=== PATIENT | female | born 1955 | race Caucasian/White ===

== ENCOUNTER → 2017-06-13 08:04 | Outpatient (CLI) | payer MEDICARE, MEDICAID, SELFPAY ==
--- NOTE | 2017-06-13 08:07 | US_ITS ---
STUDY: ABDOMINAL ULTRASOUND REASON FOR EXAM: Female, 61 years old. Elevated liver function tests. Thrombocytopenia. History of breast cancer. TECHNIQUE: Transabdominal ultrasound was performed with real-time and static david scale imaging. TECHNICAL QUALITY: Limited. Examination limited due to obesity. COMPARISON: None. FINDINGS: Liver: The liver measures 17.2 cm. There is increased echogenicity consistent with fatty infiltration. The bile ducts are within normal limits. There is hepatic color flow. The direction of portal flow is hepatopetal. There is no demonstrated mass lesion. Portal vein measurement: Gallbladder: The patient is status post cholecystectomy. Common Bile Duct (C.B.D.): The common bile duct measures 6.0 mm. Pancreas: Normal size of the head, body and tail of the pancreas. There is normal echogenicity of the pancreas. There is no demonstrated pancreatic mass or cyst. Spleen: There is splenomegaly. The spleen measures 13.9 cm x 7.8 cm x 6.7 cm. Right Kidney: Normal size of the right kidney. The right kidney measures 13.4 cm x 5.8 cm x 5.2 cm. Normal renal cortex. The right cortex measures 1.4 cm. There is no demonstrated renal mass or cyst. There is no right hydronephrosis. Left Kidney: Normal size of the left kidney. The left kidney measures 12.0 cm x 5.6 cm x 5.9 cm. Normal renal cortex. The left cortex measures 2.0 cm. There is no demonstrated renal mass or cyst. There is no left hydronephrosis. Aorta: Unremarkable. I.V.C.: The IVC is patent. There is no ascites. US/Abdomen Complete IMPRESSION: Fatty infiltration of the liver. Splenomegaly. Electronically Signed: Tima Aguilar MD at 10:06 EST Tel [phone], Service support ,
== END ==
PROVIDERS: Family Provider Family Medicine; PCP Family Medicine; Visit Provider Nurse Practitioner Family
DX: C50.912 Malignant neoplasm of unspecified site of left female breast (principal); D69.6 Thrombocytopenia, unspecified; R79.89 Other specified abnormal findings of blood chemistry
CPT/HCPCS: 76700

== ENCOUNTER → 2017-06-25 12:18 | Outpatient (CLI) | payer MEDICARE, MEDICAID, SELFPAY ==
--- NOTE | 2017-06-25 12:21 | HPBI_ITS ---
MAMMOGRAPHY - BILATERAL SCREENING REASON FOR EXAM: Female, 61 years old. Routine annual screening examination. PERTINENT HISTORY: Personal history of breast cancer. History of prior left lumpectomy with radiation treatment. Mother with breast cancer. TECHNIQUE: Digital bilateral breast gavi (3D mammographic acquisition) in the CC and MLO projections. 2-D mediolateral oblique (MLO) and craniocaudad (CC) views of both breasts were obtained. CAD: Full Field Digital Mammography with Computer Added Detection was performed. COMPARISON: Comparison is made with prior study dated June 08, 2016 and June 04, 2015. FINDINGS: Breast Composition: There are scattered areas of fibroglandular density. There are no dominant masses or suspicious calcifications. Once again, the patient is status post left lumpectomy with resultant postoperative changes in the deep upper lateral aspect of the left breast. No other significant abnormalities are identified. There has been no significant change since the prior study. HPBI/SCREENING MAMM (CAD), BILAT IMPRESSION: Stable bilateral screening mammogram. Yearly follow-up mammogram recommended. (A) ASSESSMENT CATEGORY: BIRADS Category 2: Benign. A letter regarding these results will be sent to the patient by the facility within 30 days. Approximately 10% of breast cancers are not detected by mammography. A normal mammogram should not delay biopsy of a clinically suspicious abnormality. [id number] Electronically Signed: Tima Aguilar MD at 10:05 EDT Tel [phone], Service support ,
== END ==
PROVIDERS: Family Provider Family Medicine; PCP Family Medicine; Visit Provider Family Medicine
DX: Z12.31 Encounter for screening mammogram for malignant neoplasm of breast (principal)
CPT/HCPCS: 77063; 77067

== ENCOUNTER → 2017-10-04 10:57 | Outpatient (CLI) | payer MEDICARE, MEDICAID, SELFPAY ==
--- NOTE | 2017-10-04 12:01 | RAD_ITS ---
STUDY: X-RAY CHEST REASON FOR EXAM: Female, 61 years old. COUGH X 1 MO. W/ MOIST PHLEGM TECHNIQUE: PA and lateral views of the chest. COMPARISON: March 22, 2017 FINDINGS: There is mild bibasilar atelectasis.. There is no demonstrated pleural abnormality. Normal size heart. Normal mediastinum and tara. Normal visualized pulmonary arteries. Normal visualized aortic arch and descending thoracic aorta. There are diffuse degenerative changes of the visualized thoracic spine. There is a stable thoracic compression fracture. Normal visualized ribs, clavicles, and shoulders. There is no demonstrated abnormality of the visualized soft tissue structures of the upper abdomen. RAD/Chest PA and Lateral IMPRESSION: There is mild bibasilar atelectasis.. Electronically Signed: Ebony Nelson MD at 13:24 EDT , Service support ,
[2017-10-04 12:54] LABS: ALB/GLOB Ratio 0.8 RATIO (0.9-2.4); AST(SGOT) 93 U/L (15-37); Alanine Aminotransfer ALT/SGPT 97 U/L (13-56); Albumin, Serum 3.5 g/dL (3.2-5.0); Alkaline Phosphatase 77 U/L (45-117); Anion Gap 12 (5-15); BUN 46 mg/dL (7-18); BUN/Creat Ratio 36.2 RATIO (10-20); Chloride 101 mmol/L (98-107); Creatinine, Serum 1.27 mg/dL (0.55-1.02); EST Glomerular Filtration Rate 45 mL/min (>60); Est Glom Filt Rate - Afr Amer 55 mL/min (>60); Globulin 4.2 g/dL (2.2-4.2); Glucose 152 mg/dL (74-106); Potassium 3.4 mmol/L (3.5-5.1); Protein, Total 7.7 g/dL (6.4-8.2); Sodium Level 141 mmol/L (136-145)
[2017-10-04 12:58] LABS: Microalbumin,Random Urine 86.6 mg/L (NO RANGE EST.); Microalbumin:Creatinine Ratio 63.2 mg/g CRE (<30 mg/g CRE)
== END ==
PROVIDERS: Family Provider Family Medicine; PCP Family Medicine; Visit Provider Family Medicine
DX: E11.9 Type 2 diabetes mellitus without complications (principal); J44.9 Chronic obstructive pulmonary disease, unspecified
CPT/HCPCS: 36415; 71046; 80053; 82043; 82570

== ENCOUNTER → 2018-06-22 14:43 | Outpatient (CLI) | payer MEDICARE, SELFPAY ==
[2018-06-22 14:45] LABS: Bacteria 0 SEEN /hpf (None Seen); Mucous, Urine 0 SEEN /hpf (<or=2+); Red Blood Cells-Urine 0 SEEN /hpf (0-5)
[2018-06-22 17:59] LABS: Color, Urine Yellow (Yellow); Glucose, Dipstick Normal (Normal); Ketone-Dipstick Negative (Negative); Leukocyte Esterase-Dipstick 500 /ul (Negative); Nitrite-Dipstick Negative (Negative); Occult Blood-Urine Negative /ul (Negative); Protein-Dipstick Negative (Negative); Specific Gravity, Urine 1.015 (1.002-1.030); Urine Bilirubin Dipstick Negative (Negative); Urine Clarity Clear (Clear); Urine Urobilinogen Normal (Normal)
[2018-06-22 18:05] LABS: Squamous Epithelial Cells - UA 0-5 SEEN /hpf (5-10); White Blood Cells 5-10 SEEN /hpf (0-5)
[2018-06-22 18:06] LABS: Hyaline Cast 0-5 SEEN /lpf (0-5)
== END ==
PROVIDERS: Family Provider Family Medicine; PCP Family Medicine; Visit Provider Family Medicine
DX: R30.0 Dysuria (principal)
CPT/HCPCS: 81001; 87086; 87088

== ENCOUNTER → 2018-06-27 14:43 | Outpatient (CLI) | payer MEDICARE, MEDICAID, SELFPAY ==
[2017-12-08 12:57] VITALS: BMI 46.3
--- NOTE | 2018-06-27 14:46 | BI_ITS ---
MAMMOGRAPHY - BILATERAL SCREENING REASON FOR EXAM: Female, 62 years old. Routine annual screening examination. PERTINENT HISTORY: Personal history of breast cancer. Prior left lumpectomy with radiation treatment. Mother with breast cancer. TECHNIQUE: Digital bilateral breast gavi (3D mammographic acquisition) in the CC and MLO projections. 2-D mediolateral oblique (MLO) and craniocaudad (CC) views of both breasts were obtained. CAD: Full Field Digital Mammography with Computer Added Detection was performed. COMPARISON: Comparison is made with prior study dated June 25, 2017 and June 08, 2016. FINDINGS: Breast Composition: There are scattered areas of fibroglandular density. There are no dominant masses or suspicious calcifications. Once again, the patient status post left lumpectomy with resultant postoperative changes in the deep upper lateral aspect of the left breast. There is been no change. No other significant abnormalities are identified. There has been no significant change since the prior study. BI/SCREENING MAMM (CAD), BILAT IMPRESSION: Stable bilateral screening mammogram. Yearly follow-up mammogram recommended. (A) ASSESSMENT CATEGORY: BIRADS Category 2: Benign. A letter regarding these results will be sent to the patient by the facility within 30 days. Approximately 10% of breast cancers are not detected by mammography. A normal mammogram should not delay biopsy of a clinically suspicious abnormality. [id number] Electronically Signed: Tima Aguilar, at 8:57 EDT , Service support ,
--- NOTE | 2018-06-27 14:48 | BD_ITS ---
STUDY: DUAL ENERGY X-RAY ABSORPTIOMETRY / DXA REASON FOR EXAM: Female, 62 years old. The patient is postmenopausal. History of breast cancer. Loss of height. TECHNIQUE: Bone Mineral Density (BMD) measurements of lumbar spine and bilateral hips were obtained. COMPARISON: Comparison is made with prior study dated June 09, 2016. FINDINGS: Lumbar Spine (L1-L4): g/cm2 (1.234) / T-score (0.4) / Z-score (1.8) Findings are suggestive of normal bone density with a low fracture risk. Left Femur Total: g/cm2 (1.010) / T-score (0.0) / Z-score (1.1) Left Femoral Neck: g/cm2 (1.055) / T-score (0.1) / Z-score (1.5) Right Femur Total: g/cm2 (1.005) / T-score (0.0) / Z-score (1.0) Right Femoral Neck: g/cm2 (1.085) / T-score (0.3) / Z-score (1.7) The T-Scores on the most recent prior examination were: Lumbar Spine (L1-L4): There has been worsening of bone density since the previous examination. Left Femur Total: which represents an improvement of 3.4%. Right Femur Total: which represents an improvement of 0.4%. BD/Dexa Bone Density Study IMPRESSION: The patient is considered normal as outlined below according to World Daniel Organization (WHO) criteria with a low fracture risk. There has been improvement of bone density since the previous examination. Reference Information: The T-score is the number of standard deviations above or below the standard which is normal for young adults at their peak bone mineral density. The World Health Organization (WHO) interprets the T-scores as follows: Above -1 Normal bone density Between -1 and -2.5 Osteopenia Equal to / or below -2.5 Osteoporosis As a practical clinical guideline, osteopenia may be graded as follows: Mild -1 through -1.5 Moderate -1.6 through -2.0 Severe -2.1 through -2.4 The Z-score is the number of standard deviations above or below age-matched controls. A Z-score of less than -1.5 would be considered abnormal. References: 1. NIH Osteoporosis and Related Bone Diseases http://www.osteo.org 2. International Society for Clinical Densitometry http://www.iscd.org 3. National Osteoporosis Foundation http://www.nof.org Electronically Signed: Tima Aguilar, at 16:08 EDT , Service support ,
== END ==
PROVIDERS: Family Provider Family Medicine; PCP Family Medicine; Referring Provider Nurse Practitioner Family; Visit Provider Nurse Practitioner Family
DX: Z12.31 Encounter for screening mammogram for malignant neoplasm of breast (principal); Z13.820 Encounter for screening for osteoporosis; Z78.0 Asymptomatic menopausal state; Z79.811 Long term (current) use of aromatase inhibitors
CPT/HCPCS: 77063; 77067; 77080

== ENCOUNTER → 2018-09-21 13:38 | Outpatient (CLI) | payer MEDICARE, SELFPAY ==
[2018-07-31 13:05] VITALS: BMI 45.3
--- NOTE | 2018-09-21 13:42 | ECHOCS_ITS ---
Reason For Study: PHTN Procedure This was a 2D Doppler, Color Flow transthoracic echocardiogram. Unable to perform strain analysis d/t poor acoustic windows. Contrast injection was performed. Poor parasternal images. Technically difficult study d/t body habitus. Exam performed in department. Left Ventricle Normal size and thickness. The estimated ejection fraction is 60 %. Stage 1 diastolic dysfunction. No regional wall motion abnormalities noted. Right Ventricle Normal size and thickness. Normal systolic function. Atria The left atrium is mildly enlarged. Normal right atrium. Normal atrial septum. Mitral Valve The mitral valve is structurally normal. No prolapse or stenosis seen. Tricuspid Valve Normal tricuspid valve. Unable to estimate RV systolic pressure due to inadequate jet, pulmonary artery pressure probably normal. Aortic Valve Normal aortic valve. Trisinus/trileaflet aortic valve. Pulmonic Valve The pulmonic valve is not well visualized. Great Vessels Normal aortic root. Normal arch. Normal inferior vena cava. No collapse of the inferior vena cava. Pericardium/Pleural No pericardial effusion. Medication 22 gauge I.V. with prn adaptor inserted into right arm. Diluted definity 4ml given slow IV push to enhance endocardial definition. MMode/2D Measurements & Calculations LVIDd: 4.3 cm IVSd: 0.71 cm Ao root diam: 3.2 cm LVIDs: 3.1 cm LVPWd: 0.92 cm RVDd: 2.7 cm FS: 28.6 % LAV(MOD-bp): 66.6 ml EDV(MOD-sp4): 91.4 ml EDV(MOD-sp2): 66.7 ml LAV(MOD-bp) Indexed: 26.4 ml/m2 ESV(MOD-sp4): 32.9 ml EF(MOD-sp2): 55.8 % LAV(MOD-sp2): 69.7 ml EF(MOD-sp4): 64.0 % LAV(MOD-sp4): 67.0 ml SV(MOD-sp4): 58.5 ml SV(MOD-sp2): 37.2 ml LA A4 area: 22.6 cm2 LA dimension(2D): 3.6 cm RA A4 area: 14.7 cm2 Time Measurements MV dec time: 0.25 sec Doppler Measurements & Calculations MV E max horacio: 74.3 cm/sec Lat Peak E' Horacio: 5.8 cm/sec Med Peak E' Horacio: 4.1 cm/sec MV A max horacio: 99.7 cm/sec E/E' lat: 12.9 E/E' med: 17.9 MV E/A: 0.75 Ao V2 max: 133.2 cm/sec LV V1 max: 110.4 cm/sec Ao max P.1 mmHg LV V1 max P.9 mmHg Interpretation Summary The estimated ejection fraction is 60 %. Stage 1 diastolic dysfunction. Unable to estimate RV systolic pressure due to inadequate jet, pulmonary artery pressure probably normal. Compared to echo report dated 01/02/2016, LV function has remained the same. Consider RHC if clinically indicated for pulmonary HTN. The study was technically difficult. Contrast injection was performed. Ordering Physician: Quincy Hemphill Referring Physician: SHALA TRAN Performed By: Sofia Hester, NICOLA, RVT
== END ==
PROVIDERS: Family Provider Family Medicine; PCP Family Medicine; Referring Provider Internal Medicine Cardiovascular Disease; Visit Provider Internal Medicine Cardiovascular Disease
DX: I27.20 Pulmonary hypertension, unspecified (principal)
CPT/HCPCS: 93306; Q9957; A4216; C8929

== ENCOUNTER → 2018-10-31 12:22 | Outpatient (CLI) | payer MEDICARE, SELFPAY ==
[2018-10-12 11:31] VITALS: BMI 45.3
--- NOTE | 2018-10-31 12:23 | US_ITS ---
STUDY: ULTRASOUND TRANSVAGINAL CLINICAL: Female, 62 years old. Postmenopausal bleeding TECHNIQUE: Transabdominal and Transvaginal COMPARISON: None. FINDINGS: Normal uterine size measuring 4.7 x 3.5 x 1.8 cm. There are no myometrial masses. Normal endometrial thickness measuring 4 mm. There are no endometrial masses, and there is no fluid in the endometrial cavity. The endometrium is hyperechoic. Normal right ovary, measuring 2.2 x 2.1 x 1.3 cm. Normal left ovary, measuring 2.1 x 1.7 x 1.5 cm. There is no free fluid in the pelvis. Polycystic ovary disease: No. US/Pelvic (Non ) IMPRESSION: Cervical nabothian cyst. The uterus and ovaries appear within normal limits. Electronically Signed: Abhijit Dykes MD at 17:32 EDT , Service support ,
--- NOTE | 2018-10-31 12:23 | US_ITS ---
STUDY: ULTRASOUND TRANSVAGINAL CLINICAL: Female, 62 years old. Postmenopausal bleeding TECHNIQUE: Transabdominal and Transvaginal COMPARISON: None. FINDINGS: Normal uterine size measuring 4.7 x 3.5 x 1.8 cm. There are no myometrial masses. Normal endometrial thickness measuring 4 mm. There are no endometrial masses, and there is no fluid in the endometrial cavity. The endometrium is hyperechoic. Normal right ovary, measuring 2.2 x 2.1 x 1.3 cm. Normal left ovary, measuring 2.1 x 1.7 x 1.5 cm. There is no free fluid in the pelvis. Polycystic ovary disease: No. US/Transvaginal Non- IMPRESSION: Cervical nabothian cyst. The uterus and ovaries appear within normal limits. Electronically Signed: Abhijit Dykes MD at 17:32 EDT , Service support ,
== END ==
PROVIDERS: Family Provider Family Medicine; PCP Family Medicine; Referring Provider Urology; Visit Provider Urology
DX: N95.0 Postmenopausal bleeding (principal)
CPT/HCPCS: 76830; 76856

== ENCOUNTER → 2019-01-09 12:41 | Outpatient (CLI) | payer MEDICARE, SELFPAY ==
[2018-10-12 11:31] VITALS: BMI 45.3
[2018-12-12 13:23] VITALS: BMI 45.3
--- NOTE | 2019-01-09 12:43 | CT_ITS ---
STUDY: CT ABDOMEN AND PELVIS WITH CONTRAST REASON FOR EXAM: Female, 63 years old. Breast cancer restaging RADIATION DOSAGE (If Supplied By Facility): CTDIvol = ( 18.56 ) mGy, DLP = ( 2565.13 ) mGycm TECHNIQUE: Transaxial images were obtained from the dome of the diaphragm to the symphysis pubis with oral contrast. Oral and amp; IV Readi-CAT and amp; 100mL Isovue-300 100 was administered. Sagittal and coronal images were reconstructed. Individualized dose optimization techniques were used for this CT. COMPARISON: None. FINDINGS: There is a right lung base pulmonary nodule measuring 5.6 mm. , When compared to the more recent study there is several calcific nodular densities within the right lower lobe which will be described on the dedicated CT scan of the chest. The visualized portions of the heart are within normal limits. Normal liver. Normal gallbladder and extrahepatic biliary system. Normal spleen. Normal pancreas. Normal bilateral adrenal glands. Normal right kidney. Normal left kidney. Normal visualized stomach. Normal small intestine. There is mild to moderate stool in the colon. There is diverticulosis without visualized diverticulitis. The appendix is visualized and appears normal. The aorta is partially calcified. Normal inferior vena cava. Normal retroperitoneum. Normal urinary bladder. There is atrophy of the uterus. Normal abdominal wall. There is chronic appearing loss of height at L1 with osteophyte formation. There is anterior wedging of at least 50%. At each level there is degenerative disc disease with neural foramina narrowing. At L3-L4 L4-L5 there is facet arthropathy severe neural foramina narrowing severe central stenosis. See image #63 and 72 at L5-S1 there is a broad disc bulge facet arthropathy. There is degenerative change of the SI joints. There is moderate to severe narrowing of the right greater than left hip joints. No visualized lytic or sclerotic lesions. Axial views. CT/Abdomen/Pelvis WITH Contrast IMPRESSION: At the time of this study the comparison CT chest August 31, 2013 is unavailable. This should be obtained and used to compare for the CT scan of the chest. There are multiple small nodules within the right lower lobe that accompany the one that is seen on the CT scan of the abdomen and pelvis. Prior study CT scan chest August 31, 2013 describes nodules. Comparison is warranted. [id number] constipation. Diverticulosis no evidence of diverticulitis. Advanced degenerative change of the thoracolumbar spine as detailed above. Chronic loss of height at the level of L1. No visualized metastatic disease to the liver or adrenal glands. No visualized significant mesenteric or retroperitoneal lymphadenopathy. Electronically Signed: Joy Valdivia MD at 17:39 EDT Tel , Service support ,
--- NOTE | 2019-01-09 12:43 | CT_ITS ---
STUDY: CT CHEST WITH CONTRAST REASON FOR EXAM: Female, 63 years old. Restaging breast cancer RADIATION DOSAGE (If Supplied By Facility): CTDIvol = ( 18.56 ) mGy, DLP = ( 2565.13 ) mGycm TECHNIQUE: Transaxial imaging was performed following intravenous administration of IV Isovue 300 100. Multiplanar coronal and sagittal images were reformatted. Individualized dose optimization techniques were used for this CT. COMPARISON: August 31, 2013 CT scan chest FINDINGS: There is a focus of scarring in the left apex image #33 which could be associated with history of radiation therapy. Within the posterior aspect of the left breast tissue there is a focus of soft tissue density measuring 2.1 x 1.3 cm which is deep to a skin fold. The scarring in the left upper lobe is in a similar location or level which may indicate radiation change. However there is a focal nodular density within the left upper lobe that measures 7.1 x 7.8 mm image #43 axial views. There are small nodular densities within the left lower lobe ranging in size from 4.4 mm to 5.3 mm. Within the right lower lobe there is a small nodule that measures 7.3 mm. There is no demonstrated pleural abnormality. There is trace coronary calcification. There is a trace pericardial effusion. Normal mediastinum. Normal hilar regions. Normal enhanced pulmonary arteries. Normal aorta arch and descending thoracic aorta. There are multi-level degenerative changes of the thoracic spine. There is no demonstrated abnormality of the visualized upper abdomen. CT/Chest WITH Contrast IMPRESSION: There is scarring in the left apex which may be associated with radiation change noting that there is a focus of probable scarlike density within the left breast tissue which may represent a focus of prior radiation change. This left breast focus is smaller than the prior study August 31, 2013 when it measured 6.5 x 2.7 cm. Recommend correlation with mammographic findings to evaluate for stability of the 2.1 x 1.3 cm density in the left breast. There are visualized focal filling defects within the left upper lobe bronchi see image #54. There is a focal nodular appearing filling defect image #54 with a opacified appearance of the associated bronchus of the left upper lobe. Again this could be related to scarring endobronchial mass or infiltrative process is not excluded. These were not seen on the prior study. Recommend consideration for bronchoscopy. . There are multiple nodular densities within the left lower lobe. Only one appears stable when compared to the prior study that is seen in the left lower lobe. Otherwise there are numerous nodular densities that were not seen on the prior study or larger which raises concern for the possibility of metastatic disease in this setting. Recommend consideration for PET scan. Electronically Signed: Joy Valdivia MD at 1:25 EDT Tel , Service support ,
[2019-01-09 12:55] LABS: CREATININE FINGERSTICK 1.3 mg/dL (0.55-1.02)
== END ==
PROVIDERS: Family Provider Family Medicine; PCP Family Medicine; Referring Provider Internal Medicine Medical Oncology; Visit Provider Internal Medicine Medical Oncology
DX: Z01.812 Encounter for preprocedural laboratory examination (principal); C50.812 Malignant neoplasm of overlapping sites of left female breast; K59.00 Constipation, unspecified; Z92.3 Personal history of irradiation
CPT/HCPCS: 71260; 74177; Q9967; A4216

== ENCOUNTER 2019-02-06 09:18 | Day surgery (SDC) | payer MEDICARE, SELFPAY ==
[2019-01-22 15:03] VITALS: BMI 45.1
--- NOTE | 2019-02-06 | IMM_PTH ---
PATIENT: VIOLETA RODRIGUEZ LOC: [facility] U#:[id number] AGE/SX: 63/F ROOM: RE02/06/[address]: Dr. Jaylene Akhtar MD : 1955 BED: DIS: 02/06/2019 SPEC #: [id number] RECD: 02/07/19 13:09 STATUS: MIRA REQ #: [id number] [place]: 02/06/19 00:[address]: Jaylene Akhtar DEPT: IMMUNOHISTOCHEMISTRY RECD BY: Lexie Faustin ENTERED: 02/07/19 13:09 SP TYPE: IMMUNO OTHR DR: Dr. Agnes Hernandez, DO Tissues: Endometrium, NOS Procedures: p16 (initial) KI-67 (add) PHYSICIAN & INSTITUTION [place] [id number] SPECIMEN INFORMATION: Tissue Source: Endometrial curettings Clinical Info: Postmenopausal bleeding Specimen Number: [id number] CPT code: 52251, 20247 METHODOLOGY: Deparaffinized sections of prefer/formalin-fixed tissue or PAP/DQ stained slides are incubated with monoclonal/polyclonal antibodies/oligonucleotide probes. Localization is made via biotin free immunoperoxidase method. Appropriate controls are performed and reacted as expected. Results on target cell population are indicated in the following table: RESULTS: ANTIBODY / CLONE RESULT P16 (E6H4) noncontributory Ki-67 (30-9) noncontributory These tests were developed and their performance characteristics determined by [facility]. They may not have been cleared or approved by the U.S. Food and Drug Administration. The FDA has determined that such clearance or approval is not necessary. The above immunohistochemical/dualISH markers are ordered and reviewed by the Pathologist. INTERPRETATION: Endometrial curettings: Fragment of benign endometrial tissue consistent with atrophic endometrium. Fragments of benign ecto- and endocervical epithelium. See comment. GABO:dax 02/08/19 Comment: The fragment of squamous epithelium with transitional cell metaplasia is not present in the IHC slides.
--- NOTE | 2019-02-06 05:30 | PCM.HPOB.BLA ---
- Problem List (1) Postmenopausal bleeding Status: Acute Comment: plan d and c hysteroscopy, may be combo case with cj if she recommends surgery? (2) History of left breast cancer Status: Chronic History and Physical Date of Admission: 02/06/19 Intake Vital Signs 01/22/19 Height 5 ft 9 in 01/22/19 Weight: 314 lb 01/22/19 Body Mass Index (BMI) 46.3 01/22/19 Blood Pressure 110/64 Intake Visit Reasons: Discuss D&C Chief Complaint: discuss D&C Senior Payroll Administrator Required: No Is patient in pain?: No Allergies codeine Allergy (Severe, Verified 01/22/19 14:43) MEMORY LOSS egg Allergy (Severe, Verified 01/22/19 14:43) FLU SYMTOPMS, WEEKNESS morphine Allergy (Severe, Verified 01/22/19 14:43) CARDIAC ARREST venom-honey bee [bee venom (honey bee)] Allergy (Severe, Verified 01/22/19 14:43) STOP BREATHING vortioxetine [From Brintellix] Allergy (Severe, Verified 01/22/19 14:43) LEGS FELT ON FIRE acetaminophen [From Vicodin] Allergy (Unknown, Verified 01/22/19 14:43) Unknown aspirin Allergy (Unknown, Verified 01/22/19 14:43) Unknown hydrocodone [From Vicodin] Allergy (Unknown, Verified 01/22/19 14:43) PATEINT DOES NOT REMEMBER hydrocodone bitartrate [From Vicodin] Allergy (Unknown, Verified 01/22/19 14:43) PATIENT DOES NOT REMEMBER Penicillins Allergy (Unknown, Verified 01/22/19 14:43) Hives propoxyphene napsylate [From Darvocet-N 100] Allergy (Unknown, Verified 01/22/19 14:43) PATEINT DOES NOT REMEMBER FLU SHOT Allergy (Severe, Uncoded 01/22/19 14:43) BECARE DEHYDRATED Medications Albuterol Sulfate [Proventil Hfa] 6.7 gm IH Q4H PRN 07/12/13 [History Confirmed 01/22/19] Atorvastatin Calcium [Lipitor] 40 mg PO QHS 07/12/13 [History Confirmed 01/22/19] Calcium Carbonate [Tums] 500 mg PO DAILY@0800 07/12/13 [History Confirmed 01/22/19] Multivit-Min/FA/Lycopene/Lut [Centrum Silver Tablet] 1 ea PO DAILY 07/12/13 [History Confirmed 01/22/19] Ranitidine [Zantac] 150 mg PO DAILY 07/12/13 [History Confirmed 01/22/19] Valsartan/Hydrochlorothiazide [Diovan Hct 80-12.5 MG Tablet] 1 tab PO DAILY 07/12/13 [History Confirmed 01/22/19] Aripiprazole [Abilify] 2 mg PO DAILY 01/27/16 [History Confirmed 01/22/19] Doxepin HCl [Sinequan] 75 mg PO QHS 01/27/16 [History Confirmed 01/22/19] Meclizine HCl [Antivert] 25 mg PO TID PRN PRN 01/27/16 [History Confirmed 01/22/19] [place]-3 Fatty Acids/Fish Oil [Fish Oil 1,000 mg Capsule] 2 ea PO BID 01/27/16 [History Confirmed 01/22/19] Diclofenac [Voltaren] 75 mg PO BIDCM 06/08/17 [History Confirmed 01/22/19] glipiZIDE [Glucotrol] 5 mg PO DAILY@0730 06/08/17 [History Confirmed 01/22/19] Gabapentin [Neurontin] 1,200 mg PO TIDCM 06/15/17 [History Confirmed 01/22/19] Oxybutynin Chloride [Ditropan Xl] 5 mg PO DAILY 06/15/17 [History Confirmed 01/22/19] desvenlafaxine ER 50 mg tablet,extended release 24 hour 100 mg PO DAILY tab 07/21/17 [History Confirmed 01/22/19] metformin ER 750 mg tablet,extended release 24 hr 1,000 mg PO BID 07/21/17 [History Confirmed 01/22/19] Mirabegron [Myrbetriq] 25 mg PO 12/08/17 [History Confirmed 01/22/19] furosemide 20 mg tablet 40 mg PO DAILY tab 07/31/18 [History Confirmed 01/22/19] Colchicine [Mitigare] 0.6 mg PO 10/12/18 [History Confirmed 01/22/19] Indomethacin 50 mg PO TID 10/12/18 [History Confirmed 01/22/19] mirabegron ER 50 mg tablet,extended release 24 hr 50 mg PO DAILY 12/12/18 [History Confirmed 01/22/19] Is last menstrual period known: No Post menopausal: Yes Patient : No : No PFSH Medical History Hypertension (Chronic) Hyperlipidemia (Chronic) Bipolar disorder (Chronic) Bowel obstruction (Chronic) COPD (chronic obstructive pulmonary disease) (Chronic) Depression (Chronic) Diabetes mellitus (Chronic) GERD (gastroesophageal reflux disease) (Chronic) Hernia (Chronic) Sleep apnea (Chronic) Breast cancer (Resolved) Surgical History History of cholecystectomy (Chronic) History of dental surgery (Chronic) History of hernia repair (Chronic) History of left heart catheterization (Chronic 01/28/16) History of lumpectomy of left breast (Chronic) LEFT EYE SURGERY (Chronic) Family History Mother Breast cancer, Onset Age: 65 Thyroid disorder Glaucoma Diabetes Hypertension Father , Age 49 (Mi age 48) CAD (coronary artery disease) Myocardial infarction, Onset Age: 48 Diabetes Uncle , of Myocardial infarctions CAD (coronary artery disease) Myocardial infarction Grandmother CVA (cerebral vascular accident) Social History (Updated 01/22/19 @ 15:03 by Jaylene Akhtar MD) number of children: 0 current occupational status: disabled Smoking Status: Former smoker alcohol intake: current alcohol intake frequency: holidays/special occasions only seatbelt use: always do you feel safe at home: Yes HPI Discuss D&C: Details: VIOLETA RODRIGUEZ is a 63 year old who presents for fu of postmenopausal bleeding. she had one episode of brwon discharge. she has seen dr corona in the past. she has an appointment with her next month with her. she is wnting to have evaluation Female Reproductive History Questions: Sexually active: No Pregancy History 0 Elective abortions Hx Para Spontaneous abortions Hx # Term Pregnancies Ectopic pregnancies Hx # Pregnancies Multiple births # of living children ROS Const Constitutional: Denies fatigue, fever(s), headache(s), increased appetite, poor appetite, weight gain or weight loss ENT ENT: Denies dry mouth GI GI: Reports as per HPI; denies abdominal pain, constipation, nausea or vomiting : Denies nipple discharge Skin Skin/Breast: Denies hair loss, change in hair, dry skin, breast lump, breast pain, breast skin changes or nipple discharge Exam Const General: cooperative, healthy appearing, comfortable, no acute distress, well developed HENMT Head: normal to inspection, normocephalic Ears: hearing grossly normal bilaterally, external ears normal Nose: external nose normal, nares normal Face and sinus: normal facial exam Neck Neck: normal visual inspection, no lymphadenopathy, trachea midline Thyroid: thyroid normal Resp Effort & Inspection: normal respiratory effort Musc Other: gross motor intact no deficits, full bilateral strength Skin General: no rashes or lesions noted Neuro Motor: muscle tone normal throughout Assessment & Plan Problems 1. Postmenopausal bleeding N95.0 plan d and c hysteroscopy, may be combo case with cj if she recommends surgery? Plan After discussing the patient's diagnosis and treatment plan options, patient wishes to proceed with surgical management. I have discussed with the patient the risks, benefits, and alternatives of the procedure which include but are not limited to risks of anesthesia, bleeding, infection, possible damage to bowel, bladder, or surrounding vasculature which could lead to additional surgery to evaluate any complications. Patient agrees to procedure and wishes to proceed. ACOG/uptodate references given for additional information regarding procedure. Coding Level of Care Code Off vis,est,level 4 Diagnoses Postmenopausal bleeding N95.0
--- NOTE | 2019-02-06 09:35 | EKG12_ITS ---
Test Reason : PRE-OP Blood Pressure : / mmHG Vent. Rate : 087 BPM Atrial Rate : 087 BPM P-R Int : 184 ms QRS Dur : 116 ms QT Int : 386 ms P-R-T Axes : 045 -43 011 degrees QTc Int : 464 ms Normal sinus rhythm Left axis deviation Incomplete left bundle branch block Abnormal ECG When compared with ECG of 12-JUL-2013 12:57, Incomplete left bundle branch block is now Present Borderline criteria for Lateral infarct are no longer Present Confirmed by DAIN CORDOBA, FRANCISCO ([id number]), supervising editor trailer ZULAY ORTEZ ([id number]) on 02/09/2019 11:40:10 AM Referred By: Jaylene Akhtar Confirmed By:FRANCISCO GAUTAM MD
[2019-02-06 09:47] VITALS: BP 148/84; PULSE 87; RESP 16; TEMP 36.5; O2SAT 93; BMI 45.7
[2019-02-06] MEDS: Lactated Ringers 1,000 ML 100 ML IV (09:56)
[2019-02-06 10:07] LABS: Hematocrit 38.2 % (37-47); Hemoglobin 12.6 g/dL (12.0-15.0); Mean Corpuscular Hgb 29.4 pg (27.0-32.0); Mean Corpuscular Volume 89.3 fL (81-99); Mean Platelet Vol. 9.9 fl (6.2-12.0); Platelet Count 174 K/mm3 (150-450); RBC Distribution Width CV 13.2 % (11.6-14.6); RBC Distribution Width SD 43.1 fl (35.1-43.9); Red Blood Count 4.28 M/mm3 (4.2-5.4); White Blood Count 5.6 K/mm3 (4.4-11.0)
[2019-02-06 10:28] LABS: Anion Gap 10 (5-15); BUN 40 mg/dL (7-18); BUN/Creat Ratio 35.1 RATIO (10-20); Calcium,Total 9.4 mg/dL (8.5-10.1); Chloride 102 mmol/L (98-107); Creatinine, Serum 1.14 mg/dL (0.55-1.02); EST Glomerular Filtration Rate 51 mL/min (>60); Est Glom Filt Rate - Afr Amer 62 mL/min (>60); Estimated Creatinine Clearance 52.79 ml/min; Glucose 135 mg/dL (74-106); Potassium 3.6 mmol/L (3.5-5.1); Sodium Level 140 mmol/L (136-145)
[2019-02-06 10:36] LABS: Bedside Glucose 136 mg/dL (70-110)
--- NOTE | 2019-02-06 10:45 | EMB_PTH ---
PATIENT: VIOLETA RODRIGUEZ LOC: [facility] [place] U#:[id number] AGE/SX: 63/F ROOM: RE02/06/[address]: Dr. Jaylene Akhtar MD : [id number] BED: DIS: 02/06/2019 SPEC #: [id number] RECD: 02/06/19 14:27 STATUS: MIRA GAMALIEL #: [id number] LAWRENCE: 02/06/19 10:[address]: Jaylene Akhtar DEPT: SURGICAL PATHOLOGY RECD BY: Rosa Garcia ENTERED: 02/06/19 14:40 SP TYPE: ENDOM BX/C LEEROY DR: Dr. Agnes Hernandez DO Tissues: Endometrium, NOS Procedures: Surgery Specimen Level IV HEADER OPERATION: Hysteroscopy, dilation and curettage PRE-OP DIAGNOSIS: Postmenopausal bleeding TISSUE SUBMITTED: Endometrial curettings MICROSCOPIC DIAGNOSIS Endometrial curettings: Strips of benign endometrial epithelium and superficial fragments of benign endometrial tissue, consistent with atrophic endometrium. Fragments of benign ecto- and endocervical epithelium with focal transitional cell metaplasia. Negative for dysplasia. See comment. GABO:dax 02/07/19 COMMENT Immunohistochemistry ([id number]) for surrogate HPV marker (p16) is non-contributory, the fragment of squamous epithelium with transitional cell metaplasia is not present in the IHC slides. Correlation with clinical findings and appropriate follow up are necessary. MICROSCOPIC DESCRIPTION Slides are reviewed. GROSS DESCRIPTION Received in fixative is one container labeled with the patient's name and designated endometrial curettings. The specimen consists of multiple fragments of hemorrhagic mucoid tissue that in aggregate measure 2.5 x 2.5 x <0.1 cm. The specimen is totally submitted in one cassette. / GABO:dax 02/06/19 TC:5 CPT: 75796
--- NOTE | 2019-02-06 11:55 | PCM.OPRPT ---
Problem List (1) Postmenopausal bleeding Status: Acute Comment: plan d and c hysteroscopy, may be combo case with cj if she recommends surgery? (2) History of left breast cancer Status: Chronic Report of Operation Date of Procedure: 02/06/19 Pre-Operative Diagnosis: postmenopausal bleeding Post-Operative Diagnosis: same Surgery/Procedure Performed:: d and c hysteroscopy Description of Surgical Findings:: Thin atrophic lining Type of Anesthesia:: Local MAC Special Medications: none Specimen's removed: EMC Drains: none Fluids Replaced: crystalloid Description of Procedure: Patient was prepped and draped in a normal sterile fashion under MAC anesthesia. A weighted speculum was placed in the vagina and the anterior lip of the cervix was grasped with a single-tooth tenaculum. A paracervical block was placed with 1% lidocaine. Cervix was progressively dilated to allow passage of a 5 mm hysteroscope. The lining was fully visualized and noted to have a thin lining . Uterine sounded to 7 cm. Curettage was performed and [ ] , sent to pathology. All instruments were removed from the vagina and excellent hemostasis was noted. Patient was awoken and taken to recovery in stable condition. Grafts/Implants Used: none - Complications none - Admit VTE Documentation VTE Present on Admission: No VTE Mechan Device Prophylaxis: SCD's Multi Select Codes - Urinary/Genital Urinary/Genital CPT Codes: 93046 Hysteroscopy, diagnostic
--- NOTE | 2019-02-06 11:56 | DCINST_ITS ---
Discharge Diet: No Restrictions Discharge Activity: Return to Normal Activity, May Shower, May Take a Tub Bath Allergies/Adverse Reactions: Allergies codeine Allergy (Severe, Verified 02/06/19 09:46) MEMORY LOSS egg Allergy (Severe, Verified 02/06/19 09:46) FLU SYMTOPMS, WEEKNESS morphine Allergy (Severe, Verified 02/06/19 09:46) CARDIAC ARREST venom-honey bee [bee venom (honey bee)] Allergy (Severe, Verified 02/06/19 09:46) STOP BREATHING vortioxetine [From Brintellix] Allergy (Severe, Verified 02/06/19 09:46) LEGS FELT ON FIRE acetaminophen [From Vicodin] Allergy (Unknown, Verified 02/06/19 09:46) Unknown PATIENT DOES NOT KNOW aspirin Allergy (Unknown, Verified 02/06/19 09:46) Unknown PATIENT WAS ADVISED BY STUDIO DATA ANALYST NOT TO TAKE hydrocodone [From Vicodin] Allergy (Unknown, Verified 02/06/19 09:46) PATEINT DOES NOT REMEMBER PATIENT DOES NOT KNOW hydrocodone bitartrate [From Vicodin] Allergy (Unknown, Verified 02/06/19 09:46) PATIENT DOES NOT REMEMBER PATIENT DOES NOT KNOW Penicillins Allergy (Unknown, Verified 02/06/19 09:46) Hives PATIENT DOES NOT REMEMBER propoxyphene napsylate [From Darvocet-N 100] Allergy (Unknown, Verified 02/06/19 09:46) PATEINT DOES NOT REMEMBER FLU SHOT Allergy (Severe, Uncoded 02/06/19 09:46) BECARE DEHYDRATED Medications to take at Discharge Albuterol Sulfate [Proventil Hfa] 6.7 gm IH Q4H PRN 07/12/13 Atorvastatin Calcium [Lipitor] 40 mg PO QHS 07/12/13 Multivit-Min/FA/Lycopene/Lut [Centrum Silver Tablet] 1 ea PO DAILY 07/12/13 Ranitidine [Zantac] 150 mg PO DAILY 07/12/13 Valsartan/Hydrochlorothiazide [Diovan Hct 80-12.5 MG Tablet] 1 tab PO DAILY 07/12/13 Aripiprazole [Abilify] 5 mg PO DAILY 01/27/16 Doxepin HCl [Sinequan] 75 mg PO QHS 01/27/16 [place]-3 Fatty Acids/Fish Oil [Fish Oil 1,000 mg Capsule] 2 ea PO BID 01/27/16 Diclofenac [Voltaren] 75 mg PO BIDCM 06/08/17 glipiZIDE [Glucotrol] 5 mg PO DAILY@0730 06/08/17 Gabapentin [Neurontin] 6 mg PO BID 06/15/17 desvenlafaxine ER 50 mg tablet,extended release 24 hour 100 mg PO DAILY tab 07/21/17 metformin ER 750 mg tablet,extended release 24 hr 1,000 mg PO BID 07/21/17 furosemide 20 mg tablet 40 mg PO DAILY tab 07/31/18 mirabegron ER 50 mg tablet,extended release 24 hr 100 mg PO DAILY 12/12/18 Gabapentin [Neurontin] 800 mg PO QHS 01/30/19 Indomethacin [Indocin] 50 mg PO PRN PRN 01/30/19 Primary Care Physician: Agnes Hernandez DO [Primary Care Provider] - Test Results: Test results from this visit will be discussed in further detail at your follow- up appointment, if applicable. Please Follow Up With: Jaylene Akhtar MD - [phone]
[2019-02-06 13:07] VITALS: BP 148/84; BP 185/89; PULSE 81; RESP 16; TEMP 36.5; O2SAT 94
[2019-02-06 13:11] VITALS: BP 138/73; BP 148/84; PULSE 81; RESP 16; O2SAT 93
[2019-02-06 13:15] VITALS: BP 100/70; BP 148/84; PULSE 81; RESP 16; O2SAT 95
[2019-02-06 13:21] VITALS: BP 107/76; BP 148/84; PULSE 83; RESP 16; TEMP 36.4; O2SAT 98
[2019-02-06 13:55] VITALS: BP 148/84
== END 2019-02-06 14:07 | disposition home or self-care (01) ==
LOC: SDC 09:19 → AC 09:23
PROVIDERS: Family Provider Family Medicine; PCP Family Medicine; Referring Provider Obstetrics & Gynecology; Visit Provider Obstetrics & Gynecology
PROC: 0UDB8ZZ Extraction of Endometrium, Via Natural or Artificial Opening Endoscopic (ICD-10-PCS; CPT 58558; principal; 2019-02-06 10:45)
DX: N85.8 Other specified noninflammatory disorders of uterus (principal); N95.0 Postmenopausal bleeding; J44.9 Chronic obstructive pulmonary disease, unspecified; E11.9 Type 2 diabetes mellitus without complications; I10 Essential (primary) hypertension; E78.00 Pure hypercholesterolemia, unspecified; K58.9 Irritable bowel syndrome, unspecified; G47.30 Sleep apnea, unspecified; K21.9 Gastro-esophageal reflux disease without esophagitis; F31.9 Bipolar disorder, unspecified; F41.9 Anxiety disorder, unspecified; Z78.0 Asymptomatic menopausal state; Z79.84 Long term (current) use of oral hypoglycemic drugs; Z79.899 Other long term (current) drug therapy; Z85.51 Personal history of malignant neoplasm of bladder; Z92.3 Personal history of irradiation; Z87.891 Personal history of nicotine dependence
CPT/HCPCS: 58558; 80048; 82962; 85027; 86850; 86900; 86901; 88305; 88341; 88342; 93005; J7120

== ENCOUNTER → 2019-03-01 14:41 | Outpatient (CLI) | payer MEDICARE, SELFPAY ==
[2019-02-26 13:18] VITALS: BMI 45.0
== END ==
PROVIDERS: Family Provider Family Medicine; PCP Family Medicine; Visit Provider Family Medicine
DX: L89.90 Pressure ulcer of unspecified site, unspecified stage (principal)
CPT/HCPCS: 87070; 87075; 87077; 87186; 87205

== ENCOUNTER → 2019-06-29 14:36 | Outpatient (CLI) | payer MEDICARE, MEDICAID, SELFPAY ==
[2019-01-11 14:43] VITALS: BMI 45.1
[2019-02-26 13:18] VITALS: BMI 45.0
--- NOTE | 2019-06-29 14:37 | BI_ITS ---
MAMMOGRAPHY - BILATERAL SCREENING REASON FOR EXAM: Female, 63 years old. Routine annual screening examination. PERTINENT HISTORY: Personal history of breast cancer. History of prior left lumpectomy with radiation therapy. Mother with breast cancer. TECHNIQUE: Digital bilateral breast verna (3D mammographic acquisition) in the CC and MLO projections. 2-D mediolateral oblique (MLO) and craniocaudad (CC) views of both breasts were obtained. CAD: Full Field Digital Mammography with Computer Added Detection was performed. COMPARISON: Comparison is made with prior examination June 27, 2018 and June 25, 2017. FINDINGS: Breast Composition: There are scattered areas of fibroglandular density. There are no dominant masses or suspicious calcifications. No other significant abnormalities are identified. There has been no significant change since the prior study. BI/SCREEN MAMM (CAD) W/VERNA BILAT IMPRESSION: Stable bilateral screening mammogram. Yearly follow-up mammogram recommended. (A) ASSESSMENT CATEGORY: BIRADS Category 1: Negative. A letter regarding these results will be sent to the patient by the facility within 30 days. Approximately 10% of breast cancers are not detected by mammography. A normal mammogram should not delay biopsy of a clinically suspicious abnormality. [id number] Electronically Signed: Tima Aguilar, at 15:38 EDT , Service support ,
== END ==
PROVIDERS: Family Provider Family Medicine; PCP Family Medicine; Referring Provider Internal Medicine Hematology & Oncology; Visit Provider Internal Medicine Hematology & Oncology
DX: Z12.31 Encounter for screening mammogram for malignant neoplasm of breast (principal); C50.919 Malignant neoplasm of unspecified site of unspecified female breast; Z80.3 Family history of malignant neoplasm of breast
CPT/HCPCS: 77063; 77067; 80053; 82784; 83615; 83883; 84165; 85025; 86334

== ENCOUNTER 2019-08-08 15:04 | Outpatient (RCR) | payer MEDICARE, MEDICAID, SELFPAY ==
[2019-07-05 13:11] VITALS: BMI 45.4
--- NOTE | 2019-08-08 15:55 | HP.PTEVAL_ITS ---
Patient's Visit Information VIOLETA RODRIGUEZ is a 63 year old F referred to Physical Therapy by Dr. Agnes Hernandez DO with a diagnosis of CHRONIC COPD,DORSALGIA,CHRONIC PAIN,UNSPECIFIED FALL. Date of Evaluation: 08/08/19 Physical Therapist: Walker Jarquin, PT, Cert MDT, OCS - Visit Plan Frequency: 1VISIT Plan: PT EVAL ONLY. RECOMMEND LIFT CHAIR TO MAINTAIN FUNCTION INDEPENDANCE DUE TO LOWER EXTREMITY WEAKNESS,FALL RISK ,BALANCE DEFICITS ALONG WITH CARIOPULMANARY DEFICITS - Subjective Subjective: This 63 y/o female presents to physical therapy with lift chair evaluation. Patient has difficulty elevated from regular chair. Patient takes extra effort to get up from chair taking extra time. Patient has difficulty with walking ~ 400 ft then needing to sit. Patient legs feel leg giving way. Patient also when standing up as difficulty starighytening back due to pain.Patient can stand ~ 10 mins then needs to sit. Patient at this point doesnt use walker. Patient denies parathesia/tingle. Patient has intermittant edema left leg. Patient does stairs one steps at time with rails. Patient condition impairs ADL's and function .DME : SHOWER CHAIR,HAND RAIILS SHOWER. SOCAIL: single. VOCATION: disablity - Pain Bilateral Back Pain Intensity (Out of 10): 6 Pain Intensity Range: 10 - Objective POSTURE: mild foward posture. GAIT: reciprocal slow janine janine antalgic gait. NEURO: intact. MMT: quads/hams 4-/5,hip flexion /abduction 3+/5,ankle 4- /5. FLEXABLITY: hams mod tight,piriformis mod tight. AROM: knee flexion 5 -110 degrees,hip flexion 95 degrees,IR 5 degrees. AROM: BUE WFL. BUE MMT: 4-/5 - Special Tests L/S Slump test left side: Negative L/S Slump test right side: Negative L/S Left Straight Leg Raise: Negative L/S Right Straight Leg Raise: Negative - Balance Scores Functional Gait Assessment Score: 13 % Disability: 56.6700 CATSIB Score (Max score 120 seconds): 55 - Goals Goal 1:: Patient will benifit from lift chair to maximize function Independance. Goal Time Frame: 1visit - Rehabilitation Potential Physical Therapy Diagnosis: This has multiple comorbities along with weakness legs ,balance and back pain ,risk for falls patient to benifit from lift chair to maximize patient functional Independance. Rehabilitation Potential: Fair - Anticipated Interventions Patient/Client Instruction: Educate patient on: Condition, Plan of Care For the Purpose of:: Other Other: LIFT CHAIR Thank you for the opportunity to evaluate your patient. For Medicare and Medicare HMO plans, please review the plan of care and approve it. It will need to be FAXED BACK to us at [phone] for Medicare purposes. For Medicare only, by signing this I certify the plan of care. Please let me know if there are questions or concerns regarding this plan of care. Physician Signature: Date:
== END 2019-08-08 19:00 | disposition home or self-care (01) ==
LOC: PT 15:04
PROVIDERS: PCP Family Medicine; Referring Provider Family Medicine; Visit Provider Family Medicine
DX: M54.9 Dorsalgia, unspecified (principal); J44.9 Chronic obstructive pulmonary disease, unspecified; G89.29 Other chronic pain; W19.XXXA Unspecified fall, initial encounter
CPT/HCPCS: 97162

== ENCOUNTER → 2019-09-20 13:14 | Outpatient (CLI) | payer MEDICARE, MEDICAID, SELFPAY ==
[2019-07-05 13:11] VITALS: BMI 45.4
== END ==
PROVIDERS: PCP Family Medicine; Referring Provider Family Medicine; Visit Provider Family Medicine
DX: Z20.828 Contact with and (suspected) exposure to other viral communicable diseases (principal)
CPT/HCPCS: 87635; G2023; U0003

== ENCOUNTER → 2020-02-28 15:43 | Outpatient (CLI) | payer MEDICARE, MEDICAID, SELFPAY ==
[2019-07-05 13:11] VITALS: BMI 45.4
--- NOTE | 2020-02-28 15:44 | CT_ITS ---
STUDY: CT CHEST WITH CONTRAST REASON FOR EXAM: Female, 64 years old. FOLLOW UP LUNG NODULE -- LEFT BREAST CA,COPD,DIAB,HTN RADIATION DOSAGE (If Supplied By Facility): CTDIvol = ( 16.72 ) mGy, DLP = ( 701.43 ) mGycm TECHNIQUE: Transaxial imaging was performed following intravenous administration of IV 100mL Isovue-300. Multiplanar coronal and sagittal images were reformatted. Individualized dose optimization techniques were used for this CT. COMPARISON: 01/09/2019 FINDINGS: Redemonstration of a nodule in the deep left breast measures 1.6 x 2.0 cm, similar since the prior study when measured in similar fashion on both studies. Bandlike reticular densities in the medial left upper lobe stable since the prior study. There is a lobular soft tissue density in the right upper lobe bronchus (image 48 series 4) measuring approximately 9 x 10 mm on image 47 of series 4. Soft tissue opacity extends into the left upper lobe segmental bronchi (image 44 series 4), new since the prior study. 4 mm noncalcified nodule in the lateral left upper lobe on image 28 of series 4 is stable. 7 x 9 mm nodule in the left upper lobe on image 36 of series 4 is mildly larger when directly compared to the prior study (previously measured 7 x 8 mm). Small bronchovascular/centrilobular dominant micronodules of the left lower lobe are also stable including a 4 mm nodule in the posterior left lower lobe on image 64. Well-defined 6 mm nodule in the posterior right lower lobe on image 90 is stable. Similar 4 mm nodule in the anterior superior segment right lower lobe on image 59. There is a nodule the medial right upper lobe on image 35 measuring 3 x 4 mm. Mildly irregular 3 mm nodule in the lateral right upper lobe on image 39 of series 4 is stable. No enlarging or dominant /parenchymal nodule/mass. There is no demonstrated pleural abnormality. Normal heart and pericardium. There are calcifications of the coronary arteries. Normal mediastinum. Normal hilar regions. Normal enhanced pulmonary arteries. Normal aorta arch and descending thoracic aorta. There are multi-level degenerative changes of the thoracic spine. There is a small hiatal hernia. CT/Chest WITH Contrast IMPRESSION: 1. INCREASED size and extent LEFT upper lobe endobronchial lobular nodule with further extension into the left upper lobe segmental branches. Differential considerations include benign (hamartoma, leiomyoma, adenoma) and malignant (carcinoma, carcinoid) neoplastic causes as well as nonneoplastic causes (inflammatory and fibroepithelial polyp). Bronchoscopic evaluation/correlation recommended. 2. Slight increased size of left upper lobe nodule (7 x 9 mm, previously measured 7 x 8 mm). Recommend follow-up chest CT in 3-6 months versus additional evaluation with PET scan. 3. Additional small nodules are stable. 4. Overall similar deep left breast nodule. Additional follow-up should be directed based on prior mammographic exams. Electronically Signed: Marlon Chao MD ([place]) at 9:51 EST , Service support ,
[2020-02-28 16:05] LABS: EGFR FINGERSTICK > 60.0000 mL/min (>60)
== END ==
PROVIDERS: PCP Family Medicine; Referring Provider Internal Medicine Medical Oncology; Visit Provider Internal Medicine Medical Oncology
DX: C50.912 Malignant neoplasm of unspecified site of left female breast (principal); D47.2 Monoclonal gammopathy; R91.8 Other nonspecific abnormal finding of lung field
CPT/HCPCS: 71260; Q9967; A4216

== ENCOUNTER → 2020-04-30 12:20 | Outpatient (CLI) | payer MEDICARE, MEDICAID, SELFPAY ==
[2020-04-30 11:49] VITALS: BMI 49.8
[2020-04-30 16:06] LABS: AST(SGOT) 128 U/L (15-37); Alanine Aminotransfer ALT/SGPT 78 U/L (13-56); Alkaline Phosphatase 102 U/L (45-117); Cholesterol 122 mg/dL (200); Globulin 4.7 g/dL (2.2-4.2); High Density Lipoprotein 42 mg/dL; Protein, Total 7.7 g/dL (6.4-8.2); Triglycerides 215 mg/dL; Very Low Density Lipoprotein 43 mg/dL (5-40)
== END ==
PROVIDERS: PCP Family Medicine; Referring Provider Physician Assistant Medical; Visit Provider Physician Assistant Medical
DX: E78.5 Hyperlipidemia, unspecified (principal); R79.89 Other specified abnormal findings of blood chemistry
CPT/HCPCS: 36415; 80061; 80076

== ENCOUNTER → 2020-06-11 11:35 | Outpatient (CLI) | payer MEDICARE, MEDICAID, SELFPAY ==
[2020-06-11 10:50] VITALS: BMI 47.5
[2020-06-11 11:58] LABS: Hematocrit 37.2 % (37-47); Hemoglobin 11.9 g/dL (12.0-15.0); Mean Corpuscular Hgb 28.4 pg (27.0-32.0); Mean Corpuscular Volume 88.8 fL (81-99); Mean Platelet Vol. 9.8 fl (6.2-12.0); Platelet Count 183 K/mm3 (150-450); RBC Distribution Width CV 13.8 % (11.6-14.6); RBC Distribution Width SD 44.5 fl (35.1-43.9); Red Blood Count 4.19 M/mm3 (4.2-5.4); White Blood Count 5.5 K/mm3 (4.4-11.0)
[2020-06-11 12:07] LABS: International Normalized Ratio 1.1; Prothrombin Time (Protime)PT. 13.9 SECONDS (11.7-14.9)
[2020-06-11 19:53] LABS: Xtra Tube EP Lab EXTRA TUBE
== END ==
PROVIDERS: PCP Family Medicine; Referring Provider Internal Medicine Critical Care Medicine; Visit Provider Internal Medicine Critical Care Medicine
DX: N95.0 Postmenopausal bleeding (principal); G47.33 Obstructive sleep apnea (adult) (pediatric)
CPT/HCPCS: 36415; 85027; 85610

== ENCOUNTER 2020-06-13 08:56 | Day surgery (SDC) | payer MEDICARE, MEDICAID, SELFPAY ==
[2020-06-11 10:50] VITALS: BMI 47.5
--- NOTE | 2020-06-11 12:48 | HP.PCM_ITS ---
History of Present Illness Date of Admission: 06/13/20 Chief Complaint: Endobronchial lesion The patient is a 64-year-old female who initially presented to the outpatient pulmonary clinic on June 11 for the evaluation of an endobronchial lesion. The patient has a known history of left breast cancer along with MGUS and known pulmonary nodules, for which the patient has been followed by Dr. Dean of oncology. Her last CT chest completed in February 2020 revealed the presence of a left upper lobe endobronchial lesion, which had increased in size since prior chest imaging. The patient also had evidence of an additional left upper lobe pulmonary nodule. A follow-up PET scan was then completed in April 2020 which was negative. The patient does have a previous smoking history of approximately 0.25 packs/week x 10 years. In addition to her personal smoking history, the patient did grow up in a smoking household. The patient did report having had a sleep study done at an outside institution 2 to 3 years ago, which did confirm the presence of obstructive sleep apnea. She is currently prescribed nocturnal BiPAP therapy. Past Medical History Past Medical History (Chronic Problems): Chronic Problems (Last Reviewed 06/11/20 @ 10:49 by Lisa Chao) History of left breast cancer (Chronic) Lung nodule, multiple (Chronic) MGUS (monoclonal gammopathy of unknown significance) (Chronic) Elevated LFTs (Chronic) Hypertension (Chronic) Hyperlipidemia (Chronic) Medical History: Medical History (Last Reviewed 06/11/20 @ 10:49 by Lisa Chao) Hypertension (Chronic) I10 Hyperlipidemia (Chronic) E78.5 Bipolar disorder F31.9 Bowel obstruction K56.609 COPD (chronic obstructive pulmonary disease) J44.9 Depression F32.9 Diabetes mellitus E11.9 GERD (gastroesophageal reflux disease) K21.9 Hernia K46.9 Sleep apnea G47.30 Breast cancer C50.919 Allergies codeine Allergy (Severe, Verified 05/01/20 15:05) MEMORY LOSS egg Allergy (Severe, Verified 05/01/20 15:05) FLU SYMTOPMS, WEEKNESS morphine Allergy (Severe, Verified 05/01/20 15:05) CARDIAC ARREST venom-honey bee [bee venom (honey bee)] Allergy (Severe, Verified 05/01/20 15:05) STOP BREATHING vortioxetine [From Brintellix] Allergy (Severe, Verified 05/01/20 15:05) LEGS FELT ON FIRE acetaminophen [From Vicodin] Allergy (Unknown, Verified 05/01/20 15:05) Unknown PATIENT DOES NOT KNOW aspirin Allergy (Unknown, Verified 05/01/20 15:05) Unknown PATIENT WAS ADVISED BY INFORMATION CLERK CASHIER NOT TO TAKE hydrocodone [From Vicodin] Allergy (Unknown, Verified 05/01/20 15:05) PATEINT DOES NOT REMEMBER PATIENT DOES NOT KNOW hydrocodone bitartrate [From Vicodin] Allergy (Unknown, Verified 05/01/20 15:05) PATIENT DOES NOT REMEMBER PATIENT DOES NOT KNOW Penicillins Allergy (Unknown, Verified 05/01/20 15:05) Hives PATIENT DOES NOT REMEMBER propoxyphene napsylate [From Darvocet-N 100] Allergy (Unknown, Verified 05/01/20 15:05) PATEINT DOES NOT REMEMBER FLU SHOT Allergy (Severe, Uncoded 05/01/20 15:05) BECARE DEHYDRATED Home Medications: Ambulatory Orders Medication Instructions Recorded Albuterol Sulfate [Proventil Hfa] 6.7 gm IH Q4H PRN 07/12/13 Atorvastatin Calcium [Lipitor] 40 mg PO QHS 07/12/13 Multivit-Min/FA/Lycopene/Lut 1 ea PO DAILY 07/12/13 [Centrum Silver Tablet] Ranitidine [Zantac] 150 mg PO DAILY 07/12/13 Valsartan/Hydrochlorothiazide 1 tab PO DAILY 07/12/13 [Diovan Hct 80-12.5 MG Tablet] Doxepin HCl [Sinequan] 100 mg PO QHS 01/27/16 [place]-3 Fatty Acids/Fish Oil [Fish 2 ea PO DAILY 01/27/16 Oil 1,000 mg Capsule] Diclofenac [Voltaren] 75 mg PO BIDCM 06/08/17 Gabapentin [Neurontin] 600 mg PO BID 06/15/17 desvenlafaxine 50 mg 100 mg PO DAILY tab 07/21/17 tablet,extended release 24 hour metformin 750 mg tablet,extended 1,000 mg PO BID 07/21/17 release 24 hr furosemide 20 mg tablet 40 mg PO DAILY tab 07/31/18 mirabegron 50 mg tablet,extended 100 mg PO DAILY 12/12/18 release 24 hr Gabapentin [Neurontin] 800 mg PO QHS 01/30/19 glipizide 5 mg tablet 10 mg PO DAILY@0730 tab 04/30/20 oxybutynin chloride 10 mg 10 mg PO DAILY 04/30/20 tablet,extended release 24 hr sitagliptin 50 mg tablet 50 mg PO DAILY 04/30/20 Surgical History: Surgical History (Last Reviewed 06/11/20 @ 10:49 by Lisa Chao) History of cholecystectomy Z98.890, Z90.49 History of dental surgery Z92.89 History of hernia repair Z98.890, Z87.19 History of left heart catheterization Onset Date: 01/28/16 Z98.890 normal coronary arteries History of lumpectomy of left breast Z98.890 LEFT EYE SURGERY Smoking Status: Former smoker Review of Systems Constitutional: Denies: Chills, Fever Eyes: Denies: Blurred vision, Double vision HEENT: Denies: Head Aches, Sinus Congestion, Sinus Drainage Cardiovascular: Denies: Chest Pain, Palpitations Respiratory: Reports: Cough, Shortness of Breath Gastrointestinal: Denies: Abdominal Pain, Nausea, Vomiting Genitourinary: Denies: Dysuria Musculoskeletal: Reports: Back Pain. Denies: Joint Pain, Joint Tenderness Skin: Denies: Rash, Wounds Neurological: Denies: Numbness, Tingling, Focal weakness Psychiatric: Denies: Anxiety, Depression, Homicidal Ideations, Suicidal Ideations Hematologic/ Lymphatic: Denies: Easy Bruising, Easy Bleeding VTE Information - Inpt Only VTE Present on Admission: No VTE Mechan Device Prophylaxis: None VTE Pharm Prophylaxis ordered?: No Reason prophylaxis not ordered:: Treatment Not Indicated - Physical Exam Vitals/I&O's: Body Mass Index (BMI) 47.5 Finger Stick Blood Glucose 158 General: Alert, Cooperative, No apparent distress HEENT: Atraumatic, Normocephalic Oral: No Gingival or Mucosal Lesions/ Ulcerations Neck: Supple, No Nodes, Trachea Midline Lungs: Normal air movement, No rhonchi, No wheeze, No rales Cardiovascular: Regular rate, Regular Rhythm Abdomen: Bowel Sounds Present, Soft, Non Tender, Obese Extremities: No clubbing, No cyanosis, No edema Skin: No breakdown Musculoskeletal: No Tenderness to Palpation of Joints or Extremities Lymphatic: No Cervical, Supraclavicular, or Inguinal Adenopathy Neurological: Neuro grossly intact Psych/Mental Status: Normal Affect, Appropriate Assessment/Plan All Active Problems (Last Reviewed 06/11/20 @ 10:49 by Lisa Chao) Postmenopausal bleeding (Acute) Jaw pain (Acute) Hyperglobulinemia (Acute) Breast cancer (Acute) Thrombocytopenia (Resolved) Breast cancer, left (Resolved) Assessment & Plan 1. Endobronchial mass R91.8 Plan The patient's recent chest CT did reveal an endobronchial lesion in her left upper lobe. This appears to have increased in size since prior chest imaging. Follow-up PET scan was negative. The exact etiology for this lesion is unclear. Therefore, I did recommend to the patient that we proceed with direct visualization of the lesion via bronchoscopy, with plans for endobronchial biopsies, if clinically indicated. The patient is in agreement to proceed. Risks and benefits were reviewed. Questions were answered accordingly.
[2020-06-13] VITALS (18 sets, daily range): BP systolic 71–148; BP diastolic 32–119; PULSE 100–115; RESP 18; TEMP 36.2–36.7; O2SAT 91–97; BMI 48.9
--- NOTE | 2020-06-13 | FLU_PTH ---
PATIENT: VIOLETA RODRIGUEZ LOC: EN U#:[id number] AGE/SX: 64/F ROOM: RE06/13/[address]: Dr. Mj Mc DO : 1955 BED: DIS: 06/13/2020 SPEC #: [id number] RECD: 06/13/20 13:27 STATUS: MIRA REMike #: [id number] LAWRENCE: 06/13/20 00:[address]: Mj Mc DEPT: CYTOLOGY RECD BY: Francis Delgado ENTERED: 06/13/20 13:28 SP TYPE: Fluid OTHR DR: Dr. Agnes Hernandez DO Tissues: A - Bronchus of left upper lobe B - Bronchus of left upper lobe C - Bronchus of left upper lobe Procedures: Special Stain Group II Surgery Specimen Level IV Cytospin Fluid HEADER OPERATION: Bronchoscopy with endobronchial biopsy PRE-OP DIAGNOSIS: Endobronchial mass TISSUE SUBMITTED: A - Left upper lobe fluid, B - Left upper lobe cytobrush, C - Left upper lobe slides?x6 DIAGNOSIS CYTOLOGY A. Left upper lobe fluid (cytospin and cell block): Negative for malignant cells. B. Left upper lobe cytobrush (cell block): Negative for malignant cells. C. Left upper lobe brushings (smears): Negative for malignant cells. See comment. SJ:adx 06/16/2020 COMMENT Clinical correlation and appropriate follow up are necessary. Please also make reference to corresponding surgical specimen ([id number]). CAILIN, endobronchial biopsy with diagnosis of benign neuroendocrine neoplasm, favor carcinoid tumor. Case has been reviewed in consultation with Dr. Jay who concurs with the above diagnosis. IDC:AM CYTOLOGY STUDY Slides are reviewed. CYTOLOGY GROSS A - Received is 25 ml of dark red cloudy fluid labeled with the patient's name and and designated per the requisition as CAILIN. Submitted for cytology preparation including cell block. B - Received is a metallic endoscopic cytobrush with adherent minute fragments of jenkins-red tissue brush in 2 ml of clear red fluid and labeled with the patient's name and and designated per the requisition as brush. The material is dislodged from the brush and submitted for cytology preparation including cell block. C - Received are six smears labeled with the patient's name and designated per the requisition as CAILIN. Submitted for staining. / GABO:dax 06/13/20 TC:5 CPT: 10255 x2, 97194, 80759
--- NOTE | 2020-06-13 | IMM_PTH ---
PATIENT: VIOLETA RODRIGUEZ LOC: EN U#:[id number] AGE/SX: 64/F ROOM: RE06/13/[address]: Dr. Mj Mc DO : 1955 BED: DIS: 06/13/2020 SPEC #: [id number] RECD: 06/17/20 10:34 STATUS: MIRA REQ #: [id number] LAWRENCE: 06/13/20 00:[address]: Mj Mc DEPT: IMMUNOHISTOCHEMISTRY RECD BY: Lexie Faustin ENTERED: 06/17/20 10:35 SP TYPE: IMMUNO OTHR DR: Dr. Agnes Hernandez DO Tissues: Left upper lobe of lung, NOS Procedures: Synapto (add) SMA (add) CD31 (add) CD56 (add) CHROMO (add) CK7 (add) CK8 (add) KI-67 (add) Vimentin (add) FACTOR VIII (add) Pankeratin (initial) S-100 (add) PHYSICIAN & [address] [address] SPECIMEN INFORMATION: Tissue Source: CAILIN, endobronchial biopsy Clinical Info: Endobronchial lesion Specimen Number: [id number] CPT code: 17348, 42751 x11 METHODOLOGY: Deparaffinized sections of prefer/formalin-fixed tissue or PAP/DQ stained slides are incubated with monoclonal/polyclonal antibodies/oligonucleotide probes. Localization is made via biotin free immunoperoxidase method. Appropriate controls are performed and reacted as expected. Results on target cell population are indicated in the following table: RESULTS: ANTIBODY / CLONE RESULT AE1-3 (AE1/AE3/PCK26) negative CK7 (OV-TL12/30) positive CK8 (07faolH90) positive Vimentin (V9) negative CD31 (JOE/70A) negative Factor VIII (R Ag) negative Actin (1A4) negative S-100 (4C4.9) positive, focal CD56 (123C3.D5) positive Chromo (LK2H10) positive Synapto (polyclonal) positive Ki-67 (30-9) <1% These tests were developed and their performance characteristics determined by [facility]. They may not have been cleared or approved by the U.S. Food and Drug Administration. The FDA has determined that such clearance or approval is not necessary. The above immunohistochemical/dualISH markers are ordered and reviewed by the Pathologist. INTERPRETATION: CAILIN, endobronchial biopsy: Benign neuroendocrine neoplasm, favor carcinoid tumor. SJ:dax 06/17/2020
--- NOTE | 2020-06-13 | LUNG_PTH ---
PATIENT: VIOLETA RODRIGUEZ LOC: EN U#:[id number] AGE/SX: 64/F ROOM: RE06/13/[address]: Dr. Mj Mc DO : 1955 BED: DIS: 06/13/2020 SPEC #: [id number] RECD: 06/13/20 13:21 STATUS: MIRA REQ #: [id number] LAWRENCE: 06/13/20 00:[address]: Mj Mc DEPT: SURGICAL PATHOLOGY RECD BY: Francis Delgado ENTERED: 06/13/20 13:27 SP TYPE: LUNG BX OTHR DR: Dr. Agnes Hernandez DO Tissues: Bronchus of left upper lobe Procedures: Special Stain Group II Surgery Specimen Level IV Amyloid Stain (control) HEADER OPERATION: Bronchoscopy with endobronchial biopsy PRE-OP DIAGNOSIS: Endobronchial lesion TISSUE SUBMITTED: CAILIN MICROSCOPIC DIAGNOSIS CAILIN, endobronchial biopsy: Benign neuroendocrine neoplasm, favor carcinoid tumor. See comment. SJ:dax 06/16/2020 COMMENT Immunohistochemistry ([id number]) supports the above diagnosis. Focal subepithelial hyalinization is noted. Congo red stain for amyloid is negative. Correlation with clinical findings and appropriate follow up are necessary. This case is discussed with Dr. Mc on 06/18/20. Case has been reviewed in consultation with Dr. Jay who concurs with the above diagnosis. IDC:AM MICROSCOPIC DESCRIPTION Slides are reviewed. GROSS DESCRIPTION Received in fixative is one container labeled with the patient's name and designated biopsy left upper lobe. The specimen consists of multiple irregular fragments of light jenkins soft tissue that in aggregate measure 0.5 x 0.5 x 0.1 cm. The specimen is totally submitted in one cassette. / GABO:dax 06/13/20 TC:1 CPT: 51962, 22108
[2020-06-13] MEDS: Lactated Ringers 1,000 ML 100 ML IV (10:05)
[2020-06-13 11:05] LABS: Bedside Glucose 317 mg/dL (70-110)
[2020-06-13 12:58] LABS: Cytology, Washings SEE PATHOLOGY REPORT
--- NOTE | 2020-06-13 13:03 | OP.BRONCH_ITS ---
Patient Name: Gloria Mora Procedure Date: 06/13/2020 11:56 AM Date of : 1955 Age: 64 Procedure: Bronchoscopy Indications: Left upper lobe endobronchial mass Providers: Mj Mc MD Referring MD: Agnes Hernandez Medicines: Monitored Anesthesia Care Complications: No immediate complications Procedure: Pre-Anesthesia Assessment: - A History and Physical has been performed. Patient meds and allergies have been reviewed. The risks and benefits of the procedure and the sedation options and risks were discussed with the patient. All questions were answered and informed consent was obtained. Patient identification and proposed procedure were verified prior to the procedure by the physician and the nurse in the procedure room. Mental Status Examination: alert and oriented. Airway Examination: normal oropharyngeal airway. Respiratory Examination: poor air movement. CV Examination: normal. ASA Grade Assessment: III - A patient with severe systemic disease. After reviewing the risks and benefits, the patient was deemed in satisfactory condition to undergo the procedure. The anesthesia plan was to use monitored anesthesia care (MAC). Immediately prior to administration of medications, the patient was re-assessed for adequacy to receive sedatives. The heart rate, respiratory rate, oxygen saturations, blood pressure, adequacy of pulmonary ventilation, and response to care were monitored throughout the procedure. The physical status of the patient was re-assessed after the procedure. After I obtained informed consent, the scope was passed under direct vision. Throughout the procedure, the patient's blood pressure, pulse, and oxygen saturations were monitored continuously. The bronchoscope was introduced through the mouth and advanced to the tracheobronchial tree. The procedure was accomplished without difficulty. The patient tolerated the procedure well. Findings: The nasopharynx/oropharynx appears normal. The larynx appears normal. The vocal cords appear normal. The subglottic space is normal. Excessive dynamic airway collapse was noted diffusely in the trachea. The tracheobronchial tree of the right lung was examined to at least the first subsegmental level. Bronchial mucosa and anatomy in the right lung are normal; there are no endobronchial lesions. Left Lung Abnormalities: A partially obstructing left upper lobe endobronchial mass was noted. The mass was extremely friable and bled easily with manipulation. No attempt was made to traverse the lesion. Endobronchial biopsies of the lesion were performed in the left upper lobe using forceps and sent for routine cytology. Two samples were obtained. Brushings of a mass were obtained in the left upper lobe with a cytology brush and sent for routine cytology. Washings were obtained in the left upper lobe and sent for routine cytology. The return was bloody. Impression: - Left upper lobe endobronchial mass - The airway examination of the right lung was normal. - Endobronchial biopsies were performed. - Brushings were obtained. - Washings were obtained. - Excessive Dynamic Airway Collpase was noted in the trachea. Recommendation: - Await biopsy results. - Follow up with bronchoscopist as previously scheduled. - If tissue samples are inadequate, recommend repeat bronchoscopy under general anesthesia with intubation. Procedure Code(s): --- Professional --- 78392, Bronchoscopy, rigid or flexible, including fluoroscopic guidance, when performed; with bronchial or endobronchial biopsy(s), single or multiple sites 77394, Bronchoscopy, rigid or flexible, including fluoroscopic guidance, when performed; with brushing or protected brushings Diagnosis Code(s): --- Professional --- R91.8, Other nonspecific abnormal finding of lung field J98.9, Respiratory disorder, unspecified CPT copyright 2017 [employer]. All rights reserved. The codes documented in this report are preliminary and upon emulsification operator review may be revised to meet current compliance requirements. DO Mj Hutchison MD 06/13/2020 1:03:09 PM This report has been signed electronically. Number of Addenda: 0 Note Initiated On: 06/13/2020 11:56 AM
[2020-06-13 13:17] LABS: Appearance/Body Fluid CLOUDY; Color/Body Fluid RED; Source- Body Fluid BRONCHIAL LAVAGE
[2020-06-13 13:22] LABS: White Blood Count/Body Fluid 300 /mm3
[2020-06-13 14:38] LABS: Lymphocytes 21 %; Monocytes 4 %; Neutrophil (Segs) 26 %; Other Cell Type/BF 49 %
[2020-06-13 14:39] LABS: Body Fluid QC Type(s) BF2Q
[2020-06-13 15:11] LABS: Bedside Glucose 335 mg/dL (70-110)
[2020-06-13 15:11] LABS: Bedside Glucose 331 mg/dL (70-110)
[2020-06-16 14:43] LABS: Pathologist Comment/Body Fluid Reviewed
== END 2020-06-13 14:28 | disposition home or self-care (01) ==
LOC: EN 08:57 → AC 08:58
PROVIDERS: PCP Family Medicine; Referring Provider Family Medicine; Visit Provider Internal Medicine Critical Care Medicine
PROC: 0BJ08ZZ Inspection of Tracheobronchial Tree, Via Natural or Artificial Opening Endoscopic (ICD-10-PCS; CPT 31622; principal; 2020-06-13 11:45)
DX: D3A.8 Other benign neuroendocrine tumors (principal); R91.8 Other nonspecific abnormal finding of lung field; J44.9 Chronic obstructive pulmonary disease, unspecified; Z20.822 Contact with and (suspected) exposure to COVID-19; D47.2 Monoclonal gammopathy; E11.9 Type 2 diabetes mellitus without complications; I10 Essential (primary) hypertension; E78.5 Hyperlipidemia, unspecified; G47.33 Obstructive sleep apnea (adult) (pediatric); K21.9 Gastro-esophageal reflux disease without esophagitis; N95.0 Postmenopausal bleeding; F31.9 Bipolar disorder, unspecified; Z79.1 Long term (current) use of non-steroidal anti-inflammatories (NSAID); Z79.84 Long term (current) use of oral hypoglycemic drugs; Z85.3 Personal history of malignant neoplasm of breast; Z87.891 Personal history of nicotine dependence
CPT/HCPCS: 31623; 31625; 82962; 87426; 88108; 88305; 88313; 88341; 88342; 89050; J7120; J2405; J3490

== ENCOUNTER 2020-06-19 16:34 | Inpatient (IN) | payer MEDICARE, MEDICAID, SELFPAY ==
[2020-06-13 09:37] VITALS: BMI 48.9
[2020-06-19] VITALS (7 sets, daily range): BP systolic 122–147; BP diastolic 68–85; PULSE 110–115; RESP 18–20; TEMP 36.5–37; O2SAT 94–98; BMI 47.7; BMI 47.8
--- NOTE | 2020-06-19 16:42 | CT_ITS ---
STUDY: CT CHEST WITHOUT CONTRAST REASON FOR EXAM: Female, 64 years old. Pneumonia. RADIATION DOSAGE (If Supplied By Facility): CTDIvol = ( 20.15 ) mGy, DLP = ( 800.57 ) mGycm TECHNIQUE: Transaxial imaging was performed without the administration of intravenous contrast material. Multiplanar coronal and sagittal images were reformatted. Individualized dose optimization techniques were used for this CT. COMPARISON: PET/CTs T scan, 04/29/2020. FINDINGS: There is volume loss in the left hemithorax with more consolidation in left upper lobe which was not present on a PET/CT scan of 04/29/2020. There is occlusion of the upper lobe bronchus soft tissue material Right lung is mildly hyperexpanded. There is a 5 mm soft tissue nodule in the medial aspect of the right upper lobe best seen on image 47 of series 4. This appears unchanged when compared to previous CT of the chest dated 08/31/2013. No other pulmonary mass or infiltrate is noted. There is no demonstrated pleural abnormality. Normal heart and pericardium. There is slight mediastinal shift to left. Minimal coronary artery calcification Normal mediastinum. Normal hilar regions. Normal unenhanced pulmonary arteries. Normal aorta arch and descending thoracic aorta. Normal osseous structures. Small hiatal hernia. The liver appears prominent. Findings appear unchanged from the previous exam. CT/Chest without Contrast IMPRESSION: 1. Occlusion of the left upper lobe bronchus with near complete collapse of the upper lobe. 2. Small nodular density in the right upper lobe. Fleischner Society Guidelines suggest no follow-up is necessary for patients with low or high risk of malignancy. Electronically Signed: Ozzie Sauceda DO at 18:17 EST Tel [phone], Service support ,
--- NOTE | 2020-06-19 16:45 | HP.PCM_ITS ---
Problem List (1) Severe sepsis Status: Acute (2) Pneumonia Status: Acute (3) DARRYL (acute kidney injury) Status: Acute (4) Skin abrasion Status: Acute (5) Lactic acidosis Status: Acute (6) Postmenopausal bleeding Status: Chronic Comment: plan d and c hysteroscopy, may be combo case with cj if she recommends surgery? (7) History of left breast cancer Status: Chronic (8) Lung nodule, multiple Status: Chronic (9) Jaw pain Status: Chronic (10) Hyperglobulinemia Status: Chronic (11) MGUS (monoclonal gammopathy of unknown significance) Status: Chronic (12) Breast cancer Status: Chronic Qualifiers: (13) Elevated LFTs Status: Chronic (14) Thrombocytopenia Status: Resolved (15) Hypertension Status: Chronic (16) Hyperlipidemia Status: Chronic History of Present Illness Date of Admission: 06/19/20 Chief Complaint: fall The patient is a 64 year old F who was in her normal state of health and then Tuesday morning, around 4 AM, was getting out of bed and then slid down onto the floor. Patient denies hitting her head nor loss of consciousness but was unable to get up. After about 24 hours patient was finally able to get her life alert and contacted EMS. EMS arrived and patient was covered in feces and urine. Patient was brought to [facility] for evaluation. Patient had a chest x-ray there was concerning for infiltrates she did have a white count of 11,000 and lactic acid of 3.8. Patient did receive IV fluids as well as cefepime. CPK was also elevated given her prolonged period of being down at 4113. Patient denies any fever chills states that her cough is different than normal. Denies any new shortness of breath. Given patient's medical situation, [place] hospitalist contacted for admission and accepted. Patient did sustain abrasions to her arms and legs when she was crawling around on her floor. Patient lives by herself. [] Past Medical History Past Medical History (Chronic Problems): Chronic Problems (Last Reviewed 06/11/20 @ 10:49 by Lisa Chao) Postmenopausal bleeding (Chronic) plan d and c hysteroscopy, may be combo case with cj if she recommends surgery? History of left breast cancer (Chronic) Lung nodule, multiple (Chronic) Jaw pain (Chronic) Hyperglobulinemia (Chronic) MGUS (monoclonal gammopathy of unknown significance) (Chronic) Breast cancer (Chronic) Elevated LFTs (Chronic) Hypertension (Chronic) Hyperlipidemia (Chronic) Medical History: Medical History (Last Updated 06/19/20 @ 16:[address] Jake Andrade, DO) Hypertension (Chronic) I10 Hyperlipidemia (Chronic) E78.5 Carcinoid tumor D3A.00 Bipolar disorder F31.9 Bowel obstruction K56.609 COPD (chronic obstructive pulmonary disease) J44.9 Depression F32.9 Diabetes mellitus E11.9 GERD (gastroesophageal reflux disease) K21.9 Hernia K46.9 Sleep apnea G47.30 Breast cancer C50.919 Allergies codeine Allergy (Severe, Verified 06/12/20 10:29) MEMORY LOSS egg Allergy (Severe, Verified 06/12/20 10:29) FLU SYMTOPMS, WEEKNESS morphine Allergy (Severe, Verified 06/12/20 10:29) CARDIAC ARREST venom-honey bee [bee venom (honey bee)] Allergy (Severe, Verified 06/12/20 10:29) STOP BREATHING vortioxetine [From Brintellix] Allergy (Severe, Verified 06/12/20 10:29) LEGS FELT ON FIRE acetaminophen [From Vicodin] Allergy (Unknown, Verified 06/12/20 10:29) Unknown PATIENT DOES NOT KNOW aspirin Allergy (Unknown, Verified 06/12/20 10:29) Unknown PATIENT WAS ADVISED BY SODA MAKER NOT TO TAKE hydrocodone [From Vicodin] Allergy (Unknown, Verified 06/12/20 10:29) [place] DOES NOT REMEMBER PATIENT DOES NOT KNOW hydrocodone bitartrate [From Vicodin] Allergy (Unknown, Verified 06/12/20 10:29) PATIENT DOES NOT REMEMBER PATIENT DOES NOT KNOW Penicillins Allergy (Unknown, Verified 06/12/20 10:29) Hives PATIENT DOES NOT REMEMBER propoxyphene napsylate [From Darvocet-N 100] Allergy (Unknown, Verified 06/12/20 10:29) [place] DOES NOT REMEMBER FLU SHOT Allergy (Severe, Uncoded 06/12/20 10:29) BECARE DEHYDRATED Home Medications: Ambulatory Orders Medication Instructions Recorded Albuterol Sulfate [Proventil Hfa] 6.7 gm IH Q4H PRN PRN 07/12/13 Atorvastatin Calcium [Lipitor] 40 mg PO QHS 07/12/13 Multivit-Min/FA/Lycopene/Lut 1 ea PO DAILY 07/12/13 [Centrum Silver Tablet] Valsartan/Hydrochlorothiazide 1 tab PO DAILY 07/12/13 [Diovan Hct 80-12.5 MG Tablet] Doxepin HCl [Sinequan] 100 mg PO QHS 01/27/16 [place]-3 Fatty Acids/Fish Oil [Fish 2 ea PO DAILY 01/27/16 Oil 1,000 mg Capsule] Diclofenac [Voltaren] 75 mg PO BID 06/08/17 metformin 750 mg tablet,extended 1,000 mg PO BID 07/21/17 release 24 hr mirabegron 50 mg tablet,extended 100 mg PO DAILY 12/12/18 release 24 hr Gabapentin [Neurontin] 800 mg PO QHS 01/30/19 glipizide 5 mg tablet 10 mg PO DAILY@0730 tab 04/30/20 oxybutynin chloride 10 mg 10 mg PO DAILY 04/30/20 tablet,extended release 24 hr sitagliptin 50 mg tablet 50 mg PO DAILY 04/30/20 Amitriptyline HCl 75 mg PO QHS 06/12/20 Calcium Carbonate/Vitamin D3 1 ea PO DAILY 06/12/20 [Calcium 500+D Tablet Chew] Omeprazole 40 mg PO DAILY 06/12/20 Surgical History: Surgical History (Last Reviewed 06/19/20 @ 16:[address] Jake Andrade DO) History of cholecystectomy Z98.890, Z90.49 History of dental surgery Z92.89 History of hernia repair Z98.890, Z87.19 History of left heart catheterization Onset Date: 01/28/16 Z98.890 normal coronary arteries History of lumpectomy of left breast Z98.890 LEFT EYE SURGERY Smoking Status: Former smoker Tobacco Use: Non-smoker Alcohol: None Drugs: None - *Family History Maternal Family History: Family History (Last Reviewed 06/19/20 @ 16:[address] Jake Andrade DO) Mother Breast cancer, Onset Age: 65 Thyroid disorder Glaucoma Diabetes Hypertension Father CAD (coronary artery disease) Myocardial infarction, Onset Age: 48 Diabetes Uncle CAD (coronary artery disease) Myocardial infarction Grandmother CVA (cerebral vascular accident) Review of Systems Constitutional: Reports: Chills. Denies: Anorexia, Fever Eyes: Denies: Blurred vision, Double vision HEENT: Denies: Head Aches, Sinus Congestion, Sinus Drainage Cardiovascular: Denies: Chest Pain, Palpitations Respiratory: Reports: Cough. Denies: Shortness of Breath Gastrointestinal: Denies: Abdominal Pain, Nausea, Vomiting Genitourinary: Denies: Dysuria Musculoskeletal: Denies: Joint Pain, Joint Tenderness Skin: Reports: Wounds Neurological: Reports: Balance problems - Typically uses a walker but not when she gets out of bed Psychiatric: Reports: Anxiety, Depression Hematologic/ Lymphatic: Denies: Easy Bruising, Easy Bleeding, Hx of blood clot Comment: All review of systems were negative except as mentioned above in the history of present illness and the other review of systems. VTE Information - Inpt Only VTE Present on Admission: No VTE Mechan Device Prophylaxis: None VTE Pharm Prophylaxis ordered?: Yes - Physical Exam Vitals/I&O's: Vital Signs Temp Pulse Resp BP Pulse Ox 37.0 C 115 H 20 H 147/78 H 97 06/19/20 16:10 06/19/20 16:10 06/19/20 16:10 06/19/20 16:10 06/19/20 16:10 Oxygen Flow Rate (L/min) 4 Oxygen Delivery Method Nasal Cannula Weight: 146.737 kg Body Mass Index (BMI) 47.7 Finger Stick Blood Glucose 158 General: Alert, Cooperative, No apparent distress HEENT: Atraumatic, Normocephalic, - - No icterus. Edentulous. Oral: Moist Mucosa, No Gingival or Mucosal Lesions/ Ulcerations Neck: No Nodes, Thyroid Normal Size and Texture Lungs: Clear to auscultation, Diminished, - - No wheezes. Cardiovascular: Regular rate, Regular Rhythm, Normal S1, Normal S2, No murmurs Abdomen: Bowel Sounds Present, Soft, Non Tender, Non-Distended, No Hepato- splenomegaly Extremities: No Calf Tenderness, Edema Skin: - - Abrasions on knees without surrounding erythema. Abrasions on forearms without surrounding erythema. Musculoskeletal: No Tenderness to Palpation of Joints or Extremities, No Muscle Wasting Neurological: Cranial nerves II-XII grossly intact, Muscle tone normal, - - Moves all extremities spontaneously Psych/Mental Status: Normal Affect, Appropriate Labs: CBC: White count 11.6, hemoglobin 12.4, platelets 219. Differential: Neutrophils 85.3, lymphocytes 9.9. INR 1.4 Urinalysis specific gravity was elevated at 1.025, glucose greater than thousand, 15 ketones, small blood, 100 protein, positive nitrites, negative leuk esterase and 0-5 white blood cells BMP: Sodium 135, glucose 358, potassium 4.4, creatinine 1.49, magnesium 1.6, AST 89, ALT 62 CPK 4113 Lactic acid 3.8 and then went down to 2.2 TSH 0.99 Chest x-ray personally reviewed and shows haziness in the right lower lobe but unclear if infiltrate or if being obscured due to redundant tissue. Elbow x-ray on the left showed no fracture. Right showed no fracture Knee x-rays on the right and left were unremarkable Head CT showed no acute intracranial pathology. Moderate sized air-fluid level in the left sphenoid sinus. COVID-19 testing at outside hospital was reportedly negative. Discussed with nursing table games dual rate supervisor who was informed of the results. Current Medications Sodium Chloride () 250 mls @ 15 mls/hr IV .[id number] PRN PRN Reason: Saline Flush Sodium Chloride () 250 mls @ 15 mls/hr IV .[id number] PRN PRN Reason: Additional IVPB Infusion Sodium Chloride (0.9% Saline Lock 10 Ml Syringe) 10 - 40 ml IV UD PRN PRN Reason: SALINE FLUSH Assessment/Plan All Active Problems (Last Reviewed 06/11/20 @ 10:49 by Lisa Chao) Severe sepsis (Acute) Pneumonia (Acute) DARRYL (acute kidney injury) (Acute) Skin abrasion (Acute) Lactic acidosis (Acute) Thrombocytopenia (Resolved) Breast cancer, left (Resolved) 1. Severe sepsis Initial evaluation via EMS, patient was tachycardic with a pulse of 113 and respirate of 20. Addition patient's lactic acid was elevated 3.8 then went down to 2.2 with IV fluids. Part of his lactic acidosis may be skewed given her use of Metformin. Currently patient is hemodynamically stable No evidence of urinary tract infection COVID-19 test was negative at the outside hospital Concern is for pneumonia Plan: * IV antibiotics with cefepime and vancomycin * Follow-up cultures 2. Pneumonia Presumed pneumococcal Plan * Pulmonary toilet * Follow-up urinary antigens for Streptococcus and Legionella. Check sputum culture. * Check CT without contrast (no contrast given DARRYL) to see if there is any possibility this could be postobstructive. From bronchoscopy reports it seemed that the area of concern was more than upper lobe rather than the lower lobe. * Cefepime and vancomycin 3. Rhabdomyolysis Secondary to being down on the ground for greater than 24 hours Plan * Continue with IV fluids * Monitor CPK 4. Acute kidney injury Likely prerenal Plan * Continue with IV fluids * Follow-up labs * Hold valsartan/HCTZ for now 5. Lactic acidosis May be due to severe sepsis but also compromised patient's Metformin use When showing improvements at the outside hospital Plan * Hold Metformin for now * IV fluids 6. Skin abrasions Secondary to being down and dragging herself across her floor for 24 hours No evidence of cellulitis nor compartment syndrome at this time Plan * Wound care to evaluate and treat 7. Debility Patient had a fair to poor performance status prior to this incident Plan * PT OT evaluate and treat * Anticipate long term facility upon discharge and this was addressed directly with the patient. 8. Diabetes mellitus type 2 * Continue glipizide and Januvia for now * Metformin held given lactic acidosis * Sliding scale insulin 9. Morbid obesity Complicates care and overall recovery. Consider bariatric evaluation as outpatient. 10. Hypertension Fair control at present Monitor for now Valsartan/HCTZ currently held given acute kidney injury 11. VTE prophylaxis: Moderate risk. Enoxaparin. 12. Advanced care planning: Discussed with the patient. Patient wishes to be DNR Comfort Care arrest no intubation. 13. COPD: Not in exacerbation at this time. Bronchodilators. No need for steroids at present. 14. Carcinoid tumor Diagnosed on bronchoscopy performed on June 13 Patient will need to follow-up with pulmonology as well as oncology as outpatient. Inpatient E&M: 64847 Init Hosp L3
[2020-06-19 16:50] LABS: Bedside Glucose 312 mg/dL (70-110)
--- NOTE | 2020-06-19 17:49 | PHA.PHARE_ITS ---
Consult Pharmacy has been consulted to manage selected antiobiotic: Vancomycin Type of Consult: New start Suspected Infection: Sepsis, Pneumonia Prior Doses of Antibiotics Received/Current Regimen: Had been on at [facility] per history. Last dose was 2gm iv on 06.19.20 @1034AM. Weight used for dosin kg Estimated Creatinine Clearance: ~59ml/min Goal Trough: 15-20 mcg/mL Pharmacy Plan for Drug Dosing: Per [place] history, Cr was 1.49. Cr Cl calculated to be ~59ml/min for adjusted body weight of 98.1kg. Will begin 1250mg iv q12h starting this PM 12hrs after last dose per protocol. Trough level ordered for .09.05 before 4th dose. Pharmacy Service will continue to monitor and adjust dosing as required. Follow-Up Labs: Trough Vancomycin - 3..21 @2130 before 2200 dose
[2020-06-19] MEDS: 0.9% Saline Lock 10 ML Syringe IV ×4 (18:08→23:54)
[2020-06-19] MEDS: 0.9% Normal Saline 1,000 ML 150 ML IV (18:08)
[2020-06-19] MEDS: Insulin Lispro 100 UNIT/ML INSULN.PEN SC ×2 (18:09→22:33)
[2020-06-19] MEDS: Diclofenac 75 MG Tablet PO (18:10)
[2020-06-19 18:53] LABS: CPK Total, Creatine Kinase 3695 U/L (26-192)
[2020-06-19 20:23] LABS: Lactic Acid 2.3 mmol/L (0.4-1.9)
[2020-06-19] MEDS: DOXEPIN HCL 50 MG CAPSULE 100 MG PO (22:08)
[2020-06-19] MEDS: Atorvastatin Calcium 40 MG Tablet PO (22:09)
[2020-06-19] MEDS: Gabapentin 800 MG Tablet PO (22:09)
[2020-06-19] MEDS: Amitriptyline 25 MG Tablet 75 MG PO (22:09)
[2020-06-19 23:11] LABS: Bedside Glucose 295 mg/dL (70-110)
[2020-06-19 23:22] LABS: Reflex Lactate? Y
[2020-06-20] VITALS (15 sets, daily range): BP systolic 136–143; BP diastolic 62–90; PULSE 95–115; RESP 18; TEMP 36.5–37.1; O2SAT 93–99
[2020-06-20 00:36] LABS: CPK Total, Creatine Kinase 2770 U/L (26-192)
[2020-06-20] MEDS: 0.9% Normal Saline 1,000 ML 150 ML IV ×4 (01:38→23:26)
[2020-06-20 05:06] LABS: Absolute Lymphocyte Count 0.92 X10^3/uL (0.83-4.51); Absolute Neutrophil Count 6.2 X10^3/uL (2.0-7.7); Basophil# 0.02 X10^3/uL; Basophil% 0.2 % (0-1); Eosinophil# 0.25 X10^3/uL; Eosinophils% 3.1 % (0-5); Hematocrit 34.7 % (37-47); Hemoglobin 10.7 g/dL (12.0-15.0); Lymphocyte # 0.92 X10^3/ul (4.0); Lymphocyte % 11.4 % (19-41); Mean Corp Hgb Conc 30.8 g/dL (32-36); Mean Corpuscular Hgb 28.2 pg (27.0-32.0); Mean Corpuscular Volume 91.6 fL (81-99); Mean Platelet Vol. 9.3 fl (6.2-12.0); Monocyte# 0.57 X10^3/uL; Monocyte% 7.1 % (0-10); NRBC Flagged by Analyzer 0 % (0-5); Neutrophil # 6.23 X10^3/uL (2.7-7.7); Neutrophil % 77.6 % (47-70); Platelet Count 148 K/mm3 (150-450); RBC Distribution Width CV 14.3 % (11.6-14.6); RBC Distribution Width SD 48.3 fl (35.1-43.9); Red Blood Count 3.79 M/mm3 (4.2-5.4)
[2020-06-20 05:36] LABS: ALB/GLOB Ratio 0.4 RATIO (0.9-2.4); AST(SGOT) 78 U/L (15-37); Alanine Aminotransfer ALT/SGPT 50 U/L (13-56); Albumin, Serum 2.2 g/dL (3.2-5.0); Alkaline Phosphatase 117 U/L (45-117); Anion Gap 5 (5-15); BUN 20 mg/dL (7-18); BUN/Creat Ratio 19.4 RATIO (10-20); CPK Total, Creatine Kinase 2499 U/L (26-192); Chloride 105 mmol/L (98-107); Creatinine, Serum 1.03 mg/dL (0.55-1.02); EST Glomerular Filtration Rate 57 mL/min (>60); Est Glom Filt Rate - Afr Amer 69 mL/min (>60); Estimated Creatinine Clearance 57.67 ml/min; Glucose 289 mg/dL (74-106); Potassium 3.9 mmol/L (3.5-5.1); Protein, Total 7.2 g/dL (6.4-8.2); Sodium Level 136 mmol/L (136-145)
[2020-06-20] MEDS: Insulin Lispro 100 UNIT/ML INSULN.PEN SC ×4 (06:32→23:06)
[2020-06-20 06:51] LABS: Bedside Glucose 280 mg/dL (70-110)
[2020-06-20 08:18] LABS: Hemoglobin A1c 9.3 % (3.8-5.6)
[2020-06-20] MEDS: Calcium Carb/Vitamin D 1 TABLET Tablet PO (08:34)
[2020-06-20] MEDS: Multivitamins,Ther W-Minerals Tablet 1 TABLET PO (08:34)
[2020-06-20] MEDS: glipiZIDE 10 MG Tablet PO (08:35)
[2020-06-20] MEDS: Diclofenac 75 MG Tablet PO ×2 (08:35→16:44)
--- NOTE | 2020-06-20 09:52 | PN_ITS ---
Patient Problems: Active and Suspected Problems (Last Updated 06/19/20 @ 16:[address] Jake Andrade, DO) Severe sepsis (Acute) Pneumonia (Acute) DARRYL (acute kidney injury) (Acute) Skin abrasion (Acute) Lactic acidosis (Acute) Subjective: Feeling better today, breathing a little bit easier today as well. Vitals/I&O's: Vital Signs Temp Pulse Resp BP Pulse Ox 97.7 F L 103 H 18 137/76 H 93 06/20/20 03:25 06/20/20 03:39 06/20/20 03:25 06/20/20 03:25 06/20/20 07:11 Oxygen Flow Rate (L/min) 2 Oxygen Delivery Method Nasal Cannula Weight: 323 lb 8 oz Body Mass Index (BMI) 47.7 Finger Stick Blood Glucose 158 Intake and Output for Last 24 Hours 06/18/20 06/19/20 06/20/20 23:59 23:59 23:59 Intake Total 1255.25 / 1255.25 1210.0 / 1210.0 Output Total 800 / 800 175 / 175 Balance 455.25 / 455.25 1035.0 / 1035.0 General: Alert, Oriented x3, Cooperative, No apparent distress HEENT: Atraumatic, PERRLA, EOMI, Normocephalic Oral: Moist Mucosa Neck: Supple, No JVD Lungs: Clear to auscultation, No rhonchi, No wheeze, No rales, Diminished Cardiovascular: Regular rate, Regular Rhythm, Normal S1, Normal S2, No murmurs Abdomen: Soft, Non Tender, Non-Distended, No Hepato-splenomegaly Extremities: No edema, Capillary Refill Less than 3 Seconds Skin: - - Abrasions consistent with her history of sliding down to the floor and being on the floor for about 24 hours Musculoskeletal: No Tenderness to Palpation of Joints or Extremities Neurological: Neuro grossly intact, Sensory exam intact to light touch and pain Psych/Mental Status: Normal Affect, Appropriate Microbiology Past 72 Hours 06/19/20 21:40 Urine Catheter - Catheter Legionella Antigen - Final 06/19/20 21:40 Urine Catheter - Catheter Streptococcus pneumoniae Antigen (M - Final Laboratory Results 06/19/20 16:37: POC Glucose 312 H 06/19/20 17:40: Total Creatine Kinase 3695 H 06/19/20 17:40: Troponin I < 0.015 06/19/20 19:17: Lactic Acid 2.3 H* 06/19/20 21:20: Troponin I < 0.015 06/19/20 22:05: POC Glucose 295 H 06/19/20 23:55: Total Creatine Kinase 2770 H 06/19/20 23:55: Troponin I < 0.015 06/20/20 04:58: Sodium 136, Potassium 3.9, Chloride 105, Carbon Dioxide 26.0, Anion Gap 5, BUN 20 H, Creatinine 1.03 H, Estim Creat Clear Calc 57.67, Est GFR (MDRD) Af Amer 69, Est GFR (MDRD) Non-Af 57 L, BUN/Creatinine Ratio 19.4, Gluco se 289 H, Calcium 9.0, Total Bilirubin 0.50, AST 78 H, ALT 50, Alkaline Phosphatase 117, Total Creatine Kinase 2499 H, Total Protein 7.2, Albumin 2.2 L, Globulin 5.0 H, Albumin/Globulin Ratio 0.4 L 06/20/20 04:58: WBC 8.0, RBC 3.79 L, Hgb 10.7 L, Hct 34.7 L, MCV 91.6, MCH 28.2, MCHC 30.8 L, RDW Std Deviation 48.3 H, RDW Coeff of Jose Miguel 14.3, Plt Count 148 L, MPV 9.3, Immature Gran % (Auto) 0.600, Neut % (Auto) 77.6 H, Lymph % (Auto) 11.4 L, Sanders % (Auto) 7.1, Eos % (Auto) 3.1, Baso % (Auto) 0.2, Absolute Neuts (auto) 6.2, Absolute Lymphs (auto) 0.92, Nucleated RBC % 0 06/20/20 04:58: Hemoglobin A1c 9.3 H 06/20/20 06:30: POC Glucose 280 H Current Medications Acetaminophen (Acetaminophen 325 Mg Tablet) 650 mg PO Q6H PRN PRN PRN Reason: Pain Score 1-10/Temp > 100.7 F Albuterol Sulfate (Albuterol 2.5 Mg/3 Ml Vial.Neb.) 2.5 mg INHALATION Q2H PRN PRN PRN Reason: SOB/Wheezing Amitriptyline HCl (Amitriptyline 25 Mg Tablet) 75 mg PO QHS SADE Last Admin: 06/19/20 22:09 Dose: 75 mg Documented by: Atorvastatin Calcium (Atorvastatin Calcium 40 Mg Tablet) [facility] Last Admin: 06/19/20 22:09 Dose: 40 mg Documented by: Calcium/Vitamin D (Calcium Carb/Vitamin D 1 Tablet Tablet) [facility] Last Admin: 06/20/20 08:34 Dose: 1 tablet Documented by: Diclofenac Sodium (Diclofenac 75 Mg Tablet) [facility] Last Admin: 06/20/20 08:35 Dose: 75 mg Documented by: Doxepin HCl (Doxepin Hcl 50 Mg Capsule) [facility] Last Admin: 06/19/20 22:08 Dose: 100 mg Documented by: Enoxaparin Sodium (Enoxaparin 40 Mg/0.4 Ml Syringe) 40 mg SC DAILY [facility] Gabapentin (Gabapentin 800 Mg Tablet) [facility] Last Admin: 06/19/20 22:09 Dose: 800 mg Documented by: Glipizide (Glipizide 10 Mg Tablet) 10 mg PO DAILY@0730 [facility] Last Admin: 06/20/20 08:35 Dose: 10 mg Documented by: Guaifenesin (Guaifenesin 10 Ml Udc (200mg/10ml)) 20 ml PO Q4H PRN PRN PRN Reason: COUGH Sodium Chloride () 250 mls @ 15 mls/hr IV .[id number] PRN PRN Reason: Saline Flush Last Infusion: 06/19/20 22:28 Dose: 15 mls/hr Documented by: Sodium Chloride () 250 mls @ 15 mls/hr IV .[id number] PRN PRN Reason: Additional IVPB Infusion Sodium Chloride () 1,000 mls @ 150 mls/hr IV .Q6H40M [facility] Last Admin: 06/20/20 06:55 Dose: 150 mls/hr Documented by: Vancomycin IV Pharmacy to Dose (1 ea/ Sodium Chloride) 500 mls @ 250 mls/hr IV PRN PRN; Protocol PRN Reason: Rx to Dose Cefepime HCl 2 gm/ Sodium (Chloride) 100 mls @ 200 mls/hr IV Q12 [facility] Last Infusion: 06/19/20 22:28 Dose: Infused Documented by: Vancomycin HCl 1,250 mg/ (Sodium Chloride) 275 mls @ 167 mls/hr IV Q12H [facility] Last Infusion: 06/19/20 23:31 Dose: Infused Documented by: Insulin Human Lispro (Insulin Lispro 100 Unit/Ml Insuln.Pen) 0 unit SC ACHS [facility]; Protocol Last Admin: 06/20/20 06:32 Dose: 4 u Documented by: Linagliptin (Linagliptin 5 Mg Tablet) 5 mg PO DAILY [facility] Mirabegron (Mirabegron 50 Mg Tab.Er.24h) 100 mg PO DAILY [facility] Multivitamins/Minerals (Multivitamins,Ther W-Minerals Tablet) 1 tablet PO DAILY@0800 [facility] Last Admin: 06/20/20 08:34 Dose: 1 tablet Documented by: Nitroglycerin (Nitroglycerin (Inpatient Use) 0.4 Mg Tab.Subl) 0.4 mg SUBLINGUAL Q5M PRN PRN Reason: CARDIAC/CHEST PAIN Jxqus-3-Xwrs Ethyl Esters (.) 2 gm PO DAILY [facility] Pantoprazole Sodium (Pantoprazole Sodium 40 Mg Tablet) 40 mg PO DAILY [facility] Sodium Chloride (0.9% Saline Lock 10 Ml Syringe) 10 - 40 ml IV UD PRN PRN Reason: SALINE FLUSH Last Admin: 06/19/20 23:54 Dose: 30 ml Documented by: Tolterodine Tartrate (Tolterodine Tartrate 2 Mg Cap.Sa) 2 mg PO DAILY [facility] STROKE Vital Signs/Narrative: Vital Signs Pulse Ox 06/20/20 07:11 93 Medical Necessity - Tobacco Use Smoking Status: Former smoker Tobacco Use: Non-smoker Assessment/Plan All Active Problems (Last Updated 06/19/20 @ 16:[address] Jake Andrade, DO) Thrombocytopenia (Resolved) Severe sepsis (Acute) Pneumonia (Acute) DARRYL (acute kidney injury) (Acute) Skin abrasion (Acute) Lactic acidosis (Acute) Breast cancer, left (Resolved) 1. Severe sepsis secondary to postobstructive pneumonia on the left/acute rhabdomyolysis/carcinoid tumor -She had a bronchoscopy at the end of May with a biopsy demonstrating carcinoid tumor it appears that in the area of where the carcinoid tumor was after the biopsy it is now obstructed -Continue with pulmonary toilet -Continue with cefepime and Vanco -Continue with aggressive IV fluid hydration and monitor renal function no DARRYL -CPK is improving -PT/OT for evaluation for her debility, will likely need fdc facility on discharge 2. HTN/HLD/morbid obesity -Blood pressure is stable -Continue with metoprolol and Lipitor -Hold valsartan and hydrochlorothiazide secondary to rhabdomyolysis 3. DM 2 -We will hold all of her home medications and place her on a sliding scale insulin -Accu-Cheks AC at bedtime, appropriate diet 4. Bipolar disorder -Stable -Continue with amitriptyline, doxepin, Desvenlafaxine, Abilify DVT: Lovenox Inpatient E&M: 89713 Subs Hosp L2
--- NOTE | 2020-06-20 10:10 | CASEMGMT ---
Assessment- SW met with patient. Introduced self and [facility]. She agreed to complete assessment with SW. Living situation- Patient lives alone in a 1 story apartment/condo with 2 entry steps. PCP: Dr Hernandez Specialists: Cardiology-She could not remember name and Pulmonology- Dr Mc Pharmacy: [place] or [facility] in [place] DME: lift chair, walker, raised toilet seat, grab bars, and Bipap through [employer]. ADL's/IADL's: Patient gets help with bathing, brim stitcher, and medications. Her aide helps with these things. he toilets herself and manages her own finances. [place] organizes her medications. She drives. She normally uses her walker to get around. Past SNF/rehab: None Past HH: None LW: Yes. Patient is aware they are not on file at [facility] POA: Yes. Patient is aware they are not on file at [facility]. Her sister is her HCPOA. Her name is Kaia Grande. Patient did not want her listed as a contact right now. Plan: Patient has [employer] services. Her pillowcase turner is Jacinta fernandes. Patient has an aide 5 days a week from [place]. SW mentioned to patient that it sounds like she is going to need to go somewhere for rehab. Patient shook her head no. She said she is going home. She has aides that come in to help her. SW told her PT/OT will be in to see her so we can see how she does and what they recommend. SW will contact [facility] to let them know patient is in the hospital and see what services she has. Plan: SHAR TARIQ
[2020-06-20] MEDS: Enoxaparin 40 MG/0.4 ML Syringe SC (10:26)
[2020-06-20] MEDS: Mirabegron 50 MG TAB.ER.24H 100 MG PO (10:26)
[2020-06-20] MEDS: Tolterodine Tartrate 2 MG CAP.SA PO (10:27)
[2020-06-20] MEDS: Pantoprazole Sodium 40 MG Tablet PO (10:27)
--- NOTE | 2020-06-20 10:29 | NURSING ---
wound photo: left knee
--- NOTE | 2020-06-20 10:30 | NURSING ---
wound photo: right knee
--- NOTE | 2020-06-20 10:31 | NURSING ---
wound photo: right elbow
--- NOTE | 2020-06-20 10:32 | NURSING ---
wound photo: left elbow
[2020-06-20 12:00] LABS: Bedside Glucose 288 mg/dL (70-110)
--- NOTE | 2020-06-20 14:18 | CASEMGMT ---
LOREN received a call from Arin with [facility]. LOREN told her we do not have a discharge plan for patient yet. She said they provide aide services for patient. She asked that we update her on patient's discharge plans on Tuesday. Arin with [facility]: phone: [phone] and fax: [phone] LOREN called [facility] and spoke with Kumar Gibbons on the coverage line. Patient has a medical alert button, meals delivered by [facility], aide services through [facility] 2 hours each day, and a medical alert button. Patient's major case detective is Jacinta Chen. Her number is [phone]. Sirisha PARSONS MSW
--- NOTE | 2020-06-20 14:44 | CASEMGMT ---
RN CM briefcase sewer in to discuss DC planning with patient. Pt is active with [facility] for aides service. Pt is agreeable to [facility] through [facility]. Pt denied need for list of [facility] agencies. Pt denied further questions/concerns. [facility] awaiting referral due to pt current with aides. Faxed information at this time. Green sheet placed on chart for DC instructions/summary to be faxed.
--- NOTE | 2020-06-20 15:27 | CASEMGMT ---
Call to [facility] to notify of referral and they state they will call and let this RN CM know for sure if they can take pt. This RN RUTHY then received call from Arin, works manager for [employer], and she states she manages all the dual [facility] pt's and states that referral should have come to her but she can call [facility] office and let them know. Arin states they can take pt at this time. Arin states to leave green sheet with [facility] contact/fax numbers at this time. Marcellus RICH CM
[2020-06-20 16:41] LABS: Bedside Glucose 231 mg/dL (70-110)
[2020-06-20 21:50] LABS: Vancomycin, Trough Level 10.9 ug/mL (5.0-15.0)
[2020-06-20] MEDS: DOXEPIN HCL 50 MG CAPSULE 100 MG PO (22:57)
[2020-06-20] MEDS: Gabapentin 800 MG Tablet PO (22:57)
[2020-06-20] MEDS: Atorvastatin Calcium 40 MG Tablet PO (22:57)
[2020-06-20] MEDS: Metoprolol Tartrate 25 MG Tablet 12.5 MG PO (22:58)
[2020-06-20] MEDS: Amitriptyline 25 MG Tablet 75 MG PO (22:58)
[2020-06-20 23:16] LABS: Bedside Glucose 285 mg/dL (70-110)
[2020-06-21] VITALS (15 sets, daily range): BP systolic 143–161; BP diastolic 83–91; PULSE 69–99; RESP 16–18; TEMP 36.3–37.1; O2SAT 94–98
--- NOTE | 2020-06-21 00:10 | PCM.RX.CS ---
Consult Pharmacy has been consulted to manage selected antiobiotic: Vancomycin Type of Consult: Follow-up Suspected Infection: Sepsis, Pneumonia Prior Doses of Antibiotics Received/Current Regimen: Medications Vancomycin HCl 2,000 mg/ (Sodium Chloride) 540 mls @ 250 mls/hr IV Q12H SADE Vancomycin HCl 1,250 mg/ (Sodium Chloride) 275 mls @ 167 mls/hr IV Q12H SADE Stop: 06/21/20 01:30 Last Admin: 06/20/20 23:27 Dose: 167 mls/hr Labs: Sodium 136 mmol/L (136-145) 06/20/20 04:58 Potassium 3.9 mmol/L (3.5-5.1) 06/20/20 04:58 Chloride 105 mmol/L (98-107) 06/20/20 04:58 Carbon Dioxide 26.0 mmol/L (21.0-32.0) 06/20/20 04:58 Anion Gap 5 (5-15) 06/20/20 04:58 BUN 20 mg/dL (7-18) H 06/20/20 04:58 Creatinine 1.03 mg/dL (0.55-1.02) H 06/20/20 04:58 Est GFR (MDRD) Af Amer 69 mL/min (>60) 06/20/20 04:58 Est GFR (MDRD) Non-Af 57 mL/min (>60) L 06/20/20 04:58 BUN/Creatinine Ratio 19.4 RATIO (10-20) 06/20/20 04:58 Glucose 289 mg/dL (74-106) H 06/20/20 04:58 Vancomycin Trough 10.9 ug/mL (5.0-15.0) 06/20/20 21:15 Microbiology: Microbiology 06/19/20 21:40 Urine Catheter - Catheter Legionella Antigen - Final 06/19/20 21:40 Urine Catheter - Catheter Streptococcus pneumoniae Antigen (M - Final Weight used for dosin.7 kg Estimated Creatinine Clearance: 86 Goal Trough: 15-20 mcg/mL Pharmacy Plan for Drug Dosing: Vancomycin trough level of 10.9 was below target range of 15-20. Using the newly calculated CrCl of 86 (using ABW) suggests increase to 2000mg q12h. Will draw another trough level prior to 4th dose of this new regimen. Pharmacy Service will continue to monitor and adjust dosing as required. Follow-Up Labs: Trough Vancomycin Labs to be done on [date and time ordered]: 06/22/20 @2300
[2020-06-21] MEDS: 0.9% Normal Saline 1,000 ML 150 ML IV ×3 (04:55→20:03)
[2020-06-21] MEDS: 0.9% Saline Lock 10 ML Syringe IV (06:36)
[2020-06-21] MEDS: Insulin Lispro 100 UNIT/ML INSULN.PEN SC ×4 (06:45→21:50)
[2020-06-21 06:51] LABS: Bedside Glucose 240 mg/dL (70-110)
[2020-06-21 08:02] LABS: Absolute Lymphocyte Count 0.99 X10^3/uL (0.83-4.51); Absolute Neutrophil Count 3.9 X10^3/uL (2.0-7.7); Basophil# 0.02 X10^3/uL; Basophil% 0.3 % (0-1); Eosinophil# 0.24 X10^3/uL; Eosinophils% 4.2 % (0-5); Hematocrit 33.8 % (37-47); Hemoglobin 10.7 g/dL (12.0-15.0); Lymphocyte # 0.99 X10^3/ul (4.0); Lymphocyte % 17.3 % (19-41); Mean Corp Hgb Conc 31.7 g/dL (32-36); Mean Corpuscular Hgb 28.6 pg (27.0-32.0); Mean Corpuscular Volume 90.4 fL (81-99); Mean Platelet Vol. 9.5 fl (6.2-12.0); Monocyte# 0.52 X10^3/uL; Monocyte% 9.1 % (0-10); NRBC Flagged by Analyzer 0 % (0-5); Neutrophil # 3.89 X10^3/uL (2.7-7.7); Neutrophil % 67.9 % (47-70); Platelet Count 160 K/mm3 (150-450); RBC Distribution Width CV 14.2 % (11.6-14.6); RBC Distribution Width SD 47.4 fl (35.1-43.9); Red Blood Count 3.74 M/mm3 (4.2-5.4); White Blood Count 5.7 K/mm3 (4.4-11.0)
[2020-06-21 08:20] LABS: Anion Gap 5 (5-15); BUN 19 mg/dL (7-18); BUN/Creat Ratio 20.3 RATIO (10-20); Calcium,Total 9.1 mg/dL (8.5-10.1); Chloride 109 mmol/L (98-107); Creatinine, Serum 0.94 mg/dL (0.55-1.02); EST Glomerular Filtration Rate 64 mL/min (>60); Est Glom Filt Rate - Afr Amer 77 mL/min (>60); Estimated Creatinine Clearance 63.19 ml/min; Glucose 233 mg/dL (74-106); Potassium 4.2 mmol/L (3.5-5.1); Sodium Level 139 mmol/L (136-145)
[2020-06-21] MEDS: Enoxaparin 40 MG/0.4 ML Syringe SC (09:05)
[2020-06-21] MEDS: Multivitamins,Ther W-Minerals Tablet 1 TABLET PO (09:08)
[2020-06-21] MEDS: Diclofenac 75 MG Tablet PO ×2 (09:09→17:19)
[2020-06-21] MEDS: Calcium Carb/Vitamin D 1 TABLET Tablet PO (09:09)
[2020-06-21] MEDS: Anastrozole 1 MG TABLET PO (09:10)
[2020-06-21] MEDS: ARIPiprazole 5 MG Tablet PO (09:11)
[2020-06-21] MEDS: Tolterodine Tartrate 2 MG CAP.SA PO (09:11)
[2020-06-21] MEDS: Venlafaxine XR 75 MG Capsule PO (09:12)
[2020-06-21] MEDS: Metoprolol Tartrate 25 MG Tablet 12.5 MG PO ×2 (09:12→22:01)
[2020-06-21] MEDS: Mirabegron 50 MG TAB.ER.24H 100 MG PO (09:18)
[2020-06-21] MEDS: Pantoprazole Sodium 40 MG Tablet PO (09:19)
--- NOTE | 2020-06-21 09:22 | PCM.PN.HOSP ---
Patient Problems: Active and Suspected Problems (Last Updated 06/19/20 @ 16:[address] Jake Andrade, DO) Severe sepsis (Acute) Pneumonia (Acute) DARRYL (acute kidney injury) (Acute) Skin abrasion (Acute) Lactic acidosis (Acute) Subjective: Feeling better than when she came in. Still has difficulty with ambulation, she is standby contact-guard assist of 1 or 2 with ambulation was only able to do about 20 feet with a wheeled walker worse before she was able to do 500. Physical therapy is recommending additional therapy. Vitals/I&O's: Vital Signs Temp Pulse Resp BP Pulse Ox 97.4 F L 99 16 160/83 H 94 06/21/20 04:53 06/21/20 09:12 06/21/20 04:53 06/21/20 09:12 06/21/20 07:40 Oxygen Flow Rate (L/min) 2 Oxygen Delivery Method Nasal Cannula Weight: 323 lb 8 oz Body Mass Index (BMI) 47.7 Finger Stick Blood Glucose 158 Intake and Output for Last 24 Hours 06/19/20 06/20/20 06/21/20 23:59 23:59 23:59 Intake Total 1255.25 / 1255.25 5195.5 / 5395.5 1545.0 / 1545.0 Output Total 800 / 800 1125 / 1125 200 / 200 Balance 455.25 / 455.25 4070.5 / 4270.5 1345.0 / 1345.0 General: Alert, Oriented x3, Cooperative, No apparent distress HEENT: Atraumatic, PERRLA, EOMI, Normocephalic Oral: Moist Mucosa Neck: Supple, No JVD Lungs: Clear to auscultation, No rhonchi, No wheeze, No rales, Diminished Cardiovascular: Regular rate, Regular Rhythm, Normal S1, Normal S2, No murmurs Abdomen: Soft, Non Tender, Non-Distended, No Hepato-splenomegaly Extremities: No edema, Capillary Refill Less than 3 Seconds Skin: - - Abrasions consistent with her history of sliding down to the floor and being on the floor for about 24 hours Musculoskeletal: No Tenderness to Palpation of Joints or Extremities Neurological: Neuro grossly intact, Sensory exam intact to light touch and pain Psych/Mental Status: Normal Affect, Appropriate Microbiology Past 72 Hours 06/19/20 21:40 Urine Catheter - Catheter Legionella Antigen - Final 06/19/20 21:40 Urine Catheter - Catheter Streptococcus pneumoniae Antigen (M - Final Laboratory Results 06/20/20 11:54: POC Glucose 288 H 06/20/20 16:34: POC Glucose 231 H 06/20/20 21:15: Vancomycin Trough 10.9 06/20/20 23:04: POC Glucose 285 H 06/21/20 06:42: POC Glucose 240 H 06/21/20 06:50: WBC 5.7, RBC 3.74 L, Hgb 10.7 L, Hct 33.8 L, MCV 90.4, MCH 28.6, MCHC 31.7 L, RDW Std Deviation 47.4 H, RDW Coeff of Jose Miguel 14.2, Plt Count 160, MPV 9.5, Immature Gran % (Auto) 1.200 H, Neut % (Auto) 67.9, Lymph % (Auto) 17.3 L, [place] % (Auto) 9.1, Eos % (Auto) 4.2, Baso % (Auto) 0.3, Absolute Neuts (auto) 3.9, Absolute Lymphs (auto) 0.99, Nucleated RBC % 0 06/21/20 06:50: Sodium 139, Potassium 4.2, Chloride 109 H, Carbon Dioxide 25.0, Anion Gap 5, BUN 19 H, Creatinine 0.94, Estim Creat Clear Calc 63.19, Est GFR (MDRD) Af Amer 77, Est GFR (MDRD) Non-Af 64, BUN/Creatinine Ratio 20.3 H, Glucose 233 H, Calcium 9.1 Current Medications Acetaminophen (Acetaminophen 325 Mg Tablet) 650 mg PO Q6H PRN PRN PRN Reason: Pain Score 1-10/Temp > 100.7 F Albuterol Sulfate (Albuterol 2.5 Mg/3 Ml Vial.Neb.) 2.5 mg INHALATION Q2H PRN PRN PRN Reason: SOB/Wheezing Amitriptyline HCl (Amitriptyline 25 Mg Tablet) 75 mg PO QHS [facility] Last Admin: 06/20/20 22:58 Dose: 75 mg Documented by: Anastrozole (Anastrozole 1 Mg Tablet) 1 mg PO DAILY [facility] Last Admin: 06/21/20 09:10 Dose: 1 mg Documented by: Aripiprazole (Aripiprazole 5 Mg Tablet) 5 mg PO DAILY [facility] Last Admin: 06/21/20 09:11 Dose: 5 mg Documented by: Atorvastatin Calcium (Atorvastatin Calcium 40 Mg Tablet) 40 mg PO QHS [facility] Last Admin: 06/20/20 22:57 Dose: 40 mg Documented by: Calcium/Vitamin D (Calcium Carb/Vitamin D 1 Tablet Tablet) [facility] Last Admin: 06/21/20 09:09 Dose: 1 tablet Documented by: Diclofenac Sodium (Diclofenac 75 Mg Tablet) [facility] Last Admin: 06/21/20 09:09 Dose: 75 mg Documented by: Doxepin HCl (Doxepin Hcl 50 Mg Capsule) [facility] Last Admin: 06/20/20 22:57 Dose: 100 mg Documented by: Enoxaparin Sodium (Enoxaparin 40 Mg/0.4 Ml Syringe) 40 mg SC DAILY [facility] Last Admin: 06/21/20 09:05 Dose: 40 mg Documented by: Gabapentin (Gabapentin 800 Mg Tablet) 800 mg PO QHS [facility] Last Admin: 06/20/20 22:57 Dose: 800 mg Documented by: Guaifenesin (Guaifenesin 10 Ml Udc (200mg/10ml)) 20 ml PO Q4H PRN PRN PRN Reason: COUGH Sodium Chloride () 250 mls @ 15 mls/hr IV .[id number] PRN PRN Reason: Saline Flush Last Infusion: 06/20/20 10:00 Dose: 0 mls/hr Documented by: Sodium Chloride () 250 mls @ 15 mls/hr IV .[id number] PRN PRN Reason: Additional IVPB Infusion Sodium Chloride () 1,000 mls @ 150 mls/hr IV .[id number] [facility] Last Infusion: 06/21/20 06:34 Dose: 150 mls/hr Documented by: Vancomycin IV Pharmacy to Dose (1 ea/ Sodium Chloride) 500 mls @ 250 mls/hr IV PRN PRN; Protocol PRN Reason: Rx to Dose Cefepime HCl 2 gm/ Sodium (Chloride) 100 mls @ 200 mls/hr IV Q12 [facility] Last Admin: 06/21/20 09:04 Dose: 200 mls/hr Documented by: Vancomycin HCl 2,000 mg/ (Sodium Chloride) 540 mls @ 250 mls/hr IV Q12H [facility] Insulin Human Lispro (Insulin Lispro 100 Unit/Ml Insuln.Pen) 0 unit SC ACHS [facility]; Protocol Last Admin: 06/21/20 06:45 Dose: 3 u Documented by: Metoprolol Tartrate (Metoprolol Tartrate 25 Mg Tablet) 12.5 mg PO BID [facility] Last Admin: 06/21/20 09:12 Dose: 12.5 mg Documented by: Mirabegron (Mirabegron 50 Mg Tab.Er.24h) 100 mg PO DAILY [facility] Last Admin: 06/21/20 09:18 Dose: 100 mg Documented by: Multivitamins/Minerals (Multivitamins,Ther W-Minerals Tablet) 1 tablet PO DAILY@0800 [facility] Last Admin: 06/21/20 09:08 Dose: 1 tablet Documented by: Nitroglycerin (Nitroglycerin (Inpatient Use) 0.4 Mg Tab.Subl) 0.4 mg SUBLINGUAL Q5M PRN PRN Reason: CARDIAC/CHEST PAIN Dthal-6-Tqlp Ethyl Esters (.) 2 gm PO DAILY [facility] Last Admin: 06/21/20 09:16 Dose: 2 gm Documented by: Pantoprazole Sodium (Pantoprazole Sodium 40 Mg Tablet) 40 mg PO DAILY [facility] Last Admin: 06/21/20 09:19 Dose: 40 mg Documented by: Sodium Chloride (0.9% Saline Lock 10 Ml Syringe) 10 - 40 ml IV UD PRN PRN Reason: SALINE FLUSH Last Admin: 06/21/20 06:36 Dose: 10 ml Documented by: Tolterodine Tartrate (Tolterodine Tartrate 2 Mg Cap.Sa) 2 mg PO DAILY [facility] Last Admin: 06/21/20 09:11 Dose: 2 mg Documented by: Venlafaxine HCl (Venlafaxine Xr 75 Mg Capsule) 75 mg PO DAILY [facility] Last Admin: 06/21/20 09:12 Dose: 75 mg Documented by: STROKE Vital Signs/Narrative: Vital Signs Pulse BP Pulse Ox 06/21/20 09:12 99 160/83 H 06/21/20 07:40 94 Medical Necessity - Tobacco Use Smoking Status: Former smoker Tobacco Use: Non-smoker Assessment/Plan All Active Problems (Last Updated 06/19/20 @ 16:[address] Jake Andrade, DO) Thrombocytopenia (Resolved) Severe sepsis (Acute) Pneumonia (Acute) DARRYL (acute kidney injury) (Acute) Skin abrasion (Acute) Lactic acidosis (Acute) Breast cancer, left (Resolved) 1. Severe sepsis secondary to postobstructive pneumonia on the left/acute rhabdomyolysis/carcinoid tumor -She had a bronchoscopy at the end of May with a biopsy demonstrating carcinoid tumor it appears that in the area of where the carcinoid tumor was after the biopsy it is now obstructed. She will need to follow-up with a thoracic surgeon as an outpatient -Continue with pulmonary toilet -Continue with cefepime and Vanco -Continue with IV fluid hydration and monitor renal function no DARRYL -CPK is improving -PT/OT for evaluation for her debility, will likely need retirement facility on discharge 2. HTN/HLD/morbid obesity -Blood pressure is stable -Continue with metoprolol and Lipitor -We will restart her valsartan hydrochlorothiazide in the morning 3. DM 2 -We will hold all of her home medications and place her on a sliding scale insulin -Accu-Cheks AC at bedtime, appropriate diet 4. Bipolar disorder -Stable -Continue with amitriptyline, doxepin, Desvenlafaxine, Abilify DVT: Lovenox Inpatient E&M: 41493 Subs Hosp L2
--- NOTE | 2020-06-21 11:13 | EKG12_ITS ---
Test Reason : RHYTHM Blood Pressure : / mmHG Vent. Rate : 093 BPM Atrial Rate : 093 BPM P-R Int : 174 ms QRS Dur : 130 ms QT Int : 356 ms P-R-T Axes : 033 -42 030 degrees QTc Int : 442 ms Normal sinus rhythm Left axis deviation Left bundle branch block Abnormal ECG When compared with ECG of 06-FEB-2019 09:58, Left bundle branch block has replaced Incomplete left bundle branch block Confirmed by DAIN CORDOBA, FRANCISCO ([id number]), continuity editor ROBIN CASTELLANOS ([id number]) on 06/24/2020 12:50:52 PM Referred By: JANA Confirmed By:FRANCISCO GAUTAM MD
[2020-06-21 11:36] LABS: Bedside Glucose 331 mg/dL (70-110)
--- NOTE | 2020-06-21 17:15 | NURSING ---
This RN taking over care.
[2020-06-21 17:25] LABS: Bedside Glucose 275 mg/dL (70-110)
[2020-06-21] MEDS: Gabapentin 800 MG Tablet PO (22:01)
[2020-06-21] MEDS: DOXEPIN HCL 50 MG CAPSULE 100 MG PO (22:02)
[2020-06-21] MEDS: Atorvastatin Calcium 40 MG Tablet PO (22:02)
[2020-06-21] MEDS: Amitriptyline 25 MG Tablet 75 MG PO (22:03)
[2020-06-22] VITALS (13 sets, daily range): BP systolic 145–164; BP diastolic 80–88; PULSE 80–98; RESP 18; TEMP 36.3–37.1; O2SAT 92–98
[2020-06-22 00:36] LABS: Bedside Glucose 264 mg/dL (70-110)
[2020-06-22] MEDS: Insulin Lispro 100 UNIT/ML INSULN.PEN SC ×4 (06:09→21:35)
[2020-06-22] MEDS: 0.9% Normal Saline 1,000 ML 150 ML IV (06:10)
[2020-06-22 06:15] LABS: Anion Gap 5 (5-15); BUN 17 mg/dL (7-18); BUN/Creat Ratio 19.5 RATIO (10-20); Calcium,Total 8.9 mg/dL (8.5-10.1); Chloride 108 mmol/L (98-107); Creatinine, Serum 0.87 mg/dL (0.55-1.02); EST Glomerular Filtration Rate 69 mL/min (>60); Est Glom Filt Rate - Afr Amer 84 mL/min (>60); Estimated Creatinine Clearance 68.27 ml/min; Glucose 224 mg/dL (74-106); Potassium 4.4 mmol/L (3.5-5.1); Sodium Level 139 mmol/L (136-145)
[2020-06-22 06:26] LABS: Bedside Glucose 181 mg/dL (70-110)
--- NOTE | 2020-06-22 09:04 | PCM.PN.HOSP ---
Patient Problems: Active and Suspected Problems (Last Updated 06/19/20 @ 16:[address] Jake Andrade, DO) Severe sepsis (Acute) Pneumonia (Acute) DARRYL (acute kidney injury) (Acute) Skin abrasion (Acute) Lactic acidosis (Acute) Subjective: Doing well, no issues overnight. States that she is feeling better. Vitals/I&O's: Vital Signs Temp Pulse Resp BP Pulse Ox 98.0 F 98 18 147/80 H 97 06/22/20 04:20 06/22/20 07:02 06/22/20 04:20 06/22/20 04:20 06/22/20 07:00 Oxygen Flow Rate (L/min) 2 Oxygen Delivery Method Nasal Cannula Weight: 323 lb 8 oz Body Mass Index (BMI) 47.7 Finger Stick Blood Glucose 158 Intake and Output for Last 24 Hours 06/20/20 06/21/20 06/22/20 23:59 23:59 23:59 Intake Total 5195.5 / 5395.5 4597.5 / 4597.5 1815 / 1815 Output Total 1125 / 1125 200 / 200 350 / 350 Balance 4070.5 / 4270.5 4397.5 / 4397.5 1465 / 1465 General: Alert, Oriented x3, Cooperative, No apparent distress HEENT: Atraumatic, PERRLA, EOMI, Normocephalic Oral: Moist Mucosa Neck: Supple, No JVD Lungs: Clear to auscultation, No rhonchi, No wheeze, No rales, Diminished Cardiovascular: Regular rate, Regular Rhythm, Normal S1, Normal S2, No murmurs Abdomen: Soft, Non Tender, Non-Distended, No Hepato-splenomegaly Extremities: No edema, Capillary Refill Less than 3 Seconds Skin: - - Abrasions consistent with her history of sliding down to the floor and being on the floor for about 24 hours Musculoskeletal: No Tenderness to Palpation of Joints or Extremities Neurological: Neuro grossly intact, Sensory exam intact to light touch and pain Psych/Mental Status: Normal Affect, Appropriate Microbiology Past 72 Hours 06/19/20 17:40 Blood Culture (Wb) - Right Hand Blood Culture - Preliminary No growth in 48 hours. 06/19/20 20:20 Blood Culture (Wb) - Other Blood Culture - Preliminary No growth in 48 hours. 06/19/20 21:40 Urine Catheter - Catheter Legionella Antigen - Final 06/19/20 21:40 Urine Catheter - Catheter Streptococcus pneumoniae Antigen (M - Final Laboratory Results 06/21/20 11:22: POC Glucose 331 H 06/21/20 17:17: POC Glucose 275 H 06/21/20 21:47: POC Glucose 264 H 06/22/20 04:50: Sodium 139, Potassium 4.4, Chloride 108 H, Carbon Dioxide 26.0, Anion Gap 5, BUN 17, Creatinine 0.87, Estim Creat Clear Calc 68.27, Est GFR (MDRD) Af Amer 84, Est GFR (MDRD) Non-Af 69, BUN/Creatinine Ratio 19.5, Glucose 224 H, Calcium 8.9 06/22/20 06:04: POC Glucose 181 H Current Medications Acetaminophen (Acetaminophen 325 Mg Tablet) 650 mg PO Q6H PRN PRN PRN Reason: Pain Score 1-10/Temp > 100.7 F Albuterol Sulfate (Albuterol 2.5 Mg/3 Ml Vial.Neb.) 2.5 mg INHALATION Q2H PRN PRN PRN Reason: SOB/Wheezing Amitriptyline HCl ([facility] Mg [facility]t) [facility] Last Admin: 06/21/20 22:03 Dose: 75 mg Documented by: Anastrozole (Anastrozole 1 Mg Tablet) 1 mg PO DAILY [facility] Last Admin: 06/21/20 09:10 Dose: 1 mg Documented by: Aripiprazole (Aripiprazole 5 Mg Tablet) 5 mg PO DAILY [facility] Last Admin: 06/21/20 09:11 Dose: 5 mg Documented by: Atorvastatin Calcium (Atorvastatin Calcium 40 Mg Tablet) [facility] Last Admin: 06/21/20 22:02 Dose: 40 mg Documented by: Calcium/Vitamin D (Calcium Carb/Vitamin D 1 Tablet Tablet) [facility] Last Admin: 06/21/20 09:09 Dose: 1 tablet Documented by: Diclofenac Sodium (Diclofenac 75 Mg Tablet) [facility] Last Admin: 06/21/20 17:19 Dose: 75 mg Documented by: Doxepin HCl (Doxepin Hcl 50 Mg Capsule) [facility] Last Admin: 06/21/20 22:02 Dose: 100 mg Documented by: Enoxaparin Sodium (Enoxaparin 40 Mg/0.4 Ml Syringe) 40 mg SC DAILY [facility] Last Admin: 06/21/20 09:05 Dose: 40 mg Documented by: Gabapentin (Gabapentin 800 Mg Tablet) 800 mg PO QHS [facility] Last Admin: 06/21/20 22:01 Dose: 800 mg Documented by: Guaifenesin (Guaifenesin 10 Ml Udc (200mg/10ml)) 20 ml PO Q4H PRN PRN PRN Reason: COUGH Sodium Chloride () 250 mls @ 15 mls/hr IV .[id number] PRN PRN Reason: Saline Flush Last Infusion: 06/21/20 20:53 Dose: Infused Documented by: Sodium Chloride () 250 mls @ 15 mls/hr IV .[id number] PRN PRN Reason: Additional IVPB Infusion Sodium Chloride () 1,000 mls @ 100 mls/hr IV .Q10H [facility] Last Infusion: 06/22/20 08:00 Dose: 100 mls/hr Documented by: Vancomycin IV Pharmacy to Dose (1 ea/ Sodium Chloride) 500 mls @ 250 mls/hr IV PRN PRN; Protocol PRN Reason: Rx to Dose Cefepime HCl 2 gm/ Sodium (Chloride) 100 mls @ 200 mls/hr IV Q12 [facility] Last Infusion: 06/21/20 22:29 Dose: Infused Documented by: Vancomycin HCl 2,000 mg/ (Sodium Chloride) 540 mls @ 250 mls/hr IV Q12H [facility] Last Infusion: 06/22/20 01:38 Dose: Infused Documented by: Insulin Human Lispro (Insulin Lispro 100 Unit/Ml Insuln.Pen) 0 unit SC [facility]; Protocol Last Admin: 06/22/20 06:09 Dose: 1 u Documented by: Metoprolol Tartrate (Metoprolol Tartrate 25 Mg Tablet) 12.5 mg PO BID [facility] Last Admin: 06/21/20 22:01 Dose: 12.5 mg Documented by: Mirabegron (Mirabegron 50 Mg Tab.Er.24h) 100 mg PO DAILY [facility] Last Admin: 06/21/20 09:18 Dose: 100 mg Documented by: Multivitamins/Minerals (Multivitamins,Ther W-Minerals Tablet) 1 tablet PO DAILY@0800 [facility] Last Admin: 06/21/20 09:08 Dose: 1 tablet Documented by: Nitroglycerin (Nitroglycerin (Inpatient Use) 0.4 Mg Tab.Subl) 0.4 mg SUBLINGUAL Q5M PRN PRN Reason: CARDIAC/CHEST PAIN Fxfqd-9-[id number] Ethyl Esters (.) 2 gm PO DAILY [facility] Last Admin: 06/21/20 09:16 Dose: 2 gm Documented by: Pantoprazole Sodium (Pantoprazole Sodium 40 Mg Tablet) 40 mg PO DAILY [facility] Last Admin: 06/21/20 09:19 Dose: 40 mg Documented by: Sodium Chloride (0.9% Saline Lock 10 Ml Syringe) 10 - 40 ml IV UD PRN PRN Reason: SALINE FLUSH Last Admin: 06/21/20 06:36 Dose: 10 ml Documented by: Tolterodine Tartrate (Tolterodine Tartrate 2 Mg Cap.Sa) 2 mg PO DAILY [facility] Last Admin: 06/21/20 09:11 Dose: 2 mg Documented by: Venlafaxine HCl (Venlafaxine Xr 75 Mg Capsule) 75 mg PO DAILY [facility] Last Admin: 06/21/20 09:12 Dose: 75 mg Documented by: STROKE Vital Signs/Narrative: Vital Signs Pulse Pulse Ox 06/22/20 07:02 98 06/22/20 07:00 97 Medical Necessity - Tobacco Use Smoking Status: Former smoker Tobacco Use: Non-smoker Assessment/Plan All Active Problems (Last Updated 06/19/20 @ 16:[address] Jake Andrade, ) Thrombocytopenia (Resolved) Severe sepsis (Acute) Pneumonia (Acute) DARRYL (acute kidney injury) (Acute) Skin abrasion (Acute) Lactic acidosis (Acute) Breast cancer, left (Resolved) 1. Severe sepsis secondary to postobstructive pneumonia on the left/acute rhabdomyolysis/carcinoid tumor -She had a bronchoscopy at the end of May with a biopsy demonstrating carcinoid tumor it appears that in the area of where the carcinoid tumor was after the biopsy it is now obstructed. She will need to follow-up with a thoracic surgeon as an outpatient -Continue with pulmonary toilet -Continue with cefepime and Vanco -Continue with IV fluid hydration and monitor renal function no DARRYL, can likely DC fluids in the morning in favor of just p.o. hydration -CPK is improving -PT/OT for evaluation for her debility, will likely need fdc facility on discharge 2. HTN/HLD/morbid obesity -Blood pressure is stable -Continue with metoprolol and Lipitor -We will restart her valsartan hydrochlorothiazide in the morning 3. DM 2 -We will hold all of her home medications and place her on a sliding scale insulin -Accu-Cheks AC at bedtime, appropriate diet 4. Bipolar disorder -Stable -Continue with amitriptyline, doxepin, Desvenlafaxine, Abilify DVT: Lovenox Inpatient E&M: 25140 Subs Hosp L2
[2020-06-22] MEDS: Tolterodine Tartrate 2 MG CAP.SA PO (09:15)
[2020-06-22] MEDS: Pantoprazole Sodium 40 MG Tablet PO (09:15)
[2020-06-22] MEDS: Venlafaxine XR 75 MG Capsule PO (09:15)
[2020-06-22] MEDS: Enoxaparin 40 MG/0.4 ML Syringe SC (09:15)
[2020-06-22] MEDS: Anastrozole 1 MG TABLET PO (09:15)
[2020-06-22] MEDS: Multivitamins,Ther W-Minerals Tablet 1 TABLET PO (09:16)
[2020-06-22] MEDS: Diclofenac 75 MG Tablet PO ×2 (09:16→16:45)
[2020-06-22] MEDS: Calcium Carb/Vitamin D 1 TABLET Tablet PO (09:16)
[2020-06-22] MEDS: ARIPiprazole 5 MG Tablet PO (09:16)
[2020-06-22] MEDS: Metoprolol Tartrate 25 MG Tablet 12.5 MG PO ×2 (09:17→21:38)
[2020-06-22] MEDS: Mirabegron 50 MG TAB.ER.24H 100 MG PO (09:17)
[2020-06-22 11:25] LABS: Bedside Glucose 317 mg/dL (70-110)
[2020-06-22 16:56] LABS: Bedside Glucose 274 mg/dL (70-110)
[2020-06-22] MEDS: 0.9% Normal Saline 1,000 ML 100 ML IV (17:53)
[2020-06-22] MEDS: Atorvastatin Calcium 40 MG Tablet PO (21:38)
[2020-06-22] MEDS: Gabapentin 800 MG Tablet PO (21:38)
[2020-06-22] MEDS: DOXEPIN HCL 50 MG CAPSULE 100 MG PO (21:38)
[2020-06-22 22:00] LABS: Bedside Glucose 281 mg/dL (70-110)
[2020-06-22] MEDS: Amitriptyline 25 MG Tablet 75 MG PO (22:54)
[2020-06-22 23:22] LABS: Vancomycin, Trough Level 19.8 ug/mL (5.0-15.0)
[2020-06-23] VITALS (8 sets, daily range): BP systolic 158–179; BP diastolic 69–93; PULSE 75–93; RESP 18; TEMP 36.3–36.8; O2SAT 93–96
[2020-06-23 05:06] LABS: Absolute Lymphocyte Count 1.44 X10^3/uL (0.83-4.51); Absolute Neutrophil Count 5.4 X10^3/uL (2.0-7.7); Basophil# 0.02 X10^3/uL; Basophil% 0.3 % (0-1); Eosinophil# 0.23 X10^3/uL; Hematocrit 34.3 % (37-47); Hemoglobin 10.6 g/dL (12.0-15.0); Lymphocyte # 1.44 X10^3/ul (4.0); Lymphocyte % 18.6 % (19-41); Mean Corp Hgb Conc 30.9 g/dL (32-36); Mean Corpuscular Hgb 27.5 pg (27.0-32.0); Mean Corpuscular Volume 88.9 fL (81-99); Monocyte# 0.58 X10^3/uL; Monocyte% 7.5 % (0-10); NRBC Flagged by Analyzer 0 % (0-5); Neutrophil # 5.39 X10^3/uL (2.7-7.7); Neutrophil % 69.7 % (47-70); Platelet Count 178 K/mm3 (150-450); RBC Distribution Width CV 13.9 % (11.6-14.6); RBC Distribution Width SD 45.2 fl (35.1-43.9); Red Blood Count 3.86 M/mm3 (4.2-5.4); White Blood Count 7.7 K/mm3 (4.4-11.0)
[2020-06-23 05:20] LABS: Anion Gap 7 (5-15); BUN 16 mg/dL (7-18); BUN/Creat Ratio 18.6 RATIO (10-20); Calcium,Total 9.5 mg/dL (8.5-10.1); Chloride 106 mmol/L (98-107); Creatinine, Serum 0.86 mg/dL (0.55-1.02); EST Glomerular Filtration Rate 71 mL/min (>60); Est Glom Filt Rate - Afr Amer 85 mL/min (>60); Estimated Creatinine Clearance 69.07 ml/min; Glucose 239 mg/dL (74-106); Potassium 4.3 mmol/L (3.5-5.1); Sodium Level 138 mmol/L (136-145)
[2020-06-23] MEDS: 0.9% Normal Saline 1,000 ML 100 ML IV (06:35)
[2020-06-23 06:36] LABS: Bedside Glucose 223 mg/dL (70-110)
[2020-06-23] MEDS: Insulin Lispro 100 UNIT/ML INSULN.PEN SC ×2 (06:37→11:08)
[2020-06-23] MEDS: Diclofenac 75 MG Tablet PO (08:16)
[2020-06-23] MEDS: Calcium Carb/Vitamin D 1 TABLET Tablet PO (08:16)
[2020-06-23] MEDS: Multivitamins,Ther W-Minerals Tablet 1 TABLET PO (08:16)
[2020-06-23] MEDS: Enoxaparin 40 MG/0.4 ML Syringe SC (09:19)
[2020-06-23] MEDS: Mirabegron 50 MG TAB.ER.24H 100 MG PO (09:20)
[2020-06-23] MEDS: Anastrozole 1 MG TABLET PO (09:20)
[2020-06-23] MEDS: Tolterodine Tartrate 2 MG CAP.SA PO (09:20)
[2020-06-23] MEDS: Pantoprazole Sodium 40 MG Tablet PO (09:20)
[2020-06-23] MEDS: ARIPiprazole 5 MG Tablet PO (09:20)
[2020-06-23] MEDS: Venlafaxine XR 75 MG Capsule PO (09:20)
[2020-06-23] MEDS: Metoprolol Tartrate 25 MG Tablet 12.5 MG PO (09:20)
--- NOTE | 2020-06-23 09:36 | CASEMGMT ---
LOREN met with patient. LOREN asked patient about her plans for discharge. She said she wants to go home with home health. LOERN notified RN CM. LOREN called Jacinta Chen with [facility] and let her know patient is going home with home health SN,PT, and OT. LOREN faxed d/c instruction to Jacinta. Plan: d/c home with home health through [facility]. Patient will also resume her Passport services with [facility]. Sirisha PARSONS MSW
[2020-06-23] MEDS: levoFLOXacin 750 MG Tablet PO (09:53)
--- NOTE | 2020-06-23 09:56 | PCM.DC ---
- Discharge Diagnoses Current Active Problems: Current Active and Chronic Problems (Last Updated 06/19/20 @ 16:[address] Jake Andrade, DO) Elevated LFTs (Chronic) Jaw pain (Chronic) Hyperglobulinemia (Chronic) MGUS (monoclonal gammopathy of unknown significance) (Chronic) Breast cancer (Chronic) History of left breast cancer (Chronic) Lung nodule, multiple (Chronic) Postmenopausal bleeding (Chronic) plan d and c hysteroscopy, may be combo case with cj if she recommends surgery? Severe sepsis (Acute) Pneumonia (Acute) DARRYL (acute kidney injury) (Acute) Skin abrasion (Acute) Lactic acidosis (Acute) Hypertension (Chronic) Hyperlipidemia (Chronic) You will use the following diet at home:: Calorie/Carbohydrate Controlled (specify 1200, 1400, etc) - 1800 rosamaria Your food should be the consistency of: Regular Your liquids should be the consistency of: Regular/Thin Discharge Activity: Return to Normal Activity Weight Bearing Status: Full weight bearing Allergies/Adverse Reactions: Allergies codeine Allergy (Severe, Verified 06/12/20 10:29) MEMORY LOSS egg Allergy (Severe, Verified 06/12/20 10:29) FLU SYMTOPMS, WEEKNESS morphine Allergy (Severe, Verified 06/12/20 10:29) CARDIAC ARREST venom-honey bee [bee venom (honey bee)] Allergy (Severe, Verified 06/12/20 10:29) STOP BREATHING vortioxetine [From Brintellix] Allergy (Severe, Verified 06/12/20 10:29) LEGS FELT ON FIRE acetaminophen [From Vicodin] Allergy (Unknown, Verified 06/12/20 10:29) Unknown PATIENT DOES NOT KNOW aspirin Allergy (Unknown, Verified 06/12/20 10:29) Unknown PATIENT WAS ADVISED BY DUMPING MACHINE OPERATOR NOT TO TAKE hydrocodone [From Vicodin] Allergy (Unknown, Verified 06/12/20 10:29) PATEINT DOES NOT REMEMBER PATIENT DOES NOT KNOW hydrocodone bitartrate [From Vicodin] Allergy (Unknown, Verified 06/12/20 10:29) PATIENT DOES NOT REMEMBER PATIENT DOES NOT KNOW Penicillins Allergy (Unknown, Verified 06/12/20 10:29) Hives PATIENT DOES NOT REMEMBER propoxyphene napsylate [From Darvocet-N 100] Allergy (Unknown, Verified 06/12/20 10:29) PATEINT DOES NOT REMEMBER FLU SHOT Allergy (Severe, Uncoded 06/12/20 10:29) BECARE DEHYDRATED Medications to take at Discharge Albuterol Sulfate [Proventil Hfa] 6.7 gm IH Q4H PRN PRN 07/12/13 Atorvastatin Calcium [Lipitor] 40 mg PO QHS 07/12/13 Multivit-Min/FA/Lycopene/Lut [Centrum Silver Tablet] 1 ea PO DAILY 07/12/13 Valsartan/Hydrochlorothiazide [Diovan Hct 80-12.5 MG Tablet] 1 tab PO DAILY 07/12/13 Doxepin HCl [Sinequan] 75 mg PO QHS 01/27/16 [place]-3 Fatty Acids/Fish Oil [Fish Oil 1,000 mg Capsule] 2 ea PO DAILY 01/27/16 Diclofenac [Voltaren] 75 mg PO BID 06/08/17 metformin 750 mg tablet,extended release 24 hr 1,000 mg PO BID 07/21/17 mirabegron 50 mg tablet,extended release 24 hr 75 mg PO DAILY 12/12/18 Gabapentin [Neurontin] 600 mg PO TID 01/30/19 glipizide 5 mg tablet 5 mg PO DAILY@0730 tab 04/30/20 oxybutynin chloride 10 mg tablet,extended release 24 hr 10 mg PO DAILY 04/30/20 Amitriptyline HCl 75 mg PO QHS 06/12/20 Calcium Carbonate/Vitamin D3 [Calcium 500+D Tablet Chew] 1 ea PO DAILY 06/12/20 Omeprazole 40 mg PO DAILY 06/12/20 Anastrozole 1 mg PO DAILY 06/19/20 Aripiprazole 1 tab PO DAILY 06/19/20 Desvenlafaxine [Desvenlafaxine ER] 1 tab PO DAILY 06/19/20 Gabapentin 300 mg PO TID 06/19/20 Metoprolol Tartrate 12.5 mg PO BID 06/19/20 Oxycodone HCl/Acetaminophen [Percocet 5-325] 1 tab PO Q6H PRN PRN 06/19/20 Sitagliptin Phosphate [Januvia] 50 mg PO DAILY 06/19/20 levoFLOXacin tablet [Levaquin tablet] 750 mg PO DAILY #7 tab 06/23/20 The following prescriptions were given: levoFLOXacin tablet [Levaquin tablet] 750 mg PO DAILY #7 tab Transmission Status: Pending to [id number] Primary Care Physician: Agnes Hernandez DO [Primary Care Provider] - Please follow up with your Primary Care Physician in: this week Test Results: Test results from this visit will be discussed in further detail at your follow-up appointment, if applicable. Please Follow Up With: oncology-call for appointment
--- NOTE | 2020-06-23 11:04 | PHA.DC.MC ---
Pharmacy Service has performed discharge medication reconciliation and counseling for this patient. The patient was counseled on the following discharge medications and changes in medications for homegoing were reviewed. 1. KELLY The Reason for Use, instructions for use, and potential side effects were reviewed for all new medications. The patient's questions regarding all of their medications were answered. The patient demonstrated some understanding but would benefit from further education and reinforcement. Home Medications Albuterol Sulfate [Proventil Hfa] 6.7 gm IH Q4H PRN PRN 07/12/13 Atorvastatin Calcium [Lipitor] 40 mg PO QHS 07/12/13 Multivit-Min/FA/Lycopene/Lut [Centrum Silver Tablet] 1 ea PO DAILY 07/12/13 Valsartan/Hydrochlorothiazide [Diovan Hct 80-12.5 MG Tablet] 1 tab PO DAILY 07/12/13 Doxepin HCl [Sinequan] 75 mg PO QHS 01/27/16 [place]-3 Fatty Acids/Fish Oil [Fish Oil 1,000 mg Capsule] 2 ea PO DAILY 01/27/16 Diclofenac [Voltaren] 75 mg PO BID 06/08/17 metformin 750 mg tablet,extended release 24 hr 1,000 mg PO BID 07/21/17 mirabegron 50 mg tablet,extended release 24 hr 75 mg PO DAILY 12/12/18 Gabapentin [Neurontin] 600 mg PO TID 01/30/19 glipizide 5 mg tablet 5 mg PO DAILY@0730 tab 04/30/20 oxybutynin chloride 10 mg tablet,extended release 24 hr 10 mg PO DAILY 04/30/20 Amitriptyline HCl 75 mg PO QHS 06/12/20 Calcium Carbonate/Vitamin D3 [Calcium 500+D Tablet Chew] 1 ea PO DAILY 06/12/20 Omeprazole 40 mg PO DAILY 06/12/20 Anastrozole 1 mg PO DAILY 06/19/20 Aripiprazole 1 tab PO DAILY 06/19/20 Desvenlafaxine [Desvenlafaxine ER] 1 tab PO DAILY 06/19/20 Gabapentin 300 mg PO TID 06/19/20 Metoprolol Tartrate 12.5 mg PO BID 06/19/20 Oxycodone HCl/Acetaminophen [Percocet 5-325] 1 tab PO Q6H PRN PRN 06/19/20 Sitagliptin Phosphate [Januvia] 50 mg PO DAILY 06/19/20 levoFLOXacin tablet [Levaquin tablet] 750 mg PO DAILY #7 tab 06/23/20 The patient's discharge medication list was reviewed for discrepancies and discrepancies were resolved.
[2020-06-23 11:16] LABS: Bedside Glucose 329 mg/dL (70-110)
--- NOTE | 2020-06-23 11:28 | CASEMGMT ---
D/C instructions faxed to [facility] at this time. Arin at [facility] updated on d/c instructions faxed and pt discharge today, voices understanding. Marcellus RICH CM
--- NOTE | 2020-06-24 13:05 | CASEMGMT ---
Call from Jayne from [facility] requesting most recent progress note to be faxed. Faxed at this time.
--- NOTE | 2020-06-25 18:20 | PCM.DC.SUM ---
Discharge Date and Diagnosis - Problem List Patient Problems: Active and Suspected Problems (Last Updated 06/19/20 @ 16:[address] Jake Andrade DO) Severe sepsis (Acute) Pneumonia (Acute) DARRYL (acute kidney injury) (Acute) Skin abrasion (Acute) Lactic acidosis (Acute) Date of Admission: 06/19/20 Date of Discharge: 06/23/20 - Primary Discharge Diagnosis Acute Problems: Active Problems (Last Updated 06/19/20 @ 16:[address] Jake Andrade DO) Severe sepsis secondary to postobstructive pneumonia from carcinoid tumor Pneumonia-postobstructive in nature, organism unknown Acute rhabdomyolysis Essential hypertension Hyperlipidemia Type 2 diabetes Bipolar disorder Morbid obesity Left lung carcinoid tumor-previously diagnosed Generalized debility-secondary to multiple medical problems Acute kidney injury was not present - Secondary Discharge Diagnosis Chronic Problems: Chronic Problems (Last Updated 06/19/20 @ 16:[address] Jake Andrade DO) Elevated LFTs (Chronic) Jaw pain (Chronic) Hyperglobulinemia (Chronic) MGUS (monoclonal gammopathy of unknown significance) (Chronic) Breast cancer (Chronic) History of left breast cancer (Chronic) Lung nodule, multiple (Chronic) Postmenopausal bleeding (Chronic) plan d and c hysteroscopy, may be combo case with cj if she recommends surgery? Hypertension (Chronic) Hyperlipidemia (Chronic) Hospital Course and Treatment Consultations 06/19/20 16:34 Consult: Onc/Wound/managed services consultant Routine Comment: Operations: None Procedures: None Summary of Care Provided: The patient is a 64 year old F who was directly admitted to PCU after being transferred from [facility] emergency room where she had gone after she was found down at her home, it was estimated that she had been on the floor for 1 day and not able to get up. Work-up in the emergency room included chest x-rays which were concerning for infiltrates in the left upper lobe, white blood cell count was elevated, lactic acid was elevated at 3.8 and the patient's CPK was elevated at 4113. Patient was given IV antibiotics and IV fluids at the emergency room and transferred directly to PCU at [facility] for further care. While on the floor at PCU, she was continued on IV antibiotics and seen by PT and OT. Patient was also given IV fluids. Patient's condition improved during her hospitalization. On 06/23/2020, patient was seen and examined: On examination she appeared her stated age, she does not appear to be in any distress. Vital signs as documented. Skin warm and dry and without overt rashes. Neck without JVD, thyroid appears normal, trachea is midline, neck is supple. Lungs clear, normal air movement was noted. Heart exam notable for regular rhythm, normal sounds and absence of murmurs, rubs or gallops. Abdomen unremarkable and without evidence of organomegaly, masses, or abdominal aortic enlargement, bowel sounds are present in all 4 quadrants, no abdominal tenderness was noted. Extremities nonedematous, no cyanosis was noted, no clubbing was noted. Neuro: Cranial nerves II through XII are grossly intact, no focal motor deficits were noted, sensation to light touch and pinprick is intact, motor exam 5/5 throughout. Psych: Patient is alert and oriented x3, she does not appear anxious or depressed, she does not appear agitated. Patient appears to be stable for discharge home on 06/23/2020, she was instructed to follow-up with her PCP concerning her left lung carcinoid, before she left the hospital, she was given an appointment at her oncologist office for follow-up concerning this carcinoid tumor. Patient Problems: Active and Suspected Problems (Last Updated 06/19/20 @ 16:[address] Jake Andrade, ) Severe sepsis (Acute) Pneumonia (Acute) DARRYL (acute kidney injury) (Acute) Skin abrasion (Acute) Lactic acidosis (Acute) - Physical Exam Vitals/I&O's: Vital Signs Temp Pulse Resp BP Pulse Ox 98.0 F 75 18 179/69 H 95 06/23/20 11:20 06/23/20 11:20 06/23/20 11:20 06/23/20 11:20 06/23/20 11:20 Oxygen Flow Rate (L/min) 2 Oxygen Delivery Method Room Air Weight: 146.737 kg Body Mass Index (BMI) 47.7 Finger Stick Blood Glucose 158 Intake and Output for Last 24 Hours 06/23/20 06/24/20 06/25/20 23:59 23:59 23:59 Intake Total 2643.33 / 2643.33 Output Total 1200 / 1200 Balance 1443.33 / 1443.33 Microbiology Past 72 Hours 06/19/20 17:40 Blood Culture (Wb) - Right Hand Blood Culture - Final No growth in 5 days. 06/19/20 20:20 Blood Culture (Wb) - Other Blood Culture - Final No growth in 5 days. Discharge Activity: Return to Normal Activity Weight Bearing Status: Full weight bearing Home Medications: Medications to take at Discharge Albuterol Sulfate [Proventil Hfa] 6.7 gm IH Q4H PRN PRN 07/12/13 Atorvastatin Calcium [Lipitor] 40 mg PO QHS 07/12/13 Multivit-Min/FA/Lycopene/Lut [Centrum Silver Tablet] 1 ea PO DAILY 07/12/13 Valsartan/Hydrochlorothiazide [Diovan Hct 80-12.5 MG Tablet] 1 tab PO DAILY 07/12/13 Doxepin HCl [Sinequan] 75 mg PO QHS 01/27/16 [place]-3 Fatty Acids/Fish Oil [Fish Oil 1,000 mg Capsule] 2 ea PO DAILY 01/27/16 Diclofenac [Voltaren] 75 mg PO BID 06/08/17 metformin 750 mg tablet,extended release 24 hr 1,000 mg PO BID 07/21/17 mirabegron 50 mg tablet,extended release 24 hr 75 mg PO DAILY 12/12/18 Gabapentin [Neurontin] 600 mg PO TID 01/30/19 glipizide 5 mg tablet 5 mg PO DAILY@0730 tab 04/30/20 oxybutynin chloride 10 mg tablet,extended release 24 hr 10 mg PO DAILY 04/30/20 Amitriptyline HCl 75 mg PO QHS 06/12/20 Calcium Carbonate/Vitamin D3 [Calcium 500+D Tablet Chew] 1 ea PO DAILY 06/12/20 Omeprazole 40 mg PO DAILY 06/12/20 Anastrozole 1 mg PO DAILY 06/19/20 Aripiprazole 1 tab PO DAILY 06/19/20 Desvenlafaxine [Desvenlafaxine ER] 1 tab PO DAILY 06/19/20 Gabapentin 300 mg PO TID 06/19/20 Metoprolol Tartrate 12.5 mg PO BID 06/19/20 Oxycodone HCl/Acetaminophen [Percocet 5-325] 1 tab PO Q6H PRN PRN 06/19/20 Sitagliptin Phosphate [Januvia] 50 mg PO DAILY 06/19/20 levoFLOXacin tablet [Levaquin tablet] 750 mg PO DAILY #7 tab 06/23/20 Following Prescriptions Were Given to Patient: levoFLOXacin tablet [Levaquin tablet] 750 mg PO DAILY #7 tab Transmission Status: Received by SRIKANTH [address] Primary Care Physician: Agnes Hernandez DO [Primary Care Provider] - Please follow up with your Primary Care Physician in: this week Please Follow Up With: Kentrell Dean MD Disposition: Home Minutes spent on discharge:: 31 Patient Condition:: Stable Medical Necessity - Tobacco Use Smoking Status: Former smoker Tobacco Use: Non-smoker Meaningful Use Info Meaningful Use Diagnoses (Choose all that apply): None applicable Inpatient E&M: [id number] [facility]
== END 2020-06-23 13:50 | disposition home health service (06) | DRG 871 ==
PROVIDERS: Family Medicine; PCP Family Medicine; Visit Provider Internal Medicine
DX: A41.9 Sepsis, unspecified organism (principal); J18.9 Pneumonia, unspecified organism; J44.0 Chronic obstructive pulmonary disease with (acute) lower respiratory infection; E87.2 Acidosis; Z68.42 Body mass index [BMI] 45.0-49.9, adult; T79.6XXA Traumatic ischemia of muscle, initial encounter; R65.20 Severe sepsis without septic shock; D3A.090 Benign carcinoid tumor of the bronchus and lung; E11.9 Type 2 diabetes mellitus without complications; D47.2 Monoclonal gammopathy; I10 Essential (primary) hypertension; E78.5 Hyperlipidemia, unspecified; E66.01 Morbid (severe) obesity due to excess calories; S80.212A Abrasion, left knee, initial encounter; S80.211A Abrasion, right knee, initial encounter; S50.812A Abrasion of left forearm, initial encounter; S50.811A Abrasion of right forearm, initial encounter; W06.XXXA Fall from bed, initial encounter; Y93.9 Activity, unspecified; Y92.9 Unspecified place or not applicable; Y99.9 Unspecified external cause status; F31.9 Bipolar disorder, unspecified; G47.30 Sleep apnea, unspecified; K21.9 Gastro-esophageal reflux disease without esophagitis; Z79.84 Long term (current) use of oral hypoglycemic drugs; Z85.3 Personal history of malignant neoplasm of breast; Z87.891 Personal history of nicotine dependence
CPT/HCPCS: 36415; 71250; 80048; 80053; 80202; 82550; 82962; 83036; 83605; 84484; 85025; 87040; 87449; 93005; 94667; 94668; 97110; 97162; 97166; 97530; 97535; 97802; 99251; J7030; J7040; J7050; A4216; G0463

== ENCOUNTER 2020-07-01 18:34 | Inpatient (IN) | payer MEDICARE, MEDICAID, SELFPAY ==
[2020-06-30 13:21] VITALS: BMI 47.5
[2020-07-01 18:14] VITALS: BMI 48.1
[2020-07-01 18:15] VITALS: BP 142/87; PULSE 111; RESP 18; TEMP 36.9; O2SAT 94
[2020-07-01 18:30] VITALS: PULSE 112
[2020-07-01 18:36] VITALS: BMI 48.2
--- NOTE | 2020-07-01 18:38 | PCM.HP.STD ---
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 Patient has been followed up with [facility] since discharge. She was discharged on 06/27/20 and first seen by [facility] on 06/29/20. She was found to be at her baseline. Today, she was found to be confused, with expressive aphasia. She was sent to the [facility] ED. Her vitals was reported stable. Her labs showed : WBC 6.6, Hb 11.0, Plt 215, INR 1.3, UA is unremarkable. BMP showed BUN 31, Cr 1.44, CPK was 82. Lactic acid was 3.9. High sensitivity troponin 6.7. EKG in [facility] ED showed NSR,PVCs, incomplete LBBB. CXR showed left upper lobe collapse with slight interval change in aeration. CT brain was unremarkable. At the time of being seen in [facility], patient still had some expressive aphasia. She denied any weakness in her extremities. Denied any tinging or numbness. Past Medical History Past Medical History (Chronic Problems): Chronic Problems (Last Reviewed 06/30/20 @ 13:03 by Nadine Murdock) Elevated LFTs (Chronic) Jaw pain (Chronic) Hyperglobulinemia (Chronic) MGUS (monoclonal gammopathy of unknown significance) (Chronic) Breast cancer (Chronic) History of left breast cancer (Chronic) Lung nodule, multiple (Chronic) Postmenopausal bleeding (Chronic) plan d and c hysteroscopy, may be combo case with cj if she recommends surgery? Hypertension (Chronic) Hyperlipidemia (Chronic) Medical History: Medical History (Last Reviewed 06/30/20 @ 13:03 by Nadine Murdock) Hypertension (Chronic) I10 Hyperlipidemia (Chronic) E78.5 Carcinoid tumor D3A.00 Bipolar disorder F31.9 Bowel obstruction K56.609 COPD (chronic obstructive pulmonary disease) J44.9 Depression F32.9 Diabetes mellitus E11.9 GERD (gastroesophageal reflux disease) K21.9 Hernia K46.9 Sleep apnea G47.30 Breast cancer C50.919 Allergies codeine Allergy (Severe, Verified 06/30/20 13:03) MEMORY LOSS egg Allergy (Severe, Verified 06/30/20 13:03) FLU SYMTOPMS, WEEKNESS morphine Allergy (Severe, Verified 06/30/20 13:03) CARDIAC ARREST venom-honey bee [bee venom (honey bee)] Allergy (Severe, Verified 06/30/20 13:03) STOP BREATHING vortioxetine [From Brintellix] Allergy (Severe, Verified 06/30/20 13:03) LEGS FELT ON FIRE acetaminophen [From Vicodin] Allergy (Unknown, Verified 06/30/20 13:03) Unknown PATIENT DOES NOT KNOW aspirin Allergy (Unknown, Verified 06/30/20 13:03) Unknown PATIENT WAS ADVISED BY CARDIAC CATH LAB RADIOLOGY TECHNOLOGIST NOT TO TAKE hydrocodone [From Vicodin] Allergy (Unknown, Verified 06/30/20 13:03) PATEINT DOES NOT REMEMBER PATIENT DOES NOT KNOW hydrocodone bitartrate [From Vicodin] Allergy (Unknown, Verified 06/30/20 13:03) PATIENT DOES NOT REMEMBER PATIENT DOES NOT KNOW Penicillins Allergy (Unknown, Verified 06/30/20 13:03) Hives PATIENT DOES NOT REMEMBER propoxyphene napsylate [From Darvocet-N 100] Allergy (Unknown, Verified 06/30/20 13:03) PATEINT DOES NOT REMEMBER FLU SHOT Allergy (Severe, Uncoded 06/30/20 13:03) BECARE DEHYDRATED Home Medications: Ambulatory Orders Medication Instructions Recorded Albuterol Sulfate [Proventil Hfa] 6.7 gm IH Q4H PRN PRN 07/12/13 Atorvastatin Calcium [Lipitor] 40 mg PO QHS 07/12/13 Multivit-Min/FA/Lycopene/Lut 1 ea PO DAILY 07/12/13 [Centrum Silver Tablet] Valsartan/Hydrochlorothiazide 1 tab PO DAILY 07/12/13 [Diovan Hct 80-12.5 MG Tablet] Doxepin HCl [Sinequan] 100 mg PO QHS 01/27/16 [place]-3 Fatty Acids/Fish Oil [Fish 2 ea PO BID 01/27/16 Oil 1,000 mg Capsule] Diclofenac [Voltaren] 75 mg PO BID 06/08/17 mirabegron 50 mg tablet,extended 100 mg PO DAILY 12/12/18 release 24 hr Gabapentin [Neurontin] 800 mg PO TID 01/30/19 oxybutynin chloride 10 mg 10 mg PO DAILY 04/30/20 tablet,extended release 24 hr Calcium Carbonate/Vitamin D3 1 ea PO DAILY 06/12/20 [Calcium 500+D Tablet Chew] Omeprazole 40 mg PO DAILY 06/12/20 Desvenlafaxine [Desvenlafaxine ER] 100 mg PO DAILY 06/19/20 Sitagliptin Phosphate [Januvia] 50 mg PO DAILY 06/19/20 levoFLOXacin tablet [Levaquin 750 mg PO DAILY #7 tab 06/23/20 tablet] Prochlorperazine Maleate 5 mg PO Q6H PRN PRN #20 tab 06/30/20 [Compazine] Glipizide [Glipizide ER] 10 mg PO BID 07/01/20 Metformin HCl 1,000 mg PO BIDCM 07/01/20 Surgical History: Surgical History (Last Reviewed 06/30/20 @ 13:03 by Nadine Murdock) History of cholecystectomy Z98.890, Z90.49 History of dental surgery Z92.89 History of hernia repair Z98.890, Z87.19 History of left heart catheterization Onset Date: 01/28/16 Z98.890 normal coronary arteries History of lumpectomy of left breast Z98.890 LEFT EYE SURGERY Surgical History: cholecystectomy, herniorrhaphy, - - s/p left eye surgery, lumpectomy left breats, left eye surgery, s/p cardiac catj FLOWER CUTTER History: No pertinent FLOWER CUTTER history Lives: With Family Smoking Status: Former smoker Tobacco Use: Non-smoker Alcohol: None Drugs: None - *Family History Maternal Family History: Family History (Last Reviewed 06/30/20 @ 13:03 by Nadine Murdock) Mother Breast cancer, Onset Age: 65 Thyroid disorder Glaucoma Diabetes Hypertension Father CAD (coronary artery disease) Myocardial infarction, Onset Age: 48 Diabetes Uncle CAD (coronary artery disease) Myocardial infarction Grandmother CVA (cerebral vascular accident) History Items: Cancer - Breast CA, Diabetes, Hypertension, - - Thyroid disease Paternal Family History: Family History (Last Reviewed 06/30/20 @ 13:03 by Nadine Murdock) Mother Breast cancer, Onset Age: 65 Thyroid disorder Glaucoma Diabetes Hypertension Father CAD (coronary artery disease) Myocardial infarction, Onset Age: 48 Diabetes Uncle CAD (coronary artery disease) Myocardial infarction Grandmother CVA (cerebral vascular accident) History Items: Diabetes, Heart Disease, Hypertension Review of Systems Constitutional: Denies: Anorexia, Chills, Fever, Malaise, Weakness, Weight Change Eyes: Denies: Blurred vision, Cataracts, Drainage, Eyelid Inflammation HEENT: Denies: Difficulty Hearing, Difficulty Swallowing, Head Aches, Hearing Changes, Sinus Congestion, Sinus Drainage Cardiovascular: Denies: Chest Pain, Heaviness, Light Headedness, Palpitations Respiratory: Denies: Cough, Shortness of breath at rest, Sputum production Gastrointestinal: Denies: Abdominal Pain, Hematemesis, Hematochezia, Nausea, Vomiting Genitourinary: Denies: Dysuria Musculoskeletal: Denies: Joint Pain, Joint stiffness, Joint swelling, Joint Tenderness Skin: Denies: Rash, Wounds Neurological: Reports: Change in Speech. Denies: Balance problems, Difficulty swallowing, Focal weakness, Headaches, Numbness, Tingling Psychiatric: Denies: Anxiety, Depression, Homicidal Ideations, Suicidal Ideations Hematologic/ Lymphatic: Denies: Easy Bruising, Easy Bleeding VTE Information - Inpt Only VTE Present on Admission: No VTE Pharm Prophylaxis ordered?: Yes Patient Problems: Active and Suspected Problems (Last Reviewed 06/30/20 @ 13:03 by Nadine Murdock) DARRYL (acute kidney injury) (Acute) Lactic acidosis (Acute) - Physical Exam Vitals/I&O's: Vital Signs Temp Pulse Resp BP Pulse Ox 98.4 F 111 H 18 142/87 H 94 07/01/20 18:15 07/01/20 18:15 07/01/20 18:15 07/01/20 18:15 07/01/20 18:15 Oxygen Delivery Method Room Air Weight: 147.916 kg Body Mass Index (BMI) 48.1 Finger Stick Blood Glucose 158 General: Alert, Oriented x3, Cooperative, No apparent distress, - - obese HEENT: Atraumatic, PERRLA, EOMI, Normocephalic Neck: Supple Lungs: Clear to auscultation, Normal air movement Cardiovascular: Regular rate, Regular Rhythm, Normal S1, Normal S2, No murmurs Abdomen: Bowel Sounds Present, Soft, Non Tender, Non-Distended, No Hepato-splenomegaly Extremities: No edema Skin: No rashes Musculoskeletal: No Tenderness to Palpation of Joints or Extremities Lymphatic: No Cervical, Supraclavicular, or Inguinal Adenopathy Neurological: Cranial nerves II-XII grossly intact, Neuro grossly intact - except for expressive aphasia Psych/Mental Status: Normal Affect, Appropriate Current Medications Sodium Chloride () 250 mls @ 15 mls/hr IV .[id number] PRN PRN Reason: Saline Flush Sodium Chloride () 250 mls @ 15 mls/hr IV .[id number] PRN PRN Reason: Additional IVPB Infusion Sodium Chloride (0.9% Saline Lock 10 Ml Syringe) 10 - 40 ml IV UD PRN PRN Reason: SALINE FLUSH Assessment/Plan All Active Problems (Last Reviewed 06/30/20 @ 13:03 by Nadine Murdock) Hiccups (Acute) Endocrine neoplasm (Acute) Thrombocytopenia (Resolved) Severe sepsis (Acute) Pneumonia (Acute) DARRYL (acute kidney injury) (Acute) Skin abrasion (Acute) Lactic acidosis (Acute) Breast cancer, left (Resolved) 1. Acute onset of expressive aphasia concerning for possible acute CVA vs localized brain lesion Initial CT brain of head was unremarkable. H/o carcinoid endobrochial tumor Will admit for stroke work-up: MRI brain, MRA head and neck 2d-ECHO, lipid profile, HgbA1c 2. Lactic acidosis, likely secondary to metformin use; no signs of sepsis or hypoxia Lactic acid in outside hospital was 3.9 Will hydrate with IVF, repeat lactic acid per protocol 3. DARRYL, likely pre-renal, baseline Cr 0.83, admitted with Cr 1.44 On Valsartan/HCTZ, metformin; will hold these meds Will continue on IVF, repeat blood work in am 4. Type 2 DM, BS are stable, Will hold Glipizide, metformin, Sitagliptin Monitor blood glucose ACHS, ISS to cover 5. Hypertension, controlled, will continue to monitor off Valsartan/HCTZ 6. Carcinoid endobronchial tumor with accompanying left upper lobe lung collapse Patient has been referred to cardiothoracic surgery 7. Hypomagnesemia, replaced, recheck in am 8. Morbid obesity, BMI 48.2, lifestyle modification recommended 9. Depression, continue on Desvenlafaxine 10. DVT PPx- Lovenox SC 11. Debility - PT/OT to evaluate, care mgt consult for discharge planning Inpatient E&M: [id number] Init Hosp L3
[2020-07-01] MEDS: 0.9% Normal Saline 1,000 ML 150 ML IV (19:02)
[2020-07-01] MEDS: 0.9% Saline Lock 10 ML Syringe IV (19:03)
[2020-07-01 19:07] VITALS: BP 127/69; PULSE 114; RESP 14; TEMP 36.9; O2SAT 94
[2020-07-01 19:54] LABS: Magnesium 1.6 mg/dL (1.6-2.6)
[2020-07-01 20:05] VITALS: O2SAT 93
[2020-07-01 20:16] LABS: Allen Test Positive; Base Excess 2 mmol/L (-2 to +2); Bicarbonate 26.1 mmol/L (22-26); Blood Gas Specimen Type ART; O2 Delivery Device Room Air; PO2 65 mmHG (75-100); SITE L Radial; SO2 93 % (95-99); Total Carbon Dioxide 27 mmol/L; pH 7.42 (7.35-7.45)
[2020-07-01] MEDS: Atorvastatin Calcium 40 MG Tablet PO (21:19)
[2020-07-01] MEDS: Menthol/Lanolin/Calamine/Znox 113 GM Tube 1 APPLIC TOPICAL (21:19)
[2020-07-01 22:20] LABS: Bedside Glucose 132 mg/dL (70-110)
[2020-07-01 22:23] LABS: Lactic Acid 1.6 mmol/L (0.4-1.9)
[2020-07-01] MEDS: MELATONIN 3 MG TABLET PO (22:56)
[2020-07-01 23:00] VITALS: BP 133/73; PULSE 102; RESP 16; TEMP 37; O2SAT 93
[2020-07-02] VITALS (13 sets, daily range): BP systolic 121–173; BP diastolic 80–91; PULSE 93–105; RESP 14–18; TEMP 36.9–37.2; O2SAT 93–95
[2020-07-02 06:33] LABS: Absolute Lymphocyte Count 1.78 X10^3/uL (0.83-4.51); Absolute Neutrophil Count 5.1 X10^3/uL (2.0-7.7); Basophil# 0.04 X10^3/uL; Basophil% 0.5 % (0-1); Eosinophil# 0.15 X10^3/uL; Hematocrit 35.3 % (37-47); Hemoglobin 11.2 g/dL (12.0-15.0); Lymphocyte # 1.78 X10^3/ul (4.0); Lymphocyte % 23.5 % (19-41); Mean Corp Hgb Conc 31.7 g/dL (32-36); Mean Corpuscular Hgb 28.5 pg (27.0-32.0); Mean Corpuscular Volume 89.8 fL (81-99); Mean Platelet Vol. 9.3 fl (6.2-12.0); Monocyte% 6.6 % (0-10); NRBC Flagged by Analyzer 0 % (0-5); Neutrophil # 5.07 X10^3/uL (2.7-7.7); Platelet Count 207 K/mm3 (150-450); RBC Distribution Width CV 14.6 % (11.6-14.6); RBC Distribution Width SD 48.2 fl (35.1-43.9); Red Blood Count 3.93 M/mm3 (4.2-5.4); White Blood Count 7.6 K/mm3 (4.4-11.0)
[2020-07-02] MEDS: Menthol/Lanolin/Calamine/Znox 113 GM Tube 1 APPLIC TOPICAL ×3 (06:33→21:19)
[2020-07-02 06:55] LABS: Bedside Glucose 146 mg/dL (70-110)
[2020-07-02 07:04] LABS: ALB/GLOB Ratio 0.6 RATIO (0.9-2.4); AST(SGOT) 115 U/L (15-37); Alanine Aminotransfer ALT/SGPT 73 U/L (13-56); Albumin, Serum 2.7 g/dL (3.2-5.0); Alkaline Phosphatase 101 U/L (45-117); Anion Gap 7 (5-15); BUN 20 mg/dL (7-18); BUN/Creat Ratio 21.2 RATIO (10-20); Calcium,Total 9.1 mg/dL (8.5-10.1); Chloride 104 mmol/L (98-107); Cholesterol 103 mg/dL (200); Creatinine, Serum 0.94 mg/dL (0.55-1.02); EST Glomerular Filtration Rate 63 mL/min (>60); Est Glom Filt Rate - Afr Amer 77 mL/min (>60); Estimated Creatinine Clearance 63.19 ml/min; Globulin 4.7 g/dL (2.2-4.2); Glucose 160 mg/dL (74-106); High Density Lipoprotein 37 mg/dL; Protein, Total 7.4 g/dL (6.4-8.2); Sodium Level 137 mmol/L (136-145); Triglycerides 217 mg/dL; Very Low Density Lipoprotein 43 mg/dL (5-40)
[2020-07-02 07:05] LABS: CPK Total, Creatine Kinase 81 U/L (26-192)
--- NOTE | 2020-07-02 09:00 | MRI_ITS ---
STUDY: MRA OF THE HEAD WITHOUT CONTRAST REASON FOR EXAM: Female, 64 years old. neuro deficit TECHNIQUE: 3-D [id number]-sb-fpgith (TOF) imaging was performed with MIPs. The study was performed unenhanced. COMPARISON: None. FINDINGS: Normal bilateral petrous carotid arteries. Normal right cavernous carotid artery with a normal supraclinoid bifurcation. Normal left cavernous carotid artery with a normal supraclinoid bifurcation. Normal right A1 segments of the anterior cerebral artery. Normal left A1 segments of the anterior cerebral artery. Normal intact anterior communicating artery (ACOM). Normal bilateral A2 segments of the anterior cerebral arteries. Normal right M1 and M2 segments of the middle cerebral arteries, with a normal M1 bifurcation. Normal left M1 and M2 segments of the middle cerebral arteries, with a normal M1 bifurcation. There is a persistent origin of the right posterior cerebral artery with absence of the P1 segment of the right posterior cerebral artery. Normal left posterior communicating artery (PCOM). Normal bilateral vertebral arteries. Normal basilar artery with a normal basilar bifurcation. The visualized bilateral superior cerebellar (SCA) arteries are normal. Normal bilateral P1, P2 and visualized P3 segments of the posterior cerebral arteries. There is no demonstrated aneurysm of the [place]. There is no major vessel occlusion or hemodynamically significant stenosis. There is no demonstrated abnormality of the visualized brain. MRI/MRA Head ONLY without Contrast IMPRESSION: Normal MRA of the head Electronically Signed: Rey Kenny MD at 11:11 EDT Tel , Service support ,
--- NOTE | 2020-07-02 09:00 | MRI_ITS ---
STUDY: MRA NECK WITH AND WITHOUT CONTRAST REASON FOR EXAM: Female, 64 years old. neuro deficit TECHNIQUE: 3-D xqdt-[id number]-[id number] (TOF) imaging was performed in an 1.5 T MRI scanner. dotarem 29ml iv was administered for the contrast enhanced images. COMPARISON: None. FINDINGS: RIGHT CAROTID ARTERIES: Normal right common carotid artery (CCA). Normal right common carotid bulb. Normal origin of the right internal carotid (ICA) artery without a hemodynamically significant stenosis. Normal visualized cervical portion of the right internal carotid artery. Normal origin of the right external carotid artery (ECA). LEFT CAROTID ARTERIES: Normal left common carotid artery (CCA). Normal left common carotid bulb. Normal origin of the left internal carotid (ICA) artery without a hemodynamically significant stenosis. Normal visualized cervical portion of the left internal carotid artery. Normal origin of the left external carotid artery (ECA). VERTEBRAL ARTERIES: Normal antegrade flow within the bilateral vertebral artery without a hemodynamically significant stenosis. MRI/MRA Neck WITH and W/O Contrast IMPRESSION: Normal bilateral cervical carotid and vertebral arteries. Electronically Signed: Rey Kenny MD at 11:08 EDT Tel , Service support ,
--- NOTE | 2020-07-02 09:00 | MRI_ITS ---
STUDY: MRI BRAIN WITHOUT CONTRAST REASON FOR EXAM: Female, 64 years old. neuro deficit TECHNIQUE: Standardized multiplanar fat and water weighted pulse sequences were obtained. COMPARISON: CT 09/25/2015 FINDINGS: Normal size of the ventricles and extra-axial spaces for the patient''s age. Normal white matter tracts of the supratentorial brain. There is no evidence for recent intracranial ischemia or other cause of cytotoxic edema on diffusion weighted imaging (DWI). Normal T2* images of the brain without demonstrated susceptibility artifact. There is no demonstrated hemosiderin stain. Normal bilateral basal ganglia. Normal thalami. There is no extra-axial fluid accumulation. Normal flow voids within the major intracranial circulation suggesting patency by spin echo criteria. Normal sella turcica, pituitary gland, infundibular stalk, optic chiasm and hypothalamus. Normal tectal plate and pineal gland. Normal midbrain, antolin and medulla. Normal cerebellum. Normal basal cisterns. Normal bilateral temporal bones. Normal bilateral internal auditory canals. No demonstrated orbital abnormality, within the constraints of a routine brain study. Normal visualized paranasal sinuses. Normal calvarium and skull base. Normal visualized soft tissue structures. Normal visualized upper cervical spine. MRI/Brain without Contrast IMPRESSION: Normal unenhanced MRI of the brain. Electronically Signed: Rey Kenny MD at 11:07 EDT Tel , Service support ,
[2020-07-02] MEDS: Pantoprazole Sodium 40 MG Tablet PO (10:35)
[2020-07-02] MEDS: Mirabegron 50 MG TAB.ER.24H 100 MG PO (10:35)
[2020-07-02] MEDS: Enoxaparin 40 MG/0.4 ML Syringe SC (10:35)
[2020-07-02] MEDS: Venlafaxine XR 75 MG Capsule PO (10:35)
[2020-07-02] MEDS: Tolterodine Tartrate 2 MG CAP.SA PO (10:35)
--- NOTE | 2020-07-02 10:43 | CASEMGMT ---
Readmission chart review: Pt was initially admitted as a direct admit from [facility] 06/19-06/23/20 for Rhabdo, pna, sepsis after fall out of bed. Pt lives alone and was discharged home with [facility] for SN, PT/OT and Passport services were resumed. Pt has aides 2hrs every day M-F, Meal service, and med alert button thru [facility], Jacinta Chen is her CM. 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 Dean for same. Pt did f/u with Dr. Dean and [facility] pul[facility]ology since last admission. Pt then returned to [facility] as direct admit from [facility] on 07/01/20 for Altered mental status, expressive aphasia. Pt is currently being evaluated for possible CVA vs localized brain lesion. CM to follow PT/OT and for any further discharge planning/needs. SStpatty RICH CM
[2020-07-02 11:15] LABS: Bedside Glucose 238 mg/dL (70-110)
[2020-07-02] MEDS: Insulin Lispro 100 UNIT/ML INSULN.PEN SC ×3 (11:18→22:57)
--- NOTE | 2020-07-02 12:29 | PCM.PN.HOSP ---
<Lesvia Shearer - Last Filed: 07/02/20 12:29> Patient Problems: Active and Suspected Problems (Last Reviewed 06/30/20 @ 13:03 by Nadine Murdock) DARRYL (acute kidney injury) (Acute) Subjective: Patient seen and examined, sitting in bed, no signs of distress. Patient alert and oriented x3, cooperative at this time. Patient expressive aphasia has resolved at this time. Brain MRI and head and neck MRA negative for acute findings. Patient reports she does not feel confused any longer but is concerned that symptoms may be due to medications. Patient is unable to explain indications for medications that she takes stating I just take what they tell me to. Vitals/I&O's: Vital Signs Temp Pulse Resp BP Pulse Ox 98.4 F 93 18 125/89 H 94 07/02/20 11:16 07/02/20 11:16 07/02/20 11:16 07/02/20 11:16 07/02/20 11:16 Oxygen Delivery Method Room Air Weight: 316 lb 2.286 oz Body Mass Index (BMI) 48.1 Finger Stick Blood Glucose 158 Intake and Output for Last 24 Hours 06/30/20 07/01/20 07/02/20 23:59 23:59 23:59 Intake Total 641.5 / 641.5 1062.5 / 1062.5 Output Total 1400 / 1400 1650 / 1650 Balance -758.5 / -758.5 -587.5 / -587.5 General: Alert, Oriented x3, Cooperative HEENT: Atraumatic, PERRLA, EOMI, Normocephalic Neck: Supple, No JVD, Negative Carotid Bruits Lungs: Clear to auscultation, Normal air movement Cardiovascular: Regular rate, Regular Rhythm, Normal S1, Normal S2, No murmurs Abdomen: Bowel Sounds Present, Soft, Non Tender Extremities: No edema, Capillary Refill Less than 3 Seconds Skin: No rashes, No breakdown Musculoskeletal: No Tenderness to Palpation of Joints or Extremities Neurological: Cranial nerves II-XII grossly intact Psych/Mental Status: Normal Affect, Appropriate, Anxious - Patient states she has a lot of personal issues going on right now with her family but does not want to discuss them at this time Laboratory Results 07/01/20 19:05: Magnesium 1.6, Troponin I < 0.015 07/01/20 19:30: Ammonia 27.0 07/01/20 20:10: Specimen Type ART, Sample Site L Radial, pH 7.42, Bicarbonate Actual 26.1 H, Total CO2 27, Base Excess 2, O2 Saturation 93 L, ABG pCO2 40.0, ABG pO2 65 L, Vahid Test Positive, O2 Delivery Device Room Air 07/01/20 21:15: POC Glucose 132 H 07/01/20 21:46: Troponin I < 0.015 07/01/20 21:46: Lactic Acid 1.6 07/02/20 00:35: Troponin I < 0.015 07/02/20 06:16: WBC 7.6, RBC 3.93 L, Hgb 11.2 L, Hct 35.3 L, MCV 89.8, MCH 28.5, MCHC 31.7 L, RDW Std Deviation 48.2 H, RDW Coeff of Jose Miguel 14.6, Plt Count 207, MPV 9.3, Immature Gran % (Auto) 0.400, Neut % (Auto) 67.0, Lymph % (Auto) 23.5, [place] % (Auto) 6.6, Eos % (Auto) 2.0, Baso % (Auto) 0.5, Absolute Neuts (auto) 5.1, Absolute Lymphs (auto) 1.78, Nucleated RBC % 0 07/02/20 06:16: Sodium 137, Potassium 4.0, Chloride 104, Carbon Dioxide 26.0, Anion Gap 7, BUN 20 H, Creatinine 0.94, Estim Creat Clear Calc 63.19, Est GFR (MDRD) Af Amer 77, Est GFR (MDRD) Non-Af 63, BUN/Creatinine Ratio 21.2 H, Glucose 160 H, Calcium 9.1, Total Bilirubin 0.50, AST 115 H, ALT 73 H, Alkaline Phosphatase 101, Total Protein 7.4, Albumin 2.7 L, Globulin 4.7 H, Albumin/Globulin Ratio 0.6 L, Triglycerides 217 H, Cholesterol 103, LDL Cholesterol 23, VLDL Cholesterol 43 H, HDL Cholesterol 37 L 07/02/20 06:16: Total Creatine Kinase 81 07/02/20 06:27: POC Glucose 146 H 07/02/20 11:11: POC Glucose 238 H Current Medications Atorvastatin Calcium (Atorvastatin Calcium 40 Mg Tablet) 40 mg PO QHS SADE Last Admin: 07/01/20 21:19 Dose: 40 mg Documented by: Calamine/Phenol (Menthol/Lanolin/Calamine/Znox 113 Gm Tube) 1 applic TOPICAL TID [facility]; Protocol Last Admin: 07/02/20 06:33 Dose: 1 applic Documented by: Dextrose (Dextrose 50%-Water 25 Gm/50 Ml Disp.Syrin) 0 gm IV X1 PRN; Protocol PRN Reason: Hypoglycemia Enoxaparin Sodium (Enoxaparin 40 Mg/0.4 Ml Syringe) 40 mg SC DAILY [facility] Last Admin: 07/02/20 10:35 Dose: 40 mg Documented by: Gabapentin (Gabapentin 600 Mg Tablet) 600 mg PO TIDCM SADE Glucagon (Glucagon 1 Mg/Ml Syringe) 1 mg IM .X1 PRN PRN Reason: Hypoglycemia Sodium Chloride () 250 mls @ 15 mls/hr IV .[id number] PRN PRN Reason: Saline Flush Sodium Chloride () 250 mls @ 15 mls/hr IV .[id number] PRN PRN Reason: Additional IVPB Infusion Insulin Human Lispro (Insulin Lispro 100 Unit/Ml Insuln.Pen) 0 unit SC ACHS [facility]; Protocol Last Admin: 07/02/20 11:18 Dose: 2 units Documented by: Melatonin (Melatonin 3 Mg Tablet) 3 mg PO QHS PRN PRN PRN Reason: INSOMNIA Last Admin: 07/01/20 22:56 Dose: 3 mg Documented by: Mirabegron (Mirabegron 50 Mg Tab.Er.24h) 100 mg PO DAILY [facility] Last Admin: 07/02/20 10:35 Dose: 100 mg Documented by: Ondansetron HCl (Ondansetron 4 Mg/2 Ml Vial) 4 mg IV Q8H PRN PRN PRN Reason: NAUSEA/VOMITING Pantoprazole Sodium (Pantoprazole Sodium 40 Mg Tablet) 40 mg PO DAILY [facility] Last Admin: 07/02/20 10:35 Dose: 40 mg Documented by: Sodium Chloride (0.9% Saline Lock 10 Ml Syringe) 10 - 40 ml IV UD PRN PRN Reason: SALINE FLUSH Last Admin: 07/01/20 19:03 Dose: 10 ml Documented by: Tolterodine Tartrate (Tolterodine Tartrate 2 Mg Cap.Sa) 2 mg PO DAILY [facility] Last Admin: 07/02/20 10:35 Dose: 2 mg Documented by: Venlafaxine HCl (Venlafaxine Xr 75 Mg Capsule) 75 mg PO DAILY SADE Last Admin: 07/02/20 10:35 Dose: 75 mg Documented by: STROKE Vital Signs/Narrative: Vital Signs Temp Pulse Resp BP Pulse Ox 07/02/20 11:16 98.4 F 93 18 125/89 H 94 07/02/20 09:05 95 07/02/20 09:00 98.4 F 100 18 121/80 H 95 Medical Necessity - Tobacco Use Smoking Status: Former smoker Tobacco Use: Non-smoker Assessment/Plan All Active Problems (Last Reviewed 06/30/20 @ 13:03 by Nadine Murdock) DARRYL (acute kidney injury) (Acute) 1. Acute onset of expressive aphasia-symptoms have resolved at this time. Stroke work-up negative. Triglycerides mildly elevated at 217 otherwise lipid panel unremarkable. Evaluating patient for polypharmacy as a source of her confusion, altered mental status and aphasic symptoms. Continue to hold Valsartan/HCTZ, glipizide, metformin, sitagliptin. Decrease Neurontin to 600mg TID. Discontinue prochlorperazine. 2. Lactic acidosis-resolved following IV hydration. 3. DARRYL-resolved following IV hydration. Blood pressure stable, continue to hold valsartan hydrochlorothiazide. 4. Diabetes mellitus type 2-blood sugar stable, continue [facility] blood sugar checks with sliding scale insulin coverage. 5. Hypertension-controlled, continue to hold valsartan hydrochlorothiazide. 6. Carcinoid endobronchial tumor with accompanying left upper lobe lung collapse-patient has been referred to cardiothoracic surgery for outpatient evaluation. 7. Hypomagnesemia-magnesium 1.6 last night, given 2 g magnesium sulfate x1 IV. Will recheck level today. 8. Morbid obesity, BMI 46.7-lifestyle modification recommended 9. Depression-continue desvenlafaxine. VT prophylaxis-subcu Lovenox This patient was seen by ADAM Tang under the supervision of Dr. Pineda. <Sam Pineda E - Last Filed: 07/02/20 13:09> Vitals/I&O's: Vital Signs Temp Pulse Resp BP Pulse Ox 98.4 F 93 18 125/89 H 94 07/02/20 11:16 07/02/20 11:16 07/02/20 11:16 07/02/20 11:16 07/02/20 11:16 Oxygen Delivery Method Room Air Weight: 316 lb 2.286 oz Body Mass Index (BMI) 48.1 Finger Stick Blood Glucose 158 Intake and Output for Last 24 Hours 06/30/20 07/01/20 07/02/20 23:59 23:59 23:59 Intake Total 641.5 / 641.5 1062.5 / 1062.5 Output Total 1400 / 1400 1650 / 1650 Balance -758.5 / -758.5 -587.5 / -587.5 Laboratory Results 07/01/20 19:05: Magnesium 1.6, Troponin I < 0.015 07/01/20 19:30: Ammonia 27.0 07/01/20 20:10: Specimen Type ART, Sample Site L Radial, pH 7.42, Bicarbonate Actual 26.1 H, Total CO2 27, Base Excess 2, O2 Saturation 93 L, ABG pCO2 40.0, ABG pO2 65 L, Vahid Test Positive, O2 Delivery Device Room Air 07/01/20 21:15: POC Glucose 132 H 07/01/20 21:46: Troponin I < 0.015 07/01/20 21:46: Lactic Acid 1.6 07/02/20 00:35: Troponin I < 0.015 07/02/20 06:16: WBC 7.6, RBC 3.93 L, Hgb 11.2 L, Hct 35.3 L, MCV 89.8, MCH 28.5, MCHC 31.7 L, RDW Std Deviation 48.2 H, RDW Coeff of Jose Miguel 14.6, Plt Count 207, MPV 9.3, Immature Gran % (Auto) 0.400, Neut % (Auto) 67.0, Lymph % (Auto) 23.5, [place] % (Auto) 6.6, Eos % (Auto) 2.0, Baso % (Auto) 0.5, Absolute Neuts (auto) 5.1, Absolute Lymphs (auto) 1.78, Nucleated RBC % 0 07/02/20 06:16: Sodium 137, Potassium 4.0, Chloride 104, Carbon Dioxide 26.0, Anion Gap 7, BUN 20 H, Creatinine 0.94, Estim Creat Clear Calc 63.19, Est GFR (MDRD) Af Amer 77, Est GFR (MDRD) Non-Af 63, BUN/Creatinine Ratio 21.2 H, Glucose 160 H, Calcium 9.1, Total Bilirubin 0.50, AST 115 H, ALT 73 H, Alkaline Phosphatase 101, Total Protein 7.4, Albumin 2.7 L, Globulin 4.7 H, Albumin/Globulin Ratio 0.6 L, Triglycerides 217 H, Cholesterol 103, LDL Cholesterol 23, VLDL Cholesterol 43 H, HDL Cholesterol 37 L 07/02/20 06:16: Total Creatine Kinase 81 07/02/20 06:16: Hemoglobin A1c Pending 07/02/20 06:16: Magnesium Pending 07/02/20 06:27: POC Glucose 146 H 07/02/20 11:11: POC Glucose 238 H Current Medications Atorvastatin Calcium (Atorvastatin Calcium 40 Mg Tablet) 40 mg PO QHS [facility] Last Admin: 07/01/20 21:19 Dose: 40 mg Documented by: Calamine/Phenol (Menthol/Lanolin/Calamine/Znox 113 Gm Tube) 1 applic TOPICAL TID [facility]; Protocol Last Admin: 07/02/20 06:33 Dose: 1 applic Documented by: Dextrose (Dextrose 50%-Water 25 Gm/50 Ml Disp.Syrin) 0 gm IV X1 PRN; Protocol PRN Reason: Hypoglycemia Enoxaparin Sodium (Enoxaparin 40 Mg/0.4 Ml Syringe) 40 mg SC DAILY [facility] Last Admin: 07/02/20 10:35 Dose: 40 mg Documented by: Gabapentin (Gabapentin 600 Mg Tablet) 600 mg PO TIDCM [facility] Glucagon (Glucagon 1 Mg/Ml Syringe) 1 mg IM .X1 PRN PRN Reason: Hypoglycemia Sodium Chloride () 250 mls @ 15 mls/hr IV .[id number] PRN PRN Reason: Saline Flush Sodium Chloride () 250 mls @ 15 mls/hr IV .[id number] PRN PRN Reason: Additional IVPB Infusion Insulin Human Lispro (Insulin Lispro 100 Unit/Ml Insuln.Pen) 0 unit SC ACHS [facility]; Protocol Last Admin: 07/02/20 11:18 Dose: 2 units Documented by: Melatonin (Melatonin 3 Mg Tablet) 3 mg PO QHS PRN PRN PRN Reason: INSOMNIA Last Admin: 07/01/20 22:56 Dose: 3 mg Documented by: Mirabegron (Mirabegron 50 Mg Tab.Er.24h) 100 mg PO DAILY [facility] Last Admin: 07/02/20 10:35 Dose: 100 mg Documented by: Ondansetron HCl (Ondansetron 4 Mg/2 Ml Vial) 4 mg IV Q8H PRN PRN PRN Reason: NAUSEA/VOMITING Pantoprazole Sodium (Pantoprazole Sodium 40 Mg Tablet) 40 mg PO DAILY [facility] Last Admin: 07/02/20 10:35 Dose: 40 mg Documented by: Sodium Chloride (0.9% Saline Lock 10 Ml Syringe) 10 - 40 ml IV UD PRN PRN Reason: SALINE FLUSH Last Admin: 07/01/20 19:03 Dose: 10 ml Documented by: Tolterodine Tartrate (Tolterodine Tartrate 2 Mg Cap.Sa) 2 mg PO DAILY [facility] Last Admin: 07/02/20 10:35 Dose: 2 mg Documented by: Venlafaxine HCl (Venlafaxine Xr 75 Mg Capsule) 75 mg PO DAILY [facility] Last Admin: 07/02/20 10:35 Dose: 75 mg Documented by: STROKE Vital Signs/Narrative: Vital Signs Temp Pulse Resp BP Pulse Ox 07/02/20 11:16 98.4 F 93 18 125/89 H 94 07/02/20 09:05 95 07/02/20 09:00 98.4 F 100 18 121/80 H 95 Assessment/Plan Hospitalist note: I am seeing this patient in conjunction with Lesvia Quiles. I independently seen and examined the patient. Progress note above, laboratory data and imaging studies reviewed and I concur with above treatment plan. Today, patient is alert and treated x3. She was talking fluently and coherently, no aphasia. She mentioned that she has been following at home, getting more drowsy and she thinks that is because of some of her medications. MRI brain showed no acute infarct or hemorrhage. MRA of the head and neck was unremarkable. Her vital signs were stable. - Physical Exam General: Alert, Oriented x3, Cooperative, No apparent distress. HEENT: Atraumatic, PERRLA, EOMI. Neck: Supple, No JVD, Negative Carotid Bruits, Trachea Midline, Thyroid Normal. Lungs: Diminished breath sounds bilateral, otherwise clear, No rhonchi, No wheeze, No rales. Cardiovascular: Regular rate, Regular Rhythm, Normal S1, Normal S2, PMI Normal. Abdomen: Bowel Sounds Present, Soft, Non Tender, Non-Distended, No Hepato-splenomegaly. Extremities: No clubbing, No cyanosis, No edema Skin: No rashes, No breakdown Neurological: Cranial nerves are intact, neuro grossly intact Vital Signs are stable. Assessment and plan: #1 altered mental status/reported expressive aphasia: Not sure if the patient has speaking difficulty or that is how she speaks. Today, she is speaking fluently and coherently. She is alert and noted x3. MRI brain was unremarkable. MRA of the head and neck showed no acute findings. She has no focal deficit on physical exam. Routine blood work was unremarkable from today. This could be due to medication side effects. Patient has been on Neurontin, desvenlafaxine and Compazine. Plan to decrease Metformin to 600 mg 3 times daily, discontinue Compazine, PT OT, patient may need to go to detention facility. #2 acute kidney injury: Due to dehydration, patient was on IV fluids. Today, kidney function is back to normal. #3 lactic acidosis: Without evidence of infection. Could be because of Metformin. Lactic acid is back to normal with IV fluids. #4 other chronic medical problems: Stable, continue current medications as above. This note was generated with [employer] dictation software. It may contain incorrect words, spelling, and punctuation that were not noted in checking the note before signing. Inpatient E&M: 31520 Subs Hosp L2
[2020-07-02 13:07] LABS: Magnesium 1.8 mg/dL (1.6-2.6)
[2020-07-02 13:42] LABS: Hemoglobin A1c 9.2 % (3.8-5.6)
--- NOTE | 2020-07-02 15:11 | CASEMGMT ---
Addendum entered by Sirisha Barrera 07/02/20 16:27: SW also took a list of local SNF's and highlighted the ones that are in network with her insurance. The list also had Medicare star ratings and Medicare spending/beneficiary information. Sirisha TARIQ Original Note: SW went to patient's room and spoke with her. She remembered SW from her last admission. SW spoke with her about going somewhere for rehab. She said she would go, but she has to handle some legal issues. She told SW her issues with her mom and girlfriend. She said she has to talk with legal counsel. SW asked if SW gave her the phone number for [facility] would this help and she said it would. SW printed out the information for [facility] and gave it to patient. Sirisha TARIQ
[2020-07-02 15:36] LABS: Bacteria 0 SEEN /hpf (None Seen); Mucous, Urine 0 SEEN /hpf (<or=2+)
[2020-07-02 15:38] LABS: Color, Urine Yellow (Yellow); Glucose, Dipstick 50 mg/dl (Normal); Ketone-Dipstick Negative (Negative); Leukocyte Esterase-Dipstick 500 /ul (Negative); Nitrite-Dipstick Negative (Negative); Occult Blood-Urine 150 /ul (Negative); Protein-Dipstick 30 mg/dl (Negative); Urine Bilirubin Dipstick Negative (Negative); Urine Clarity Sl. Cloudy (Clear); Urine Urobilinogen Normal (Normal)
[2020-07-02 15:49] LABS: Red Blood Cells-Urine 25-50 SEEN /hpf (0-5)
[2020-07-02 15:50] LABS: Squamous Epithelial Cells - UA 5-10 SEEN /hpf (5-10)
[2020-07-02 15:57] LABS: White Blood Cells 10-25 SEEN /hpf (0-5)
[2020-07-02] MEDS: Gabapentin 600 MG Tablet PO (16:13)
[2020-07-02 16:21] LABS: Bedside Glucose 184 mg/dL (70-110)
[2020-07-02] MEDS: Atorvastatin Calcium 40 MG Tablet PO (21:19)
[2020-07-02] MEDS: BACITRACIN 15 GM Tube 1 APPLIC TOPICAL (22:57)
[2020-07-02] MEDS: MELATONIN 3 MG TABLET PO (23:42)
[2020-07-03] VITALS (7 sets, daily range): BP systolic 126–131; BP diastolic 69–93; PULSE 88–103; RESP 16–20; TEMP 36.7–36.8; O2SAT 93–95
[2020-07-03 00:41] LABS: Bedside Glucose 165 mg/dL (70-110)
[2020-07-03] MEDS: Menthol/Lanolin/Calamine/Znox 113 GM Tube 1 APPLIC TOPICAL (06:29)
[2020-07-03] MEDS: Insulin Lispro 100 UNIT/ML INSULN.PEN SC ×2 (06:30→11:14)
[2020-07-03 06:35] LABS: Bedside Glucose 187 mg/dL (70-110)
--- NOTE | 2020-07-03 08:48 | CASEMGMT ---
LOREN spoke with patient this am about her plan. She said she is going home at discharge to take care of some things and then she will go to the intermediate. SW again tried to explain to her it is going to be a lot harder to get into a SNF from home compared to going from the hospital. She said she understands, but LOREN is not sure she does completely understand. LOREN gave her a list of in network SNFs yesterday and LOREN reminded her she has that list. LOREN told her we will communicate with her home health that she wants to go to a SNF from home. Plan: d/c home with resumption of Passport services and home health to help get her into SNF from home. Sirisha PARSONS AUTOMOBILE RELOCATION ENGINEER
[2020-07-03] MEDS: Mirabegron 50 MG TAB.ER.24H 100 MG PO (08:50)
[2020-07-03] MEDS: Venlafaxine XR 75 MG Capsule PO (08:50)
[2020-07-03] MEDS: Gabapentin 600 MG Tablet PO ×2 (08:50→11:15)
[2020-07-03] MEDS: Pantoprazole Sodium 40 MG Tablet PO (08:50)
[2020-07-03] MEDS: BACITRACIN 15 GM Tube 1 APPLIC TOPICAL (08:51)
[2020-07-03] MEDS: Enoxaparin 40 MG/0.4 ML Syringe SC (08:51)
[2020-07-03] MEDS: Tolterodine Tartrate 2 MG CAP.SA PO (08:51)
--- NOTE | 2020-07-03 10:15 | CASEMGMT ---
Addendum entered by Sirisha Barrera 07/03/20 11:35: Discharge instructions, med list, and order to resume HH were faxed to [facility]. D/c instructions and med list were faxed to [facility]. Sirisha PARSONS UNDERWEAR CUTTER Original Note: SW called [facility] and spoke with Nadine. SW let her know patient is being discharged home today. SW let her know patient is saying she will go to a SNF, but she has to go home first. SW will fax d/c instructions and resumption order to [facility]. Plan: d/c home with resumption of Passport services and home health with [facility]. Sirisha PARSONS UNDERWEAR CUTTER
--- NOTE | 2020-07-03 11:13 | PCM.DC ---
- Discharge Diagnoses Current Active Problems: Current Active and Chronic Problems (Last Reviewed 06/30/20 @ 13:03 by Nadine Murdock) DARRYL (acute kidney injury) (Acute) Hypertension (Chronic) Hyperlipidemia (Chronic) You will use the following diet at home:: No restrictions, Regular Your food should be the consistency of: Regular Your liquids should be the consistency of: Regular/Thin Discharge Activity: Return to Normal Activity Allergies/Adverse Reactions: Allergies codeine Allergy (Severe, Verified 06/30/20 13:03) MEMORY LOSS egg Allergy (Severe, Verified 06/30/20 13:03) FLU SYMTOPMS, WEEKNESS morphine Allergy (Severe, Verified 06/30/20 13:03) CARDIAC ARREST venom-honey bee [bee venom (honey bee)] Allergy (Severe, Verified 06/30/20 13:03) STOP BREATHING vortioxetine [From Brintellix] Allergy (Severe, Verified 06/30/20 13:03) LEGS FELT ON FIRE acetaminophen [From Vicodin] Allergy (Unknown, Verified 06/30/20 13:03) Unknown PATIENT DOES NOT KNOW aspirin Allergy (Unknown, Verified 06/30/20 13:03) Unknown PATIENT WAS ADVISED BY EYELET PUNCH OPERATOR NOT TO TAKE hydrocodone [From Vicodin] Allergy (Unknown, Verified 06/30/20 13:03) PATEINT DOES NOT REMEMBER PATIENT DOES NOT KNOW hydrocodone bitartrate [From Vicodin] Allergy (Unknown, Verified 06/30/20 13:03) PATIENT DOES NOT REMEMBER PATIENT DOES NOT KNOW Penicillins Allergy (Unknown, Verified 06/30/20 13:03) Hives PATIENT DOES NOT REMEMBER propoxyphene napsylate [From Darvocet-N 100] Allergy (Unknown, Verified 06/30/20 13:03) PATEINT DOES NOT REMEMBER FLU SHOT Allergy (Severe, Uncoded 06/30/20 13:03) BECARE DEHYDRATED Medications to take at Discharge Albuterol Sulfate [Proventil Hfa] 6.7 gm IH Q4H PRN PRN 07/12/13 Atorvastatin Calcium [Lipitor] 40 mg PO QHS 07/12/13 Multivit-Min/FA/Lycopene/Lut [Centrum Silver Tablet] 1 ea PO DAILY 07/12/13 Valsartan/Hydrochlorothiazide [Diovan Hct 80-12.5 MG Tablet] 1 tab PO DAILY 07/12/13 Doxepin HCl [Sinequan] 100 mg PO QHS 01/27/16 Inland-3 Fatty Acids/Fish Oil [Fish Oil 1,000 mg Capsule] 2 ea PO BID 01/27/16 Diclofenac [Voltaren] 75 mg PO BID 06/08/17 mirabegron 50 mg tablet,extended release 24 hr 100 mg PO DAILY 12/12/18 oxybutynin chloride 10 mg tablet,extended release 24 hr 10 mg PO DAILY 04/30/20 Calcium Carbonate/Vitamin D3 [Calcium 500+D Tablet Chew] 1 ea PO DAILY 06/12/20 Omeprazole 40 mg PO DAILY 06/12/20 Desvenlafaxine [Desvenlafaxine ER] 100 mg PO DAILY 06/19/20 Sitagliptin Phosphate [Januvia] 50 mg PO DAILY 06/19/20 levoFLOXacin tablet [Levaquin tablet] 750 mg PO DAILY #7 tab 06/23/20 Glipizide [Glipizide ER] 10 mg PO BID 07/01/20 Metformin HCl 1,000 mg PO BIDCM 07/01/20 Gabapentin [Neurontin] 600 mg PO TIDCM #30 tablet 07/03/20 The following prescriptions were given: Gabapentin [Neurontin] 600 mg PO TIDCM #30 tablet Transmission Status: Pending to [address] Primary Care Physician: Agnes Hernandez DO [Primary Care Provider] - Please follow up with your Primary Care Physician in: Within the next week Test Results: Test results from this visit will be discussed in further detail at your follow-up appointment, if applicable. Proposed Discharge Date: 07/03/20
[2020-07-03 11:31] LABS: Bedside Glucose 278 mg/dL (70-110)
--- NOTE | 2020-07-03 11:54 | PCM.DC.SUM ---
<Alex Simmons - Last Filed: 07/03/20 11:54> Discharge Date and Diagnosis - Problem List Patient Problems: Active and Suspected Problems (Last Reviewed 06/30/20 @ 13:03 by Nadine Murdock) DARRYL (acute kidney injury) (Acute) Date of Admission: 07/01/20 Date of Discharge: 07/03/20 - Primary Discharge Diagnosis Acute Problems: Active Problems (Last Reviewed 06/30/20 @ 13:03 by Nadine Murdock) DARRYL (acute kidney injury) (Acute) - Secondary Discharge Diagnosis Chronic Problems: Chronic Problems (Last Reviewed 06/30/20 @ 13:03 by Nadine Murdock) Endocrine neoplasm (Chronic) Elevated LFTs (Chronic) Jaw pain (Chronic) Hyperglobulinemia (Chronic) MGUS (monoclonal gammopathy of unknown significance) (Chronic) Breast cancer (Chronic) History of left breast cancer (Chronic) Lung nodule, multiple (Chronic) Postmenopausal bleeding (Chronic) plan d and c hysteroscopy, may be combo case with cj if she recommends surgery? Hypertension (Chronic) Hyperlipidemia (Chronic) Hospital Course and Treatment Imaging Results: Clinical Impression(s) from Imaging Studies Brain MRI 07/02/20 09:00 IMPRESSION: Normal unenhanced MRI of the brain. Electronically Signed: Rey Kenny MD at 11:07 EDT Tel , Service support , Head MRA 07/02/20 09:00 IMPRESSION: Normal MRA of the head Electronically Signed: Rye Kenny MD at 11:11 EDT Tel , Service support , Neck MRA 07/02/20 09:00 IMPRESSION: Normal bilateral cervical carotid and vertebral arteries. Electronically Signed: Rey Kenny MD at 11:08 EDT Tel , Service support , Operations: None Summary of Care Provided: Patient is a 64-year-old female who presented to the ED on 07/01/2020 with a chief complaint of confusion and inability to speak. Patient was admitted for stroke rule out, lactic acidosis,and DARRYL. Brain MRI and head/neck MRA unremarkable for stroke. Vital signs stable throughout admission. Patient symptoms likely due to polypharmacy. Patient is a candidate for alf facility per PT/OT eval, however, patient wishes to stay at home due to legal issues. Patient will be managed at home with home health. 1) Altered mental status/Expressive aphasia Assessment - Brain MRI unremarkable - Head and neck MRA unremarkable - Vital signs stable - Symptoms have resolved as patient is alert and oriented to 3 and able to hold conversation Plan - Discontinue Compazine - Change prescription of Neurontin to 600 3 times daily 2) Acute Kidney Injury Assessment - Creatinine 0.94 on 07/02/2020 - Likely due to dehydration - Resolved 3) Lactic Acidosis Assessment - No evidence of infection - Resolved Plan -Resume Metformin at discharge 4) Diabetes mellitus type 2 Assessment - Blood sugar stable - Hemoglobin A1c 9.2 Plan - Continue with outpatient management at discharge - Follow-up with outpatient provider about elevated hemoglobin A1c 5) Hypertension Assessment - Blood pressures stable throughout admission Plan -With outpatient management at discharge 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 Patient seen by Alex Simmons PA-C, under the supervision of Dr. Pineda. Patient Problems: Active and Suspected Problems (Last Reviewed 06/30/20 @ 13:03 by Nadine Murdock) DARRYL (acute kidney injury) (Acute) Subjective: 64-year-old female comfortably eating breakfast. Patient able to hold conversation and discuss her wishes. Objective: Clinical Impression(s) from Imaging Studies Brain MRI 07/02/20 09:00 IMPRESSION: Normal unenhanced MRI of the brain. Electronically Signed: Rey Kenny MD at 11:07 EDT Tel , Service support , Head MRA 07/02/20 09:00 IMPRESSION: Normal MRA of the head Electronically Signed: Rey Kenny MD at 11:11 EDT Tel , Service support , Neck MRA 07/02/20 09:00 IMPRESSION: Normal bilateral cervical carotid and vertebral arteries. Electronically Signed: Rey Kenny MD at 11:08 EDT Tel , Service support , - Physical Exam Vitals/I&O's: Vital Signs Temp Pulse Resp BP Pulse Ox 98.0 F 103 H 18 126/93 H 94 07/03/20 08:54 07/03/20 08:54 07/03/20 08:54 07/03/20 08:54 07/03/20 08:54 Oxygen Flow Rate (L/min) 2 Oxygen Delivery Method Room Air Weight: 308 lb 13.882 oz Body Mass Index (BMI) 48.1 Finger Stick Blood Glucose 158 Intake and Output for Last 24 Hours 07/01/20 07/02/20 07/03/20 23:59 23:59 23:59 Intake Total 641.5 / 641.5 1422.5 / 1472.5 50 / 50 Output Total 1400 / 1400 1950 / 2150 200 / 200 Balance -758.5 / -758.5 -527.5 / -677.5 -150 / -150 General: Alert, Oriented x3, Cooperative HEENT: Atraumatic, PERRLA, EOMI, Normocephalic Neck: Supple, No JVD, Negative Carotid Bruits Lungs: Clear to auscultation, Normal air movement Cardiovascular: Regular rate, No murmurs Abdomen: Bowel Sounds Present, Soft, Non Tender Extremities: No edema, Capillary Refill Less than 3 Seconds Skin: No rashes, No breakdown Musculoskeletal: No Tenderness to Palpation of Joints or Extremities Neurological: Cranial nerves II-XII grossly intact Psych/Mental Status: Normal Affect, Appropriate Microbiology Past 72 Hours 07/02/20 15:00 Urine, Clean Catch Urine Culture - Final Mixed Gram Positive Organisms Laboratory Results 07/02/20 06:16: Hemoglobin A1c 9.2 H 07/02/20 06:16: Magnesium 1.8 07/02/20 15:00: Urine Color Yellow, Urine Clarity Sl. Cloudy, Urine pH 7.0, Ur Specific Scalf 1.010, Urine Protein 30 H, Urine Glucose (UA) 50 H, Urine Ketones Negative, Urine Occult Blood 150 H, Urine Nitrite Negative, Urine Bilirubin Negative, Urine Urobilinogen Normal, Ur Leukocyte Esterase 500 H, Urine RBC 25-50 SEEN, Urine WBC 10-25 SEEN, Ur Squamous Epith Cells 5-10 SEEN, Urine Bacteria 0 SEEN, Urine Mucus 0 SEEN 07/02/20 16:11: POC Glucose 184 H 07/02/20 22:55: POC Glucose 165 H 07/03/20 06:27: POC Glucose 187 H 07/03/20 11:10: POC Glucose 278 H Current Medications Atorvastatin Calcium (Atorvastatin Calcium 40 Mg Tablet) 40 mg PO QHS [facility] Last Admin: 07/02/20 21:19 Dose: 40 mg Documented by: Bacitracin (Bacitracin 15 Gm Tube) 1 applic TOPICAL BID [facility]; Protocol Last Admin: 07/03/20 08:51 Dose: 1 applic Documented by: Calamine/Phenol (Menthol/Lanolin/Calamine/Znox 113 Gm Tube) 1 applic TOPICAL TID [facility]; Protocol Last Admin: 07/03/20 06:29 Dose: 1 applic Documented by: Dextrose (Dextrose 50%-Water 25 Gm/50 Ml Disp.Syrin) 0 gm IV X1 PRN; Protocol PRN Reason: Hypoglycemia Enoxaparin Sodium (Enoxaparin 40 Mg/0.4 Ml Syringe) 40 mg SC DAILY [facility] Last Admin: 07/03/20 08:51 Dose: 40 mg Documented by: Gabapentin (Gabapentin 600 Mg Tablet) 600 mg PO TIDCM [facility] Last Admin: 07/03/20 11:15 Dose: 600 mg Documented by: Glucagon (Glucagon 1 Mg/Ml Syringe) 1 mg IM .X1 PRN PRN Reason: Hypoglycemia Sodium Chloride () 250 mls @ 15 mls/hr IV .[id number] PRN PRN Reason: Saline Flush Sodium Chloride () 250 mls @ 15 mls/hr IV .[id number] PRN PRN Reason: Additional IVPB Infusion Insulin Human Lispro (Insulin Lispro 100 Unit/Ml Insuln.Pen) 0 unit SC ACHS [facility]; Protocol Last Admin: 07/03/20 11:14 Dose: 2 units Documented by: Melatonin (Melatonin 3 Mg Tablet) 3 mg PO QHS PRN PRN PRN Reason: INSOMNIA Last Admin: 07/02/20 23:42 Dose: 3 mg Documented by: Mirabegron (Mirabegron 50 Mg Tab.Er.24h) 100 mg PO DAILY [facility] Last Admin: 07/03/20 08:50 Dose: 100 mg Documented by: Ondansetron HCl (Ondansetron 4 Mg/2 Ml Vial) 4 mg IV Q8H PRN PRN PRN Reason: NAUSEA/VOMITING Pantoprazole Sodium (Pantoprazole Sodium 40 Mg Tablet) 40 mg PO DAILY [facility] Last Admin: 07/03/20 08:50 Dose: 40 mg Documented by: Sodium Chloride (0.9% Saline Lock 10 Ml Syringe) 10 - 40 ml IV UD PRN PRN Reason: SALINE FLUSH Last Admin: 07/01/20 19:03 Dose: 10 ml Documented by: Tolterodine Tartrate (Tolterodine Tartrate 2 Mg Cap.Sa) 2 mg PO DAILY [facility] Last Admin: 07/03/20 08:51 Dose: 2 mg Documented by: Venlafaxine HCl (Venlafaxine Xr 75 Mg Capsule) 75 mg PO DAILY [facility] Last Admin: 07/03/20 08:50 Dose: 75 mg Documented by: Discharge Diet: No Restrictions Discharge Activity: Return to Normal Activity Home Medications: Medications to take at Discharge Albuterol Sulfate [Proventil Hfa] 6.7 gm IH Q4H PRN PRN 07/12/13 Atorvastatin Calcium [Lipitor] 40 mg PO QHS 07/12/13 Multivit-Min/FA/Lycopene/Lut [Centrum Silver Tablet] 1 ea PO DAILY 07/12/13 Valsartan/Hydrochlorothiazide [Diovan Hct 80-12.5 MG Tablet] 1 tab PO DAILY 07/12/13 Doxepin HCl [Sinequan] 100 mg PO QHS 01/27/16 [place]-3 Fatty Acids/Fish Oil [Fish Oil 1,000 mg Capsule] 2 ea PO BID 01/27/16 Diclofenac [Voltaren] 75 mg PO BID 06/08/17 mirabegron 50 mg tablet,extended release 24 hr 100 mg PO DAILY 12/12/18 oxybutynin chloride 10 mg tablet,extended release 24 hr 10 mg PO DAILY 04/30/20 Calcium Carbonate/Vitamin D3 [Calcium 500+D Tablet Chew] 1 ea PO DAILY 06/12/20 Omeprazole 40 mg PO DAILY 06/12/20 Desvenlafaxine [Desvenlafaxine ER] 100 mg PO DAILY 06/19/20 Sitagliptin Phosphate [Januvia] 50 mg PO DAILY 06/19/20 levoFLOXacin tablet [Levaquin tablet] 750 mg PO DAILY #7 tab 06/23/20 Glipizide [Glipizide ER] 10 mg PO BID 07/01/20 Metformin HCl 1,000 mg PO BIDCM 07/01/20 Gabapentin [Neurontin] 600 mg PO TIDCM #30 tablet 07/03/20 Following Prescriptions Were Given to Patient: Gabapentin [Neurontin] 600 mg PO TIDCM #30 tablet Transmission Status: Received by [facility] [address] Primary Care Physician: Agnes Hernandez DO [Primary Care Provider] - Please follow up with your Primary Care Physician in: Within the next week Medical Necessity - Tobacco Use Smoking Status: Former smoker Tobacco Use: Non-smoker Meaningful Use Info Meaningful Use Diagnoses (Choose all that apply): None applicable <[email or web address] E - Last Filed: 07/03/20 14:55> Discharge Date and Diagnosis - Primary Discharge Diagnosis Acute Problems: Active Problems (Last Reviewed 06/30/20 @ 13:03 by Nadine Murdock) #1 after mental status, reported aphasia, resolved, acute stroke ruled out, attributed to medication side effects. #2 acute kidney injury. #3 lactic acidosis, no evidence of infection. Likely due to Metformin. - Secondary Discharge Diagnosis Chronic Problems: Chronic Problems (Last Reviewed 06/30/20 @ 13:03 by Nadine Murdock) Endocrine neoplasm (Chronic) Elevated LFTs (Chronic) Jaw pain (Chronic) Hyperglobulinemia (Chronic) MGUS (monoclonal gammopathy of unknown significance) (Chronic) Breast cancer (Chronic) History of left breast cancer (Chronic) Lung nodule, multiple (Chronic) Postmenopausal bleeding (Chronic) plan d and c hysteroscopy, may be combo case with cj if she recommends surgery? Hypertension (Chronic) Hyperlipidemia (Chronic) Hospital Course and Treatment Procedures: None Summary of Care Provided: Hospitalist note: Discharge summary above reviewed and I concur with above discharge treatment plan and additions as below. Patient was admitted because of confusion and change in mental status as well as reported aphasia. There was a concern that patient may have stroke. She was found to have acute kidney injury which was treated with IV fluids and a kidney function get back to normal. She had MRI brain that showed no evidence of acute stroke or infarct. MRA of head and neck done and showed no evidence of hemodynamically significant vascular disease or stenosis. Acute stroke ruled out. Patient has been on Neurontin, doxepin, desvenlafaxine and was started recently on Compazine for hiccups. During this hospital stay, she had no hiccups. Her altered mental status attributed to medication side effects. Compazine was discontinued. Neurontin was decreased down to 600 mg p.o. 3 times daily. Patient was evaluated by PT OT and recommended placement to alf facility but patient refused to go to halfway. Patient discharged home with home health in a stable medical condition, gabapentin decreased down to 600 mg p.o. 3 times daily, Compazine discontinued, continued on her other previous home medications without any changes, recommended follow-up with PCP in 1 week. - Physical Exam General: Alert, Oriented x3, Cooperative, No apparent distress. HEENT: Atraumatic, PERRLA, EOMI. Neck: Supple, No JVD, Negative Carotid Bruits, Trachea Midline, Thyroid Normal. Lungs: Diminished breath sounds bilateral, otherwise clear, No rhonchi, No wheeze, No rales. Cardiovascular: Regular rate, Regular Rhythm, Normal S1, Normal S2, PMI Normal. Abdomen: Bowel Sounds Present, Soft, Non Tender, Non-Distended, No Hepato-splenomegaly. Extremities: No clubbing, No cyanosis, No edema Skin: No rashes, No breakdown Neurological: Cranial nerves are intact, neuro grossly intact Vital Signs are stable. This note was generated with [email or web address] dictation software. It may contain incorrect words, spelling, and punctuation that were not noted in checking the note before signing. - Physical Exam Vitals/I&O's: Vital Signs Temp Pulse Resp BP Pulse Ox 98.0 F 98 18 126/93 H 94 07/03/20 08:54 07/03/20 11:00 07/03/20 08:54 07/03/20 08:54 07/03/20 08:54 Oxygen Flow Rate (L/min) 2 Oxygen Delivery Method Room Air Weight: 308 lb 13.882 oz Body Mass Index (BMI) 48.1 Finger Stick Blood Glucose 158 Intake and Output for Last 24 Hours 07/01/20 07/02/20 07/03/20 23:59 23:59 23:59 Intake Total 641.5 / 641.5 1422.5 / 1472.5 650 / 650 Output Total 1400 / 1400 1950 / 2150 200 / 200 Balance -758.5 / -758.5 -527.5 / -677.5 450 / 450 Microbiology Past 72 Hours 07/02/20 15:00 Urine, Clean Catch Urine Culture - Final Mixed Gram Positive Organisms Laboratory Results 07/02/20 15:00: Urine Color Yellow, Urine Clarity Sl. Cloudy, Urine pH 7.0, Ur Specific Scalf 1.010, Urine Protein 30 H, Urine Glucose (UA) 50 H, Urine Ketones Negative, Urine Occult Blood 150 H, Urine Nitrite Negative, Urine Bilirubin Negative, Urine Urobilinogen Normal, Ur Leukocyte Esterase 500 H, Urine RBC 25-50 SEEN, Urine WBC 10-25 SEEN, Ur Squamous Epith Cells 5-10 SEEN, Urine Bacteria 0 SEEN, Urine Mucus 0 SEEN 07/02/20 16:11: POC Glucose 184 H 07/02/20 22:55: POC Glucose 165 H 07/03/20 06:27: POC Glucose 187 H 07/03/20 11:10: POC Glucose 278 H Disposition: Home with Home Health Minutes spent on discharge:: 28 Patient Condition:: Stable Meaningful Use Info Meaningful Use Diagnoses (Choose all that apply): None applicable Inpatient E&M: 90848 Disch Hosp
--- NOTE | 2020-07-03 12:41 | PHA.DC.MC ---
Pharmacy Service has performed discharge medication reconciliation and counseling for this patient. The patient was counseled on the following discharge medications and changes in medications for homegoing were reviewed. 1. GABAPENTIN --> DOSE CHANGE The Reason for Use, instructions for use, and potential side effects were reviewed for all new medications. The patient's questions regarding all of their medications were answered. The patient was not able to adequately demonstrate understanding. Home Medications Albuterol Sulfate [Proventil Hfa] 6.7 gm IH Q4H PRN PRN 07/12/13 Atorvastatin Calcium [Lipitor] 40 mg PO QHS 07/12/13 Multivit-Min/FA/Lycopene/Lut [Centrum Silver Tablet] 1 ea PO DAILY 07/12/13 Valsartan/Hydrochlorothiazide [Diovan Hct 80-12.5 MG Tablet] 1 tab PO DAILY 07/12/13 Doxepin HCl [Sinequan] 100 mg PO QHS 01/27/16 [place]-3 Fatty Acids/Fish Oil [Fish Oil 1,000 mg Capsule] 2 ea PO BID 01/27/16 Diclofenac [Voltaren] 75 mg PO BID 06/08/17 mirabegron 50 mg tablet,extended release 24 hr 100 mg PO DAILY 12/12/18 oxybutynin chloride 10 mg tablet,extended release 24 hr 10 mg PO DAILY 04/30/20 Calcium Carbonate/Vitamin D3 [Calcium 500+D Tablet Chew] 1 ea PO DAILY 06/12/20 Omeprazole 40 mg PO DAILY 06/12/20 Desvenlafaxine [Desvenlafaxine ER] 100 mg PO DAILY 06/19/20 Sitagliptin Phosphate [Januvia] 50 mg PO DAILY 06/19/20 levoFLOXacin tablet [Levaquin tablet] 750 mg PO DAILY #7 tab 06/23/20 Glipizide [Glipizide ER] 10 mg PO BID 07/01/20 Metformin HCl 1,000 mg PO BIDCM 07/01/20 Gabapentin [Neurontin] 600 mg PO TIDCM #30 tablet 07/03/20 The patient's discharge medication list was reviewed for discrepancies and discrepancies were resolved.
--- NOTE | 2020-07-03 13:19 | NURSING ---
spoke with staff at [facility] regarding pt request for new pill pods be made to remove medication changes. [facility] staff stated due to current policy and law changes they are unable to make new pill pods but pt could make an appointment and advise what medication she needed to remove from pods. will update pt.
== END 2020-07-03 14:32 | disposition home health service (06) | DRG 92 ==
PROVIDERS: Nurse Practitioner Family; Admitting Provider Internal Medicine; PCP Family Medicine; Referring Provider Internal Medicine; Visit Provider Hospitalist
DX: R47.01 Aphasia (principal); Z68.42 Body mass index [BMI] 45.0-49.9, adult; N17.9 Acute kidney failure, unspecified; E87.2 Acidosis; R41.82 Altered mental status, unspecified; E86.0 Dehydration; T50.915A Adverse effect of multiple unspecified drugs, medicaments and biological substances, initial encounter; D3A.090 Benign carcinoid tumor of the bronchus and lung; E83.42 Hypomagnesemia; J44.9 Chronic obstructive pulmonary disease, unspecified; E11.9 Type 2 diabetes mellitus without complications; I10 Essential (primary) hypertension; E78.5 Hyperlipidemia, unspecified; K21.9 Gastro-esophageal reflux disease without esophagitis; G47.30 Sleep apnea, unspecified; F31.9 Bipolar disorder, unspecified; E66.01 Morbid (severe) obesity due to excess calories; Y92.9 Unspecified place or not applicable; Z79.84 Long term (current) use of oral hypoglycemic drugs; Z79.899 Other long term (current) drug therapy; Z92.21 Personal history of antineoplastic chemotherapy; Z85.3 Personal history of malignant neoplasm of breast; Z87.891 Personal history of nicotine dependence
CPT/HCPCS: 36415; 36600; 70544; 70549; 70551; 80053; 80061; 81001; 82140; 82550; 82803; 82962; 83036; 83605; 83735; 84484; 85025; 87086; 87088; 92526; 92610; 94762; 97162; 97166; A9575; J7030; A4216

== ENCOUNTER → 2020-07-25 12:23 | Outpatient (CLI) | payer MEDICARE, MEDICAID, SELFPAY ==
[2020-06-11 10:50] VITALS: BMI 47.5
[2020-07-01 18:14] VITALS: BMI 48.1
[2020-07-25 12:30] VITALS: PULSE 102; PULSE 103; PULSE 109; PULSE 113; PULSE 114; PULSE 92; O2SAT 92; O2SAT 93; O2SAT 94
--- NOTE | 2020-07-25 13:07 | CPS ---
Pt pushed wheelchair for stability while walking. Pt took a rest from minute 3 thru minute 4. Pt began walking again at start of 5th minute.
--- NOTE | 2020-07-27 07:58 | WT_ITS ---
PSN 6 Minute Walk Test - 6 Minute Walk Test 6 Minute Walk Test: 6 Minute Walk Test PSN:6-Minute Walk Test Start: 07/25/20 12:56 Freq: Status: Active Protocol: [id number] Document 07/25/20 12:30 [facility] (Rec: 07/25/20 13:02 [facility] [id number]) 6 Minute Walk Test Date Performed 07/25/20 Time Performed 12:30 Height 5 ft 9 in Weight: 320 lb Weight in Pounds 320.[address]: Dr Mc Assistive device used: Walker Pre-test Oxygen Delivery Method Room Air Pulse Ox (%) 93 Pulse Rate (60-100 beats/min) 102 H Dyspnea Ashley Scale (0-10) 0 Exertion Ashley Scale (6-20) 6 1st minute Oxygen Delivery Method Room Air Pulse Ox (%) 93 Pulse Rate (60-100 beats/min) 92 2nd minute Oxygen Delivery Method Room Air Pulse Ox (%) 92 Pulse Rate (60-100 beats/min) 103 H 3rd minute Oxygen Delivery Method Room Air Pulse Ox (%) 92 Pulse Rate (60-100 beats/min) 102 H Dyspnea Ashley Scale (0-10) 2 Exertion Ashley Scale (6-20) 14 Number of Rests Taken 1 Reported Symptoms Increased Work of Breathing 4th minute Oxygen Delivery Method Room Air Pulse Ox (%) 93 Pulse Rate (60-100 beats/min) 114 H Dyspnea Ashley Scale (0-10) 2 Number of Rests Taken 1 Reported Symptoms Increased Work of Breathing 5th minute Oxygen Delivery Method Room Air Pulse Ox (%) 94 Pulse Rate (60-100 beats/min) 109 H 6th minute Oxygen Delivery Method Room Air Pulse Ox (%) 93 Pulse Rate (60-100 beats/min) 113 H Dyspnea Ashley Scale (0-10) 2 Exertion Ashley Scale (6-20) 14 Post-test Oxygen Delivery Method Room Air Pulse Ox (%) 94 Pulse Rate (60-100 beats/min) 102 H Full Laps Walked 7 Partial Lap, Number of Tiles Walked 0 Total Distance Walked (ft) 413 - Interpretation Interpretation: The patient ambulated 413 feet over the course of 6 minutes beginning on room air with the use of a walker. Pretesting oxygen saturation was noted to be 93% on room air. The patient did take a rest break from minute 3 through minute 4 of testing. With ambulation, the loretta oxygen saturation was 92%. Although there was evidence of impaired walk distance, there was no significant exertional oxygen desaturation. - Recommendations Recommendations: There is no indication for the use of supplemental oxygen at this time.
== END ==
PROVIDERS: PCP Family Medicine; Visit Provider Internal Medicine Critical Care Medicine
DX: F17.211 Nicotine dependence, cigarettes, in remission (principal)
CPT/HCPCS: 94618

== ENCOUNTER → 2020-09-23 16:12 | Outpatient (CLI) | payer MEDICARE, SELFPAY ==
[2020-08-11 08:55] VITALS: BMI 47.1
--- NOTE | 2020-09-23 16:13 | BI_ITS ---
MAMMOGRAPHY - BILATERAL SCREENING REASON FOR EXAM: Female, 64 years old. Routine annual screening examination. PERTINENT HISTORY: Personal history of breast cancer. Prior left lumpectomy. Mother with breast cancer. TECHNIQUE: Digital bilateral breast verna (3D mammographic acquisition) in the CC and MLO projections. 2-D mediolateral oblique (MLO) and craniocaudad (CC) views of both breasts were obtained. CAD: Full Field Digital Mammography with Computer Added Detection was performed. COMPARISON: Comparison is made with prior study dated 06/29/2019 and 06/27/2018. FINDINGS: Breast Composition: There are scattered areas of fibroglandular density. There are no dominant masses or suspicious calcifications. Once again, the patient is status post left lumpectomy with resultant postoperative architectural distortion in the deep upper lateral aspect of the left breast. There is evidence of overlying skin thickening. There is been no change. No other significant abnormalities are identified. There has been no significant change since the prior study. BI/SCRN MAMM (CAD)W/VERNA BILAT IMPRESSION: Stable bilateral screening mammogram. Yearly follow-up mammogram recommended. (A) ASSESSMENT CATEGORY: BIRADS Category 2: Benign. A letter regarding these results will be sent to the patient by the facility within 30 days. Approximately 10% of breast cancers are not detected by mammography. A normal mammogram should not delay biopsy of a clinically suspicious abnormality. [id number] Electronically Signed: Tima Aguilar MD at 8:51 EDT , Service support ,
== END ==
PROVIDERS: PCP Family Medicine; Referring Provider Family Medicine; Visit Provider Family Medicine
DX: Z12.31 Encounter for screening mammogram for malignant neoplasm of breast (principal)
CPT/HCPCS: 77063; 77067

== ENCOUNTER → 2020-10-03 10:49 | Outpatient (CLI) | payer MEDICARE, SELFPAY ==
[2020-06-11 10:50] VITALS: BMI 47.5
[2020-08-11 08:55] VITALS: BMI 47.1
--- NOTE | 2020-10-04 10:43 | PFT ---
INTRODUCTION: The patient is a 64-year-old female that presents for pulmonary function studies secondary to a diagnosis of tobacco dependency. Respiratory therapy reported good patient effort. Bronchodilators were used during testing. INTERPRETATION: Forced expiration spirometry demonstrates no evidence of a large airways obstructive ventilatory defect. There was no significant response to aerosolized bronchodilators. Spirograms are of poor quality and terminate prior to 6 seconds, likely underestimating FVC. Body plethysmography was performed and reveals lung volumes to be within normal limits. Diffusing capacity by single breath CO is reduced at 76% of predicted. IMPRESSION: Isolated mild reduction in diffusing capacity, which could be related to an underlying pulmonary vascular disorder such as pulmonary hypertension.
== END ==
PROVIDERS: PCP Family Medicine; Referring Provider Internal Medicine Critical Care Medicine; Visit Provider Internal Medicine Critical Care Medicine
DX: R06.02 Shortness of breath (principal)
CPT/HCPCS: 94060; 94726; 94729

== ENCOUNTER → 2020-11-28 08:21 | Outpatient (CLI) | payer MEDICARE, SELFPAY ==
[2020-11-04 09:19] VITALS: BMI 46.1
--- NOTE | 2020-11-28 08:21 | CT_ITS ---
STUDY: CT CHEST WITH CONTRAST REASON FOR EXAM: Female, 64 years old. CARCINOID TUMOR OF BRONCHUS. RADIATION DOSAGE (If Supplied By Facility): CTDIvol = ( 15.06 ) mGy, DLP = ( 724.96 ) mGycm TECHNIQUE: Transaxial imaging was performed following intravenous administration of IV 100mL Isovue-300. Multiplanar coronal and sagittal images were reformatted. Individualized dose optimization techniques were used for this CT. COMPARISON: Comparison is made with prior examination 06/19/2020. FINDINGS: Stable 2 cm x 1.6 cm nodule in the deep inferior medial aspect of the left breast. Stable enlargement of the right lobe of the thyroid with a substernal extension. It is of heterogeneous echotexture suggestive of goitrous enlargement. There is a 11.8 mm nodular density in the distal portion of the left main bronchus heading towards the left upper lobe bronchus. The previously seen in the volume loss in the left upper lobe and postobstructive pneumonitis has almost completely cleared. Mild degree of increased markings persist. This most likely represents mild degree of bronchiectasis. There is no demonstrated pleural abnormality. Stable 4 mm nodule in the medial aspect of the right upper lobe as seen on axial image #35. There are mild calcifications of the coronary arteries. Normal mediastinum. Normal hilar regions. Normal enhanced pulmonary arteries. Normal aorta arch and descending thoracic aorta. There are multi-level degenerative changes of the thoracic spine. Small hiatal hernia. CT/Chest WITH Contrast IMPRESSION: The previously seen mild loss and infiltration in the left upper lobe has cleared with the mild residual scarring and bronchiectasis. 11.8 mm nodular density is seen in the distal portion left mainstem bronchus heading towards the left upper lobe bronchus. Electronically Signed: Tima Aguilar MD at 11:03 EDT , Service support ,
== END ==
PROVIDERS: PCP Family Medicine; Referring Provider Internal Medicine Medical Oncology; Visit Provider Internal Medicine Medical Oncology
DX: D3A.00 Benign carcinoid tumor of unspecified site (principal)
CPT/HCPCS: 71260; Q9967; A4216

== ENCOUNTER → 2020-12-18 | Outpatient (CLI) | payer MEDICARE, MEDICAID, SELFPAY | END | disposition home or self-care (01) | PROVIDERS: PCP Family Medicine; Referring Provider Family Medicine; Visit Provider Family Medicine | DX: R09.81 Nasal congestion (principal); R05 Cough | CPT/HCPCS: 87635; U0005; U0003 ==

== ENCOUNTER → 2021-02-13 11:15 | Outpatient (CLI) | payer MEDICARE, MEDICAID, SELFPAY ==
--- NOTE | 2021-02-13 11:25 | RAD_ITS ---
STUDY: X-RAY CHEST REASON FOR EXAM: Female, 65 years old. PNEUMONIA TECHNIQUE: PA and lateral views of the chest. COMPARISON: , Chest CT 11/28/2020 FINDINGS: The lungs are clear and expanded. There is no demonstrated pleural abnormality. Normal size heart. Normal mediastinum and tara. Normal visualized pulmonary arteries. Normal visualized aortic arch and descending thoracic aorta. There are diffuse degenerative changes of the visualized thoracic spine. Compression fracture of L1 is stable since prior CT. There is no demonstrated abnormality of the visualized soft tissue structures of the upper abdomen. RAD/Chest PA and Lateral IMPRESSION: No airspace consolidation or pleural effusion. Electronically Signed: Marlon Chao MD ([place]) at 16:21 EDT , Service support ,
== END ==
PROVIDERS: PCP Family Medicine; Referring Provider Family Medicine; Visit Provider Family Medicine
DX: J18.9 Pneumonia, unspecified organism (principal)
CPT/HCPCS: 71046

== ENCOUNTER 2021-04-21 05:45 | Outpatient (CLI) | payer MEDICARE, MEDICAID, SELFPAY | END 2021-04-21 23:59 | disposition home or self-care (01) | LOC: LABSPEC 04-22 08:29 | PROVIDERS: PCP Family Medicine; Visit Provider Family Medicine | DX: U07.1 COVID-19 (principal) | CPT/HCPCS: 87635; U0003; U0005 ==

== ENCOUNTER 2021-10-08 08:11 | Day surgery (SDC) | payer MEDICARE, MEDICAID, SELFPAY ==
[2021-10-08] VITALS (8 sets, daily range): BP systolic 82–99; BP diastolic 44–75; PULSE 67–79; RESP 16–20; TEMP 36.1–36.7; O2SAT 95–100; BMI 47.7
[2021-10-08] MEDS: Lactated Ringers 1,000 ML 15 ML IV (09:04)
[2021-10-08 09:16] LABS: Bedside Glucose 169 mg/dL (74-106)
[2021-10-08] MEDS: Ipratropium/Albuterol Sulfate 3 ML AMPUL.NEB INHALATION (09:28)
--- NOTE | 2021-10-08 10:56 | DCINST_ITS ---
Discharge Instructions Diet Discharge Diet: No restrictions Activity Discharge Activity: May Not Shower May resume sexual activity in: 3 weeks Additional Activity Instructions:: Avoid bending, pushing, pulling Dressing / Incision Call your doctor if your incision/area has: Continuous Slow Oozing, Sudden Increased Bleeding, Increased Pain/ Swelling, Increased Redness, Foul Smelling Discharge and Swelling at the incision site Call your doctor if you observe: Fever of 101 or Higher, Inability to urinate and Inability to have a bowel movement Suture Line Care: Avoid Pulling/Pushing and Avoid Pinching/Bending Cleanse incision/area with: Do not get Incision Wet Follow Up Care Please Follow Up With: Ronit Aguilera MD When: 1 week, call the office for appointment and bring voiding diary Test Results: Test results from this visit will be discussed in further detail at your follow- up appointment, if applicable. Discharge Plan Admission Attending Provider: Ronit Aguilera Primary Care Provider: Agnes Hernandez Discharge Orders/Prescriptions Prescriptions: New cephalexin [cephalexin] 500 mg capsule 500 mg PO Q12 3 Days Qty: 6 0RF Continued oxybutynin chloride 10 mg tablet extended release 24hr 10 mg PO DAILY atenolol 50 mg tablet 50 mg PO DAILY furosemide 20 mg tablet 20 mg PO BID acetaminophen 650 mg/20.3 mL solution 325 mg PO Q4H PRN (Reason: Pain) (DME) insulin needles (disposable) 30 X 3/4 needle See Rx Instructions .ROUTE .MEDSUPPLY Qty: 1 Rx Instructions: As directed Humulin 70/30 U-100 Insulin 100 unit/mL (70-30) suspension 35 unit subcut BID atorvastatin 40 MG tablet 40 mg PO QHS Label Comments: high cholesterol albuterol sulfate 6.7 GM HFA aerosol inhaler 6.7 gm IH Q4H PRN PRN (Reason: Sob &/Or Wheezing) Label Comments: breathing doxepin 25 MG capsule 100 mg PO QHS omega-3 fatty acids-fish oil 1 EACH capsule 2 each PO BID diclofenac sodium 75 MG tablet 75 mg PO BID omeprazole 40 MG capsule,delayed release(DR/EC) 40 mg PO DAILY calcium carbonate-vitamin D3 1 EACH tablet,chewable 1 each PO DAILY Januvia 50 MG tablet 50 mg PO DAILY metformin 1,000 MG tablet 1,500 mg PO BIDCM glipizide 10 MG tablet extended release 24hr 10 mg PO BID valsartan-hydrochlorothiazide 80-12.5 mg tablet 1 tab PO DAILY magnesium 250 mg Tablet 250 mg PO DAILY desvenlafaxine succinate [Pristiq] 100 mg tablet extended release 24 hr 100 mg PO DAILY Therems-M 9 mg iron-400 mcg tablet 1 tab PO DAILY Referrals / Follow Up: Agnes Hernandez DO [Primary Care Provider] - Disposition Disposition (needs filled in before D/C Order can be placed): Home, Self Care
--- NOTE | 2021-10-08 10:58 | PCM.OPRPT ---
Report of Operation Date of Procedure: 10/08/21 Pre-Operative Diagnosis: Urgency of urination, frequency of urination, nocturnal enuresis Post-Operative Diagnosis: Same Surgery/Procedure Performed:: Axonics stage I Surgeon: Ronit Aguilera Type of Anesthesia: MAC Description of Procedure: The patient is a 65-year-old female with urgency, frequency and nocturnal enuresis refractory to conservative therapies. She now presents for evaluation with Axonics stage I. Informed consent was obtained. The patient was taken to the operating room and placed in prone position on the operating table. She was appropriately padded and secured to the table. Anesthesia monitored the head, neck, airway, IV access and vital signs throughout the case. Once anesthesia was appropriately ministered the patient was prepped and draped in usual sterile fashion. At this time using fluoroscopic visualization, her S3 foramen was identified and intubated with a needle. She had great yokasta response and toe flexion with stimulation of the needle. At this time she began to vomit and the case was aborted. The needle was removed and a Band-Aid was placed. She was rolled over after she finished vomiting onto the recovery room bed and was taken to the recovery room awake, breathing and talking. Complications None Admit VTE Documentation VTE Present on Admission: No VTE Mechan Device Prophylaxis: None VTE Pharm Prophylaxis ordered?: No Reason prophylaxis not ordered:: Treatment Not Indicated
[2021-10-08] MEDS: Lidocaine 1% /Epi 1:100 (20ml) 20 ML Vial (11:24)
== END 2021-10-08 12:32 | disposition home or self-care (01) ==
LOC: SDC 08:13 → AC 08:14
PROVIDERS: PCP Family Medicine; Referring Provider Urology; Visit Provider Urology
PROC: (CPT 64561; principal; 2021-10-08 10:05)
DX: R39.15 Urgency of urination (principal); R35.0 Frequency of micturition; F31.9 Bipolar disorder, unspecified; Z53.09 Procedure and treatment not carried out because of other contraindication; R11.10 Vomiting, unspecified; J44.9 Chronic obstructive pulmonary disease, unspecified; N39.44 Nocturnal enuresis; E66.01 Morbid (severe) obesity due to excess calories; E11.9 Type 2 diabetes mellitus without complications; I10 Essential (primary) hypertension; E78.5 Hyperlipidemia, unspecified; N39.0 Urinary tract infection, site not specified; K58.0 Irritable bowel syndrome with diarrhea; Z78.0 Asymptomatic menopausal state; Z79.84 Long term (current) use of oral hypoglycemic drugs; Z99.81 Dependence on supplemental oxygen; Z79.899 Other long term (current) drug therapy
CPT/HCPCS: 64561; 00630; 76000; 82962; 94640; J7040; J7120; J2405

== ENCOUNTER → 2021-11-16 | Outpatient (CLI) | payer MEDICARE, SELFPAY ==
--- NOTE | 2021-11-16 15:34 | BI_ITS ---
MAMMOGRAPHY - BILATERAL SCREENING 3-D TOMOSYNTHESIS REASON FOR EXAM: Female, 65 years old. Annual screening mammogram. PERTINENT HISTORY: Prior left lumpectomy and mother with breast cancer. TECHNIQUE: 2-D mammograms and 3-D Tomosynthesis of the breast (s) were performed. CAD was performed. COMPARISON: 09/23/2020, 06/29/2019. FINDINGS: The breast composition is almost entirely fat. Stable benign calcifications and postsurgical changes of the left breast. No dense spiculated masses or suspicious microcalcifications are identified. No architectural distortion is identified. There is no skin thickening or retraction. BI/SCRN MAMM (CAD)W/VERNA BILAT IMPRESSION: Stable mammogram with no mammographic signs of malignancy. Routine yearly mammograms recommended. ASSESSMENT CATEGORY: BIRADS Category 2: Benign. A letter regarding these results will be sent to the patient by the facility within 30 days. FOLLOW UP RECOMMENDATION: Yearly follow up mammogram recommended. (A) Approximately 10% of breast cancers are not detected by mammography. A normal mammogram should not delay biopsy of a clinically suspicious abnormality. Electronically Signed: William Clancy MD at 9:50 EDT ,
== END | disposition home or self-care (01) ==
LOC: OPBI 15:33
PROVIDERS: PCP Family Medicine; Visit Provider Family Medicine
DX: Z12.31 Encounter for screening mammogram for malignant neoplasm of breast (principal); Z80.3 Family history of malignant neoplasm of breast
CPT/HCPCS: 77063; 77067

== ENCOUNTER 2021-12-10 07:40 | Day surgery (SDC) | payer MEDICARE, SELFPAY ==
[2021-12-10 08:04] VITALS: BP 123/75; PULSE 82; RESP 16; TEMP 36.1; O2SAT 95; BMI 47.5
[2021-12-10] MEDS: Lactated Ringers 1,000 ML 15 ML IV (08:10)
[2021-12-10] MEDS: Vancomycin IV 1,000 MG/200 ML BAG 200 MG IV (08:13)
[2021-12-10 08:31] LABS: Bedside Glucose 180 mg/dL (74-106)
[2021-12-10] MEDS: Lidocaine 1% /Epi 1:100 (20ml) 20 ML Vial (10:00)
[2021-12-10 10:15] VITALS: BP 123/75; BP 99/51; PULSE 80; RESP 18; TEMP 36.6; O2SAT 96
[2021-12-10 10:20] VITALS: BP 105/58; BP 123/75; PULSE 76; RESP 18; O2SAT 99
[2021-12-10 10:25] VITALS: BP 115/66; BP 123/75; PULSE 75; RESP 18; O2SAT 98
[2021-12-10 10:29] VITALS: BP 123/75; BP 126/65; PULSE 76; RESP 18; TEMP 36.7; O2SAT 98
--- NOTE | 2021-12-10 10:30 | DCINST_ITS ---
Discharge Instructions Diet Discharge Diet: No restrictions Activity Discharge Activity: Return to Normal Activity Follow Up Care Please Follow Up With: Ronit Aguilera MD When: call for appt in the office Test Results: Test results from this visit will be discussed in further detail at your follow- up appointment, if applicable. Discharge Plan Admission Attending Provider: Ronit Aguilera Primary Care Provider: Agnes Hernandez Discharge Orders/Prescriptions Prescriptions: Continued oxybutynin chloride 10 mg tablet extended release 24hr 10 mg PO DAILY atenolol 50 mg tablet 50 mg PO DAILY furosemide 20 mg tablet 20 mg PO BID acetaminophen 650 mg/20.3 mL solution 325 mg PO Q4H PRN (Reason: Pain) (DME) insulin needles (disposable) 30 X 3/4 needle See Rx Instructions .ROUTE .MEDSUPPLY Qty: 1 Rx Instructions: As directed Humulin 70/30 U-100 Insulin 100 unit/mL (70-30) suspension 38 unit subcut BID lamotrigine 25 mg tablet 100 mg PO ONCE atorvastatin 40 MG tablet 40 mg PO QHS Label Comments: high cholesterol albuterol sulfate 6.7 GM HFA aerosol inhaler 6.7 gm IH Q4H PRN PRN (Reason: Sob &/Or Wheezing) Label Comments: breathing doxepin 25 MG capsule 100 mg PO QHS omega-3 fatty acids-fish oil 1 EACH capsule 2 each PO BID diclofenac sodium 75 MG tablet 75 mg PO BID omeprazole 40 MG capsule,delayed release(DR/EC) 40 mg PO DAILY calcium carbonate-vitamin D3 1 EACH tablet,chewable 1 each PO DAILY Januvia 50 MG tablet 50 mg PO DAILY metformin 1,000 MG tablet 1,500 mg PO BIDCM valsartan-hydrochlorothiazide 80-12.5 mg tablet 1 tab PO DAILY desvenlafaxine succinate [Pristiq] 100 mg tablet extended release 24 hr 100 mg PO DAILY Therems-M 9 mg iron-400 mcg tablet 1 tab PO DAILY Referrals / Follow Up: Agnes Hernandez DO [Primary Care Provider] - Disposition Disposition (needs filled in before D/C Order can be placed): Home, Self Care
[2021-12-10 11:09] VITALS: BP 108/46; BP 123/75; PULSE 78; RESP 16; TEMP 36.6; O2SAT 95
== END 2021-12-10 11:19 | disposition home or self-care (01) ==
LOC: SDC 07:41 → AC 07:43
PROVIDERS: PCP Family Medicine; Referring Provider Urology; Visit Provider Urology
PROC: (CPT 64561; principal; 2021-12-10 09:45)
DX: N39.46 Mixed incontinence (principal); J44.9 Chronic obstructive pulmonary disease, unspecified; E66.01 Morbid (severe) obesity due to excess calories; E11.9 Type 2 diabetes mellitus without complications; Z53.8 Procedure and treatment not carried out for other reasons; N39.44 Nocturnal enuresis; R11.10 Vomiting, unspecified; N39.0 Urinary tract infection, site not specified; R35.0 Frequency of micturition; I10 Essential (primary) hypertension; Z79.84 Long term (current) use of oral hypoglycemic drugs; Z79.899 Other long term (current) drug therapy; Z87.891 Personal history of nicotine dependence
CPT/HCPCS: 64561; 00300; 82962; J7120; J2405

== ENCOUNTER → 2022-02-11 | Outpatient (CLI) | payer MEDICARE, SELFPAY ==
[2022-02-11 18:20] LABS: Anion Gap 12 (5-15); BUN 26 mg/dL (7-18); BUN/Creat Ratio 18.7 RATIO (10-20); Chloride 98 mmol/L (98-107); Creatinine, Serum 1.39 mg/dL (0.55-1.02); EST Glomerular Filtration Rate 40 mL/min (>60); Est Glom Filt Rate - Afr Amer 49 mL/min (>60); Glucose 238 mg/dL (74-106); Potassium 4.5 mmol/L (3.5-5.1); Sodium Level 135 mmol/L (136-145)
[2022-02-11 18:38] LABS: Vitamin D,25 Hydroxy 34.7 ng/mL
== END | disposition home or self-care (01) ==
LOC: BFHLAB 14:20
PROVIDERS: PCP Family Medicine; Visit Provider Family Medicine
DX: I10 Essential (primary) hypertension (principal); E55.9 Vitamin D deficiency, unspecified
CPT/HCPCS: 36415; 80048; 82306

== ENCOUNTER → 2022-03-22 | Outpatient (CLI) | payer MEDICARE, SELFPAY ==
--- NOTE | 2022-03-22 15:30 | RAD_ITS ---
STUDY: X-RAY - PELVIS AND LEFT HIP REASON FOR EXAM: Female, 66 years old. L HIP PAIN TECHNIQUE: 3 views of the pelvis and hip. COMPARISON: CT pelvis January 09, 2019 FINDINGS: There is a non-specific bowel gas pattern. Normal visualized soft tissue structures. There is Visualized degenerative change of the lower lumbar spine. There is narrowing with cortical sclerosis and osteophyte formation of the sacroiliac joint consistent with degenerative osteoarthritic changes. Normal bilateral superior and inferior pubic rami. Normal pubic symphysis. Normal bilateral ischial tuberosities. Normal visualized femoral head. Normal acetabulum. Normal hip joint. There is visualized severe narrowing of the right hip joint with acetabular spurring and subchondral cyst formation and subtle remodeling. There is moderate narrowing of the left hip joint subchondral cyst formation. RAD/HIP, UNI W/ Pelvis 2-3 Views IMPRESSION: Moderate to severe Degenerative change of the right greater than left hip joints. Electronically Signed: Joy Valdivia MD at 18:54 EST Reading Location ID and State: [facility] / [place] Tel , Service support ,
== END | disposition home or self-care (01) ==
LOC: RAD 15:23
PROVIDERS: PCP Family Medicine; Referring Provider Family Medicine; Visit Provider Family Medicine
DX: M25.552 Pain in left hip (principal)
CPT/HCPCS: 73502

== ENCOUNTER → 2022-05-06 | Outpatient (CLI) | payer MEDICARE, SELFPAY ==
[2022-05-06 17:48] LABS: Absolute Lymphocyte Count 2.81 X10^3/uL (0.83-4.51); Absolute Neutrophil Count 3.6 X10^3/uL (2.0-7.7); Basophil# 0.02 X10^3/uL; Basophil% 0.3 % (0-1); Eosinophil# 0.18 X10^3/uL; Eosinophils% 2.5 % (0-5); Hematocrit 38.4 % (37-47); Hemoglobin 12.1 g/dL (12.0-15.0); Lymphocyte # 2.81 X10^3/ul (0.83-4.51); Lymphocyte % 38.8 % (19-41); Mean Corp Hgb Conc 31.5 g/dL (32-36); Mean Corpuscular Hgb 27.6 pg (27.0-32.0); Mean Corpuscular Volume 87.7 fL (81-99); Mean Platelet Vol. 10.9 fl (6.2-12.0); Monocyte# 0.59 X10^3/uL; Monocyte% 8.1 % (0-10); NRBC Flagged by Analyzer 0 % (0-5); Neutrophil # 3.63 X10^3/uL (2.7-7.7); Platelet Count 223 K/mm3 (150-450); RBC Distribution Width CV 13.8 % (11.6-14.6); RBC Distribution Width SD 44.1 fl (35.1-43.9); Red Blood Count 4.38 M/mm3 (4.2-5.4); White Blood Count 7.3 K/mm3 (4.4-11.0)
[2022-05-06 18:10] LABS: ALB/GLOB Ratio 0.7 RATIO (0.9-2.4); AST(SGOT) 51 U/L (15-37); Alanine Aminotransfer ALT/SGPT 54 U/L (13-56); Albumin, Serum 3.3 g/dL (3.2-5.0); Alkaline Phosphatase 82 U/L (45-117); Anion Gap 10 (5-15); BUN 26 mg/dL (7-18); BUN/Creat Ratio 21.8 RATIO (10-20); Chloride 97 mmol/L (98-107); Cholesterol 141 mg/dL (200); Creatinine, Serum 1.19 mg/dL (0.55-1.02); EST Glomerular Filtration Rate 48 mL/min (>60); Est Glom Filt Rate - Afr Amer 58 mL/min (>60); Globulin 4.8 g/dL (2.2-4.2); Glucose 209 mg/dL (74-106); High Density Lipoprotein 49 mg/dL; Potassium 4.1 mmol/L (3.5-5.1); Protein, Total 8.1 g/dL (6.4-8.2); Sodium Level 136 mmol/L (136-145); Triglycerides 287 mg/dL; Very Low Density Lipoprotein 57 mg/dL (5-40)
== END | disposition home or self-care (01) ==
LOC: BFHLAB 15:52
PROVIDERS: PCP Family Medicine; Visit Provider Family Medicine
DX: R53.83 Other fatigue (principal); E78.5 Hyperlipidemia, unspecified; Z51.81 Encounter for therapeutic drug level monitoring
CPT/HCPCS: 36415; 80053; 80061; 85025

== ENCOUNTER 2022-06-01 14:34 | Outpatient (RCR) | payer MEDICARE, MEDICAID, SELFPAY ==
--- NOTE | 2022-06-01 16:47 | HP.PTEVAL_ITS ---
Patient's Visit Information VIOLETA RODRIGUEZ is a 66 year old F referred to Physical Therapy by Dr. Agnes Hernandez DO with a diagnosis of UNSTAEDINESS ON FEET ,POLYNEUROPATHY ,MORBID OBESITY , CHRONIC COPD. Date of Evaluation: 06/01/22 Physical Therapist: Walker Jarquin, PT, Cert MDT, OCS - Visit Plan Frequency: 1 visit Plan: This patient has multiple comorbities to influence patient condition . Patient will benefit from scooter due to pain with back limits ability to walk , weakness in legs causing patient to fall most recent ~ 2 months ago, SOB with COPD with gait and standing impairs ability to perform ADLS and cooking and housework tasks . Mobility limitations gait be resolved using walker due to distance patient can ambulate < 200 ft with multiple rest periods and SOB. Mobility limitations cant be resolved by manual w/c due to weakness UE ,pain and SOB. Patent has adequate ROM and strength to operate tiller. POV device will significantly improve ability with MRADL'S. The patient has mental and physical abilities to operate safely scooter. Thus patient will benefit from scooter to maximize functional independence. - Subjective This 66 y/o female presents to physical therapy for scooter evaluation. Patient multiple comorbities to influence condition. Patient has limitations with < 200 ft due to pain and weakness BLE. Patient uses FWW short distances. Patient lives alone. Pain located lumbar and hips. Patient lives in apartment will need ramp. Patient has tub with shower chair and grab rails. Patient needs chair when cooking ,cab only stand less than 10 mins. Patient needs tub seat in shower due to unable to stand. Denies paresthesia/tingling. Patient had fall ~ 2 months needed to call EMS to assist up. Patient has SOB with activity and has difficulty with walking distances. VOCATION: disability. SOCAIL: single - Pain Bilateral Back Pain Intensity (Out of 10): 9 Pain Intensity Range: 10 Left Lower Extremity Pain Intensity (Out of 10): 8 Pain Intensity Range: 10 - Objective POSTURE: rounded shoulders head forward. PALPTION: unremarkable. NEURO: c/o paresthesia/tingling left leg ,reflexes L3-,L4-5,L5-S1 1/3. GAIT: ambulates with fww reciprocal pattern mild forward posture antalgic gait 30 ft. BALANCE : FAIR+ with fww. SYMMTRIES: align. AROM: supine flexion 5-110 degrees ,hip flexion 95 degrees. FLEXABLITY: hamstrings mod tight , piriformis mod tight. MMT: quads 4-/5 , hamstrings 4-/5 ,ankle 4/5 ,hip abduction 3/5 ,hip flexion 3+/5 UE grossly 4-/5 shoulders 3+/5 - Goals Goal 1:: Patient will benefit from motorized scooter to maximize functional Independance Goal Time Frame: 4-6 Weeks - Rehabilitation Potential Physical Therapy Diagnosis: This patient has multiple comorbities to influence patient condition . Patient will benefit from scooter due to pain with back limits ability to walk , weakness in legs causing patient to fall most recent ~ 2 months ago, SOB with COPD with gait and standing impairs ability to perform ADLS and cooking and housework tasks . Mobility limitations gait be resolved using walker due to distance patient can ambulate < 200 ft with multiple rest periods and SOB. Mobility limitations cant be resolved by manual w/c due to weakness UE ,pain and SOB. Patent has adequate ROM and strength to operate tiller. POV device will significantly improve ability with MRADL'S. The patient has mental and physical abilities to operate safely scooter. Thus patien will benefit from scooter to maximize functional independence. Rehabilitation Potential: Fair - Anticipated Interventions Patient/Client Instruction: Educate patient on: Condition For the Purpose of:: Other Other: motorized scooter Thank you for the opportunity to evaluate your patient. For Medicare and Medicare HMO plans, please review the plan of care and approve it. It will need to be FAXED BACK to us at [phone] for Medicare purposes. For Medicare only, by signing this I certify the plan of care. Please let me know if there are questions or concerns regarding this plan of care. Physician Signatu re: Date:
--- NOTE | 2022-11-14 18:36 | HP.PT.NRP ---
Patient Information Patient Information: VIOLETA RODRIGUEZ was seen in my office for initial evaluation on 06/01/22. The following Plan of Care was established for this patient: POC Established Initial Frequency: 1 visit Anticipated Interventions Patient/Client Instruction: Educate patient on: Condition For the Purpose of:: Other Other: motorized scooter Last Seen Last Seen: This patient was last seen in our office . Pertinent comments regarding their Physical therapy will appear below: Patient was seen for PT EVALUATION FOR A SCOOTER At this point I will be discontinuing this patient from physical therapy. I would be happy to see this patient again in the future if found appropriate by the physician. Thank you! Walker Jarquin, PT, Cert MDT, OCS
== END 2022-06-01 19:00 | disposition home or self-care (01) ==
LOC: PT 14:34
PROVIDERS: PCP Family Medicine; Referring Provider Family Medicine; Visit Provider Family Medicine
DX: M51.16 Intervertebral disc disorders with radiculopathy, lumbar region (principal); G62.9 Polyneuropathy, unspecified; E66.01 Morbid (severe) obesity due to excess calories; J44.9 Chronic obstructive pulmonary disease, unspecified; R26.81 Unsteadiness on feet
CPT/HCPCS: 97162

== ENCOUNTER → 2022-06-01 | Outpatient (CLI) | payer MEDICARE, MEDICAID, SELFPAY ==
--- NOTE | 2022-06-01 15:49 | CT_ITS ---
STUDY: CT CHEST WITH CONTRAST REASON FOR EXAM: Female, 66 years old. MONITOR CARCINOID TUMOR RADIATION DOSAGE (If Supplied By Facility): CTDIvol = ( 18.38 ) mGy, DLP = ( 723.24 ) mGycm TECHNIQUE: Transaxial imaging was performed following intravenous administration of IV 100mL Isovue-370. Multiplanar coronal and sagittal images were reformatted. Individualized dose optimization techniques were used for this CT. COMPARISON: Comparison is made with prior study dated 11/28/2020. FINDINGS: CHEST 1.2 cm nodule in the deep inferior medial aspect of the left breast with evidence of a surgical clips. This has decreased in size as compared to prior study. Stable heterogeneous appearance of both lobes of the thyroid gland. Stable enlargement of the right lobe of the thyroid gland with evidence of a substernal extension. Stable 4 mm nodular density in the medial aspect of the right upper lobe as seen on axial image #38. The previously seen conglomeration of tiny nodular density in the medial aspect of the left upper lobe is not seen at this time. 4 mm noncalcified nodule in the anterior aspect of the right lower lobe abutting the major fissure as seen on axial image #53. Stable 6.5 mm well-defined nodule in the superior segment of the left lower lobe as seen on axial image #64. There is no demonstrated pleural abnormality. There are calcifications of the coronary arteries. Normal mediastinum. Normal hilar regions. Normal unenhanced pulmonary arteries. Normal aorta arch and descending thoracic aorta. There are multi-level degenerative changes of the thoracic spine. Small hiatal hernia. CT/Chest WITH Contrast IMPRESSION: Resolution of the previously seen reticulonodular pattern in the mid aspect of the left upper lobe. Otherwise stable examination. Electronically Signed: Tima Aguilar MD at 14:07 [facility] ,
== END | disposition home or self-care (01) ==
LOC: CT 15:47
PROVIDERS: PCP Family Medicine; Referring Provider Internal Medicine Medical Oncology; Visit Provider Internal Medicine Medical Oncology
DX: D3A.00 Benign carcinoid tumor of unspecified site (principal)
CPT/HCPCS: 71260; Q9967; A4216

== ENCOUNTER → 2022-08-10 | Outpatient (CLI) | payer MEDICARE, MEDICAID, SELFPAY ==
[2022-08-10 14:46] LABS: Absolute Lymphocyte Count 2.68 X10^3/uL (0.83-4.51); Absolute Neutrophil Count 6.5 X10^3/uL (2.0-7.7); Basophil# 0.03 X10^3/uL; Basophil% 0.3 % (0-1); Eosinophil# 0.18 X10^3/uL; Eosinophils% 1.8 % (0-5); Hematocrit 37.8 % (37-47); Hemoglobin 11.8 g/dL (12.0-15.0); Lymphocyte # 2.68 X10^3/ul (0.83-4.51); Lymphocyte % 26.7 % (19-41); Mean Corp Hgb Conc 31.2 g/dL (32-36); Mean Corpuscular Hgb 27.3 pg (27.0-32.0); Mean Corpuscular Volume 87.5 fL (81-99); Mean Platelet Vol. 9.6 fl (6.2-12.0); Monocyte# 0.66 X10^3/uL; Monocyte% 6.6 % (0-10); NRBC Flagged by Analyzer 0 % (0-5); Neutrophil # 6.45 X10^3/uL (2.7-7.7); Neutrophil % 64.4 % (47-70); Platelet Count 228 K/mm3 (150-450); RBC Distribution Width CV 14.2 % (11.6-14.6); Red Blood Count 4.32 M/mm3 (4.2-5.4)
[2022-08-10 16:25] LABS: ALB/GLOB Ratio 0.8 RATIO (0.9-2.4); AST(SGOT) 60 U/L (15-37); Alanine Aminotransfer ALT/SGPT 40 U/L (13-56); Albumin, Serum 3.4 g/dL (3.2-5.0); Alkaline Phosphatase 101 U/L (45-117); Anion Gap 8 (5-15); BUN 39 mg/dL (7-18); BUN/Creat Ratio 23.8 RATIO (10-20); Calcium,Total 10.2 mg/dL (8.5-10.1); Chloride 103 mmol/L (98-107); Creatinine, Serum 1.64 mg/dL (0.55-1.02); EST Glomerular Filtration Rate 33 mL/min (>60); Est Glom Filt Rate - Afr Amer 40 mL/min (>60); Globulin 4.3 g/dL (2.2-4.2); Glucose 229 mg/dL (74-106); Potassium 4.2 mmol/L (3.5-5.1); Protein, Total 7.7 g/dL (6.4-8.2); Sodium Level 134 mmol/L (136-145)
== END | disposition home or self-care (01) ==
LOC: PAVLAB 14:09
PROVIDERS: PCP Family Medicine; Referring Provider Family Medicine; Visit Provider Family Medicine
DX: N18.32 Chronic kidney disease, stage 3b (principal); E83.42 Hypomagnesemia; Z51.81 Encounter for therapeutic drug level monitoring
CPT/HCPCS: 36415; 80053; 83735; 85025

== ENCOUNTER → 2022-09-16 | Outpatient (CLI) | payer MEDICARE, MEDICAID, SELFPAY ==
[2022-09-16 18:25] LABS: Absolute Lymphocyte Count 2.53 X10^3/uL (0.83-4.51); Absolute Neutrophil Count 5.6 X10^3/uL (2.0-7.7); Basophil# 0.03 X10^3/uL; Basophil% 0.3 % (0-1); Eosinophil# 0.11 X10^3/uL; Eosinophils% 1.2 % (0-5); Hematocrit 38.6 % (37-47); Hemoglobin 12.2 g/dL (12.0-15.0); Lymphocyte # 2.53 X10^3/ul (0.83-4.51); Lymphocyte % 28.3 % (19-41); Mean Corp Hgb Conc 31.6 g/dL (32-36); Mean Corpuscular Hgb 27.1 pg (27.0-32.0); Mean Corpuscular Volume 85.8 fL (81-99); Mean Platelet Vol. 10.1 fl (6.2-12.0); Monocyte# 0.67 X10^3/uL; Monocyte% 7.5 % (0-10); NRBC Flagged by Analyzer 0 % (0-5); Neutrophil # 5.58 X10^3/uL (2.7-7.7); Neutrophil % 62.5 % (47-70); Platelet Count 160 K/mm3 (150-450); White Blood Count 8.9 K/mm3 (4.4-11.0)
[2022-09-16 19:00] LABS: ALB/GLOB Ratio 0.7 RATIO (0.9-2.4); AST(SGOT) 47 U/L (15-37); Alanine Aminotransfer ALT/SGPT 42 U/L (13-56); Albumin, Serum 3.2 g/dL (3.2-5.0); Alkaline Phosphatase 98 U/L (45-117); Anion Gap 11 (5-15); BUN 39 mg/dL (7-18); BUN/Creat Ratio 26.2 RATIO (10-20); CRP < 2.90 mg/L (0.0-3.0); Calcium,Total 9.9 mg/dL (8.5-10.1); Chloride 100 mmol/L (98-107); Creatinine, Serum 1.49 mg/dL (0.55-1.02); EST Glomerular Filtration Rate 37 mL/min (>60); Est Glom Filt Rate - Afr Amer 45 mL/min (>60); Free T3 1.4 pg/mL (2.18-3.98); Globulin 4.5 g/dL (2.2-4.2); Glucose 411 mg/dL (74-106); Magnesium 2.2 mg/dL (1.6-2.6); Potassium 4.5 mmol/L (3.5-5.1); Protein, Total 7.7 g/dL (6.4-8.2); Sodium Level 136 mmol/L (136-145); T4 Free Direct 1.13 ng/dL (0.76-1.46); Thyroid Stim Hormone (TSH) 1.47 uIU/mL (0.358-3.74); Troponin-I HS 9 pg/mL (3.0-54.0); Uric Acid 7.8 mg/dL (2.6-6.0)
[2022-09-16 19:17] LABS: Erythrocyte Sedimentation Rate 40 mm/hr (0-30)
== END | disposition home or self-care (01) ==
LOC: BFHLAB 14:22
PROVIDERS: PCP Family Medicine; Visit Provider Family Medicine
DX: E83.42 Hypomagnesemia (principal); I50.43 Acute on chronic combined systolic (congestive) and diastolic (congestive) heart failure; M25.50 Pain in unspecified joint; L03.90 Cellulitis, unspecified; R07.9 Chest pain, unspecified; E03.9 Hypothyroidism, unspecified; Z51.81 Encounter for therapeutic drug level monitoring
CPT/HCPCS: 36415; 80053; 83735; 83880; 84439; 84443; 84481; 84484; 84550; 85025; 85652; 86140

== ENCOUNTER → 2022-09-24 | Outpatient (CLI) | payer MEDICARE, MEDICAID, SELFPAY | END | disposition home or self-care (01) | PROVIDERS: PCP Family Medicine; Referring Provider Internal Medicine Critical Care Medicine; Visit Provider Internal Medicine Critical Care Medicine | DX: J44.9 Chronic obstructive pulmonary disease, unspecified (principal) ==

== ENCOUNTER → 2022-10-08 | Outpatient (CLI) | payer MEDICARE, MEDICAID, SELFPAY ==
--- NOTE | 2022-10-09 05:50 | PFTCOMP ---
COMPLETE PULMONARY FUNCTION TEST INTERPRETATION Brief HPI: Patient is a 66-year-old female, currently under the care of Dr. Mc, who presents to [facility] for complete pulmonary function tests secondary to diagnosis of COPD. Respiratory therapist reports good effort and reproducible results. Interpretation: Forced expiration spirometry shows no large airways obstructive ventilatory defect with an FEV1 of 92% predicted. There is no significant bronchodilator response by strict ATS criteria. Spirograms are of poor quality and and show exhalation for only 4-1/2 seconds, likely underestimating FVC. The respiratory flow volume loop shows a normal pattern. Lung volumes by body plethysmography show a normal total lung capacity at 5.95 L, 102% predicted. All other lung volumes are within normal limits. Diffusion capacity by carbon monoxide is decreased at 60% predicted. The airway resistance is normal. Compared to previous pulmonary function tests from 10/03/2020, there is been a significant decrease in FVC, FEV1 and DLCO by 16%, 24% and 20% respectively. Impression: Isolated reduction in diffusing capacity, but significant worsening compared to previous testing
== END | disposition home or self-care (01) ==
LOC: PSN 12:11
PROVIDERS: PCP Family Medicine; Referring Provider Internal Medicine Critical Care Medicine; Visit Provider Internal Medicine Critical Care Medicine
DX: J44.9 Chronic obstructive pulmonary disease, unspecified (principal)
CPT/HCPCS: 94060; 94726; 94729

== ENCOUNTER → 2022-10-13 | Outpatient (CLI) | payer MEDICARE, MEDICAID, SELFPAY ==
--- NOTE | 2022-10-13 13:09 | CPS ---
pt arrived in wheelchair. did not bring her walker and was on room air. Pt states she does have home o2 but doesnt wear it .
--- NOTE | 2022-10-14 10:08 | PCM.PSN.6M ---
PSN 6 Minute Walk Test Interpretation Interpretation: The patient ambulated 413 feet over the course of 6 minutes beginning on room air without assistive devices. Pretesting oxygen saturation was noted to be 95% on room air. With ambulation, the loretta oxygen saturation was 95%. There was no significant exertional oxygen desaturation. Recommendations Recommendations: There is no indication for the use of supplemental oxygen at this time.
== END | disposition home or self-care (01) ==
LOC: PSN 12:20
PROVIDERS: PCP Family Medicine; Referring Provider Internal Medicine Critical Care Medicine; Visit Provider Internal Medicine Critical Care Medicine
DX: J44.9 Chronic obstructive pulmonary disease, unspecified (principal)

== ENCOUNTER 2022-10-21 15:08 | Outpatient (CLI) | payer MEDICARE, MEDICAID, SELFPAY ==
[2022-10-21 17:39] LABS: Absolute Lymphocyte Count 2.32 X10^3/uL (0.83-4.51); Absolute Neutrophil Count 2.8 X10^3/uL (2.0-7.7); Basophil# 0.03 X10^3/uL; Basophil% 0.5 % (0-1); Eosinophil# 0.18 X10^3/uL; Hematocrit 36.6 % (37-47); Hemoglobin 11.7 g/dL (12.0-15.0); Lymphocyte # 2.32 X10^3/ul (0.83-4.51); Mean Corpuscular Hgb 26.5 pg (27.0-32.0); Mean Platelet Vol. 11.4 fl (6.2-12.0); Monocyte# 0.71 X10^3/uL; Monocyte% 11.6 % (0-10); NRBC Flagged by Analyzer 0 % (0-5); Neutrophil # 2.84 X10^3/uL (2.7-7.7); Neutrophil % 46.6 % (47-70); Platelet Count 156 K/mm3 (150-450); RBC Distribution Width SD 42.5 fl (35.1-43.9); Red Blood Count 4.41 M/mm3 (4.2-5.4); White Blood Count 6.1 K/mm3 (4.4-11.0)
[2022-10-21 18:04] LABS: Erythrocyte Sedimentation Rate 48 mm/hr (0-30)
[2022-10-21 18:09] LABS: BNP,B-Type NATRIURETIC PEPTIDE 13.3 pg/mL (0-100)
[2022-10-21 19:05] LABS: ALB/GLOB Ratio 0.6 RATIO (0.9-2.4); AST(SGOT) 34 U/L (15-37); Alanine Aminotransfer ALT/SGPT 36 U/L (13-56); Albumin, Serum 2.8 g/dL (3.2-5.0); Alkaline Phosphatase 102 U/L (45-117); Anion Gap 11 (5-15); BUN 68 mg/dL (7-18); BUN/Creat Ratio 42.5 RATIO (10-20); CRP < 2.90 mg/L (0.0-3.0); Calcium,Total 9.6 mg/dL (8.5-10.1); Chloride 96 mmol/L (98-107); EST Glomerular Filtration Rate 34 mL/min (>60); Est Glom Filt Rate - Afr Amer 41 mL/min (>60); Globulin 4.7 g/dL (2.2-4.2); Glucose 499 mg/dL (74-106); LDH 149 U/L (84-246); Potassium 4.2 mmol/L (3.5-5.1); Protein, Total 7.5 g/dL (6.4-8.2); Sodium Level 129 mmol/L (136-145); Thyroid Stim Hormone (TSH) 1.29 uIU/mL (0.358-3.74); Uric Acid 9.8 mg/dL (2.6-6.0)
== END 2022-10-21 23:59 | disposition home or self-care (01) ==
LOC: BFHLAB 15:10
PROVIDERS: PCP Family Medicine; Referring Provider Family Medicine; Visit Provider Family Medicine
DX: E11.22 Type 2 diabetes mellitus with diabetic chronic kidney disease (principal); N17.9 Acute kidney failure, unspecified; I50.33 Acute on chronic diastolic (congestive) heart failure; E11.21 Type 2 diabetes mellitus with diabetic nephropathy; N18.32 Chronic kidney disease, stage 3b; Z51.81 Encounter for therapeutic drug level monitoring
CPT/HCPCS: 36415; 80053; 83615; 83880; 84443; 84550; 85025; 85652; 86140

== ENCOUNTER 2022-12-03 13:29 | Outpatient (CLI) | payer MEDICARE, MEDICAID, SELFPAY ==
--- NOTE | 2022-12-03 13:50 | CT_ITS ---
STUDY: CT CHEST WITH CONTRAST REASON FOR EXAM: Female, 66 years old. MONITOR LUNG CARCINOID TUMOR RADIATION DOSAGE (If Supplied By Facility): CTDIvol = ( 18.38 ) mGy, DLP = ( 718.21 ) mGycm TECHNIQUE: Transaxial imaging was performed following intravenous administration of IV 100mL Isovue-300. Multiplanar coronal and sagittal images were reformatted. Individualized dose optimization techniques were used for this CT. COMPARISON: Comparison is made with prior study dated June 01, 2022. FINDINGS: CHEST Surgical clips are seen in the medial aspect of the left breast adjacent to a 1.2 cm nodule. Stable heterogeneous enlargement of the thyroid gland more prominent in the right lobe of the thyroid. Stable 4 mm noncalcified nodule in the medial aspect of the right upper lobe as seen on axial image #30. Mild loss in the left hemithorax. Stable 6.5 mm well-defined nodule in the superior symptoms of the right lower lobe as seen on axial image #64. There are calcifications of the coronary arteries. Normal mediastinum. Normal hilar regions. Normal unenhanced pulmonary arteries. Normal aorta arch and descending thoracic aorta. There are multi-level degenerative changes of the thoracic spine. There is no demonstrated abnormality of the visualized upper abdomen. CT/Chest WITH Contrast IMPRESSION: Stable examination. Electronically Signed: Tima Aguilar MD at 14:57 EDT ,
[2022-12-03 14:31] LABS: CREATININE FINGERSTICK < 0.9 mg/dL (0.55-1.02); EGFR FINGERSTICK > 60.0000 mL/min (>60)
[2022-12-03 15:00] LABS: Absolute Lymphocyte Count 2.34 X10^3/uL (0.83-4.51); Absolute Neutrophil Count 4.1 X10^3/uL (2.0-7.7); Basophil# 0.02 X10^3/uL; Basophil% 0.3 % (0-1); Eosinophil# 0.21 X10^3/uL; Eosinophils% 2.9 % (0-5); Hematocrit 33.1 % (37-47); Hemoglobin 10.5 g/dL (12.0-15.0); Lymphocyte # 2.34 X10^3/ul (0.83-4.51); Lymphocyte % 32.1 % (19-41); Mean Corp Hgb Conc 31.7 g/dL (32-36); Mean Corpuscular Hgb 26.6 pg (27.0-32.0); Mean Platelet Vol. 9.9 fl (6.2-12.0); Monocyte# 0.63 X10^3/uL; Monocyte% 8.6 % (0-10); NRBC Flagged by Analyzer 0 % (0-5); Neutrophil # 4.07 X10^3/uL (2.7-7.7); Neutrophil % 55.8 % (47-70); Platelet Count 197 K/mm3 (150-450); RBC Distribution Width SD 45.1 fl (35.1-43.9); Red Blood Count 3.94 M/mm3 (4.2-5.4); White Blood Count 7.3 K/mm3 (4.4-11.0)
[2022-12-03 15:26] LABS: ALB/GLOB Ratio 0.7 RATIO (0.9-2.4); AST(SGOT) 34 U/L (15-37); Alanine Aminotransfer ALT/SGPT 40 U/L (13-56); Albumin, Serum 2.9 g/dL (3.2-5.0); Alkaline Phosphatase 90 U/L (45-117); Anion Gap 6 (5-15); BUN 39 mg/dL (7-18); BUN/Creat Ratio 33.9 RATIO (10-20); Calcium,Total 9.6 mg/dL (8.5-10.1); Chloride 105 mmol/L (98-107); Creatinine, Serum 1.15 mg/dL (0.55-1.02); EST Glomerular Filtration Rate 50 mL/min (>60); Est Glom Filt Rate - Afr Amer 61 mL/min (>60); Globulin 4.3 g/dL (2.2-4.2); Glucose 153 mg/dL (74-106); LDH 157 U/L (84-246); Potassium 4.8 mmol/L (3.5-5.1); Protein, Total 7.2 g/dL (6.4-8.2); Sodium Level 137 mmol/L (136-145)
[2022-12-07 16:09] LABS: Albumin 2.9 g/dL (2.9-4.4); Alpha-1-Globulins 0.3 g/dL (0.0-0.4); Alpha-2-Globulins 1.1 g/dL (0.4-1.0); Free Kappa Light Chains 48.1 mg/L (3.3-19.4); Free Lambda Light Chains 51.1 mg/L (5.7-26.3); Gamma Globulin 1.2 g/dL (0.4-1.8); Immunoglobulin A 527 mg/dL (87-352); Immunoglobulin G 1033 mg/dL (586-1602); Immunoglobulin M 45 mg/dL (26-217); PROEL- TOTAL PROTEIN 6.7 g/dL (6.0-8.5)
== END 2022-12-03 23:59 | disposition home or self-care (01) ==
LOC: CT 13:31
PROVIDERS: PCP Family Medicine; Referring Provider Internal Medicine Medical Oncology; Visit Provider Internal Medicine Medical Oncology
DX: D3A.090 Benign carcinoid tumor of the bronchus and lung (principal); D47.2 Monoclonal gammopathy; Z85.3 Personal history of malignant neoplasm of breast
CPT/HCPCS: 36415; 71260; 80053; 82784; 83615; 83883; 84165; 85025; 86334; Q9967

== ENCOUNTER → 2023-03-03 | Outpatient (CLI) | payer MEDICARE, MEDICAID, SELFPAY ==
--- NOTE | 2021-04-29 12:37 | NURSING ---
patient contacted as she did not show up for her 1215 appointment. patient stated she would not be coming but would like to be rescheduled. informed patient that appointments right now are booking out for a few days and rescheduling before her day 10 of symptoms was unlikely. provided patient opportunity to come to her appointment late, but she declined.
--- NOTE | 2023-03-07 18:43 | STRESSREP ---
Stress Test Report Pharmacologic myocardial perfusion stress test. 67-year-old lady with a history of chest pain and a left bundle branch block Resting EKG demonstrates sinus rhythm with a rate of 82 bpm. Resting blood pressure is 142/92 mmHg. 0.4 mg of regadenoson was infused per usual protocol followed by rapid intravenous saline flush injection. Continuous EKG monitoring was performed. The maximum heart rate was 96 bpm which was 62% of max impacted heart rate the maximum workload was 1 metabolic equivalent. At rest there were no ST or T wave changes noted to suggest ischemia and at peak infusion nonspecific ST changes were noted which did not meet the criteria for ischemia. No clinical angina is noted. The final blood pressure was 130/88 mmHg. Myocardial perfusion protocol. 14.4 mCi of technetium 99m sestamibi was injected at rest. 0.4 mg of regadenoson was infused per usual protocol. At peak infusion 44.7 mCi of technetium 99m sestamibi was injected stress images were obtained stress and rest images were reconstructed and compared in the short axis vertical long and horizontal long axis. Gated images were also obtained. Perfusion SPECT analysis: Review of the stress images demonstrate normal uptake of tracer noted in all areas of the myocardium. The resting images similar demonstrated normal uptake of tracer noted in all areas of the myocardium. No areas of reversibility are noted to suggest ischemia and no previous infarct is noted. Gated SPECT analysis: The gated ejection fraction is 58%. Conclusion: Normal pharmacologic myocardial perfusion stress test. Preserved ejection fraction.
== END | disposition home or self-care (01) ==
PROVIDERS: PCP Family Medicine; Referring Provider Nurse Practitioner Gerontology; Visit Provider Nurse Practitioner Gerontology
DX: Z01.810 Encounter for preprocedural cardiovascular examination (principal); I47.9 Paroxysmal tachycardia, unspecified; U07.1 COVID-19; I44.7 Left bundle-branch block, unspecified; R07.9 Chest pain, unspecified; R00.2 Palpitations
CPT/HCPCS: 78452; 93017; 93225; 93226; A9500; Q0245; J2785

== ENCOUNTER → 2023-03-07 | Outpatient (CLI) | payer MEDICARE, MEDICAID, SELFPAY ==
--- NOTE | 2023-03-07 16:15 | RAD_ITS ---
INDICATION: cough EXAMINATION/TECHNIQUE: X-RAY - XR Chest 2 Views COMPARISON: Prior study dated: 02/13/2021 FINDINGS: LINES/DEVICES: None. LUNGS: The lungs are well expanded. Moderate left-sided pleural effusion with airspace opacity. No edema. No pneumothorax. MEDIASTINUM AND CARDIOVASCULAR STRUCTURES: Cardiac silhouette is unchanged. Central airways and mediastinal contour are unremarkable. BONES AND SOFT TISSUES: No acute abnormality. RAD/Chest PA and Lateral IMPRESSION: Moderate left pleural effusion with airspace opacity which could be atelectasis or pneumonia. Electronically Signed: Braeden Perez MD at 16:35 EST ,
== END | disposition home or self-care (01) ==
LOC: MTRAD 16:15
PROVIDERS: PCP Family Medicine; Referring Provider Physician Assistant; Visit Provider Physician Assistant
DX: R05.9 Cough, unspecified (principal)
CPT/HCPCS: 71046

== ENCOUNTER → 2023-03-16 | Outpatient (CLI) | payer MEDICARE, MEDICAID, SELFPAY ==
--- NOTE | 2023-03-16 14:08 | CT_ITS ---
INDICATION: CARCINOID TUMOR-LUNG EXAMINATION: CT ABDOMEN AND PELVIS WITH CONTRAST - CT Abdomen And Pelvis W/ Contrast Injection TECHNIQUE: Helically acquired images were obtained of the abdomen and pelvis following IV contrast. A radiation dose optimization technique was used for this scan. IV Contrast dosage and agent: 100 cc Isovue-300 Oral contrast: None. COMPARISON: Chest CT 12/03/2022, 11/28/2020 FINDINGS: LOWER CHEST: Stable 7 mm nodule right lower lobe. Stable small left pleural effusion. No cardiomegaly or pericardial effusion. LIVER: Enlarged to 21 cm. No concerning focal mass. GALLBLADDER AND BILIARY TREE: Gallbladder absent. No intra- or extrahepatic biliary ductal dilation. PANCREAS: No focal cystic or solid mass. SPLEEN: Splenomegaly. ADRENAL GLANDS: No nodules. KIDNEYS AND URETERS: Normal renal size and position. No hydronephrosis. PERITONEUM: No ascites or free air. BOWEL: Normal appendix. No stomach or bowel distension. No focal inflammatory change. LYMPH NODES: No enlarged mesenteric or retroperitoneal lymph nodes. VESSELS: Aorta is non-dilated. URINARY BLADDER: Unremarkable. REPRODUCTIVE ORGANS: No pelvic masses. ABDOMINAL WALL: No discrete abdominal or pelvic wall hernia. BONES: No acute or aggressive abnormality. CT/Abdomen/Pelvis W IV Cont ONLY IMPRESSION: Stable 7 mm nodule right lower lobe. No evidence of new pulmonary metastasis within the [id number]. No evidence of metastatic disease within the abdomen or pelvis. Hepatosplenomegaly.. Electronically Signed: Karl Mccormick MD at 23:53 EST ,
[2023-03-16 14:33] LABS: CREATININE FINGERSTICK 1.2 mg/dL (0.55-1.02)
--- NOTE | 2023-03-16 16:42 | RAD_ITS ---
STUDY: X-RAY CHEST REASON FOR EXAM: Female, 67 years old. cough w/ recent h/o pneumonia TECHNIQUE: Single frontal view of the chest. COMPARISON: March 07, 2023 FINDINGS: Linear opacity left lung unchanged. Moderate left effusion unchanged. Normal size heart. Normal mediastinum and tara. Normal visualized pulmonary arteries. Normal visualized aortic arch and descending thoracic aorta. Normal visualized thoracic spine. Normal visualized ribs, clavicles, and shoulders. There is no demonstrated abnormality of the visualized soft tissue structures of the upper abdomen. RAD/Chest PA and Lateral IMPRESSION: Moderate left effusion and probable pleural reaction unchanged Electronically Signed: Fernando Gallo MD at 17:32 EST ,
== END | disposition home or self-care (01) ==
PROVIDERS: PCP Family Medicine; Referring Provider Internal Medicine Medical Oncology; Visit Provider Internal Medicine Medical Oncology
DX: C7A.090 Malignant carcinoid tumor of the bronchus and lung (principal); J18.9 Pneumonia, unspecified organism
CPT/HCPCS: 71046; 74177; Q9967

== ENCOUNTER 2023-10-03 08:57 | Day surgery (SDC) | payer MEDICARE, MEDICAID, SELFPAY ==
--- NOTE | 2023-09-27 14:52 | NURSING ---
DR ASTUDILLO OFFICE CALLED REGARDING PATIENT TAKING OZEMPIC FRIDAYS. OFFICE TO CALL PATIENT AND INSTRUCT PATIENT ON WHAT TO DO REGARDING STOPPING OZEMPIC. ANAESTHESIA ALSO AWARE.
[2023-10-03] VITALS (9 sets, daily range): BP systolic 123–158; BP diastolic 56–86; PULSE 72–77; RESP 16; TEMP 36.1–36.9; O2SAT 96–99; BMI 54.5
[2023-10-03] MEDS: Lactated Ringers 1,000 ML 15 ML IV (10:17)
[2023-10-03 10:43] LABS: Bedside Glucose 141 mg/dL (74-106)
--- NOTE | 2023-10-03 10:54 | PCM.PRE.AN2 ---
ASA Classification* ASA Classification ASA Classification: 3 Assessment & Plan Anesthesia* Anesthesia Assessment Anesthesia Assessment: Discussed sedation and/or anesthesia options, risks, benefits, and alternatives with patient/parents/legal guardian/POA. Questions invited. The patient/parents/legal guardian/POA seems to understand and agrees to proceed with anesthesia plan. Reviewed the physical assessment, medical history, allergy history and patient home medications list prior to surgery/procedure/anesthetic and documented any changes. Performed airway and anesthesia risk assessments. Anesthesia Type Anesthesia Type: MAC (Patient is reportedly allergic to eggs. However she is able to eat eggs and cake. 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 When Was Last Pacemaker Check QUESTION #4 FULL TEXT: You/Your Family Experience fever (hyperthermia) with Anesthesia Last Oral Intake Last Oral intake: Last Oral Intake NPO since 00:00 10/03/23 10:08 Meds taken in AM with sips of No 10/03/23 10:08 water? Meds patient instructed to take am of surgery PONV PONV - nitric acid concentrator operator: PONV - nitric acid concentrator operator Female Yes 09/27/23 14:32 HX of Motion Sickness No 09/27/23 14:32 HX of N/V After Surgery No 09/27/23 14:32 Non-Smoker Yes 09/27/23 14:32 Duration of Surgery greater No 09/27/23 14:32 than 60 minutes Number of Risk Factors 2 09/27/23 14:32 PONV Score Moderate Risk 09/27/23 14:32 Height & Weight Height & Weight: Anesthesia: Height & Weight Height 5 ft 4 in 10/03/23 10:08 Weight: 144.152 kg 10/03/23 10:08 Body Mass Index (BMI) 54.5 10/03/23 10:08 Respiratory Assessment Respiratory Assessment - nitric acid concentrator operator: Respiratory Tract Infection Hx - nitric acid concentrator operator Hx Respiratory Tract Infection No 09/27/23 14:32 STOP Sleep Apnea STOP Sleep Apnea - nitric acid concentrator operator: STOP Sleep Apnea - nitric acid concentrator operator Hx Hypertension Yes 09/27/23 14:32 Hx Sleep Apnea Yes 09/27/23 14:32 CPAP No 09/27/23 14:32 BIPAP Yes 09/27/23 14:32 Do you snore loudly (louder than talking or can be heard Do you often feel tired/ fatigued/ sleepy during daytime? Has anyone observed you stop breathing during sleep? STOP Results Positive 09/27/23 14:32 QUESTION #5 FULL TEXT : Do you snore loudly (louder than talking or can be heard through closed doors)? 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 Specify any problems Hx of Preganancy in last 3 No 09/27/23 14:32 Months Nurse Filling Out Transfusion [email or web address] 09/27/23 14:32 & Questions: Date: 09/27/23 09/27/23 14:32 Time: 14:37 09/27/23 14:32 Patient unable to answer at this time (ie. confused, unrespo /Reproduction History /Reproductive History - nitric acid concentrator operator: /Reproductive Hx- nitric acid concentrator operator Hx Now Gestational Age (in weeks): EDC: Hx Hx Para Hx Section SAB No 03/03/22 08:24 Active Medications Active Medications: Current Medications Generic Name Dose Route Start Last Admin Trade Name Kayla PRN Reason Stop Dose Admin Lactated Ringer's 1,000 mls @ 15 mls/hr 10/03/23 09:30 10/03/23 10:17 IV 15 mls/hr .Q48H SADE Administration Anesthesia Focused Assessment* Temperature: 98.5 F Pulse Rate: 72 Blood Pressure: 158/56 Respiratory Rate: 16 Pulse Ox: 98 Airway Assessment Mouth opens: >3 cm Mallampati Score: II Focused Labs Anesthesia Preop lab: CBC WBC 7.3 K/mm3 (4.4-11.0) 12/03/22 13:35 RBC 3.94 M/mm3 (4.2-5.4) L 12/03/22 13:35 Hgb 10.5 g/dL (12.0-15.0) L 12/03/22 13:35 Hct 33.1 % (37-47) L 12/03/22 13:35 Plt Count 197 K/mm3 (150-450) 12/03/22 13:35 CHEMISTRY Potassium 4.8 mmol/L (3.5-5.1) 12/03/22 13:35 Sodium 137 mmol/L (136-145) 12/03/22 13:35 Magnesium 2.2 mg/dL (1.6-2.6) 09/16/22 14:23 Phosphorus 2.3 mg/dL (2.5-4.9) L 12/08/16 13:11 BUN 39 mg/dL (7-18) H 12/03/22 13:35 Creatinine 1.15 mg/dL (0.55-1.02) H 12/03/22 13:35 Glucose 153 mg/dL (74-106) H 12/03/22 13:35 TSH 1.29 uIU/mL (0.358-3.74) 10/21/22 15:56 COAG PT 13.9 SECONDS (11.7-14.9) 06/11/20 11:46 Review of Systems (Anesthesia) ROS Narrative System reviewed and no additional complaints, except as documented. [facility] Medical History Pneumonia Cough Anxiety disorder, unspecified Post-menopausal Wears hearing aid Wears glasses Wears dentures Cancer Depression Anxiety Bipolar disorder History of renal disease Insulin dependent diabetes mellitus Diabetes Arthritis High cholesterol Excessive bleeding Back pain Injury of back History of ulceration History of IBS Gastric reflux Former smoker BiPAP (biphasic positive airway pressure) dependence On home oxygen therapy Shortness of breath on exertion Chronic cough History of edema History of echocardiogram History of stress test Cardiology follow-up encounter Left bundle branch block (LBBB) Essential hypertension Carcinoid tumor Breast cancer Bipolar disorder Bowel obstruction Sleep apnea Hyperlipidemia Hernia GERD (gastroesophageal reflux disease) Diabetes mellitus Depression COPD (chronic obstructive pulmonary disease) Home Medications ?Medication ?Instructions ?Recorded ?Last Taken ?Type albuterol sulfate 90 mcg/actuation 6.7 gm IH Q4H PRN PRN Sob &/Or 07/12/13 10/02/23 History aerosol inhaler Wheezing atorvastatin 40 mg tablet 40 mg PO QHS 07/12/13 10/02/23 History doxepin 25 mg capsule 100 mg PO QHS 01/27/16 10/02/23 History omega-3 fatty acids-fish oil 340 2 each PO BID 01/27/16 10/02/23 History mg-1,000 mg capsule oxybutynin chloride 10 mg 10 mg PO DAILY 04/30/20 10/03/23 History tablet,extended release 24 hr calcium carbonate 500 mg-vitamin 1 each PO DAILY 06/12/20 10/02/23 History D3 10 mcg (400 unit) chewable tablet omeprazole 40 mg capsule,delayed 40 mg PO DAILY 06/12/20 10/03/23 History release atenolol 50 mg tablet 50 mg PO DAILY 05/05/21 10/03/23 History multivitamin-iron 9 mg-folic acid 1 tab PO DAILY 10/01/21 10/02/23 History 400 mcg-calcium and minerals tablet (Therems-M) furosemide 20 mg tablet (Lasix) 20 mg PO BID 08/25/22 10/02/23 History allopurinol 100 mg tablet 200 mg PO DAILY 12/01/22 10/02/23 History valsartan 80 0.5 tab PO DAILY 12/01/22 10/02/23 History mg-hydrochlorothiazide 12.5 mg tablet desvenlafaxine succinate 50 mg 50 mg PO DAILY 01/26/23 10/03/23 History tablet,extended release 24 hr magnesium 250 mg tablet 500 mg PO BID 01/26/23 10/02/23 History pregabalin 50 mg capsule 50 mg PO DAILY 02/09/23 10/03/23 History colestipol 1 gram tablet 2 g PO BID 03/01/23 10/02/23 History diclofenac sodium 75 mg 75 mg PO BID 03/01/23 10/02/23 History tablet,delayed release semaglutide 0.25 mg or 0.5 mg (2 2 mg subcut QWEEK 03/01/23 09/23/23 History mg/3 mL) subcutaneous pen injector (Ozempic) insulin degludec 100 unit/mL (3 86 unit subcut DAILY 06/21/23 10/02/23 History mL) subcutaneous pen (Tresiba FlexTouch U-100 insulin) Nebulizer machine #1 ea 07/06/23 Unknown Rx ipratropium 0.5 mg-albuterol 3 mg 3 ml inhalation Q4H PRN PRN SOB 07/06/23 10/02/23 Rx (2.5 mg base)/3 mL nebulization &/OR WHEEZING #180 mL soln insulin lispro 100 unit/mL 35 unit subcut TID 09/16/23 10/02/23 History subcutaneous pen (Humalog KwikPen (U-100) Insulin) Allergy/AdvReac Type Severity Reaction Status Date / Time codeine Allergy Severe MEMORY LOSS Verified 10/03/23 10:05 egg Allergy Severe FLU Verified 10/03/23 10:05 SYMTOPMS, WEEKNESS morphine Allergy Severe CARDIAC Verified 10/03/23 10:05 ARREST venom-honey bee (bee venom Allergy Severe STOP Verified 10/03/23 10:05 (honey bee)) BREATHING vortioxetine (From Allergy Severe LEGS FELT Verified 10/03/23 10:05 Brintellix) ON FIRE calcium carbonate (From Allergy Intermediate PT UNSURE Verified 10/03/23 10:05 Salagen (aspirin)) OF REACTION magnesium (From Salagen Allergy Intermediate PT UNSURE Verified 10/03/23 10:05 (aspirin)) OF REACTION aspirin Allergy Unknown Unknown Verified 10/03/23 10:05 hydrocodone (From Vicodin) Allergy Unknown PATEINT Verified 10/03/23 10:05 DOES NOT REMEMBER hydrocodone bitartrate (From Allergy Unknown PATIENT Verified 10/03/23 10:05 Vicodin) DOES NOT REMEMBER Penicillins Allergy Unknown Hives Verified 10/03/23 10:05 propoxyphene napsylate (From Allergy Unknown PATEINT Verified 10/03/23 10:05 Darvocet-N 100) DOES NOT REMEMBER Influenza Virus Vaccines AdvReac Severe DEHYDRATION Verified 10/03/23 10:05 Family History Mother Breast cancer, Onset Age: 65 Thyroid disorder Glaucoma Diabetes Hypertension Father , Age 49 (Mi age 48) CAD (coronary artery disease) Myocardial infarction, Onset Age: 48 Diabetes Uncle , of Myocardial infarctions CAD (coronary artery disease) Myocardial infarction Grandmother CVA (cerebral vascular accident) Surgical History Hx of surgical procedure Hx of umbilical hernia repair History of pneumonectomy (02/18/21) History of left heart catheterization (01/28/16) LEFT EYE SURGERY History of dental surgery History of lumpectomy of left breast History of hernia repair History of cholecystectomy Social History number of children: 0 current occupational status: disabled Smoking Status: Former smoker alcohol intake: current alcohol intake frequency: holidays/special occasions only what type of physical activity do you participate in: none seatbelt use: always do you feel safe at home: Yes Prior Cardiac Testing/Procedures Prior Cardiac Testing/Procedures: Stress Test (Stress test from February 25, 2023. ejection fraction 58%. No ischemia or infarction noted)
--- NOTE | 2023-10-03 11:08 | RAD_ITS ---
STUDY: LATERAL VIEW OF THE SACRUM REASON FOR EXAM: Female, 67 years old. Caudal epidural injection FLUOROSCOPY TIME (if supplied): ( 3.9 ) minutes/seconds, radiation dose:: 1.51 mgy. One image was submitted. TECHNIQUE: Lateral view of the sacrum and coccyx was obtained for documentation only and not for diagnostic purposes. RAD/Fluor Guidance for Spine Inj IMPRESSION: Intraprocedural lateral view of the sacrum and coccyx was obtained for documentation. Electronically Signed: Ron Thorpe MD at 10:14 EDT ,
[2023-10-03] MEDS: MethylPREDNISolone Acetate 80 MG/ML Vial (11:15)
[2023-10-03] MEDS: 0.9% Normal Saline (Pres. free 10 ML Vial (11:15)
[2023-10-03] MEDS: Lidocaine 1% (5 ml sdv) 5 ML Vial (11:15)
--- NOTE | 2023-10-03 11:24 | PCM.POST.ANE ---
Anesthesia: Postop Eval I Current Vital Signs Temperature: 97 F Pulse Rate: 77 Blood Pressure: 123/70 Respiratory Rate: 16 Pulse Ox: 96 Oxygen Delivery Method: Room Air Assessment Airway patent: Yes Spontaneous unlabored respirations: Yes Mental status: Awake and Calm nausea: No Vomiting: No Anesthesia Complication: No Fluid Hydration Crystalloid volume administer (ml): 200 Total IV fluid infused: 200 Progress Note Anesthesia document: Postop Eval 1 completed: Yes
--- NOTE | 2023-10-03 11:33 | OP.PCM_ITS ---
Report of Operation Date of Procedure: 10/03/23 Pre-Operative Diagnosis: Lumbosacral radiculopathy, lumbosacral degenerative di sc disease, lumbosacral spinal stenosis Post-Operative Diagnosis: Lumbosacral radiculopathy, lumbosacral degenerative disc disease, lumbosacral spinal stenosis Surgery/Procedure Performed:: Diagnostic/therapeutic caudal epidural steroid injection under fluoroscopic guidance Type of Anesthesia: MAC Estimated Blood Loss (mL): Minimal Description of Procedure: DESCRIPTION OF PROCEDURE: History and physical of today was reviewed. Risks and benefits of the procedure were explained. The patient understood and agreed to proceed. Informed consent was obtained. IV inserted per routine protocol. The patient was taken to the operating room and placed in the prone position with a pillow positioned underneath the abdomen. The lower back and tailbone area was prepped and draped in a sterile fashion using iodine x3. Under fluoroscopy guidance on a lateral view, the caudal space was identified. The skin and subcutaneous tissue was anesthetized with approximately 3 mL of 1% lidocaine using a 25-gauge regular needle. Under direct visualization with fluoroscopy, using a 22-gauge 3-1/2-inch spinal needle, the needle was advanced via the skin through the sacral hiatus. The tip of the needle was passed through the sacrococcygeal ligament and advanced to approximately S4 area. After negative aspiration of blood or CSF, a total of 3 mL of contrast was injected to confirm correct placement of the needle as well as cephalad spread. The spread was followed to approximately L5 area. After confirmation on AP as well as lateral view and repeated negative aspiration, a total of 15 mL of preservative-free 0.125% Marcaine with 80 mg of Depo-Medrol was injected easily. The needle was then removed intact. The patient experienced no sign or symptoms of intrathecal or intravascular injection. The patient experienced no paresthesia. The procedure was completed without any apparent difficulty or any complications. The patient appeared to tolerate it well. ASSESSMENT AND PLAN: This is a 67-year-old female with lumbosacral radiculopathy, lumbosacral degenerative disc disease, lumbosacral spinal stenosis status post diagnostic/therapeutic caudal epidural steroid injection, patient will continue her current medications, patient will follow in approximately 2 weeks for reevaluation. Complications None
--- NOTE | 2023-10-03 12:40 | POSTOPAN2_ITS ---
Anesthesia Postop Eval I Sum Postop Eval Completion status Anesthesia document: Postop Eval 1 completed: Yes Anesthesia Postop Eval I Summary Anesthesia Postop Eval I Summary: Anesthesia Postop Eval I: Assessment Summary Airway patent Yes 10/03/23 11:25 CLINICAL NURSE SPECIALIST.[email or web address] Spontaneous unlabored Yes 10/03/23 11:25 CLINICAL NURSE SPECIALIST.[email or web address] respirations Mental status Awake,Calm 10/03/23 11:25 CLINICAL NURSE SPECIALIST.[email or web address] nausea No 10/03/23 11:25 CLINICAL NURSE SPECIALIST.[email or web address] Vomiting No 10/03/23 11:25 CLINICAL NURSE SPECIALIST.JBLOU Anesthesia Postop Eval I: Fluid Summary Crystalloid volume administer 200 10/03/23 11:25 CLINICAL NURSE SPECIALIST.JBLOU (ml) Colloids volume administered ( ml) Blood Product volume administered (ml) Total IV fluid infused 200 10/03/23 11:25 CLINICAL NURSE SPECIALIST.JBLOU Anesthesia Postop Eval I: Summary Notes Anesthesia Complication No 10/03/23 11:25 CLINICAL NURSE SPECIALIST.CHARLIELOSaul Anesthesia Complication Comment: Post-operative progress note Anesthesia: Postop Eval II Evaluation Mental status: Awake Pain Level: 0 nausea: No Vomiting: No Complications Anesthesia Complication: No
--- NOTE | 2023-10-03 12:40 | PCM.POSTANE2 ---
Anesthesia Postop Eval I Sum Postop Eval Completion status Anesthesia document: Postop Eval 1 completed: Yes Anesthesia Postop Eval I Summary Anesthesia Postop Eval I Summary: Anesthesia Postop Eval I: Assessment Summary Airway patent Yes 10/03/23 11:25 CARAMEL COLORING OPERATOR.[email or web address] Spontaneous unlabored Yes 10/03/23 11:25 CARAMEL COLORING OPERATOR.[email or web address] respirations Mental status Awake,Calm 10/03/23 11:25 CARAMEL COLORING OPERATOR.JBLOU nausea No 10/03/23 11:25 CARAMEL COLORING OPERATOR.JBLOU Vomiting No 10/03/23 11:25 CARAMEL COLORING OPERATOR.JBLOU Anesthesia Postop Eval I: Fluid Summary Crystalloid volume administer 200 10/03/23 11:25 CARAMEL COLORING OPERATOR.JBLOU (ml) Colloids volume administered ( ml) Blood Product volume administered (ml) Total IV fluid infused 200 10/03/23 11:25 CARAMEL COLORING OPERATOR.JBLOU Anesthesia Postop Eval I: Summary Notes Anesthesia Complication No 10/03/23 11:25 CARAMEL COLORING OPERATOR.CHARLIELOSaul Anesthesia Complication Comment: Post-operative progress note Anesthesia: Postop Eval II Evaluation Mental status: Awake Pain Level: 0 nausea: No Vomiting: No Complications Anesthesia Complication: No
== END 2023-10-03 12:02 | disposition home or self-care (01) ==
LOC: SDC 09:00 → AC 09:56
PROVIDERS: PCP Family Medicine; Referring Provider Anesthesiology Pain Medicine; Visit Provider Anesthesiology Pain Medicine
PROC: 3E0S3BZ Introduction of Anesthetic Agent into Epidural Space, Percutaneous Approach (ICD-10-PCS; CPT 62282; principal; 2023-10-03 10:05)
DX: M51.17 Intervertebral disc disorders with radiculopathy, lumbosacral region (principal); M48.07 Spinal stenosis, lumbosacral region; Z79.51 Long term (current) use of inhaled steroids; Z79.899 Other long term (current) drug therapy
CPT/HCPCS: 62323; 01992; 64483; 77003; 82962; J7120; J3490

== ENCOUNTER → 2023-11-22 | Outpatient (CLI) | payer MEDICARE, MEDICAID, SELFPAY ==
--- NOTE | 2023-11-22 11:16 | CT_ITS ---
STUDY: CT ABDOMEN AND PELVIS WITH CONTRAST REASON FOR EXAM: Female, 67 years old. Right lower quadrant pain RADIATION DOSAGE (If Supplied By Facility): CTDIvol = ( 17.07 ) mGy, DLP = ( 1406.48 ) mGycm TECHNIQUE: Transaxial images were obtained from the dome of the diaphragm to the symphysis pubis with oral contrast. Oral and amp; IV Gastrografin and amp; 100mL Isovue-300 was administered. Sagittal and coronal images were reconstructed. Individualized dose optimization techniques were used for this CT. COMPARISON: Comparison is made with prior study dated March 16, 2023. FINDINGS: Stable 7 mm noncalcified nodule in the right lower lobe. Stable pleural parenchymal changes at the left lung base. Coronary calcification. Minimal pericardial thickening along the posterior aspect of the pericardium overlying the left ventricle. There is decreased attenuation of the liver consistent with steatosis. Hepatomegaly. The patient is status post cholecystectomy. Normal spleen. Normal pancreas. Normal bilateral adrenal glands. Normal right kidney. Normal left kidney. Normal visualized stomach. Normal small intestine. There are multiple colonic diverticula consistent with diverticulosis. The appendix is visualized and appears normal. There is scattered atherosclerotic calcification of the abdominal aorta, without a demonstrated aneurysm. Normal inferior vena cava. Normal retroperitoneum. Distended urinary bladder. Normal abdominal wall. There are diffuse degenerative changes of the visualized lumbar spine. 50% loss of height of the superior endplate of the L1 vertebra. This is unchanged. CT/Abdomen/Pelvis WITH Contrast IMPRESSION: Hepatomegaly and fatty infiltration of the liver. Status post cholecystectomy. Stable 7 mm noncalcified nodule in the right lower lobe. Electronically Signed: Tima Aguilar MD at 11:06 EDT ,
== END | disposition home or self-care (01) ==
LOC: CT 11:09
PROVIDERS: PCP Family Medicine; Referring Provider Family Medicine; Visit Provider Family Medicine
DX: R10.31 Right lower quadrant pain (principal)
CPT/HCPCS: 74177; 82274; Q9967

== ENCOUNTER 2023-12-10 10:08 | Emergency (ER) | payer MEDICARE, MEDICAID, SELFPAY ==
[2023-12-10 10:09] VITALS: BP 142/88; PULSE 83; RESP 18; TEMP 35.6; O2SAT 94; BMI 45.7
--- NOTE | 2023-12-10 10:21 | EX.ED.DYSGE1 ---
HPI History of Present Illness Chief Complaint: Flank Pain Informant: patient Onset/Context/Timing Onset: Month(s) (1) Context: Gradual Onset Timing: Continuous Quality: Stabbing, cramping Location: Right flank and right lower abdomen Worsened by: Laying on right side and standing completely upright Relieved by: Nothing Narrative Narrative: Patient presents with right flank and right lower abdominal pain that has been constant for the past month. Patient describes it as stabbing and cramping. Patient states that it is worse when she lays on her right side and when she stands completely upright. Patient states nothing makes it better. Patient denies any nausea or vomiting. Patient denies any dysuria or hematuria. Patient denies any fevers or chills. Patient states she has been taking acetaminophen with no relief. PFSH [facility] Medical History Pneumonia Cough Anxiety disorder, unspecified Post-menopausal Wears hearing aid Wears glasses Wears dentures Cancer Depression Anxiety Bipolar disorder History of renal disease Insulin dependent diabetes mellitus Diabetes Arthritis High cholesterol Excessive bleeding Back pain Injury of back History of ulceration History of IBS Gastric reflux Former smoker BiPAP (biphasic positive airway pressure) dependence On home oxygen therapy Shortness of breath on exertion Chronic cough History of edema History of echocardiogram History of stress test Cardiology follow-up encounter Left bundle branch block (LBBB) Essential hypertension Carcinoid tumor Breast cancer Bipolar disorder Bowel obstruction Sleep apnea Hyperlipidemia Hernia GERD (gastroesophageal reflux disease) Diabetes mellitus Depression COPD (chronic obstructive pulmonary disease) Home Medications ?Medication ?Instructions ?Recorded ?Last Taken ?Type albuterol sulfate 90 mcg/actuation 6.7 gm IH Q4H PRN PRN Sob &/Or 07/12/13 10/02/23 History aerosol inhaler Wheezing doxepin 25 mg capsule 100 mg PO QHS 01/27/16 10/02/23 History omega-3 fatty acids-fish oil 340 2 each PO BID 01/27/16 10/02/23 History mg-1,000 mg capsule oxybutynin chloride 10 mg 10 mg PO DAILY 04/30/20 10/03/23 History tablet,extended release 24 hr calcium carbonate 500 mg-vitamin 1 each PO DAILY 06/12/20 10/02/23 History D3 10 mcg (400 unit) chewable tablet omeprazole 40 mg capsule,delayed 40 mg PO DAILY 06/12/20 10/03/23 History release atenolol 50 mg tablet 50 mg PO DAILY 05/05/21 10/03/23 History multivitamin-iron 9 mg-folic acid 1 tab PO DAILY 10/01/21 10/02/23 History 400 mcg-calcium and minerals tablet (Therems-M) furosemide 20 mg tablet (Lasix) 20 mg PO BID 08/25/22 10/02/23 History allopurinol 100 mg tablet 200 mg PO DAILY 12/01/22 10/02/23 History valsartan 80 0.5 tab PO DAILY 12/01/22 10/02/23 History mg-hydrochlorothiazide 12.5 mg tablet desvenlafaxine succinate 50 mg 50 mg PO DAILY 01/26/23 10/03/23 History tablet,extended release 24 hr pregabalin 50 mg capsule 50 mg PO DAILY 02/09/23 10/03/23 History colestipol 1 gram tablet 2 g PO BID 03/01/23 10/02/23 History semaglutide 0.25 mg or 0.5 mg (2 2 mg subcut QWEEK 03/01/23 09/23/23 History mg/3 mL) subcutaneous pen injector (Ozempic) insulin degludec 100 unit/mL (3 86 unit subcut DAILY 06/21/23 10/02/23 History mL) subcutaneous pen (Tresiba FlexTouch U-100 insulin) Nebulizer machine #1 ea 07/06/23 Unknown Rx ipratropium 0.5 mg-albuterol 3 mg 3 ml inhalation Q4H PRN PRN SOB 07/06/23 10/02/23 Rx (2.5 mg base)/3 mL nebulization &/OR WHEEZING #180 mL soln insulin lispro 100 unit/mL 35 unit subcut TID 09/16/23 10/02/23 History subcutaneous pen (Humalog KwikPen (U-100) Insulin) atorvastatin 40 mg tablet 80 mg PO QHS 11/22/23 Unknown History ciprofloxacin HCl 500 mg tablet 500 mg PO BID #6 TABLETS 12/10/23 Unknown Rx Allergy/AdvReac Type Severity Reaction Status Date / Time codeine Allergy Severe MEMORY LOSS Verified 12/10/23 10:09 egg Allergy Severe FLU Verified 12/10/23 10:09 SYMTOPMS, WEEKNESS morphine Allergy Severe CARDIAC Verified 12/10/23 10:09 ARREST venom-honey bee (bee venom Allergy Severe STOP Verified 12/10/23 10:09 (honey bee)) BREATHING vortioxetine (From Allergy Severe LEGS FELT Verified 12/10/23 10:09 Brintellix) ON FIRE calcium carbonate (From Allergy Intermediate PT UNSURE Verified 12/10/23 10:09 [place] (aspirin)) OF REACTION magnesium (From [place] Allergy Intermediate PT UNSURE Verified 12/10/23 10:09 (aspirin)) OF REACTION aspirin Allergy Unknown Unknown Verified 12/10/23 10:09 hydrocodone (From Vicodin) Allergy Unknown PATEINT Verified 12/10/23 10:09 DOES NOT REMEMBER hydrocodone bitartrate (From Allergy Unknown PATIENT Verified 12/10/23 10:09 Vicodin) DOES NOT REMEMBER Penicillins Allergy Unknown Hives Verified 12/10/23 10:09 propoxyphene napsylate (From Allergy Unknown PATEINT Verified 12/10/23 10:09 Darvocet-N 100) DOES NOT REMEMBER Influenza Virus Vaccines AdvReac Severe DEHYDRATION Verified 12/10/23 10:09 Family History Mother Breast cancer, Onset Age: 65 Thyroid disorder Glaucoma Diabetes Hypertension Father , Age 49 (Mi age 48) CAD (coronary artery disease) Myocardial infarction, Onset Age: 48 Diabetes Uncle , of Myocardial infarctions CAD (coronary artery disease) Myocardial infarction Grandmother CVA (cerebral vascular accident) Surgical History Hx of surgical procedure Hx of umbilical hernia repair History of pneumonectomy (02/18/21) History of left heart catheterization (01/28/16) LEFT EYE SURGERY History of dental surgery History of lumpectomy of left breast History of hernia repair History of cholecystectomy Social History number of children: 0 current occupational status: disabled Smoking Status: Former smoker alcohol intake: current alcohol intake frequency: holidays/special occasions only what type of physical activity do you participate in: none seatbelt use: always do you feel safe at home: Yes ROS ROS ED Constitutional Constitutional ED: Denies chills or fever(s) Eyes Eyes: Denies blurry vision or change in vision ENT ENT ED: Denies rhinorrhea or sore throat Cardiovascular Cardiovascular: Denies chest pain or palpitations Respiratory/Chest Respiratory/Chest: Denies cough or dyspnea Gastrointestinal Gastrointestinal: Denies nausea or vomiting Genitourinary Genitourinary ED: Denies dysuria or hematuria Musculoskeletal Musculoskeletal: Reports back pain; Denies neck pain Integumentary Denies abscess or rash Neurologic Neurologic: Denies headache(s) or weakness Allergic/Immunologic Allergic/Immunologic ED: Denies mouth swelling or urticaria EXAM Physical Exam Const Vital Signs: 12/10/23 10:09 12/10/23 11:47 12/10/23 13:04 Temperature 96.0 F L 98.2 F 96 F L Temperature Source Temporal Oral Pulse Rate 83 83 79 Respiratory Rate 18 18 18 Blood Pressure 142/88 H 158/76 H 149/70 H Blood Pressure Mean 106 103 96 Pulse Ox 94 94 99 Oxygen Delivery Method Room Air Room Air Positive well nourished, well developed and obese General Appearance ED: well developed and NAD Nutritional Appearance: obese HEENT Reports moist mucous membranes Neck supple and no JVD Resp normal respiratory effort and clear to auscultation bilaterally Cardio regular rate and regular rhythm GI non-distended Palpation: soft and tender RLQ; Negative for guarding or rebound tenderness present Extremity General Extremety ED: Negative for edema or tenderness General Extremity: Negative for edema Neuro oriented x3, CN's II-XII intact bilaterally and no sensory deficits noted Sensorium / Orientation: alert Motor Exam: strength 5/5 throughout Psych mental status grossly normal MDM MDM MDM Narrative Medical decision making narrative: Differential diagnosis includes ureteral calculus, pyelonephritis, urinary tract infection, colitis, appendicitis, gastroenteritis, peptic ulcer disease, duodenal ulcer, and musculoskeletal pain. CBC will be obtained to assess for leukocytosis and anemia. Comprehensive metabolic profile will be obtained to assess for hepatic function, renal function, and electrolyte abnormality. Urinalysis will be obtained to assess for urinary tract infection and hematuria. CT scan of the abdomen pelvis will be obtained to assess for appendicitis, ureteral calculus, and pyelonephritis. Lab Data Attestation: I reviewed the patient's lab results. Lab results narrative: CBC was reviewed. Platelets were slightly low at 132. The remainder was within normal limits. Comprehensive metabolic profile was reviewed. BUN was slightly elevated at 21 and creatinine was slightly elevated 1.03. These are improved from previous results. Glucose was slightly elevated at 141. The remainder is within normal limits. Urinalysis was reviewed. Leukocyte esterase was 100 with 10-25 white blood cells and 1+ bacteria. Labs: Laboratory Results - last 24 hr 12/10/23 12/10/23 10:40 11:00 WBC 5.9 RBC 4.02 L Hgb 12.5 Hct 37.1 MCV 92.3 MCH 31.1 MCHC 33.7 RDW Std Deviation 48.0 H RDW Coeff of Jose Miguel 14.4 Plt Count 132 L MPV 10.0 Immature Gran % (Auto) 0.200 Neut % (Auto) 50.0 Lymph % (Auto) 36.8 [place] % (Auto) 7.1 Eos % (Auto) 5.6 H Baso % (Auto) 0.3 Absolute Neuts (auto) 2.9 Absolute Lymphs (auto) 2.17 Nucleated RBC % 0 Sodium 138 Potassium 4.1 Chloride 105 Carbon Dioxide 27.0 Anion Gap 6 BUN 21 H Creatinine 1.03 H Estim Creat Clear Calc 80.22 Est GFR (MDRD) Af Amer 69 Est GFR (MDRD) Non-Af 57 L BUN/Creatinine Ratio 20.4 H Glucose 141 H Calcium 10.1 Total Bilirubin 0.60 AST 44 H ALT 38 Alkaline Phosphatase 79 Total Protein 7.3 Albumin 3.0 L Globulin 4.3 H Albumin/Globulin Ratio 0.7 L Urine Color Yellow Urine Clarity Clear Urine pH 6.5 Ur Specific [place] 1.010 Urine Protein 15 H Urine Glucose (UA) Normal Urine Ketones Negative Urine Occult Blood Negative Urine Nitrite Negative Urine Bilirubin Negative Urine Urobilinogen Normal Ur Leukocyte Esterase 100 H Urine RBC 0 SEEN Urine WBC 10-25 SEEN Ur Squamous Epith Cells 0-5 SEEN Urine Bacteria 1+ Urine Mucus 0 SEEN Radiography Diagnostic Testing: Clinical Impression(s) from Imaging Studies Abdomen/Pelvis CT 12/10/23 10:26 IMPRESSION: 1. No focal acute inflammatory process. 2. Stable 7 mm right lower lobe nodule for which further follow-up exam in 6 months is recommended. Electronically Signed: Ron Thorpe MD at 12:14 EDT , CT scan of the abdomen pelvis was obtained. There is no acute inflammatory process noted. There is no evidence of appendicitis. There is no bowel obstruction or perforation. This was interpreted by the radiologist and was also independently reviewed by myself. Treatment and Re-Evaluation :: Patient was given IV fluids. Patient was given a dose of Cipro here. Patient was given a dose of Toradol. Patient was advised of her findings. Patient was given a prescription for Cipro. Patient was instructed to follow-up with her primary care physician in 5 to 7 days. Patient was instructed return if worse in any way. Patient understood and was agreeable with the plan. All questions were answered. Discharge Plan Triage Chief Complaint: Flank Pain ED Provider: Jake Montalvo Dx/Rx/DC Orders Clinical Impression: Cystitis, Right flank pain, COPD (chronic obstructive pulmonary disease), Morbid (severe) obesity due to excess calories Instructions: ED Cystitis Female Adult Prescriptions: New ciprofloxacin HCl 500 mg tablet 500 mg PO BID Qty: 6 0RF No Action oxybutynin chloride 10 mg tablet extended release 24hr 10 mg PO DAILY atenolol 50 mg tablet 50 mg PO DAILY furosemide [Lasix] 20 mg tablet 20 mg PO BID colestipol 1 gram tablet 2 g PO BID pregabalin 50 mg capsule 50 mg PO DAILY allopurinol 100 mg tablet 200 mg PO DAILY desvenlafaxine succinate 50 mg tablet extended release 24 hr 50 mg PO DAILY insulin lispro [Humalog KwikPen Insulin] 100 unit/mL insulin pen 35 unit subcut TID insulin degludec [Tresiba FlexTouch U-100] 100 unit/mL (3 mL) insulin pen 86 unit subcut DAILY albuterol sulfate 6.7 GM HFA aerosol inhaler 6.7 gm IH Q4H PRN PRN (Reason: Sob &/Or Wheezing) Patient Comments: breathing atorvastatin 40 mg tablet 80 mg PO QHS Patient Comments: high cholesterol doxepin 25 MG capsule 100 mg PO QHS omega-3 fatty acids-fish oil 1 EACH capsule 2 each PO BID omeprazole 40 MG capsule,delayed release(DR/EC) 40 mg PO DAILY calcium carbonate-vitamin D3 1 EACH tablet,chewable 1 each PO DAILY Therems-M 9 mg iron-400 mcg tablet 1 tab PO DAILY valsartan-hydrochlorothiazide 80-12.5 mg tablet 0.5 tab PO DAILY Ozempic 0.25 mg or 0.5 mg (2 mg/3 mL) pen injector 2 mg subcut QWEEK Rx Instructions: for 4 weeks ipratropium-albuterol 0.5 mg-3 mg(2.5 mg base)/3 mL solution for nebulization 3 ml inhalation Q4H PRN PRN (Reason: SOB &/OR WHEEZING) Qty: 180 6RF (DME) Nebulizer machine See Rx Instructions .ROUTE .MEDSUPPLY Qty: 1 0RF Rx Instructions: As directed Primary Care Provider: Agnes Hernandez Referrals: Agnes Hernandez DO [Primary Care Provider] - 5-7 Days Print Language: Romanian Disposition Disposition: Home, Self Care Discharge Date/Time: 12/10/23 13:04
--- NOTE | 2023-12-10 10:26 | CT_ITS ---
STUDY: CT ABDOMEN AND PELVIS WITH CONTRAST REASON FOR EXAM: Female, 67 years old. Abdominal pain RADIATION DOSAGE (If Supplied By Facility): CTDIvol = ( 34.99 ) mGy, DLP = ( 1948.11 ) mGycm TECHNIQUE: IV 100mL Isovue-370 was administered. Transaxial images were obtained from the dome of the diaphragm to the symphysis pubis. Multiplanar coronal and sagittal images were reformatted. The protocol utilizes one or more of the following dose reduction techniques: automated exposure control, adjustment of mA and/or kV according to patient size,and/or use of iterative reconstruction technique. COMPARISON: Prior study dated: 11/22/2023 FINDINGS: Stable 7 mm right lower lobe nodule for which further follow-up exam is recommended. Normal heart size. Mild pericardial thickening is again seen. Coronary calcifications. No evidence of pericardial effusion. Mild hepatic steatosis. Absent gallbladder consistent with previous cholecystectomy. Normal spleen. There is diffuse atrophy of the pancreas. Normal bilateral adrenal glands. There is a small hiatal hernia. Normal small intestine. Fecal retention. Diverticulosis without evidence of acute diverticulitis. The appendix is visualized and appears normal. Atherosclerotic calcifications of the abdominal aorta without evidence of aneurysm. No retroperitoneal adenopathy. Normal right kidney. Normal left kidney. Normal urinary bladder. Normal abdominal wall. Unchanged osseous structures. CT/Abdomen/Pelvis W IV Cont ONLY IMPRESSION: 1. No focal acute inflammatory process. 2. Stable 7 mm right lower lobe nodule for which further follow-up exam in 6 months is recommended. Electronically Signed: Ron Thorpe MD at 12:14 EDT ,
[2023-12-10] MEDS: 0.9% Normal Saline (1000mL) 1,000 ML 1000 ML IV (10:40)
[2023-12-10 10:48] LABS: Absolute Lymphocyte Count 2.17 X10^3/uL (0.83-4.51); Absolute Neutrophil Count 2.9 X10^3/uL (2.0-7.7); Basophil# 0.02 X10^3/uL; Basophil% 0.3 % (0-1); Eosinophil# 0.33 X10^3/uL; Eosinophils% 5.6 % (0-5); Hematocrit 37.1 % (37-47); Hemoglobin 12.5 g/dL (12.0-15.0); Lymphocyte # 2.17 X10^3/ul (0.83-4.51); Lymphocyte % 36.8 % (19-41); Mean Corp Hgb Conc 33.7 g/dL (32-36); Mean Corpuscular Hgb 31.1 pg (27.0-32.0); Mean Corpuscular Volume 92.3 fL (81-99); Monocyte# 0.42 X10^3/uL; Monocyte% 7.1 % (0-10); NRBC Flagged by Analyzer 0 % (0-5); Neutrophil # 2.94 X10^3/uL (2.7-7.7); Platelet Count 132 K/mm3 (150-450); RBC Distribution Width CV 14.4 % (11.6-14.6); Red Blood Count 4.02 M/mm3 (4.2-5.4); White Blood Count 5.9 K/mm3 (4.4-11.0)
[2023-12-10 11:07] LABS: Mucous, Urine 0 SEEN /hpf (<or=2+); Red Blood Cells-Urine 0 SEEN /hpf (0-5)
[2023-12-10 11:10] LABS: Color, Urine Yellow (Yellow); Glucose, Dipstick Normal (Normal); Ketone-Dipstick Negative (Negative); Leukocyte Esterase-Dipstick 100 /ul (Negative); Nitrite-Dipstick Negative (Negative); Occult Blood-Urine Negative /ul (Negative); Protein-Dipstick 15 mg/dl (Negative); Urine Bilirubin Dipstick Negative (Negative); Urine Clarity Clear (Clear); Urine Urobilinogen Normal (Normal); Urine pH 6.5 (5.0 - 8.0)
[2023-12-10 11:11] LABS: ALB/GLOB Ratio 0.7 RATIO (0.9-2.4); AST(SGOT) 44 U/L (15-37); Alanine Aminotransfer ALT/SGPT 38 U/L (13-56); Alkaline Phosphatase 79 U/L (45-117); Anion Gap 6 (5-15); BUN 21 mg/dL (7-18); BUN/Creat Ratio 20.4 RATIO (10-20); Calcium,Total 10.1 mg/dL (8.5-10.1); Chloride 105 mmol/L (98-107); Creatinine, Serum 1.03 mg/dL (0.55-1.02); EST Glomerular Filtration Rate 57 mL/min (>60); Est Glom Filt Rate - Afr Amer 69 mL/min (>60); Estimated Creatinine Clearance 80.22 ml/min; Globulin 4.3 g/dL (2.2-4.2); Glucose 141 mg/dL (74-106); Potassium 4.1 mmol/L (3.5-5.1); Protein, Total 7.3 g/dL (6.4-8.2); Sodium Level 138 mmol/L (136-145)
[2023-12-10 11:22] LABS: White Blood Cells 10-25 SEEN /hpf (0-5)
[2023-12-10 11:23] LABS: Bacteria 1+ /hpf (None Seen); Squamous Epithelial Cells - UA 0-5 SEEN /hpf (5-10)
[2023-12-10 11:47] VITALS: BP 158/76; PULSE 83; RESP 18; TEMP 36.8; O2SAT 94
[2023-12-10] MEDS: Ciprofloxacin 500 MG Tablet PO (12:29)
[2023-12-10] MEDS: Ketorolac 15 MG/ML Vial IV (12:30)
[2023-12-10 13:04] VITALS: BP 149/70; PULSE 79; RESP 18; TEMP 35.5; O2SAT 99
== END 2023-12-10 13:04 | disposition home or self-care (01) ==
PROVIDERS: Emergency Provider Emergency Medicine; PCP Family Medicine; Visit Provider Emergency Medicine
DX: N30.90 Cystitis, unspecified without hematuria (principal); F31.9 Bipolar disorder, unspecified; J44.9 Chronic obstructive pulmonary disease, unspecified; E66.01 Morbid (severe) obesity due to excess calories; E11.9 Type 2 diabetes mellitus without complications; Z79.4 Long term (current) use of insulin; E78.00 Pure hypercholesterolemia, unspecified; I10 Essential (primary) hypertension; K21.9 Gastro-esophageal reflux disease without esophagitis; Z79.85 Long-term (current) use of injectable non-insulin antidiabetic drugs; Z79.899 Other long term (current) drug therapy; Z87.891 Personal history of nicotine dependence
CPT/HCPCS: 74177; 80053; 81001; 85025; 87086; 87088; 96361; 96374; 99283; J7030; Q9967; A4216

== ENCOUNTER → 2024-08-24 | Outpatient (CLI) | payer MEDICARE, MEDICAID, SELFPAY | END | disposition home or self-care (01) | PROVIDERS: PCP Student in an Organized Health Care Education/Training Program; Referring Provider Nurse Practitioner Acute Care; Visit Provider Nurse Practitioner Acute Care | DX: J43.2 Centrilobular emphysema (principal) | CPT/HCPCS: 94060; 94726; 94729 ==

== ENCOUNTER → 2024-09-20 | Outpatient (CLI) | payer MEDICARE, MEDICAID, SELFPAY ==
[2024-09-20 14:16] VITALS: PULSE 102; PULSE 106; PULSE 107; PULSE 109; PULSE 110; PULSE 111; PULSE 112; O2SAT 95; O2SAT 96; O2SAT 97; O2SAT 98
--- NOTE | 2024-09-20 14:19 | CPS ---
PATIENT ARRIVED FOR WALK TEST IN WHEELCHAIR. SHE SAID SHE HAS CHRONIC BACK PAIN AND LEG WEAKNESS. SHE PUSHED W/C DURING TESTING FOR STABILITY. SHE STOPPED TO REST FOR 3 MINUTES DURING TESTING DUE TO INCREASED WOB AND BACK PAIN. SHE SAID SHE IS MOSTLY FLAT AT HOME AND WALKS LITTLE POSSIBLE D/T BACK PAIN. TESTING DONE ON ROOM AIR. SHE AMBULATED 236FT.
--- NOTE | 2024-09-21 13:02 | PCM.PSN.6M ---
PSN 6 Minute Walk Test 6 Minute Walk Test 6 Minute Walk Test: 6 Minute Walk Test PSN:6-Minute Walk Test Start: 09/20/24 14:16 Freq: Status: Active Protocol: [id number].6MINW Document 09/20/24 14:16 [facility] (Rec: 09/20/24 14:21 [facility] [id number]) 6 Minute Walk Test Date Performed 09/20/24 Time Performed 13:45 Height 5 ft 9 in Weight: 274 lb Weight in Pounds 274.[address]: Amelie Ruby [employer] Assistive device Walker used: Pre-test Oxygen Delivery Room Air Method Pulse Ox (%) 95 Pulse Rate (60-100 102 H beats/min) Dyspnea Ashley Scale ( 0 0-10) Exertion Ashley Scale 7 (6-20) 1st minute Oxygen Delivery Room Air Method Pulse Ox (%) 96 Pulse Rate (60-100 111 H beats/min) Dyspnea Ashley Scale ( 2 0-10) Exertion Ashley Scale 9 (6-20) Number of Rests 0 Taken Reported Symptoms Increased Work of Breathing 2nd minute Oxygen Delivery Room Air Method Pulse Ox (%) 97 Pulse Rate (60-100 112 H beats/min) Dyspnea Ashley Scale ( 4 0-10) Exertion Ashley Scale 11 (6-20) Number of Rests 1 Taken Reported Symptoms Increased Work of Breathing 3rd minute Oxygen Delivery Room Air Method Pulse Ox (%) 98 Pulse Rate (60-100 110 H beats/min) Dyspnea Ashley Scale ( 3 0-10) Exertion Ashley Scale 9 (6-20) Number of Rests 1 Taken Reported Symptoms Increased Work of Breathing 4th minute Oxygen Delivery Room Air Method Pulse Ox (%) 97 Pulse Rate (60-100 107 H beats/min) Dyspnea Ashley Scale ( 2 0-10) Exertion Ashley Scale 9 (6-20) Number of Rests 1 Taken Reported Symptoms Increased Work of Breathing 5th minute Oxygen Delivery Room Air Method Pulse Ox (%) 96 Pulse Rate (60-100 112 H beats/min) Dyspnea Ashley Scale ( 3 0-10) Number of Rests 0 Taken Reported Symptoms Increased Work of Breathing 6th minute Oxygen Delivery Room Air Method Pulse Ox (%) 96 Pulse Rate (60-100 109 H beats/min) Dyspnea Ashley Scale ( 4 0-10) Exertion Ashley Scale 12 (6-20) Number of Rests 0 Taken Reported Symptoms Increased Work of Breathing Post-test Oxygen Delivery Room Air Method Pulse Ox (%) 96 Pulse Rate (60-100 106 H beats/min) Dyspnea Ashley Scale ( 0 0-10) Exertion Ashley Scale 8 (6-20) Full Laps Walked 4 Partial Lap, Number 0 of Tiles Walked Total Distance 236 Walked (ft) 09/20/24 14:19 Cardiopulmonary Services by Tania Bella PATIENT ARRIVED FOR WALK TEST IN WHEELCHAIR. SHE SAID SHE HAS CHRONIC BACK PAIN AND LEG WEAKNESS. SHE PUSHED W/C DURING TESTING FOR STABILITY. SHE STOPPED TO REST FOR 3 MINUTES DURING TESTING DUE TO INCREASED WOB AND BACK PAIN. SHE SAID SHE IS MOSTLY FLAT AT HOME AND WALKS LITTLE POSSIBLE D/T BACK PAIN. TESTING DONE ON ROOM AIR. SHE AMBULATED 236FT. Initialized on 09/20/24 14:19 - END OF NOTE Interpretation Interpretation: The patient ambulated 236 feet over the course of 6 minutes beginning on room air with the use of a walker. Pretesting oxygen saturation was noted to be 95% on room air. With ambulation, the loretta oxygen saturation was 96%. Although there was evidence of impaired walk distance, there was no significant exertional oxygen desaturation. Recommendations Recommendations: There is no indication for the use of supplemental oxygen at this time.
== END | disposition home or self-care (01) ==
LOC: PSN 13:48
PROVIDERS: PCP Student in an Organized Health Care Education/Training Program; Referring Provider Nurse Practitioner Acute Care; Visit Provider Nurse Practitioner Acute Care
DX: J43.2 Centrilobular emphysema (principal)
CPT/HCPCS: 94618

== ENCOUNTER → 2024-09-27 | Outpatient (CLI) | payer MEDICARE, MEDICAID, SELFPAY ==
--- NOTE | 2024-09-27 14:08 | CT_ITS ---
EXAM: CT Chest, Lung Cancer Screening Without Intravenous Contrast CLINICAL INDICATION: SMOKING TECHNIQUE: Axial computed tomography images of the chest without intravenous contrast using low dose (LDCT) lung cancer screening protocol. This CT exam was performed using one or more of the following dose reduction techniques: automated exposure control, adjustment of the mA and/or kV according to patient size, and/or use of iterative reconstruction technique. COMPARISON: CT Lung Cancer Screening dated 12/03/2022 FINDINGS: LUNGS AND PLEURAL SPACES: Stable 4 mm nodule of the medial right upper lobe. Stable 6 mm nodule of the right lower lobe. Stable 2 mm nodule of the left upper lobe. Stable 3 mm nodule of the posterior left lower lobe. Stable 4 mm nodule of the medial left lower lobe. No consolidation. No significant effusion. No pneumothorax. No new suspicious pulmonary nodules. HEART: Unremarkable. No cardiomegaly. No significant pericardial effusion. No significant coronary artery calcifications. BONES/JOINTS: Unremarkable. No acute fracture. SOFT TISSUES: Unremarkable. VASCULATURE: Unremarkable. No thoracic aortic aneurysm. LYMPH NODES: Unremarkable. No enlarged lymph nodes. CT/Low Dose CT Lung Screening IMPRESSION: 1. No new suspicious pulmonary nodules. 2. LUNG-RADS 2: Benign. Continue low-dose CT screening of the chest in 12 mon ths is recommended. Reading Location: [facility]
--- OUTSIDE RECORDS SUMMARY | 2024-09-27 21:08 | XMS RPT_ITS | CCD ---
Author Organization [facility] Care Team Providers Care Visual Merchandising Manager Name Role Phone KENTRELL DEAN MD Primary Care Physician [phone] [place] Agnes CRANE Unavailable Unavailable CHELSEA TOSCANO, DR AGNES Cantrell Primary Care Physician DR AGNES HERNANDEZ DO Primary Care Physician Dr. Agnes Hernandez Primary Care Provider [phone] Dr. Agnes Hernandez Referring Provider Dr. Kentrell Dean Attending Provider [facility], [facility] Attending Unavailable CHELSEA TOSCANO, DR AGNES Cantrell Primary Care Unavailable JENNI MARCUS MD Attending Unavaila ble MALJESSE TOSCANO, DR AGNES Cantrell Primary Care Unavailable JENNI MARCUS MD Attending Unavaila shawna HERNANDEZ DO, DR AGNES Cantrell Primary Care Unavailable JENNI MARCUS MD Attending Unavaila ble MALYS , DR AGNES Cantrell Primary Care Unavailable KENTRELL DEAN MD Attending Unavailable MALYS , DR AGNES Cantrell Primary Care [facility] DO Attending Unavailable MALYS , DR AGNES Cantrell Primary Care Unavailable Alissa Roman Unavailable Unavailable MALYS DO, DR AGNES Cantrell Primary Care Unavailable [facility], [facility] Attending Unavailable CHELSEA TOSCANO, DR AGNES Cantrell Primary Care Unavailable RHONDA WILLINGHAM MD, DR CESAR VILLAVICENCIO Attending Unavaila ble MALYS , DR AGNES Cantrell Primary Care Unavailable RHONDA WILLINGHAM MD, DR CESAR VILLAVICENCIO Attending Unavaila ble MALYS , DR AGNES Cantrell Primary Care Unavailable JENNI MARCUS MD Attending Unavaila ble MALYS DO, DR AGNES Cantrell Primary Care Unavailable RHONDA WILLINGHAM MD, DR CESAR VILLAVICENCIO Attending Unavaila ble MALYS DO, DR AGNES Cantrell Primary Care Unavailable RHONDA WILLINGHAM MD, DR CESAR VILLAVICENCIO Attending Unavaila ble MALYS DO, DR AGNES Cantrell Primary Care Unavailable RHONDA WILLINGHAM MD, DR CESAR VILLAVICENCIO Attending Unavaila ble MALYS DO, DR AGNES Cantrell Primary Care Unavailable RHONDA WILLINGHAM MD, DR CESAR VILLAVICENCIO Attending Unavaila ble MALYS DO, DR AGNES Cantrell Primary Care Unavailable RHONDA WILLINGHAM MD, DR CESAR VILLAVICENCIO Attending Unavaila ble MALYS DO, DR AGNES Cantrell Primary Care Unavailable NOHEMI CORDOBA, JENNI Attending Unavaila shawna BARRERA MD, AMALIA Lino Attending Unavailable MALYS DO, DR AGNES Cantrell Primary Care Unavailable MALYS DO, DR AGNES Cantrell Primary Care Unavailable NOHEMI CORDOBA, JENNI Attending Unavaila shawna ELLER MD, DR SADIQ Islas Attending Unav ailable MALYS DO, DR AGNES Cantrell Primary Care Unavailable FROMMELT DO, LAURA Attending Unavailable MALYS DO, DR AGNES Cantrell Primary Care Unavailable DOE CORDOBA, DR JASON Santiago Consulting Unavai lable MALYS DO, DR AGNES Cantrell Primary Care Unavailable OWOC DO, DR JULIO Morris Attending Unavailabl e MALYS DO, DR AGNES Cantrell Primary Care Unavailable LOGAN CORDOBA, DR DURBIN Attending Unavailab le MALYS DO, DR AGNES Cantrell Primary Care Unavailable DAPHNIE CORDOBA, DR SADIQ Islas Attending Unav ailable DITCHEY DO, AGNES M Primary Care Physician [phone] AMALIA BARRERA MD Attending Unavailable MALYS DO, DR AGNES Cantrell Primary Care Unavailable DITCHEY DO, AGNES Barros Primary Care Unavailable AMALIA BARRERA MD Attending Unavailable DITCHEY DO, AGNES Barros Primary Care Unavailable AMALIA BARRERA MD Attending Unavailable DITCHEY DO, AGNES Barros Primary Care Unavailable AMALIA BARRERA MD Attending Unavailable JASON AZAR Admitting Unavailable DITCHEY DO, AGNES Barros Primary Care Unavailable HEMANTH CORDOBA, MARCIN Mcintosh Attending Unavailable EMELYN CORDOBA, KERON Consulting Delvin NGUYỄN MD, MARÍA Consulting Unavailable RHONDA WILLINGHAM MD, DR CESAR VILLAVICENCIO Consulting Unavaila DEVON Gautam MD Consulting Unavailable MALYS DO, DR AGNES Cantrell Attending Unavailable MALYS DO, DR AGNES Cantrell Primary Care Unavailable Malys, Agnes Primary Care Unavailable BobBasim Referring Unavailable BobBasim Attending Unavailable Ditchey, Agnes M Primary Care Unavailable Ruby AIR BRAKE MAN, Amelie Attending Unavailable Ruby AIR BRAKE MAN, Amelie Referring Unavailable Malys, Agnes Primary Care Unavailable Prah, Kentrell Attending Unavailable Prah, Kentrell Referring Unavailable Malys, Agnes Primary Care Unavailable Malys, Agnes Referring Unavailable Ruby AIR BRAKE MAN, Amelie Attending Unavailable Malys, Agnes Referring Unavailable Prah, Kentrell Attending Unavailable Malys, Agnes Primary Care Unavailable Malys, Agnes Primary Care Unavailable Malys, Agnes Referring Unavailable Clover Kc Attending Unavailable Malys, Agnes Primary Care Unavailable Malys, Agnes Referring Unavailable Ruby AIR BRAKE MAN, Amelie Attending Unavailable Malys, Agnes Primary Care Unavailable Malys, Agnes Referring Unavailable Loretta AIR BRAKE MAN, Alex Castillo Attending Unavailable Malys, Agnes Primary Care Unavailable Malys, Agnes Referring Unavailable Heidi Tan Attending Unavailable Mj Mc Attending Unavailable Ditchey, Agnes M Primary Care Unavailable Ruby AIR BRAKE MAN, Amelie Consulting Unavailable Ruby AIR BRAKE MAN, Amelie Referring Unavailable Ditchey, Agnes M Primary Care Unavailable Ruby AIR BRAKE MAN, Amelie Attending Unavailable Ruby AIR BRAKE MAN, Amelie Referring Unavailable Ditchey, Agnes M Primary Care Unavailable Ruby AIR BRAKE MAN, Amelie Attending Unavailable Ruby AIR BRAKE MAN, Amelie Referring Unavailable Malys, Agnes Primary Care Unavailable BobBasim Attending Unavailable Ditchey, Agnes M Primary Care Unavailable Ruby AIR BRAKE MAN, Amelie Attending Unavailable Ruby AIR BRAKE MAN, Amelie Referring Unavailable Ean Alfonso Referring Unavailable Ean Alfonso Attending Unavailable Malys, Agnes Primary Care Unavailable Malys, Agnes Primary Care Unavailable Jake Montalvo Attending Unavailable Allergies Allergy Classification Reported Allergen(s) Allergy Type Date of Onset Reaction(s) Facility (9 sources) Acetaminophen; Translations: [acetaminophen] Drug Allergy Unknown (qualifier value) [facility] (20 sources) Aspirin; Translations: [aspirin] Drug Allergy 2 Unknown [facility] (20 sources) Bee/Wasp/Ant venom Propensity to adverse reactions to substance Difficulty breathing (finding) [facility] (20 sources) Calcium Carbonate; Translations: [calcium carbonate] Drug Allergy 2 Unknown (qualifier value) [facility] (20 sources) Codeine; Translations: [codeine] Drug Allergy 2 Amnesia (finding) [facility] (20 sources) Egg Propensity to adverse reactions to food Nausea and vomiting (disorder) [facility] (20 sources) gabapentin; Translations: [gabapentin] Drug Allergy Abnormal muscle function (finding) [facility] (20 sources) HYDROcodone; Translations: [hydrocodone] Drug Allergy 2 [place] DOES NOT REMEMBER [facility] (20 sources) influenza A virus A/[facility] 11/2014 (H1N1) antigen / influenza A virus A/[facility] (H3N2) antigen / influenza B virus B/[facility] antigen / influenza B virus B/ antigen; Translations: [influenza virus vaccine] Drug Allergy [facility] (20 sources) MAGNESIUM GLUCONATE; Translations: [magnesium gluconate] Drug Allergy Unknown (qualifier value) [facility] Comment on above: patient denies react ion to magnesium (20 sources) Morphine; Translations: [morphine] Drug Allergy 2 Anaphylaxis (disorder) [facility] Comment on above: was on a MS drip aft er surgery in 1999 and coded (20 sources) Penicillin; Translations: [penicillins] Drug Allergy [facility] (20 sources) Propoxyphene; Translations: [propoxyphene] Drug Allergy [facility] (20 sources) vortioxetine; Translations: [vortioxetine] Drug Allergy [facility] (20 sources) flu vaccines; Translations: [flu vaccines] Drug allergy Unknown (qualifier value) [facility] (5 sources) egg extract Drug Allergy 2 FLU SYMTOPMS, WEEKNESS [facility] Work Phone: (6 sources) HYDROcodone; Translations: [hydrocodone bitartrate] Drug Allergy 2 PATIENT DOES NOT REMEMBER [facility] (5 sources) Magnesium Drug Allergy 2 PT UNSURE OF REACTION [facility] Work Phone: (6 sources) Penicillins; Translations: [Penicillins] Allergy to substance 2 Hives [facility] (6 sources) Propoxyphene; Translations: [propoxyphene napsylate] Drug Allergy 2 [place] DOES NOT REMEMBER [facility] (5 sources) vortioxetine Drug Allergy 2 LEGS FELT ON FIRE [facility] Work Phone: (5 sources) venom-honey bee Allergy to substance 2 STOP BREATHING [facility] Work Phone: (3 sources) FLU SHOT Allergy to substance 2 BECARE DEHYDRATED [facility] Work Phone: (2 sources) Influenza Vaccines Propensity to adverse reactions 2 DEHYDRATION [facility] Work Phone: (1 source) Aspirin Drug Allergy 5 [facility] (1 source) Calcium Carbonate Drug Allergy 5 [facility] (1 source) Calcium Carbonate Drug Allergy 5 [facility] (1 source) Codeine Drug Allergy 5 [facility] (1 source) egg extract Drug Allergy 5 [facility] (1 source) gabapentin Drug Allergy 5 [facility] (1 source) HYDROcodone Drug Allergy 5 [facility] (1 source) Magnesium Drug Allergy 5 [facility] (1 source) Morphine Drug Allergy 5 [facility] (1 source) vortioxetine Drug Allergy 5 [facility] (1 source) Influenza Virus Vaccines Drug allergy (disorder) 5 [facility] (1 source) venom-honey bee Drug allergy (disorder) 5 [facility] Medications Current Medications Medication Drug Class(es) Dates Sig (Normalized) Sig (Original) 3 ML semaglutide 1.34 MG/ML Pen Injector [Ozempic] (1 source) Start: 06-23-2023 inject 1 dose by subcutaneous injection every week Ozempic 4 mg/3 mL (1 mg dose) subcutaneous solution Dose : 1 mg =, Subcutaneous, qWeek, # 3 mL, 3 Refill(s), Pharmacy: [facility] [id number], 175, cm, 06/23/23 14:14:00 EST, Height, kg, 06/23/23 14:14:00 EST, Dosing Weight Start Date: 06/23/23 Status: Ordered 3 ML semaglutide 2.68 MG/ML Pen Injector [Ozempic] (16 sources) Start: 06-19-2024 inject 1 dose by subcutaneous injection every week Ozempic 8 mg/3 mL (2 mg dose) subcutaneous solution Dose : 2 mg =, Subcutaneous, qWeek, in the abdomen, thigh, or upper arm, # 3 mL, 3 Refill(s), Pharmacy: [facility], 175.3, cm, 06/15/24 9:31:00 EST, Height, kg, 06/15/24 9:31:00 EST, Dosing Weight Start Date: 06/19/24 Status: Ordered Quantity: 3.0 Unit: mL Repeat number: 4 Start: 11-07-2023 inject 1 dose by sub cutaneous injection every week Ozempic 8 mg/3 mL (2 mg dose) subcutaneous solution Dose : 2 mg =, Subcutaneous, qWeek, in the abdomen, thigh, or upper arm, # 3 mL, 3 Refill(s), Pharmacy: [facility] [id number], 175, cm, 09/08/23 15:18:00 EDT, Height, kg, 09/08/23 15:18:00 EDT, Dosing Weight Start Date: 11/07/23 Status: Ordered Quantity: 3.0 Unit: mL Repeat number: 4 Start: 11-07-2023 inject 1 dose by sub cutaneous injection every week Ozempic 8 mg/3 mL (2 mg dose) subcutaneous solution Dose : 2 mg =, Subcutaneous, qWeek, in the abdomen, thigh, or upper arm, # 3 mL, 3 Refill(s), Pharmacy: [id number], 175, cm, 09/08/23 15:18:00 EDT, Height, kg, 09/08/23 15:18:00 EDT, Dosing Weight Start Date: 11/07/23 Status: Ordered acetaminophen 32 mg/ml oral solution (14 sources) Start: 03-10-2021 take 325 mg by mouth every four hours Acetaminophen Active 325 MG PO Q4H March 10, 2021 12:00am Start: 02-24-2021 Tylenol 325 mg oral capsule Dose : 650 mg =, Oral, q4h, PRN Pain, scale 1-3, 0 Refill(s) Start Date: 02/24/21 Status: Ordered acetaminophen 325 mg / oxyCODONE hydrochloride 5 mg oral tablet (1 source) Opioid Agonist Start: 02-24-2021 End: 03-03-2021 take 1 tablet by mouth every six hours as needed for pain acetaminophen-oxyCODONE 325 mg-5 mg oral tablet Dose = 1 tab(s), Oral, q6h, PRN for pain, X 7 day(s), # 28 tab(s), 0 Refill(s), Pharmacy: [id number] [facility], Carcinoid tumor of lung s/p LVAT, SARAY lobectomy, lymph node biopsy, cyro analgesia of intercostal nerves 02/18/21, 175.3, cm, 02/18/21 6:1... Start Date: 02/24/21 Stop Date: 03/03/21 Status: Ordered Albuterol (5 sources) beta2-Adrene rgic Agonist Start: 07-12-2013 take 6.7 g by inhalation every four hours as needed Albuterol Sulfate Active 6.7 GM IH EVERY 4 HOURS NEEDED July 11, 2013 11:00pm Start: 07-12-2013 take 6.7 g by inhala tion every four hours as needed Albuterol Sulfate Active 6.7 GM IH EVERY 4 HOURS NEEDED July 12, 2013 12:00am DuoNeb (20 sources) Anticholinergic, beta2-Adrenergic Agonist Start: 07-05-2022 DuoNeb Dose = 3 mL, Inhalation, q2hRT, PRN Shortness of breath (SOB), 0 Refill(s) Start Date: 07/05/22 Status: Ordered Repeat number: 1 Start: 07-05-2022 DuoNeb Dose = 3 mL, Inhalation, q2hRT, PRN Shortness of breath (SOB), 0 Refill(s) Start Date: 07/05/22 Status: Ordered albuterol MDI (90 mcg/inh) CFC free inhalation aerosol (20 sources) Start: 06-26-2024 End: 08-25-2024 take 2 doses by inhalation every four hours albuterol MDI (90 mcg/inh) CFC free inhalation aerosol Dose : 180 mcg = 2 inh, Inhalation, q4h, # 18 gram(s), 1 Refill(s), Pharmacy: [facility]/pharmacy #[id number], COPD, 175.3, cm, 06/15/24 9:31:00 EST, Height, kg, 06/26/24 15:05:00 EDT, Dosing Weight Start Date: 06/26/24 Stop Date: 08/25/24 Status: Ordered Quantity: 18.0 Unit: g Repeat number: 2 Indications: Chronic obstructive pulmonary disease, unspecified; Start: 09-14-2018 take 2 puff(s) by in halation every four hours as needed for wheezing albuterol MDI (90 mcg/inh) CFC free inhalation aerosol 2 puff(s), Inhalation, q4h, PRN as needed for wheezing, # 18 gram(s), 0 Refill(s) Start Date: 09/14/18 Status: Ordered Quantity: 18.0 Unit: g Repeat number: 1 Start: 09-14-2018 take 2 puff(s) by in halation every four hours as needed for wheezing albuterol MDI (90 mcg/inh) CFC free inhalation aerosol 2 puff(s), Inhalation, q4h, PRN as needed for wheezing, # 18 gram(s), 0 Refill(s) Start Date: 09/14/18 Status: Ordered allopurinol 100 mg oral tablet (18 sources) Xanthine Oxidase Inhibitor Start: 06-07-2024 allopurinol 100 mg oral tablet Dose : 200 mg = 2 tab(s), Oral, qDay, # 180 tab(s), 1 Refill(s), Pharmacy: [facility] [id number], 174.5, cm, 05/17/24 13:33:00 EST, Height, kg, 05/17/24 13:33:00 EST, Dosing Weight Start Date: 06/07/24 Status: Ordered Quantity: 180.0 Unit: tab(s) Repeat number: 2 Start: 02-03-2023 allopurinol 10 0 mg oral tablet Dose : 100 mg = 1 tab(s), Oral, BID, # 180 tab(s), 0 Refill(s) Start Date: 02/03/23 Status: Ordered Quantity: 180.0 Unit: tab(s) Repeat number: 1 atenolol 50 mg oral tablet (20 sources) beta-Adrenergic Erik Start: 06-07-2024 atenol ol 50 mg oral tablet Dose : 50 mg = 1 tab(s), Oral, qAM, # 90 tab(s), 1 Refill(s), Pharmacy: [facility] [id number], 174.5, cm, 05/17/24 13:33:00 EST, Height, kg, 05/17/24 13:33:00 EST, Dosing Weight Start Date: 06/07/24 Status: Ordered Quantity: 90.0 Unit: tab(s) Repeat number: 2 Start: 02-10-2024 End: 02-10-2024 take 1 tablet by mouth in the morning atenolol Start: 02/10/24 9:00:00 AM EDT, Dose = 50 mg, = 1 tab(s), Oral, Hold if SBP (mmHg) Start Date: 02/10/24 Stop Date: 02/10/24 Status: Completed Start: 02-08-2024 End: 02-08-2024 take 1 tablet by mouth in the morning atenolol Start: 02/08/24 9:00:00 AM EDT, Dose = 50 mg, = 1 tab(s), Oral, Hold if SBP (mmHg) Start Date: 02/08/24 Stop Date: 02/08/24 Status: Completed Start: 02-07-2024 End: 02-07-2024 take 1 tablet by mouth in the morning atenolol Start: 02/07/24 9:00:00 AM EDT, Dose = 50 mg, = 1 tab(s), Oral, Hold if SBP (mmHg) Start Date: 02/07/24 Stop Date: 02/07/24 Status: Completed Start: 11-04-2022 End: 11-04-2022 atenolol Start: 11/04/22 9:00 :00 AM EDT, Dose = 50 mg, = 1 tab(s), Oral, 11/01/22 21:57:00 EDT Start Date: 11/04/22 Stop Date: 11/04/22 Status: Completed Start: 07-09-2022 End: 07-09-2022 atenolol Start: 07/09/22 9:0 0:00 EDT, Dose = 50 mg, = 1 tab(s), Oral, Hold if SBP (mmHg) Start Date: 07/09/22 Stop Date: 07/09/22 Status: Completed Start: 02-02-2021 atenolol 50 mg oral tablet Dose : 50 mg = 1 tab(s), Oral, qAM, 0 Refill(s) Start Date: 02/02/21 Status: Ordered Repeat number: 1 Start: 11-04-2020 End: 05-05-2021 take 25 mg by mouth once daily Atenolol Discontinued 2 5 MG PO DAILY November 03, 2020 11:00pm May 05, 2021 3:16pm atorvastatin 80 mg oral tablet (20 sources) HMG-CoA Reductase Inhibitor Start: 09-08-2023 atorvastatin 80 mg oral tablet Dose : 80 mg = 1 tab(s), Oral, Daily, can be done in pill pack from next month, # 90 tab(s), 3 Refill(s), Pharmacy: [place] [id number], 175, cm, 09/08/23 15:18:00 EDT, Height, kg, 09/08/23 15:18:00 EDT, Dosing Weight Start Date: 09/08/23 Status: Ordered Quantity: 90.0 Unit: tab(s) Repeat number: 4 Start: 07-12-2013 atorvastatin 4 0 mg oral tablet Dose : 40 mg = 1 tab(s), Oral, qHS, 0 Refill(s) Start Date: 03/20/17 Status: Ordered azithromycin 250 mg oral tablet (1 source) Macrolide Antimicrobial Start: 04-29-2021 End: 05-03-2021 azithromycin 250 mg oral tablet Dose : 250 mg = 1 tab(s), Oral, Daily, Take with a probiotic, X 4 day(s), # 4 tab(s), 0 Refill(s), 05/03/21 18:30:00 EST, 140.1 Start Date: 04/29/21 Stop Date: 05/03/21 Status: Ordered Azithromycin 5 Day Dose Pack 250 mg oral tablet (1 source) Start: 07-21-2021 End: 07-26-2021 take 1 tablet by mouth once daily Azithromycin 5 Day Dose Pack 250 mg oral tablet 1 dose, Oral, Daily, X 5 day(s), # 6 tab(s), 0 Refill(s), 07/26/21 20:16:00 EDT, Acute exacerbation of COPD Bronchitis, 140.1 Start Date: 07/21/21 Stop Date: 07/26/21 Status: Ordered benzonatate 200 mg oral capsule (16 sources) Non-narcotic Antitussive Start: 12-17-2020 benzonatate 200 mg oral capsule Dose : 200 mg = 1 cap(s), Oral, TID, PRN as needed for cough, # 30 cap(s), 0 Refill(s) Start Date: 12/17/20 Status: Ordered Start: 10-30-2020 End: 11-04-2020 take 200 mg by mouth twice daily Benzonatate Discontinued 200 MG PO TWICE A DAY October 29, 2020 11:00pm November 04, 2020 8:19am bimatoprost 0.1 mg/ml ophthalmic solution (20 sources) Prostaglandin Analog Start: 02-03-2023 Lumigan 0 .01% ophthalmic solution Dose = 1 drop(s), Eyes, both, qHS, 0 Refill(s) Start Date: 02/03/23 Status: Ordered Repeat number: 1 Start: 02-24-2020 Lumigan 0.01% ophthalmic solution Dose = 1 drop(s), Eyes, both, qHS, 0 Refill(s) Start Date: 02/24/20 Status: Ordered Start: 02-24-2020 Lumigan 0.01% ophthalmic solution Dose = 1 drop(s), Eyes, both, qHS, 0 Refill(s) Start Date: 02/24/20 Status: Ordered calcium carbonate 1250 mg / cholecalciferol 0.01 mg chewable tablet (5 sources) Vitamin D Start: 06-12-2020 Calcium Carbonate-Vitamin D3 Active 1 EACH PO DAILY June 12, 2020 12:00am calcium carbonate 600 MG / ergocalciferol 200 UNT Oral Capsule (20 sources) Provitamin D2 Compound Start: 02-02-2021 take 1 capsule by mouth once at lunch calcium-vitamin D 600 mg-5 mcg (200 intl units) oral capsule Dose = 1 cap(s), Oral, with lunch, 0 Refill(s) Start Date: 02/02/21 Status: Ordered Repeat number: 1 Start: 02-02-2021 take 1 capsule by mo uth once at lunch calcium-vitamin D 600 mg-5 mcg (200 intl units) oral capsule Dose = 1 cap(s), Oral, with lunch, 0 Refill(s) Start Date: 02/02/21 Status: Ordered cephalexin 500 mg oral capsule (2 sources) Cephalosporin Antibacterial Start: 10-08-2021 take 500 mg by mouth every twelve hours Cephalexin Active 500 MG PO EVERY 12 HOURS 6 October 08, 2021 12:00am Chlorpheniramine (1 source) Histamine-1 Receptor Antagonist Start: 09-20-2022 End: 09-21-2022 take 1 dose by mouth every four hours Diabetic Tussin DM 20 mg-200 mg/10 mL oral liquid Dose = 10 mL, Oral, q4h, # 120 mL, 0 Refill(s), [id number], 175.3, cm, 09/20/22 0:36:00 EDT, Height Start Date: 09/20/22 Stop Date: 09/21/22 Status: Ordered ciprofloxacin 500 mg oral tablet (2 sources) Quinolone Antimicrobial Start: 12-13-2023 take 1 tablet by mouth twice daily ciprofloxacin 500 mg oral tablet TAKE 1 TABLET BY MOUTH TWICE A DAY Start Date: 12/13/23 Status: Ordered colchicine 0.6 mg oral capsule (20 sources) Start: 09-20-2022 colchicine 0.6 mg oral capsule Dose : 0.6 mg = 1 cap(s), Oral, qDay, PRN Gout pain, # 30 cap(s), 0 Refill(s) Start Date: 09/20/22 Status: Ordered Quantity: 30.0 Unit: cap(s) Repeat number: 1 colestipol hydrochloride 1000 mg oral tablet (20 sources) Bile Acid Sequestrant Start: 07-09-2022 Colestid 1 g oral tablet Dose : 2 gram(s) = 2 tab(s), Oral, BID, 0 Refill(s) Start Date: 07/09/22 Status: Ordered Repeat number: 1 24 hr desvenlafaxine succinate 50 mg extended release oral tablet (20 sources) Serotonin and Norepinephrine Reuptake Inhibitor Start: 11-01-2022 desvenlafaxine (as succinate) 50 mg oral tablet, extended release Dose : 50 mg = 1 tab(s), Oral, qDay, 0 Refill(s) Start Date: 11/01/22 Status: Ordered Repeat number: 1 Start: 10-01-2021 take 1 tablet by brendan once daily, then take 1 tablet by mouth every twenty-four hours Desvenlafaxine Succinate (Pristiq) 100 mg tablet extended release 24 hr Active 100 MG PO DAILY September 30, 2021 11:00pm Start: 09-14-2018 desvenlafaxine 100 mg oral tablet, extended release Dose : 100 mg = 1 tab(s), Oral, qAM, 0 Refill(s) Start Date: 09/14/18 Status: Ordered Start: 06-15-2017 End: 07-21-2017 take 50 mg by mouth once daily Desvenlafaxine Disconti nued 50 MG PO DAILY June 15, 2017 12:00am July 21, 2017 12:07pm dexamethasone 6 mg oral tablet (1 source) Corticosteroid Start: 04-29-2021 End: 05-03-2021 dexamethasone 6 mg oral tablet Dose : 6 mg = 1 tab(s), Oral, qDay, with food, X 4 day(s), # 4 tab(s), 0 Refill(s), 05/03/21 18:30:00 EST Start Date: 04/29/21 Stop Date: 05/03/21 Status: Ordered diclofenac sodium 0.01 mg/mg topical gel (20 sources) Nonsteroidal Anti-inflammatory Drug Start: 04-16-2024 diclofenac 1% top ical gel Apply 1 trudy, Topical, QID, # 100 gram(s), 0 Refill(s), Gel, 134 Start Date: 04/16/24 Status: Ordered Quantity: 100.0 Unit: g Repeat number: 1 Start: 02-03-2023 diclofenac sod ium 75 mg oral delayed release tablet Dose : 75 mg = 1 tab(s), Oral, BID, # 180 tab(s), 0 Refill(s) Start Date: 02/03/23 Status: Ordered Quantity: 180.0 Unit: tab(s) Repeat number: 1 Start: 06-08-2017 diclofenac sod ium 75 mg oral delayed release tablet Dose : 75 mg = 1 tab(s), Oral, BID, 0 Refill(s) Start Date: 12/17/20 Status: Ordered diclofenac sodium 75 mg oral delayed release tablet (6 sources) Start: 12-17-2020 diclofenac sod ium 75 mg oral delayed release tablet Dose : 75 mg = 1 tab(s), Oral, BID, 0 Refill(s) Start Date: 12/17/20 Status: Ordered DilTIAZem (Eqv-Cardizem CD) 120 mg/24 hours oral capsule, extended release (2 sources) Start: 02-17-2023 DilTIAZem (Eqv -Cardizem CD) 120 mg/24 hours oral capsule, extended release Dose : 120 mg = 1 cap(s), 0 Refill(s) Start Date: 02/17/23 Status: Ordered DME MISCellaneous (8 sources) Start: 04-26-2024 DME MISCellane ous See Instructions, [employer] Jose Raul 3 plus Sensors. 1 sensor every 15 days. 2 sensors per 30 days. 3 refills. E11.65, # 2 EA, 3 Refill(s), Pharmacy: [facility] - [id number], 175.3, cm, 04/26/24 14:13:00 EST, Height, 126.7, kg, 04/26/24 14:13:00 EST, Dosing Weight Start Date: 04/26/24 Status: Ordered Quantity: 2.0 Unit: EA Repeat number: 4 Start: 04-26-2024 DME MISCellane ous See Instructions, [employer] Jose Raul 3 [place]. 1 every 12 months. 0 refills. E11.65, # 1 EA, 0 Refill(s), Pharmacy: [place] [id number], 175.3, cm, 04/26/24 14:13:00 EST, Height, 126.7, kg, 04/26/24 14:13:00 EST, Dosing Weight Start Date: 04/26/24 Status: Ordered Quantity: 1.0 Unit: EA Repeat number: 1 Start: 04-01-2024 DME MISCellane ous See Instructions, freestyle jose raul 2 sensors 1 sensor every 14 days #2 sensors for 28 days and 3 refills E11.65., # 2 EA, 3 Refill(s), Pharmacy: [facility] [id number], 175.3, cm, 02/01/24 20:01:00 EDT, Height, 134.1, kg, 02/01/24 20:01:00 EDT, Dosing Weight Start Date: 04/01/24 Status: Ordered Quantity: 2.0 Unit: EA Repeat number: 4 Start: 04-01-2024 DME MISCellane ous See Instructions, freestyle jose raul 2 sensors 1 sensor every 14 days #2 sensors for 28 days and 3 refills E11.65., # 2 EA, 3 Refill(s), Pharmacy: [facility] [id number], 175.3, cm, 02/01/24 20:01:00 EDT, Height, 134.1, kg, 02/01/24 20:01:00 EDT, Dosing Weight Start Date: 04/01/24 Status: Ordered doxepin hydrochloride 100 mg oral capsule (20 sources) Tricyclic Antidepressant Start: 12-17-2020 doxep in 100 mg oral capsule Dose : 100 mg = 1 cap(s), Oral, qHS, # 30 cap(s), 0 Refill(s) Start Date: 12/17/20 Status: Ordered Quantity: 30.0 Unit: cap(s) Repeat number: 1 Start: 01-27-2016 take 100 mg by mouth at bedtim e Doxepin Active 100 MG PO AT BEDTIME January 26, 2016 11:00pm Fish Oils (20 sources) Start: 06-07-2024 Fish Oil 1000 mg oral capsule Dose : 2,000 mg = 2 cap(s), Oral, BID, # 360 cap(s), 1 Refill(s), Pharmacy: [facility] [id number], 174.5, cm, 05/17/24 13:33:00 EST, Height, kg, 05/17/24 13:33:00 EST, Dosing Weight Start Date: 06/07/24 Status: Ordered Quantity: 360.0 Unit: cap(s) Repeat number: 2 Start: 02-02-2021 Fish Oil 1000 mg oral capsule Dose : 2,000 mg = 2 cap(s), Oral, BID, # 60 cap(s), 0 Refill(s) Start Date: 02/02/21 Status: Ordered Quantity: 60.0 Unit: cap(s) Repeat number: 1 Start: 02-02-2021 Fish Oil 1000 mg oral capsule Dose : 2,000 mg = 2 cap(s), Oral, BID, # 60 cap(s), 0 Refill(s) Start Date: 02/02/21 Status: Ordered FREESTYLE JOSE RAUL 2 SENSOR (18 sources) Start: 02-03-2023 FREESTYLE LIBR E 2 SENSOR FREESTYLE JOSE RAUL 2 SENSOR, use as directed Start Date: 02/03/23 Status: Ordered Repeat number: 1 Start: 02-03-2023 FREESTYLE LIBR E 2 SENSOR FREESTYLE JOSE RAUL 2 SENSOR, use as directed Start Date: 02/03/23 Status: Ordered furosemide 20 mg oral tablet (20 sources) Loop Diuretic Start: 06-07-2024 furosemide 20 mg oral tablet Dose : 20 mg = 1 tab(s), Oral, BID, # 180 tab(s), 1 Refill(s), Pharmacy: [facility] [id number], 174.5, cm, 05/17/24 13:33:00 EST, Height, kg, 05/17/24 13:33:00 EST, Dosing Weight Start Date: 06/07/24 Status: Ordered Quantity: 180.0 Unit: tab(s) Repeat number: 2 Start: 07-05-2022 furosemide 20 mg oral tablet Dose : 20 mg = 1 tab(s), Oral, BID, Resume on 09/23/22, 0 Refill(s) Start Date: 07/05/22 Status: Ordered Repeat number: 1 Start: 11-04-2020 furosemide 20 mg oral tablet Dose : 20 mg = 1 tab(s), Oral, BID, 0 Refill(s) Start Date: 12/17/20 Status: Ordered Start: 07-12-2013 End: 07-31-2018 take 40 mg by mouth twice daily Furosemide Discontinued 40 MG PO TWICE A DAY July 11, 2013 11:00pm July 31, 2018 12:13pm glipiZIDE 10 mg oral tablet (8 sources) Sulfonylurea Start: 02-02-2021 glipiZIDE 10 m g oral tablet, extended release Dose : 10 mg = 1 tab(s), Oral, BID, 0 Refill(s) Start Date: 02/02/21 Status: Ordered Start: 07-01-2020 take 10 mg by mouth twice daily Glipizide Active 10 MG PO TWICE A DAY July 01, 2020 12:00am Start: 06-08-2017 End: 04-30-2020 take 5 mg by mouth once daily Glipizide Discontinued 5 MG PO DAILY@0730 June 08, 2017 12:00am April 30, 2020 11:49am HumuLIN 70/30 KwikPen 70 units-30 units/mL subcutaneous suspension (5 sources) Start: 02-24-2021 HumuLIN 70/30 KwikPen 70 units-30 units/mL subcutaneous suspension 35 unit(s), Subcutaneous, BIDAC, Do not take if you do not eat, # 30 mL, 1 Refill(s), Pharmacy: [address], Diabetes mellitus type 2, 175.3, cm, 02/18/21 6:13:00 EDT, Height, kg, 02/18/21 6:13:00 EDT, Dosing Weight Start Date: 02/24/21 Status: Ordered hydroCHLOROthiazide 12.5 mg / valsartan 80 mg oral tablet (20 sources) Thiazide Diuretic, Angiotensin 2 Receptor Erik Start: 06-07-2024 take 1 tablet by mouth once daily hydrochlorothiazid e-valsartan 12.5 mg-80 mg oral tablet Dose = 0.5 tab(s), Oral, qDay, # 45 tab(s), 1 Refill(s), Pharmacy: [place] [facility] [id number], 174.5, cm, 05/17/24 13:33:00 EST, Height, kg, 05/17/24 13:33:00 EST, Dosing Weight Start Date: 06/07/24 Status: Ordered Quantity: 45.0 Unit: tab(s) Repeat number: 2 Start: 02-03-2023 take 1 tablet by brendan th once daily hydrochlorothiazide-valsartan 12.5 mg-80 mg oral tablet Dose = 0.5 tab(s), Oral, qDay, 0 Refill(s) Start Date: 02/03/23 Status: Ordered Repeat number: 1 Start: 10-01-2021 take 1 tablet by brendan th once daily Valsartan-Hydrochlorothiazide Active 1 TABLET PO DAILY September 30, 2021 11:00pm Start: 12-17-2020 take 1 tablet by brendan th once daily in the morning hydrochlorothiazide-valsartan 12.5 mg-16 0 mg oral tablet Dose = 1 tab(s), Oral, qAM, 0 Refill(s) Start Date: 12/17/20 Status: Ordered Start: 07-12-2013 End: 11-04-2020 take 1 tablet by mouth once daily Valsartan-Hydrochlorothiazide Discontinu ed 1 TABLET PO DAILY July 11, 2013 11:00pm November 04, 2020 8:17am 3 ml insulin degludec 200 unt/ml pen injector (17 sources) Insulin Analog Start: 04-26-2024 inject 1 dose by subcutaneous injection once daily Tresiba FlexTouch 200 units/mL 3 mL subcutaneous solution Dose : 60 unit(s) =, Subcutaneous, qDay, # 9 mL, 3 Refill(s), [facility] [id number], 175.3, cm, 04/26/24 14:13:00 EST, Height, kg, 04/26/24 14:13:00 EST, Dosing Weight Start Date: 04/26/24 Status: Ordered Quantity: 9.0 Unit: mL Repeat number: 4 Start: 02-10-2024 inject 1 dose by sub cutaneous injection once daily Tresiba FlexTouch 200 units/mL 3 mL subcutaneous solution Dose : 76 unit(s) =, Subcutaneous, qDay, 0 Refill(s) Start Date: 02/10/24 Status: Ordered Repeat number: 1 Start: 09-08-2023 Tresiba FlexTo uch 200 units/mL 3 mL subcutaneous solution See Instructions, 85 unit(s) Subcutaneous qDay, # 18 mL, 3 Refill(s), Pharmacy: [facility] [id number], 175, cm, 09/08/23 15:18:00 EDT, Height, kg, 09/08/23 15:18:00 EDT, Dosing Weight Start Date: 09/08/23 Status: Ordered Start: 06-23-2023 inject 1 dose by sub cutaneous injection once daily Tresiba FlexTouch 200 units/mL 3 mL subcutaneous solution Dose : 100 unit(s) =, Subcutaneous, qDay, # 9 mL, 3 Refill(s), Pharmacy: [facility] [id number], 175, cm, 06/23/23 14:14:00 EST, Height, kg, 06/23/23 14:14:00 EST, Dosing Weight Start Date: 06/23/23 Status: Ordered 3 ml insulin glargine 100 unt/ml pen injector (7 sources) Insulin Analog Start: 04-28-2023 inject 1 dose by subcutaneous injection once daily at bedtime Lantus Solostar Pen 100 units/mL 3 mL Pen Dose : 70 unit(s) =, Subcutaneous, qHS, 40 units in am and 70 unuits at nighttime, # 30 mL, 3 Refill(s), other reason (Rx) Start Date: 04/28/23 Status: Ordered Start: 07-09-2022 inject 1 dose by sub cutaneous injection twice daily Lantus 100 units/mL10 ml vial solution Dose : 70 unit(s) =, Subcutaneous, BID, 0 Refill(s) Start Date: 07/09/22 Status: Ordered Start: 07-09-2022 inject 1 dose by sub cutaneous injection once daily at bedtime Lantus 100 units/mL10 ml vial solution Dose : 52 unit(s) =, Subcutaneous, qHS, 0 Refill(s) Start Date: 07/09/22 Status: Ordered insulin isophane / insulin, regular, human (17 sources) Insulin Start: 09-20-2022 inject 66 [IU] by subcutaneous injection twice daily 30 minutes before breakfast HumuLIN 70/30 See Instructions, 66 units bid 30mins before breakfast and dinner Subcutaneous, 0 Refill(s) Start Date: 09/20/22 Status: Ordered Start: 11-03-2021 Insulin Nph An d Regular Human (Humulin 70/30 U-100 Insulin) 100 unit/mL (70-30) suspension Active 38 UNIT SC TWICE A DAY November 03, 2021 2:08pm Start: 03-10-2021 End: 11-03-2021 Insulin Nph And Regular Stephany n (Humulin 70/30 U-100 Insulin) 100 unit/mL (70-30) suspension Discontinued 35 UNIT SC TWICE A DAY March 10, 2021 12:00am November 03, 2021 2:10pm Start: 02-24-2021 HumuLIN 70/30 KwikPen 70 units-30 units/mL subcutaneous suspension 35 unit(s), Subcutaneous, BIDAC, Do not take if you do not eat, # 30 mL, 1 Refill(s), Pharmacy: [id number], Diabetes mellitus type 2, 175.3, cm, 02/18/21 6:13:00 EDT, Height, kg, 02/18/21 6:13:00 EDT, Dosing Weight Start Date: 02/24/21 Status: Ordered 3 ml insulin lispro 100 unt/ml pen injector (20 sources) Insulin Analog Start: 07-19-2024 HumaLOG KwikPe n 100 units/mL injectable PEN Dose : 25 unit(s) =, Subcutaneous, TIDAC, # 15 mL, 3 Refill(s), Pharmacy: [place] [id number], 175.3, cm, 06/15/24 9:31:00 EST, Height, kg, 06/26/24 15:05:00 EDT, Dosing Weight Start Date: 07/19/24 Status: Ordered Quantity: 15.0 Unit: mL Repeat number: 4 Start: 11-07-2023 HumaLOG KwikPe n 100 units/mL injectable PEN Dose : 35 unit(s) =, Subcutaneous, TIDAC, # 15 mL, 3 Refill(s), Pharmacy: [facility] [id number], 175, cm, 09/08/23 15:18:00 EDT, Height, kg, 09/08/23 15:18:00 EDT, Dosing Weight Start Date: 11/07/23 Status: Ordered Quantity: 15.0 Unit: mL Repeat number: 4 Start: 06-23-2023 HumaLOG KwikPe n 100 units/mL injectable PEN Dose : 35 unit(s) =, Subcutaneous, TIDAC, # 15 mL, 3 Refill(s), Pharmacy: [facility] [id number], 175, cm, 06/23/23 14:14:00 EST, Height, kg, 06/23/23 14:14:00 EST, Dosing Weight Start Date: 06/23/23 Status: Ordered Start: 04-28-2023 HumaLOG KwikPe n 100 units/mL injectable PEN Dose : 25 unit(s) =, Subcutaneous, TIDAC, # 15 mL, 3 Refill(s), other reason (Rx) Start Date: 04/28/23 Status: Ordered Start: 09-20-2022 inject 24 [IU] by linton bcutaneous injection at bedtime HumaLOG 100 units/mL injectable solution VIAL See Instructions, 24 unit(s) Subcutaneous achs when blood sugar greater than 350, 0 Refill(s) Start Date: 09/20/22 Status: Ordered Start: 07-05-2022 HumaLOG 100 un its/mL subcutaneous solution Dose : 24 unit(s) =, Subcutaneous, TIDAC, 0 Refill(s) Start Date: 07/05/22 Status: Ordered Insulin [place] (Disposable) (5 sources) Start: 03-10-2021 Insulin Needle s (Disposable) Active 0 .ROUTE .MEDSUPPLY March 10, 2021 12:00am As directed Start: 03-10-2021 Insulin Needle s (Disposable) Active 0 .ROUTE .MEDSUPPLY March 10, 2021 1:00am As directed lamoTRIgine 150 mg oral tablet (5 sources) Mood Stabilizer, Anti-epileptic Agent Start: 07-04-2022 LaMICtal 150 mg oral tablet Dose : 150 mg = 1 tab(s), Oral, qDay Start Date: 07/04/22 Status: Ordered Start: 11-03-2021 take 100 mg by mouth once Lamo trigine Active 100 MG PO ONCE November 02, 2021 11:00pm Start: 11-03-2021 take 25 mg by mouth once Lamot rigine Active 25 MG PO ONCE Shona 19th, 2022 12:00am levoFLOXacin 750 mg oral tablet (6 sources) Quinolone Antimicrobial Start: 09-20-2022 End: 09-27-2022 levoFLOXacin 750 mg oral tablet Dose : 750 mg = 1 tab(s), Oral, q24h, X 7 day(s), # 7 tab(s), 0 Refill(s), 09/27/22 16:01:00 EDT, Pharmacy: [facility] #[id number], 175.3, cm, 09/20/22 0:36:00 EDT, Height, 160.5 Start Date: 09/20/22 Stop Date: 09/27/22 Status: Ordered Start: 06-23-2020 End: 10-30-2020 take 750 mg by mouth once daily Levofloxacin Discontinued 750 MG PO DAILY June 23, 2020 12:00am October 30, 2020 9:51am start on 06/24/20, finish on 07/01/20 Lidocaine (2 sources) Antiarrhythmic, Amide Local Anesthetic Start: 07-05-2022 apply 2 doses transdermal route every twenty-four hours lidocaine 4% patch Dose = 2 film, Transdermal, q24h, 0 Refill(s) Start Date: 07/05/22 Status: Ordered Start: 06-30-2022 End: 07-10-2022 lidocaine 5% topical patch A pply 1 patch(es), Topical, Daily, X 10 day(s), # 10 patch(es), 0 Refill(s), 140.1 Start Date: 06/30/22 Stop Date: 07/10/22 Status: Ordered loratadine 10 mg oral tablet (5 sources) Start: 09-20-2022 take 1 dose by mouth once daily loratadine Dose : 10 mg =, Oral, qDay, 0 Refill(s) Start Date: 09/20/22 Status: Ordered Start: 11-03-2021 take 1 tablet by brendan once daily Loratadine (Allergy Relief (Loratadine)) 10 mg tablet Active 10 MG PO DAILY November 03, 2021 12:00am Magnesium (2 sources) Start: 10-01-2021 take 250 mg by mouth once daily Magnesium Active 250 MG PO DAILY October 01, 2021 12:00am magnesium oxide 400 mg oral tablet (20 sources) Start: 11-04-2022 magnesium oxid e 400 mg oral tablet Dose : 400 mg = 1 tab(s), Oral, qDay, 0 Refill(s) Start Date: 11/04/22 Status: Ordered Repeat number: 1 Start: 07-05-2022 magnesium oxid e 400 mg oral tablet Dose : 400 mg = 1 tab(s), Oral, BID, 0 Refill(s) Start Date: 07/05/22 Status: Ordered metFORMIN hydrochloride 1000 mg oral tablet (20 sources) Biguanide Start: 07-04-2022 metFORMIN 1000 mg oral tablet (IR) Dose : 1,000 mg = 1 tab(s), Oral, BID Start Date: 07/04/22 Status: Ordered Start: 02-24-2021 metFORMIN 500 mg oral tablet EXTENDED RELEASE Dose : 500 mg = 1 tab(s), Oral, BID, # 60 tab(s), 1 Refill(s), Pharmacy: [facility] [address], Diabetes mellitus type 2 CKD (chronic kidney disease), stage III, 175.3, cm, 02/18/21 6:13:00 EDT, Height, kg, 02/18/21 6:13:00 EDT, Dosing Weight Start Date: 02/24/21 Status: Ordered Start: 07-01-2020 take 1500 mg by mout h twice daily at mealtime Metformin Active 1500 MG PO TWICE DAILY WITH MEALS June 30, 2020 11:00pm Start: 02-19-2017 metFORMIN 1000 mg oral tablet Dose : 1,000 mg = 1 tab(s), Oral, BID, 0 Refill(s) Start Date: 02/19/17 Status: Ordered Start: 07-12-2013 End: 07-21-2017 take 1000 mg by mouth twice daily Metformin Discontinued 1000 MG PO TWICE A DAY July 11, 2013 11:00pm July 21, 2017 12:07pm Gezdxuwb-Zmwa-Iq-Calcium-Min s (Therems-M) 9 mg iron-400 mcg tablet (5 sources) Start: 10-01-2021 Ajzpcabl-Pumf-Zn-Calcium-Min s (Therems-M) 9 mg iron-400 mcg tablet Active 1 TABLET PO DAILY September 30, 2021 11:00pm Start: 10-01-2021 Multivit-Iron- Sv-Ptwhvwd-Dcjs (Therems-M) 9 mg iron-400 mcg tablet Active 1 TABLET PO DAILY October 01, 2021 12:00am nystatin [id number] unt/ml oral suspension (1 source) Polyene Antifungal Start: 09-20-2022 End: 10-04-2022 take 1 dose by mouth four times daily nystatin 100,000 units/mL oral suspension Dose : 500,000 unit(s) = 5 mL, Swish & Swallow, QID, X 14 day(s), # 280 mL, 0 Refill(s), 10/04/22 16:01:00 EDT, Pharmacy: [facility] #[id number], 175.3, cm, 09/20/22 0:36:00 EDT, Height Start Date: 09/20/22 Stop Date: 10/04/22 Status: Ordered Dunbar-3 Fatty Acids-Fish Oil (5 sources) Start: 01-27-2016 Dunbar-3 Fatty Acids-Fish Oil Active 2 EACH PO TWICE A DAY January 26, 2016 11:00pm Start: 01-27-2016 Dunbar-3 Fatty Acids-Fish Oil Active 2 EACH PO TWICE A DAY January 27, 2016 12:00am omeprazole 40 mg delayed release oral capsule (20 sources) Proton Pump Inhibitor Start: 06-07-2024 omeprazo le 40 mg oral delayed release capsule Dose : 40 mg = 1 cap(s), Oral, qAM, # 90 cap(s), 1 Refill(s), Pharmacy: [facility] [id number], 174.5, cm, 05/17/24 13:33:00 EST, Height, kg, 05/17/24 13:33:00 EST, Dosing Weight Start Date: 06/07/24 Status: Ordered Quantity: 90.0 Unit: cap(s) Repeat number: 2 Start: 02-24-2020 omeprazole 40 mg oral delayed release capsule Dose : 40 mg = 1 cap(s), Oral, qAM, 0 Refill(s) Start Date: 02/24/20 Status: Ordered Repeat number: 1 24 hr oxybutynin chloride 10 mg extended release oral tablet (20 sources) Cholinergic Muscarinic Antagonist Start: 09-20-2022 take 1 tablet by mouth every hour, then take 1 tablet by mouth once daily oxybutynin 10 mg/24 hr oral tablet, extended release Dose : 10 mg = 1 tab(s), Oral, qDay, # 30 tab(s), 0 Refill(s) Start Date: 09/20/22 Status: Ordered Quantity: 30.0 Unit: tab(s) Repeat number: 1 Start: 04-30-2020 take 10 mg by mouth once daily Oxybutynin Chloride Active 10 MG PO DAILY April 30, 2020 12:00am Start: 02-24-2020 take 1 tablet by brendan th every hour, then take 1 tablet by mouth once daily in the morning oxybutynin 10 mg/24 hr oral tablet, extended release Dose : 10 mg = 1 tab(s), Oral, qAM, 0 Refill(s) Start Date: 02/24/20 Status: Ordered oxyCODONE hydrochloride 5 mg oral tablet (18 sources) Opioid Agonist Start: 02-03-2023 oxyCODONE 5 mg oral tablet ( IMMEDIATE release ) Dose : 5 mg = 1 tab(s), Oral, q6h, PRN for pain, # 12 tab(s), 0 Refill(s), 140 Start Date: 02/03/23 Status: Ordered Quantity: 12.0 Unit: tab(s) Repeat number: 1 Pen needles (10 sources) Start: 02-24-2021 Pen needles Se e Instructions, #100 Re: BID dosing, # 1 EA, 0 Refill(s), Pharmacy: [facility], Diabetes mellitus type 2, 175.3, cm, 02/18/21 6:13:00 EDT, Height, 141.5, kg, 02/18/21 6:13:00 EDT, Dosing Weight Start Date: 02/24/21 Status: Ordered predniSONE 20 mg oral tablet (5 sources) Start: 06-23-2023 End: 06-27-2023 predniSONE 20 mg oral tablet Dose : 60 mg = 3 tab(s), Oral, qDay, X 4 day(s), # 12 tab(s), 0 Refill(s), 06/27/23 6:38:00 PM EDT Start Date: 06/23/23 Stop Date: 06/27/23 Status: Ordered Start: 07-21-2021 End: 07-26-2021 predniSONE 50 mg oral tablet Dose : 50 mg = 1 tab(s), Oral, qDayM, # 5 tab(s), 0 Refill(s), Acute exacerbation of COPD Bronchitis Start Date: 07/21/21 Stop Date: 07/26/21 Status: Ordered pregabalin 50 mg oral capsul e (20 sources) Start: 06-07-2024 pregabalin 50 mg oral capsule See Instructions, 1 cap qAM, 1 cap @ noon, 2 caps qHS, # 120 cap(s), 2 Refill(s), Pharmacy: [place] [id number], Diabetic neuropathy, 174.5, cm, 05/17/24 13:33:00 EST, Height, 128, kg, 05/17/24 13:33:00 EST, Dosing Weight Start Date: 06/07/24 Status: Ordered Quantity: 120.0 Unit: cap(s) Repeat number: 3 Indications: Type 2 diabetes mellitus with diabetic neuropathy, unspecified; Start: 09-20-2022 pregabalin Dos e : 50 mg =, Oral, TID, 0 Refill(s), 143.6 Start Date: 09/20/22 Status: Ordered Repeat number: 1 Start: 09-20-2022 pregabalin Dos e : 50 mg =, Oral, TID, 0 Refill(s), 143.6 Start Date: 09/20/22 Status: Ordered Start: 07-05-2022 Lyrica 50 mg o ral capsule Dose : 50 mg = 1 cap(s), Oral, TID, # 90 cap(s), 0 Refill(s), Neuropathy, 143.6 Start Date: 07/05/22 Status: Ordered SITagliptin 50 mg oral tablet (20 sources) Dipeptidyl Peptidase 4 Inhibitor Start: 09-20-2022 Januvia 50 mg oral tablet Dose : 50 mg = 1 tab(s), Oral, qDay, # 30 tab(s), 0 Refill(s) Start Date: 09/20/22 Status: Ordered Start: 02-24-2020 Januvia 50 mg oral tablet Dose : 50 mg = 1 tab(s), Oral, qAM, # 30 tab(s), 0 Refill(s) Start Date: 02/24/20 Status: Ordered sulfamethoxazole 800 mg / trimethoprim 160 mg oral tablet (1 source) Dihydrofolate Reductase Inhibitor Antibacterial, Sulfonamide Antimicrobial Start: 02-02-2021 End: 02-09-2021 take 1 tablet by mouth twice daily sulfamethoxazole-trimethoprim 800 mg-160 mg oral tablet Dose = 1 tab(s), Oral, BID, # 14 tab(s), 0 Refill(s), 140.9 Start Date: 02/02/21 Stop Date: 02/09/21 Status: Ordered Therems M oral tablet (20 sources) Start: 02-02-2021 take 1 tablet by mouth at lunch Therems M oral tablet Dose = 1 tab(s), Oral, with lunch, 0 Refill(s) Start Date: 02/02/21 Status: Ordered Repeat number: 1 Start: 02-02-2021 take 1 tablet by mouth at [facility] Therems M oral tablet Dose = 1 tab(s), Oral, with lunch, 0 Refill(s) Start Date: 02/02/21 Status: Ordered valsartan 80 mg oral tablet (2 sources) Angiotensin 2 Receptor Erik Start: 07-05-2022 valsartan 80 mg oral tablet Dose : 80 mg = 1 tab(s), Oral, Daily, # 30 tab(s), 0 Refill(s), other reason (Rx) Start Date: 07/05/22 Status: Ordered vancomycin 2 g intravenous injection (3 sources) Start: 02-10-2024 vancomycin 2 g intravenous injection IV Piggyback, qDay, 0 Refill(s), 134.1 Start Date: 02/10/24 Status: Ordered vancomycin 2000 MG Injection (10 sources) Start: 02-10-2024 vancomycin 2 g intravenous injection IV Piggyback, qDay, 0 Refill(s), 134.1 Start Date: 02/10/24 Status: Ordered Repeat number: 1 Start: 02-10-2024 vancomycin 2 g intravenous injection IV Piggyback, qDay, 0 Refill(s), 134.1 Start Date: 02/10/24 Status: Ordered vibegron 75 MG Oral Tablet [Gemtesa] (18 sources) Start: 02-03-2023 Gemtesa 75 mg oral tablet Dose : 75 mg = 1 tab(s), Oral, qDay, # 30 tab(s), 0 Refill(s) Start Date: 02/03/23 Status: Ordered Quantity: 30.0 Unit: tab(s) Repeat number: 1 Start: 02-03-2023 Gemtesa 75 mg oral tablet Dose : 75 mg = 1 tab(s), Oral, qDay, # 30 tab(s), 0 Refill(s) Start Date: 02/03/23 Status: Ordered Vitamin D3 1250 mcg (50,000 intl units) oral capsule (16 sources) Start: 05-23-2024 Vitamin D3 125 0 mcg (50,000 intl units) oral capsule Dose : 1,250 mcg = 1 cap(s), Oral, qWeek, # 12 cap(s), 1 Refill(s), Pharmacy: [place] [id number], 174.5, cm, 05/17/24 13:33:00 EST, Height, kg, 05/17/24 13:33:00 EST, Dosing Weight Start Date: 05/23/24 Status: Ordered Quantity: 12.0 Unit: cap(s) Repeat number: 2 Start: 12-13-2023 Vitamin D3 125 0 mcg (50,000 intl units) oral capsule Dose : 1,250 mcg = 1 cap(s), Oral, qWeek, # 12 cap(s), 1 Refill(s), Pharmacy: [place] [id number], 175, cm, 12/13/23 14:55:00 EDT, Height, kg, 12/13/23 14:55:00 EDT, Dosing Weight Start Date: 12/13/23 Status: Ordered Quantity: 12.0 Unit: cap(s) Repeat number: 2 Start: 12-13-2023 Vitamin D3 125 0 mcg (50,000 intl units) oral capsule Dose : 1,250 mcg = 1 cap(s), Oral, qWeek, # 12 cap(s), 1 Refill(s), Pharmacy: [place] [id number], 175, cm, 12/13/23 14:55:00 EDT, Height, kg, 12/13/23 14:55:00 EDT, Dosing Weight Start Date: 12/13/23 Status: Ordered Completed/Discontinued Medications Medication Drug Class(es) Dates Sig (Normalized) Sig (Original) 0.25 MG, 0.5 MG Dose 3 ML semaglutide 0.68 MG/ML Pen Injector [Ozempic] (1 source) Start: 04-19-2023 inject 0.5 mg by subcutaneous injection every week Ozempic 2 mg/3 mL (0.25 mg or 0.5 mg dose) subcutaneous solution Dose : 0.5 mg =, Subcutaneous, qWeek, rotate injection sites, # 1 EA, 2 Refill(s), Pharmacy: [facility] [id number], 175, cm, 02/17/23 14:16:00 EDT, Height, kg, 02/17/23 14:16:00 EDT, Dosing Weight Start Date: 04/19/23 Status: Ordered anastrozole 1 mg oral tablet (10 sources) Aromatase Inhibitor Start: 01-27-2016 End: 12-18-2018 take 1 mg by mouth once daily Anastrozole Discontinued 1 MG PO DAILY 90 90 September 19, 2018 12:56pm December 17, 2018 11:08pm ARIPiprazole 2 mg oral tablet (5 sources) Atypical Antipsychotic Start: 01-27-2016 End: 04-30-2020 take 5 mg by mouth once daily Aripiprazole Discontinued 5 MG PO DAILY January 26, 2016 11:00pm April 30, 2020 11:47am baclofen 10 mg oral tablet (5 sources) gamma-Aminobutyric Acid-ergic Agonist Start: 06-19-2020 End: 06-23-2020 take 1 tablet by mouth three times daily Baclofen Discontinued 1 TABLET PO THREE TIMES A DAY June 19, 2020 12:00am June 23, 2020 9:42am cefepime (13 sources) Cephalosporin Antibacterial Start: 02-10-2024 Maxipime Dose : 2 gram(s) = 20 mL, IV Push, q12h, 0 Refill(s), 134.1 Start Date: 02/10/24 Status: Ordered Repeat number: 1 Start: 02-10-2024 Maxipime Dose : 2 gram(s) = 20 mL, IV Push, q12h, 0 Refill(s), 134.1 Start Date: 02/10/24 Status: Ordered gabapentin 600 mg oral tablet (15 sources) Anti-epileptic Agent Start: 08-11-2020 End: 10-30-2020 take 300 mg by mouth twice daily Gabapentin Discontinued 300 MG PO TWICE A DAY August 11, 2020 7:57am October 30, 2020 9:50am Start: 07-03-2020 End: 08-11-2020 take 600 mg by mouth three times daily at mealtime Gabapentin Discontinued 600 MG PO 3 TIMES DAILY WITH MEALS July 02, 2020 11:00pm August 11, 2020 7:57am Start: 01-30-2019 End: 07-03-2020 take 800 mg by mouth three times daily Gabapentin Discontinued 800 MG PO THREE TIMES A DAY January 29, 2019 11:00pm July 03, 2020 10:06am indomethacin 25 mg oral capsule (5 sources) Nonsteroidal Anti-inflammatory Drug Start: 01-30-2019 End: 04-30-2020 Indomethacin Discontinued 50 MG PO NEEDED January 29, 2019 11:00pm April 30, 2020 11:48am LORazepam 1 mg oral tablet (5 sources) Benzodiazepine Start: 06-19-2020 End: 06-23-2020 take 1 mg by mouth twice daily Lorazepam Discontinued 1 MG PO TWICE A DAY June 19, 2020 12:00am June 23, 2020 9:53am metoprolol tartrate 25 mg oral tablet (5 sources) beta-Adrenergic Erik Start: 07-12-2013 End: 07-21-2017 take 12.5 mg by mouth twice daily Metoprolol Tartrate Discontinued 12.5 MG PO TWICE A DAY July 11, 2013 11:00pm July 21, 2017 12:07pm naproxen 500 mg oral tablet (5 sources) Nonsteroidal Anti-inflammatory Drug Start: 06-19-2020 End: 06-23-2020 take 500 mg by mouth twice daily Naproxen Discontinued 500 MG PO TWICE A DAY June 19, 2020 12:00am June 23, 2020 9:43am prochlorperazine 5 mg oral tablet (5 sources) Phenothiazine Start: 06-30-2020 End: 07-03-2020 take 5 mg by mouth every six hours as needed Prochlorperazine Maleate Discontinued 5 MG PO EVERY 6 HOURS NEEDED June 30, 2020 12:45pm July 03, 2020 10:06am raNITIdine 150 mg oral tablet (5 sources) Histamine-2 Receptor Antagonist Start: 06-19-2020 End: 06-23-2020 take 1 tablet by mouth once daily Ranitidine (Zantac) 150 MG tablet Discontinued 150 MG PO DAILY June 19, 2020 12:00am June 23, 2020 9:44am Problems Active Problems Problem Classification Problem Date Documented Da te Episodic/Chronic Acute and unspecified renal failure (6 sources) Injury of kidney; Translations: [Acute kidney failure, unspecified] Onset: 3 Episodic Cancer of breast (10 sources) Malignant tumor of breast ; Translations: [Malignant neoplasm of unspecified site of left female breast] Chronic Cancer; other and unspecified primary (1 source) History of malignant carcinoid tumor of bronchus; Translations: [Personal history of malignant carcinoid tumor of bronchus and lung] Episodic Chronic kidney disease (19 sources) Chronic kidney disease stage 3; Translations: [Chronic kidney disease, stage 3 unspecified] Onset: 1 Chronic Chronic kidney disease (1 source) Chronic kidney disease; Translations: [Chronic kidney disease, stage 3a] Onset: 5 Chronic obstructive pulmonary disease and bronchiectasis (20 sources) Chronic obstructive lung disease; Translations: [Chronic obstructive pulmonary disease, unspecified] Onset: 1 08-27-2013 Chronic Chronic obstructive pulmonary disease and bronchiectasis (1 source) Bronchitis; Translations: [Bronchitis, not specified as acute or chronic] Onset: 2 Episodic Conduction disorders (5 sources) Left bundle branch block; Translations: [Left bundle-branch block, unspecified] Chronic Developmental disorders (20 sources) Stuttering 11-09-2018 Chronic Diabetes mellitus with complications (2 sources) Chronic kidney disease due to type 2 diabetes mellitus; Translations: [Type 2 diabetes mellitus with diabetic chronic kidney disease] Chronic Diabetes mellitus without complication (20 sources) Type 2 diabetes mellitus; Translations: [Type 2 diabetes mellitus without complication] Onset: 1 02-19-2017 Chronic Disorders of lipid metabolism (20 sources) Hypercholesterolemia; Translations: [Pure hypercholesterolemia] Onset: 1 09-14-2018 Chronic Disorders of teeth and jaw (5 sources) Jaw pain; Translations: [Jaw pain] Episodic E Codes: Fall (1 source) Unspecified fall, initial encounter; Translations: [Unspecified fall, initial encounter] Onset: 3 Episodic Esophageal disorders (20 sources) Gastroesophageal reflux disease; Translations: [Gastroesophageal reflux disease without esophagitis] Onset: 1 09-14-2018 Chronic Essential hypertension (20 sources) Hypertensive disorder; Translations: [Essential hypertension] Onset: 1 08-27-2013 Chronic Fever of unknown origin (1 source) Fever; Translations: [Fever, unspecified] Onset: 3 Episodic Fluid and electrolyte disorders (20 sources) Acidosis; Translations: [Acidosis, unspecified] Onset: 3 Episodic Genitourinary symptoms and ill-defined conditions (20 sources) Incontinence; Translations: [Unspecified urinary incontinence] Onset: 1 09-14-2018 Chronic Hypertension with complications and secondary hypertension (2 sources) Chronic kidney disease due to hypertension; Translations: [Hypertensive chronic kidney disease with stage 1 through stage 4 chronic kidney disease, or unspecified chronic kidney disease] Onset: 5 Chronic Immunizations and screening for infectious disease (16 sources) Autoantibody screening for celiac disease positive 07-07-2023 Episodic Infective arthritis and osteomyelitis (except that caused by tuberculosis or sexually transmitted disease) (8 sources) Osteomyelitis of vertebra; Translations: [Osteomyelitis of vertebra, lumbar region] Onset: 4 Chronic Malaise and fatigue (2 sources) Asthenia; Translations: [Weakness] Onset: 3 Episodic Menopausal disorders (5 sources) Postmenopausal bleeding; Translations: [Postmenopausal bleeding] Chronic Mood disorders (20 sources) Depression; Translations: [Depressive disorder] Onset: 1 08-27-2013 Chronic Mood disorders (1 source) Mood disorders; Translations: [Depression, unspecified] Onset: 5 Mycoses (1 source) Candidiasis of mouth; Translations: [Candidal stomatitis] Onset: 3 Episodic Neoplasms of unspecified nature or uncertain behavior (9 sources) Monoclonal gammopathy of uncertain significance; Translations: [Monoclonal gammopathy] Onset: 4 Chronic Neoplasms of unspecified nature or uncertain behavior (20 sources) Carcinoid tumor of lung; Translations: [Neoplasm of endocrine gland] 03-09-2021 Episodic Nutritional deficiencies (1 source) Vitamin D deficiency, unspecified; Translations: [Vitamin D deficiency, unspecified] Onset: 5 Chronic Osteoarthritis (20 sources) Osteoarthritis; Translations: [Unspecified osteoarthritis, unspecified site] Onset: 3 Chronic Other and ill-defined heart disease (1 source) Other ill-defined heart diseases; Translations: [Other ill-defined heart diseases] Onset: 5 Chronic Other and unspecified benign neoplasm (2 sources) Benign neuroendocrine tumor; Translations: [Benign carcinoid tumor of the bronchus and lung] Onset: 1 Episodic Other and unspecified benign neoplasm (5 sources) Carcinoid tumor; Translations: [Benign carcinoid tumor of unspecified site] Episodic Other and unspecified benign neoplasm (3 sources) Benign carcinoid tumor of unspecified site; Translations: [Benign carcinoid tumor of unknown primary site] Episodic Other connective tissue disease (1 source) Hand pain; Translations: [Pain in unspecified hand] Onset: 3 Episodic Other gastrointestinal disorders (20 sources) Irritable bowel syndrome; Translations: [Irritable bowel syndrome without diarrhea] Onset: 1 08-27-2013 Chronic Other hematologic conditions (5 sources) Hyperglobulinemia; Translations: [Abnormality of globulin] Episodic Other lower respiratory disease (5 sources) Dyspnea; Translations: [Shortness of breath] Episodic Other lower respiratory disease (5 sources) Multiple nodules of lung; Translations: [Other nonspecific abnormal finding of lung field] Episodic Other lower respiratory disease (2 sources) Dyspnea, unspecified; Translations: [Dyspnea, unspecified] Onset: 5 Episodic Other nervous system disorders (1 source) Polyneuropathy; Translations: [Polyneuropathy, unspecified] Onset: 3 Chronic Other nutritional; endocrine; and metabolic disorders (1 source) Hypomagnesemia; Translations: [Hypomagnesemia] Onset: 3 Chronic Other nutritional; endocrine; and metabolic disorders (19 sources) Morbid obesity; Translations: [Morbid (severe) obesity due to excess calories] 02-06-2023 Chronic Other nutritional; endocrine; and metabolic disorders (1 source) Body mass index 40+ - severely obese; Translations: [Body mass index (BMI) 40.0-44.9, adult] Chronic Other nutritional; endocrine; and metabolic disorders (1 source) Morbid (severe) obesity due to excess calories; Translations: [Morbid (severe) obesity due to excess calories] Onset: 5 Chronic Pneumonia (except that caused by tuberculosis or sexually transmitted disease) (2 sources) Pneumonia; Translations: [Pneumonia, unspecified organism] Onset: 2 Episodic Residual codes; unclassified (20 sources) Obstructive sleep apnea syndrome; Translations: [Obstructive sleep apnea (adult) (pediatric)] Onset: 3 Chronic Residual codes; unclassified (1 source) Obstructive sleep apnea (adult) (pediatric); Translations: [Obstructive sleep apnea (adult) (pediatric)] Onset: 5 Chronic Residual codes; unclassified (1 source) Absence of lung; Translations: [Acquired absence of lung [part of]] Episodic Spondylosis; intervertebral disc disorders; other back problems (4 sources) Discitis; Translations: [Discitis, unspecified, site unspecified] Onset: 4 Chronic Sprains and strains (1 source) Strain of muscle and/or tendon of lower leg; Translations: [Strain of other muscle(s) and tendon(s) of posterior muscle group at lower leg level, unspecified leg, initial encounter] Onset: 2 Episodic Substance-related disorders (2 sources) Nicotine dependence, cigarettes, uncomplicated; Translations: [Nicotine dependence, cigarettes, uncomplicated] Onset: 5 Chronic Past or Other Problems Problem Classification Problem Date Documented Da te Episodic/Chronic Abdominal pain (5 sources) Abdominal pain; Translations: [Unspecified abdominal pain] Onset: 01-03-2024 Episodic Cancer of breast (10 sources) History of malignant neoplasm of breast; Translations: [Personal history of malignant neoplasm of breast] Onset: 11-22-2023 Episodic Gastrointestinal hemorrhage (1 source) Melena; Translations: [Melena] Onset: 11-22-2023 Episodic Other aftercare (3 sources) Encounter for adjustment and management of vascular access device; Translations: [Encounter for adjustment and management of vascular access device] Onset: 11-22-2023 Episodic Other and unspecified benign neoplasm (1 source) Benign carcinoid tumor of the bronchus and lung; Translations: [Benign carcinoid tumor of the bronchus and lung] Onset: 11-22-2023 Episodic Other screening for suspected conditions (not mental disorders or infectious disease) (6 sources) Other specified abnormal findings of blood chemistry; Translations: [Elevated liver function tests] Onset: 11-22-2023 Episodic Spondylosis; intervertebral disc disorders; other back problems (4 sources) Sciatica; Translations: [Sciatica, unspecified side] Onset: 10-06-2023 Episodic Unclassified (5 sources) Age more than 65 years; Translations: [Over 65 years old] Viral infection (10 sources) COVID-19; Translations: [Pneumonia due to COVID-19 virus] Onset: 04-21-2021 Episodic Viral infection (1 source) Disease caused by 2019-nCoV; Translations: [COVID-19] Onset: 04-23-2021 Results Test Name Value Interpretation Reference Range Facility 6 Minute Walk Teston 025 6 Minute Walk Test [facility] Pulmonary Services/Neurology [address] [place] [address] MR#: [id number] Acct: [id number] Name: GLORIA RODRIGUEZ Rep #: [id number] : 1955 68 From: Mj Mc DO Referring Dr: Amelie Ruby AIR BRAKE MAN AIR BRAKE MAN-C Status: REG CLI Location: PSN Date: Sex: F C PSN 6 Minute Walk Test 6 Minute Walk Test 6 Minute Walk Test: 6 Minute Walk Test PSN:6-Minute Walk Test Start: 09/20/24 14:16 Freq: Status: Active Protocol: [id number] Document 09/20/24 14:16 [facility] (Rec: 09/20/24 14:21 [facility] [id number]) 6 Minute Walk Test Date Performed 09/20/24 Time Performed 13:45 Height 5 ft 9 in Weight: 274 lb Weight in Pounds 274.[address]: Amelie Ruby AIR BRAKE MAN Assistive device Walker used: Pre-test Oxygen Delivery Room Air Method Pulse Ox (%) 95 Pulse Rate (60-100 102 H beats/min) Dyspnea Ashley Scale ( 0 0-10) Exertion Ashley Scale 7 (6-20) 1st minute Oxygen Delivery Room Air Method Pulse Ox (%) 96 Pulse Rate (60-100 111 H beats/min) Dyspnea Ashley Scale ( 2 0-10) Exertion Ashley Scale 9 (6-20) Number of Rests 0 Taken Reported Symptoms Increased Work of Breathing 2nd minute Oxygen Delivery Room Air Method Pulse Ox (%) 97 Pulse Rate (60-100 112 H beats/min) Dyspnea Ashley Scale ( 4 0-10) Exertion Ashley Scale 11 (6-20) Number of Rests 1 Taken Reported Symptoms Increased Work of Breathing 3rd minute Oxygen Delivery Room Air Method Pulse Ox (%) 98 Pulse Rate (60-100 110 H beats/min) Dyspnea Ashley Scale ( 3 0-10) Exertion Ashley Scale 9 (6-20) Number of Rests 1 Taken Reported Symptoms Increased Work of Breathing 4th minute Oxygen Delivery Room Air Method Pulse Ox (%) 97 Pulse Rate (60-100 107 H beats/min) Dyspnea Ashley Scale ( 2 0-10) Exertion Ashley Scale 9 (6-20) Number of Rests 1 Taken Reported Symptoms Increased Work of Breathing 5th minute Oxygen Delivery Room Air Method Pulse Ox (%) 96 Pulse Rate (60-100 112 H beats/min) Dyspnea Ashley Scale ( 3 0-10) Number of Rests 0 Taken Reported Symptoms Increased Work of Breathing 6th minute Oxygen Delivery Room Air Method Pulse Ox (%) 96 Pulse Rate (60-100 109 H beats/min) Dyspnea Ashley Scale ( 4 0-10) Exertion Ashley Scale 12 (6-20) Number of Rests 0 Taken Reported Symptoms Increased Work of Breathing Post-test Oxygen Delivery Room Air Method Pulse Ox (%) 96 Pulse Rate (60-100 106 H beats/min) Dyspnea Ashley Scale ( 0 0-10) Exertion Ashley Scale 8 (6-20) Full Laps Walked 4 Partial Lap, Number 0 of Tiles Walked Total Distance 236 Walked (ft) 09/20/24 14:19 Cardiopulmonary Services by Tania Bella PATIENT ARRIVED FOR WALK TEST IN WHEELCHAIR. SHE SAID SHE HAS CHRONIC BACK PAIN AND LEG WEAKNESS. SHE PUSHED W/C DURING TESTING FOR STABILITY. SHE STOPPED TO REST FOR 3 MINUTES DURING TESTING DUE TO INCREASED WOB AND BACK PAIN. SHE SAID SHE IS MOSTLY FLAT AT HOME AND WALKS LITTLE POSSIBLE D/T BACK PAIN. TESTING DONE ON ROOM AIR. SHE AMBULATED 236FT. Initialized on 09/20/24 14:19 - END OF NOTE Interpretation Interpretation: The patient ambulated 236 feet over the course of 6 minutes beginning on room air with the use of a walker. Pretesting oxygen saturation was noted to be 95% on room air. With ambulation, the loretta oxygen saturation was 96%. Although there was evidence of impaired walk distance, there was no significant exertional oxygen desaturation. Recommendations Recommendations: There is no indication for the use of supplemental oxygen at this time. 09/21/24 1303 Date Mj Mc DO CC: Date Dictated: 09/21/24 1302 Date Transcribed: 09/21/241301 Cube Machine Tender: Dr. Mj Mc DO Signed Normal [facility] Pulmonary Visit Reporton Pulmonary Visit Report [facility] [place] [address] [place] [address] OFFICE VISIT Date of Service: 08/22/24 MR#: [id number] Acct: [id number] Name: GLORIA RODRIGUEZ Óscar Rep #: [id number] : 1955 Provider: ADAM Ruby Age/Sex: 68/F Location: [facility] Status: Signed Assessment and Plan Assessment and Plan (1) MARGARETTE (obstructive sleep apnea): Status: Chronic Plan: Deteriorated. She has not recently been compliant with PAP therapy. I did instruct her that part of optimizing her for surgical clearance would be to make sure that she is utilizing and benefiting from her PAP device. She states I keep forgetting that I have that. I instructed her very specifically to use it with any time spent sleeping between now and her follow-up visit so that I may review a compliance report. She conveys understanding. No indication for a titration study at this time. Follow up in 6 weeks to evaluate her response to therapy. (2) COPD (chronic obstructive pulmonary disease): Status: Chronic Qualifiers: COPD type: emphysema Emphysema type: centrilobular Qualified Code(s): J43.2 - Centrilobular emphysema Plan: Repeating a PFT and a walking oximetry. Return to the office once test results are available for review. Recommendations will be made to optimize the patient so that she is appropriate for surgery. (3) Smoking greater than 20 pack years: Status: Chronic Comment: quit 2023 Plan: She has appropriate for LDCT. She continues to smoke rarely. She admits to smoking cigarettes on December 27 because that is when my niece . She also admits to occasional smoking marijuana. Ordered an LDCT and will discuss test results at her follow-up visit. (4) Morbid (severe) obesity due to excess calories: Status: Chronic Plan: Complicates exam, plan, care and prognosis. Encourage weight loss. (5) Depression: Status: Chronic Qualifiers: Depression Type: unspecified Qualified Code(s): F32.A - Depression, unspecified Plan: Complicates exam, plan, care and prognosis. May be impacting the patient's ability to be compliant with recommended therapies. (6) Diastolic dysfunction: Status: Chronic Plan: Stage I diastolic dysfunction noted on echocardiogram from 2019. Given that the patient has not been compliant with PAP therapy, she is at risk for disease progression. Repeating an echocardiogram so that I may may be able to appropriately assess her risk for surgery and make recommendations. Orders: Orders PFT Complete - DLCO, Spirometry b/a bronchodilators, lung volumes 08/24/24 J43.2 - Centrilobular emphysema Simple Pulmonary Exercise Test 09/20/24 J43.2 - Centrilobular emphysema Low Dose CT Lung Screening Today F17.200 - Nicotine dependence, unspecified, uncomplicated, F17.210 - Nicotine dependence, cigarettes, uncomplicated Echo, Limited Study Today R06.00 - Dyspnea, unspecified Plan Details Additional Comments: This note was generated with [employer] dictation software. It may contain incorrect words, spelling, and punctuation that were not noted in checking the note before signing. Follow Up: 6 Weeks HPI Surgery clearance Chief Complaint: Surgical clearance HPI Comments Details: This patient presents to the office today for follow-up of her obstructive sleep apnea. She is in a wheelchair. She has not recently been seen in the ED or urgent care for any respiratory illness. She has not required any antibiotics or prednisone for any breathing problems. She quit smoking years ago. She does have shortness of breath on exertion. She has an occasional dry cough. She has occasional wheezing but denies any chest tightness, chest pain or palpitations. She denies any fever, chills or body aches. The patient admits that she has not been compliant with PAP therapy. No compliance report available. She has not needed to utilize albuterol HFA or in the nebulizer. She has not needed DuoNebs. She continues compliance with Lasix 20 mg twice daily. She is not currently on supplemental oxygen. S Intake Vital Signs 03/20/24 14:17 08/22/24 08:32 Height 5 ft 9 in 5 ft 9 in Weight: 294 lb 274 lb BMI 43.4 40.4 BP 108/61 83/56 L Blood Pressure Location Lt radial Lt radial Position Sitting Sitting Respiration 18 18 Pulse 97 88 Pulse Source NIBP Monitor Temp 97.4 F L Temperature Source Temporal Artery Pulse Oximetry (%) 97 Oxygen Delivery Method room air Intake Visit Reasons: Surgery clearance Chief Complaint: F/U Advertising Operations Manager Required: No Accompanied by: Self Allergies codeine Allergy (Severe, Verified 08/22/24 11:04) MEMORY LOSS egg Allergy (Severe, Verified 08/22/24 11:04) FLU SYMTOPMS, WEEKNESS morphine Allergy (Severe, Verified 08/22/24 11:04) CARDIAC ARREST venom-honey bee (bee venom (ho (more content not included)... Normal [facility] .Auto Diffon 06-22-2024 Basophil, Absolute 0.0 10 3/mcL Normal 0.0-0.2 [facility] Comment on above: Performed By: #### C NATI, EB, ANNT, ANEU, GFR, CMP, ESR #### [id number] [place], [place] [address] Basophils/100 WBC (Bld) 0.4 % Normal 0.0-2.5 [facility] Comment on above: Performed By: #### C NATI, ANN PARSONT, ANEU, GFR, CMP, ESR #### [id number] [place], [place] [address] Eosinophil, Absolute 0.1 10 3/mcL Normal 0.0-0.7 [facility] Comment on above: Performed By: #### C NATI, CHAR PARSON, ANEU, GFR, CMP, ESR #### [id number] [place], [place] [address] Eosinophils/100 WBC (Bld) 1.6 % Normal 0.0-7.0 [facility] Comment on above: Performed By: #### C BC, ADIFF, VANCT, ANEU, GFR, CMP, ESR #### [address] [address] Lymphocyte, Absolute 1.3 10 3/mcL Normal 0.9-4.3 [facility] Comment on above: Performed By: #### C BC, ADIFF, VANCT, ANEU, GFR, CMP, ESR #### [address] [address] Lymphocytes/100 WBC (Bld) 20.3 % Normal 20.0-40.0 [facility] Comment on above: Performed By: #### C BC, ADIFF, VANCT, ANEU, GFR, CMP, ESR #### [address] [address] Monocyte, Absolute 0.7 10 3/mcL Normal 0.1-1.4 [facility] Comment on above: Performed By: #### C BC, ADIFF, VANCT, ANEU, GFR, CMP, ESR #### [address] [address] Monocytes/100 WBC (Bld) 10.9 % Normal 2.0-13.0 [facility] Comment on above: Performed By: #### C BC, ADIFF, VANCT, ANEU, GFR, CMP, ESR #### [address] [address] Neutrophils/100 WBC (Bld) 66.8 % Normal 50.0-75.0 [facility] Comment on above: Performed By: #### C BC, ADIFF, VANCT, ANEU, GFR, CMP, ESR #### [address] [address] .GFRon 06-22-2024 Estimated Glomerular Filtration Rate 36 ml/min/1.73sqm Normal [facility] Comment on above: Result Comment: Stages of Chronic Kidney Disease (CKD) Stage Description eGFR(ml/min/1.73 sq.m.) CKD 1 Normal kidney function or >=90 normal kindney function with possible kidney damage (ex. Proteinuria) CKD 2 Kidney damage with mild loss 60-89 of kidney function CKD 3a Mild to moderate loss of kidney 45-59 function CKD 3b Moderate to severe loss of 30-44 of kindey function CKD 4 Severe loss of kidney function 15-29 CKD 5 Kidney failure <15 Note: ( live 05/22/2024) the eGFR calculation was updated to the 2020 CKD-EPI creatinine equation without a race factor to calculate the eGFR results. Performed By: #### C BC, ADIFF, VANCT, ANEU, GFR, CMP, ESR #### [id number] [place], [place] [address] Estimated Glomerular Filtration Rate 38 ml/min/1.73sqm Normal [facility] Comment on above: Result Comment: Stages of Chronic Kidney Disease (CKD) Stage Description eGFR(ml/min/1.73 sq.m.) CKD 1 Normal kidney function or >=90 normal kindney function with possible kidney damage (ex. Proteinuria) CKD 2 Kidney damage with mild loss 60-89 of kidney function CKD 3a Mild to moderate loss of kidney 45-59 function CKD 3b Moderate to severe loss of 30-44 of kindey function CKD 4 Severe loss of kidney function 15-29 CKD 5 Kidney failure <15 Note: ( live 05/22/2024) the eGFR calculation was updated to the 2020 CKD-EPI creatinine equation without a race factor to calculate the eGFR results. Performed By: #### C BC, ADIFF, VANCT, ANEU, GFR, CMP, ESR #### [id number] [place], [place] [address] .NEUABSon 06-22-2024 Neutrophil, Absolute 4.1 10 3/mcL Normal 2.3-8.1 [facility] Comment on above: Performed By: #### C BC, ADIFF, VANCT, ANEU, GFR, CMP, ESR #### [id number] [place], [place] [address] A1Con 06-22-2024 Glucose [Mass/Vol] 105 mg/dL Normal [facility] Comment on above: Result Comment: Ly mated Average Glucose calculated by equation ((28.7xA1C)-46.7) Estimated average glucose (eAG) is a calculated value from Hemoglobin A1C and is truck sales representative of the average blood glucose level in the last 2-3 month period. Normal range: less than 114 mg/dL Performed By: #### C BC, ADIFF, VANCT, ANEU, GFR, CMP, ESR #### [address] [address] HbA1c (Bld) [Mass fraction] 5.3 % Normal 4.3-6.4 [facility] Comment on above: Performed By: #### C BC, ADIFF, VANCT, ANEU, GFR, CMP, ESR #### [address] [address] CBCon 06-22-2024 Erythrocyte distribution width (RBC) [Ratio] 15.7 % High 11.5-15.5 [facility] Comment on above: Performed By: #### C BC, ADIFF, VANCT, ANEU, GFR, CMP, ESR #### [address] [address] Hematocrit (Bld) [Volume fraction] 35.3 % Normal 34.0-46.0 [facility] Comment on above: Performed By: #### C BC, ADIFF, VANCT, ANEU, GFR, CMP, ESR #### [address] [place] [address] Hgb 12.3 G/dL Normal 12.0-16.0 [facility] Comment on above: Performed By: #### C BC, ADIFF, VANCT, ANEU, GFR, CMP, ESR #### [address] [place] [address] MCH (RBC) [Entitic mass] 31.9 pg Normal 27.0-33.0 [facility] Comment on above: Performed By: #### C BC, ADIFF, VANCT, ANEU, GFR, CMP, ESR #### [address] [place] [address] MCHC 34.8 G/dL Normal 32.0-36.0 [facility] Comment on above: Performed By: #### C BC, ADIFF, VANCT, ANEU, GFR, CMP, ESR #### [address] [place] [address] MCV (RBC) [Entitic vol] 91.5 fL Normal 80.0-99.0 [facility] Comment on above: Performed By: #### C BC, ADIFF, VANCT, ANEU, GFR, CMP, ESR #### [address] [address] Platelet 135 10 3/mcL Low 150-450 [facility] Comment on above: Performed By: #### C BC, ADIFF, VANCT, ANEU, GFR, CMP, ESR #### [address] [address] Platelet mean volume (Bld) [Entitic vol] 8.8 fL Normal 6.6-10.5 [facility] Comment on above: Performed By: #### C BC, ADIFF, VANCT, ANEU, GFR, CMP, ESR #### [address] [address] RBC 3.86 10 6/mcL Low 4.10-5.30 [facility] Comment on above: Performed By: #### C BC, ADIFF, VANCT, ANEU, GFR, CMP, ESR #### [address] [address] WBC 6.2 10 3/mcL Normal 4.5-10.8 [facility] [facility] Comment on above: Performed By: #### C BC, ADIFF, VANCT, ANEU, GFR, CMP, ESR #### [address] [address] CMPon 06-22-2024 Albumin Level 2.9 G/dL Low 3.4-4.8 [facility] Comment on above: Performed By: #### C BC, ADIFF, VANCT, ANEU, GFR, CMP, ESR #### [address] [address] Albumin/Globulin [Mass ratio] 0.7 {ratio} Low 1.1-2.5 [facility] Comment on above: Performed By: #### C BC, ADIFF, VANCT, ANEU, GFR, CMP, ESR #### [address] [address] ALP [Catalytic activity/Vol] 95 U/L Normal 40-135 [facility] Comment on above: Performed By: #### C BC, ADIFF, VANCT, ANEU, GFR, CMP, ESR #### [address] [address] ALT [Catalytic activity/Vol] 37 U/L Normal 14-59 [facility] Comment on above: Performed By: #### C BC, ADIFF, VANCT, ANEU, GFR, CMP, ESR #### [address] [address] AST [Catalytic activity/Vol] 49 U/L High 10-40 [facility] Comment on above: Performed By: #### C BC, ADIFF, VANCT, ANEU, GFR, CMP, ESR #### [address] [address] Bili Total 0.5 mg/dL Normal 0.2-1.0 [facility] Comment on above: Result Comment: Use of this assay is not recommended for patients undergoing treatment with eltrombopag due to the potential for falsely elevated results. Performed By: #### C BC, ADIFF, VANCT, ANEU, GFR, CMP, ESR #### [address] [address] BUN/Creatinine Ratio 22 ratio Normal 7-27 [facility] Comment on above: Performed By: #### C BC, ADIFF, VANCT, ANEU, GFR, CMP, ESR #### [address] [address] Calcium [Mass/Vol] 10.6 mg/dL High 8.4-10.2 [facility] Comment on above: Performed By: #### C BC, ADIFF, VANCT, ANEU, GFR, CMP, ESR #### [address] [address] Chloride [Moles/Vol] 97 mmol/L Low 98-107 [facility] Comment on above: Performed By: #### C BC, ADIFF, VANCT, ANEU, GFR, CMP, ESR #### [address] [address] CO2 [Moles/Vol] 28 mmol/L Normal 23-31 [facility] Comment on above: Performed By: #### C BC, ADIFF, VANCT, ANEU, GFR, CMP, ESR #### [address] [address] Creatinine [Mass/Vol] 1.57 mg/dL High 0.55-1.02 [facility] Comment on above: Result Comment: Test ing performed on [employer] Dimension EXL analyzer using a modified kinetic Gagandeep technique. Performed By: #### C BC, ADIFF, VANCT, ANEU, GFR, CMP, ESR #### [address] [address] Electrolyte Balance 9.0 mEq/L Normal 4.0-15.0 [facility] Comment on above: Performed By: #### C BC, ADIFF, VANCT, ANEU, GFR, CMP, ESR #### [address] [address] Globulin 4.0 G/dL High 1.5-3.8 [facility] Comment on above: Performed By: #### C BC, ADIFF, VANCT, ANEU, GFR, CMP, ESR #### [address] [address] Glucose [Mass/Vol] 212 mg/dL High 80-115 [facility] Comment on above: Performed By: #### C BC, ADIFF, VANCT, ANEU, GFR, CMP, ESR #### [address] [address] Potassium [Moles/Vol] 5.0 mmol/L Normal 3.5-5.1 [facility] Comment on above: Performed By: #### C BC, ADIFF, VANCT, ANEU, GFR, CMP, ESR #### [address] [address] Sodium [Moles/Vol] 134 mmol/L Low 136-145 [facility] Comment on above: Performed By: #### C BC, ADIFF, VANCT, ANEU, GFR, CMP, ESR #### [address] [address] Total Protein 6.9 G/dL Normal 6.4-8.2 [facility] Comment on above: Performed By: #### C BC, ADIFF, VANCT, ANEU, GFR, CMP, ESR #### [address] [address] Urea nitrogen [Mass/Vol] 34 mg/dL High 7-18 [facility] Comment on above: Performed By: #### C BC, ADIFF, VANCT, ANEU, GFR, CMP, ESR #### [address] [address] DLDLon 06-22-2024 Direct LDL Cholesterol 56 mg/dL Normal 0-99 [facility] Comment on above: Result Comment: Dire ct LDL Cholesterol Reference Interval: Optimal: <100 mg/dL Near Optimal/above optimal: 100-129 mg/dL Borderline high: 130-159 mg/dL High: 160-189 mg/dL Very high: >=190 mg/dL Performed By: #### C BC, ADIFF, VANCT, ANEU, GFR, CMP, ESR #### [address] [address] LIPIDon 06-22-2024 Cholesterol [Mass/Vol] 173 mg/dL Normal 0-200 [facility] Comment on above: Result Comment: Chol esterol Reference Interval: Less than 200 Desirable 200-239 Borderline high risk 240 and above High risk Performed By: #### C BC, ADIFF, VANCT, ANEU, GFR, CMP, ESR #### [address] [address] Cholesterol in HDL [Mass/Vol] 43 mg/dL Normal 40-60 [facility] Comment on above: Performed By: #### C BC, ADIFF, VANCT, ANEU, GFR, CMP, ESR #### [id number] [place], [place] [address] LDL Cholesterol Not Valid Normal 0-130 [facility] Comment on above: Result Comment: Trig lyceride >400 invalidates the calculated LDL. Performed By: #### C BC, ADIFF, VANCT, ANEU, GFR, CMP, ESR #### [address] [address] Triglyceride [Mass/Vol] 577 mg/dL High 0-150 [facility] Comment on above: Result Comment: Trig lyceride Reference Interval: Less than 150 Normal 150-199 Borderline high risk 200-499 High risk 500 or higher Very high risk Performed By: #### C BC, ADIFF, VANCT, ANEU, GFR, CMP, ESR #### [address] [address] RFPon 06-22-2024 Albumin Level 3.0 G/dL Low 3.4-4.8 [facility] Comment on above: Performed By: #### C BC, ADIFF, VANCT, ANEU, GFR, CMP, ESR #### [address] [address] BUN/Creatinine Ratio 21 ratio Normal 7-27 [facility] Comment on above: Performed By: #### C BC, ADIFF, VANCT, ANEU, GFR, CMP, ESR #### [address] [address] Calcium [Mass/Vol] 10.6 mg/dL High 8.4-10.2 [facility] Comment on above: Performed By: #### C BC, ADIFF, VANCT, ANEU, GFR, CMP, ESR #### [address] [address] Chloride [Moles/Vol] 99 mmol/L Normal 98-107 [facility] Comment on above: Performed By: #### C BC, ADIFF, VANCT, ANEU, GFR, CMP, ESR #### [address] [address] CO2 [Moles/Vol] 28 mmol/L Normal 23-31 [facility] Comment on above: Performed By: #### C BC, ADIFF, VANCT, ANEU, GFR, CMP, ESR #### [address] [place] [address] Creatinine [Mass/Vol] 1.50 mg/dL High 0.55-1.02 [facility] Comment on above: Result Comment: Test ing performed on Siemens Dimension EXL analyzer using a modified kinetic Gagandeep technique. Performed By: #### C BC, ADIFF, VANCT, ANEU, GFR, CMP, ESR #### [address] [address] Electrolyte Balance 8.0 mEq/L Normal 4.0-15.0 [facility] Comment on above: Performed By: #### C BC, ADIFF, VANCT, ANEU, GFR, CMP, ESR #### [address] [address] Glucose [Mass/Vol] 212 mg/dL High 80-115 [facility] Comment on above: Performed By: #### C BC, ADIFF, VANCT, ANEU, GFR, CMP, ESR #### [address] [address] Phosphate [Mass/Vol] 2.4 mg/dL Normal 2.3-4.1 [facility] Comment on above: Performed By: #### C BC, ADIFF, VANCT, ANEU, GFR, CMP, ESR #### [address] [address] Potassium [Moles/Vol] 4.9 mmol/L Normal 3.5-5.1 [facility] Comment on above: Performed By: #### C BC, ADIFF, VANCT, ANEU, GFR, CMP, ESR #### [address] [address] Sodium [Moles/Vol] 135 mmol/L Low 136-145 [facility] Comment on above: Performed By: #### C BC, ADIFF, VANCT, ANEU, GFR, CMP, ESR #### [address] [address] Urea nitrogen [Mass/Vol] 32 mg/dL High 7-18 [facility] Comment on above: Performed By: #### C BC, ADIFF, VANCT, ANEU, GFR, CMP, ESR #### [address] [address] TSHon 06-22-2024 TSH Qn 1.20 m[IU]/L Normal 0.36-3.74 [facility] Comment on above: Performed By: #### C BC, ADIFF, VANCT, ANEU, GFR, CMP, ESR #### [address] [address] VIDHon 06-22-2024 Vit. D 25-Hydroxy 42.1 ng/mL Normal [facility] Comment on above: Result Comment: Inte rpretive Values Based on Total 25(OH) Vitamin D: Deficient <20 ng/mL Insufficient 20 - <30 ng/mL Sufficient 30-100 ng/mL Performed By: #### C BC, ADIFF, VANCT, ANEU, GFR, CMP, ESR #### [address] [address] VIDHon 04-19-2024 Vit. D 25-Hydroxy 52.5 ng/mL Normal [facility] Comment on above: Result Comment: Inte rpretive Values Based on Total 25(OH) Vitamin D: Deficient <20 ng/mL Insufficient 20 - <30 ng/mL Sufficient 30-100 ng/mL Performed By: #### C BC, ADIFF, VANCT, ANEU, GFR, CMP, ESR #### [address] [address] .GFRon 04-17-2024 GFR Non- 24 ml/min/1.73sqm Normal [facility] Comment on above: Result Comment: GFR Population mean for , Non- Americans Ages 20-29 = 116 mL/min/1.73 sq.m. Ages 30-39 = 107 mL/min/1.73 sq.m. Ages 40-49 = 99 mL/min/1.73 sq.m. Ages 50-59 = 93 mL/min/1.73 sq.m. Ages 60-69 = 85 mL/min/1.73 sq.m. Ages 70+ = 75 mL/min/1.73 sq.m. Chronic Kidney Disease: Less than 60 mL/min/1.73 square meters End Stage Renal Disease: Less than 15 mL/min/1.73 square meters Performed By: #### C BC, ADKAHLIL, ANNT, ANEU, GFR, CMP, ESR #### [address] [address] GFR 29 ml/min/1.73sqm [facility] Comment on above: Result Comment: GFR Population mean for , Non- Americans Ages 20-29 = 116 mL/min/1.73 sq.m. Ages 30-39 = 107 mL/min/1.73 sq.m. Ages 40-49 = 99 mL/min/1.73 sq.m. Ages 50-59 = 93 mL/min/1.73 sq.m. Ages 60-69 = 85 mL/min/1.73 sq.m. Ages 70+ = 75 mL/min/1.73 sq.m. Chronic Kidney Disease: Less than 60 mL/min/1.73 square meters End Stage Renal Disease: Less than 15 mL/min/1.73 square meters Performed By: #### C BC, EB, ANNT, ANEU, GFR, CMP, ESR #### [address] [address] GFR Non- 24 ml/min/1.73sqm [facility] Comment on above: Result Comment: GFR Population mean for , Non- Americans Ages 20-29 = 116 mL/min/1.73 sq.m. Ages 30-39 = 107 mL/min/1.73 sq.m. Ages 40-49 = 99 mL/min/1.73 sq.m. Ages 50-59 = 93 mL/min/1.73 sq.m. Ages 60-69 = 85 mL/min/1.73 sq.m. Ages 70+ = 75 mL/min/1.73 sq.m. Chronic Kidney Disease: Less than 60 mL/min/1.73 square meters End Stage Renal Disease: Less than 15 mL/min/1.73 square meters Performed By: #### U A #### [address] [address] GFR 29 ml/min/1.73sqm Normal [facility] Comment on above: Result Comment: GFR Population mean for , Non- Americans Ages 20-29 = 116 mL/min/1.73 sq.m. Ages 30-39 = 107 mL/min/1.73 sq.m. Ages 40-49 = 99 mL/min/1.73 sq.m. Ages 50-59 = 93 mL/min/1.73 sq.m. Ages 60-69 = 85 mL/min/1.73 sq.m. Ages 70+ = 75 mL/min/1.73 sq.m. Chronic Kidney Disease: Less than 60 mL/min/1.73 square meters End Stage Renal Disease: Less than 15 mL/min/1.73 square meters Performed By: #### U A #### [address] [address] A1Con 04-17-2024 Glucose [Mass/Vol] 126 mg/dL Normal [facility] Comment on above: Result Comment: Ly mated Average Glucose calculated by equation ((28.7xA1C)-46.7) Estimated average glucose (eAG) is a calculated value from Hemoglobin A1C and is truck sales representative of the average blood glucose level in the last 2-3 month period. Normal range: less than 114 mg/dL Performed By: #### C BC, ADKAHLIL, VANCT, ANEU, GFR, CMP, ESR #### [id number] [place], [place] [address] HbA1c (Bld) [Mass fraction] 6.0 % Normal 4.3-6.4 [facility] Comment on above: Performed By: #### C BC, ADIFF, VANCT, ANEU, GFR, CMP, ESR #### [id number] [place], [place] [address] CMPon 04-17-2024 Albumin Level 3.1 G/dL Low 3.4-4.8 [facility] Comment on above: Performed By: #### C BC, ADKAHLIL, VANCT, ANEU, GFR, CMP, ESR #### [id number] [place], [place] [address] Albumin/Globulin [Mass ratio] 0.8 {ratio} Low 1.1-2.5 [facility] Comment on above: Performed By: #### C BC, ADIFF, VANCT, ANEU, GFR, CMP, ESR #### [address] [address] ALP [Catalytic activity/Vol] 94 U/L Normal 40-135 [facility] Comment on above: Performed By: #### C BC, ADIFF, VANCT, ANEU, GFR, CMP, ESR #### [address] [address] ALT [Catalytic activity/Vol] 27 U/L Normal 14-59 [facility] Comment on above: Performed By: #### C BC, ADIFF, VANCT, ANEU, GFR, CMP, ESR #### [place] [address] AST [Catalytic activity/Vol] 29 U/L Normal 10-40 [facility] Comment on above: Performed By: #### C BC, ADIFF, VANCT, ANEU, GFR, CMP, ESR #### [address] [address] Bili Total 0.7 mg/dL Normal 0.2-1.0 [facility] Comment on above: Result Comment: Use of this assay is not recommended for patients undergoing treatment with eltrombopag due to the potential for falsely elevated results. Performed By: #### C BC, ADIFF, VANCT, ANEU, GFR, CMP, ESR #### [address] [address] BUN/Creatinine Ratio 21 ratio Normal 7-27 [facility] Comment on above: Performed By: #### C BC, ADIFF, VANCT, ANEU, GFR, CMP, ESR #### [address] [address] Calcium [Mass/Vol] 9.9 mg/dL Normal 8.4-10.2 [facility] Comment on above: Performed By: #### C BC, ADIFF, VANCT, ANEU, GFR, CMP, ESR #### [address] [place] [address] Chloride [Moles/Vol] 101 mmol/L Normal 98-107 [facility] Comment on above: Performed By: #### C BC, ADIFF, VANCT, ANEU, GFR, CMP, ESR #### [address] [address] CO2 [Moles/Vol] 29 mmol/L Normal 23-31 [facility] Comment on above: Performed By: #### C BC, ADIFF, VANCT, ANEU, GFR, CMP, ESR #### [address] [address] Creatinine [Mass/Vol] 2.06 mg/dL High 0.55-1.02 [facility] Comment on above: Result Comment: Test ing performed on [employer] Dimension EXL analyzer using a modified kinetic Gagandeep technique. Performed By: #### C BC, ADIFF, VANCT, ANEU, GFR, CMP, ESR #### [place] [address] Electrolyte Balance 10.0 mEq/L Normal 4.0-15.0 [facility] Comment on above: Performed By: #### C BC, ADIFF, VANCT, ANEU, GFR, CMP, ESR #### [place] [address] Globulin 3.7 G/dL Normal [facility] Comment on above: Performed By: #### C BC, ADIFF, VANCT, ANEU, GFR, CMP, ESR #### [address] [address] Glucose [Mass/Vol] 128 mg/dL High 80-115 [facility] Comment on above: Performed By: #### C BC, ADIFF, VANCT, ANEU, GFR, CMP, ESR #### [address] [address] Potassium [Moles/Vol] 4.1 mmol/L Normal 3.5-5.1 [facility] Comment on above: Performed By: #### C BC, ADIFF, VANCT, ANEU, GFR, CMP, ESR #### [address] [address] Sodium [Moles/Vol] 140 mmol/L Normal 136-145 [facility] Comment on above: Performed By: #### C BC, ADIFF, VANCT, ANEU, GFR, CMP, ESR #### [address] [address] Total Protein 6.8 G/dL Normal 6.4-8.2 [facility] Comment on above: Performed By: #### C BC, ADIFF, VANCT, ANEU, GFR, CMP, ESR #### [address] [address] Urea nitrogen [Mass/Vol] 44 mg/dL High 7-18 [facility] Comment on above: Performed By: #### C BC, ADIFF, VANCT, ANEU, GFR, CMP, ESR #### [address] [address] FT3on 04-17-2024 Free T3 [Mass/Vol] 2.39 pg/mL Normal 2.30-4.00 [facility] Comment on above: Performed By: #### C BC, ADIFF, VANCT, ANEU, GFR, CMP, ESR #### [address] [address] FT4on 04-17-2024 Free T4 [Mass/Vol] 1.11 ng/dL Normal 0.76-1.46 [facility] Comment on above: Performed By: #### C BC, ADIFF, VANCT, ANEU, GFR, CMP, ESR #### [address] [address] LABORATORYOrdered By: SYSTEM SYSTEM on 04-17-2024 Albumin BCP dye [Mass/Vol] 3.1 G/dL Low 3.4 - 4.8 G/dL AO ADM SS Calcium [Mass/Vol] 9.7 mg/dL Normal 8.4 - 10. 2 mg/dL AO ADM SS Chloride [Moles/Vol] 101 mmol/L Normal 98 - 10 7 mmol/L AO ADM SS CO2 [Moles/Vol] 29 mmol/L Normal 23 - 31 mmol/L AO ADM SS Creatinine [Mass/Vol] 2.09 mg/dL High 0.55 - 1.02 mg/dL AO ADM SS Comment on above: Interpretive Data: T esting performed on Siem[employer] Dimension EXL analyzer using a modified kinetic Gagandeep technique. Electrolyte Balance 11.0 mEq/L Normal 4.0 - 15 .0 mEq/L AO ADM SS GFR/1.73 sq M.predicted among blacks MDRD (S/P/Bld) [Vol rate/Area] 29 ml/min/1.73sqm Invalid Interpretation Code AO Chemistry S Comment on above: Interpretive Data: GFR Population mean for , Non- Americans Ages 20-29 = 116 mL/min/1.73 sq.m. Ages 30-39 = 107 mL/min/1.73 sq.m. Ages 40-49 = 99 mL/min/1.73 sq.m. Ages 50-59 = 93 mL/min/1.73 sq.m. Ages 60-69 = 85 mL/min/1.73 sq.m. Ages 70+ = 75 mL/min/1.73 sq.m. Chronic Kidney Disease: Less than 60 mL/min/1.73 square meters End Stage Renal Disease: Less than 15 mL/min/1.73 square meters GFR/1.73 sq M.predicted among non-blacks MDRD (S/P/Bld) [Vol rate/Area] 24 ml/min/1.73sqm Invalid Interpretation Code AO Chemistry S Comment on above: Interpretive Data: GFR Population mean for , Non- Americans Ages 20-29 = 116 mL/min/1.73 sq.m. Ages 30-39 = 107 mL/min/1.73 sq.m. Ages 40-49 = 99 mL/min/1.73 sq.m. Ages 50-59 = 93 mL/min/1.73 sq.m. Ages 60-69 = 85 mL/min/1.73 sq.m. Ages 70+ = 75 mL/min/1.73 sq.m. Chronic Kidney Disease: Less than 60 mL/min/1.73 square meters End Stage Renal Disease: Less than 15 mL/min/1.73 square meters Glucose [Mass/Vol] 125 mg/dL High 80 - 115 mg/dL AO ADM SS Parathyrin.intact [Mass/Vol] 99.2 pg/mL High 18.5 - 88.0 pg/mL AH ADM SS Phosphate [Mass/Vol] 3.8 mg/dL Normal 2.3 - 4 .1 mg/dL AO ADM SS Potassium [Moles/Vol] 4.2 mmol/L Normal 3.5 - 5.1 mmol/L AO ADM SS Sodium [Moles/Vol] 141 mmol/L Normal 136 - 145 mmol/L AO ADM SS Urea nitrogen [Mass/Vol] 43 mg/dL High 7 - 18 mg/dL AO ADM SS Urea nitrogen/Creatinine [Mass ratio] 21 ratio Normal 7 - 27 ratio AO ADM SS Albumin BCP dye [Mass/Vol] 3.1 G/dL Low 3.4 - 4.8 G/dL AO ADM SS Albumin/Globulin [Mass ratio] 0.8 {ratio} Low 1.1 - 2.5 ratio AO ADM SS ALP [Catalytic activity/Vol] 94 U/L Normal 40 - 135 U/L AO ADM SS ALT With P-5'-P [Catalytic activity/Vol] 27 U/L Normal 14 - 59 U/L AO ADM SS AST With P-5'-P [Catalytic activity/Vol] 29 U/L Normal 10 - 40 U/L AO ADM SS Bilirubin [Mass/Vol] 0.7 mg/dL Normal 0.2 - 1 .0 mg/dL AO ADM SS Comment on above: Interpretive Data: U se of this assay is not recommended for patients undergoing treatment with eltrombopag due to the potential for falsely elevated results. Calcium [Mass/Vol] 9.9 mg/dL Normal 8.4 - 10. 2 mg/dL AO ADM SS Chloride [Moles/Vol] 101 mmol/L Normal 98 - 10 7 mmol/L AO ADM SS CO2 [Moles/Vol] 29 mmol/L Normal 23 - 31 mmol/L AO ADM SS Creatinine [Mass/Vol] 2.06 mg/dL High 0.55 - 1.02 mg/dL AO ADM SS Comment on above: Interpretive Data: T esting performed on Siem[employer] Dimension EXL analyzer using a modified kinetic Gagandeep technique. Electrolyte Balance 10.0 mEq/L Normal 4.0 - 15 .0 mEq/L AO ADM SS Free T3 [Mass/Vol] 2.39 pg/mL Normal 2.30 - 4. 00 pg/mL AO ADM SS Free T4 [Mass/Vol] 1.11 ng/dL Normal 0.76 - 1. 46 ng/dL AO ADM SS GFR/1.73 sq M.predicted among blacks MDRD (S/P/Bld) [Vol rate/Area] 29 ml/min/1.73sqm Invalid Interpretation Code AO Chemistry S Comment on above: Interpretive Data: GFR Population mean for , Non- Americans Ages 20-29 = 116 mL/min/1.73 sq.m. Ages 30-39 = 107 mL/min/1.73 sq.m. Ages 40-49 = 99 mL/min/1.73 sq.m. Ages 50-59 = 93 mL/min/1.73 sq.m. Ages 60-69 = 85 mL/min/1.73 sq.m. Ages 70+ = 75 mL/min/1.73 sq.m. Chronic Kidney Disease: Less than 60 mL/min/1.73 square meters End Stage Renal Disease: Less than 15 mL/min/1.73 square meters GFR/1.73 sq M.predicted among non-blacks MDRD (S/P/Bld) [Vol rate/Area] 24 ml/min/1.73sqm Invalid Interpretation Code AO Chemistry S Comment on above: Interpretive Data: GFR Population mean for , Non- Americans Ages 20-29 = 116 mL/min/1.73 sq.m. Ages 30-39 = 107 mL/min/1.73 sq.m. Ages 40-49 = 99 mL/min/1.73 sq.m. Ages 50-59 = 93 mL/min/1.73 sq.m. Ages 60-69 = 85 mL/min/1.73 sq.m. Ages 70+ = 75 mL/min/1.73 sq.m. Chronic Kidney Disease: Less than 60 mL/min/1.73 square meters End Stage Renal Disease: Less than 15 mL/min/1.73 square meters Globulin 3.7 G/dL Invalid Interpretation Code AO ADM SS Glucose [Mass/Vol] 126 mg/dL Invalid Interpretation Code AO Chemistry S Comment on above: Interpretive Data: E stimated average glucose (eAG) is a calculated value from Hemoglobin A1C and is truck sales representative of the average blood glucose level in the last 2-3 month period. Normal range: less than 114 mg/dL Glucose [Mass/Vol] 128 mg/dL High 80 - 115 mg/dL AO ADM SS HbA1c (Bld) [Mass fraction] 6.0 % Normal 4.3 - 6.4 % AO ADM SS Potassium [Moles/Vol] 4.1 mmol/L Normal 3.5 - 5.1 mmol/L AO ADM SS Protein [Mass/Vol] 6.8 G/dL Normal 6.4 - 8.2 G/dL AO ADM SS Sodium [Moles/Vol] 140 mmol/L Normal 136 - 145 mmol/L AO ADM SS TSH Qn 0.97 m[IU]/L Normal 0.36 - 3.74 mcIU/mL AO ADM SS Urea nitrogen [Mass/Vol] 44 mg/dL High 7 - 18 mg/dL AO ADM SS Urea nitrogen/Creatinine [Mass ratio] 21 ratio Normal 7 - 27 ratio AO ADM SS LABORATORYOrdered By: Dagoberto Etienne on 04-17-2024 Cholesterol [Mass/Vol] 106 mg/dL Normal 0 - 200 mg/dL AO ADM SS Comment on above: Interpretive Data: C holesterol Reference Interval: Less than 200 Desirable 200-239 Borderline high risk 240 and above High risk Cholesterol in HDL [Mass/Vol] 38 mg/dL Low 40 - 60 mg/dL AO ADM SS Cholesterol in LDL [Mass/Vol] 17 mg/dL Normal 0 - 130 mg/dL AO ADM SS Triglyceride [Mass/Vol] 253 mg/dL High 0 - 150 mg/dL AO ADM SS Comment on above: Interpretive Data: T riglyceride Reference Interval: Less than 150 Normal 150-199 Borderline high risk 200-499 High risk 500 or higher Very high risk LIPIDon 04-17-2024 Cholesterol [Mass/Vol] 106 mg/dL Normal 0-200 [facility] Comment on above: Result Comment: Chol esterol Reference Interval: Less than 200 Desirable 200-239 Borderline high risk 240 and above High risk Performed By: #### C EB DAMIAN VANCT, ANEU, GFR, CMP, ESR #### [facility] [address] [place], [place] [address] Cholesterol in HDL [Mass/Vol] 38 mg/dL Low 40-60 [facility] Comment on above: Performed By: #### C EB DAMIAN VANCT, ANEU, GFR, CMP, ESR #### [address] [address] Cholesterol in LDL [Mass/Vol] 17 mg/dL Normal 0-130 [facility] Comment on above: Performed By: #### C BC, ADKAHLIL, VANCT, ANEU, GFR, CMP, ESR #### [address] [address] Triglyceride [Mass/Vol] 253 mg/dL High 0-150 [facility] Comment on above: Result Comment: Trig lyceride Reference Interval: Less than 150 Normal 150-199 Borderline high risk 200-499 High risk 500 or higher Very high risk Performed By: #### C BC, EB, VANCT, ANEU, GFR, CMP, ESR #### [address] [address] PTHon 04-17-2024 PTH, Intact 99.2 pg/mL High 18.5-88.0 [facility] Comment on above: Performed By: #### U A #### [address] [address] RFPon 04-17-2024 Albumin Level 3.1 G/dL Low 3.4-4.8 [facility] Comment on above: Performed By: #### U A #### [address] [address] BUN/Creatinine Ratio 21 ratio Normal 7-27 [facility] Comment on above: Performed By: #### U A #### [address] [address] Calcium [Mass/Vol] 9.7 mg/dL Normal 8.4-10.2 [facility] Comment on above: Performed By: #### U A #### [address] [address] Chloride [Moles/Vol] 101 mmol/L Normal 98-107 [facility] Comment on above: Performed By: #### U A #### [address] [address] CO2 [Moles/Vol] 29 mmol/L Normal 23-31 [facility] Comment on above: Performed By: #### U A #### [address] [address] Creatinine [Mass/Vol] 2.09 mg/dL High 0.55-1.02 [facility] Comment on above: Result Comment: Test ing performed on Siemens Dimension EXL analyzer using a modified kinetic Gagandeep technique. Performed By: #### U A #### [address] [address] Electrolyte Balance 11.0 mEq/L Normal 4.0-15.0 [facility] Comment on above: Performed By: #### U A #### [address] [address] Glucose [Mass/Vol] 125 mg/dL High 80-115 [facility] Comment on above: Performed By: #### U A #### [address] [address] Phosphate [Mass/Vol] 3.8 mg/dL Normal 2.3-4.1 [facility] Comment on above: Performed By: #### U A #### [address] [address] Potassium [Moles/Vol] 4.2 mmol/L Normal 3.5-5.1 [facility] Comment on above: Performed By: #### U A #### [address] [address] Sodium [Moles/Vol] 141 mmol/L Normal 136-145 [facility] Comment on above: Performed By: #### U A #### [address] [address] Urea nitrogen [Mass/Vol] 43 mg/dL High 7-18 [facility] Comment on above: Performed By: #### U A #### [address] [address] TSHon 04-17-2024 TSH Qn 0.97 m[IU]/L Normal 0.36-3.74 [facility] Comment on above: Performed By: #### C BC, ADIFF, VANCT, ANEU, GFR, CMP, ESR #### [facility] [address], [place] [address] MRI SPINE LUMBAR W/ + W/O CO NTRASTon 04-02-2024 MRI SPINE LUMBAR W/ + W/O CONTRAST ORIGINAL EXAMINATION: MRI OF THE LUMBAR SPINE WITHOUT AND WITH CONTRAST 04/02/2024 12:08 pm TECHNIQUE: Multiplanar multisequence MRI of the lumbar spine was performed without and with the administration of intravenous contrast. COMPARISON: MRI lumbar spine 02/03/2024 HISTORY: ORDERING SYSTEM PROVIDED HISTORY: Reason for Exam: osteomyelitis/discitis FINDINGS: BONES/ALIGNMENT: There is chronic moderate L1 compression fracture again noted. There is enhancement and abnormal signal of the L2 and L3 vertebral bodies compatible with osteomyelitis. The overall enhancement is mildly decreased. There is inflammatory change in enhancement again seen of the adjacent bilateral medial psoas musculature, decreased from prior study. There is anterior epidural cellulitis again noted at the L2 and L3 levels, mildly decreased. There is enhancement of the L4 right pedicle and right facet articular processes, with synovial enhancement of the facet joint, decreased from prior study. There is moderate loss of disc height, mildly increased from prior study. There is moderate compression of the thecal sac again noted. SPINAL CORD: The conus terminates normally. SOFT TISSUES: No abnormal enhancement is seen of the lumbar spine. No paraspinal mass identified. L1-L2: There is mild-moderate ligamentum flavum and facet hypertrophy. There is disc bulge with endplate osteophytes and bilateral foraminal extension, left greater than right. There is mild central canal stenosis. There is mild-moderate left neuroforaminal stenosis. L2-L3: There is moderate ligamentum flavum and facet hypertrophy. There is disc bulge with endplate osteophytes and bilateral foraminal extension, left greater than right with impingement of the exiting left L2 nerve root. There is moderate-severe right neuroforaminal stenosis with impingement of the exiting right L2 nerve root. There is mild-moderate central canal stenosis. L3-L4: There is moderate-severe ligamentum flavum and facet hypertrophy. There is disc bulge with endplate osteophytes and bilateral foraminal extension. There is moderate-severe central canal stenosis and lateral recess stenosis with impingement of bilateral traversing L4 nerve roots there is left foraminal 5 mm disc protrusion and impingement of the exiting left L3 nerve root. There is moderate left neuroforaminal stenosis. There is mild-moderate right neuroforaminal stenosis. . L4-L5: There is moderate-marked ligamentum flavum and facet hypertrophy. There is disc bulge with endplate osteophytes and bilateral foraminal extension. There is moderate central canal and lateral recess stenosis with impingement of bilateral traversing L5 nerve roots. There is mild-moderate left neuroforaminal stenosis. There is moderate right neuroforaminal stenosis. L5-S1: There is moderate-marked ligamentum flavum and facet hypertrophy. There is disc bulge with endplate osteophytes and bilateral foraminal extension. There is mild central canal stenosis. There is mild moderate lateral recess stenosis. There is mild-moderate bilateral neuroforaminal stenosis. Small synovial cyst noted at anterior aspect of left facet joint with mild impingement of exiting left L5 nerve root. IMPRESSION: 1. There is enhancement and abnormal signal of the L2 and L3 vertebral bodies compatible with osteomyelitis. The overall enhancement is mildly decreased. There is inflammatory change in enhancement again seen of the adjacent bilateral medial psoas musculature, decreased from prior study. There is anterior epidural cellulitis again noted at the L2 and L3 levels, mildly decreased. 2. There is enhancement of the L4 right pedicle and right facet articular processes, with synovial enhancement of the facet joint, decreased from prior study. 3. Multilevel degenerative changes again noted. At L2-L3, there is disc bulge with endplate osteophytes and bilateral foraminal extension, left greater than right with impingement of the exiting left L2 nerve root. There is moderate-severe right neuroforaminal stenosis with impingement of the exiting right L2 nerve root. There is mild-moderate central canal stenosis. 4. At L3-L4, there is moderate-severe central canal stenosis and lateral recess stenosis with impingement of bilateral traversing L4 nerve roots. There is left foraminal 5 mm disc protrusion and impingement of the exiting left L3 nerve root. 5. At L4-L5, there is moderate central canal and lateral recess stenosis with impingement of bilateral traversing L5 nerve roots. Interpreted by: José Luis Mancia Preliminary Report By: José Luis Mancia Electronically signed By José Luis Mancia Dictated Date: 04/02/2024 7:05:55 PM Prelim Date: 04/02/2024 7:32:29 PM Sign Date: 04/02/2024 7:32:29 PM Ordering Provider: AMALIA Moss [facility] Cardiology Visit Reporton Cardiology Visit Report [facility] [address] [place] [address] OFFICE VISIT Date of Service: 03/20/24 MR#: [id number] Acct: [id number] Name: GLORIA RODRIGUEZ Rep #: [id number] : 1955 Provider: ADAM power Age/Sex: 68/F Location: [facility] Status: Signed HPI HPI History of Present Illness Details: This is a 68-year-old lady who presents to the office today for a cardiovascular follow-up visit. She has a history of hypertension, hyperlipidemia, bipolar disorder, and palpitations. She had previously been seen for hypertension and chest discomfort she underwent a cardiac catheterization in 2016 demonstrating normal coronary arteries and an echocardiogram in 2019 demonstrated preserved ejection fraction. She has been previously evaluated with normal coronary arteries by catheterization in 2016. Her she had a stress test in February 2023 that was a normal pharmacological stress test. She denies chest, arm, jaw, or neck discomfort. She denies palpitations. She states bilateral lower extremity edema. She denies claudication. She states shortness of breath with activity. She denies shortness of breath at rest, orthopnea, or PND. She denies chronic cough. She denies significant, sudden weight gain. She denies lightheadedness, dizziness, near-syncope, or syncope. She denies blood in urine, blood in stool, or epistaxis. He denies fever with chills. She denies myalgia. She states fatigue. Her exercise level has remained stable. 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 Required: No Is patient in pain?: No Allergies codeine Allergy (Severe, Verified 03/20/24 14:27) MEMORY LOSS egg Allergy (Severe, Verified 03/20/24 14:27) FLU SYMTOPMS, WEEKNESS morphine Allergy (Severe, Verified 03/20/24 14:27) CARDIAC ARREST venom-honey bee (bee venom (honey bee)) Allergy (Severe, Verified 03/20/24 14:27) STOP BREATHING vortioxetine (From Brintellix) Allergy (Severe, Verified 03/20/24 14:27) LEGS FELT ON FIRE calcium carbonate (From Salagen (aspirin)) Allergy (Intermediate, Verified 03/20/24 14:27) PT UNSURE OF REACTION magnesium (From Salagen (aspirin)) Allergy (Intermediate, Verified 03/20/24 14:27) PT UNSURE OF REACTION aspirin Allergy (Unknown, Verified 03/20/24 14:27) Unknown calcium carbonate Allergy (Unknown, Verified 03/20/24 14:27) unknown gabapentin Allergy (Unknown, Verified 03/20/24 14:27) unknown hydrocodone (From Vicodin) Allergy (Unknown, Verified 03/20/24 14:27) [place] DOES NOT REMEMBER hydrocodone bitartrate (From Vicodin) Allergy (Unknown, Verified 03/20/24 14:27) PATIENT DOES NOT REMEMBER Penicillins Allergy (Unknown, Verified 03/20/24 14:27) Hives propoxyphene napsylate (From Darvocet-N 100) Allergy (Unknown, Verified 03/20/24 14:27) [place] DOES NOT REMEMBER Influenza Virus Vaccines Adverse Reaction (Severe, Verified 03/20/24 14:27) DEHYDRATION Medications ???Medication ???Instructions ???Recorded ???Confirmed ???Type albuterol sulfate 90 mcg/actuation 6.7 gm IH Q4H PRN PRN Sob /Or 07/12/13 03/20/24 History aerosol inhaler Wheezing oxybutynin chloride 10 mg 10 mg PO DAILY 04/30/20 03/20/24 History tablet,extended release 24 hr calcium 500 mg (as carbonate)-vit 1 each PO DAILY 06/12/20 03/20/24 History D3 10 mcg (400 unit) chewable tablet omeprazole 40 mg capsule,delayed 40 mg PO DAILY 06/12/20 03/20/24 History release atenolol 50 mg tablet 50 mg PO DAILY 05/05/21 03/20/24 History multivitamin-iron 9 mg-folic acid 1 tab PO DAILY 10/01/21 03/20/24 History 400 mcg-calcium and minerals tablet (Therems-M) furosemide 20 mg tablet (Lasix) 20 mg PO BID 08/25/22 03/20/24 History allopurinol 100 mg tablet 200 mg PO DAILY 12/01/22 03/20/24 History valsartan 80 0.5 tab PO DAILY 12/01/22 03/20/24 History mg-hydrochlorothiazide 12.5 mg tablet desvenlafaxine succinate 50 mg 50 mg PO DAILY 01/26/23 03/20/24 History tablet,extended release 24 hr pregabalin 50 mg capsule 50 mg PO DAILY 02/09/23 03/20/24 History colestipol 1 gram tablet 2 g PO BID 03/01/23 03/20/24 History semaglutide 0.25 mg or 0.5 mg (2 2 mg subcut QWEEK 03/01/23 03/20/24 History mg/3 mL) subcutaneous pen injector (Ozempic) Nebulizer machine #1 ea 07/06/23 02/15/24 Rx insulin lispro 100 unit/mL 35 unit subcut TID 09/16/23 03/20/24 History subcutaneous pen (Humalog KwikPen (U-100) (more content not included)... Normal [facility] .Auto Diffon 03-19-2024 Basophil, Absolute 0.0 10 3/mcL Normal 0.0-0.2 [facility] Comment on above: Performed By: #### V ANCT, ANEU, GFR, ADIFF, CMP, ESR, CBC #### [facility] [address] [place], [place] [address] Basophils/100 WBC (Bld) 0.2 % Normal 0.0-2.5 [facility] Comment on above: Performed By: #### V ANCT, ANEU, GFR, ADIFF, CMP, ESR, CBC #### [address] [address] Eosinophil, Absolute 0.2 10 3/mcL Normal 0.0-0.7 [facility] Comment on above: Performed By: #### V ANCT, ANEU, GFR, ADIFF, CMP, ESR, CBC #### [address] [address] Eosinophils/100 WBC (Bld) 2.3 % Normal 0.0-7.0 [facility] Comment on above: Performed By: #### V ANCT, ANEU, GFR, ADIFF, CMP, ESR, CBC #### [address] [address] Lymphocyte, Absolute 3.7 10 3/mcL Normal 0.9-4.3 [facility] Comment on above: Performed By: #### V ANCT, ANEU, GFR, ADIFF, CMP, ESR, CBC #### [address] [address] Lymphocytes/100 WBC (Bld) 36.3 % Normal 20.0-40.0 [facility] Comment on above: Performed By: #### V ANCT, ANEU, GFR, ADIFF, CMP, ESR, CBC #### [address] [address] Monocyte, Absolute 0.6 10 3/mcL Normal 0.1-1.4 [facility] Comment on above: Performed By: #### V ANCT, ANEU, GFR, ADIFF, CMP, ESR, CBC #### [address] [address] Monocytes/100 WBC (Bld) 6.2 % Normal 2.0-13.0 [facility] Comment on above: Performed By: #### V ANCT, ANEU, GFR, ADIFF, CMP, ESR, CBC #### [address] [address] Neutrophils/100 WBC (Bld) 55.0 % Normal 50.0-75.0 [facility] Comment on above: Performed By: #### V ANCT, ANEU, GFR, ADIFF, CMP, ESR, CBC #### [address] [address] .GFRon 03-19-2024 GFR 30 ml/min/1.73sqm Normal [facility] Comment on above: Result Comment: GFR Population mean for , Non- Americans Ages 20-29 = 116 mL/min/1.73 sq.m. Ages 30-39 = 107 mL/min/1.73 sq.m. Ages 40-49 = 99 mL/min/1.73 sq.m. Ages 50-59 = 93 mL/min/1.73 sq.m. Ages 60-69 = 85 mL/min/1.73 sq.m. Ages 70+ = 75 mL/min/1.73 sq.m. Chronic Kidney Disease: Less than 60 mL/min/1.73 square meters End Stage Renal Disease: Less than 15 mL/min/1.73 square meters Performed By: #### C BC, ADIFF, VANCT, ANEU, GFR, CMP, ESR #### [address] [address] GFR Non- 24 ml/min/1.73sqm Normal [facility] Comment on above: Result Comment: GFR Population mean for , Non- Americans Ages 20-29 = 116 mL/min/1.73 sq.m. Ages 30-39 = 107 mL/min/1.73 sq.m. Ages 40-49 = 99 mL/min/1.73 sq.m. Ages 50-59 = 93 mL/min/1.73 sq.m. Ages 60-69 = 85 mL/min/1.73 sq.m. Ages 70+ = 75 mL/min/1.73 sq.m. Chronic Kidney Disease: Less than 60 mL/min/1.73 square meters End Stage Renal Disease: Less than 15 mL/min/1.73 square meters Performed By: #### C BC, ADIFF, VANCT, ANEU, GFR, CMP, ESR #### [address] [address] .NEUABSon 03-19-2024 Neutrophil, Absolute 5.6 10 3/mcL Normal 2.3-8.1 [facility] Comment on above: Performed By: #### C BC, ADIFF, VANCT, ANEU, GFR, CMP, ESR #### [address] [address] CBCon 03-19-2024 Erythrocyte distribution width (RBC) [Ratio] 14.7 % Normal 11.5-15.5 [facility] Comment on above: Performed By: #### V ANCT, ANEU, GFR, ADIFF, CMP, ESR, CBC #### [place] [address] Hematocrit (Bld) [Volume fraction] 38.0 % Normal 34.0-46.0 [facility] Comment on above: Performed By: #### V ANCT, ANEU, GFR, ADIFF, CMP, ESR, CBC #### [place] [address] Hgb 12.8 G/dL Normal 12.0-16.0 [facility] Comment on above: Performed By: #### V ANCT, ANEU, GFR, ADIFF, CMP, ESR, CBC #### [place] [address] MCH (RBC) [Entitic mass] 31.0 pg Normal 27.0-33.0 [facility] Comment on above: Performed By: #### V ANCT, ANEU, GFR, ADIFF, CMP, ESR, CBC #### [place] [address] MCHC 33.7 G/dL Normal 32.0-36.0 [facility] Comment on above: Performed By: #### V ANCT, ANEU, GFR, ADIFF, CMP, ESR, CBC #### [place] [address] MCV (RBC) [Entitic vol] 92.0 fL Normal 80.0-99.0 [facility] Comment on above: Performed By: #### V ANCT, ANEU, GFR, ADIFF, CMP, ESR, CBC #### [address] [place] [address] Platelet 128 10 3/mcL Low 150-450 [facility] Comment on above: Performed By: #### V ANCT, ANEU, GFR, ADIFF, CMP, ESR, CBC #### [address] [address] Platelet mean volume (Bld) [Entitic vol] 9.3 fL Normal 6.6-10.5 [facility] Comment on above: Performed By: #### V ANCT, ANEU, GFR, ADIFF, CMP, ESR, CBC #### [address] [address] RBC 4.13 10 6/mcL Normal 4.10-5.30 [facility] Comment on above: Performed By: #### V ANCT, ANEU, GFR, ADIFF, CMP, ESR, CBC #### [address] [address] WBC 10.2 10 3/mcL Normal 4.5-10.8 [facility] Comment on above: Performed By: #### V ANCT, ANEU, GFR, ADIFF, CMP, ESR, CBC #### [address] [address] CMPon 03-19-2024 Albumin Level 2.9 G/dL Low 3.4-4.8 [facility] Comment on above: Performed By: #### C BC, ADIFF, VANCT, ANEU, GFR, CMP, ESR #### [address] [address] Albumin/Globulin [Mass ratio] 0.8 {ratio} Low 1.1-2.5 [facility] Comment on above: Performed By: #### C BC, ADIFF, VANCT, ANEU, GFR, CMP, ESR #### [address] [address] ALP [Catalytic activity/Vol] 93 U/L Normal 40-135 [facility] Comment on above: Performed By: #### C BC, ADIFF, VANCT, ANEU, GFR, CMP, ESR #### [address] [address] ALT [Catalytic activity/Vol] 26 U/L Normal 14-59 [facility] Comment on above: Performed By: #### C BC, ADIFF, VANCT, ANEU, GFR, CMP, ESR #### [address] [address] AST [Catalytic activity/Vol] 25 U/L Normal 10-40 [facility] Comment on above: Performed By: #### C BC, ADIFF, VANCT, ANEU, GFR, CMP, ESR #### [address] [address] Bili Total 0.3 mg/dL Normal 0.2-1.0 [facility] Comment on above: Result Comment: Use of this assay is not recommended for patients undergoing treatment with eltrombopag due to the potential for falsely elevated results. Performed By: #### C BC, ADIFF, VANCT, ANEU, GFR, CMP, ESR #### [address] [address] BUN/Creatinine Ratio 17 ratio Normal 7-27 [facility] Comment on above: Performed By: #### C BC, ADIFF, VANCT, ANEU, GFR, CMP, ESR #### [address] [address] Calcium [Mass/Vol] 9.9 mg/dL Normal 8.4-10.2 [facility] Comment on above: Performed By: #### C BC, ADIFF, VANCT, ANEU, GFR, CMP, ESR #### [address] [address] Chloride [Moles/Vol] 103 mmol/L Normal 98-107 [facility] Comment on above: Performed By: #### C BC, ADIFF, VANCT, ANEU, GFR, CMP, ESR #### [address] [address] CO2 [Moles/Vol] 24 mmol/L Normal 23-31 [facility] Comment on above: Performed By: #### C BC, ADIFF, VANCT, ANEU, GFR, CMP, ESR #### [address] [address] Creatinine [Mass/Vol] 2.03 mg/dL High 0.55-1.02 [facility] Comment on above: Result Comment: Test ing performed on Siemens Dimension EXL analyzer using a modified kinetic Gagandeep technique. Performed By: #### C BC, ADIFF, VANCT, ANEU, GFR, CMP, ESR #### [address] [address] Electrolyte Balance 13.0 mEq/L Normal 4.0-15.0 [facility] Comment on above: Performed By: #### C BC, ADIFF, VANCT, ANEU, GFR, CMP, ESR #### [address] [address] Globulin 3.8 G/dL Normal [facility] Comment on above: Performed By: #### C BC, ADIFF, VANCT, ANEU, GFR, CMP, ESR #### [address] [address] Glucose [Mass/Vol] 141 mg/dL High 80-115 [facility] Comment on above: Performed By: #### C BC, ADIFF, VANCT, ANEU, GFR, CMP, ESR #### [address] [address] Potassium [Moles/Vol] 4.1 mmol/L Normal 3.5-5.1 [facility] Comment on above: Performed By: #### C BC, ADIFF, VANCT, ANEU, GFR, CMP, ESR #### [address] [address] Sodium [Moles/Vol] 140 mmol/L Normal 136-145 [facility] Comment on above: Performed By: #### C BC, ADIFF, VANCT, ANEU, GFR, CMP, ESR #### [address] [address] Total Protein 6.7 G/dL Normal 6.4-8.2 [facility] Comment on above: Performed By: #### C BC, ADIFF, VANCT, ANEU, GFR, CMP, ESR #### [facility] [address] [place], [place] [address] Urea nitrogen [Mass/Vol] 35 mg/dL High 7-18 [facility] Comment on above: Performed By: #### C BC, ADIFF, VANCT, ANEU, GFR, CMP, ESR #### [facility] [address] [place], [place] [address] ESRon 03-19-2024 Erythrocyte Sed Rate 51 mm/hr High 0-30 [facility] Comment on above: Performed By: #### C BC, ADIFF, VANCT, ANEU, GFR, CMP, ESR #### [place] [id number] [place], [place] [address] LABORATORYOrdered By: SYSTEM SYSTEM on 03-19-2024 Albumin BCP dye [Mass/Vol] 2.9 G/dL Low 3.4 - 4.8 G/dL AO ADM SS Albumin/Globulin [Mass ratio] 0.8 {ratio} Low 1.1 - 2.5 ratio AO ADM SS ALP [Catalytic activity/Vol] 93 U/L Normal 40 - 135 U/L AO ADM SS ALT With P-5'-P [Catalytic activity/Vol] 26 U/L Normal 14 - 59 U/L AO ADM SS AST With P-5'-P [Catalytic activity/Vol] 25 U/L Normal 10 - 40 U/L AO ADM SS Basophils (Bld) [#/Vol] 0.0 103/mcL Normal 0.0 - 0.2 10^3/mcL AO Workflow SS Basophils/100 WBC (Bld) 0.2 % Normal 0.0 - 2.5 % AO Workflow SS Bilirubin [Mass/Vol] 0.3 mg/dL Normal 0.2 - 1 .0 mg/dL AO ADM SS Comment on above: Interpretive Data: U se of this assay is not recommended for patients undergoing treatment with eltrombopag due to the potential for falsely elevated results. Calcium [Mass/Vol] 9.9 mg/dL Normal 8.4 - 10. 2 mg/dL AO ADM SS Chloride [Moles/Vol] 103 mmol/L Normal 98 - 10 7 mmol/L AO ADM SS CO2 [Moles/Vol] 24 mmol/L Normal 23 - 31 mmol/L AO ADM SS Creatinine [Mass/Vol] 2.03 mg/dL High 0.55 - 1.02 mg/dL AO ADM SS Comment on above: Interpretive Data: T esting performed on Siemens Dimension EXL analyzer using a modified kinetic Gagandeep technique. Electrolyte Balance 13.0 mEq/L Normal 4.0 - 15 .0 mEq/L AO ADM SS Eosinophil, Absolute 0.2 103/mcL Normal 0.0 - 0 .7 10^3/mcL AO Workflow SS Eosinophils/100 WBC (Bld) 2.3 % Normal 0.0 - 7.0 % AO Workflow SS Erythrocyte distribution width (RBC) [Ratio] 14.7 % Normal 11.5 - 15.5 % AO Workflow SS GFR/1.73 sq M.predicted among blacks MDRD (S/P/Bld) [Vol rate/Area] 30 ml/min/1.73sqm Invalid Interpretation Code AO Chemistry S Comment on above: Interpretive Data: GFR Population mean for , Non- Americans Ages 20-29 = 116 mL/min/1.73 sq.m. Ages 30-39 = 107 mL/min/1.73 sq.m. Ages 40-49 = 99 mL/min/1.73 sq.m. Ages 50-59 = 93 mL/min/1.73 sq.m. Ages 60-69 = 85 mL/min/1.73 sq.m. Ages 70+ = 75 mL/min/1.73 sq.m. Chronic Kidney Disease: Less than 60 mL/min/1.73 square meters End Stage Renal Disease: Less than 15 mL/min/1.73 square meters GFR/1.73 sq M.predicted among non-blacks MDRD (S/P/Bld) [Vol rate/Area] 24 ml/min/1.73sqm Invalid Interpretation Code AO Chemistry S Comment on above: Interpretive Data: GFR Population mean for , Non- Americans Ages 20-29 = 116 mL/min/1.73 sq.m. Ages 30-39 = 107 mL/min/1.73 sq.m. Ages 40-49 = 99 mL/min/1.73 sq.m. Ages 50-59 = 93 mL/min/1.73 sq.m. Ages 60-69 = 85 mL/min/1.73 sq.m. Ages 70+ = 75 mL/min/1.73 sq.m. Chronic Kidney Disease: Less than 60 mL/min/1.73 square meters End Stage Renal Disease: Less than 15 mL/min/1.73 square meters Globulin 3.8 G/dL Invalid Interpretation Code AO ADM SS Glucose [Mass/Vol] 141 mg/dL High 80 - 115 mg/dL AO ADM SS Hematocrit (Bld) [Volume fraction] 38.0 % Normal 34.0 - 46.0 % AO Workflow SS Hemoglobin (Bld) [Mass/Vol] 12.8 G/dL Normal 12.0 - 16.0 G/dL AO Workflow SS Lymphocytes (Bld) [#/Vol] 3.7 103/mcL Normal 0.9 - 4.3 10^3/mcL AO Workflow SS Lymphocytes/100 WBC (Bld) 36.3 % Normal 20.0 - 40.0 % AO Workflow SS MCH (RBC) [Entitic mass] 31.0 pg Normal 27.0 - 33.0 pg AO Workflow SS MCHC 33.7 G/dL Normal 32.0 - 36.0 G/dL AO Workflow SS MCV (RBC) [Entitic vol] 92.0 fL Normal 80.0 - 99.0 fL AO Workflow SS Monocytes (Bld) [#/Vol] 0.6 103/mcL Normal 0.1 - 1.4 10^3/mcL AO Workflow SS Monocytes/100 WBC (Bld) 6.2 % Normal 2.0 - 13.0 % AO Workflow SS Neutrophils (Bld) [#/Vol] 5.6 103/mcL Normal 2.3 - 8.1 10^3/mcL AO Workflow SS Neutrophils/100 WBC (Bld) 55.0 % Normal 50.0 - 75.0 % AO Workflow SS Platelet mean volume (Bld) [Entitic vol] 9.3 fL Normal 6.6 - 10.5 fL AO Workflow SS Platelets (Bld) [#/Vol] 128 103/mcL Low 150 - 450 10^3/mcL AO Workflow SS Potassium [Moles/Vol] 4.1 mmol/L Normal 3.5 - 5.1 mmol/L AO ADM SS Protein [Mass/Vol] 6.7 G/dL Normal 6.4 - 8.2 G/dL AO ADM SS RBC (Bld) [#/Vol] 4.13 106/mcL Normal 4.10 - 5.3 0 10^6/mcL AO Workflow SS Sodium [Moles/Vol] 140 mmol/L Normal 136 - 145 mmol/L AO ADM SS Urea nitrogen [Mass/Vol] 35 mg/dL High 7 - 18 mg/dL AO ADM SS Urea nitrogen/Creatinine [Mass ratio] 17 ratio Normal 7 - 27 ratio AO ADM SS Vancomycin trough [Mass/Vol] 10.7 ug/mL Normal 5.0 - 20.0 mcg/mL AO ADM SS WBC (Bld) [#/Vol] 10.2 103/mcL Normal 4.5 - 10.8 10^3/mcL AO Workflow SS LABORATORYOrdered By: Nevin Vance on 03-19-2024 ESR Photometric method (Bld) [Velocity] 51 mm/hr High 0 - 30 mm/hr AO Man Heme SS LDose Vancomycin:(trough) Unknown (03/19/24 12:54 PM) Normal AO Chemistry S [facility] 03-19-2024 Vancomycin Tr 10.7 mcg/mL Normal 5.0-20.0 [facility] Comment on above: Performed By: #### C BC, ADIFF, VANCT, ANEU, GFR, CMP, ESR #### [address] [address] LDose Vancomycin:(trough) Unknown Normal [facility] Comment on above: Performed By: #### C BC, ADIFF, VANCT, ANEU, GFR, CMP, ESR #### [address] [address] .Auto Diffon 03-12-2024 Basophil, Absolute 0.0 10 3/mcL Normal 0.0-0.2 [facility] Comment on above: Performed By: #### C BC, ADIFF, VANCT, ANEU, GFR, CMP, ESR #### [address] [address] Basophils/100 WBC (Bld) 0.3 % Normal 0.0-2.5 [facility] Comment on above: Performed By: #### C BC, ADIFF, VANCT, ANEU, GFR, CMP, ESR #### [address] [place] [address] Eosinophil, Absolute 0.3 10 3/mcL Normal 0.0-0.7 [facility] Comment on above: Performed By: #### C BC, ADIFF, VANCT, ANEU, GFR, CMP, ESR #### [address] [address] Eosinophils/100 WBC (Bld) 2.4 % Normal 0.0-7.0 [facility] Comment on above: Performed By: #### C BC, ADIFF, VANCT, ANEU, GFR, CMP, ESR #### [address] [address] Lymphocyte, Absolute 2.2 10 3/mcL Normal 0.9-4.3 [facility] Comment on above: Performed By: #### C BC, ADIFF, VANCT, ANEU, GFR, CMP, ESR #### [address] [address] Lymphocytes/100 WBC (Bld) 18.2 % Low 20.0-40.0 [facility] Comment on above: Performed By: #### C BC, ADIFF, VANCT, ANEU, GFR, CMP, ESR #### [address] [address] Monocyte, Absolute 0.8 10 3/mcL Normal 0.1-1.4 [facility] Comment on above: Performed By: #### C BC, ADIFF, VANCT, ANEU, GFR, CMP, ESR #### [address] [address] Monocytes/100 WBC (Bld) 7.0 % Normal 2.0-13.0 [facility] Comment on above: Performed By: #### C BC, ADIFF, VANCT, ANEU, GFR, CMP, ESR #### [address] [address] Neutrophils/100 WBC (Bld) 72.1 % Normal 50.0-75.0 [facility] Comment on above: Performed By: #### C BC, ADIFF, VANCT, ANEU, GFR, CMP, ESR #### [address] [address] .GFRon 03-12-2024 GFR Non- 27 ml/min/1.73sqm Normal [facility] Comment on above: Result Comment: GFR Population mean for , Non- Americans Ages 20-29 = 116 mL/min/1.73 sq.m. Ages 30-39 = 107 mL/min/1.73 sq.m. Ages 40-49 = 99 mL/min/1.73 sq.m. Ages 50-59 = 93 mL/min/1.73 sq.m. Ages 60-69 = 85 mL/min/1.73 sq.m. Ages 70+ = 75 mL/min/1.73 sq.m. Chronic Kidney Disease: Less than 60 mL/min/1.73 square meters End Stage Renal Disease: Less than 15 mL/min/1.73 square meters Performed By: #### C EB DAMIAN VANCT, ANEU, GFR, CMP, ESR #### [address] [address] GFR 33 ml/min/1.73sqm [facility] Comment on above: Result Comment: GFR Population mean for , Non- Americans Ages 20-29 = 116 mL/min/1.73 sq.m. Ages 30-39 = 107 mL/min/1.73 sq.m. Ages 40-49 = 99 mL/min/1.73 sq.m. Ages 50-59 = 93 mL/min/1.73 sq.m. Ages 60-69 = 85 mL/min/1.73 sq.m. Ages 70+ = 75 mL/min/1.73 sq.m. Chronic Kidney Disease: Less than 60 mL/min/1.73 square meters End Stage Renal Disease: Less than 15 mL/min/1.73 square meters Performed By: #### C EB DAMIAN VANCT, ANEU, GFR, CMP, ESR #### [id number] [place], [place] [address] .NEUABSon 03-12-2024 Neutrophil, Absolute 8.7 10 3/mcL High 2.3-8.1 [facility] Comment on above: Performed By: #### C BC, ADIFF, VANCT, ANEU, GFR, CMP, ESR #### [address] [address] CBCon 03-12-2024 Erythrocyte distribution width (RBC) [Ratio] 14.6 % Normal 11.5-15.5 [facility] Comment on above: Performed By: #### C BC, ADIFF, VANCT, ANEU, GFR, CMP, ESR #### [place] [address] Hematocrit (Bld) [Volume fraction] 36.8 % Normal 34.0-46.0 [facility] Comment on above: Performed By: #### C BC, ADIFF, VANCT, ANEU, GFR, CMP, ESR #### [address] [address] Hgb 12.4 G/dL Normal 12.0-16.0 [facility] Comment on above: Performed By: #### C BC, ADIFF, VANCT, ANEU, GFR, CMP, ESR #### [address] [address] MCH (RBC) [Entitic mass] 30.7 pg Normal 27.0-33.0 [facility] Comment on above: Performed By: #### C BC, ADIFF, VANCT, ANEU, GFR, CMP, ESR #### [place] [address] MCHC 33.6 G/dL Normal 32.0-36.0 [facility] Comment on above: Performed By: #### C BC, ADIFF, VANCT, ANEU, GFR, CMP, ESR #### [address] [address] MCV (RBC) [Entitic vol] 91.3 fL Normal 80.0-99.0 [facility] Comment on above: Performed By: #### C BC, ADIFF, VANCT, ANEU, GFR, CMP, ESR #### [place] [id number] Platelet 139 10 3/mcL Low 150-450 [facility] Comment on above: Performed By: #### C BC, ADIFF, VANCT, ANEU, GFR, CMP, ESR #### [address] [address] Platelet mean volume (Bld) [Entitic vol] 9.2 fL Normal 6.6-10.5 [facility] Comment on above: Performed By: #### C BC, ADIFF, VANCT, ANEU, GFR, CMP, ESR #### [address] [address] RBC 4.03 10 6/mcL Low 4.10-5.30 [facility] Comment on above: Performed By: #### C BC, ADIFF, VANCT, ANEU, GFR, CMP, ESR #### [address] [address] WBC 12.0 10 3/mcL High 4.5-10.8 [facility] Comment on above: Performed By: #### C BC, ADIFF, VANCT, ANEU, GFR, CMP, ESR #### [address] [address] CMPon 03-12-2024 Albumin Level 2.9 G/dL Low 3.4-4.8 [facility] Comment on above: Performed By: #### C BC, ADIFF, VANCT, ANEU, GFR, CMP, ESR #### [place] [id number] Albumin/Globulin [Mass ratio] 0.8 {ratio} Low 1.1-2.5 [facility] Comment on above: Performed By: #### C BC, ADIFF, VANCT, ANEU, GFR, CMP, ESR #### [place] [id number] ALP [Catalytic activity/Vol] 102 U/L Normal 40-135 [facility] Comment on above: Performed By: #### C BC, ADIFF, VANCT, ANEU, GFR, CMP, ESR #### [place] [address] [place], [place] [address] ALT [Catalytic activity/Vol] 29 U/L Normal 14-59 [facility] Comment on above: Performed By: #### C BC, ADIFF, VANCT, ANEU, GFR, CMP, ESR #### [address] [address] AST [Catalytic activity/Vol] 19 U/L Normal 10-40 [facility] Comment on above: Performed By: #### C BC, ADIFF, VANCT, ANEU, GFR, CMP, ESR #### [address] [address] Bili Total 0.4 mg/dL Normal 0.2-1.0 [facility] Comment on above: Result Comment: Use of this assay is not recommended for patients undergoing treatment with eltrombopag due to the potential for falsely elevated results. Performed By: #### C BC, ADIFF, VANCT, ANEU, GFR, CMP, ESR #### [place] [id number] BUN/Creatinine Ratio 20 ratio Normal 7-27 [facility] Comment on above: Performed By: #### C BC, ADIFF, VANCT, ANEU, GFR, CMP, ESR #### [address] [address] Calcium [Mass/Vol] 10.0 mg/dL Normal 8.4-10.2 [facility] Comment on above: Performed By: #### C BC, ADIFF, VANCT, ANEU, GFR, CMP, ESR #### [address] [address] Chloride [Moles/Vol] 102 mmol/L Normal 98-107 [facility] Comment on above: Performed By: #### C BC, ADIFF, VANCT, ANEU, GFR, CMP, ESR #### [address] [address] CO2 [Moles/Vol] 25 mmol/L Normal 23-31 [facility] Comment on above: Performed By: #### C BC, ADIFF, VANCT, ANEU, GFR, CMP, ESR #### [address] [address] Creatinine [Mass/Vol] 1.84 mg/dL High 0.55-1.02 [facility] Comment on above: Result Comment: Test ing performed on Siemens Dimension EXL analyzer using a modified kinetic Gagandeep technique. Performed By: #### C BC, ADIFF, VANCT, ANEU, GFR, CMP, ESR #### [address] [address] Electrolyte Balance 13.0 mEq/L Normal 4.0-15.0 [facility] Comment on above: Performed By: #### C BC, ADIFF, VANCT, ANEU, GFR, CMP, ESR #### [address] [address] Globulin 3.8 G/dL Normal [facility] Comment on above: Performed By: #### C BC, ADIFF, VANCT, ANEU, GFR, CMP, ESR #### [address] [address] Glucose [Mass/Vol] 118 mg/dL High 80-115 [facility] Comment on above: Performed By: #### C BC, ADIFF, VANCT, ANEU, GFR, CMP, ESR #### [address] [address] Potassium [Moles/Vol] 4.0 mmol/L Normal 3.5-5.1 [facility] Comment on above: Performed By: #### C BC, ADIFF, VANCT, ANEU, GFR, CMP, ESR #### [address] [address] Sodium [Moles/Vol] 140 mmol/L Normal 136-145 [facility] Comment on above: Performed By: #### C BC, ADIFF, VANCT, ANEU, GFR, CMP, ESR #### [address] [address] Total Protein 6.7 G/dL Normal 6.4-8.2 [facility] Comment on above: Performed By: #### C BC, ADIFF, VANCT, ANEU, GFR, CMP, ESR #### [facility] [address] [place], [place] [address] Urea nitrogen [Mass/Vol] 36 mg/dL High 7-18 [facility] Comment on above: Performed By: #### C BC, ADIFF, VANCT, ANEU, GFR, CMP, ESR #### [facility] [address] [place], [place] [address] ESRon 03-12-2024 Erythrocyte Sed Rate 41 mm/hr High 0-30 [facility] Comment on above: Performed By: #### C BC, ADIFF, VANCT, ANEU, GFR, CMP, ESR #### [id number] [place], [place] [address] LABORATORYOrdered By: SYSTEM SYSTEM on 03-12-2024 Albumin BCP dye [Mass/Vol] 2.9 G/dL Low 3.4 - 4.8 G/dL AO ADM SS Albumin/Globulin [Mass ratio] 0.8 {ratio} Low 1.1 - 2.5 ratio AO ADM SS ALP [Catalytic activity/Vol] 102 U/L Normal 40 - 135 U/L AO ADM SS ALT With P-5'-P [Catalytic activity/Vol] 29 U/L Normal 14 - 59 U/L AO ADM SS AST With P-5'-P [Catalytic activity/Vol] 19 U/L Normal 10 - 40 U/L AO ADM SS Basophils (Bld) [#/Vol] 0.0 103/mcL Normal 0.0 - 0.2 10^3/mcL AO Workflow SS Basophils/100 WBC (Bld) 0.3 % Normal 0.0 - 2.5 % AO Workflow SS Bilirubin [Mass/Vol] 0.4 mg/dL Normal 0.2 - 1 .0 mg/dL AO ADM SS Comment on above: Interpretive Data: U se of this assay is not recommended for patients undergoing treatment with eltrombopag due to the potential for falsely elevated results. Calcium [Mass/Vol] 10.0 mg/dL Normal 8.4 - 10. 2 mg/dL AO ADM SS Chloride [Moles/Vol] 102 mmol/L Normal 98 - 10 7 mmol/L AO ADM SS CO2 [Moles/Vol] 25 mmol/L Normal 23 - 31 mmol/L AO ADM SS Creatinine [Mass/Vol] 1.84 mg/dL High 0.55 - 1.02 mg/dL AO ADM SS Comment on above: Interpretive Data: T esting performed on Siemens Dimension EXL analyzer using a modified kinetic Gagandeep technique. Electrolyte Balance 13.0 mEq/L Normal 4.0 - 15 .0 mEq/L AO ADM SS Eosinophil, Absolute 0.3 103/mcL Normal 0.0 - 0 .7 10^3/mcL AO Workflow SS Eosinophils/100 WBC (Bld) 2.4 % Normal 0.0 - 7.0 % AO Workflow SS Erythrocyte distribution width (RBC) [Ratio] 14.6 % Normal 11.5 - 15.5 % AO Workflow SS GFR/1.73 sq M.predicted among blacks MDRD (S/P/Bld) [Vol rate/Area] 33 ml/min/1.73sqm Invalid Interpretation Code AO Chemistry S Comment on above: Interpretive Data: GFR Population mean for , Non- Americans Ages 20-29 = 116 mL/min/1.73 sq.m. Ages 30-39 = 107 mL/min/1.73 sq.m. Ages 40-49 = 99 mL/min/1.73 sq.m. Ages 50-59 = 93 mL/min/1.73 sq.m. Ages 60-69 = 85 mL/min/1.73 sq.m. Ages 70+ = 75 mL/min/1.73 sq.m. Chronic Kidney Disease: Less than 60 mL/min/1.73 square meters End Stage Renal Disease: Less than 15 mL/min/1.73 square meters GFR/1.73 sq M.predicted among non-blacks MDRD (S/P/Bld) [Vol rate/Area] 27 ml/min/1.73sqm Invalid Interpretation Code AO Chemistry S Comment on above: Interpretive Data: GFR Population mean for , Non- Americans Ages 20-29 = 116 mL/min/1.73 sq.m. Ages 30-39 = 107 mL/min/1.73 sq.m. Ages 40-49 = 99 mL/min/1.73 sq.m. Ages 50-59 = 93 mL/min/1.73 sq.m. Ages 60-69 = 85 mL/min/1.73 sq.m. Ages 70+ = 75 mL/min/1.73 sq.m. Chronic Kidney Disease: Less than 60 mL/min/1.73 square meters End Stage Renal Disease: Less than 15 mL/min/1.73 square meters Globulin 3.8 G/dL Invalid Interpretation Code AO ADM SS Glucose [Mass/Vol] 118 mg/dL High 80 - 115 mg/dL AO ADM SS Hematocrit (Bld) [Volume fraction] 36.8 % Normal 34.0 - 46.0 % AO Workflow SS Hemoglobin (Bld) [Mass/Vol] 12.4 G/dL Normal 12.0 - 16.0 G/dL AO Workflow SS Lymphocytes (Bld) [#/Vol] 2.2 103/mcL Normal 0.9 - 4.3 10^3/mcL AO Workflow SS Lymphocytes/100 WBC (Bld) 18.2 % Low 20.0 - 40.0 % AO Workflow SS MCH (RBC) [Entitic mass] 30.7 pg Normal 27.0 - 33.0 pg AO Workflow SS MCHC 33.6 G/dL Normal 32.0 - 36.0 G/dL AO Workflow SS MCV (RBC) [Entitic vol] 91.3 fL Normal 80.0 - 99.0 fL AO Workflow SS Monocytes (Bld) [#/Vol] 0.8 103/mcL Normal 0.1 - 1.4 10^3/mcL AO Workflow SS Monocytes/100 WBC (Bld) 7.0 % Normal 2.0 - 13.0 % AO Workflow SS Neutrophils (Bld) [#/Vol] 8.7 103/mcL High 2.3 - 8.1 10^3/mcL AO Workflow SS Neutrophils/100 WBC (Bld) 72.1 % Normal 50.0 - 75.0 % AO Workflow SS Platelet mean volume (Bld) [Entitic vol] 9.2 fL Normal 6.6 - 10.5 fL AO Workflow SS Platelets (Bld) [#/Vol] 139 103/mcL Low 150 - 450 10^3/mcL AO Workflow SS Potassium [Moles/Vol] 4.0 mmol/L Normal 3.5 - 5.1 mmol/L AO ADM SS Protein [Mass/Vol] 6.7 G/dL Normal 6.4 - 8.2 G/dL AO ADM SS RBC (Bld) [#/Vol] 4.03 106/mcL Low 4.10 - 5.3 0 10^6/mcL AO Workflow SS Sodium [Moles/Vol] 140 mmol/L Normal 136 - 145 mmol/L AO ADM SS Urea nitrogen [Mass/Vol] 36 mg/dL High 7 - 18 mg/dL AO ADM SS Urea nitrogen/Creatinine [Mass ratio] 20 ratio Normal 7 - 27 ratio AO ADM SS Vancomycin trough [Mass/Vol] 18.3 ug/mL Normal 5.0 - 20.0 mcg/mL AO ADM SS WBC (Bld) [#/Vol] 12.0 103/mcL High 4.5 - 10.8 10^3/mcL AO Workflow SS LABORATORYOrdered By: Dagoberto Etienne on 03-12-2024 ESR Photometric method (Bld) [Velocity] 41 mm/hr High 0 - 30 mm/hr AO Man Heme SS LDose Vancomycin:(trough) Unknown (03/12/24 12:02 PM) Normal AO Chemistry S [facility] 03-12-2024 Vancomycin Tr 18.3 mcg/mL Normal 5.0-20.0 [facility] Comment on above: Performed By: #### C BC, EB, VANCT, ANEU, GFR, CMP, ESR #### [id number] [place], [place] [address] LDose Vancomycin:(trough) Unknown Normal [facility] Comment on above: Performed By: #### C BC, ADIFF, VANCT, ANEU, GFR, CMP, ESR #### [id number] [place], [place] [address] .GFRon 03-08-2024 GFR 39 ml/min/1.73sqm Normal [facility] Comment on above: Result Comment: GFR Population mean for , Non- Americans Ages 20-29 = 116 mL/min/1.73 sq.m. Ages 30-39 = 107 mL/min/1.73 sq.m. Ages 40-49 = 99 mL/min/1.73 sq.m. Ages 50-59 = 93 mL/min/1.73 sq.m. Ages 60-69 = 85 mL/min/1.73 sq.m. Ages 70+ = 75 mL/min/1.73 sq.m. Chronic Kidney Disease: Less than 60 mL/min/1.73 square meters End Stage Renal Disease: Less than 15 mL/min/1.73 square meters Performed By: #### C BC, ADIFF, VANCT, ANEU, GFR, CMP, ESR #### [address] [address] GFR Non- 32 ml/min/1.73sqm Normal [facility] Comment on above: Result Comment: GFR Population mean for , Non- Americans Ages 20-29 = 116 mL/min/1.73 sq.m. Ages 30-39 = 107 mL/min/1.73 sq.m. Ages 40-49 = 99 mL/min/1.73 sq.m. Ages 50-59 = 93 mL/min/1.73 sq.m. Ages 60-69 = 85 mL/min/1.73 sq.m. Ages 70+ = 75 mL/min/1.73 sq.m. Chronic Kidney Disease: Less than 60 mL/min/1.73 square meters End Stage Renal Disease: Less than 15 mL/min/1.73 square meters Performed By: #### C BC, ADIFF, VANCT, ANEU, GFR, CMP, ESR #### [address] [address] BMPon 03-08-2024 BUN/Creatinine Ratio 22 ratio Normal 7-27 [facility] Comment on above: Performed By: #### C BC, ADIFF, VANCT, ANEU, GFR, CMP, ESR #### [address] [address] Calcium [Mass/Vol] 9.9 mg/dL Normal 8.4-10.2 [facility] Comment on above: Performed By: #### C BC, ADIFF, VANCT, ANEU, GFR, CMP, ESR #### [address] [address] Chloride [Moles/Vol] 105 mmol/L Normal 98-107 [facility] Comment on above: Performed By: #### C BC, ADIFF, VANCT, ANEU, GFR, CMP, ESR #### [address] [address] CO2 [Moles/Vol] 23 mmol/L Normal 23-31 [facility] Comment on above: Performed By: #### C BC, ADIFF, VANCT, ANEU, GFR, CMP, ESR #### [address] [address] Creatinine [Mass/Vol] 1.59 mg/dL High 0.55-1.02 [facility] Comment on above: Result Comment: Test ing performed on Siemens Dimension EXL analyzer using a modified kinetic Gagandeep technique. Performed By: #### C BC, ADIFF, VANCT, ANEU, GFR, CMP, ESR #### [address] [address] Electrolyte Balance 13.0 mEq/L Normal 4.0-15.0 [facility] Comment on above: Performed By: #### C BC, ADIFF, VANCT, ANEU, GFR, CMP, ESR #### [address] [address] Glucose [Mass/Vol] 109 mg/dL Normal 80-115 [facility] Comment on above: Performed By: #### C BC, ADIFF, VANCT, ANEU, GFR, CMP, ESR #### [address] [address] Potassium [Moles/Vol] 4.0 mmol/L Normal 3.5-5.1 [facility] Comment on above: Performed By: #### C BC, ADIFF, VANCT, ANEU, GFR, CMP, ESR #### [address] [address] Sodium [Moles/Vol] 141 mmol/L Normal 136-145 [facility] Comment on above: Performed By: #### C BC, ADIFF, VANCT, ANEU, GFR, CMP, ESR #### [address] [address] Urea nitrogen [Mass/Vol] 35 mg/dL High 7-18 [facility] Comment on above: Performed By: #### C BC, ADIFF, VANCT, ANEU, GFR, CMP, ESR #### [facility] [address] [place], [place] [address] LABORATORYOrdered By: SYSTEM SYSTEM on 03-08-2024 Calcium [Mass/Vol] 9.9 mg/dL Normal 8.4 - 10. 2 mg/dL AO ADM SS Chloride [Moles/Vol] 105 mmol/L Normal 98 - 10 7 mmol/L AO ADM SS CO2 [Moles/Vol] 23 mmol/L Normal 23 - 31 mmol/L AO ADM SS Creatinine [Mass/Vol] 1.59 mg/dL High 0.55 - 1.02 mg/dL AO ADM SS Comment on above: Interpretive Data: T esting performed on Siemens Dimension EXL analyzer using a modified kinetic Gagandeep technique. Electrolyte Balance 13.0 mEq/L Normal 4.0 - 15 .0 mEq/L AO ADM SS GFR/1.73 sq M.predicted among blacks MDRD (S/P/Bld) [Vol rate/Area] 39 ml/min/1.73sqm Invalid Interpretation Code AO Chemistry S Comment on above: Interpretive Data: GFR Population mean for , Non- Americans Ages 20-29 = 116 mL/min/1.73 sq.m. Ages 30-39 = 107 mL/min/1.73 sq.m. Ages 40-49 = 99 mL/min/1.73 sq.m. Ages 50-59 = 93 mL/min/1.73 sq.m. Ages 60-69 = 85 mL/min/1.73 sq.m. Ages 70+ = 75 mL/min/1.73 sq.m. Chronic Kidney Disease: Less than 60 mL/min/1.73 square meters End Stage Renal Disease: Less than 15 mL/min/1.73 square meters GFR/1.73 sq M.predicted among non-blacks MDRD (S/P/Bld) [Vol rate/Area] 32 ml/min/1.73sqm Invalid Interpretation Code AO Chemistry S Comment on above: Interpretive Data: GFR Population mean for , Non- Americans Ages 20-29 = 116 mL/min/1.73 sq.m. Ages 30-39 = 107 mL/min/1.73 sq.m. Ages 40-49 = 99 mL/min/1.73 sq.m. Ages 50-59 = 93 mL/min/1.73 sq.m. Ages 60-69 = 85 mL/min/1.73 sq.m. Ages 70+ = 75 mL/min/1.73 sq.m. Chronic Kidney Disease: Less than 60 mL/min/1.73 square meters End Stage Renal Disease: Less than 15 mL/min/1.73 square meters Glucose [Mass/Vol] 109 mg/dL Normal 80 - 115 mg/dL AO ADM SS Potassium [Moles/Vol] 4.0 mmol/L Normal 3.5 - 5.1 mmol/L AO ADM SS Sodium [Moles/Vol] 141 mmol/L Normal 136 - 145 mmol/L AO ADM SS Urea nitrogen [Mass/Vol] 35 mg/dL High 7 - 18 mg/dL AO ADM SS Urea nitrogen/Creatinine [Mass ratio] 22 ratio Normal 7 - 27 ratio AO ADM SS Vancomycin trough [Mass/Vol] 20.8 ug/mL High 5.0 - 20.0 mcg/mL AO ADM SS LABORATORYOrdered By: Betito Ovalles on 03-08-2024 LDose Vancomycin:(trough) Unknown (03/08/24 10:10 AM) Normal AO Chemistry S [facility] 03-08-2024 LDose Vancomycin:(trough) Unknown Normal [facility] Comment on above: Performed By: #### C NATI, CHAR PARSON, ANEU, GFR, CMP, ESR #### [id number] [place], [place] [address] Vancomycin Tr 20.8 mcg/mL High 5.0-20.0 [facility] Comment on above: Performed By: #### C EB DAMIAN VANCT, ANEU, GFR, CMP, ESR #### [id number] [place], [place] [address] .Auto Diffon 03-05-2024 Basophil, Absolute 0.0 10 3/mcL Normal 0.0-0.2 [facility] Comment on above: Performed By: #### C EB DAMIAN, ANNT, ANEU, GFR, CMP, ESR #### [place] [id number] [place], [place] [address] Basophils/100 WBC (Bld) 0.3 % Normal 0.0-2.5 [facility] Comment on above: Performed By: #### C BC, ADIFF, VANCT, ANEU, GFR, CMP, ESR #### [address] [address] Eosinophil, Absolute 0.3 10 3/mcL Normal 0.0-0.7 [facility] Comment on above: Performed By: #### C BC, ADIFF, VANCT, ANEU, GFR, CMP, ESR #### [address] [address] Eosinophils/100 WBC (Bld) 3.3 % Normal 0.0-7.0 [facility] Comment on above: Performed By: #### C BC, ADIFF, VANCT, ANEU, GFR, CMP, ESR #### [address] [address] Lymphocyte, Absolute 2.8 10 3/mcL Normal 0.9-4.3 [facility] Comment on above: Performed By: #### C BC, ADIFF, VANCT, ANEU, GFR, CMP, ESR #### [address] [address] Lymphocytes/100 WBC (Bld) 31.5 % Normal 20.0-40.0 [facility] Comment on above: Performed By: #### C BC, ADIFF, VANCT, ANEU, GFR, CMP, ESR #### [address] [address] Monocyte, Absolute 0.7 10 3/mcL Normal 0.1-1.4 [facility] Comment on above: Performed By: #### C BC, ADIFF, VANCT, ANEU, GFR, CMP, ESR #### [address] [address] Monocytes/100 WBC (Bld) 7.8 % Normal 2.0-13.0 [facility] Comment on above: Performed By: #### C BC, ADIFF, VANCT, ANEU, GFR, CMP, ESR #### [address] [address] Neutrophils/100 WBC (Bld) 57.1 % Normal 50.0-75.0 [facility] Comment on above: Performed By: #### C BC, ADIFF, VANCT, ANEU, GFR, CMP, ESR #### [address] [address] .GFRon 03-05-2024 GFR 39 ml/min/1.73sqm Normal [facility] Comment on above: Result Comment: GFR Population mean for , Non- Americans Ages 20-29 = 116 mL/min/1.73 sq.m. Ages 30-39 = 107 mL/min/1.73 sq.m. Ages 40-49 = 99 mL/min/1.73 sq.m. Ages 50-59 = 93 mL/min/1.73 sq.m. Ages 60-69 = 85 mL/min/1.73 sq.m. Ages 70+ = 75 mL/min/1.73 sq.m. Chronic Kidney Disease: Less than 60 mL/min/1.73 square meters End Stage Renal Disease: Less than 15 mL/min/1.73 square meters Performed By: #### C BC, ADIFF, VANCT, ANEU, GFR, CMP, ESR #### [address] [address] GFR Non- 32 ml/min/1.73sqm Normal [facility] Comment on above: Result Comment: GFR Population mean for , Non- Americans Ages 20-29 = 116 mL/min/1.73 sq.m. Ages 30-39 = 107 mL/min/1.73 sq.m. Ages 40-49 = 99 mL/min/1.73 sq.m. Ages 50-59 = 93 mL/min/1.73 sq.m. Ages 60-69 = 85 mL/min/1.73 sq.m. Ages 70+ = 75 mL/min/1.73 sq.m. Chronic Kidney Disease: Less than 60 mL/min/1.73 square meters End Stage Renal Disease: Less than 15 mL/min/1.73 square meters Performed By: #### C BC, ADIFF, VANCT, ANEU, GFR, CMP, ESR #### [address] [address] .NEUABSon 03-05-2024 Neutrophil, Absolute 5.1 10 3/mcL Normal 2.3-8.1 [facility] Comment on above: Performed By: #### C BC, ADIFF, VANCT, ANEU, GFR, CMP, ESR #### [address] [address] CBCon 03-05-2024 Erythrocyte distribution width (RBC) [Ratio] 14.3 % Normal 11.5-15.5 [facility] Comment on above: Performed By: #### C BC, ADIFF, VANCT, ANEU, GFR, CMP, ESR #### [place] [address] Hematocrit (Bld) [Volume fraction] 35.5 % Normal 34.0-46.0 [facility] Comment on above: Performed By: #### C BC, ADIFF, VANCT, ANEU, GFR, CMP, ESR #### [place] [id number] Hgb 12.2 G/dL Normal 12.0-16.0 [facility] Comment on above: Performed By: #### C BC, ADIFF, VANCT, ANEU, GFR, CMP, ESR #### [address] [address] MCH (RBC) [Entitic mass] 31.3 pg Normal 27.0-33.0 [facility] Comment on above: Performed By: #### C BC, ADIFF, VANCT, ANEU, GFR, CMP, ESR #### [address] [address] MCHC 34.4 G/dL Normal 32.0-36.0 [facility] Comment on above: Performed By: #### C BC, ADIFF, VANCT, ANEU, GFR, CMP, ESR #### [place] [id number] MCV (RBC) [Entitic vol] 91.1 fL Normal 80.0-99.0 [facility] Comment on above: Performed By: #### C BC, ADIFF, VANCT, ANEU, GFR, CMP, ESR #### [address] [address] Platelet 137 10 3/mcL Low 150-450 [facility] Comment on above: Performed By: #### C BC, ADIFF, VANCT, ANEU, GFR, CMP, ESR #### [address] [address] Platelet mean volume (Bld) [Entitic vol] 9.3 fL Normal 6.6-10.5 [facility] Comment on above: Performed By: #### C BC, ADIFF, VANCT, ANEU, GFR, CMP, ESR #### [address] [address] RBC 3.89 10 6/mcL Low 4.10-5.30 [facility] Comment on above: Performed By: #### C BC, ADIFF, VANCT, ANEU, GFR, CMP, ESR #### [address] [address] WBC 8.8 10 3/mcL Normal 4.5-10.8 [facility] Comment on above: Performed By: #### C BC, ADIFF, VANCT, ANEU, GFR, CMP, ESR #### [address] [address] CMPon 03-05-2024 Albumin Level 2.9 G/dL Low 3.4-4.8 [facility] Comment on above: Performed By: #### C BC, ADIFF, VANCT, ANEU, GFR, CMP, ESR #### [address] [address] Albumin/Globulin [Mass ratio] 0.8 {ratio} Low 1.1-2.5 [facility] Comment on above: Performed By: #### C BC, ADIFF, VANCT, ANEU, GFR, CMP, ESR #### [address] [address] ALP [Catalytic activity/Vol] 91 U/L Normal 40-135 [facility] Comment on above: Performed By: #### C BC, ADIFF, VANCT, ANEU, GFR, CMP, ESR #### [id number] [place], [place] [address] ALT [Catalytic activity/Vol] 35 U/L Normal 14-59 [facility] Comment on above: Performed By: #### C BC, ADIFF, VANCT, ANEU, GFR, CMP, ESR #### [id number] [place], [place] [address] AST [Catalytic activity/Vol] 29 U/L Normal 10-40 [facility] Comment on above: Performed By: #### C BC, ADIFF, VANCT, ANEU, GFR, CMP, ESR #### [address] [address] Bili Total 0.6 mg/dL Normal 0.2-1.0 [facility] Comment on above: Result Comment: Use of this assay is not recommended for patients undergoing treatment with eltrombopag due to the potential for falsely elevated results. Performed By: #### C BC, ADIFF, VANCT, ANEU, GFR, CMP, ESR #### [address] [address] BUN/Creatinine Ratio 25 ratio Normal 7-27 [facility] Comment on above: Performed By: #### C BC, ADIFF, VANCT, ANEU, GFR, CMP, ESR #### [address] [address] Calcium [Mass/Vol] 10.1 mg/dL Normal 8.4-10.2 [facility] Comment on above: Performed By: #### C BC, ADIFF, VANCT, ANEU, GFR, CMP, ESR #### [address] [address] Chloride [Moles/Vol] 101 mmol/L Normal 98-107 [facility] Comment on above: Performed By: #### C BC, ADIFF, VANCT, ANEU, GFR, CMP, ESR #### [address] [address] CO2 [Moles/Vol] 27 mmol/L Normal 23-31 [facility] Comment on above: Performed By: #### C BC, ADIFF, VANCT, ANEU, GFR, CMP, ESR #### [address] [address] Creatinine [Mass/Vol] 1.60 mg/dL High 0.55-1.02 [facility] Comment on above: Result Comment: Test ing performed on Siemens Dimension EXL analyzer using a modified kinetic Gagandeep technique. Performed By: #### C BC, ADIFF, VANCT, ANEU, GFR, CMP, ESR #### [address] [address] Electrolyte Balance 9.0 mEq/L Normal 4.0-15.0 [facility] Comment on above: Performed By: #### C BC, ADIFF, VANCT, ANEU, GFR, CMP, ESR #### [address] [address] Globulin 3.6 G/dL Normal [facility] Comment on above: Performed By: #### C BC, ADIFF, VANCT, ANEU, GFR, CMP, ESR #### [address] [address] Glucose [Mass/Vol] 131 mg/dL High 80-115 [facility] Comment on above: Performed By: #### C BC, ADIFF, VANCT, ANEU, GFR, CMP, ESR #### [address] [address] Potassium [Moles/Vol] 4.1 mmol/L Normal 3.5-5.1 [facility] Comment on above: Performed By: #### C BC, ADIFF, VANCT, ANEU, GFR, CMP, ESR #### [address] [address] Sodium [Moles/Vol] 137 mmol/L Normal 136-145 [facility] Comment on above: Performed By: #### C BC, ADIFF, VANCT, ANEU, GFR, CMP, ESR #### [address] [address] Total Protein 6.5 G/dL Normal 6.4-8.2 [facility] Comment on above: Performed By: #### C BC, ADIFF, VANCT, ANEU, GFR, CMP, ESR #### [id number] [place], [place] [address] Urea nitrogen [Mass/Vol] 40 mg/dL High 7-18 [facility] Comment on above: Performed By: #### C BC, ADIFF, VANCT, ANEU, GFR, CMP, ESR #### [id number] [place], [place] [address] ESRon 03-05-2024 Erythrocyte Sed Rate 50 mm/hr High 0-30 [facility] Comment on above: Performed By: #### C BC, ADIFF, VANCT, ANEU, GFR, CMP, ESR #### [id number] [place], [place] [address] LABORATORYOrdered By: SYSTEM SYSTEM on 03-05-2024 Albumin BCP dye [Mass/Vol] 2.9 G/dL Low 3.4 - 4.8 G/dL AO ADM SS Albumin/Globulin [Mass ratio] 0.8 {ratio} Low 1.1 - 2.5 ratio AO ADM SS ALP [Catalytic activity/Vol] 91 U/L Normal 40 - 135 U/L AO ADM SS ALT With P-5'-P [Catalytic activity/Vol] 35 U/L Normal 14 - 59 U/L AO ADM SS AST With P-5'-P [Catalytic activity/Vol] 29 U/L Normal 10 - 40 U/L AO ADM SS Basophils (Bld) [#/Vol] 0.0 103/mcL Normal 0.0 - 0.2 10^3/mcL AO Workflow SS Basophils/100 WBC (Bld) 0.3 % Normal 0.0 - 2.5 % AO Workflow SS Bilirubin [Mass/Vol] 0.6 mg/dL Normal 0.2 - 1 .0 mg/dL AO ADM SS Comment on above: Interpretive Data: U se of this assay is not recommended for patients undergoing treatment with eltrombopag due to the potential for falsely elevated results. Calcium [Mass/Vol] 10.1 mg/dL Normal 8.4 - 10. 2 mg/dL AO ADM SS Chloride [Moles/Vol] 101 mmol/L Normal 98 - 10 7 mmol/L AO ADM SS CO2 [Moles/Vol] 27 mmol/L Normal 23 - 31 mmol/L AO ADM SS Creatinine [Mass/Vol] 1.60 mg/dL High 0.55 - 1.02 mg/dL AO ADM SS Comment on above: Interpretive Data: T esting performed on Siemens Dimension EXL analyzer using a modified kinetic Gagandeep technique. Electrolyte Balance 9.0 mEq/L Normal 4.0 - 15 .0 mEq/L AO ADM SS Eosinophil, Absolute 0.3 103/mcL Normal 0.0 - 0 .7 10^3/mcL AO Workflow SS Eosinophils/100 WBC (Bld) 3.3 % Normal 0.0 - 7.0 % AO Workflow SS Erythrocyte distribution width (RBC) [Ratio] 14.3 % Normal 11.5 - 15.5 % AO Workflow SS GFR/1.73 sq M.predicted among blacks MDRD (S/P/Bld) [Vol rate/Area] 39 ml/min/1.73sqm Invalid Interpretation Code AO Chemistry S Comment on above: Interpretive Data: GFR Population mean for , Non- Americans Ages 20-29 = 116 mL/min/1.73 sq.m. Ages 30-39 = 107 mL/min/1.73 sq.m. Ages 40-49 = 99 mL/min/1.73 sq.m. Ages 50-59 = 93 mL/min/1.73 sq.m. Ages 60-69 = 85 mL/min/1.73 sq.m. Ages 70+ = 75 mL/min/1.73 sq.m. Chronic Kidney Disease: Less than 60 mL/min/1.73 square meters End Stage Renal Disease: Less than 15 mL/min/1.73 square meters GFR/1.73 sq M.predicted among non-blacks MDRD (S/P/Bld) [Vol rate/Area] 32 ml/min/1.73sqm Invalid Interpretation Code AO Chemistry S Comment on above: Interpretive Data: GFR Population mean for , Non- Americans Ages 20-29 = 116 mL/min/1.73 sq.m. Ages 30-39 = 107 mL/min/1.73 sq.m. Ages 40-49 = 99 mL/min/1.73 sq.m. Ages 50-59 = 93 mL/min/1.73 sq.m. Ages 60-69 = 85 mL/min/1.73 sq.m. Ages 70+ = 75 mL/min/1.73 sq.m. Chronic Kidney Disease: Less than 60 mL/min/1.73 square meters End Stage Renal Disease: Less than 15 mL/min/1.73 square meters Globulin 3.6 G/dL Invalid Interpretation Code AO ADM SS Glucose [Mass/Vol] 131 mg/dL High 80 - 115 mg/dL AO ADM SS Hematocrit (Bld) [Volume fraction] 35.5 % Normal 34.0 - 46.0 % AO Workflow SS Hemoglobin (Bld) [Mass/Vol] 12.2 G/dL Normal 12.0 - 16.0 G/dL AO Workflow SS Lymphocytes (Bld) [#/Vol] 2.8 103/mcL Normal 0.9 - 4.3 10^3/mcL AO Workflow SS Lymphocytes/100 WBC (Bld) 31.5 % Normal 20.0 - 40.0 % AO Workflow SS MCH (RBC) [Entitic mass] 31.3 pg Normal 27.0 - 33.0 pg AO Workflow SS MCHC 34.4 G/dL Normal 32.0 - 36.0 G/dL AO Workflow SS MCV (RBC) [Entitic vol] 91.1 fL Normal 80.0 - 99.0 fL AO Workflow SS Monocytes (Bld) [#/Vol] 0.7 103/mcL Normal 0.1 - 1.4 10^3/mcL AO Workflow SS Monocytes/100 WBC (Bld) 7.8 % Normal 2.0 - 13.0 % AO Workflow SS Neutrophils (Bld) [#/Vol] 5.1 103/mcL Normal 2.3 - 8.1 10^3/mcL AO Workflow SS Neutrophils/100 WBC (Bld) 57.1 % Normal 50.0 - 75.0 % AO Workflow SS Platelet mean volume (Bld) [Entitic vol] 9.3 fL Normal 6.6 - 10.5 fL AO Workflow SS Platelets (Bld) [#/Vol] 137 103/mcL Low 150 - 450 10^3/mcL AO Workflow SS Potassium [Moles/Vol] 4.1 mmol/L Normal 3.5 - 5.1 mmol/L AO ADM SS Protein [Mass/Vol] 6.5 G/dL Normal 6.4 - 8.2 G/dL AO ADM SS RBC (Bld) [#/Vol] 3.89 106/mcL Low 4.10 - 5.3 0 10^6/mcL AO Workflow SS Sodium [Moles/Vol] 137 mmol/L Normal 136 - 145 mmol/L AO ADM SS Urea nitrogen [Mass/Vol] 40 mg/dL High 7 - 18 mg/dL AO ADM SS Urea nitrogen/Creatinine [Mass ratio] 25 ratio Normal 7 - 27 ratio AO ADM SS Vancomycin trough [Mass/Vol] 23.4 ug/mL High 5.0 - 20.0 mcg/mL AO ADM SS WBC (Bld) [#/Vol] 8.8 103/mcL Normal 4.5 - 10.8 10^3/mcL AO Workflow SS LABORATORYOrdered By: Nevin Vance on 03-05-2024 ESR Photometric method (Bld) [Velocity] 50 mm/hr High 0 - 30 mm/hr AO Man Heme SS LDose Vancomycin:(trough) Unknown (03/05/24 10:20 AM) Normal AO Chemistry S [facility] 03-05-2024 Vancomycin Tr 23.4 mcg/mL High 5.0-20.0 [facility] Comment on above: Performed By: #### C BC, ADIFF, VANCT, ANEU, GFR, CMP, ESR #### [address] [address] LDose Vancomycin:(trough) Unknown Normal [facility] Comment on above: Performed By: #### C BC, ADIFF, VANCT, ANEU, GFR, CMP, ESR #### [address] [address] .Auto Diffon 02-28-2024 Basophil, Absolute 0.0 10 3/mcL Normal 0.0-0.2 [facility] Comment on above: Performed By: #### C BC, ADIFF, VANCT, ANEU, GFR, CMP, ESR #### [address] [address] Basophils/100 WBC (Bld) 0.3 % Normal 0.0-2.5 [facility] Comment on above: Performed By: #### C BC, ADIFF, VANCT, ANEU, GFR, CMP, ESR #### [address] [address] Eosinophil, Absolute 0.3 10 3/mcL Normal 0.0-0.7 [facility] Comment on above: Performed By: #### C BC, ADIFF, VANCT, ANEU, GFR, CMP, ESR #### [address] [address] Eosinophils/100 WBC (Bld) 4.3 % Normal 0.0-7.0 [facility] Comment on above: Performed By: #### C BC, ADIFF, VANCT, ANEU, GFR, CMP, ESR #### [address] [address] Lymphocyte, Absolute 2.7 10 3/mcL Normal 0.9-4.3 [facility] Comment on above: Performed By: #### C BC, ADIFF, VANCT, ANEU, GFR, CMP, ESR #### [address] [address] Lymphocytes/100 WBC (Bld) 34.8 % Normal 20.0-40.0 [facility] Comment on above: Performed By: #### C BC, ADIFF, VANCT, ANEU, GFR, CMP, ESR #### [address] [address] Monocyte, Absolute 0.7 10 3/mcL Normal 0.1-1.4 [facility] Comment on above: Performed By: #### C BC, ADIFF, VANCT, ANEU, GFR, CMP, ESR #### [address] [address] Monocytes/100 WBC (Bld) 9.6 % Normal 2.0-13.0 [facility] Comment on above: Performed By: #### C BC, ADIFF, VANCT, ANEU, GFR, CMP, ESR #### [address] [address] Neutrophils/100 WBC (Bld) 51.0 % Normal 50.0-75.0 [facility] Comment on above: Performed By: #### C BC, EB, ANNT, ANEU, GFR, CMP, ESR #### [address] [address] .GFRon 02-28-2024 GFR 73 ml/min/1.73sqm [facility] Comment on above: Result Comment: GFR Population mean for , Non- Americans Ages 20-29 = 116 mL/min/1.73 sq.m. Ages 30-39 = 107 mL/min/1.73 sq.m. Ages 40-49 = 99 mL/min/1.73 sq.m. Ages 50-59 = 93 mL/min/1.73 sq.m. Ages 60-69 = 85 mL/min/1.73 sq.m. Ages 70+ = 75 mL/min/1.73 sq.m. Chronic Kidney Disease: Less than 60 mL/min/1.73 square meters End Stage Renal Disease: Less than 15 mL/min/1.73 square meters Performed By: #### C NATI, EB, ANNT, ANEU, GFR, CMP, ESR #### [address] [address] GFR Non- 60 ml/min/1.73sqm [facility] Comment on above: Result Comment: GFR Population mean for , Non- Americans Ages 20-29 = 116 mL/min/1.73 sq.m. Ages 30-39 = 107 mL/min/1.73 sq.m. Ages 40-49 = 99 mL/min/1.73 sq.m. Ages 50-59 = 93 mL/min/1.73 sq.m. Ages 60-69 = 85 mL/min/1.73 sq.m. Ages 70+ = 75 mL/min/1.73 sq.m. Chronic Kidney Disease: Less than 60 mL/min/1.73 square meters End Stage Renal Disease: Less than 15 mL/min/1.73 square meters Performed By: #### C BC, EB, ANNT, ANEU, GFR, CMP, ESR #### [id number] [place], [place] [address] .NEUABSon 02-28-2024 Neutrophil, Absolute 3.9 10 3/mcL Normal 2.3-8.1 [facility] Comment on above: Performed By: #### C BC, ADIFF, VANCT, ANEU, GFR, CMP, ESR #### [address] [address] CBCon 02-28-2024 Erythrocyte distribution width (RBC) [Ratio] 14.7 % Normal 11.5-15.5 [facility] Comment on above: Performed By: #### C BC, ADIFF, VANCT, ANEU, GFR, CMP, ESR #### [id number] Hematocrit (Bld) [Volume fraction] 37.2 % Normal 34.0-46.0 [facility] Comment on above: Performed By: #### C BC, ADIFF, VANCT, ANEU, GFR, CMP, ESR #### [id number] Hgb 12.7 G/dL Normal 12.0-16.0 [facility] Comment on above: Performed By: #### C BC, ADIFF, VANCT, ANEU, GFR, CMP, ESR #### [id number] MCH (RBC) [Entitic mass] 31.4 pg Normal 27.0-33.0 [facility] Comment on above: Performed By: #### C BC, ADIFF, VANCT, ANEU, GFR, CMP, ESR #### [address] MCHC 34.1 G/dL Normal 32.0-36.0 [facility] Comment on above: Performed By: #### C BC, ADIFF, VANCT, ANEU, GFR, CMP, ESR #### [id number] MCV (RBC) [Entitic vol] 92.3 fL Normal 80.0-99.0 [facility] Comment on above: Performed By: #### C BC, ADIFF, VANCT, ANEU, GFR, CMP, ESR #### [address] [address] Platelet 122 10 3/mcL Low 150-450 [facility] Comment on above: Performed By: #### C BC, ADIFF, VANCT, ANEU, GFR, CMP, ESR #### [address] [address] Platelet mean volume (Bld) [Entitic vol] 8.6 fL Normal 6.6-10.5 [facility] Comment on above: Performed By: #### C BC, ADIFF, VANCT, ANEU, GFR, CMP, ESR #### [address] [address] RBC 4.03 10 6/mcL Low 4.10-5.30 [facility] Comment on above: Performed By: #### C BC, ADIFF, VANCT, ANEU, GFR, CMP, ESR #### [id number] WBC 7.7 10 3/mcL Normal 4.5-10.8 [facility] Comment on above: Performed By: #### C BC, ADIFF, VANCT, ANEU, GFR, CMP, ESR #### [address] [address] CMPon 02-28-2024 Albumin Level 3.1 G/dL Low 3.4-4.8 [facility] Comment on above: Performed By: #### C BC, ADIFF, VANCT, ANEU, GFR, CMP, ESR #### [address] [address] Albumin/Globulin [Mass ratio] 0.9 {ratio} Low 1.1-2.5 [facility] Comment on above: Performed By: #### C BC, ADIFF, VANCT, ANEU, GFR, CMP, ESR #### [address] [address] ALP [Catalytic activity/Vol] 83 U/L Normal 40-135 [facility] Comment on above: Performed By: #### C BC, ADIFF, VANCT, ANEU, GFR, CMP, ESR #### [address] [address] ALT [Catalytic activity/Vol] 32 U/L Normal 14-59 [facility] Comment on above: Performed By: #### C BC, ADIFF, VANCT, ANEU, GFR, CMP, ESR #### [address] [address] AST [Catalytic activity/Vol] 33 U/L Normal 10-40 [facility] Comment on above: Performed By: #### C BC, ADIFF, VANCT, ANEU, GFR, CMP, ESR #### [address] [address] Bili Total 0.6 mg/dL Normal 0.2-1.0 [facility] Comment on above: Result Comment: Use of this assay is not recommended for patients undergoing treatment with eltrombopag due to the potential for falsely elevated results. Performed By: #### C BC, ADIFF, VANCT, ANEU, GFR, CMP, ESR #### [address] [address] BUN/Creatinine Ratio 24 ratio Normal 7-27 [facility] Comment on above: Performed By: #### C BC, ADIFF, VANCT, ANEU, GFR, CMP, ESR #### [address] [address] Calcium [Mass/Vol] 10.2 mg/dL Normal 8.4-10.2 [facility] Comment on above: Performed By: #### C BC, ADIFF, VANCT, ANEU, GFR, CMP, ESR #### [address] [address] Chloride [Moles/Vol] 103 mmol/L Normal 98-107 [facility] Comment on above: Performed By: #### C BC, ADIFF, VANCT, ANEU, GFR, CMP, ESR #### [address] [address] CO2 [Moles/Vol] 30 mmol/L Normal 23-31 [facility] Comment on above: Performed By: #### C BC, ADIFF, VANCT, ANEU, GFR, CMP, ESR #### [address] [address] Creatinine [Mass/Vol] 0.93 mg/dL Normal 0.55-1.02 [facility] Comment on above: Result Comment: Test ing performed on Siemens Dimension EXL analyzer using a modified kinetic Gagandeep technique. Performed By: #### C BC, ADIFF, VANCT, ANEU, GFR, CMP, ESR #### [address] [address] Electrolyte Balance 5.0 mEq/L Normal 4.0-15.0 [facility] Comment on above: Performed By: #### C BC, ADIFF, VANCT, ANEU, GFR, CMP, ESR #### [address] [address] Globulin 3.5 G/dL Normal [facility] Comment on above: Performed By: #### C BC, ADIFF, VANCT, ANEU, GFR, CMP, ESR #### [address] [address] Glucose [Mass/Vol] 121 mg/dL High 80-115 [facility] Comment on above: Performed By: #### C BC, ADIFF, VANCT, ANEU, GFR, CMP, ESR #### [address] [address] Potassium [Moles/Vol] 4.1 mmol/L Normal 3.5-5.1 [facility] Comment on above: Performed By: #### C BC, ADIFF, VANCT, ANEU, GFR, CMP, ESR #### [address] [address] Sodium [Moles/Vol] 138 mmol/L Normal 136-145 [facility] Comment on above: Performed By: #### C BC, ADIFF, VANCT, ANEU, GFR, CMP, ESR #### [address] [address] Total Protein 6.6 G/dL Normal 6.4-8.2 [facility] Comment on above: Performed By: #### C BC, ADIFF, VANCT, ANEU, GFR, CMP, ESR #### [id number] [place], [place] [address] Urea nitrogen [Mass/Vol] 22 mg/dL High 7-18 [facility] Comment on above: Performed By: #### C BC, ADIFF, VANCT, ANEU, GFR, CMP, ESR #### [id number] [place], [place] [address] ESRon 02-28-2024 Erythrocyte Sed Rate 41 mm/hr High 0-30 [facility] Comment on above: Performed By: #### C BC, ADIFF, VANCT, ANEU, GFR, CMP, ESR #### [id number] [place], [place] [address] LABORATORYOrdered By: SYSTEM SYSTEM on 02-28-2024 Albumin BCP dye [Mass/Vol] 3.1 G/dL Low 3.4 - 4.8 G/dL AO ADM SS Albumin/Globulin [Mass ratio] 0.9 {ratio} Low 1.1 - 2.5 ratio AO ADM SS ALP [Catalytic activity/Vol] 83 U/L Normal 40 - 135 U/L AO ADM SS ALT With P-5'-P [Catalytic activity/Vol] 32 U/L Normal 14 - 59 U/L AO ADM SS AST With P-5'-P [Catalytic activity/Vol] 33 U/L Normal 10 - 40 U/L AO ADM SS Basophils (Bld) [#/Vol] 0.0 103/mcL Normal 0.0 - 0.2 10^3/mcL AO Workflow SS Basophils/100 WBC (Bld) 0.3 % Normal 0.0 - 2.5 % AO Workflow SS Bilirubin [Mass/Vol] 0.6 mg/dL Normal 0.2 - 1 .0 mg/dL AO ADM SS Comment on above: Interpretive Data: U se of this assay is not recommended for patients undergoing treatment with eltrombopag due to the potential for falsely elevated results. Calcium [Mass/Vol] 10.2 mg/dL Normal 8.4 - 10. 2 mg/dL AO ADM SS Chloride [Moles/Vol] 103 mmol/L Normal 98 - 10 7 mmol/L AO ADM SS CO2 [Moles/Vol] 30 mmol/L Normal 23 - 31 mmol/L AO ADM SS Creatinine [Mass/Vol] 0.93 mg/dL Normal 0.55 - 1.02 mg/dL AO ADM SS Comment on above: Interpretive Data: T esting performed on Siemens Dimension EXL analyzer using a modified kinetic Gagandeep technique. Electrolyte Balance 5.0 mEq/L Normal 4.0 - 15 .0 mEq/L AO ADM SS Eosinophil, Absolute 0.3 103/mcL Normal 0.0 - 0 .7 10^3/mcL AO Workflow SS Eosinophils/100 WBC (Bld) 4.3 % Normal 0.0 - 7.0 % AO Workflow SS Erythrocyte distribution width (RBC) [Ratio] 14.7 % Normal 11.5 - 15.5 % AO Workflow SS GFR/1.73 sq M.predicted among blacks MDRD (S/P/Bld) [Vol rate/Area] 73 ml/min/1.73sqm Invalid Interpretation Code AO Chemistry S Comment on above: Interpretive Data: GFR Population mean for , Non- Americans Ages 20-29 = 116 mL/min/1.73 sq.m. Ages 30-39 = 107 mL/min/1.73 sq.m. Ages 40-49 = 99 mL/min/1.73 sq.m. Ages 50-59 = 93 mL/min/1.73 sq.m. Ages 60-69 = 85 mL/min/1.73 sq.m. Ages 70+ = 75 mL/min/1.73 sq.m. Chronic Kidney Disease: Less than 60 mL/min/1.73 square meters End Stage Renal Disease: Less than 15 mL/min/1.73 square meters GFR/1.73 sq M.predicted among non-blacks MDRD (S/P/Bld) [Vol rate/Area] 60 ml/min/1.73sqm Invalid Interpretation Code AO Chemistry S Comment on above: Interpretive Data: GFR Population mean for , Non- Americans Ages 20-29 = 116 mL/min/1.73 sq.m. Ages 30-39 = 107 mL/min/1.73 sq.m. Ages 40-49 = 99 mL/min/1.73 sq.m. Ages 50-59 = 93 mL/min/1.73 sq.m. Ages 60-69 = 85 mL/min/1.73 sq.m. Ages 70+ = 75 mL/min/1.73 sq.m. Chronic Kidney Disease: Less than 60 mL/min/1.73 square meters End Stage Renal Disease: Less than 15 mL/min/1.73 square meters Globulin 3.5 G/dL Invalid Interpretation Code AO ADM SS Glucose [Mass/Vol] 121 mg/dL High 80 - 115 mg/dL AO ADM SS Hematocrit (Bld) [Volume fraction] 37.2 % Normal 34.0 - 46.0 % AO Workflow SS Hemoglobin (Bld) [Mass/Vol] 12.7 G/dL Normal 12.0 - 16.0 G/dL AO Workflow SS Lymphocytes (Bld) [#/Vol] 2.7 103/mcL Normal 0.9 - 4.3 10^3/mcL AO Workflow SS Lymphocytes/100 WBC (Bld) 34.8 % Normal 20.0 - 40.0 % AO Workflow SS MCH (RBC) [Entitic mass] 31.4 pg Normal 27.0 - 33.0 pg AO Workflow SS MCHC 34.1 G/dL Normal 32.0 - 36.0 G/dL AO Workflow SS MCV (RBC) [Entitic vol] 92.3 fL Normal 80.0 - 99.0 fL AO Workflow SS Monocytes (Bld) [#/Vol] 0.7 103/mcL Normal 0.1 - 1.4 10^3/mcL AO Workflow SS Monocytes/100 WBC (Bld) 9.6 % Normal 2.0 - 13.0 % AO Workflow SS Neutrophils (Bld) [#/Vol] 3.9 103/mcL Normal 2.3 - 8.1 10^3/mcL AO Workflow SS Neutrophils/100 WBC (Bld) 51.0 % Normal 50.0 - 75.0 % AO Workflow SS Platelet mean volume (Bld) [Entitic vol] 8.6 fL Normal 6.6 - 10.5 fL AO Workflow SS Platelets (Bld) [#/Vol] 122 103/mcL Low 150 - 450 10^3/mcL AO Workflow SS Potassium [Moles/Vol] 4.1 mmol/L Normal 3.5 - 5.1 mmol/L AO ADM SS Protein [Mass/Vol] 6.6 G/dL Normal 6.4 - 8.2 G/dL AO ADM SS RBC (Bld) [#/Vol] 4.03 106/mcL Low 4.10 - 5.3 0 10^6/mcL AO Workflow SS Sodium [Moles/Vol] 138 mmol/L Normal 136 - 145 mmol/L AO ADM SS Urea nitrogen [Mass/Vol] 22 mg/dL High 7 - 18 mg/dL AO ADM SS Urea nitrogen/Creatinine [Mass ratio] 24 ratio Normal 7 - 27 ratio AO ADM SS Vancomycin trough [Mass/Vol] 12.7 ug/mL Normal 5.0 - 20.0 mcg/mL AO ADM SS WBC (Bld) [#/Vol] 7.7 103/mcL Normal 4.5 - 10.8 10^3/mcL AO Workflow SS LABORATORYOrdered By: Nevin Vance on 02-28-2024 ESR Photometric method (Bld) [Velocity] 41 mm/hr High 0 - 30 mm/hr AO Man Heme SS LDose Vancomycin:(trough) Unknown (02/28/24 8:58 AM) Normal AO Chemistry S [facility] 02-28-2024 Vancomycin Tr 12.7 mcg/mL Normal 5.0-20.0 [facility] Comment on above: Performed By: #### C BC, ADIFF, VANCT, ANEU, GFR, CMP, ESR #### [address] [address] LDose Vancomycin:(trough) Unknown Normal [facility] Comment on above: Performed By: #### C BC, ADIFF, VANCT, ANEU, GFR, CMP, ESR #### [address] [address] .Auto Diffon 02-20-2024 Basophil, Absolute 0.0 10 3/mcL Normal 0.0-0.2 [facility] Comment on above: Performed By: #### U A #### [address] [address] Basophils/100 WBC (Bld) 0.3 % Normal 0.0-2.5 [facility] Comment on above: Performed By: #### U A #### [address] [address] Eosinophil, Absolute 0.2 10 3/mcL Normal 0.0-0.7 [facility] Comment on above: Performed By: #### U A #### [address] [address] Eosinophils/100 WBC (Bld) 3.4 % Normal 0.0-7.0 [facility] Comment on above: Performed By: #### U A #### [address] [address] Lymphocyte, Absolute 2.5 10 3/mcL Normal 0.9-4.3 [facility] Comment on above: Performed By: #### U A #### [address] [address] Lymphocytes/100 WBC (Bld) 36.7 % Normal 20.0-40.0 [facility] Comment on above: Performed By: #### U A #### [address] [address] Monocyte, Absolute 0.4 10 3/mcL Normal 0.1-1.4 [facility] Comment on above: Performed By: #### U A #### [address] [address] Monocytes/100 WBC (Bld) 6.0 % Normal 2.0-13.0 [facility] Comment on above: Performed By: #### U A #### [address] [address] Neutrophils/100 WBC (Bld) 53.6 % Normal 50.0-75.0 [facility] Comment on above: Performed By: #### U A #### [address] [address] .GFRon 02-20-2024 GFR 77 ml/min/1.73sqm Normal [facility] Comment on above: Result Comment: GFR Population mean for , Non- Americans Ages 20-29 = 116 mL/min/1.73 sq.m. Ages 30-39 = 107 mL/min/1.73 sq.m. Ages 40-49 = 99 mL/min/1.73 sq.m. Ages 50-59 = 93 mL/min/1.73 sq.m. Ages 60-69 = 85 mL/min/1.73 sq.m. Ages 70+ = 75 mL/min/1.73 sq.m. Chronic Kidney Disease: Less than 60 mL/min/1.73 square meters End Stage Renal Disease: Less than 15 mL/min/1.73 square meters Performed By: #### U A #### [address] [address] GFR Non- 64 ml/min/1.73sqm Normal [facility] Comment on above: Result Comment: GFR Population mean for , Non- Americans Ages 20-29 = 116 mL/min/1.73 sq.m. Ages 30-39 = 107 mL/min/1.73 sq.m. Ages 40-49 = 99 mL/min/1.73 sq.m. Ages 50-59 = 93 mL/min/1.73 sq.m. Ages 60-69 = 85 mL/min/1.73 sq.m. Ages 70+ = 75 mL/min/1.73 sq.m. Chronic Kidney Disease: Less than 60 mL/min/1.73 square meters End Stage Renal Disease: Less than 15 mL/min/1.73 square meters Performed By: #### U A #### [address] [address] .NEUABSon 02-20-2024 Neutrophil, Absolute 3.6 10 3/mcL Normal 2.3-8.1 [facility] Comment on above: Performed By: #### U A #### [address] [address] CBCon 02-20-2024 Erythrocyte distribution width (RBC) [Ratio] 14.5 % Normal 11.5-15.5 [facility] Comment on above: Performed By: #### C BC, EB, ANNT, ANEU, GFR, CMP, ESR #### [address] [address] Hematocrit (Bld) [Volume fraction] 36.4 % Normal 34.0-46.0 [facility] Comment on above: Performed By: #### C BC, ADIFF, VANCT, ANEU, GFR, CMP, ESR #### [place] [address] Hgb 12.6 G/dL Normal 12.0-16.0 [facility] Comment on above: Performed By: #### C BC, ADIFF, VANCT, ANEU, GFR, CMP, ESR #### [place] [address] MCH (RBC) [Entitic mass] 31.5 pg Normal 27.0-33.0 [facility] Comment on above: Performed By: #### C BC, ADIFF, VANCT, ANEU, GFR, CMP, ESR #### [place] [address] MCHC 34.5 G/dL Normal 32.0-36.0 [facility] Comment on above: Performed By: #### C BC, ADIFF, VANCT, ANEU, GFR, CMP, ESR #### [place] [address] MCV (RBC) [Entitic vol] 91.3 fL Normal 80.0-99.0 [facility] Comment on above: Performed By: #### C BC, ADIFF, VANCT, ANEU, GFR, CMP, ESR #### [place] [address] Platelet 135 10 3/mcL Low 150-450 [facility] Comment on above: Performed By: #### C BC, ADIFF, VANCT, ANEU, GFR, CMP, ESR #### [address] [address] Platelet mean volume (Bld) [Entitic vol] 8.8 fL Normal 6.6-10.5 [facility] Comment on above: Performed By: #### C BC, ADIFF, VANCT, ANEU, GFR, CMP, ESR #### [place] [address] RBC 3.98 10 6/mcL Low 4.10-5.30 [facility] Comment on above: Performed By: #### C BC, ADIFF, VANCT, ANEU, GFR, CMP, ESR #### [address] [address] WBC 6.7 10 3/mcL Normal 4.5-10.8 [facility] Comment on above: Performed By: #### C BC, ADIFF, VANCT, ANEU, GFR, CMP, ESR #### [address] [address] CMPon 02-20-2024 Albumin Level 3.0 G/dL Low 3.4-4.8 [facility] Comment on above: Performed By: #### U A #### [place] [id number] Albumin/Globulin [Mass ratio] 0.8 {ratio} Low 1.1-2.5 [facility] Comment on above: Performed By: #### U A #### [place] [id number] ALP [Catalytic activity/Vol] 84 U/L Normal 40-135 [facility] Comment on above: Performed By: #### U A #### [place] [address] ALT [Catalytic activity/Vol] 30 U/L Normal 14-59 [facility] Comment on above: Performed By: #### U A #### [place] [id number] AST [Catalytic activity/Vol] 29 U/L Normal 10-40 [facility] Comment on above: Performed By: #### U A #### [place] [id number] Bili Total 0.8 mg/dL Normal 0.2-1.0 [facility] Comment on above: Result Comment: Use of this assay is not recommended for patients undergoing treatment with eltrombopag due to the potential for falsely elevated results. Performed By: #### U A #### [place] [id number] BUN/Creatinine Ratio 15 ratio Normal 7-27 [facility] Comment on above: Performed By: #### U A #### [address] [address] Calcium [Mass/Vol] 10.0 mg/dL Normal 8.4-10.2 [facility] Comment on above: Performed By: #### U A #### [address] [address] Chloride [Moles/Vol] 103 mmol/L Normal 98-107 [facility] Comment on above: Performed By: #### U A #### [place] [address] CO2 [Moles/Vol] 28 mmol/L Normal 23-31 [facility] Comment on above: Performed By: #### U A #### [address] [address] Creatinine [Mass/Vol] 0.88 mg/dL Normal 0.55-1.02 [facility] Comment on above: Result Comment: Test ing performed on Siemens Dimension EXL analyzer using a modified kinetic Gagandeep technique. Performed By: #### U A #### [address] [address] Electrolyte Balance 8.0 mEq/L Normal 4.0-15.0 [facility] Comment on above: Performed By: #### U A #### [address] [address] Globulin 3.6 G/dL Normal [facility] Comment on above: Performed By: #### U A #### [address] [address] Glucose [Mass/Vol] 107 mg/dL Normal 80-115 [facility] Comment on above: Performed By: #### U A #### [address] [address] Potassium [Moles/Vol] 3.7 mmol/L Normal 3.5-5.1 [facility] Comment on above: Performed By: #### U A #### [place] [address] [place], [place] [address] Sodium [Moles/Vol] 139 mmol/L Normal 136-145 [facility] Comment on above: Performed By: #### U A #### [place] [id number] [place], [place] [address] Total Protein 6.6 G/dL Normal 6.4-8.2 [facility] Comment on above: Performed By: #### U A #### [address] [address] Urea nitrogen [Mass/Vol] 13 mg/dL Normal 7-18 [facility] Comment on above: Performed By: #### U A #### [address] [address] ESRon 02-20-2024 Erythrocyte Sed Rate 36 mm/hr High 0-30 [facility] Comment on above: Performed By: #### U A #### [address] [address] LABORATORYOrdered By: SYSTEM SYSTEM on 02-20-2024 Albumin BCP dye [Mass/Vol] 3.0 G/dL Low 3.4 - 4.8 G/dL AO ADM SS Albumin/Globulin [Mass ratio] 0.8 {ratio} Low 1.1 - 2.5 ratio AO ADM SS ALP [Catalytic activity/Vol] 84 U/L Normal 40 - 135 U/L AO ADM SS ALT With P-5'-P [Catalytic activity/Vol] 30 U/L Normal 14 - 59 U/L AO ADM SS AST With P-5'-P [Catalytic activity/Vol] 29 U/L Normal 10 - 40 U/L AO ADM SS Basophils (Bld) [#/Vol] 0.0 103/mcL Normal 0.0 - 0.2 10^3/mcL AO Workflow SS Basophils/100 WBC (Bld) 0.3 % Normal 0.0 - 2.5 % AO Workflow SS Bilirubin [Mass/Vol] 0.8 mg/dL Normal 0.2 - 1 .0 mg/dL AO ADM SS Comment on above: Interpretive Data: U se of this assay is not recommended for patients undergoing treatment with eltrombopag due to the potential for falsely elevated results. Calcium [Mass/Vol] 10.0 mg/dL Normal 8.4 - 10. 2 mg/dL AO ADM SS Chloride [Moles/Vol] 103 mmol/L Normal 98 - 10 7 mmol/L AO ADM SS CO2 [Moles/Vol] 28 mmol/L Normal 23 - 31 mmol/L AO ADM SS Creatinine [Mass/Vol] 0.88 mg/dL Normal 0.55 - 1.02 mg/dL AO ADM SS Comment on above: Interpretive Data: T esting performed on Siemens Dimension EXL analyzer using a modified kinetic Gagandeep technique. Electrolyte Balance 8.0 mEq/L Normal 4.0 - 15 .0 mEq/L AO ADM SS Eosinophil, Absolute 0.2 103/mcL Normal 0.0 - 0 .7 10^3/mcL AO Workflow SS Eosinophils/100 WBC (Bld) 3.4 % Normal 0.0 - 7.0 % AO Workflow SS Erythrocyte distribution width (RBC) [Ratio] 14.5 % Normal 11.5 - 15.5 % AO Workflow SS GFR/1.73 sq M.predicted among blacks MDRD (S/P/Bld) [Vol rate/Area] 77 ml/min/1.73sqm Invalid Interpretation Code AO Chemistry S Comment on above: Interpretive Data: GFR Population mean for , Non- Americans Ages 20-29 = 116 mL/min/1.73 sq.m. Ages 30-39 = 107 mL/min/1.73 sq.m. Ages 40-49 = 99 mL/min/1.73 sq.m. Ages 50-59 = 93 mL/min/1.73 sq.m. Ages 60-69 = 85 mL/min/1.73 sq.m. Ages 70+ = 75 mL/min/1.73 sq.m. Chronic Kidney Disease: Less than 60 mL/min/1.73 square meters End Stage Renal Disease: Less than 15 mL/min/1.73 square meters GFR/1.73 sq M.predicted among non-blacks MDRD (S/P/Bld) [Vol rate/Area] 64 ml/min/1.73sqm Invalid Interpretation Code AO Chemistry S Comment on above: Interpretive Data: GFR Population mean for , Non- Americans Ages 20-29 = 116 mL/min/1.73 sq.m. Ages 30-39 = 107 mL/min/1.73 sq.m. Ages 40-49 = 99 mL/min/1.73 sq.m. Ages 50-59 = 93 mL/min/1.73 sq.m. Ages 60-69 = 85 mL/min/1.73 sq.m. Ages 70+ = 75 mL/min/1.73 sq.m. Chronic Kidney Disease: Less than 60 mL/min/1.73 square meters End Stage Renal Disease: Less than 15 mL/min/1.73 square meters Globulin 3.6 G/dL Invalid Interpretation Code AO ADM SS Glucose [Mass/Vol] 107 mg/dL Normal 80 - 115 mg/dL AO ADM SS Hematocrit (Bld) [Volume fraction] 36.4 % Normal 34.0 - 46.0 % AO Workflow SS Hemoglobin (Bld) [Mass/Vol] 12.6 G/dL Normal 12.0 - 16.0 G/dL AO Workflow SS Lymphocytes (Bld) [#/Vol] 2.5 103/mcL Normal 0.9 - 4.3 10^3/mcL AO Workflow SS Lymphocytes/100 WBC (Bld) 36.7 % Normal 20.0 - 40.0 % AO Workflow SS MCH (RBC) [Entitic mass] 31.5 pg Normal 27.0 - 33.0 pg AO Workflow SS MCHC 34.5 G/dL Normal 32.0 - 36.0 G/dL AO Workflow SS MCV (RBC) [Entitic vol] 91.3 fL Normal 80.0 - 99.0 fL AO Workflow SS Monocytes (Bld) [#/Vol] 0.4 103/mcL Normal 0.1 - 1.4 10^3/mcL AO Workflow SS Monocytes/100 WBC (Bld) 6.0 % Normal 2.0 - 13.0 % AO Workflow SS Neutrophils (Bld) [#/Vol] 3.6 103/mcL Normal 2.3 - 8.1 10^3/mcL AO Workflow SS Neutrophils/100 WBC (Bld) 53.6 % Normal 50.0 - 75.0 % AO Workflow SS Platelet mean volume (Bld) [Entitic vol] 8.8 fL Normal 6.6 - 10.5 fL AO Workflow SS Platelets (Bld) [#/Vol] 135 103/mcL Low 150 - 450 10^3/mcL AO Workflow SS Potassium [Moles/Vol] 3.7 mmol/L Normal 3.5 - 5.1 mmol/L AO ADM SS Protein [Mass/Vol] 6.6 G/dL Normal 6.4 - 8.2 G/dL AO ADM SS RBC (Bld) [#/Vol] 3.98 106/mcL Low 4.10 - 5.3 0 10^6/mcL AO Workflow SS Sodium [Moles/Vol] 139 mmol/L Normal 136 - 145 mmol/L AO ADM SS Urea nitrogen [Mass/Vol] 13 mg/dL Normal 7 - 18 mg/dL AO ADM SS Urea nitrogen/Creatinine [Mass ratio] 15 ratio Normal 7 - 27 ratio AO ADM SS Vancomycin trough [Mass/Vol] 10.7 ug/mL Normal 5.0 - 20.0 mcg/mL AO ADM SS WBC (Bld) [#/Vol] 6.7 103/mcL Normal 4.5 - 10.8 10^3/mcL AO Workflow SS LABORATORYOrdered By: Dagoberto Etienne on 02-20-2024 ESR Photometric method (Bld) [Velocity] 36 mm/hr High 0 - 30 mm/hr AO Man Heme SS LDose Vancomycin:(trough) Unknown (02/20/24 10:53 AM) Normal AO Chemistry S [facility] 02-20-2024 Vancomycin Tr 10.7 mcg/mL Normal 5.0-20.0 [facility] Comment on above: Performed By: #### U A #### [address] [address] LDose Vancomycin:(trough) Unknown Normal [facility] Comment on above: Performed By: #### U A #### [place] [id number] [place], [place] [address] Pulmonary Visit Reporton Pulmonary Visit Report [facility] of [address] [place], [place] [id number] OFFICE VISIT Date of Service: 02/15/24 MR#: [id number] Acct: [id number] Name: GLORIA RODRIGUEZ Óscar Rep #: [id number] : 1955 Provider: ADAM Ruby Age/Sex: 68/F Location: [facility].PMW Status: Signed Assessment and Plan Assessment and Plan (1) MARGARETTE (obstructive sleep apnea): Status: Chronic Plan: No compliance report available for review today. The patient reports that she received a new machine yesterday. She does plan on reestablishing therapy. No indication for a titration study at this time. Follow up in 3 months to evaluate her response to therapy. (2) COPD (chronic obstructive pulmonary disease): Status: Chronic Qualifiers: COPD type: emphysema Emphysema type: centrilobular Qualified Code(s): J43.2 - Centrilobular emphysema Plan: Asymptomatic, not requiring maintenance inhalers at this time. She is not even needing rescue inhaler often. (3) Smoking greater than 20 pack years: Status: Chronic Comment: quit 2022 Plan: Serial imaging per oncology. (4) Morbid (severe) obesity due to excess calories: Status: Chronic Plan: Encourage weight loss. HPI 6 M FU Chief Complaint: Routine follow-up HPI Comments Details: This patient presents to the office today for follow-up of her obstructive sleep apnea. She is in a wheelchair. She has not recently been seen in the ED or urgent care for any respiratory illness. She has not required any antibiotics or prednisone for any breathing problems. She was seen in the ED for abdominal pain, she was diagnosed with UTI and bladder infection. She continued to have pain and through further testing it was discovered she has infection in the spine. 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 She does have shortness of breath on exertion. She has an occasional dry cough. She has occasional wheezing but denies any chest tightness, chest pain or palpitations. She denies any fever, chills or body aches. The patient admits that she has not been compliant with PAP therapy. She states that she was under the impression that the machine was on recall. She states that very recently a truck sales representative from the [employer] checked her machine out and made her aware that the machine was not under recall. She has since started using the machine every night. She states she even uses it with naps. No compliance report available because she has not used it for the last 2 months, it was not working. She got a new machine yesterday. She has not needed to utilize albuterol HFA or in the nebulizer. She has not needed DuoNebs. She continues compliance with Lasix 20 mg daily. She does try to watch her salt intake. She is not currently on supplemental oxygen. Intake Vital Signs 06/21/23 07:47 10/03/23 10:08 12/10/23 10:09 02/15/24 09:23 Height 5 ft 9 in 5 ft 4 in 5 ft 9 in 5 ft 9 in Weight: 309 lb BMI 45.6 BP 114/65 Blood Pressure Location Lt radial Position Sitting Respiration 16 Pulse 75 Pulse Source Monitor Temp 97.1 F L Temperature Source Temporal Artery Pulse Oximetry (%) 96 Oxygen Delivery Method room air Intake Visit Reasons: 6 M FU Chief Complaint: F/U DME Vendor: [employer] Accompanied by: Self Allergies codeine Allergy (Severe, Verified 02/15/24 15:33) MEMORY LOSS egg Allergy (Severe, Verified 02/15/24 15:33) FLU SYMTOPMS, WEEKNESS morphine Allergy (Severe, Verified 02/15/24 15:33) CARDIAC ARREST venom-honey bee (bee venom (honey bee)) Allergy (Severe, Verified 02/15/24 15:33) STOP BREATHING vortioxetine (From Brintellix) Allergy (Severe, Verified 02/15/24 15:33) LEGS FELT ON FIRE calcium carbonate (From Salagen (aspirin)) Allergy (Intermediate, Verified 02/15/24 15:33) PT UNSURE OF REACTION magnesium (From Salagen (aspirin)) Allergy (Intermediate, Verified 02/15/24 15:33) PT UNSURE OF REACTION aspirin Allergy (Unknown, Verified 02/15/24 15:33) Unknown hydrocodone (From Vicodin) Allergy (Unknown, Verified 02/15/24 15:33) [place] DOES NOT REMEMBER hydrocodone bitartrate (From Vicodin) Allergy (Unknown, Verified 02/15/24 15:33) PATIENT DOES NOT REMEMBER Penicillins Allergy (Unknown, Verified 02/15/24 15:33) Hives propoxyphene napsylate (From Darvocet-N 100) Allergy (Unknown, Verified 02/15/24 15:33) [place] DOES NOT REMEMBER Influenza Virus Vaccines Adverse Reaction (Severe, Verified 02/15/24 15:33) DEHYDRATION Medications ???Medication ???Instructions ???Recorded ???Confirmed ???Type albuterol sulfate 90 mcg/actuation 6.7 gm IH Q4H PRN PRN Sob /Or 07/12/13 02/15/24 History aerosol inhaler Wheezing doxepin 25 mg capsule 100 mg PO QHS 01/27/16 02/15/24 History omega-3 fatty acids-fish oil 340 2 each PO BID 01/27/16 02/15/24 History (more content not included)... Normal [facility] .Auto Diffon 02-13-2024 Basophil, Absolute 0.0 10 3/mcL Normal 0.0-0.2 [facility] Comment on above: Performed By: #### C BC, ADIFF, VANCT, ANEU, GFR, CMP, ESR #### [address] [address] Basophils/100 WBC (Bld) 0.3 % Normal 0.0-2.5 [facility] Comment on above: Performed By: #### C BC, ADIFF, VANCT, ANEU, GFR, CMP, ESR #### [address] [address] Eosinophil, Absolute 0.2 10 3/mcL Normal 0.0-0.7 [facility] Comment on above: Performed By: #### C BC, ADIFF, VANCT, ANEU, GFR, CMP, ESR #### [address] [address] Eosinophils/100 WBC (Bld) 2.0 % Normal 0.0-7.0 [facility] Comment on above: Performed By: #### C BC, ADIFF, VANCT, ANEU, GFR, CMP, ESR #### [address] [address] Lymphocyte, Absolute 2.7 10 3/mcL Normal 0.9-4.3 [facility] Comment on above: Performed By: #### C BC, ADIFF, VANCT, ANEU, GFR, CMP, ESR #### [address] [address] Lymphocytes/100 WBC (Bld) 35.5 % Normal 20.0-40.0 [facility] Comment on above: Performed By: #### C BC, ADIFF, VANCT, ANEU, GFR, CMP, ESR #### [place] [address] [place], [place] [address] Monocyte, Absolute 0.6 10 3/mcL Normal 0.1-1.4 [facility] Comment on above: Performed By: #### C BC, ADIFF, VANCT, ANEU, GFR, CMP, ESR #### [place] [address] [place], [place] [address] Monocytes/100 WBC (Bld) 7.9 % Normal 2.0-13.0 [facility] Comment on above: Performed By: #### C BC, ADIFF, VANCT, ANEU, GFR, CMP, ESR #### [address] [address] Neutrophils/100 WBC (Bld) 54.3 % Normal 50.0-75.0 [facility] Comment on above: Performed By: #### C BC, ADIFF, VANCT, ANEU, GFR, CMP, ESR #### [address] [address] .GFRon 02-13-2024 GFR 75 ml/min/1.73sqm Normal [facility] Comment on above: Result Comment: GFR Population mean for , Non- Americans Ages 20-29 = 116 mL/min/1.73 sq.m. Ages 30-39 = 107 mL/min/1.73 sq.m. Ages 40-49 = 99 mL/min/1.73 sq.m. Ages 50-59 = 93 mL/min/1.73 sq.m. Ages 60-69 = 85 mL/min/1.73 sq.m. Ages 70+ = 75 mL/min/1.73 sq.m. Chronic Kidney Disease: Less than 60 mL/min/1.73 square meters End Stage Renal Disease: Less than 15 mL/min/1.73 square meters Performed By: #### C BC, ADIFF, VANCT, ANEU, GFR, CMP, ESR #### [place] [address] [place], [place] [address] GFR Non- 61 ml/min/1.73sqm Normal [facility] Comment on above: Result Comment: GFR Population mean for , Non- Americans Ages 20-29 = 116 mL/min/1.73 sq.m. Ages 30-39 = 107 mL/min/1.73 sq.m. Ages 40-49 = 99 mL/min/1.73 sq.m. Ages 50-59 = 93 mL/min/1.73 sq.m. Ages 60-69 = 85 mL/min/1.73 sq.m. Ages 70+ = 75 mL/min/1.73 sq.m. Chronic Kidney Disease: Less than 60 mL/min/1.73 square meters End Stage Renal Disease: Less than 15 mL/min/1.73 square meters Performed By: #### C BC, ADIFF, VANCT, ANEU, GFR, CMP, ESR #### [place] [id number] .NEUABSon 02-13-2024 Neutrophil, Absolute 4.1 10 3/mcL Normal 2.3-8.1 [facility] Comment on above: Performed By: #### C BC, ADIFF, VANCT, ANEU, GFR, CMP, ESR #### [place] [id number] CBCon 02-13-2024 Erythrocyte distribution width (RBC) [Ratio] 14.4 % Normal 11.5-15.5 [facility] Comment on above: Performed By: #### C BC, ADIFF, VANCT, ANEU, GFR, CMP, ESR #### [place] [id number] Hematocrit (Bld) [Volume fraction] 38.6 % Normal 34.0-46.0 [facility] Comment on above: Performed By: #### C BC, ADIFF, VANCT, ANEU, GFR, CMP, ESR #### [place] [id number] Hgb 13.1 G/dL Normal 12.0-16.0 [facility] Comment on above: Performed By: #### C BC, ADIFF, VANCT, ANEU, GFR, CMP, ESR #### [place] [id number] MCH (RBC) [Entitic mass] 31.5 pg Normal 27.0-33.0 [facility] Comment on above: Performed By: #### C BC, ADIFF, VANCT, ANEU, GFR, CMP, ESR #### [address] [address] MCHC 33.8 G/dL Normal 32.0-36.0 [facility] Comment on above: Performed By: #### C BC, ADIFF, VANCT, ANEU, GFR, CMP, ESR #### [place] [address] MCV (RBC) [Entitic vol] 93.0 fL Normal 80.0-99.0 [facility] Comment on above: Performed By: #### C BC, ADIFF, VANCT, ANEU, GFR, CMP, ESR #### [place] [id number] Platelet 114 10 3/mcL Low 150-450 [facility] Comment on above: Performed By: #### C BC, ADIFF, VANCT, ANEU, GFR, CMP, ESR #### [place] [address] Platelet mean volume (Bld) [Entitic vol] 8.7 fL Normal 6.6-10.5 [facility] Comment on above: Performed By: #### C BC, ADIFF, VANCT, ANEU, GFR, CMP, ESR #### [place] [id number] RBC 4.15 10 6/mcL Normal 4.10-5.30 [facility] Comment on above: Performed By: #### C BC, ADIFF, VANCT, ANEU, GFR, CMP, ESR #### [place] [id number] WBC 7.5 10 3/mcL Normal 4.5-10.8 [facility] Comment on above: Performed By: #### C BC, ADIFF, VANCT, ANEU, GFR, CMP, ESR #### [address] [place] [address] CMPon 02-13-2024 Albumin Level 3.0 G/dL Low 3.4-4.8 [facility] Comment on above: Performed By: #### C BC, ADIFF, VANCT, ANEU, GFR, CMP, ESR #### [place] [address] Albumin/Globulin [Mass ratio] 0.9 {ratio} Low 1.1-2.5 [facility] Comment on above: Performed By: #### C BC, ADIFF, VANCT, ANEU, GFR, CMP, ESR #### [place] [address] ALP [Catalytic activity/Vol] 80 U/L Normal 40-135 [facility] Comment on above: Performed By: #### C BC, ADIFF, VANCT, ANEU, GFR, CMP, ESR #### [place] [address] ALT [Catalytic activity/Vol] 34 U/L Normal 14-59 [facility] Comment on above: Performed By: #### C BC, ADIFF, VANCT, ANEU, GFR, CMP, ESR #### [place] [address] AST [Catalytic activity/Vol] 30 U/L Normal 10-40 [facility] Comment on above: Performed By: #### C BC, ADIFF, VANCT, ANEU, GFR, CMP, ESR #### [place] [id number] Bili Total 0.6 mg/dL Normal 0.2-1.0 [facility] Comment on above: Result Comment: Use of this assay is not recommended for patients undergoing treatment with eltrombopag due to the potential for falsely elevated results. Performed By: #### C BC, ADIFF, VANCT, ANEU, GFR, CMP, ESR #### [place] [address] BUN/Creatinine Ratio 18 ratio Normal 7-27 [facility] Comment on above: Performed By: #### C BC, ADIFF, VANCT, ANEU, GFR, CMP, ESR #### [place] [address] Calcium [Mass/Vol] 9.8 mg/dL Normal 8.4-10.2 [facility] Comment on above: Performed By: #### C BC, ADIFF, VANCT, ANEU, GFR, CMP, ESR #### [place] [address] Chloride [Moles/Vol] 102 mmol/L Normal 98-107 [facility] Comment on above: Performed By: #### C BC, ADIFF, VANCT, ANEU, GFR, CMP, ESR #### [place] [address] CO2 [Moles/Vol] 28 mmol/L Normal 23-31 [facility] Comment on above: Performed By: #### C BC, ADIFF, VANCT, ANEU, GFR, CMP, ESR #### [place] [address] Creatinine [Mass/Vol] 0.91 mg/dL Normal 0.55-1.02 [facility] Comment on above: Result Comment: Test ing performed on Siemens Dimension EXL analyzer using a modified kinetic Gagandeep technique. Performed By: #### C BC, ADIFF, VANCT, ANEU, GFR, CMP, ESR #### [place] [address] Electrolyte Balance 9.0 mEq/L Normal 4.0-15.0 [facility] Comment on above: Performed By: #### C BC, ADIFF, VANCT, ANEU, GFR, CMP, ESR #### [place] [address] Globulin 3.3 G/dL Normal [facility] Comment on above: Performed By: #### C BC, ADIFF, VANCT, ANEU, GFR, CMP, ESR #### [place] [address] Glucose [Mass/Vol] 125 mg/dL High 80-115 [facility] Comment on above: Performed By: #### C BC, ADIFF, VANCT, ANEU, GFR, CMP, ESR #### [place] [address] Potassium [Moles/Vol] 4.1 mmol/L Normal 3.5-5.1 [facility] Comment on above: Performed By: #### C BC, ADIFF, VANCT, ANEU, GFR, CMP, ESR #### [place] [address] Sodium [Moles/Vol] 139 mmol/L Normal 136-145 [facility] Comment on above: Performed By: #### C BC, ADIFF, VANCT, ANEU, GFR, CMP, ESR #### [place] [address] Total Protein 6.3 G/dL Low 6.4-8.2 [facility] Comment on above: Performed By: #### C BC, ADIFF, VANCT, ANEU, GFR, CMP, ESR #### [place] [address] Urea nitrogen [Mass/Vol] 16 mg/dL Normal 7-18 [facility] Comment on above: Performed By: #### C BC, ADIFF, VANCT, ANEU, GFR, CMP, ESR #### [place] [address] CRPon 02-13-2024 C-Reactive Protein 0.2 mg/dL Normal 0.0-0.3 [facility] Comment on above: Performed By: #### C BC, ADIFF, VANCT, ANEU, GFR, CMP, ESR #### [place] [address] ESRon 02-13-2024 Erythrocyte Sed Rate 33 mm/hr High 0-30 [facility] Comment on above: Performed By: #### C BC, ADIFF, VANCT, ANEU, GFR, CMP, ESR #### [place] [address] LABORATORYOrdered By: SYSTEM SYSTEM on 02-13-2024 Albumin BCP dye [Mass/Vol] 3.0 G/dL Low 3.4 - 4.8 G/dL AO ADM SS Albumin/Globulin [Mass ratio] 0.9 {ratio} Low 1.1 - 2.5 ratio AO ADM SS ALP [Catalytic activity/Vol] 80 U/L Normal 40 - 135 U/L AO ADM SS ALT With P-5'-P [Catalytic activity/Vol] 34 U/L Normal 14 - 59 U/L AO ADM SS AST With P-5'-P [Catalytic activity/Vol] 30 U/L Normal 10 - 40 U/L AO ADM SS Basophils (Bld) [#/Vol] 0.0 103/mcL Normal 0.0 - 0.2 10^3/mcL AO Workflow SS Basophils/100 WBC (Bld) 0.3 % Normal 0.0 - 2.5 % AO Workflow SS Bilirubin [Mass/Vol] 0.6 mg/dL Normal 0.2 - 1 .0 mg/dL AO ADM SS Comment on above: Interpretive Data: U se of this assay is not recommended for patients undergoing treatment with eltrombopag due to the potential for falsely elevated results. Calcium [Mass/Vol] 9.8 mg/dL Normal 8.4 - 10. 2 mg/dL AO ADM SS Chloride [Moles/Vol] 102 mmol/L Normal 98 - 10 7 mmol/L AO ADM SS CO2 [Moles/Vol] 28 mmol/L Normal 23 - 31 mmol/L AO ADM SS Creatinine [Mass/Vol] 0.91 mg/dL Normal 0.55 - 1.02 mg/dL AO ADM SS Comment on above: Interpretive Data: T esting performed on Siemens Dimension EXL analyzer using a modified kinetic Gagandeep technique. CRP [Mass/Vol] 0.2 mg/dL Normal 0.0 - 0.3 mg/dL AO ADM SS Electrolyte Balance 9.0 mEq/L Normal 4.0 - 15 .0 mEq/L AO ADM SS Eosinophil, Absolute 0.2 103/mcL Normal 0.0 - 0 .7 10^3/mcL AO Workflow SS Eosinophils/100 WBC (Bld) 2.0 % Normal 0.0 - 7.0 % AO Workflow SS Erythrocyte distribution width (RBC) [Ratio] 14.4 % Normal 11.5 - 15.5 % AO Workflow SS GFR/1.73 sq M.predicted among blacks MDRD (S/P/Bld) [Vol rate/Area] 75 ml/min/1.73sqm Invalid Interpretation Code AO Chemistry S Comment on above: Interpretive Data: GFR Population mean for , Non- Americans Ages 20-29 = 116 mL/min/1.73 sq.m. Ages 30-39 = 107 mL/min/1.73 sq.m. Ages 40-49 = 99 mL/min/1.73 sq.m. Ages 50-59 = 93 mL/min/1.73 sq.m. Ages 60-69 = 85 mL/min/1.73 sq.m. Ages 70+ = 75 mL/min/1.73 sq.m. Chronic Kidney Disease: Less than 60 mL/min/1.73 square meters End Stage Renal Disease: Less than 15 mL/min/1.73 square meters GFR/1.73 sq M.predicted among non-blacks MDRD (S/P/Bld) [Vol rate/Area] 61 ml/min/1.73sqm Invalid Interpretation Code AO Chemistry S Comment on above: Interpretive Data: GFR Population mean for , Non- Americans Ages 20-29 = 116 mL/min/1.73 sq.m. Ages 30-39 = 107 mL/min/1.73 sq.m. Ages 40-49 = 99 mL/min/1.73 sq.m. Ages 50-59 = 93 mL/min/1.73 sq.m. Ages 60-69 = 85 mL/min/1.73 sq.m. Ages 70+ = 75 mL/min/1.73 sq.m. Chronic Kidney Disease: Less than 60 mL/min/1.73 square meters End Stage Renal Disease: Less than 15 mL/min/1.73 square meters Globulin 3.3 G/dL Invalid Interpretation Code AO ADM SS Glucose [Mass/Vol] 125 mg/dL High 80 - 115 mg/dL AO ADM SS Hematocrit (Bld) [Volume fraction] 38.6 % Normal 34.0 - 46.0 % AO Workflow SS Hemoglobin (Bld) [Mass/Vol] 13.1 G/dL Normal 12.0 - 16.0 G/dL AO Workflow SS Lymphocytes (Bld) [#/Vol] 2.7 103/mcL Normal 0.9 - 4.3 10^3/mcL AO Workflow SS Lymphocytes/100 WBC (Bld) 35.5 % Normal 20.0 - 40.0 % AO Workflow SS [facility] (RBC) [Entitic mass] 31.5 pg Normal 27.0 - 33.0 pg AO Workflow SS MCHC 33.8 G/dL Normal 32.0 - 36.0 G/dL AO Workflow SS MCV (RBC) [Entitic vol] 93.0 fL Normal 80.0 - 99.0 fL AO Workflow SS Monocytes (Bld) [#/Vol] 0.6 103/mcL Normal 0.1 - 1.4 10^3/mcL AO Workflow SS Monocytes/100 WBC (Bld) 7.9 % Normal 2.0 - 13.0 % AO Workflow SS Neutrophils (Bld) [#/Vol] 4.1 103/mcL Normal 2.3 - 8.1 10^3/mcL AO Workflow SS Neutrophils/100 WBC (Bld) 54.3 % Normal 50.0 - 75.0 % AO Workflow SS Platelet mean volume (Bld) [Entitic vol] 8.7 fL Normal 6.6 - 10.5 fL AO Workflow SS Platelets (Bld) [#/Vol] 114 103/mcL Low 150 - 450 10^3/mcL AO Workflow SS Potassium [Moles/Vol] 4.1 mmol/L Normal 3.5 - 5.1 mmol/L AO ADM SS Protein [Mass/Vol] 6.3 G/dL Low 6.4 - 8.2 G/dL AO ADM SS RBC (Bld) [#/Vol] 4.15 106/mcL Normal 4.10 - 5.3 0 10^6/mcL AO Workflow SS Sodium [Moles/Vol] 139 mmol/L Normal 136 - 145 mmol/L AO ADM SS Urea nitrogen [Mass/Vol] 16 mg/dL Normal 7 - 18 mg/dL AO ADM SS Urea nitrogen/Creatinine [Mass ratio] 18 ratio Normal 7 - 27 ratio AO ADM SS Vancomycin [Mass/Vol] 13 mcg/mL Invalid Interpretation Code AO ADM SS Comment on above: Interpretive Data: N o normal reference range reported for random vancomycin testing. WBC (Bld) [#/Vol] 7.5 103/mcL Normal 4.5 - 10.8 10^3/mcL AO Workflow SS LABORATORYOrdered By: Dagoberto Etienne on 02-13-2024 ESR Photometric method (Bld) [Velocity] 33 mm/hr High 0 - 30 mm/hr AO Man Heme SS LDose Vancomycin: (random) Unknown (02/13/24 9:12 AM) Normal AO Chemistry S VANCRon 02-13-2024 Vancomycin Lvl (random) 13 mcg/mL Normal [facility] Comment on above: Result Comment: No n ormal reference range reported for random vancomycin testing. Performed By: #### C BC, ADIFF, VANCT, ANEU, GFR, CMP, ESR #### [id number] [place], [place] [address] LDose Vancomycin: (random) Unknown Normal [facility] Comment on above: Performed By: #### C BC, ADIFF, VANCT, ANEU, GFR, CMP, ESR #### [id number] [place], [place] [address] .Auto Diffon 02-10-2024 Basophil, Absolute 0.0 10 3/mcL Normal 0.0-0.3 [facility] Comment on above: Performed By: #### A DIFF, ANEU, CMP, GFR, CBC, MG ####[address] [address] Basophils/100 WBC (Bld) 0.3 % Normal 0.0-2.5 [facility] Comment on above: Performed By: #### A DIFF, ANEU, CMP, GFR, CBC, MG ####[address] [address] Eosinophil, Absolute 0.1 10 3/mcL Normal 0.0-0.7 [facility] Comment on above: Performed By: #### A DIFF, ANEU, CMP, GFR, CBC, MG ####[address] [address] Eosinophils/100 WBC (Bld) 2.2 % Normal 0.0-6.0 [facility] Comment on above: Performed By: #### A DIFF, ANEU, CMP, GFR, CBC, MG ####[address] [address] Lymphocyte, Absolute 2.5 10 3/mcL Normal 0.9-4.3 [facility] Comment on above: Performed By: #### A DIFF, ANEU, CMP, GFR, CBC, MG ####[address] [address] Lymphocytes/100 WBC (Bld) 39.6 % Normal 20.0-40.0 [facility] Comment on above: Performed By: #### A DIFF, ANEU, CMP, GFR, CBC, MG ####[address] [address] Monocyte, Absolute 0.6 10 3/mcL Normal 0.1-1.4 [facility] Comment on above: Performed By: #### A DIFF, ANEU, CMP, GFR, CBC, MG ####[address] [address] Monocytes/100 WBC (Bld) 9.0 % Normal 2.0-13.0 [facility] Comment on above: Performed By: #### A DIFF, ANEU, CMP, GFR, CBC, MG ####[address] [address] Neutrophils/100 WBC (Bld) 48.9 % Low 50.0-75.0 [facility] Comment on above: Performed By: #### A DIFF, ANEU, CMP, GFR, CBC, MG ####[address] [address] .GFRon 02-10-2024 GFR Non- >60 Normal [facility] Comment on above: Result Comment: GFR Population mean for , Non- Americans Ages 20-29 = 116 mL/min/1.73 sq.m. Ages 30-39 = 107 mL/min/1.73 sq.m. Ages 40-49 = 99 mL/min/1.73 sq.m. Ages 50-59 = 93 mL/min/1.73 sq.m. Ages 60-69 = 85 mL/min/1.73 sq.m. Ages 70+ = 75 mL/min/1.73 sq.m. Chronic Kidney Disease: Less than 60 mL/min/1.73 square meters End Stage Renal Disease: Less than 15 mL/min/1.73 square meters Performed By: #### A DIFF, ANEU, CMP, GFR, CBC, MG ####[address] [address] GFR >60 Normal [facility] Comment on above: Result Comment: GFR Population mean for , Non- Americans Ages 20-29 = 116 mL/min/1.73 sq.m. Ages 30-39 = 107 mL/min/1.73 sq.m. Ages 40-49 = 99 mL/min/1.73 sq.m. Ages 50-59 = 93 mL/min/1.73 sq.m. Ages 60-69 = 85 mL/min/1.73 sq.m. Ages 70+ = 75 mL/min/1.73 sq.m. Chronic Kidney Disease: Less than 60 mL/min/1.73 square meters End Stage Renal Disease: Less than 15 mL/min/1.73 square meters Performed By: #### A DIFF, ANEU, CMP, GFR, CBC, MG ####[address] [address] .NEUABSon 02-10-2024 Neutrophil, Absolute 3.0 10 3/mcL Normal 2.3-8.1 [facility] Comment on above: Performed By: #### A DIFF, ANEU, CMP, GFR, CBC, MG ####[address] [address] CBCon 02-10-2024 Erythrocyte distribution width (RBC) [Ratio] 14.1 % Normal 11.5-15.5 [facility] Comment on above: Performed By: #### A DIFF, ANEU, CMP, GFR, CBC, MG ####[address] [address] Hematocrit (Bld) [Volume fraction] 38.7 % Normal 34.0-46.0 [facility] Comment on above: Performed By: #### A DIFF, ANEU, CMP, GFR, CBC, MG ####[address] [address] Hgb 12.9 G/dL Normal 12.0-16.0 [facility] Comment on above: Performed By: #### A DIFF, ANEU, CMP, GFR, CBC, MG ####[address] [address] MCH (RBC) [Entitic mass] 30.9 pg Normal 27.0-33.0 [facility] Comment on above: Performed By: #### A DIFF, ANEU, CMP, GFR, CBC, MG ####[address] [place] [address] MCHC 33.5 G/dL Normal 32.0-36.0 [facility] Comment on above: Performed By: #### A DIFF, ANEU, CMP, GFR, CBC, MG ####[address] [address] MCV (RBC) [Entitic vol] 92.2 fL Normal 80.0-99.0 [facility] Comment on above: Performed By: #### A DIFF, ANEU, CMP, GFR, CBC, MG ####[address] [place] [address] Platelet 101 10 3/mcL Low 150-450 [facility] Comment on above: Performed By: #### A DIFF, ANEU, CMP, GFR, CBC, MG ####[address] [place] [address] Platelet mean volume (Bld) [Entitic vol] 8.6 fL Normal 6.6-10.5 [facility] Comment on above: Performed By: #### A DIFF, ANEU, CMP, GFR, CBC, MG ####[address] [address] RBC 4.19 10 6/mcL Normal 4.10-5.30 [facility] Comment on above: Performed By: #### A DIFF, ANEU, CMP, GFR, CBC, MG ####[address] [address] WBC 6.2 10 3/mcL Normal 4.5-10.8 [facility] Comment on above: Performed By: #### A DIFF, ANEU, CMP, GFR, CBC, MG ####[address] [place] [address] CMPon 02-10-2024 Albumin Level 2.8 G/dL Low 3.2-4.8 [facility] Comment on above: Performed By: #### A DIFF, ANEU, CMP, GFR, CBC, MG ####[address] [address] Albumin/Globulin [Mass ratio] 0.8 {ratio} Low 0.9-1.6 [facility] Comment on above: Performed By: #### A DIFF, ANEU, CMP, GFR, CBC, MG ####[address] [address] ALP [Catalytic activity/Vol] 72 U/L Normal 38-126 [facility] Comment on above: Performed By: #### A DIFF, ANEU, CMP, GFR, CBC, MG ####[address] [address] ALT [Catalytic activity/Vol] 30 U/L Normal 10-49 [facility] Comment on above: Performed By: #### A DIFF, ANEU, CMP, GFR, CBC, MG ####[address] [address] AST [Catalytic activity/Vol] 37 U/L High 8-34 [facility] Comment on above: Performed By: #### A DIFF, ANEU, CMP, GFR, CBC, MG ####[address] [address] Bili Total 0.60 mg/dL Normal 0.20-1.20 [facility] Comment on above: Result Comment: Use of this assay is not recommended for patients undergoing treatment with eltrombopag due to the potential for falsely elevated results. Performed By: #### A DIFF, ANEU, CMP, GFR, CBC, MG ####[address] [address] BUN/Creatinine Ratio 24.1 ratio High 10.0-22.0 [facility] Comment on above: Performed By: #### A DIFF, ANEU, CMP, GFR, CBC, MG ####[address] [address] Calcium [Mass/Vol] 10.3 mg/dL Normal 8.7-10.4 [facility] Comment on above: Performed By: #### A DIFF, ANEU, CMP, GFR, CBC, MG ####[address] [address] Chloride [Moles/Vol] 106 mmol/L Normal 98-110 [facility] Comment on above: Performed By: #### A DIFF, ANEU, CMP, GFR, CBC, MG ####[address] [address] CO2 [Moles/Vol] 28 mmol/L Normal 22-32 [facility] Comment on above: Performed By: #### A DIFF, ANEU, CMP, GFR, CBC, MG ####[address] [address] Creatinine [Mass/Vol] 0.79 mg/dL Normal 0.50-1.20 [facility] Comment on above: Result Comment: Test ing performed on [employer] analyzer using enzymatic creatinine methodology. Performed By: #### A DIFF, ANEU, CMP, GFR, CBC, MG ####[address] [address] Electrolyte Balance 7.0 mEq/L Normal 4.0-15.0 [facility] Comment on above: Performed By: #### A DIFF, ANEU, CMP, GFR, CBC, MG ####[address] [address] Globulin 3.5 G/dL Normal 1.5-3.8 [facility] Comment on above: Performed By: #### A DIFF, ANEU, CMP, GFR, CBC, MG ####[address] [address] Glucose [Mass/Vol] 128 mg/dL High 82-115 [facility] Comment on above: Performed By: #### A DIFF, ANEU, CMP, GFR, CBC, MG ####[address] [address] Potassium [Moles/Vol] 4.0 mmol/L Normal 3.5-5.0 [facility] Comment on above: Performed By: #### A DIFF, ANEU, CMP, GFR, CBC, MG ####[address] [address] Sodium [Moles/Vol] 141 mmol/L Normal 136-145 [facility] Comment on above: Performed By: #### A DIFF, ANEU, CMP, GFR, CBC, MG ####[facility] [place] [address] Total Protein 6.3 G/dL Normal 5.7-8.2 [facility] Comment on above: Performed By: #### A DIFF, ANEU, CMP, GFR, CBC, MG ####[facility] [place] [address] Urea nitrogen [Mass/Vol] 19.0 mg/dL Normal 8.0-22.0 [facility] Comment on above: Performed By: #### A DIFF, ANEU, CMP, GFR, CBC, MG ####[facility] [place] [address] LABORATORYOrdered By: Emi delgadillo on 02-10-2024 Glucose [Mass/Vol] 151 mg/dL High 82 - 115 mg/dL [facility] LABORATORYOrdered By: Lenora Sal on 02-10-2024 Glucose [Mass/Vol] 121 mg/dL High 82 - 115 mg/dL [facility] LABORATORYOrdered By: Rhonda Flores on 02-10-2024 Glucose [Mass/Vol] 152 mg/dL High 82 - 115 mg/dL [facility] LABORATORYOrdered By: SYSTEM SYSTEM on 02-10-2024 Albumin BCP dye [Mass/Vol] 2.8 G/dL Low 3.2 - 4.8 G/dL ADM SS Albumin/Globulin [Mass ratio] 0.8 {ratio} Low 0.9 - 1.6 ratio ADM SS ALP [Catalytic activity/Vol] 72 U/L Normal 38 - 126 U/L ADM SS ALT No additional P-5'-P [Catalytic activity/Vol] 30 U/L Normal 10 - 49 U/L ADM SS AST [Catalytic activity/Vol] 37 U/L High 8 - 34 U/L ADM SS Basophils (Bld) [#/Vol] 0.0 103/mcL Normal 0.0 - 0.3 10^3/mcL Workflow SS Basophils/100 WBC (Bld) 0.3 % Normal 0.0 - 2.5 % Workflow SS Bilirubin [Mass/Vol] 0.60 mg/dL Normal 0.20 - 1.20 mg/dL ADM SS Comment on above: Interpretive Data: U se of this assay is not recommended for patients undergoing treatment with eltrombopag due to the potential for falsely elevated results. Calcium [Mass/Vol] 10.3 mg/dL Normal 8.7 - 10. 4 mg/dL ADM SS Chloride [Moles/Vol] 106 mmol/L Normal 98 - 11 0 mEq/L ADM SS CO2 [Moles/Vol] 28 mmol/L Normal 22 - 32 mEq/L ADM SS Creatinine [Mass/Vol] 0.79 mg/dL Normal 0.50 - 1.20 mg/dL ADM SS Comment on above: Interpretive Data: T esting performed on [employer] analyzer using enzymatic creatinine methodology. Electrolyte Balance 7.0 mEq/L Normal 4.0 - 15 .0 mEq/L ADM SS Eosinophils (Bld) [#/Vol] 0.1 103/mcL Normal 0.0 - 0.7 10^3/mcL Workflow SS Eosinophils/100 WBC (Bld) 2.2 % Normal 0.0 - 6.0 % Workflow SS Erythrocyte distribution width (RBC) [Ratio] 14.1 % Normal 11.5 - 15.5 % Workflow SS GFR/1.73 sq M.predicted among blacks MDRD (S/P/Bld) [Vol rate/Area] ml/min/1.73sqm Invalid Interpretation Code Chemistry S Comment on above: Interpretive Data: GFR Population mean for , Non- Americans Ages 20-29 = 116 mL/min/1.73 sq.m. Ages 30-39 = 107 mL/min/1.73 sq.m. Ages 40-49 = 99 mL/min/1.73 sq.m. Ages 50-59 = 93 mL/min/1.73 sq.m. Ages 60-69 = 85 mL/min/1.73 sq.m. Ages 70+ = 75 mL/min/1.73 sq.m. Chronic Kidney Disease: Less than 60 mL/min/1.73 square meters End Stage Renal Disease: Less than 15 mL/min/1.73 square meters GFR/1.73 sq M.predicted among non-blacks MDRD (S/P/Bld) [Vol rate/Area] ml/min/1.73sqm Invalid Interpretation Code Chemistry S Comment on above: Interpretive Data: GFR Population mean for , Non- Americans Ages 20-29 = 116 mL/min/1.73 sq.m. Ages 30-39 = 107 mL/min/1.73 sq.m. Ages 40-49 = 99 mL/min/1.73 sq.m. Ages 50-59 = 93 mL/min/1.73 sq.m. Ages 60-69 = 85 mL/min/1.73 sq.m. Ages 70+ = 75 mL/min/1.73 sq.m. Chronic Kidney Disease: Less than 60 mL/min/1.73 square meters End Stage Renal Disease: Less than 15 mL/min/1.73 square meters Globulin 3.5 G/dL Normal 1.5 - 3.8 G/dL ADM SS Glucose [Mass/Vol] 128 mg/dL High 82 - 115 mg/dL ADM SS Hematocrit (Bld) [Volume fraction] 38.7 % Normal 34.0 - 46.0 % Workflow SS Hemoglobin (Bld) [Mass/Vol] 12.9 G/dL Normal 12.0 - 16.0 G/dL AH Workflow SS Lymphocytes (Bld) [#/Vol] 2.5 103/mcL Normal 0.9 - 4.3 10^3/mcL AH Workflow SS Lymphocytes/100 WBC (Bld) 39.6 % Normal 20.0 - 40.0 % AH Workflow SS Magnesium [Mass/Vol] 1.7 mg/dL Normal 1.6 - 2 .4 mg/dL ADM SS MCH (RBC) [Entitic mass] 30.9 pg Normal 27.0 - 33.0 pg AH Workflow SS MCHC 33.5 G/dL Normal 32.0 - 36.0 G/dL Workflow SS MCV (RBC) [Entitic vol] 92.2 fL Normal 80.0 - 99.0 fL Workflow SS Monocytes (Bld) [#/Vol] 0.6 103/mcL Normal 0.1 - 1.4 10^3/mcL AH Workflow SS Monocytes/100 WBC (Bld) 9.0 % Normal 2.0 - 13.0 % AH Workflow SS Neutrophils (Bld) [#/Vol] 3.0 103/mcL Normal 2.3 - 8.1 10^3/mcL Workflow SS Neutrophils/100 WBC (Bld) 48.9 % Low 50.0 - 75.0 % Workflow SS Platelet mean volume (Bld) [Entitic vol] 8.6 fL Normal 6.6 - 10.5 fL Workflow SS Platelets (Bld) [#/Vol] 101 103/mcL Low 150 - 450 10^3/mcL AH Workflow SS Potassium [Moles/Vol] 4.0 mmol/L Normal 3.5 - 5.0 mEq/L ADM SS Protein [Mass/Vol] 6.3 G/dL Normal 5.7 - 8.2 G/dL ADM SS RBC (Bld) [#/Vol] 4.19 106/mcL Normal 4.10 - 5.3 0 10^6/mcL Workflow SS Sodium [Moles/Vol] 141 mmol/L Normal 136 - 145 mEq/L ADM SS Urea nitrogen [Mass/Vol] 19.0 mg/dL Normal 8.0 - 22.0 mg/dL ADM SS Urea nitrogen/Creatinine [Mass ratio] 24.1 ratio High 10.0 - 22.0 ratio ADM SS WBC (Bld) [#/Vol] 6.2 103/mcL Normal 4.5 - 10.8 10^3/mcL Workflow SS MGon 02-10-2024 Magnesium [Mass/Vol] 1.7 mg/dL Normal 1.6-2.4 [facility] Comment on above: Performed By: #### A DIFF, ANEU, CMP, GFR, CBC, MG ####[address] [address] .Auto Diffon 02-09-2024 Basophil, Absolute 0.0 10 3/mcL Normal 0.0-0.3 [facility] Comment on above: Performed By: #### A DIFF, BMP, ANEU, CBC, GFR ####[address] [address] Basophils/100 WBC (Bld) 0.3 % Normal 0.0-2.5 [facility] Comment on above: Performed By: #### A DIFF, BMP, ANEU, CBC, GFR ####[address] [address] Eosinophil, Absolute 0.1 10 3/mcL Normal 0.0-0.7 [facility] Comment on above: Performed By: #### A DIFF, BMP, ANEU, CBC, GFR ####[address] [address] Eosinophils/100 WBC (Bld) 2.0 % Normal 0.0-6.0 [facility] Comment on above: Performed By: #### A DIFF, BMP, ANEU, CBC, GFR ####[address] [address] Lymphocyte, Absolute 2.2 10 3/mcL Normal 0.9-4.3 [facility] Comment on above: Performed By: #### A DIFF, BMP, ANEU, CBC, GFR ####[address] [address] Lymphocytes/100 WBC (Bld) 36.2 % Normal 20.0-40.0 [facility] Comment on above: Performed By: #### A DIFF, BMP, ANEU, CBC, GFR ####[address] [address] Monocyte, Absolute 0.5 10 3/mcL Normal 0.1-1.4 [facility] Comment on above: Performed By: #### A DIFF, BMP, ANEU, CBC, GFR ####[address] [address] Monocytes/100 WBC (Bld) 8.7 % Normal 2.0-13.0 [facility] Comment on above: Performed By: #### A DIFF, BMP, ANEU, CBC, GFR ####[address] [address] Neutrophils/100 WBC (Bld) 52.8 % Normal 50.0-75.0 [facility] Comment on above: Performed By: #### A DIFF, BMP, ANEU, CBC, GFR ####[address] [address] .GFRon 02-09-2024 GFR >60 Normal [facility] Comment on above: Result Comment: GFR Population mean for , Non- Americans Ages 20-29 = 116 mL/min/1.73 sq.m. Ages 30-39 = 107 mL/min/1.73 sq.m. Ages 40-49 = 99 mL/min/1.73 sq.m. Ages 50-59 = 93 mL/min/1.73 sq.m. Ages 60-69 = 85 mL/min/1.73 sq.m. Ages 70+ = 75 mL/min/1.73 sq.m. Chronic Kidney Disease: Less than 60 mL/min/1.73 square meters End Stage Renal Disease: Less than 15 mL/min/1.73 square meters Performed By: #### A DIFF, BMP, ANEU, CBC, GFR ####[place] [place] [address] GFR Non- >60 Normal [facility] Comment on above: Result Comment: GFR Population mean for , Non- Americans Ages 20-29 = 116 mL/min/1.73 sq.m. Ages 30-39 = 107 mL/min/1.73 sq.m. Ages 40-49 = 99 mL/min/1.73 sq.m. Ages 50-59 = 93 mL/min/1.73 sq.m. Ages 60-69 = 85 mL/min/1.73 sq.m. Ages 70+ = 75 mL/min/1.73 sq.m. Chronic Kidney Disease: Less than 60 mL/min/1.73 square meters End Stage Renal Disease: Less than 15 mL/min/1.73 square meters Performed By: #### A DIFF, BMP, ANEU, CBC, GFR ####[address] [address] .NEUABSon 02-09-2024 Neutrophil, Absolute 3.2 10 3/mcL Normal 2.3-8.1 [facility] Comment on above: Performed By: #### A DIFF, BMP, ANEU, CBC, GFR ####[address] [address] BMPon 02-09-2024 BUN/Creatinine Ratio 24.3 ratio High 10.0-22.0 [facility] Comment on above: Performed By: #### A DIFF, BMP, ANEU, CBC, GFR ####[address] [address] Calcium [Mass/Vol] 10.3 mg/dL Normal 8.7-10.4 [facility] Comment on above: Performed By: #### A DIFF, BMP, ANEU, CBC, GFR ####[address] [address] Chloride [Moles/Vol] 105 mmol/L Normal 98-110 [facility] Comment on above: Performed By: #### A DIFF, BMP, ANEU, CBC, GFR ####[address] [address] CO2 [Moles/Vol] 28 mmol/L Normal 22-32 [facility] Comment on above: Performed By: #### A DIFF, BMP, ANEU, CBC, GFR ####[address] [address] Creatinine [Mass/Vol] 0.74 mg/dL Normal 0.50-1.20 [facility] Comment on above: Result Comment: Test ing performed on [employer] analyzer using enzymatic creatinine methodology. Performed By: #### A DIFF, BMP, ANEU, CBC, GFR ####[address] [address] Electrolyte Balance 6.0 mEq/L Normal 4.0-15.0 [facility] Comment on above: Performed By: #### A DIFF, BMP, ANEU, CBC, GFR ####[address] [address] Glucose [Mass/Vol] 126 mg/dL High 82-115 [facility] Comment on above: Performed By: #### A DIFF, BMP, ANEU, CBC, GFR ####[address] [address] Potassium [Moles/Vol] 4.3 mmol/L Normal 3.5-5.0 [facility] Comment on above: Performed By: #### A DIFF, BMP, ANEU, CBC, GFR ####[address] [address] Sodium [Moles/Vol] 139 mmol/L Normal 136-145 [facility] Comment on above: Performed By: #### A DIFF, BMP, ANEU, CBC, GFR ####[place] [address] Urea nitrogen [Mass/Vol] 18.0 mg/dL Normal 8.0-22.0 [facility] Comment on above: Performed By: #### A DIFF, BMP, ANEU, CBC, GFR ####[place] [address] CBCon 02-09-2024 Erythrocyte distribution width (RBC) [Ratio] 14.6 % Normal 11.5-15.5 [facility] Comment on above: Performed By: #### A DIFF, BMP, ANEU, CBC, GFR ####[place] [address] Hematocrit (Bld) [Volume fraction] 40.1 % Normal 34.0-46.0 [facility] Comment on above: Performed By: #### A DIFF, BMP, ANEU, CBC, GFR ####[place] [address] Hgb 13.4 G/dL Normal 12.0-16.0 [facility] Comment on above: Performed By: #### A DIFF, BMP, ANEU, CBC, GFR ####[place] [address] MCH (RBC) [Entitic mass] 31.1 pg Normal 27.0-33.0 [facility] Comment on above: Performed By: #### A DIFF, BMP, ANEU, CBC, GFR ####[place] [address] MCHC 33.5 G/dL Normal 32.0-36.0 [facility] Comment on above: Performed By: #### A DIFF, BMP, ANEU, CBC, GFR ####[place] [address] MCV (RBC) [Entitic vol] 92.9 fL Normal 80.0-99.0 [facility] Comment on above: Performed By: #### A DIFF, BMP, ANEU, CBC, GFR ####[place] [address] Platelet 106 10 3/mcL Low 150-450 [facility] Comment on above: Performed By: #### A DIFF, BMP, ANEU, CBC, GFR ####[place] [id number] [place] [address] Platelet mean volume (Bld) [Entitic vol] 8.4 fL Normal 6.6-10.5 [facility] Comment on above: Performed By: #### A DIFF, BMP, ANEU, CBC, GFR ####[place] [address] [place] [address] RBC 4.31 10 6/mcL Normal 4.10-5.30 [facility] Comment on above: Performed By: #### A DIFF, BMP, ANEU, CBC, GFR ####[place] [id number] [place] [address] WBC 6.1 10 3/mcL Normal 4.5-10.8 [facility] Comment on above: Performed By: #### A DIFF, BMP, ANEU, CBC, GFR ####[place] [id number] LABORATORYOrdered By: Shawna Ovalles on 02-09-2024 Blood Glucose Testing Reason Routine (02/09/24 11:39 AM) [facility] Blood Glucose Testing Reason Routine (02/09/24 7:39 AM) [facility] LABORATORYOrdered By: SYSTEM SYSTEM on 02-09-2024 Basophils (Bld) [#/Vol] 0.0 103/mcL Normal 0.0 - 0.3 10^3/mcL Workflow SS Basophils/100 WBC (Bld) 0.3 % Normal 0.0 - 2.5 % Workflow SS Calcium [Mass/Vol] 10.3 mg/dL Normal 8.7 - 10. 4 mg/dL ADM SS Chloride [Moles/Vol] 105 mmol/L Normal 98 - 11 0 mEq/L AH ADM SS CO2 [Moles/Vol] 28 mmol/L Normal 22 - 32 mEq/L ADM SS Creatinine [Mass/Vol] 0.74 mg/dL Normal 0.50 - 1.20 mg/dL ADM SS Comment on above: Interpretive Data: T esting performed on [employer] analyzer using enzymatic creatinine methodology. Electrolyte Balance 6.0 mEq/L Normal 4.0 - 15 .0 mEq/L ADM SS Eosinophils (Bld) [#/Vol] 0.1 103/mcL Normal 0.0 - 0.7 10^3/mcL Workflow SS Eosinophils/100 WBC (Bld) 2.0 % Normal 0.0 - 6.0 % Workflow SS Erythrocyte distribution width (RBC) [Ratio] 14.6 % Normal 11.5 - 15.5 % Workflow SS GFR/1.73 sq M.predicted among blacks MDRD (S/P/Bld) [Vol rate/Area] ml/min/1.73sqm Invalid Interpretation Code TUBE Chemistry S Comment on above: Interpretive Data: GFR Population mean for , Non- Americans Ages 20-29 = 116 mL/min/1.73 sq.m. Ages 30-39 = 107 mL/min/1.73 sq.m. Ages 40-49 = 99 mL/min/1.73 sq.m. Ages 50-59 = 93 mL/min/1.73 sq.m. Ages 60-69 = 85 mL/min/1.73 sq.m. Ages 70+ = 75 mL/min/1.73 sq.m. Chronic Kidney Disease: Less than 60 mL/min/1.73 square meters End Stage Renal Disease: Less than 15 mL/min/1.73 square meters GFR/1.73 sq M.predicted among non-blacks MDRD (S/P/Bld) [Vol rate/Area] ml/min/1.73sqm Invalid Interpretation Code TUBE Chemistry S Comment on above: Interpretive Data: GFR Population mean for , Non- Americans Ages 20-29 = 116 mL/min/1.73 sq.m. Ages 30-39 = 107 mL/min/1.73 sq.m. Ages 40-49 = 99 mL/min/1.73 sq.m. Ages 50-59 = 93 mL/min/1.73 sq.m. Ages 60-69 = 85 mL/min/1.73 sq.m. Ages 70+ = 75 mL/min/1.73 sq.m. Chronic Kidney Disease: Less than 60 mL/min/1.73 square meters End Stage Renal Disease: Less than 15 mL/min/1.73 square meters Glucose [Mass/Vol] 126 mg/dL High 82 - 115 mg/dL ADM SS Hematocrit (Bld) [Volume fraction] 40.1 % Normal 34.0 - 46.0 % Workflow SS Hemoglobin (Bld) [Mass/Vol] 13.4 G/dL Normal 12.0 - 16.0 G/dL AH Workflow SS Lymphocytes (Bld) [#/Vol] 2.2 103/mcL Normal 0.9 - 4.3 10^3/mcL AH Workflow SS Lymphocytes/100 WBC (Bld) 36.2 % Normal 20.0 - 40.0 % AH Workflow SS MCH (RBC) [Entitic mass] 31.1 pg Normal 27.0 - 33.0 pg AH Workflow SS MCHC 33.5 G/dL Normal 32.0 - 36.0 G/dL Workflow SS MCV (RBC) [Entitic vol] 92.9 fL Normal 80.0 - 99.0 fL Workflow SS Monocytes (Bld) [#/Vol] 0.5 103/mcL Normal 0.1 - 1.4 10^3/mcL AH Workflow SS Monocytes/100 WBC (Bld) 8.7 % Normal 2.0 - 13.0 % Workflow SS Neutrophils (Bld) [#/Vol] 3.2 103/mcL Normal 2.3 - 8.1 10^3/mcL Workflow SS Neutrophils/100 WBC (Bld) 52.8 % Normal 50.0 - 75.0 % Workflow SS Platelet mean volume (Bld) [Entitic vol] 8.4 fL Normal 6.6 - 10.5 fL Workflow SS Platelets (Bld) [#/Vol] 106 103/mcL Low 150 - 450 10^3/mcL AH Workflow SS Potassium [Moles/Vol] 4.3 mmol/L Normal 3.5 - 5.0 mEq/L ADM SS RBC (Bld) [#/Vol] 4.31 106/mcL Normal 4.10 - 5.3 0 10^6/mcL AH Workflow SS Sodium [Moles/Vol] 139 mmol/L Normal 136 - 145 mEq/L ADM SS Urea nitrogen [Mass/Vol] 18.0 mg/dL Normal 8.0 - 22.0 mg/dL ADM SS Urea nitrogen/Creatinine [Mass ratio] 24.3 ratio High 10.0 - 22.0 ratio ADM SS WBC (Bld) [#/Vol] 6.1 103/mcL Normal 4.5 - 10.8 10^3/mcL Workflow SS .Auto Diffon 02-08-2024 Basophil, Absolute 0.0 10 3/mcL Normal 0.0-0.3 [facility] Comment on above: Performed By: #### A DIFF, MG, CMP, CBC, GFR, ANEU ####[address] [address] Basophils/100 WBC (Bld) 0.4 % Normal 0.0-2.5 [facility] Comment on above: Performed By: #### A DIFF, MG, CMP, CBC, GFR, ANEU ####[address] [address] Eosinophil, Absolute 0.1 10 3/mcL Normal 0.0-0.7 [facility] Comment on above: Performed By: #### A DIFF, MG, CMP, CBC, GFR, ANEU ####[address] [address] Eosinophils/100 WBC (Bld) 1.7 % Normal 0.0-6.0 [facility] Comment on above: Performed By: #### A DIFF, MG, CMP, CBC, GFR, ANEU ####[address] [address] Lymphocyte, Absolute 2.8 10 3/mcL Normal 0.9-4.3 [facility] Comment on above: Performed By: #### A DIFF, MG, CMP, CBC, GFR, ANEU ####[address] [address] Lymphocytes/100 WBC (Bld) 40.1 % High 20.0-40.0 [facility] Comment on above: Performed By: #### A DIFF, MG, CMP, CBC, GFR, ANEU ####[address] [address] Monocyte, Absolute 0.6 10 3/mcL Normal 0.1-1.4 [facility] Comment on above: Performed By: #### A DIFF, MG, CMP, CBC, GFR, ANEU ####[address] [address] Monocytes/100 WBC (Bld) 8.4 % Normal 2.0-13.0 [facility] Comment on above: Performed By: #### A DIFF, MG, CMP, CBC, GFR, ANEU ####[place] [id number] [place] [address] Neutrophils/100 WBC (Bld) 49.4 % Low 50.0-75.0 [facility] Comment on above: Performed By: #### A DIFF, MG, CMP, CBC, GFR, ANEU ####[address] [address] .GFRon 02-08-2024 GFR Non- >60 Normal [facility] Comment on above: Result Comment: GFR Population mean for , Non- Americans Ages 20-29 = 116 mL/min/1.73 sq.m. Ages 30-39 = 107 mL/min/1.73 sq.m. Ages 40-49 = 99 mL/min/1.73 sq.m. Ages 50-59 = 93 mL/min/1.73 sq.m. Ages 60-69 = 85 mL/min/1.73 sq.m. Ages 70+ = 75 mL/min/1.73 sq.m. Chronic Kidney Disease: Less than 60 mL/min/1.73 square meters End Stage Renal Disease: Less than 15 mL/min/1.73 square meters Performed By: #### A DIFF, MG, CMP, CBC, GFR, ANEU ####[address] [address] GFR >60 Normal [facility] Comment on above: Result Comment: GFR Population mean for , Non- Americans Ages 20-29 = 116 mL/min/1.73 sq.m. Ages 30-39 = 107 mL/min/1.73 sq.m. Ages 40-49 = 99 mL/min/1.73 sq.m. Ages 50-59 = 93 mL/min/1.73 sq.m. Ages 60-69 = 85 mL/min/1.73 sq.m. Ages 70+ = 75 mL/min/1.73 sq.m. Chronic Kidney Disease: Less than 60 mL/min/1.73 square meters End Stage Renal Disease: Less than 15 mL/min/1.73 square meters Performed By: #### A DIFF, MG, CMP, CBC, GFR, ANEU ####[place] [address] .NEUABSon 02-08-2024 Neutrophil, Absolute 3.4 10 3/mcL Normal 2.3-8.1 [facility] Comment on above: Performed By: #### A DIFF, MG, CMP, CBC, GFR, ANEU ####[place] [address] CBCon 02-08-2024 Erythrocyte distribution width (RBC) [Ratio] 14.4 % Normal 11.5-15.5 [facility] Comment on above: Performed By: #### A DIFF, MG, CMP, CBC, GFR, ANEU ####[place] [address] Hematocrit (Bld) [Volume fraction] 41.1 % Normal 34.0-46.0 [facility] Comment on above: Performed By: #### A DIFF, MG, CMP, CBC, GFR, ANEU ####[place] [address] Hgb 14.0 G/dL Normal 12.0-16.0 [facility] Comment on above: Performed By: #### A DIFF, MG, CMP, CBC, GFR, ANEU ####[place] [address] MCH (RBC) [Entitic mass] 31.6 pg Normal 27.0-33.0 [facility] Comment on above: Performed By: #### A DIFF, MG, CMP, CBC, GFR, ANEU ####[place] [address] MCHC 34.0 G/dL Normal 32.0-36.0 [facility] Comment on above: Performed By: #### A DIFF, MG, CMP, CBC, GFR, ANEU ####[place] [address] MCV (RBC) [Entitic vol] 92.8 fL Normal 80.0-99.0 [facility] Comment on above: Performed By: #### A DIFF, MG, CMP, CBC, GFR, ANEU ####[place] [address] Platelet 111 10 3/mcL Low 150-450 [facility] Comment on above: Performed By: #### A DIFF, MG, CMP, CBC, GFR, ANEU ####[place] [address] Platelet mean volume (Bld) [Entitic vol] 8.6 fL Normal 6.6-10.5 [facility] Comment on above: Performed By: #### A DIFF, MG, CMP, CBC, GFR, ANEU ####[place] [address] RBC 4.43 10 6/mcL Normal 4.10-5.30 [facility] Comment on above: Performed By: #### A DIFF, MG, CMP, CBC, GFR, ANEU ####[place] [address] WBC 6.9 10 3/mcL Normal 4.5-10.8 [facility] Comment on above: Performed By: #### A DIFF, MG, CMP, CBC, GFR, ANEU ####[place] [address] CMPon 02-08-2024 Albumin Level 3.0 G/dL Low 3.2-4.8 [facility] Comment on above: Performed By: #### A DIFF, MG, CMP, CBC, GFR, ANEU ####[place] [address] Albumin/Globulin [Mass ratio] 0.8 {ratio} Low 0.9-1.6 [facility] Comment on above: Performed By: #### A DIFF, MG, CMP, CBC, GFR, ANEU ####[place] [address] ALP [Catalytic activity/Vol] 74 U/L Normal 38-126 [facility] Comment on above: Performed By: #### A DIFF, MG, CMP, CBC, GFR, ANEU ####[place] [address] ALT [Catalytic activity/Vol] 33 U/L Normal 10-49 [facility] Comment on above: Performed By: #### A DIFF, MG, CMP, CBC, GFR, ANEU ####[address] [address] AST [Catalytic activity/Vol] 43 U/L High 8-34 [facility] Comment on above: Performed By: #### A DIFF, MG, CMP, CBC, GFR, ANEU ####[address] [address] Bili Total 0.60 mg/dL Normal 0.20-1.20 [facility] Comment on above: Result Comment: Use of this assay is not recommended for patients undergoing treatment with eltrombopag due to the potential for falsely elevated results. Performed By: #### A DIFF, MG, CMP, CBC, GFR, ANEU ####[place] [address] BUN/Creatinine Ratio 23.9 ratio High 10.0-22.0 [facility] Comment on above: Performed By: #### A DIFF, MG, CMP, CBC, GFR, ANEU ####[place] [address] Calcium [Mass/Vol] 10.5 mg/dL High 8.7-10.4 [facility] Comment on above: Performed By: #### A DIFF, MG, CMP, CBC, GFR, ANEU ####[address] [address] Chloride [Moles/Vol] 104 mmol/L Normal 98-110 [facility] Comment on above: Performed By: #### A DIFF, MG, CMP, CBC, GFR, ANEU ####[place] [address] CO2 [Moles/Vol] 29 mmol/L Normal 22-32 [facility] Comment on above: Performed By: #### A DIFF, MG, CMP, CBC, GFR, ANEU ####[place] [id number] Creatinine [Mass/Vol] 0.71 mg/dL Normal 0.50-1.20 [facility] Comment on above: Result Comment: Test ing performed on [employer] analyzer using enzymatic creatinine methodology. Performed By: #### A DIFF, MG, CMP, CBC, GFR, ANEU ####[address] [address] Electrolyte Balance 6.0 mEq/L Normal 4.0-15.0 [facility] Comment on above: Performed By: #### A DIFF, MG, CMP, CBC, GFR, ANEU ####[address] [address] Globulin 3.6 G/dL Normal 1.5-3.8 [facility] Comment on above: Performed By: #### A DIFF, MG, CMP, CBC, GFR, ANEU ####[address] [address] Glucose [Mass/Vol] 119 mg/dL High 82-115 [facility] Comment on above: Performed By: #### A DIFF, MG, CMP, CBC, GFR, ANEU ####[address] [address] Potassium [Moles/Vol] 4.0 mmol/L Normal 3.5-5.0 [facility] Comment on above: Performed By: #### A DIFF, MG, CMP, CBC, GFR, ANEU ####[address] [address] Sodium [Moles/Vol] 139 mmol/L Normal 136-145 [facility] Comment on above: Performed By: #### A DIFF, MG, CMP, CBC, GFR, ANEU ####[address] [address] Total Protein 6.6 G/dL Normal 5.7-8.2 [facility] Comment on above: Performed By: #### A DIFF, MG, CMP, CBC, GFR, ANEU ####[address] [address] Urea nitrogen [Mass/Vol] 17.0 mg/dL Normal 8.0-22.0 [facility] Comment on above: Performed By: #### A DIFF, MG, CMP, CBC, GFR, ANEU ####[address] [address] Final Surgical Pathology Rep [facility] 02-08-2024 Final Surgical Pathology Report . Pathology Reports Accession: Collected Date/Time: Received Date/Time: Pathologist: [id number] 02/06/2024 13:30 EDT 02/07/2024 07:47 EDT ROYER FOSTER MD Final Surgical Pathology Report DIAGNOSIS: INTERVERTEBRAL DISC -L3: - CARTILAGE TISSUE WITH NONSPECIFIC DEGENERATIVE CHANGES - NO SIGNIFICANT INFLAMMATION IDENTIFIED CLINICAL INFORMATION: DISCITIS VS OSTEO Procedure: L2-L3 DISC SPECIMEN: A L2-L3 GROSS DESCRIPTION: All parts labelled with patient name and [id number] Received in formalin labeled bone are multiple jenkins-white bone fragments ranging in size from less than 0.1 to 0.6 cm. Specimen submitted in biopsy bag for processing. TS-1 Modesta Zhang, Grossing Customer Records Division Supervisor/ Dr. Quincy Ramires, Pathologist Performed by Modesta Zhang MICROSCOPIC DESCRIPTION: The microscopic examination is performed, except in the case of Gross Only. Electronically Signed by Pathology Report verified by [facility] ROYER FOSTER Sign out Date: 02/08/2024 15:31 Performing Lab: [facility], [address] [place] [address] Pathology Dept Disclaimer If ancillary studies were utilized, the following Laboratory Developed Test (LDT) disclaimer will apply: Under CLIA requirements, [facility] is qualified to perform high complexity testing. For all ancillary stains, positive and negative controls stain appropriately. Performance characteristics of immunohistochemical and chromogenic in-situ hybridization tests have been determined by [facility]. These tests are used for clinical purposes, They should not be regarded as investigational or for research. Normal [facility] LABORATORYOrdered By: Laury Ching on 02-08-2024 LDose Vancomycin:(trough) See eMAR (02/08/24 10:31 PM) Normal Chemistry S LABORATORYOrdered By: SYSTEM SYSTEM on 02-08-2024 Vancomycin trough [Mass/Vol] 11.7 ug/mL Normal 5.0 - 20.0 mcg/mL AH ADM SS Albumin BCP dye [Mass/Vol] 3.0 G/dL Low 3.2 - 4.8 G/dL AH ADM SS Albumin/Globulin [Mass ratio] 0.8 {ratio} Low 0.9 - 1.6 ratio AH ADM SS ALP [Catalytic activity/Vol] 74 U/L Normal 38 - 126 U/L ADM SS ALT No additional P-5'-P [Catalytic activity/Vol] 33 U/L Normal 10 - 49 U/L ADM SS AST [Catalytic activity/Vol] 43 U/L High 8 - 34 U/L ADM SS Basophils (Bld) [#/Vol] 0.0 103/mcL Normal 0.0 - 0.3 10^3/mcL Workflow SS Basophils/100 WBC (Bld) 0.4 % Normal 0.0 - 2.5 % Workflow SS Bilirubin [Mass/Vol] 0.60 mg/dL Normal 0.20 - 1.20 mg/dL ADM SS Comment on above: Interpretive Data: U se of this assay is not recommended for patients undergoing treatment with eltrombopag due to the potential for falsely elevated results. Calcium [Mass/Vol] 10.5 mg/dL High 8.7 - 10. 4 mg/dL ADM SS Chloride [Moles/Vol] 104 mmol/L Normal 98 - 11 0 mEq/L ADM SS CO2 [Moles/Vol] 29 mmol/L Normal 22 - 32 mEq/L ADM SS Creatinine [Mass/Vol] 0.71 mg/dL Normal 0.50 - 1.20 mg/dL ADM SS Comment on above: Interpretive Data: T esting performed on [employer] analyzer using enzymatic creatinine methodology. Electrolyte Balance 6.0 mEq/L Normal 4.0 - 15 .0 mEq/L ADM SS Eosinophils (Bld) [#/Vol] 0.1 103/mcL Normal 0.0 - 0.7 10^3/mcL Workflow SS Eosinophils/100 WBC (Bld) 1.7 % Normal 0.0 - 6.0 % Workflow SS Erythrocyte distribution width (RBC) [Ratio] 14.4 % Normal 11.5 - 15.5 % Workflow SS GFR/1.73 sq M.predicted among blacks MDRD (S/P/Bld) [Vol rate/Area] ml/min/1.73sqm Invalid Interpretation Code Chemistry S Comment on above: Interpretive Data: GFR Population mean for , Non- Americans Ages 20-29 = 116 mL/min/1.73 sq.m. Ages 30-39 = 107 mL/min/1.73 sq.m. Ages 40-49 = 99 mL/min/1.73 sq.m. Ages 50-59 = 93 mL/min/1.73 sq.m. Ages 60-69 = 85 mL/min/1.73 sq.m. Ages 70+ = 75 mL/min/1.73 sq.m. Chronic Kidney Disease: Less than 60 mL/min/1.73 square meters End Stage Renal Disease: Less than 15 mL/min/1.73 square meters GFR/1.73 sq M.predicted among non-blacks MDRD (S/P/Bld) [Vol rate/Area] ml/min/1.73sqm Invalid Interpretation Code Chemistry S Comment on above: Interpretive Data: GFR Population mean for , Non- Americans Ages 20-29 = 116 mL/min/1.73 sq.m. Ages 30-39 = 107 mL/min/1.73 sq.m. Ages 40-49 = 99 mL/min/1.73 sq.m. Ages 50-59 = 93 mL/min/1.73 sq.m. Ages 60-69 = 85 mL/min/1.73 sq.m. Ages 70+ = 75 mL/min/1.73 sq.m. Chronic Kidney Disease: Less than 60 mL/min/1.73 square meters End Stage Renal Disease: Less than 15 mL/min/1.73 square meters Globulin 3.6 G/dL Normal 1.5 - 3.8 G/dL ADM SS Glucose [Mass/Vol] 119 mg/dL High 82 - 115 mg/dL ADM SS Hematocrit (Bld) [Volume fraction] 41.1 % Normal 34.0 - 46.0 % AH Workflow SS Hemoglobin (Bld) [Mass/Vol] 14.0 G/dL Normal 12.0 - 16.0 G/dL AH Workflow SS Lymphocytes (Bld) [#/Vol] 2.8 103/mcL Normal 0.9 - 4.3 10^3/mcL AH Workflow SS Lymphocytes/100 WBC (Bld) 40.1 % High 20.0 - 40.0 % AH Workflow SS Magnesium [Mass/Vol] 1.4 mg/dL Low 1.6 - 2 .4 mg/dL ADM SS MCH (RBC) [Entitic mass] 31.6 pg Normal 27.0 - 33.0 pg AH Workflow SS MCHC 34.0 G/dL Normal 32.0 - 36.0 G/dL AH Workflow SS MCV (RBC) [Entitic vol] 92.8 fL Normal 80.0 - 99.0 fL AH Workflow SS Monocytes (Bld) [#/Vol] 0.6 103/mcL Normal 0.1 - 1.4 10^3/mcL AH Workflow SS Monocytes/100 WBC (Bld) 8.4 % Normal 2.0 - 13.0 % AH Workflow SS Neutrophils (Bld) [#/Vol] 3.4 103/mcL Normal 2.3 - 8.1 10^3/mcL AH Workflow SS Neutrophils/100 WBC (Bld) 49.4 % Low 50.0 - 75.0 % AH Workflow SS Platelet mean volume (Bld) [Entitic vol] 8.6 fL Normal 6.6 - 10.5 fL AH Workflow SS Platelets (Bld) [#/Vol] 111 103/mcL Low 150 - 450 10^3/mcL AH Workflow SS Potassium [Moles/Vol] 4.0 mmol/L Normal 3.5 - 5.0 mEq/L AH ADM SS Protein [Mass/Vol] 6.6 G/dL Normal 5.7 - 8.2 G/dL AH ADM SS RBC (Bld) [#/Vol] 4.43 106/mcL Normal 4.10 - 5.3 0 10^6/mcL AH Workflow SS Sodium [Moles/Vol] 139 mmol/L Normal 136 - 145 mEq/L ADM SS Urea nitrogen [Mass/Vol] 17.0 mg/dL Normal 8.0 - 22.0 mg/dL AH ADM SS Urea nitrogen/Creatinine [Mass ratio] 23.9 ratio High 10.0 - 22.0 ratio ADM SS WBC (Bld) [#/Vol] 6.9 103/mcL Normal 4.5 - 10.8 10^3/mcL Workflow SS LABORATORYOrdered By: Shawna Ovalles on 02-08-2024 Blood Glucose Testing Reason Routine (02/08/24 11:41 AM) [facility] MGon 02-08-2024 Magnesium [Mass/Vol] 1.4 mg/dL Low 1.6-2.4 [facility] Comment on above: Performed By: #### A DIFF, MG, CMP, CBC, GFR, ANEU ####[address] 02-08-2024 LDose Vancomycin:(trough) See eMAR Normal [facility] Comment on above: Performed By: #### V ANCT ####[place] [address] Vancomycin Tr 11.7 mcg/mL Normal 5.0-20.0 [facility] Comment on above: Performed By: #### V ANCT ####[place] [address] .Auto Diffon 02-07-2024 Basophil, Absolute 0.0 10 3/mcL Normal 0.0-0.3 [facility] Comment on above: Performed By: #### C BC, GFR, ANEU, ADIFF, BMP ####[place] [address] Basophils/100 WBC (Bld) 0.3 % Normal 0.0-2.5 [facility] Comment on above: Performed By: #### C BC, GFR, ANEU, ADIFF, BMP ####[place] [address] Eosinophil, Absolute 0.1 10 3/mcL Normal 0.0-0.7 [facility] Comment on above: Performed By: #### C BC, GFR, ANEU, ADIFF, BMP ####[place] [address] Eosinophils/100 WBC (Bld) 2.1 % Normal 0.0-6.0 [facility] Comment on above: Performed By: #### C BC, GFR, ANEU, ADIFF, BMP ####[place] [address] Lymphocyte, Absolute 2.1 10 3/mcL Normal 0.9-4.3 [facility] Comment on above: Performed By: #### C BC, GFR, ANEU, ADIFF, BMP ####[place] [address] Lymphocytes/100 WBC (Bld) 38.5 % Normal 20.0-40.0 [facility] Comment on above: Performed By: #### C BC, GFR, ANEU, ADIFF, BMP ####[address] [address] Monocyte, Absolute 0.5 10 3/mcL Normal 0.1-1.4 [facility] Comment on above: Performed By: #### C BC, GFR, ANEU, ADIFF, BMP ####[address] [address] Monocytes/100 WBC (Bld) 8.8 % Normal 2.0-13.0 [facility] Comment on above: Performed By: #### C BC, GFR, ANEU, ADIFF, BMP ####[address] [address] Neutrophils/100 WBC (Bld) 50.3 % Normal 50.0-75.0 [facility] Comment on above: Performed By: #### C BC, GFR, ANEU, ADIFF, BMP ####[address] [address] .GFRon 02-07-2024 GFR Non- >60 [facility] Comment on above: Result Comment: GFR Population mean for , Non- Americans Ages 20-29 = 116 mL/min/1.73 sq.m. Ages 30-39 = 107 mL/min/1.73 sq.m. Ages 40-49 = 99 mL/min/1.73 sq.m. Ages 50-59 = 93 mL/min/1.73 sq.m. Ages 60-69 = 85 mL/min/1.73 sq.m. Ages 70+ = 75 mL/min/1.73 sq.m. Chronic Kidney Disease: Less than 60 mL/min/1.73 square meters End Stage Renal Disease: Less than 15 mL/min/1.73 square meters Performed By: #### C BC, GFR, ANEU, ADIFF, BMP ####[address] [address] GFR >60 Normal [facility] Comment on above: Result Comment: GFR Population mean for , Non- Americans Ages 20-29 = 116 mL/min/1.73 sq.m. Ages 30-39 = 107 mL/min/1.73 sq.m. Ages 40-49 = 99 mL/min/1.73 sq.m. Ages 50-59 = 93 mL/min/1.73 sq.m. Ages 60-69 = 85 mL/min/1.73 sq.m. Ages 70+ = 75 mL/min/1.73 sq.m. Chronic Kidney Disease: Less than 60 mL/min/1.73 square meters End Stage Renal Disease: Less than 15 mL/min/1.73 square meters Performed By: #### C BC, GFR, ANEU, ADIFF, BMP ####[address] [address] .NEUABSon 02-07-2024 Neutrophil, Absolute 2.8 10 3/mcL Normal 2.3-8.1 [facility] Comment on above: Performed By: #### C BC, GFR, ANEU, ADIFF, BMP ####[address] [address] BMPon 02-07-2024 BUN/Creatinine Ratio 15.8 ratio Normal 10.0-22.0 [facility] Comment on above: Performed By: #### C BC, GFR, ANEU, ADIFF, BMP ####[address] [address] Calcium [Mass/Vol] 10.4 mg/dL Normal 8.7-10.4 [facility] Comment on above: Performed By: #### C BC, GFR, ANEU, ADIFF, BMP ####[address] [address] Chloride [Moles/Vol] 105 mmol/L Normal 98-110 [facility] Comment on above: Performed By: #### C BC, GFR, ANEU, ADIFF, BMP ####[address] [address] CO2 [Moles/Vol] 30 mmol/L Normal 22-32 [facility] Comment on above: Performed By: #### C BC, GFR, ANEU, ADIFF, BMP ####[address] [address] Creatinine [Mass/Vol] 0.76 mg/dL Normal 0.50-1.20 [facility] Comment on above: Result Comment: Test ing performed on [employer] analyzer using enzymatic creatinine methodology. Performed By: #### C BC, GFR, ANEU, ADIFF, BMP ####[place] [address] Electrolyte Balance 5.0 mEq/L Normal 4.0-15.0 [facility] Comment on above: Performed By: #### C BC, GFR, ANEU, ADIFF, BMP ####[place] [address] Glucose [Mass/Vol] 128 mg/dL High 82-115 [facility] Comment on above: Performed By: #### C BC, GFR, ANEU, ADIFF, BMP ####[place] [address] Potassium [Moles/Vol] 4.3 mmol/L Normal 3.5-5.0 [facility] Comment on above: Performed By: #### C BC, GFR, ANEU, ADIFF, BMP ####[place] [address] Sodium [Moles/Vol] 140 mmol/L Normal 136-145 [facility] Comment on above: Performed By: #### C BC, GFR, ANEU, ADIFF, BMP ####[place] [address] Urea nitrogen [Mass/Vol] 12.0 mg/dL Normal 8.0-22.0 [facility] Comment on above: Performed By: #### C BC, GFR, ANEU, ADIFF, BMP ####[place] [address] CBCon 02-07-2024 Erythrocyte distribution width (RBC) [Ratio] 14.3 % Normal 11.5-15.5 [facility] Comment on above: Performed By: #### C BC, GFR, ANEU, ADIFF, BMP ####[place] [address] Hematocrit (Bld) [Volume fraction] 39.0 % Normal 34.0-46.0 [facility] Comment on above: Performed By: #### C BC, GFR, ANEU, ADIFF, BMP ####[place] [address] Hgb 13.3 G/dL Normal 12.0-16.0 [facility] Comment on above: Performed By: #### C BC, GFR, ANEU, ADIFF, BMP ####[place] [address] MCH (RBC) [Entitic mass] 31.3 pg Normal 27.0-33.0 [facility] Comment on above: Performed By: #### C BC, GFR, ANEU, ADIFF, BMP ####[place] [address] MCHC 34.2 G/dL Normal 32.0-36.0 [facility] Comment on above: Performed By: #### C BC, GFR, ANEU, ADIFF, BMP ####[place] [address] MCV (RBC) [Entitic vol] 91.7 fL Normal 80.0-99.0 [facility] Comment on above: Performed By: #### C BC, GFR, ANEU, ADIFF, BMP ####[place] [address] Platelet 119 10 3/mcL Low 150-450 [facility] Comment on above: Performed By: #### C BC, GFR, ANEU, ADIFF, BMP ####[place] [address] Platelet mean volume (Bld) [Entitic vol] 8.4 fL Normal 6.6-10.5 [facility] Comment on above: Performed By: #### C BC, GFR, ANEU, ADIFF, BMP ####[place] [address] RBC 4.26 10 6/mcL Normal 4.10-5.30 [facility] Comment on above: Performed By: #### C BC, GFR, ANEU, ADIFF, BMP ####[place] [address] WBC 5.5 10 3/mcL Normal 4.5-10.8 [facility] Comment on above: Performed By: #### C BC, GFR, ANEU, ADIFF, BMP ####[address] [address] .Auto Diffon 02-06-2024 Basophil, Absolute 0.0 10 3/mcL Normal 0.0-0.3 [facility] Comment on above: Performed By: #### B MP, GFR, CBC, ADIFF, ANEU ####[address] [address] Basophils/100 WBC (Bld) 0.3 % Normal 0.0-2.5 [facility] Comment on above: Performed By: #### B MP, GFR, CBC, ADIFF, ANEU ####[address] [address] Eosinophil, Absolute 0.1 10 3/mcL Normal 0.0-0.7 [facility] Comment on above: Performed By: #### B MP, GFR, CBC, ADIFF, ANEU ####[address] [address] Eosinophils/100 WBC (Bld) 2.3 % Normal 0.0-6.0 [facility] Comment on above: Performed By: #### B MP, GFR, CBC, ADIFF, ANEU ####[address] [address] Lymphocyte, Absolute 2.7 10 3/mcL Normal 0.9-4.3 [facility] Comment on above: Performed By: #### B MP, GFR, CBC, ADIFF, ANEU ####[address] [address] Lymphocytes/100 WBC (Bld) 41.4 % High 20.0-40.0 [facility] Comment on above: Performed By: #### B MP, GFR, CBC, ADIFF, ANEU ####[address] [address] Monocyte, Absolute 0.5 10 3/mcL Normal 0.1-1.4 [facility] Comment on above: Performed By: #### B MP, GFR, CBC, ADIFF, ANEU ####[address] [address] Monocytes/100 WBC (Bld) 7.8 % Normal 2.0-13.0 [facility] Comment on above: Performed By: #### B MP, GFR, CBC, ADIFF, ANEU ####[place] [id number] [place] [id number] Neutrophils/100 WBC (Bld) 48.2 % Low 50.0-75.0 [facility] [facility] Comment on above: Performed By: #### B MP, GFR, CBC, ADIFF, ANEU ####[address] [address] .GFRon 02-06-2024 GFR Non- >60 Normal [facility] Comment on above: Result Comment: GFR Population mean for , Non- Americans Ages 20-29 = 116 mL/min/1.73 sq.m. Ages 30-39 = 107 mL/min/1.73 sq.m. Ages 40-49 = 99 mL/min/1.73 sq.m. Ages 50-59 = 93 mL/min/1.73 sq.m. Ages 60-69 = 85 mL/min/1.73 sq.m. Ages 70+ = 75 mL/min/1.73 sq.m. Chronic Kidney Disease: Less than 60 mL/min/1.73 square meters End Stage Renal Disease: Less than 15 mL/min/1.73 square meters Performed By: #### B MP, GFR, CBC, ADIFF, ANEU ####[address] [address] GFR >60 Normal [facility] Comment on above: Result Comment: GFR Population mean for , Non- Americans Ages 20-29 = 116 mL/min/1.73 sq.m. Ages 30-39 = 107 mL/min/1.73 sq.m. Ages 40-49 = 99 mL/min/1.73 sq.m. Ages 50-59 = 93 mL/min/1.73 sq.m. Ages 60-69 = 85 mL/min/1.73 sq.m. Ages 70+ = 75 mL/min/1.73 sq.m. Chronic Kidney Disease: Less than 60 mL/min/1.73 square meters End Stage Renal Disease: Less than 15 mL/min/1.73 square meters Performed By: #### B MP, GFR, CBC, ADIFF, ANEU ####[address] [address] .NEUABSon 02-06-2024 Neutrophil, Absolute 3.1 10 3/mcL Normal 2.3-8.1 [facility] Comment on above: Performed By: #### B MP, GFR, CBC, ADIFF, ANEU ####[place] [id number] BMPon 02-06-2024 BUN/Creatinine Ratio 15.8 ratio Normal 10.0-22.0 [facility] Comment on above: Performed By: #### B MP, GFR, CBC, ADIFF, ANEU ####[place] [address] Calcium [Mass/Vol] 10.6 mg/dL High 8.7-10.4 [facility] Comment on above: Performed By: #### B MP, GFR, CBC, ADIFF, ANEU ####[place] [address] Chloride [Moles/Vol] 105 mmol/L Normal 98-110 [facility] Comment on above: Performed By: #### B MP, GFR, CBC, ADIFF, ANEU ####[place] [address] CO2 [Moles/Vol] 30 mmol/L Normal 22-32 [facility] Comment on above: Performed By: #### B MP, GFR, CBC, ADIFF, ANEU ####[place] [address] Creatinine [Mass/Vol] 0.76 mg/dL Normal 0.50-1.20 [facility] Comment on above: Result Comment: Test ing performed on [employer] analyzer using enzymatic creatinine methodology. Performed By: #### B MP, GFR, CBC, ADIFF, ANEU ####[place] [address] Electrolyte Balance 5.0 mEq/L Normal 4.0-15.0 [facility] Comment on above: Performed By: #### B MP, GFR, CBC, ADIFF, ANEU ####[address] [address] Glucose [Mass/Vol] 121 mg/dL High 82-115 [facility] Comment on above: Performed By: #### B MP, GFR, CBC, ADIFF, ANEU ####[address] [address] Potassium [Moles/Vol] 4.6 mmol/L Normal 3.5-5.0 [facility] Comment on above: Performed By: #### B MP, GFR, CBC, ADIFF, ANEU ####[place] [id number] Sodium [Moles/Vol] 140 mmol/L Normal 136-145 [facility] Comment on above: Performed By: #### B MP, GFR, CBC, ADIFF, ANEU ####[place] [address] Urea nitrogen [Mass/Vol] 12.0 mg/dL Normal 8.0-22.0 [facility] Comment on above: Performed By: #### B MP, GFR, CBC, ADIFF, ANEU ####[place] [address] CBCon 02-06-2024 Erythrocyte distribution width (RBC) [Ratio] 14.4 % Normal 11.5-15.5 [facility] Comment on above: Performed By: #### B MP, GFR, CBC, ADIFF, ANEU ####[place] [address] Hematocrit (Bld) [Volume fraction] 40.1 % Normal 34.0-46.0 [facility] Comment on above: Performed By: #### B MP, GFR, CBC, ADIFF, ANEU ####[address] [address] Hgb 13.8 G/dL Normal 12.0-16.0 [facility] Comment on above: Performed By: #### B MP, GFR, CBC, ADIFF, ANEU ####[address] [address] MCH (RBC) [Entitic mass] 31.6 pg Normal 27.0-33.0 [facility] Comment on above: Performed By: #### B MP, GFR, CBC, ADIFF, ANEU ####[place] [address] MCHC 34.5 G/dL Normal 32.0-36.0 [facility] Comment on above: Performed By: #### B MP, GFR, CBC, ADIFF, ANEU ####[place] [address] MCV (RBC) [Entitic vol] 91.4 fL Normal 80.0-99.0 [facility] Comment on above: Performed By: #### B MP, GFR, CBC, ADIFF, ANEU ####[place] [address] Platelet 130 10 3/mcL Low 150-450 [facility] Comment on above: Performed By: #### B MP, GFR, CBC, ADIFF, ANEU ####[place] [address] Platelet mean volume (Bld) [Entitic vol] 8.2 fL Normal 6.6-10.5 [facility] Comment on above: Performed By: #### B MP, GFR, CBC, ADIFF, ANEU ####[place] [address] RBC 4.38 10 6/mcL Normal 4.10-5.30 [facility] Comment on above: Performed By: #### B MP, GFR, CBC, ADIFF, ANEU ####[place] [address] WBC 6.4 10 3/mcL Normal 4.5-10.8 [facility] Comment on above: Performed By: #### B MP, GFR, CBC, ADIFF, ANEU ####[place] [address] No Panel Informationon 02-05 AFS Acid Fast Smear from Concentrated Specimen: Negative [facility] Culture Fungus No fungus isolated t o date. Final report to follow. [facility] Culture Wound Deep Panel No growth to date [facility] FUNSM No fungal elements observed by calcofluor white stain. [facility] GS No organisms seen. [facility] .Auto Diffon 02-05-2024 Basophil, Absolute 0.1 10 3/mcL Normal 0.0-0.3 [facility] Comment on above: Performed By: #### B MP, CBC, GFR, ANEU, ADIFF ####[address] [address] Basophils/100 WBC (Bld) 1.1 % Normal 0.0-2.5 [facility] Comment on above: Performed By: #### B MP, CBC, GFR, ANEU, ADIFF ####[address] [address] Eosinophil, Absolute 0.1 10 3/mcL Normal 0.0-0.7 [facility] Comment on above: Performed By: #### B MP, CBC, GFR, ANEU, ADIFF ####[address] [address] Eosinophils/100 WBC (Bld) 2.2 % Normal 0.0-6.0 [facility] Comment on above: Performed By: #### B MP, CBC, GFR, ANEU, ADIFF ####[address] [address] Lymphocyte, Absolute 2.4 10 3/mcL Normal 0.9-4.3 [facility] Comment on above: Performed By: #### B MP, CBC, GFR, ANEU, ADIFF ####[address] [address] Lymphocytes/100 WBC (Bld) 39.8 % Normal 20.0-40.0 [facility] Comment on above: Performed By: #### B MP, CBC, GFR, ANEU, ADIFF ####[address] [address] Monocyte, Absolute 0.5 10 3/mcL Normal 0.1-1.4 [facility] Comment on above: Performed By: #### B MP, CBC, GFR, ANEU, ADIFF ####[place] [id number] [address] [place] [address] Monocytes/100 WBC (Bld) 8.9 % Normal 2.0-13.0 [facility] Comment on above: Performed By: #### B MP, CBC, GFR, ANEU, ADIFF ####[place] [id number] [address] [place] [address] Neutrophils/100 WBC (Bld) 48.0 % Low 50.0-75.0 [facility] Comment on above: Performed By: #### B MP, CBC, GFR, ANEU, ADIFF ####[address] [address] .GFRon 02-05-2024 GFR Non- >60 [facility] Comment on above: Result Comment: GFR Population mean for , Non- Americans Ages 20-29 = 116 mL/min/1.73 sq.m. Ages 30-39 = 107 mL/min/1.73 sq.m. Ages 40-49 = 99 mL/min/1.73 sq.m. Ages 50-59 = 93 mL/min/1.73 sq.m. Ages 60-69 = 85 mL/min/1.73 sq.m. Ages 70+ = 75 mL/min/1.73 sq.m. Chronic Kidney Disease: Less than 60 mL/min/1.73 square meters End Stage Renal Disease: Less than 15 mL/min/1.73 square meters Performed By: #### B MP, CBC, GFR, ANEU, ADIFF ####[address] [address] GFR >60 Normal [facility] Comment on above: Result Comment: GFR Population mean for , Non- Americans Ages 20-29 = 116 mL/min/1.73 sq.m. Ages 30-39 = 107 mL/min/1.73 sq.m. Ages 40-49 = 99 mL/min/1.73 sq.m. Ages 50-59 = 93 mL/min/1.73 sq.m. Ages 60-69 = 85 mL/min/1.73 sq.m. Ages 70+ = 75 mL/min/1.73 sq.m. Chronic Kidney Disease: Less than 60 mL/min/1.73 square meters End Stage Renal Disease: Less than 15 mL/min/1.73 square meters Performed By: #### B MP, CBC, GFR, ANEU, ADIFF ####[place] [id number] .NEUABSon 02-05-2024 Neutrophil, Absolute 3.0 10 3/mcL Normal 2.3-8.1 [facility] Comment on above: Performed By: #### B MP, CBC, GFR, ANEU, ADIFF ####[place] [address] BMPon 02-05-2024 BUN/Creatinine Ratio 19.7 ratio Normal 10.0-22.0 [facility] Comment on above: Performed By: #### B MP, CBC, GFR, ANEU, ADIFF ####[place] [address] Calcium [Mass/Vol] 10.1 mg/dL Normal 8.7-10.4 [facility] Comment on above: Performed By: #### B MP, CBC, GFR, ANEU, ADIFF ####[place] [address] Chloride [Moles/Vol] 107 mmol/L Normal 98-110 [facility] Comment on above: Performed By: #### B MP, CBC, GFR, ANEU, ADIFF ####[place] [address] CO2 [Moles/Vol] 25 mmol/L Normal 22-32 [facility] Comment on above: Performed By: #### B MP, CBC, GFR, ANEU, ADIFF ####[place] [address] Creatinine [Mass/Vol] 0.71 mg/dL Normal 0.50-1.20 [facility] Comment on above: Result Comment: Test ing performed on [employer] analyzer using enzymatic creatinine methodology. Performed By: #### B MP, CBC, GFR, ANEU, ADIFF ####[place] [address] Electrolyte Balance 8.0 mEq/L Normal 4.0-15.0 [facility] Comment on above: Performed By: #### B MP, CBC, GFR, ANEU, ADIFF ####[place] [address] Glucose [Mass/Vol] 136 mg/dL High 82-115 [facility] Comment on above: Performed By: #### B MP, CBC, GFR, ANEU, ADIFF ####[place] [phone] Potassium [Moles/Vol] 4.4 mmol/L Normal 3.5-5.0 [facility] Comment on above: Result Comment: Spec imen slightly hemolyzed. Performed By: #### B MP, CBC, GFR, ANEU, ADIFF ####[place] [address] Sodium [Moles/Vol] 140 mmol/L Normal 136-145 [facility] Comment on above: Performed By: #### B MP, CBC, GFR, ANEU, ADIFF ####[place] [address] Urea nitrogen [Mass/Vol] 14.0 mg/dL Normal 8.0-22.0 [facility] Comment on above: Performed By: #### B MP, CBC, GFR, ANEU, ADIFF ####[place] [address] CBCon 02-05-2024 Erythrocyte distribution width (RBC) [Ratio] 14.4 % Normal 11.5-15.5 [facility] Comment on above: Order Comment: clott ed please recollect - called no answer 02/05/2024 07:06:20 EDT Performed By: #### B MP, CBC, GFR, ANEU, ADIFF ####[place] [address] Hematocrit (Bld) [Volume fraction] 39.0 % Normal 34.0-46.0 [facility] Comment on above: Order Comment: clott ed please recollect - called no answer 02/05/2024 07:06:20 EDT Performed By: #### B MP, CBC, GFR, ANEU, ADIFF ####[place] [address] Hgb 13.3 G/dL Normal 12.0-16.0 [facility] Comment on above: Order Comment: clott ed please recollect - called no answer 02/05/2024 07:06:20 EDT Performed By: #### B MP, CBC, GFR, ANEU, ADIFF ####[address] [address] MCH (RBC) [Entitic mass] 31.2 pg Normal 27.0-33.0 [facility] Comment on above: Order Comment: clott ed please recollect - called no answer 02/05/2024 07:06:20 EDT Performed By: #### B MP, CBC, GFR, ANEU, ADIFF ####[place] [address] MCHC 34.1 G/dL Normal 32.0-36.0 [facility] Comment on above: Order Comment: clott ed please recollect - called no answer 02/05/2024 07:06:20 EDT Performed By: #### B MP, CBC, GFR, ANEU, ADIFF ####[place] [address] MCV (RBC) [Entitic vol] 91.4 fL Normal 80.0-99.0 [facility] Comment on above: Order Comment: clott ed please recollect - called no answer 02/05/2024 07:06:20 EDT Performed By: #### B MP, CBC, GFR, ANEU, ADIFF ####[place] [address] Platelet 123 10 3/mcL Low 150-450 [facility] Comment on above: Order Comment: clott ed please recollect - called no answer 02/05/2024 07:06:20 EDT Performed By: #### B MP, CBC, GFR, ANEU, ADIFF ####[place] [address] Platelet mean volume (Bld) [Entitic vol] 9.0 fL Normal 6.6-10.5 [facility] Comment on above: Order Comment: clott ed please recollect - called no answer 02/05/2024 07:06:20 EDT Performed By: #### B MP, CBC, GFR, ANEU, ADIFF ####[facility] [place] [address] RBC 4.26 10 6/mcL Normal 4.10-5.30 [facility] Comment on above: Order Comment: clott ed please recollect - called no answer 02/05/2024 07:06:20 EDT Performed By: #### B MP, CBC, GFR, ANEU, ADIFF ####[facility] [place] [address] WBC 6.1 10 3/mcL Normal 4.5-10.8 [facility] Comment on above: Order Comment: clott ed please recollect - called no answer 02/05/2024 07:06:20 EDT Performed By: #### B MP, CBC, GFR, ANEU, ADIFF ####[address] [address] .Auto Diffon 02-04-2024 Basophil, Absolute 0.0 10 3/mcL Normal 0.0-0.3 [facility] Comment on above: Performed By: #### A DIFF, GFR, CBC, ANEU, BMP #### [address] [address] Basophils/100 WBC (Bld) 0.3 % Normal 0.0-2.5 [facility] Comment on above: Performed By: #### A DIFF, GFR, CBC, ANEU, BMP #### [address] [address] Eosinophil, Absolute 0.1 10 3/mcL Normal 0.0-0.7 [facility] Comment on above: Performed By: #### A DIFF, GFR, CBC, ANEU, BMP #### [address] [address] Eosinophils/100 WBC (Bld) 1.7 % Normal 0.0-6.0 [facility] Comment on above: Performed By: #### A DIFF, GFR, CBC, ANEU, BMP #### [address] [address] Lymphocyte, Absolute 1.8 10 3/mcL Normal 0.9-4.3 [facility] Comment on above: Performed By: #### A DIFF, GFR, CBC, ANEU, BMP #### [address] [address] Lymphocytes/100 WBC (Bld) 27.3 % Normal 20.0-40.0 [facility] Comment on above: Performed By: #### A DIFF, GFR, CBC, ANEU, BMP #### [address] [address] Monocyte, Absolute 0.4 10 3/mcL Normal 0.1-1.4 [facility] Comment on above: Performed By: #### A DIFF, GFR, CBC, ANEU, BMP #### [address] [address] Monocytes/100 WBC (Bld) 6.6 % Normal 2.0-13.0 [facility] Comment on above: Performed By: #### A DIFF, GFR, CBC, ANEU, BMP #### [address] [address] Neutrophils/100 WBC (Bld) 64.1 % Normal 50.0-75.0 [facility] Comment on above: Performed By: #### A DIFF, GFR, CBC, ANEU, BMP #### [address] [address] .GFRon 02-04-2024 GFR >60 Normal [facility] Comment on above: Result Comment: GFR Population mean for , Non- Americans Ages 20-29 = 116 mL/min/1.73 sq.m. Ages 30-39 = 107 mL/min/1.73 sq.m. Ages 40-49 = 99 mL/min/1.73 sq.m. Ages 50-59 = 93 mL/min/1.73 sq.m. Ages 60-69 = 85 mL/min/1.73 sq.m. Ages 70+ = 75 mL/min/1.73 sq.m. Chronic Kidney Disease: Less than 60 mL/min/1.73 square meters End Stage Renal Disease: Less than 15 mL/min/1.73 square meters Performed By: #### A DIFF, GFR, CBC, ANEU, BMP ####[address] [address] GFR Non- >60 Normal [facility] Comment on above: Result Comment: GFR Population mean for , Non- Americans Ages 20-29 = 116 mL/min/1.73 sq.m. Ages 30-39 = 107 mL/min/1.73 sq.m. Ages 40-49 = 99 mL/min/1.73 sq.m. Ages 50-59 = 93 mL/min/1.73 sq.m. Ages 60-69 = 85 mL/min/1.73 sq.m. Ages 70+ = 75 mL/min/1.73 sq.m. Chronic Kidney Disease: Less than 60 mL/min/1.73 square meters End Stage Renal Disease: Less than 15 mL/min/1.73 square meters Performed By: #### A DIFF, GFR, CBC, ANEU, BMP ####[address] [address] .NEUABSon 02-04-2024 Neutrophil, Absolute 4.1 10 3/mcL Normal 2.3-8.1 [facility] Comment on above: Performed By: #### A DIFF, GFR, CBC, ANEU, BMP ####[address] [address] BMPon 02-04-2024 BUN/Creatinine Ratio 21.7 ratio Normal 10.0-22.0 [facility] Comment on above: Performed By: #### A DIFF, GFR, CBC, ANEU, BMP ####[address] [address] Calcium [Mass/Vol] 10.1 mg/dL Normal 8.7-10.4 [facility] Comment on above: Performed By: #### A DIFF, GFR, CBC, ANEU, BMP ####[address] [address] Chloride [Moles/Vol] 108 mmol/L Normal 98-110 [facility] Comment on above: Performed By: #### A DIFF, GFR, CBC, ANEU, BMP ####[address] [address] CO2 [Moles/Vol] 22 mmol/L Normal 22-32 [facility] Comment on above: Performed By: #### A DIFF, GFR, CBC, ANEU, BMP ####[place] [address] Creatinine [Mass/Vol] 0.69 mg/dL Normal 0.50-1.20 [facility] Comment on above: Result Comment: Test ing performed on [employer] analyzer using enzymatic creatinine methodology. Performed By: #### A DIFF, GFR, CBC, ANEU, BMP ####[place] [address] Electrolyte Balance 9.0 mEq/L Normal 4.0-15.0 [facility] Comment on above: Performed By: #### A DIFF, GFR, CBC, ANEU, BMP ####[place] [address] Glucose [Mass/Vol] 143 mg/dL High 82-115 [facility] Comment on above: Performed By: #### A DIFF, GFR, CBC, ANEU, BMP ####[place] [address] Potassium [Moles/Vol] 4.1 mmol/L Normal 3.5-5.0 [facility] Comment on above: Performed By: #### A DIFF, GFR, CBC, ANEU, BMP ####[place] [address] Sodium [Moles/Vol] 139 mmol/L Normal 136-145 [facility] Comment on above: Performed By: #### A DIFF, GFR, CBC, ANEU, BMP ####[place] [address] Urea nitrogen [Mass/Vol] 15.0 mg/dL Normal 8.0-22.0 [facility] Comment on above: Performed By: #### A DIFF, GFR, CBC, ANEU, BMP ####[place] [address] CBCon 02-04-2024 Erythrocyte distribution width (RBC) [Ratio] 14.5 % Normal 11.5-15.5 [facility] Comment on above: Performed By: #### A DIFF, GFR, CBC, ANEU, BMP #### [address] [address] Hematocrit (Bld) [Volume fraction] 39.3 % Normal 34.0-46.0 [facility] Comment on above: Performed By: #### A DIFF, GFR, CBC, ANEU, BMP #### [address] [address] Hgb 13.3 G/dL Normal 12.0-16.0 [facility] Comment on above: Performed By: #### A DIFF, GFR, CBC, ANEU, BMP #### [place] [id number] MCH (RBC) [Entitic mass] 31.3 pg Normal 27.0-33.0 [facility] Comment on above: Performed By: #### A DIFF, GFR, CBC, ANEU, BMP #### [place] [address] MCHC 33.8 G/dL Normal 32.0-36.0 [facility] Comment on above: Performed By: #### A DIFF, GFR, CBC, ANEU, BMP #### [place] [id number] MCV (RBC) [Entitic vol] 92.9 fL Normal 80.0-99.0 [facility] Comment on above: Performed By: #### A DIFF, GFR, CBC, ANEU, BMP #### [place] [id number] Platelet 123 10 3/mcL Low 150-450 [facility] Comment on above: Performed By: #### A DIFF, GFR, CBC, ANEU, BMP #### [place] [address] Platelet mean volume (Bld) [Entitic vol] 8.6 fL Normal 6.6-10.5 [facility] Comment on above: Performed By: #### A DIFF, GFR, CBC, ANEU, BMP #### [place] [id number] RBC 4.23 10 6/mcL Normal 4.10-5.30 [facility] Comment on above: Performed By: #### A DIFF, GFR, CBC, ANEU, BMP #### [place] [id number] [place] [address] WBC 6.5 10 3/mcL Normal 4.5-10.8 [facility] Comment on above: Performed By: #### A DIFF, GFR, CBC, ANEU, BMP #### [place] [id number] [place] [address] .Auto Diffon 02-03-2024 Basophil, Absolute 0.0 10 3/mcL Normal 0.0-0.3 [facility] Comment on above: Performed By: #### G FR, ANEU, ADIFF, BMP, CBC ####[address] [address] Basophils/100 WBC (Bld) 0.2 % Normal 0.0-2.5 [facility] Comment on above: Performed By: #### G FR, ANEU, ADIFF, BMP, CBC ####[address] [address] Eosinophil, Absolute 0.1 10 3/mcL Normal 0.0-0.7 [facility] Comment on above: Performed By: #### G FR, ANEU, ADIFF, BMP, CBC ####[address] [address] Eosinophils/100 WBC (Bld) 2.3 % Normal 0.0-6.0 [facility] Comment on above: Performed By: #### G FR, ANEU, ADIFF, BMP, CBC ####[address] [address] Lymphocyte, Absolute 2.6 10 3/mcL Normal 0.9-4.3 [facility] Comment on above: Performed By: #### G FR, ANEU, ADIFF, BMP, CBC ####[address] [address] Lymphocytes/100 WBC (Bld) 40.9 % High 20.0-40.0 [facility] Comment on above: Performed By: #### G FR, ANEU, ADIFF, BMP, CBC ####[address] [address] Monocyte, Absolute 0.5 10 3/mcL Normal 0.1-1.4 [facility] Comment on above: Performed By: #### G FR, ANEU, ADIFF, BMP, CBC ####[place] [id number] [place] [address] Monocytes/100 WBC (Bld) 8.2 % Normal 2.0-13.0 [facility] Comment on above: Performed By: #### G FR, ANEU, ADIFF, BMP, CBC ####[place] [id number] [place] [address] Neutrophils/100 WBC (Bld) 48.4 % Low 50.0-75.0 [facility] Comment on above: Performed By: #### G FR, ANEU, ADIFF, BMP, CBC ####[place] [id number] [place] [address] .GFRon 02-03-2024 GFR >60 Normal [facility] Comment on above: Result Comment: GFR Population mean for , Non- Americans Ages 20-29 = 116 mL/min/1.73 sq.m. Ages 30-39 = 107 mL/min/1.73 sq.m. Ages 40-49 = 99 mL/min/1.73 sq.m. Ages 50-59 = 93 mL/min/1.73 sq.m. Ages 60-69 = 85 mL/min/1.73 sq.m. Ages 70+ = 75 mL/min/1.73 sq.m. Chronic Kidney Disease: Less than 60 mL/min/1.73 square meters End Stage Renal Disease: Less than 15 mL/min/1.73 square meters Performed By: #### G FR, ANEU, ADIFF, BMP, CBC ####[address] [address] GFR Non- >60 Normal [facility] Comment on above: Result Comment: GFR Population mean for , Non- Americans Ages 20-29 = 116 mL/min/1.73 sq.m. Ages 30-39 = 107 mL/min/1.73 sq.m. Ages 40-49 = 99 mL/min/1.73 sq.m. Ages 50-59 = 93 mL/min/1.73 sq.m. Ages 60-69 = 85 mL/min/1.73 sq.m. Ages 70+ = 75 mL/min/1.73 sq.m. Chronic Kidney Disease: Less than 60 mL/min/1.73 square meters End Stage Renal Disease: Less than 15 mL/min/1.73 square meters Performed By: #### G FR, ANEU, ADIFF, BMP, CBC ####[address] [address] .NEUABSon 02-03-2024 Neutrophil, Absolute 3.1 10 3/mcL Normal 2.3-8.1 [facility] Comment on above: Performed By: #### G FR, ANEU, ADIFF, BMP, CBC ####[place] [address] BMPon 02-03-2024 BUN/Creatinine Ratio 25.9 ratio High 10.0-22.0 [facility] Comment on above: Performed By: #### G FR, ANEU, ADIFF, BMP, CBC ####[place] [address] Calcium [Mass/Vol] 9.8 mg/dL Normal 8.7-10.4 [facility] Comment on above: Performed By: #### G FR, ANEU, ADIFF, BMP, CBC ####[place] [address] Chloride [Moles/Vol] 109 mmol/L Normal 98-110 [facility] Comment on above: Performed By: #### G FR, ANEU, ADIFF, BMP, CBC ####[place] [address] CO2 [Moles/Vol] 27 mmol/L Normal 22-32 [facility] Comment on above: Performed By: #### G FR, ANEU, ADIFF, BMP, CBC ####[place] [address] Creatinine [Mass/Vol] 0.85 mg/dL Normal 0.50-1.20 [facility] Comment on above: Result Comment: Test ing performed on [employer] analyzer using enzymatic creatinine methodology. Performed By: #### G FR, ANEU, ADIFF, BMP, CBC ####[place] [address] Electrolyte Balance 5.0 mEq/L Normal 4.0-15.0 [facility] Comment on above: Performed By: #### G FR, ANEU, ADIFF, BMP, CBC ####[place] [address] Glucose [Mass/Vol] 127 mg/dL High 82-115 [facility] Comment on above: Performed By: #### G FR, ANEU, ADIFF, BMP, CBC ####[place] [address] Potassium [Moles/Vol] 3.7 mmol/L Normal 3.5-5.0 [facility] Comment on above: Performed By: #### G FR, ANEU, ADIFF, BMP, CBC ####[place] [address] Sodium [Moles/Vol] 141 mmol/L Normal 136-145 [facility] Comment on above: Performed By: #### G FR, ANEU, ADIFF, BMP, CBC ####[place] [address] Urea nitrogen [Mass/Vol] 22.0 mg/dL Normal 8.0-22.0 [facility] Comment on above: Performed By: #### G FR, ANEU, ADIFF, BMP, CBC ####[place] [address] CBCon 02-03-2024 Erythrocyte distribution width (RBC) [Ratio] 14.3 % Normal 11.5-15.5 [facility] Comment on above: Performed By: #### G FR, ANEU, ADIFF, BMP, CBC ####[place] [address] Hematocrit (Bld) [Volume fraction] 38.9 % Normal 34.0-46.0 [facility] Comment on above: Performed By: #### G FR, ANEU, ADIFF, BMP, CBC ####[place] [address] Hgb 13.1 G/dL Normal 12.0-16.0 [facility] Comment on above: Performed By: #### G FR, ANEU, ADIFF, BMP, CBC ####[place] [address] MCH (RBC) [Entitic mass] 31.2 pg Normal 27.0-33.0 [facility] Comment on above: Performed By: #### G FR, ANEU, ADIFF, BMP, CBC ####[place] [address] MCHC 33.7 G/dL Normal 32.0-36.0 [facility] Comment on above: Performed By: #### G FR, ANEU, ADIFF, BMP, CBC ####[place] [address] MCV (RBC) [Entitic vol] 92.5 fL Normal 80.0-99.0 [facility] Comment on above: Performed By: #### G FR, ANEU, ADIFF, BMP, CBC ####[place] [address] Platelet 124 10 3/mcL Low 150-450 [facility] Comment on above: Performed By: #### G FR, ANEU, ADIFF, BMP, CBC ####[place] [address] Platelet mean volume (Bld) [Entitic vol] 8.7 fL Normal 6.6-10.5 [facility] Comment on above: Performed By: #### G FR, ANEU, ADIFF, BMP, CBC ####[place] [address] RBC 4.20 10 6/mcL Normal 4.10-5.30 [facility] Comment on above: Performed By: #### G FR, ANEU, ADIFF, BMP, CBC ####[place] [address] WBC 6.5 10 3/mcL Normal 4.5-10.8 [facility] Comment on above: Performed By: #### G FR, ANEU, ADIFF, BMP, CBC ####[place] [address] LABORATORYOrdered By: Laury Ching on 02-03-2024 LDose Vancomycin:(trough) See eMAR (02/03/24 10:20 PM) Normal AH Chemistry S LABORATORYOrdered By: SYSTEM SYSTEM on 02-03-2024 Vancomycin trough [Mass/Vol] 12.1 ug/mL Normal 5.0 - 20.0 mcg/mL AH ADM SS MRI SPINE LUMBAR W/ + W/O CO NTRASTon 02-03-2024 MRI SPINE LUMBAR W/ + W/O CONTRAST ORIGINAL EXAMINATION: MRI OF THE LUMBAR SPINE WITHOUT AND WITH CONTRAST 02/03/2024 4:33 pm TECHNIQUE: Multiplanar multisequence MRI of the lumbar spine was performed without and with the administration of intravenous contrast. COMPARISON: MRI lumbar spine with contrast 12/18/2019. CT abdomen pelvis with contrast 02/01/2024. HISTORY: ORDERING SYSTEM PROVIDED HISTORY: Reason for Exam: osteo/discitis FINDINGS: BONES/ALIGNMENT: Destructive changes are appreciated about the L2-3 endplates, greater on the right than left with associated increased fluid signal and extensive postcontrast enhancement within the marrow, disc spaces, and prevertebral soft tissues. There is redemonstration of anterior wedging and height loss of the L1 vertebral body. No significant listhesis. Marrow signal is otherwise within normal limits. SPINAL CORD: The conus terminates normally at the level of L2. SOFT TISSUES: Soft tissue edema and postcontrast enhancement within the prevertebral soft tissues at L2-3. There is extension of soft tissue edema posteriorly along the inferior aspect of the right L2 pedicle with enhancement about the right L2-3 facet with increased fluid signal within the facet. L1-L2: Mild ligamentum flavum and facet hypertrophy. There is no significant disc protrusion, spinal canal stenosis or neural foraminal narrowing. L2-L3: Mild asymmetric diffuse bulge with mild narrowing of the spinal canal. Mild ligamentum flavum and facet hypertrophy. Moderate to severe right neural foraminal stenosis. L3-L4: A minimal diffuse disc bulge is appreciated with significant facet and mild ligamentum flavum hypertrophy resulting in severe narrowing of the spinal canal. Moderate right mild left neural foraminal stenoses. L4-L5: Minimal diffuse disc bulge with significant facet hypertrophy and mild ligamentum flavum hypertrophy resulting and moderate narrowing of the spinal canal and severe bilateral lateral recess stenosis. Moderate bilateral neural foraminal stenoses. L5-S1: Minimal diffuse disc bulge with facet and ligamentum flavum hypertrophy without significant narrowing of the spinal canal. Moderate left and mild right neural foraminal stenosis. IMPRESSION: 1. Findings consistent with discitis/osteomyelitis at L2-3. 2. Extensive prevertebral soft tissue edema and postcontrast enhancement at L2-3. 3. Extensive postcontrast enhancement and fluid signal within the right L2-3 facet joint compatible with facet synovitis, likely infectious. 4. Multilevel degenerative changes of the lumbar spine with severe spinal canal stenosis at L3-4 and moderate spinal canal stenosis at L4-5. 5. Multilevel neural foraminal stenoses as described above. Interpreted by: Dora Romero Preliminary Report By: Dora Romero Electronically signed By Dora Romero Dictated Date: 02/03/2024 4:49:32 PM Prelim Date: 02/03/2024 5:05:50 PM Sign Date: 02/03/2024 5:05:50 PM Ordering Provider: FABI REYES [facility] 02-03-2024 LDose Vancomycin:(trough) See eMAR [facility] Comment on above: Performed By: #### V ANCT ####[place] [address] Vancomycin Tr 12.1 mcg/mL Normal 5.0-20.0 [facility] Comment on above: Performed By: #### V ANCT ####[place] [address] .Auto Diffon 02-02-2024 Basophil, Absolute 0.0 10 3/mcL Normal 0.0-0.3 [facility] Comment on above: Performed By: #### A DIFF, ANEU, CBC, BMP, GFR ####[place] [address] Basophils/100 WBC (Bld) 0.3 % Normal 0.0-2.5 [facility] Comment on above: Performed By: #### A DIFF, ANEU, CBC, BMP, GFR ####[place] [address] Eosinophil, Absolute 0.2 10 3/mcL Normal 0.0-0.7 [facility] Comment on above: Performed By: #### A DIFF, ANEU, CBC, BMP, GFR ####[address] [address] Eosinophils/100 WBC (Bld) 1.9 % Normal 0.0-6.0 [facility] Comment on above: Performed By: #### A DIFF, ANEU, CBC, BMP, GFR ####[address] [address] Lymphocyte, Absolute 3.3 10 3/mcL Normal 0.9-4.3 [facility] Comment on above: Performed By: #### A DIFF, ANEU, CBC, BMP, GFR ####[address] [address] Lymphocytes/100 WBC (Bld) 34.6 % Normal 20.0-40.0 [facility] Comment on above: Performed By: #### A DIFF, ANEU, CBC, BMP, GFR ####[address] [address] Monocyte, Absolute 0.7 10 3/mcL Normal 0.1-1.4 [facility] Comment on above: Performed By: #### A DIFF, ANEU, CBC, BMP, GFR ####[address] [address] Monocytes/100 WBC (Bld) 6.9 % Normal 2.0-13.0 [facility] Comment on above: Performed By: #### A DIFF, ANEU, CBC, BMP, GFR ####[address] [address] Neutrophils/100 WBC (Bld) 56.3 % Normal 50.0-75.0 [facility] Comment on above: Performed By: #### A DIFF, ANEU, CBC, BMP, GFR ####[address] [address] .GFRon 02-02-2024 GFR Non- 58 ml/min/1.73sqm Normal [facility] Comment on above: Result Comment: GFR Population mean for , Non- Americans Ages 20-29 = 116 mL/min/1.73 sq.m. Ages 30-39 = 107 mL/min/1.73 sq.m. Ages 40-49 = 99 mL/min/1.73 sq.m. Ages 50-59 = 93 mL/min/1.73 sq.m. Ages 60-69 = 85 mL/min/1.73 sq.m. Ages 70+ = 75 mL/min/1.73 sq.m. Chronic Kidney Disease: Less than 60 mL/min/1.73 square meters End Stage Renal Disease: Less than 15 mL/min/1.73 square meters Performed By: #### A DIFF, ANEU, CBC, BMP, GFR ####[address] [address] GFR >60 Normal [facility] Comment on above: Result Comment: GFR Population mean for , Non- Americans Ages 20-29 = 116 mL/min/1.73 sq.m. Ages 30-39 = 107 mL/min/1.73 sq.m. Ages 40-49 = 99 mL/min/1.73 sq.m. Ages 50-59 = 93 mL/min/1.73 sq.m. Ages 60-69 = 85 mL/min/1.73 sq.m. Ages 70+ = 75 mL/min/1.73 sq.m. Chronic Kidney Disease: Less than 60 mL/min/1.73 square meters End Stage Renal Disease: Less than 15 mL/min/1.73 square meters Performed By: #### A DIFF, ANEU, CBC, BMP, GFR ####[address] [address] .NEUABSon 02-02-2024 Neutrophil, Absolute 5.4 10 3/mcL Normal 2.3-8.1 [facility] Comment on above: Performed By: #### A DIFF, ANEU, CBC, BMP, GFR ####[address] [address] BMPon 02-02-2024 BUN/Creatinine Ratio 26.0 ratio High 10.0-22.0 [facility] Comment on above: Performed By: #### A DIFF, ANEU, CBC, BMP, GFR ####[address] [address] Calcium [Mass/Vol] 10.2 mg/dL Normal 8.7-10.4 [facility] Comment on above: Performed By: #### A DIFF, ANEU, CBC, BMP, GFR ####[address] [address] Chloride [Moles/Vol] 108 mmol/L Normal 98-110 [facility] Comment on above: Performed By: #### A DIFF, ANEU, CBC, BMP, GFR ####[address] [address] CO2 [Moles/Vol] 24 mmol/L Normal 22-32 [facility] Comment on above: Performed By: #### A DIFF, ANEU, CBC, BMP, GFR ####[address] [address] Creatinine [Mass/Vol] 0.96 mg/dL Normal 0.50-1.20 [facility] Comment on above: Result Comment: Test ing performed on [employer] analyzer using enzymatic creatinine methodology. Performed By: #### A DIFF, ANEU, CBC, BMP, GFR ####[address] [address] Electrolyte Balance 9.0 mEq/L Normal 4.0-15.0 [facility] Comment on above: Performed By: #### A DIFF, ANEU, CBC, BMP, GFR ####[address] [address] Glucose [Mass/Vol] 108 mg/dL Normal 82-115 [facility] Comment on above: Performed By: #### A DIFF, ANEU, CBC, BMP, GFR ####[address] [address] Potassium [Moles/Vol] 3.6 mmol/L Normal 3.5-5.0 [facility] Comment on above: Performed By: #### A DIFF, ANEU, CBC, BMP, GFR ####[address] [address] Sodium [Moles/Vol] 141 mmol/L Normal 136-145 [facility] Comment on above: Performed By: #### A DIFF, ANEU, CBC, BMP, GFR ####[address] [address] Urea nitrogen [Mass/Vol] 25.0 mg/dL High 8.0-22.0 [facility] Comment on above: Performed By: #### A DIFF, ANEU, CBC, BMP, GFR ####[place] [address] CBCon 02-02-2024 Erythrocyte distribution width (RBC) [Ratio] 14.7 % Normal 11.5-15.5 [facility] Comment on above: Performed By: #### A DIFF, ANEU, CBC, BMP, GFR ####[place] [address] Hematocrit (Bld) [Volume fraction] 41.4 % Normal 34.0-46.0 [facility] Comment on above: Performed By: #### A DIFF, ANEU, CBC, BMP, GFR ####[place] [address] Hgb 13.9 G/dL Normal 12.0-16.0 [facility] Comment on above: Performed By: #### A DIFF, ANEU, CBC, BMP, GFR ####[place] [address] MCH (RBC) [Entitic mass] 31.0 pg Normal 27.0-33.0 [facility] Comment on above: Performed By: #### A DIFF, ANEU, CBC, BMP, GFR ####[place] [address] MCHC 33.5 G/dL Normal 32.0-36.0 [facility] Comment on above: Performed By: #### A DIFF, ANEU, CBC, BMP, GFR ####[place] [address] MCV (RBC) [Entitic vol] 92.4 fL Normal 80.0-99.0 [facility] Comment on above: Performed By: #### A DIFF, ANEU, CBC, BMP, GFR ####[place] [address] Platelet 136 10 3/mcL Low 150-450 [facility] Comment on above: Performed By: #### A DIFF, ANEU, CBC, BMP, GFR ####[place] [address] Platelet mean volume (Bld) [Entitic vol] 8.6 fL Normal 6.6-10.5 [facility] Comment on above: Performed By: #### A DIFF, ANEU, CBC, BMP, GFR ####[place] [address] RBC 4.48 10 6/mcL Normal 4.10-5.30 [facility] Comment on above: Performed By: #### A DIFF, ANEU, CBC, BMP, GFR ####[place] [address] WBC 9.6 10 3/mcL Normal 4.5-10.8 [facility] Comment on above: Performed By: #### A DIFF, ANEU, CBC, BMP, GFR ####[place] [address] CRPon 02-02-2024 CRP [Mass/Vol] mg/L Normal 0.0-1.0 [facility] Comment on above: Result Comment: No te - New Reference Range in effect 19 Performed By: #### E SR, CRP ####[place] [address] ESRon 02-02-2024 Erythrocyte Sed Rate 33 mm/hr High 0-30 [facility] Comment on above: Performed By: #### E SR, CRP ####[place] [address] LABORATORYOrdered By: SYSTEM SYSTEM on 02-02-2024 CRP [Mass/Vol] mg/dL Normal 0.0 - 1.0 mg/dL AH ADM SS Comment on above: Interpretive Data: * *Note - New Reference Range in effect 19 LABORATORYOrdered By: Partschannel Ase Master Mechanic on 02-02-2024 ESR 15 minute reading (Bld) [Velocity] 33 mm/hr High 0 - 30 mm/hr AH Auto Heme SS No Panel Informationon 02-01 Microscopic examination of blood, culture Blood Culture: No Growth at 5 days. [facility] .Auto Diffon 02-01-2024 Basophil, Absolute 0.0 10 3/mcL Normal 0.0-0.3 [facility] Comment on above: Performed By: #### A CYNDI, ADIFF, MG, CBC, GFR, BMP ####[address] [address] Basophils/100 WBC (Bld) 0.2 % Normal 0.0-2.5 [facility] Comment on above: Performed By: #### A CYNDI, ADIFF, MG, CBC, GFR, BMP ####[address] [address] Eosinophil, Absolute 0.2 10 3/mcL Normal 0.0-0.7 [facility] Comment on above: Performed By: #### A CYNDI, ADIFF, MG, CBC, GFR, BMP ####[address] [address] Eosinophils/100 WBC (Bld) 2.2 % Normal 0.0-6.0 [facility] Comment on above: Performed By: #### A CYNDI, ADIFF, MG, CBC, GFR, BMP ####[address] [address] Lymphocyte, Absolute 2.8 10 3/mcL Normal 0.9-4.3 [facility] Comment on above: Performed By: #### A CYNDI, ADIFF, MG, CBC, GFR, BMP ####[address] [address] Lymphocytes/100 WBC (Bld) 29.0 % Normal 20.0-40.0 [facility] Comment on above: Performed By: #### A CYNDI, ADIFF, MG, CBC, GFR, BMP ####[address] [address] Monocyte, Absolute 0.8 10 3/mcL Normal 0.1-1.4 [facility] Comment on above: Performed By: #### A CYNDI, ADIFF, MG, CBC, GFR, BMP ####[address] [address] Monocytes/100 WBC (Bld) 8.2 % Normal 2.0-13.0 [facility] Comment on above: Performed By: #### A CYNDI, ADIFF, MG, CBC, GFR, BMP ####[address] [address] Neutrophils/100 WBC (Bld) 60.4 % Normal 50.0-75.0 [facility] Comment on above: Performed By: #### A CYNDI, ADIFF, MG, CBC, GFR, BMP ####[address] [address] Basophil, Absolute 0.1 10 3/mcL Normal 0.0-0.2 [facility] Comment on above: Performed By: #### C BC, ADIFF, VANCT, ANEU, GFR, CMP, ESR #### [address] [address] Basophils/100 WBC (Bld) 1.1 % Normal 0.0-2.5 [facility] Comment on above: Performed By: #### C BC, ADIFF, VANCT, ANEU, GFR, CMP, ESR #### [address] [address] Eosinophil, Absolute 0.2 10 3/mcL Normal 0.0-0.7 [facility] Comment on above: Performed By: #### C BC, ADIFF, VANCT, ANEU, GFR, CMP, ESR #### [address] [address] Eosinophils/100 WBC (Bld) 2.6 % Normal 0.0-7.0 [facility] Comment on above: Performed By: #### C BC, ADIFF, VANCT, ANEU, GFR, CMP, ESR #### [address] [address] Lymphocyte, Absolute 2.7 10 3/mcL Normal 0.9-4.3 [facility] Comment on above: Performed By: #### C BC, ADIFF, VANCT, ANEU, GFR, CMP, ESR #### [address] [address] Lymphocytes/100 WBC (Bld) 34.0 % Normal 20.0-40.0 [facility] Comment on above: Performed By: #### C BC, ADIFF, VANCT, ANEU, GFR, CMP, ESR #### [address] [address] Monocyte, Absolute 0.6 10 3/mcL Normal 0.1-1.4 [facility] Comment on above: Performed By: #### C BC, ADIFF, VANCT, ANEU, GFR, CMP, ESR #### [address] [address] Monocytes/100 WBC (Bld) 7.9 % Normal 2.0-13.0 [facility] Comment on above: Performed By: #### C BC, ADIFF, VANCT, ANEU, GFR, CMP, ESR #### [address] [address] Neutrophils/100 WBC (Bld) 54.4 % Normal 50.0-75.0 [facility] Comment on above: Performed By: #### C BC, ADIFF, VANCT, ANEU, GFR, CMP, ESR #### [address] [address] .GFRon 02-01-2024 GFR 59 ml/min/1.73sqm [facility] Comment on above: Result Comment: GFR Population mean for , Non- Americans Ages 20-29 = 116 mL/min/1.73 sq.m. Ages 30-39 = 107 mL/min/1.73 sq.m. Ages 40-49 = 99 mL/min/1.73 sq.m. Ages 50-59 = 93 mL/min/1.73 sq.m. Ages 60-69 = 85 mL/min/1.73 sq.m. Ages 70+ = 75 mL/min/1.73 sq.m. Chronic Kidney Disease: Less than 60 mL/min/1.73 square meters End Stage Renal Disease: Less than 15 mL/min/1.73 square meters Performed By: #### A CYNDI, ELENIIFF, MG, CBC, GFR, BMP ####[address] [address] GFR Non- 48 ml/min/1.73sqm [facility] Comment on above: Result Comment: GFR Population mean for , Non- Americans Ages 20-29 = 116 mL/min/1.73 sq.m. Ages 30-39 = 107 mL/min/1.73 sq.m. Ages 40-49 = 99 mL/min/1.73 sq.m. Ages 50-59 = 93 mL/min/1.73 sq.m. Ages 60-69 = 85 mL/min/1.73 sq.m. Ages 70+ = 75 mL/min/1.73 sq.m. Chronic Kidney Disease: Less than 60 mL/min/1.73 square meters End Stage Renal Disease: Less than 15 mL/min/1.73 square meters Performed By: #### A CYNDI, ADIFF, MG, CBC, GFR, BMP ####[place] [id number] [place] [address] GFR 69 ml/min/1.73sqm [facility] Comment on above: Result Comment: GFR Population mean for , Non- Americans Ages 20-29 = 116 mL/min/1.73 sq.m. Ages 30-39 = 107 mL/min/1.73 sq.m. Ages 40-49 = 99 mL/min/1.73 sq.m. Ages 50-59 = 93 mL/min/1.73 sq.m. Ages 60-69 = 85 mL/min/1.73 sq.m. Ages 70+ = 75 mL/min/1.73 sq.m. Chronic Kidney Disease: Less than 60 mL/min/1.73 square meters End Stage Renal Disease: Less than 15 mL/min/1.73 square meters Performed By: #### C BC, ADIFF, VANCT, ANEU, GFR, CMP, ESR #### [facility] [address] [place], [place] [address] GFR Non- 57 ml/min/1.73sqm [facility] Comment on above: Result Comment: GFR Population mean for , Non- Americans Ages 20-29 = 116 mL/min/1.73 sq.m. Ages 30-39 = 107 mL/min/1.73 sq.m. Ages 40-49 = 99 mL/min/1.73 sq.m. Ages 50-59 = 93 mL/min/1.73 sq.m. Ages 60-69 = 85 mL/min/1.73 sq.m. Ages 70+ = 75 mL/min/1.73 sq.m. Chronic Kidney Disease: Less than 60 mL/min/1.73 square meters End Stage Renal Disease: Less than 15 mL/min/1.73 square meters Performed By: #### C BC, ADIFF, VANCT, ANEU, GFR, CMP, ESR #### [address] [address] .MDWon 02-01-2024 Monocyte Distribution Width 22.13 High 0.00-20.00 [facility] Comment on above: Result Comment: For adults in ED, MDW>20.0 may be associated with a higher risk of sepsis during the first 12hrs of hospital admission Performed By: #### C BC, ADIFF, VANCT, ANEU, GFR, CMP, ESR #### [address] [address] .NEUABSon 02-01-2024 Neutrophil, Absolute 5.7 10 3/mcL Normal 2.3-8.1 [facility] Comment on above: Performed By: #### A CYNDI, ADIFF, MG, CBC, GFR, BMP ####[address] [address] Neutrophil, Absolute 4.4 10 3/mcL Normal 2.3-8.1 [facility] Comment on above: Performed By: #### C BC, ADIFF, VANCT, ANEU, GFR, CMP, ESR #### [address] [address] BMPon 02-01-2024 BUN/Creatinine Ratio 22.3 ratio High 10.0-22.0 [facility] Comment on above: Performed By: #### A CYNDI, ADIFF, MG, CBC, GFR, BMP ####[address] [address] Calcium [Mass/Vol] 10.1 mg/dL Normal 8.7-10.4 [facility] Comment on above: Performed By: #### A CYNDI, ADIFF, MG, CBC, GFR, BMP ####[address] [address] Chloride [Moles/Vol] 105 mmol/L Normal 98-110 [facility] Comment on above: Performed By: #### A CYNDI, ADIFF, MG, CBC, GFR, BMP ####[address] [address] CO2 [Moles/Vol] 25 mmol/L Normal 22-32 [facility] Comment on above: Performed By: #### A CYNDI, ADIFF, MG, CBC, GFR, BMP ####[address] [address] Creatinine [Mass/Vol] 1.12 mg/dL Normal 0.50-1.20 [facility] Comment on above: Result Comment: Test ing performed on [employer] analyzer using enzymatic creatinine methodology. Performed By: #### A CYNDI, ADIFF, MG, CBC, GFR, BMP ####[address] [address] Electrolyte Balance 10.0 mEq/L Normal 4.0-15.0 [facility] Comment on above: Performed By: #### A CYNDI, ADIFF, MG, CBC, GFR, BMP ####[address] [address] Glucose [Mass/Vol] 113 mg/dL Normal 82-115 [facility] Comment on above: Performed By: #### A CYNDI, ADIFF, MG, CBC, GFR, BMP ####[address] [address] Potassium [Moles/Vol] 3.6 mmol/L Normal 3.5-5.0 [facility] Comment on above: Performed By: #### A CYNDI, ADIFF, MG, CBC, GFR, BMP ####[address] [address] Sodium [Moles/Vol] 140 mmol/L Normal 136-145 [facility] Comment on above: Performed By: #### A CYNDI, ADIFF, MG, CBC, GFR, BMP ####[address] [address] Urea nitrogen [Mass/Vol] 25.0 mg/dL High 8.0-22.0 [facility] Comment on above: Performed By: #### A CYNDI, ADIFF, MG, CBC, GFR, BMP ####[place] [address] CBCon 02-01-2024 Erythrocyte distribution width (RBC) [Ratio] 14.6 % Normal 11.5-15.5 [facility] Comment on above: Performed By: #### A CYNDI, ADIFF, MG, CBC, GFR, BMP ####[place] [address] Hematocrit (Bld) [Volume fraction] 42.0 % Normal 34.0-46.0 [facility] Comment on above: Performed By: #### A CYNDI, ADIFF, MG, CBC, GFR, BMP ####[place] [address] Hgb 14.2 G/dL Normal 12.0-16.0 [facility] Comment on above: Performed By: #### A CYNDI, ADIFF, MG, CBC, GFR, BMP ####[place] [address] MCH (RBC) [Entitic mass] 31.2 pg Normal 27.0-33.0 [facility] Comment on above: Performed By: #### A CYNDI, ADIFF, MG, CBC, GFR, BMP ####[place] [address] MCHC 33.8 G/dL Normal 32.0-36.0 [facility] Comment on above: Performed By: #### A CYNDI, ADIFF, MG, CBC, GFR, BMP ####[place] [address] MCV (RBC) [Entitic vol] 92.3 fL Normal 80.0-99.0 [facility] Comment on above: Performed By: #### A CYNDI, ADIFF, MG, CBC, GFR, BMP ####[place] [address] Platelet 149 10 3/mcL Low 150-450 [facility] Comment on above: Performed By: #### A CYNDI, ADIFF, MG, CBC, GFR, BMP ####[address] [address] Platelet mean volume (Bld) [Entitic vol] 8.3 fL Normal 6.6-10.5 [facility] Comment on above: Performed By: #### A CYNDI, ADIFF, MG, CBC, GFR, BMP ####[address] [address] RBC 4.56 10 6/mcL Normal 4.10-5.30 [facility] Comment on above: Performed By: #### A CYNDI, ADIFF, MG, CBC, GFR, BMP ####[address] [address] WBC 9.5 10 3/mcL Normal 4.5-10.8 [facility] Comment on above: Performed By: #### A CYNDI, ADIFF, MG, CBC, GFR, BMP ####[address] [address] Erythrocyte distribution width (RBC) [Ratio] 14.3 % Normal 11.5-15.5 [facility] Comment on above: Performed By: #### C BC, ADIFF, VANCT, ANEU, GFR, CMP, ESR #### [address] [address] Hematocrit (Bld) [Volume fraction] 40.6 % Normal 34.0-46.0 [facility] Comment on above: Performed By: #### C BC, ADIFF, VANCT, ANEU, GFR, CMP, ESR #### [address] [address] Hgb 13.7 G/dL Normal 12.0-16.0 [facility] Comment on above: Performed By: #### C BC, ADIFF, VANCT, ANEU, GFR, CMP, ESR #### [address] [address] MCH (RBC) [Entitic mass] 31.5 pg Normal 27.0-33.0 [facility] Comment on above: Performed By: #### C BC, ADIFF, VANCT, ANEU, GFR, CMP, ESR #### [address] [address] MCHC 33.8 G/dL Normal 32.0-36.0 [facility] Comment on above: Performed By: #### C BC, ADIFF, VANCT, ANEU, GFR, CMP, ESR #### [address] [address] MCV (RBC) [Entitic vol] 93.1 fL Normal 80.0-99.0 [facility] Comment on above: Performed By: #### C BC, ADIFF, VANCT, ANEU, GFR, CMP, ESR #### [address] [address] Platelet 149 10 3/mcL Low 150-450 [facility] Comment on above: Performed By: #### C BC, ADIFF, VANCT, ANEU, GFR, CMP, ESR #### [address] [address] Platelet mean volume (Bld) [Entitic vol] 8.1 fL Normal 6.6-10.5 [facility] Comment on above: Performed By: #### C BC, ADIFF, VANCT, ANEU, GFR, CMP, ESR #### [address] [address] RBC 4.36 10 6/mcL Normal 4.10-5.30 [facility] Comment on above: Performed By: #### C BC, ADIFF, VANCT, ANEU, GFR, CMP, ESR #### [address] [address] WBC 8.1 10 3/mcL Normal 4.5-10.8 [facility] Comment on above: Performed By: #### C BC, ADIFF, VANCT, ANEU, GFR, CMP, ESR #### [address] [address] CMPon 02-01-2024 Albumin Level 3.2 G/dL Low 3.4-4.8 [facility] Comment on above: Performed By: #### C BC, ADIFF, VANCT, ANEU, GFR, CMP, ESR #### [address] [address] Albumin/Globulin [Mass ratio] 0.9 {ratio} Low 1.1-2.5 [facility] Comment on above: Performed By: #### C BC, ADIFF, VANCT, ANEU, GFR, CMP, ESR #### [address] [address] ALP [Catalytic activity/Vol] 82 U/L Normal 40-135 [facility] Comment on above: Performed By: #### C BC, ADIFF, VANCT, ANEU, GFR, CMP, ESR #### [address] [address] ALT [Catalytic activity/Vol] 45 U/L Normal 14-59 [facility] Comment on above: Performed By: #### C BC, ADIFF, VANCT, ANEU, GFR, CMP, ESR #### [address] [address] AST [Catalytic activity/Vol] 59 U/L High 10-40 [facility] Comment on above: Performed By: #### C BC, ADIFF, VANCT, ANEU, GFR, CMP, ESR #### [address] [address] Bili Total 0.8 mg/dL Normal 0.2-1.0 [facility] Comment on above: Result Comment: Use of this assay is not recommended for patients undergoing treatment with eltrombopag due to the potential for falsely elevated results. Performed By: #### C BC, ADIFF, VANCT, ANEU, GFR, CMP, ESR #### [address] [address] BUN/Creatinine Ratio 23 ratio Normal 7-27 [facility] Comment on above: Performed By: #### C BC, ADIFF, VANCT, ANEU, GFR, CMP, ESR #### [address] [address] Calcium [Mass/Vol] 9.8 mg/dL Normal 8.4-10.2 [facility] Comment on above: Performed By: #### C BC, ADIFF, VANCT, ANEU, GFR, CMP, ESR #### [address] [address] Chloride [Moles/Vol] 101 mmol/L Normal 98-107 [facility] Comment on above: Performed By: #### C BC, ADIFF, VANCT, ANEU, GFR, CMP, ESR #### [address] [address] CO2 [Moles/Vol] 27 mmol/L Normal 23-31 [facility] Comment on above: Performed By: #### C BC, ADIFF, VANCT, ANEU, GFR, CMP, ESR #### [place] [address] Creatinine [Mass/Vol] 0.97 mg/dL Normal 0.55-1.02 [facility] Comment on above: Result Comment: Test ing performed on Siemens Dimension EXL analyzer using a modified kinetic Gagandeep technique. Performed By: #### C BC, ADIFF, VANCT, ANEU, GFR, CMP, ESR #### [address] [address] Electrolyte Balance 8.0 mEq/L Normal 4.0-15.0 [facility] Comment on above: Performed By: #### C BC, ADIFF, VANCT, ANEU, GFR, CMP, ESR #### [address] [address] Globulin 3.6 G/dL Normal [facility] Comment on above: Performed By: #### C BC, ADIFF, VANCT, ANEU, GFR, CMP, ESR #### [address] [address] Glucose [Mass/Vol] 133 mg/dL High 80-115 [facility] Comment on above: Performed By: #### C BC, ADIFF, VANCT, ANEU, GFR, CMP, ESR #### [address] [address] Potassium [Moles/Vol] 4.0 mmol/L Normal 3.5-5.1 [facility] Comment on above: Performed By: #### C BC, ADIFF, VANCT, ANEU, GFR, CMP, ESR #### [id number] [place], [place] [address] Sodium [Moles/Vol] 136 mmol/L Normal 136-145 [facility] Comment on above: Performed By: #### C BC, ADIFF, VANCT, ANEU, GFR, CMP, ESR #### [id number] [place], [place] [address] Total Protein 6.8 G/dL Normal 6.4-8.2 [facility] Comment on above: Performed By: #### C BC, ADIFF, VANCT, ANEU, GFR, CMP, ESR #### [id number] [place], [place] [address] Urea nitrogen [Mass/Vol] 22 mg/dL High 7-18 [facility] Comment on above: Performed By: #### C BC, ADIFF, VANCT, ANEU, GFR, CMP, ESR #### [id number] [place], [place] [address] CT ABD/PELVIS W/ IV CONTRAST ONLYon 02-01-2024 CT ABD/PELVIS W/ IV CONTRAST ONLY ORIGINAL EXAMINATION: CT OF THE ABDOMEN AND PELVIS WITH CONTRAST 02/01/2024 1:51 pm TECHNIQUE: CT of the abdomen and pelvis was performed with the administration of intravenous contrast. Multiplanar reformatted images are provided for review. Automated exposure control, iterative reconstruction, and/or weight based adjustment of the mA/kV was utilized to reduce the radiation dose to as low as reasonably achievable. COMPARISON: CT PET May 18, 2023 HISTORY: ORDERING SYSTEM PROVIDED HISTORY: Reason for Exam: Pt c/o RLQ abdominal pain x 4 months. Pt denies n/v/d. abdominal pain FINDINGS: Findings at the L2-3 disc show marked progression since radiographs December 06, 2023. There is endplate vertebral destruction with some paravertebral soft tissue swelling. No definite evidence for epidural fluid collection. Minor degenerative changes elsewhere in the spine are similar to the prior exam. Moderate hip osteoarthritis is noted. The lung bases are unremarkable. Small sliding hiatal hernia noted. Liver, spleen, adrenal glands and pancreas are unremarkable. A right renal cyst is present. No other kidney finding. No adenopathy, free air or free fluid seen. Solid pelvic organs and urinary bladder are grossly normal. Moderate diverticulosis is present at the sigmoid colon with scattered diverticula elsewhere. No evidence for diverticulitis. No other GI tract abnormality seen. The appendix is normal. No additional contributory finding. IMPRESSION: 1. Prominent discitis/osteomyelitis at L2-3. A drainable fluid collection is not grossly evident on this exam. 2. No other acute abnormality identified. Moderate sigmoid diverticulosis without diverticulitis. Interpreted by: Daniel Perry MD Preliminary Report By: Daniel Perry MD Electronically signed By Daniel Perry MD Dictated Date: 02/01/2024 1:53:12 PM Prelim Date: 02/01/2024 1:58:29 PM Sign Date: 02/01/2024 1:58:29 PM Ordering Provider: LAURA Moss [facility] LABORATORYOrdered By: SYSTEM SYSTEM on 02-01-2024 Magnesium [Mass/Vol] 1.4 mg/dL Low 1.6 - 2 .4 mg/dL AH ADM SS Albumin BCP dye [Mass/Vol] 3.2 G/dL Low 3.4 - 4.8 G/dL AO ADM SS Albumin/Globulin [Mass ratio] 0.9 {ratio} Low 1.1 - 2.5 ratio AO ADM SS ALP [Catalytic activity/Vol] 82 U/L Normal 40 - 135 U/L AO ADM SS ALT With P-5'-P [Catalytic activity/Vol] 45 U/L Normal 14 - 59 U/L AO ADM SS AST With P-5'-P [Catalytic activity/Vol] 59 U/L High 10 - 40 U/L AO ADM SS Basophils (Bld) [#/Vol] 0.1 103/mcL Normal 0.0 - 0.2 10^3/mcL AO Workflow SS Basophils/100 WBC (Bld) 1.1 % Normal 0.0 - 2.5 % AO Workflow SS Bilirubin [Mass/Vol] 0.8 mg/dL Normal 0.2 - 1 .0 mg/dL AO ADM SS Comment on above: Interpretive Data: U se of this assay is not recommended for patients undergoing treatment with eltrombopag due to the potential for falsely elevated results. Calcium [Mass/Vol] 9.8 mg/dL Normal 8.4 - 10. 2 mg/dL AO ADM SS Chloride [Moles/Vol] 101 mmol/L Normal 98 - 10 7 mmol/L AO ADM SS CO2 [Moles/Vol] 27 mmol/L Normal 23 - 31 mmol/L AO ADM SS Creatinine [Mass/Vol] 0.97 mg/dL Normal 0.55 - 1.02 mg/dL AO ADM SS Comment on above: Interpretive Data: T esting performed on Siemens Dimension EXL analyzer using a modified kinetic Gagandeep technique. Electrolyte Balance 8.0 mEq/L Normal 4.0 - 15 .0 mEq/L AO ADM SS Eosinophil, Absolute 0.2 103/mcL Normal 0.0 - 0 .7 10^3/mcL AO Workflow SS Eosinophils/100 WBC (Bld) 2.6 % Normal 0.0 - 7.0 % AO Workflow SS Erythrocyte distribution width (RBC) [Ratio] 14.3 % Normal 11.5 - 15.5 % AO Workflow SS GFR/1.73 sq M.predicted among blacks MDRD (S/P/Bld) [Vol rate/Area] 69 ml/min/1.73sqm Invalid Interpretation Code AO Chemistry S Comment on above: Interpretive Data: GFR Population mean for , Non- Americans Ages 20-29 = 116 mL/min/1.73 sq.m. Ages 30-39 = 107 mL/min/1.73 sq.m. Ages 40-49 = 99 mL/min/1.73 sq.m. Ages 50-59 = 93 mL/min/1.73 sq.m. Ages 60-69 = 85 mL/min/1.73 sq.m. Ages 70+ = 75 mL/min/1.73 sq.m. Chronic Kidney Disease: Less than 60 mL/min/1.73 square meters End Stage Renal Disease: Less than 15 mL/min/1.73 square meters GFR/1.73 sq M.predicted among non-blacks MDRD (S/P/Bld) [Vol rate/Area] 57 ml/min/1.73sqm Invalid Interpretation Code AO Chemistry S Comment on above: Interpretive Data: GFR Population mean for , Non- Americans Ages 20-29 = 116 mL/min/1.73 sq.m. Ages 30-39 = 107 mL/min/1.73 sq.m. Ages 40-49 = 99 mL/min/1.73 sq.m. Ages 50-59 = 93 mL/min/1.73 sq.m. Ages 60-69 = 85 mL/min/1.73 sq.m. Ages 70+ = 75 mL/min/1.73 sq.m. Chronic Kidney Disease: Less than 60 mL/min/1.73 square meters End Stage Renal Disease: Less than 15 mL/min/1.73 square meters Globulin 3.6 G/dL Invalid Interpretation Code AO ADM SS Glucose [Mass/Vol] 133 mg/dL High 80 - 115 mg/dL AO ADM SS Hematocrit (Bld) [Volume fraction] 40.6 % Normal 34.0 - 46.0 % AO Workflow SS Hemoglobin (Bld) [Mass/Vol] 13.7 G/dL Normal 12.0 - 16.0 G/dL AO Workflow SS Lipase [Catalytic activity/Vol] 26 U/L Normal 16 - 77 U/L AO ADM SS Lymphocytes (Bld) [#/Vol] 2.7 103/mcL Normal 0.9 - 4.3 10^3/mcL AO Workflow SS Lymphocytes/100 WBC (Bld) 34.0 % Normal 20.0 - 40.0 % AO Workflow SS MCH (RBC) [Entitic mass] 31.5 pg Normal 27.0 - 33.0 pg AO Workflow SS MCHC 33.8 G/dL Normal 32.0 - 36.0 G/dL AO Workflow SS MCV (RBC) [Entitic vol] 93.1 fL Normal 80.0 - 99.0 fL AO Workflow SS Monocyte distribution width Auto (Bld) [Entitic vol] 22.13 1 High 0.00 - 20.00 AO Workflow SS Comment on above: Result Comment: For adults in ED, MDW>20.0 may be associated with a higher risk of sepsis during the first 12hrs of hospital admission Monocytes (Bld) [#/Vol] 0.6 103/mcL Normal 0.1 - 1.4 10^3/mcL AO Workflow SS Monocytes/100 WBC (Bld) 7.9 % Normal 2.0 - 13.0 % AO Workflow SS Neutrophils (Bld) [#/Vol] 4.4 103/mcL Normal 2.3 - 8.1 10^3/mcL AO Workflow SS Neutrophils/100 WBC (Bld) 54.4 % Normal 50.0 - 75.0 % AO Workflow SS Platelet mean volume (Bld) [Entitic vol] 8.1 fL Normal 6.6 - 10.5 fL AO Workflow SS Platelets (Bld) [#/Vol] 149 103/mcL Low 150 - 450 10^3/mcL AO Workflow SS Potassium [Moles/Vol] 4.0 mmol/L Normal 3.5 - 5.1 mmol/L AO ADM SS Protein [Mass/Vol] 6.8 G/dL Normal 6.4 - 8.2 G/dL AO ADM SS RBC (Bld) [#/Vol] 4.36 106/mcL Normal 4.10 - 5.3 0 10^6/mcL AO Workflow SS Sodium [Moles/Vol] 136 mmol/L Normal 136 - 145 mmol/L AO ADM SS Urea nitrogen [Mass/Vol] 22 mg/dL High 7 - 18 mg/dL AO ADM SS Urea nitrogen/Creatinine [Mass ratio] 23 ratio Normal 7 - 27 ratio AO ADM SS WBC (Bld) [#/Vol] 8.1 103/mcL Normal 4.5 - 10.8 10^3/mcL AO Workflow SS LABORATORYOrdered By: Dora gaona on 02-01-2024 Blood Glucose Testing Reason Routine (02/01/24 3:23 PM) [facility] Glucose [Mass/Vol] 138 mg/dL High 82 - 115 mg/dL [facility] LABORATORYOrdered By: Jose Garrett on 02-01-2024 Appearance (U) Clear (02/01/24 2:42 PM) Normal Clear AO Auto Urine SS Bilirubin Ql (U) Negative (02/01/24 2:42 PM) Normal Negative AO Auto Urine SS Color (U) Yellow (02/01/24 2:42 PM) Normal AO Auto Urine SS Glucose Test strip (U) [Mass/Vol] Negative Normal Negative AO Auto Urine SS Hemoglobin Auto test strip (U) [Mass/Vol] Negative (02/01/24 2:42 PM) Normal Negative AO Auto Urine SS Ketones Ql (U) Negative Normal Negative AO Auto Ur ine SS UA Leuk Est Negative (02/01/24 2:42 PM) Normal Negative AO Auto Urine SS UA Nitrite Negative (02/01/24 2:42 PM) Normal Negative AO Auto Urine SS UA pH 5.5 (02/01/24 2:42 PM) Normal 5.0 - 8.0 AO Auto Urine SS UA Protein Negative Normal Negative AO Auto Urine SS UA Spec Grav 1.015 (02/01/24 2:42 PM) Normal 1.015-1.025 AO Auto Urine SS UA Specimen Type Clean Catch (02/01/24 2:42 PM) Normal AO Auto Urine SS UA Urobilinogen 0.2 E.U./dL Normal 0.2-1.0 AO Auto Urine SS LABORATORYOrdered By: Carmela Greene on 02-01-2024 Blood Glucose Testing Reason Routine (02/01/24 2:33 PM) [facility] Glucose [Mass/Vol] 133 mg/dL High 82 - 115 mg/dL [facility] LIPon 02-01-2024 Lipase Level 26 U/L Normal 16-77 [facility] Comment on above: Performed By: #### C BC, ADIFF, VANCT, ANEU, GFR, CMP, ESR #### [address] [address] MGon 02-01-2024 Magnesium [Mass/Vol] 1.4 mg/dL Low 1.6-2.4 [facility] Comment on above: Performed By: #### A CYNDI, ADIFF, MG, CBC, GFR, BMP ####[address] [address] UAon 02-01-2024 Color (U) Yellow Normal [facility] Comment on above: Performed By: #### U A #### [address] [address] Glucose (U) [Mass/Vol] Negative Normal Negative [facility] Comment on above: Performed By: #### U A #### [address] [address] Ketones Ql (U) Negative Normal Negative [facility] Comment on above: Performed By: #### U A #### [address] [address] UA Appear Clear Normal Clear [facility] Comment on above: Performed By: #### U A #### [address] [address] UA Blood Negative Normal Negative [facility] Comment on above: Performed By: #### U A #### [place] [address] UA Leuk Est Negative Normal Negative [facility] Comment on above: Performed By: #### U A #### [place] [address] UA Nitrite Negative Normal Negative [facility] Comment on above: Performed By: #### U A #### [place] [address] UA pH 5.5 Normal 5.0 - 8.0 [facility] Comment on above: Performed By: #### U A #### [place] [address] UA Protein Negative Normal Negative [facility] Comment on above: Performed By: #### U A #### [place] [address] UA Spec Grav 1.015 Normal 1.015-1.025 [facility] Comment on above: Performed By: #### U A #### [place] [address] UA Specimen Type Clean Catch Normal [facility] Comment on above: Performed By: #### U A #### [place] [address] UA Urobilinogen 0.2 E.U./dL Normal 0.2-1.0 [facility] Comment on above: Performed By: #### U A #### [place] [address] Urobilinogen (U) [Mass/Vol] Negative Normal Negative [facility] Comment on above: Performed By: #### U A #### [facility] [address] [place], [place] [address] Gastroenterology Visit Repor ton 01-05-2024 Gastroenterology Visit Report [facility] [address] [place] [address] OFFICE VISIT Date of Service: 01/05/24 MR#: [id number] Acct: [id number] Name: GLORIA RODRIGUEZ Rep #: [id number] : 1955 Provider: PENNIE Chambers Age/Sex: 68/F Location: [facility] Status: Signed Intake Vital Signs 11/22/23 14:13 12/10/23 10:09 Height 5 ft 4 in 5 ft 9 in Intake Visit Reasons: Melena Chief Complaint: establishment Allergies codeine Allergy (Severe, Verified 12/10/23 10:09) MEMORY LOSS egg Allergy (Severe, Verified 12/10/23 10:09) FLU SYMTOPMS, WEEKNESS morphine Allergy (Severe, Verified 12/10/23 10:09) CARDIAC ARREST venom-honey bee (bee venom (honey bee)) Allergy (Severe, Verified 12/10/23 10:09) STOP BREATHING vortioxetine (From Brintellix) Allergy (Severe, Verified 12/10/23 10:09) LEGS FELT ON FIRE calcium carbonate (From Salagen (aspirin)) Allergy (Intermediate, Verified 12/10/23 10:09) PT UNSURE OF REACTION magnesium (From Salagen (aspirin)) Allergy (Intermediate, Verified 12/10/23 10:09) PT UNSURE OF REACTION aspirin Allergy (Unknown, Verified 12/10/23 10:09) Unknown hydrocodone (From Vicodin) Allergy (Unknown, Verified 12/10/23 10:09) [place] DOES NOT REMEMBER hydrocodone bitartrate (From Vicodin) Allergy (Unknown, Verified 12/10/23 10:09) PATIENT DOES NOT REMEMBER Penicillins Allergy (Unknown, Verified 12/10/23 10:09) Hives propoxyphene napsylate (From Darvocet-N 100) Allergy (Unknown, Verified 12/10/23 10:09) [place] DOES NOT REMEMBER Influenza Virus Vaccines Adverse Reaction (Severe, Verified 12/10/23 10:09) DEHYDRATION Have you fallen in the past year?: Yes (pt reports she fell two weeks ago ) Nurse's Note: OV 01.05.24 Pt here for abdominal pain. Pt denies diarrhea, constipation, or blood in stools. Has a formed BM every 2-3 days. Pt last colonoscopy about 20 years ago. [facility] Pneumonia Cough Anxiety disorder, unspecified Post-menopausal Wears hearing aid Wears glasses Wears dentures Cancer Depression Anxiety Bipolar disorder History of renal disease Insulin dependent diabetes mellitus Diabetes Arthritis High cholesterol Excessive bleeding Back pain Injury of back History of ulceration History of IBS Gastric reflux Former smoker BiPAP (biphasic positive airway pressure) dependence On home oxygen therapy Shortness of breath on exertion Chronic cough History of edema History of echocardiogram History of stress test Cardiology follow-up encounter Left bundle branch block (LBBB) Essential hypertension Carcinoid tumor Breast cancer Bipolar disorder Bowel obstruction Sleep apnea Hyperlipidemia Hernia GERD (gastroesophageal reflux disease) Diabetes mellitus Depression COPD (chronic obstructive pulmonary disease) Surgical History Hx of surgical procedure Hx of umbilical hernia repair History of pneumonectomy (02/18/21) History of left heart catheterization (01/28/16) LEFT EYE SURGERY History of dental surgery History of lumpectomy of left breast History of hernia repair History of cholecystectomy Family History Mother Breast cancer, Onset Age: 65 Thyroid disorder Glaucoma Diabetes Hypertension Father , Age 49 (Mi age 48) CAD (coronary artery disease) Myocardial infarction, Onset Age: 48 Diabetes Uncle , of Myocardial infarctions CAD (coronary artery disease) Myocardial infarction Grandmother CVA (cerebral vascular accident) Social History number of children: 0 current occupational status: disabled Smoking Status: Former smoker alcohol intake: current alcohol intake frequency: holidays/special occasions only what type of physical activity do you participate in: none seatbelt use: always do you feel safe at home: Yes HPI HPI Chief Complaint: establishment Details: GLORIA RODRIGUEZ, is a 68 F who presents to the office today for establishment with [facility]. Patient has a PMHx of MARGARETTE, breast cancer, depression, DM, and LBBB. She was refered from Dr. Dean as she mentioned to him she has black stools. She does not feel this is a big deal as she has this happen periodically when she is stressed. She is not currently having black stools. She has a soft brown bowel movement daily. She does omeprazole 40 mg a day and has no heartburn. She has a lot going on right now with chronic back pain, UTI and pelvic pain. She does not wish to have an EGD done now. She denies abdominal pain, heartburn, n/v, constipation or melena. Her last CBC was at the end of November 2023 and showed no signs of anemia. ROS Const Co (more content not included)... Normal [facility] Urine Cultureon 12-11-2023 URC #1,2 Below infection level. Bacteria Ur Cult #1 PROBABLE PROTEUS SPECIES Gram negative anam Scio Count <1000 GNR lactose clinical physician assistant Scio Count <1000 Normal [facility] Comment on above: Performed By: #### M 100.2200 ####[facility] [id number] [facility] [place], [place], [address] Abdomen/Pelvis W IV Cont ONL Yon 12-10-2023 Abdomen/Pelvis W IV Cont ONLY [facility] Imaging Services [address] [place], [place] [address] Abdomen/Pelvis W IV Cont ONLY MR#: [id number] Acct: [id number] Name: GLORIA RODRIGUEZ Rep #: [id number] : 1955 F 67 From: Ron Mcintosh PCP: Dr. Agnes Hernandez DO Status: REG ER Study: Abdomen/Pelvis W IV Cont ONLY Date of Exam: Exam# [id number] Ordering Dr: Jake Montalvo DO [id number] STUDY: CT ABDOMEN AND PELVIS WITH CONTRAST REASON FOR EXAM: Female, 67 years old. Abdominal pain RADIATION DOSAGE (If Supplied By Facility): CTDIvol = ( 34.99 ) mGy, DLP = ( 1948.11 ) mGycm TECHNIQUE: IV 100mL Isovue-370 was administered. Transaxial images were obtained from the dome of the diaphragm to the symphysis pubis. Multiplanar coronal and sagittal images were reformatted. The protocol utilizes one or more of the following dose reduction techniques: automated exposure control, adjustment of mA and/or kV according to patient size,and/or use of iterative reconstruction technique. COMPARISON: Prior study dated: 11/22/2023 FINDINGS: Stable 7 mm right lower lobe nodule for which further follow-up exam is recommended. Normal heart size. Mild pericardial thickening is again seen. Coronary calcifications. No evidence of pericardial effusion. Mild hepatic steatosis. Absent gallbladder consistent with previous cholecystectomy. Normal spleen. There is diffuse atrophy of the pancreas. Normal bilateral adrenal glands. There is a small hiatal hernia. Normal small intestine. Fecal retention. Diverticulosis without evidence of acute diverticulitis. The appendix is visualized and appears normal. Atherosclerotic calcifications of the abdominal aorta without evidence of aneurysm. No retroperitoneal adenopathy. Normal right kidney. Normal left kidney. Normal urinary bladder. Normal abdominal wall. Unchanged osseous structures. CT/Abdomen/Pelvis W IV Cont ONLY IMPRESSION: 1. No focal acute inflammatory process. 2. Stable 7 mm right lower lobe nodule for which further follow-up exam in 6 months is recommended. Electronically Signed: Ron Thorpe MD at 12:14 EDT , CC: Dr. Jake Montalvo, DO; Dr. Agnes Hernandez DO Cube Machine Tender: Signed Normal [facility] CBC W/Diff, Automatedon 11-17 Absolute Lymph 2.17 X10 3/uL Normal 0.83-4.51 [facility] Comment on above: Performed By: #### L 100.0100, L500.4050 ####[facility] [address] [place], [address] Absolute Neut 2.9 X10 3/uL Normal 2.0-7.7 [facility] Comment on above: Performed By: #### L 100.0100, L500.4050 ####[facility] [address] [place], [address] Basophils/100 WBC (Bld) 0.3 % Normal 0-1 [facility] Comment on above: Performed By: #### L 100.0100, L500.4050 ####[facility] [address] [place], [address] Eosinophils/100 WBC (Bld) 5.6 % High 0-5 [facility] Comment on above: Performed By: #### L 100.0100, L500.4050 ####[facility] [address] [place], [address] Erythrocyte distribution width (RBC) [Ratio] 14.4 % Normal 11.6-14.6 [facility] Comment on above: Performed By: #### L 100.0100, L500.4050 ####[facility] [address] [place], [address] Hematocrit (Bld) [Volume fraction] 37.1 % Normal 37-47 [facility] Comment on above: Performed By: #### L 100.0100, L500.4050 ####[facility] [address] [place], [address] Hemoglobin (Bld) [Mass/Vol] 12.5 g/dL Normal 12.0-15.0 [facility] Comment on above: Performed By: #### L 100.0100, L500.4050 ####[facility] [address] [place], [address] IG% 0.200 Normal 0.0-0.9 [facility] Comment on above: Result Comment: IG% - Immature Granulocytes (promyelocytes, myelocytes and metamyelocytes) > 1% indicates that a LEFT SHIFT is Present. Performed By: #### L 100.0100, L500.4050 ####[facility] [address] [place], [address] Lymphocytes/100 WBC (Bld) 36.8 % Normal 19-41 [facility] Comment on above: Performed By: #### L 100.0100, L500.4050 ####[facility] [address] [place], [address] MCH (RBC) [Entitic mass] 31.1 pg Normal 27.0-32.0 [facility] Comment on above: Performed By: #### L 100.0100, L500.4050 ####[facility] [address] [place], [address] MCHC (RBC) [Mass/Vol] 33.7 g/dL Normal 32-36 [facility] Comment on above: Performed By: #### L 100.0100, L500.4050 ####[facility] [address] [place], [address] MCV (RBC) [Entitic vol] 92.3 fL Normal 81-99 [facility] Comment on above: Performed By: #### L 100.0100, L500.4050 ####[facility] [address] [place], [address] Monocytes/100 WBC (Bld) 7.1 % Normal 0-10 [facility] Comment on above: Performed By: #### L 100.0100, L500.4050 ####[facility] [address] [place], [address] Neutrophils/100 WBC (Bld) 50.0 % Normal 47-70 [facility] Comment on above: Performed By: #### L 100.0100, L500.4050 ####[facility] [address] [place], [address] Nucleated RBC (Bld) [#/Vol] 0 10*3/uL Normal 0-5 [facility] Comment on above: Performed By: #### L 100.0100, L500.4050 ####[facility] [address] [place], [address] Platelet mean volume (Bld) [Entitic vol] 10.0 fL Normal 6.2-12.0 [facility] Comment on above: Performed By: #### L 100.0100, L500.4050 ####[facility] [address] [place], [address] Platelets (Bld) [#/Vol] 132 10*3/uL Low 150-450 [facility] Comment on above: Performed By: #### L 100.0100, L500.4050 ####[facility] [address] [place], [address] RBC (Bld) [#/Vol] 4.02 10*6/uL Low 4.2-5.4 [facility] Comment on above: Performed By: #### L 100.0100, L500.4050 ####[facility] [address] [place], [address] RDW SD 48.0 fl High 35.1-43.9 [facility] Comment on above: Performed By: #### L 100.0100, L500.4050 ####[facility] [address] [place], [address] WBC (Bld) [#/Vol] 5.9 10*3/uL Normal 4.4-11.0 [facility] Comment on above: Performed By: #### L 100.0100, L500.4050 ####[facility] [address] [place], [address] Comprehensive Metabolic Prof ilon 12-10-2023 Albumin [Mass/Vol] 3.0 g/dL Low 3.2-5.0 [facility] Comment on above: Performed By: #### L 100.0100, L500.4050 ####[facility] [address] [place], [address] Albumin/Globulin [Mass ratio] 0.7 {ratio} Low 0.9-2.4 [facility] Comment on above: Performed By: #### L 100.0100, L500.4050 ####[facility] [address] [place], [address] ALK P 79 U/L Normal 45-117 [facility] Comment on above: Performed By: #### L 100.0100, L500.4050 ####[facility] [address] [place], [address] ALT [Catalytic activity/Vol] 38 U/L Normal 13-56 [facility] Comment on above: Performed By: #### L 100.0100, L500.4050 ####[facility] [address] [place], [address] AST [Catalytic activity/Vol] 44 U/L High 15-37 [facility] Comment on above: Performed By: #### L 100.0100, L500.4050 ####[facility] [address] [place], [address] Bilirubin [Mass/Vol] 0.60 mg/dL Normal 0.20-1.[address] [facility] Comment on above: Result Comment: For patients on eltrombopag therapy, use of Dimension [place] TBIL is not recommended. Performed By: #### L 100.0100, L500.4050 ####[facility] [address] [place], [address] BUN/CRE 20.4 RATIO High 10-20 [facility] Comment on above: Performed By: #### L 100.0100, L500.4050 ####[facility] [address] [place], [address] CA,Total 10.1 mg/dL Normal 8.5-10.1 [facility] Comment on above: Performed By: #### L 100.0100, L500.4050 ####[facility] [address] [place], [address] Chloride [Moles/Vol] 105 mmol/L Normal 98-[address] [facility] Comment on above: Performed By: #### L 100.0100, L500.4050 ####[facility] [address] [place], [address] CO2 [Moles/Vol] 27.0 mmol/L Normal 21.0-32.0 [facility] Comment on above: Performed By: #### L 100.0100, L500.4050 ####[facility] [address] [place], [address] Creatinine [Mass/Vol] 1.03 mg/dL High 0.55-1.02 [facility] Comment on above: Result Comment: The validity of the calculated GFR GFRAA in patients over 70 years has not been determined. Clinical correlation is essential. Performed By: #### L 100.0100, L500.4050 ####[facility] [address] [place], [address] ECRCL 80.22 ml/min Normal [facility] Comment on above: Performed By: #### L 100.0100, L500.4050 ####[facility] [address] [place], [address] EST GFR - AA 69 mL/min Normal >60 [facility] Comment on above: Result Comment: Afri can Angolan GFR Calc Performed By: #### L 100.0100, L500.4050 ####[facility] [address] [place], [address] GAP 6 Normal 5-15 [facility] Comment on above: Performed By: #### L 100.0100, L500.4050 ####[facility] [address] [place], [address] GFR/1.73 sq M.predicted among non-blacks MDRD (S/P/Bld) [Vol rate/Area] 57 mL/min/{1.73_m2} Low >60 [facility] Comment on above: Result Comment: Non- GFR Calc Performed By: #### L 100.0100, L500.4050 ####[facility] [address] [place], [address] Globulin (S) [Mass/Vol] 4.3 g/dL High 2.2-4.2 [facility] Comment on above: Performed By: #### L 100.0100, L500.4050 ####[facility] [address] [place], [address] Glucose [Mass/Vol] 141 mg/dL High 74-106 [facility] Comment on above: Result Comment: Fast ing Glucose result greater than or equal to 126 mg/dL suggests DIABETES MELLITUS per A.D.A. criteria. Performed By: #### L 100.0100, L500.4050 ####[facility] [address] [place], [address] Potassium [Moles/Vol] 4.1 mmol/L Normal 3.5-5.1 [facility] Comment on above: Performed By: #### L 100.0100, L500.4050 ####[facility] [address] [place], [address] Sodium [Moles/Vol] 138 mmol/L Normal 136-145 [facility] Comment on above: Performed By: #### L 100.0100, L500.4050 ####[facility] [address] [place], [address] T PROT 7.3 g/dL Normal 6.4-8.2 [facility] Comment on above: Performed By: #### L 100.0100, L500.4050 ####[facility] [address] [place], [address] Urea nitrogen [Mass/Vol] 21 mg/dL High 7-18 [facility] Comment on above: Performed By: #### L 100.0100, L500.4050 ####[facility] [address] [place], [address] Emergency Department Summary on 12-10-2023 Emergency Department Summary [facility] Medical Records Department [address] [place] [address] Emergency Department Summary 12/10/23 MR#: [id number] Acct: [id number] Name: GLORIA RODRIGUEZ Rep #: [id number] : 1955 67 From: Jake Montalvo DO PCP: Dr. Agnes Hernandez DO Status:DEP ER Location: ED HPI History of Present Illness Chief Complaint: Flank Pain Informant: patient Onset/Context/Timing Onset: Month(s) (1) Context: Gradual Onset Timing: Continuous Quality: Stabbing, cramping Location: Right flank and right lower abdomen Worsened by: Laying on right side and standing completely upright Relieved by: Nothing Narrative Narrative: Patient presents with right flank and right lower abdominal pain that has been constant for the past month. Patient describes it as stabbing and cramping. Patient states that it is worse when she lays on her right side and when she stands completely upright. Patient states nothing makes it better. Patient denies any nausea or vomiting. Patient denies any dysuria or hematuria. Patient denies any fevers or chills. Patient states she has been taking acetaminophen with no relief. [facility] Medical History Pneumonia Cough Anxiety disorder, unspecified Post-menopausal Wears hearing aid Wears glasses Wears dentures Cancer Depression Anxiety Bipolar disorder History of renal disease Insulin dependent diabetes mellitus Diabetes Arthritis High cholesterol Excessive bleeding Back pain Injury of back History of ulceration History of IBS Gastric reflux Former smoker BiPAP (biphasic positive airway pressure) dependence On home oxygen therapy Shortness of breath on exertion Chronic cough History of edema History of echocardiogram History of stress test Cardiology follow-up encounter Left bundle branch block (LBBB) Essential hypertension Carcinoid tumor Breast cancer Bipolar disorder Bowel obstruction Sleep apnea Hyperlipidemia Hernia GERD (gastroesophageal reflux disease) Diabetes mellitus Depression COPD (chronic obstructive pulmonary disease) Home Medications ???Medication ???Instructions ???Recorded ???Last Taken ???Type albuterol sulfate 90 mcg/actuation 6.7 gm IH Q4H PRN PRN Sob /Or 07/12/13 10/02/23 History aerosol inhaler Wheezing doxepin 25 mg capsule 100 mg PO QHS 01/27/16 10/02/23 History omega-3 fatty acids-fish oil 340 2 each PO BID 01/27/16 10/02/23 History mg-1,000 mg capsule oxybutynin chloride 10 mg 10 mg PO DAILY 04/30/20 10/03/23 History tablet,extended release 24 hr calcium carbonate 500 mg-vitamin 1 each PO DAILY 06/12/20 10/02/23 History D3 10 mcg (400 unit) chewable tablet omeprazole 40 mg capsule,delayed 40 mg PO DAILY 06/12/20 10/03/23 History release atenolol 50 mg tablet 50 mg PO DAILY 05/05/21 10/03/23 History multivitamin-iron 9 mg-folic acid 1 tab PO DAILY 10/01/21 10/02/23 History 400 mcg-calcium and minerals tablet (Therems-M) furosemide 20 mg tablet (Lasix) 20 mg PO BID 08/25/22 10/02/23 History allopurinol 100 mg tablet 200 mg PO DAILY 12/01/22 10/02/23 History valsartan 80 0.5 tab PO DAILY 12/01/22 10/02/23 History mg-hydrochlorothiazide 12.5 mg tablet desvenlafaxine succinate 50 mg 50 mg PO DAILY 01/26/23 10/03/23 History tablet,extended release 24 hr pregabalin 50 mg capsule 50 mg PO DAILY 02/09/23 10/03/23 History colestipol 1 gram tablet 2 g PO BID 03/01/23 10/02/23 History semaglutide 0.25 mg or 0.5 mg (2 2 mg subcut QWEEK 03/01/23 09/23/23 History mg/3 mL) subcutaneous pen injector (Ozempic) insulin degludec 100 unit/mL (3 86 unit subcut DAILY 06/21/23 10/02/23 History mL) subcutaneous pen (Tresiba FlexTouch U-100 insulin) Nebulizer machine #1 ea 07/06/23 Unknown Rx ipratropium 0.5 mg-albuterol 3 mg 3 ml inhalation Q4H PRN PRN SOB 07/06/23 10/02/23 Rx (2.5 mg base)/3 mL nebulization /OR WHEEZING #180 mL soln insulin lispro 100 unit/mL 35 unit subcut TID 09/16/23 10/02/23 History subcutaneous pen (Humalog KwikPen (U-100) Insulin) atorvastatin 40 mg tablet 80 mg PO QHS 11/22/23 Unknown History ciprofloxacin HCl 500 mg tablet 500 mg PO BID #6 TABLETS 12/10/23 Unknown Rx Allergy/AdvReac Type Severity Reaction Status Date / Time codeine Allergy Severe MEMORY LOSS Verified 12/10/23 10:09 egg Allergy Severe FLU Verified 12/10/23 10:09 SYMTOPMS, WEEKNESS morphine Allergy Severe CARDIAC Verified 12/10/23 10:09 ARREST venom-honey bee (bee venom Allergy Severe STOP Verified 12/10/23 10:09 (honey bee)) BREATHING vortioxetine (From Allergy Severe LEGS FELT Verified 12/10/23 10:09 Brintellix) ON FIRE calcium carbonate (From Allergy Intermediate PT UNSURE Verified 12/10/23 10:09 Salagen (aspirin)) OF REACTION (more content not included)... Normal [facility] Urinalysis, Completeon 12-09 BACTERIA 1+ /hpf Normal None Seen [facility] Comment on above: Order Comment: CLEAN CATCH Performed By: #### L 400.0001 #### [facility] [address] [place], [place], [id number] EPI,SQUAMOUS 0-5 SEEN Normal 5-10 [facility] Comment on above: Order Comment: CLEAN CATCH Performed By: #### L 400.0001 #### [facility] [address] [place], [address] WBC 10-25 SEEN Normal 0-5 [facility] Comment on above: Order Comment: CLEAN CATCH Performed By: #### L 400.0001 #### [facility] [address] [place], [address] BILIRUBIN URINE Negative Normal Negative [facility] Comment on above: Order Comment: CLEAN CATCH Performed By: #### L 400.0001 #### [facility] [address] [place], [address] Clarity (U) Clear Normal Clear [facility] Comment on above: Order Comment: CLEAN CATCH Performed By: #### L 400.0001 #### [facility] [address] [place], [address] Color (U) Yellow Normal Yellow [facility] Comment on above: Order Comment: CLEAN CATCH Performed By: #### L 400.0001 #### [facility] [address] [place], [address] GLUCOSE, UR Normal Normal Normal [facility] Comment on above: Order Comment: CLEAN CATCH Performed By: #### L 400.0001 #### [facility] [address] [place], [address] KETONE UR Negative Normal Negative [facility] Comment on above: Order Comment: CLEAN CATCH Performed By: #### L 400.0001 #### [facility] [address] [place], [address] LEUK ESTERASE 100 /ul Abnormal Negative [facility] Comment on above: Order Comment: CLEAN CATCH Performed By: #### L 400.0001 #### [facility] [address] [place], [address] Nitrite Ql (U) Negative Normal Negative [facility] Comment on above: Order Comment: CLEAN CATCH Performed By: #### L 400.0001 #### [facility] [address] [place], [address] OCCULT BLOOD-UR Negative Normal Negative [facility] Comment on above: Order Comment: CLEAN CATCH Performed By: #### L 400.0001 #### [facility] [address] [place], [address] pH UR 6.5 Normal 5.0 - 8.0 [facility] Comment on above: Order Comment: CLEAN CATCH Performed By: #### L 400.0001 #### [facility] [address] [place], [address] PROT DIPSTX 15 mg/dl Abnormal Negative [facility] Comment on above: Order Comment: CLEAN CATCH Performed By: #### L 400.0001 #### [facility] [address] [place], [address] SP.GR. DIPSTX 1.010 Normal 1.002-1.030 [facility] Comment on above: Order Comment: CLEAN CATCH Performed By: #### L 400.0001 #### [facility] [address] [place], [address] UROBILI Normal Normal Normal [facility] Comment on above: Order Comment: CLEAN CATCH Performed By: #### L 400.0001 #### [facility] [address] [place], [address] Mucus Ql (Urine sed) 0 SEEN Normal [facility] Comment on above: Order Comment: CLEAN CATCH Performed By: #### L 400.0001 #### [facility] [address] [place], [address] RBC 0 SEEN Normal 0-5 [facility] Comment on above: Order Comment: CLEAN CATCH Performed By: #### L 400.0001 #### [facility] [address] [place], [address] .Auto Diffon 12-06-2023 Basophil, Absolute 0.1 10 3/mcL Normal 0.0-0.2 [facility] ([place] Comment on above: Performed By: #### V IDH, CBC, LIPID, ANEU, FT4, CMP, TSH, GFR, ADIFF, A1C, FT3 ####[place] [address] [place], [place] [address] Basophils/100 WBC (Bld) 0.7 % Normal 0.0-2.5 [facility] ([place] Comment on above: Performed By: #### V IDH, CBC, LIPID, ANEU, FT4, CMP, TSH, GFR, ADIFF, A1C, FT3 ####[address] [place], [place] [address] Eosinophil, Absolute 0.5 10 3/mcL High 0.0-0.4 [facility] ([place] Comment on above: Performed By: #### V IDH, CBC, LIPID, ANEU, FT4, CMP, TSH, GFR, ADIFF, A1C, FT3 ####[address] [place], [place] [address] Eosinophils/100 WBC (Bld) 6.6 % Normal 0.0-7.0 [facility] ([place] Comment on above: Performed By: #### V IDH, CBC, LIPID, ANEU, FT4, CMP, TSH, GFR, ADIFF, A1C, FT3 ####[address] [place], [place] [address] Lymphocyte, Absolute 2.6 10 3/mcL Normal 0.8-3.9 [facility] ([place] Comment on above: Performed By: #### V IDH, CBC, LIPID, ANEU, FT4, CMP, TSH, GFR, ADIFF, A1C, FT3 ####[address] [place], [place] [address] Lymphocytes/100 WBC (Bld) 34.8 % Normal 10.0-50.0 [facility] ([place] Comment on above: Performed By: #### V IDH, CBC, LIPID, ANEU, FT4, CMP, TSH, GFR, ADIFF, A1C, FT3 ####[address] [place], [place] [address] Monocyte, Absolute 0.6 10 3/mcL Normal 0.2-1.0 [facility] ([place] Comment on above: Performed By: #### V IDH, CBC, LIPID, ANEU, FT4, CMP, TSH, GFR, ADIFF, A1C, FT3 ####[address] [place], [place] [address] Monocytes/100 WBC (Bld) 7.6 % Normal 1.7-13.0 [facility] ([place] Comment on above: Performed By: #### V IDH, CBC, LIPID, ANEU, FT4, CMP, TSH, GFR, ADIFF, A1C, FT3 ####[address] [place], [place] [address] Neutrophils/100 WBC (Bld) 50.3 % Normal 37.0-80.0 [facility] ([place] Comment on above: Performed By: #### V IDH, CBC, LIPID, ANEU, FT4, CMP, TSH, GFR, ADIFF, A1C, FT3 ####[address] [place], [place] [address] .GFRon 12-06-2023 GFR Non- 45 ml/min/1.73sqm Normal [facility] ([place] Comment on above: Result Comment: GFR Population mean for , Non- Americans Ages 20-29 = 116 mL/min/1.73 sq.m. Ages 30-39 = 107 mL/min/1.73 sq.m. Ages 40-49 = 99 mL/min/1.73 sq.m. Ages 50-59 = 93 mL/min/1.73 sq.m. Ages 60-69 = 85 mL/min/1.73 sq.m. Ages 70+ = 75 mL/min/1.73 sq.m. Chronic Kidney Disease: Less than 60 mL/min/1.73 square meters End Stage Renal Disease: Less than 15 mL/min/1.73 square meters Performed By: #### V IDH, CBC, LIPID, ANEU, FT4, CMP, TSH, GFR, ADIFF, A1C, FT3 ####[address] [place], [place] [address] GFR 54 ml/min/1.73sqm Normal [facility] ([place] Comment on above: Result Comment: GFR Population mean for , Non- Americans Ages 20-29 = 116 mL/min/1.73 sq.m. Ages 30-39 = 107 mL/min/1.73 sq.m. Ages 40-49 = 99 mL/min/1.73 sq.m. Ages 50-59 = 93 mL/min/1.73 sq.m. Ages 60-69 = 85 mL/min/1.73 sq.m. Ages 70+ = 75 mL/min/1.73 sq.m. Chronic Kidney Disease: Less than 60 mL/min/1.73 square meters End Stage Renal Disease: Less than 15 mL/min/1.73 square meters Performed By: #### V IDH, CBC, LIPID, ANEU, FT4, CMP, TSH, GFR, ADIFF, A1C, FT3 ####[place] [address] [place], [place] [address] .NEUABSon 12-06-2023 Neutrophil, Absolute 3.8 10 3/mcL Normal 2.9-6.2 [facility] ([place] Comment on above: Performed By: #### V IDH, CBC, LIPID, ANEU, FT4, CMP, TSH, GFR, ADIFF, A1C, FT3 ####[place] [address] [place], [place] [address] A1Con 12-06-2023 Glucose [Mass/Vol] 143 mg/dL Normal [facility] ([place]) Comment on above: Result Comment: Ly mated Average Glucose calculated by equation ((28.7xA1C)-46.7) Estimated average glucose (eAG) is a calculated value from Hemoglobin A1C and is truck sales representative of the average blood glucose level in the last 2-3 month period. Normal range: less than 114 mg/dL Performed By: #### V IDH, CBC, LIPID, ANEU, FT4, CMP, TSH, GFR, ADIFF, A1C, FT3 ####[place] [address] [place], [place] [address] HbA1c (Bld) [Mass fraction] 6.6 % High 4.3-6.4 [facility] ([place] Comment on above: Performed By: #### V IDH, CBC, LIPID, ANEU, FT4, CMP, TSH, GFR, ADIFF, A1C, FT3 ####[address] [place], [place] [address] CBCon 12-06-2023 Erythrocyte distribution width (RBC) [Ratio] 15.0 % High 11.5-14.5 [facility] ([place] Comment on above: Performed By: #### V IDH, CBC, LIPID, ANEU, FT4, CMP, TSH, GFR, ADIFF, A1C, FT3 ####[address] [place], [place] [address] Hematocrit (Bld) [Volume fraction] 37.9 % Normal 37.0-47.0 [facility] ([place] Comment on above: Performed By: #### V IDH, CBC, LIPID, ANEU, FT4, CMP, TSH, GFR, ADIFF, A1C, FT3 ####[address] [place], [place] [address] Hgb 13.0 G/dL Normal 12.0-16.0 [facility] ([place] Comment on above: Performed By: #### V IDH, CBC, LIPID, ANEU, FT4, CMP, TSH, GFR, ADIFF, A1C, FT3 ####[address] [place], [place] [address] MCH (RBC) [Entitic mass] 32.1 pg High 27.0-31.2 [facility] ([place] Comment on above: Performed By: #### V IDH, CBC, LIPID, ANEU, FT4, CMP, TSH, GFR, ADIFF, A1C, FT3 ####[address] [place], [place] [address] MCHC 34.2 G/dL Normal 33.0-37.0 [facility] ([place] Comment on above: Performed By: #### V IDH, CBC, LIPID, ANEU, FT4, CMP, TSH, GFR, ADIFF, A1C, FT3 ####[address] [place], [place] [address] MCV (RBC) [Entitic vol] 93.7 fL Normal 80.0-94.0 [facility] ([place] Comment on above: Performed By: #### V IDH, CBC, LIPID, ANEU, FT4, CMP, TSH, GFR, ADIFF, A1C, FT3 ####[address] [place], [place] [address] Platelet 169 10 3/mcL Normal 130-400 [facility] ([place] Comment on above: Performed By: #### V IDH, CBC, LIPID, ANEU, FT4, CMP, TSH, GFR, ADIFF, A1C, FT3 ####[address] [place], [place] [address] Platelet mean volume (Bld) [Entitic vol] 8.6 fL Normal 7.4-10.4 [facility] ([place] Comment on above: Performed By: #### V IDH, CBC, LIPID, ANEU, FT4, CMP, TSH, GFR, ADIFF, A1C, FT3 ####[address] [place], [place] [address] RBC 4.05 10 6/mcL Low 4.20-5.40 [facility] ([place] Comment on above: Performed By: #### V IDH, CBC, LIPID, ANEU, FT4, CMP, TSH, GFR, ADIFF, A1C, FT3 ####[address] [place], [place] [address] WBC 7.5 10 3/mcL Normal 4.6-10.8 [facility] ([place] Comment on above: Performed By: #### V IDH, CBC, LIPID, ANEU, FT4, CMP, TSH, GFR, ADIFF, A1C, FT3 ####[address] [place], [place] [address] CMPon 12-06-2023 Albumin Level 3.2 G/dL Low 3.4-4.8 [facility] ([place] Comment on above: Performed By: #### V IDH, CBC, LIPID, ANEU, FT4, CMP, TSH, GFR, ADIFF, A1C, FT3 ####[address] [place], [place] [address] Albumin/Globulin [Mass ratio] 0.8 {ratio} Low 1.1-2.5 [facility] ([place] Comment on above: Performed By: #### V IDH, CBC, LIPID, ANEU, FT4, CMP, TSH, GFR, ADIFF, A1C, FT3 ####[address] [place], [place] [address] ALP [Catalytic activity/Vol] 85 U/L Normal 40-135 [facility] ([place] Comment on above: Performed By: #### V IDH, CBC, LIPID, ANEU, FT4, CMP, TSH, GFR, ADIFF, A1C, FT3 ####[address] [place], [place] [address] ALT [Catalytic activity/Vol] 50 U/L Normal 14-59 [facility] ([place] Comment on above: Performed By: #### V IDH, CBC, LIPID, ANEU, FT4, CMP, TSH, GFR, ADIFF, A1C, FT3 ####[place] [address] [place], [place] [address] AST [Catalytic activity/Vol] 53 U/L High 10-40 [facility] ([place] Comment on above: Performed By: #### V IDH, CBC, LIPID, ANEU, FT4, CMP, TSH, GFR, ADIFF, A1C, FT3 ####[address] [place], [place] [address] Bili Total 0.7 mg/dL Normal 0.2-1.0 [facility] ([place] Comment on above: Result Comment: Use of this assay is not recommended for patients undergoing treatment with eltrombopag due to the potential for falsely elevated results. Performed By: #### V IDH, CBC, LIPID, ANEU, FT4, CMP, TSH, GFR, ADIFF, A1C, FT3 ####[place] [address] [place], [place] [address] BUN/Creatinine Ratio 18 ratio Normal 7-27 [facility] ([place] Comment on above: Performed By: #### V IDH, CBC, LIPID, ANEU, FT4, CMP, TSH, GFR, ADIFF, A1C, FT3 ####[address] [place], [place] [address] Calcium [Mass/Vol] 9.9 mg/dL Normal 8.4-10.2 [facility] ([place] Comment on above: Performed By: #### V IDH, CBC, LIPID, ANEU, FT4, CMP, TSH, GFR, ADIFF, A1C, FT3 ####[address] [address] [place], [place] [address] Chloride [Moles/Vol] 101 mmol/L Normal 98-107 [facility] ([place] Comment on above: Performed By: #### V IDH, CBC, LIPID, ANEU, FT4, CMP, TSH, GFR, ADIFF, A1C, FT3 ####[address] [place], [place] [address] CO2 [Moles/Vol] 30 mmol/L Normal 23-31 [facility] ([place]) Comment on above: Performed By: #### V IDH, CBC, LIPID, ANEU, FT4, CMP, TSH, GFR, ADIFF, A1C, FT3 ####[address] [place], [place] [address] Creatinine [Mass/Vol] 1.20 mg/dL High 0.55-1.02 [facility] ([place]) Comment on above: Performed By: #### V IDH, CBC, LIPID, ANEU, FT4, CMP, TSH, GFR, ADIFF, A1C, FT3 ####[address] [place], [place] [address] Electrolyte Balance 7.0 mEq/L Normal 4.0-15.0 [facility] ([place]) Comment on above: Performed By: #### V IDH, CBC, LIPID, ANEU, FT4, CMP, TSH, GFR, ADIFF, A1C, FT3 ####[address] [place], [place] [address] Globulin 3.9 G/dL Normal [facility] ([place]) Comment on above: Performed By: #### V IDH, CBC, LIPID, ANEU, FT4, CMP, TSH, GFR, ADIFF, A1C, FT3 ####[address] [place], [place] [address] Glucose [Mass/Vol] 162 mg/dL High 80-115 [facility] ([place]) Comment on above: Performed By: #### V IDH, CBC, LIPID, ANEU, FT4, CMP, TSH, GFR, ADIFF, A1C, FT3 ####[address] [place], [place] [address] Potassium [Moles/Vol] 4.3 mmol/L Normal 3.5-5.1 [facility] ([place]) Comment on above: Performed By: #### V IDH, CBC, LIPID, ANEU, FT4, CMP, TSH, GFR, ADIFF, A1C, FT3 ####[address] [place], [place] [address] Sodium [Moles/Vol] 138 mmol/L Normal 136-145 [facility] ([place]) Comment on above: Performed By: #### V IDH, CBC, LIPID, ANEU, FT4, CMP, TSH, GFR, ADIFF, A1C, FT3 ####[address] [place], [place] [address] Total Protein 7.1 G/dL Normal 6.4-8.2 [facility] ([place]) Comment on above: Performed By: #### V IDH, CBC, LIPID, ANEU, FT4, CMP, TSH, GFR, ADIFF, A1C, FT3 ####[address] [place], [place] [address] Urea nitrogen [Mass/Vol] 22 mg/dL High 7-18 [facility] ([place]) Comment on above: Performed By: #### V IDH, CBC, LIPID, ANEU, FT4, CMP, TSH, GFR, ADIFF, A1C, FT3 ####[address] [place], [place] [address] FT3on 12-06-2023 Free T3 [Mass/Vol] 2.52 pg/mL Normal 2.30-4.00 [facility] ([place]) Comment on above: Performed By: #### V IDH, CBC, LIPID, ANEU, FT4, CMP, TSH, GFR, ADIFF, A1C, FT3 ####[address] [place], [place] [address] FT4on 12-06-2023 Free T4 [Mass/Vol] 1.07 ng/dL Normal 0.76-1.46 [facility] ([place]) Comment on above: Performed By: #### V IDH, CBC, LIPID, ANEU, FT4, CMP, TSH, GFR, ADIFF, A1C, FT3 ####[address] [place], [place] [address] LIPIDon 12-06-2023 Cholesterol [Mass/Vol] 99 mg/dL Normal 0-200 [facility] ([place]) Comment on above: Result Comment: Chol esterol Reference Interval: Less than 200 Desirable 200-239 Borderline high risk 240 and above High risk Performed By: #### V IDH, CBC, LIPID, ANEU, FT4, CMP, TSH, GFR, ADIFF, A1C, FT3 ####[place] [address] [place], [place] [address] Cholesterol in HDL [Mass/Vol] 37 mg/dL Low 40-60 [facility] ([place]) Comment on above: Performed By: #### V IDH, CBC, LIPID, ANEU, FT4, CMP, TSH, GFR, ADIFF, A1C, FT3 ####[address] [place], [place] [address] Cholesterol in LDL [Mass/Vol] 6 mg/dL Normal 0-130 [facility] ([place]) Comment on above: Performed By: #### V IDH, CBC, LIPID, ANEU, FT4, CMP, TSH, GFR, ADIFF, A1C, FT3 ####[address] [place], [place] [address] Triglyceride [Mass/Vol] 282 mg/dL High 0-150 [facility] ([place]) Comment on above: Result Comment: Trig lyceride Reference Interval: Less than 150 Normal 150-199 Borderline high risk 200-499 High risk 500 or higher Very high risk Performed By: #### V IDH, CBC, LIPID, ANEU, FT4, CMP, TSH, GFR, ADIFF, A1C, FT3 ####[address] [place], [place] [address] TSHon 12-06-2023 TSH Qn 0.87 m[IU]/L Normal 0.36-3.74 [facility] ([place]) Comment on above: Performed By: #### V IDH, CBC, LIPID, ANEU, FT4, CMP, TSH, GFR, ADIFF, A1C, FT3 ####[address] [place], [place] [address] VIDHon 12-06-2023 Vit. D 25-Hydroxy 27.4 ng/mL Normal [facility] ([place]) Comment on above: Result Comment: Inte rpretive Values Based on Total 25([place]) Vitamin D: Deficient <20 ng/mL Insufficient 20 - <30 ng/mL Sufficient 30-100 ng/mL Performed By: #### V IDH, CBC, LIPID, ANEU, FT4, CMP, TSH, GFR, ADIFF, A1C, FT3 ####[address] [place], [place] [address] XR SPINE LUMBOSACRAL 2 OR 3 VIEWSon 12-06-2023 XR SPINE LUMBOSACRAL 2 OR 3 VIEWS ORIGINAL EXAMINATION: 3 XRAY VIEWS OF THE LUMBAR SPINE12/06/2023 8:43 am COMPARISON: MRI lumbar spine 12/18/2019, x-ray lumbar spine 11/29/2019 HISTORY: ORDERING SYSTEM PROVIDED HISTORY: Reason for Exam: Other intervertebral disc degeneration IMPRESSION: Diffusely decreased bone density. Levo curve of the lumbar spine centered at L1. 5 non rib-bearing lumbar vertebral bodies. Moderate degenerative changes of the sacroiliac joints. Straightening of the lumbar spine. Multilevel moderate lumbar spondylosis and facet arthrosis worse in the lower lumbar spine. Trace retrolisthesis of L1 on L2. Redemonstrated chronic compression deformity of L1, not significantly changed from MR dated 12/18/2019 with approximately 50% loss of vertebral body height. No significant bony retropulsion. Cortical irregularity and depression of the anterior superior endplate of L3 with increased sclerosis, indeterminate, degenerative versus age-indeterminate compression fracture. Interpreted by: Erin Magaña Preliminary Report By: Andreas Gilmore Electronically signed By Erin Magaña Dictated Date: 12/06/2023 8:52:10 AM Prelim Date: 12/06/2023 10:18:09 AM Sign Date: 12/06/2023 10:18:09 AM Ordering Provider: CAIN Moss [facility]) Abdomen/Pelvis WITH Contrast on 11-22-2023 Abdomen/Pelvis WITH Contrast [facility] [place] Imaging Services [address] [place] [address] Abdomen/Pelvis WITH Contrast MR#: [id number] Acct: [id number] Name: GLORIA RODRIGUEZ Rep #: [id number] : 1955 F 67 From: Tima du MD PCP: Dr. Agnes Hernandez DO Status: REG CLI Study: Abdomen/Pelvis WITH Contrast Date of Exam: 10/09 Exam# [id number] Ordering Dr: Ean Alfonso DO [id number] STUDY: CT ABDOMEN AND PELVIS WITH CONTRAST REASON FOR EXAM: Female, 67 years old. Right lower quadrant pain RADIATION DOSAGE (If Supplied By Facility): CTDIvol = ( 17.07 ) mGy, DLP = ( 1406.48 ) mGycm TECHNIQUE: Transaxial images were obtained from the dome of the diaphragm to the symphysis pubis with oral contrast. Oral and amp; IV Gastrografin and amp; 100mL Isovue-300 was administered. Sagittal and coronal images were reconstructed. Individualized dose optimization techniques were used for this CT. COMPARISON: Comparison is made with prior study dated March 16, 2023. FINDINGS: Stable 7 mm noncalcified nodule in the right lower lobe. Stable pleural parenchymal changes at the left lung base. Coronary calcification. Minimal pericardial thickening along the posterior aspect of the pericardium overlying the left ventricle. There is decreased attenuation of the liver consistent with steatosis. Hepatomegaly. The patient is status post cholecystectomy. Normal spleen. Normal pancreas. Normal bilateral adrenal glands. Normal right kidney. Normal left kidney. Normal visualized stomach. Normal small intestine. There are multiple colonic diverticula consistent with diverticulosis. The appendix is visualized and appears normal. There is scattered atherosclerotic calcification of the abdominal aorta, without a demonstrated aneurysm. Normal inferior vena cava. Normal retroperitoneum. Distended urinary bladder. Normal abdominal wall. There are diffuse degenerative changes of the visualized lumbar spine. 50% loss of height of the superior endplate of the L1 vertebra. This is unchanged. CT/Abdomen/Pelvis WITH Contrast IMPRESSION: Hepatomegaly and fatty infiltration of the liver. Status post cholecystectomy. Stable 7 mm noncalcified nodule in the right lower lobe. Electronically Signed: Tima Aguilar MD at 11:06 EDT , CC: Dr. Agnes Hernandez, DO; Dr. Ean Alfonso DO Cube Machine Tender: Signed Normal [facility] Oncology Visit Reporton Oncology Visit Report [facility] [address] 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 History of Present Illness 67 year-old woman was found to have an abnormal mammogram in April 2013. Ultrasound of the left breast on 05/31/2013 showed an irregular nodule. Biopsy showed adenocarcinoma. She underwent a left lumpectomy and sentinel lymph node biopsy on 07/19/2013. Biopsy showed invasive ductal carcinoma. Tumor size was 1.5 cm. Lymph nodes, 02/26, were negative. ER/NV positive, HER2 negative by FISH, stage I pathology staging (pT1c, N0, M0). Oncotype DX was 11. She received radiation therapy to the left breast, completed on 10/25/2013. She started anastrozole on 11/14/2013. Bone density on 06/09/2016 showed decreasing density. She received 1st injection of Prolia on 09/23/2016. May 2017 noted to have elevated LFTs and thrombocytopenia. Abdominal ultrasound obtained 06/13/17 revealed no masses/ lesions but showed splenomegaly and fatty infiltration of liver. 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 She finished Adjuvant Arimidex on 11/15/2018. She has non-specific lung nodules. CT chest done on 02/28/2020 showed increasing L endobronchial lesion and L upper lobe nodule. PET/CT done 04/29/2020 was negative. FOB and biopsy done on 06/13/2020 showed endobronchial mass. Biopsy showed Carcinoid tumor. She was referred to Thoracic surgery but did not go for the appointment. CT scan of chest on 11/28/2020 showed 11.8mm L main stem bronchus. Had VATS with L upper lobectomy and mediastinal lymph node dissection on 02/18/2021. Pathology showed Left upper lobe bronchus Typical carcinoid, lymph node 6 negative, pT1a pN0. CT chest on 12/03/2022 showed 2 small nodules. She is on observation. Her senior support engineer found out that she had a high chromogranin A level 868 on 02/03/2023 and also has loose stools. CT a/p done on 03/16/2023 showed 7mm RLL nodule, no evidence of metastatic. Chromogranin A was 1158 on . Had Dotatate PET/CT done on 05/18/2023 was negative. She is on observation and comes for follow up. She has had black stools for the last week. [facility] Medical History Pneumonia Cough Anxiety disorder, unspecified Post-menopausal Wears hearing aid Wears glasses Wears dentures Cancer Depression Anxiety Bipolar disorder History of renal disease Insulin dependent diabetes mellitus Diabetes Arthritis High cholesterol Excessive bleeding Back pain Injury of back History of ulceration History of IBS Gastric reflux Former smoker BiPAP (biphasic positive airway pressure) dependence On home oxygen therapy Shortness of breath on exertion Chronic cough History of edema History of echocardiogram History of stress test Cardiology follow-up encounter Left bundle branch block (LBBB) Essential hypertension Carcinoid tumor Breast cancer Bipolar disorder Bowel obstruction Sleep apnea Hyperlipidemia Hernia GERD (gastroesophageal reflux disease) Diabetes mellitus Depression COPD (chronic obstructive pulmonary disease) Surgical History Hx of surgical procedure Hx of umbilical hernia repair History of pneumonectomy (02/18/21) History of left heart catheterization (01/28/16) LEFT EYE SURGERY History of dental surgery History of lumpectomy of left breast History of hernia repair History of cholecystectomy Family History Mother Breast cancer, Onset Age: 65 Thyroid disorder Glaucoma Diabetes Hypertension Father , Age 49 (Mi age 48) CAD (coronary artery disease) Myocardial infarction, Onset Age: 48 Diabetes Uncle , of Myocardial infarctions CAD (coronary artery disease) Myocardial infarction Grandmother CVA (cerebral vascular accident) Social History number of children: 0 current occupational status: disabled Smoking Status: Former smoker alcohol intake: current alcohol intake frequency: holidays/special occasions only what type of physical activity do you participate in: none seatbelt use: always do you feel safe at home: Yes Intake Vital Signs 05/24/23 14:22 10/03/23 10:08 11/22/23 14:05 11/22/23 14:13 Height 5 ft 9 in 5 ft 4 in 5 ft 4 in 5 ft 4 in Weight: 143.987 kg BMI 54.4 BP 125/77 H Blood Pressure Location Rt brachial Position Sitting Respiration 18 Pulse 89 Pulse Source Maria Luisa (more content not included)... Normal [facility] Stool Occult Blood iFOBon STOB Negative Normal [facility] Comment on above: Performed By: #### M 100.7900 #### [facility] [address] [place], [address] LYNN + Protein Elect, Serumon 11-19-2023 Albumin [Mass/Vol] 3.3 g/dL Normal 2.9-4.4 [facility] Comment on above: Order Comment: Test( s) 276888-Btcrjqlyy, Serum was developed and its performance characteristics determined by [facility]. It has not been cleared or approved by the Food and Drug Administration. N Performed By: #### L 3100.3425, L3100.4810, L3800.1800 #### [facility] [address] [place], [address] Albumin/Globulin [Mass ratio] 1.1 {ratio} Normal 0.7-1.7 [facility] Comment on above: Order Comment: Test( s) 934357-Ynvspcmmg, Serum was developed and its performance characteristics determined by [facility]. It has not been cleared or approved by the Food and Drug Administration. N Performed By: #### L 3100.3425, L3100.4810, L3800.1800 #### [facility] [address] [place], [address] HANUA-7-AKQU 0.2 g/dL Normal 0.0-0.4 [facility] Comment on above: Order Comment: Test( s) 010045-Dgateqwrg, Serum was developed and its performance characteristics determined by [facility]. It has not been cleared or approved by the Food and Drug Administration. N Performed By: #### L 3100.3425, L3100.4810, L3800.1800 #### [facility] [address] [place], [address] KPKWA-7-NTML 0.9 g/dL Normal 0.4-1.0 [facility] Comment on above: Order Comment: Test( s) 538520-Lykngzyas, Serum was developed and its performance characteristics determined by [facility]. It has not been cleared or approved by the Food and Drug Administration. N Performed By: #### L 3100.3425, L3100.4810, L3800.1800 #### [facility] [address] [place], [address] BETA GLOBULIN 1.2 g/dL Normal 0.7-1.3 [facility] Comment on above: Order Comment: Test( s) 555090-Pngieqctz, Serum was developed and its performance characteristics determined by [facility]. It has not been cleared or approved by the Food and Drug Administration. N Performed By: #### L 3100.3425, L3100.4810, L3800.1800 #### [facility] [address] [place], [place], [id number] GAMMA GLOBULIN 0.9 g/dL Normal 0.4-1.8 [facility] Comment on above: Order Comment: Test( s) 219619-Pmotehogq, Serum was developed and its performance characteristics determined by [facility]. It has not been cleared or approved by the Food and Drug Administration. N Performed By: #### L 3100.3425, L3100.4810, L3800.1800 #### [facility] [address] [place], [place], [address] Globulin (S) [Mass/Vol] 3.2 g/dL Normal 2.2-3.9 [facility] Comment on above: Order Comment: Test( s) 152909-Ecyqccgaz, Serum was developed and its performance characteristics determined by [facility]. It has not been cleared or approved by the Food and Drug Administration. N Performed By: #### L 3100.3425, L3100.4810, L3800.1800 #### [facility] [address] [place], [place], [address] LYNN RESULT,S Comment Abnormal . [facility] Comment on above: Order Comment: Test( s) 337798-Jwowwrryf, Serum was developed and its performance characteristics determined by [facility]. It has not been cleared or approved by the Food and Drug Administration. 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 PLEASE NOTE: Samples from patients receiving DARZALEX(R) (daratumumab) or SARCLISA(R)(isatuximab-[facility]) treatment can appear as an IgG kappa and mask a complete response (CR). If this patient is receiving these therapies, this LYNN assay interference can be removed by ordering test number [id number]-Mcsorsqldiuqvz, Daratumumab-Specific, Serum or 626195-Luhynxrfhbmyux, Isatuximab-Specific, Serum and submitting a new sample for testing or by calling the lab to add this test to the current sample. Performed By: #### L 3100.3425, L3100.4810, L3800.1800 #### [facility] [address] [place], [place], [address] [phone] IMMUNOGLOB A QN 519 mg/dL High 87-352 [facility] Comment on above: Order Comment: Test( s) 807634-Fmqpwfhbg, Serum was developed and its performance characteristics determined by [facility]. It has not been cleared or approved by the Food and Drug Administration. N Performed By: #### L 3100.3425, L3100.4810, L3800.1800 #### [facility] [address] [place], [address] IMMUNOGLOB G QN 946 mg/dL Normal 586-1602 [facility] Comment on above: Order Comment: Test( s) 767491-Lkpjgkalb, Serum was developed and its performance characteristics determined by [facility]. It has not been cleared or approved by the Food and Drug Administration. N Performed By: #### L 3100.3425, L3100.4810, L3800.1800 #### [facility] [address] [place], [address] IMMUNOGLOB M QN 30 mg/dL Normal 26-217 [facility] Comment on above: Order Comment: Test( s) 908448-Kvakpnxzg, Serum was developed and its performance characteristics determined by [facility]. It has not been cleared or approved by the Food and Drug Administration. N Performed By: #### L 3100.3425, L3100.4810, L3800.1800 #### [facility] [address] [place], [address] M-Baltazar 0.3 g/dL Abnormal Not Observed [facility] Comment on above: Order Comment: Test( s) 788444-Qawmsjxyj, Serum was developed and its performance characteristics determined by [facility]. It has not been cleared or approved by the Food and Drug Administration. N Performed By: #### L 3100.3425, L3100.4810, L3800.1800 #### [facility] [address] [place], [address] NOTE: Comment Normal . [facility] Comment on above: Order Comment: Test( s) 683087-Bproyadmp, Serum was developed and its performance characteristics determined by [facility]. It has not been cleared or approved by the Food and Drug Administration. N Result Comment: Prot ein electrophoresis scan will follow via computer, mail, or clerk delivery. Performed By: #### L 3100.3425, L3100.4810, L3800.1800 #### [facility] [address] [place], [address] Protein [Mass/Vol] 6.5 g/dL Normal 6.0-8.5 [facility] Comment on above: Order Comment: Test( s) 427176-Jwjdoxwdl, Serum was developed and its performance characteristics determined by [facility]. It has not been cleared or approved by the Food and Drug Administration. N Performed By: #### L 3100.3425, L3100.4810, L3800.1800 #### [facility] [address] [place], [address] L3100.4810on 4 Chromogranin A 1553.0 ng/mL Abnormal 0.0-101.8 [facility] Comment on above: Order Comment: Test( s) 898585-Nloznezdw, Serum was developed and its performance characteristics determined by [facility]. It has not been cleared or approved by the Food and Drug Administration. N Result Comment: Rattling Machine Tender mogranin A performed by Rizzoma/NETpeas KRYPTOR methodology Values obtained with different assay methods or kits cannot be used interchangeably. Performed By: #### L 3100.3425, L3100.4810, L3800.1800 #### [facility] [address] [place], [address] Serotonin, Serumon 4 SEROTONIN,SERUM 13 ng/mL Normal 8-217 [facility] Comment on above: Order Comment: Test( s) 885046-Yjftmwpbk, Serum was developed and its performance characteristics determined by [facility]. It has not been cleared or approved by the Food and Drug Administration. N Result Comment: Perf ormed at: - [address] [id number] Process Control Board Operator: Leodan Savage PhD, Phone: [phone] Performed at: [facility] [address] [id number] Process Control Board Operator: Francy Blanco MD, Phone: [phone] Performed By: #### L 3100.3425, L3100.4810, L3800.1800 #### [facility] [address] [place], [address] Immunoglobulins G/A/Mon 08-0 IMMUNOGLOB A QN 508 mg/dL High 87-352 [facility] Comment on above: Order Comment: N Performed By: #### L 3130.0010, L504.2610, L500.4050, L3200.1200, L100.0100 ####[facility] [address] [place], [address] IMMUNOGLOB G QN 957 mg/dL Normal 586-1602 [facility] Comment on above: Order Comment: N Performed By: #### L 3130.0010, L504.2610, L500.4050, L3200.1200, L100.0100 ####[facility] [address] [place], [address] IMMUNOGLOB M QN 32 mg/dL Normal 26-217 [facility] Comment on above: Order Comment: N Performed By: #### L 3130.0010, L504.2610, L500.4050, L3200.1200, L100.0100 ####[facility] [address] [place], [address] Roby Lambda Light Chainson 11-17-2023 FR KAPPA LT CHN 45.2 mg/L Abnormal 3.3-19.4 [facility] Comment on above: Order Comment: N Performed By: #### L 3130.0010, L504.2610, L500.4050, L3200.1200, L100.0100 ####[facility] [address] [place], [address] FR LAMBDA LT CH 51.5 mg/L Abnormal 5.7-26.3 [facility] Comment on above: Order Comment: N Performed By: #### L 3130.0010, L504.2610, L500.4050, L3200.1200, L100.0100 ####[facility] [address] [place], [address] KAPPA/LAMBDA % 0.88 Normal 0.26-1.65 [facility] Comment on above: Order Comment: N Result Comment: Perf ormed at: [facility] [address] [id number] Process Control Board Operator: Leodan Savage PhD, Phone: [phone] Performed By: #### L 3130.0010, L504.2610, L500.4050, L3200.1200, L100.0100 ####[facility] [address] [place], [address] CBC W/Diff, Automatedon 07-3 0-2024 Absolute Lymph 1.80 X10 3/uL Normal 0.83-4.51 [facility] Comment on above: Performed By: #### L 3130.0010, L504.2610, L500.4050, L3200.1200, L100.0100 ####[facility] [address] [place], [address] Absolute Neut 4.5 X10 3/uL Normal 2.0-7.7 [facility] Comment on above: Performed By: #### L 3130.0010, L504.2610, L500.4050, L3200.1200, L100.0100 ####[facility] [address] [place], [address] Basophils/100 WBC (Bld) 0.3 % Normal 0-1 [facility] Comment on above: Performed By: #### L 3130.0010, L504.2610, L500.4050, L3200.1200, L100.0100 ####[facility] [address] [place], [address] Eosinophils/100 WBC (Bld) 1.6 % Normal 0-5 [facility] Comment on above: Performed By: #### L 3130.0010, L504.2610, L500.4050, L3200.1200, L100.0100 ####[facility] [address] [place], [address] Erythrocyte distribution width (RBC) [Ratio] 13.7 % Normal 11.6-14.6 [facility] Comment on above: Performed By: #### L 3130.0010, L504.2610, L500.4050, L3200.1200, L100.0100 ####[facility] [address] [place], [address] Hematocrit (Bld) [Volume fraction] 36.1 % Low 37-47 [facility] Comment on above: Performed By: #### L 3130.0010, L504.2610, L500.4050, L3200.1200, L100.0100 ####[facility] [address] [place], [address] Hemoglobin (Bld) [Mass/Vol] 12.5 g/dL Normal 12.0-15.0 [facility] Comment on above: Performed By: #### L 3130.0010, L504.2610, L500.4050, L3200.1200, L100.0100 ####[facility] [address] [place], [address] IG% 0.300 Normal 0.0-0.9 [facility] Comment on above: Result Comment: IG% - Immature Granulocytes (promyelocytes, myelocytes and metamyelocytes) > 1% indicates that a LEFT SHIFT is Present. Performed By: #### L 3130.0010, L504.2610, L500.4050, L3200.1200, L100.0100 ####[facility] [address] [place], [address] Lymphocytes/100 WBC (Bld) 26.0 % Normal 19-41 [facility] Comment on above: Performed By: #### L 3130.0010, L504.2610, L500.4050, L3200.1200, L100.0100 ####[facility] [address] [place], [address] MCH (RBC) [Entitic mass] 31.3 pg Normal 27.0-32.0 [facility] Comment on above: Performed By: #### L 3130.0010, L504.2610, L500.4050, L3200.1200, L100.0100 ####[facility] [address] [place], [address] MCHC (RBC) [Mass/Vol] 34.6 g/dL Normal 32-36 [facility] Comment on above: Performed By: #### L 3130.0010, L504.2610, L500.4050, L3200.1200, L100.0100 ####[facility] [address] [place], [address] MCV (RBC) [Entitic vol] 90.3 fL Normal 81-99 [facility] Comment on above: Performed By: #### L 3130.0010, L504.2610, L500.4050, L3200.1200, L100.0100 ####[facility] [address] [place], [address] Monocytes/100 WBC (Bld) 6.5 % Normal 0-10 [facility] Comment on above: Performed By: #### L 3130.0010, L504.2610, L500.4050, L3200.1200, L100.0100 ####[facility] [address] [place], [address] Neutrophils/100 WBC (Bld) 65.3 % Normal 47-70 [facility] Comment on above: Performed By: #### L 3130.0010, L504.2610, L500.4050, L3200.1200, L100.0100 ####[facility] [address] [place], [address] Nucleated RBC (Bld) [#/Vol] 0 10*3/uL Normal 0-5 [facility] Comment on above: Performed By: #### L 3130.0010, L504.2610, L500.4050, L3200.1200, L100.0100 ####[facility] [address] [place], [address] Platelet mean volume (Bld) [Entitic vol] 10.3 fL Normal 6.2-12.0 [facility] Comment on above: Performed By: #### L 3130.0010, L504.2610, L500.4050, L3200.1200, L100.0100 ####[facility] [address] [place], [address] Platelets (Bld) [#/Vol] 120 10*3/uL Low 150-450 [facility] Comment on above: Performed By: #### L 3130.0010, L504.2610, L500.4050, L3200.1200, L100.0100 ####[facility] [address] [place], [address] RBC (Bld) [#/Vol] 4.00 10*6/uL Low 4.2-5.4 [facility] Comment on above: Performed By: #### L 3130.0010, L504.2610, L500.4050, L3200.1200, L100.0100 ####[facility] [address] [place], [address] RDW SD 44.9 fl High 35.1-43.9 [facility] Comment on above: Performed By: #### L 3130.0010, L504.2610, L500.4050, L3200.1200, L100.0100 ####[facility] [address] [place], [address] WBC (Bld) [#/Vol] 6.9 10*3/uL Normal 4.4-11.0 [facility] Comment on above: Performed By: #### L 3130.0010, L504.2610, L500.4050, L3200.1200, L100.0100 ####[facility] [address] [place], [address] Comprehensive Metabolic Prof [facility] 11-15-2023 Albumin [Mass/Vol] 3.0 g/dL Low 3.2-5.0 [facility] Comment on above: Order Comment: 1 Performed By: #### L 3130.0010, L504.2610, L500.4050, L3200.1200, L100.0100 ####[facility] [address] [place], [address] Albumin/Globulin [Mass ratio] 0.8 {ratio} Low 0.9-2.4 [facility] Comment on above: Order Comment: 1 Performed By: #### L 3130.0010, L504.2610, L500.4050, L3200.1200, L100.0100 ####[facility] [address] [place], [address] ALK P 82 U/L Normal 45-117 [facility] Comment on above: Order Comment: 1 Performed By: #### L 3130.0010, L504.2610, L500.4050, L3200.1200, L100.0100 ####[facility] [address] [place], [address] ALT [Catalytic activity/Vol] 68 U/L High 13-56 [facility] Comment on above: Order Comment: 1 Performed By: #### L 3130.0010, L504.2610, L500.4050, L3200.1200, L100.0100 ####[facility] [address] [place], [address] AST [Catalytic activity/Vol] 59 U/L High 15-37 [facility] Comment on above: Order Comment: 1 Performed By: #### L 3130.0010, L504.2610, L500.4050, L3200.1200, L100.0100 ####[facility] [address] [place], [address] Bilirubin [Mass/Vol] 0.70 mg/dL Normal 0.20-1.[address] [facility] Comment on above: Order Comment: 1 Result Comment: For patients on eltrombopag therapy, use of Dimension [place] TBIL is not recommended. Performed By: #### L 3130.0010, L504.2610, L500.4050, L3200.1200, L100.0100 ####[facility] [address] [place], [address] BUN/CRE 31.0 RATIO High 10-20 [facility] Comment on above: Order Comment: 1 Performed By: #### L 3130.0010, L504.2610, L500.4050, L3200.1200, L100.0100 ####[facility] [address] [place], [address] CA,Total 10.1 mg/dL Normal 8.5-10.1 [facility] Comment on above: Order Comment: 1 Performed By: #### L 3130.0010, L504.2610, L500.4050, L3200.1200, L100.0100 ####[facility] [address] [place], [address] Chloride [Moles/Vol] 103 mmol/L Normal 98-[address] [facility] Comment on above: Order Comment: 1 Performed By: #### L 3130.0010, L504.2610, L500.4050, L3200.1200, L100.0100 ####[facility] [address] [place], [address] CO2 [Moles/Vol] 26.0 mmol/L Normal 21.0-32.0 [facility] Comment on above: Order Comment: 1 Performed By: #### L 3130.0010, L504.2610, L500.4050, L3200.1200, L100.0100 ####[facility] [address] [place], [address] Creatinine [Mass/Vol] 1.16 mg/dL High 0.55-1.02 [facility] Comment on above: Order Comment: 1 Result Comment: The validity of the calculated GFR GFRAA in patients over 70 years has not been determined. Clinical correlation is essential. Performed By: #### L 3130.0010, L504.2610, L500.4050, L3200.1200, L100.0100 ####[facility] [address] [place], [address] ECRCL 72.28 ml/min Normal [facility] Comment on above: Order Comment: 1 Performed By: #### L 3130.0010, L504.2610, L500.4050, L3200.1200, L100.0100 ####[facility] [address] [place], [address] EST GFR - AA 60 mL/min Normal >60 [facility] Comment on above: Order Comment: 1 Result Comment: Afri can Angolan GFR Calc Performed By: #### L 3130.0010, L504.2610, L500.4050, L3200.1200, L100.0100 ####[facility] [address] [place], [address] GAP 9 Normal 5-15 [facility] Comment on above: Order Comment: 1 Performed By: #### L 3130.0010, L504.2610, L500.4050, L3200.1200, L100.0100 ####[facility] [address] [place], [address] GFR/1.73 sq M.predicted among non-blacks MDRD (S/P/Bld) [Vol rate/Area] 49 mL/min/{1.73_m2} Low >60 [facility] Comment on above: Order Comment: 1 Result Comment: Non- GFR Calc Performed By: #### L 3130.0010, L504.2610, L500.4050, L3200.1200, L100.0100 ####[facility] [address] [place], [address] Globulin (S) [Mass/Vol] 4.0 g/dL Normal 2.2-4.2 [facility] Comment on above: Order Comment: 1 Performed By: #### L 3130.0010, L504.2610, L500.4050, L3200.1200, L100.0100 ####[facility] [address] [place], [address] Glucose [Mass/Vol] 165 mg/dL High 74-106 [facility] Comment on above: Order Comment: 1 Result Comment: Fast ing Glucose result greater than or equal to 126 mg/dL suggests DIABETES MELLITUS per A.D.A. criteria. Performed By: #### L 3130.0010, L504.2610, L500.4050, L3200.1200, L100.0100 ####[facility] [address] [place], [address] Potassium [Moles/Vol] 4.0 mmol/L Normal 3.5-5.1 [facility] Comment on above: Order Comment: 1 Performed By: #### L 3130.0010, L504.2610, L500.4050, L3200.1200, L100.0100 ####[facility] [address] [place], [address] Sodium [Moles/Vol] 138 mmol/L Normal 136-145 [facility] Comment on above: Order Comment: 1 Performed By: #### L 3130.0010, L504.2610, L500.4050, L3200.1200, L100.0100 ####[facility] [address] [place], [address] T PROT 7.0 g/dL Normal 6.4-8.2 [facility] Comment on above: Order Comment: 1 Performed By: #### L 3130.0010, L504.2610, L500.4050, L3200.1200, L100.0100 ####[facility] [address] [place], [address] Urea nitrogen [Mass/Vol] 36 mg/dL High 7-18 [facility] Comment on above: Order Comment: 1 Performed By: #### L 3130.0010, L504.2610, L500.4050, L3200.1200, L100.0100 ####[facility] [address] [place], [address] LDHon 11-15-2023 LDH 152 U/L Normal 84-246 [facility] Comment on above: Order Comment: 1 Performed By: #### L 3130.0010, L504.2610, L500.4050, L3200.1200, L100.0100 ####[facility] [address] [place], [address] Bedside Glucoseon 10-03-2023 FINGERSTICK GLU 141 mg/dL High 74-106 [facility] Comment on above: Result Comment: ESSENCE PHELPS OF PATIENT CARE PER NURSING PROTOCOL Performed By: #### L 501.080 ####[facility] [address] [place], [address] Fluor Guidance for Spine Inj on 10-03-2023 Fluor Guidance for Spine Inj [facility] Imaging Services [address] [place] [address] Fluor Guidance for Spine Inj MR#: [id number] Acct: [id number] Name: GLORIA RODRIGUEZ Rep #: [id number] : 1955 F 67 From: Ron Mcintosh PCP: Dr. Agnes Hernandez DO Status: [facility] Study: Fluor Guidance for Spine Inj Date of Exam: Exam# [id number] Ordering Dr: Basim Rojas [place] [id number] STUDY: LATERAL VIEW OF THE SACRUM REASON FOR EXAM: Female, 67 years old. Caudal epidural injection FLUOROSCOPY TIME (if supplied): ( 3.9 ) minutes/seconds, radiation dose:: 1.51 mgy. One image was submitted. TECHNIQUE: Lateral view of the sacrum and coccyx was obtained for documentation only and not for diagnostic purposes. RAD/Fluor Guidance for Spine Inj IMPRESSION: Intraprocedural lateral view of the sacrum and coccyx was obtained for documentation. Electronically Signed: Ron Thorpe MD at 10:14 EDT , CC: Dr. Basim Rojas MD; Dr. Agnes Hernandez DO Cube Machine Tender: Signed [facility] MR/POSTOP.[facility] 10-03-2023 MR/POSTOP.[facility] Medical Records Department [address] [place] [address] Anesthesia Postop Eval I 10/03/23 1124 MR#: [id number] Acct: [id number] Name: GLORIA RODRIGUEZ Rep #: [id number] : 1955 67 From: Tyrone Rodriguez PHOTOGRAPHIC PRINTER PCP: Dr. Agnes Hernandez, DO Status:REG SDC Y Race: C Location: [place] [address] Anesthesia: Postop Eval I Current Vital Signs Temperature: 97 F Pulse Rate: 77 Blood Pressure: 123/70 Respiratory Rate: 16 Pulse Ox: 96 Oxygen Delivery Method: Room Air Assessment Airway patent: Yes Spontaneous unlabored respirations: Yes Mental status: Awake and Calm nausea: No Vomiting: No Anesthesia Complication: No Fluid Hydration Crystalloid volume administer (ml): 200 Total IV fluid infused: 200 Progress Note Anesthesia document: Postop Eval 1 completed: Yes 10/03/23 1125 Date Tyrone Rodriguez PHOTOGRAPHIC PRINTER Cosigner Signature: Date CC: Signed Normal [facility] MR/[id number] 10-03-2023 [facility] Medical Records Department [address] [place] [address] Anesthesia Postop Eval II 10/03/23 1240 MR#: [id number] Acct: [id number] Name: GLORIA RODRIGUEZ Rep #: [id number] : 1955 67 From: Dameon Kline MD PCP: Dr. Agnes Hernandez, DO Status:REG SDC Y Race: C Location: [place] [address] Anesthesia Postop Eval I Sum Postop Eval Completion status Anesthesia document: Postop Eval 1 completed: Yes Anesthesia Postop Eval I Summary Anesthesia Postop Eval I Summary: Anesthesia Postop Eval I: Assessment Summary Airway patent Yes 10/03/23 11:25 PHOTOGRAPHIC PRINTER.[email or web address] Spontaneous unlabored Yes 10/03/23 11:25 PHOTOGRAPHIC PRINTER.JBLOU respirations Mental status Awake,Calm 10/03/23 11:25 PHOTOGRAPHIC PRINTER.JBLOU nausea No 10/03/23 11:25 PHOTOGRAPHIC PRINTER.JBLOU Vomiting No 10/03/23 11:25 PHOTOGRAPHIC PRINTER.JBLOU Anesthesia Postop Eval I: Fluid Summary Crystalloid volume administer 200 10/03/23 11:25 PHOTOGRAPHIC PRINTER.JBLOU (ml) Colloids volume administered ( ml) Blood Product volume administered (ml) Total IV fluid infused 200 10/03/23 11:25 PHOTOGRAPHIC PRINTER.JBLOU Anesthesia Postop Eval I: Summary Notes Anesthesia Complication No 10/03/23 11:25 PHOTOGRAPHIC PRINTER.JBLOU Anesthesia Complication Comment: Post-operative progress note Anesthesia: Postop Eval II Evaluation Mental status: Awake Pain Level: 0 nausea: No Vomiting: No Complications Anesthesia Complication: No 10/03/23 1241 Date Dameon Eliud Clark Signature: Date CC: Signed Normal [facility] Operative Reporton 4 Operative Report [facility] Medical Records Department [address] [place] [address] Operative Report 10/03/23 1133 MR#: [id number] Acct: [id number] Name: GLORIA RODRIGUEZ Rep #: [id number] : 1955 67 From: Basim Rojas MD PCP: Dr. Agnes Hernandez, DO Status:[facility] Location: [place] [address] Report of Operation Date of Procedure: 10/03/23 Pre-Operative Diagnosis: Lumbosacral radiculopathy, lumbosacral degenerative disc disease, lumbosacral spinal stenosis Post-Operative Diagnosis: Lumbosacral radiculopathy, lumbosacral degenerative disc disease, lumbosacral spinal stenosis Surgery/Procedure Performed:: Diagnostic/therapeutic caudal epidural steroid injection under fluoroscopic guidance Type of Anesthesia: MAC Estimated Blood Loss (mL): Minimal Description of Procedure: DESCRIPTION OF PROCEDURE: History and physical of today was reviewed. Risks and benefits of the procedure were explained. The patient understood and agreed to proceed. Informed consent was obtained. IV inserted per routine protocol. The patient was taken to the operating room and placed in the prone position with a pillow positioned underneath the abdomen. The lower back and tailbone area was prepped and draped in a sterile fashion using iodine x3. Under fluoroscopy guidance on a lateral view, the caudal space was identified. The skin and subcutaneous tissue was anesthetized with approximately 3 mL of 1% lidocaine using a 25-gauge regular needle. Under direct visualization with fluoroscopy, using a 22-gauge 3-1/2-inch spinal needle, the needle was advanced via the skin through the sacral hiatus. The tip of the needle was passed through the sacrococcygeal ligament and advanced to approximately S4 area. After negative aspiration of blood or CSF, a total of 3 mL of contrast was injected to confirm correct placement of the needle as well as cephalad spread. The spread was followed to approximately L5 area. After confirmation on AP as well as lateral view and repeated negative aspiration, a total of 15 mL of preservative-free 0.125% Marcaine with 80 mg of Depo-Medrol was injected easily. The needle was then removed intact. The patient experienced no sign or symptoms of intrathecal or intravascular injection. The patient experienced no paresthesia. The procedure was completed without any apparent difficulty or any complications. The patient appeared to tolerate it well. ASSESSMENT AND PLAN: This is a 67-year-old female with lumbosacral radiculopathy, lumbosacral degenerative disc disease, lumbosacral spinal stenosis status post diagnostic/therapeutic caudal epidural steroid injection, patient will continue her current medications, patient will follow in approximately 2 weeks for reevaluation. Complications None 10/03/23 1134 Cosigner Signature (if applicable): CC: Dr. Basim Rojas MD; Dr. Agnes Hernandez DO Signed Normal [facility] .Auto Diffon 07-07-2023 Basophil, Absolute 0.0 10 3/mcL Normal 0.0-0.2 [facility] Comment on above: Performed By: #### T BELTRAN KILGORE, ANEU, BMP, GFR, PBNP, ADIFF, CBC #### [place] [id number] [place], [place] [address] Basophils/100 WBC (Bld) 0.3 % Normal 0.0-2.5 [facility] ([place]) Comment on above: Performed By: #### T BELTRAN KILGORE, ANEU, BMP, GFR, PBNP, ADIFF, CBC #### [address] [address] Eosinophil, Absolute 0.2 10 3/mcL Normal 0.0-0.4 [facility] ([place]) Comment on above: Performed By: #### BELTRAN LEUNG, ANEU, BMP, GFR, PBNP, ADIFF, CBC #### [address] [address] Eosinophils/100 WBC (Bld) 1.8 % Normal 0.0-7.0 [facility] ([place] Comment on above: Performed By: #### T BELTRAN KILGORE, JAY, BMP, GFR, PBNP, ADIFF, CBC #### [address] [address] Lymphocyte, Absolute 2.9 10 3/mcL Normal 0.8-3.9 [facility] ([place]) Comment on above: Performed By: #### BELTRAN LEUNG, JAY, BMP, GFR, PBNP, ADIFF, CBC #### [address] [address] Lymphocytes/100 WBC (Bld) 32.5 % Normal 10.0-50.0 [facility] ([place]) Comment on above: Performed By: #### BELTRAN LEUNG, JAY, BMP, GFR, PBNP, ADIFF, CBC #### [address] [address] Monocyte, Absolute 0.7 10 3/mcL Normal 0.2-1.0 [facility] ([place]) Comment on above: Performed By: #### BELTRAN LEUNG, ANEU, BMP, GFR, PBNP, ADIFF, CBC #### [address] [address] Monocytes/100 WBC (Bld) 7.4 % Normal 1.7-13.0 [facility] ([place] Comment on above: Performed By: #### T BELTRAN KILGORE, ANEU, BMP, GFR, PBNP, ADIFF, CBC #### [address] [address] Neutrophils/100 WBC (Bld) 58.0 % Normal 37.0-80.0 [facility] ([place] Comment on above: Performed By: #### T BELTRAN KILGORE, ANEU, BMP, GFR, PBNP, ADIFF, CBC #### [address] [address] .GFRon 07-07-2023 GFR 46 ml/min/1.73sqm Normal [facility] ([place]) Comment on above: Result Comment: GFR Population mean for , Non- Americans Ages 20-29 = 116 mL/min/1.73 sq.m. Ages 30-39 = 107 mL/min/1.73 sq.m. Ages 40-49 = 99 mL/min/1.73 sq.m. Ages 50-59 = 93 mL/min/1.73 sq.m. Ages 60-69 = 85 mL/min/1.73 sq.m. Ages 70+ = 75 mL/min/1.73 sq.m. Chronic Kidney Disease: Less than 60 mL/min/1.73 square meters End Stage Renal Disease: Less than 15 mL/min/1.73 square meters Performed By: #### T BELTRAN KILGORE, ANEU, BMP, GFR, PBNP, ADIFF, CBC #### [address] [address] GFR Non- 38 ml/min/1.73sqm Normal [facility] ([place]) Comment on above: Result Comment: GFR Population mean for , Non- Americans Ages 20-29 = 116 mL/min/1.73 sq.m. Ages 30-39 = 107 mL/min/1.73 sq.m. Ages 40-49 = 99 mL/min/1.73 sq.m. Ages 50-59 = 93 mL/min/1.73 sq.m. Ages 60-69 = 85 mL/min/1.73 sq.m. Ages 70+ = 75 mL/min/1.73 sq.m. Chronic Kidney Disease: Less than 60 mL/min/1.73 square meters End Stage Renal Disease: Less than 15 mL/min/1.73 square meters Performed By: #### T BELTRAN KILGORE, ANEU, BMP, GFR, PBNP, ADIFF, CBC #### [place] [address] .NEUABSon 07-07-2023 Neutrophil, Absolute 5.2 10 3/mcL Normal 2.9-6.2 [facility] ([place]) Comment on above: Performed By: #### T BELTRAN KILGORE, ANEU, BMP, GFR, PBNP, ADIFF, CBC #### [place] [address] CBCon 07-07-2023 Erythrocyte distribution width (RBC) [Ratio] 16.7 % High 11.5-14.5 [facility] ([place] Comment on above: Performed By: #### T BELTRAN KILGORE, JAY, BMP, GFR, PBNP, ADIFF, CBC #### [place] [address] Hematocrit (Bld) [Volume fraction] 37.5 % Normal 37.0-47.0 [facility] ([place] Comment on above: Performed By: #### T BELTRAN KILGORE, JAY, BMP, GFR, PBNP, ADIFF, CBC #### [place] [address] Hgb 12.7 G/dL Normal 12.0-16.0 [facility] ([place] Comment on above: Performed By: #### T BELTRAN KILGORE, JAY, BMP, GFR, PBNP, ADIFF, CBC #### [place] [address] MCH (RBC) [Entitic mass] 28.8 pg Normal 27.0-31.2 [facility] ([place] Comment on above: Performed By: #### T BELTRAN KILGORE, JAY, BMP, GFR, PBNP, ADIFF, CBC #### [place] [address] MCHC 34.0 G/dL Normal 33.0-37.0 [facility] ([place] Comment on above: Performed By: #### T BELTRAN KILGORE, ANEU, BMP, GFR, PBNP, ADIFF, CBC #### [address] [address] MCV (RBC) [Entitic vol] 84.7 fL Normal 80.0-94.0 [facility] ([place] Comment on above: Performed By: #### T BELTRAN KILGORE, JAY, BMP, GFR, PBNP, ADIFF, CBC #### [address] [address] Platelet 147 10 3/mcL Normal 130-400 [facility] ([place]) Comment on above: Performed By: #### T BELTRAN KILGORE, ANEU, BMP, GFR, PBNP, ADIFF, CBC #### [facility] [address] [address] Platelet mean volume (Bld) [Entitic vol] 8.6 fL Normal 7.4-10.4 [facility] ([place] Comment on above: Performed By: #### T BELTRAN KILGORE, JAY, BMP, GFR, PBNP, ADIFF, CBC #### [address] [address] RBC 4.42 10 6/mcL Normal 4.20-5.40 [facility] ([place]) Comment on above: Performed By: #### T BELTRAN KILGORE, JAY, BMP, GFR, PBNP, ADIFF, CBC #### [facility] [address] [address] WBC 9.0 10 3/mcL Normal 4.6-10.8 [facility] ([place]) Comment on above: Performed By: #### T BELTRAN KILGORE, JAY, BMP, GFR, PBNP, ADIFF, CBC #### [facility] [address] [address] CMPon 07-07-2023 Albumin Level 3.2 G/dL Low 3.4-4.8 [facility] ([place]) Comment on above: Performed By: #### T BELTRAN KILGORE, ANEU, BMP, GFR, PBNP, ADIFF, CBC #### [address] [address] Albumin/Globulin [Mass ratio] 0.8 {ratio} Low 1.1-2.5 [facility] ([place] Comment on above: Performed By: #### T BELTRAN KILGORE, JAY, BMP, GFR, PBNP, ADIFF, CBC #### [address] [address] ALP [Catalytic activity/Vol] 100 U/L Normal 40-135 [facility] ([place] Comment on above: Performed By: #### T BELTRAN KILGORE, ANEU, BMP, GFR, PBNP, ADIFF, CBC #### [address] [address] ALT [Catalytic activity/Vol] 52 U/L Normal 14-59 [facility] ([place] Comment on above: Performed By: #### T BELTRAN KILGORE, JAY, BMP, GFR, PBNP, ADIFF, CBC #### [address] [address] AST [Catalytic activity/Vol] 44 U/L High 10-40 [facility] ([place] Comment on above: Performed By: #### T BELTRAN KILGORE, JAY, BMP, GFR, PBNP, ADIFF, CBC #### [address] [address] Bili Total 0.5 mg/dL Normal 0.2-1.0 [facility] ([place] Comment on above: Result Comment: Use of this assay is not recommended for patients undergoing treatment with eltrombopag due to the potential for falsely elevated results. Performed By: #### T BELTRAN KILGORE, ANEU, BMP, GFR, PBNP, ADIFF, CBC #### [address] [address] BUN/Creatinine Ratio 22 ratio Normal 7-27 [facility] ([place]) Comment on above: Performed By: #### T BELTRAN KILGORE, JAY, BMP, GFR, PBNP, ADIFF, CBC #### [address] [address] Calcium [Mass/Vol] 9.5 mg/dL Normal 8.4-10.2 [facility] ([place]) Comment on above: Performed By: #### T BELTRAN KILGORE, ANEU, BMP, GFR, PBNP, ADIFF, CBC #### [address] [address] Chloride [Moles/Vol] 102 mmol/L Normal 98-107 [facility] ([place]) Comment on above: Performed By: #### T BELTRAN KILGORE, ANEU, BMP, GFR, PBNP, ADIFF, CBC #### [address] [address] CO2 [Moles/Vol] 27 mmol/L Normal 23-31 [facility] ([place]) Comment on above: Performed By: #### T BELTRAN KILGORE, JAY, BMP, GFR, PBNP, ADIFF, CBC #### [address] [address] Creatinine [Mass/Vol] 1.39 mg/dL High 0.55-1.02 [facility] ([place]) Comment on above: Performed By: #### T BELTRAN KILGORE, ANEU, BMP, GFR, PBNP, ADIFF, CBC #### [address] [address] Electrolyte Balance 5.0 mEq/L Normal 4.0-15.0 [facility] ([place]) Comment on above: Performed By: #### T BELTRAN KILGORE, JAY, BMP, GFR, PBNP, ADIFF, CBC #### [address] [address] Globulin 3.9 G/dL Normal [facility] ([place]) Comment on above: Performed By: #### T BELTRAN KILGORE, JAY, BMP, GFR, PBNP, ADIFF, CBC #### [address] [address] Glucose [Mass/Vol] 176 mg/dL High 80-115 [facility] ([place]) Comment on above: Performed By: #### T BELTRAN KILGORE, JAY, BMP, GFR, PBNP, ADIFF, CBC #### [address] [address] Potassium [Moles/Vol] 4.3 mmol/L Normal 3.5-5.1 [facility] ([place]) Comment on above: Performed By: #### T BELTRAN KILGORE, JAY, BMP, GFR, PBNP, ADIFF, CBC #### [address] [address] Sodium [Moles/Vol] 134 mmol/L Low 136-145 [facility] ([place]) Comment on above: Performed By: #### T BELTRAN KILGORE, JAY, BMP, GFR, PBNP, ADIFF, CBC #### [address] [address] Total Protein 7.1 G/dL Normal 6.4-8.2 [facility] ([place]) Comment on above: Performed By: #### BELTRAN LEUNG, JAY, BMP, GFR, PBNP, ADIFF, CBC #### [address] [address] Urea nitrogen [Mass/Vol] 30 mg/dL High 7-18 [facility] ([place]) Comment on above: Performed By: #### BELTRAN LEUNG, JAY, BMP, GFR, PBNP, ADIFF, CBC #### [address] [address] FT3on 07-07-2023 Free T3 [Mass/Vol] 1.73 pg/mL Low 2.30-4.00 [facility] ([place]) Comment on above: Performed By: #### BELTRAN LEUNG, JAY, BMP, GFR, PBNP, ADIFF, CBC #### [address] [address] FT4on 07-07-2023 Free T4 [Mass/Vol] 0.98 ng/dL Normal 0.76-1.46 [facility] ([place]) Comment on above: Performed By: #### T BELTRAN KILGORE, ANEU, BMP, GFR, PBNP, ADIFF, CBC #### [address] [address] LIPIDon 07-07-2023 Cholesterol [Mass/Vol] 175 mg/dL Normal 0-200 [facility] ([place]) Comment on above: Result Comment: Chol esterol Reference Interval: Less than 200 Desirable 200-239 Borderline high risk 240 and above High risk Performed By: #### T BELTRAN KILGORE, ANEU, BMP, GFR, PBNP, ADIFF, CBC #### [address] [address] Cholesterol in HDL [Mass/Vol] 39 mg/dL Low 40-60 [facility] ([place] Comment on above: Performed By: #### T BLETRAN KILGORE, JAY, BMP, GFR, PBNP, ADIFF, CBC #### [address] [address] LDL Cholesterol Not Valid Normal 0-130 [facility] ([place]) Comment on above: Result Comment: Trig lyceride >400 invalidates the calculated LDL. Performed By: #### T BELTRAN KILGORE, JAY, BMP, GFR, PBNP, ADIFF, CBC #### [address] [address] Triglyceride [Mass/Vol] 441 mg/dL High 0-150 [facility] ([place] Comment on above: Result Comment: Trig lyceride Reference Interval: Less than 150 Normal 150-199 Borderline high risk 200-499 High risk 500 or higher Very high risk Performed By: #### T BELTRAN KILGORE, JAY, BMP, GFR, PBNP, ADIFF, CBC #### [address] [address] TSHon 07-07-2023 TSH Qn 1.03 m[IU]/L Normal 0.36-3.74 [facility] ([place]) Comment on above: Performed By: #### T BELTRAN KILGORE, JAY, BMP, GFR, PBNP, ADIFF, CBC #### [address] [address] VIDHon 07-07-2023 Vit. D 25-Hydroxy 21.9 ng/mL Normal [facility] ([place]) Comment on above: Result Comment: Inte rpretive Values Based on Total 25(OH) Vitamin D: Deficient <20 ng/mL Insufficient 20 - <30 ng/mL Sufficient 30-100 ng/mL Performed By: #### BELTRAN LEUNG, JYA, BMP, GFR, PBNP, ADIFF, CBC #### [address] [address] .Auto Diffon 06-23-2023 Basophil, Absolute 0.0 10 3/mcL Normal 0.0-0.2 [facility] ([place]) Comment on above: Performed By: #### BELTRAN LEUNG, JAY, BMP, GFR, PBNP, ADIFF, CBC #### [address] [address] Basophils/100 WBC (Bld) 0.4 % Normal 0.0-2.5 [facility] ([place]) Comment on above: Performed By: #### BELTRAN LEUNG, JAY, BMP, GFR, PBNP, ADIFF, CBC #### [address] [address] Eosinophil, Absolute 0.2 10 3/mcL Normal 0.0-0.4 [facility] ([place]) Comment on above: Performed By: #### BELTRAN LEUNG, JAY, BMP, GFR, PBNP, ADIFF, CBC #### [address] [address] Eosinophils/100 WBC (Bld) 3.4 % Normal 0.0-7.0 [facility] ([place] Comment on above: Performed By: #### BELTRAN LEUNG, JAY, BMP, GFR, PBNP, ADIFF, CBC #### [address] [address] Lymphocyte, Absolute 2.2 10 3/mcL Normal 0.8-3.9 [facility] ([place]) Comment on above: Performed By: #### T BELTRAN KILGORE, ANEU, BMP, GFR, PBNP, ADIFF, CBC #### [address] [address] Lymphocytes/100 WBC (Bld) 35.6 % Normal 10.0-50.0 [facility] ([place]) Comment on above: Performed By: #### T BELTRAN KILGORE, ANEU, BMP, GFR, PBNP, ADIFF, CBC #### [address] [address] Monocyte, Absolute 0.4 10 3/mcL Normal 0.2-1.0 [facility] ([place] Comment on above: Performed By: #### T BELTRAN KILGORE, ANEU, BMP, GFR, PBNP, ADIFF, CBC #### [address] [address] Monocytes/100 WBC (Bld) 7.1 % Normal 1.7-13.0 [facility] ([place]) Comment on above: Performed By: #### T BELTRAN KILGORE, ANEU, BMP, GFR, PBNP, ADIFF, CBC #### [address] [address] Neutrophils/100 WBC (Bld) 53.5 % Normal 37.0-80.0 [facility] ([place]) Comment on above: Performed By: #### T BELTRAN KILGORE, ANEU, BMP, GFR, PBNP, ADIFF, CBC #### [address] [address] .GFRon 06-23-2023 GFR 50 ml/min/1.73sqm Normal [facility] ([place]) Comment on above: Result Comment: GFR Population mean for , Non- Americans Ages 20-29 = 116 mL/min/1.73 sq.m. Ages 30-39 = 107 mL/min/1.73 sq.m. Ages 40-49 = 99 mL/min/1.73 sq.m. Ages 50-59 = 93 mL/min/1.73 sq.m. Ages 60-69 = 85 mL/min/1.73 sq.m. Ages 70+ = 75 mL/min/1.73 sq.m. Chronic Kidney Disease: Less than 60 mL/min/1.73 square meters End Stage Renal Disease: Less than 15 mL/min/1.73 square meters Performed By: #### T BELTRAN KILGORE, ANEU, BMP, GFR, PBNP, ADIFF, CBC #### [address] [address] GFR Non- 41 ml/min/1.73sqm Normal [facility] ([place]) Comment on above: Result Comment: GFR Population mean for , Non- Americans Ages 20-29 = 116 mL/min/1.73 sq.m. Ages 30-39 = 107 mL/min/1.73 sq.m. Ages 40-49 = 99 mL/min/1.73 sq.m. Ages 50-59 = 93 mL/min/1.73 sq.m. Ages 60-69 = 85 mL/min/1.73 sq.m. Ages 70+ = 75 mL/min/1.73 sq.m. Chronic Kidney Disease: Less than 60 mL/min/1.73 square meters End Stage Renal Disease: Less than 15 mL/min/1.73 square meters Performed By: #### T BELTRAN KILGORE, ANEU, BMP, GFR, PBNP, ADIFF, CBC #### [address] [address] .MDWon 06-23-2023 Monocyte Distribution Width 19.20 Normal 0.00-20.00 [facility] ([place]) Comment on above: Result Comment: For ED adult patients suspected of sepsis, MDW<=20.0 does not rule out sepsis or risk of sepsis Performed By: #### T BELTRAN KILGORE, ANEU, BMP, GFR, PBNP, ADIFF, CBC #### [address] [address] .NEUABSon 06-23-2023 Neutrophil, Absolute 3.3 10 3/mcL Normal 2.9-6.2 [facility] ([place]) Comment on above: Performed By: #### T BELTRAN KILGORE, ANEU, BMP, GFR, PBNP, ADIFF, CBC #### [address] [address] BMPon 06-23-2023 BUN/Creatinine Ratio 22 ratio Normal 7-27 [facility] ([place] Comment on above: Performed By: #### T BELTRNA KILGORE, ANEU, BMP, GFR, PBNP, ADIFF, CBC #### [address] [address] Calcium [Mass/Vol] 9.4 mg/dL Normal 8.4-10.2 [facility] ([place]) Comment on above: Performed By: #### T BELTRAN KILGORE, ANEU, BMP, GFR, PBNP, ADIFF, CBC #### [address] [address] Chloride [Moles/Vol] 101 mmol/L Normal 98-107 [facility] ([place] Comment on above: Performed By: #### T BELTRAN KILGORE, JAY, BMP, GFR, PBNP, ADIFF, CBC #### [address] [address] CO2 [Moles/Vol] 25 mmol/L Normal 23-31 [facility] ([place]) Comment on above: Performed By: #### T BELTRAN KILGORE, JAY, BMP, GFR, PBNP, ADIFF, CBC #### [address] [address] Creatinine [Mass/Vol] 1.30 mg/dL High 0.55-1.02 [facility] ([place]) Comment on above: Performed By: #### T BELTRAN KILGORE, ANEU, BMP, GFR, PBNP, ADIFF, CBC #### [address] [address] Electrolyte Balance 11.0 mEq/L Normal 4.0-15.0 [facility] ([place] Comment on above: Performed By: #### T BELTRAN KILGORE, ANEU, BMP, GFR, PBNP, ADIFF, CBC #### [address] [address] Glucose [Mass/Vol] 276 mg/dL High 80-115 [facility] ([place]) Comment on above: Performed By: #### T BELTRAN KILGORE, JAY, BMP, GFR, PBNP, ADIFF, CBC #### [address] [address] Potassium [Moles/Vol] 4.8 mmol/L Normal 3.5-5.1 [facility] ([place]) Comment on above: Performed By: #### T BELTRAN KILGORE, JAY, BMP, GFR, PBNP, ADIFF, CBC #### [address] [address] Sodium [Moles/Vol] 137 mmol/L Normal 136-145 [facility] ([place]) Comment on above: Performed By: #### T BELTRAN KILGORE, JAY, BMP, GFR, PBNP, ADIFF, CBC #### [address] [address] Urea nitrogen [Mass/Vol] 29 mg/dL High 7-18 [facility] ([place] Comment on above: Performed By: #### BELTRAN LEUNG, JAY, BMP, GFR, PBNP, ADIFF, CBC #### [address] [address] CBCon 06-23-2023 Erythrocyte distribution width (RBC) [Ratio] 17.4 % High 11.5-14.5 [facility] ([place] Comment on above: Performed By: #### BELTRAN LEUNG, JAY, BMP, GFR, PBNP, ADIFF, CBC #### [address] [address] Hematocrit (Bld) [Volume fraction] 34.6 % Low 37.0-47.0 [facility] ([place]) Comment on above: Performed By: #### T BELTRAN KILGORE, JAY, BMP, GFR, PBNP, ADIFF, CBC #### [address] [address] Hgb 11.9 G/dL Low 12.0-16.0 [facility] ([place] Comment on above: Performed By: #### BELTRAN LEUNG, ANEU, BMP, GFR, PBNP, ADIFF, CBC #### [address] [address] MCH (RBC) [Entitic mass] 29.0 pg Normal 27.0-31.2 [facility] ([place] Comment on above: Performed By: #### T BELTRAN KILGORE, ANEU, BMP, GFR, PBNP, ADIFF, CBC #### [address] [address] MCHC 34.4 G/dL Normal 33.0-37.0 [facility] ([place] Comment on above: Performed By: #### T BELTRAN KILGORE, ANEU, BMP, GFR, PBNP, ADIFF, CBC #### [address] [address] MCV (RBC) [Entitic vol] 84.3 fL Normal 80.0-94.0 [facility] ([place] Comment on above: Performed By: #### T BELTRAN KILGORE, ANEU, BMP, GFR, PBNP, ADIFF, CBC #### [address] [address] Platelet 162 10 3/mcL Normal 130-400 [facility] ([place]) Comment on above: Performed By: #### T BELTRAN KILGORE, JAY, BMP, GFR, PBNP, ADIFF, CBC #### [address] [address] Platelet mean volume (Bld) [Entitic vol] 7.6 fL Normal 7.4-10.4 [facility] ([place]) Comment on above: Performed By: #### BELTRAN LEUNG, ANEU, BMP, GFR, PBNP, ADIFF, CBC #### [address] [address] RBC 4.11 10 6/mcL Low 4.20-5.40 [facility] ([place]) Comment on above: Performed By: #### BELTRAN LEUNG, ANEU, BMP, GFR, PBNP, ADIFF, CBC #### [address] [place], [place] [address] WBC 6.1 10 3/mcL Normal 4.6-10.8 [facility] ([place]) Comment on above: Performed By: #### T JAME, BELTRAN, ANEU, BMP, GFR, PBNP, ADIFF, CBC #### [id number] [place], [place] [address] LABORATORYOrdered By: Maria Elena Phan on 06-23-2023 Glucose [Mass/Vol] 268 mg/dL High 82 - 115 mg/dL [facility] LABORATORYOrdered By: SYSTEM SYSTEM on 06-23-2023 Basophil, Absolute 0.0 103/mcL Normal 0.0 - 0.2 10^3/mcL AO Workflow SS Basophils/100 WBC (Bld) 0.4 % Normal 0.0 - 2.5 % AO Workflow SS Calcium [Mass/Vol] 9.4 mg/dL Normal 8.4 - 10. 2 mg/dL AO ADM SS Chloride [Moles/Vol] 101 mmol/L Normal 98 - 10 7 mmol/L AO ADM SS CO2 [Moles/Vol] 25 mmol/L Normal 23 - 31 mmol/L AO ADM SS Creatinine [Mass/Vol] 1.30 mg/dL High 0.55 - 1.02 mg/dL AO ADM SS Electrolyte Balance 11.0 mEq/L Normal 4.0 - 15 .0 mEq/L AO ADM SS Eosinophil, Absolute 0.2 103/mcL Normal 0.0 - 0 .4 10^3/mcL AO Workflow SS Eosinophils/100 WBC (Bld) 3.4 % Normal 0.0 - 7.0 % AO Workflow SS Erythrocyte distribution width (RBC) [Ratio] 17.4 % High 11.5 - 14.5 % AO Workflow SS GFR/1.73 sq M.predicted among blacks MDRD (S/P/Bld) [Vol rate/Area] 50 ml/min/1.73sqm Invalid Interpretation Code AO Chemistry S Comment on above: Interpretive Data: GFR Population mean for , Non- Americans Ages 20-29 = 116 mL/min/1.73 sq.m. Ages 30-39 = 107 mL/min/1.73 sq.m. Ages 40-49 = 99 mL/min/1.73 sq.m. Ages 50-59 = 93 mL/min/1.73 sq.m. Ages 60-69 = 85 mL/min/1.73 sq.m. Ages 70+ = 75 mL/min/1.73 sq.m. Chronic Kidney Disease: Less than 60 mL/min/1.73 square meters End Stage Renal Disease: Less than 15 mL/min/1.73 square meters GFR/1.73 sq M.predicted among non-blacks MDRD (S/P/Bld) [Vol rate/Area] 41 ml/min/1.73sqm Invalid Interpretation Code AO Chemistry S Comment on above: Interpretive Data: GFR Population mean for , Non- Americans Ages 20-29 = 116 mL/min/1.73 sq.m. Ages 30-39 = 107 mL/min/1.73 sq.m. Ages 40-49 = 99 mL/min/1.73 sq.m. Ages 50-59 = 93 mL/min/1.73 sq.m. Ages 60-69 = 85 mL/min/1.73 sq.m. Ages 70+ = 75 mL/min/1.73 sq.m. Chronic Kidney Disease: Less than 60 mL/min/1.73 square meters End Stage Renal Disease: Less than 15 mL/min/1.73 square meters Glucose [Mass/Vol] 276 mg/dL High 80 - 115 mg/dL AO ADM SS Hematocrit (Bld) [Volume fraction] 34.6 % Low 37.0 - 47.0 % AO Workflow SS Hemoglobin (Bld) [Mass/Vol] 11.9 G/dL Low 12.0 - 16.0 G/dL AO Workflow SS Lymphocyte, Absolute 2.2 103/mcL Normal 0.8 - 3 .9 10^3/mcL AO Workflow SS Lymphocytes/100 WBC (Bld) 35.6 % Normal 10.0 - 50.0 % AO Workflow SS MCH (RBC) [Entitic mass] 29.0 pg Normal 27.0 - 31.2 pg AO Workflow SS MCHC 34.4 G/dL Normal 33.0 - 37.0 G/dL AO Workflow SS MCV (RBC) [Entitic vol] 84.3 fL Normal 80.0 - 94.0 fL AO Workflow SS Monocyte distribution width Auto (Bld) [Entitic vol] 19.20 1 Normal 0.00 - 20.00 AO Workflow SS Comment on above: Result Comment: For ED adult patients suspected of sepsis, MDW<=20.0 does not rule out sepsis or risk of sepsis Monocyte, Absolute 0.4 103/mcL Normal 0.2 - 1.0 10^3/mcL AO Workflow SS Monocytes/100 WBC (Bld) 7.1 % Normal 1.7 - 13.0 % AO Workflow SS Natriuretic peptide.B prohormone N-Terminal [Mass/Vol] 183 pg/mL High 0 - 125 pg/mL AO ADM SS Comment on above: Interpretive Data: N T-proBNP results of less than 300 pg/mL effectively rules out acute congestive heart failure with 99% negative predictive value. Neutrophil, Absolute 3.3 103/mcL Normal 2.9 - 6 .2 10^3/mcL AO Workflow SS Neutrophils/100 WBC (Bld) 53.5 % Normal 37.0 - 80.0 % AO Workflow SS Platelet mean volume (Bld) [Entitic vol] 7.6 fL Normal 7.4 - 10.4 fL AO Workflow SS Platelets (Bld) [#/Vol] 162 103/mcL Normal 130 - 400 10^3/mcL AO Workflow SS Potassium [Moles/Vol] 4.8 mmol/L Normal 3.5 - 5.1 mmol/L AO ADM SS RBC (Bld) [#/Vol] 4.11 106/mcL Low 4.20 - 5.4 0 10^6/mcL AO Workflow SS Sodium [Moles/Vol] 137 mmol/L Normal 136 - 145 mmol/L AO ADM SS Troponin I.cardiac DL <= 0.01 ng/mL [Mass/Vol] 7.0 ng/L Normal 0.0 - 51.4 ng/L AO ADM SS Urea nitrogen [Mass/Vol] 29 mg/dL High 7 - 18 mg/dL AO ADM SS Urea nitrogen/Creatinine [Mass ratio] 22 ratio Normal 7 - 27 ratio AO ADM SS WBC (Bld) [#/Vol] 6.1 103/mcL Normal 4.6 - 10.8 10^3/mcL AO Workflow SS PBNPon 06-23-2023 Natriuretic peptide B (Bld) [Mass/Vol] 183 pg/mL High 0-125 [facility] ([place]) Comment on above: Result Comment: NT-p roBNP results of less than 300 pg/mL effectively rules out acute congestive heart failure with 99% negative predictive value. Performed By: #### T BELTRAN KILGORE, ANEU, BMP, GFR, PBNP, ADIFF, CBC ####[address] [place], [place] [address] TROPHSon 06-23-2023 Troponin I High Sensitivity 7.0 ng/L Normal 0.0-51.4 [facility] ([place]) Comment on above: Performed By: #### T BELTRAN KILGORE, ANEU, BMP, GFR, PBNP, ADIFF, CBC #### [address] [place], [place] [address] XR CHEST 1 VIEWon 06-23-2023 XR CHEST 1 VIEW ORIGINAL EXAMINATION: ONE XRAY VIEW OF THE CHEST 06/23/2023 5:02 pm COMPARISON: Chest x-ray 11/01/2022, PET CT 05/18/2023 HISTORY: ORDERING SYSTEM PROVIDED HISTORY: Reason for Exam: dyspnea FINDINGS: The cardiomediastinal silhouette is stable. Chronic unchanged blunted left costophrenic angle and left basilar opacity most likely corresponds to areas of scarring described on the comparison PET-CT. The right lung is clear. No vascular congestion or pneumothorax. No acute osseous abnormality. IMPRESSION: Chronic unchanged blunting of the left costophrenic angle and left basilar opacity. No edema or new consolidation. Preliminary Report was Dictated by a Resident Interpreted by: Dora Romero Preliminary Report By: Corine Haque Electronically signed By Dora Romero Dictated Date: 06/23/2023 5:09:25 PM Prelim Date: 06/23/2023 5:14:23 PM Sign Date: 06/23/2023 7:23:32 PM Ordering Provider: LAURA Moss [facility] ([place]) PET/CT CU64 DETECTNET SB-MTo n 05-18-2023 PET/CT CU64 DETECTNET SB-MT ORIGINAL EXAMINATION: PET/CT CU64 DETECTNET SB-MT1 10:55 am TECHNIQUE: Intravenous injection of 4.4 mCi IV Copper-64 Dotatate was performed, followed by acquisition of positron emission tomographic images from the skull base to mid thigh, with concurrent low-dose CT for attenuation correction and anatomic localization utilizing a combined PET/CT scanner. PET images were fused with low-dose CT at the workstation. 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 No somatostatin-expressin g cervical lymph nodes. Similar appearing enlarged right lobe of the thyroid extends into the upper mediastinum. CHEST: No somatostatin-expressin g parenchymal pulmonary nodule. Several right-sided pulmonary nodules up to 5 mm (image 168, 169, 187, 207; series 3). There is also an 8 mm right lower lobe pulmonary nodule (image 198, series 3). Surgical changes of the left lung, with a least partial left upper lobectomy. Several left lower lobe pulmonary nodules up to 5 mm (image 187, 198, and 199; series 3). These nodules demonstrate no to minimal uptake. Scattered areas of scarring most on the left associated with some volume loss and surgical changes. Trace left pleural effusion. No somatostatin-expressin g mediastinal, hilar, or axillary lymphadenopathy. ABDOMEN/PELVIS: No somatostatin-expressin g solid organ lesion. No somatostatin-expressin g abdominal or pelvic lymphadenopathy Physiologic excretion of radiotracer is present within the kidneys, ureters, urinary bladder, as well as the liver, spleen, and bowel. Small hiatal hernia. Atrophic or surgically absent/partially surgically absent uterus. MUSCULOSKELETAL: No somatostatin-expressin g or suspicious osseous lesion to suggest osseous metastatic disease. IMPRESSION: No evidence of somatostatin expressing active disease. Bilateral pulmonary nodules as above. Suggest correlation with any prior outside hospital imaging for stability. I have personally reviewed the images of this examination and agree with the resident's findings and interpretation. Interpreted by: Andreas Lee DO Preliminary Report By: Daniel Charles Electronically signed By Andreas Lee DO Dictated Date: 05/18/2023 1:40:19 PM Prelim Date: 05/18/2023 3:32:17 PM Sign Date: 05/18/2023 3:32:17 PM Ordering Provider: KENTRELL DEAN [facility] ([place]) CHROMAon 02-08-2023 Chromogranin A 868 ng/mL High <98 [facility] ([place]) Comment on above: Result Comment: This test is performed using the [employer] [id number]. Results obtained with different methods or kits cannot be used interchangeably. This test was developed and its performance characteristics determined by [facility]'s [facility] [place] ([facility]). It has not been cleared or approved by the FDA. [facility] is regultaed under CLIA as qualified to perform high-complexity testing. This test is used for clinical purposes. It should not be regarded as investigational or for research. Performed By: [facility] [address] [place] [address] Process Control Board Operator: Bandar Haq III, M.D. CLIA#: [id number] Performed By: #### T BELTRAN KILGORE, ANEU, BMP, GFR, PBNP, ADIFF, CBC #### [address] [place], [place] [address] [facility] 02-04-2023 TTG Ab (IgA) <4.0 Normal <=3.9 [facility] ([place]) Comment on above: Result Comment: Effe ctive 11/08/2022: Evaluation of Transglutaminase Ab (IgA) results: Negative: Less than 4.0 Weak positive: 4.0 to 10.0 Positive: Greater than 10.0 Transglutaminase Ab is present in approximately 95% to 100% of patients with celiac disease and 80% of patients with dermatitis herpetiformis. The antibody is rarely found in other conditions. Transglutaminase Ab levels will decrease or increase depending on the removal or reintroduction of gluten into the diet. Patients who are IgA deficient develop celiac disease more frequently than individuals who have an intact IgA system. Therefore, gliadin and transglutaminase IgA antibodies may be absent in patients with celiac disease. IgG antibodies to gliadin are especially helpful in IgA deficient patients. These test results were obtained with the [employer] QUANTA Lite R-tTG IgA DUGLAS. R-tTG IgA values obtained with different manufacturers' assay methods may not be used interchangeably. Performed By: #### T BELTRAN KILGORE, ANEU, BMP, GFR, PBNP, ADIFF, CBC #### [address] [place], [place] [address] GLIADon 02-04-2023 Gliadin Ab IgA 37 High <=19 [facility] ([place]) Comment on above: Result Comment: Glia din IgG and IgA Ab Interpretation (effective 03/13/07): Result Units Negative <20 Weak Positive 20-30 Moderate to Strong Positive >30 Both IgG and IgA antibodies to gliadin are present in most patients with celiac disease (CD). However, antibody to gliadin may be present in Crohn's disease, dermatitis herpetiformis or in subjects with no clinical evidence of intestinal disease. In healthy individuals with a family history of CD, the antibodies may precede the clinical onset of disease in approximately 25% of the subjects. Gliadin antibody levels will decrease or increase depending on the removal or reintroduction of gluten into the diet. Patients who are IgA deficient develop celiac disease more frequently than individuals who have an intact IgA system. Therefore, gliadin and transglutaminase IgA antibodies may be absent in patients with celiac disease. IgG antibodies to gliadin are especially helpful in IgA deficient patients. A negative result indicates no gliadin antibody or levels below the negative cut-off of the assay. Results of this assay should be used in conjunction with clinical findings and other serological tests. These test results were obtained with the [employer] Gliadin IgG II and Gliadin IgA II. Gliadin values obtained with different manufacturers' assay methods may not be used interchangeably. Performed By: #### T JAME, BELTRAN, ANEU, BMP, GFR, PBNP, ADIFF, CBC #### [id number] [place], [place] [address] Gliadin Ab IgG <20 Normal <=19 [facility] ([place] Comment on above: Result Comment: Glia din IgG and IgA Ab Interpretation (effective 03/13/07): Result Units Negative <20 Weak Positive 20-30 Moderate to Strong Positive >30 Both IgG and IgA antibodies to gliadin are present in most patients with celiac disease (CD). However, antibody to gliadin may be present in Crohn's disease, dermatitis herpetiformis or in subjects with no clinical evidence of intestinal disease. In healthy individuals with a family history of CD, the antibodies may precede the clinical onset of disease in approximately 25% of the subjects. Gliadin antibody levels will decrease or increase depending on the removal or reintroduction of gluten into the diet. Patients who are IgA deficient develop celiac disease more frequently than individuals who have an intact IgA system. Therefore, gliadin and transglutaminase IgA antibodies may be absent in patients with celiac disease. IgG antibodies to gliadin are especially helpful in IgA deficient patients. A negative result indicates no gliadin antibody or levels below the negative cut-off of the assay. Results of this assay should be used in conjunction with clinical findings and other serological tests. These test results were obtained with the Break30 QUANTA Lite Gliadin IgG II and Gliadin IgA II. Gliadin values obtained with different manufacturers' assay methods may not be used interchangeably. Performed By: #### T JAME, BELTRAN, ANEU, BMP, GFR, PBNP, ADIFF, CBC #### Alla [address] [address] .GFRon 02-03-2023 GFR 52 ml/min/1.73sqm Normal [facility] ([place]) Comment on above: Result Comment: GFR Population mean for , Non- Americans Ages 20-29 = 116 mL/min/1.73 sq.m. Ages 30-39 = 107 mL/min/1.73 sq.m. Ages 40-49 = 99 mL/min/1.73 sq.m. Ages 50-59 = 93 mL/min/1.73 sq.m. Ages 60-69 = 85 mL/min/1.73 sq.m. Ages 70+ = 75 mL/min/1.73 sq.m. Chronic Kidney Disease: Less than 60 mL/min/1.73 square meters End Stage Renal Disease: Less than 15 mL/min/1.73 square meters Performed By: #### G FR, CMP, FERR, TSH, FE, LIPID, IBC, CHROMA, VIDH ####Alla [address] [address]#### CPEP, IGA, FOL, B12, ENDO, GLIAD ####[address] [address] GFR Non- 43 ml/min/1.73sqm Normal [facility] ([place]) Comment on above: Result Comment: GFR Population mean for , Non- Americans Ages 20-29 = 116 mL/min/1.73 sq.m. Ages 30-39 = 107 mL/min/1.73 sq.m. Ages 40-49 = 99 mL/min/1.73 sq.m. Ages 50-59 = 93 mL/min/1.73 sq.m. Ages 60-69 = 85 mL/min/1.73 sq.m. Ages 70+ = 75 mL/min/1.73 sq.m. Chronic Kidney Disease: Less than 60 mL/min/1.73 square meters End Stage Renal Disease: Less than 15 mL/min/1.73 square meters Performed By: #### G FR, CMP, FERR, TSH, FE, LIPID, IBC, CHROMA, VIDH ####[place] [address]#### CPEP, IGA, FOL, B12, ENDO, GLIAD ####[address] [address] B12on 02-03-2023 Cobalamin (Vitamin B12) [Mass/Vol] 461 pg/mL Normal 211-911 [facility] ([place]) Comment on above: Performed By: #### T JAME, BELTRAN, ANEU, BMP, GFR, PBNP, ADIFF, CBC #### Alla Claros [address] [place] [id number] CMPon 02-03-2023 Albumin Level 3.2 G/dL Low 3.4-4.8 [facility] ([place]) Comment on above: Performed By: #### G FR, CMP, FERR, TSH, FE, LIPID, IBC, CHROMA, VIDH ####Alla [place] [address]#### CPEP, IGA, FOL, B12, ENDO, GLIAD ####[address] [address] Albumin/Globulin [Mass ratio] 0.7 {ratio} Low 1.1-2.5 [facility] ([place] Comment on above: Performed By: #### G FR, CMP, FERR, TSH, FE, LIPID, IBC, CHROMA, VIDH ####[place] [address]#### CPEP, IGA, FOL, B12, ENDO, GLIAD ####[place] [address] ALP [Catalytic activity/Vol] 105 U/L Normal 40-135 [facility] ([place]) Comment on above: Performed By: #### G FR, CMP, FERR, TSH, FE, LIPID, IBC, CHROMA, VIDH ####[place] [address]#### CPEP, IGA, FOL, B12, ENDO, GLIAD ####[place] [address] ALT [Catalytic activity/Vol] 46 U/L Normal 14-59 [facility] ([place]) Comment on above: Performed By: #### G FR, CMP, FERR, TSH, FE, LIPID, IBC, CHROMA, VIDH ####[place] [address]#### CPEP, IGA, FOL, B12, ENDO, GLIAD ####[place] [address] AST [Catalytic activity/Vol] 47 U/L High 10-40 [facility] ([place] Comment on above: Performed By: #### G FR, CMP, FERR, TSH, FE, LIPID, IBC, CHROMA, VIDH ####[place] [address]#### CPEP, IGA, FOL, B12, ENDO, GLIAD ####[place] [address] Bili Total 0.4 mg/dL Normal 0.2-1.0 [facility] ([place]) Comment on above: Result Comment: Use of this assay is not recommended for patients undergoing treatment with eltrombopag due to the potential for falsely elevated results. Performed By: #### G FR, CMP, FERR, TSH, FE, LIPID, IBC, CHROMA, VIDH ####[place] [address]#### CPEP, IGA, FOL, B12, ENDO, GLIAD ####[address] [address] BUN/Creatinine Ratio 22 ratio Normal 7-27 [facility] ([place] Comment on above: Performed By: #### G FR, CMP, FERR, TSH, FE, LIPID, IBC, CHROMA, VIDH ####[place] [address]#### CPEP, IGA, FOL, B12, ENDO, GLIAD ####[place] [address] Calcium [Mass/Vol] 9.6 mg/dL Normal 8.4-10.2 [facility] ([place]) Comment on above: Performed By: #### G FR, CMP, FERR, TSH, FE, LIPID, IBC, CHROMA, VIDH ####[place] [address]#### CPEP, IGA, FOL, B12, ENDO, GLIAD ####[place] [address] Chloride [Moles/Vol] 100 mmol/L Normal 98-107 [facility] ([place] Comment on above: Performed By: #### G FR, CMP, FERR, TSH, FE, LIPID, IBC, CHROMA, VIDH ####[place] [address]#### CPEP, IGA, FOL, B12, ENDO, GLIAD ####[place] [address] CO2 [Moles/Vol] 28 mmol/L Normal 23-31 [facility] ([place] Comment on above: Performed By: #### G FR, CMP, FERR, TSH, FE, LIPID, IBC, CHROMA, VIDH ####[place] [address]#### CPEP, IGA, FOL, B12, ENDO, GLIAD ####[place] [address] Creatinine [Mass/Vol] 1.25 mg/dL High 0.55-1.02 [facility] ([place] Comment on above: Performed By: #### G FR, CMP, FERR, TSH, FE, LIPID, IBC, CHROMA, VIDH ####[place] [address]#### CPEP, IGA, FOL, B12, ENDO, GLIAD ####[place] [address] Electrolyte Balance 8.0 mEq/L Normal 4.0-15.0 [facility] ([place] Comment on above: Performed By: #### G FR, CMP, FERR, TSH, FE, LIPID, IBC, CHROMA, VIDH ####[place] [address]#### CPEP, IGA, FOL, B12, ENDO, GLIAD ####[place] [address] Globulin 4.5 G/dL Normal [facility] ([place] Comment on above: Performed By: #### G FR, CMP, FERR, TSH, FE, LIPID, IBC, CHROMA, VIDH ####[place] [address]#### CPEP, IGA, FOL, B12, ENDO, GLIAD ####[place] [address] Glucose [Mass/Vol] 213 mg/dL High 80-115 [facility] ([place]) Comment on above: Performed By: #### G FR, CMP, FERR, TSH, FE, LIPID, IBC, CHROMA, VIDH ####[place] [address]#### CPEP, IGA, FOL, B12, ENDO, GLIAD ####[place] [address] Potassium [Moles/Vol] 4.9 mmol/L Normal 3.5-5.1 [facility] ([place] Comment on above: Performed By: #### G FR, CMP, FERR, TSH, FE, LIPID, IBC, CHROMA, VIDH ####[place] [address]#### CPEP, IGA, FOL, B12, ENDO, GLIAD ####[address] [address] Sodium [Moles/Vol] 136 mmol/L Normal 136-145 [facility] ([place]) Comment on above: Performed By: #### G FR, CMP, FERR, TSH, FE, LIPID, IBC, CHROMA, VIDH ####[place] [address]#### CPEP, IGA, FOL, B12, ENDO, GLIAD ####[address] [address] Total Protein 7.7 G/dL Normal 6.4-8.2 [facility] ([place]) Comment on above: Performed By: #### G FR, CMP, FERR, TSH, FE, LIPID, IBC, CHROMA, VIDH ####[place] [address]#### CPEP, IGA, FOL, B12, ENDO, GLIAD ####[address] [address] Urea nitrogen [Mass/Vol] 28 mg/dL High 7-18 [facility] ([place] Comment on above: Performed By: #### G FR, CMP, FERR, TSH, FE, LIPID, IBC, CHROMA, VIDH ####[place] [address]#### CPEP, IGA, FOL, B12, ENDO, GLIAD ####[address] [address] CPEPon 02-03-2023 C-Peptide 11.09 ng/mL High 0.81-3.85 [facility] ([place]) Comment on above: Performed By: #### T BELTRAN KILGORE, ANEU, BMP, GFR, PBNP, ADIFF, CBC #### [address] [address] FEon 02-03-2023 Iron [Mass/Vol] 52 ug/dL Normal 50-170 [facility] ([place] Comment on above: Performed By: #### G FR, CMP, FERR, TSH, FE, LIPID, IBC, CHROMA, VIDH ####[address] [address]#### CPEP, IGA, FOL, B12, ENDO, GLIAD ####[address] [address] Asad 02-03-2023 Ferritin [Mass/Vol] 23.0 ng/mL Normal 8.0-252.0 [facility] ([place] Comment on above: Performed By: #### G FR, CMP, FERR, TSH, FE, LIPID, IBC, CHROMA, VIDH ####[place] [id number]#### CPEP, IGA, FOL, B12, ENDO, GLIAD ####[place] [address] FOLon 02-03-2023 Folate 29.23 ng/mL High 5.38-24.00 [facility] ([place] Comment on above: Performed By: #### BELTRAN LEUNG, ANEU, BMP, GFR, PBNP, ADIFF, CBC #### [place] [address] [place], [place] [address] IBCon 02-03-2023 TIBC 414 mcg/dL Normal 250-450 [facility] ([place] Comment on above: Performed By: #### G FR, CMP, FERR, TSH, FE, LIPID, IBC, CHROMA, VIDH ####[place] [id number]#### CPEP, IGA, FOL, B12, ENDO, GLIAD ####[place] [address] IGAon 02-03-2023 IgA [Mass/Vol] 584 mg/dL High 40-350 [facility] ([place]) Comment on above: Result Comment: No te - New Reference Range in effect 19 Performed By: #### T ROPHS, MDW, ANEU, BMP, GFR, PBNP, ADIFF, CBC #### [place] [id number] [place], [place] [address] LIPIDon 02-03-2023 Cholesterol [Mass/Vol] 159 mg/dL Normal 0-200 [facility] ([place] Comment on above: Result Comment: Chol esterol Reference Interval: Less than 200 Desirable 200-239 Borderline high risk 240 and above High risk Performed By: #### G FR, CMP, FERR, TSH, FE, LIPID, IBC, CHROMA, VIDH ####[place] [address]#### CPEP, IGA, FOL, B12, ENDO, GLIAD ####[address] [address] Cholesterol in HDL [Mass/Vol] 39 mg/dL Low 40-60 [facility] ([place] Comment on above: Performed By: #### G FR, CMP, FERR, TSH, FE, LIPID, IBC, CHROMA, VIDH ####[place] [address]#### CPEP, IGA, FOL, B12, ENDO, GLIAD ####[address] [address] Cholesterol in LDL [Mass/Vol] 43 mg/dL Normal 0-130 [facility] ([place] Comment on above: Performed By: #### G FR, CMP, FERR, TSH, FE, LIPID, IBC, CHROMA, VIDH ####[place] [address]#### CPEP, IGA, FOL, B12, ENDO, GLIAD ####[address] [address] Triglyceride [Mass/Vol] 385 mg/dL High 0-150 [facility] ([place] Comment on above: Result Comment: Trig lyceride Reference Interval: Less than 150 Normal 150-199 Borderline high risk 200-499 High risk 500 or higher Very high risk Performed By: #### G FR, CMP, FERR, TSH, FE, LIPID, IBC, CHROMA, VIDH ####[place] [id number]#### CPEP, IGA, FOL, B12, ENDO, GLIAD ####[place] [address] TSHon 02-03-2023 TSH Qn 1.05 m[IU]/L Normal 0.36-3.74 [facility] ([place]) Comment on above: Performed By: #### G FR, CMP, FERR, TSH, FE, LIPID, IBC, CHROMA, VIDH ####[place] [id number] [place] [address]#### CPEP, IGA, FOL, B12, ENDO, GLIAD ####[place] [address] VIDHon 02-03-2023 Vit. D 25-Hydroxy 21.8 ng/mL Normal [facility] ([place] Comment on above: Result Comment: Inte rpretive Values Based on Total 25(OH) Vitamin D: Deficient <20 ng/mL Insufficient 20 - <30 ng/mL Sufficient 30-100 ng/mL Performed By: #### G FR, CMP, FERR, TSH, FE, LIPID, IBC, CHROMA, VIDH ####[place] [address]#### CPEP, IGA, FOL, B12, ENDO, GLIAD ####[place] [address] LABORATORYOrdered By: Deion Cleveland on 11-04-2022 Blood Glucose Testing Reason Routine (11/04/22 5:10 PM) [facility] Glucose [Mass/Vol] 170 mg/dL Invalid Interpretation Code 82 - 115 mg/dL [facility] Blood Glucose Testing Reason Routine (11/04/22 12:24 PM) [facility] Glucose [Mass/Vol] 258 mg/dL Invalid Interpretation Code 82 - 115 mg/dL [facility] LABORATORYOrdered By: Charmaine clancy on 11-04-2022 Blood Glucose Testing Reason Routine (11/04/22 4:39 PM) [facility] Glucose [Mass/Vol] 246 mg/dL Invalid Interpretation Code 82 - 115 mg/dL [facility] LABORATORYOrdered By: SYSTEM SYSTEM on 11-03-2022 Basophil, Absolute 0.0 103/mcL Invalid Interpretation Code 0.0 - 0.2 10^3/mcL AO Workflow SS Basophils/100 WBC (Bld) 0.4 % Invalid Interpretation Code 0.0 - 2.5 % AO Workflow SS Calcium [Mass/Vol] 9.5 mg/dL Invalid Interpretation Code 8.4 - 10.2 mg/dL AO ADM SS Chloride [Moles/Vol] 101 mmol/L Invalid Interpretation Code 98 - 107 mmol/L AO ADM SS CO2 [Moles/Vol] 23 mmol/L Invalid Interpretation Code 23 - 31 mmol/L AO ADM SS Creatinine [Mass/Vol] 1.16 mg/dL Invalid Interpretation Code 0.55 - 1.02 mg/dL AO ADM SS Electrolyte Balance 11.0 mEq/L Invalid Interpretation Code 4.0 - 15.0 mEq/L AO ADM SS Eosinophil, Absolute 0.2 103/mcL Invalid Interpretation Code 0.0 - 0.4 10^3/mcL AO Workflow SS Eosinophils/100 WBC (Bld) 3.7 % Invalid Interpretation Code 0.0 - 7.0 % AO Workflow SS Erythrocyte distribution width (RBC) [Ratio] 15.9 % Invalid Interpretation Code 11.5 - 14.5 % AO Workflow SS GFR/1.73 sq M.predicted among blacks MDRD (S/P/Bld) [Vol rate/Area] 57 ml/min/1.73sqm Invalid Interpretation Code AO Chemistry S Comment on above: Interpretive Data: GFR Population mean for , Non- Americans Ages 20-29 = 116 mL/min/1.73 sq.m. Ages 30-39 = 107 mL/min/1.73 sq.m. Ages 40-49 = 99 mL/min/1.73 sq.m. Ages 50-59 = 93 mL/min/1.73 sq.m. Ages 60-69 = 85 mL/min/1.73 sq.m. Ages 70+ = 75 mL/min/1.73 sq.m. Chronic Kidney Disease: Less than 60 mL/min/1.73 square meters End Stage Renal Disease: Less than 15 mL/min/1.73 square meters GFR/1.73 sq M.predicted among non-blacks MDRD (S/P/Bld) [Vol rate/Area] 47 ml/min/1.73sqm Invalid Interpretation Code AO Chemistry S Comment on above: Interpretive Data: GFR Population mean for , Non- Americans Ages 20-29 = 116 mL/min/1.73 sq.m. Ages 30-39 = 107 mL/min/1.73 sq.m. Ages 40-49 = 99 mL/min/1.73 sq.m. Ages 50-59 = 93 mL/min/1.73 sq.m. Ages 60-69 = 85 mL/min/1.73 sq.m. Ages 70+ = 75 mL/min/1.73 sq.m. Chronic Kidney Disease: Less than 60 mL/min/1.73 square meters End Stage Renal Disease: Less than 15 mL/min/1.73 square meters Glucose [Mass/Vol] 237 mg/dL Invalid Interpretation Code 80 - 115 mg/dL AO ADM SS Hematocrit (Bld) [Volume fraction] 32.9 % Invalid Interpretation Code 37.0 - 47.0 % AO Workflow SS Hemoglobin (Bld) [Mass/Vol] 11.1 G/dL Invalid Interpretation Code 12.0 - 16.0 G/dL AO Workflow SS Lymphocyte, Absolute 1.5 103/mcL Invalid Interpretation Code 0.8 - 3.9 10^3/mcL AO Workflow SS Lymphocytes/100 WBC (Bld) 27.7 % Invalid Interpretation Code 10.0 - 50.0 % AO Workflow SS Magnesium [Mass/Vol] 1.7 mg/dL Invalid Interpretation Code 1.8 - 2.4 mg/dL AO ADM SS MCH (RBC) [Entitic mass] 26.7 pg Invalid Interpretation Code 27.0 - 31.2 pg AO Workflow SS MCHC 33.7 G/dL Invalid Interpretation Code 33.0 - 37.0 G/dL AO Workflow SS MCV (RBC) [Entitic vol] 79.3 fL Invalid Interpretation Code 80.0 - 94.0 fL AO Workflow SS Monocyte, Absolute 0.6 103/mcL Invalid Interpretation Code 0.2 - 1.0 10^3/mcL AO Workflow SS Monocytes/100 WBC (Bld) 10.4 % Invalid Interpretation Code 1.7 - 13.0 % AO Workflow SS Neutrophil, Absolute 3.2 103/mcL Invalid Interpretation Code 2.9 - 6.2 10^3/mcL AO Workflow SS Neutrophils/100 WBC (Bld) 57.8 % Invalid Interpretation Code 37.0 - 80.0 % AO Workflow SS Platelet mean volume (Bld) [Entitic vol] 8.8 fL Invalid Interpretation Code 7.4 - 10.4 fL AO Workflow SS Platelets (Bld) [#/Vol] 134 103/mcL Invalid Interpretation Code 130 - 400 10^3/mcL AO Workflow SS Potassium [Moles/Vol] 4.5 mmol/L Invalid Interpretation Code 3.5 - 5.1 mmol/L AO ADM SS RBC (Bld) [#/Vol] 4.15 106/mcL Invalid Interpretation Code 4.20 - 5.40 10^6/mcL AO Workflow SS Sodium [Moles/Vol] 135 mmol/L Invalid Interpretation Code 136 - 145 mmol/L AO ADM SS Urea nitrogen [Mass/Vol] 41 mg/dL Invalid Interpretation Code 7 - 18 mg/dL AO ADM SS Urea nitrogen/Creatinine [Mass ratio] 35 ratio Invalid Interpretation Code 7 - 27 ratio AO ADM SS WBC (Bld) [#/Vol] 5.6 103/mcL Invalid Interpretation Code 4.6 - 10.8 10^3/mcL AO Workflow SS LABORATORYOrdered By: Tari Escobedo on 11-03-2022 HbA1c (Bld) [Mass fraction] % 1 Invalid Interpretation Code 4.3 - 6.4 % AO Chemistry S LABORATORYOrdered By: SYSTEM SYSTEM on 11-02-2022 Basophil, Absolute 0.0 103/mcL Invalid Interpretation Code 0.0 - 0.2 10^3/mcL AO Workflow SS Basophils/100 WBC (Bld) 0.5 % Invalid Interpretation Code 0.0 - 2.5 % AO Workflow SS Calcium [Mass/Vol] 10.0 mg/dL Invalid Interpretation Code 8.4 - 10.2 mg/dL AO ADM SS Chloride [Moles/Vol] 95 mmol/L Invalid Interpretation Code 98 - 107 mmol/L AO ADM SS CO2 [Moles/Vol] 24 mmol/L Invalid Interpretation Code 23 - 31 mmol/L AO ADM SS Creatinine [Mass/Vol] 1.64 mg/dL Invalid Interpretation Code 0.55 - 1.02 mg/dL AO ADM SS Electrolyte Balance 11.0 mEq/L Invalid Interpretation Code 4.0 - 15.0 mEq/L AO ADM SS Eosinophil, Absolute 0.2 103/mcL Invalid Interpretation Code 0.0 - 0.4 10^3/mcL AO Workflow SS Eosinophils/100 WBC (Bld) 3.0 % Invalid Interpretation Code 0.0 - 7.0 % AO Workflow SS Erythrocyte distribution width (RBC) [Ratio] 15.3 % Invalid Interpretation Code 11.5 - 14.5 % AO Workflow SS GFR/1.73 sq M.predicted among blacks MDRD (S/P/Bld) [Vol rate/Area] 38 ml/min/1.73sqm Invalid Interpretation Code AO Chemistry S Comment on above: Interpretive Data: GFR Population mean for , Non- Americans Ages 20-29 = 116 mL/min/1.73 sq.m. Ages 30-39 = 107 mL/min/1.73 sq.m. Ages 40-49 = 99 mL/min/1.73 sq.m. Ages 50-59 = 93 mL/min/1.73 sq.m. Ages 60-69 = 85 mL/min/1.73 sq.m. Ages 70+ = 75 mL/min/1.73 sq.m. Chronic Kidney Disease: Less than 60 mL/min/1.73 square meters End Stage Renal Disease: Less than 15 mL/min/1.73 square meters GFR/1.73 sq M.predicted among non-blacks MDRD (S/P/Bld) [Vol rate/Area] 31 ml/min/1.73sqm Invalid Interpretation Code AO Chemistry S Comment on above: Interpretive Data: GFR Population mean for , Non- Americans Ages 20-29 = 116 mL/min/1.73 sq.m. Ages 30-39 = 107 mL/min/1.73 sq.m. Ages 40-49 = 99 mL/min/1.73 sq.m. Ages 50-59 = 93 mL/min/1.73 sq.m. Ages 60-69 = 85 mL/min/1.73 sq.m. Ages 70+ = 75 mL/min/1.73 sq.m. Chronic Kidney Disease: Less than 60 mL/min/1.73 square meters End Stage Renal Disease: Less than 15 mL/min/1.73 square meters Glucose [Mass/Vol] 277 mg/dL Invalid Interpretation Code 80 - 115 mg/dL AO ADM SS Hematocrit (Bld) [Volume fraction] 34.5 % Invalid Interpretation Code 37.0 - 47.0 % AO Workflow SS Hemoglobin (Bld) [Mass/Vol] 11.6 G/dL Invalid Interpretation Code 12.0 - 16.0 G/dL AO Workflow SS Lymphocyte, Absolute 2.9 103/mcL Invalid Interpretation Code 0.8 - 3.9 10^3/mcL AO Workflow SS Lymphocytes/100 WBC (Bld) 38.1 % Invalid Interpretation Code 10.0 - 50.0 % AO Workflow SS Magnesium [Mass/Vol] 1.8 mg/dL Invalid Interpretation Code 1.8 - 2.4 mg/dL AO ADM SS MCH (RBC) [Entitic mass] 26.5 pg Invalid Interpretation Code 27.0 - 31.2 pg AO Workflow SS MCHC 33.6 G/dL Invalid Interpretation Code 33.0 - 37.0 G/dL AO Workflow SS MCV (RBC) [Entitic vol] 78.7 fL Invalid Interpretation Code 80.0 - 94.0 fL AO Workflow SS Monocyte, Absolute 0.8 103/mcL Invalid Interpretation Code 0.2 - 1.0 10^3/mcL AO Workflow SS Monocytes/100 WBC (Bld) 11.1 % Invalid Interpretation Code 1.7 - 13.0 % AO Workflow SS Neutrophil, Absolute 3.6 103/mcL Invalid Interpretation Code 2.9 - 6.2 10^3/mcL AO Workflow SS Neutrophils/100 WBC (Bld) 47.3 % Invalid Interpretation Code 37.0 - 80.0 % AO Workflow SS Platelet mean volume (Bld) [Entitic vol] 8.6 fL Invalid Interpretation Code 7.4 - 10.4 fL AO Workflow SS Platelets (Bld) [#/Vol] 173 103/mcL Invalid Interpretation Code 130 - 400 10^3/mcL AO Workflow SS Potassium [Moles/Vol] 4.3 mmol/L Invalid Interpretation Code 3.5 - 5.1 mmol/L AO ADM SS RBC (Bld) [#/Vol] 4.38 106/mcL Invalid Interpretation Code 4.20 - 5.40 10^6/mcL AO Workflow SS Sodium [Moles/Vol] 130 mmol/L Invalid Interpretation Code 136 - 145 mmol/L AO ADM SS Urea nitrogen [Mass/Vol] 55 mg/dL Invalid Interpretation Code 7 - 18 mg/dL AO ADM SS Urea nitrogen/Creatinine [Mass ratio] 34 ratio Invalid Interpretation Code 7 - 27 ratio AO ADM SS WBC (Bld) [#/Vol] 7.5 103/mcL Invalid Interpretation Code 4.6 - 10.8 10^3/mcL AO Workflow SS LABORATORYOrdered By: Anastacio Kowalski on 11-02-2022 Blood Glucose Interventions Notify physician (11/02/22 2:09 AM) [facility] Blood Glucose Interventions Notify physician (11/02/22 1:15 AM) [facility] Blood Glucose Interventions Notify physician (11/02/22 12:31 AM) [facility] Blood Glucose, Capillary Out of Range Critical High (11/02/22 12:31 AM) [facility] LABORATORYOrdered By: Anastacio Kowalski on 11-01-2022 Blood Glucose, Capillary Out of Range Critical High (11/01/22 11:30 PM) [facility] Blood Glucose, Capillary Out of Range Critical High (11/01/22 10:18 PM) [facility] LABORATORYOrdered By: SYSTEM SYSTEM on 11-01-2022 Calcium [Mass/Vol] 10.2 mg/dL Invalid Interpretation Code 8.4 - 10.2 mg/dL AO ADM SS Chloride [Moles/Vol] 93 mmol/L Invalid Interpretation Code 98 - 107 mmol/L AO ADM SS CO2 [Moles/Vol] 26 mmol/L Invalid Interpretation Code 23 - 31 mmol/L AO ADM SS Creatinine [Mass/Vol] 1.63 mg/dL Invalid Interpretation Code 0.55 - 1.02 mg/dL AO ADM SS Electrolyte Balance 9.0 mEq/L Invalid Interpretation Code 4.0 - 15.0 mEq/L AO ADM SS GFR/1.73 sq M.predicted among blacks MDRD (S/P/Bld) [Vol rate/Area] 38 ml/min/1.73sqm Invalid Interpretation Code AO Chemistry S Comment on above: Interpretive Data: GFR Population mean for , Non- Americans Ages 20-29 = 116 mL/min/1.73 sq.m. Ages 30-39 = 107 mL/min/1.73 sq.m. Ages 40-49 = 99 mL/min/1.73 sq.m. Ages 50-59 = 93 mL/min/1.73 sq.m. Ages 60-69 = 85 mL/min/1.73 sq.m. Ages 70+ = 75 mL/min/1.73 sq.m. Chronic Kidney Disease: Less than 60 mL/min/1.73 square meters End Stage Renal Disease: Less than 15 mL/min/1.73 square meters GFR/1.73 sq M.predicted among non-blacks MDRD (S/P/Bld) [Vol rate/Area] 32 ml/min/1.73sqm Invalid Interpretation Code AO Chemistry S Comment on above: Interpretive Data: GFR Population mean for , Non- Americans Ages 20-29 = 116 mL/min/1.73 sq.m. Ages 30-39 = 107 mL/min/1.73 sq.m. Ages 40-49 = 99 mL/min/1.73 sq.m. Ages 50-59 = 93 mL/min/1.73 sq.m. Ages 60-69 = 85 mL/min/1.73 sq.m. Ages 70+ = 75 mL/min/1.73 sq.m. Chronic Kidney Disease: Less than 60 mL/min/1.73 square meters End Stage Renal Disease: Less than 15 mL/min/1.73 square meters Glucose [Mass/Vol] 512 mg/dL Invalid Interpretation Code 80 - 115 mg/dL AO ADM SS Magnesium [Mass/Vol] 1.9 mg/dL Invalid Interpretation Code 1.8 - 2.4 mg/dL AO ADM SS Potassium [Moles/Vol] 4.7 mmol/L Invalid Interpretation Code 3.5 - 5.1 mmol/L AO ADM SS Sodium [Moles/Vol] 128 mmol/L Invalid Interpretation Code 136 - 145 mmol/L AO ADM SS Urea nitrogen [Mass/Vol] 55 mg/dL Invalid Interpretation Code 7 - 18 mg/dL AO ADM SS Urea nitrogen/Creatinine [Mass ratio] 34 ratio Invalid Interpretation Code 7 - 27 ratio AO ADM SS Sodium (U) [Moles/Vol] 28 mmol/L Invalid Interpretation Code 20 - 110 mmol/L AO ADM SS Basophil, Absolute 0.1 103/mcL Invalid Interpretation Code 0.0 - 0.2 10^3/mcL AO Workflow SS Basophils/100 WBC (Bld) 1.0 % Invalid Interpretation Code 0.0 - 2.5 % AO Workflow SS Eosinophil, Absolute 0.2 103/mcL Invalid Interpretation Code 0.0 - 0.4 10^3/mcL AO Workflow SS Eosinophils/100 WBC (Bld) 2.3 % Invalid Interpretation Code 0.0 - 7.0 % AO Workflow SS Erythrocyte distribution width (RBC) [Ratio] 15.6 % Invalid Interpretation Code 11.5 - 14.5 % AO Workflow SS Hematocrit (Bld) [Volume fraction] 36.7 % Invalid Interpretation Code 37.0 - 47.0 % AO Workflow SS Hemoglobin (Bld) [Mass/Vol] 11.9 G/dL Invalid Interpretation Code 12.0 - 16.0 G/dL AO Workflow SS Lymphocyte, Absolute 2.2 103/mcL Invalid Interpretation Code 0.8 - 3.9 10^3/mcL AO Workflow SS Lymphocytes/100 WBC (Bld) 28.3 % Invalid Interpretation Code 10.0 - 50.0 % AO Workflow SS MCH (RBC) [Entitic mass] 26.3 pg Invalid Interpretation Code 27.0 - 31.2 pg AO Workflow SS MCHC 32.5 G/dL Invalid Interpretation Code 33.0 - 37.0 G/dL AO Workflow SS MCV (RBC) [Entitic vol] 81.1 fL Invalid Interpretation Code 80.0 - 94.0 fL AO Workflow SS Monocyte distribution width Auto (Bld) [Entitic vol] 20.45 1 Invalid Interpretation Code 0.00 - 20.00 AO Workflow SS Comment on above: Result Comment: For adults in ED, MDW>20.0 may be associated with a higher risk of sepsis during the first 12hrs of hospital admission Monocyte, Absolute 0.8 103/mcL Invalid Interpretation Code 0.2 - 1.0 10^3/mcL AO Workflow SS Monocytes/100 WBC (Bld) 10.6 % Invalid Interpretation Code 1.7 - 13.0 % AO Workflow SS Natriuretic peptide.B prohormone N-Terminal [Mass/Vol] 204 pg/mL Invalid Interpretation Code 0 - 125 pg/mL AO ADM SS Comment on above: Interpretive Data: N T-proBNP results of less than 300 pg/mL effectively rules out acute congestive heart failure with 99% negative predictive value. Neutrophil, Absolute 4.5 103/mcL Invalid Interpretation Code 2.9 - 6.2 10^3/mcL AO Workflow SS Neutrophils/100 WBC (Bld) 57.8 % Invalid Interpretation Code 37.0 - 80.0 % AO Workflow SS Platelet mean volume (Bld) [Entitic vol] 8.7 fL Invalid Interpretation Code 7.4 - 10.4 fL AO Workflow SS Platelets (Bld) [#/Vol] 199 103/mcL Invalid Interpretation Code 130 - 400 10^3/mcL AO Workflow SS RBC (Bld) [#/Vol] 4.53 106/mcL Invalid Interpretation Code 4.20 - 5.40 10^6/mcL AO Workflow SS Troponin I.cardiac DL <= 0.01 ng/mL [Mass/Vol] 8.1 ng/L Invalid Interpretation Code 0.0 - 51.4 ng/L AO ADM SS WBC (Bld) [#/Vol] 7.8 103/mcL Invalid Interpretation Code 4.6 - 10.8 10^3/mcL AO Workflow SS LABORATORYOrdered By: Caesar Maher on 11-01-2022 M. pneumoniae IgM IA Ql (S) Negative 4 (11/01/22 10:17 PM) Invalid Interpretation Code Man Viro/Sero SS Comment on above: Interpretive Data: I NTERPRETATION OF MYCOPLASMA IgM: Negative: IgM to M. pneumoniae Absent, or at levels below the assay limit of detection. Positive: IgM to M. pneumoniae Present. Invalid: Test results are invalid due to invalid internal control. Assay was performed in duplicate. Repeat testing is suggested if clinically indicated. LABORATORYOrdered By: Andrés Sanderson on 11-01-2022 Osmolality (U) [Osmolality] 399 mosm/kg Invalid Interpretation Code 390 - 1090 mOsm/kg Manual Chem SS LABORATORYOrdered By: Tobias Teresa on 11-01-2022 Osmolality [Osmolality] 318 mosm/kg Invalid Interpretation Code 275 - 300 mOsm/kg Manual Chem SS LABORATORYOrdered By: Shahid Simental on 11-01-2022 Fibrin D-dimer DDU (PPP) [Mass/Vol] 247 ng/mL D-DU Invalid Interpretation Code 0 - 230 ng/mL D-DU AO [facility] SS Comment on above: Interpretive Data: T he result of the D-Dimer test should be evaluated in the context of all the clinical and laboratory data available. In those instances where the laboratory result does not agree with the clinical evaluation, additional tests should be performed accordingly. If the D-Dimer result is used to exclude DVT or PE, the recommended cutoff value is less than 230 ng/mL. The D-Dimer result should not be used alone to rule in DVT/PE, but should be used in conjunction with a clinical pretest probability (PTP)assessment model to exclude venous thromboembolism (VTE) in outpatients suspected of deep venous thrombosis (DVT) and pulmonary embolism (PE). Ketones [Mass/Vol] Negative Invalid Interpretation Code Negativemg/d L AO Rapid Testing SS LABORATORYOrdered By: Nevin Vance on 11-01-2022 pH (BldV) 7.35 [pH] Invalid Interpretation Code 7.31 - 7.41 AO Blood Gas SS No Panel Informationon 11-01 Legionella Urine Ag Presumptive negative for L. pneumophila serogroup 1 antigen in urine, suggesting no recent or current infection. Legionnaire's disease cannot be ruled out since other serogroups and species may also cause disease. [facility] LABORATORYOrdered By: SYSTEM SYSTEM on 10-27-2022 Calcium [Mass/Vol] 9.3 mg/dL Invalid Interpretation Code 8.4 - 10.2 mg/dL AO ADM SS Chloride [Moles/Vol] 91 mmol/L Invalid Interpretation Code 98 - 107 mmol/L AO ADM SS CO2 [Moles/Vol] 25 mmol/L Invalid Interpretation Code 23 - 31 mmol/L AO ADM SS Creatinine [Mass/Vol] 2.08 mg/dL Invalid Interpretation Code 0.55 - 1.02 mg/dL AO ADM SS Electrolyte Balance 11.0 mEq/L Invalid Interpretation Code 4.0 - 15.0 mEq/L AO ADM SS GFR/1.73 sq M.predicted among blacks MDRD (S/P/Bld) [Vol rate/Area] 29 ml/min/1.73sqm Invalid Interpretation Code AO Chemistry S GFR/1.73 sq M.predicted among non-blacks MDRD (S/P/Bld) [Vol rate/Area] 24 ml/min/1.73sqm Invalid Interpretation Code AO Chemistry S Glucose [Mass/Vol] 539 mg/dL Invalid Interpretation Code 80 - 115 mg/dL AO ADM SS Potassium [Moles/Vol] 5.1 mmol/L Invalid Interpretation Code 3.5 - 5.1 mmol/L AO ADM SS Sodium [Moles/Vol] 127 mmol/L Invalid Interpretation Code 136 - 145 mmol/L AO ADM SS Urea nitrogen [Mass/Vol] 61 mg/dL Invalid Interpretation Code 7 - 18 mg/dL AO ADM SS Urea nitrogen/Creatinine [Mass ratio] 29 ratio Invalid Interpretation Code 7 - 27 ratio AO ADM SS LABORATORYOrdered By: Angel Cruz on 09-20-2022 Glucose [Mass/Vol] 228 mg/dL Invalid Interpretation Code 82 - 115 mg/dL [facility] Glucose [Mass/Vol] 219 mg/dL Invalid Interpretation Code 82 - 115 mg/dL [facility] LABORATORYOrdered By: Aubrey Mukherjee on 09-20-2022 Blood Glucose Testing Reason Routine (09/20/22 7:48 AM) [facility] Glucose [Mass/Vol] 242 mg/dL Invalid Interpretation Code 82 - 115 mg/dL [facility] LABORATORYOrdered By: SYSTEM SYSTEM on 09-20-2022 Basophils (Bld) [#/Vol] 0.0 103/mcL Invalid Interpretation Code 0.0 - 0.3 10^3/mcL AH Workflow SS Basophils/100 WBC (Bld) 0.2 % Invalid Interpretation Code 0.0 - 2.5 % Workflow SS Calcium [Mass/Vol] 9.1 mg/dL Invalid Interpretation Code 8.7 - 10.4 mg/dL AH ADM SS Chloride [Moles/Vol] 107 mmol/L Invalid Interpretation Code 98 - 110 mEq/L AH ADM SS CO2 [Moles/Vol] 26 mmol/L Invalid Interpretation Code 22 - 32 mEq/L AH ADM SS Creatinine [Mass/Vol] 0.99 mg/dL Invalid Interpretation Code 0.50 - 1.20 mg/dL ADM SS Electrolyte Balance 7.0 mEq/L Invalid Interpretation Code 4.0 - 15.0 mEq/L ADM SS Eosinophils (Bld) [#/Vol] 0.1 103/mcL Invalid Interpretation Code 0.0 - 0.7 10^3/mcL AH Workflow SS Eosinophils/100 WBC (Bld) 1.4 % Invalid Interpretation Code 0.0 - 6.0 % Workflow SS Erythrocyte distribution width (RBC) [Ratio] 15.8 % Invalid Interpretation Code 11.5 - 15.5 % Workflow SS GFR/1.73 sq M.predicted among blacks MDRD (S/P/Bld) [Vol rate/Area] ml/min/1.73sqm Invalid Interpretation Code Chemistry S GFR/1.73 sq M.predicted among non-blacks MDRD (S/P/Bld) [Vol rate/Area] 56 ml/min/1.73sqm Invalid Interpretation Code Chemistry S Glucose [Mass/Vol] 259 mg/dL Invalid Interpretation Code 82 - 115 mg/dL ADM SS HbA1c (Bld) [Mass fraction] 9.8 % Invalid Interpretation Code 4.0 - 6.0 % Auto Chem SS Hematocrit (Bld) [Volume fraction] 33.5 % Invalid Interpretation Code 34.0 - 46.0 % Workflow SS Hemoglobin (Bld) [Mass/Vol] 11.0 G/dL Invalid Interpretation Code 12.0 - 16.0 G/dL AH Workflow SS Lymphocytes (Bld) [#/Vol] 1.7 103/mcL Invalid Interpretation Code 0.9 - 4.3 10^3/mcL Workflow SS Lymphocytes/100 WBC (Bld) 22.3 % Invalid Interpretation Code 20.0 - 40.0 % Workflow SS MCH (RBC) [Entitic mass] 27.6 pg Invalid Interpretation Code 27.0 - 33.0 pg Workflow SS MCHC 32.8 G/dL Invalid Interpretation Code 32.0 - 36.0 G/dL AH Workflow SS MCV (RBC) [Entitic vol] 84.2 fL Invalid Interpretation Code 80.0 - 99.0 fL Workflow SS Monocytes (Bld) [#/Vol] 0.6 103/mcL Invalid Interpretation Code 0.1 - 1.4 10^3/mcL AH Workflow SS Monocytes/100 WBC (Bld) 7.5 % Invalid Interpretation Code 2.0 - 13.0 % AH Workflow SS Neutrophils (Bld) [#/Vol] 5.1 103/mcL Invalid Interpretation Code 2.3 - 8.1 10^3/mcL AH Workflow SS Neutrophils/100 WBC (Bld) 68.6 % Invalid Interpretation Code 50.0 - 75.0 % AH Workflow SS Platelet mean volume (Bld) [Entitic vol] 8.1 fL Invalid Interpretation Code 6.6 - 10.5 fL AH Workflow SS Platelets (Bld) [#/Vol] 120 103/mcL Invalid Interpretation Code 150 - 450 10^3/mcL AH Workflow SS Potassium [Moles/Vol] 3.9 mmol/L Invalid Interpretation Code 3.5 - 5.0 mEq/L ADM SS RBC (Bld) [#/Vol] 3.98 106/mcL Invalid Interpretation Code 4.10 - 5.30 10^6/mcL AH Workflow SS Sodium [Moles/Vol] 140 mmol/L Invalid Interpretation Code 136 - 145 mEq/L ADM SS Urea nitrogen [Mass/Vol] 45.0 mg/dL Invalid Interpretation Code 8.0 - 22.0 mg/dL AH ADM SS Urea nitrogen/Creatinine [Mass ratio] 45.5 ratio Invalid Interpretation Code 10.0 - 22.0 ratio AH ADM SS WBC (Bld) [#/Vol] 7.5 103/mcL Invalid Interpretation Code 4.5 - 10.8 10^3/mcL Workflow SS LABORATORYOrdered By: Kashif Funes on 09-19-2022 Blood Glucose Testing Reason Routine (09/19/22 11:46 PM) [facility] LABORATORYOrdered By: Quinton Antony on 09-19-2022 Blood Glucose Testing Reason Routine (09/19/22 10:06 PM) [facility] Glucose [Mass/Vol] 306 mg/dL Invalid Interpretation Code 82 - 115 mg/dL [facility] LABORATORYOrdered By: SYSTEM SYSTEM on 09-19-2022 Lactate [Moles/Vol] 2.1 mmol/L Invalid Interpretation Code 0.4 - 2.0 mmol/L AO ADM SS Lactate [Moles/Vol] 15.4 mmol/L Invalid Interpretation Code 0.4 - 2.0 mmol/L AO ADM SS Calcium [Mass/Vol] 9.2 mg/dL Invalid Interpretation Code 8.4 - 10.2 mg/dL AO ADM SS Chloride [Moles/Vol] 99 mmol/L Invalid Interpretation Code 98 - 107 mmol/L AO ADM SS CO2 [Moles/Vol] 25 mmol/L Invalid Interpretation Code 23 - 31 mmol/L AO ADM SS Creatinine [Mass/Vol] 1.85 mg/dL Invalid Interpretation Code 0.55 - 1.02 mg/dL AO ADM SS Electrolyte Balance 10.0 mEq/L Invalid Interpretation Code 4.0 - 15.0 mEq/L AO ADM SS GFR/1.73 sq M.predicted among blacks MDRD (S/P/Bld) [Vol rate/Area] 33 ml/min/1.73sqm Invalid Interpretation Code AO Chemistry S GFR/1.73 sq M.predicted among non-blacks MDRD (S/P/Bld) [Vol rate/Area] 27 ml/min/1.73sqm Invalid Interpretation Code AO Chemistry S Glucose [Mass/Vol] 348 mg/dL Invalid Interpretation Code 80 - 115 mg/dL AO ADM SS Potassium [Moles/Vol] 4.1 mmol/L Invalid Interpretation Code 3.5 - 5.1 mmol/L AO ADM SS Sodium [Moles/Vol] 134 mmol/L Invalid Interpretation Code 136 - 145 mmol/L AO ADM SS Urea nitrogen [Mass/Vol] 57 mg/dL Invalid Interpretation Code 7 - 18 mg/dL AO ADM SS Urea nitrogen/Creatinine [Mass ratio] 31 ratio Invalid Interpretation Code 7 - 27 ratio AO ADM SS Calcium [Mass/Vol] 9.2 mg/dL Invalid Interpretation Code 8.4 - 10.2 mg/dL AO ADM SS Chloride [Moles/Vol] 98 mmol/L Invalid Interpretation Code 98 - 107 mmol/L AO ADM SS CO2 [Moles/Vol] 24 mmol/L Invalid Interpretation Code 23 - 31 mmol/L AO ADM SS Creatinine [Mass/Vol] 1.89 mg/dL Invalid Interpretation Code 0.55 - 1.02 mg/dL AO ADM SS Electrolyte Balance 1.0 mEq/L Invalid Interpretation Code 4.0 - 15.0 mEq/L AO ADM SS GFR/1.73 sq M.predicted among blacks MDRD (S/P/Bld) [Vol rate/Area] 32 ml/min/1.73sqm Invalid Interpretation Code AO Chemistry S GFR/1.73 sq M.predicted among non-blacks MDRD (S/P/Bld) [Vol rate/Area] 27 ml/min/1.73sqm Invalid Interpretation Code AO Chemistry S Glucose [Mass/Vol] 388 mg/dL Invalid Interpretation Code 80 - 115 mg/dL AO ADM SS Lactate [Moles/Vol] 2.7 mmol/L Invalid Interpretation Code 0.4 - 2.0 mmol/L AO ADM SS Potassium [Moles/Vol] 3.9 mmol/L Invalid Interpretation Code 3.5 - 5.1 mmol/L AO ADM SS Sodium [Moles/Vol] 123 mmol/L Invalid Interpretation Code 136 - 145 mmol/L AO ADM SS Urea nitrogen [Mass/Vol] 57 mg/dL Invalid Interpretation Code 7 - 18 mg/dL AO ADM SS Urea nitrogen/Creatinine [Mass ratio] 30 ratio Invalid Interpretation Code 7 - 27 ratio AO ADM SS Calcium [Mass/Vol] 9.3 mg/dL Invalid Interpretation Code 8.4 - 10.2 mg/dL AO ADM SS Chloride [Moles/Vol] 97 mmol/L Invalid Interpretation Code 98 - 107 mmol/L AO ADM SS CO2 [Moles/Vol] 23 mmol/L Invalid Interpretation Code 23 - 31 mmol/L AO ADM SS Creatinine [Mass/Vol] 1.52 mg/dL Invalid Interpretation Code 0.55 - 1.02 mg/dL AO ADM SS Electrolyte Balance 12.0 mEq/L Invalid Interpretation Code 4.0 - 15.0 mEq/L AO ADM SS GFR/1.73 sq M.predicted among blacks MDRD (S/P/Bld) [Vol rate/Area] 41 ml/min/1.73sqm Invalid Interpretation Code AO Chemistry S GFR/1.73 sq M.predicted among non-blacks MDRD (S/P/Bld) [Vol rate/Area] 34 ml/min/1.73sqm Invalid Interpretation Code AO Chemistry S Glucose [Mass/Vol] 482 mg/dL Invalid Interpretation Code 80 - 115 mg/dL AO ADM SS Potassium [Moles/Vol] 4.8 mmol/L Invalid Interpretation Code 3.5 - 5.1 mmol/L AO ADM SS Sodium [Moles/Vol] 132 mmol/L Invalid Interpretation Code 136 - 145 mmol/L AO ADM SS Troponin I.cardiac DL <= 0.01 ng/mL [Mass/Vol] 8.5 ng/L Invalid Interpretation Code 0.0 - 51.4 ng/L AO ADM SS Urea nitrogen [Mass/Vol] 56 mg/dL Invalid Interpretation Code 7 - 18 mg/dL AO ADM SS Urea nitrogen/Creatinine [Mass ratio] 37 ratio Invalid Interpretation Code 7 - 27 ratio AO ADM SS LABORATORYOrdered By: Karla Harrington on 09-19-2022 Blood Glucose Testing Reason Routine (09/19/22 3:29 PM) [facility] Glucose [Mass/Vol] 346 mg/dL Invalid Interpretation Code 82 - 115 mg/dL [facility] LABORATORYOrdered By: Tari Escobedo on 09-19-2022 Appearance (U) Clear (09/19/22 12:12 PM) Invalid Interpretation Code Clear AO Auto Urine SS Basophil, Absolute 0.0 103/mcL Invalid Interpretation Code 0.0 - 0.2 10^3/mcL AO Workflow SS Basophils/100 WBC (Bld) 0.3 % Invalid Interpretation Code 0.0 - 2.5 % AO Workflow SS Bilirubin Ql (U) Negative (09/19/22 12:12 PM) Invalid Interpretation Code Negative AO Auto Urine SS Color (U) Yellow (09/19/22 12:12 PM) Invalid Interpretation Code AO Auto Urine SS Eosinophil, Absolute 0.1 103/mcL Invalid Interpretation Code 0.0 - 0.4 10^3/mcL AO Workflow SS Eosinophils/100 WBC (Bld) 0.6 % Invalid Interpretation Code 0.0 - 7.0 % AO Workflow SS Erythrocyte distribution width (RBC) [Ratio] 15.5 % Invalid Interpretation Code 11.5 - 14.5 % AO Workflow SS Glucose Test strip (U) [Mass/Vol] 250 mg/dL Invalid Interpretation Code Negativemg/d L AO Auto Urine SS Hematocrit (Bld) [Volume fraction] 33.6 % Invalid Interpretation Code 37.0 - 47.0 % AO Workflow SS Hemoglobin (Bld) [Mass/Vol] 11.2 G/dL Invalid Interpretation Code 12.0 - 16.0 G/dL AO Workflow SS Hemoglobin Auto test strip (U) [Mass/Vol] Negative (09/19/22 12:12 PM) Invalid Interpretation Code Negative AO Auto Urine SS Ketones Ql (U) Negative Invalid Interpretation Code Negativemg/d L AO Auto Urine SS Lymphocyte, Absolute 1.5 103/mcL Invalid Interpretation Code 0.8 - 3.9 10^3/mcL AO Workflow SS Lymphocytes/100 WBC (Bld) 14.4 % Invalid Interpretation Code 10.0 - 50.0 % AO Workflow SS MCH (RBC) [Entitic mass] 27.8 pg Invalid Interpretation Code 27.0 - 31.2 pg AO Workflow SS MCHC 33.5 G/dL Invalid Interpretation Code 33.0 - 37.0 G/dL AO Workflow SS MCV (RBC) [Entitic vol] 83.2 fL Invalid Interpretation Code 80.0 - 94.0 fL AO Workflow SS Monocyte distribution width Auto (Bld) [Entitic vol] 22.30 Invalid Interpretation Code 0.00 - 20.00 AO Workflow SS Comment on above: Result Comment: For adults in ED, MDW>20.0 may be associated with a higher risk of sepsis during the first 12hrs of hospital admission Monocyte, Absolute 0.6 103/mcL Invalid Interpretation Code 0.2 - 1.0 10^3/mcL AO Workflow SS Monocytes/100 WBC (Bld) 6.1 % Invalid Interpretation Code 1.7 - 13.0 % AO Workflow SS Neutrophil, Absolute 8.0 103/mcL Invalid Interpretation Code 2.9 - 6.2 10^3/mcL AO Workflow SS Neutrophils/100 WBC (Bld) 78.6 % Invalid Interpretation Code 37.0 - 80.0 % AO Workflow SS Platelet mean volume (Bld) [Entitic vol] 8.5 fL Invalid Interpretation Code 7.4 - 10.4 fL AO Workflow SS Platelets (Bld) [#/Vol] 138 103/mcL Invalid Interpretation Code 130 - 400 10^3/mcL AO Workflow SS RBC (Bld) [#/Vol] 4.04 106/mcL Invalid Interpretation Code 4.20 - 5.40 10^6/mcL AO Workflow SS UA Leuk Est Negative (09/19/22 12:12 PM) Invalid Interpretation Code Negative AO Auto Urine SS UA Nitrite Negative (09/19/22 12:12 PM) Invalid Interpretation Code Negative AO Auto Urine SS UA pH 5.0 (09/19/22 12:12 PM) Invalid Interpretation Code 5.0 - 8.0 AO Auto Urine SS UA Protein Negative Invalid Interpretation Code Negativemg/d L AO Auto Urine SS UA Spec Grav 1.020 (09/19/22 12:12 PM) Invalid Interpretation Code 1.015-1.025 AO Auto Urine SS UA Specimen Type Catheter (09/19/22 12:12 PM) Invalid Interpretation Code AO Auto Urine SS UA Urobilinogen 0.2 E.U./dL Invalid Interpretation Code 0.2-1.0E.U./ dL AO Auto Urine SS WBC (Bld) [#/Vol] 10.2 103/mcL Invalid Interpretation Code 4.6 - 10.8 10^3/mcL AO Workflow SS LABORATORYOrdered By: Siobhan Galaviz on 07-09-2022 Blood Glucose Testing Reason Routine (07/09/22 12:15 PM) [facility] Glucose [Mass/Vol] 160 mg/dL Invalid Interpretation Code 82 - 115 mg/dL [facility] LABORATORYOrdered By: Hi Velazquez on 07-09-2022 Blood Glucose Testing Reason Routine (07/09/22 8:14 AM) [facility] Glucose [Mass/Vol] 147 mg/dL Invalid Interpretation Code 82 - 115 mg/dL [facility] LABORATORYOrdered By: SYSTEM SYSTEM on 07-09-2022 Calcium [Mass/Vol] 9.5 mg/dL Invalid Interpretation Code 8.4 - 10.2 mg/dL AO ADM SS Chloride [Moles/Vol] 102 mmol/L Invalid Interpretation Code 98 - 107 mmol/L AO ADM SS CO2 [Moles/Vol] 25 mmol/L Invalid Interpretation Code 23 - 31 mmol/L AO ADM SS Creatinine [Mass/Vol] 1.12 mg/dL Invalid Interpretation Code 0.55 - 1.02 mg/dL AO ADM SS Electrolyte Balance 12.0 mEq/L Invalid Interpretation Code 4.0 - 15.0 mEq/L AO ADM SS GFR 59 ml/min/1.73sqm Invalid Interpretation Code AO Chemistry S GFR Non- 49 ml/min/1.73sqm Invalid Interpretation Code AO Chemistry S Glucose [Mass/Vol] 143 mg/dL Invalid Interpretation Code 80 - 115 mg/dL AO ADM SS Magnesium [Mass/Vol] 1.6 mg/dL Invalid Interpretation Code 1.8 - 2.4 mg/dL AO ADM SS Potassium [Moles/Vol] 4.3 mmol/L Invalid Interpretation Code 3.5 - 5.1 mmol/L AO ADM SS Sodium [Moles/Vol] 139 mmol/L Invalid Interpretation Code 136 - 145 mmol/L AO ADM SS Urea nitrogen [Mass/Vol] 22 mg/dL Invalid Interpretation Code 7 - 18 mg/dL AO ADM SS Urea nitrogen/Creatinine [Mass ratio] 20 ratio Invalid Interpretation Code 7 - 27 ratio AO ADM SS LABORATORYOrdered By: Anastacio Kowalski on 07-08-2022 Blood Glucose Testing Reason Routine (07/08/22 9:34 PM) [facility] Glucose [Mass/Vol] 127 mg/dL Invalid Interpretation Code 82 - 115 mg/dL [facility] LABORATORYOrdered By: Rissa Craven on 07-06-2022 Basophil, Absolute 0.0 103/mcL Invalid Interpretation Code 0.0 - 0.2 10^3/mcL AO Workflow SS Basophils/100 WBC (Bld) 0.4 % Invalid Interpretation Code 0.0 - 2.5 % AO Workflow SS Eosinophil, Absolute 0.2 103/mcL Invalid Interpretation Code 0.0 - 0.4 10^3/mcL AO Workflow SS Eosinophils/100 WBC (Bld) 2.6 % Invalid Interpretation Code 0.0 - 7.0 % AO Workflow SS Erythrocyte distribution width (RBC) [Ratio] 14.8 % Invalid Interpretation Code 11.5 - 14.5 % AO Workflow SS Hematocrit (Bld) [Volume fraction] 32.2 % Invalid Interpretation Code 37.0 - 47.0 % AO Workflow SS Hemoglobin (Bld) [Mass/Vol] 10.7 G/dL Invalid Interpretation Code 12.0 - 16.0 G/dL AO Workflow SS Lymphocyte, Absolute 1.9 103/mcL Invalid Interpretation Code 0.8 - 3.9 10^3/mcL AO Workflow SS Lymphocytes/100 WBC (Bld) 31.9 % Invalid Interpretation Code 10.0 - 50.0 % AO Workflow SS MCH (RBC) [Entitic mass] 28.0 pg Invalid Interpretation Code 27.0 - 31.2 pg AO Workflow SS MCHC 33.3 G/dL Invalid Interpretation Code 33.0 - 37.0 G/dL AO Workflow SS MCV (RBC) [Entitic vol] 84.1 fL Invalid Interpretation Code 80.0 - 94.0 fL AO Workflow SS Monocyte, Absolute 0.4 103/mcL Invalid Interpretation Code 0.2 - 1.0 10^3/mcL AO Workflow SS Monocytes/100 WBC (Bld) 6.8 % Invalid Interpretation Code 1.7 - 13.0 % AO Workflow SS Neutrophil, Absolute 3.5 103/mcL Invalid Interpretation Code 2.9 - 6.2 10^3/mcL AO Workflow SS Neutrophils/100 WBC (Bld) 58.3 % Invalid Interpretation Code 37.0 - 80.0 % AO Workflow SS Platelet mean volume (Bld) [Entitic vol] 7.3 fL Invalid Interpretation Code 7.4 - 10.4 fL AO Workflow SS Platelets (Bld) [#/Vol] 189 103/mcL Invalid Interpretation Code 130 - 400 10^3/mcL AO Workflow SS RBC (Bld) [#/Vol] 3.83 106/mcL Invalid Interpretation Code 4.20 - 5.40 10^6/mcL AO Workflow SS WBC (Bld) [#/Vol] 6.0 103/mcL Invalid Interpretation Code 4.6 - 10.8 10^3/mcL AO Workflow SS LABORATORYOrdered By: SYSTEM SYSTEM on 07-06-2022 Calcium [Mass/Vol] 9.6 mg/dL Invalid Interpretation Code 8.4 - 10.2 mg/dL AO ADM SS Chloride [Moles/Vol] 101 mmol/L Invalid Interpretation Code 98 - 107 mmol/L AO ADM SS CO2 [Moles/Vol] 27 mmol/L Invalid Interpretation Code 23 - 31 mmol/L AO ADM SS Creatinine [Mass/Vol] 1.02 mg/dL Invalid Interpretation Code 0.55 - 1.02 mg/dL AO ADM SS Electrolyte Balance 8.0 mEq/L Invalid Interpretation Code 4.0 - 15.0 mEq/L AO ADM SS GFR 66 ml/min/1.73sqm Invalid Interpretation Code AO Chemistry S GFR Non- 54 ml/min/1.73sqm Invalid Interpretation Code AO Chemistry S Glucose [Mass/Vol] 220 mg/dL Invalid Interpretation Code 80 - 115 mg/dL AO ADM SS Magnesium [Mass/Vol] 1.7 mg/dL Invalid Interpretation Code 1.8 - 2.4 mg/dL AO ADM SS Potassium [Moles/Vol] 4.1 mmol/L Invalid Interpretation Code 3.5 - 5.1 mmol/L AO ADM SS Sodium [Moles/Vol] 136 mmol/L Invalid Interpretation Code 136 - 145 mmol/L AO ADM SS Urea nitrogen [Mass/Vol] 23 mg/dL Invalid Interpretation Code 7 - 18 mg/dL AO ADM SS Urea nitrogen/Creatinine [Mass ratio] 23 ratio Invalid Interpretation Code 7 - 27 ratio AO ADM SS LABORATORYOrdered By: SYSTEM SYSTEM on 07-05-2022 Calcium [Mass/Vol] 9.4 mg/dL Invalid Interpretation Code 8.4 - 10.2 mg/dL AO ADM SS Chloride [Moles/Vol] 102 mmol/L Invalid Interpretation Code 98 - 107 mmol/L AO ADM SS CO2 [Moles/Vol] 27 mmol/L Invalid Interpretation Code 23 - 31 mmol/L AO ADM SS Creatinine [Mass/Vol] 1.11 mg/dL Invalid Interpretation Code 0.55 - 1.02 mg/dL AO ADM SS Electrolyte Balance 10.0 mEq/L Invalid Interpretation Code 4.0 - 15.0 mEq/L AO ADM SS Free T4 [Mass/Vol] 1.38 ng/dL Invalid Interpretation Code 0.76 - 1.46 ng/dL AO ADM SS GFR 60 ml/min/1.73sqm Invalid Interpretation Code AO Chemistry S GFR Non- 49 ml/min/1.73sqm Invalid Interpretation Code AO Chemistry S Glucose [Mass/Vol] 223 mg/dL Invalid Interpretation Code 80 - 115 mg/dL AO ADM SS Magnesium [Mass/Vol] 1.7 mg/dL Invalid Interpretation Code 1.8 - 2.4 mg/dL AO ADM SS Potassium [Moles/Vol] 4.0 mmol/L Invalid Interpretation Code 3.5 - 5.1 mmol/L AO ADM SS Sodium [Moles/Vol] 139 mmol/L Invalid Interpretation Code 136 - 145 mmol/L AO ADM SS TSH Qn 0.78 m[IU]/L Invalid Interpretation Code 0.36 - 3.74 mcIU/mL AO ADM SS Urea nitrogen [Mass/Vol] 27 mg/dL Invalid Interpretation Code 7 - 18 mg/dL AO ADM SS Urea nitrogen/Creatinine [Mass ratio] 24 ratio Invalid Interpretation Code 7 - 27 ratio AO ADM SS LABORATORYOrdered By: SYSTEM SYSTEM on 07-04-2022 HbA1c (Bld) [Mass fraction] 8.9 % Invalid Interpretation Code 4.3 - 6.4 % AO ADM SS LABORATORYOrdered By: Stefany Odonnell on 07-03-2022 Basophil, Absolute 0.0 103/mcL Invalid Interpretation Code 0.0 - 0.2 10^3/mcL AO Workflow SS Basophils/100 WBC (Bld) 0.4 % Invalid Interpretation Code 0.0 - 2.5 % AO Workflow SS Eosinophil, Absolute 0.2 103/mcL Invalid Interpretation Code 0.0 - 0.4 10^3/mcL AO Workflow SS Eosinophils/100 WBC (Bld) 3.4 % Invalid Interpretation Code 0.0 - 7.0 % AO Workflow SS Erythrocyte distribution width (RBC) [Ratio] 14.9 % Invalid Interpretation Code 11.5 - 14.5 % AO Workflow SS Hematocrit (Bld) [Volume fraction] 33.2 % Invalid Interpretation Code 37.0 - 47.0 % AO Workflow SS Hemoglobin (Bld) [Mass/Vol] 11.1 G/dL Invalid Interpretation Code 12.0 - 16.0 G/dL AO Workflow SS Lymphocyte, Absolute 1.7 103/mcL Invalid Interpretation Code 0.8 - 3.9 10^3/mcL AO Workflow SS Lymphocytes/100 WBC (Bld) 26.4 % Invalid Interpretation Code 10.0 - 50.0 % AO Workflow SS MCH (RBC) [Entitic mass] 28.5 pg Invalid Interpretation Code 27.0 - 31.2 pg AO Workflow SS MCHC 33.4 G/dL Invalid Interpretation Code 33.0 - 37.0 G/dL AO Workflow SS MCV (RBC) [Entitic vol] 85.3 fL Invalid Interpretation Code 80.0 - 94.0 fL AO Workflow SS Monocyte, Absolute 0.5 103/mcL Invalid Interpretation Code 0.2 - 1.0 10^3/mcL AO Workflow SS Monocytes/100 WBC (Bld) 7.5 % Invalid Interpretation Code 1.7 - 13.0 % AO Workflow SS Neutrophil, Absolute 4.1 103/mcL Invalid Interpretation Code 2.9 - 6.2 10^3/mcL AO Workflow SS Neutrophils/100 WBC (Bld) 62.3 % Invalid Interpretation Code 37.0 - 80.0 % AO Workflow SS Platelet mean volume (Bld) [Entitic vol] 8.0 fL Invalid Interpretation Code 7.4 - 10.4 fL AO Workflow SS Platelets (Bld) [#/Vol] 151 103/mcL Invalid Interpretation Code 130 - 400 10^3/mcL AO Workflow SS RBC (Bld) [#/Vol] 3.89 106/mcL Invalid Interpretation Code 4.20 - 5.40 10^6/mcL AO Workflow SS WBC (Bld) [#/Vol] 6.6 103/mcL Invalid Interpretation Code 4.6 - 10.8 10^3/mcL AO Workflow SS No Panel Informationon 07-03 GSAER Gram Positive Cocci in clusters [facility] Microscopic examination of blood, culture Staphylococcus coagulase negative Isolated from aerobe bottle only. 1 of 2 sets positive Organism is a potential contaminant. Clinical Significance undetermined. Please contact Microbiology if further work-up is required. [facility] Microscopic examination of blood, culture Blood Culture: No Growth at 5 days. [facility] LABORATORYOrdered By: Vianney Cavazos on 07-02-2022 Adenovirus DNA VARSHA+non-probe Ql (Nph) Not Detected *NA* (07/02/22 8:20 AM) Invalid Interpretation Code Not Detected AH Auto Viro/Sero SS B. parapertussis [id number] DNA VARSHA+non-probe Ql (Nph) Not Detected *NA* (07/02/22 8:20 AM) Invalid Interpretation Code Not Detected AH Auto Viro/Sero SS B. pertussis toxin promoter region VARSHA+non-probe Ql (Nph) Not Detected *NA* (07/02/22 8:20 AM) Invalid Interpretation Code Not Detected AH Auto Viro/Sero SS C. pneumoniae DNA VARSHA+non-probe Ql (Nph) Not Detected *NA* (07/02/22 8:20 AM) Invalid Interpretation Code Not Detected AH Auto Viro/Sero SS FLUAV RNA VARSHA+non-probe Ql (Nph) Not Detected *NA* (07/02/22 8:20 AM) Invalid Interpretation Code Not Detected AH Auto Viro/Sero SS FLUBV RNA VARSHA+non-probe Ql (Nph) Not Detected *NA* (07/02/22 8:20 AM) Invalid Interpretation Code Not Detected AH Auto Viro/Sero SS hMPV RNA AVRSHA+non-probe Ql (Nph) Not Detected *NA* (07/02/22 8:20 AM) Invalid Interpretation Code Not Detected AH Auto Viro/Sero SS M. pneumoniae DNA VARSHA+non-probe Ql (Nph) Not Detected *NA* (07/02/22 8:20 AM) Invalid Interpretation Code Not Detected AH Auto Viro/Sero SS Parainfluenza virus 1 RNA VARSHA+non-probe Ql (Nph) Not Detected *NA* (07/02/22 8:20 AM) Invalid Interpretation Code Not Detected AH Auto Viro/Sero SS Parainfluenza virus 2 RNA VARSHA+non-probe Ql (Nph) Not Detected *NA* (07/02/22 8:20 AM) Invalid Interpretation Code Not Detected AH Auto Viro/Sero SS Parainfluenza virus 3 RNA VARSHA+non-probe Ql (Nph) Not Detected *NA* (07/02/22 8:20 AM) Invalid Interpretation Code Not Detected AH Auto Viro/Sero SS Parainfluenza virus 4 RNA VARSHA+non-probe Ql (Nph) Not Detected *NA* (07/02/22 8:20 AM) Invalid Interpretation Code Not Detected AH Auto Viro/Sero SS Rhinovirus+Enterovir us RNA VARSHA+non-probe Ql (Nph) Not Detected *NA* (07/02/22 8:20 AM) Invalid Interpretation Code Not Detected AH Auto Viro/Sero SS RSV RNA VARSHA+non-probe Ql (Nph) Not Detected *NA* (07/02/22 8:20 AM) Invalid Interpretation Code Not Detected AH Auto Viro/Sero SS SARS-CoV-2 (COVID-19) RNA VARSHA+probe Ql (Resp) Not Detected *NA* (07/02/22 8:20 AM) Invalid Interpretation Code Not Detected AH Auto Viro/Sero SS LABORATORYOrdered By: SYSTEM SYSTEM on 07-02-2022 Albumin BCP dye [Mass/Vol] 2.5 G/dL Invalid Interpretation Code 3.4 - 4.8 G/dL AO ADM SS Albumin/Globulin [Mass ratio] 0.6 {ratio} Invalid Interpretation Code 1.1 - 2.5 ratio AO ADM SS ALP [Catalytic activity/Vol] 99 U/L Invalid Interpretation Code 40 - 135 U/L AO ADM SS ALT With P-5'-P [Catalytic activity/Vol] 45 U/L Invalid Interpretation Code 14 - 59 U/L AO ADM SS AST With P-5'-P [Catalytic activity/Vol] 44 U/L Invalid Interpretation Code 10 - 40 U/L AO ADM SS Bilirubin [Mass/Vol] 0.7 mg/dL Invalid Interpretation Code 0.2 - 1.0 mg/dL AO ADM SS Globulin 4.1 G/dL Invalid Interpretation Code AO ADM SS Protein [Mass/Vol] 6.6 G/dL Invalid Interpretation Code 6.4 - 8.2 G/dL AO ADM SS LABORATORYOrdered By: Tari Escobedo on 07-02-2022 Basophil, Absolute 0.0 103/mcL Invalid Interpretation Code 0.0 - 0.2 10^3/mcL AO Workflow SS Basophils/100 WBC (Bld) 0.1 % Invalid Interpretation Code 0.0 - 2.5 % AO Workflow SS Eosinophil, Absolute 0.1 103/mcL Invalid Interpretation Code 0.0 - 0.4 10^3/mcL AO Workflow SS Eosinophils/100 WBC (Bld) 1.9 % Invalid Interpretation Code 0.0 - 7.0 % AO Workflow SS Erythrocyte distribution width (RBC) [Ratio] 14.8 % Invalid Interpretation Code 11.5 - 14.5 % AO Workflow SS Hematocrit (Bld) [Volume fraction] 31.6 % Invalid Interpretation Code 37.0 - 47.0 % AO Workflow SS Hemoglobin (Bld) [Mass/Vol] 10.6 G/dL Invalid Interpretation Code 12.0 - 16.0 G/dL AO Workflow SS Lymphocyte, Absolute 1.3 103/mcL Invalid Interpretation Code 0.8 - 3.9 10^3/mcL AO Workflow SS Lymphocytes/100 WBC (Bld) 21.2 % Invalid Interpretation Code 10.0 - 50.0 % AO Workflow SS MCH (RBC) [Entitic mass] 28.2 pg Invalid Interpretation Code 27.0 - 31.2 pg AO Workflow SS MCHC 33.4 G/dL Invalid Interpretation Code 33.0 - 37.0 G/dL AO Workflow SS MCV (RBC) [Entitic vol] 84.5 fL Invalid Interpretation Code 80.0 - 94.0 fL AO Workflow SS Monocyte, Absolute 0.6 103/mcL Invalid Interpretation Code 0.2 - 1.0 10^3/mcL AO Workflow SS Monocytes/100 WBC (Bld) 9.3 % Invalid Interpretation Code 1.7 - 13.0 % AO Workflow SS Neutrophil, Absolute 4.1 103/mcL Invalid Interpretation Code 2.9 - 6.2 10^3/mcL AO Workflow SS Neutrophils/100 WBC (Bld) 67.5 % Invalid Interpretation Code 37.0 - 80.0 % AO Workflow SS Platelet mean volume (Bld) [Entitic vol] 8.1 fL Invalid Interpretation Code 7.4 - 10.4 fL AO Workflow SS Platelets (Bld) [#/Vol] 128 103/mcL Invalid Interpretation Code 130 - 400 10^3/mcL AO Workflow SS RBC (Bld) [#/Vol] 3.74 106/mcL Invalid Interpretation Code 4.20 - 5.40 10^6/mcL AO Workflow SS WBC (Bld) [#/Vol] 6.1 103/mcL Invalid Interpretation Code 4.6 - 10.8 10^3/mcL AO Workflow SS LABORATORYOrdered By: SYSTEM SYSTEM on 07-01-2022 Lactate [Moles/Vol] 1.7 mmol/L Invalid Interpretation Code 0.4 - 2.0 mmol/L AO ADM SS Lactate [Moles/Vol] 2.3 mmol/L Invalid Interpretation Code 0.4 - 2.0 mmol/L AO ADM SS Lactate [Moles/Vol] 3.6 mmol/L Invalid Interpretation Code 0.4 - 2.0 mmol/L AO ADM SS Albumin BCP dye [Mass/Vol] 2.9 G/dL Invalid Interpretation Code 3.4 - 4.8 G/dL AO ADM SS Albumin/Globulin [Mass ratio] 0.6 {ratio} Invalid Interpretation Code 1.1 - 2.5 ratio AO ADM SS ALP [Catalytic activity/Vol] 106 U/L Invalid Interpretation Code 40 - 135 U/L AO ADM SS ALT With P-5'-P [Catalytic activity/Vol] 20 U/L Invalid Interpretation Code 14 - 59 U/L AO ADM SS AST With P-5'-P [Catalytic activity/Vol] 44 U/L Invalid Interpretation Code 10 - 40 U/L AO ADM SS Bilirubin [Mass/Vol] 0.9 mg/dL Invalid Interpretation Code 0.2 - 1.0 mg/dL AO ADM SS Globulin 4.5 G/dL Invalid Interpretation Code AO ADM SS Protein [Mass/Vol] 7.4 G/dL Invalid Interpretation Code 6.4 - 8.2 G/dL AO ADM SS Troponin I.cardiac DL <= 0.01 ng/mL [Mass/Vol] 11.6 ng/L Invalid Interpretation Code 0.0 - 51.4 ng/L AO ADM SS LABORATORYOrdered By: Shahid Simental on 07-01-2022 Appearance (U) Clear (07/01/22 1:32 PM) Invalid Interpretation Code Clear AO Auto Urine SS Bilirubin Ql (U) Small *ABN* (07/01/22 1:32 PM) Invalid Interpretation Code Negative AO Auto Urine SS Color (U) Yellow (07/01/22 1:32 PM) Invalid Interpretation Code AO Auto Urine SS Glucose Test strip (U) [Mass/Vol] 250 mg/dL Invalid Interpretation Code Negativemg/d L AO Auto Urine SS Hemoglobin Auto test strip (U) [Mass/Vol] Negative (07/01/22 1:32 PM) Invalid Interpretation Code Negative AO Auto Urine SS Ketones Ql (U) 15 mg/dL Invalid Interpretation Code Negativemg/d L AO Auto Urine SS UA Leuk Est Negative (07/01/22 1:32 PM) Invalid Interpretation Code Negative AO Auto Urine SS UA Nitrite Negative (07/01/22 1:32 PM) Invalid Interpretation Code Negative AO Auto Urine SS UA pH 7.5 (07/01/22 1:32 PM) Invalid Interpretation Code 5.0 - 8.0 AO Auto Urine SS UA Protein 100 mg/dL Invalid Interpretation Code Negativemg/d L AO Auto Urine SS UA RBC 0-5 /HPF Invalid Interpretation Code None Seen/HPF AO Auto Urine SS UA Spec Grav 1.020 (07/01/22 1:32 PM) Invalid Interpretation Code 1.015-1.025 AO Auto Urine SS UA Specimen Type Clean Catch (07/01/22 1:32 PM) Invalid Interpretation Code AO Auto Urine SS UA Squam Epithelial None Seen /HPF Invalid Interpretation Code None Seen/HPF AO Auto Urine SS UA Urobilinogen 1.0 E.U./dL Invalid Interpretation Code 0.2-1.0E.U./ dL AO Auto Urine SS WBC LM.HPF (Urine sed) [#/Area] 0-5 /HPF Invalid Interpretation Code None Seen/HPF AO Auto Urine SS LABORATORYOrdered By: Aletha lange on 07-01-2022 ACINETOBACTER CALCOACETICUS-ROSALIE CARLIE COMPLEX DNA:PRTHR:PT:BLD.POS GROWTH:ORD:NON-PROBE .AMP.TAR Not Detected *NA* (07/01/22 12:00 PM) Invalid Interpretation Code Not Detected AH Auto Microbiology GL SS BACTERIAL METHICILLIN RESISTANCE MECA+MECC GENES+SCCMEC+ORFX JUNCTION:PRTHR:PT:IS OLATE/SPECIMEN:ORD:M OLGEN Not Applicable *NA* (07/01/22 12:00 PM) Invalid Interpretation Code Not Detected AH Auto Microbiology GL SS BACTEROIDES FRAGILIS DNA:PRTHR:PT:BLD.POS GROWTH:ORD:NON-PROBE .AMP.TAR Not Detected *NA* (07/01/22 12:00 PM) Invalid Interpretation Code Not Detected AH Auto Microbiology GL SS BCID Comment See Comment (07/01/22 12:00 PM) Invalid Interpretation Code AH Auto Microbiology GL SS C. albicans DNA VARSHA+non-probe Ql (Pos bld culture) Not Detected *NA* (07/01/22 12:00 PM) Invalid Interpretation Code Not Detected AH Auto Microbiology GL SS C. glabrata DNA VARSHA+non-probe Ql (Pos bld culture) Not Detected *NA* (07/01/22 12:00 PM) Invalid Interpretation Code Not Detected AH Auto Microbiology GL SS C. krusei DNA VARSHA+non-probe Ql (Pos bld culture) Not Detected *NA* (07/01/22 12:00 PM) Invalid Interpretation Code Not Detected AH Auto Microbiology GL SS C. parapsilosis DNA VARSHA+non-probe Ql (Pos bld culture) Not Detected *NA* (07/01/22 12:00 PM) Invalid Interpretation Code Not Detected AH Auto Microbiology GL SS C. tropicalis DNA VARSHA+non-probe Ql (Pos bld culture) Not Detected *NA* (07/01/22 12:00 PM) Invalid Interpretation Code Not Detected AH Auto Microbiology GL SS HANNA AURIS DNA:PRTHR:PT:BLD.POS GROWTH:ORD:NON-PROBE .AMP.TAR Not Detected *NA* (07/01/22 12:00 PM) Invalid Interpretation Code Not Detected AH Auto Microbiology GL SS Carbapenem resistance lorelei OXA-48-like gene Molgen Ql (Islt/Spec) Not Applicable *NA* (07/01/22 12:00 PM) Invalid Interpretation Code Not Detected AH Auto Microbiology GL SS Carbapenem resistance blaIMP gene Molgen Ql (Islt/Spec) Not Applicable *NA* (07/01/22 12:00 PM) Invalid Interpretation Code Not Detected AH Auto Microbiology GL SS Carbapenem resistance blaKPC gene Molgen Ql (Islt/Spec) Not Applicable *NA* (07/01/22 12:00 PM) Invalid Interpretation Code Not Detected AH Auto Microbiology GL SS Carbapenem resistance blaNDM gene Molgen Ql (Islt/Spec) Not Applicable *NA* (07/01/22 12:00 PM) Invalid Interpretation Code Not Detected AH Auto Microbiology GL SS Carbapenem resistance blaVIM gene Molgen Ql (Islt/Spec) Not Applicable *NA* (07/01/22 12:00 PM) Invalid Interpretation Code Not Detected AH Auto Microbiology GL SS Cephalosporin resistance lorelei(CTX-M) gene Molgen Ql (Islt/Spec) Not Applicable *NA* (07/01/22 12:00 PM) Invalid Interpretation Code Not Detected AH Auto Microbiology GL SS Colistin resistance mcr-1 gene Molgen Ql (Islt/Spec) Not Applicable *NA* (07/01/22 12:00 PM) Invalid Interpretation Code Not Detected AH Auto Microbiology GL SS CRYPTOCOCCUS GATTII+NEOFORMANS DNA:PRTHR:PT:BLD.POS GROWTH:ORD:NON-PROBE .AMP.TAR Not Detected *NA* (07/01/22 12:00 PM) Invalid Interpretation Code Not Detected AH Auto Microbiology GL SS E. cloacae complex DNA VARSHA+non-probe Ql (Pos bld culture) Not Detected *NA* (07/01/22 12:00 PM) Invalid Interpretation Code Not Detected AH Auto Microbiology GL SS E. coli DNA VARSHA+non-probe Ql (Pos bld culture) Not Detected *NA* (07/01/22 12:00 PM) Invalid Interpretation Code Not Detected AH Auto Microbiology GL SS ENTEROBACTERALES DNA:PRTHR:PT:BLD.POS GROWTH:ORD:NON-PROBE .AMP.TAR Not Detected *NA* (07/01/22 12:00 PM) Invalid Interpretation Code Not Detected AH Auto Microbiology GL SS ENTEROCOCCUS FAECALIS DNA:PRTHR:PT:BLD.POS GROWTH:ORD:NON-PROBE .AMP.TAR Not Detected *NA* (07/01/22 12:00 PM) Invalid Interpretation Code Not Detected AH Auto Microbiology GL SS ENTEROCOCCUS FAECIUM DNA:PRTHR:PT:BLD.POS GROWTH:ORD:NON-PROBE .AMP.TAR Not Detected *NA* (07/01/22 12:00 PM) Invalid Interpretation Code Not Detected AH Auto Microbiology GL SS H. influenzae DNA VARSHA+non-probe Ql (Pos bld culture) Not Detected *NA* (07/01/22 12:00 PM) Invalid Interpretation Code Not Detected AH Auto Microbiology GL SS K. oxytoca DNA VARSHA+non-probe Ql (Pos bld culture) Not Detected *NA* (07/01/22 12:00 PM) Invalid Interpretation Code Not Detected AH Auto Microbiology GL SS KLEBSIELLA AEROGENES DNA:PRTHR:PT:BLD.POS GROWTH:ORD:NON-PROBE .AMP.TAR Not Detected *NA* (07/01/22 12:00 PM) Invalid Interpretation Code Not Detected AH Auto Microbiology GL SS KLEBSIELLA PNEUMONIAE+KLEBSIELL A VARIICOLA+KLEBSIELLA QUASIPNEUMONIAE DNA:PRTHR:PT:BLD.POS GROWTH:ORD:NON-PROBE .AMP.TAR Not Detected *NA* (07/01/22 12:00 PM) Invalid Interpretation Code Not Detected AH Auto Microbiology GL SS L. monocytogenes DNA VARSHA+non-probe Ql (Pos bld culture) Not Detected *NA* (07/01/22 12:00 PM) Invalid Interpretation Code Not Detected AH Auto Microbiology GL SS Methicillin resistance mecA+mecC genes Molgen Ql (Islt/Spec) Detected *ABN* (07/01/22 12:00 PM) Invalid Interpretation Code Not Detected AH Auto Microbiology GL SS N. meningitidis DNA VARSHA+non-probe Ql (Pos bld culture) Not Detected *NA* (07/01/22 12:00 PM) Invalid Interpretation Code Not Detected AH Auto Microbiology GL SS P. aeruginosa DNA VARSHA+non-probe Ql (Pos bld culture) Not Detected *NA* (07/01/22 12:00 PM) Invalid Interpretation Code Not Detected AH Auto Microbiology GL SS Proteus sp DNA VARSHA+non-probe Ql (Pos bld culture) Not Detected *NA* (07/01/22 12:00 PM) Invalid Interpretation Code Not Detected AH Auto Microbiology GL SS S. agalactiae DNA VARSHA+non-probe Ql (Pos bld culture) Not Detected *NA* (07/01/22 12:00 PM) Invalid Interpretation Code Not Detected AH Auto Microbiology GL SS S. aureus DNA VARSHA+non-probe Ql (Pos bld culture) Not Detected *NA* (07/01/22 12:00 PM) Invalid Interpretation Code Not Detected AH Auto Microbiology GL SS S. marcescens DNA VARSHA+non-probe Ql (Pos bld culture) Not Detected *NA* (07/01/22 12:00 PM) Invalid Interpretation Code Not Detected AH Auto Microbiology GL SS S. pneumoniae DNA VARSHA+non-probe Ql (Pos bld culture) Not Detected *NA* (07/01/22 12:00 PM) Invalid Interpretation Code Not Detected AH Auto Microbiology GL SS S. pyogenes DNA VARSHA+non-probe Ql (Pos bld culture) Not Detected *NA* (07/01/22 12:00 PM) Invalid Interpretation Code Not Detected AH Auto Microbiology GL SS SALMONELLA SP DNA:PRTHR:PT:BLD.POS GROWTH:ORD:NON-PROBE .AMP.TAR Not Detected *NA* (07/01/22 12:00 PM) Invalid Interpretation Code Not Detected AH Auto Microbiology GL SS STAPHYLOCOCCUS EPIDERMIDIS DNA:PRTHR:PT:BLD.POS GROWTH:ORD:NON-PROBE .AMP.TAR Detected *ABN* (07/01/22 12:00 PM) Invalid Interpretation Code Not Detected AH Auto Microbiology GL SS STAPHYLOCOCCUS LUGDUNENSIS DNA:PRTHR:PT:BLD.POS GROWTH:ORD:NON-PROBE .AMP.TAR Not Detected *NA* (07/01/22 12:00 PM) Invalid Interpretation Code Not Detected AH Auto Microbiology GL SS Staphylococcus sp DNA VARSHA+non-probe Ql (Pos bld culture) Detected *ABN* (07/01/22 12:00 PM) Invalid Interpretation Code Not Detected AH Auto Microbiology GL SS STENOTROPHOMONAS MALTOPHILIA DNA:PRTHR:PT:BLD.POS GROWTH:ORD:NON-PROBE .AMP.TAR Not Detected *NA* (07/01/22 12:00 PM) Invalid Interpretation Code Not Detected AH Auto Microbiology GL SS Streptococcus sp DNA VARSHA+non-probe Ql (Pos bld culture) Not Detected *NA* (07/01/22 12:00 PM) Invalid Interpretation Code Not Detected AH Auto Microbiology GL SS Vancomycin resistance Brian + vanB genes Molgen Ql (Islt/Spec) Not Applicable *NA* (07/01/22 12:00 PM) Invalid Interpretation Code Not Detected AH Auto Microbiology GL SS LABORATORYOrdered By: Myke Brand on 07-01-2022 Monocyte distribution width Auto (Bld) [Entitic vol] 25.37 Invalid Interpretation Code 0.00 - 20.00 AO Workflow SS Comment on above: Result Comment: For adults in ED, MDW>20.0 may be associated with a higher risk of sepsis during the first 12hrs of hospital admission No Panel Informationon 07-01 GSAER Gram Positive Cocci in clusters [facility] Microscopic examination of blood, culture Staphylococcus coagulase negative Isolated from aerobe bottle only. Staphylococcus coagulase negative #2 Isolated from aerobe bottle only. 1 of 2 sets positive Organism is a potential contaminant. Clinical Significance undetermined. Please contact Microbiology if further work-up is required. [facility] Microscopic examination of blood, culture Blood Culture: No Growth at 5 days. [facility] Basophil percentageon 2021 Chloride [Moles/Vol] 98 mmol/L 98-[address] [facility] Work Phone: Glucose [Mass/Vol] 238 mg/dL 74-106 [facility] Work Phone: Comment on above: Glucose result great er than or equal to 200 mg/dLsuggests DIABETES MELLITUS per A.D.A. criteria. Potassium [Moles/Vol] 4.5 mmol/L 3.5-5.1 [facility] Work Phone: Sodium [Moles/Vol] 135 mmol/L 136-145 [facility] Work Phone: Laboratory - Chemistry and C hemistry - challengeon 02-11-2022 CO2 [Moles/Vol] 25.0 mmol/L 21.0-32.0 [facility] Work Phone: Urea nitrogen/Creatinine [Mass ratio] 18.7 mg/mg 02-04 [facility] Work Phone: No Panel Informationon 02-11 Estimated GFR (MDRD) Amer 49 mL/min >60 [facility] Work Phone: Comment on above: GFR Calc Estimated GFR (MDRD) Non-Af Amer 40 mL/min >60 [facility] Work Phone: Comment on above: Non- GFR Calc Vitamin D 25-Hydroxy 34.7 ng/mL [facility] Work Phone: Comment on above: Vitamin D 25(OH) Sta tus Range Deficiency <20 ng/mL (50nmol/L) Insufficiency 20 - 30 ng/mL (50 - 75 nmol/L) Sufficiency 30 - 100 ng/mL (75 - 250 nmol/L) Toxicity >100 ng/mL (>250 nmol/L) Serum or plasma calcium jesus urement (mass/volume)on 02-11-2022 Calcium [Mass/Vol] 10.0 mg/dL 8.5-10.1 [facility] Work Phone: Serum or plasma creatinine m easurement (mass/volume)on 02-11-2022 Creatinine [Mass/Vol] 1.39 mg/dL 0.55-1.02 [facility] Work Phone: Comment on above: The validity of the calculated GFR & GFRAA in patients over 70 years has not been determined. Clinical correlation is essential. Serum or plasma urea nitroge n measurement (mass/volume)on 02-11-2022 Urea nitrogen [Mass/Vol] 26 mg/dL 7-18 [facility] Work Phone: Thin prep Papanicolaou smear with manual screeningon 02-11-2022 Thin prep Papanicolaou smear with manual screening 12 5-15 [facility] Work Phone: Glucose Glucometer (BldC) [M ass/Vol]on 12-10-2021 Glucose [Mass/Vol] 180 mg/dL 74-106 [facility] Work Phone: Comment on above: MANAGEMENT OF PATIEN T CARE PER NURSING PROTOCOL LABORATORYOrdered By: Sherrie Dave on 10-21-2021 Basophil, Absolute 0.0 103/mcL Invalid Interpretation Code 0.0 - 0.2 10^3/mcL AO Workflow SS Basophils/100 WBC (Bld) 0.3 % Invalid Interpretation Code 0.0 - 2.5 % AO Workflow SS Eosinophil, Absolute 0.2 103/mcL Invalid Interpretation Code 0.0 - 0.4 10^3/mcL AO Workflow SS Eosinophils/100 WBC (Bld) 2.8 % Invalid Interpretation Code 0.0 - 7.0 % AO Workflow SS Erythrocyte distribution width (RBC) [Ratio] 15.4 % Invalid Interpretation Code 11.5 - 14.5 % AO Workflow SS Hematocrit (Bld) [Volume fraction] 36.2 % Invalid Interpretation Code 37.0 - 47.0 % AO Workflow SS Hemoglobin (Bld) [Mass/Vol] 12.1 G/dL Invalid Interpretation Code 12.0 - 16.0 G/dL AO Workflow SS Lymphocyte, Absolute 2.2 103/mcL Invalid Interpretation Code 0.8 - 3.9 10^3/mcL AO Workflow SS Lymphocytes/100 WBC (Bld) 24.1 % Invalid Interpretation Code 10.0 - 50.0 % AO Workflow SS MCH (RBC) [Entitic mass] 28.6 pg Invalid Interpretation Code 27.0 - 31.2 pg AO Workflow SS MCHC 33.4 G/dL Invalid Interpretation Code 33.0 - 37.0 G/dL AO Workflow SS MCV (RBC) [Entitic vol] 85.7 fL Invalid Interpretation Code 80.0 - 94.0 fL AO Workflow SS Monocyte, Absolute 0.5 103/mcL Invalid Interpretation Code 0.2 - 1.0 10^3/mcL AO Workflow SS Monocytes/100 WBC (Bld) 5.9 % Invalid Interpretation Code 1.7 - 13.0 % AO Workflow SS Neutrophil, Absolute 6.0 103/mcL Invalid Interpretation Code 2.9 - 6.2 10^3/mcL AO Workflow SS Neutrophils/100 WBC (Bld) 66.9 % Invalid Interpretation Code 37.0 - 80.0 % AO Workflow SS Platelet mean volume (Bld) [Entitic vol] 7.8 fL Invalid Interpretation Code 7.4 - 10.4 fL AO Workflow SS Platelets (Bld) [#/Vol] 175 103/mcL Invalid Interpretation Code 130 - 400 10^3/mcL AO Workflow SS RBC (Bld) [#/Vol] 4.22 106/mcL Invalid Interpretation Code 4.20 - 5.40 10^6/mcL AO Workflow SS WBC 9.0 103/mcL Invalid Interpretation Code 4.6 - 10.8 10^3/mcL AO Workflow SS LABORATORYOrdered By: SYSTEM SYSTEM on 10-21-2021 Monocyte distribution width Auto (Bld) [Entitic vol] Not Performed 1 *NA* (10/21/21 3:52 PM) Invalid Interpretation Code 0.00 - 20.00 AO Hematology S Comment on above: Result Comment: MDW testing performed only on adult ER patients between the ages of 18-89 years. Glucose Glucometer (BldC) [M ass/Vol]on 10-08-2021 Glucose [Mass/Vol] 169 mg/dL 74-106 [facility] Work Phone: Comment on above: MANAGEMENT OF PATIEN T CARE PER NURSING PROTOCOL LABORATORYOrdered By: Stefany Odonnell on 07-21-2021 Basophil, Absolute 0.10 103/mcL Invalid Interpretation Code 0.00 - 0.19 10^3/mcL AO Auto Heme SS Basophils/100 WBC (Bld) 0.7 % Invalid Interpretation Code 0.0 - 2.5 % AO Auto Heme SS Calcium [Mass/Vol] 9.7 mg/dL Invalid Interpretation Code 8.4 - 10.2 mg/dL AO ADM SS Chloride [Moles/Vol] 98 mmol/L Invalid Interpretation Code 98 - 107 mmol/L AO ADM SS CO2 [Moles/Vol] 30 mmol/L Invalid Interpretation Code 23 - 31 mmol/L AO ADM SS Creatinine [Mass/Vol] 1.11 mg/dL Invalid Interpretation Code 0.55 - 1.02 mg/dL AO ADM SS Electrolyte Balance 9.0 mEq/L Invalid Interpretation Code 4.0 - 15.0 mEq/L AO ADM SS Eosinophil, Absolute 0.20 103/mcL Invalid Interpretation Code 0.00 - 0.40 10^3/mcL AO Auto Heme SS Eosinophils/100 WBC (Bld) 2.0 % Invalid Interpretation Code 0.0 - 7.0 % AO Auto Heme SS Erythrocyte distribution width (RBC) [Ratio] 14.3 % Invalid Interpretation Code 11.5 - 14.5 % AO Auto Heme SS Fibrin D-dimer DDU (PPP) [Mass/Vol] ng/mL D-DU Invalid Interpretation Code 0 - 230 ng/mL D-DU AO Coag SS Glucose [Mass/Vol] 144 mg/dL Invalid Interpretation Code 80 - 115 mg/dL AO ADM SS Hematocrit (Bld) [Volume fraction] 35.7 % Invalid Interpretation Code 37.0 - 47.0 % AO Auto Heme SS Hemoglobin (Bld) [Mass/Vol] 12.2 G/dL Invalid Interpretation Code 12.0 - 16.0 G/dL AO Auto Heme SS Lymphocyte, Absolute 2.30 103/mcL Invalid Interpretation Code 0.77 - 3.85 10^3/mcL AO Auto Heme SS Lymphocytes/100 WBC (Bld) 28.5 % Invalid Interpretation Code 10.0 - 50.0 % AO Auto Heme SS MCH (RBC) [Entitic mass] 28.7 pg Invalid Interpretation Code 27.0 - 31.2 pg AO Auto Heme SS MCHC (RBC) [Mass/Vol] 34.2 G/dL Invalid Interpretation Code 33.0 - 37.0 G/dL AO Auto Heme SS MCV (RBC) [Entitic vol] 84.0 fL Invalid Interpretation Code 80.0 - 94.0 fL AO Auto Heme SS Monocyte, Absolute 0.70 103/mcL Invalid Interpretation Code 0.15 - 1.00 10^3/mcL AO Auto Heme SS Monocytes/100 WBC (Bld) 8.8 % Invalid Interpretation Code 1.7 - 13.0 % AO Auto Heme SS Natriuretic peptide.B prohormone N-Terminal [Mass/Vol] 109 pg/mL Invalid Interpretation Code 0 - 125 pg/mL AO ADM SS Neutrophil, Absolute 4.80 103/mcL Invalid Interpretation Code 2.85 - 6.16 10^3/mcL AO Auto Heme SS Neutrophils/100 WBC (Bld) 60.0 % Invalid Interpretation Code 37.0 - 80.0 % AO Auto Heme SS Platelet mean volume (Bld) [Entitic vol] 7.5 fL Invalid Interpretation Code 7.4 - 10.4 fL AO Auto Heme SS Platelets (Bld) [#/Vol] 182 103/mcL Invalid Interpretation Code 130 - 400 10^3/mcL AO Auto Heme SS Potassium [Moles/Vol] 4.3 mmol/L Invalid Interpretation Code 3.5 - 5.1 mmol/L AO ADM SS RBC (Bld) [#/Vol] 4.25 106/mcL Invalid Interpretation Code 4.20 - 5.40 10^6/mcL AO Auto Heme SS Sodium [Moles/Vol] 137 mmol/L Invalid Interpretation Code 136 - 145 mmol/L AO ADM SS Troponin I.cardiac DL <= 0.01 ng/mL [Mass/Vol] 9.0 ng/L Invalid Interpretation Code 0.0 - 51.4 ng/L AO ADM SS Urea nitrogen [Mass/Vol] 31 mg/dL Invalid Interpretation Code 7 - 18 mg/dL AO ADM SS Urea nitrogen/Creatinine [Mass ratio] 28 ratio Invalid Interpretation Code 7 - 27 ratio AO ADM SS WBC (Bld) [#/Vol] 8.00 103/mcL Invalid Interpretation Code 4.60 - 10.80 10^3/mcL AO Auto Heme SS LABORATORYOrdered By: SYSTEM SYSTEM on 07-21-2021 GFR 60 ml/min/1.73sqm Invalid Interpretation Code AO Chemistry S GFR Non- 49 ml/min/1.73sqm Invalid Interpretation Code AO Chemistry S LABORATORYOrdered By: Jose Garrett on 04-29-2021 Basophil, Absolute 0.10 103/mcL Invalid Interpretation Code 0.00 - 0.19 10^3/mcL AO Auto Heme SS Basophils/100 WBC (Bld) 1.2 % Invalid Interpretation Code 0.0 - 2.5 % AO Auto Heme SS Eosinophil, Absolute 0.10 103/mcL Invalid Interpretation Code 0.00 - 0.40 10^3/mcL AO Auto Heme SS Eosinophils/100 WBC (Bld) 0.8 % Invalid Interpretation Code 0.0 - 7.0 % AO Auto Heme SS Erythrocyte distribution width (RBC) [Ratio] 14.4 % Invalid Interpretation Code 11.5 - 14.5 % AO Auto Heme SS Hematocrit (Bld) [Volume fraction] 39.1 % Invalid Interpretation Code 37.0 - 47.0 % AO Auto Heme SS Hemoglobin (Bld) [Mass/Vol] 13.3 G/dL Invalid Interpretation Code 12.0 - 16.0 G/dL AO Auto Heme SS Lymphocyte, Absolute 1.20 103/mcL Invalid Interpretation Code 0.77 - 3.85 10^3/mcL AO Auto Heme SS Lymphocytes/100 WBC (Bld) 17.4 % Invalid Interpretation Code 10.0 - 50.0 % AO Auto Heme SS MCH (RBC) [Entitic mass] 29.1 pg Invalid Interpretation Code 27.0 - 31.2 pg AO Auto Heme SS MCHC (RBC) [Mass/Vol] 34.0 G/dL Invalid Interpretation Code 33.0 - 37.0 G/dL AO Auto Heme SS MCV (RBC) [Entitic vol] 85.4 fL Invalid Interpretation Code 80.0 - 94.0 fL AO Auto Heme SS Monocyte, Absolute 0.30 103/mcL Invalid Interpretation Code 0.15 - 1.00 10^3/mcL AO Auto Heme SS Monocytes/100 WBC (Bld) 4.8 % Invalid Interpretation Code 1.7 - 13.0 % AO Auto Heme SS Neutrophil, Absolute 5.40 103/mcL Invalid Interpretation Code 2.85 - 6.16 10^3/mcL AO Auto Heme SS Neutrophils/100 WBC (Bld) 75.8 % Invalid Interpretation Code 37.0 - 80.0 % AO Auto Heme SS Platelet mean volume (Bld) [Entitic vol] 7.8 fL Invalid Interpretation Code 7.4 - 10.4 fL AO Auto Heme SS Platelets (Bld) [#/Vol] 185 103/mcL Invalid Interpretation Code 130 - 400 10^3/mcL AO Auto Heme SS RBC (Bld) [#/Vol] 4.57 106/mcL Invalid Interpretation Code 4.20 - 5.40 10^6/mcL AO Auto Heme SS WBC (Bld) [#/Vol] 7.20 103/mcL Invalid Interpretation Code 4.60 - 10.80 10^3/mcL AO Auto Heme SS LABORATORYOrdered By: Sherrie Dave on 04-29-2021 Calcium [Mass/Vol] 9.4 mg/dL Invalid Interpretation Code 8.4 - 10.2 mg/dL AO ADM SS Chloride [Moles/Vol] 102 mmol/L Invalid Interpretation Code 98 - 107 mmol/L AO ADM SS CO2 [Moles/Vol] 25 mmol/L Invalid Interpretation Code 23 - 31 mmol/L AO ADM SS Creatinine [Mass/Vol] 0.94 mg/dL Invalid Interpretation Code 0.55 - 1.02 mg/dL AO ADM SS Electrolyte Balance 13.0 mEq/L Invalid Interpretation Code AO ADM SS Glucose [Mass/Vol] 268 mg/dL Invalid Interpretation Code 80 - 115 mg/dL AO ADM SS Potassium [Moles/Vol] 4.2 mmol/L Invalid Interpretation Code 3.5 - 5.1 mmol/L AO ADM SS Sodium [Moles/Vol] 140 mmol/L Invalid Interpretation Code 136 - 145 mmol/L AO ADM SS Troponin I.cardiac DL <= 0.01 ng/mL [Mass/Vol] 16.4 ng/L Invalid Interpretation Code 0.0 - 51.4 ng/L AO ADM SS Urea nitrogen [Mass/Vol] 20 mg/dL Invalid Interpretation Code 7 - 18 mg/dL AO ADM SS Urea nitrogen/Creatinine [Mass ratio] 21 ratio Invalid Interpretation Code 7 - 27 ratio AO ADM SS LABORATORYOrdered By: [employer] on 04-29-2021 GFR 72 ml/min/1.73sqm Invalid Interpretation Code AO Chemistry S GFR Non- 60 ml/min/1.73sqm Invalid Interpretation Code AO Chemistry S LABORATORYOrdered By: Darlene Mckeon on 02-24-2021 Blood Glucose Testing Reason Routine (02/24/21 11:18 AM) [facility] Glucose [Mass/Vol] 189 mg/dL Invalid Interpretation Code 82 - 115 mg/dL [facility] Blood Glucose Testing Reason Routine (02/24/21 7:23 AM) [facility] Glucose [Mass/Vol] 180 mg/dL Invalid Interpretation Code 82 - 115 mg/dL [facility] LABORATORYOrdered By: Andreas Mata on 02-23-2021 Blood Glucose Testing Reason Routine (02/23/21 9:08 PM) [facility] Glucose [Mass/Vol] 119 mg/dL Invalid Interpretation Code 82 - 115 mg/dL [facility] LABORATORYOrdered By: [employer] on 02-22-2021 Albumin [Mass/Vol] 2.5 G/dL Invalid Interpretation Code 3.2 - 4.8 G/dL AH ADM SS Albumin/Globulin [Mass ratio] 0.6 {ratio} Invalid Interpretation Code 0.9 - 1.6 ratio AH ADM SS ALP [Catalytic activity/Vol] 70 U/L Invalid Interpretation Code 38 - 126 U/L AH ADM SS ALT [Catalytic activity/Vol] 48 U/L Invalid Interpretation Code 10 - 49 U/L AH ADM SS AST [Catalytic activity/Vol] 35 U/L Invalid Interpretation Code 8 - 34 U/L AH ADM SS Base excess Calc (BldMV) [Moles/Vol] 3.0 mEq/L Invalid Interpretation Code 4.0 - 15.0 mEq/L AH ADM SS Basophils (Bld) [#/Vol] 0.10 103/mcL Invalid Interpretation Code 0.00 - 0.27 10^3/mcL AH Remisol SS Basophils/100 WBC (Bld) 0.8 % Invalid Interpretation Code 0.0 - 2.5 % AH Remisol SS Bilirubin [Mass/Vol] 0.3 mg/dL Invalid Interpretation Code 0.2 - 1.2 mg/dL AH ADM SS Calcium [Mass/Vol] 9.5 mg/dL Invalid Interpretation Code 8.4 - 10.1 mg/dL AH ADM SS Chloride [Moles/Vol] 106 mmol/L Invalid Interpretation Code 98 - 110 mEq/L AH ADM SS CO2 [Moles/Vol] 29 mmol/L Invalid Interpretation Code 22 - 32 mEq/L AH ADM SS Creatinine [Mass/Vol] 1.01 mg/dL Invalid Interpretation Code 0.50 - 1.20 mg/dL AH ADM SS Eosinophils (Bld) [#/Vol] 0.70 103/mcL Invalid Interpretation Code 0.00 - 0.65 10^3/mcL AH Remisol SS Eosinophils/100 WBC (Bld) 8.1 % Invalid Interpretation Code 0.0 - 6.0 % AH Remisol SS Erythrocyte distribution width (RBC) [Ratio] 14.6 % Invalid Interpretation Code 11.5 - 15.5 % AH Remisol SS GFR/1.73 sq M.predicted among blacks MDRD (S/P/Bld) [Vol rate/Area] ml/min/1.73sqm Invalid Interpretation Code AH ADM SS GFR/1.73 sq M.predicted among non-blacks MDRD (S/P/Bld) [Vol rate/Area] 55 ml/min/1.73sqm Invalid Interpretation Code AH ADM SS Globulin (S) [Mass/Vol] 4.3 G/dL Invalid Interpretation Code 1.5 - 3.8 G/dL AH ADM SS Glucose [Mass/Vol] 134 mg/dL Invalid Interpretation Code 82 - 115 mg/dL AH ADM SS Hematocrit (Bld) [Volume fraction] 32.3 % Invalid Interpretation Code 34.0 - 46.0 % AH Remisol SS Hemoglobin (Bld) [Mass/Vol] 10.9 G/dL Invalid Interpretation Code 12.0 - 16.0 G/dL AH Remisol SS Lymphocytes (Bld) [#/Vol] 2.40 103/mcL Invalid Interpretation Code 0.90 - 4.32 10^3/mcL AH Remisol SS Lymphocytes/100 WBC (Bld) 28.5 % Invalid Interpretation Code 20.0 - 40.0 % AH Remisol SS MCH (RBC) [Entitic mass] 29.4 pg Invalid Interpretation Code 27.0 - 33.0 pg AH Remisol SS MCHC (RBC) [Mass/Vol] 33.7 G/dL Invalid Interpretation Code 32.0 - 36.0 G/dL AH Remisol SS MCV (RBC) [Entitic vol] 87.2 fL Invalid Interpretation Code 80.0 - 99.0 fL AH Remisol SS Monocytes (Bld) [#/Vol] 0.70 103/mcL Invalid Interpretation Code 0.09 - 1.40 10^3/mcL AH Remisol SS Monocytes/100 WBC (Bld) 7.7 % Invalid Interpretation Code 2.0 - 13.0 % AH Remisol SS Neutrophils (Bld) [#/Vol] 4.70 103/mcL Invalid Interpretation Code 2.25 - 8.10 10^3/mcL AH Remisol SS Neutrophils/100 WBC (Bld) 54.9 % Invalid Interpretation Code 50.0 - 75.0 % AH Remisol SS Platelet mean volume (Bld) [Entitic vol] 7.9 fL Invalid Interpretation Code 6.6 - 10.5 fL AH Remisol SS Platelets (Bld) [#/Vol] 146 103/mcL Invalid Interpretation Code 150 - 450 10^3/mcL AH Remisol SS Potassium [Moles/Vol] 5.4 mmol/L Invalid Interpretation Code 3.5 - 5.0 mEq/L AH ADM SS Protein [Mass/Vol] 6.8 G/dL Invalid Interpretation Code 6.0 - 8.5 G/dL AH ADM SS RBC (Bld) [#/Vol] 3.70 106/mcL Invalid Interpretation Code 4.10 - 5.30 10^6/mcL AH Remisol SS Sodium [Moles/Vol] 138 mmol/L Invalid Interpretation Code 136 - 145 mEq/L AH ADM SS Urea nitrogen [Mass/Vol] 34.0 mg/dL Invalid Interpretation Code 8.0 - 22.0 mg/dL AH ADM SS Urea nitrogen/Creatinine [Mass ratio] 33.7 ratio Invalid Interpretation Code 10.0 - 22.0 ratio AH ADM SS WBC (Bld) [#/Vol] 8.50 103/mcL Invalid Interpretation Code 4.50 - 10.80 10^3/mcL Remisol SS LABORATORYOrdered By: Bairon Dubose on 02-20-2021 Cholesterol [Mass/Vol] 126 mg/dL Invalid Interpretation Code 50 - 199 mg/dL ADM SS Cholesterol in HDL [Mass/Vol] 36 mg/dL Invalid Interpretation Code 40 - 59 mg/dL ADM SS Cholesterol in LDL [Mass/Vol] 45 mg/dL Invalid Interpretation Code 0 - 129 mg/dL ADM SS Triglyceride [Mass/Vol] 226 mg/dL Invalid Interpretation Code 3 - 149 mg/dL ADM SS LABORATORYOrdered By: SYSTEM SYSTEM on 02-20-2021 HbA1c (Bld) [Mass fraction] 8.4 % Invalid Interpretation Code 4.0 - 6.0 % Auto Chem SS TSH Qn 0.927 mIU/mL Invalid Interpretation Code 0.550 - 4.780 mIU/mL AH ADM SS LABORATORYOrdered By: [employer] on 02-19-2021 Base excess Calc (BldMV) [Moles/Vol] 6.0 mEq/L Invalid Interpretation Code 4.0 - 15.0 mEq/L AH ADM SS Basophils (Bld) [#/Vol] 0.00 103/mcL Invalid Interpretation Code 0.00 - 0.27 10^3/mcL Remisol SS Basophils/100 WBC (Bld) 0.4 % Invalid Interpretation Code 0.0 - 2.5 % AH Remisol SS Calcium [Mass/Vol] 8.9 mg/dL Invalid Interpretation Code 8.4 - 10.1 mg/dL AH ADM SS Chloride [Moles/Vol] 107 mmol/L Invalid Interpretation Code 98 - 110 mEq/L ADM SS CO2 [Moles/Vol] 24 mmol/L Invalid Interpretation Code 22 - 32 mEq/L ADM SS Creatinine [Mass/Vol] 1.16 mg/dL Invalid Interpretation Code 0.50 - 1.20 mg/dL AH ADM SS Eosinophils (Bld) [#/Vol] 0.00 103/mcL Invalid Interpretation Code 0.00 - 0.65 10^3/mcL AH Remisol SS Eosinophils/100 WBC (Bld) 0.2 % Invalid Interpretation Code 0.0 - 6.0 % AH Remisol SS Erythrocyte distribution width (RBC) [Ratio] 14.9 % Invalid Interpretation Code 11.5 - 15.5 % AH Remisol SS GFR/1.73 sq M.predicted among blacks MDRD (S/P/Bld) [Vol rate/Area] 57 ml/min/1.73sqm Invalid Interpretation Code AH ADM SS GFR/1.73 sq M.predicted among non-blacks MDRD (S/P/Bld) [Vol rate/Area] 47 ml/min/1.73sqm Invalid Interpretation Code AH ADM SS Glucose [Mass/Vol] 194 mg/dL Invalid Interpretation Code 82 - 115 mg/dL AH ADM SS Hematocrit (Bld) [Volume fraction] 34.5 % Invalid Interpretation Code 34.0 - 46.0 % AH Remisol SS Hemoglobin (Bld) [Mass/Vol] 11.4 G/dL Invalid Interpretation Code 12.0 - 16.0 G/dL AH Remisol SS Lymphocytes (Bld) [#/Vol] 1.90 103/mcL Invalid Interpretation Code 0.90 - 4.32 10^3/mcL AH Remisol SS Lymphocytes/100 WBC (Bld) 15.5 % Invalid Interpretation Code 20.0 - 40.0 % AH Remisol SS MCH (RBC) [Entitic mass] 29.0 pg Invalid Interpretation Code 27.0 - 33.0 pg AH Remisol SS MCHC (RBC) [Mass/Vol] 33.0 G/dL Invalid Interpretation Code 32.0 - 36.0 G/dL AH Remisol SS MCV (RBC) [Entitic vol] 87.8 fL Invalid Interpretation Code 80.0 - 99.0 fL AH Remisol SS Monocytes (Bld) [#/Vol] 1.00 103/mcL Invalid Interpretation Code 0.09 - 1.40 10^3/mcL AH Remisol SS Monocytes/100 WBC (Bld) 8.2 % Invalid Interpretation Code 2.0 - 13.0 % AH Remisol SS Neutrophils (Bld) [#/Vol] 9.20 103/mcL Invalid Interpretation Code 2.25 - 8.10 10^3/mcL AH Remisol SS Neutrophils/100 WBC (Bld) 75.7 % Invalid Interpretation Code 50.0 - 75.0 % AH Remisol SS Platelet mean volume (Bld) [Entitic vol] 8.0 fL Invalid Interpretation Code 6.6 - 10.5 fL AH Remisol SS Platelets (Bld) [#/Vol] 168 103/mcL Invalid Interpretation Code 150 - 450 10^3/mcL AH Remisol SS Potassium [Moles/Vol] 5.0 mmol/L Invalid Interpretation Code 3.5 - 5.0 mEq/L AH ADM SS RBC (Bld) [#/Vol] 3.93 106/mcL Invalid Interpretation Code 4.10 - 5.30 10^6/mcL AH Remisol SS Sodium [Moles/Vol] 137 mmol/L Invalid Interpretation Code 136 - 145 mEq/L AH ADM SS Urea nitrogen [Mass/Vol] 45.0 mg/dL Invalid Interpretation Code 8.0 - 22.0 mg/dL AH ADM SS Urea nitrogen/Creatinine [Mass ratio] 38.8 ratio Invalid Interpretation Code 10.0 - 22.0 ratio AH ADM SS WBC (Bld) [#/Vol] 12.10 103/mcL Invalid Interpretation Code 4.50 - 10.80 10^3/mcL AH Remisol SS LABORATORYOrdered By: Rosetta Maddox on 02-18-2021 Glucose [Mass/Vol] 277 mg/dL Invalid Interpretation Code 82 - 115 mg/dL AH ADM SS Hematocrit (Bld) [Volume fraction] 36.0 % Invalid Interpretation Code 34.0 - 46.0 % Hematology S Hemoglobin (Bld) [Mass/Vol] 12.2 G/dL Invalid Interpretation Code 12.0 - 16.0 G/dL Hematology S LABORATORYOrdered By: Deepthi Johnson on 02-18-2021 ABO and Rh group Nom (Bld) Blood group A Rh(D) positive Invalid Interpretation Code BB Auto SS Blood group antibody screen Ql NEG (02/18/21 6:31 AM) Invalid Interpretation Code AH BB Auto SS LABORATORYOrdered By: Ya Reynaga on 02-18-2021 aPTT Coag (PPP) [Time] 28.9 s Invalid Interpretation Code 25.0 - 35.0 seconds AH Auto Coag SS Fibrinogen Coag (PPP) [Mass/Vol] 460 mg/dL Invalid Interpretation Code 250 - 550 mg/dL AH Auto Coag SS Heparin dose (APTT) Unknown (02/18/21 6:31 AM) Invalid Interpretation Code AH Auto Coag SS INR Coag (PPP) [Relative time] 1.0 {INR} Invalid Interpretation Code AH Auto Coag SS PT Coag (PPP) [Time] 12.0 s Invalid Interpretation Code 9.0 - 14.8 seconds AH Auto Coag SS LABORATORYOrdered By: [employer] on 02-18-2021 Platelets (Bld) [#/Vol] 172 103/mcL Invalid Interpretation Code 150 - 450 10^3/mcL AH Remisol SS Potassium [Moles/Vol] 4.6 mmol/L Invalid Interpretation Code 3.5 - 5.0 mEq/L AH ADM SS LABORATORYOrdered By: Andreas Haider on 02-02-2021 ABO and Rh group Nom (Bld) Blood group A Rh(D) positive Invalid Interpretation Code AH BB Auto SS Blood group antibody screen Ql NEG (02/02/21 1:00 PM) Invalid Interpretation Code AH BB Auto SS LABORATORYOrdered By: [employer] on 02-02-2021 Albumin BCP dye [Mass/Vol] 3.3 G/dL Invalid Interpretation Code 3.2 - 4.8 G/dL AH ADM SS Albumin/Globulin [Mass ratio] 0.8 {ratio} Invalid Interpretation Code 0.9 - 1.6 ratio AH ADM SS ALP [Catalytic activity/Vol] 94 U/L Invalid Interpretation Code 38 - 126 U/L AH ADM SS ALT No additional P-5'-P [Catalytic activity/Vol] 80 U/L Invalid Interpretation Code 10 - 49 U/L AH ADM SS AST [Catalytic activity/Vol] 113 U/L Invalid Interpretation Code 8 - 34 U/L AH ADM SS Basophils (Bld) [#/Vol] 0.00 103/mcL Invalid Interpretation Code 0.00 - 0.27 10^3/mcL AH Remisol SS Basophils/100 WBC (Bld) 0.3 % Invalid Interpretation Code 0.0 - 2.5 % AH Remisol SS Bilirubin [Mass/Vol] 0.40 mg/dL Invalid Interpretation Code 0.20 - 1.20 mg/dL AH ADM SS Calcium [Mass/Vol] 10.5 mg/dL Invalid Interpretation Code 8.7 - 10.4 mg/dL AH ADM SS Chloride [Moles/Vol] 102 mmol/L Invalid Interpretation Code 98 - 110 mEq/L AH ADM SS CO2 [Moles/Vol] 30 mmol/L Invalid Interpretation Code 22 - 32 mEq/L AH ADM SS Creatinine [Mass/Vol] 1.39 mg/dL Invalid Interpretation Code 0.50 - 1.20 mg/dL AH ADM SS Electrolyte Balance 4.0 mEq/L Invalid Interpretation Code 4.0 - 15.0 mEq/L AH ADM SS Eosinophils (Bld) [#/Vol] 0.40 103/mcL Invalid Interpretation Code 0.00 - 0.65 10^3/mcL AH Remisol SS Eosinophils/100 WBC (Bld) 4.8 % Invalid Interpretation Code 0.0 - 6.0 % AH Remisol SS Erythrocyte distribution width (RBC) [Ratio] 14.5 % Invalid Interpretation Code 11.5 - 15.5 % AH Remisol SS GFR/1.73 sq M.predicted among blacks MDRD (S/P/Bld) [Vol rate/Area] 46 ml/min/1.73sqm Invalid Interpretation Code Chemistry S GFR/1.73 sq M.predicted among non-blacks MDRD (S/P/Bld) [Vol rate/Area] 38 ml/min/1.73sqm Invalid Interpretation Code Chemistry S Globulin 4.2 G/dL Invalid Interpretation Code 1.5 - 3.8 G/dL ADM SS Glucose [Mass/Vol] 154 mg/dL Invalid Interpretation Code 82 - 115 mg/dL AH ADM SS Hematocrit (Bld) [Volume fraction] 39.3 % Invalid Interpretation Code 34.0 - 46.0 % AH Remisol SS Hemoglobin (Bld) [Mass/Vol] 13.5 G/dL Invalid Interpretation Code 12.0 - 16.0 G/dL AH Remisol SS Lymphocytes (Bld) [#/Vol] 2.10 103/mcL Invalid Interpretation Code 0.90 - 4.32 10^3/mcL AH Remisol SS Lymphocytes/100 WBC (Bld) 28.5 % Invalid Interpretation Code 20.0 - 40.0 % AH Remisol SS MCH (RBC) [Entitic mass] 29.7 pg Invalid Interpretation Code 27.0 - 33.0 pg AH Remisol SS MCHC (RBC) [Mass/Vol] 34.5 G/dL Invalid Interpretation Code 32.0 - 36.0 G/dL AH Remisol SS MCV (RBC) [Entitic vol] 86.3 fL Invalid Interpretation Code 80.0 - 99.0 fL AH Remisol SS Monocytes (Bld) [#/Vol] 0.60 103/mcL Invalid Interpretation Code 0.09 - 1.40 10^3/mcL AH Remisol SS Monocytes/100 WBC (Bld) 7.9 % Invalid Interpretation Code 2.0 - 13.0 % AH Remisol SS Neutrophils (Bld) [#/Vol] 4.30 103/mcL Invalid Interpretation Code 2.25 - 8.10 10^3/mcL AH Remisol SS Neutrophils/100 WBC (Bld) 58.5 % Invalid Interpretation Code 50.0 - 75.0 % AH Remisol SS Platelet mean volume (Bld) [Entitic vol] 8.5 fL Invalid Interpretation Code 6.6 - 10.5 fL AH Remisol SS Platelets (Bld) [#/Vol] 219 103/mcL Invalid Interpretation Code 150 - 450 10^3/mcL AH Remisol SS Potassium [Moles/Vol] 4.5 mmol/L Invalid Interpretation Code 3.5 - 5.0 mEq/L AH ADM SS Protein [Mass/Vol] 7.5 G/dL Invalid Interpretation Code 5.7 - 8.2 G/dL AH ADM SS RBC (Bld) [#/Vol] 4.55 106/mcL Invalid Interpretation Code 4.10 - 5.30 10^6/mcL AH Remisol SS Sodium [Moles/Vol] 136 mmol/L Invalid Interpretation Code 136 - 145 mEq/L AH ADM SS Urea nitrogen [Mass/Vol] 42.0 mg/dL Invalid Interpretation Code 8.0 - 22.0 mg/dL AH ADM SS Urea nitrogen/Creatinine [Mass ratio] 30.2 ratio Invalid Interpretation Code 10.0 - 22.0 ratio AH ADM SS WBC (Bld) [#/Vol] 7.30 103/mcL Invalid Interpretation Code 4.50 - 10.80 10^3/mcL AH Remisol SS LABORATORYOrdered By: Gloria Yan on 02-02-2021 Appearance (U) Clear (02/02/21 12:58 PM) Invalid Interpretation Code Clear AH Auto Urine SS Bilirubin Ql (U) Negative (02/02/21 12:58 PM) Invalid Interpretation Code Neg-Trace AH Auto Urine SS Color (U) Yellow (02/02/21 12:58 PM) Invalid Interpretation Code AH Auto Urine SS Glucose Test strip (U) [Mass/Vol] Negative Invalid Interpretation Code Negativemg/d L AH Auto Urine SS Hemoglobin Auto test strip (U) [Mass/Vol] Negative (02/02/21 12:58 PM) Invalid Interpretation Code Neg-Trace AH Auto Urine SS Ketones Ql (U) Negative Invalid Interpretation Code Neg-Tracemg/ dL AH Auto Urine SS UA Leuk Est Trace *NA* (02/02/21 12:58 PM) Invalid Interpretation Code Negative AH Auto Urine SS UA Nitrite Negative (02/02/21 12:58 PM) Invalid Interpretation Code Negative AH Auto Urine SS UA pH 5.5 (02/02/21 12:58 PM) Invalid Interpretation Code 5.0 - 8.0 AH Auto Urine SS UA Protein Negative Invalid Interpretation Code Negativemg/d L AH Auto Urine SS UA Spec Grav 1.015 (02/02/21 12:58 PM) Invalid Interpretation Code 1.006-1.029 AH Auto Urine SS UA Specimen Type Clean Catch (02/02/21 12:58 PM) Invalid Interpretation Code AH Auto Urine SS UA Urobilinogen 0.2 E.U./dL Invalid Interpretation Code 0.2-1.0E.U./ dL AH Auto Urine SS LABORATORYOrdered By: [employer] on 02-02-2021 aPTT Coag (PPP) [Time] 30.5 s Invalid Interpretation Code 25.0 - 35.0 seconds AH Auto Coag SS Fibrinogen Coag (PPP) [Mass/Vol] 459 mg/dL Invalid Interpretation Code 250 - 550 mg/dL AH Auto Coag SS Heparin dose (APTT) None Invalid Interpretation Code AH Auto Coag SS INR Coag (PPP) [Relative time] 1.0 {INR} Invalid Interpretation Code AH Auto Coag SS PT Coag (PPP) [Time] 12.4 s Invalid Interpretation Code 9.0 - 14.8 seconds AH Auto Coag SS Vital Signs Date Time Vital Sign Value Performing Clinician Facility 04-16-2024 09:27-0500 Body height 175.[address] JULIO NICHOLAS DO [facility] 04-16-2024 09:27-0500 Body temperature 97.16 [degF] DR JULIO NICHOLAS DO [facility] 04-16-2024 09:27-0500 Body weight [address] JULIO NICHOLAS DO [facility] 04-16-2024 09:27-0500 Diastolic Blood Pressure Non-Invasive 60 mm[Hg] DR JULIO NICHOLAS DO [facility] 04-16-2024 09:27-0500 Heart rate 67 /min DR JULIO NICHOLAS DO [facility] 04-16-2024 09:27-0500 Respiratory rate 20 /min DR JULIO NICHOLAS DO [facility] 04-16-2024 09:27-0500 Systolic Blood Pressure Non-Invasive 122 mm[Hg] DR JULIO NICHOLAS DO [facility] 02-10-2024 15:44-0400 Blood Pressure Cuff Size DR JASON AZAR MD [facility] 02-10-2024 15:44-[address] JASON AZAR MD [facility] 02-10-2024 15:44-[address] JASON Baldwin MD [facility] 02-10-2024 15:44-0400 Body temperature 97.7 [degF] DR JASON AZAR MD [facility] 02-10-2024 15:44-0400 Diastolic Blood Pressure Non-Invasive 65 mm[Hg] DR JASON AZAR MD [facility] 02-10-2024 15:44-0400 Heart rate 84 /min DR JASON AZAR MD [address] [place] [address] 02-10-2024 15:44-0400 Respiratory rate 18 /min DR JASON AZAR MD [address] [place] [address] 02-10-2024 15:44-0400 Systolic Blood Pressure Non-Invasive 118 mm[Hg] DR JASON AZAR MD [address] [place] [address] 02-10-2024 10:02-0400 Heart rate 80 /min DR JASON AZAR MD [address] [place] [address] 02-10-2024 09:56-0400 Diastolic Blood Pressure Non-Invasive 59 mm[Hg] DR JASON AZAR MD [address] [place] [address] 02-10-2024 09:56-0400 Heart rate 86 /min DR JASON AZAR MD [address] [place] [address] 02-10-2024 09:56-0400 Systolic Blood Pressure Non-Invasive 131 mm[Hg] DR JASON AZAR MD [address] [place] [address] 02-10-2024 09:55-0400 Body temperature 97.52 [degF] DR JASON AZAR MD [address] [place] [address] 02-10-2024 09:55-0400 Diastolic Blood Pressure Non-Invasive 59 mm[Hg] DR JASON AZAR MD [address] [place] [address] 02-10-2024 09:55-0400 Heart rate 86 /min DR JASON AZAR MD [address] [place] [address] 02-10-2024 09:55-0400 Respiratory rate 18 /min DR JASON AZAR MD [address] [place] [address] 02-10-2024 09:55-0400 Systolic Blood Pressure Non-Invasive 131 mm[Hg] DR JASON AZAR MD [facility] 02-10-2024 07:13-0400 Body temperature 97.7 [degF] DR JASON AZAR MD [address] [place] [address] 02-10-2024 07:13-0400 Respiratory rate 18 /min DR JASON AZAR MD [address] [place] [address] 02-09-2024 21:58-0400 Blood Pressure Cuff Size DR JASON AZAR MD [address] [place] [address] 02-09-2024 21:58-[address] JASON AZAR MD [address] 02-09-2024 21:58-[address] JASON Baldwin MD [address] 02-09-2024 14:56-0400 Blood Pressure Cuff Size DR JASON AZAR MD [address] [place] [address] 02-09-2024 14:56-[address] JASON AZAR MD [address] [place] [address] 02-09-2024 14:56-[address] JASON Baldwin MD [address] [place] [address] 02-08-2024 10:01-0400 Heart rate 76 /min DR JASON AZAR MD [address] [place] [address] 02-07-2024 13:15-0400 Reason For Taking VItal Signs DR JASON AZAR MD [address] [place] [address] 02-07-2024 08:24-0400 Heart rate 76 /min DR JASON AZAR MD [address] [place] [address] 02-07-2024 07:13-0400 Reason For Taking VItal Signs DR JASON AZAR MD [address] [place] [address] 02-06-2024 21:45-0400 Reason For Taking VItal Signs DR JASON AZAR MD [facility] 02-06-2024 13:31-0400 Heart rate 81 /min DR JASON AZAR MD [facility] 02-06-2024 13:25-0400 Heart rate 83 /min DR JASON AZAR MD [facility] 02-06-2024 13:20-0400 Heart rate 86 /min DR JASON AZAR MD [address] [place] [address] 02-02-2024 11:51-0400 Body weight 43.64 kg/m2 DR JASON AZAR MD [address] [place] [address] 02-01-2024 20:01-0400 Body height 175.[address] JASON AZAR MD [address] [place] [address] 02-01-2024 20:01-0400 Body weight 134.[address] JASON AZAR MD [facility] 02-01-2024 20:01-0400 Body weight 43.64 kg/m2 DR JASON AZAR MD [facility] 02-01-2024 18:50-0400 Body temperature 98.24 [degF] LAURA NICKT DO [facility] 02-01-2024 18:50-0400 Diastolic Blood Pressure Non-Invasive 72 mm[Hg] LAURA FROMMELT DO [facility] 02-01-2024 18:50-0400 Heart rate 74 /min [facility] 02-01-2024 18:50-0400 Respiratory rate 18 /min LAURA FROMNIYAHT DO [facility] 02-01-2024 18:50-0400 Systolic Blood Pressure Non-Invasive 105 mm[Hg] LAURA FROMMELT DO [facility] 02-01-2024 15:22-0400 Diastolic Blood Pressure Non-Invasive 62 mm[Hg] LAURA FROMMELT DO [facility] 02-01-2024 15:22-0400 Heart rate 74 /min LAURA FROMMELT DO [facility] 02-01-2024 15:22-0400 Respiratory rate 16 /min LAURA FROMMELT DO [facility] 02-01-2024 15:22-0400 Systolic Blood Pressure Non-Invasive 104 mm[Hg] LAURA FROMMELT DO [facility] 02-01-2024 11:27-0400 Body height 175 cm LAURA FROMMELT DO [facility] 02-01-2024 11:27-0400 Body temperature 97.16 [degF] LAURA FROMMELT DO [facility] 02-01-2024 11:27-0400 Body weight 134 kg LAURA FROMMELT DO [facility] 02-01-2024 11:27-0400 Diastolic Blood Pressure Non-Invasive 57 mm[Hg] LAURA FROMMELT DO [facility] 02-01-2024 11:27-0400 Heart rate 76 /min LAURA FROMMELT DO [facility] 02-01-2024 11:27-0400 Respiratory rate 16 /min LAURA FROMMELT DO [facility] 02-01-2024 11:27-0400 Systolic Blood Pressure Non-Invasive 108 mm[Hg] LAURA FROMMELT DO [facility] 01-30-2024 10:46-[address] GIFTY FORD MD [facility] 01-30-2024 10:46-[address] GIFTY FORD MD [facility] 01-30-2024 10:46-0400 Body temperature 97.88 [degF] DR GIFTY FORD MD [facility] 01-30-2024 10:46-0400 Diastolic Blood Pressure Non-Invasive 81 mm[Hg] DR GIFTY FORD MD [facility] 01-30-2024 10:46-0400 Heart rate 66 /min DR GIFTY FORD MD [facility] 01-30-2024 10:46-0400 Respiratory rate 18 /min DR GIFTY FORD MD [facility] 01-30-2024 10:46-0400 Systolic Blood Pressure Non-Invasive 129 mm[Hg] DR GIFTY FORD MD [facility] 06-23-2023 19:02-0500 Diastolic Blood Pressure Non-Invasive 55 mm[Hg] LAURA ARRIAZA DO [facility] 06-23-2023 19:02-0500 Heart rate 79 /min LAURA FROMMELT DO [facility] 06-23-2023 19:02-0500 Respiratory rate 16 /min LAURA FROMNIYAHT DO [facility] 06-23-2023 19:02-0500 Systolic Blood Pressure Non-Invasive 110 mm[Hg] LAURA NICKT [facility] 06-23-2023 17:27-0500 Diastolic Blood Pressure Non-Invasive 62 mm[Hg] LAURA FROMMELT DO [facility] 06-23-2023 17:27-0500 Heart rate 79 /min LAURA FROMMELT DO [facility] 06-23-2023 17:27-0500 Mean blood pressure 75 mm[Hg] LAURA FROMMELT DO [facility] 06-23-2023 17:27-0500 Systolic Blood Pressure Non-Invasive 112 mm[Hg] LAURA FROMMELT DO [facility] 06-23-2023 16:23-0500 Heart rate 74 /min LAURA FROMMELT DO [facility] 06-23-2023 16:23-0500 Respiratory rate 18 /min LAURA FROMMELT DO [facility] 06-23-2023 16:14-0500 Respiratory rate 20 /min LAURA FROMMELT DO [facility] 06-23-2023 15:31-0500 Body temperature 97.88 [degF] LAURA FROMMELT DO [facility] 06-23-2023 15:31-0500 Body weight 146.3 kg LAURA FROMMELT DO [facility] 06-23-2023 15:31-0500 Diastolic Blood Pressure Non-Invasive 70 mm[Hg] LAURA FROMMELT DO [facility] 06-23-2023 15:31-0500 Systolic Blood Pressure Non-Invasive 126 mm[Hg] LAURA FROMMELT DO [facility] 11-04-2022 11:35-0400 Body temperature 97.88 [degF] AGNES PERLAER SENIOR MATERIALS ANALYST-SONOGRAPHY TECHNOLOGIST [facility] 11-04-2022 11:35-0400 Diastolic Blood Pressure Non-Invasive 66 1 AGNES PERLAER SENIOR MATERIALS ANALYST-SONOGRAPHY TECHNOLOGIST [facility] 11-04-2022 11:35-0400 Heart rate 64 /min AGNES PERLAER SENIOR MATERIALS ANALYST-SONOGRAPHY TECHNOLOGIST [facility] 11-04-2022 11:35-0400 Reason For Taking VItal Signs AGNES PERLAER SENIOR MATERIALS ANALYST-SONOGRAPHY TECHNOLOGIST [facility] 11-04-2022 11:35-0400 Respiratory rate 18 /min AGNES PERLAER SENIOR MATERIALS ANALYST-SONOGRAPHY TECHNOLOGIST [facility] 11-04-2022 11:35-0400 Systolic Blood Pressure Non-Invasive 117 1 AGNES PERLAER SENIOR MATERIALS ANALYST-SONOGRAPHY TECHNOLOGIST [facility] 11-04-2022 08:41-0400 Heart rate 72 /min AGNES PERLAER SENIOR MATERIALS ANALYST-SONOGRAPHY TECHNOLOGIST [facility] 11-04-2022 08:04-0400 Body weight 140 kg AGNES PERLAER SENIOR MATERIALS ANALYST-SONOGRAPHY TECHNOLOGIST [facility] 11-04-2022 06:04-0400 Body temperature 97.52 [degF] AGNES PERLAER SENIOR MATERIALS ANALYST-SONOGRAPHY TECHNOLOGIST [facility] 11-04-2022 06:04-0400 Diastolic Blood Pressure Non-Invasive 65 1 AGNES PERLAER SENIOR MATERIALS ANALYST-SONOGRAPHY TECHNOLOGIST [facility] 11-04-2022 06:04-0400 Heart rate 78 /min AGNES PERLAER SENIOR MATERIALS ANALYST-SONOGRAPHY TECHNOLOGIST [facility] 11-04-2022 06:04-0400 Reason For Taking VItal Signs AGNES PERLAER SENIOR MATERIALS ANALYST-SONOGRAPHY TECHNOLOGIST [facility] 11-04-2022 06:04-0400 Respiratory rate 18 /min AGNES PERLAER SENIOR MATERIALS ANALYST-SONOGRAPHY TECHNOLOGIST [facility] 11-04-2022 06:04-0400 Systolic Blood Pressure Non-Invasive 148 1 AGNES PERLAER SENIOR MATERIALS ANALYST-SONOGRAPHY TECHNOLOGIST [facility] 11-04-2022 05:00-0400 Body height 175.3 cm AGNES DUNCAN SENIOR MATERIALS ANALYST-SONOGRAPHY TECHNOLOGIST [facility] 11-04-2022 05:00-0400 Body weight 138.4 kg AGNES DUNCAN SENIOR MATERIALS ANALYST-SONOGRAPHY TECHNOLOGIST [facility] 11-04-2022 05:00-0400 Body weight 45.04 kg/m2 AGNES PERLAER SENIOR MATERIALS ANALYST-SONOGRAPHY TECHNOLOGIST [facility] 11-04-2022 04:33-0400 Body temperature 98.06 [degF] AGNES PERLAER SENIOR MATERIALS ANALYST-SONOGRAPHY TECHNOLOGIST [facility] 11-04-2022 04:33-0400 Diastolic Blood Pressure Non-Invasive 84 1 AGNES PERLAER SENIOR MATERIALS ANALYST-SONOGRAPHY TECHNOLOGIST [facility] 11-04-2022 04:33-0400 Heart rate 70 /min AGNES PERLAER SENIOR MATERIALS ANALYST-SONOGRAPHY TECHNOLOGIST [facility] 11-04-2022 04:33-0400 Respiratory rate 18 /min AGNES PERLAER SENIOR MATERIALS ANALYST-SONOGRAPHY TECHNOLOGIST [facility] 11-04-2022 04:33-0400 Systolic Blood Pressure Non-Invasive 150 1 AGNES PERLAER SENIOR MATERIALS ANALYST-SONOGRAPHY TECHNOLOGIST [facility] 11-04-2022 03:36-0400 Body weight 141.1 kg AGNES KAPPER SENIOR MATERIALS ANALYST-SONOGRAPHY TECHNOLOGIST [facility] 11-03-2022 23:08-0400 Heart rate 73 /min AGNES KAPPER SENIOR MATERIALS ANALYST-SONOGRAPHY TECHNOLOGIST [facility] 11-03-2022 23:08-0400 Reason For Taking VItal Signs AGNES KAPPER SENIOR MATERIALS ANALYST-SONOGRAPHY TECHNOLOGIST [facility] 11-03-2022 19:32-0400 Heart rate 75 /min AGNES KAPPER SENIOR MATERIALS ANALYST-SONOGRAPHY TECHNOLOGIST [facility] 11-03-2022 16:21-0400 Heart rate 82 /min AGNES KAPPER SENIOR MATERIALS ANALYST-SONOGRAPHY TECHNOLOGIST [facility] 11-03-2022 11:25-0400 Heart rate 68 /min AGNES KAPPER SENIOR MATERIALS ANALYST-SONOGRAPHY TECHNOLOGIST [facility] 11-03-2022 07:05-0400 Heart rate 75 /min AGNES KAPPER SENIOR MATERIALS ANALYST-SONOGRAPHY TECHNOLOGIST [facility] 11-01-2022 20:35-0400 Blood Pressure Location AGNES KAPPER SENIOR MATERIALS ANALYST-SONOGRAPHY TECHNOLOGIST [facility] 11-01-2022 20:35-0400 Blood Pressure Method AGNES KAPPER SENIOR MATERIALS ANALYST-SONOGRAPHY TECHNOLOGIST [facility] 11-01-2022 18:40-0400 Blood Pressure Location AGNES KAPPER SENIOR MATERIALS ANALYST-SONOGRAPHY TECHNOLOGIST [facility] 11-01-2022 18:40-0400 Blood Pressure Method AGNES KAPPER SENIOR MATERIALS ANALYST-SONOGRAPHY TECHNOLOGIST [facility] 09-20-2022 14:28-0400 Blood Pressure Location EVAN BURT MD [facility] 09-20-2022 14:28-0400 Blood Pressure Method EVAN UBRT MD [address] [place] [address] 09-20-2022 14:28-0400 Body temperature 97.88 [degF] EVAN BURT MD [address] [place] [address] 09-20-2022 14:28-0400 Diastolic Blood Pressure Non-Invasive 58 1 EVAN BURT MD [address] [place] [address] 09-20-2022 14:28-0400 Heart rate 90 /min EVAN BURT MD [address] [place] [address] 09-20-2022 14:28-0400 Respiratory rate 17 /min EVAN BURT MD [address] [place] [address] 09-20-2022 14:28-0400 Systolic Blood Pressure Non-Invasive 128 1 EVAN BURT MD [address] [place] [address] 09-20-2022 10:58-0400 Blood Pressure Location EVAN BURT MD [address] [place] [address] 09-20-2022 10:58-0400 Blood Pressure Method EVAN BURT MD [address] [place] [address] 09-20-2022 10:58-0400 Body temperature 97.7 [degF] EVAN BURT MD [address] [place] [address] 09-20-2022 10:58-0400 Diastolic Blood Pressure Non-Invasive 75 1 EVAN BURT MD [address] [place] [address] 09-20-2022 10:58-0400 Heart rate 95 /min EVAN BURT MD [address] [place] [address] 09-20-2022 10:58-0400 Respiratory rate 18 /min EVAN BURT MD [address] [place] [address] 09-20-2022 10:58-0400 Systolic Blood Pressure Non-Invasive 130 1 EVAN BURT MD [address] [place] [address] 09-20-2022 08:00-0400 Diastolic Blood Pressure Non-Invasive 88 1 EVAN BURT MD [facility] 09-20-2022 08:00-0400 Heart rate 104 /min EVAN BURT MD [facility] 09-20-2022 08:00-0400 Respiratory rate 16 /min EVAN BURT MD [facility] 09-20-2022 08:00-0400 Systolic Blood Pressure Non-Invasive 105 1 VEAN BURT MD [facility] 09-20-2022 00:36-0400 Body height 175.3 cm EVAN BURT MD [address] [place] [address] 09-20-2022 00:36-0400 Body weight 160.5 kg EVAN BUTR MD [address] 09-20-2022 00:36-0400 Body weight 52.23 kg/m2 EVAN BURT MD [facility] 09-19-2022 22:21-0400 Body temperature 98.24 [degF] DR XANDER GRIFFIN MD [facility] 09-19-2022 22:21-0400 diastolic 60 mm[Hg] DR XANDER GRIFFIN MD [facility] 09-19-2022 22:21-0400 Heart rate 91 /min DR XANDER GRIFFIN MD [facility] 09-19-2022 22:21-0400 Respiratory rate 16 /min DR XANDER GRIFFIN MD [facility] 09-19-2022 22:21-0400 systolic 129 mm[Hg] DR XANDER GRIFFIN MD [facility] 09-19-2022 22:06-0400 Diastolic Blood Pressure Non-Invasive [address] XANDER GRIFFIN MD [facility] 09-19-2022 22:06-0400 Heart rate 93 /min DR XANDER GRIFFIN MD [facility] 09-19-2022 22:06-0400 Respiratory rate 18 /min DR XANDER GRIFFIN MD [facility] 09-19-2022 22:06-0400 Systolic Blood Pressure Non-Invasive [address] XANDER GRIFFIN MD [facility] 09-19-2022 21:20-0400 Diastolic Blood Pressure Non-Invasive [address] XANDER GRIFFIN MD [facility] 09-19-2022 21:20-0400 Heart rate 91 /min DR XANDER GRIFFIN MD [facility] 09-19-2022 21:20-0400 Respiratory rate 16 /min DR XANDER GRIFFIN MD [facility] 09-19-2022 21:20-0400 Systolic Blood Pressure Non-Invasive [address] XANDER GRIFFIN MD [facility] 09-19-2022 20:30-0400 Body temperature 98.24 [degF] DR XANDER GRIFFIN MD [facility] 09-19-2022 19:50-0400 Reason For Taking VItal Signs DR XANDER GRIFFIN MD [facility] 09-19-2022 18:08-0400 Mean blood pressure 70 mm[Hg] DR XANDER GRIFFIN MD [facility] 09-19-2022 16:56-0400 Heart rate 82 /min DR XANDER GRIFFIN MD [facility] 09-19-2022 16:56-0400 Mean blood pressure 68 mm[Hg] DR XANDER GRIFFIN MD [facility] 09-19-2022 16:56-0400 Reason For Taking VItal Signs DR XANDER GRIFFIN MD [facility] 09-19-2022 15:45-0400 Mean blood pressure 56 mm[Hg] DR XANDER GRIFFIN MD [facility] 09-19-2022 15:27-0400 Heart rate 78 /min DR XANDER GRIFFIN MD [facility] 09-19-2022 15:27-0400 Reason For Taking VItal Signs DR XANDER GRIFFIN MD [facility] 09-19-2022 12:03-[address] XANDER GRIFFIN MD [facility] 09-19-2022 12:03-0400 Body temperature 98.78 [degF] DR XANDER GRIFFIN MD [facility] 09-19-2022 12:03-0400 Heart rate 91 /min DR XANDER GRIFFIN MD [facility] 07-09-2022 11:15-0400 Body temperature 97.52 [degF] MAKI TOUSSAINT SENIOR MATERIALS ANALYST-SONOGRAPHY TECHNOLOGIST [facility] 07-09-2022 11:15-0400 Diastolic Blood Pressure Non-Invasive 82 1 MAKIJEFFREY TOUSSAINT SENIOR MATERIALS ANALYST-SONOGRAPHY TECHNOLOGIST [facility] 07-09-2022 11:15-0400 Heart rate 58 /min MAKI TOUSSAINT SENIOR MATERIALS ANALYST-SONOGRAPHY TECHNOLOGIST [facility] 07-09-2022 11:15-0400 Respiratory rate 20 /min MAKI TOUSSAINT SENIOR MATERIALS ANALYST-SONOGRAPHY TECHNOLOGIST [facility] 07-09-2022 11:15-0400 Systolic Blood Pressure Non-Invasive 164 1 MAKI TOUSSAINT SENIOR MATERIALS ANALYST-SONOGRAPHY TECHNOLOGIST [facility] 07-09-2022 09:33-0400 Heart rate 88 /min MAKI TOUSSAINT SENIOR MATERIALS ANALYST-SONOGRAPHY TECHNOLOGIST [facility] 07-09-2022 06:09-0400 Body temperature 97.7 [degF] MAKI GARCIAN SENIOR MATERIALS ANALYST-SONOGRAPHY TECHNOLOGIST [facility] 07-09-2022 06:09-0400 Diastolic Blood Pressure Non-Invasive 70 1 MAKI GARCIAN SENIOR MATERIALS ANALYST-SONOGRAPHY TECHNOLOGIST [facility] 07-09-2022 06:09-0400 Heart rate 74 /min MAKI GARCIAN SENIOR MATERIALS ANALYST-SONOGRAPHY TECHNOLOGIST [facility] 07-09-2022 06:09-0400 Respiratory rate 20 /min MAKI TOUSSAINT SENIOR MATERIALS ANALYST-SONOGRAPHY TECHNOLOGIST [facility] 07-09-2022 06:09-0400 Systolic Blood Pressure Non-Invasive 173 1 MAKI GARCIAN SENIOR MATERIALS ANALYST-SONOGRAPHY TECHNOLOGIST [facility] 07-09-2022 03:36-0400 Body temperature 98.06 [degF] MAKI TOUSSAINT SENIOR MATERIALS ANALYST-SONOGRAPHY TECHNOLOGIST [facility] 07-09-2022 03:36-0400 Diastolic Blood Pressure Non-Invasive 70 1 MAKI GARCIAN SENIOR MATERIALS ANALYST-SONOGRAPHY TECHNOLOGIST [facility] 07-09-2022 03:36-0400 Heart rate 61 /min MAKI GARCIAN SENIOR MATERIALS ANALYST-SONOGRAPHY TECHNOLOGIST [facility] 07-09-2022 03:36-0400 Respiratory rate 20 /min MAKI GARCIAJackeline SENIOR MATERIALS ANALYST-SONOGRAPHY TECHNOLOGIST [facility] 07-09-2022 03:36-0400 Systolic Blood Pressure Non-Invasive 138 1 MAKIJEFFREY MCCLAINNEN SENIOR MATERIALS ANALYST-SONOGRAPHY TECHNOLOGIST [facility] 07-08-2022 23:23-0400 Heart rate 70 /min AMKIJEFFREY GARCIAN SENIOR MATERIALS ANALYST-SONOGRAPHY TECHNOLOGIST [facility] 07-08-2022 19:40-0400 Heart rate 70 /min MAKIJEFFREY MCCLAINNEN SENIOR MATERIALS ANALYST-SONOGRAPHY TECHNOLOGIST [facility] 07-08-2022 15:39-0400 Heart rate 112 /min MAKI JOHNYNEN SENIOR MATERIALS ANALYST-SONOGRAPHY TECHNOLOGIST [facility] 07-08-2022 12:20-0400 Heart rate 108 /min MAKI JOHNYNEN SENIOR MATERIALS ANALYST-SONOGRAPHY TECHNOLOGIST [facility] 07-07-2022 15:20-0400 Heart rate 58 /min MAKIJEFFREY MCCLAINNEN SENIOR MATERIALS ANALYST-SONOGRAPHY TECHNOLOGIST [facility] 07-06-2022 00:43-0400 Blood Pressure Cuff Size MAKIJEFFREY MCCLAINNEN SENIOR MATERIALS ANALYST-SONOGRAPHY TECHNOLOGIST [facility] 07-06-2022 00:43-0400 Blood Pressure Location MAKIJEFFREY MCCLAINNEN SENIOR MATERIALS ANALYST-SONOGRAPHY TECHNOLOGIST [facility] 07-06-2022 00:43-0400 Blood Pressure Method MAKIJEFFREY MCCLAINNEN SENIOR MATERIALS ANALYST-SONOGRAPHY TECHNOLOGIST [facility] 07-05-2022 11:45-0400 Blood Pressure Cuff Size MAKI JOHNYNEN SENIOR MATERIALS ANALYST-SONOGRAPHY TECHNOLOGIST [facility] 07-05-2022 11:45-0400 Blood Pressure Location MAKI JOHNYNEN SENIOR MATERIALS ANALYST-SONOGRAPHY TECHNOLOGIST [facility] 07-05-2022 11:45-0400 Blood Pressure Method MAKI TOUSSAINT SENIOR MATERIALS ANALYST-SONOGRAPHY TECHNOLOGIST [facility] 07-05-2022 11:45-0400 Body temperature 97.88 [degF] MAKI TOUSSAINT SENIOR MATERIALS ANALYST-SONOGRAPHY TECHNOLOGIST [facility] 07-03-2022 14:24-0400 Reason For Taking VItal Signs MAKI TOUSSAINT SENIOR MATERIALS ANALYST-SONOGRAPHY TECHNOLOGIST [facility] 07-03-2022 11:06-0400 Reason For Taking VItal Signs MAKI TOUSSAINT SENIOR MATERIALS ANALYST-SONOGRAPHY TECHNOLOGIST [facility] 07-03-2022 06:54-0400 Blood Pressure Location MAKI TOUSSAINT SENIOR MATERIALS ANALYST-SONOGRAPHY TECHNOLOGIST [facility] 07-03-2022 06:54-0400 Blood Pressure Method MAKI TOUSSAINT SENIOR MATERIALS ANALYST-SONOGRAPHY TECHNOLOGIST [facility] 07-03-2022 06:54-0400 Reason For Taking VItal Signs MAKI TOUSSAINT SENIOR MATERIALS ANALYST-SONOGRAPHY TECHNOLOGIST [facility] 07-02-2022 05:17-0400 Body weight 143.6 kg MAKI TOUSSAINT SENIOR MATERIALS ANALYST-SONOGRAPHY TECHNOLOGIST [facility] 07-01-2022 20:58-0400 Body height 175.3 cm MAKI TOUSSAINT SENIOR MATERIALS ANALYST-SONOGRAPHY TECHNOLOGIST [facility] 07-01-2022 20:58-0400 Body weight 147.2 kg MAKI TOUSSAINT SENIOR MATERIALS ANALYST-SONOGRAPHY TECHNOLOGIST [facility] 07-01-2022 20:58-0400 Body weight 47.9 kg/m2 MAKI TOUSSAINT SENIOR MATERIALS ANALYST-SONOGRAPHY TECHNOLOGIST [facility] 07-01-2022 09:43-0400 Body height 175.3 cm MAKI TOUSSAINT SENIOR MATERIALS ANALYST-SONOGRAPHY TECHNOLOGIST [facility] 07-01-2022 09:43-0400 Body weight 145 kg MAKI TOUSSAINT SENIOR MATERIALS ANALYST-SONOGRAPHY TECHNOLOGIST [facility] 06-30-2022 02:29-0400 Diastolic Blood Pressure Non-Invasive [address] XANDER GRIFFIN MD [facility] 06-30-2022 02:29-0400 Heart rate 87 /min DR XANDER GRIFFIN MD [facility] 06-30-2022 02:29-0400 Respiratory rate 16 /min DR XANDER GRIFFIN MD [facility] 06-30-2022 02:29-0400 Systolic Blood Pressure Non-Invasive [address] XANDER GRIFFIN MD [facility] 06-30-2022 01:37-[address] XANDER GRIFFIN MD [facility] 06-30-2022 01:37-0400 Body temperature 100.4 [degF] DR XANDER GRIFFIN MD [facility] 06-30-2022 01:37-0400 Diastolic Blood Pressure Non-Invasive [address] XANDER GRIFFIN MD [facility] 06-30-2022 01:37-0400 Heart rate 94 /min DR XANDER GRIFFIN MD [facility] 06-30-2022 01:37-0400 Respiratory rate 16 /min DR XANDER GRIFFIN MD [facility] 06-30-2022 01:37-0400 Systolic Blood Pressure Non-Invasive [address] XANDER GRIFFIN MD [facility] 12-10-2021 11:09-0400 Body temperature 97.8 [degF] Dr. Agnes Hernandez Work Phone: [facility] Work Phone: 12-10-2021 11:09-0400 Diastolic blood pressure 46 mm[Hg] Dr. Agnes Hernandez Work Phone: [facility] Work Phone: 12-10-2021 11:09-0400 Heart rate 78 /min Dr. Agnes Hernandez Work Phone: [facility] Work Phone: 12-10-2021 11:09-0400 Inhaled oxygen flow rate 3 L/min Dr. Agnes Hernandez Work Phone: [facility] Work Phone: 12-10-2021 11:09-0400 Respiratory rate 16 /min Dr. Agnes Hernandez Work Phone: [facility] Work Phone: 12-10-2021 11:09-0400 SaO2% (BldA) [Mass fraction] 95 % Dr. Agnes Hernandez Work Phone: [facility] Work Phone: 12-10-2021 11:09-0400 Systolic blood pressure 108 mm[Hg] Dr. Agnes Hernandez Work Phone: [facility] Work Phone: 12-10-2021 08:04-0400 Body height 175.[address] Agnes Hernandez Work Phone: [facility] Work Phone: 12-10-2021 08:04-0400 Body mass index (BMI) [Ratio] 47.5 kg/m2 Dr. Agnes Hernandez Work Phone: [facility] Work Phone: 12-10-2021 08:04-0400 Body weight [address] Agnes Hernandez Work Phone: [facility] Work Phone: 11-03-2021 15:10-0400 Body height 175.[address] Agnes Hernandez Work Phone: [facility] Work Phone: 11-03-2021 15:10-0400 Body mass index (BMI) [Ratio] 48.4 kg/m2 Dr. Agnes Hernandez Work Phone: [facility] Work Phone: 11-03-2021 15:10-0400 Body temperature 97.7 [degF] Dr. Agnes Hernandez Work Phone: [facility] Work Phone: 11-03-2021 15:10-0400 Body weight 148.[address] Agnes Hernandez Work Phone: [facility] Work Phone: 11-03-2021 15:10-0400 Diastolic blood pressure 79 mm[Hg] Dr. Agnes Hernandez Work Phone: [facility] Work Phone: 11-03-2021 15:10-0400 Heart rate 70 /min Dr. Agnes Hernandez Work Phone: [facility] Work Phone: 11-03-2021 15:10-0400 Respiratory rate 18 /min Dr. Agnes Hernandez Work Phone: [facility] Work Phone: 11-03-2021 15:10-0400 SaO2% (BldA) [Mass fraction] 95 % Dr. Agnes Hernandez Work Phone: [facility] Work Phone: 11-03-2021 15:10-0400 Systolic blood pressure 137 mm[Hg] Dr. Agnes Hernandez Work Phone: [facility] Work Phone: 10-08-2021 11:50-0400 Body temperature 97.7 [degF] [facility] Work Phone: 10-08-2021 11:50-0400 Diastolic blood pressure 55 mm[Hg] [facility] Work Phone: 10-08-2021 11:50-0400 Heart rate 71 /min [facility] Work Phone: 10-08-2021 11:50-0400 Inhaled oxygen flow rate 2 L/min Dr. Agnes Hernandez Work Phone: [facility] Work Phone: 10-08-2021 11:50-0400 Respiratory rate 18 /min [facility] Work Phone: 10-08-2021 11:50-0400 SaO2% (BldA) [Mass fraction] 96 % [facility] Work Phone: 10-08-2021 11:50-0400 Systolic blood pressure 82 mm[Hg] [facility] Work Phone: 10-08-2021 08:49-0400 Body height 175.26 cm [facility] Work Phone: 10-08-2021 08:49-0400 Body mass index (BMI) [Ratio] 47.7 kg/m2 [facility] Work Phone: 10-08-2021 08:49-0400 Body weight 146.7 kg [facility] Work Phone: 07-21-2021 20:41-0400 Diastolic blood pressure 83 mm[Hg] DR ABDIFATAH ARANDA MD [facility] 07-21-2021 20:41-0400 Heart rate 82 /min DR ABDIFATAH ARANDA MD [facility] 07-21-2021 20:41-0400 Respiratory rate 18 /min DR ABDIFATAH ARANDA MD [facility] 07-21-2021 20:41-0400 Systolic blood pressure 152 mm[Hg] DR ABDIFATAH ARANDA MD [facility] 07-21-2021 19:15-0400 Heart rate 78 /min DR ABDIFATAH ARANDA MD [facility] 07-21-2021 19:15-0400 Respiratory rate 20 /min DR ABDIFATAH ARANDA MD [facility] 07-21-2021 19:03-0400 Heart rate 76 /min DR ABDIFATAH ARANDA MD [facility] 07-21-2021 19:03-0400 Respiratory rate 20 /min DR ABDIFATAH ARANDA MD [facility] 07-21-2021 15:36-0400 Body temperature 98.42 [degF] DR ABDIFATAH ARANDA MD [facility] 07-21-2021 15:36-0400 Diastolic blood pressure 75 mm[Hg] DR ABDIFATAH ARANDA MD [facility] 07-21-2021 15:36-0400 Mean blood pressure 102 mm[Hg] DR ABDIFATAH ARANDA MD [facility] 07-21-2021 15:36-0400 Systolic blood pressure 156 mm[Hg] DR ABDIFATAH ARANDA MD [facility] 07-11-2021 14:52-0400 Body temperature 98.06 [degF] SHABBIR MART MD [facility] 07-11-2021 14:52-0400 Diastolic blood pressure 81 mm[Hg] SHABBIR MART MD [facility] 07-11-2021 14:52-0400 Heart rate 83 /min SHABBIR MART MD [facility] 07-11-2021 14:52-0400 Respiratory rate 20 /min SHABBIR MART MD [facility] 07-11-2021 14:52-0400 Systolic blood pressure 163 mm[Hg] SHABBIR MART MD [facility] 04-30-2021 06:52-0500 Diastolic blood pressure 90 mm[Hg] EDIE HOUSTON MD [facility] 04-30-2021 06:52-0500 Heart rate 79 /min EDIE HOUSTON MD [facility] 04-30-2021 06:52-0500 Respiratory rate 22 /min EDIE HOUSTON MD [facility] 04-30-2021 06:52-0500 Systolic blood pressure 182 mm[Hg] EDIE HOUSTON MD [facility] 04-30-2021 05:45-0500 Diastolic blood pressure 94 mm[Hg] EDIE HOUSTON MD [facility] 04-30-2021 05:45-0500 Heart rate 86 /min EDIE HOUSTON MD [facility] 04-30-2021 05:45-0500 Respiratory rate 24 /min EDIE HOUSTON MD [facility] 04-30-2021 05:45-0500 Systolic blood pressure 164 mm[Hg] EDIE HOUSTON MD [facility] 04-30-2021 04:15-0500 Diastolic blood pressure 97 mm[Hg] EDIE HOUSTON MD [facility] 04-30-2021 04:15-0500 Heart rate 83 /min EDIE HOUSTON MD [facility] 04-30-2021 04:15-0500 Respiratory rate 20 /min EDIE HOUSTON MD [facility] 04-30-2021 04:15-0500 Systolic blood pressure 174 mm[Hg] EDIE HOUSTON MD [facility] 04-29-2021 22:23-0500 Reason For Taking VItal Signs EDIE HOUSTON MD [facility] 04-29-2021 19:30-0500 Reason For Taking VItal Signs EDIE HOUSTON MD [facility] 04-29-2021 17:17-0500 Heart rate 93 /min EDIE HOUSTON MD [facility] 04-29-2021 17:17-0500 Reason For Taking VItal Signs EDIE HOUSTON MD [facility] 04-29-2021 15:58-0500 Heart rate 94 /min EDIE HOUSTON MD [facility] 04-29-2021 15:08-0500 Body temperature 98.06 [degF] EDIE HOUSTON MD [facility] 04-29-2021 15:08-0500 Heart rate 87 /min EDIE HOUSTON MD [facility] 04-23-2021 13:04-0500 Body temperature 98.6 [degF] DR JULIO NICHOLAS DO [facility] 04-23-2021 13:04-0500 Diastolic blood pressure 84 mm[Hg] DR JULIO NICHOLAS DO [facility] 04-23-2021 13:04-0500 Heart rate 66 /min DR JULIO NICHOLAS DO [facility] 04-23-2021 13:04-0500 Mean blood pressure 113 mm[Hg] DR JULIO NICHOLAS DO [facility] 04-23-2021 13:04-0500 Respiratory rate 18 /min DR JULIO NICHOLAS DO [facility] 04-23-2021 13:04-0500 Systolic blood pressure 171 mm[Hg] DR JULIO NICHOLAS DO [facility] 02-24-2021 11:18-0500 Body temperature 97.88 [degF] DR DAYLIN COOK MD [facility] 02-24-2021 11:18-0500 Diastolic Blood Pressure NBP [address] DAYLIN COOK MD [facility] 02-24-2021 11:18-0500 Heart rate 78 /min DR DAYLIN COOK MD [facility] 02-24-2021 11:18-0500 Mean blood pressure 107 mm[Hg] DR DAYLIN COOK MD [facility] 02-24-2021 11:18-0500 Reason For Taking VItal Signs DR DAYLIN COOK MD [facility] 02-24-2021 11:18-0500 Respiratory rate 18 /min DR DAYLIN COOK MD [facility] 02-24-2021 11:18-0500 Systolic Blood Pressure NBP [address] DAYLIN COOK MD [facility] 02-24-2021 08:32-0500 Heart rate 91 /min DR DAYLIN COOK MD [facility] 02-24-2021 08:03-0500 Heart rate 95 /min DR DAYLIN COOK MD [facility] 02-24-2021 08:03-0500 Reason For Taking VItal Signs DR DAYLIN COOK MD [facility] 02-24-2021 07:23-0500 Body temperature 98.24 [degF] DR DAYLIN COOK MD [facility] 02-24-2021 07:23-0500 Diastolic Blood Pressure NBP [address] DAYLIN COOK MD [facility] 02-24-2021 07:23-0500 Heart rate 88 /min DR ADYLIN COOK MD [facility] 02-24-2021 07:23-0500 Mean blood pressure 95 mm[Hg] DR DAYLIN COOK MD [facility] 02-24-2021 07:23-0500 Reason For Taking VItal Signs DR DAYLIN COOK MD [facility] 02-24-2021 07:23-0500 Respiratory rate 18 /min DR DAYLIN COOK MD [facility] 02-24-2021 07:23-0500 Systolic Blood Pressure NBP [address] DAYLIN COOK MD [facility] 02-24-2021 04:11-0500 Body temperature 98.06 [degF] DR DAYLIN COOK MD [facility] 02-24-2021 04:11-0500 Diastolic Blood Pressure NBP [address] DAYLIN COOK MD [facility] 02-24-2021 04:11-0500 Mean blood pressure 86 mm[Hg] DR DAYLIN COOK MD [facility] 02-24-2021 04:11-0500 Respiratory rate 18 /min DR DAYLIN COOK MD [facility] 02-24-2021 04:11-0500 Systolic Blood Pressure NBP [address] DAYLIN COOK MD [facility] 02-23-2021 20:15-0500 Heart rate 96 /min DR DAYLIN COOK MD [facility] 02-23-2021 08:57-0500 Heart rate 93 /min DR DAYLIN COOK MD [facility] 02-23-2021 07:50-0500 Heart rate 98 /min DR DAYLIN COOK MD [facility] 02-23-2021 04:15-0500 Heart rate 90 /min DR DAYLIN COOK MD [facility] 02-22-2021 07:15-0500 Heart rate 77 /min DR DAYLIN COOK MD [facility] 02-22-2021 04:41-0500 Body temperature 96.98 [degF] DR DAYLIN COOK MD [facility] 02-21-2021 05:03-0400 Body temperature 97.7 [degF] DR DAYLIN COOK MD [facility] 02-18-2021 17:45-0400 Diastolic blood pressure 59 mm[Hg] DR DAYLIN COOK MD [facility] 02-18-2021 17:45-0400 Mean blood pressure 71 mm[Hg] DR DAYLIN COOK MD [facility] 02-18-2021 17:45-0400 Systolic blood pressure 92 mm[Hg] DR DAYLIN COOK MD [facility] 02-18-2021 17:30-0400 Diastolic blood pressure 62 mm[Hg] DR DAYLIN COOK MD [facility] 02-18-2021 17:30-0400 Mean blood pressure 73 mm[Hg] DR DAYLIN COOK MD [facility] 02-18-2021 17:30-0400 Systolic blood pressure 92 mm[Hg] DR DAYLIN COOK MD [facility] 02-18-2021 17:00-0400 Diastolic blood pressure 56 mm[Hg] DR DAYLIN COOK MD [facility] 02-18-2021 17:00-0400 Mean blood pressure 72 mm[Hg] DR DAYLIN COOK MD [facility] 02-18-2021 17:00-0400 Systolic blood pressure 109 mm[Hg] DR DAYLIN COOK MD [facility] 02-18-2021 11:50-0400 Body temperature 98.24 [degF] DR DAYLIN COOK MD [facility] 02-18-2021 11:45-0400 Body temperature 98.19 [degF] DR DAYLIN COOK MD [facility] 02-18-2021 11:40-0400 Body temperature 98.13 [degF] DR DAYLIN COOK MD [facility] 02-18-2021 06:10-0400 Body height 175.[address] DAYLIN COOK MD [facility] 02-18-2021 06:10-0400 Body weight 141.[address] DAYLIN COOK MD [facility] 02-18-2021 06:10-0400 Body weight 46.05 kg/m2 DR DAYLIN COOK MD [facility] 02-18-2021 06:10-0400 diastolic 79 mm[Hg] DR DAYLIN COOK MD [facility] 02-18-2021 06:10-0400 systolic 120 mm[Hg] DR DAYLIN COOK MD [facility] 02-02-2021 13:23-0400 Body height [address] DAYLIN COOK MD [facility] 02-02-2021 13:23-0400 Body temperature 98.06 [degF] DR DAYLIN COOK MD [facility] 02-02-2021 13:23-0400 Body weight 139.[address] DAYLIN COOK MD [facility] 02-02-2021 13:23-0400 Body weight 48.81 kg/m2 DR DAYLIN COOK MD [facility] 02-02-2021 13:23-0400 diastolic 69 mm[Hg] DR DAYLIN COOK MD [facility] 02-02-2021 13:23-0400 Heart rate 65 /min DR DAYLIN COOK MD [facility] 02-02-2021 13:23-0400 systolic 109 mm[Hg] DR DAYLIN COOK MD [facility] Encounters Encounter Date Encounter Type Care Provider Facility Start: 09-27-2024 ambulatory Agnes Pepperkurt Facility :[facility] Start: 09-21-2024 ambulatory Mj Mc Facility:[facility] Start: 09-20-2024 ambulatory Agnes Awad Facility :[facility] Start: 08-24-2024 End: 08-24-2024 ambulatory Agnes M Anmol Facility:[facility] Start: 08-22-2024 End: 08-22-2024 ambulatory Agnes Hernandez Facility:[facility] Start: 08-10-2024 ambulatory AGNES AWAD DO Facil ity:A Start: 08-08-2024 ambulatory AGNES AWAD DO Facil ity:[facility] Start: 08-01-2024 End: 08-01-2024 ambulatory AGNES AWAD DO Facility:[facility] Start: 08-01-2024 End: 08-01-2024 Patient encounter procedure AMALIA BARRERA MD [facility] Start: 06-22-2024 End: 06-22-[address] AGNES HERNANDEZ DO Facility:[facility] Start: 05-15-2024 ambulatory Agnes Hernandez Facility:[facility] Start: 04-17-2024 End: 04-17-[address] AGNES HERNANDEZ DO Facility:[facility] Start: 04-17-2024 End: 04-17-2024 Patient encounter procedure JENNI MARCUS MD [facility] Start: 04-16-2024 End: 04-16-2024 Emergency department patient visit DR JULIO NICHOLAS DO [facility] Start: 04-04-2024 End: 04-04-2024 ambulatory AMALIA BARRERA MD Facility:[facility] Start: 04-04-2024 End: 04-04-2024 Patient encounter procedure AMALIA BARRERA MD [facility] Start: 04-02-2024 End: 04-02-2024 ambulatory AMALIA BARRERA MD Facility:[facility] Start: 04-02-2024 End: 04-02-2024 Patient encounter procedure AMALIA BARRERA MD [facility] Start: 03-20-2024 End: 03-20-2024 ambulatory Agnes Hernandez Facility:[facility] Start: 03-19-2024 End: 03-23-[address] AGNES HERNANDEZ DO Facility:[facility] Start: 03-19-2024 End: 03-23-[address] CESAR WOO MD [facility] Start: 03-12-2024 End: 03-16-[address] AGNES HERNANDEZ DO Facility:[facility] Start: 03-12-2024 End: 03-16-[address] CESAR WOO MD [facility] Start: 03-08-2024 End: 03-12-[address] AGNES HERNANDEZ DO Facility:[facility] Start: 03-08-2024 End: 03-12-[address] CESAR WOO MD [facility] Start: 03-05-2024 End: 03-09-[address] AGNES HERNANDEZ DO Facility:[facility] Start: 03-05-2024 End: 03-09-[address] CESAR WOO MD [facility] Start: 02-28-2024 End: 03-03-[address] AGNES HERNANDEZ DO Facility:[facility] Start: 02-28-2024 End: 03-03-[address] CESAR WOO MD [facility] Start: 02-20-2024 End: 02-24-[address] AGNES HERNANDEZ DO Facility:[facility] Start: 02-20-2024 End: 02-24-[address] CESAR WOO MD [facility] Start: 02-15-2024 End: 02-15-2024 ambulatory Agnes Malys Facility:[facility] Start: 02-13-2024 End: 02-17-[address] AGNES HERNANDEZ DO Facility:[facility] Start: 02-13-2024 End: 02-17-[address] CESAR WOO MD [facility] Start: 02-11-2024 End: 03-28-[address] AGNES HERNANDEZ DO Facility:[facility] Start: 02-06-2024 ambulatory Agnes Malys Facility:[facility] Start: 02-01-2024 End: 02-10-2024 Evaluation and management of inpatient DR JASON AZAR MD [facility] Start: 02-01-2024 End: 02-01-2024 Emergency department patient visit LAURA ARRIAZA [facility] Start: 01-30-2024 End: 01-30-2024 Emergency department patient visit DR GIFTY FORD MD [facility] Start: 01-05-2024 End: 01-05-2024 ambulatory Agnes Malys Facility:[facility] Start: 12-10-2023 End: 12-10-2023 Emergency department patient visit Agnes Malys Facility:[facility] Start: 12-06-2023 End: 12-06-2023 ambulatory JENNI MARCUS MD Facility:[facility] Start: 11-22-2023 ambulatory Agnes Malys Facility:[facility] Start: 11-22-2023 End: 11-22-2023 ambulatory Agnes Malys Facility:[facility] Start: 11-22-2023 End: 11-22-2023 ambulatory Ean Alfonso Facility:[facility] Start: 10-03-2023 End: 10-03-2023 ambulatory Agnes Dagojesse Facility:[facility] Start: 07-07-2023 End: 07-07-2023 ambulatory JENNI MARCUS MD Facility:[facility] Start: 06-23-2023 End: 06-23-2023 Emergency department patient visit LAURA ARRIAZA DO [facility] Start: 05-18-2023 End: 05-18-2023 ambulatory KENTRELL DEAN MD Facility:[facility] Start: 05-18-2023 End: 05-18-2023 Patient encounter procedure KENTRELL DEAN MD [facility] Start: 02-03-2023 End: 02-03-2023 ambulatory JENNI MARCUS MD Facility:[facility] Start: 11-01-2022 End: 11-04-2022 Evaluation and management of inpatient AGNES Papo DUNCAN SENIOR MATERIALS ANALYST-SONOGRAPHY TECHNOLOGIST [facility] Start: 10-27-2022 End: 10-27-2022 Patient encounter procedure STEPHANIE ORTIZ SENIOR MATERIALS ANALYST-SONOGRAPHY TECHNOLOGIST [facility] Start: 10-07-2022 End: 10-07-[address] AGNES HERNANDEZ DO [facility] Start: 09-19-2022 End: 09-20-2022 Observation EVAN BURT MD [facility] Start: 09-19-2022 End: 09-19-2022 Emergency department patient visit DR XANDER GRIFFIN MD [facility] Start: 07-01-2022 End: 07-09-2022 Evaluation and management of inpatient MAKI TOUSSAINT SENIOR MATERIALS ANALYST-SONOGRAPHY TECHNOLOGIST [facility] Start: 06-30-2022 End: 06-30-2022 Emergency department patient visit DR XANDER GRIFFIN MD [facility] Start: 06-08-2022 End: 06-08-[address] AGNES HERNANDEZ DO [facility] Start: 03-22-2022 End: 03-22-2022 ambulatory [facility] Work Phone: Start: 03-22-2022 End: 03-22-2022 Patient encounter procedure [facility] Start: 02-11-2022 End: 02-11-[address] Agnes Hernandez Work Phone: [facility] Work Phone: Start: 02-11-2022 End: 02-11-[address] Agnes Hernandez Work Phone: [facility] Start: 12-10-2021 End: 12-10-2021 Admission to same day surgery center Dr. Agnes Hernandez Work Phone: [facility] Start: 12-10-2021 End: 12-10-[address] Agnes Hernandez Work Phone: [facility] Work Phone: Start: 11-16-2021 End: 11-16-[address] Agnes Hernandez Work Phone: [facility]Outpatient [facility] Start: 11-03-2021 End: 11-03-[address] Agnes Hernandez Work Phone: [facility] Start: 10-21-2021 End: 10-21-[address] AGNES HERNANDEZ DO [facility] Start: 10-08-2021 End: 10-08-2021 [facility] Start: 07-21-2021 End: 07-21-2021 Emergency department patient visit DR ABDIFATAH ARANDA MD [facility] Start: 07-11-2021 End: 07-11-2021 Emergency department patient visit SHABBIR MART MD [facility] Start: 04-29-2021 End: 04-30-2021 Emergency department patient visit EDIE HOUSTON MD [facility] Start: 04-23-2021 End: 04-23-2021 Emergency department patient visit DR JULIO NICHOLAS DO [facility] Start: 03-09-2021 End: 03-09-2021 Patient encounter procedure EVENS MCGARRY SENIOR MATERIALS ANALYST-SONOGRAPHY TECHNOLOGIST [facility] Start: 02-18-2021 End: 02-24-2021 Evaluation and management of inpatient DR DAYLIN COOK MD [facility] Start: 02-02-2021 End: 02-02-[address] DAYLIN COOK MD [facility] Start: 02-02-2021 End: 02-02-[address] DAYLIN COOK MD [facility] Procedures Date Procedure Procedure Detail Performing Clinician Start: 03-22-2022 Plain x-ray of pelvi s and lower extremity Start: 12-10-2021 Axonica Stage 1 (Not Applicable) Dr. Agnes Hernandez Work Phone: Start: 11-16-2021 Screening mammography Arnaldo Hernandez Work Phone: Start: 10-08-2021 Fluoroscopic guidance Start: 10-08-2021 Interstim Therapy 1 (Not Applicable) Start: 04-18-[address] KENRICK COOK MD Start: 04-18-[address] DAYLIN COOK MD Start: 04-18-1968 Ophthalmic surgery (qualifier value) DR DAYLIN COOK MD Comment on above: LEFT EYE Colonoscopy DR DAYLIN MULLEN MD Cystopexy DR DAYLIN MULLEN MD Cystoscopy DR DAYLIN MULLEN MD Plan of Treatment Date Care Activity Detail Author Start: 12-10-2021 Anes integ musc & nrv head neck&posterior trunk ANESTH HEAD/NECK/PTRUNK [facility] Work Phone: Start: 12-10-2021 Prq impltj neurostim eltrd sacral nrve w/imaging IMPLANT NEUROELECTRODES [facility] Work Phone: Start: 12-10-2021 Patient discharge [facility] Work Phone: Start: 10-08-2021 Anesthesia lumbar region nos ANESTH SPINE CORD SURGERY [facility] Work Phone: Start: 10-08-2021 Prq impltj neurostim eltrd sacral nrve w/imaging IMPLANT NEUROELECTRODES [facility] Work Phone: Start: 10-08-2021 Patient discharge [facility] Work Phone: Patient referral [facility] Work Phone: Immunizations Immunization Date Immunization Notes Care Provider Fa brittaney 01-12-2023 RSV vaccine preF3, recombinant AMALIA BARRERA MD [facility] 01-12-2023 SARS-CoV-2 (COVID-19 ) [id number] AMALIA BARRERA MD [facility] 02-02-2022 tetanus toxoid, redu maida diphtheria toxoid, and acellular pertussis vaccine, adsorbed MAKI TOUSSANIT SENIOR MATERIALS ANALYST-SONOGRAPHY TECHNOLOGIST [facility] 02-02-2022 zoster vaccine recombinant MAKI TOUSSAINT SENIOR MATERIALS ANALYST-SONOGRAPHY TECHNOLOGIST [facility] 07-27-2021 pneumococcal conjuga te vaccine, 13 valent MAKI TOUSSAINT SENIOR MATERIALS ANALYST-SONOGRAPHY TECHNOLOGIST [facility] 11-15-2020 SARS-CoV-2 (COVID-19 ) mRNA-[address] DAYLIN COOK MD [facility] 10-17-2020 SARS-CoV-2 (COVID-19 ) mRNA-[address] DAYLIN COOK MD [facility] 06-19-2020 tetanus toxoid, redu maida diphtheria toxoid, and acellular pertussis vaccine, adsorbed; Translations: [Boostrix (Tdap)] DR DAYLIN COOK MD [facility] 01-23-1997 hepatitis B vaccine, adult dosage DR DAYLIN COOK MD [facility] 06-27-1996 hepatitis B vaccine, adult dosage DR DAYLIN COOK MD [facility] 05-09-1996 hepatitis B vaccine, adult dosage DR DAYLIN COOK MD [facility] Payers Date Payer Category Payer Unknown [id number] 2024 Unknown [id number] 2023 Medicaid [id number] 2022 Medicaid [id number] 2b [id number] 2016 Self-pay [id number] 2016 Unknown [id number] [facility] [id number] 2010 Medicare [id number] 405 [id number] 1955 Unknown [id number] 2.16.8 40.1.546990.3.579.2. 1955 Unknown [id number] 2.16.8 40.1.769932.3.579.2. 1955 Unknown [id number] 2.16.8 40.1.586504.3.579.2. 1955 Unknown [id number] 2.16.8 40.1.770124.3.579.2. 1955 Unknown [id number] 2.16.8 40.1.992073.3.579.2. 1955 Unknown [id number] 2.16.8 40.1.471578.3.579.2. 1955 Unknown [id number] 2.16.8 40.1.360035.3.579.2. 1955 Unknown [id number] 2.16.8 40.1.861470.3.579.2. 1955 Unknown [id number] 2.16.8 40.1.466574.3.579.2. 1955 Unknown [id number] 2.16.8 40.1.926763.3.579.2. 1955 Unknown [id number] 2.16.8 40.1.869629.3.579.2. 1955 Unknown [id number] 2.16.8 40.1.739598.3.579.2. 1955 Unknown [id number] 2.16.8 40.1.661017.3.579.2. 1955 Unknown [id number] 2.16.8 40.1.262559.3.579.2. 1955 Unknown [id number] 2.16.8 40.1.165763.3.579.2. 1955 Unknown [id number] 2.16.8 40.1.251994.3.579.2. 1955 Unknown [id number] 2.16.8 40.1.706247.3.579.2. 1955 Unknown [id number] 2.16.8 40.1.534844.3.579.2. 1955 Unknown [id number] 2.16.8 40.1.468031.3.579.2. 1955 Unknown [id number] 2.16.8 40.1.798691.3.579.2. 1955 Unknown [id number] 2.16.8 40.1.333569.3.579.2.627 1955 Unknown [id number] 2.16.8 40.1.085325.3.579.2.627 1955 Unknown [id number] 2.16.8 40.1.040508.3.579.2.627 1955 Unknown [id number] 2.16.8 40.1.518286.3.579.2.62 1955 Unknown [id number] 2.16.8 40.1.622258.3.579.2.62 1955 Unknown [id number] 2.16.8 40.1.464527.3.579.2.62 1955 Unknown [id number] 2.16.8 40.1.440949.3.579.2.627 1955 Unknown [id number] 2.16.8 40.1.735730.3.579.2.627 Unknown [id number] 2.16.8 40.1.146614.3.579.2.462 Unknown [id number] 2.16.8 40.1.276472.3.579.2.462 Unknown [id number] 2.16.8 40.1.024671.3.579.2.462 Unknown [id number] 2.16.8 40.1.538533.3.579.2.462 Unknown [id number] 2.16.8 40.1.418927.3.579.2.462 Unknown [id number] 2.16.8 40.1.442307.3.579.2.462 Unknown [id number] 2.16.8 40.1.170599.3.579.2.462 Unknown [id number] 2.16.8 40.1.855194.3.579.2.462 Unknown [id number] 2.16.8 40.1.042917.3.579.2.462 Unknown [id number] 2.16.8 40.1.531483.3.579.2.462 Unknown [id number] 2.16.8 40.1.373393.3.579.2.462 Unknown [id number] 2.16.8 40.1.533438.3.579.2.462 Unknown [id number] 2.16.8 40.1.907616.3.579.2.462 Unknown [id number] 2.16.8 40.1.712185.3.579.2.462 Unknown [id number] 2.16.8 40.1.238820.3.579.2.462 Unknown [id number] 2.16.8 40.1.722690.3.579.2.462 Social History Date Type Detail Facility Start: 09-14-2018 Ex-smoker (finding) [facility] Sex Assigned At [facility] Start: 10-01-2021 End: 03-03-2022 Tobacco smoking status WIIS Unknown if ever smoked [facility] Work Phone: Start: 07-01-2020 None [facility] Work Phone: Start: 07-01-2020 With Family [facility] Work Phone: Start: 07-01-2020 Non-smoker [facility] Work Phone: Start: 1955 Sex Assigned At Female W [facility] Work Phone: Start: 06-08-2013 Sex Female (finding) [facility] Start: 05-17-2024 Tobacco smoking status Light t obacco smoker (finding) [facility] Procedure Code Equipment Code Equipment Origin al Text Equipment Identifier Dates BD UF MINI PEN NEEDLE [id number], use five times a day with INSULIN and if needed Start: 02-03-2023 FREESTYLE LITE T EST STRIP, use 1 TEST STRIP to TEST BLOOD SUGAR four times a day Start: 02-03-2023 BD UF MINI PEN NEEDLE [id number], use five times a day with INSULIN and if needed Start: 02-03-2023 FREESTYLE LITE T EST STRIP, use 1 TEST STRIP to TEST BLOOD SUGAR four times a day Start: 02-03-2023 BD UF MINI PEN NEEDLE [id number], use five times a day with INSULIN and if needed Start: 02-03-2023 FREESTYLE LITE T EST STRIP, use 1 TEST STRIP to TEST BLOOD SUGAR four times a day Start: 02-03-2023 BD UF MINI PEN NEEDLE [id number], use five times a day with INSULIN and if needed Start: 02-03-2023 FREESTYLE LITE T EST STRIP, use 1 TEST STRIP to TEST BLOOD SUGAR four times a day Start: 02-03-2023 BD UF MINI PEN NEEDLE [id number], use five times a day with INSULIN and if needed Start: 02-03-2023 FREESTYLE LITE T EST STRIP, use 1 TEST STRIP to TEST BLOOD SUGAR four times a day Start: 02-03-2023 BD UF MINI PEN NEEDLE [id number], use five times a day with INSULIN and if needed Start: 02-03-2023 FREESTYLE LITE T EST STRIP, use 1 TEST STRIP to TEST BLOOD SUGAR four times a day Start: 02-03-2023 BD UF MINI PEN NEEDLE [id number], use five times a day with INSULIN and if needed Start: 02-03-2023 FREESTYLE LITE T EST STRIP, use 1 TEST STRIP to TEST BLOOD SUGAR four times a day Start: 02-03-2023 BD UF MINI PEN NEEDLE [id number], use five times a day with INSULIN and if needed Start: 02-03-2023 FREESTYLE LITE T EST STRIP, use 1 TEST STRIP to TEST BLOOD SUGAR four times a day Start: 02-03-2023 BD UF MINI PEN NEEDLE [id number], use five times a day with INSULIN and if needed Start: 02-03-2023 FREESTYLE LITE T EST STRIP, use 1 TEST STRIP to TEST BLOOD SUGAR four times a day Start: 02-03-2023 BD UF MINI PEN NEEDLE [id number], use five times a day with INSULIN and if needed Start: 02-03-2023 FREESTYLE LITE T EST STRIP, use 1 TEST STRIP to TEST BLOOD SUGAR four times a day Start: 02-03-2023 BD UF MINI PEN NEEDLE [id number], use five times a day with INSULIN and if needed Start: 02-03-2023 FREESTYLE LITE T EST STRIP, use 1 TEST STRIP to TEST BLOOD SUGAR four times a day Start: 02-03-2023 BD UF MINI PEN NEEDLE [id number], use five times a day with INSULIN and if needed Start: 02-03-2023 FREESTYLE LITE T EST STRIP, use 1 TEST STRIP to TEST BLOOD SUGAR four times a day Start: 02-03-2023 BD UF MINI PEN NEEDLE [id number], use five times a day with INSULIN and if needed Start: 02-03-2023 FREESTYLE LITE T EST STRIP, use 1 TEST STRIP to TEST BLOOD SUGAR four times a day Start: 02-03-2023 BD UF MINI PEN NEEDLE [id number], use five times a day with INSULIN and if needed Start: 02-03-2023 FREESTYLE LITE T EST STRIP, use 1 TEST STRIP to TEST BLOOD SUGAR four times a day Start: 02-03-2023 BD UF MINI PEN NEEDLE [id number], use five times a day with INSULIN and if needed Start: 02-03-2023 FREESTYLE LITE T EST STRIP, use 1 TEST STRIP to TEST BLOOD SUGAR four times a day Start: 02-03-2023 BD UF MINI PEN NEEDLE [id number], use five times a day with INSULIN and if needed Start: 02-03-2023 FREESTYLE LITE T EST STRIP, use 1 TEST STRIP to TEST BLOOD SUGAR four times a day Start: 02-03-2023 BD UF MINI PEN NEEDLE [id number], use five times a day with INSULIN and if needed Start: 02-03-2023 FREESTYLE LITE T EST STRIP, use 1 TEST STRIP to TEST BLOOD SUGAR four times a day Start: 02-03-2023 BD UF MINI PEN NEEDLE [id number], use five times a day with INSULIN and if needed Start: 02-03-2023 FREESTYLE LITE T EST STRIP, use 1 TEST STRIP to TEST BLOOD SUGAR four times a day Start: 02-03-2023 Goals Date Patient Goal Desired Activity /State Functional Status Date Assessment Result Facility 04-16-2024 Functional Status Up ad sarah [facility] 02-10-[facility]24 Functional Status Room check performed [facility] 02-10-2024 Functional Status [facility] 02-10-2024 Functional Status [facility] 02-10-2024 Functional Status [facility] 02-10-2024 Functional Status CHG bath [facility] 02-10-2024 Functional Status 7am-7pm [facility] 02-10-2024 Functional Status [facility] 02-10-2024 Functional Status Sequential Com pression Device bilateral knee high applied/on [facility] 02-10-2024 Functional Status [facility] 02-09-[facility] Functional Status Activity [facility] 02-09-2024 Functional Status [facility] 02-09-2024 Functional Status [facility] 02-09-2024 Functional Status [facility] 02-09-2024 Functional Status [facility] 02-09-2024 Functional Status [facility] 02-09-2024 Functional Status [facility] 02-08-2024 Functional Status [facility] 02-08-2024 Functional Status [facility] 02-08-2024 Functional Status Reason SCD Rem braulio/Off Patient refused [facility] 02-08-2024 Functional Status Done [facility] 02-08-2024 Functional Status Hospital bed [facility] 02-07-2024 Functional Status [facility] 02-07-2024 Functional Status Supervision [facility] 02-07-2024 Functional Status [facility] 02-07-2024 Functional Status Done [facility] 02-07-2024 Functional Status aide assist 2- 3 hrs MWF for housekeeping and showers [facility] 02-06-2024 Functional Status NPO Status Maintained [facility] 02-06-2024 Functional Status [facility] 02-05-2024 Functional Status [facility] 02-05-2024 Functional Status [facility] 02-04-2024 Functional Status [facility] 02-03-2024 Functional Status [facility] 02-02-2024 Functional Status heel(s)s elevated [facility] 02-01-2024 Functional Status Sensory Defici ts Hearing deficit, left ear, Hearing deficit, right ear [facility] 02-01-2024 Functional Status Standard Safet y ID band on, Allergy Band on, Call device within reach, Bed in low position, Wheels locked, Upper/Half-Length side-rails up, Phone within reach, personal items within reach [facility] 01-30-2024 Functional Status ID band on, Allergy Band on, Call device within reach, Bed in low position, Wheels locked, Upper/Half-Length side-rails up, Safety level maintained [facility] 06-23-2023 Functional Status Assistive Device None [facility] 06-23-2023 Functional Status Independent [facility] 11-04-2022 Functional Status Safety Checks q2hrs Performed Other: 7am-6pm [facility] 11-04-2022 Functional Status Supervised 1 Main [facility]22 Functional Status Identified as high risk, Fall ID band on, Room located near nursing station, Door open, Non-Slip footwear [facility] 11-04-2022 Functional Status [facility] 11-04-2022 [facility] Status [facility] 11-03-2022 Functional Status Mod I [facility] 11-02-2022 Functional Status Dinner Percent 100 [facility] 11-02-2022 Functional Status Single level home [facility] 11-02-2022 Functional Status Mod I [facility] 11-02-2022 Functional Status Demonstrates C orrect Call Light Use Yes [facility] 11-01-2022 Functional Status Independent [facility] 09-20-2022 Functional Status Repositions self [facility] 09-20-2022 Functional Status [facility] 09-20-2022 Functional Status Supervised [facility] 09-20-2022 Functional Status [facility] 09-20-2022 Functional Status Sensory Deficits None A [facility] 09-19-2022 Functional Status Room check performed [facility] 09-19-2022 Functional Status [place] [facility] 07[facility] Functional Status Room check performed [facility] 07-09-2022 Functional Status [place] [facility] 07-09-2022 Functional Status SCD Removed/Of f bilateral knee high [facility] 07-09-2022 Functional Status [place] telles [facility] 07-08-2022 Functional Status [place] [facility] 07-08-2022 Functional Status [place] [facility] 07-08-2022 Functional Status Reason SCD Rem braulio/Off Patient refused [facility] 07-08-2022 Functional Status [facility] Functional Status [place] [facility] 07-07-2022 Functional Status Moderate assistance 1 A [facility] 07-06-2022 Functional Status [place] [facility] [place] 07-05-2022 Functional Status Supervised 7 [place] [facility] [place] 07-05-2022 Functional Status 75 [facility] [place] 07-05-2022 Functional Status Independent [facility] [place] 07-05-2022 Functional Status [facility] [place] 07-04-2022 Functional Status [facility] [place] 07-04-2022 Functional Status [facility] [place] 07-04-2022 Functional Status 100 [place] [facility] [place] 07-03-2022 Functional Status [facility] [place] 07-03-2022 Functional Status [facility] [place] 07-02-2022 Functional Status [facility] [place] 07-02-2022 Functional Status [facility] [place] 07-02-2022 Functional Status Apartment [facility] [place] 07-02-2022 Functional Status [facility] [place] [place] 07-01-2022 Functional Status Sensory Deficits None A [facility] 07-01-2022 Functional Status Poor [facility] 06-30-2022 Functional Status Independent [facility] [place] [place] 06-30-2022 Functional Status Awake [facility] 07-21-2021 Functional Status [facility] Mental Status Date Assessment Result Facility 04-16-2024 Mental Status Oriented x 4 [facility] 02-10-2024 Mental Status Oriented x 4 [facility] 02-10-2024 [facility] Status [facility] 02-09-2024 [facility] 02-09-[facility] 02-01-2024 Mental Status Orientation Oriented x 4 [facility] 01-30-2024 Mental Status Oriented x 4 [facility] 06-23-2023 Mental Status Orientation Oriented x 4 [facility] 06-23-2023 Mental Status [facility] 11-04-2022 Mental Status Orientation Asse ssment Oriented x 4 [facility] 11-04-2022 Mental Status Oriented x 4 [facility] 11-03-2022 [facility]22 Mental Status Orientation Oriented x 4 [facility] 09-20-2022 Mental Status [facility] 09-20-2022 Mental Status [facility] 09-19-2022 Mental Status Orientation Asse ssment Oriented x 4 [facility] 09-19-2022 Mental Status Oriented x 4, Follows simple commands [facility] 09-19-2022 Mental Status [facility] 07-09-2022 Mental Status Orientation Oriented x 4 [facility] 07-09-2022 Mental Status [facility] 07-08-2022 Mental Status [facility] 07-08-2022 Mental Status [facility] 07-08-2022 Mental Status [facility] 06-30-2022 Mental Status Orientation Oriented x 4 [facility] 06-30-2022 Mental Status [facility] 12-10-2021 Cognitive function Voice/Name [facility] Work Phone: 10-08-2021 Cognitive function Voice/Name [facility] Work Phone: 07-21-2021 Mental Status [facility] 07-21-2021 Mental Status [facility] Clinical Notes 02-24-2021 to 04-16-2024 Note Date & Type Note Facility 04-16-2024 Hospital Discharge instructions Patient Education 04/16/2024 09:48:46 Understanding Lumbar Radiculopathy Understanding Lumbar Radiculopathy Lumbar radiculopathy is irritation or inflammation of a nerve root in the low back. It causes symptoms that spread out from the back down one or both legs. To understand this condition, it helps to understand the parts of the spine: Vertebrae. These are bones that stack to form the spine. The lumbar spine contains the 5 bottom vertebrae. Disks. These are soft pads of tissue between the vertebrae. They act as shock absorbers for the spine. Spinal canal. This is a tunnel formed within the stacked vertebrae. In the lumbar spine, nerves run through this canal. Nerves. These branch off and leave the spinal canal, traveling out to parts of the body. As they leave the spinal canal, nerves pass through openings between the vertebrae. The nerve root is the part of the nerve that is closest to the spinal canal. Sciatic nerve. This is a large nerve formed from several nerve roots in the low back. This nerve extends down the back of the leg to the foot. With lumbar radiculopathy, nerve roots in the low back become irritated. This leads to pain and symptoms. The sciatic nerve is commonly involved, so the condition is often called sciatica. What causes lumbar radiculopathy? Aging, injury, poor posture, extra body weight, and other issues can lead to problems in the low back. These problems may then irritate nerve roots. They include: Damage to a disk in the lumbar spine. The damaged disk may then press on nearby nerve roots. Degeneration from wear and tear, and aging. This can lead to narrowing (stenosis) of the openings between the vertebrae. The narrowed openings press on nerve roots as they leave the spinal canal. Unstable spine. This is when a vertebra slips forward. It can then press on a nerve root. Other, less common things can put pressure on nerves in the low back. These include diabetes, infection, or a tumor. Symptoms of lumbar radiculopathy These include: Pain in the low back Pain, numbness, tingling, or weakness that travels into the buttocks, hip, groin, or leg Muscle spasms Treatment for lumbar radiculopathy In most cases, your healthcare provider will first try treatments that help relieve symptoms. These may include: Prescription and [id number] pain medicines. These help relieve pain, swelling, and irritation. Limits on positions and activities that increase pain. But lying in bed or avoiding all movement is only recommended for a short period of time. Physical therapy, including exercises and stretches. This helps decrease pain and increase movement and function. Steroid shots into the lower back. This may help relieve symptoms for a time. Weight-loss program. If you are overweight, losing extra pounds may help relieve symptoms. In some cases, you may need surgery to fix the underlying problem. This depends on the cause, the symptoms, and how long the pain has lasted. Possible complications Over time, an irritated and inflamed nerve may become damaged. This may lead to long-lasting (permanent) numbness or weakness in your legs and feet. If symptoms change suddenly or get worse, be sure to let your healthcare provider know. When to call your healthcare provider Call your healthcare provider right away if you have any of these: New pain or pain that gets worse New or increasing weakness, tingling, or numbness in your leg or foot Problems controlling your bladder or bowel [id number] [employer]. [address] [place] [address]11. All rights reserved. This information is not intended as a substitute for professional medical care. Always follow your healthcare professional's instructions. 04/16/2024 09:48:45 Sciatica Sciatica Sciatica is a condition that causes pain in the lower back that spreads down into the buttock, hip, and leg. Sometimes the leg pain can happen without any back pain. Sciatica happens when a spinal nerve is irritated or has pressure put on it as comes out of the spinal canal in the lower back. This most often happens when a bulge or rupture of a nearby spinal disk presses on the nerve. Sciatica can also be caused by a narrowing of the spinal canal (spinal stenosis) or spasm of the muscle in the buttocks that the sciatic nerve passes through (pyriform muscle). Sciatica is also called lumbar radiculopathy. Sciatica may begin after a sudden twisting or bending force, such as in a car accident. Or it can happen after a simple awkward movement. In either case, muscle spasm often also happens. Muscle spasm makes the pain worse. A healthcare provider makes a diagnosis of sciatica from your symptoms and a physical exam. Unless you had an injury from a car accident or fall, you usually won t have X-rays taken at this time. This is because the nerves and disks in your back can t be seen on an X-ray. If the provider sees signs of a compressed nerve, you will need to schedule an MRI scan as an outpatient. Signs of a compressed nerve include loss of strength in a leg. Most sciatica gets better with medicine, exercise, and physical therapy. If your symptoms continue after at least 3 months of medical treatment, you may need surgery or injections to your lower back. Home care Follow these tips when caring for yourself at home: You may need to stay in bed the first few days. But as soon as possible, begin sitting up or walking. This will help you avoid problems that come from staying in bed for long periods. When in bed, try to find a position that is comfortable. A firm mattress is best. Try lying flat on your back with pillows under your knees. You can also try lying on your side with your knees bent up toward your chest and a pillow between your knees. Avoid sitting for long periods. This puts more stress on your lower back than standing or walking. Use heat from a hot shower, hot bath, or heating pad to help ease pain. Massage can also help. You can also try using an ice pack. You can make your own ice pack by putting ice cubes in a plastic bag. Wrap the bag in a thin towel. Try both heat and cold to see which works best. Use the method that feels best for 20 minutes several times a day. You may use acetaminophen or ibuprofen to ease pain, unless another pain medicine was prescribed. Note: If you have chronic liver or kidney disease, talk with your healthcare provider before taking these medicines. Also talk with your provider if you ve had a stomach ulcer or gastrointestinal bleeding. Use safe lifting methods. Don t lift anything heavier than 15 pounds until all of the pain is gone. Follow-up care Follow up with your healthcare provider, or as advised. You may need physical therapy or additional tests. If X-rays were taken, a radiologist will look at them. You will be told of any new findings that may affect your care. When to seek medical advice Call your healthcare provider right away if any of these occur: Pain gets worse even after taking prescribed medicine Weakness or numbness in 1 or both legs or hips Numbness in your groin or genital area You can t control your bowel or bladder Fever Redness or swelling over your back or spine [id number] [employer]. [address] [place] [address], [place] [address]. All rights reserved. This information is not intended as a substitute for professional medical care. Always follow your healthcare professional's instructions. Follow Up Care 04/16/2024 09:14:55 With:Pain management as scheduled Address: When: Unknown [facility] 04-16-2024 Note Discharge Instructions Thank you for allowing [facility] to assist you with your healthcare needs. The following is important discharge information regarding your hospital visit. Diagnosis from Today's Visit Groin pain Sciatica What to Do Next Instructions from Your Care Team No qualifying data available. Post Acute Orders No qualifying data available. You Need to Schedule the Following Appointments Follow Up with Pain management as scheduled Allergies Bee Stings(Severe) Difficulty breathing morphine(Severe) Anaphylaxis Eggs (Mild) Nausea and vomiting Brintellix HYDROcodone aspirin calcium carbonate Unknown codeine Amnesia, Altered mental status flu vaccines Unknown gabapentin Abnormal muscle function influenza virus vaccine, inactivated penicillin propoxyphene Medications Please ask your primary doctor or pharmacist before taking any other medication not listed, including over the counter drugs, herbal medications, vitamins and or supplements as they may interact with your home medications. What How Much When Instructions Last Dose New diclofenac topical (diclofenac 1% topical gel) 1 application Topical Four (4) times a day Printed Prescription Unchanged albuterol (albuterol MDI (90 mcg/ inh) CFC free inhalation aerosol) 2 puff(s) by inhalation Every 4 hours as needed for as needed for wheezing Unchanged albuterol-ipratropium (DuoNeb) 3 Milliliter by inhalation Every 2 Hours as needed for Shortness of breath (SOB) Unchanged allopurinol (allopurinol 100 mg oral tablet) 1 tab(s) by mouth Two (2) times a day Unchanged atenolol (atenolol 50 mg oral tablet) 1 tab(s) by mouth Once a day (in the morning) Unchanged atorvastatin (atorvastatin 80 mg oral tablet) 1 tab(s) by mouth Every day can be done in pill pack from next month Unchanged bimatoprost ophthalmic (Lumigan 0.01% ophthalmic solution) 1 Drops Both eyes Daily at bedtime Unchanged calcium-vitamin D (calcium-vitamin D 600 mg-5 mcg (200 intl units) oral capsule) 1 cap by mouth With lunch Unchanged cefepime (Maxipime) 2 gram(s) IV Push Every 12 hours Unchanged cholecalciferol (Vitamin D3 1250 mcg (50,000 intl units) oral capsule) 1 cap by mouth Every week Unchanged colchicine (colchicine 0.6 mg oral capsule) 1 cap by mouth Once a day as needed for Gout pain Unchanged colestipol (Colestid 1 g oral tablet) 2 tab(s) by mouth Two (2) times a day Unchanged desvenlafaxine (desvenlafaxine (as succinate) 50 mg oral tablet, extended release) 1 tab(s) by mouth Once a day Unchanged diclofenac (diclofenac sodium 75 mg oral delayed release tablet) 1 tab(s) by mouth Two (2) times a day Unchanged DME (DME MISCellaneous) See instructions freestyle jose raul 2 sensors 1 sensor every 14 days #2 sensors for 28 days and 3 refills E11.65. Unchanged doxepin (doxepin 100 mg oral capsule) 1 cap by mouth Daily at bedtime Unchanged furosemide (furosemide 20 mg oral tablet) 1 tab(s) by mouth Two (2) times a day Resume on Unchanged hydrochlorothiazide-valsartan (hydrochlorothiazide-valsartan 12.5 mg-80 mg oral tablet) 0.5 tab(s) by mouth Once a day Unchanged insulin degludec (Tresiba FlexTouch 200 units/ mL 3 mL subcutaneous solution) 76 unit(s) Subcutaneous Once a day Unchanged insulin lispro (HumaLOG) (HumaLOG KwikPen 100 units/ mL injectable PEN) 35 unit(s) Subcutaneous Three (3) times a day before meals Unchanged magnesium oxide (magnesium oxide 400 mg oral tablet) 1 tab(s) by mouth Once a day Unchanged Misc Medication (BD UF MINI PEN NEEDLE [id number]) use five times a day with INSULIN and if needed Unchanged Misc Medication (FREESTYLE JOSE RAUL 2 SENSOR) use as directed Unchanged Misc Medication (FREESTYLE LITE TEST STRIP) use 1 TEST STRIP to TEST BLOOD SUGAR four times a day Unchanged multivitamin with minerals (Therems M oral tablet) 1 tab(s) by mouth With lunch Unchanged omega-3 polyunsaturated fatty acids (Fish Oil 1000 mg oral capsule) 2 cap by mouth Two (2) times a day Unchanged omeprazole (omeprazole 40 mg oral delayed release capsule) 1 cap by mouth Once a day (in the morning) Unchanged oxybutynin (oxybutynin 10 mg/ 24 hr oral tablet, extended release) 1 tab(s) by mouth Once a day Unchanged oxyCODONE (oxyCODONE 5 mg oral tablet ( IMMEDIATE release )) 1 tab(s) by mouth Every 6 hours as needed for for pain Unchanged pregabalin 50 Milligram by mouth Three (3) times a day Unchanged semaglutide (Ozempic 8 mg/ 3 mL (2 mg dose) subcutaneous solution) 2 Milligram Subcutaneous Every week in the abdomen, thigh, or upper arm Unchanged vancomycin (vancomycin 2 g intravenous injection) IV Piggyback Once a day Unchanged vibegron (Gemtesa 75 mg oral tablet) 1 tab(s) by mouth Once a day Please take this list to your next doctor s visit. Bring all medications you take, including over the counter medications, herbals and other supplements with you to your doctor s visit. Patients and families are reminded to discard old lists and to update any records with all medication providers or retail pharmacies. Medication Leaflets diclofenac topical (dye KLOE fen ak TOP ik al) Aspercreme Arthritis Pain, DicloPrep-100, Motrin Arthritis Pain, Pennsaid, Rexaphenac, Salonpas Arthritis Pain Relief, Voltaren Arthritis Pain What is the most important information I should know about diclofenac topical? Diclofenac topical can increase your risk of fatal heart attack or stroke. Do not use this medicine just before or after heart bypass surgery (coronary artery bypass graft, or CABG). Diclofenac topical may also cause stomach or intestinal bleeding, which can be fatal. What is diclofenac topical? Diclofenac topical (for the skin) is used in adults to treat joint pain caused by osteoarthritis. This medicine is for use on the hands, wrists, elbows, knees, ankles, or feet. Diclofenac topical is not for use on any other body area (such as back, hip, or shoulder). Diclofenac topical solution is for use only on the knees. Diclofenac topical 3% gel is used to treat warty overgrowths of skin (actinic keratosis) on sun-exposed areas of the body. Diclofenac topical may also be used for purposes not listed in this medication guide. What should I discuss with my healthcare provider before using diclofenac topical? Diclofenac topical can increase your risk of fatal heart attack or stroke. Do not use this medicine just before or after heart bypass surgery (coronary artery bypass graft, or CABG). Diclofenac topical may also cause stomach or intestinal bleeding, which can be fatal. This can occur without warning, especially in older adults. You should not use diclofenac topical if you are allergic to it, or if you have: asthma, or a severe allergic reaction (sneezing, runny or stuffy nose, wheezing) after taking aspirin or another NSAID. Do not use diclofenac topical gel 3% if you have a skin condition such as eczema, a skin infection, moe or wounds. Tell your doctor if you have ever had: heart disease, high blood pressure, high cholesterol, smoking, diabetes; a heart attack, stroke, or blood clot; stomach problems such as heartburn, ulcers or bleeding; any other bleeding problems; a habit of drinking more than 3 alcoholic beverages per day; asthma; fluid retention; or liver or kidney disease. Do not use diclofenac topical during unless your doctor tells you to. Using an NSAID in the last 20 weeks can harm the unborn baby or cause complications. Ask a doctor if it is safe to breastfeed while using this medicine. It may be harder for you to get while you are using this medicine. How should I use diclofenac topical? Follow all directions on your prescription label and read all medication guides or instruction sheets. Use the lowest effective dose for your condition. Diclofenac topical is usually applied up to 2 to 4 times a day. Do not use this medicine more often or longer than directed. Your doctor will determine how long you should use diclofenac topical. Your dose needs may change if you switch to a different brand, strength, or form of this medicine. Avoid medication errors by using exactly as directed on the label, or as prescribed by your doctor. Wash your hands before and after applying this medicine, unless you are using it to treat a hand condition. Clean and dry the affected area before application. Use only a small amount of medicine, apply a thin layer over the affected area and rub in gently. If you use diclofenac topical for arthritis pain, make sure to use the included dosing card when applying the medicine. Do not use large amounts of diclofenac topical without medical advice. Do not take by mouth. Topical medicine is for use only on the skin. Read and carefully follow any Instructions for Use provided with your medicine. Ask your doctor or pharmacist if you do not understand these instructions. Do not bandage treated skin, expose it to heat, or exercise right after applying. Your skin may absorb the medicine, which could cause harmful effects. You should wait until diclofenac topical has dried out where it was applied before using cosmetics, sunscreen, lotions, insect repellant, or other medicated skin products. Do not apply diclofenac topical in the eyes and nose, to more than 2 body areas at the same time, to sports injuries, an open skin wound, on areas of infection, rash, burn, or peeling skin. Call your doctor if your symptoms do not improve, or if they get worse. You may not fully benefit from this medicine for up to 30 days if you use it for actinic keratosis, and up to 7 days if you use it for arthritis pain. Your blood may need to be tested often. Store at room temperature away from moisture and heat. Do not freeze. What happens if I miss a dose? Apply the medicine as soon as you can, but skip the missed dose if it is almost time for your next dose. Do not apply two doses at one time. What happens if I overdose? Seek emergency medical attention or call the Poison Help line at if anyone has accidentally swallowed the medicine. What should I avoid while using diclofenac topical? Ask a doctor or pharmacist before using other medicines for pain, fever, swelling, or cold/flu symptoms. They may contain ingredients similar to diclofenac topical (such as aspirin, ibuprofen, ketoprofen, or naproxen). Avoid smoking and drinking alcohol. It may increase your risk of stomach bleeding. Avoid bathing or showering for at least 30 minutes after applying diclofenac topical solution. Avoid letting treated skin areas come into contact with other people. Diclofenac topical could make you sunburn more easily. Avoid sunlight or tanning beds. Wear protective clothing and use sunscreen (SPF 30 or higher) when you are outdoors. Avoid getting this medicine in your eyes. If contact does occur, rinse with water. Call your doctor if you have eye irritation that lasts longer than 1 hour. What are the possible side effects of diclofenac topical? Get emergency medical help if you have signs of an allergic reaction (hives, sneezing, runny or stuffy nose, wheezing or trouble breathing, swelling in your face or throat) or a severe skin reaction (fever, sore throat, burning eyes, skin pain, red or purple skin rash with blistering and peeling). Stop using diclofenac and seek medical treatment if you have a serious drug reaction that can affect many parts of your body. Symptoms may include skin rash, fever, swollen glands, muscle aches, severe weakness, unusual bruising, or yellowing of your skin or eyes. Get emergency medical help if you have signs of a heart attack or stroke: chest pain spreading to your jaw or shoulder, sudden numbness or weakness on one side of the body, slurred speech, leg swelling, feeling short of breath. Also call your doctor at once if you have: any skin rash, no matter how mild; kidney or heart problems--swelling, urinating less, rapid weight gain, feeling tired or short of breath; high blood potassium--tingly feeling, chest pain, irregular heartbeats, loss of movement; high blood pressure--severe headache, blurred vision, pounding in your neck or ears; liver problems--loss of appetite, nausea, vomiting, stomach pain (upper right side), itching, dark urine, lili-colored stools, jaundice (yellowing of the skin or eyes); low red blood cells (anemia)--pale skin, unusual tiredness, feeling light-headed or short of breath, cold hands and feet; or signs of stomach bleeding--bloody or tarry stools, coughing up blood or vomit that looks like coffee grounds. Common side effects may include: skin redness, numbness or tingly feeling, itching, dryness, scaling, or peeling where the medicine was applied. This is not a complete list of side effects and others may occur. Call your doctor for medical advice about side effects. You may report side effects to FDA at 2-224-XYP-1334. What other drugs will affect diclofenac topical? Ask your doctor before using diclofenac topical if you take an antidepressant. Taking certain antidepressants with an NSAID may cause you to bruise or bleed easily. Diclofenac topical can harm your kidneys or liver, especially if you also use certain medicines for infections, control, high cholesterol, seizures, cancer, osteoporosis, organ transplant rejection, high blood pressure, or pain or arthritis (including Advil, Motrin, and Aleve). Tell your doctor about all your other medicines, especially: a blood thinner (warfarin, Coumadin, Jantoven); or steroid medicine (prednisone and others). This list is not complete and many other drugs may affect diclofenac. This includes prescription and koxx-ocw-qtxlmsg medicines, vitamins, and herbal products. Not all possible drug interactions are listed here. Where can I get more information? Your doctor or pharmacist can provide more information about diclofenac topical. Remember, keep this and all other medicines out of the reach of children, never share your medicines with others, and use this medication only for the indication prescribed. Every effort has been made to ensure that the information provided by [employer]. ('[employer]') is accurate, up-to-date, and complete, but no guarantee is made to that effect. Drug information contained herein may be time sensitive. [employer] information has been compiled for use by healthcare practitioners and consumers in the [place] and therefore [employer] does not warrant that uses outside of the [place] are appropriate, unless specifically indicated otherwise. [employer]'s drug information does not endorse drugs, diagnose patients or recommend therapy. [employer] drug information is an informational resource designed to assist licensed healthcare practitioners in caring for their patients and/or to serve consumers viewing this service as a supplement to, and not a substitute for, the expertise, skill, knowledge and judgment of healthcare practitioners. The absence of a warning for a given drug or drug combination in no way should be construed to indicate that the drug or drug combination is safe, effective or appropriate for any given patient. [employer] does not assume any responsibility for any aspect of healthcare administered with the aid of information [employer] provides. The information contained herein is not intended to cover all possible uses, directions, precautions, warnings, drug interactions, allergic reactions, or adverse effects. If you have questions about the drugs you are taking, check with your doctor, nurse or pharmacist. Copyright 1913-4390 [employer]. Version: 15.. Revision Date: 06/13/2023. Education Materials Understanding Lumbar Radiculopathy Lumbar radiculopathy is irritation or inflammation of a nerve root in the low back. It causes symptoms that spread out from the back down one or both legs. To understand this condition, it helps to understand the parts of the spine: Vertebrae. These are bones that stack to form the spine. The lumbar spine contains the 5 bottom vertebrae. Disks. These are soft pads of tissue between the vertebrae. They act as shock absorbers for the spine. Spinal canal. This is a tunnel formed within the stacked vertebrae. In the lumbar spine, nerves run through this canal. Nerves. These branch off and leave the spinal canal, traveling out to parts of the body. As they leave the spinal canal, nerves pass through openings between the vertebrae. The nerve root is the part of the nerve that is closest to the spinal canal. Sciatic nerve. This is a large nerve formed from several nerve roots in the low back. This nerve extends down the back of the leg to the foot. With lumbar radiculopathy, nerve roots in the low back become irritated. This leads to pain and symptoms. The sciatic nerve is commonly involved, so the condition is often called sciatica. What causes lumbar radiculopathy? Aging, injury, poor posture, extra body weight, and other issues can lead to problems in the low back. These problems may then irritate nerve roots. They include: Damage to a disk in the lumbar spine. The damaged disk may then press on nearby nerve roots. Degeneration from wear and tear, and aging. This can lead to narrowing (stenosis) of the openings between the vertebrae. The narrowed openings press on nerve roots as they leave the spinal canal. Unstable spine. This is when a vertebra slips forward. It can then press on a nerve root. Other, less common things can put pressure on nerves in the low back. These include diabetes, infection, or a tumor. Symptoms of lumbar radiculopathy These include: Pain in the low back Pain, numbness, tingling, or weakness that travels into the buttocks, hip, groin, or leg Muscle spasms Treatment for lumbar radiculopathy In most cases, your healthcare provider will first try treatments that help relieve symptoms. These may include: Prescription and qsvf-lec-hkqenoy pain medicines. These help relieve pain, swelling, and irritation. Limits on positions and activities that increase pain. But lying in bed or avoiding all movement is only recommended for a short period of time. Physical therapy, including exercises and stretches. This helps decrease pain and increase movement and function. Steroid shots into the lower back. This may help relieve symptoms for a time. Weight-loss program. If you are overweight, losing extra pounds may help relieve symptoms. In some cases, you may need surgery to fix the underlying problem. This depends on the cause, the symptoms, and how long the pain has lasted. Possible complications Over time, an irritated and inflamed nerve may become damaged. This may lead to long-lasting (permanent) numbness or weakness in your legs and feet. If symptoms change suddenly or get worse, be sure to let your healthcare provider know. When to call your healthcare provider Call your healthcare provider right away if you have any of these: New pain or pain that gets worse New or increasing weakness, tingling, or numbness in your leg or foot Problems controlling your bladder or bowel [id number] [employer]. [address] [place] [address], [place] [address]. All rights reserved. This information is not intended as a substitute for professional medical care. Always follow your healthcare professional's instructions. Sciatica Sciatica is a condition that causes pain in the lower back that spreads down into the buttock, hip, and leg. Sometimes the leg pain can happen without any back pain. Sciatica happens when a spinal nerve is irritated or has pressure put on it as comes out of the spinal canal in the lower back. This most often happens when a bulge or rupture of a nearby spinal disk presses on the nerve. Sciatica can also be caused by a narrowing of the spinal canal (spinal stenosis) or spasm of the muscle in the buttocks that the sciatic nerve passes through (pyriform muscle). Sciatica is also called lumbar radiculopathy. Sciatica may begin after a sudden twisting or bending force, such as in a car accident. Or it can happen after a simple awkward movement. In either case, muscle spasm often also happens. Muscle spasm makes the pain worse. A healthcare provider makes a diagnosis of sciatica from your symptoms and a physical exam. Unless you had an injury from a car accident or fall, you usually won t have X-rays taken at this time. This is because the nerves and disks in your back can t be seen on an X-ray. If the provider sees signs of a compressed nerve, you will need to schedule an MRI scan as an outpatient. Signs of a compressed nerve include loss of strength in a leg. Most sciatica gets better with medicine, exercise, and physical therapy. If your symptoms continue after at least 3 months of medical treatment, you may need surgery or injections to your lower back. Home care Follow these tips when caring for yourself at home: You may need to stay in bed the first few days. But as soon as possible, begin sitting up or walking. This will help you avoid problems that come from staying in bed for long periods. When in bed, try to find a position that is comfortable. A firm mattress is best. Try lying flat on your back with pillows under your knees. You can also try lying on your side with your knees bent up toward your chest and a pillow between your knees. Avoid sitting for long periods. This puts more stress on your lower back than standing or walking. Use heat from a hot shower, hot bath, or heating pad to help ease pain. Massage can also help. You can also try using an ice pack. You can make your own ice pack by putting ice cubes in a plastic bag. Wrap the bag in a thin towel. Try both heat and cold to see which works best. Use the method that feels best for 20 minutes several times a day. You may use acetaminophen or ibuprofen to ease pain, unless another pain medicine was prescribed. Note: If you have chronic liver or kidney disease, talk with your healthcare provider before taking these medicines. Also talk with your provider if you ve had a stomach ulcer or gastrointestinal bleeding. Use safe lifting methods. Don t lift anything heavier than 15 pounds until all of the pain is gone. Follow-up care Follow up with your healthcare provider, or as advised. You may need physical therapy or additional tests. If X-rays were taken, a radiologist will look at them. You will be told of any new findings that may affect your care. When to seek medical advice Call your healthcare provider right away if any of these occur: Pain gets worse even after taking prescribed medicine Weakness or numbness in 1 or both legs or hips Numbness in your groin or genital area You can t control your bowel or bladder Fever Redness or swelling over your back or spine [phone] [employer]. [address] [place] [address]. All rights reserved. This information is not intended as a substitute for professional medical care. Always follow your healthcare professional's instructions. Additional Information VACCINATE! IT SAVES LIVES! Members of the community who have not yet received the COVID-19 vaccine and would like to receive it can visit one of [facility] vaccine clinics. There are many vaccine clinic locations within the [facility]. For locations and available times, please visit [email or web address] It is important to note that some COVID mobile vaccine clinics are held outdoors and may be canceled in rainy or stormy conditions. To learn more about pediatric vaccinations (ages 5-11), we invite you to visit the [facility] webpage. https://www.[email or web address].org/pag es/6015-Wdeio-Twnhjnnfmpo-Frequent wx-Jyuvk-Oplciwxuh.html To learn more about the COVID-19 vaccine, we invite you to visit the CDC website for a list of frequently asked questions. https://www.cdc.gov/coronavirus/-ncov/vaccines/faq.html [facility] Patient Portal Access Instructions: Stay connected with your healthcare team and access your personal medical information anytime with the [facility] Patient Portal. If you would like a full copy of your medical records please contact the [facility] Medical Records Department Tuesday through Tuesday between 8a.m. and 4:30p.m. Please follow the directions below to access the portal: 1.Access the email account you provided upon registration to the [facility].2.Look for an invitation email from [facility].3.Open the email and access the invitation link: Accept Invitation to [facility]4.Fill in the required rodriges to create your account. Sign into [email or web address] with your username and password that you created in the above steps to stay up to date. You can then view a summary of results, a summary of your visits, and the ability to download your summaries to your computer or send the information securely to a physician. Remember that your healthcare information is confidential, so carefully consider who you will allow to register on the [facility] Patient Portal for access to your information. You can also access the [facility] Patient Portal on the [employer] trudy. Simply click on Health Records under Health Data and then click on the [employer] logo. HOW TO SAFELY DISPOSE OF PRESCRIPTION MEDICATIONS Please use one of the following methods to safely dispose of your unused medications. 1.Use a drug disposal kit: the drug disposal pouch allows you to safely discard your old and unused drugs. Ask your nurse to give you one when you are discharged.2.Visit a local take-back location: Many local pharmacies and police departments have programs that collect old and unwanted prescription drugs. Call your local pharmacy or go to http://bit.ly/6L9Gv8b to find one close to you.3.Make use of household items: Use cat litter or old coffee grounds to dispose medications if other options are not available. Mix your drugs with these household products, seal them in an airtight container and throw it into the garbage. Call [facility]: [phone] to be sure your drugs can be disposed of in this way. Some medicines may require a different approach.4.Never flush your medications down the toilet. IF YOU HAVE BEEN PRESCRIBED AN OPIOIDS FOR PAIN If you have been prescribed an opioid (such as hydrocodone, oxycodone or morphine), it is critical to understand the possible side effects and risks of opioid pain medications. Even when taken as directed, opioids can have several side effects including: Tolerance, meaning you might need to take more of a medication for the same pain relief. Nausea, vomiting and/or constipation. Sleepiness, dizziness, dry mouth, confusion, depression or itching. Physical dependence, meaning you have withdrawal symptoms when a medication is stopped ? this can develop within a few days. KNOW YOUR RESPONSIBILITIES It is important to know exactly how much and how often to take the opioid pain medications you are prescribed. Never take opioids in higher amounts or more often than prescribed. Do not combine opioids with alcohol or other drugs that cause drowsiness, such as benzodiazepines, also known as benzos, including diazepam and alprazolam, muscle relaxants or sleep aids. Never sell or share prescription opioids. This is illegal. Store opioids in a secure place and out of reach of others (including children, family, friends and visitors). The last page(s) of this document has been signed and retained as a CHART COPY Signatures Patient Education Materials Understanding Lumbar Radiculopathy Sciatica Medication Leaflets diclofenac topical My discharge plan and instructions have been reviewed and explained to me and IJENNIFER PAMELA A understand my current condition and have read and understand these discharge instructions. I have received a written copy of the plan/instructions. If I have questions, I am aware that I should contact my doctor. Patient/Vault Person Signature: Date/Time: Relationship to Patient: ___ Witness Name/Signature: Date/Time: [facility] 04-05-2024 Note . MICRO - Microbiology PROCEDURE: Acid Fast Bacilli Culture w Stain if Ind [*1] SOURCE: Biopsy BODY SITE: COLLECTED DATE/TIME: 02/06/2024 13:30 EDT RECEIVED DATE/TIME: 02/06/2024 15:23 EDT START DATE/TIME: 02/06/2024 15:24 EDT FREE TEXT SOURCE: bone FINAL REPORTS Final Report [] Verified Date/Time/Personnel: 04/05/2024 09:35 EST No growth of Acid Fast Bacilli PRELIMINARY REPORTS Preliminary Report [] Verified Date/Time/Personnel: 03/22/2024 09:09 EST No growth of Acid Fast Bacilli to date. Final report to follow at 8 weeks. STAINS AFS [] Verified Date/Time/Personnel: 02/07/2024 11:41 EDT Acid Fast Smear from Concentrated Specimen: Negative Performing Locations *1: This test was performed at: [facility], [address] [place] [address], [id number] , [facility] 04-02-2024 Note ORIGINAL EXAMINATION: MRI OF THE LUMBAR SPINE WITHOUT AND WITH CONTRAST 04/02/2024 12:08 pm TECHNIQUE: Multiplanar multisequence MRI of the lumbar spine was performed without and with the administration of intravenous contrast. COMPARISON: MRI lumbar spine 02/03/2024 HISTORY: ORDERING SYSTEM PROVIDED HISTORY: Reason for Exam: osteomyelitis/discitis FINDINGS: BONES/ALIGNMENT: There is chronic moderate L1 compression fracture again noted. There is enhancement and abnormal signal of the L2 and L3 vertebral bodies compatible with osteomyelitis. The overall enhancement is mildly decreased. There is inflammatory change in enhancement again seen of the adjacent bilateral medial psoas musculature, decreased from prior study. There is anterior epidural cellulitis again noted at the L2 and L3 levels, mildly decreased. There is enhancement of the L4 right pedicle and right facet articular processes, with synovial enhancement of the facet joint, decreased from prior study. There is moderate loss of disc height, mildly increased from prior study. There is moderate compression of the thecal sac again noted. SPINAL CORD: The conus terminates normally. SOFT TISSUES: No abnormal enhancement is seen of the lumbar spine. No paraspinal mass identified. L1-L2: There is mild-moderate ligamentum flavum and facet hypertrophy. There is disc bulge with endplate osteophytes and bilateral foraminal extension, left greater than right. There is mild central canal stenosis. There is mild-moderate left neuroforaminal stenosis. L2-L3: There is moderate ligamentum flavum and facet hypertrophy. There is disc bulge with endplate osteophytes and bilateral foraminal extension, left greater than right with impingement of the exiting left L2 nerve root. There is moderate-severe right neuroforaminal stenosis with impingement of the exiting right L2 nerve root. There is mild-moderate central canal stenosis. L3-L4: There is moderate-severe ligamentum flavum and facet hypertrophy. There is disc bulge with endplate osteophytes and bilateral foraminal extension. There is moderate-severe central canal stenosis and lateral recess stenosis with impingement of bilateral traversing L4 nerve roots there is left foraminal 5 mm disc protrusion and impingement of the exiting left L3 nerve root. There is moderate left neuroforaminal stenosis. There is mild-moderate right neuroforaminal stenosis. . L4-L5: There is moderate-marked ligamentum flavum and facet hypertrophy. There is disc bulge with endplate osteophytes and bilateral foraminal extension. There is moderate central canal and lateral recess stenosis with impingement of bilateral traversing L5 nerve roots. There is mild-moderate left neuroforaminal stenosis. There is moderate right neuroforaminal stenosis. L5-S1: There is moderate-marked ligamentum flavum and facet hypertrophy. There is disc bulge with endplate osteophytes and bilateral foraminal extension. There is mild central canal stenosis. There is mild moderate lateral recess stenosis. There is mild-moderate bilateral neuroforaminal stenosis. Small synovial cyst noted at anterior aspect of left facet joint with mild impingement of exiting left L5 nerve root. IMPRESSION: 1. There is enhancement and abnormal signal of the L2 and L3 vertebral bodies compatible with osteomyelitis. The overall enhancement is mildly decreased. There is inflammatory change in enhancement again seen of the adjacent bilateral medial psoas musculature, decreased from prior study. There is anterior epidural cellulitis again noted at the L2 and L3 levels, mildly decreased. 2. There is enhancement of the L4 right pedicle and right facet articular processes, with synovial enhancement of the facet joint, decreased from prior study. 3. Multilevel degenerative changes again noted. At L2-L3, there is disc bulge with endplate osteophytes and bilateral foraminal extension, left greater than right with impingement of the exiting left L2 nerve root. There is moderate-severe right neuroforaminal stenosis with impingement of the exiting right L2 nerve root. There is mild-moderate central canal stenosis. 4. At L3-L4, there is moderate-severe central canal stenosis and lateral recess stenosis with impingement of bilateral traversing L4 nerve roots. There is left foraminal 5 mm disc protrusion and impingement of the exiting left L3 nerve root. 5. At L4-L5, there is moderate central canal and lateral recess stenosis with impingement of bilateral traversing L5 nerve roots. Interpreted by: José Luis Mancia Preliminary Report By: José Luis Mancia Electronically signed By José Luis Mancia Dictated Date: 04/02/2024 7:05:55 PM Prelim Date: 04/02/2024 7:32:29 PM Sign Date: 04/02/2024 7:32:29 PM Ordering Provider: [facility] 03-06-2024 Note . MICRO - Microbiology PROCEDURE: Fungal Culture with Stain if Ind [*1] SOURCE: Biopsy BODY SITE: COLLECTED DATE/TIME: 02/06/2024 13:30 EDT RECEIVED DATE/TIME: 02/06/2024 15:23 EDT START DATE/TIME: 02/06/2024 15:24 EDT FREE TEXT SOURCE: FINAL REPORTS Final Report [] Verified Date/Time/Personnel: 03/06/2024 08:12 EST No fungus isolated in 4 weeks. PRELIMINARY REPORTS Preliminary Report [] Verified Date/Time/Personnel: 02/09/2024 13:41 EDT No fungus isolated to date. Final report to follow. STAINS FUNSM [] Verified Date/Time/Personnel: 02/07/2024 11:42 EDT No fungal elements observed by calcofluor white stain. Performing Locations *1: This test was performed at: [facility], [address] [place] [address], [facility] , [place] [id number] Note . MICRO - Microbiology PROCEDURE: Culture Wound Deep Aerobe/Anaerobe w Gram Stain [*1] SOURCE: Lesion BODY SITE: Vertebra COLLECTED DATE/TIME: 02/06/2024 13:30 EDT RECEIVED DATE/TIME: 02/06/2024 15:23 EDT START DATE/TIME: 02/06/2024 15:24 EDT FREE TEXT SOURCE: FINAL REPORTS Final Report [] Verified Date/Time/Personnel: 02/13/2024 07:33 EDT No aerobes or anaerobes isolated at 7 days. PRELIMINARY REPORTS Preliminary Report [] Verified Date/Time/Personnel: 02/07/2024 09:07 EDT No growth to date STAINS GS [] Verified Date/Time/Personnel: 02/06/2024 16:32 EDT No organisms seen. Performing Locations *1: This test was performed at: [facility], [address] [place] [address], [facility]- , [facility] 02-10-2024 Discharge summary Date of Service 02/10/2024 Discharge Diagnosis Osteomyelitis of vertebra, lumbar region (M46.26 - ICD-10-CM) Body mass index [BMI] 40.0-44.9, adult (Z68.41 - ICD-10-CM) Discitis, unspecified, site unspecified (M46.40 - ICD-10-CM) Chronic obstructive pulmonary disease, unspecified (J44.9 - ICD-10-CM) Type 2 diabetes mellitus with diabetic chronic kidney disease (E11.22 - ICD-10-CM) Hypertensive chronic kidney disease with stage 1 through stage 4 chronic kidney disease, or unspecified chronic kidney disease (I12.9 - ICD-10-CM) Morbid (severe) obesity due to excess calories (E66.01 - ICD-10-CM) Type 2 diabetes mellitus with other specified complication (E11.69 - ICD-10-CM) Depression, unspecified (F32.A - ICD-10-CM) Hyperlipidemia, unspecified (E78.5 - ICD-10-CM) Discitis, unspecified, lumbar region (M46.46 - ICD-10-CM) Personal history of malignant carcinoid tumor of bronchus and lung (Z85.110 - ICD-10-CM) Acquired absence of lung [part of] (Z90.2 - ICD-10-CM) Irritable bowel syndrome, unspecified (K58.9 - ICD-10-CM) Obstructive sleep apnea (adult) (pediatric) (G47.33 - ICD-10-CM) Chronic kidney disease, stage 3 unspecified (N18.30 - ICD-10-CM) Additional Orders: Other status: CBC,02/10/24 5:00:00 EDT, Next AM Draw (one day only), Blood, Once, Preferred Lab: [facility], Stop date 02/10/24 5:00:00 EDT(Complete) Other status: CMP,02/10/24 5:00:00 EDT, Next AM Draw (one day only), Blood, Once, Preferred Lab: [facility], Stop date 02/10/24 5:00:00 EDT(Complete) Ordered: Discharge,02/10/24 11:35:00 EDT, Discharged to: Home Ordered: Discharge Activity,NO activity restrictions, Be careful lifting, 02/10/24 11:35:00 EDT Ordered: Discharge Diet,Type of Diet: Regular, Calories Permitted: 1800 kcal, 02/10/24 11:35:00 EDT Other status: Magnesium Level,02/10/24 5:01:00 EDT, Next AM Draw (one day only), Blood, Once, Preferred Lab: [facility], Stop date 02/10/24 5:01:00 EDT(Complete) Ordered: Maxipime,Dose : 2 gram(s) = 20 mL, IV Push, q12h, 0 Refill(s), 134.1 Ordered: Tresiba FlexTouch 200 units/mL 3 mL subcutaneous solution,Dose : 76 unit(s) =, Subcutaneous, qDay, 0 Refill(s) Ordered: vancomycin 2 g intravenous injection,IV Piggyback, qDay, 0 Refill(s), 134.1 Hospital Course 68-year-old female with history of hypertension, hyperlipidemia, diabetes type 2 that is insulin requiring, 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 Patient had been having increasing lumbar pain with no definitive diagnosis. Eventually she presented to the emergency room and a CT scan showed evidence of discitis and osteomyelitis L2-L3. Patient was then transferred to this hospital. Patient seen by neurosurgery as well as infectious disease. Patient was started on cefepime and vancomycin which she continued throughout hospitalization. She was afebrile, had no elevated white count at the time of discharge. Sugars were well-controlled on her home diabetes regimen. Neurosurgery did not think patient required an acute surgical intervention but will follow-up repeat MRI in 2 months. Infectious disease recommended an IR aspiration and bone biopsy and these were done on 02/05. Pathologic specimen labeled bone was in fact L2-L3 disc specimen which just showed inflamed cartilage. At the time of discharge wound culture was negative for growth. Patient was felt to be stable for discharge. There were no medication changes at the time of discharge other than patient will require a PICC line and vancomycin and cefepime with home health. Patient to have 6 weeks of IV therapy with follow-up with infectious disease after 5 weeks. As above we will also follow-up with neurosurgery and have a repeat MRI. Patient will also need to follow-up with her primary care provider within 5 to 7 days. Allergies Bee Stings(Severe) Difficulty breathing morphine(Severe) Anaphylaxis Eggs (Mild) Nausea and vomiting Brintellix HYDROcodone aspirin calcium carbonate Unknown codeine Amnesia, Altered mental status flu vaccines Unknown gabapentin Abnormal muscle function influenza virus vaccine, inactivated penicillin propoxyphene Consults Consult to Physician - Ordered -- 02/01/24 21:01:00 EDT, CESAR WOO BA, MD, Routine, Lumbar osteo/discitis Consult to Physician - Ordered -- 02/01/24 21:52:00 EDT, AMALIA BARRERA MD, Routine, lumbar osteo/discitis Physical Exam Vitals and Measurements T: 36.5 C (Oral) TMIN: 36.4 C (Oral) TMAX: 36.8 C (Oral) HR: 84 RR: 18 BP: 118/65 SpO2: 95% Weight Dosing Weight: 134.1 kg (02/01/24) Exam: Awake and alert, no distress CVS: regular, no murmur Lungs: clear to auscultation Abdomen: soft, non distended, obese, no tenderness Ext: no LE edema Code Status Code Status - Ordered -- 02/01/24 20:58:00 EDT, Full Code, Constant Order Admission Date 02/01/2024 Discharge Date 02/10/2024 Patient Instructions MRI of the lumbar spine has been scheduled at [facility] on 04/02/2024 at 10:45 AM. This will be completed in the radiology department which is located on the ground floor. Hospital follow-up visit scheduled with Dr. Barrera of [facility] on 04/06/2024 at 8 AM. [facility] office is located in the physicians office building on the fifth floor. Medications New Prescription cefepime (Maxipime)2 gram(s) IV Push every 12 hours. vancomycin (vancomycin 2 g intravenous injection)IV Piggyback once a day. Changed insulin degludec (Tresiba FlexTouch 200 units/mL 3 mL subcutaneous solution)76 unit(s) Subcutaneous once a day. Unchanged albuterol (albuterol MDI (90 mcg/inh) CFC free inhalation aerosol)2 puff(s) by inhalation every 4 hours as needed as needed for wheezing. albuterol-ipratropium (DuoNeb)3 Milliliter by inhalation Every 2 Hours as needed Shortness of breath (SOB). allopurinol (allopurinol 100 mg oral tablet)1 tab(s) by mouth two (2) times a day. atenolol (atenolol 50 mg oral tablet)1 tab(s) by mouth once a day (in the morning). atorvastatin (atorvastatin 80 mg oral tablet)1 tab(s) by mouth every day. can be done in pill pack from next month. Refills: 3. bimatoprost ophthalmic (Lumigan 0.01% ophthalmic solution)1 Drops Both eyes daily at bedtime. calcium-vitamin D (calcium-vitamin D 600 mg-5 mcg (200 intl units) oral capsule)1 cap by mouth with lunch. cholecalciferol (Vitamin D3 1250 mcg (50,000 intl units) oral capsule)1 cap by mouth every week. Refills: 1. colchicine (colchicine 0.6 mg oral capsule)1 cap by mouth once a day as needed Gout pain. colestipol (Colestid 1 g oral tablet)2 tab(s) by mouth two (2) times a day. desvenlafaxine (desvenlafaxine (as succinate) 50 mg oral tablet, extended release)1 tab(s) by mouth once a day. diclofenac (diclofenac sodium 75 mg oral delayed release tablet)1 tab(s) by mouth two (2) times a day. doxepin (doxepin 100 mg oral capsule)1 cap by mouth daily at bedtime. furosemide (furosemide 20 mg oral tablet)1 tab(s) by mouth two (2) times a day. Resume on 09/23/22. hydrochlorothiazide-valsartan (hydrochlorothiazide-valsartan 12.5 mg-80 mg oral tablet)0.5 tab(s) by mouth once a day. insulin lispro (HumaLOG) (HumaLOG KwikPen 100 units/mL injectable PEN)35 unit(s) Subcutaneous three (3) times a day before meals. Refills: 3. magnesium oxide (magnesium oxide 400 mg oral tablet)1 tab(s) by mouth once a day. Misc Medication (BD UF MINI PEN NEEDLE [id number])use five times a day with INSULIN and if needed. Misc Medication (FREESTYLE JOSE RAUL 2 SENSOR)use as directed. Misc Medication (FREESTYLE LITE TEST STRIP)use 1 TEST STRIP to TEST BLOOD SUGAR four times a day. multivitamin with minerals (Therems M oral tablet)1 tab(s) by mouth with lunch. omega-3 polyunsaturated fatty acids (Fish Oil 1000 mg oral capsule)2 cap by mouth two (2) times a day. omeprazole (omeprazole 40 mg oral delayed release capsule)1 cap by mouth once a day (in the morning). oxybutynin (oxybutynin 10 mg/24 hr oral tablet, extended release)1 tab(s) by mouth once a day. oxyCODONE (oxyCODONE 5 mg oral tablet ( IMMEDIATE release ))1 tab(s) by mouth every 6 hours as needed for pain. [id number] Milligram by mouth three (3) times a day. semaglutide (Ozempic 8 mg/3 mL (2 mg dose) subcutaneous solution)2 Milligram Subcutaneous every week. in the abdomen, thigh, or upper arm. Refills: 3. vibegron (Gemtesa 75 mg oral tablet)1 tab(s) by mouth once a day. Discontinued ciprofloxacin (ciprofloxacin 500 mg oral tablet)TAKE 1 TABLET BY MOUTH TWICE A DAY. Follow Up Follow Up with DO NOT LEAVE THE HOSPITAL WITHOUT YOUR ANTIBIOTICS AND SUPPLIES Follow Up with AGNES MALYS When:Within 1-2 days Where:[address] [facility] [place] [address]- Business (1) Additional Information: Please call the office to schedule a hospital follow-up appointment. Follow Up with [facility] Additional Information: This is your home healthcare provider. Please call if you have questions related to home healthcare. Follow Up with [facility] will be providing your IV antibiotics and supplies. Call [phone] for questions or concerns. When:Within 1-2 days Follow Up with Please return balance of HOME MED upon discharge When:Within 1-2 days Follow Up with AMALIA BARRERA MD, Neurosurgery When:04/06/2024 08:00 AM EST Where:[address] [facility] [address] [facility] [place] [address]- [phone] Follow Up Appointments No qualifying data available. Follow Up Labs/Studies Discharge Labs No Follow-up Labs Discharge Studies No Follow-up Studies Discharge Diet Discharge Diet - Ordered -- Type of Diet: Regular, Calories Permitted: 1800 kcal, 02/10/24 11:35:00 EDT Discharge Activity Discharge Activity - Ordered -- NO activity restrictions, Be careful lifting, 02/10/24 11:35:00 EDT Condition on Discharge Stable Discharge Disposition Home Information Provided To Patient Time Spent > 30 min Digitally Signed by MARCIN SAXENA MD on 02/10/2024 04:18 PM [facility] 02-10-2024 Hospital Discharge instructions Patient Education 02/10/2024 12:20:46 Diskitis Diskitis Diskitis is the inflammation and infection of the disks in the spine. Disks are soft structures that cushion the bones of the spine (vertebrae). This is not a common condition. Diskitis most often affects the disks of the lower back (lumbar disks). It may also affect disks in the neck (cervical disks) or upper back (thoracic disks). What are the causes? This condition may be caused by: An infection that spreads from an infection in another part of the body through the bloodstream. The most common sources are the skin, soft tissue, urinary tract, and respiratory tract. An infection in another area of the spine. When diskitis develops, it is often accompanied by infection-induced inflammation of the bones (osteomyelitis) surrounding the spine. An infection after a procedure or trauma to the spine. This may include surgery, lumbar puncture, a nerve block, and epidural analgesia. What increases the risk? People at higher risk of developing this condition include: Children. People with a weak disease-fighting system (immune system) or immune system disorders. People with diabetes. People with cancer. People with HIV or AIDS. People who use intravenous drugs. People with liver or kidney disease. What are the signs or symptoms? Back pain or stomach pain is the most common symptom of diskitis. Walking, standing, and sitting may be painful. Children may refuse to crawl or walk. Other symptoms may include: Back stiffness. Trouble standing or rising from a sitting position. Irritability. Fever. How is this diagnosed? This condition may be diagnosed based on: Your symptoms and medical history. A physical exam. Imaging tests, such as: ?X-ray of the spine. ?MRI of the spine. ?A bone scan. Blood tests. How is this treated? This condition may be treated with: Bed rest for a short time. Medicines, such as: ?Antibiotics to treat a possible bacterial infection. ?Anti-inflammatory medicines. ?Pain-relieving medicines. A brace to keep your back from moving. Surgery. Surgery is not normally needed but may be used if the infection is severe or if rest and medicines do not help. Follow these instructions at home: If you have a brace: Wear the brace as told by your health care provider. Remove it only as told by your health care provider. Keep the brace clean. If the brace is not waterproof: ?Do not let it get wet. ?Cover it with a watertight covering when you take a bath or a shower. Medicines Take syaw-ozc-xfsxwqt and prescription medicines only as told by your health care provider. If you were prescribed an antibiotic medicine, take it as told by your health care provider. Do not stop taking the antibiotic even if you start to feel better. Do not drive or use heavy machinery while taking prescription pain medicine. If you are taking prescription pain medicine, take actions to prevent or treat constipation. Your health care provider may recommend that you: ?Drink enough fluid to keep your urine pale yellow. ?Eat foods that are high in fiber, such as fresh fruits and vegetables, whole grains, and beans. ?Limit foods that are high in fat and processed sugars, such as fried or sweet foods. ?Take an bewq-onq-qshvydw or prescription medicine for constipation. General instructions Rest as told by your health care provider. Return to your normal activities as told by your health care provider. Do not use any products that contain nicotine or tobacco, such as cigarettes and e-cigarettes. These can delay healing during treatment. If you need help quitting, ask your health care provider. Keep all follow-up visits as told by your health care provider. This is important. Contact a health care provider if you: Have difficulty walking or standing. Have persistent back pain that is not relieved by medicines. Are having side effects from medicines. Develop a fever. Get help right away if you: Lose feeling in your legs or arms, or your legs or arms become weak. Have numbness or tingling in your legs or arms. Lose control of bowel or bladder function (incontinence). Summary Disks are soft structures that cushion the bones of the spine. Diskitis is a rare condition that causes inflammation and infection of the disks in the spine, especially the lower back (lumbar disks). One cause of diskitis is an infection that spreads from an infection in another part of the body through the bloodstream. Back pain or stomach pain is the most common symptom of diskitis. Walking, standing, and sitting may be painful. Treatment may include bed rest, antibiotic medicine, anti-inflammatory medicine, pain-relieving medicine, a brace to keep your back from moving, or surgery. This information is not intended to replace advice given to you by your health care provider. Make sure you discuss any questions you have with your health care provider. Document Released: 03/05/2005 Document Revised: 03/20/2018 Document Reviewed: 03/20/2018 [employer] Patient Education 2020 [employer]. Follow Up Care 02/01/2024 16:02:52 With:DO NOT LEAVE THE HOSPITAL WITHOUT YOUR ANTIBIOTICS AND SUPPLIES Address: When: Unknown With:AGNES HERNANDEZ Address: [address] [place] [address]- Business (1) When:1-2 days Comments:Please call the office to schedule a hospital follow-up appointment. With:[facility] Address: When: Unknown Comments:This is your home healthcare provider. Please call if you have questions related to home healthcare. With:[facility] will be providing your IV antibiotics and supplies. Call [phone] for questions or concerns. Address: When:1-2 days With:Please return balance of HOME MED upon discharge Address:Unknown When:1-2 days With:AMALIA BARRERA MD, Neurosurgery Address: [address] [place] [phone] When:04/06/2024 08:00:00 [facility] 02-10-2024 Note Discharge Instructions Thank you for allowing [facility] to assist you with your healthcare needs. The following is important discharge information regarding your hospital visit. Your Care Team AGNES HERNANDEZ DO What to do next Instructions From Your Doctor MRI of the lumbar spine has been scheduled at [facility] on 04/02/2024 at 10:45 AM. This will be completed in the radiology department which is located on the ground floor. Hospital follow-up visit scheduled with Dr. Barrera of [facility] on 04/06/2024 at 8 AM. [facility] office is located in the physicians office building on the fifth floor. Scheduled Follow-Up Appointments Appointment Type When With Where Contact Information StatusMRI Spine Lumbar w/ + w/o Contrast 04/02/2024 11:00 AM [facility] Radiology [phone] Confirmed NS OV 04/06/2024 08:00 AM AMALIA WANG MD Neurosurgery [address] [place] [phone] Confirmed ENDO OV 04/26/2024 02:15 PM JENNI BENAVIDEZ MD [facility] Endo [address] [facility] [address] [place] [address]- [phone] Confirmed Follow Up Appointments Follow Up with AGNES HERNANDEZ When:Within 1-2 days Where:[address] [place] [address] [place] [address]- Business (1) Additional Information: Please call the office to schedule a hospital follow-up appointment. Follow Up with [facility] Additional Information: This is your home healthcare provider. Please call if you have questions related to home healthcare. Follow Up with [facility] will be providing your IV antibiotics and supplies. Call [phone] for questions or concerns. When:Within 1-2 days Follow Up with Please return balance of HOME MED upon discharge When:Within 1-2 days Follow Up with AMALIA BARRERA MD, Neurosurgery When:04/06/2024 08:00 AM EST Where:[address] [facility] [address] [facility] [place] [address]- [phone] The Following Activity and Diet Have Been Ordered for You Discharge Activity - Ordered -- NO activity restrictions, Be careful lifting, 02/10/24 11:35:00 EDT Discharge Diet - Ordered -- Type of Diet: Regular, Calories Permitted: 1800 kcal, 02/10/24 11:35:00 EDT Someone Will Contact You Regarding These Home Health Referrals No home referrals have been ordered for you. No one will call you. Allergies Bee Stings(Severe) Difficulty breathing morphine(Severe) Anaphylaxis Eggs (Mild) Nausea and vomiting Brintellix HYDROcodone aspirin calcium carbonate Unknown codeine Amnesia, Altered mental status flu vaccines Unknown gabapentin Abnormal muscle function influenza virus vaccine, inactivated penicillin propoxyphene Medications Please ask your primary doctor or pharmacist before taking any other medication not listed, including over the counter drugs, herbal medications, vitamins and or supplements as they may interact with your home medications. What How Much When Instructions Last Dose New cefepime (Maxipime) 2 gram(s) IV Push Every 12 hours New vancomycin (vancomycin 2 g intravenous injection) IV Piggyback Once a day Changed insulin degludec (Tresiba FlexTouch 200 units/ mL 3 mL subcutaneous solution) 76 unit(s) Subcutaneous Once a day Unchanged albuterol (albuterol MDI (90 mcg/ inh) CFC free inhalation aerosol) 2 puff(s) by inhalation Every 4 hours as needed for as needed for wheezing Unchanged albuterol-ipratropium (DuoNeb) 3 Milliliter by inhalation Every 2 Hours as needed for Shortness of breath (SOB) Unchanged allopurinol (allopurinol 100 mg oral tablet) 1 tab(s) by mouth Two (2) times a day Unchanged atenolol (atenolol 50 mg oral tablet) 1 tab(s) by mouth Once a day (in the morning) Unchanged atorvastatin (atorvastatin 80 mg oral tablet) 1 tab(s) by mouth Every day can be done in pill pack from next month Unchanged bimatoprost ophthalmic (Lumigan 0.01% ophthalmic solution) 1 Drops Both eyes Daily at bedtime Unchanged calcium-vitamin D (calcium-vitamin D 600 mg-5 mcg (200 intl units) oral capsule) 1 cap by mouth With lunch Unchanged cholecalciferol (Vitamin D3 1250 mcg (50,000 intl units) oral capsule) 1 cap by mouth Every week Unchanged colchicine (colchicine 0.6 mg oral capsule) 1 cap by mouth Once a day as needed for Gout pain Unchanged colestipol (Colestid 1 g oral tablet) 2 tab(s) by mouth Two (2) times a day Unchanged desvenlafaxine (desvenlafaxine (as succinate) 50 mg oral tablet, extended release) 1 tab(s) by mouth Once a day Unchanged diclofenac (diclofenac sodium 75 mg oral delayed release tablet) 1 tab(s) by mouth Two (2) times a day Unchanged doxepin (doxepin 100 mg oral capsule) 1 cap by mouth Daily at bedtime Unchanged furosemide (furosemide 20 mg oral tablet) 1 tab(s) by mouth Two (2) times a day Resume on Unchanged hydrochlorothiazide-valsartan (hydrochlorothiazide-valsartan 12.5 mg-80 mg oral tablet) 0.5 tab(s) by mouth Once a day Unchanged insulin lispro (HumaLOG) (HumaLOG KwikPen 100 units/ mL injectable PEN) 35 unit(s) Subcutaneous Three (3) times a day before meals Unchanged magnesium oxide (magnesium oxide 400 mg oral tablet) 1 tab(s) by mouth Once a day Unchanged Misc Medication (BD UF MINI PEN NEEDLE [id number]) use five times a day with INSULIN and if needed Unchanged Misc Medication (FREESTYLE JOSE RAUL 2 SENSOR) use as directed Unchanged Misc Medication (FREESTYLE LITE TEST STRIP) use 1 TEST STRIP to TEST BLOOD SUGAR four times a day Unchanged multivitamin with minerals (Therems M oral tablet) 1 tab(s) by mouth With lunch Unchanged omega-3 polyunsaturated fatty acids (Fish Oil 1000 mg oral capsule) 2 cap by mouth Two (2) times a day Unchanged omeprazole (omeprazole 40 mg oral delayed release capsule) 1 cap by mouth Once a day (in the morning) Unchanged oxybutynin (oxybutynin 10 mg/ 24 hr oral tablet, extended release) 1 tab(s) by mouth Once a day Unchanged oxyCODONE (oxyCODONE 5 mg oral tablet ( IMMEDIATE release )) 1 tab(s) by mouth Every 6 hours as needed for for pain Unchanged pregabalin 50 Milligram by mouth Three (3) times a day Unchanged semaglutide (Ozempic 8 mg/ 3 mL (2 mg dose) subcutaneous solution) 2 Milligram Subcutaneous Every week in the abdomen, thigh, or upper arm Unchanged vibegron (Gemtesa 75 mg oral tablet) 1 tab(s) by mouth Once a day What When Comments Stop Taking ciprofloxacin (ciprofloxacin 500 mg oral tablet) TAKE 1 TABLET BY MOUTH TWICE A DAY Please take this list to your next doctor s visit. Bring all medications you take, including over the counter medications, herbals and other supplements with you to your doctor s visit. Patients and families are reminded to discard old lists and to update any records with all medication providers or retail pharmacies. Education Materials Diskitis Diskitis is the inflammation and infection of the disks in the spine. Disks are soft structures that cushion the bones of the spine (vertebrae). This is not a common condition. Diskitis most often affects the disks of the lower back (lumbar disks). It may also affect disks in the neck (cervical disks) or upper back (thoracic disks). What are the causes? This condition may be caused by: An infection that spreads from an infection in another part of the body through the bloodstream. The most common sources are the skin, soft tissue, urinary tract, and respiratory tract. An infection in another area of the spine. When diskitis develops, it is often accompanied by infection-induced inflammation of the bones (osteomyelitis) surrounding the spine. An infection after a procedure or trauma to the spine. This may include surgery, lumbar puncture, a nerve block, and epidural analgesia. What increases the risk? People at higher risk of developing this condition include: Children. People with a weak disease-fighting system (immune system) or immune system disorders. People with diabetes. People with cancer. People with HIV or AIDS. People who use intravenous drugs. People with liver or kidney disease. What are the signs or symptoms? Back pain or stomach pain is the most common symptom of diskitis. Walking, standing, and sitting may be painful. Children may refuse to crawl or walk. Other symptoms may include: Back stiffness. Trouble standing or rising from a sitting position. Irritability. Fever. How is this diagnosed? This condition may be diagnosed based on: Your symptoms and medical history. A physical exam. Imaging tests, such as: ? X-ray of the spine. ? MRI of the spine. ? A bone scan. Blood tests. How is this treated? This condition may be treated with: Bed rest for a short time. Medicines, such as: ? Antibiotics to treat a possible bacterial infection. ? Anti-inflammatory medicines. ? Pain-relieving medicines. A brace to keep your back from moving. Surgery. Surgery is not normally needed but may be used if the infection is severe or if rest and medicines do not help. Follow these instructions at home: If you have a brace: Wear the brace as told by your health care provider. Remove it only as told by your health care provider. Keep the brace clean. If the brace is not waterproof: ? Do not let it get wet. ? Cover it with a watertight covering when you take a bath or a shower. Medicines Take usqp-bgb-gbaiujo and prescription medicines only as told by your health care provider. If you were prescribed an antibiotic medicine, take it as told by your health care provider. Do not stop taking the antibiotic even if you start to feel better. Do not drive or use heavy machinery while taking prescription pain medicine. If you are taking prescription pain medicine, take actions to prevent or treat constipation. Your health care provider may recommend that you: ? Drink enough fluid to keep your urine pale yellow. ? Eat foods that are high in fiber, such as fresh fruits and vegetables, whole grains, and beans. ? Limit foods that are high in fat and processed sugars, such as fried or sweet foods. ? Take an azac-fpt-ncrtiqy or prescription medicine for constipation. General instructions Rest as told by your health care provider. Return to your normal activities as told by your health care provider. Do not use any products that contain nicotine or tobacco, such as cigarettes and e-cigarettes. These can delay healing during treatment. If you need help quitting, ask your health care provider. Keep all follow-up visits as told by your health care provider. This is important. Contact a health care provider if you: Have difficulty walking or standing. Have persistent back pain that is not relieved by medicines. Are having side effects from medicines. Develop a fever. Get help right away if you: Lose feeling in your legs or arms, or your legs or arms become weak. Have numbness or tingling in your legs or arms. Lose control of bowel or bladder function (incontinence). Summary Disks are soft structures that cushion the bones of the spine. Diskitis is a rare condition that causes inflammation and infection of the disks in the spine, especially the lower back (lumbar disks). One cause of diskitis is an infection that spreads from an infection in another part of the body through the bloodstream. Back pain or stomach pain is the most common symptom of diskitis. Walking, standing, and sitting may be painful. Treatment may include bed rest, antibiotic medicine, anti-inflammatory medicine, pain-relieving medicine, a brace to keep your back from moving, or surgery. This information is not intended to replace advice given to you by your health care provider. Make sure you discuss any questions you have with your health care provider. Document Released: 03/05/2005 Document Revised: 03/20/2018 Document Reviewed: 03/20/2018 [employer] Patient Education 2020 [employer]. Additional Information VACCINATE! IT SAVES LIVES! Members of the community who have not yet received the COVID-19 vaccine and would like to receive it can visit one of [facility] vaccine clinics. There are many vaccine clinic locations within the [facility]. For locations and available times, please visit [email or web address].[place].gov/. It is important to note that some COVID mobile vaccine clinics are held outdoors and may be canceled in rainy or stormy conditions. To learn more about pediatric vaccinations (ages 5-11), we invite you to visit the [facility] webpage. [email or web address]/pag [email or web address]-[email or web address]-[email or web address] pe-[email or web address].[email or web address] To learn more about the COVID-19 vaccine, we invite you to visit the CDC website for a list of frequently asked questions.https://www.cdc.gov/argelia navirus/2019-ncov/vaccines/faq.htm [facility] Patient Portal Access Instructions: Stay connected with your healthcare team and access your personal medical information anytime with the [facility] Patient Portal. Please follow the directions below to create your [facility] account: 1.Access the email account you provided upon registration to the hospital/physician office.2.Look for an invitation email from [facility].3.Open the email and access the invitation link: Accept Invitation to [facility].4.Fill in the required rodriges to create your account. To access your account, visit [email or web address]. Click the blue button labeled Access Patient Portal and then log in with the username and password that you created in the steps above. You will be able to view your test results, lab results, a summary of your visits, upcoming appointments and more. There is also a convenient messaging option where you can send secure messages to your provider. In addition, you will have the ability to download any documents or summaries to your computer and/or send the information securely to a physician. Remember that your healthcare information is confidential, so carefully consider who you will allow to register on the [facility] Patient Portal for access to your information. You can also access the [facility] Patient Portal on the [facility] trudy. Simply click on Patient Portal and then log into your account. If you would like to receive a full copy of your medical records, please contact the [facility] Medical Records Department by calling [phone], Tuesday through Tuesday between 8 a.m. and 4:30 p.m. HOW TO SAFELY DISPOSE OF PRESCRIPTION MEDICATIONS Please use one of the following methods to safely dispose of your unused medications. 1.Use a drug disposal kit: the drug disposal pouch allows you to safely discard your old and unused drugs. Ask your nurse to give you one when you are discharged.2.Visit a local take-back location: Many local pharmacies and police departments have programs that collect old and unwanted prescription drugs. Call your local pharmacy or go to http://bit.ly/6U7Gv2n to find one close to you.3.Make use of household items: Use cat litter or old coffee grounds to dispose medications if other options are not available. Mix your drugs with these household products, seal them in an airtight container and throw it into the garbage. Call [facility]: [phone] to be sure your drugs can be disposed of in this way. Some medicines may require a different approach.4.Never flush your medications down the toilet. IF YOU HAVE BEEN PRESCRIBED AN OPIOID FOR PAIN If you have been prescribed an opioid (such as hydrocodone, oxycodone or morphine), it is critical to understand the possible side effects and risks of opioid pain medications. Even when taken as directed, opioids can have several side effects including: Tolerance, meaning you might need to take more of a medication for the same pain relief. Nausea, vomiting and/or constipation. Sleepiness, dizziness, dry mouth, confusion, depression or itching. Physical dependence, meaning you have withdrawal symptoms when a medication is stopped, can develop within a few days. KNOW YOUR RESPONSIBILITIES It is important to know exactly how much and how often to take the opioid pain medications you are prescribed. Never take opioids in higher amounts or more often than prescribed. Do not combine opioids with alcohol or other drugs that cause drowsiness, such as benzodiazepines, also known as benzos, including diazepam and alprazolam, muscle relaxants or sleep aids. Never sell or share prescription opioids. This is illegal. Store opioids in a secure place and out of reach of others (including children, family, friends and visitors). The last page of this document has been signed and retained as a CHART COPY. Signatures Patient Education Materials Diskitis Medication Leaflets My discharge plan and instructions have been reviewed and explained to me and I,GLORIA RODRIGUEZ understand my current condition and have read and understand these discharge instructions. I have received a written copy of the plan/instructions. If I have questions, I am aware that I should contact my doctor. Patient/Vault Person Signature: Date/Time: Relationship to Patient: ___ Witness Name/Signature: Date/Time: [facility] 02-09-2024 Procedure note VASCULAR ACCESS TEAM POST PROCEDURE NOTE PROCEDURE: Peripherally Inserted Central Catheter (PICC) INDICATION: Shelter Antibiotics DETAILS: Consult for PICC placement received. Chart reviewed. Informed consent was obtained and verified prior to the procedure. The procedure was performed using a cap, mask, sterile gloves, sterile gown, and full-body fenestrated drape. Hand Hygiene was performed and the site was prepped with hospital approved cutaneous antisepsis. The patient was in a supine position in the hospital bed. A critical pause and confirm was performed just prior to the procedure with the patient's identity confirmed using two patient identifiers and confirming the procedure of the PICC placement. The patient was prepped and draped in the usual sterile fashion. 5 Fr. Double Lumen PICC was inserted at bedside under sterile technique. Vascular access was obtained with ultrasound guidance. All lumens were aspirated and flushed with 0.9 normal saline. Sterile needless connector caps were attached to each lumen. The PICC was fixated to the skin with a stat-lock and a sterile CHG all-in-one dressing applied. PICC flushes easily with good blood return. Patient tolerated well. PICC and CLABSI education packet provided. CUTANEOUS ANTISEPSIS: ChloraPrep (2% chlorhexidine gluconate and 70% v/v isopropyl alcohol) ANESTHESIA: Local using 4 mL Lidocaine 1% ACCESS VESSEL: Right Brachial CATHETER LENGTH: 45cm INTERNAL LENGTH: 45cm EXTERNAL LENGTH: 0cm ARM CIRCUMFRENCE: 46cm Lot #: [id number] COMPLICATIONS: None INSERTED BY: Delmy Ponce RN BSN PLAN: PICC placement confirmed in lower SVC per ECG technology with Maximum-P wave and absence of negative deflection.Flushes easily with good blood return. Ok to use PICC now. Primary RN notified of PICC placement. Digitally Signed by Delmy Ponce RN on 02/09/2024 05:18 PM [facility] 02-09-2024 Note Date of Service 02/09/2024 Subjective Patient looks good today. Yesterday she said she was up and walking was able to get to and from the bathroom with no assistance. For me she did move to the side of the bed, stand all completely on her own. Was able to easily walk to the doorway but did rely on handholds for stability. Some difficulty standing completely upright but is able to do it. Objective Vitals and Measurements T: 36.7 C (Oral) TMIN: 36.6 C (Oral) TMAX: 36.7 C (Oral) HR: 78 RR: 16 BP: 126/65 SpO2: 97% Intake and Output 7AM Yesterday to 7AM Today Intake and Output (Last 24 hours) Intake Oral Intake 1700.00 Supplement Intake 0.00 Output Urine Voided 0.00 Stool Count 1.00 Urine Count 7.00 Diaper Count 1.00 Total Summary Total Intake 1700.00 Total Output 0.00 Fluid Balance 1700.00 Physical Exam Exam: Awake and alert, no distress CVS: regular, no murmur Lungs: clear to auscultation Abdomen: soft, non distended, obese, no tenderness Weight Dosing Weight: 134.1 kg (02/01/24) Medications Medications (33) Active Scheduled: (27) allopurinol 100 mg tablet 100 mg 1 tab(s), Oral, BID atenolol 50 mg tablet 50 mg 1 tab(s), Oral, qAM atorvastatin 80 mg tablet 80 mg 1 tab(s), Oral, Daily calcium-vitamin D 500 mg-200 units tablet 1 tab(s), Oral, with lunch cefepime IVP syringe 2 gram(s) 20 mL, IV Push, q12h cholecalciferol 1250 mcg capsule (Vit D3 50,000 unit(s)) 1,250 mcg 1 cap(s), Oral, qWeek colestipol 1 gm tablet 2 gram(s) 2 tab(s), Oral, BID desvenlafaxine 50 mg ER tablet 50 mg 1 tab(s), Oral, qDay doxepin 100 mg Capsule 100 mg 1 cap(s), Oral, qHS enoxaparin 40 mg/ 0.4mL syringe 40 mg 0.4 mL, Subcutaneous, qDay furosemide 20 mg tablet 20 mg 1 tab(s), Oral, BID Gemtesa 75 mg oral tablet 75 mg, Oral, qDay insulin degludec 200 units/mL syringe 3 mL 76 unit(s) 0.38 mL, Subcutaneous, qDay insulin lispro 100 units/mL Soln (3 mL) Give 0-10 units/dose, Subcutaneous, TIDAC latanoprost ophthalmic 0.005% Solution 1 drop(s), Eyes, both, qHS lidocaine 1% (MPF) 2 mL vial pf 30 mg 3 mL, Intradermal, prep pharm losartan 25 mg tablet 25 mg 1 tab(s), Oral, qDay losartan 50 mg tablet 50 mg 1 tab(s), Oral, qDay magnesium oxide 400 mg Tablet 400 mg 1 tab(s), Oral, qDay Misc communication order Home Meds Verified, Miscellaneous, qDay multivitamin (Myadec) with minerals Therapeutic Multiple Vitamins with Minerals Tablet 1 tab(s), Oral, with lunch [id number] ethyl esters 1000 mg capsule 2,000 mg 2 cap(s), Oral, BID omeprazole [address] capsule 40 mg 1 cap(s), Oral, qAM oxybutynin 5 mg ER tablet 10 mg 2 tab(s), Oral, qDay polyethylene glycol 3350 - UD packet 17 gram(s) 15 mL, Oral, qDay pregabalin 50 mg capsule 50 mg 1 cap(s), Oral, TID vancomycin PMX 2,000 mg 500 mL, IV Piggyback, qDay Continuous: (0) PRN: (6) acetaminophen 325 mg Tablet 650 mg 2 tab(s), Oral, q4h albuterol - ipratropium 2.5 mg-0.5 mg/3 mL Inhal Elba UD 3 mL, Inhalation, q4hRT colchicine 0.6 mg Tablet 0.6 mg 1 tab(s), Oral, qDay dextrose 50% Solution Disp syringe 50 mL 12.5 gram(s) 25 mL, IV Push, AsDirected ondansetron 2 mg/ 1 mL 2 mL INJ 4 mg 2 mL, IV Push, q4h oxycodone 5 mg tablet (immediate release) 5 mg 1 tab(s), Oral, q6hr Lab Results 02/08 07:19 WBC: 6.1 Hgb: 13.4 Hct: 40.1 Platelet: 106 L Neutrophil %: 52.8 Glucose Level: 126 H Sodium Level: 139 Potassium Level: 4.3 BUN: 18.0 Creatinine Lvl (s): 0.74 02/07 06:49 WBC: 6.9 Hgb: 14.0 Hct: 41.1 Platelet: 111 L Neutrophil %: 49.4 L Glucose Level: 119 H Sodium Level: 139 Potassium Level: 4.0 BUN: 17.0 Creatinine Lvl (s): 0.71 EKG No qualifying data available. Assessment/Plan 1. Lumbar osteomyelitis/discitis. No need for acute surgical intervention. Bone biopsy and aspiration awaiting final cultures. No growth at this time. Currently on cefepime and vancomycin. Patient will need intravenous antibiotics on discharge, PICC line ordered, script for vanc and cefepime by ID in chart. Anticipate discharge tomorrow and antibiotics delivered Tuesday by home nursing. 2. History of diabetes. Patient is on her home dose of insulin and sugars are stable. Sliding scale if needed. Patient still insists on being discharged home. She does have power and stamina necessary for getting to the bathroom and easy transfers. Discussed again possible short-term SNF to maximize her strength but patient would rather go home. Anticipate discharge tomorrow. Digitally Signed by MARCIN SAXENA MD on 02/09/2024 04:35 PM [facility] 02-09-2024 Infectious disease Progress note Date of Service 02/09/2024 Objective Vitals and Measurements T: 36.6 C (Oral) TMIN: 36.6 C (Oral) TMAX: 36.7 C (Oral) HR: 75 RR: 16 BP: 105/60 SpO2: 97% Physical Exam Chart reviewed, patient examined. Patient appears alert and oriented x3, tends to talk off topic at times, does FSC, resting in bed. No c/o NVD, reports passing much gas but no BM yesterday. Patient with 0 documented BMs in the last 24 hours. Denies SOB at this time, reports occasional nonproductive cough. Denies chills or sweats. Reports improving back pain overall, reports BLE numbness/tingling is at baseline. Reports right lower back/hip discomfort again this morning, although reports being able to ambulate in her room this morning without difficulty. Denies dysuria or any troubles urinating-BSC emptied for small amount of darker yellow concentrated urine. No other new complaints this AM, patient reports feeling improvement overall. Respirations easy and nonlabored, 97% on RA. Patient has remained afebrile for the last 24 hours. Labs: ESR 33 CRP <0.4 Vanco Trough 11.7 FOCUSED ASSESSMENT: CVS: Regular S1S2 LUNGS: Clear diminished bilaterally, denies SOB at this time, occasional nonproductive cough, on RA ABDOMEN: Rounded, soft, nontender, + bowel sounds, passing gas, 0 documented BMs in the last 24 hours SKIN: No rashes noted, pale in overall coloring, diffuse ecchymosis/scratches noted, lower back procedure site-gauze dressing in place INCISIONS/DRESSINGS: Left lower back gauze dressing loose but clean and intact EXTREMITIES: +1 BLE/pedal edema, BLE numbness/tingling-baseline, improving weakness overall LINES/TUBES/DRAINS: RH IV dressing dry & intact, no drainage or erythema at site. BSC emptied for small amount of darker concentrated yellow urine. CURRENT ANTIBIOTICS: Cefepime 2g IV Q12h 02/01 - present Vanco 2g IV Q24h 01/31 - present CULTURE RESULTS/YANDY: 02/01 Blood Cultures 05/20 no growth to date -F 02/05 Wound Deep Culture (vertebra) -P No growth to date 02/01 AFB Culture -P Acid Fast Smear from Concentrated Specimen: Negative 02/01 Fungal Culture -P No fungal elements observed by calcofluor white stain Weight Dosing Weight: 134.1 kg (02/01/24) Medications Medications (33) Active Scheduled: (27) allopurinol 100 mg tablet 100 mg 1 tab(s), Oral, BID atenolol 50 mg tablet 50 mg 1 tab(s), Oral, qAM atorvastatin 80 mg tablet 80 mg 1 tab(s), Oral, Daily calcium-vitamin D 500 mg-200 units tablet 1 tab(s), Oral, with lunch cefepime IVP syringe 2 gram(s) 20 mL, IV Push, q12h cholecalciferol 1250 mcg capsule (Vit D3 50,000 unit(s)) 1,250 mcg 1 cap(s), Oral, qWeek colestipol 1 gm tablet 2 gram(s) 2 tab(s), Oral, BID desvenlafaxine 50 mg ER tablet 50 mg 1 tab(s), Oral, qDay doxepin 100 mg Capsule 100 mg 1 cap(s), Oral, qHS enoxaparin 40 mg/ 0.4mL syringe 40 mg 0.4 mL, Subcutaneous, qDay furosemide 20 mg tablet 20 mg 1 tab(s), Oral, BID Gemtesa 75 mg oral tablet 75 mg, Oral, qDay insulin degludec 200 units/mL syringe 3 mL 76 unit(s) 0.38 mL, Subcutaneous, qDay insulin lispro 100 units/mL Soln (3 mL) Give 0-10 units/dose, Subcutaneous, TIDAC latanoprost ophthalmic 0.005% Solution 1 drop(s), Eyes, both, qHS lidocaine 1% (MPF) 2 mL vial pf 30 mg 3 mL, Intradermal, prep pharm losartan 25 mg tablet 25 mg 1 tab(s), Oral, qDay losartan 50 mg tablet 50 mg 1 tab(s), Oral, qDay magnesium oxide 400 mg Tablet 400 mg 1 tab(s), Oral, qDay Misc communication order Home Meds Verified, Miscellaneous, qDay multivitamin (Myadec) with minerals Therapeutic Multiple Vitamins with Minerals Tablet 1 tab(s), Oral, with lunch [id number]-4-govr ethyl esters 1000 mg capsule 2,000 mg 2 cap(s), Oral, BID omeprazole [address] capsule 40 mg 1 cap(s), Oral, qAM oxybutynin 5 mg ER tablet 10 mg 2 tab(s), Oral, qDay polyethylene glycol 3350 - UD packet 17 gram(s) 15 mL, Oral, qDay pregabalin 50 mg capsule 50 mg 1 cap(s), Oral, TID vancomycin PMX 2,000 mg 500 mL, IV Piggyback, qDay Continuous: (0) PRN: (6) acetaminophen 325 mg Tablet 650 mg 2 tab(s), Oral, q4h albuterol - ipratropium 2.5 mg-0.5 mg/3 mL Inhal Elba UD 3 mL, Inhalation, q4hRT colchicine 0.6 mg Tablet 0.6 mg 1 tab(s), Oral, qDay dextrose 50% Solution Disp syringe 50 mL 12.5 gram(s) 25 mL, IV Push, AsDirected ondansetron 2 mg/ 1 mL 2 mL INJ 4 mg 2 mL, IV Push, q4h oxycodone 5 mg tablet (immediate release) 5 mg 1 tab(s), Oral, q6hr Lab Results 02/08 07:19 WBC: 6.1 Hgb: 13.4 Hct: 40.1 Platelet: 106 L Neutrophil %: 52.8 Glucose Level: 126 H Sodium Level: 139 Potassium Level: 4.3 BUN: 18.0 Creatinine Lvl (s): 0.74 02/07 06:49 WBC: 6.9 Hgb: 14.0 Hct: 41.1 Platelet: 111 L Neutrophil %: 49.4 L Glucose Level: 119 H Sodium Level: 139 Potassium Level: 4.0 BUN: 17.0 Creatinine Lvl (s): 0.71 Imaging Results and Diagnostics IR Aspiration Lumbar Disc W/Guide Result Date: February 06, 2024 Verified By: KERON DUNAWAY MD CLINICAL STATEMENT: IMPRESSION: Successful CT-guided percutaneous 18-G core biopsy of the L2/Q0nxtvnozbhyyqug disc. MRI Spine Lumbar w/ + w/o Contrast Result Date: February 03, 2024 Verified By: DORA ROMERO DO CLINICAL STATEMENT: IMPRESSION: 1. Findings consistent with discitis/osteomyelitis at L2-3.2. Extensive prevertebral soft tissue edema and postcontrast enhancement atL2-3.3. Extensive postcontrast enhancement and fluid signal within the right L2-3facet joint compatible with facet synovitis, likely infectious.4. Multilevel degenerative changes of the lumbar spine with severe spinalcanal stenosis at L3-4 and moderate spinal canal stenosis at L4-5.5. Multilevel neural foraminal stenoses as described above. Problem List 1. L2-L3 osteomyelitis/discitis 2. Elevated ESR 33 3. 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 Chronic abdominal pain, back pain 6. Type 2 diabetes Digitally Signed by Sandra Chapman RN on 02/09/2024 10:22 AM [facility] 02-09-2024 Infectious disease Progress note Date of Service 02/09/2024 Objective Vitals and Measurements T: 36.6 C (Oral) TMIN: 36.6 C (Oral) TMAX: 36.7 C (Oral) HR: 75 RR: 16 BP: 105/60 SpO2: 97% Physical Exam Chart reviewed, patient examined. Patient appears alert and oriented x3, tends to talk off topic at times, does FSC, resting in bed. No c/o NVD, reports passing much gas but no BM yesterday. Patient with 0 documented BMs in the last 24 hours. Denies SOB at this time, reports occasional nonproductive cough. Denies chills or sweats. Reports improving back pain overall, reports BLE numbness/tingling is at baseline. Reports right lower back/hip discomfort again this morning, although reports being able to ambulate in her room this morning without difficulty. Denies dysuria or any troubles urinating-BSC emptied for small amount of darker yellow concentrated urine. No other new complaints this AM, patient reports feeling improvement overall. Respirations easy and nonlabored, 97% on RA. Patient has remained afebrile for the last 24 hours. Labs: ESR 33 CRP <0.4 Vanco Trough 11.7 FOCUSED ASSESSMENT: CVS: Regular S1S2 LUNGS: Clear diminished bilaterally, denies SOB at this time, occasional nonproductive cough, on RA ABDOMEN: Rounded, soft, nontender, + bowel sounds, passing gas, 0 documented BMs in the last 24 hours SKIN: No rashes noted, pale in overall coloring, diffuse ecchymosis/scratches noted, lower back procedure site-gauze dressing in place INCISIONS/DRESSINGS: Left lower back gauze dressing loose but clean and intact EXTREMITIES: +1 BLE/pedal edema, BLE numbness/tingling-baseline, improving weakness overall LINES/TUBES/DRAINS: RH IV dressing dry & intact, no drainage or erythema at site. BSC emptied for small amount of darker concentrated yellow urine. CURRENT ANTIBIOTICS: Cefepime 2g IV Q12h 02/01 - present Vanco 2g IV Q24h 01/31 - present CULTURE RESULTS/YANDY: 02/01 Blood Cultures 2/ no growth to date -F 02/05 Wound Deep Culture (vertebra) -P No growth to date 02/01 AFB Culture -P Acid Fast Smear from Concentrated Specimen: Negative 02/01 Fungal Culture -P No fungal elements observed by calcofluor white stain Weight Dosing Weight: 134.1 kg (02/01/24) Medications Medications (33) Active Scheduled: (27) allopurinol 100 mg tablet 100 mg 1 tab(s), Oral, BID atenolol 50 mg tablet 50 mg 1 tab(s), Oral, qAM atorvastatin 80 mg tablet 80 mg 1 tab(s), Oral, Daily calcium-vitamin D 500 mg-200 units tablet 1 tab(s), Oral, with lunch cefepime IVP syringe 2 gram(s) 20 mL, IV Push, q12h cholecalciferol 1250 mcg capsule (Vit D3 50,000 unit(s)) 1,250 mcg 1 cap(s), Oral, qWeek colestipol 1 gm tablet 2 gram(s) 2 tab(s), Oral, BID desvenlafaxine 50 mg ER tablet 50 mg 1 tab(s), Oral, qDay doxepin 100 mg Capsule 100 mg 1 cap(s), Oral, qHS enoxaparin 40 mg/ 0.4mL syringe 40 mg 0.4 mL, Subcutaneous, qDay furosemide 20 mg tablet 20 mg 1 tab(s), Oral, BID Gemtesa 75 mg oral tablet 75 mg, Oral, qDay insulin degludec 200 units/mL syringe 3 mL 76 unit(s) 0.38 mL, Subcutaneous, qDay insulin lispro 100 units/mL Soln (3 mL) Give 0-10 units/dose, Subcutaneous, TIDAC latanoprost ophthalmic 0.005% Solution 1 drop(s), Eyes, both, qHS lidocaine 1% (MPF) 2 mL vial pf 30 mg 3 mL, Intradermal, prep pharm losartan 25 mg tablet 25 mg 1 tab(s), Oral, qDay losartan 50 mg tablet 50 mg 1 tab(s), Oral, qDay magnesium oxide 400 mg Tablet 400 mg 1 tab(s), Oral, qDay Misc communication order Home Meds Verified, Miscellaneous, qDay multivitamin (Myadec) with minerals Therapeutic Multiple Vitamins with Minerals Tablet 1 tab(s), Oral, with lunch [id number]-[id number] ethyl esters 1000 mg capsule 2,000 mg 2 cap(s), Oral, BID omeprazole [address] capsule 40 mg 1 cap(s), Oral, qAM oxybutynin 5 mg ER tablet 10 mg 2 tab(s), Oral, qDay polyethylene glycol 3350 - UD packet 17 gram(s) 15 mL, Oral, qDay pregabalin 50 mg capsule 50 mg 1 cap(s), Oral, TID vancomycin PMX 2,000 mg 500 mL, IV Piggyback, qDay Continuous: (0) PRN: (6) acetaminophen 325 mg Tablet 650 mg 2 tab(s), Oral, q4h albuterol - ipratropium 2.5 mg-0.5 mg/3 mL Inhal Elba UD 3 mL, Inhalation, q4hRT colchicine 0.6 mg Tablet 0.6 mg 1 tab(s), Oral, qDay dextrose 50% Solution Disp syringe 50 mL 12.5 gram(s) 25 mL, IV Push, AsDirected ondansetron 2 mg/ 1 mL 2 mL INJ 4 mg 2 mL, IV Push, q4h oxycodone 5 mg tablet (immediate release) 5 mg 1 tab(s), Oral, q6hr Lab Results 02/08 07:19 WBC: 6.1 Hgb: 13.4 Hct: 40.1 Platelet: 106 L Neutrophil %: 52.8 Glucose Level: 126 H Sodium Level: 139 Potassium Level: 4.3 BUN: 18.0 Creatinine Lvl (s): 0.74 02/07 06:49 WBC: 6.9 Hgb: 14.0 Hct: 41.1 Platelet: 111 L Neutrophil %: 49.4 L Glucose Level: 119 H Sodium Level: 139 Potassium Level: 4.0 BUN: 17.0 Creatinine Lvl (s): 0.71 Imaging Results and Diagnostics IR Aspiration Lumbar Disc W/Guide Result Date: February 06, 2024 Verified By: KERON DUNAWAY MD CLINICAL STATEMENT: IMPRESSION: Successful CT-guided percutaneous 18-G core biopsy of the L2/T2gblquoysaawlrg disc. MRI Spine Lumbar w/ + w/o Contrast Result Date: February 03, 2024 Verified By: DORA ROMERO DO CLINICAL STATEMENT: IMPRESSION: 1. Findings consistent with discitis/osteomyelitis at L2-3.2. Extensive prevertebral soft tissue edema and postcontrast enhancement atL2-3.3. Extensive postcontrast enhancement and fluid signal within the right L2-3facet joint compatible with facet synovitis, likely infectious.4. Multilevel degenerative changes of the lumbar spine with severe spinalcanal stenosis at L3-4 and moderate spinal canal stenosis at L4-5.5. Multilevel neural foraminal stenoses as described above. Problem List 1. L2-L3 osteomyelitis/discitis 2. Elevated ESR 33 3. 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 Chronic abdominal pain, back pain 6. Type 2 diabetes Digitally Signed by Sandra Chapman RN on 02/09/2024 10:22 AM [facility] 02-08-2024 Note Date of Service 02/08/2024 Subjective Overall patient states she is doing better. Plan is likely PICC line and home with IV antibiotics after final culture data known. I did ask patient about her safety at home. She does live completely alone and has a home health aide 3 times a week. She does her own laundry, meals, and toileting. I did discuss this with nursing who said that merely standing to pivot patient looked unsteady. Currently she has a bedside commode right by the bed and she has not left the bed otherwise. Seen by physical therapy and Occupational Therapy yesterday but only walked 20 feet. Objective Vitals and Measurements T: 36.7 C (Oral) TMIN: 36.6 C (Oral) TMAX: 36.7 C (Oral) HR: 78 RR: 16 BP: 149/64 SpO2: 96% Intake and Output 7AM Yesterday to 7AM Today Intake and Output (Last 24 hours) Intake Oral Intake 1440.00 Supplement Intake 0.00 Output Urine Voided 0.00 Stool Count 1.00 Urine Count 5.00 Emesis Count 0.00 Total Summary Total Intake 1440.00 Total Output 0.00 Fluid Balance 1440.00 Physical Exam Exam: Awake and alert, no distress CVS: regular, no murmur Lungs: clear to auscultation Abdomen: soft, non distended, obese, no tenderness Weight Dosing Weight: 134.1 kg (02/01/24) Medications Medications (34) Active Scheduled: (28) allopurinol 100 mg tablet 100 mg 1 tab(s), Oral, BID atenolol 50 mg tablet 50 mg 1 tab(s), Oral, qAM atorvastatin 80 mg tablet 80 mg 1 tab(s), Oral, Daily calcium-vitamin D 500 mg-200 units tablet 1 tab(s), Oral, with lunch cefepime IVP syringe 2 gram(s) 20 mL, IV Push, q12h cholecalciferol 1250 mcg capsule (Vit D3 50,000 unit(s)) 1,250 mcg 1 cap(s), Oral, qWeek colestipol 1 gm tablet 2 gram(s) 2 tab(s), Oral, BID desvenlafaxine 50 mg ER tablet 50 mg 1 tab(s), Oral, qDay doxepin 100 mg Capsule 100 mg 1 cap(s), Oral, qHS enoxaparin 40 mg/ 0.4mL syringe 40 mg 0.4 mL, Subcutaneous, qDay furosemide 20 mg tablet 20 mg 1 tab(s), Oral, BID Gemtesa 75 mg oral tablet 75 mg, Oral, qDay insulin degludec 200 units/mL syringe 3 mL 76 unit(s) 0.38 mL, Subcutaneous, qDay insulin lispro 100 units/mL Soln (3 mL) Give 0-10 units/dose, Subcutaneous, TIDAC latanoprost ophthalmic 0.005% Solution 1 drop(s), Eyes, both, qHS lidocaine 1% (MPF) 2 mL vial pf 30 mg 3 mL, Intradermal, prep pharm losartan 25 mg tablet 25 mg 1 tab(s), Oral, qDay losartan 50 mg tablet 50 mg 1 tab(s), Oral, qDay magnesium oxide 400 mg Tablet 400 mg 1 tab(s), Oral, qDay Misc communication order Home Meds Verified, Miscellaneous, qDay multivitamin (Myadec) with minerals Therapeutic Multiple Vitamins with Minerals Tablet 1 tab(s), Oral, with lunch [id number] ethyl esters 1000 mg capsule 2,000 mg 2 cap(s), Oral, BID omeprazole [address] capsule 40 mg 1 cap(s), Oral, qAM oxybutynin 5 mg ER tablet 10 mg 2 tab(s), Oral, qDay polyethylene glycol 3350 - UD packet 17 gram(s) 15 mL, Oral, qDay pregabalin 50 mg capsule 50 mg 1 cap(s), Oral, TID vancomycin PMX 2,000 mg 500 mL, IV Piggyback, qDay Vancomycin Trough level 1 EA, Miscellaneous, q24h Continuous: (0) PRN: (6) acetaminophen 325 mg Tablet 650 mg 2 tab(s), Oral, q4h albuterol - ipratropium 2.5 mg-0.5 mg/3 mL Inhal Elba UD 3 mL, Inhalation, q4hRT colchicine 0.6 mg Tablet 0.6 mg 1 tab(s), Oral, qDay dextrose 50% Solution Disp syringe 50 mL 12.5 gram(s) 25 mL, IV Push, AsDirected ondansetron 2 mg/ 1 mL 2 mL INJ 4 mg 2 mL, IV Push, q4h oxycodone 5 mg tablet (immediate release) 5 mg 1 tab(s), Oral, q6hr Lab Results 02/07 06:49 WBC: 6.9 Hgb: 14.0 Hct: 41.1 Platelet: 111 L Neutrophil %: 49.4 L Glucose Level: 119 H Sodium Level: 139 Potassium Level: 4.0 BUN: 17.0 Creatinine Lvl (s): 0.71 02/06 07:10 WBC: 5.5 Hgb: 13.3 Hct: 39.0 Platelet: 119 L Neutrophil %: 50.3 Glucose Level: 128 H Sodium Level: 140 Potassium Level: 4.3 BUN: 12.0 Creatinine Lvl (s): 0.76 Labs reviewed EKG No qualifying data available. Assessment/Plan 1. Lumbar osteomyelitis/discitis. No need for acute surgical intervention. Bone biopsy and aspiration done yesterday and awaiting cultures. Currently on cefepime and vancomycin. Patient will need intravenous antibiotics on discharge, culture data to drive antibiotic choice and duration. PICC line ordered. 2. History of diabetes. Patient is on her home dose of insulin and sugars are stable. Sliding scale if needed. Will be stable for discharge when antibiotic strategy is known. I do worry about her home alone based on how she looks, her time spent in bed, and nursing comments today. Will see if she is capable of getting up and ambulating to the bathroom on her own and how her pain is at that time. Patient is extremely averse to any rehabilitation discharge. Digitally Signed by MARCIN SAXENA MD on 02/08/2024 04:16 PM [facility] 02-08-2024 Note If ancillary studies were utilized, the following Laboratory Developed Test (LDT) disclaimer will apply: Under CLIA requirements, [facility] is qualified to perform high complexity testing. For all ancillary stains, positive and negative controls stain appropriately. Performance characteristics of immunohistochemical and chromogenic in-situ hybridization tests have been determined by [facility]. These tests are used for clinical purposes, They should not be regarded as investigational or for research. [facility] 02-08-2024 Infectious disease Progress note Date of Service 02/08/2024 Objective Vitals and Measurements T: 36.6 C (Oral) HR: 76 (Apical) RR: 18 BP: 130/79 SpO2: 93% Physical Exam Chart reviewed, patient examined. Patient appears alert and oriented x3, tends to talk off topic at times, does FSC, resting in bed. No c/o NVD, reports mild constipation but is passing gas. Patient with 1 documented BM in the last 24 hours. Denies SOB currently at rest, reports SOB with exertion, reports occasional cough. Denies chills or sweats. Reports improving back pain since admission, reports BLE numbness/tingling appear at baseline. Reports right lower back/hip discomfort this morning. Denies dysuria or any troubles urinating. No other new complaints this AM, patient reports feeling improvement since admission. Respirations easy and nonlabored, 93% on RA. Patient has remained afebrile for the last 24 hours. Labs: ESR 33 CRP <0.4 SGOT 43, SGPT 33 Total Bili 0.6 FOCUSED ASSESSMENT: CVS: Regular S1S2 LUNGS: Clear diminished bilaterally, SOB with activity, occasional cough, on RA ABDOMEN: Rounded, soft, nontender, + bowel sounds, passing gas, 1 documented BM in the last 24 hours SKIN: No rashes noted, pale in overall coloring, diffuse ecchymosis/scratches noted, lower back procedure site-gauze dressing in place INCISIONS/DRESSINGS: Left lower back gauze dressing clean and intact EXTREMITIES: +1 BLE/pedal edema, BLE numbness/tingling-baseline, improving weakness LINES/TUBES/DRAINS: RH IV dressing dry & intact, no drainage or erythema at site. BSC present at bedside. CURRENT ANTIBIOTICS: Cefepime 2g IV Q12h 02/01 - present Vanco 2g IV Q24h 01/31 - present CULTURE RESULTS/YANDY: 02/01 Blood Cultures 2/ no growth to date -F 02/05 Wound Deep Culture (vertebra) -P No growth to date 02/01 AFB Culture -P Acid Fast Smear from Concentrated Specimen: Negative 02/01 Fungal Culture -P No fungal elements observed by calcofluor white stain Weight Dosing Weight: 134.1 kg (02/01/24) Medications Medications (33) Active Scheduled: (27) allopurinol 100 mg tablet 100 mg 1 tab(s), Oral, BID atenolol 50 mg tablet 50 mg 1 tab(s), Oral, qAM atorvastatin 80 mg tablet 80 mg 1 tab(s), Oral, Daily calcium-vitamin D 500 mg-200 units tablet 1 tab(s), Oral, with lunch cefepime IVP syringe 2 gram(s) 20 mL, IV Push, q12h cholecalciferol 1250 mcg capsule (Vit D3 50,000 unit(s)) 1,250 mcg 1 cap(s), Oral, qWeek colestipol 1 gm tablet 2 gram(s) 2 tab(s), Oral, BID desvenlafaxine 50 mg ER tablet 50 mg 1 tab(s), Oral, qDay doxepin 100 mg Capsule 100 mg 1 cap(s), Oral, qHS enoxaparin 40 mg/ 0.4mL syringe 40 mg 0.4 mL, Subcutaneous, qDay furosemide 20 mg tablet 20 mg 1 tab(s), Oral, BID Gemtesa 75 mg oral tablet 75 mg, Oral, qDay insulin degludec 200 units/mL syringe 3 mL 76 unit(s) 0.38 mL, Subcutaneous, qDay insulin lispro 100 units/mL Soln (3 mL) Give 0-10 units/dose, Subcutaneous, TIDAC latanoprost ophthalmic 0.005% Solution 1 drop(s), Eyes, both, qHS losartan 25 mg tablet 25 mg 1 tab(s), Oral, qDay losartan 50 mg tablet 50 mg 1 tab(s), Oral, qDay magnesium oxide 400 mg Tablet 400 mg 1 tab(s), Oral, qDay Misc communication order Home Meds Verified, Miscellaneous, qDay multivitamin (Myadec) with minerals Therapeutic Multiple Vitamins with Minerals Tablet 1 tab(s), Oral, with lunch cjmpf-[id number] ethyl esters 1000 mg capsule 2,000 mg 2 cap(s), Oral, BID omeprazole [address] capsule 40 mg 1 cap(s), Oral, qAM oxybutynin 5 mg ER tablet 10 mg 2 tab(s), Oral, qDay polyethylene glycol 3350 - UD packet 17 gram(s) 15 mL, Oral, qDay pregabalin 50 mg capsule 50 mg 1 cap(s), Oral, TID vancomycin PMX 2,000 mg 500 mL, IV Piggyback, qDay Vancomycin Trough level 1 EA, Miscellaneous, q24h Continuous: (0) PRN: (6) acetaminophen 325 mg Tablet 650 mg 2 tab(s), Oral, q4h albuterol - ipratropium 2.5 mg-0.5 mg/3 mL Inhal Elba UD 3 mL, Inhalation, q4hRT colchicine 0.6 mg Tablet 0.6 mg 1 tab(s), Oral, qDay dextrose 50% Solution Disp syringe 50 mL 12.5 gram(s) 25 mL, IV Push, AsDirected ondansetron 2 mg/ 1 mL 2 mL INJ 4 mg 2 mL, IV Push, q4h oxycodone 5 mg tablet (immediate release) 5 mg 1 tab(s), Oral, q6hr Lab Results 02/07 06:49 WBC: 6.9 Hgb: 14.0 Hct: 41.1 Platelet: 111 L Neutrophil %: 49.4 L Glucose Level: 119 H Sodium Level: 139 Potassium Level: 4.0 BUN: 17.0 Creatinine Lvl (s): 0.71 02/06 07:10 WBC: 5.5 Hgb: 13.3 Hct: 39.0 Platelet: 119 L Neutrophil %: 50.3 Glucose Level: 128 H Sodium Level: 140 Potassium Level: 4.3 BUN: 12.0 Creatinine Lvl (s): 0.76 Imaging Results and Diagnostics IR Aspiration Lumbar Disc W/Guide Result Date: February 06, 2024 Verified By: KERON DUNAWAY MD CLINICAL STATEMENT: IMPRESSION: Successful CT-guided percutaneous 18-G core biopsy of the L2/E0smyyuanhapnqcl disc. MRI Spine Lumbar w/ + w/o Contrast Result Date: February 03, 2024 Verified By: DORA ROMERO DO CLINICAL STATEMENT: IMPRESSION: 1. Findings consistent with discitis/osteomyelitis at L2-3.2. Extensive prevertebral soft tissue edema and postcontrast enhancement atL2-3.3. Extensive postcontrast enhancement and fluid signal within the right L2-3facet joint compatible with facet synovitis, likely infectious.4. Multilevel degenerative changes of the lumbar spine with severe spinalcanal stenosis at L3-4 and moderate spinal canal stenosis at L4-5.5. Multilevel neural foraminal stenoses as described above. Problem List 1. L2-L3 osteomyelitis/discitis 2. Elevated ESR 3. 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 Chronic abdominal pain, back pain 6. Type 2 diabetes Digitally Signed by Sandra Chapman RN on 02/08/2024 10:48 AM [facility] 02-08-2024 Infectious disease Progress note Date of Service 02/08/2024 Objective Vitals and Measurements T: 36.6 C (Oral) HR: 76 (Apical) RR: 18 BP: 130/79 SpO2: 93% Physical Exam Chart reviewed, patient examined. Patient appears alert and oriented x3, tends to talk off topic at times, does FSC, resting in bed. No c/o NVD, reports mild constipation but is passing gas. Patient with 1 documented BM in the last 24 hours. Denies SOB currently at rest, reports SOB with exertion, reports occasional cough. Denies chills or sweats. Reports improving back pain since admission, reports BLE numbness/tingling appear at baseline. Reports right lower back/hip discomfort this morning. Denies dysuria or any troubles urinating. No other new complaints this AM, patient reports feeling improvement since admission. Respirations easy and nonlabored, 93% on RA. Patient has remained afebrile for the last 24 hours. Labs: ESR 33 CRP <0.4 SGOT 43, SGPT 33 Total Bili 0.6 FOCUSED ASSESSMENT: CVS: Regular S1S2 LUNGS: Clear diminished bilaterally, SOB with activity, occasional cough, on RA ABDOMEN: Rounded, soft, nontender, + bowel sounds, passing gas, 1 documented BM in the last 24 hours SKIN: No rashes noted, pale in overall coloring, diffuse ecchymosis/scratches noted, lower back procedure site-gauze dressing in place INCISIONS/DRESSINGS: Left lower back gauze dressing clean and intact EXTREMITIES: +1 BLE/pedal edema, BLE numbness/tingling-baseline, improving weakness LINES/TUBES/DRAINS: RH IV dressing dry & intact, no drainage or erythema at site. BSC present at bedside. CURRENT ANTIBIOTICS: Cefepime 2g IV Q12h 02/01 - present Vanco 2g IV Q24h 01/31 - present CULTURE RESULTS/YANDY: 02/01 Blood Cultures 2/2 no growth to date -F 02/05 Wound Deep Culture (vertebra) -P No growth to date 02/01 AFB Culture -P Acid Fast Smear from Concentrated Specimen: Negative 02/01 Fungal Culture -P No fungal elements observed by calcofluor white stain Weight Dosing Weight: 134.1 kg (02/01/24) Medications Medications (33) Active Scheduled: (27) allopurinol 100 mg tablet 100 mg 1 tab(s), Oral, BID atenolol 50 mg tablet 50 mg 1 tab(s), Oral, qAM atorvastatin 80 mg tablet 80 mg 1 tab(s), Oral, Daily calcium-vitamin D 500 mg-200 units tablet 1 tab(s), Oral, with lunch cefepime IVP syringe 2 gram(s) 20 mL, IV Push, q12h cholecalciferol 1250 mcg capsule (Vit D3 50,000 unit(s)) 1,250 mcg 1 cap(s), Oral, qWeek colestipol 1 gm tablet 2 gram(s) 2 tab(s), Oral, BID desvenlafaxine 50 mg ER tablet 50 mg 1 tab(s), Oral, qDay doxepin 100 mg Capsule 100 mg 1 cap(s), Oral, qHS enoxaparin 40 mg/ 0.4mL syringe 40 mg 0.4 mL, Subcutaneous, qDay furosemide 20 mg tablet 20 mg 1 tab(s), Oral, BID Gemtesa 75 mg oral tablet 75 mg, Oral, qDay insulin degludec 200 units/mL syringe 3 mL 76 unit(s) 0.38 mL, Subcutaneous, qDay insulin lispro 100 units/mL Soln (3 mL) Give 0-10 units/dose, Subcutaneous, TIDAC latanoprost ophthalmic 0.005% Solution 1 drop(s), Eyes, both, qHS losartan 25 mg tablet 25 mg 1 tab(s), Oral, qDay losartan 50 mg tablet 50 mg 1 tab(s), Oral, qDay magnesium oxide 400 mg Tablet 400 mg 1 tab(s), Oral, qDay Misc communication order Home Meds Verified, Miscellaneous, qDay multivitamin (Myadec) with minerals Therapeutic Multiple Vitamins with Minerals Tablet 1 tab(s), Oral, with lunch [id number] ethyl esters 1000 mg capsule 2,000 mg 2 cap(s), Oral, BID omeprazole [address] capsule 40 mg 1 cap(s), Oral, qAM oxybutynin 5 mg ER tablet 10 mg 2 tab(s), Oral, qDay polyethylene glycol 3350 - UD packet 17 gram(s) 15 mL, Oral, qDay pregabalin 50 mg capsule 50 mg 1 cap(s), Oral, TID vancomycin PMX 2,000 mg 500 mL, IV Piggyback, qDay Vancomycin Trough level 1 EA, Miscellaneous, q24h Continuous: (0) PRN: (6) acetaminophen 325 mg Tablet 650 mg 2 tab(s), Oral, q4h albuterol - ipratropium 2.5 mg-0.5 mg/3 mL Inhal Elba UD 3 mL, Inhalation, q4hRT colchicine 0.6 mg Tablet 0.6 mg 1 tab(s), Oral, qDay dextrose 50% Solution Disp syringe 50 mL 12.5 gram(s) 25 mL, IV Push, AsDirected ondansetron 2 mg/ 1 mL 2 mL INJ 4 mg 2 mL, IV Push, q4h oxycodone 5 mg tablet (immediate release) 5 mg 1 tab(s), Oral, q6hr Lab Results 02/07 06:49 WBC: 6.9 Hgb: 14.0 Hct: 41.1 Platelet: 111 L Neutrophil %: 49.4 L Glucose Level: 119 H Sodium Level: 139 Potassium Level: 4.0 BUN: 17.0 Creatinine Lvl (s): 0.71 02/06 07:10 WBC: 5.5 Hgb: 13.3 Hct: 39.0 Platelet: 119 L Neutrophil %: 50.3 Glucose Level: 128 H Sodium Level: 140 Potassium Level: 4.3 BUN: 12.0 Creatinine Lvl (s): 0.76 Imaging Results and Diagnostics IR Aspiration Lumbar Disc W/Guide Result Date: February 06, 2024 Verified By: KERON DUNAWAY MD CLINICAL STATEMENT: IMPRESSION: Successful CT-guided percutaneous 18-G core biopsy of the L2/I0iechkjgqxpsdee disc. MRI Spine Lumbar w/ + w/o Contrast Result Date: February 03, 2024 Verified By: DORA ROMERO DO CLINICAL STATEMENT: IMPRESSION: 1. Findings consistent with discitis/osteomyelitis at L2-3.2. Extensive prevertebral soft tissue edema and postcontrast enhancement atL2-3.3. Extensive postcontrast enhancement and fluid signal within the right L2-3facet joint compatible with facet synovitis, likely infectious.4. Multilevel degenerative changes of the lumbar spine with severe spinalcanal stenosis at L3-4 and moderate spinal canal stenosis at L4-5.5. Multilevel neural foraminal stenoses as described above. Problem List 1. L2-L3 osteomyelitis/discitis 2. Elevated ESR 3. 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 Chronic abdominal pain, back pain 6. Type 2 diabetes Digitally Signed by Sandra Chapman RN on 02/08/2024 10:48 AM [facility] 02-07-2024 Note Date of Service 02/07/2024 Subjective Accepting care of patient today. Extensive chart review. Still complaining of back pain, able to get up and move. No fevers, no chest pain or shortness of breath. IR bone biopsy and aspiration done yesterday. Cultures pending. Objective Vitals and Measurements T: 36.4 C (Oral) TMIN: 36.4 C (Oral) TMAX: 36.9 C (Oral) HR: 76 (Apical) RR: 18 BP: 140/95 SpO2: 95% Intake and Output 7AM Yesterday to 7AM Today Intake and Output (Last 24 hours) Intake Oral Intake 1200.00 Output Stool Count 0.00 Urine Count 4.00 Total Summary Total Intake 1200.00 Total Output 0.00 Fluid Balance 1200.00 Physical Exam Exam: Awake and alert, no distress CVS: regular, no murmur Lungs: clear to auscultation Abdomen: soft, non distended, obese, no tenderness Extremities: No edema Weight Dosing Weight: 134.1 kg (02/01/24) Medications Medications (32) Active Scheduled: (26) allopurinol 100 mg tablet 100 mg 1 tab(s), Oral, BID atenolol 50 mg tablet 50 mg 1 tab(s), Oral, qAM atorvastatin 80 mg tablet 80 mg 1 tab(s), Oral, Daily calcium-vitamin D 500 mg-200 units tablet 1 tab(s), Oral, with lunch cefepime IVP syringe 2 gram(s) 20 mL, IV Push, q12h cholecalciferol 1250 mcg capsule (Vit D3 50,000 unit(s)) 1,250 mcg 1 cap(s), Oral, qWeek colestipol 1 gm tablet 2 gram(s) 2 tab(s), Oral, BID desvenlafaxine 50 mg ER tablet 50 mg 1 tab(s), Oral, qDay doxepin 100 mg Capsule 100 mg 1 cap(s), Oral, qHS enoxaparin 40 mg/ 0.4mL syringe 40 mg 0.4 mL, Subcutaneous, qDay furosemide 20 mg tablet 20 mg 1 tab(s), Oral, BID Gemtesa 75 mg oral tablet 75 mg, Oral, qDay insulin degludec 200 units/mL syringe 3 mL 86 unit(s) 0.43 mL, Subcutaneous, qDay insulin lispro 100 units/mL Soln (3 mL) Give 0-10 units/dose, Subcutaneous, TIDAC latanoprost ophthalmic 0.005% Solution 1 drop(s), Eyes, both, qHS losartan 25 mg tablet 25 mg 1 tab(s), Oral, qDay losartan 50 mg tablet 50 mg 1 tab(s), Oral, qDay magnesium oxide 400 mg Tablet 400 mg 1 tab(s), Oral, qDay Misc communication order Home Meds Verified, Miscellaneous, qDay multivitamin (Myadec) with minerals Therapeutic Multiple Vitamins with Minerals Tablet 1 tab(s), Oral, with lunch ubjhe-[id number]-chdk ethyl esters 1000 mg capsule 2,000 mg 2 cap(s), Oral, BID omeprazole [address] capsule 40 mg 1 cap(s), Oral, qAM oxybutynin 5 mg ER tablet 10 mg 2 tab(s), Oral, qDay polyethylene glycol 3350 - UD packet 17 gram(s) 15 mL, Oral, qDay pregabalin 50 mg capsule 50 mg 1 cap(s), Oral, TID vancomycin PMX 2,000 mg 500 mL, IV Piggyback, qDay Continuous: (0) PRN: (6) acetaminophen 325 mg Tablet 650 mg 2 tab(s), Oral, q4h albuterol - ipratropium 2.5 mg-0.5 mg/3 mL Inhal Elba UD 3 mL, Inhalation, q4hRT colchicine 0.6 mg Tablet 0.6 mg 1 tab(s), Oral, qDay dextrose 50% Solution Disp syringe 50 mL 12.5 gram(s) 25 mL, IV Push, AsDirected ondansetron 2 mg/ 1 mL 2 mL INJ 4 mg 2 mL, IV Push, q4h oxycodone 5 mg tablet (immediate release) 5 mg 1 tab(s), Oral, q6hr Lab Results 02/06 07:10 WBC: 5.5 Hgb: 13.3 Hct: 39.0 Platelet: 119 L Neutrophil %: 50.3 Glucose Level: 128 H Sodium Level: 140 Potassium Level: 4.3 BUN: 12.0 Creatinine Lvl (s): 0.76 02/05 07:22 WBC: 6.4 Hgb: 13.8 Hct: 40.1 Platelet: 130 L Neutrophil %: 48.2 L Glucose Level: 121 H Sodium Level: 140 Potassium Level: 4.6 BUN: 12.0 Creatinine Lvl (s): 0.76 Labs reviewed EKG No qualifying data available. Assessment/Plan 1. Lumbar osteomyelitis/discitis. No need for acute surgical intervention. Bone biopsy and aspiration done yesterday and awaiting cultures. Currently on cefepime and vancomycin. Patient will almost certainly need intravenous antibiotics on discharge, culture data to drive antibiotic choice and duration. 2. History of diabetes. Patient is on her home dose of insulin and sugars are stable. Sliding scale if needed. Digitally Signed by MARCIN SAXENA MD on 02/07/2024 12:18 PM [facility] 02-07-2024 Note If ancillary studies were utilized, the following Laboratory Developed Test (LDT) disclaimer will apply: Under CLIA requirements, [facility] is qualified to perform high complexity testing. For all ancillary stains, positive and negative controls stain appropriately. Performance characteristics of immunohistochemical and chromogenic in-situ hybridization tests have been determined by [facility]. These tests are used for clinical purposes, They should not be regarded as investigational or for research. [facility] 02-07-2024 Note If ancillary studies were utilized, the following Laboratory Developed Test (LDT) disclaimer will apply: Under CLIA requirements, [facility] is qualified to perform high complexity testing. For all ancillary stains, positive and negative controls stain appropriately. Performance characteristics of immunohistochemical and chromogenic in-situ hybridization tests have been determined by [facility]. These tests are used for clinical purposes, They should not be regarded as investigational or for research. [facility] 02-07-2024 Note If ancillary studies were utilized, the following Laboratory Developed Test (LDT) disclaimer will apply: Under CLIA requirements, [facility] is qualified to perform high complexity testing. For all ancillary stains, positive and negative controls stain appropriately. Performance characteristics of immunohistochemical and chromogenic in-situ hybridization tests have been determined by [facility]. These tests are used for clinical purposes, They should not be regarded as investigational or for research. [facility] 02-07-2024 Note If ancillary studies were utilized, the following Laboratory Developed Test (LDT) disclaimer will apply: Under CLIA requirements, [facility] is qualified to perform high complexity testing. For all ancillary stains, positive and negative controls stain appropriately. Performance characteristics of immunohistochemical and chromogenic in-situ hybridization tests have been determined by [facility]. These tests are used for clinical purposes, They should not be regarded as investigational or for research. [facility] 02-07-2024 Note If ancillary studies were utilized, the following Laboratory Developed Test (LDT) disclaimer will apply: Under CLIA requirements, [facility] is qualified to perform high complexity testing. For all ancillary stains, positive and negative controls stain appropriately. Performance characteristics of immunohistochemical and chromogenic in-situ hybridization tests have been determined by [facility]. These tests are used for clinical purposes, They should not be regarded as investigational or for research. [facility] 02-07-2024 Note If ancillary studies were utilized, the following Laboratory Developed Test (LDT) disclaimer will apply: Under CLIA requirements, [facility] is qualified to perform high complexity testing. For all ancillary stains, positive and negative controls stain appropriately. Performance characteristics of immunohistochemical and chromogenic in-situ hybridization tests have been determined by [facility]. These tests are used for clinical purposes, They should not be regarded as investigational or for research. [facility] 02-07-2024 Note . MICRO - Microbiology PROCEDURE: Blood Culture (bacterial) [*1] SOURCE: Blood BODY SITE: Anticubital, Left COLLECTED DATE/TIME: 02/02/2024 09:26 EDT RECEIVED DATE/TIME: 02/02/2024 10:27 EDT START DATE/TIME: 02/02/2024 10:27 EDT FREE TEXT SOURCE: peds bottle FINAL REPORTS Final Report [] Verified Date/Time/Personnel: 02/07/2024 10:59 EDT Blood Culture: No Growth at 5 days. PRELIMINARY REPORTS Preliminary Report [] Verified Date/Time/Personnel: 02/02/2024 10:59 EDT Culture has been received in lab and is no growth to date. Routine cultures are held for 5 days. Performing Locations *1: This test was performed at: [address], [address] [place] [address] 02-07-2024 Note . MICRO - Microbiology PROCEDURE: Blood Culture (bacterial) [*1] SOURCE: Blood BODY SITE: Anticubital, Right COLLECTED DATE/TIME: 02/02/2024 09:26 EDT RECEIVED DATE/TIME: 02/02/2024 10:28 EDT START DATE/TIME: 02/02/2024 10:28 EDT FREE TEXT SOURCE: peds bottle FINAL REPORTS Final Report [] Verified Date/Time/Personnel: 02/07/2024 10:59 EDT Blood Culture: No Growth at 5 days. PRELIMINARY REPORTS Preliminary Report [] Verified Date/Time/Personnel: 02/02/2024 10:59 EDT Culture has been received in lab and is no growth to date. Routine cultures are held for 5 days. Performing Locations *1: This test was performed at: [address], [address] [place] [address] 02-07-2024 Infectious disease Progress note Date of Service 02/07/2024 Chief Complaint L2-L3 osteomyelitis/discitis Subjective Patient seen and independently evaluated the bedside. She is resting in bed comfortably in no acute distress. Continues to complain of low back pain and groin pain. No other complaints. Objective Vitals and Measurements T: 36.4 C (Oral) TMIN: 36.4 C (Oral) TMAX: 36.9 C (Oral) HR: 76 (Apical) RR: 18 BP: 140/95 SpO2: 95% Intake and Output 7AM Yesterday to 7AM Today Intake and Output (Last 24 hours) Intake Oral Intake 1200.00 Output Stool Count 0.00 Urine Count 5.00 Total Summary Total Intake 1200.00 Total Output 0.00 Fluid Balance 1200.00 Physical Exam General: No acute distress. Alert and Appropriate Skin: No rash. Warm, Dry, Intact Lungs: Respirations are unlabored, bilaterally clear breath sounds with no crepitation or wheeze. Cardiovascular: Heart is regular rhythm, S1S2, No extra-audible heart tones Abdomen: Abdomen is soft, right lower abdomen tenderness. Bowel sounds positive all four quadrants. No hepatosplenomegaly noted. Extremities: No clubbing, cyanosis or edema. Peripheral pulses palpable. No calf tenderness. Adequate peripheral circulation. Neurological: The patient is awake, oriented to person, place and time. Following simple commands, moving all extremities. Weight Dosing Weight: 134.1 kg (02/01/24) Medications Medications (32) Active Scheduled: (26) allopurinol 100 mg tablet 100 mg 1 tab(s), Oral, BID atenolol 50 mg tablet 50 mg 1 tab(s), Oral, qAM atorvastatin 80 mg tablet 80 mg 1 tab(s), Oral, Daily calcium-vitamin D 500 mg-200 units tablet 1 tab(s), Oral, with lunch cefepime IVP syringe 2 gram(s) 20 mL, IV Push, q12h cholecalciferol 1250 mcg capsule (Vit D3 50,000 unit(s)) 1,250 mcg 1 cap(s), Oral, qWeek colestipol 1 gm tablet 2 gram(s) 2 tab(s), Oral, BID desvenlafaxine 50 mg ER tablet 50 mg 1 tab(s), Oral, qDay doxepin 100 mg Capsule 100 mg 1 cap(s), Oral, qHS enoxaparin 40 mg/ 0.4mL syringe 40 mg 0.4 mL, Subcutaneous, qDay furosemide 20 mg tablet 20 mg 1 tab(s), Oral, BID Gemtesa 75 mg oral tablet 75 mg, Oral, qDay insulin degludec 200 units/mL syringe 3 mL 86 unit(s) 0.43 mL, Subcutaneous, qDay insulin lispro 100 units/mL Soln (3 mL) Give 0-10 units/dose, Subcutaneous, TIDAC latanoprost ophthalmic 0.005% Solution 1 drop(s), Eyes, both, qHS losartan 25 mg tablet 25 mg 1 tab(s), Oral, qDay losartan 50 mg tablet 50 mg 1 tab(s), Oral, qDay magnesium oxide 400 mg Tablet 400 mg 1 tab(s), Oral, qDay Misc communication order Home Meds Verified, Miscellaneous, qDay multivitamin (Myadec) with minerals Therapeutic Multiple Vitamins with Minerals Tablet 1 tab(s), Oral, with lunch nmyee-1-tgah ethyl esters 1000 mg capsule 2,000 mg 2 cap(s), Oral, BID omeprazole [address] capsule 40 mg 1 cap(s), Oral, qAM oxybutynin 5 mg ER tablet 10 mg 2 tab(s), Oral, qDay polyethylene glycol 3350 - UD packet 17 gram(s) 15 mL, Oral, qDay pregabalin 50 mg capsule 50 mg 1 cap(s), Oral, TID vancomycin PMX 2,000 mg 500 mL, IV Piggyback, qDay Continuous: (0) PRN: (6) acetaminophen 325 mg Tablet 650 mg 2 tab(s), Oral, q4h albuterol - ipratropium 2.5 mg-0.5 mg/3 mL Inhal Elba UD 3 mL, Inhalation, q4hRT colchicine 0.6 mg Tablet 0.6 mg 1 tab(s), Oral, qDay dextrose 50% Solution Disp syringe 50 mL 12.5 gram(s) 25 mL, IV Push, AsDirected ondansetron 2 mg/ 1 mL 2 mL INJ 4 mg 2 mL, IV Push, q4h oxycodone 5 mg tablet (immediate release) 5 mg 1 tab(s), Oral, q6hr Lab Results 02/06 07:10 WBC: 5.5 Hgb: 13.3 Hct: 39.0 Platelet: 119 L Neutrophil %: 50.3 Glucose Level: 128 H Sodium Level: 140 Potassium Level: 4.3 BUN: 12.0 Creatinine Lvl (s): 0.76 02/05 07:22 WBC: 6.4 Hgb: 13.8 Hct: 40.1 Platelet: 130 L Neutrophil %: 48.2 L Glucose Level: 121 H Sodium Level: 140 Potassium Level: 4.6 BUN: 12.0 Creatinine Lvl (s): 0.76 Imaging Results and Diagnostics IR Aspiration Lumbar Disc W/Guide Result Date: February 06, 2024 Verified By: KERON DUNAWAY MD CLINICAL STATEMENT: IMPRESSION: Successful CT-guided percutaneous 18-G core biopsy of the L2/Z4ortiyivomxwqhn disc. MRI Spine Lumbar w/ + w/o Contrast Result Date: February 03, 2024 Verified By: DORA ROMERO DO CLINICAL STATEMENT: IMPRESSION: 1. Findings consistent with discitis/osteomyelitis at L2-3.2. Extensive prevertebral soft tissue edema and postcontrast enhancement atL2-3.3. Extensive postcontrast enhancement and fluid signal within the right L2-3facet joint compatible with facet synovitis, likely infectious.4. Multilevel degenerative changes of the lumbar spine with severe spinalcanal stenosis at L3-4 and moderate spinal canal stenosis at L4-5.5. Multilevel neural foraminal stenoses as described above. EKG No qualifying data available. Assessment/Plan 1. L2-L3 osteomyelitis/discitis 2. Elevated ESR 3. 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 Chronic abdominal pain, back pain 6. 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 of the abdomen/pelvis concerning for discitis/osteomyelitis at L2-L3. ID on board for lumbar osteomyelitis/discitis. L2-L3 osteomyelitis/discitis. Status post IR aspiration with bone biopsy and cultures. Pathology is pending, await wound culture, AFB, fungal culture. No fever or leukocytosis. Continue cefepime, vancomycin. Plan will be likely for 6 weeks of IV antibiotics through PICC line upon discharge. She is agreeable. Dr. Woo to resume service in the a.m. Plan of care discussed in depth with patient. All questions answered. Discussed with my collaborating physician Dr. Devon Padgett. Any changes to the plan will be added to end as an addendum. Time Spent I spent a total of 40 minutes reviewing the patient s diagnostic labs/tests, seeing and examining the patient and documenting in the medical record, see assessment for further detail. Digitally Signed by MOMO GARLAND on 02/07/2024 02:20 PM [facility] 02-06-2024 Note ORIGINAL PROCEDURE: CT guided percutaneous core biopsy of L2/L3 intervertebral disc performed on 02/06/2024. INDICATION: Osteomyelitis/discitis. COMPARISON: Lumbar MRI dated 02/03/2024. TECHNIQUE/FINDINGS: The procedure was performed in the CT Room following informed consent and a Time Out. Local anesthesia was obtained using 2% lidocaine. With the patient in a prone position, limited axial CT images were obtained to localize the L2/L3 intervertebral disc level. The precise skin entry site was identified. The left back was prepped and draped in the usual sterile fashion. A 17-G coaxial needle was inserted towards and then into the L2/L3 intervertebral disc in incremental steps, as guided by limited axial CT images. Through the 17-G needle, a 20 cm, 18-G biopsy needle was inserted and core biopsies were performed. A total of approximately 6 biopsies were obtained, which were sent for pathology. The specimens were placed in formalin and sterile saline for cultures. The 17-G coaxial needle was removed. The access site was cleaned and dressed in the usual fashion. There were no immediate complications. CT Radiation Dose: Integrated Dose-length product (DLP) = 301.14 mGy*cm. CT Dose Reduction Employed: Per department protocol including the following measures where applicable: Automated exposure control, adjustment of the mAs and/or kVp according to patient size and/or exam, and an iterative reconstruction algorithm. Intra-Service Time (Moderate Sedation): 15 minutes. Patient Monitoring: I personally supervised and directed an independent trained observer who assisted in monitoring the patient's level of consciousness and physiological status throughout the procedure. IMPRESSION: Successful CT-guided percutaneous 18-G core biopsy of the L2/L3 intervertebral disc. Interpreted by: Keron Dunaway MD Preliminary Report By: Keron Dunaway MD Electronically signed By Keron Dunaway MD Dictated Date: 02/06/2024 2:27:53 PM Prelim Date: 02/06/2024 2:31:04 PM Sign Date: 02/06/2024 2:31:04 PM Ordering Provider: [facility] 02-06-2024 Note ORIGINAL PROCEDURE: CT guided percutaneous core biopsy of L2/L3 intervertebral disc performed on 02/06/2024. INDICATION: Osteomyelitis/discitis. COMPARISON: Lumbar MRI dated 02/03/2024. TECHNIQUE/FINDINGS: The procedure was performed in the CT Room following informed consent and a Time Out. Local anesthesia was obtained using 2% lidocaine. With the patient in a prone position, limited axial CT images were obtained to localize the L2/L3 intervertebral disc level. The precise skin entry site was identified. The left back was prepped and draped in the usual sterile fashion. A 17-G coaxial needle was inserted towards and then into the L2/L3 intervertebral disc in incremental steps, as guided by limited axial CT images. Through the 17-G needle, a 20 cm, 18-G biopsy needle was inserted and core biopsies were performed. A total of approximately 6 biopsies were obtained, which were sent for pathology. The specimens were placed in formalin and sterile saline for cultures. The 17-G coaxial needle was removed. The access site was cleaned and dressed in the usual fashion. There were no immediate complications. CT Radiation Dose: Integrated Dose-length product (DLP) = 301.14 mGy*cm. CT Dose Reduction Employed: Per department protocol including the following measures where applicable: Automated exposure control, adjustment of the mAs and/or kVp according to patient size and/or exam, and an iterative reconstruction algorithm. Intra-Service Time (Moderate Sedation): 15 minutes. Patient Monitoring: I personally supervised and directed an independent trained observer who assisted in monitoring the patient's level of consciousness and physiological status throughout the procedure. IMPRESSION: Successful CT-guided percutaneous 18-G core biopsy of the L2/L3 intervertebral disc. Interpreted by: Keron Dunaway MD Preliminary Report By: Keron Dunaway MD Electronically signed By Keron Dunaway MD Dictated Date: 02/06/2024 2:27:53 PM Prelim Date: 02/06/2024 2:31:04 PM Sign Date: 02/06/2024 2:31:04 PM Ordering Provider: [facility] 02-06-2024 Note IR Procedure Record Summary Primary Physician: KERON DUNAWAY MD Finalized Date/Time: 02/06/24 13:44:22 Pt. Name: JENNIFERGLORIA D.O.B./Sex: 1955 Female Med Rec #: [id number] Physician: JASON AZAR MD Financial #: [id number] Pt. Type: I Room/Bed: [facility]/ Admit/Disch: 02/01/24 19:44:00 - Institution: Allergies identified in patient's electronic medical record at time of printing on 02/06/24 Entry 1 Entry 2 Entry 3 Substance Bee Stings Brintellix Eggs Reaction Type Adverse Effect Intolerance Adverse Effect Last Modified By: Zoila Segovia RN, Hanna S RN Hoagland, Hanna S RN 02/02/21 12:52:13 02/02/21 12:54:13 02/02/21 12:52:45 Entry 4 Entry 5 Entry 6 Substance HYDROcodone aspirin calcium carbonate Reaction Type Unknown Unknown Allergy Last Modified By: Zoila Segovia RN, Hanna S RN Ledger, Donna F RN 02/02/21 12:54:29 02/02/21 12:55:08 12/17/20 16:02:08 Entry 7 Entry 8 Entry 9 Substance codeine flu vaccines gabapentin Reaction Type Adverse Effect Allergy Allergy Last Modified By: Zoila Segovia RN, Donna F RN Schalmo, Brenda RN 02/02/21 12:53:54 12/17/20 16:05:01 01/15/21 15:38:44 Entry 10 Entry 11 Entry 12 Substance influenza virus morphine penicillin vaccine, inactivated Reaction Type Unknown Adverse Effect Unknown Last Modified By: Zoila Segovia RN, Hanna S RN Hoagland, Hanna S RN 02/02/21 12:55:54 02/02/21 12:55:40 02/02/21 12:56:07 Entry 13 Substance propoxyphene Reaction Type Allergy Last Modified By: HILARIO Crawley 08/27/13 10:39:12 Case Attendance- IR Entry 1 Entry 2 Entry 3 Case Attendee KERON DUNAWAY MD, Jessica TECH Snider, RN Corey Role Performed Primary Surgeon Movable Bulkhead Installer Procedure Nurse Details Time In 02/06/24 12:42:00 02/06/24 12:42:00 02/06/24 12:42:00 Time Out 02/06/24 13:38:00 02/06/24 13:38:00 02/06/24 13:38:00 Procedure/Preference IR Aspiration Lumbar IR Aspiration Lumbar IR Aspiration Lumbar Card Disc W/Guide SN Disc W/Guide SN Disc W/Guide SN Last Modified By: HILARIO Vega RN Corey Snider, RN Corey 02/06/24 13:28:04 02/06/24 13:28:04 02/06/24 13:28:04 Radiology Procedures- IR Entry 1 Procedure/Preference IR Aspiration Lumbar Actual Procedure IR ASPIRATION LUMBAR Card Disc W/Guide SN DISC W/GUIDE Primary Procedure Yes Primary Surgeon KERON DUNAWAY MD Anesthesia/Sedation Local, IV Sedation Type Additional Procedure Times Start 02/06/24 13:12:00 Stop 02/06/24 13:28:00 Specialty Service SN Radiology Procedure EBL 0 mL Last Modified By: HILARIO Vega 02/06/24 13:43:13 Radiology Procedure Details - IR Entry 1 Radiology Sedation Case Times Sedation Start Time 02/06/24 13:13:00 Sedation Stop Time 02/06/24 13:28:00 Sedation Total Time 15min Radiology - Fluid/Drainage Radiology Contrast Contrast Used? No Radiology Flouroscopy Fluoroscopy Used? Yes Fluoro Dose (mGy) 248.81 Fluoro Time 9 seconds Radiology Local Local Used? Yes Local Type: lidocaine 2% Local Dose 8ml Radiology Procedure Site Site/Location lower back Site Condition No complications Dressing Type Gauze sponge 4 X 4, Transparent Last Modified By: HILARIO Vega 02/06/24 13:44:11 Cultures and Specimens- IR Entry 1 Kind Specimen Type Tissue Date/Time 02/06/24 13:22:00 Source lumbar disc aspiration Comments x 6 Last Modified By: HILARIO Vega 02/06/24 13:44:21 General Case Data - IR Entry 1 Case Information Room IR CT Case Level IR Level 2 Wound Class None Specialty SN Radiology Procedure ASA Class None Diagnosis Preop Diagnosis discitis Postop Same As Preop Yes Postop Diagnosis discitis Last Modified By: HILARIO Vega 02/06/24 13:15:24 Medication Administration- IR Entry 1 Entry 2 Entry 3 Medication versed fentanyl versed Time Administered 02/06/24 13:13:00 02/06/24 13:13:00 02/06/24 13:22:00 Route of Admin IV Push IV Push IV Push Dose 1mg 50mcg 1mg Volume VORB * *Verbal Order Read Back (VORB) is required for NON- PHYSICIAN administration of medications. Administered by No No No Physician? Administered by: HILARIO Vega RN Corey Snider, RN Corey Verbal Order Read KERON DUNAWAY MD, JAMES MD BUCHINO, JAMES MD Back from: Last Modified By: HILARIO Vega RN Corey Snider, RN Corey 02/06/24 13:16:31 02/06/24 13:16:31 02/06/24 13:23:47 Entry 4 Medication fentanyl Time Administered 02/06/24 13:22:00 Route of Admin IV Push Dose 50mcg Volume VORB * *Verbal Order Read Back (VORB) is required for NON- PHYSICIAN administration of medications. Administered by No Physician? Administered by: HILARIO Vega Verbal Order Read KERON DUNAWAY MD Back from: Last Modified By: HILARIO Vega 02/06/24 13:23:47 Procedure Case Times- IR Entry 1 Patient In Procedure Patient In OR 02/06/24 12:42:00 Patient Out of OR 02/06/24 13:38:00 Procedure Start/Stop Procedure Start Time 02/06/24 13:12:00 Procedure Stop Time 02/06/24 13:28:00 Last Modified By: HILARIO Vega 02/06/24 13:28:03 Immediate Post OP Note - IR Entry 1 Immediate Post Yes Procedure Note displayed for Physician to review Closure Technique Closure Technique Other than Primary Last Modified By: HILARIO Vega 02/06/24 13:10:52 Immediate Post OP Note - IR Signed By: KERON DUNAWAY MD 02/06/24 13:28 Allergy Information- IR Entry 1 Allergies Reviewed? Yes Allergies Reviewed Patient With Last Modified By: HILARIO Vega 02/06/24 13:04:01 Radiology Protocols/Time Out- IR Entry 1 Preprocedure Clinician Verifies Correct patient ID When Clinically Confirmation of correct using name & date Indicated side(s) and site(s), or MRN, Accurate Correct diagnostic and procedure, complete radiology tests Informed Consent, H & P available, Required update immediately blood products, prior to procedure, if implants, devices applicable and/or special equipment available OR/Procedure Room/Bedside Time 02/06/24 13:12:00 Clinician Verifies Correct patient identity including EMR & records using name and date or medical record number, Accurate procedure consent form, Correct patient position, Necessary equipment is available, Anticipated non-routine events with surgical team (case duration, estimated blood loss, patient specific concerns)., Yang patient factors for recovery and management identified with surgical team. When Applicable Confirmation correct Team Members KERON DUNAWAY MD, side and site marked, Present for Time Out [employer], Relevant images and HILARIO Vega results are properly labeled and appropriately displayed, Alcohol based prep dry, Double verification of sterility indicators complete Instrument Sterility Team Members KERON DUNAWAY MD, Verifying Sterility k[employer] Procedure IR Aspiration Lumbar Disc W/Guide SN Last Modified By: HILARIO Vega 02/06/24 13:15:40 Skin Prep- IR Entry 1 Procedure IR Aspiration Lumbar Disc W/Guide SN Skin Prep Prep Area Back Side Lower, Medial By KERON DUNAWAY MD Prep Agents Betadine Solution Hair Removal Method N/A Last Modified By: HILARIO Vega 02/06/24 13:10:28 Patient Positioning- IR Entry 1 Procedure IR Aspiration Lumbar Body Position OP Prone Disc W/Guide SN Feet Uncrossed? Yes Pressure Points Yes Checked Last Modified By: HILARIO Vega 02/06/24 13:10:41 Radiology Procedure Plan - IR Entry 1 Radiology - Nursing Care Plan Outcome Statement The patient Outcome Statement The patient receives demonstrates knowledge Cont. appropriate of the expected medication(s), safely responses to the administered during the operative/invasive perioperative/invasive procedure., The period., The patient is patient's value system, free from signs and lifestyle, ethnicity, symptoms of injury and culture are caused by extraneous considered, respected, objects (equipment, and incorporated in the instrumentation, perioperative plan of sponges, or sharps). care., The patient is free from signs and symptoms of infection., The patient is free from signs and symptoms of injury related to positioning. Radiology - Action Plan Outcomes Met? Yes Visual Merchandising Manager HILARIO Vega Completing Procedure Plan Last Modified By: HILARIO Vega 02/06/24 13:11:05 Case Comments Finalized By: HILARIO Vega Document Signatures Signed By: HILARIO Vega 02/06/24 13:44 [facility] 02-04-2024 Neurological surgery Consult note Date of Service February 04, 2024 Reason for Consultation Discitis Referring Physician Medicine service History of Present Illness Back pain Physical Exam Vitals and Measurements T: 37.1 C (Oral) TMIN: 36.6 C (Oral) TMAX: 37.1 C (Oral) HR: 76 RR: 18 BP: 109/70 SpO2: 94% Weight Dosing Weight: 134.1 kg (02/01/24) Patient is awake she is alert she is oriented x 3 she is moving all extremities well. She has normal sensation she does complain of lower back pain. Lab Results 02/02 07:25 WBC: 6.5 Hgb: 13.1 Hct: 38.9 Platelet: 124 L Neutrophil %: 48.4 L Glucose Level: 127 H Sodium Level: 141 Potassium Level: 3.7 BUN: 22.0 Creatinine Lvl (s): 0.85 Imaging Results and Diagnostics MRI Spine Lumbar w/ + w/o Contrast Result Date: February 03, 2024 Verified By: DORA ROMERO DO CLINICAL STATEMENT: IMPRESSION: 1. Findings consistent with discitis/osteomyelitis at L2-3.2. Extensive prevertebral soft tissue edema and postcontrast enhancement atL2-3.3. Extensive postcontrast enhancement and fluid signal within the right L2-3facet joint compatible with facet synovitis, likely infectious.4. Multilevel degenerative changes of the lumbar spine with severe spinalcanal stenosis at L3-4 and moderate spinal canal stenosis at L4-5.5. Multilevel neural foraminal stenoses as described above. Assessment/Plan Discitis MRI lumbar spine is consistent with osteomyelitis and discitis however there is no drainable fluid collection. Recommend IV antibiotics. Repeat MRI will be set up in 2 months time. No acute neurosurgical issues at this time. 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 CKD (chronic kidney disease) COPD Depression Diabetes mellitus type 2 GERD (gastroesophageal reflux disease) Hypercholesterolemia Hypertension Hyponatremia IBS (irritable bowel syndrome) Incontinence Morbid obesity MARGARETTE (obstructive sleep apnea) Osteoarthritis Positive autoantibody screening for celiac disease Stuttering Historical Breast cancer Procedure/Surgical History Cholecystectomy: 2013 Lumpectomy of breast: 2012 Eye surgery: 1969 Suspension of bladder Colonoscopy Medications Inpatient allopurinol, 100 mg= 1 tab(s), Oral, BID atenolol, 50 mg= 1 tab(s), Oral, qAM atorvastatin, 80 mg= 1 tab(s), Oral, Daily calcium (as carbonate)-vitamin D 500 mg-200 intl units oral tablet, 1 tab(s), Oral, with lunch Centrum, 1 tab(s), Oral, with lunch colchicine 0.6 mg oral tablet, 0.6 mg= 1 tab(s), Oral, qDay, PRN Colestid 1 g oral tablet, 2 gram(s)= 2 tab(s), Oral, BID Cozaar, 25 mg= 1 tab(s), Oral, qDay desvenlafaxine, 50 mg= 1 tab(s), Oral, qDay Dextrose 50% IV Push, 12.5 gram(s)= 25 mL, IV Push, AsDirected, PRN doxepin 100 mg oral capsule, 100 mg= 1 cap(s), Oral, qHS DuoNeb, 3 mL, Inhalation, q4hRT, PRN Fish Oil 1000 mg oral capsule, 2000 mg= 2 cap(s), Oral, BID Gemtesa 75 mg oral tablet, 75 mg, Oral, qDay HumaLOG 100 units/mL subcutaneous solution, Give 0-10 units/dose, Subcutaneous, TIDAC Lovenox, 40 mg= 0.4 mL, Subcutaneous, qDay magnesium oxide, 400 mg= 1 tab(s), Oral, qDay Maxipime, 2 gram(s)= 20 mL, IV Push, q12h omeprazole, 40 mg= 1 cap(s), Oral, qAM oxybutynin 10 mg/24 hr oral tablet, extended release, 10 mg= 2 tab(s), Oral, qDay oxyCODONE 5 mg oral tablet ( IMMEDIATE release ), 5 mg= 1 tab(s), Oral, q6hr, PRN pregabalin, 50 mg= 1 cap(s), Oral, TID Tresiba FlexTouch 200 units/mL 3 mL subcutaneous solution, 86 unit(s)= 0.43 mL, Subcutaneous, qDay Tylenol, 650 mg= 2 tab(s), Oral, q4h, PRN vancomycin, 2000 mg= 500 mL, IV Piggyback, qDay Vitamin D3 1250 mcg (50,000 intl units) oral capsule, 1250 mcg= 1 cap(s), Oral, qWeek Xalatan 0.005% ophthalmic solution, 1 drop(s), Eyes, both, qHS Zofran, 4 mg= 2 mL, IV Push, q4h, PRN Home albuterol MDI (90 mcg/inh) CFC free inhalation aerosol, 2 puff(s), Inhalation, q4h, PRN allopurinol 100 mg oral tablet, 100 mg= 1 tab(s), Oral, BID atenolol 50 mg oral tablet, 50 mg= 1 tab(s), Oral, qAM atorvastatin 80 mg oral tablet, 80 mg= 1 tab(s), Oral, Daily, 3 refills BD UF MINI PEN NEEDLE [id number] calcium-vitamin D 600 mg-5 mcg (200 intl units) oral capsule, 1 cap(s), Oral, with lunch ciprofloxacin 500 mg oral tablet colchicine 0.6 mg oral capsule, 0.6 mg= 1 cap(s), Oral, qDay, PRN Colestid 1 g oral tablet, 2 gram(s)= 2 tab(s), Oral, BID desvenlafaxine (as succinate) 50 mg oral tablet, extended release, 50 mg= 1 tab(s), Oral, qDay diclofenac sodium 75 mg oral delayed release tablet, 75 mg= 1 tab(s), Oral, BID, Patient Unsure doxepin 100 mg oral capsule, 100 mg= 1 cap(s), Oral, qHS DuoNeb, 3 mL, Inhalation, q2hRT, PRN Fish Oil 1000 mg oral capsule, 2000 mg= 2 cap(s), Oral, BID FREESTYLE JOSE RAUL 2 SENSOR FREESTYLE LITE TEST STRIP furosemide 20 mg oral tablet, 20 mg= 1 tab(s), Oral, BID Gemtesa 75 mg oral tablet, 75 mg= 1 tab(s), Oral, qDay HumaLOG KwikPen 100 units/mL injectable PEN, 35 unit(s), Subcutaneous, TIDAC, 3 refills hydrochlorothiazide-valsartan 12.5 mg-80 mg oral tablet, 0.5 tab(s), Oral, qDay Lumigan 0.01% ophthalmic solution, 1 drop(s), Eyes, both, qHS magnesium oxide 400 mg oral tablet, 400 mg= 1 tab(s), Oral, qDay omeprazole 40 mg oral delayed release capsule, 40 mg= 1 cap(s), Oral, qAM oxybutynin 10 mg/24 hr oral tablet, extended release, 10 mg= 1 tab(s), Oral, qDay oxyCODONE 5 mg oral tablet ( IMMEDIATE release ), 5 mg= 1 tab(s), Oral, q6h, PRN Ozempic 8 mg/3 mL (2 mg dose) subcutaneous solution, 2 mg, Subcutaneous, qWeek, 3 refills pregabalin, 50 mg, Oral, TID Therems M oral tablet, 1 tab(s), Oral, with lunch Tresiba FlexTouch 200 units/mL 3 mL subcutaneous solution, See Instructions, 3 refills Vitamin D3 1250 mcg (50,000 intl units) oral capsule, 1250 mcg= 1 cap(s), Oral, qWeek, 1 refills Allergies Bee Stings(Severe) Difficulty breathing morphine(Severe) Anaphylaxis Eggs (Mild) Nausea and vomiting Brintellix HYDROcodone aspirin calcium carbonate Unknown codeine Amnesia, Altered mental status flu vaccines Unknown gabapentin Abnormal muscle function influenza virus vaccine, inactivated penicillin propoxyphene Social History Smoking Status - 11/05/2017 Never smoker Alcohol - No Risk, 02/19/2017 Use: Current. Frequency: 1-2 times per year., 09/14/2018 Home/Environment Domestic Concerns: None. Living situation: Home with assistance. Lives In: Single level home. Current Home Treatments Blood glucose monitoring, BIPAP. 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 Marital Status: Unmarried., 02/02/2021 Nutrition/Health Type of diet: Regular. Appetite Good. Eating Difficulties No teeth, DENTURES UPPERS. Caffeine intake amount: 1 CAN SODA/DAY., 02/02/2021 Substance Abuse - No Risk, 02/19/2017 Use: Never., 09/14/2018 Tobacco - High Risk, 02/24/2020 Tobacco Use: Former smoker, quit more than 30 days ago., 09/14/2018 Family History Breast cancer: Mother. Diabetes mellitus type 2: Mother. Heart attack: Father. Heart disease: Father. Skin cancer: Sister. Health Status Family Member(s) Sister: History is negative Family Member(s) Relationship: Father, Age: 49 Years, Cause: DC Immunizations hepatitis B adult vaccine: 0 unknown unit (10/08/97) hepatitis B adult vaccine: 0 unknown unit (06/27/96) hepatitis B adult vaccine: 0 unknown unit (05/09/96) pneumococcal 13-valent conjugate vaccine: 0.5 unknown unit (07/27/21) SARS-CoV-2 (COVID-19) mRNA-1273 vaccine: 0.5 unknown unit (11/15/20) SARS-CoV-2 (COVID-19) mRNA-1273 vaccine: 0.5 unknown unit (10/17/20) tetanus/diphth/pertuss (Tdap) adult/adol: 0.5 unknown unit (02/02/22) tetanus/diphth/pertuss (Tdap) adult/adol: 0.5 mL (06/19/20) zoster vaccine, inactivated: 1 unknown unit (02/02/22) Digitally Signed by AMALIA BARRERA MD on 02/04/2024 07:01 AM [facility] 02-03-2024 Note ORIGINAL EXAMINATION: MRI OF THE LUMBAR SPINE WITHOUT AND WITH CONTRAST 02/03/2024 4:33 pm TECHNIQUE: Multiplanar multisequence MRI of the lumbar spine was performed without and with the administration of intravenous contrast. COMPARISON: MRI lumbar spine with contrast 12/18/2019. CT abdomen pelvis with contrast 02/01/2024. HISTORY: ORDERING SYSTEM PROVIDED HISTORY: Reason for Exam: osteo/discitis FINDINGS: BONES/ALIGNMENT: Destructive changes are appreciated about the L2-3 endplates, greater on the right than left with associated increased fluid signal and extensive postcontrast enhancement within the marrow, disc spaces, and prevertebral soft tissues. There is redemonstration of anterior wedging and height loss of the L1 vertebral body. No significant listhesis. Marrow signal is otherwise within normal limits. SPINAL CORD: The conus terminates normally at the level of L2. SOFT TISSUES: Soft tissue edema and postcontrast enhancement within the prevertebral soft tissues at L2-3. There is extension of soft tissue edema posteriorly along the inferior aspect of the right L2 pedicle with enhancement about the right L2-3 facet with increased fluid signal within the facet. L1-L2: Mild ligamentum flavum and facet hypertrophy. There is no significant disc protrusion, spinal canal stenosis or neural foraminal narrowing. L2-L3: Mild asymmetric diffuse bulge with mild narrowing of the spinal canal. Mild ligamentum flavum and facet hypertrophy. Moderate to severe right neural foraminal stenosis. L3-L4: A minimal diffuse disc bulge is appreciated with significant facet and mild ligamentum flavum hypertrophy resulting in severe narrowing of the spinal canal. Moderate right mild left neural foraminal stenoses. L4-L5: Minimal diffuse disc bulge with significant facet hypertrophy and mild ligamentum flavum hypertrophy resulting and moderate narrowing of the spinal canal and severe bilateral lateral recess stenosis. Moderate bilateral neural foraminal stenoses. L5-S1: Minimal diffuse disc bulge with facet and ligamentum flavum hypertrophy without significant narrowing of the spinal canal. Moderate left and mild right neural foraminal stenosis. IMPRESSION: 1. Findings consistent with discitis/osteomyelitis at L2-3. 2. Extensive prevertebral soft tissue edema and postcontrast enhancement at L2-3. 3. Extensive postcontrast enhancement and fluid signal within the right L2-3 facet joint compatible with facet synovitis, likely infectious. 4. Multilevel degenerative changes of the lumbar spine with severe spinal canal stenosis at L3-4 and moderate spinal canal stenosis at L4-5. 5. Multilevel neural foraminal stenoses as described above. Interpreted by: Dora Romero Preliminary Report By: Dora Romero Electronically signed By Dora Romero Dictated Date: 02/03/2024 4:49:32 PM Prelim Date: 02/03/2024 5:05:50 PM Sign Date: 02/03/2024 5:05:50 PM Ordering Provider: FABI REYES [facility] 02-02-2024 Infectious disease Consult note Date of Service 02/02/2024 Reason for Consultation Concern for lumbar osteomyelitis/discitis Referring Physician Dr. 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 Recently had outpatient CT abdomen/pelvis for chronic abdominal, back pain pain over the last 4 months which was concerning for discitis/osteomyelitis at L2-L3, no drainable fluid collection. Endorses her back pain has been present for years but in October it became constant and increasing in severity. She recently had injection into her back for pain relief in October. Transferred to [facility] for further evaluation for discitis/osteomyelitis. Patient was found to be hemodynamically stable. Labs on admission significant for ESR 33, AST 59. MRI of the lumbar spine has been ordered. Neurosurgery has been consulted. ID on board for lumbar osteomyelitis/discitis. Patient seen and independently evaluated the bedside. She is resting in bed comfortably in no acute distress. Complains of low back pain which radiates to her abdomen. No fever, chills or night sweats. No nausea, vomiting or diarrhea. No abdominal pain. No shortness of breath or cough. No urinary frequency, urgency or dysuria. No implantable devices. Prior surgical history is significant for lobectomy, lymph node removal to the left breast. Review of Systems Pertinent positives included within the HPI. Physical Exam Vitals and Measurements T: 36.8 C (Oral) TMIN: 36.6 C (Oral) TMAX: 36.8 C (Oral) HR: 75 RR: 18 BP: 101/65 SpO2: 94% HT: 175.3 cm WT: 134.1 kg BMI: 43.64 Weight Dosing Weight: 134.1 kg (02/01/24) General: No acute distress. Alert and Appropriate Skin: No rash. Warm, Dry, Intact HEENT: Head is normocephalic and atraumatic. No lesions. Pupils equal in size. Extraocular movements within normal limits. Nose: No septal deviation. Mouth: Oropharynx mucosa is without lesion. Neck: Supple. No lymphadenopathy, thyromegaly noted. No carotid bruit heard. Lungs: Respirations are unlabored, bilaterally clear breath sounds with no crepitation or wheeze. Cardiovascular: Heart is regular rhythm, S1S2, No extra-audible heart tones Abdomen: Abdomen is soft, right lower abdomen tenderness. Bowel sounds positive all four quadrants. No hepatosplenomegaly noted. Extremities: No clubbing, cyanosis or edema. Peripheral pulses palpable. No calf tenderness. Adequate peripheral circulation. Neurological: The patient is awake, oriented to person, place and time. Following simple commands, moving all extremities. Lab Results 02/01 06:06 WBC: 9.6 Hgb: 13.9 Hct: 41.4 Platelet: 136 L Neutrophil %: 56.3 Glucose Level: 108 Sodium Level: 141 Potassium Level: 3.6 BUN: 25.0 H Creatinine Lvl (s): 0.96 01/31 22:16 WBC: 9.5 Hgb: 14.2 Hct: 42.0 Platelet: 149 L Neutrophil %: 60.4 Glucose Level: 113 Sodium Level: 140 Potassium Level: 3.6 BUN: 25.0 H Creatinine Lvl (s): 1.12 Imaging Results and Diagnostics N/A Assessment/Plan 1. Concern for lumbar osteomyelitis/discitis 2. Elevated ESR 3. Type 2 diabetes 4. History of carcinoid tumor of the lung status post lobectomy 5. Chronic abdominal pain, back pain 6. 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 Recently had outpatient CT abdomen/pelvis for chronic abdominal pain, back pain with last 4 months which was concerning for discitis/osteomyelitis at L2-L3. Transferred to [facility] for further evaluation. ID on board for lumbar osteomyelitis/discitis. Concern for lumbar osteomyelitis/discitis. CT of the abdomen/pelvis reviewed, concerns for L2-L3 discitis/osteomyelitis. Awaiting MRI of the lumbar spine with and without contrast to evaluate for lumbar osteomyelitis/discitis. Await evaluation by neurosurgery. Will de-escalate Zosyn to ceftriaxone 2 g every 12 hours renally dosed, continue vancomycin for broad-spectrum coverage. ID to follow. Plan of care discussed in depth with patient. All questions answered. Patient verbalized understanding and is agreeable to plan of care. This is a shared/split visit with my collaborating physician Dr. Devon Padgett. Any changes to the plan will be added to end as an addendum. 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 CKD (chronic kidney disease) COPD Depression Diabetes mellitus type 2 GERD (gastroesophageal reflux disease) Hypercholesterolemia Hypertension Hyponatremia IBS (irritable bowel syndrome) Incontinence Morbid obesity MARGARETTE (obstructive sleep apnea) Osteoarthritis Positive autoantibody screening for celiac disease Stuttering Historical Breast cancer Procedure/Surgical History Cholecystectomy: 2013 Lumpectomy of breast: 2012 Eye surgery: 1968 Suspension of bladder Colonoscopy Medications Inpatient allopurinol, 100 mg= 1 tab(s), Oral, BID atenolol, 50 mg= 1 tab(s), Oral, qAM atorvastatin, 80 mg= 1 tab(s), Oral, Daily calcium (as carbonate)-vitamin D 500 mg-200 intl units oral tablet, 1 tab(s), Oral, with lunch Centrum, 1 tab(s), Oral, with lunch colchicine 0.6 mg oral tablet, 0.6 mg= 1 tab(s), Oral, qDay, PRN Colestid 1 g oral tablet, 2 gram(s)= 2 tab(s), Oral, BID Cozaar, 25 mg= 1 tab(s), Oral, qDay desvenlafaxine, 50 mg= 1 tab(s), Oral, qDay Dextrose 50% IV Push, 12.5 gram(s)= 25 mL, IV Push, AsDirected, PRN Dilaudid, 0.25 mg= 0.25 mL, IV Push, q3h, PRN doxepin 100 mg oral capsule, 100 mg= 1 cap(s), Oral, qHS DuoNeb, 3 mL, Inhalation, q4hRT, PRN Fish Oil 1000 mg oral capsule, 2000 mg= 2 cap(s), Oral, BID Gemtesa 75 mg oral tablet, 75 mg, Oral, qDay HumuLIN R, Give 0-10 units/dose, Subcutaneous, q6hr hydroCHLOROthiazide, 6.25 mg= 0.5 tab(s), Oral, qDay magnesium oxide, 400 mg= 1 tab(s), Oral, qDay omeprazole, 40 mg= 1 cap(s), Oral, qAM oxybutynin 10 mg/24 hr oral tablet, extended release, 10 mg= 2 tab(s), Oral, qDay pregabalin, 50 mg= 1 cap(s), Oral, TID Tylenol, 650 mg= 2 tab(s), Oral, q4h, PRN vancomycin, 2000 mg= 500 mL, IV Piggyback, qDay Vitamin D3 1250 mcg (50,000 intl units) oral capsule, 1250 mcg= 1 cap(s), Oral, qWeek Xalatan 0.005% ophthalmic solution, 1 drop(s), Eyes, both, qHS Zofran, 4 mg= 2 mL, IV Push, q4h, PRN Zosyn, 3.375 gram(s)= 50 mL, IV Piggyback, q8h Home albuterol MDI (90 mcg/inh) CFC free inhalation aerosol, 2 puff(s), Inhalation, q4h, PRN allopurinol 100 mg oral tablet, 100 mg= 1 tab(s), Oral, BID atenolol 50 mg oral tablet, 50 mg= 1 tab(s), Oral, qAM atorvastatin 80 mg oral tablet, 80 mg= 1 tab(s), Oral, Daily, 3 refills BD UF MINI PEN NEEDLE [id number] calcium-vitamin D 600 mg-5 mcg (200 intl units) oral capsule, 1 cap(s), Oral, with lunch ciprofloxacin 500 mg oral tablet colchicine 0.6 mg oral capsule, 0.6 mg= 1 cap(s), Oral, qDay, PRN Colestid 1 g oral tablet, 2 gram(s)= 2 tab(s), Oral, BID desvenlafaxine (as succinate) 50 mg oral tablet, extended release, 50 mg= 1 tab(s), Oral, qDay diclofenac sodium 75 mg oral delayed release tablet, 75 mg= 1 tab(s), Oral, BID, Patient Unsure doxepin 100 mg oral capsule, 100 mg= 1 cap(s), Oral, qHS DuoNeb, 3 mL, Inhalation, q2hRT, PRN Fish Oil 1000 mg oral capsule, 2000 mg= 2 cap(s), Oral, BID FREESTYLE JOSE RAUL 2 SENSOR FREESTYLE LITE TEST STRIP furosemide 20 mg oral tablet, 20 mg= 1 tab(s), Oral, BID Gemtesa 75 mg oral tablet, 75 mg= 1 tab(s), Oral, qDay HumaLOG KwikPen 100 units/mL injectable PEN, 35 unit(s), Subcutaneous, TIDAC, 3 refills hydrochlorothiazide-valsartan 12.5 mg-80 mg oral tablet, 0.5 tab(s), Oral, qDay Lumigan 0.01% ophthalmic solution, 1 drop(s), Eyes, both, qHS magnesium oxide 400 mg oral tablet, 400 mg= 1 tab(s), Oral, qDay omeprazole 40 mg oral delayed release capsule, 40 mg= 1 cap(s), Oral, qAM oxybutynin 10 mg/24 hr oral tablet, extended release, 10 mg= 1 tab(s), Oral, qDay oxyCODONE 5 mg oral tablet ( IMMEDIATE release ), 5 mg= 1 tab(s), Oral, q6h, PRN Ozempic 8 mg/3 mL (2 mg dose) subcutaneous solution, 2 mg, Subcutaneous, qWeek, 3 refills pregabalin, 50 mg, Oral, TID Therems M oral tablet, 1 tab(s), Oral, with lunch Tresiba FlexTouch 200 units/mL 3 mL subcutaneous solution, See Instructions, 3 refills Vitamin D3 1250 mcg (50,000 intl units) oral capsule, 1250 mcg= 1 cap(s), Oral, qWeek, 1 refills Allergies Bee Stings(Severe) Difficulty breathing morphine(Severe) Anaphylaxis Eggs (Mild) Nausea and vomiting Brintellix HYDROcodone aspirin calcium carbonate Unknown codeine Amnesia, Altered mental status flu vaccines Unknown gabapentin Abnormal muscle function influenza virus vaccine, inactivated penicillin propoxyphene Social History Smoking Status - 11/05/2017 Never smoker Alcohol - No Risk, 02/19/2017 Use: Current. Frequency: 1-2 times per year., 09/14/2018 Home/Environment Domestic Concerns: None. Living situation: Home with assistance. Lives In: Single level home. Current Home Treatments Blood glucose monitoring, BIPAP. 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 Marital Status: Unmarried., 02/02/2021 Nutrition/Health Type of diet: Regular. Appetite Good. Eating Difficulties No teeth, DENTURES UPPERS. Caffeine intake amount: 1 CAN SODA/DAY., 02/02/2021 Substance Abuse - No Risk, 02/19/2017 Use: Never., 09/14/2018 Tobacco - High Risk, 02/24/2020 Tobacco Use: Former smoker, quit more than 30 days ago., 09/14/2018 Family History Breast cancer: Mother. Diabetes mellitus type 2: Mother. Heart attack: Father. Heart disease: Father. Skin cancer: Sister. Health Status Family Member(s) Sister: History is negative Family Member(s) Relationship: Father, Age: 49 Years, Cause: DC Immunizations hepatitis B adult vaccine: 0 unknown unit (01/23/97) hepatitis B adult vaccine: 0 unknown unit (06/27/96) hepatitis B adult vaccine: 0 unknown unit (05/09/96) pneumococcal 13-valent conjugate vaccine: 0.5 unknown unit (07/27/21) SARS-CoV-2 (COVID-19) mRNA-1273 vaccine: 0.5 unknown unit (11/15/20) SARS-CoV-2 (COVID-19) mRNA-1273 vaccine: 0.5 unknown unit (10/17/20) tetanus/diphth/pertuss (Tdap) adult/adol: 0.5 unknown unit (02/02/22) tetanus/diphth/pertuss (Tdap) adult/adol: 0.5 mL (06/19/20) zoster vaccine, inactivated: 1 unknown unit (02/02/22) Digitally Signed by MOMO GARLAND on 02/02/2024 12:51 PM [facility] 02-02-2024 Infectious disease Consult note Date of Service 02/02/2024 Reason for Consultation Concern for lumbar osteomyelitis/discitis Referring Physician Dr. 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 Recently had outpatient CT abdomen/pelvis for chronic abdominal, back pain pain over the last 4 months which was concerning for discitis/osteomyelitis at L2-L3, no drainable fluid collection. Endorses her back pain has been present for years but in October it became constant and increasing in severity. She recently had injection into her back for pain relief in October. Transferred to [facility] for further evaluation for discitis/osteomyelitis. Patient was found to be hemodynamically stable. Labs on admission significant for ESR 33, AST 59. MRI of the lumbar spine has been ordered. Neurosurgery has been consulted. ID on board for lumbar osteomyelitis/discitis. Patient seen and independently evaluated the bedside. She is resting in bed comfortably in no acute distress. Complains of low back pain which radiates to her abdomen. No fever, chills or night sweats. No nausea, vomiting or diarrhea. No abdominal pain. No shortness of breath or cough. No urinary frequency, urgency or dysuria. No implantable devices. Prior surgical history is significant for lobectomy, lymph node removal to the left breast. Review of Systems Pertinent positives included within the HPI. Physical Exam Vitals and Measurements T: 36.8 C (Oral) TMIN: 36.6 C (Oral) TMAX: 36.8 C (Oral) HR: 75 RR: 18 BP: 101/65 SpO2: 94% HT: 175.3 cm WT: 134.1 kg BMI: 43.64 Weight Dosing Weight: 134.1 kg (02/01/24) General: No acute distress. Alert and Appropriate Skin: No rash. Warm, Dry, Intact HEENT: Head is normocephalic and atraumatic. No lesions. Pupils equal in size. Extraocular movements within normal limits. Nose: No septal deviation. Mouth: Oropharynx mucosa is without lesion. Neck: Supple. No lymphadenopathy, thyromegaly noted. No carotid bruit heard. Lungs: Respirations are unlabored, bilaterally clear breath sounds with no crepitation or wheeze. Cardiovascular: Heart is regular rhythm, S1S2, No extra-audible heart tones Abdomen: Abdomen is soft, right lower abdomen tenderness. Bowel sounds positive all four quadrants. No hepatosplenomegaly noted. Extremities: No clubbing, cyanosis or edema. Peripheral pulses palpable. No calf tenderness. Adequate peripheral circulation. Neurological: The patient is awake, oriented to person, place and time. Following simple commands, moving all extremities. Lab Results 02/01 06:06 WBC: 9.6 Hgb: 13.9 Hct: 41.4 Platelet: 136 L Neutrophil %: 56.3 Glucose Level: 108 Sodium Level: 141 Potassium Level: 3.6 BUN: 25.0 H Creatinine Lvl (s): 0.96 01/31 22:16 WBC: 9.5 Hgb: 14.2 Hct: 42.0 Platelet: 149 L Neutrophil %: 60.4 Glucose Level: 113 Sodium Level: 140 Potassium Level: 3.6 BUN: 25.0 H Creatinine Lvl (s): 1.12 Imaging Results and Diagnostics N/A Assessment/Plan 1. Concern for lumbar osteomyelitis/discitis 2. Elevated ESR 3. Type 2 diabetes 4. History of carcinoid tumor of the lung status post lobectomy 5. Chronic abdominal pain, back pain 6. 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 Recently had outpatient CT abdomen/pelvis for chronic abdominal pain, back pain with last 4 months which was concerning for discitis/osteomyelitis at L2-L3. Transferred to [facility] for further evaluation. ID on board for lumbar osteomyelitis/discitis. Concern for lumbar osteomyelitis/discitis. CT of the abdomen/pelvis reviewed, concerns for L2-L3 discitis/osteomyelitis. Awaiting MRI of the lumbar spine with and without contrast to evaluate for lumbar osteomyelitis/discitis. Await evaluation by neurosurgery. Will de-escalate Zosyn to ceftriaxone 2 g every 12 hours renally dosed, continue vancomycin for broad-spectrum coverage. ID to follow. Plan of care discussed in depth with patient. All questions answered. Patient verbalized understanding and is agreeable to plan of care. This is a shared/split visit with my collaborating physician Dr. Devon Padgett. Any changes to the plan will be added to end as an addendum. 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 CKD (chronic kidney disease) COPD Depression Diabetes mellitus type 2 GERD (gastroesophageal reflux disease) Hypercholesterolemia Hypertension Hyponatremia IBS (irritable bowel syndrome) Incontinence Morbid obesity MARGARETTE (obstructive sleep apnea) Osteoarthritis Positive autoantibody screening for celiac disease Stuttering Historical Breast cancer Procedure/Surgical History Cholecystectomy: 2013 Lumpectomy of breast: 2012 Eye surgery: 1968 Suspension of bladder Colonoscopy Medications Inpatient allopurinol, 100 mg= 1 tab(s), Oral, BID atenolol, 50 mg= 1 tab(s), Oral, qAM atorvastatin, 80 mg= 1 tab(s), Oral, Daily calcium (as carbonate)-vitamin D 500 mg-200 intl units oral tablet, 1 tab(s), Oral, with lunch Centrum, 1 tab(s), Oral, with lunch colchicine 0.6 mg oral tablet, 0.6 mg= 1 tab(s), Oral, qDay, PRN Colestid 1 g oral tablet, 2 gram(s)= 2 tab(s), Oral, BID Cozaar, 25 mg= 1 tab(s), Oral, qDay desvenlafaxine, 50 mg= 1 tab(s), Oral, qDay Dextrose 50% IV Push, 12.5 gram(s)= 25 mL, IV Push, AsDirected, PRN Dilaudid, 0.25 mg= 0.25 mL, IV Push, q3h, PRN doxepin 100 mg oral capsule, 100 mg= 1 cap(s), Oral, qHS DuoNeb, 3 mL, Inhalation, q4hRT, PRN Fish Oil 1000 mg oral capsule, 2000 mg= 2 cap(s), Oral, BID Gemtesa 75 mg oral tablet, 75 mg, Oral, qDay HumuLIN R, Give 0-10 units/dose, Subcutaneous, q6hr hydroCHLOROthiazide, 6.25 mg= 0.5 tab(s), Oral, qDay magnesium oxide, 400 mg= 1 tab(s), Oral, qDay omeprazole, 40 mg= 1 cap(s), Oral, qAM oxybutynin 10 mg/24 hr oral tablet, extended release, 10 mg= 2 tab(s), Oral, qDay pregabalin, 50 mg= 1 cap(s), Oral, TID Tylenol, 650 mg= 2 tab(s), Oral, q4h, PRN vancomycin, 2000 mg= 500 mL, IV Piggyback, qDay Vitamin D3 1250 mcg (50,000 intl units) oral capsule, 1250 mcg= 1 cap(s), Oral, qWeek Xalatan 0.005% ophthalmic solution, 1 drop(s), Eyes, both, qHS Zofran, 4 mg= 2 mL, IV Push, q4h, PRN Zosyn, 3.375 gram(s)= 50 mL, IV Piggyback, q8h Home albuterol MDI (90 mcg/inh) CFC free inhalation aerosol, 2 puff(s), Inhalation, q4h, PRN allopurinol 100 mg oral tablet, 100 mg= 1 tab(s), Oral, BID atenolol 50 mg oral tablet, 50 mg= 1 tab(s), Oral, qAM atorvastatin 80 mg oral tablet, 80 mg= 1 tab(s), Oral, Daily, 3 refills BD UF MINI PEN NEEDLE [id number] calcium-vitamin D 600 mg-5 mcg (200 intl units) oral capsule, 1 cap(s), Oral, with lunch ciprofloxacin 500 mg oral tablet colchicine 0.6 mg oral capsule, 0.6 mg= 1 cap(s), Oral, qDay, PRN Colestid 1 g oral tablet, 2 gram(s)= 2 tab(s), Oral, BID desvenlafaxine (as succinate) 50 mg oral tablet, extended release, 50 mg= 1 tab(s), Oral, qDay diclofenac sodium 75 mg oral delayed release tablet, 75 mg= 1 tab(s), Oral, BID, Patient Unsure doxepin 100 mg oral capsule, 100 mg= 1 cap(s), Oral, qHS DuoNeb, 3 mL, Inhalation, q2hRT, PRN Fish Oil 1000 mg oral capsule, 2000 mg= 2 cap(s), Oral, BID FREESTYLE JOSE RAUL 2 SENSOR FREESTYLE LITE TEST STRIP furosemide 20 mg oral tablet, 20 mg= 1 tab(s), Oral, BID Gemtesa 75 mg oral tablet, 75 mg= 1 tab(s), Oral, qDay HumaLOG KwikPen 100 units/mL injectable PEN, 35 unit(s), Subcutaneous, TIDAC, 3 refills hydrochlorothiazide-valsartan 12.5 mg-80 mg oral tablet, 0.5 tab(s), Oral, qDay Lumigan 0.01% ophthalmic solution, 1 drop(s), Eyes, both, qHS magnesium oxide 400 mg oral tablet, 400 mg= 1 tab(s), Oral, qDay omeprazole 40 mg oral delayed release capsule, 40 mg= 1 cap(s), Oral, qAM oxybutynin 10 mg/24 hr oral tablet, extended release, 10 mg= 1 tab(s), Oral, qDay oxyCODONE 5 mg oral tablet ( IMMEDIATE release ), 5 mg= 1 tab(s), Oral, q6h, PRN Ozempic 8 mg/3 mL (2 mg dose) subcutaneous solution, 2 mg, Subcutaneous, qWeek, 3 refills pregabalin, 50 mg, Oral, TID Therems M oral tablet, 1 tab(s), Oral, with lunch Tresiba FlexTouch 200 units/mL 3 mL subcutaneous solution, See Instructions, 3 refills Vitamin D3 1250 mcg (50,000 intl units) oral capsule, 1250 mcg= 1 cap(s), Oral, qWeek, 1 refills Allergies Bee Stings(Severe) Difficulty breathing morphine(Severe) Anaphylaxis Eggs (Mild) Nausea and vomiting Brintellix HYDROcodone aspirin calcium carbonate Unknown codeine Amnesia, Altered mental status flu vaccines Unknown gabapentin Abnormal muscle function influenza virus vaccine, inactivated penicillin propoxyphene Social History Smoking Status - 11/05/2017 Never smoker Alcohol - No Risk, 02/19/2017 Use: Current. Frequency: 1-2 times per year., 09/14/2018 Home/Environment Domestic Concerns: None. Living situation: Home with assistance. Lives In: Single level home. Current Home Treatments Blood glucose monitoring, BIPAP. 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 Marital Status: Unmarried., 02/02/2021 Nutrition/Health Type of diet: Regular. Appetite Good. Eating Difficulties No teeth, DENTURES UPPERS. Caffeine intake amount: 1 CAN SODA/DAY., 02/02/2021 Substance Abuse - No Risk, 02/19/2017 Use: Never., 09/14/2018 Tobacco - High Risk, 02/24/2020 Tobacco Use: Former smoker, quit more than 30 days ago., 09/14/2018 Family History Breast cancer: Mother. Diabetes mellitus type 2: Mother. Heart attack: Father. Heart disease: Father. Skin cancer: Sister. Health Status Family Member(s) Sister: History is negative Family Member(s) Relationship: Father, Age: 49 Years, Cause: DC Immunizations hepatitis B adult vaccine: 0 unknown unit (01/23/97) hepatitis B adult vaccine: 0 unknown unit (06/27/96) hepatitis B adult vaccine: 0 unknown unit (05/09/96) pneumococcal 13-valent conjugate vaccine: 0.5 unknown unit (07/27/21) SARS-CoV-2 (COVID-19) mRNA-1273 vaccine: 0.5 unknown unit (11/15/20) SARS-CoV-2 (COVID-19) mRNA-1273 vaccine: 0.5 unknown unit (10/17/20) tetanus/diphth/pertuss (Tdap) adult/adol: 0.5 unknown unit (02/02/22) tetanus/diphth/pertuss (Tdap) adult/adol: 0.5 mL (06/19/20) zoster vaccine, inactivated: 1 unknown unit (02/02/22) Digitally Signed by MOMO GARLAND on 02/02/2024 12:51 PM [facility] 02-01-2024 History and physical note Date of Service February 01 2024 Chief Complaint Back pain History of Present Illness This is a 68-year-old female with a past medical history consistent with T2DM, hypertension, hyperlipidemia, morbid obesity, 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 The patient had an outpatient CTAP that revealed evidence of discitis, osteomyelitis of the L2-L3 vertebra. CTAP performed due to patient complaints of chronic abdominal pain over the last 2 to 3 months. The patient proceeded to for further evaluation of possible lumbar discitis, osteomyelitis. Pertinent labs, CBC and CMP without significant arrangement. UA grossly unremarkable. Patient initially on IV vancomycin, IV Zosyn. MRI of the lumbar spine with and without contrast ordered, pending. On exam, patient complaining of low back pain, nursing at bedside to discuss care. Patient denies any other complaints including chest pain, shortness of breath, fevers. Denies any weakness or numbness in her legs. Denies any bowel or bladder continence. Vital signs are stable at time of evaluation. Review of Systems Complete detailed review of systems obtained and all pertinent positives and negatives are noted in the history of present illness. Physical Exam Vitals and Measurements T: 36.6 C (Oral) HR: 88 RR: 18 BP: 118/66 SpO2: 96% HT: 175.3 cm WT: 134.1 kg BMI: 43.64 Weight Dosing Weight: 134.1 kg (02/01/24) Physical Examination General: No apparent distress. Alert and appropriate. Obese HEENT: NCAT EOMI Neck: Supple. No appreciable elevation in JVP. Cardiovascular: S1 S2 normal. No extra-audible heart tones. Respiratory: Bilaterally clear breath sounds with no crepitation or wheeze. Abdominal: Soft, nontender and nonrigid. No guarding. Bowel sounds present. Extremities: No edema. Adequate peripheral circulation. Neurological: Grossly intact without focal deficit. Cerebellar function preserved. Skin: Intact. Dry. No rash. Lab Results No 36 Hour Lab Data Imaging Results and Diagnostics IMPRESSION: CTAP, personally reviewed 1. Prominent discitis/osteomyelitis at L2-3. A drainable fluid collection is not grossly evident on this exam. 2. No other acute abnormality identified. Moderate sigmoid diverticulosis without diverticulitis. Assessment/Plan L2-L3 osteomyelitis discitis Back pain CKD COPD T2DM Hypertension History carcinoid tumor of the lung status post lobectomy Morbid obesity Patient was admitted for intravenous antibiotics given CT AP that demonstrated possible L2-L3 osteomyelitis, discitis. IV vancomycin, IV Zosyn initiated. Will ask for infectious disease input on antibiotic management. Orthopedics consulted for any surgical intervention that may be needed. Help guide management, MRI lumbar spine with and without contrast ordered. Patient is n.p.o. status in case intervention is deemed necessary, chemical DVT prophylaxis held. CBC and BMP ordered daily and replete electrolytes as necessary. IV Dilaudid for pain control. IV Zofran for nausea control. DVT prophylaxis: SCDs The labs, the imaging were personally reviewed this case. The case was personally discussed with the ED physician. Continue patient's home chronic medication pending pharmacy verification. Patient is full code 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 CKD (chronic kidney disease) COPD Depression Diabetes mellitus type 2 GERD (gastroesophageal reflux disease) Hypercholesterolemia Hypertension Hyponatremia IBS (irritable bowel syndrome) Incontinence Morbid obesity MARGARETTE (obstructive sleep apnea) Osteoarthritis Positive autoantibody screening for celiac disease Stuttering Historical Breast cancer Procedure/Surgical History Cholecystectomy: 2013 Lumpectomy of breast: 2012 Eye surgery: 1969 Suspension of bladder Colonoscopy Medications Home Medications (30) Active albuterol MDI (90 mcg/inh) CFC free inhalation aerosol 2 puff(s), PRN, Inhalation, q4h allopurinol 100 mg oral tablet 100 mg = 1 tab(s), Oral, BID atenolol 50 mg oral tablet 50 mg = 1 tab(s), Oral, qAM atorvastatin 80 mg oral tablet 80 mg = 1 tab(s), Oral, Daily BD UF MINI PEN NEEDLE [id number] calcium-vitamin D 600 mg-5 mcg (200 intl units) oral capsule 1 cap(s), Oral, with lunch ciprofloxacin 500 mg oral tablet colchicine 0.6 mg oral capsule 0.6 mg = 1 cap(s), PRN, Oral, qDay Colestid 1 g oral tablet 2 gram(s) = 2 tab(s), Oral, BID desvenlafaxine (as succinate) 50 mg oral tablet, extended release 50 mg = 1 tab(s), Oral, qDay diclofenac sodium 75 mg oral delayed release tablet 75 mg = 1 tab(s), Oral, BID doxepin 100 mg oral capsule 100 mg = 1 cap(s), Oral, qHS DuoNeb 3 mL, PRN, Inhalation, q2hRT Fish Oil 1000 mg oral capsule 2,000 mg = 2 cap(s), Oral, BID FREESTYLE JOSE RAUL 2 SENSOR FREESTYLE LITE TEST STRIP furosemide 20 mg oral tablet 20 mg = 1 tab(s), Oral, BID Gemtesa 75 mg oral tablet 75 mg = 1 tab(s), Oral, qDay HumaLOG KwikPen 100 units/mL injectable PEN 35 unit(s), Subcutaneous, TIDAC hydrochlorothiazide-valsartan 12.5 mg-80 mg oral tablet 0.5 tab(s), Oral, qDay Lumigan 0.01% ophthalmic solution 1 drop(s), Eyes, both, qHS magnesium oxide 400 mg oral tablet 400 mg = 1 tab(s), Oral, qDay omeprazole 40 mg oral delayed release capsule 40 mg = 1 cap(s), Oral, qAM oxybutynin 10 mg/24 hr oral tablet, extended release 10 mg = 1 tab(s), Oral, qDay oxyCODONE 5 mg oral tablet ( IMMEDIATE release ) 5 mg = 1 tab(s), PRN, Oral, q6h Ozempic 8 mg/3 mL (2 mg dose) subcutaneous solution 2 mg, Subcutaneous, qWeek pregabalin 50 mg, Oral, TID Therems M oral tablet 1 tab(s), Oral, with lunch Tresiba FlexTouch 200 units/mL 3 mL subcutaneous solution See Instructions Vitamin D3 1250 mcg (50,000 intl units) oral capsule 1,250 mcg = 1 cap(s), Oral, qWeek Allergies Bee Stings(Severe) Difficulty breathing morphine(Severe) Anaphylaxis Eggs (Mild) Nausea and vomiting Brintellix HYDROcodone aspirin calcium carbonate Unknown codeine Amnesia, Altered mental status flu vaccines Unknown gabapentin Abnormal muscle function influenza virus vaccine, inactivated penicillin propoxyphene Social History Smoking Status - 11/05/2017 Never smoker Alcohol - No Risk, 02/19/2017 Use: Current. Frequency: 1-2 times per year., 09/14/2018 Home/Environment Domestic Concerns: None. Living situation: Home with assistance. Lives In: Single level home. Current Home Treatments Blood glucose monitoring, BIPAP. 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 Marital Status: Unmarried., 02/02/2021 Nutrition/Health Type of diet: Regular. Appetite Good. Eating Difficulties No teeth, DENTURES UPPERS. Caffeine intake amount: 1 CAN SODA/DAY., 02/02/2021 Substance Abuse - No Risk, 02/19/2017 Use: Never., 09/14/2018 Tobacco - High Risk, 02/24/2020 Tobacco Use: Former smoker, quit more than 30 days ago., 09/14/2018 Family History Breast cancer: Mother. Diabetes mellitus type 2: Mother. Heart attack: Father. Heart disease: Father. Skin cancer: Sister. Health Status Family Member(s) Sister: History is negative Family Member(s) Relationship: Father, Age: 49 Years, Cause: [place] Immunizations hepatitis B adult vaccine: 0 unknown unit (01/23/97) hepatitis B adult vaccine: 0 unknown unit (06/27/96) hepatitis B adult vaccine: 0 unknown unit (05/09/96) pneumococcal 13-valent conjugate vaccine: 0.5 unknown unit (07/27/21) SARS-CoV-2 (COVID-19) mRNA-1273 vaccine: 0.5 unknown unit (11/15/20) SARS-CoV-2 (COVID-19) mRNA-1273 vaccine: 0.5 unknown unit (10/17/20) tetanus/diphth/pertuss (Tdap) adult/adol: 0.5 unknown unit (02/02/22) tetanus/diphth/pertuss (Tdap) adult/adol: 0.5 mL (06/19/20) zoster vaccine, inactivated: 1 unknown unit (02/02/22) Code Status Code Status - Ordered -- 02/01/24 20:58:00 EDT, Full Code, Constant Order Digitally Signed by FABI REYES DO on 02/01/2024 10:46 PM [facility] 02-01-2024 Hospital Discharge instructions Patient Education 02/01/2024 12:12:44 Abdominal Pain, Unknown Cause, (Female) Unknown Causes of Abdominal Pain (Female) The exact cause of your belly (abdominal) pain is not clear. This does not mean that this is something to worry about. Everyone likes to know the exact cause of the problem. But sometimes with belly pain, there is no clear-cut cause, and this could be a good thing. The good news is that your symptoms can be treated, and you will feel better. Your condition does not seem serious now. But sometimes the signs of a serious problem may take more time to appear. For this reason, it is important for you to watch for any new symptoms, problems, or worsening of your condition. Over the next few days, the abdominal pain may come and go. Or it may be constant. Other common symptoms can include nausea and vomiting. Sometimes it can be difficult to tell if you feel nauseous. You may just feel bad and not connect that feeling to nausea. Constipation, diarrhea, and a fever may go along with the pain. The pain may continue even if treated correctly over the following days. Depending on how things go, sometimes the cause can become clear and may need more or different treatment. Additional evaluations, medicines, or tests may also be needed. Home care Your healthcare provider may prescribe medicine for pain, symptoms, or an infection. Follow the healthcare provider's instructions for taking these medicines. General care Rest as much as you can until your next exam. No strenuous activities. Try to find positions that ease discomfort. A small pillow placed on the abdomen may help relieve pain. Something warm on your abdomen (such as a heating pad) may help, but be careful not to burn yourself. Diet Don t force yourself to eat, especially if having cramps, vomiting, or diarrhea. Water is important so you don't get dehydrated. Soup may also be good. Sports drinks may also help, especially if they are not too acidic. Don't drink sugary drinks as this can make things worse. Take liquids in small amounts. Don t guzzle them. Caffeine sometimes makes the pain and cramping worse. Don t take dairy products if you have vomiting or diarrhea. Don't eat large amounts at a time. Wait a few minutes between bites. Eat a diet low in fiber (called a low-residue diet). Foods allowed include refined breads, white rice, fruit and vegetable juices without pulp, tender meats. These foods will pass more easily through the intestine. Don t have whole-grain foods, whole fruits and vegetables, meats, seeds and nuts, fried or fatty foods, dairy, alcohol and spicy foods until your symptoms go away. Follow-up care Follow up with your healthcare provider, or as advised, if your pain does not begin to improve in the next 24 hours. Call 911 Call 911 if any of these occur: Trouble breathing Confusion Fainting or loss of consciousness Rapid heart rate Seizure When to seek medical advice Call your healthcare provider right away if any of these occur: Pain gets worse or moves to the right lower abdomen New or worsening vomiting or diarrhea Swelling of the abdomen Unable to pass stool for more than 3 days Fever of 100.4 F (38 C) or higher, or as directed by your healthcare provider. Blood in vomit or bowel movements (dark red or black color) Yellow color of eyes and skin (jaundice) Weakness, dizziness Chest, arm, back, neck, or jaw pain Unexpected vaginal bleeding or missed period Can't keep down liquids or water and you are getting dehydrated [id number] [employer]. [address] [place] [address]. All rights reserved. This information is not intended as a substitute for professional medical care. Always follow your healthcare professional's instructions. 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 IV vancomycin, IV Zosyn initiated. Will ask for infectious disease input on antibiotic management. Orthopedics consulted for any surgical intervention that may be needed. Help guide management, MRI lumbar spine with and without contrast ordered. Patient is n.p.o. status in case intervention is deemed necessary, chemical DVT prophylaxis held. CBC and BMP ordered daily and replete electrolytes as necessary. IV Dilaudid for pain control. IV Zofran for nausea control. DVT prophylaxis: SCDs The labs, the imaging were personally reviewed this case. The case was personally discussed with the ED physician. Continue patient's home chronic medication pending pharmacy verification. Patient is full code Future Appointments Appointment Date:04/02/2024 11:00:00 AM Scheduled Provider: Location:RAD Appointment Type:MRI Spine Lumbar w/ + w/o Contrast Appointment Date:04/06/2024 08:00:00 AM Scheduled Provider:AMALIA BARRERA MD Location:[facility]UR[facility] Appointment Type:NS OV Appointment Date:04/26/2024 02:15:00 PM Scheduled Provider:JENNI MARCUS MD Location:[facility] Appointment Type:ENDO OV Future Scheduled Tests Laboratory* Thyroid Stimulating Hormone 04/13/24 * Thyroid Stimulating Hormone 06/23/23 * Free T4 04/13/24 * A1C Hemoglobin 04/13/24 * Complete Blood Count 06/23/23 * Free T3 04/13/24 * Lipid Profile 04/13/24 * Lipid Profile 06/23/23 * Albumin/Creatinine Ratio, Random Urine 12/09/23 * Albumin/Creatinine Ratio, Random Urine 07/07/23 * Albumin/Creatinine Ratio, Random Urine 04/13/24 * Albumin/Creatinine Ratio, Random Urine 06/23/23 * Vitamin D Level 04/13/24 * Complete Metabolic Panel 04/13/24 * Complete Metabolic Panel 06/23/23 Radiology* MRI Spine Lumbar w/ + w/o Contrast 04/02/24 [facility] 10-16-2024 Note ORIGINAL EXAMINATION: CT OF THE ABDOMEN AND PELVIS WITH CONTRAST 02/01/2024 1:51 pm TECHNIQUE: CT of the abdomen and pelvis was performed with the administration of intravenous contrast. Multiplanar reformatted images are provided for review. Automated exposure control, iterative reconstruction, and/or weight based adjustment of the mA/kV was utilized to reduce the radiation dose to as low as reasonably achievable. COMPARISON: CT PET May 18, 2023 HISTORY: ORDERING SYSTEM PROVIDED HISTORY: Reason for Exam: Pt c/o RLQ abdominal pain x 4 months. Pt denies n/v/d. abdominal pain FINDINGS: Findings at the L2-3 disc show marked progression since radiographs December 06, 2023. There is endplate vertebral destruction with some paravertebral soft tissue swelling. No definite evidence for epidural fluid collection. Minor degenerative changes elsewhere in the spine are similar to the prior exam. Moderate hip osteoarthritis is noted. The lung bases are unremarkable. Small sliding hiatal hernia noted. Liver, spleen, adrenal glands and pancreas are unremarkable. A right renal cyst is present. No other kidney finding. No adenopathy, free air or free fluid seen. Solid pelvic organs and urinary bladder are grossly normal. Moderate diverticulosis is present at the sigmoid colon with scattered diverticula elsewhere. No evidence for diverticulitis. No other GI tract abnormality seen. The appendix is normal. No additional contributory finding. IMPRESSION: 1. Prominent discitis/osteomyelitis at L2-3. A drainable fluid collection is not grossly evident on this exam. 2. No other acute abnormality identified. Moderate sigmoid diverticulosis without diverticulitis. Interpreted by: Daniel Perry MD Preliminary Report By: Daniel Perry MD Electronically signed By Daniel Perry MD Dictated Date: 02/01/2024 1:53:12 PM Prelim Date: 02/01/2024 1:58:29 PM Sign Date: 02/01/2024 1:58:29 PM Ordering Provider: [facility]10-14-2024 Hospital Discharge instructions Patient Education 01/30/2024 11:47:47 Abdominal Pain, Unknown Cause, (Female) Unknown Causes of Abdominal Pain (Female) The exact cause of your belly (abdominal) pain is not clear. This does not mean that this is something to worry about. Everyone likes to know the exact cause of the problem. But sometimes with belly pain, there is no clear-cut cause, and this could be a good thing. The good news is that your symptoms can be treated, and you will feel better. Your condition does not seem serious now. But sometimes the signs of a serious problem may take more time to appear. For this reason, it is important for you to watch for any new symptoms, problems, or worsening of your condition. Over the next few days, the abdominal pain may come and go. Or it may be constant. Other common symptoms can include nausea and vomiting. Sometimes it can be difficult to tell if you feel nauseous. You may just feel bad and not connect that feeling to nausea. Constipation, diarrhea, and a fever maygo along with the pain. The pain may continue even if treated correctly over the following days. Depending on how things go, sometimes the cause can become clear and may need more or different treatment. Additional evaluations, medicines, or tests may also be needed. Home care Your healthcare provider may prescribe medicine for pain, symptoms, or an infection. Follow the healthcare provider's instructions for taking these medicines. General care Rest as much as you can until your next exam. No strenuous activities. Try to find positions that ease discomfort. A small pillow placed on the abdomen may help relieve pain. Something warm on your abdomen (such as a heating pad) may help, but be careful not to burn yourself. Diet Don t force yourself to eat, especially if having cramps, vomiting, or diarrhea. Water is important so you don't get dehydrated. Soup may also be good. Sports drinks may also help,especially if they are not too acidic. Don't drink sugary drinks as this can make things worse. Take liquids in small amounts. Don t guzzle them. Caffeine sometimes makes the pain and cramping worse. Don t take dairy products if you have vomiting or diarrhea. Don't eat large amounts at a time. Wait a few minutes between bites. Eat a diet low in fiber (called a low-residue diet). Foods allowed include refined breads, white rice, fruit and vegetable juices without pulp, tender meats. These foods will pass more easily throughthe intestine. Don t have whole-grain foods, whole fruits and vegetables, meats, seeds and nuts, fried or fatty foods, dairy, alcohol and spicy foods until your symptoms go away. Follow-up care Follow up with your healthcare provider, or as advised, if your pain does not begin to improve in the next 24 hours. Call 911 Call 911 if any of these occur: Trouble breathing Confusion Fainting or loss of consciousness Rapid heart rate Seizure When to seek medical advice Call your healthcare provider right away if any of these occur: Pain gets worse or moves to the right lower abdomen New or worsening vomiting or diarrhea Swelling of the abdomen Unable to pass stool for more than 3 days Fever of 100.4 F (38 C) or higher, or as directed by your healthcare provider. Blood in vomit or bowel movements (dark red or black color) Yellow color of eyes and skin (jaundice) Weakness, dizziness Chest, arm, back, neck, or jaw pain Unexpected vaginal bleeding or missed period Can't keep down liquids or water and you are getting dehydrated [id number] [employer]. [address] [place] [address]. All rights reserved. This information is not intended as a substitute for professional medical care. Always follow yourhealthcare professional's instructions. 01/30/2024 11:47:47 Abdominal Pain Abdominal Pain Abdominal pain is pain in the stomach or belly area. Everyone has this pain from time to time. In many cases it goes away on its own. But abdominal pain can sometimes be due to a serious problem, such as appendicitis. So it s important to know when to get help. Causes of abdominal pain There are many possible causes of abdominal pain. Common causes in adults include: Constipation, diarrhea, or gas Stomach acid flowing back up into the esophagus (acid reflux or heartburn) Severe acid reflux, called GERD (gastroesophageal reflux disease) A sore in the lining of the stomach or small intestine (peptic ulcer) Inflammation of the gallbladder, liver, or pancreas Gallstones or kidney stones Appendicitis Intestinal blockage An internal organ pushing through a muscle or other tissue (hernia) Urinary tract infections In women, menstrual cramps, fibroids, ovarian cysts, pelvic inflammatory disease, or endometriosis Inflammation or infection of the intestines, including Crohn's disease and ulcerative colitis Irritable bowel syndrome Diagnosing the cause of abdominal pain Your healthcare provider will give you a physical exam help find the cause of your pain. If needed,you will have tests. Belly pain has many possible causes. So it can be hard to find the reason for your pain. Giving details about your pain can help. Tell your provider where and when you feel the pain, and what makes it better or worse. Also let your provider know if you have other symptoms such as: Fever Tiredness Upset stomach (nausea) Vomiting Changes in bathroom habits Blood in the stool or black, tarry stool Weight loss that you can't explain (involuntary weight loss?) Also report any family history of stomach or intestinal problems, or cancers. Tell your provider about all your alcohol use and drug use. Tell your provider about all medicines you use, including herbs, vitamins, and supplements. Treating abdominal pain Some causes of pain need emergency medical treatment right away. These include appendicitis or a bowel blockage. Other problems can be treated with rest, fluids, or medicines. Your healthcare provider can give you specific instructions for treatment or self-care based on what is causing your pain. If you have vomiting or diarrhea, sip water or other clear fluids. When you are ready to eat solid foods again, start with small amounts of vigs-jp-azrqzu, low- fat foods. These include apple sauce, toast, or crackers. When to get medical care Call 911 or go to the hospital right away if you: Can t pass stool and are vomiting Are vomiting blood or have bloody diarrhea or black, tarry diarrhea Have chest, neck, or shoulder pain Feel like you might pass out Have pain in your shoulder blades with nausea Have sudden, severe belly pain Have new, severe pain unlike any you have felt before Have a belly that is rigid, hard, and hurts to touch Call your healthcare provider if you have: Pain for more than 5 days Bloating for more than 2 days Diarrhea for more than 5 days A fever of 100.4 F (38 C) or higher, or as directed by your healthcare provider Pain that gets worse Weight loss for no reason Continued lack of appetite Blood in your stool How to prevent abdominal pain Here are some tips to help prevent abdominal pain: Eat smaller amounts of food at each meal. Don't eat greasy, fried, or other high-fat foods. Don't eat foods that give you gas. Exercise regularly. Drink plenty of fluids. To help prevent GERD symptoms: Quit smoking. Reduce alcohol and foods that increase stomach acid. Don't use aspirin or wfwt-bcp-shvsmak pain and fever medicines, if possible. This includes nonsteroidal anti-inflammatory drugs (NSAIDs). Lose excess weight. Finish eating at least 2 hours before you go to bed or lie down. Raise the head of your bed. [id number] [employer]. [address] [place] [address], [place] [address]. All rights reserved. This information is not intended as a substitute for professional medical care. Always follow yourhealthcare professional's instructions. Follow Up Care 01/30/2024 10:34:29 With:Pain management Address: When:2-4 days Comments:Since you are a patient that pain management, pain management needs to be the only one prescribing medication to control your pain at this point. [facility] 10-14-2024 Note Discharge Instructions Thank you for allowing [facility] to assist you with your healthcare needs. The following is importantdischarge information regarding your hospital visit. Diagnosis from Today's Visit Chronic abdominal pain What to Do Next Instructions from Your Care Team No qualifying data available. Post Acute Orders No qualifying data available. You Need to Schedule the Following Appointments Follow Up with Pain management When:Within 2-4 days Additional Information: Since you are a patient that pain management, pain management needs to be the only one prescribing medication to control your pain at this point. Allergies Bee Stings(Severe) Difficulty breathing morphine(Severe) Anaphylaxis Eggs (Mild) Nausea and vomiting Brintellix HYDROcodone aspirin calcium carbonate Unknown codeine Amnesia, Altered mental status flu vaccines Unknown gabapentin Abnormal muscle function influenza virus vaccine, inactivated penicillin propoxyphene Medications Please ask your primary doctor or pharmacist before taking any other medication not listed, including over the counter drugs, herbal medications, vitamins and or supplements as they may interact withyour home medications. What How Much When Instructions Last Dose Unchanged albuterol (albuterol MDI (90 mcg/ inh) CFC freeinhalation aerosol) 2 puff(s) by inhalation Every 4 hours as needed for as needed for wheezing Unchanged albuterol-ipratropium (DuoNeb) 3 Milliliter by inhalation Every 2 Hours as needed for Shortness of breath (SOB) Unchanged allopurinol (allopurinol 100 mg oral tablet) 1 tab(s) by mouth Two (2) times a day Unchanged atenolol (atenolol 50 mg oral tablet) 1 tab(s) by mouth Once a day (in the morning) Unchanged atorvastatin (atorvastatin 80 mg oral tablet) 1 tab(s) by mouth Every day can be done in pill pack from next month Unchanged bimatoprost ophthalmic (Lumigan 0.01% ophthalmic solution) 1 Drops Both eyes Daily at bedtime Unchanged calcium-vitamin D (calcium-vitamin D 600 mg-5 mcg (200 intl units) oral capsule) 1 cap by mouth With lunch Unchanged cholecalciferol (Vitamin D3 1250 mcg (50,000 intl units) oral capsule) 1 cap by mouth Every week Unchanged ciprofloxacin (ciprofloxacin 500 mg oral tablet) TAKE 1 TABLET BY MOUTH TWICE A DAY Unchanged colchicine (colchicine 0.6 mg oral capsule) 1 cap by mouth Once a day as needed for Gout pain Unchanged colestipol (Colestid 1 g oral tablet) 2 tab(s) by mouth Two (2) times a day Unchanged desvenlafaxine (desvenlafaxine (as succinate) 50 mg oral tablet, extended release) 1 tab(s) by mouth Once a day Unchanged diclofenac (diclofenac sodium 75 mg oral delayed release tablet) 1 tab(s) by mouth Two (2) times a day Unchanged doxepin (doxepin 100 mg oral capsule) 1 cap by mouth Daily at bedtime Unchanged furosemide (furosemide 20 mg oral tablet) 1 tab(s) by mouth Two (2) times a day Resume on Unchanged hydrochlorothiazide-valsartan (hydrochlorothiazide-valsartan 12.5 mg- 80 mg oral tablet) 0.5 tab(s) by mouth Once a day Unchanged insulin degludec (Tresiba FlexTouch 200 units/ mL 3 mL subcutaneous solution) See instructions 85 unit(s) Subcutaneous qDay Unchanged insulin lispro (HumaLOG) (HumaLOG KwikPen 100 units/ mL injectable PEN) 35 unit(s) Subcutaneous Three (3) times a day before meals Unchanged magnesium oxide (magnesium oxide 400 mg oral tablet) 1 tab(s) by mouth Once a day Unchanged Misc Medication (BD UF MINI PEN NEEDLE [id number]) use five times a day with INSULIN and if needed Unchanged Misc Medication (FREESTYLE JOSE RAUL 2 SENSOR) use as directed Unchanged Misc Medication (FREESTYLE LITE TEST STRIP) use 1 TEST STRIP to TEST BLOOD SUGAR four times a day Unchanged multivitamin with minerals (Therems M oral tablet) 1 tab(s) by mouth With lunch Unchanged omega-3 polyunsaturated fatty acids (Fish Oil 1000 mg oral capsule) 2 cap by mouth Two (2) times a day Unchanged omeprazole (omeprazole 40 mg oral delayed release capsule) 1 cap by mouth Once a day (in the morning) Unchanged oxybutynin (oxybutynin 10 mg/ 24 hr oral tablet, extended release) 1 tab(s) by mouth Once a day Unchanged oxyCODONE (oxyCODONE 5 mg oral tablet ( IMMEDIATE release )) 1 tab(s) by mouth Every 6 hours as needed for for pain Unchanged pregabalin 50 Milligram by mouth Three (3) times a day Unchanged semaglutide (Ozempic 8 mg/ 3 mL (2 mg dose) subcutaneous solution) 2 Milligram Subcutaneous Every week in the abdomen, thigh, or upper arm Unchanged vibegron (Gemtesa 75 mg oral tablet) 1 tab(s) by mouth Once a day Please take this list to your next doctor s visit. Bring all medications you take, including over the counter medications, herbals and other supplements with you to your doctor s visit. Patients and families are reminded to discard old lists and to update any records with all medication providers or retail pharmacies. Education Materials Unknown Causes of Abdominal Pain (Female) The exact cause of your belly (abdominal) pain is not clear. This does not mean that this is something to worry about. Everyone likes to know the exact cause of the problem. But sometimes with belly pain, there is no clear-cut cause, and this could be a good thing. The good news is that your symptoms can be treated, and you will feel better. Your condition does not seem serious now. But sometimes the signs of a serious problem may take more time to appear. For this reason, it is important for you to watch for any new symptoms, problems, or worsening of your condition. Over the next few days, the abdominal pain may come and go. Or it may be constant. Other common symptoms can include nausea and vomiting. Sometimes it can be difficult to tell if you feel nauseous. You may just feel bad and not connect that feeling to nausea. Constipation, diarrhea, and a fever maygo along with the pain. The pain may continue even if treated correctly over the following days. Depending on how things go, sometimes the cause can become clear and may need more or different treatment. Additional evaluations, medicines, or tests may also be needed. Home care Your healthcare provider may prescribe medicine for pain, symptoms, or an infection. Follow the healthcare provider's instructions for taking these medicines. General care Rest as much as you can until your next exam. No strenuous activities. Try to find positions that ease discomfort. A small pillow placed on the abdomen may help relieve pain. Something warm on your abdomen (such as a heating pad) may help, but be careful not to burn yourself. Diet Don t force yourself to eat, especially if having cramps, vomiting, or diarrhea. Water is important so you don't get dehydrated. Soup may also be good. Sports drinks may also help,especially if they are not too acidic. Don't drink sugary drinks as this can make things worse. Take liquids in small amounts. Don t guzzle them. Caffeine sometimes makes the pain and cramping worse. Don t take dairy products if you have vomiting or diarrhea. Don't eat large amounts at a time. Wait a few minutes between bites. Eat a diet low in fiber (called a low-residue diet). Foods allowed include refined breads, white rice, fruit and vegetable juices without pulp, tender meats. These foods will pass more easily throughthe intestine. Don t have whole-grain foods, whole fruits and vegetables, meats, seeds and nuts, fried or fatty foods, dairy, alcohol and spicy foods until your symptoms go away. Follow-up care Follow up with your healthcare provider, or as advised, if your pain does not begin to improve in the next 24 hours. Call 911 Call 911 if any of these occur: Trouble breathing Confusion Fainting or loss of consciousness Rapid heart rate Seizure When to seek medical advice Call your healthcare provider right away if any of these occur: Pain gets worse or moves to the right lower abdomen New or worsening vomiting or diarrhea Swelling of the abdomen Unable to pass stool for more than 3 days Fever of 100.4 F (38 C) or higher, or as directed by your healthcare provider. Blood in vomit or bowel movements (dark red or black color) Yellow color of eyes and skin (jaundice) Weakness, dizziness Chest, arm, back, neck, or jaw pain Unexpected vaginal bleeding or missed period Can't keep down liquids or water and you are getting dehydrated [id number] [employer]. [address] [place] [address], [place] [address]. All rights reserved. This information is not intended as a substitute for professional medical care. Always follow yourhealthcare professional's instructions. Abdominal Pain Abdominal pain is pain in the stomach or belly area. Everyone has this pain from time to time. In many cases it goes away on its own. But abdominal pain can sometimes be due to a serious problem, such as appendicitis. So it s important to know when to get help. Causes of abdominal pain There are many possible causes of abdominal pain. Common causes in adults include: Constipation, diarrhea, or gas Stomach acid flowing back up into the esophagus (acid reflux or heartburn) Severe acid reflux, called GERD (gastroesophageal reflux disease) A sore in the lining of the stomach or small intestine (peptic ulcer) Inflammation of the gallbladder, liver, or pancreas Gallstones or kidney stones Appendicitis Intestinal blockage An internal organ pushing through a muscle or other tissue (hernia) Urinary tract infections In women, menstrual cramps, fibroids, ovarian cysts, pelvic inflammatory disease, or endometriosis Inflammation or infection of the intestines, including Crohn's disease and ulcerative colitis Irritable bowel syndrome Diagnosing the cause of abdominal pain Your healthcare provider will give you a physical exam help find the cause of your pain. If needed,you will have tests. Belly pain has many possible causes. So it can be hard to find the reason for your pain. Giving details about your pain can help. Tell your provider where and when you feel the pain, and what makes it better or worse. Also let your provider know if you have other symptoms such as: Fever Tiredness Upset stomach (nausea) Vomiting Changes in bathroom habits Blood in the stool or black, tarry stool Weight loss that you can't explain (involuntary weight loss?) Also report any family history of stomach or intestinal problems, or cancers. Tell your provider about all your alcohol use and drug use. Tell your provider about all medicines you use, including herbs, vitamins, and supplements. Treating abdominal pain Some causes of pain need emergency medical treatment right away. These include appendicitis or a bowel blockage. Other problems can be treated with rest, fluids, or medicines. Your healthcare provider can give you specific instructions for treatment or self-care based on what is causing your pain. If you have vomiting or diarrhea, sip water or other clear fluids. When you are ready to eat solid foods again, start with small amounts of tldw-bb-ynuqqt, low- fat foods. These include apple sauce, toast, or crackers. When to get medical care Call 911 or go to the hospital right away if you: Can t pass stool and are vomiting Are vomiting blood or have bloody diarrhea or black, tarry diarrhea Have chest, neck, or shoulder pain Feel like you might pass out Have pain in your shoulder blades with nausea Have sudden, severe belly pain Have new, severe pain unlike any you have felt before Have a belly that is rigid, hard, and hurts to touch Call your healthcare provider if you have: Pain for more than 5 days Bloating for more than 2 days Diarrhea for more than 5 days A fever of 100.4 F (38 C) or higher, or as directed by your healthcare provider Pain that gets worse Weight loss for no reason Continued lack of appetite Blood in your stool How to prevent abdominal pain Here are some tips to help prevent abdominal pain: Eat smaller amounts of food at each meal. Don't eat greasy, fried, or other high-fat foods. Don't eat foods that give you gas. Exercise regularly. Drink plenty of fluids. To help prevent GERD symptoms: Quit smoking. Reduce alcohol and foods that increase stomach acid. Don't use aspirin or uwob-cql-yylourx pain and fever medicines, if possible. This includes nonsteroidal anti-inflammatory drugs (NSAIDs). Lose excess weight. Finish eating at least 2 hours before you go to bed or lie down. Raise the head of your bed. [phone] [employer]. [address] [place] [address]. All rights reserved. This information is not intended as a substitute for professional medical care. Always follow yourhealthcare professional's instructions. Additional Information VACCINATE! IT SAVES LIVES! Members of the community who have not yet received the COVID-19 vaccine and would like to receive it can visit one of [facility] vaccine clinics. There are many vaccine clinic locations within the [facility]. For locations and available times, please visit [email or web address] It is important to note that some COVID mobile vaccine clinics are held outdoors and may be canceled in rainy or stormy conditions. To learn more about pediatric vaccinations (ages 5-11), we invite you to visit the [facility] webpage. [email or web address] learn more about the COVID-19 vaccine, we invite you to visit the CDC website for a list of frequently asked questions. https://www.cdc.gov/coronavirus/2019-ncov/vaccines/faq.html [facility] Patient Portal Access Instructions: Stay connected with your healthcare team and access your personal medical information anytime with the [facility] Patient Portal. If you would like a full copy of your medical records please contact the [facility] Medical Records Department Tuesday through Tuesday between 8a.m. and 4:30p.m. Please follow the directions below to access the portal: 1.Access the email account you provided upon registration to the [facility].2.Look for an invitation email from [facility].3.Open the email and access the invitation link: Accept Invitation to [facility].Fill in the required rodriges to create your account. Sign into [email or web address] with your username and password that you created in the above steps to stay up to date. You can then view a summary of results, a summary of your visits, and the ability to download your summaries to your computer or send the information securely to a physician. Remember that your healthcare information is confidential, so carefully consider who you will allow to register on the [facility] Patient Portal for access to your information. You can also access the [facility] Patient Portal on the [employer]. Simply click on Health Records under [place] and then click on the [facility] logo. HOW TO SAFELY DISPOSE OF PRESCRIPTION MEDICATIONS Please use one of the following methods to safely dispose of your unused medications. 1.Use a drug disposal kit: the drug disposal pouch allows you to safely discard your old and unuseddrugs. Ask your nurse to give you one when you are discharged.2.Visit a local take-back location: Many local pharmacies and police departments have programs that collect old and unwanted prescriptiondrugs. Call your local pharmacy or go to http://[email or web address] to find one close to you.3.Make use of household items: Use cat litter or old coffee grounds to dispose medications if other options arenot available. Mix your drugs with these household products, seal them in an airtight container andthrow it into the garbage. Call [facility]: [phone] to be sure your drugs can be disposed of in this way. Some medicines may require a different approach.4.Never flush your medications down the toilet. IF YOU HAVE BEEN PRESCRIBED AN OPIOIDS FOR PAIN If you have been prescribed an opioid (such as hydrocodone, oxycodone or morphine), it is critical to understand the possible side effects and risks of opioid pain medications. Even when taken as directed, opioids can have several side effects including: Tolerance, meaning you might need to take more of a medication for the same pain relief. Nausea, vomiting and/or constipation. Sleepiness, dizziness, dry mouth, confusion, depression or itching. Physical dependence, meaning you have withdrawal symptoms when a medication is stopped ? this can develop within a few days. KNOW YOUR RESPONSIBILITIES It is important to know exactly how much and how often to take the opioid pain medications you are prescribed. Never take opioids in higher amounts or more often than prescribed. Do not combine opioids with alcohol or other drugs that cause drowsiness, such as benzodiazepines, also known as benzos,including diazepam and alprazolam, muscle relaxants or sleep aids. Never sell or share prescriptionopioids. This is illegal. Store opioids in a secure place and out of reach of others (including children, family, friends and visitors). The last page(s) of this document has been signed and retained as a CHART COPY Signatures Patient Education Materials Abdominal Pain, Unknown Cause, (Female) Abdominal Pain Medication Leaflets My discharge plan and instructions have been reviewed and explained to me and IJENNIFER PAMELA A understand my current condition and have read and understand these discharge instructions. I have received a written copy of the plan/instructions. If I have questions, I am aware that I should contact my doctor. Patient/Vault Person Signature: Date/Time: Relationship to Patient: Witness Name/Signature: Date/Time: [facility]03-07-2024 Hospital Discharge instructions Patient Education 06/23/2023 18:38:45 COPD Flare COPD Flare You have had a flare-up of your COPD. COPD (chronic obstructive pulmonary disease) is a common lung disease. It causes your airways to get irritated and narrower. This makes it harder for you to breathe. Emphysema and chronic bronchitis are both types of COPD. This is a long-term (chronic) condition. This means you always have it. Sometimes it gets worse. When this happens, it is called a flare-up. Symptoms of COPD People with COPD may have symptoms most of the time. In a flare-up, your symptoms get worse. These symptoms may mean you are having a flare-up: Shortness of breath, shallow or rapid breathing, or wheezing that gets worse Lung infection Cough that gets worse More mucus, thicker mucus or mucus of a different color Tiredness, less energy, or trouble doing your normal activities Fever Chest tightness Your symptoms don t get better even when you use your normal medicines, inhalers, and nebulizer Trouble talking You feel confused Causes of flare-ups Unfortunately, a flare-up can happen even if you did everything right. And even if you followed your healthcare provider s instructions. Some causes of flare- ups are: Smoking or secondhand smoke Colds, the flu, or respiratory infections Air pollution Sudden change in the weather Dust, irritating chemicals, or strong fumes Not taking your medicines as prescribed Home care Here are some things you can do at home to treat a flare-up: Try not to panic. This makes it harder to breathe, and keeps you from doing the right things. Don t smoke or be around others who are smoking. Try to drink more fluids than normal during a flare-up, unless your healthcare provider has told you not to because of heart and kidney problems. More fluids can help loosen the mucus. Use your inhalers and nebulizer, if you have one, as you have been told to. If you were given antibiotics, take them until they are used up or your provider tells you to stop.It s important to finish the antibiotics, even though you feel better. This will make sure the infection has cleared. If you were given prednisone or another steroid, finish it even if you feel better. Preventing a flare-up Flare-ups happen. But the best way to treat one is to prevent it before it starts. Here are some pointers: Don t smoke or be around others who are smoking. Take your medicines as discussed with your healthcare provider. Talk with your provider about getting a flu shot every year. Also find out if you need a pneumonia shot. If there is a weather advisory warning to stay indoors, try to stay inside when possible. Try to eat healthy, exercise, and get plenty of sleep. Try to stay away from things that normally set you off. These include dust, chemical fumes, hairsprays, or strong perfumes. Follow-up care Follow up with your healthcare provider, or as advised. If a culture was done, you will be told if your treatment needs to be changed. You can call as directed for the results. If X-rays were done, you will be told of any new findings that may affect your care. Call 911 Call 911 if any of these occur: You have trouble breathing You feel confused or it s hard to wake you up You faint or lose consciousness You have a rapid heart rate You have new pain in your chest, arm, shoulder, neck, or upper back When to seek medical advice Call your healthcare provider right away if any of these occur: Wheezing or shortness of breath gets worse You need to use your inhalers more often than normal without relief Fever of 100.4 F (38 C) or higher, or as directed by your healthcare provider Coughing up lots of dark-colored or bloody mucus (sputum) Chest pain with each breath You don't start to get better within 24 hours Swelling of your ankles gets worse Dizziness or weakness [id number] [employer]. [address] [place] [address]. All rights reserved. This information is not intended as a substitute for professional medical care. Always follow yourhealthcare professional's instructions. Follow Up Care 06/23/2023 15:22:30 With:AGNES HERNANDEZ DO Address: [address] [place] [phone] When:2-4 days [facility] 03-07-2024 Note Discharge Instructions Thank you for allowing [facility] to assist you with your healthcare needs. The following is importantdischarge information regarding your hospital visit. Diagnosis from Today's Visit COPD - Chronic obstructive pulmonary disease SOB - Shortness of breath What to Do Next Instructions from Your Care Team No qualifying data available. Post Acute Orders No qualifying data available. You Need to Schedule the Following Appointments Follow Up with MALYS, AGNES A DO When Within 2-4 days Where: [address] [facility] [place] [address] [place] [address]- Allergies Bee Stings (Difficulty breathing) morphine (Anaphylaxis) Eggs (Nausea and vomiting) Brintellix HYDROcodone aspirin calcium carbonate (Unknown) codeine (Amnesia, Altered mental status) flu vaccines (Unknown) gabapentin (Abnormal muscle function) influenza virus vaccine, inactivated penicillin propoxyphene Medications Please ask your primary doctor or pharmacist before taking any other medication not listed, including over the counter drugs, herbal medications, vitamins and or supplements as they may interact withur home medications. What How Much When Instructions Last Dose New predniSONE (predniSONE 20 mg oral tablet) 3 tab(s) by mouth Once a day Duration: 4 Days Printed Prescription Unchanged albuterol (albuterol MDI (90 mcg/ inh) CFC free inhalation aerosol) 2 puff(s) by inhalation Every 4 hours as needed for as needed for wheezing Unchanged albuterol-ipratropium (DuoNeb) 3 Milliliter by inhalation Every 2 Hours as needed for Shortness of breath (SOB) Unchanged allopurinol (allopurinol 100 mg oral tablet) 1 tab(s) by mouth Two (2) times a day Unchanged atenolol (atenolol 50 mg oral tablet) 1 tab(s) by mouth Once a day (in the morning) Unchanged atorvastatin (atorvastatin 40 mg oral tablet) 1 tab(s) by mouth Daily at bedtime Unchanged bimatoprost ophthalmic (Lumigan 0.01% ophthalmic solution) 1 Drops Both eyes Daily at bedtime Unchanged calcium-vitamin D (calcium-vitamin D 600 mg-5 mcg (200 intl units) oral capsule) 1 cap by mouth With lunch Unchanged colchicine (colchicine 0.6 mg oral capsule) 1 cap by mouth Once a day as needed for Gout pain Unchanged colestipol (Colestid 1 g oral tablet) 2 tab(s) by mouth Two (2) times a day Unchanged desvenlafaxine (desvenlafaxine (as succinate) 50 mg oral tablet, extended release) 1 tab(s) by mouth Once a day Unchanged diclofenac (diclofenac sodium 75 mg oral delayed release tablet) 1 tab(s) by mouth Two (2) times a day Unchanged dilTIAZem (DilTIAZem (Eqv-Cardizem CD) 120 mg/ 24 hours oral capsule, extended release) 1cap Unchanged doxepin (doxepin 100 mg oral capsule) 1 cap by mouth Daily at bedtime Unchanged furosemide (furosemide 20 mg oral tablet) 1 tab(s) by mouth Two (2) times a day Resume on Unchanged hydrochlorothiazide-valsartan (hydrochlorothiazide-valsartan 12.5 mg- 80 mg oral tablet) 0.5 tab(s) by mouth Once a day Unchanged insulin degludec (Tresiba FlexTouch 200 units/ mL 3 mL subcutaneous solution) 100 unit(s) Subcutaneous Once a day Unchanged insulin lispro (HumaLOG) (HumaLOG KwikPen 100 units/ mL injectable PEN) 35 unit(s) Subcutaneous Three (3) times a day before meals Unchanged magnesium oxide (magnesium oxide 400 mg oral tablet) 1 tab(s) by mouth Once a day Unchanged Misc Medication (BD UF MINI PEN NEEDLE [id number]) use five times a day with INSULIN and if needed Unchanged Misc Medication (FREESTYLE JOSE RAUL 2 SENSOR) use as directed Unchanged Misc Medication (FREESTYLE LITE TEST STRIP) use 1 TEST STRIP to TEST BLOOD SUGAR four times a day Unchanged multivitamin with minerals (Therems M oral tablet) 1 tab(s) by mouth With lunch Unchanged omega-3 polyunsaturated fatty acids (Fish Oil 1000 mg oral capsule) 2 cap by mouth Two (2) times a day Unchanged omeprazole (omeprazole 40 mg oral delayed release capsule) 1 cap by mouth Once a day (in the morning) Unchanged oxybutynin (oxybutynin 10 mg/ 24 hr oral tablet, extended release) 1 tab(s) by mouth Once a day Unchanged oxyCODONE (oxyCODONE 5 mg oral tablet ( IMMEDIATE release )) 1 tab(s) by mouth Every 6 hours as needed for for pain Unchanged pregabalin 50 Milligram by mouth Three (3) times a day Unchanged semaglutide (Ozempic 4 mg/ 3 mL (1 mg dose) subcutaneous solution) 1 Milligram Subcutaneous Every week Unchanged vibegron (Gemtesa 75 mg oral tablet) 1 tab(s) by mouth Once a day Please take this list to your next doctor s visit. Bring all medications you take, including over the counter medications, herbals and other supplements with you to your doctor s visit. Patients and families are reminded to discard old lists and to update any records with all medication providers or retail pharmacies. Education Materials COPD Flare You have had a flare-up of your COPD. COPD (chronic obstructive pulmonary disease) is a common lung disease. It causes your airways to get irritated and narrower. This makes it harder for you to breathe. Emphysema and chronic bronchitis are both types of COPD. This is a long-term (chronic) condition. This means you always have it. Sometimes it gets worse. When this happens, it is called a flare-up. Symptoms of COPD People with COPD may have symptoms most of the time. In a flare-up, your symptoms get worse. These symptoms may mean you are having a flare-up: Shortness of breath, shallow or rapid breathing, or wheezing that gets worse Lung infection Cough that gets worse More mucus, thicker mucus or mucus of a different color Tiredness, less energy, or trouble doing your normal activities Fever Chest tightness Your symptoms don t get better even when you use your normal medicines, inhalers, and nebulizer Trouble talking You feel confused Causes of flare-ups Unfortunately, a flare-up can happen even if you did everything right. And even if you followed your healthcare provider s instructions. Some causes of flare- ups are: Smoking or secondhand smoke Colds, the flu, or respiratory infections Air pollution Sudden change in the weather Dust, irritating chemicals, or strong fumes Not taking your medicines as prescribed Home care Here are some things you can do at home to treat a flare-up: Try not to panic. This makes it harder to breathe, and keeps you from doing the right things. Don t smoke or be around others who are smoking. Try to drink more fluids than normal during a flare-up, unless your healthcare provider has told you not to because of heart and kidney problems. More fluids can help loosen the mucus. Use your inhalers and nebulizer, if you have one, as you have been told to. If you were given antibiotics, take them until they are used up or your provider tells you to stop.It s important to finish the antibiotics, even though you feel better. This will make sure the infection has cleared. If you were given prednisone or another steroid, finish it even if you feel better. Preventing a flare-up Flare-ups happen. But the best way to treat one is to prevent it before it starts. Here are some pointers: Don t smoke or be around others who are smoking. Take your medicines as discussed with your healthcare provider. Talk with your provider about getting a flu shot every year. Also find out if you need a pneumonia shot. If there is a weather advisory warning to stay indoors, try to stay inside when possible. Try to eat healthy, exercise, and get plenty of sleep. Try to stay away from things that normally set you off. These include dust, chemical fumes, hairsprays, or strong perfumes. Follow-up care Follow up with your healthcare provider, or as advised. If a culture was done, you will be told if your treatment needs to be changed. You can call as directed for the results. If X-rays were done, you will be told of any new findings that may affect your care. Call 911 Call 911 if any of these occur: You have trouble breathing You feel confused or it s hard to wake you up You faint or lose consciousness You have a rapid heart rate You have new pain in your chest, arm, shoulder, neck, or upper back When to seek medical advice Call your healthcare provider right away if any of these occur: Wheezing or shortness of breath gets worse You need to use your inhalers more often than normal without relief Fever of 100.4 F (38 C) or higher, or as directed by your healthcare provider Coughing up lots of dark-colored or bloody mucus (sputum) Chest pain with each breath You don't start to get better within 24 hours Swelling of your ankles gets worse Dizziness or weakness [phone] [employer]. [address] [place] [address]. All rights reserved. This information is not intended as a substitute for professional medical care. Always follow yourhealthcare professional's instructions. Additional Information VACCINATE! IT SAVES LIVES! Members of the community who have not yet received the COVID-19 vaccine and would like to receive it can visit one of [facility] vaccine clinics. There are many vaccine clinic locations within the [facility]. For locations and available times, please visit www.[email or web address].[place].gov/. It is important to note that some COVID mobile vaccine clinics are held outdoors and may be canceled in rainy or stormy conditions. To learn more about pediatric vaccinations (ages 5-11), we invite you to visit the [facility] webpage. [email or web address].[email or web address].org/pages/[email or web address]-Ifqgydfczli-Ystyrwjyhh-[email or web address]-[email or web address] stions.htmlTo learn more about the COVID-19 vaccine, we invite you to visit the CDC website for a list of frequently asked questions. https://www.cdc.gov/coronavirus/2019-ncov/vaccines/faq.html [facility] Patient Portal Access Instructions: Stay connected with your healthcare team and access your personal medical information anytime with the [facility] Patient Portal. If you would like a full copy of your medical records please contact the [facility] Medical Records Department Tuesday through Tuesday between 8a.m. and 4:30p.m. Please follow the directions below to access the portal: 1.Access the email account you provided upon registration to the [facility].2.Look for an invitation email from [facility].3.Open the email and access the invitation link: Accept Invitation to [facility]4.Fill in the required rodriges to create your account. Sign into [email or web address] with your username and password that you created in the above steps to stay up to date. You can then view a summary of results, a summary of your visits, and the ability to download your summaries to your computer or send the information securely to a physician. Remember that your healthcare information is confidential, so carefully consider who you will allow to register on the [facility] Patient Portal for access to your information. You can also access the [facility] Patient Portal on the [employer] trudy. Simply click on Health Records under [place] and then click on the [employer] logo. HOW TO SAFELY DISPOSE OF PRESCRIPTION MEDICATIONS Please use one of the following methods to safely dispose of your unused medications. 1.Use a drug disposal kit: the drug disposal pouch allows you to safely discard your old and unuseddrugs. Ask your nurse to give you one when you are discharged.2.Visit a local take-back location: Many local pharmacies and police departments have programs that collect old and unwanted prescriptiondrugs. Call your local pharmacy or go to http://bit.[employer]7A8Hq2j to find one close to you.3.Make use of household items: Use cat litter or old coffee grounds to dispose medications if other options arenot available. Mix your drugs with these household products, seal them in an airtight container andthrow it into the garbage. Call [facility]: [phone] to be sure your drugs can be disposed of in this way. Some medicines may require a different approach.4.Never flush your medications down the toilet. IF YOU HAVE BEEN PRESCRIBED AN OPIOIDS FOR PAIN If you have been prescribed an opioid (such as hydrocodone, oxycodone or morphine), it is critical to understand the possible side effects and risks of opioid pain medications. Even when taken as directed, opioids can have several side effects including: Tolerance, meaning you might need to take more of a medication for the same pain relief. Nausea, vomiting and/or constipation. Sleepiness, dizziness, dry mouth, confusion, depression or itching. Physical dependence, meaning you have withdrawal symptoms when a medication is stopped ? this can develop within a few days. KNOW YOUR RESPONSIBILITIES It is important to know exactly how much and how often to take the opioid pain medications you are prescribed. Never take opioids in higher amounts or more often than prescribed. Do not combine opioids with alcohol or other drugs that cause drowsiness, such as benzodiazepines, also known as benzos,including diazepam and alprazolam, muscle relaxants or sleep aids. Never sell or share prescriptionopioids. This is illegal. Store opioids in a secure place and out of reach of others (including children, family, friends and visitors). The last page(s) of this document has been signed and retained as a CHART COPY Signatures Patient Education Materials COPD Flare Medication Leaflets My discharge plan and instructions have been reviewed and explained to me and IJENNIFER PAMELA A understand my current condition and have read and understand these discharge instructions. I have received a written copy of the plan/instructions. If I have questions, I am aware that I should contact my doctor. Patient/Vault Person Signature: Date/Time: Relationship to Patient: Witness Name/Signature: Date/Time: [facility]03-07-2024 Note ORIGINAL EXAMINATION: ONE XRAY VIEW OF THE CHEST 06/23/2023 5:02 pm COMPARISON: Chest x-ray 11/01/2022, PET CT 05/18/2023 HISTORY: ORDERING SYSTEM PROVIDED HISTORY: Reason for Exam: dyspnea FINDINGS: The cardiomediastinal silhouette is stable. Chronic unchanged blunted left costophrenic angle and left basilar opacity most likely corresponds to areas of scarring described on the comparison PET-CT. The right lung is clear. No vascular congestion or pneumothorax. No acute osseous abnormality. IMPRESSION: Chronic unchanged blunting of the left costophrenic angle and left basilar opacity. No edema or new consolidation. Preliminary Report was Dictated by a Resident Interpreted by: Dora Romero Preliminary Report By: Corine Haque Electronically signed By Dora Romero Dictated Date: 06/23/2023 5:09:25 PM Prelim Date: 06/23/2023 5:14:23 PM Sign Date: 06/23/2023 7:23:32 PM [facility] NoteSinus rhythm Left bundle branch block Compared to ECG at 11/01/2022 15:28:09 BORDERLINE ECG Electronic Signature: LAURA RARIAZA DO 06/23/2023 16:43:23[facility] 01-31-2024 Note ORIGINAL EXAMINATION: PET/CT CU64 DETECTNET SB-05/18/2023 10:55 am TECHNIQUE: Intravenous injection of 4.4 mCi IV Copper-64 Dotatate was performed, followed by acquisition of positron emission tomographic images from the skull base to mid thigh, with concurrent low-dose CT for attenuation correction and anatomic localization utilizing a combined PET/CT scanner. PET images were fused with low-dose CT at the workstation. 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 No somatostatin-expressing cervical lymph nodes. Similar appearing enlarged right lobe of the thyroid extends into the upper mediastinum. CHEST: No somatostatin-expressing parenchymal pulmonary nodule. Several right-sided pulmonary nodules up to 5 mm (image 168, 169, 187, 207; series 3). There is also an 8 mm right lower lobe pulmonary nodule (image 198, series 3). Surgical changes of the left lung, with a least partial left upper lobectomy. Several left lower lobe pulmonary nodules up to 5 mm (image 187, 198, and 199; series 3). These nodules demonstrate no to minimal uptake. Scattered areas of scarring most on the left associated with some volume loss and surgical changes. Trace left pleural effusion. No somatostatin-expressing mediastinal, hilar, or axillary lymphadenopathy. ABDOMEN/PELVIS: No somatostatin-expressing solid organ lesion. No somatostatin-expressing abdominal or pelvic lymphadenopathy Physiologic excretion of radiotracer is present within the kidneys, ureters, urinary bladder, as well as the liver, spleen, and bowel. Small hiatal hernia. Atrophic or surgically absent/partially surgically absent uterus. MUSCULOSKELETAL: No somatostatin-expressing or suspicious osseous lesion to suggest osseous metastatic disease. IMPRESSION: No evidence of somatostatin expressing active disease. Bilateral pulmonary nodules as above. Suggest correlation with any prior outside hospital imaging for stability. I have personally reviewed the images of this examination and agree with the resident's findings and interpretation. Interpreted by: Andreas Lee DO Preliminary Report By: Daniel Charles Electronically signed By Andreas Lee DO Dictated Date: 05/18/2023 1:40:19 PM Prelim Date: 05/18/2023 3:32:17 PM Sign Date: 05/18/2023 3:32:17 PM Ordering Provider: [facility]07-20-2023 Hospital Discharge instructions Patient Education 11/04/2022 15:31:04 Hyperglycemia, Ybiw-mu-King Hyperglycemia Hyperglycemia is when the sugar (glucose) level in your blood is too high. It may not cause symptoms. If you do have symptoms, they may include warning signs, such as: Feeling more thirsty than normal. Hunger. Feeling tired. Needing to pee (urinate) more than normal. Blurry eyesight (vision). You may get other symptoms as it gets worse, such as: Dry mouth. Not being hungry (loss of appetite). Fruity-smelling breath. Weakness. Weight gain or loss that is not planned. Weight loss may be fast. A tingling or numb feeling in your hands or feet. Headache. Skin that does not bounce back quickly when it is lightly pinched and released (poor skin turgor). Pain in your belly (abdomen). Cuts or bruises that heal slowly. High blood sugar can happen to people who do or do not have diabetes. High blood sugar can happen slowly or quickly, and it can be an emergency. Follow these instructions at home: General instructions Take aigk-abn-wehisms and prescription medicines only as told by your doctor. Do not use products that contain nicotine or tobacco, such as cigarettes and e- cigarettes. If you need help quitting, ask your doctor. Limit alcohol intake to no more than 1 drink per day for non women and 2 drinks per day formen. One drink equals 12 oz of beer, 5 oz of wine, or 1 oz of hard liquor. Manage stress. If you need help with this, ask your doctor. Keep all follow-up visits as told by your doctor. This is important. Eating and drinking Stay at a healthy weight. Exercise regularly, as told by your doctor. Drink enough fluid, especially when you: ?Exercise. ?Get sick. ?Are in hot temperatures. Eat healthy foods, such as: ?Low-fat (lean) proteins. ?Complex carbs (complex carbohydrates), such as whole wheat bread or brown rice. ?Fresh fruits and vegetables. ?Low-fat dairy products. ?Healthy fats. Drink enough fluid to keep your pee (urine) clear or pale yellow. If you have diabetes: Make sure you know the symptoms of hyperglycemia. Follow your diabetes management plan, as told by your doctor. Make sure you: ?Take insulin and medicines as told. ?Follow your exercise plan. ?Follow your meal plan. Eat on time. Do not skip meals. ?Check your blood sugar as often as told. Make sure to check before and after exercise. If you exercise longer or in a different way than you normally do, check your blood sugar more often. ?Follow your sick day plan whenever you cannot eat or drink normally. Make this plan ahead of time with your doctor. Share your diabetes management plan with people in your workplace, school, and household. Check your urine for ketones when you are ill and as told by your doctor. Carry a card or wear jewelry that says that you have diabetes. Contact a doctor if: Your blood sugar level is higher than 240 mg/dL (13.3 mmol/L) for 2 days in a row. You have problems keeping your blood sugar in your target range. High blood sugar happens often for you. Get help right away if: You have trouble breathing. You have a change in how you think, feel, or act (mental status). You feel sick to your stomach (nauseous), and that feeling does not go away. You cannot stop throwing up (vomiting). These symptoms may be an emergency. Do not wait to see if the symptoms will go away. Get medical help right away. Call your local emergency services (911 in the [place] Do not drive yourself to the hospital. Summary Hyperglycemia is when the sugar (glucose) level in your blood is too high. High blood sugar can happen to people who do or do not have diabetes. Make sure you drink enough fluids, eat healthy foods, and exercise regularly. Contact your doctor if you have problems keeping your blood sugar in your target range. This information is not intended to replace advice given to you by your health care provider. Make sure you discuss any questions you have with your health care provider. Document Released: 01/30/2010 Document Revised: 12/20/2016 Document Reviewed: 12/20/2016 [employer] Patient Education 2020 [employer]. Follow Up Care 11/01/2022 14:53:31 With:AGNES HERNANDEZ DO Address: [address] [place] [id number] When:2-4 days [facility] 07-20-2023 Note Discharge Instructions Thank you for allowing [facility] to assist you with your healthcare needs. The following is importantdischarge information regarding your hospital visit. Your Care Team AGNES HERNANDEZ DO Your Diagnosis Shortness of breath Hyponatremia Diabetes mellitus type 2 Bipolar disorder Hypertension MARGARETTE (obstructive sleep apnea) GERD (gastroesophageal reflux disease) What to do next Scheduled Follow-Up Appointments Appointment Type When With Where Contact Salvador POLANCO 02/03/2023 02:15 PM EDT JENNI MARCUS MD [facility] [place] Follow Up Appointments Follow Up with AGNES HERNANDEZ DO When Within 2-4 days Where: [address] [place] [address] [place] [address]- The Following Activity and Diet Have Been Ordered for You Discharge Activity - Ordered -- Resume your pre-hospitalization activity, 11/04/22 14:42:00 EDT Discharge Diet - Ordered -- No changes were made to your diet during your hospital stay. Please resume your pre hospitalization diet on discharge., 11/04/22 14:42:00 EDT The Following Treatments Have Been Ordered for You Discharge Labs No qualifying data available. Discharge Radiology No qualifying data available. Other Therapies No qualifying data available. Post Acute Orders No qualifying data available. Someone Will Contact You Regarding These Home Health Referrals Consult Home Health - OT (Home Health OT Consult) - Ordered -- 11/04/22 10:41:00 EDT, Home Therapy Order: OT Eval & Treat, Home Therapy Instruction: Full weight bearing, Reason: ADL assistance Consult Home Health - PT (Home Health PT Consult) - Ordered -- 11/04/22 10:41:00 EDT, Home Therapy Order: PT Eval & Treat, Reason: General Debility, Home Therapy Instruction: Full weight bearing Allergies Bee Stings (Difficulty breathing) morphine (Anaphylaxis) Eggs (Nausea and vomiting) Brintellix HYDROcodone aspirin calcium carbonate (Unknown) codeine (Amnesia, Altered mental status) flu vaccines (Unknown) gabapentin (Abnormal muscle function) influenza virus vaccine, inactivated penicillin propoxyphene Medications Please ask your primary doctor or pharmacist before taking any other medication not listed, including over the counter drugs, herbal medications, vitamins and or supplements as they may interact withyour home medications. What How Much When Instructions Last Dose New magnesium oxide (magnesium oxide 400 mg oral tablet) 1 tab(s) by mouth Once a day Changed insulin lispro (HumaLOG) (HumaLOG 100 units/ mL subcutaneous solution) 24 unit(s) Subcutaneous Three (3) times a day before meals Unchanged albuterol (albuterol MDI (90 mcg/ inh) CFC free inhalation aerosol) 2 puff(s) by inhalation Every 4 hours as needed for as needed for wheezing Unchanged albuterol-ipratropium (DuoNeb) 3 Milliliter by inhalation Every 2 Hours as needed for Shortness of breath (SOB) Unchanged atenolol (atenolol 50 mg oral tablet) 1 tab(s) by mouth Once a day (in the morning) Unchanged atorvastatin (atorvastatin 40 mg oral tablet) 1 tab(s) by mouth Daily at bedtime Unchanged calcium-vitamin D (calcium-vitamin D 600 mg-5 mcg (200 intl units) oral capsule) 1 cap by mouth With lunch Unchanged colchicine (colchicine 0.6 mg oral capsule) 1 cap by mouth Once a day as needed for Gout pain Unchanged colestipol (Colestid 1 g oral tablet) 2 tab(s) by mouth Two (2) times a day Unchanged desvenlafaxine (desvenlafaxine (as succinate) 50 mg oral tablet, extended release) 1 tab(s) by mouth Once a day Unchanged doxepin (doxepin 100 mg oral capsule) 1 cap by mouth Daily at bedtime Unchanged furosemide (furosemide 20 mg oral tablet) 1 tab(s) by mouth Two (2) times a day Resume on Unchanged insulin glargine (Lantus 100 units/ mL10 ml vial solution) 70 unit(s) Subcutaneous Two (2) times a day Unchanged multivitamin with minerals (Therems M oral tablet) 1 tab(s) by mouth With lunch Unchanged omega-3 polyunsaturated fatty acids (Fish Oil 1000 mg oral capsule) 2 cap by mouth Two (2) times a day Unchanged omeprazole (omeprazole 40 mg oral delayed release capsule) 1 cap by mouth Once a day (in the morning) Unchanged oxybutynin (oxybutynin 10 mg/ 24 hr oral tablet, extended release) 1 tab(s) by mouth Once a day Unchanged pregabalin 50 Milligram by mouth Three (3) times a day Unchanged SITagliptin (Januvia 50 mg oral tablet) 1 tab(s) by mouth Once a day What How Much When Comments Stop Taking insulin isophane (NPH) - insulin regular (HumuLIN 70/ 30) See instructions 66 units bid 30mins before breakfast and dinner Subcutaneous Stop Taking loratadine 10 Milligram by mouth Once a day Please take this list to your next doctor s visit. Bring all medications you take, including over the counter medications, herbals and other supplements with you to your doctor s visit. Patients and families are reminded to discard old lists and to update any records with all medication providers or retail pharmacies. Medication Leaflets magnesium oxide (mag NEE see OCK side) MagGel, Mistry' Cramp-free, Uro-Mag What is the most important information I should know about magnesium oxide? Before you take magnesium oxide, tell your doctor about all your medical conditions or allergies, and all the medicines you are using. Also make sure your doctor knows if you are or breast-feeding. In some cases, you may not be able to take magnesium oxide, or you may need a dose adjustment or special precautions. What is magnesium oxide? Magnesium is a naturally occurring mineral. Magnesium is important for many systems in the body especially the muscles and nerves. Magnesium oxide is used as a supplement to maintain adequate magnesium in the body. Magnesium oxide is also used as an antacid to treat indigestion, or as a laxative to relieve occasional constipation. Magnesium oxide may also be used for purposes not listed in this medication guide. What should I discuss with my healthcare provider before taking magnesium oxide? You should not use magnesium oxide if you are allergic to it. Ask a doctor or pharmacist if it is safe for you to use this medicine if you have other medical conditions, especially: kidney disease; heart disease; nausea, vomiting; a blockage in your intestines; low levels of calcium in your blood; or a sudden change in bowel habits for 2 weeks or longer. It is not known whether magnesium oxide will harm an unborn baby. Ask a doctor before using this medicine if you are . It is not known whether magnesium oxide passes into breast milk or if it could affect a nursing baby. Ask a doctor before using this medicine if you are breast-feeding. Do not give this medicine to a child without medical advice. Magnesium oxide should not be given to a child younger than 6 years old. How should I take magnesium oxide? Use exactly as directed on the label, or as prescribed by your doctor. Do not use in larger or smaller amounts or for longer than recommended. Take this medicine with a full glass of water. When using this medicine as a laxative, it may be best to take your dose at bedtime. Magnesium oxide may be taken with food if it upsets your stomach. Call your doctor if your symptoms do not improve after 7 days of treatment, or if symptoms get worse. Store at room temperature away from moisture and heat. What happens if I miss a dose? Since magnesium oxide is sometimes used when needed, you may not be on a dosing schedule. If you are on a schedule, take the missed dose as soon as you remember. Skip the missed dose if it is almost time for your next scheduled dose. Do not take extra medicine to make up the missed dose. What happens if I overdose? Seek emergency medical attention or call the Poison Help line at . Overdose symptoms may include nausea, vomiting, weakness, breathing problems, slow reflexes, weak pulse, extreme drowsiness, and feeling dizzy or light-headed. What should I avoid while taking magnesium oxide? Magnesium oxide can make it harder for your body to absorb other medicines you take by mouth. Avoidtaking other medicines within 2 hours before or 2 hours after you take magnesium oxide. You may need to wait 4 hours to take your other medicines after taking magnesium oxide. Ask your doctor how to best schedule your medications. What are the possible side effects of magnesium oxide? Get emergency medical help if you have signs of an allergic reaction: hives; difficult breathing; swelling of your face, lips, tongue, or throat. Stop using magnesium oxide and call your doctor at once if you have: rectal bleeding; coughing up blood or vomit that looks like coffee grounds; bloody or tarry stools; or no bowel movement after using magnesium oxide as a laxative. Common side effects may include: diarrhea; or upset stomach. This is not a complete list of side effects and others may occur. Call your doctor for medical advice about side effects. You may report side effects to FDA at 8-540-KRI-4484. What other drugs will affect magnesium oxide? Ask a doctor or pharmacist if it is safe for you to take magnesium oxide if you are also using any of the following drugs: an antibiotic; a diuretic or 'water pill'; penicillamine; a blood thinner--warfarin, Coumadin, Jantoven; or medicine to treat osteoporosis or Paget's disease--alendronate, ibandronate, risedronate, Fosamax, Boniva, Actonel, and others. This list is not complete. Other drugs may interact with magnesium oxide, including prescription and iqaz-kze-odbebod medicines, vitamins, and herbal products. Not all possible interactions are listed in this medication guide. Where can I get more information? Your pharmacist can provide more information about magnesium oxide. Remember, keep this and all other medicines out of the reach of children, never share your medicines with others, and use this medication only for the indication prescribed. Every effort has been made to ensure that the information provided by [employer]. ('[employer]') is accurate, up-to-date, and complete, but no guarantee is made to that effect. Drug information contained herein may be time sensitive. [employer] information has been compiled for use by healthcare practitioners and consumers in the [place] and therefore [employer] does not warrant that uses outside of the [place] are appropriate, unless specifically indicated otherwise. [employer] drug information does not endorse drugs, diagnose patients or recommend therapy. [employer] drug information isan informational resource designed to assist licensed healthcare practitioners in caring for their p atients and/or to serve consumers viewing this service as a supplement to, and not a substitute for, the expertise, skill, knowledge and judgment of healthcare practitioners. The absence of a warningfor a given drug or drug combination in no way should be construed to indicate that the drug or drug combination is safe, effective or appropriate for any given patient. [employer] does not assume any responsibility for any aspect of healthcare administered with the aid of information [employer] provides. The information contained herein is not intended to cover all possible uses, directions, precautions, warnings, drug interactions, allergic reactions, or adverse effects. If you have questions about the drugs you are taking, check with your doctor, nurse or pharmacist. Copyright 8998-7393 [employer]. Version: 4.01. Revision Date: 08/13/2016. Education Materials Hyperglycemia Hyperglycemia is when the sugar (glucose) level in your blood is too high. It may not cause symptoms. If you do have symptoms, they may include warning signs, such as: Feeling more thirsty than normal. Hunger. Feeling tired. Needing to pee (urinate) more than normal. Blurry eyesight (vision). You may get other symptoms as it gets worse, such as: Dry mouth. Not being hungry (loss of appetite). Fruity-smelling breath. Weakness. Weight gain or loss that is not planned. Weight loss may be fast. A tingling or numb feeling in your hands or feet. Headache. Skin that does not bounce back quickly when it is lightly pinched and released (poor skin turgor). Pain in your belly (abdomen). Cuts or bruises that heal slowly. High blood sugar can happen to people who do or do not have diabetes. High blood sugar can happen slowly or quickly, and it can be an emergency. Follow these instructions at home: General instructions Take dzih-rkd-nbdgrcv and prescription medicines only as told by your doctor. Do not use products that contain nicotine or tobacco, such as cigarettes and e- cigarettes. If you need help quitting, ask your doctor. Limit alcohol intake to no more than 1 drink per day for non women and 2 drinks per day formen. One drink equals 12 oz of beer, 5 oz of wine, or 1 oz of hard liquor. Manage stress. If you need help with this, ask your doctor. Keep all follow-up visits as told by your doctor. This is important. Eating and drinking Stay at a healthy weight. Exercise regularly, as told by your doctor. Drink enough fluid, especially when you: ? Exercise. ? Get sick. ? Are in hot temperatures. Eat healthy foods, such as: ? Low-fat (lean) proteins. ? Complex carbs (complex carbohydrates), such as whole wheat bread or brown rice. ? Fresh fruits and vegetables. ? Low-fat dairy products. ? Healthy fats. Drink enough fluid to keep your pee (urine) clear or pale yellow. If you have diabetes: Make sure you know the symptoms of hyperglycemia. Follow your diabetes management plan, as told by your doctor. Make sure you: ? Take insulin and medicines as told. ? Follow your exercise plan. ? Follow your meal plan. Eat on time. Do not skip meals. ? Check your blood sugar as often as told. Make sure to check before and after exercise. If you exercise longer or in a different way than you normally do, check your blood sugar more often. ? Follow your sick day plan whenever you cannot eat or drink normally. Make this plan ahead of time with your doctor. Share your diabetes management plan with people in your workplace, school, and household. Check your urine for ketones when you are ill and as told by your doctor. Carry a card or wear jewelry that says that you have diabetes. Contact a doctor if: Your blood sugar level is higher than 240 mg/dL (13.3 mmol/L) for 2 days in a row. You have problems keeping your blood sugar in your target range. High blood sugar happens often for you. Get help right away if: You have trouble breathing. You have a change in how you think, feel, or act (mental status). You feel sick to your stomach (nauseous), and that feeling does not go away. You cannot stop throwing up (vomiting). These symptoms may be an emergency. Do not wait to see if the symptoms will go away. Get medical help right away. Call your local emergency services (911 in the [place] Do not drive yourself to the hospital. Summary Hyperglycemia is when the sugar (glucose) level in your blood is too high. High blood sugar can happen to people who do or do not have diabetes. Make sure you drink enough fluids, eat healthy foods, and exercise regularly. Contact your doctor if you have problems keeping your blood sugar in your target range. This information is not intended to replace advice given to you by your health care provider. Make sure you discuss any questions you have with your health care provider. Document Released: 01/30/2010 Document Revised: 12/20/2016 Document Reviewed: 12/20/2016 [employer] Patient Education 2020 [employer] Inc. Additional Information VACCINATE! IT SAVES LIVES! Members of the community who have not yet received the COVID-19 vaccine and would like to receive it can visit one of [facility] vaccine clinics. There are many vaccine clinic locations within the [facility]. For locations and available times, please visit https://[email or web address].[place].gov/. It is important to note that some COVID mobile vaccine clinics are held outdoors and may be canceled in rainy or stormy conditions. To learn more about pediatric vaccinations (ages 5-11), we invite you to visit the [facility] webpage. [email or web address]/[email or web address] [email or web address] learn more about the COVID-19 vaccine, we invite you to visit the CDC website for a list of frequently asked questions.https://www.cdc.gov/coronavirus/2019-ncov/vaccines/faq.html [facility] Patient Portal Access Instructions: Stay connected with your healthcare team and access your personal medical information anytime with the [facility] Patient Portal. Please follow the directions below to create your [facility] account: 1.Access the email account you provided upon registration to the hospital/physician office.2.Look for an invitation email from [facility].3.Open the email and access the invitation link: AcceptInvitation to [facility].4.Fill in the required rodriges to create your account. To access your account, visit [email or web address]. Click the blue button labeled Access Patient Portal and then log in with the username and password that you created in the steps above. You will be able to view your test results, lab results, a summary of your visits, upcoming appointments and more. There is also a convenient messaging option where you can send secure messages to your p Net[employer]ider. In addition, you will have the ability to download any documents or summaries to your computer and/or send the information securely to a physician. Remember that your healthcare information is confidential, so carefully consider who you will allowto register on the [facility] Patient Portal for access to your information. You can also access the [facility] Patient Portal on the [facility] trudy. Simply click on Patient Portal and then log into your account. If you would like to receive a full copy of your medical records, please contact the [facility] Medical Records Department by calling [phone], Tuesday through Tuesday between 8 a.m. and 4:30 p.m. HOW TO SAFELY DISPOSE OF PRESCRIPTION MEDICATIONS Please use one of the following methods to safely dispose of your unused medications. 1.Use a drug disposal kit: the drug disposal pouch allows you to safely discard your old and unuseddrugs. Ask your nurse to give you one when you are discharged.2.Visit a local take-back location: Many local pharmacies and police departments have programs that collect old and unwanted prescriptiondrugs. Call your local pharmacy or go to http://[employer]5S6Ao8w to find one close to you.3.Make use of household items: Use cat litter or old coffee grounds to dispose medications if other options arenot available. Mix your drugs with these household products, seal them in an airtight container andthrow it into the garbage. Call [facility]: [phone] to be sure your drugs can be disposed of in this way. Some medicines may require a different approach.4.Never flush your medications down the toilet. IF YOU HAVE BEEN PRESCRIBED AN OPIOID FOR PAIN If you have been prescribed an opioid (such as hydrocodone, oxycodone or morphine), it is critical to understand the possible side effects and risks of opioid pain medications. Even when taken as directed, opioids can have several side effects including: Tolerance, meaning you might need to take more of a medication for the same pain relief. Nausea, vomiting and/or constipation. Sleepiness, dizziness, dry mouth, confusion, depression or itching. Physical dependence, meaning you have withdrawal symptoms when a medication is stopped, can develop within a few days. KNOW YOUR RESPONSIBILITIES It is important to know exactly how much and how often to take the opioid pain medications you are prescribed. Never take opioids in higher amounts or more often than prescribed. Do not combine opioids with alcohol or other drugs that cause drowsiness, such as benzodiazepines, also known as benzos, including diazepam and alprazolam, muscle relaxants or sleep aids. Never sell or share prescription opioids. This is illegal. Store opioids in a secure place and out of reach of others (including children, family, friends and visitors). The last page of this document has been signed and retained as a CHART COPY. Signatures Patient Education Materials Hyperglycemia, Wfds-ao-Lvkj Medication Leaflets magnesium oxide My discharge plan and instructions have been reviewed and explained to me and IJENNIFER PAMELA A understand my current condition and have read and understand these discharge instructions. I have received a written copy of the plan/instructions. If I have questions, I am aware that I should contact my doctor. Patient/Vault Person Signature: Date/Time: Relationship to Patient: Witness Name/Signature: Date/Time: [facility]07-19-2023 Note Date of Service 11/03/2022 Chief Complaint Short of breath Subjective Patient seen and evaluated this morning while sitting in recliner. She states that she is breathingmuch better today and actually got some sleep last night. She had reported yesterday that she has had to make numerous trips to the bathroom at home overnight and this has prevented her from resting.Explained again that that goes along with uncontrolled blood sugars. Once those are better controlled she should not have to get up that often to void during the night. Pharmacy had suggested yesterday that we have patient demonstrate injecting herself with her Lantus pen. Per nursing, she did everything correctly. Patient asked this morning if she changes the needle on her Lantus pen every time she injects it. She states no, I forget quite a bit. Explained to patient that the pen caps are a one use needle. Once she has used it, the cap locks and cannot be used again. She most likely has not been getting insulin. Patient reports that she finally made an appointment with endocrinology. Sheis seeing Dr. Marcus here at [facility]. Per pharmacy, patient could get a one-time teaching [facility]. Pharmacy, nursing and electronics specialist have been giving patient information but she does not seem to remember anything for very long. Patient advised that she needssome type of reminder to change the pen cap every use. Patient denies any new problems or concerns today. She is on room air with acceptable oxygen saturations. She denies any fever, chills, cough, shortness of breath, chest pain, abdominal pain, nausea or dysuria. All questions answered. Objective Vitals and Measurements T: 36.4 C (Oral) TMIN: 36.4 C (Oral) TMAX: 36.8 C (Oral) HR: 68(Apical) RR: 18 BP: 135/64 SpO2: 92%WT: 139.6 kg Intake and Output 7AM Yesterday to 7AM Today Intake and Output (Last 24 hours) Intake Oral Intake 120.00 Output Stool Count 0.00 Urine Count 3.00 Total Summary Total Intake 120.00 Total Output 0.00 Fluid Balance 120.00 Physical Exam General: No acute distress. Patient is alert and appropriate. Skin: No rash. Skin is warm, dry and intact. HEENT: Head is normocephalic, atraumatic. Pupils are equal, round and reactive. Neck: Supple. No lymphadenopathy, thyromegaly. Lungs: Bilaterally clear but diminished without crepitation or wheeze. Unlabored. Heart: Heart is regular rhythm, S1, S2. No murmurs, gallops or rubs. Abdomen: Abdomen is soft, nontender, obese. Bowels sounds present in all quadrants. Extremities: No clubbing, cyanosis; 1+ edema noted in bilateral lower extremities. Peripheral pulses palpable. No calf tenderness. Neurological: Patient is awake and alert to person, place and time. Following simple commands, moving all extremities. Weight Current Weight Dosing Weight: 138.5 kg (11/02/22) Current Weight: 139.6 kg (11/03/22) Dosing Weight: 138.4 kg (11/01/22) Medications Medications (22) Active Scheduled: (14) alogliptin 6.25 mg tablet 12.5 mg 2 tab(s), Oral, qDay atenolol 50 mg tablet 50 mg 1 tab(s), Oral, qAM atorvastatin 40 mg tablet 40 mg 1 tab(s), Oral, qHS cefTRIAXone 1 g, IV Piggyback, qDay colestipol 1 gm tablet 2 gram(s) 2 tab(s), Oral, BID desvenlafaxine 50 mg ER tablet 50 mg 1 tab(s), Oral, qDay doxepin 25 mg Capsule 100 mg 4 cap(s), Oral, qHS doxycycline 100 mg 10 mL, IV Piggyback, q12h heparin 5,000 units/mL (1 mL) vial 5,000 unit(s) 1 mL, Subcutaneous, q12h insulin glargine 100 units/ml solution 70 unit(s) 0.7 mL, Subcutaneous, BID insulin lispro 100 units/mL Soln (3 mL) Give 0-15 units/dose, Subcutaneous, achs insulin lispro 100 units/mL Soln (3 mL) 26 unit(s) 0.26 mL, Subcutaneous, TIDAC pantoprazole 20 mg EC tablet 40 mg 2 tab(s), Oral, qDayAC pregabalin 50 mg capsule 50 mg 1 cap(s), Oral, TID Continuous: (0) PRN: (8) acetaminophen 325 mg Tablet 650 mg 2 tab(s), Oral, q4h acetaminophen 325 mg Tablet 650 mg 2 tab(s), Oral, q4h albuterol - ipratropium 2.5 mg-0.5 mg/3 mL Inhal Elba UD 3 mL, Inhalation, q2hRT benzonatate 100 mg Capsule 100 mg 1 cap(s), Oral, TID colchicine 0.6 mg Tablet 0.6 mg 1 tab(s), Oral, qDay guaifenesin 100 mg/5 mL 120 mL liquid 200 mg 10 mL, Oral, q4h melatonin 3 mg tablet 6 mg 2 tab(s), Oral, qHS ondansetron 2 mg/ 1 mL 2 mL INJ 4 mg 2 mL, IV Push, q4h Lab Results 11/03 05:43 WBC: 5.6 Hgb: 11.1 L Hct: 32.9 L Platelet: 134 Neutrophil %: 57.8 Glucose Level: 237 H Sodium Level: 135 L Potassium Level: 4.5 BUN: 41 H Creatinine Lvl (s): 1.16 H 11/02 05:37 WBC: 7.5 Hgb: 11.6 L Hct: 34.5 L Platelet: 173 Neutrophil %: 47.3 Glucose Level: 277 H Sodium Level: 130 L Potassium Level: 4.3 BUN: 55 H Creatinine Lvl (s): 1.64 H Imaging Results and Diagnostics XR Chest 1 View Result Date: November 01, 2022 Verified By: ANDREAS LEE DO CLINICAL STATEMENT: IMPRESSION: Suboptimal exam given patient body habitus and rotation. Increased opacity over the left lung base in the retrocardiac area may represent summation artifact. However, underlying airspace disease is difficult to exclude. Diffuse interstitial prominence, which could be artifactually increased due to low lung volumes and patient body habitus although correlate for any symptoms of interstitial edema or bronchitis. I have personally reviewed the images of this examination and agree with the resident's findings and interpretation. EKG No qualifying data available. Assessment/Plan 1. Shortness of breath Acute on chronic, patient reports being more short of breath over the last month, denies any fever or chills *Patient was on oxygen on arrival but has been weaned down to room air with acceptable oxygen saturations. *Patient did get Ceftriaxone IV and doxycycline IV in the ED. We will continue those antibiotics until atypicals come back. She has no leukocytosis and has been afebrile so unlikely that this is pneumonia. *Legionella negative. *Mycoplasma antibody negative. *Continue supplemental oxygen as needed to maintain oxygen saturations above 92%. Wean oxygen as able. *Continue duoneb aerosols as needed and scheduled for shortness of breath/wheezing. 2. Hyponatremia Acute, new onset, likely secondary to polydipsia and polyuria from high blood glucose levels, sodium 123 in ED and improved to 135 this am *Discontinue IV fluids. *Urine sodium 28 and urine osmolality 399. *Serum osmolality 318. *Repeat BMP in the am. 3. Diabetes mellitus type 2 Chronic, uncontrolled *Blood sugar checks before meals and at bedtime. *Cover with high-dose sliding scale insulin. *Continue 26 units of Novolog TIDAC. *Continue Lantus at home dose - patient to use own pen and demonstrate how she has been using the pen at home. She needs reminded to change cap with every injection. *HgbA1c greater than 14 (was 9.8 in early September 2022). *Continue diabetic diet. *Pharmacist, electronics specialist and nursing providing diabetic teaching. 4. Bipolar disorder Chronic *Continue current home medications. 5. Hypertension Chronic *Continue current home antihypertensives. *SBP goal of 140 or less. 6. MARGARETTE (obstructive sleep apnea) Chronic *May use CPAP at night. 7. GERD (gastroesophageal reflux disease) Chronic *Continue current home medications. DVT prophylaxis with heparin sc. Code status: Full Code. Labs, diagnostic test and progress notes reviewed as noted in HPI. Plan of care discussed with patient. All questions answered. Patient verbalizes understanding and is agreeable with plan of care. This case was discussed with collaborating physician, Dr. Sarthak Webster. Time Spent 50 minutes spent reviewing past diagnostic tests, reviewing lab results, vital sign trends, medicalhistory, reviewing medications and ordering home medications, greater than 30 minutes spent in teaching patient about diabetes and self-care, examining patient, collaborating with physician, and documenting in chart. Digitally Signed by AGNES DUNCAN on 11/03/2022 03:13 PM [facility]07-18-2023 Evaluation + Plan noteExtracted from: Title:History and Physical Author:DAKOTA AGNES M SENIOR MATERIALS ANALYST-SONOGRAPHY TECHNOLOGIST Date:11/02/22 1. Shortness of breath Acute on chronic, patient reports being more short of breath over the last month, denies any fever or chills *Patient was on oxygen on arrival but has been weaned down to room air with acceptable oxygen saturations. *Patient did get Ceftriaxone IV and doxycycline IV in the ED. We will continue those antibiotics until atypicals come back. She has no leukocytosis and has been afebrile so unlikely that this is pneumonia. *Check urine for legionella. *Check mycoplasma antibody. *Continue supplemental oxygen as needed to maintain oxygen saturations above 92%. Wean oxygen as able. *Start duoneb aerosols as needed and scheduled for shortness of breath/wheezing. 2. Hyponatremia Acute, new onset, likely secondary to polydipsia and polyuria from high blood glucose levels, sodium 123 in ED and improved to 130 this am *Continue NS @ 100cc/hr x 24 hours. *Check urine sodium and urine osmolality. *Serum osmolality 318. *Repeat BMP in the am. 3. Diabetes mellitus type 2 Chronic, uncontrolled *Blood sugar checks before meals and at bedtime. *Cover with high-dose sliding scale insulin. *Continue 26 units of Novolog TIDAC. *Continue Lantus at home dose - patient to use own pen and demonstrate how she has been using the pen at home. *Check HgbA1c in the am. *Continue diabetic diet. *Pharmacist, electronics specialist and nursing providing diabetic teaching. 4. Bipolar disorder Chronic *Continue current home medications. 5. Hypertension Chronic *Continue current home antihypertensives. *SBP goal of 140 or less. 6. MARGARETTE (obstructive sleep apnea) Chronic *May use CPAP at night. 7. GERD (gastroesophageal reflux disease) Chronic *Continue current home medications. DVT prophylaxis with heparin sc. Code status: Full Code. Labs, diagnostic test and progress notes reviewed as noted in HPI. Plan of care discussed with patient. All questions answered. Patient verbalizes understanding and is agreeable with plan of care. This case was discussed with collaborating physician, Dr. Sarthak Webster. 75 minutes spent reviewing past diagnostic tests, reviewing lab results, vital sign trends, medical history, reviewing medications and ordering home medications, discussing case with pharmacy, electronics specialist, nursing, therapy and social work therapist, examining patient, collaborating with physician, and documenting in chart. Future Appointments Appointment Date:02/03/2023 02:15:00 PM Scheduled Provider:JENNI MARCUS MD Location:[facility] Appointment Type:[facility] 07-18-2023 Note Date of Service 11/02/2022 Chief Complaint Patient complains of not feeling well. Patient states that she is short of breath and feels achy. History of Present Illness Patient is a 66-year-old female, who follows with Dr. Agnes Hernandez with a past medical history significant for hypertension, MARGARETTE on CPAP, lung cancer s/p left upper lobectomy, and IBS, presented to [facility] emergency department with the chief complaint of shortness of breath. Patientstates the shortness of breath started about a month prior and seems to be worse with taking a deepbreath, exerting herself and at night. She acknowledges that she has anxiety and just started a newmedication to help control her anxiety. She adds that her blood sugars have been very high lately. She adds that she is not sure she is using the Lantus pen correctly. She also states that she does not sleep very well and does not want to get up at 0900 to take her Lantus. When she does get up later, she is unsure whether she should take it or not because she will have another dose due later. Patient denies any recent illness or sick contacts. She denies any fever, chills, cough, chest pain, abdominal pain, nausea or dysuria. She does report that she has frequency typically every hour or so at night. In the emergency department, chest x-ray revealed suboptimal exam given patient body habitus and rotation. Increased opacity over the left lung base in the retrocardiac area may represent summation artifact. However, underlying airspace disease is difficult to exclude. Diffuse interstitial prominence, which could be artifactually increased due to low lung volumes and patient body habitus althoughcorrelate for any symptoms of interstitial edema or bronchitis. CBC revealed hemoglobin 11.9 and hematocrit 36.7. BMP significant for glucose 745, sodium 123, potassium 5.5, BUN 54 and creatinine 1.80. D-dimer 2.47 but age- adjusted would make VTE unlikely. BNP mildly elevated 204, troponin negative. Patient was administered breathing treatments, 1 liter of NS, 10 mg lokelma PO, 15 unites regular insulin IV, 2 grams ceftriaxone IV and 100 mg doxycycline IV in the ED. The ED physician recommendedadmission due to patient's critically high glucose level as well as hyponatremia and hypoxia. Patient was accepted for admission and transferred to telemetry for further evaluation and treatment. We will start NS @ 100cc/hr for 24 hours. We will start duoneb aerosols as needed and scheduled. Continue supplemental oxygen as needed to maintain oxygen saturations above 92%. We will start high-dose sliding scale insulin with blood glucose checks before meals and at bedtime. We will restart home diabetes medications. Check urine for urine sodium and urine osmolality. Check urine for legionella. Check mycoplasma antibody. Repeat CBC and BMP in the am. Patient seen and evaluated this morning while resting in her recliner. She states she is strugglingwith managing her diabetes. She is unsure of how to plan meals. She states she does sleep well at night due to frequently having to get up to void. She then sometimes falls asleep while she is cooking food. Patient states she is not sure what she is doing wrong. Patient advised that we will have a pharmacist come down and talk to her as well as have her nurse talk patient through using her own pen to make sure she is using it correctly. We will have the electronics specialist talk to her today about meal choices. Review of Systems Review of Systems: Reviewed in detail, including general health, HEENT, cardiovascular, respiratory, gastrointestinal, genitourinary, endocrine, musculoskeletal, neurologic, vascular, skin, and psychiatric. All are negative except for those listed in the History of Present Illness. Physical Exam Vitals and Measurements T: 36.2 C (Oral) TMIN: 36.2 C (Oral) TMAX: 36.9 C (Oral) HR: 64(Monitored) RR: 18 BP: 120/62 SpO2: 96% HT: 175.3 cm WT: 138.5 kg BMI: 45.04 Weight Dosing Weight: 138.5 kg (11/02/22) Dosing Weight: 138.4 kg (11/01/22) General: No acute distress. Patient is alert and appropriate. Skin: No rash. Skin is warm, dry and intact. HEENT: Head is normocephalic, atraumatic. Pupils are equal, round and reactive. Neck: Supple. No lymphadenopathy, thyromegaly. Lungs: Bilaterally clear but diminished without crepitation or wheeze. Unlabored. Heart: Heart is regular rhythm, S1, S2. No murmurs, gallops or rubs. Abdomen: Abdomen is soft, nontender, obese. Bowels sounds present in all quadrants. Extremities: No clubbing, cyanosis; generalized edema noted in bilateral lower extremities. Peripheral pulses palpable. No calf tenderness. Neurological: Patient is awake and alert to person, place and time. Following simple commands, moving all extremities. Lab Results 11/02 05:37 WBC: 7.5 Hgb: 11.6 L Hct: 34.5 L Platelet: 173 Neutrophil %: 47.3 Glucose Level: 277 H Sodium Level: 130 L Potassium Level: 4.3 BUN: 55 H Creatinine Lvl (s): 1.64 H 11/01 22:17 Glucose Level: 512 C Sodium Level: 128 L Potassium Level: 4.7 BUN: 55 H Creatinine Lvl (s): 1.63 H 11/01 18:07 Glucose Level: 630 C Sodium Level: 125 L Potassium Level: 4.2 BUN: 53 H Creatinine Lvl (s): 1.91 H 11/01 15:19 WBC: 7.8 Hgb: 11.9 L Hct: 36.7 L Platelet: 199 Neutrophil %: 57.8 Glucose Level: 745 C Sodium Level: 123 L Potassium Level: 5.5 H BUN: 54 H Creatinine Lvl (s): 1.80 H Imaging Results and Diagnostics XR Chest 1 View Result Date: November 01, 2022 Verified By: ANDREAS LEE DO CLINICAL STATEMENT: IMPRESSION: Suboptimal exam given patient body habitus and rotation. Increased opacity over the left lung base in the retrocardiac area may represent summation artifact. However, underlying airspace disease is difficult to exclude. Diffuse interstitial prominence, which could be artifactually increased due to low lung volumes and patient body habitus although correlate for any symptoms of interstitial edema or bronchitis. I have personally reviewed the images of this examination and agree with the resident's findings and interpretation. Assessment/Plan 1. Shortness of breath Acute on chronic, patient reports being more short of breath over the last month, denies any fever or chills *Patient was on oxygen on arrival but has been weaned down to room air with acceptable oxygen saturations. *Patient did get Ceftriaxone IV and doxycycline IV in the ED. We will continue those antibiotics until atypicals come back. She has no leukocytosis and has been afebrile so unlikely that this is pneumonia. *Check urine for legionella. *Check mycoplasma antibody. *Continue supplemental oxygen as needed to maintain oxygen saturations above 92%. Wean oxygen as able. *Start duoneb aerosols as needed and scheduled for shortness of breath/wheezing. 2. Hyponatremia Acute, new onset, likely secondary to polydipsia and polyuria from high blood glucose levels, sodium 123 in ED and improved to 130 this am *Continue NS @ 100cc/hr x 24 hours. *Check urine sodium and urine osmolality. *Serum osmolality 318. *Repeat BMP in the am. 3. Diabetes mellitus type 2 Chronic, uncontrolled *Blood sugar checks before meals and at bedtime. *Cover with high-dose sliding scale insulin. *Continue 26 units of Novolog TIDAC. *Continue Lantus at home dose - patient to use own pen and demonstrate how she has been using the pen at home. *Check HgbA1c in the am. *Continue diabetic diet. *Pharmacist, electronics specialist and nursing providing diabetic teaching. 4. Bipolar disorder Chronic *Continue current home medications. 5. Hypertension Chronic *Continue current home antihypertensives. *SBP goal of 140 or less. 6. MARGARETTE (obstructive sleep apnea) Chronic *May use CPAP at night. 7. GERD (gastroesophageal reflux disease) Chronic *Continue current home medications. DVT prophylaxis with heparin sc. Code status: Full Code. Labs, diagnostic test and progress notes reviewed as noted in HPI. Plan of care discussed with patient. All questions answered. Patient verbalizes understanding and is agreeable with plan of care. This case was discussed with collaborating physician, Dr. Sarthak Webster. 75 minutes spent reviewing past diagnostic tests, reviewing lab results, vital sign trends, medicalhistory, reviewing medications and ordering home medications, discussing case with pharmacy, electronics specialist, nursing, therapy and social work therapist, examining patient, collaborating with physician, and docum enting in chart. 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 COPD Depression Diabetes mellitus type 2 GERD (gastroesophageal reflux disease) Hypercholesterolemia Hypertension IBS (irritable bowel syndrome) Incontinence MARGARETTE (obstructive sleep apnea) Osteoarthritis Stuttering Historical Breast cancer Procedure/Surgical History Cholecystectomy: 2013 Lumpectomy of breast: 2012 Eye surgery: 1969 Suspension of bladder Cystoscopy Colonoscopy Medications Home Medications (21) Active albuterol MDI (90 mcg/inh) CFC free inhalation aerosol 2 puff(s), PRN, Inhalation, q4h atenolol 50 mg oral tablet 50 mg = 1 tab(s), Oral, qAM atorvastatin 40 mg oral tablet 40 mg = 1 tab(s), Oral, qHS calcium-vitamin D 600 mg-5 mcg (200 intl units) oral capsule 1 cap(s), Oral, with lunch colchicine 0.6 mg oral capsule 0.6 mg = 1 cap(s), PRN, Oral, qDay Colestid 1 g oral tablet 2 gram(s) = 2 tab(s), Oral, BID desvenlafaxine (as succinate) 50 mg oral tablet, extended release 50 mg = 1 tab(s), Oral, qDay doxepin 100 mg oral capsule 100 mg = 1 cap(s), Oral, qHS DuoNeb 3 mL, PRN, Inhalation, q2hRT Fish Oil 1000 mg oral capsule 2,000 mg = 2 cap(s), Oral, BID furosemide 20 mg oral tablet 20 mg = 1 tab(s), Oral, BID HumaLOG 100 units/mL injectable solution VIAL See Instructions HumaLOG 100 units/mL subcutaneous solution 24 unit(s), Subcutaneous, TIDAC HumuLIN 70/30 See Instructions Januvia 50 mg oral tablet 50 mg = 1 tab(s), Oral, qDay Lantus 100 units/mL10 ml vial solution 70 unit(s), Subcutaneous, BID loratadine 10 mg, Oral, qDay omeprazole 40 mg oral delayed release capsule 40 mg = 1 cap(s), Oral, qAM oxybutynin 10 mg/24 hr oral tablet, extended release 10 mg = 1 tab(s), Oral, qDay pregabalin 50 mg, Oral, TID Therems M oral tablet 1 tab(s), Oral, with lunch Allergies Bee Stings (Difficulty breathing) morphine (Anaphylaxis) Eggs (Nausea and vomiting) Brintellix HYDROcodone aspirin calcium carbonate (Unknown) codeine (Amnesia, Altered mental status) flu vaccines (Unknown) gabapentin (Abnormal muscle function) influenza virus vaccine, inactivated penicillin propoxyphene Social History Smoking Status - 11/05/2017 Never smoker Alcohol - No Risk, 02/19/2017 Use: Current. Frequency: 1-2 times per year., 09/14/2018 Home/Environment Domestic Concerns: None. Living situation: Home with assistance. Lives In: Single level home. Current Home Treatments Blood glucose monitoring, BIPAP. 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 Marital Status: Unmarried., 02/02/2021 Nutrition/Health Type of diet: Regular. Appetite Good. Eating Difficulties No teeth, DENTURES UPPERS. Caffeine intake amount: 1 CAN SODA/DAY., 02/02/2021 Substance Abuse - No Risk, 02/19/2017 Use: Never., 09/14/2018 Tobacco - High Risk, 02/24/2020 Tobacco Use: Former smoker, quit more than 30 days ago., 09/14/2018 Family History Breast cancer: Mother. Diabetes mellitus type 2: Mother. Heart attack: Father. Heart disease: Father. Skin cancer: Sister. Sister: History is negative Immunizations hepatitis B adult vaccine: 0 unknown unit (01/23/97) hepatitis B adult vaccine: 0 unknown unit (06/27/96) hepatitis B adult vaccine: 0 unknown unit (05/09/96) pneumococcal 13-valent conjugate vaccine: 0.5 unknown unit (07/27/21) SARS-CoV-2 (COVID-19) mRNA-1273 vaccine: 0.5 unknown unit (11/15/20) SARS-CoV-2 (COVID-19) mRNA-1273 vaccine: 0.5 unknown unit (10/17/20) tetanus/diphth/pertuss (Tdap) adult/adol: 0.5 unknown unit (02/02/22) tetanus/diphth/pertuss (Tdap) adult/adol: 0.5 mL (06/19/20) zoster vaccine, inactivated: 1 unknown unit (02/02/22) Code Status Code Status - Ordered -- 11/01/22 19:10:00 EDT, Full Code, Constant Order Digitally Signed by AGNES DUNCAN on 11/02/2022 03:07 PM [place] [id number] Note ORIGINAL EXAMINATION: ONE XRAY VIEW OF THE CHEST 11/01/2022 4:16 pm COMPARISON: 09/20/2022. HISTORY: ORDERING SYSTEM PROVIDED HISTORY: Reason for Exam: chest pain FINDINGS: Body habitus obscures detail. There is patient rotation. Stable mild cardiomegaly. The mediastinum appears prominent due to rotation and technique. No large volume pleural effusion or definite pneumothorax. No definite focal consolidation. Increased opacity over the left lung base in the retrocardiac area may represent summation artifact. Mild interstitial prominence. Decreased lung volumes with associated hypoventilatory changes. Degenerative changes the spine. IMPRESSION: Suboptimal exam given patient body habitus and rotation. Increased opacity over the left lung base in the retrocardiac area may represent summation artifact. However, underlying airspace disease is difficult to exclude. Diffuse interstitial prominence, which could be artifactually increased due to low lung volumes and patient body habitus although correlate for any symptoms of interstitial edema or bronchitis. I have personally reviewed the images of this examination and agree with the resident's findings and interpretation. Interpreted by: Andreas Lee DO Preliminary Report By: Pb Ching Electronically signed By Andreas Lee DO Dictated Date: 11/01/2022 4:17:54 PM Prelim Date: 11/01/2022 4:20:14 PM Sign Date: 11/01/2022 4:33:53 PM [facility] Note Sinus rhythm Left bundle branch block Compared to ECG at 09/19/2022 12:24:38 Compared to ECG at 07/21/2021 19:00:38 Electronic Signature: JESÚS HOUSTON DO 11/01/2022 15:35:49[facility] 06-05-2023 Hospital Discharge instructions Patient Education 09/20/2022 16:52:32 Community-Acquired Pneumonia, Adult, [id number] Community-Acquired Pneumonia, Adult Pneumonia is an infection of the lungs. It causes swelling in the airways of the lungs. Mucus and fluid may also build up inside the airways. One type of pneumonia can happen while a person is in a hospital. A different type can happen when a person is not in a hospital (community-acquired pneumonia). What are the causes? This condition is caused by germs (viruses, bacteria, or fungi). Some types of germs can be passed from one person to another. This can happen when you breathe in droplets from the cough or sneeze ofan infected person. What increases the risk? You are more likely to develop this condition if you: Have a long-term (chronic) disease, such as: ?Chronic obstructive pulmonary disease (COPD). ?Asthma. ?Cystic fibrosis. ?Congestive heart failure. ?Diabetes. ?Kidney disease. Have HIV. Have sickle cell disease. Have had your spleen removed. Do not take good care of your teeth and mouth (poor dental hygiene). Have a medical condition that increases the risk of breathing in droplets from your own mouth and nose. Have a weakened body defense system (immune system). Are a smoker. Travel to areas where the germs that cause this illness are common. Are around certain animals or the places they live. What are the signs or symptoms? A dry cough. A wet (productive) cough. Fever. Sweating. Chest pain. This often happens when breathing deeply or coughing. Fast breathing or trouble breathing. Shortness of breath. Shaking chills. Feeling tired (fatigue). Muscle aches. How is this treated? Treatment for this condition depends on many things. Most adults can be treated at home. In some cases, treatment must happen in a hospital. Treatment may include: Medicines given by mouth or through an IV tube. Being given extra oxygen. Respiratory therapy. In rare cases, treatment for very bad pneumonia may include: Using a machine to help you breathe. Having a procedure to remove fluid from around your lungs. Follow these instructions at home: Medicines Take lrrz-rcq-pgxbddc and prescription medicines only as told by your doctor. ?Only take cough medicine if you are losing sleep. If you were prescribed an antibiotic medicine, take it as told by your doctor. Do not stop taking the antibiotic even if you start to feel better. General instructions Sleep with your head and neck raised (elevated). You can do this by sleeping in a recliner or by putting a few pillows under your head. Rest as needed. Get at least 8 hours of sleep each night. Drink enough water to keep your pee (urine) pale yellow. Eat a healthy diet that includes plenty of vegetables, fruits, whole grains, low-fat dairy products, and lean protein. Do not use any products that contain nicotine or tobacco. These include cigarettes, e-cigarettes, and chewing tobacco. If you need help quitting, ask your doctor. Keep all follow-up visits as told by your doctor. This is important. How is this prevented? A shot (vaccine) can help prevent pneumonia. Shots are often suggested for: People older than 65 years of age. People older than 19 years of age who: ?Are having cancer treatment. ?Have long-term (chronic) lung disease. ?Have problems with their body's defense system. You may also prevent pneumonia if you take these actions: Get the flu (influenza) shot every year. Go to the dentist as often as told. Wash your hands often. If you cannot use soap and water, use hand topstitcher lockstitch. Contact a doctor if: You have a fever. You lose sleep because your cough medicine does not help. Get help right away if: You are short of breath and it gets worse. You have more chest pain. Your sickness gets worse. This is very serious if: ?You are an older adult. ?Your body's defense system is weak. You cough up blood. Summary Pneumonia is an infection of the lungs. Most adults can be treated at home. Some will need treatment in a hospital. Drink enough water to keep your pee pale yellow. Get at least 8 hours of sleep each night. This information is not intended to replace advice given to you by your health care provider. Make sure you discuss any questions you have with your health care provider. Document Released: 09/20/2008 Document Revised: 07/25/2019 Document Reviewed: 11/30/2018 [employer] Patient Education 2020 [employer]. Follow Up Care 09/19/2022 23:44:01 With:AGNES HERNANDEZ DO Address: [address] [place] [id number]- When:1-2 days With:[facility] will be supplying your oxygen at discharge. Please call [phone] when you arrive home and they will deliver your concentrator. They will bring a portable tank to your room. Address: When:1-2 days With:[facility] will be providing your home healthcare services at home. They should be contacting you soon. If you do not hear from them within 24 hours after discharge, please give them a call at the provided number. Address: When:1-2 days [facility] 06-05-2023 Discharge summary Date of Service 09.20.22 Discharge Diagnosis 1. LINDA (acute kidney injury) (N17.9 - ICD-10-CM) 2. Asthenia (R53.1 - ICD-10-CM) 3. Falls (W19.XXXA - ICD-10-CM) 4. Thrush (B37.0 - ICD-10-CM) 5. Community acquired pneumonia (J18.9 - ICD-10-CM) 6. COPD (J44.9 - ICD-10-CM) 7. Diabetes mellitus type 2 (E11.9 - ICD-10-CM) 8. Hypertension (I10 - ICD-10-CM) Additional Orders: Ordered: Discharge,09/20/22 16:06:00 EDT, Discharged to: Home Ordered: Discharge Activity,NO activity restrictions, 09/20/22 16:06:00 EDT Ordered: Discharge Diet,No changes were made to your diet during your hospital stay. Please resume your pre hospitalization diet on discharge., 09/20/22 16:06:00 EDT Ordered: Discharge Outpatient Labwork,bmp, linda, follow-up within: 1 week, Results Notify to: AGNES HERNANDEZ DO, 09/20/22 16:06:00 EDT Ordered: Discharge Oxygen Therapy,Oxygen, Mobile in the Home Portable O2, Nasal Cannula, 2 litersper minute, 6 month(s), 09/20/22 16:06:00 EDT Modified: Margarette,Start: 09/20/22 14:58:00 EDT, Dose = 750 mg, = 1 tab(s), Oral, qDay, 0, 09/20/2313:57:00 EDT Ordered: levoFLOXacin 750 mg oral tablet,Dose : 750 mg = 1 tab(s), Oral, q24h, X 7 day(s), # 7 tab(s), 0 Refill(s), 09/27/22 16:01:00 EDT, Pharmacy: [facility] #[id number], 175.3, cm, 09/20/22 0:36:00 EDT, Height, 160.5 Ordered: nystatin 100,000 units/mL oral suspension,Dose : 500,000 unit(s) = 5 mL, Swish & Swallow, QID, X 14 day(s), # 280 mL, 0 Refill(s), 10/04/22 16:01:00 EDT, Pharmacy: [facility] #[id number], 175.3, cm, 09/20/22 0:36:00 EDT, Height Hospital Course This is a 66-year-old female with a history of COPD, hypertension, diabetes and MARGARETTE who presented to the hospital for weakness and falls. She complains of having a cough and reports she has generalized pain from coughing so much. She reports she is not really bringing up any sputum. She had acute kidney injury on admission, diclofenac, valsartan, Lasix was all held and this is now resolved. She was found to have thrush, started on nystatin. She was evaluated by physical therapy who felt that she would benefit from home therapy. She also had some hypotension. Her blood sugars have been stable since she has been here. She had a chest x-ray that showed suspected left basilar atelectasis or other airspace disease. Repeat two-view chest x-ray shows mild left basilar atelectasis/airspace disease. Due to these findings and patient's cough she is being treated for community-acquired pneumonia with Levaquin as she also has a history of COPD. I do not feel that she has COPD exacerbation. She was hypoxic at 82% on room air for me today but improved to 100% with 2 L nasal cannula. Patient will be discharged home with home O2. Started on nystatin for thrush which which she will continue, home therapy has been ordered. She is to follow- up with her primary care provider, will hold her Lasix for a few more days and continue to hold her valsartan. She needs follow-up laboratory studies within 1 week. Otherwise medically stable for discharge home. Allergies Bee Stings (Difficulty breathing) morphine (Anaphylaxis) Eggs (Nausea and vomiting) Brintellix HYDROcodone aspirin calcium carbonate (Unknown) codeine (Amnesia, Altered mental status) flu vaccines (Unknown) gabapentin (Abnormal muscle function) influenza virus vaccine, inactivated penicillin propoxyphene Consults No qualifying data available. Physical Exam Vitals and Measurements T: 36.6 C (Oral) TMIN: 36.5 C (Oral) TMAX: 36.6 C (Oral) HR: 90(Apical) RR: 17 BP: 128/58 SpO2: 100% HT: 175.3 cm WT: 160.5 kg BMI: 52.23 Weight Dosing Weight: 160.5 kg (09/20/22) Vitals Signs(Last 24 hrs)__ Last Charted Minimum Maximum Temp 36.6(SEP 20:28) 36.6(SEP 20:28) 36.5(SEP 19 23:46) Heart Rate 90(SEP 20:) 90(SEP 20:28) H 104(SEP 20 08:00) Resp Rate 17(SEP 20 14:28) 16(SEP 20 08:00) 20(SEP 19 23:46) SBP 128(SEP 20 14:28) 104(SEP 20 03:14) 130(SEP 20 10:58) DBP L 58(SEP 20:28) L 58(SEP 20 14:28) 88(SEP 20 08:00) Physical Exam General: No acute distress. Alert and Appropriate Skin: No rash. Warm, Dry, Intact Lungs: Bilaterally diminished Cardiovascular: Heart is regular rhythm, S1S2, No extra-audible heart tones Abdomen: Abdomen is soft, nontender. Bowel sounds positive all four quadrants. No hepatosplenomegaly noted. Extremities: No clubbing, cyanosis or edema. Neurological: The patient is awake, oriented to person, place and time. Following simple commands, moving all extremities. DVT PROPHYLAXIS- Code Status Code Status - Ordered -- 09/20/22 0:41:00 EDT, Full Code, Constant Order Admission Date 09.19.22 Discharge Date 09.20.22 Medications New Prescription levoFLOXacin (levoFLOXacin 750 mg oral tablet)1 tab(s) by mouth every 24 hours for 7 Days. Refills:0. nystatin (nystatin 100,000 units/mL oral suspension)5 Milliliter Swish in mouth and swallow four (4) times a day for 14 Days. Refills: 0. Changed furosemide (furosemide 20 mg oral tablet)1 tab(s) by mouth two (2) times a day. Resume on 09/23/22. Unchanged albuterol (albuterol MDI (90 mcg/inh) CFC free inhalation aerosol)2 puff(s) by inhalation every 4 hours as needed as needed for wheezing. albuterol-ipratropium (DuoNeb)3 Milliliter by inhalation Every 2 Hours as needed Shortness of breath (SOB). atenolol (atenolol 50 mg oral tablet)1 tab(s) by mouth once a day (in the morning). atorvastatin (atorvastatin 40 mg oral tablet)1 tab(s) by mouth daily at bedtime. calcium-vitamin D (calcium-vitamin D 600 mg-5 mcg (200 intl units) oral capsule)1 cap by mouth withlunch. colchicine (colchicine 0.6 mg oral capsule)1 cap by mouth once a day as needed Gout pain. colestipol (Colestid 1 g oral tablet)2 tab(s) by mouth two (2) times a day. doxepin (doxepin 100 mg oral capsule)1 cap by mouth daily at bedtime. insulin glargine (Lantus 100 units/mL10 ml vial solution)52 unit(s) Subcutaneous daily at bedtime. insulin isophane (NPH) - insulin regular (HumuLIN 70/30)66 units bid 30mins before breakfast and dinner Subcutaneous. insulin lispro (HumaLOG) (HumaLOG 100 units/mL injectable solution VIAL)24 unit(s) Subcutaneous achs when blood sugar greater than 350. insulin lispro (HumaLOG) (HumaLOG 100 units/mL subcutaneous solution)12 unit(s) Subcutaneous three (3) times a day before meals. [id number] Milligram by mouth once a day. multivitamin with minerals (Therems M oral tablet)1 tab(s) by mouth with lunch. omega-3 polyunsaturated fatty acids (Fish Oil 1000 mg oral capsule)2 cap by mouth two (2) times a day. omeprazole (omeprazole 40 mg oral delayed release capsule)1 cap by mouth once a day (in the morning). oxybutynin (oxybutynin 10 mg/24 hr oral tablet, extended release)1 tab(s) by mouth once a day. [id number] Milligram by mouth three (3) times a day. SITagliptin (Januvia 50 mg oral tablet)1 tab(s) by mouth once a day. Discontinued desvenlafaxine (desvenlafaxine 100 mg oral tablet, extended release)1 tab(s) by mouth once a day (in the morning). diclofenac (diclofenac sodium 75 mg oral delayed release tablet)1 tab(s) by mouth two (2) times a day. valsartan (valsartan 80 mg oral tablet)1 tab(s) by mouth every day. Refills: 0. Follow Up Follow Up with AGNES HERNANDEZ DO When Within 1-2 days Where: [address] [facility] [place] [address]- Follow Up with [facility] will be supplying your oxygen at discharge. Please call [phone] when you arrive home and they will deliver your concentrator. They will bring a portable tank to your room. When Within 1-2 days Where: Follow Up with [facility] will be providing your home healthcare services at home. They should be contacting you soon. If you do not hear from them within 24 hours after discharge, please give them a call at the provided number. When Within 1-2 days Where: Follow Up Appointments No qualifying data available. Follow Up Labs/Studies Discharge Labs Discharge Outpatient Labwork - Ordered -- bmp, linda, follow-up within: 1 week, Results Notify to: AGNES HERNANDEZ DO, 09/20/22 16:06:00 EDT Discharge Studies No Follow-up Studies Discharge Diet Discharge Diet - Ordered -- No changes were made to your diet during your hospital stay. Please resume your pre hospitalization diet on discharge., 09/20/22 16:06:00 EDT Discharge Activity Discharge Activity - Ordered -- NO activity restrictions, 09/20/22 16:06:00 EDT Condition on Discharge stable, improved Discharge Disposition home Information Provided To patient Time Spent >35 min Split/shared visit with Dr. Nicolasa Finnegan Digitally Signed by ARACELI SCHERER on 09/20/2022 04:14 PM [id number] Note Discharge Instructions Thank you for allowing [facility] to assist you with your healthcare needs. The following is importantdischarge information regarding your hospital visit. Your Care Team AGNES HERNANDEZ DO Your Diagnosis LINDA (acute kidney injury) [place]hen[place] Thrush Community acquired pneumonia COPD Diabetes mellitus type 2 Hypertension What to do next Follow Up Appointments Follow Up with AGNES HERNANDEZ DO When Within 1-2 days Where: [address] [facility] [address] [place] [address] [place] [address]- Follow Up with [facility] will be supplying your oxygen at discharge. Please call [phone] when you arrive home and they will deliver your concentrator. They will bring a portable tank to your room. When Within 1-2 days Where: Follow Up with [facility] will be providing your home healthcare services at home. They should be contacting you soon. If you do not hear from them within 24 hours after discharge, please give them a call at the provided number. When Within 1-2 days Where: The Following Activity and Diet Have Been Ordered for You Discharge Activity - Ordered -- NO activity restrictions, 09/20/22 16:06:00 EDT Discharge Diet - Ordered -- No changes were made to your diet during your hospital stay. Please resume your pre hospitalization diet on discharge., 09/20/22 16:06:00 EDT The Following Equipment Has Been Ordered for You Discharge Home Equipment Discharge Oxygen Therapy - Ordered -- Oxygen (CONTINUOUS) Concentrator, Mobile in the Home Portable O2, Nasal Cannula, 2 liters per minute, 99 month(s), 09/20/22 16:08:00 EDT The Following Treatments Have Been Ordered for You Discharge Labs Discharge Outpatient Labwork - Ordered -- bmp, linda, follow-up within: 1 week, Results Notify to: AGNES HERNANDEZ DO, 09/20/22 16:06:00 EDT Discharge Radiology No qualifying data available. Other Therapies No qualifying data available. Post Acute Orders No qualifying data available. Someone Will Contact You Regarding These Home Health Referrals No home referrals have been ordered for you. No one will call you. Allergies Bee Stings (Difficulty breathing) morphine (Anaphylaxis) Eggs (Nausea and vomiting) Brintellix HYDROcodone aspirin calcium carbonate (Unknown) codeine (Amnesia, Altered mental status) flu vaccines (Unknown) gabapentin (Abnormal muscle function) influenza virus vaccine, inactivated penicillin propoxyphene Medications Please ask your primary doctor or pharmacist before taking any other medication not listed, including over the counter drugs, herbal medications, vitamins and or supplements as they may interact withyour home medications. What How Much When Instructions Last Dose New dextromethorphan-guaifenesin (Diabetic Tussin DM 20 mg-200 mg/ 10 mL oral liquid) 10 Milliliter by mouth Every 4 hours Pickup at [facility] #[id number] New levoFLOXacin (levoFLOXacin 750 mg oral tablet) 1 tab(s) by mouth Every 24 hours Duration: 7 Days Pickup at [facility] #[id number] New nystatin (nystatin 100,000 units/ mL oral suspension) 5 Milliliter Swish in mouth and swallow Four (4) times a day Duration: 14 Days Pickup at [facility] #[id number] Changed furosemide (furosemide 20 mg oral tablet) 1 tab(s) by mouth Two (2) times a day Resume on Unchanged albuterol (albuterol MDI (90 mcg/ inh) CFC free inhalation aerosol) 2 puff(s) by inhalation Every 4 hours as needed for as needed for wheezing Unchanged albuterol-ipratropium (DuoNeb) 3 Milliliter by inhalation Every 2 Hours as needed for Shortness of breath (SOB) Unchanged atenolol (atenolol 50 mg oral tablet) 1 tab(s) by mouth Once a day (in the morning) Unchanged atorvastatin (atorvastatin 40 mg oral tablet) 1 tab(s) by mouth Daily at bedtime Unchanged calcium-vitamin D (calcium-vitamin D 600 mg-5 mcg (200 intl units) oral capsule) 1 cap by mouth With lunch Unchanged colchicine (colchicine 0.6 mg oral capsule) 1 cap by mouth Once a day as needed for Gout pain Unchanged colestipol (Colestid 1 g oral tablet) 2 tab(s) by mouth Two (2) times a day Unchanged doxepin (doxepin 100 mg oral capsule) 1 cap by mouth Daily at bedtime Unchanged insulin glargine (Lantus 100 units/ mL10 ml vial solution) 52 unit(s) Subcutaneous Daily at bedtime Unchanged insulin isophane (NPH) - insulin regular (HumuLIN 70/ 30) See instructions 66 units bid 30mins before breakfast and dinner Subcutaneous Unchanged insulin lispro (HumaLOG) (HumaLOG 100 units/ mL injectable solution VIAL) See instructions 24 unit(s) Subcutaneous achs when blood sugar greater than 350 Unchanged insulin lispro (HumaLOG) (HumaLOG 100 units/ mL subcutaneous solution) 12 unit(s) Subcutaneous Three (3) times a day before meals Unchanged loratadine 10 Milligram by mouth Once a day Unchanged multivitamin with minerals (Therems M oral tablet) 1 tab(s) by mouth With lunch Unchanged omega-3 polyunsaturated fatty acids (Fish Oil 1000 mg oral capsule) 2 cap by mouth Two (2) times a day Unchanged omeprazole (omeprazole 40 mg oral delayed release capsule) 1 cap by mouth Once a day (in the morning) Unchanged oxybutynin (oxybutynin 10 mg/ 24 hr oral tablet, extended release) 1 tab(s) by mouth Once a day Unchanged pregabalin 50 Milligram by mouth Three (3) times a day Unchanged SITagliptin (Januvia 50 mg oral tablet) 1 tab(s) by mouth Once a day Pharmacy Information [facility] #[id number]: [address], [place] [id number] [phone] What How Much When Comments Stop Taking desvenlafaxine (desvenlafaxine 100 mg oral tablet, extendedrelease) 1 tab(s) by mouth Once a day (in the morning) Stop Taking diclofenac (diclofenac sodium 75 mg oral delayed release tablet) 1 tab(s) by mouth Two (2) times a day Stop Taking valsartan (valsartan 80 mg oral tablet) 1 tab(s) by mouth Every day Please take this list to your next doctor s visit. Bring all medications you take, including over the counter medications, herbals and other supplements with you to your doctor s visit. Patients and families are reminded to discard old lists and to update any records with all medication providers or retail pharmacies. Education Materials Community-Acquired Pneumonia, Adult Pneumonia is an infection of the lungs. It causes swelling in the airways of the lungs. Mucus and fluid may also build up inside the airways. One type of pneumonia can happen while a person is in a hospital. A different type can happen when a person is not in a hospital (community-acquired pneumonia). What are the causes? This condition is caused by germs (viruses, bacteria, or fungi). Some types of germs can be passed from one person to another. This can happen when you breathe in droplets from the cough or sneeze ofan infected person. What increases the risk? You are more likely to develop this condition if you: Have a long-term (chronic) disease, such as: ? Chronic obstructive pulmonary disease (COPD). ? Asthma. ? Cystic fibrosis. ? Congestive heart failure. ? Diabetes. ? Kidney disease. Have HIV. Have sickle cell disease. Have had your spleen removed. Do not take good care of your teeth and mouth (poor dental hygiene). Have a medical condition that increases the risk of breathing in droplets from your own mouth and nose. Have a weakened body defense system (immune system). Are a smoker. Travel to areas where the germs that cause this illness are common. Are around certain animals or the places they live. What are the signs or symptoms? A dry cough. A wet (productive) cough. Fever. Sweating. Chest pain. This often happens when breathing deeply or coughing. Fast breathing or trouble breathing. Shortness of breath. Shaking chills. Feeling tired (fatigue). Muscle aches. How is this treated? Treatment for this condition depends on many things. Most adults can be treated at home. In some cases, treatment must happen in a hospital. Treatment may include: Medicines given by mouth or through an IV tube. Being given extra oxygen. Respiratory therapy. In rare cases, treatment for very bad pneumonia may include: Using a machine to help you breathe. Having a procedure to remove fluid from around your lungs. Follow these instructions at home: Medicines Take cqqv-mso-xphybhs and prescription medicines only as told by your doctor. ? Only take cough medicine if you are losing sleep. If you were prescribed an antibiotic medicine, take it as told by your doctor. Do not stop taking the antibiotic even if you start to feel better. General instructions Sleep with your head and neck raised (elevated). You can do this by sleeping in a recliner or by putting a few pillows under your head. Rest as needed. Get at least 8 hours of sleep each night. Drink enough water to keep your pee (urine) pale yellow. Eat a healthy diet that includes plenty of vegetables, fruits, whole grains, low-fat dairy products, and lean protein. Do not use any products that contain nicotine or tobacco. These include cigarettes, e-cigarettes, and chewing tobacco. If you need help quitting, ask your doctor. Keep all follow-up visits as told by your doctor. This is important. How is this prevented? A shot (vaccine) can help prevent pneumonia. Shots are often suggested for: People older than 65 years of age. People older than 19 years of age who: ? Are having cancer treatment. ? Have long-term (chronic) lung disease. ? Have problems with their body's defense system. You may also prevent pneumonia if you take these actions: Get the flu (influenza) shot every year. Go to the dentist as often as told. Wash your hands often. If you cannot use soap and water, use hand topstitcher lockstitch. Contact a doctor if: You have a fever. You lose sleep because your cough medicine does not help. Get help right away if: You are short of breath and it gets worse. You have more chest pain. Your sickness gets worse. This is very serious if: ? You are an older adult. ? Your body's defense system is weak. You cough up blood. Summary Pneumonia is an infection of the lungs. Most adults can be treated at home. Some will need treatment in a hospital. Drink enough water to keep your pee pale yellow. Get at least 8 hours of sleep each night. This information is not intended to replace advice given to you by your health care provider. Make sure you discuss any questions you have with your health care provider. Document Released: 09/20/2008 Document Revised: 07/25/2019 Document Reviewed: 11/30/2018 [employer] Patient Education 2020 [employer] Additional Information VACCINATE! IT SAVES LIVES! Members of the community who have not yet received the COVID-19 vaccine and would like to receive it can visit one of [facility] vaccine clinics. There are many vaccine clinic locations within the [facility]. For locations and available times, please visit [email or web address].[place].gov/. It is important to note that some COVID mobile vaccine clinics are held outdoors and may be canceled in rainy or stormy conditions. To learn more about pediatric vaccinations (ages 5-11), we invite you to visit the [facility] webpage. [email or web address] learn more about the COVID-19 vaccine, we invite you to visit the CDC website for a list of frequently asked questions.https://www.cdc.gov/coronavirus/2019-ncov/vaccines/faq.html [facility] Patient Portal Access Instructions: Stay connected with your healthcare team and access your personal medical information anytime with the [facility] Patient Portal. Please follow the directions below to create your [facility] account: 1.Access the email account you provided upon registration to the hospital/physician office.2.Look for an invitation email from [facility].3.Open the email and access the invitation link: AcceptInvitation to [facility].4.Fill in the required rodriges to create your account. To access your account, visit [email or web address]. Click the blue button labeled Access Patient Portal and then log in with the username and password that you created in the steps above. You will be able to view your test results, lab results, a summary of your visits, upcoming appointments and more. There is also a convenient messaging option where you can send secure messages to your p [employer]. In addition, you will have the ability to download any documents or summaries to your computer and/or send the information securely to a physician. Remember that your healthcare information is confidential, so carefully consider who you will allowto register on the [facility] [employer] Patient Portal for access to your information. You can also access the [facility] Patient Portal on the [facility] [employer] trudy. Simply click on Patient Portal and then log into your account. If you would like to receive a full copy of your medical records, please contact the [facility] Medical Records Department by calling [phone], Tuesday through Tuesday between 8 a.m. and 4:30 p.m. HOW TO SAFELY DISPOSE OF PRESCRIPTION MEDICATIONS Please use one of the following methods to safely dispose of your unused medications. 1.Use a drug disposal kit: the drug disposal pouch allows you to safely discard your old and unuseddrugs. Ask your nurse to give you one when you are discharged.2.Visit a local take-back location: Many local pharmacies and police departments have programs that collect old and unwanted prescriptiondrugs. Call your local pharmacy or go to http://[email or web address] to find one close to you.3.Make use of household items: Use cat litter or old coffee grounds to dispose medications if other options arenot available. Mix your drugs with these household products, seal them in an airtight container andthrow it into the garbage. Call [facility]: [phone] to be sure your drugs can be disposed of in this way. Some medicines may require a different approach.4.Never flush your medications down the toilet. IF YOU HAVE BEEN PRESCRIBED AN OPIOID FOR PAIN If you have been prescribed an opioid (such as hydrocodone, oxycodone or morphine), it is critical to understand the possible side effects and risks of opioid pain medications. Even when taken as directed, opioids can have several side effects including: Tolerance, meaning you might need to take more of a medication for the same pain relief. Nausea, vomiting and/or constipation. Sleepiness, dizziness, dry mouth, confusion, depression or itching. Physical dependence, meaning you have withdrawal symptoms when a medication is stopped, can develop within a few days. KNOW YOUR RESPONSIBILITIES It is important to know exactly how much and how often to take the opioid pain medications you are prescribed. Never take opioids in higher amounts or more often than prescribed. Do not combine opioids with alcohol or other drugs that cause drowsiness, such as benzodiazepines, also known as benzos, including diazepam and alprazolam, muscle relaxants or sleep aids. Never sell or share prescription opioids. This is illegal. Store opioids in a secure place and out of reach of others (including children, family, friends and visitors). The last page of this document has been signed and retained as a CHART COPY. Signatures Patient Education Materials Community-Acquired Pneumonia, Adult, [id number] Medication Leaflets My discharge plan and instructions have been reviewed and explained to me and IJENNIFER PAMELA A understand my current condition and have read and understand these discharge instructions. I have received a written copy of the plan/instructions. If I have questions, I am aware that I should contact my doctor. Patient/Vault Person Signature: Date/Time: Relationship to Patient: Witness Name/Signature: Date/Time: [id number] Discharge summary Date of Service 6.09.07 Discharge Diagnosis 1. LINDA (acute kidney injury) (N17.9 - ICD-10-CM) 2. Asthenia (R53.1 - ICD-10-CM) 3. Falls (W19.XXXA - ICD-10-CM) 4. Thrush (B37.0 - ICD-10-CM) 5. Community acquired pneumonia (J18.9 - ICD-10-CM) 6. COPD (J44.9 - ICD-10-CM) 7. Diabetes mellitus type 2 (E11.9 - ICD-10-CM) 8. Hypertension (I10 - ICD-10-CM) Additional Orders: Ordered: Discharge,09/20/22 16:06:00 EDT, Discharged to: Home Ordered: Discharge Activity,NO activity restrictions, 09/20/22 16:06:00 EDT Ordered: Discharge Diet,No changes were made to your diet during your hospital stay. Please resume your pre hospitalization diet on discharge., 09/20/22 16:06:00 EDT Ordered: Discharge Outpatient Labwork,bmp, linda, follow-up within: 1 week, Results Notify to: AGNES HERNANDEZ DO, 09/20/22 16:06:00 EDT Ordered: Discharge Oxygen Therapy,Oxygen, Mobile in the Home Portable O2, Nasal Cannula, 2 litersper minute, 6 month(s), 09/20/22 16:06:00 EDT Modified: Margarette,Start: 09/20/22 14:58:00 EDT, Dose = 750 mg, = 1 tab(s), Oral, qDay, 0, 09/20/2313:57:00 EDT Ordered: levoFLOXacin 750 mg oral tablet,Dose : 750 mg = 1 tab(s), Oral, q24h, X 7 day(s), # 7 tab(s), 0 Refill(s), 09/27/22 16:01:00 EDT, [facility]: [id number], 175.3, cm, 09/20/22 0:36:00 EDT, Height, 160.5 Ordered: nystatin 100,000 units/mL oral suspension,Dose : 500,000 unit(s) = 5 mL, Swish & Swallow, QID, X 14 day(s), # 280 mL, 0 Refill(s), 10/04/22 16:01:00 EDT, [facility]: [facility] #[id number], 175.3, cm, 09/20/22 0:36:00 EDT, Height Hospital Course This is a 66-year-old female with a history of COPD, hypertension, diabetes and MARGARETTE who presented to the hospital for weakness and falls. She complains of having a cough and reports she has generalized pain from coughing so much. She reports she is not really bringing up any sputum. She had acute kidney injury on admission, diclofenac, valsartan, Lasix was all held and this is now resolved. She was found to have thrush, started on nystatin. She was evaluated by physical therapy who felt that she would benefit from home therapy. She also had some hypotension. Her blood sugars have been stable since she has been here. She had a chest x-ray that showed suspected left basilar atelectasis or other airspace disease. Repeat two-view chest x-ray shows mild left basilar atelectasis/airspace disease. Due to these findings and patient's cough she is being treated for community-acquired pneumonia with Levaquin as she also has a history of COPD. I do not feel that she has COPD exacerbation. She was hypoxic at 82% on room air for me today but improved to 100% with 2 L nasal cannula. Patient will be discharged home with home O2. Started on nystatin for thrush which which she will continue, home therapy has been ordered. She is to follow- up with her primary care provider, will hold her Lasix for a few more days and continue to hold her valsartan. She needs follow-up laboratory studies within 1 week. Otherwise medically stable for discharge home. Allergies Bee Stings (Difficulty breathing) morphine (Anaphylaxis) Eggs (Nausea and vomiting) Brintellix HYDROcodone aspirin calcium carbonate (Unknown) codeine (Amnesia, Altered mental status) flu vaccines (Unknown) gabapentin (Abnormal muscle function) influenza virus vaccine, inactivated penicillin propoxyphene Consults No qualifying data available. Physical Exam Vitals and Measurements T: 36.6 C (Oral) TMIN: 36.5 C (Oral) TMAX: 36.6 C (Oral) HR: 90(Apical) RR: 17 BP: 128/58 SpO2: 100% HT: 175.3 cm WT: 160.5 kg BMI: 52.23 Weight Dosing Weight: 160.5 kg (09/20/22) Vitals Signs(Last 24 hrs)__ Last Charted Minimum Maximum Temp 36.6(SEP 20:28) 36.6(SEP 20:28) 36.5(SEP 19 23:46) Heart Rate 90(SEP 20:28) 90(SEP 20 14:28) H 104(SEP 20 08:00) Resp Rate 17(SEP 20 14:28) 16(SEP 20 08:00) 20(SEP 19 23:46) SBP 128(SEP 20 14:28) 104(SEP 20 03:14) 130(SEP 20 10:58) DBP L 58(SEP 20:28) L 58(SEP 20 14:28) 88(SEP 20 08:00) Physical Exam General: No acute distress. Alert and Appropriate Skin: No rash. Warm, Dry, Intact Lungs: Bilaterally diminished Cardiovascular: Heart is regular rhythm, S1S2, No extra-audible heart tones Abdomen: Abdomen is soft, nontender. Bowel sounds positive all four quadrants. No hepatosplenomegaly noted. Extremities: No clubbing, cyanosis or edema. Neurological: The patient is awake, oriented to person, place and time. Following simple commands, moving all extremities. DVT PROPHYLAXIS- Code Status Code Status - Ordered -- 09/20/22 0:41:00 EDT, Full Code, Constant Order Admission Date 09.19.22 Discharge Date 09.20.22 Medications New Prescription levoFLOXacin (levoFLOXacin 750 mg oral tablet)1 tab(s) by mouth every 24 hours for 7 Days. Refills:0. nystatin (nystatin 100,000 units/mL oral suspension)5 Milliliter Swish in mouth and swallow four (4) times a day for 14 Days. Refills: 0. Changed furosemide (furosemide 20 mg oral tablet)1 tab(s) by mouth two (2) times a day. Resume on 09/23/22. Unchanged albuterol (albuterol MDI (90 mcg/inh) CFC free inhalation aerosol)2 puff(s) by inhalation every 4 hours as needed as needed for wheezing. albuterol-ipratropium (DuoNeb)3 Milliliter by inhalation Every 2 Hours as needed Shortness of breath (SOB). atenolol (atenolol 50 mg oral tablet)1 tab(s) by mouth once a day (in the morning). atorvastatin (atorvastatin 40 mg oral tablet)1 tab(s) by mouth daily at bedtime. calcium-vitamin D (calcium-vitamin D 600 mg-5 mcg (200 intl units) oral capsule)1 cap by mouth withlunch. colchicine (colchicine 0.6 mg oral capsule)1 cap by mouth once a day as needed Gout pain. colestipol (Colestid 1 g oral tablet)2 tab(s) by mouth two (2) times a day. doxepin (doxepin 100 mg oral capsule)1 cap by mouth daily at bedtime. insulin glargine (Lantus 100 units/mL10 ml vial solution)52 unit(s) Subcutaneous daily at bedtime. insulin isophane (NPH) - insulin regular (HumuLIN 70/30)66 units bid 30mins before breakfast and dinner Subcutaneous. insulin lispro (HumaLOG) (HumaLOG 100 units/mL injectable solution VIAL)24 unit(s) Subcutaneous achs when blood sugar greater than 350. insulin lispro (HumaLOG) (HumaLOG 100 units/mL subcutaneous solution)12 unit(s) Subcutaneous three (3) times a day before meals. [id number] Milligram by mouth once a day. multivitamin with minerals (Therems M oral tablet)1 tab(s) by mouth with lunch. omega-3 polyunsaturated fatty acids (Fish Oil 1000 mg oral capsule)2 cap by mouth two (2) times a day. omeprazole (omeprazole 40 mg oral delayed release capsule)1 cap by mouth once a day (in the morning). oxybutynin (oxybutynin 10 mg/24 hr oral tablet, extended release)1 tab(s) by mouth once a day. [id number] Milligram by mouth three (3) times a day. SITagliptin (Januvia 50 mg oral tablet)1 tab(s) by mouth once a day. Discontinued desvenlafaxine (desvenlafaxine 100 mg oral tablet, extended release)1 tab(s) by mouth once a day (in the morning). diclofenac (diclofenac sodium 75 mg oral delayed release tablet)1 tab(s) by mouth two (2) times a day. valsartan (valsartan 80 mg oral tablet)1 tab(s) by mouth every day. Refills: 0. Follow Up Follow Up with AGNES HERNANDEZ DO When Within 1-2 days Where: [address] [place] [address]- Follow Up with [facility] will be supplying your oxygen at discharge. Please call [phone] when you arrive home and they will deliver your concentrator. They will bring a portable tank to your room. When Within 1-2 days Where: Follow Up with [facility] will be providing your home healthcare services at home. They should be contacting you soon. If you do not hear from them within 24 hours after discharge, please give them a call at the provided number. When Within 1-2 days Where: Follow Up Appointments No qualifying data available. Follow Up Labs/Studies Discharge Labs Discharge Outpatient Labwork - Ordered -- bmp, linda, follow-up within: 1 week, Results Notify to: AGNES HERNANDEZ DO, 09/20/22 16:06:00 EDT Discharge Studies No Follow-up Studies Discharge Diet Discharge Diet - Ordered -- No changes were made to your diet during your hospital stay. Please resume your pre hospitalization diet on discharge., 09/20/22 16:06:00 EDT Discharge Activity Discharge Activity - Ordered -- NO activity restrictions, 09/20/22 16:06:00 EDT Condition on Discharge stable, improved Discharge Disposition home Information Provided To patient Time Spent >35 min Split/shared visit with Dr. Nicolasa Finnegan Digitally Signed by ARACELI SCHERER on 09/20/2022 04:14 PM [id number] Note ORIGINAL EXAMINATION: TWO XRAY VIEWS OF THE CHEST09/20/2022 3:09 pm COMPARISON: 09/19/2022 HISTORY: ORDERING SYSTEM PROVIDED HISTORY: Reason for Exam: cough FINDINGS: The exam is compromised by rotation and technique. Heart size is prominent but possibly exaggerated. Atelectasis or other airspace disease seen in the left lung base. A hiatal hernia suspected. Small pleural effusions not excluded as the lateral view is compromised. No visible pneumothorax. No aggressive osseous lesions identified. IMPRESSION: Suboptimal exam. Mild left basilar atelectasis/airspace disease. Small pleural effusions not excluded Cardiac silhouette may be exaggerated by technique. PA and lateral views of the chest advised to exclude cardiomegaly or pericardial effusion. Interpreted by: Jacoby Melchor MD Preliminary Report By: Jacoby Melchor MD Electronically signed By Jacoby Melchor MD Dictated Date: 09/20/2022 4:02:59 PM Prelim Date: 09/20/2022 4:05:10 PM Sign Date: 09/20/2022 4:05:10 PM Ordering Provider: [facility]06-05-2023 Note ORIGINAL EXAMINATION: TWO XRAY VIEWS OF THE CHEST09/20/2022 3:09 pm COMPARISON: 09/19/2022 HISTORY: ORDERING SYSTEM PROVIDED HISTORY: Reason for Exam: cough FINDINGS: The exam is compromised by rotation and technique. Heart size is prominent but possibly exaggerated. Atelectasis or other airspace disease seen in the left lung base. A hiatal hernia suspected. Small pleural effusions not excluded as the lateral view is compromised. No visible pneumothorax. No aggressive osseous lesions identified. IMPRESSION: Suboptimal exam. Mild left basilar atelectasis/airspace disease. Small pleural effusions not excluded Cardiac silhouette may be exaggerated by technique. PA and lateral views of the chest advised to exclude cardiomegaly or pericardial effusion. Interpreted by: Jacoby Melchor MD Preliminary Report By: Jacoby Melchor MD Electronically signed By Jacoby Melchor MD Dictated Date: 09/20/2022 4:02:59 PM Prelim Date: 09/20/2022 4:05:10 PM Sign Date: 09/20/2022 4:05:10 PM Ordering Provider: [facility]06-05-2023 Evaluation + Plan noteExtracted from: Title:History and Physical Author:DEBBIE WANG ON MD Date:09/20/22 Falls. Patient with self-rep orted falls at home. Generalized debility. Lives at home alone with her cat. Suspect her weakness is due to chronic uncontrolled medical illnesses including morbid obesity, untreated MARGARETTE, diabetes. LINDA. Creatinine currently 1.89 from close to 1.1 in June. Discontinue home diclofenac. Pause home valsartan. Avoid further episodes of hypotension. COPD. Not currently in exacerbation. We will continue patient's home DuoNebs. HTN. Patient was hypotensive during her course at [place] emergency department. DM 2. She was hyperglycemic in [place] emergency department and given 10 units insulin. She remains in the 300s here. Suspect that she has chronic poor glycemic control. Considering her LINDA will pause her Sitagliptin. Her home insulin schedule does not make sense to me. Attempted to clarify with her but she did not remember the names of insulin or exact amounts. We will continue home Lantus with sliding scale insulin and adjust as appropriate. A1c Bilateral lower extremity edema. 1+ to the midshin. Considering hypotension will pause Lasix. I do not see any record of echo and cannot find a diagnosis leading to this edema. Considering her respiratory problems, right-sided cardiac dysfunction may be a consideration. On an outpatient basis she may require an echo. CXR was poor quality, but demonstrated no pulmonary edema. She was placed on oxygen, though has no documented hypoxia. MARGARETTE. She complains of excessive somnolence and feeling unrefreshed after sleep. Counseled that this is likely related to not having CPAP. CPAP HLD. Continue atorvastatin. Oral thrush. She has dry mouth with white plaque. This is noted to be an ongoing issue for her. She states she has taken no medications because she feels she is already on too many. We will trial nystatin. Nystatin. Incontinence. Continue oxybutynin. GERD. Continue PPI. Gout. Currently no signs or symptoms of flare. Continue colchicine. Medications were not verified by pharmacy at the time of this dictation. Reconciliation to be completed once medications are verified; will address additional chronic medical problems at that time. DVT prophylaxis: SCDs Note dictated using voice recognition software and may contain typographical errors. [facility] 06-05-2023 History and physical note Date of Service 09/20/22 Chief Complaint Weakness History of Present Illness 66-year-old female with PMHx COPD, HTN, DM 2, MARGARETTE presents to the hospital as a transfer from [place] ED for weakness and falls. History is obtained by my colleague who accepted the patient, patient, chart review. The patient endorses a male you of chronic complaints. However, most recently presented to [place] due to increased weakness and falls. She has chronic ongoing diarrhea which is attributed to IBS. Complains of a cough. Significant sleepiness and states that she wakes up feeling unrefreshed. Endorses being adherent to insulin regimen at home, however she does not know insulin doses. Cannot recall all of her medical diagnoses or ongoing treatments. Complains of chronic ongoing hipand back pain for which she takes Tylenol. 3 months ago she was admitted to [facility] and states that she has had a progressive functional decline since that time. CBC shows anemia glucose 42, BUN 56, creatinine 1.52. 3 separate labs were drawn with numerous inconsistencies including sodium 123 later 134. However decisively creatinine is increased from her baseline from 1.1 to up to minimum 1.5 to this most recent lab likely showing 1.85. Lactic acid is elevated at 3.4 with recheck 2.1. There was a value of 15.4 also felt to be lab error. CXR and CT head are of poor quality but demonstrated no acute pathology. ECG is NSR Urinalysis not concerning for infection. Initial BMP showed In the [place] emergency department she is hypotensive at 84/56. Was given IV fluids patient was given 2.5 L IV fluids, ceftriaxone, 10 units insulin, Tylenol. BP stabilized. She is on 2 L O2 but did not have any documented hypoxia. Review of Systems Pertinent review of systems are included in the HPI. All other systems were reviewed and are negative for acute changes from the patient's baseline. Physical Exam Vitals and Measurements T: 36.5 C (Oral) HR: 93(Apical) RR: 20 BP: 128/59 SpO2: 98% GA: AAOx3, NAD : No CVAT or suprapubic tenderness Abd: Soft nontender nondistended BS+ HEENT: very thick neck. Whitish plaque to the tongue and palate and dry oral mucous membranes. Pulmonary: lungs CTA bilaterally, no respiratory distress MSK: no gross deformities Cardiovascular: RRR, no MRG Skin: warm and dry Neuro: Spontaneous equal movement of all extremities. No gross deficits. Lab Results WBC: 10.2 10^3/mcL (09/19/22 12:12:00) RBC: 4.04 10^6/mcL Low (09/19/22 12:12:00) Hgb: 11.2 G/dL Low (09/19/22 12:12:00) Hct: 33.6 % Low (09/19/22 12:12:00) MCV: 83.2 fL (09/19/22 12:12:00) MCH: 27.8 pg (09/19/22 12:12:00) MCHC: 33.5 G/dL (09/19/22 12:12:00) RDW: 15.5 % High (09/19/22 12:12:00) Platelet: 138 10^3/mcL (09/19/22 12:12:00) MPV: 8.5 fL (09/19/22 12:12:00) Monocyte Distribution Width: 22.3 High (09/19/22 12:12:00) Neutrophil %: 78.6 % (09/19/22 12:12:00) Lymphocyte %: 14.4 % (09/19/22 12:12:00) Monocyte %: 6.1 % (09/19/22 12:12:00) Eosinophil %: 0.6 % (09/19/22 12:12:00) Basophil %: 0.3 % (09/19/22 12:12:00) Neutrophil, Absolute: 8 10^3/mcL High (09/19/22 12:12:00) Lymphocyte, Absolute: 1.5 10^3/mcL (09/19/22 12:12:00) Monocyte, Absolute: 0.6 10^3/mcL (09/19/22 12:12:00) Eosinophil, Absolute: 0.1 10^3/mcL (09/19/22 12:12:00) Basophil, Absolute: 0 10^3/mcL (09/19/22 12:12:00) UA Specimen Type: Catheter (09/19/22 12:12:00) UA Color: Yellow (09/19/22 12:12:00) UA Appear: Clear (09/19/22 12:12:00) UA Spec Grav: 1.020 (09/19/22 12:12:00) UA Glucose: 250 Abnormal (09/19/22 12:12:00) UA Bili: Negative. (09/19/22 12:12:00) UA Ketones: Negative. (09/19/22 12:12:00) UA Blood: Negative. (09/19/22 12:12:00) UA pH: 5.0 (09/19/22 12:12:00) UA Protein: Negative.1 (09/19/22 12:12:00) UA Urobilinogen: 0.2 (09/19/22 12:12:00) UA Nitrite: Negative. (09/19/22 12:12:00) UA Leuk Est: Negative. (09/19/22 12:12:00) Glucose Level: 348 mg/dL High (09/19/22 16:05:00) Sodium Level: 134 mmol/L Low (09/19/22 16:05:00) Potassium Level: 4.1 mmol/L (09/19/22 16:05:00) Chloride: 99 mmol/L (09/19/22 16:05:00) CO2: 25 mmol/L (09/19/22 16:05:00) Electrolyte Balance: 10 mEq/L (09/19/22 16:05:00) BUN: 57 mg/dL High (09/19/22 16:05:00) Creatinine Lvl (s): 1.85 mg/dL High (09/19/22 16:05:00) BUN/Creatinine Ratio: 31 ratio High (09/19/22 16:05:00) Calcium Lvl: 9.2 mg/dL (09/19/22 16:05:00) GFR Non-: 27 ml/min/1.73sqm (09/19/22 16:05:00) GFR : 33 ml/min/1.73sqm (09/19/22 16:05:00) Lactic Acid Lvl: 2.1 mmol/L High (09/19/22 17:39:00) Troponin I High Sensitivity: 8.5 ng/L (09/19/22 12:12:00) Blood Glucose, Capillary: 324 mg/dL High (09/19/22 23:46:00) Blood Glucose Testing Reason: Routine (09/19/22 23:46:00) Assessment/Plan Falls. Patient with self-reported falls at home. Generalized debility. Lives at home alone with hercat. Suspect her weakness is due to chronic uncontrolled medical illnesses including morbid obesity, untreated MARGARETTE, diabetes. LINDA. Creatinine currently 1.89 from close to 1.1 in June. Discontinue home diclofenac. Pause home valsartan. Avoid further episodes of hypotension. COPD. Not currently in exacerbation. We will continue patient's home DuoNebs. HTN. Patient was hypotensive during her course at [place] emergency department. DM 2. She was hyperglycemic in [place] emergency department and given 10 units insulin. She remains in the 300s here. Suspect that she has chronic poor glycemic control. Considering her LINDA will pause her Sitagliptin. Her home insulin schedule does not make sense to me. Attempted to clarify with her but she did not remember the names of insulin or exact amounts. We will continue home Lantus with sliding scale insulin and adjust as appropriate. A1c Bilateral lower extremity edema. 1+ to the midshin. Considering hypotension will pause Lasix. I do not see any record of echo and cannot find a diagnosis leading to this edema. Considering her respiratory problems, right-sided cardiac dysfunction may be a consideration. On an outpatient basis she may require an echo. CXR was poor quality, but demonstrated no pulmonary edema. She was placed on oxygen, though has no documented hypoxia. MARGARETTE. She complains of excessive somnolence and feeling unrefreshed after sleep. Counseled that thisis likely related to not having CPAP. CPAP HLD. Continue atorvastatin. Oral thrush. She has dry mouth with white plaque. This is noted to be an ongoing issue for her. Shestates she has taken no medications because she feels she is already on too many. We will trial nystatin. Nystatin. Incontinence. Continue oxybutynin. GERD. Continue PPI. Gout. Currently no signs or symptoms of flare. Continue colchicine. Medications were not verified by pharmacy at the time of this dictation. Reconciliation to be completed once medications are verified; will address additional chronic medical problems at that time. DVT prophylaxis: SCDs Note dictated using voice recognition software and may contain typographical errors. 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 COPD Depression Diabetes mellitus type 2 GERD (gastroesophageal reflux disease) Hypercholesterolemia Hypertension IBS (irritable bowel syndrome) Incontinence MARGARETTE (obstructive sleep apnea) Osteoarthritis Stuttering Historical Breast cancer Procedure/Surgical History Cholecystectomy: 2013 Lumpectomy of breast: 2012 Eye surgery: 1969 Suspension of bladder Cystoscopy Colonoscopy Medications Home Medications (22) Active albuterol MDI (90 mcg/inh) CFC free inhalation aerosol 2 puff(s), PRN, Inhalation, q4h atenolol 50 mg oral tablet 50 mg = 1 tab(s), Oral, qAM atorvastatin 40 mg oral tablet 40 mg = 1 tab(s), Oral, qHS calcium-vitamin D 600 mg-5 mcg (200 intl units) oral capsule 1 cap(s), Oral, with lunch colchicine 0.6 mg oral capsule 0.6 mg = 1 cap(s), PRN, Oral, qDay Colestid 1 g oral tablet 2 gram(s) = 2 tab(s), Oral, BID diclofenac sodium 75 mg oral delayed release tablet 75 mg = 1 tab(s), Oral, BID doxepin 100 mg oral capsule 100 mg = 1 cap(s), Oral, qHS DuoNeb 3 mL, PRN, Inhalation, q2hRT Fish Oil 1000 mg oral capsule 2,000 mg = 2 cap(s), Oral, BID furosemide 20 mg oral tablet 20 mg = 1 tab(s), Oral, BID HumaLOG 100 units/mL injectable solution VIAL See Instructions HumaLOG 100 units/mL subcutaneous solution 12 unit(s), Subcutaneous, TIDAC HumuLIN 70/30 See Instructions Januvia 50 mg oral tablet 50 mg = 1 tab(s), Oral, qDay Lantus 100 units/mL10 ml vial solution 52 unit(s), Subcutaneous, qHS loratadine 10 mg, Oral, qDay omeprazole 40 mg oral delayed release capsule 40 mg = 1 cap(s), Oral, qAM oxybutynin 10 mg/24 hr oral tablet, extended release 10 mg = 1 tab(s), Oral, qDay pregabalin 50 mg, Oral, TID Therems M oral tablet 1 tab(s), Oral, with lunch valsartan 80 mg oral tablet 80 mg = 1 tab(s), Oral, Daily Allergies Bee Stings (Difficulty breathing) morphine (Anaphylaxis) Eggs (Nausea and vomiting) Brintellix HYDROcodone aspirin calcium carbonate (Unknown) codeine (Amnesia, Altered mental status) flu vaccines (Unknown) gabapentin (Abnormal muscle function) influenza virus vaccine, inactivated penicillin propoxyphene Social History Smoking Status - 11/05/2017 Never smoker Alcohol - No Risk, 02/19/2017 Use: Current. Frequency: 1-2 times per year., 09/14/2018 Home/Environment Domestic Concerns: None. Living situation: Home with assistance. Lives In: Single level home. Current Home Treatments Blood glucose monitoring, BIPAP. 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 Marital Status: Unmarried., 02/02/2021 Nutrition/Health Type of diet: Regular. Appetite Good. Eating Difficulties No teeth, DENTURES UPPERS. Caffeine intake amount: 1 CAN SODA/DAY., 02/02/2021 Substance Abuse - No Risk, 02/19/2017 Use: Never., 09/14/2018 Tobacco - High Risk, 02/24/2020 Tobacco Use: Former smoker, quit more than 30 days ago., 09/14/2018 Family History Breast cancer: Mother. Diabetes mellitus type 2: Mother. Heart attack: Father. Heart disease: Father. Skin cancer: Sister. Sister: History is negative Immunizations hepatitis B adult vaccine: 0 unknown unit (01/23/97) hepatitis B adult vaccine: 0 unknown unit (06/27/96) hepatitis B adult vaccine: 0 unknown unit (05/09/96) pneumococcal 13-valent conjugate vaccine: 0.5 unknown unit (07/27/21) SARS-CoV-2 (COVID-19) mRNA-1273 vaccine: 0.5 unknown unit (11/15/20) SARS-CoV-2 (COVID-19) mRNA-1273 vaccine: 0.5 unknown unit (10/17/20) tetanus/diphth/pertuss (Tdap) adult/adol: 0.5 unknown unit (02/02/22) tetanus/diphth/pertuss (Tdap) adult/adol: 0.5 mL (06/19/20) zoster vaccine, inactivated: 1 unknown unit (02/02/22) Code Status Code Status - Ordered -- 06/05/23 0:41:00 EDT, Full Code, Constant Order Digitally Signed by HIRAM WANG MD on 09/20/2022 01:02 AM [id number] Note ORIGINAL EXAMINATION: CT OF THE HEAD WITHOUT CONTRAST 09/19/2022 8:58 pm TECHNIQUE: CT of the head was performed without the administration of intravenous contrast. Automated exposure control, iterative reconstruction, and/or weight based adjustment of the mA/kV was utilized to reduce the radiation dose to as low as reasonably achievable. COMPARISON: 12/26/2020, earlier HISTORY: ORDERING SYSTEM PROVIDED HISTORY: Reason for Exam: INJURY Fell out of bed, unable to answer history questions, uncooperative FINDINGS: Motion artifacts obscure some details. BRAIN/VENTRICLES: No evidence of acute intracranial hemorrhage, mass effect, midline shift, hydrocephalus, or acute large territorial infarction is identified. Stable ventricles. Scattered white matter hypodensities are nonspecific but statistically most consistent with mild chronic microvascular angiopathy. Carotid siphon and vertebral artery calcifications are present. ORBITS: The visualized portion of the orbits demonstrate no acute abnormality. Chronic right posterior globe staphyloma. SINUSES: The visualized paranasal sinuses and mastoid air cells are essentially clear. SOFT TISSUES/SKULL: No acute abnormality of the visualized skull or soft tissues. Edentulous. Mild hyperostosis frontalis interna. IMPRESSION: Motion artifacts obscure some details. In spite of this, no acute intracranial hemorrhage identified. RECOMMENDATIONS: Unavailable Interpreted by: Andres Lawrence DO Preliminary Report By: Andres Lawrence DO Electronically signed By Andres Lawrence DO Dictated Date: 09/19/2022 9:06:10 PM Prelim Date: 09/19/2022 9:08:48 PM Sign Date: 09/19/2022 9:08:48 PM Ordering Provider: XANDER GRIFFIN [facility]06-04-2023 Note ORIGINAL EXAMINATION: CT OF THE HEAD WITHOUT CONTRAST 09/19/2022 8:58 pm TECHNIQUE: CT of the head was performed without the administration of intravenous contrast. Automated exposure control, iterative reconstruction, and/or weight based adjustment of the mA/kV was utilized to reduce the radiation dose to as low as reasonably achievable. COMPARISON: 12/26/2020, earlier HISTORY: ORDERING SYSTEM PROVIDED HISTORY: Reason for Exam: INJURY Fell out of bed, unable to answer history questions, uncooperative FINDINGS: Motion artifacts obscure some details. BRAIN/VENTRICLES: No evidence of acute intracranial hemorrhage, mass effect, midline shift, hydrocephalus, or acute large territorial infarction is identified. Stable ventricles. Scattered white matter hypodensities are nonspecific but statistically most consistent with mild chronic microvascular angiopathy. Carotid siphon and vertebral artery calcifications are present. ORBITS: The visualized portion of the orbits demonstrate no acute abnormality. Chronic right posterior globe staphyloma. SINUSES: The visualized paranasal sinuses and mastoid air cells are essentially clear. SOFT TISSUES/SKULL: No acute abnormality of the visualized skull or soft tissues. Edentulous. Mild hyperostosis frontalis interna. IMPRESSION: Motion artifacts obscure some details. In spite of this, no acute intracranial hemorrhage identified. RECOMMENDATIONS: Unavailable Interpreted by: Andres Lawrence DO Preliminary Report By: Andres Lawrence DO Electronically signed By Andres Lawrence DO Dictated Date: 09/19/2022 9:06:10 PM Prelim Date: 09/19/2022 9:08:48 PM Sign Date: 09/19/2022 9:08:48 PM [facility] + Plan note Diagnostic Tests Pending * COVID-19 Only (AO) 09/19/22 * Urine Culture 09/19/22 * Blood Culture (bacterial) 09/19/22 * Blood Culture (bacterial) 09/19/22 [facility] 06-04-2023 Hospital Discharge instructions Follow Up Care 09/19/2022 11:49:38 With:AGNES HENRANDEZ DO Address: [address] [place] [address]- When:2-4 days [facility] 06-04-2023 Note ORIGINAL EXAMINATION: ONE XRAY VIEW OF THE CHEST09/19/2022 12:52 pm COMPARISON: 08/31/2022 HISTORY: ORDERING SYSTEM PROVIDED HISTORY: Reason for Exam: cough FINDINGS: The exam is rotated. The heart is borderline. Vascular structures appear within normal limits. Suspect left basilar atelectasis or other airspace disease. No pleural fluid or pneumothorax. No aggressive osseous lesions identified. IMPRESSION: Compromised and rotated exam. Suspect left basilar atelectasis or other airspace disease. Interpreted by: Jacoby Melchor MD Preliminary Report By: Jacoby Melchor MD Electronically signed By Jacoby Melchor MD Dictated Date: 09/19/2022 12:54:44 PM Prelim Date: 09/19/2022 12:56:01 PM Sign Date: 09/19/2022 12:56:01 PM Ordering Provider: [facility]06-04[facility]23 Note ORIGINAL EXAMINATION: ONE XRAY VIEW OF THE CHEST09/19/2022 12:52 pm COMPARISON: 08/31/2022 HISTORY: ORDERING SYSTEM PROVIDED HISTORY: Reason for Exam: cough FINDINGS: The exam is rotated. The heart is borderline. Vascular structures appear within normal limits. Suspect left basilar atelectasis or other airspace disease. No pleural fluid or pneumothorax. No aggressive osseous lesions identified. IMPRESSION: Compromised and rotated exam. Suspect left basilar atelectasis or other airspace disease. Interpreted by: Jacoby Melchor MD Preliminary Report By: Jacoby Melchor MD Electronically signed By Jacoby Melchor MD Dictated Date: 09/19/2022 12:54:44 PM Prelim Date: 09/19/2022 12:56:01 PM Sign Date: 09/19/2022 12:56:01 PM Ordering Provider: [facility]03-24-2023 Nurse Discharge summary Discharged to [facility]. Escorted to the exit via w/c per myself. Left at 1325. [facility]03-24-2023 Note Discharge Instructions Thank you for allowing [facility] to assist you with your healthcare needs. The following is importantdischarge information regarding your hospital visit. Your Care Team AGNES HERNANDEZ LISA SENIOR MATERIALS ANALYST-SONOGRAPHY TECHNOLOGIST Your Diagnosis Asthenia Fever Lactic acidosis Diabetes mellitus type 2 COPD Hypertension Hypomagnesemia Osteoarthritis MARGARETTE (obstructive sleep apnea) CKD (chronic kidney disease), stage III Hip pain-swelling Neuropathy Weakness or fatigue What to do next Follow Up Appointments Follow Up with AGNES HERNANDEZ DO When Within 2-4 days Where: [address] [place] [address] [place] [address]- The Following Activity and Diet Have Been Ordered for You Transfer of Care Activity - Ordered -- As instructed by therapy, 07/09/22 10:50:00 EDT Transfer of Care Diet - Ordered -- Type of Diet: Regular Diet, 07/09/22 10:50:00 EDT The Following Equipment Has Been Ordered for You No qualifying data available. The Following Treatments Have Been Ordered for You Discharge Labs No qualifying data available. Discharge Radiology No qualifying data available. Other Therapies Transfer of Care OT - Ordered -- Reason for therapy: weakness, 07/09/22 10:50:00 EDT Transfer of Care PT - Ordered -- Reason for therapy: Weakness, 07/09/22 10:50:00 EDT Post Acute Orders Transfer of Care Admission Level of Care - Ordered -- Level of Care SNF, 07/09/22 10:50:24 EDT Transfer of Care Code Status - Ordered -- Full Code, Constant Order Transfer of Care Orders Electronically Signed By - Ordered -- 07/09/22 10:50:00 EDTDAKOTA LISA M APRN-OTTO Transfer of Care Prognosis - Ordered -- Fair, Patient Aware: Yes Transfer of Care Rehab Potential - Ordered -- Rehab potential fair, 07/09/22 10:50:23 EDT Someone Will Contact You Regarding These Home Health Referrals No home referrals have been ordered for you. No one will call you. Allergies Bee Stings (Difficulty breathing) morphine (Anaphylaxis) Eggs (Nausea and vomiting) Brintellix HYDROcodone aspirin calcium carbonate (Unknown) codeine (Amnesia, Altered mental status) flu vaccines (Unknown) gabapentin (Abnormal muscle function) influenza virus vaccine, inactivated penicillin propoxyphene Medications Please ask your primary doctor or pharmacist before taking any other medication not listed, including over the counter drugs, herbal medications, vitamins and or supplements as they may interact withyour home medications. What How Much When Why Instructions Last Dose New albuterol-ipratropium (DuoNeb) 3 Milliliter by inhalation Every 2 Hours as needed for Shortness of breath (SOB) None New colestipol (Colestid 1 g oral tablet) 2 tab(s) by mouth Two (2) times a day 07/09 1PM New insulin glargine (Lantus 100 units/ mL10 ml vial solution) 52 unit(s) Subcutaneous Daily at bedtime 07/08 10PM New insulin lispro (HumaLOG) (HumaLOG 100 units/ mL subcutaneous solution) 12 unit(s) Subcutaneous Three (3) times a day before meals 07/09 12PM New magnesium oxide (magnesium oxide 400 mg oral tablet) 1 tab(s) by mouth Two (2) times a day 07/09 12PM New pregabalin (Lyrica 50 mg oral capsule) 1 cap by mouth Three (3) times a day Neuropathy Printed Prescription None New valsartan (valsartan 80 mg oral tablet) 1 tab(s) by mouth Every day 07/09 9AM Changed furosemide (furosemide 20 mg oral tablet) 1 tab(s) by mouth Once a day 07/09 9A Changed lidocaine topical (lidocaine 4% patch) 2 film Transdermal Every 24 hours 07/04 Changed metFORMIN (metFORMIN 1000 mg oral tablet (IR)) 1 tab(s) by mouth Two (2) times a day 07/09 9AM Unchanged albuterol (albuterol MDI (90 mcg/ inh) CFC free inhalation aerosol) 2 puff(s) by inhalation Every 4 hours as needed for as needed for wheezing None Unchanged atenolol (atenolol 50 mg oral tablet) 1 tab(s) by mouth Once a day (in the morning) 07/09 9AM Unchanged atorvastatin (atorvastatin 40 mg oral tablet) 1 tab(s) by mouth Daily at bedtime 07/08 9PM Unchanged benzonatate (benzonatate 200 mg oral capsule) 1 cap by mouth Three (3) times a day as needed for as needed for cough None Unchanged bimatoprost ophthalmic (Lumigan 0.01% ophthalmic solution) 1 Drops Both eyes Daily at bedtime 07/08 9PM Unchanged calcium-vitamin D (calcium-vitamin D 600 mg-5 mcg (200 intl units) oral capsule) 1 cap by mouth With lunch None Unchanged desvenlafaxine (desvenlafaxine 100 mg oral tablet, extended release) 1 tab(s) by mouth Once a day (in the morning) 07/09 9AM Unchanged diclofenac (diclofenac sodium 75 mg oral delayed release tablet) 1 tab(s) by mouth Two (2) times a day 07/09 9AM Unchanged DME (Pen needles) See instructions Diabetes mellitus type 2 #100 Re: BID dosing None Unchanged doxepin (doxepin 100 mg oral capsule) 1 cap by mouth Daily at bedtime 07/08 9PM Unchanged lamoTRIgine (LaMICtal 150 mg oral tablet) 1 tab(s) by mouth Once a day 07/09 9AM Unchanged multivitamin with minerals (Therems M oral tablet) 1 tab(s) by mouth With lunch None Unchanged omega-3 polyunsaturated fatty acids (Fish Oil 1000 mg oral capsule) 2 cap by mouth Two (2) times a day 07/09 9AM Unchanged omeprazole (omeprazole 40 mg oral delayed release capsule) 1 cap by mouth Once a day (in the morning) 09/08 5AM What How Much When Why Comments Stop Taking acetaminophen (Tylenol 325 mg oral capsule) 650 Milligram by mouth Every 4 hours as needed for Pain, scale 1-3 Stop Taking hydrochlorothiazide-valsartan (hydrochlorothiazide-valsartan 12.5 mg-80 mg oral tablet) 1 tab(s) by mouth Once a day Stop Taking insulin isophane (NPH) - insulin regular (HumuLIN 70/ 30 KwikPen 70 units-30 units/ mL subcutaneous suspension) 35 unit(s) Subcutaneous Two (2) times daily before meals Diabetes mellitus type 2 Do not take if you do not eat Stop Taking loratadine (loratadine 10 mg oral tablet) 1 tab(s) by mouth Once a day Stop Taking oxybutynin (oxybutynin 10 mg/ 24 hr oral tablet, extended release) 1 tab(s) by mouth Once a day Stop Taking oxybutynin (oxybutynin 10 mg/ 24 hr oral tablet, extended release) 1 tab(s) by mouth Once a day (in the morning) Stop Taking SITagliptin (Januvia 50 mg oral tablet) 1 tab(s) by mouth Once a day (in the morning) Please take this list to your next doctor s visit. Bring all medications you take, including over the counter medications, herbals and other supplements with you to your doctor s visit. Patients and families are reminded to discard old lists and to update any records with all medication providers or retail pharmacies. Education Materials Weakness Weakness is a lack of strength. You may feel weak all over your body (generalized), or you may feelweak in one specific part of your body (focal). Common causes of weakness include: Infection and immune system disorders. Physical exhaustion. Internal bleeding or other blood loss that results in a lack of red blood cells (anemia). Dehydration. An imbalance in mineral (electrolyte) levels, such as potassium. Heart disease, circulation problems, or stroke. Other causes include: Some medicines or cancer treatment. Stress, anxiety, or depression. Nervous system disorders. Thyroid disorders. Loss of muscle strength because of age or inactivity. Poor sleep quality or sleep disorders. The cause of your weakness may not be known. Some causes of weakness can be serious, so it is important to see your health care provider. Follow these instructions at home: Activity Rest as needed. Try to get enough sleep. Most adults need 7 8 hours of quality sleep each night. Talk to your health care provider about how much sleep you need each night. Do exercises, such as arm curls and leg raises, for 30 minutes at least 2 days a week or as told byyour health care provider. This helps build muscle strength. Consider working with a physical therapist or labor trainer who can develop an exercise plan to help you gain muscle strength. General instructions Take [id number] and prescription medicines only as told by your health care provider. Eat a healthy, well-balanced diet. This includes: ? Proteins to build muscles, such as lean meats and fish. ? Fresh fruits and vegetables. ? Carbohydrates to boost energy, such as whole grains. Drink enough fluid to keep your urine pale yellow. Keep all follow-up visits as told by your health care provider. This is important. Contact a health care provider if your weakness: Does not improve or gets worse. Affects your ability to think clearly. Affects your ability to do your normal daily activities. Get help right away if you: Develop sudden weakness, especially on one side of your face or body. Have chest pain. Have trouble breathing or shortness of breath. Have problems with your vision. Have trouble talking or swallowing. Have trouble standing or walking. Are light-headed or lose consciousness. Summary Weakness is a lack of strength. You may feel weak all over your body or just in one specific part of your body. Weakness can be caused by a variety of things. In some cases, the cause may be unknown. Rest as needed, and try to get enough sleep. Most adults need 7 8 hours of quality sleep each night. Eat a healthy, well-balanced diet. This information is not intended to replace advice given to you by your health care provider. Make sure you discuss any questions you have with your health care provider. Document Released: 04/04/2006 Document Revised: 11/08/2018 Document Reviewed: 11/08/2018 [employer] Patient Education 2020 [employer] Dehydration (Adult) Dehydration occurs when your body loses too much fluid. This may be the result of vomiting a lot orfrom diarrhea, sweating a lot, or a high fever. It may also happen if you don t drink enough fluid when you re sick. Misuse of diuretics (water pills) can also be a cause. Symptoms include thirst and feeling dizzy, weak, fatigued, or very drowsy. The diet described belowis usually enough to treat most cases. Sometimes you may need medicine. Home care Follow these guidelines for home care: Drink at least 12 8-ounce glasses of fluid every day to overcome the dehydration. Fluid may includewater; orange juice; lemonade; apple, grape, and cranberry juice; clear fruit drinks; electrolyte replacement and sports drinks; and teas and coffee without caffeine. If you have been diagnosed with a kidney disease, ask your doctor how much and what types of fluids you should drink to prevent dehydration. If you have kidney disease, drinking too much fluid can cause it build up in the your body and be dangerous to your health. If you have fever, muscle aching, or headache from a viral syndrome, you may use acetaminophen or ibuprofen, unless another medicine was prescribed for this. If you have chronic liver or kidney disease or ever had a stomach ulcer or GI bleeding, talk with your doctor before using these medicines. Don't take aspirin if you are younger than 18 and are ill with a fever. Aspirin raises the chance forsevere liver injury. Follow-up care Follow up with your health care provider if you don't get better in the next 24 to 48 hours. When to seek medical advice Call your health care provider right away if any of these occur: Continued vomiting (can t keep liquids down) Frequent diarrhea (more than 5 times a day); blood (red or black color) or mucus in diarrhea Blood in vomit or stool Swollen abdomen or increasing abdominal pain Weakness, dizziness, or fainting Unusually drowsy or confused Reduced urine output or extreme thirst Fever of 100.4 F (38 C) oral or higher that does not get better with fever medication [id number] [employer]. [address] [place] [address], [place] [address]. All rights reserved. This information is not intended as a substitute for professional medical care. Always follow yourhealthcare professional's instructions. Hip Contusion A contusion is another word for a bruise. It happens when small blood vessels break open and leak blood into the nearby area. A hip contusion can result from a bump, hit, or fall. Symptoms of a contusion often include changes in skin color (bruising), swelling, and pain. It may take several hours for a deep bruise to show up. If the injury is severe, you may need an X-ray to check for broken bones. Swelling should decrease in a few days. Bruising and pain may take several weeks to go away. Home care Unless another medicine was prescribed, you may take acetaminophen, ibuprofen, or naproxen to help relieve pain and swelling. If needed, stronger pain medicines may be prescribed. Take all medicines as directed. Ice the bruised area to help reduce pain and swelling. Wrap a cold source (ice pack or ice cubes fede plastic bag) in a thin towel. Apply the cold source to the bruised area for 20 minutes every 1 to2 hours the first day. Continue this 3 to 4 times a day until the pain and swelling goes away. If walking causes pain, use crutches or a walker until you can walk without pain. These items can be rented at most pharmacies and orthopedic supply stores. If your injury is keeping you from moving around or caring for yourself properly, you may qualify for services such as home healthcare. Check with your doctor and insurance company to see if this type of care is covered. Follow-up Follow up with your healthcare provider as advised. When to seek medical advice Call your healthcare provider right away if any of these occur: Increased pain, bruising, or swelling near the injured area Decreased ability to bear weight on the injured side Pain or swelling develops below the knee Chest pain or shortness of breath [id number] [employer]. [address] [place] [address], [place] [address]. All rights reserved. This information is not intended as a substitute for professional medical care. Always follow yourhealthcare professional's instructions. Additional Information VACCINATE! IT SAVES LIVES! Members of the community who have not yet received the COVID-19 vaccine and would like to receive it can visit one of [facility] vaccine clinics. There are many vaccine clinic locations within the State. For locations and available times, please visit https://gettheshot.coronavirus.[place].gov/. It is important to note that some COVID mobile vaccine clinics are held outdoors and may be canceled in rainy or stormy conditions. To learn more about pediatric vaccinations (ages 5-11), we invite you to visit the [facility] webpage. [email or web address].[facility].org/pages/5907-Rvkdu-Zacdlulbswz-Guyzwshjpa-[email or web address] stions.htmlTo learn more about the COVID-19 vaccine, we invite you to visit the CDC website for a list of frequently asked questions. https://www.cdc.gov/coronavirus/2019-ncov/vaccines/faq.html [facility] Patient Portal Access Instructions: Stay connected with your healthcare team and access your personal medical information anytime with the [facility] Patient Portal.If you would like a full copy of your medical records, please contact the [facility] Medical Records Department, Tuesday through Tuesday between 8a.m. and 4:30p.m. Please follow the directions below to access the portal: 1.Access the email account you provided upon registration to the hospital.2.Look for an invitation email from [facility].3.Open the email and access the invitation link: Accept Invitation to [facility]4.Fill in the required rodriges to create your account. Sign into [email or web address] with your username and password that you created in the above steps to stay up to date. You can then view a summary of results, a summary of your visits, and the ability to download your summaries to your computer or send the information securely to a physician. Remember that your healthcare information is confidential, so carefully consider who you will allow to register on the [facility] Patient Portal for access to your information. You can also access the [facility] Patient Portal on the [employer] trudy. Simply click on Health Records under [employer] and then click on the [employer] logo. HOW TO SAFELY DISPOSE OF PRESCRIPTION MEDICATIONS Please use one of the following methods to safely dispose of your unused medications. 1.Use a drug disposal kit: the drug disposal pouch allows you to safely discard your old and unuseddrugs. Ask your nurse to give you one when you are discharged.2.Visit a local take-back location: Many local pharmacies and police departments have programs that collect old and unwanted prescriptiondrugs. Call your local pharmacy or go to [email or web address] to find one close to you.3.Make use of household items: Use cat litter or old coffee grounds to dispose medications if other options arenot available. Mix your drugs with these household products, seal them in an airtight container andthrow it into the garbage. Call [facility]: [phone] to be sure your drugs can be disposed of in this way. Some medicines may require a different approach.4.Never flush your medications down the toilet. IF YOU HAVE BEEN PRESCRIBED AN OPIOID FOR PAIN If you have been prescribed an opioid (such as hydrocodone, oxycodone or morphine), it is critical to understand the possible side effects and risks of opioid pain medications. Even when taken as directed, opioids can have several side effects including: Tolerance, meaning you might need to take more of a medication for the same pain relief. Nausea, vomiting and/or constipation. Sleepiness, dizziness, dry mouth, confusion, depression or itching. Physical dependence, meaning you have withdrawal symptoms when a medication is stopped, can develop within a few days. KNOW YOUR RESPONSIBILITIES It is important to know exactly how much and how often to take the opioid pain medications you are prescribed. Never take opioids in higher amounts or more often than prescribed. Do not combine opioids with alcohol or other drugs that cause drowsiness, such as benzodiazepines, also known as benzos, including diazepam and alprazolam, muscle relaxants or sleep aids. Never sell or share prescription opioids. This is illegal. Store opioids in a secure place and out of reach of others (including children, family, friends and visitors). The last page of this document has been signed and retained as a CHART COPY. Signatures Patient Education Materials Weakness DEHYDRATION (6y-Adult) Hip Contusion Medication Leaflets My discharge plan and instructions have been reviewed and explained to me and IJENNIFER PAMELA A understand my current condition and have read and understand these discharge instructions. I have received a written copy of the plan/instructions. If I have questions, I am aware that I should contact my doctor. Patient/Vault Person Signature: Date/Time: Relationship to Patient: Witness Name/Signature: Date/Time: [facility]03-24-2023 Hospital Discharge instructions Patient Education 07/09/2022 08:31:07 Weakness Weakness Weakness is a lack of strength. You may feel weak all over your body (generalized), or you may feelweak in one specific part of your body (focal). Common causes of weakness include: Infection and immune system disorders. Physical exhaustion. Internal bleeding or other blood loss that results in a lack of red blood cells (anemia). Dehydration. An imbalance in mineral (electrolyte) levels, such as potassium. Heart disease, circulation problems, or stroke. Other causes include: Some medicines or cancer treatment. Stress, anxiety, or depression. Nervous system disorders. Thyroid disorders. Loss of muscle strength because of age or inactivity. Poor sleep quality or sleep disorders. The cause of your weakness may not be known. Some causes of weakness can be serious, so it is important to see your health care provider. Follow these instructions at home: Activity Rest as needed. Try to get enough sleep. Most adults need 7 8 hours of quality sleep each night. Talk to your health care provider about how much sleep you need each night. Do exercises, such as arm curls and leg raises, for 30 minutes at least 2 days a week or as told byyour health care provider. This helps build muscle strength. Consider working with a physical therapist or labor trainer who can develop an exercise plan to help you gain muscle strength. General instructions Take iifz-tce-egngelh and prescription medicines only as told by your health care provider. Eat a healthy, well-balanced diet. This includes: ?Proteins to build muscles, such as lean meats and fish. ?Fresh fruits and vegetables. ?Carbohydrates to boost energy, such as whole grains. Drink enough fluid to keep your urine pale yellow. Keep all follow-up visits as told by your health care provider. This is important. Contact a health care provider if your weakness: Does not improve or gets worse. Affects your ability to think clearly. Affects your ability to do your normal daily activities. Get help right away if you: Develop sudden weakness, especially on one side of your face or body. Have chest pain. Have trouble breathing or shortness of breath. Have problems with your vision. Have trouble talking or swallowing. Have trouble standing or walking. Are light-headed or lose consciousness. Summary Weakness is a lack of strength. You may feel weak all over your body or just in one specific part of your body. Weakness can be caused by a variety of things. In some cases, the cause may be unknown. Rest as needed, and try to get enough sleep. Most adults need 7 8 hours of quality sleep each night. Eat a healthy, well-balanced diet. This information is not intended to replace advice given to you by your health care provider. Make sure you discuss any questions you have with your health care provider. Document Released: 04/04/2006 Document Revised: 11/08/2018 Document Reviewed: 11/08/2018 [employer] Patient Education 2020 [employer]. 07/01/2022 17:28:17 DEHYDRATION (6y-Adult) Dehydration (Adult) Dehydration occurs when your body loses too much fluid. This may be the result of vomiting a lot orfrom diarrhea, sweating a lot, or a high fever. It may also happen if you don t drink enough fluid when you re sick. Misuse of diuretics (water pills) can also be a cause. Symptoms include thirst and feeling dizzy, weak, fatigued, or very drowsy. The diet described belowis usually enough to treat most cases. Sometimes you may need medicine. Home care Follow these guidelines for home care: Drink at least 12 8-ounce glasses of fluid every day to overcome the dehydration. Fluid may includewater; orange juice; lemonade; apple, grape, and cranberry juice; clear fruit drinks; electrolyte replacement and sports drinks; and teas and coffee without caffeine. If you have been diagnosed with a kidney disease, ask your doctor how much and what types of fluids you should drink to prevent dehydration. If you have kidney disease, drinking too much fluid can cause it build up in the your body and be dangerous to your health. If you have fever, muscle aching, or headache from a viral syndrome, you may use acetaminophen or ibuprofen, unless another medicine was prescribed for this. If you have chronic liver or kidney disease or ever had a stomach ulcer or GI bleeding, talk with your doctor before using these medicines. Don't take aspirin if you are younger than 18 and are ill with a fever. Aspirin raises the chance forsevere liver injury. Follow-up care Follow up with your health care provider if you don't get better in the next 24 to 48 hours. When to seek medical advice Call your health care provider right away if any of these occur: Continued vomiting (can t keep liquids down) Frequent diarrhea (more than 5 times a day); blood (red or black color) or mucus in diarrhea Blood in vomit or stool Swollen abdomen or increasing abdominal pain Weakness, dizziness, or fainting Unusually drowsy or confused Reduced urine output or extreme thirst Fever of 100.4 F (38 C) oral or higher that does not get better with fever medication [id number] [employer]. [address] [place] [address]. All rights reserved. This information is not intended as a substitute for professional medical care. Always follow yourhealthcare professional's instructions. 07/01/2022 17:28:15 Hip Contusion Hip Contusion A contusion is another word for a bruise. It happens when small blood vessels break open and leak blood into the nearby area. A hip contusion can result from a bump, hit, or fall. Symptoms of a contusion often include changes in skin color (bruising), swelling, and pain. It may take several hours for a deep bruise to show up. If the injury is severe, you may need an X-ray to check for broken bones. Swelling should decrease in a few days. Bruising and pain may take several weeks to go away. Home care Unless another medicine was prescribed, you may take acetaminophen, ibuprofen, or naproxen to help relieve pain and swelling. If needed, stronger pain medicines may be prescribed. Take all medicines as directed. Ice the bruised area to help reduce pain and swelling. Wrap a cold source (ice pack or ice cubes fede plastic bag) in a thin towel. Apply the cold source to the bruised area for 20 minutes every 1 to2 hours the first day. Continue this 3 to 4 times a day until the pain and swelling goes away. If walking causes pain, use crutches or a walker until you can walk without pain. These items can be rented at most pharmacies and orthopedic supply stores. If your injury is keeping you from moving around or caring for yourself properly, you may qualify for services such as home healthcare. Check with your doctor and insurance company to see if this type of care is covered. Follow-up Follow up with your healthcare provider as advised. When to seek medical advice Call your healthcare provider right away if any of these occur: Increased pain, bruising, or swelling near the injured area Decreased ability to bear weight on the injured side Pain or swelling develops below the knee Chest pain or shortness of breath [id number] [employer]. [address] [place] [address]. All rights reserved. This information is not intended as a substitute for professional medical care. Always follow yourhealthcare professional's instructions. Follow Up Care 07/01/2022 09:30:16 With:AGNES HERNANDEZ DO Address: [address] [place] [phone]- When:2-4 days [facility] 03-24-2023 Discharge summary Date of Service 07/09/2022 Discharge Diagnosis 1. Asthenia (R53.1 - ICD-10-CM) 2. Fever (R50.9 - ICD-10-CM) 3. Lactic acidosis (E87.20 - ICD-10-CM) 4. Diabetes mellitus type 2 (E11.9 - ICD-10-CM) 5. COPD (J44.9 - ICD-10-CM) 6. Hypertension (I10 - ICD-10-CM) 7. Hypomagnesemia (E83.42 - ICD-10-CM) 8. Osteoarthritis (M19.90 - ICD-10-CM) 9. MARGARETTE (obstructive sleep apnea) (G47.33 - ICD-10-CM) CKD (chronic kidney disease), stage III (N18.30 - ICD-10-CM) Hip pain-swelling ([id number] - PNED) Neuropathy (G62.9 - ICD-10-CM) Weakness or fatigue ([id number] - PNED) Additional Orders: Other status: BMP,07/09/22 5:00:00 EDT, Next AM Draw (one day only), Blood, Once, Preferred Lab: [facility], Stop date 07/09/22 5:00:00 EDT(Complete) Ordered: Colestid 1 g oral tablet,Dose : 2 gram(s) = 2 tab(s), Oral, BID, 0 Refill(s) Discontinued: Lantus 100 units/mL10 ml vial solution,Dose : 44 unit(s) =, Subcutaneous, qHS, 0 Refill(s) Ordered: Lantus 100 units/mL10 ml vial solution,Dose : 52 unit(s) =, Subcutaneous, qHS, 0 Refill(s) Other status: Magnesium Level,07/09/22 5:01:00 EDT, Next AM Draw (one day only), Blood, Once, Preferred Lab: [facility], Stop date 07/09/22 5:01:00 EDT(Complete) Hospital Course 66-year-old female with past medical history significant for COPD, type 2 diabetes mellitus, GERD, hypertension, hyperlipidemia, IBS, breast cancer, lLung Cancer s/p left upper lobe lobectomy. Patient presented to [facility] emergency department on 07/01/2022 for right hip pain and multiple, repeated falls over the past 10 days. Patient has required EMS assistance for falls and to getout of her chairs. In the emergency department patient did have a fever of 38 C. She was hemodynamically stable and initially required O2 via nasal cannula at 4 L. She had no leukocytosis. White blood cell count was 8000. Urinalysis was negative for nitrates and leukocyte esterase. Glucose elevated at 285. Lactic acid 2.4. Troponin 11.6. X-ray chest showed emphysema and mild atelectasis. X-ray hip showed no acute fracture. Patient received 3 L of normal saline in the emergency department. Blood cultures obtained in the emergency department. Decision was made to admit for observation and therapy evaluation. Patient was evaluated by therapy with recommendations for SNF. Unsafe to be at home. She is requiring assistance with mobility. She has also had multiple falls in the past couple of weeks. Patient's metformin was originally on hold due to lactic acidosis. Blood sugars continue to be elevated so this was restarted on 07/04/2022. Home dose of furosemide was also reinitiated at 20 mg daily. She was taking Lasix 40 to 60 mg at home. She was advised to decrease dose to Lasix 20 mg daily. She had persistent hypomagnesemia and required multiple doses of magnesium sulfate. Patient has been polyuric likely due to combination of being on multiple diuretics as well as uncontrolled type 2 diabetes mellitus. Hemoglobin A1c 8.9%. Home dose of insulin was changed to Lantus 44 units nightly andHumalog 12 units 3 times daily AC in addition to sliding scale insulin 3 times daily AC until bloodsugars are more adequately controlled. She was educated extensively on the importance of control ofher diabetes in prevention of worsening kidney disease and worsening neuropathy. Also educated on the effects of uncontrolled diabetes systemically. Patient verbalized understanding. Home dose of metformin was also reinitiated. Patient will be discharged with magnesium oxide 400 mg p.o. twice daily. Recommend checking magnesium 2 to 3 weeks after discharge. Remainder of patient's chronic conditions were monitored and stable. Patient is medically optimizedfor discharge to SNF. PLAN: 1. Asthenia Acute, new onset *PT and OT consulted and following. *Depression screening completed and patient now requires evaluation by the state - done yesterday and cleared by [facility]. *Patient accepted by [facility] - awaiting on approval again from [facility]. 2. Fever Resolved *Urine culture showing multiple bacterial morphotypes suggesting contamination. *One blood culture growing gram-positive cocci - likely contamination. *Repeat blood cultures collected - one set again growing gram-positive cocci - likely contamination. *Patient has had no recurrent fevers or leukocytosis. 3. Lactic acidosis Resolved *Likely caused by metformin. *Resolved with IV fluids. 4. Diabetes mellitus type 2 Chronic *Blood sugar checks before meals and at bedtime. *Cover with sliding scale insulin. *Continue diabetic diet. *Continue Metformin at home dose. *Continue Lantus 52 units nightly and Humalog 12 units 3 times daily AC. *A1c 8.9%. 5. COPD Chronic, stable *Continue duonebs as needed for shortness of breath/wheezing. 6. Hypertension Chronic *Continue current home antihypertensives. *SBP goal of 140 or less. 7. Hypomagnesemia Acute, new onset, likely secondary to diuretic use *Continue magnesium oxide 400 mg PO daily. 8. Osteoarthritis Chronic *Continue lidocaine patches. 9. MARGARETTE (obstructive sleep apnea) Chronic *May use CPAP at bedtime. Patient seen and evaluated this morning while resting in bed. She states that she feels fine this morning. Patient advised that she has been cleared to go to [facility] today. We are awaitingreapproval by [place] to proceed with transfer. She denies any fever, chills, cough, shortness of breath, chest pain, abdominal pain, nausea or dysuria. All questions answered. manager support services will update patient when they get final approval and transfer time. This case was discussed with collaborating physician, Dr. Dell Branch. Allergies Bee Stings (Difficulty breathing) morphine (Anaphylaxis) Eggs (Nausea and vomiting) Brintellix HYDROcodone aspirin calcium carbonate (Unknown) codeine (Amnesia, Altered mental status) flu vaccines (Unknown) gabapentin (Abnormal muscle function) influenza virus vaccine, inactivated penicillin propoxyphene Consults No qualifying data available. Imaging Results and Diagnostics XR Chest 2 Views Result Date: July 01, 2022 Verified By: KERON BLACK MD CLINICAL STATEMENT: IMPRESSION: Emphysematous changes and mild atelectasis. XR Hip Minimum 2 Views Right Result Date: July 01, 2022 Verified By: KERON BLACK MD CLINICAL STATEMENT: IMPRESSION: No acute fracture. Physical Exam Vitals and Measurements T: 36.5 C (Oral) TMIN: 36.5 C (Oral) TMAX: 36.9 C (Oral) HR: 74(Monitored) RR: 20 BP: 173/70 SpO2: 100% Weight Dosing Weight: 143.6 kg (07/02/22) Dosing Weight: 147.2 kg (07/01/22) General: No acute distress. Patient is alert and appropriate. Skin: No rash. Skin is warm, dry and intact. HEENT: Head is normocephalic, atraumatic. Pupils are equal, round and reactive. Neck: Supple. No lymphadenopathy, thyromegaly. Lungs: Bilaterally clear but diminished without crepitation or wheeze. Unlabored. Heart: Heart is regular rhythm, S1, S2. No murmurs, gallops or rubs. Abdomen: Abdomen is soft, nontender. Bowels sounds present in all quadrants. Extremities: No clubbing, cyanosis, or edema. Peripheral pulses palpable. No calf tenderness. Neurological: Patient is awake and alert to person, place and time. Following simple commands, moving all extremities. Code Status Code Status - Ordered -- 07/01/22 18:04:00 EDT, Full Code, Constant Order Admission Date 07/02/2022 Discharge Date 07/09/2022 Patient Instructions Continue PT and OT at therapy's direction. Follow-up with PCP in the next 1-2 weeks. Medications New Prescription albuterol-ipratropium (DuoNeb)3 Milliliter by inhalation Every 2 Hours as needed Shortness of breath (SOB). colestipol (Colestid 1 g oral tablet)2 tab(s) by mouth two (2) times a day. insulin glargine (Lantus 100 units/mL10 ml vial solution)52 unit(s) Subcutaneous daily at bedtime. insulin lispro (HumaLOG) (HumaLOG 100 units/mL subcutaneous solution)12 unit(s) Subcutaneous three (3) times a day before meals. magnesium oxide (magnesium oxide 400 mg oral tablet)1 tab(s) by mouth two (2) times a day. pregabalin (Lyrica 50 mg oral capsule)1 cap by mouth three (3) times a day. Refills: 0. valsartan (valsartan 80 mg oral tablet)1 tab(s) by mouth every day. Refills: 0. Changed furosemide (furosemide 20 mg oral tablet)1 tab(s) by mouth once a day. lidocaine topical (lidocaine 4% patch)2 film Transdermal every 24 hours. metFORMIN (metFORMIN 1000 mg oral tablet (IR))1 tab(s) by mouth two (2) times a day. Unchanged albuterol (albuterol MDI (90 mcg/inh) CFC free inhalation aerosol)2 puff(s) by inhalation every 4 hours as needed as needed for wheezing. atenolol (atenolol 50 mg oral tablet)1 tab(s) by mouth once a day (in the morning). atorvastatin (atorvastatin 40 mg oral tablet)1 tab(s) by mouth daily at bedtime. benzonatate (benzonatate 200 mg oral capsule)1 cap by mouth three (3) times a day as needed as needed for cough. bimatoprost ophthalmic (Lumigan 0.01% ophthalmic solution)1 Drops Both eyes daily at bedtime. calcium-vitamin D (calcium-vitamin D 600 mg-5 mcg (200 intl units) oral capsule)1 cap by mouth withlunch. desvenlafaxine (desvenlafaxine 100 mg oral tablet, extended release)1 tab(s) by mouth once a day (in the morning). diclofenac (diclofenac sodium 75 mg oral delayed release tablet)1 tab(s) by mouth two (2) times a day. DME (Pen needles)#100 Re: BID dosing. Refills: 0. doxepin (doxepin 100 mg oral capsule)1 cap by mouth daily at bedtime. lamoTRIgine (LaMICtal 150 mg oral tablet)1 tab(s) by mouth once a day. multivitamin with minerals (Therems M oral tablet)1 tab(s) by mouth with lunch. omega-3 polyunsaturated fatty acids (Fish Oil 1000 mg oral capsule)2 cap by mouth two (2) times a day. omeprazole (omeprazole 40 mg oral delayed release capsule)1 cap by mouth once a day (in the morning). Discontinued acetaminophen (Tylenol 325 mg oral capsule)650 Milligram by mouth every 4 hours as needed Pain, scale 1-3. hydrochlorothiazide-valsartan (hydrochlorothiazide-valsartan 12.5 mg-80 mg oral tablet)1 tab(s) by mouth once a day. insulin isophane (NPH) - insulin regular (HumuLIN 70/30 KwikPen 70 units-30 units/mL subcutaneous suspension)35 unit(s) Subcutaneous two (2) times daily before meals. Do not take if you do not eat. Refills: 1. loratadine (loratadine 10 mg oral tablet)1 tab(s) by mouth once a day. oxybutynin (oxybutynin 10 mg/24 hr oral tablet, extended release)1 tab(s) by mouth once a day. oxybutynin (oxybutynin 10 mg/24 hr oral tablet, extended release)1 tab(s) by mouth once a day (in the morning). SITagliptin (Januvia 50 mg oral tablet)1 tab(s) by mouth once a day (in the morning). Follow Up Follow Up with MALYS, AGNES A DO When Within 2-4 days Where: [address] [facility] [place] [address] [place] [address]- Follow Up Appointments No qualifying data available. Follow Up Labs/Studies Discharge Labs No Follow-up Labs Discharge Studies No Follow-up Studies Discharge Diet No qualifying data available. Discharge Activity No qualifying data available. Condition on Discharge Stable Discharge Disposition [facility] Information Provided To Caregiver Time Spent 30 minutes Digitally Signed by AGNES DUNCAN on 07/09/2022 12:01 PM [facility]03-23-2023 Note Date of Service 07/08/2022 Chief Complaint Weakness Subjective Patient seen and evaluated while resting on side of bed this morning. Patient states that she continues to do well. She has been working on her IS diligently but she adds mostly out of boredom. Patient aware that she needs mental health assessment prior to being transferred to a SNF. We know thatsomeone has been assigned but have no idea when she will come to evaluate patient. Patient denies any fever, chills, cough, shortness of breath, chest pain, abdominal pain, nausea or dysuria. She denies any new problems or concerns today. All questions answered. Objective Vitals and Measurements T: 36.5 C (Oral) TMIN: 36.5 C (Oral) TMAX: 36.8 C (Oral) HR: 70(Apical) RR: 20 BP: 150/76 SpO2: 95% Intake and Output 7AM Yesterday to 7AM Today Intake and Output (Last 24 hours) Intake Oral Intake 450.00 Output Stool Count 2.00 Urine Count 2.00 Total Summary Total Intake 450.00 Total Output 0.00 Physical Exam General: No acute distress. Patient is alert and appropriate. Skin: No rash. Skin is warm, dry and intact. HEENT: Head is normocephalic, atraumatic. Pupils are equal, round and reactive. Neck: Supple. No lymphadenopathy, thyromegaly. Lungs: Bilaterally clear but diminished without crepitation or wheeze. Unlabored. Heart: Heart is regular rhythm, S1, S2. No murmurs, gallops or rubs. Abdomen: Abdomen is soft, nontender. Bowels sounds present in all quadrants. Extremities: No clubbing, cyanosis, or edema. Peripheral pulses palpable. No calf tenderness. Neurological: Patient is awake and alert to person, place and time. Following simple commands, moving all extremities. Weight Dosing Weight: 143.6 kg (07/02/22) Dosing Weight: 147.2 kg (07/01/22) Medications Medications (25) Active Scheduled: (19) atenolol 50 mg tablet 50 mg 1 tab(s), Oral, qAM atorvastatin 40 mg tablet 40 mg 1 tab(s), Oral, qHS colestipol 1 gm tablet 2 gram(s) 2 tab(s), Oral, BID desvenlafaxine 50 mg ER tablet 100 mg 2 tab(s), Oral, qAM diclofenac sodium 75 mg oral delayed release tablet 75 mg, Oral, BID doxepin 100 mg Capsule 100 mg 1 cap(s), Oral, qHS furosemide 20 mg tablet 20 mg 1 tab(s), Oral, qDay insulin glargine 100 units/ml solution 52 unit(s) 0.52 mL, Subcutaneous, qHS insulin lispro 100 units/mL Soln (3 mL) Give 0-5 units/dose, Subcutaneous, achs insulin lispro 100 units/mL Soln (3 mL) 12 unit(s) 0.12 mL, Subcutaneous, TIDAC lamoTRIgine 100 mg tablet 150 mg 1.5 tab(s), Oral, qDay latanoprost ophthalmic 0.005% Solution 1 drop(s), Eyes, both, qHS lidocaine patch REMOVAL 1 EA, Miscellaneous, q24h lidocaine topical 4% patch 2 patch(es), Transdermal, q24h losartan 50 mg tablet 50 mg 1 tab(s), Oral, qDay magnesium oxide 400 mg Tablet 400 mg 1 tab(s), Oral, BID metformin 500 mg Tablet 1,000 mg 2 tab(s), Oral, BIDM [id number] ethyl esters 1000 mg capsule 2,000 mg 2 cap(s), Oral, BID pantoprazole 20 mg EC tablet 40 mg 2 tab(s), Oral, qDayAC Continuous: (0) PRN: (6) acetaminophen 325 mg Tablet 650 mg 2 tab(s), Oral, q4h acetaminophen 325 mg Tablet 650 mg 2 tab(s), Oral, q4h albuterol - ipratropium 2.5 mg-0.5 mg/3 mL Inhal Elba UD 3 mL, Inhalation, q2hRT diphenhyDRAMINE 50 mg/mL (1 mL) INJ 25 mg 0.5 mL, IV Push, Once melatonin 3 mg tablet 6 mg 2 tab(s), Oral, qHS ondansetron 2 mg/ 1 mL 2 mL INJ 4 mg 2 mL, IV Push, q4h Lab Results No 36 Hour Lab Data Imaging Results and Diagnostics XR Chest 2 Views Result Date: July 01, 2022 Verified By: KERON BLACK MD CLINICAL STATEMENT: IMPRESSION: Emphysematous changes and mild atelectasis. XR Hip Minimum 2 Views Right Result Date: July 01, 2022 Verified By: KERON BLACK MD CLINICAL STATEMENT: IMPRESSION: No acute fracture. Assessment/Plan 1. Asthenia Acute, new onset *PT and OT consulted and following. *Depression screening completed and patient now requires evaluation by the [facility]. *Patient accepted by a SNF - awaiting mental health assessment by [facility]. 2. Fever Resolved *Urine culture showing multiple bacterial morphotypes suggesting contamination. *One blood culture growing gram-positive cocci - likely contamination. *Repeat blood cultures collected - one set again growing gram-positive cocci - likely contamination. *Patient has had no recurrent fevers or leukocytosis. 3. Lactic acidosis Resolved *Likely caused by metformin. *Resolved with IV fluids. 4. Diabetes mellitus type 2 Chronic *Blood sugar checks before meals and at bedtime. *Cover with sliding scale insulin. *Continue diabetic diet. *Continue Metformin at home dose. *Continue Lantus 52 units nightly and Humalog 12 units 3 times daily AC. *A1c 8.9%. 5. COPD Chronic, stable *Continue duonebs as needed for shortness of breath/wheezing. 6. Hypertension Chronic *Continue current home antihypertensives. *SBP goal of 140 or less. 7. Hypomagnesemia Acute, new onset, likely secondary to diuretic use *Continue magnesium oxide 400 mg PO daily. *Check magnesium level in am. 8. Osteoarthritis Chronic *Continue lidocaine patches. 9. MARGARETTE (obstructive sleep apnea) Chronic *May use CPAP at bedtime. History of depression- Continue home medications. No suicidal ideations. Patient has been stable for discharge since Sunday 07/02 but was flagged for review when PAS-R submitted. Mental health evaluation by [facility] pending. DVT prophylaxis with SCDs, ambulation. Labs, diagnostic test and progress notes reviewed as noted in HPI. Plan of care discussed with patient. All questions answered. Patient verbalizes understanding and is agreeable with plan of care. This case was discussed with collaborating physician, Dr. Dell Branch. Time Spent 35 minutes Digitally Signed by AGNES DUNCAN on 07/08/2022 12:11 PM [facility]03-22-2023 Note Date of Service 07/07/2022 Chief Complaint Weakness Subjective Patient seen and evaluated this morning while sitting on the side of her bed. She states that she is doing well this morning and denies any new problems or concerns this morning. She denies any fever, chills, cough, shortness of breath, chest pain, abdominal pain, nausea or dysuria. Patient aware that we are awaiting a mental health assessment before we can send her to a skilled facility for therapy. All questions answered. Objective Vitals and Measurements T: 36.4 C (Oral) TMIN: 36.4 C (Oral) TMAX: 36.7 C (Oral) HR: 87(Monitored) RR: 18 BP: 144/79 SpO2: 97% Intake and Output 7AM Yesterday to 7AM Today Intake and Output (Last 24 hours) Intake Output Stool Count 1.00 Urine Count 3.00 Total Summary Total Intake 0.00 Total Output 0.00 Fluid Balance 0.00 Physical Exam General: No acute distress. Patient is alert and appropriate. Skin: No rash. Skin is warm, dry and intact. HEENT: Head is normocephalic, atraumatic. Pupils are equal, round and reactive. Neck: Supple. No lymphadenopathy, thyromegaly. Lungs: Bilaterally clear but diminished without crepitation or wheeze. Unlabored. Heart: Heart is regular rhythm, S1, S2. No murmurs, gallops or rubs. Abdomen: Abdomen is soft, nontender. Bowels sounds present in all quadrants. Extremities: No clubbing, cyanosis, or edema. Peripheral pulses palpable. No calf tenderness. Neurological: Patient is awake and alert to person, place and time. Following simple commands, moving all extremities. Weight Dosing Weight: 143.6 kg (07/02/22) Dosing Weight: 147.2 kg (07/01/22) Medications Medications (25) Active Scheduled: (19) atenolol 50 mg tablet 50 mg 1 tab(s), Oral, qAM atorvastatin 40 mg tablet 40 mg 1 tab(s), Oral, qHS colestipol 1 gm tablet 2 gram(s) 2 tab(s), Oral, BID desvenlafaxine 25 mg ER tablet 100 mg 4 tab(s), Oral, qAM diclofenac sodium 75 mg oral delayed release tablet 75 mg, Oral, BID doxepin 100 mg Capsule 100 mg 1 cap(s), Oral, qHS furosemide 20 mg tablet 20 mg 1 tab(s), Oral, qDay insulin glargine 100 units/ml solution 52 unit(s) 0.52 mL, Subcutaneous, qHS insulin lispro 100 units/mL Soln (3 mL) Give 0-5 units/dose, Subcutaneous, achs insulin lispro 100 units/mL Soln (3 mL) 12 unit(s) 0.12 mL, Subcutaneous, TIDAC lamoTRIgine 100 mg tablet 150 mg 1.5 tab(s), Oral, qDay latanoprost ophthalmic 0.005% Solution 1 drop(s), Eyes, both, qHS lidocaine patch REMOVAL 1 EA, Miscellaneous, q24h lidocaine topical 4% patch 2 patch(es), Transdermal, q24h losartan 50 mg tablet 50 mg 1 tab(s), Oral, qDay magnesium oxide 400 mg Tablet 400 mg 1 tab(s), Oral, BID metformin 500 mg Tablet 1,000 mg 2 tab(s), Oral, BIDM [id number] ethyl esters 1000 mg capsule 2,000 mg 2 cap(s), Oral, BID pantoprazole 20 mg EC tablet 40 mg 2 tab(s), Oral, qDayAC Continuous: (0) PRN: (6) acetaminophen 325 mg Tablet 650 mg 2 tab(s), Oral, q4h acetaminophen 325 mg Tablet 650 mg 2 tab(s), Oral, q4h albuterol - ipratropium 2.5 mg-0.5 mg/3 mL Inhal Elba UD 3 mL, Inhalation, q2hRT diphenhyDRAMINE 50 mg/mL (1 mL) INJ 25 mg 0.5 mL, IV Push, Once melatonin 3 mg tablet 6 mg 2 tab(s), Oral, qHS ondansetron 2 mg/ 1 mL 2 mL INJ 4 mg 2 mL, IV Push, q4h Lab Results 03/21 08:03 WBC: 6.0 Hgb: 10.7 L Hct: 32.2 L Platelet: 189 Neutrophil %: 58.3 Glucose Level: 220 H Sodium Level: 136 Potassium Level: 4.1 BUN: 23 H Creatinine Lvl (s): 1.02 Imaging Results and Diagnostics XR Chest 2 Views Result Date: July 01, 2022 Verified By: KERON BLACK MD CLINICAL STATEMENT: IMPRESSION: Emphysematous changes and mild atelectasis. XR Hip Minimum 2 Views Right Result Date: July 01, 2022 Verified By: KERON BLACK MD CLINICAL STATEMENT: IMPRESSION: No acute fracture. EKG No qualifying data available. Assessment/Plan 1. Asthenia Acute, new onset *PT and OT consulted and following. *Depression screening completed and patient now requires evaluation by the [facility]. *Patient accepted by a SNF. 2. Fever Resolved *Urine culture showing multiple bacterial morphotypes suggesting contamination. *One blood culture growing gram-positive cocci - likely contamination. *Repeat blood cultures collected - one set again growing gram-positive cocci - likely contamination. *Patient has had no recurrent fevers or leukocytosis. 3. Lactic acidosis Resolved *Likely caused by metformin. *Resolved with IV fluids. 4. Diabetes mellitus type 2 Chronic *Blood sugar checks before meals and at bedtime. *Cover with sliding scale insulin. *Continue diabetic diet. *Continue Metformin at home dose. *Continue Lantus 52 units nightly and Humalog 12 units 3 times daily AC. *A1c 8.9%. 5. COPD Chronic, stable *Continue duonebs as needed for shortness of breath/wheezing. 6. Hypertension Chronic *Continue current home antihypertensives. *SBP goal of 140 or less. 7. Hypomagnesemia Acute, new onset, likely secondary to diuretic use *Magnesium 1.7 again this morning. *Continue magnesium oxide 400 mg PO daily. *Repeat magnesium level in am. 8. Osteoarthritis Chronic *Continue lidocaine patches. 9. MARGARETTE (obstructive sleep apnea) Chronic *May use CPAP at bedtime. History of depression- Continue home medications. No suicidal ideations. DVT prophylaxis: SCDs. Code status: Full Code. Labs, diagnostic test and progress notes reviewed as noted in HPI. This case was discussed with collaborating physician, Dr. Dell Branch. Time Spent 35 minutes Digitally Signed by AGNES DUNCAN on 07/07/2022 01:45 PM [facility]03-21-2023 Note Date of Service 07/06/2022 Subjective 66-year-old female with past medical history significant for COPD, type 2 diabetes mellitus, GERD, hypertension, hyperlipidemia, IBS, breast cancer, lLung Cancer s/p left upper lobe lobectomy. Patient presented to [facility] emergency department on 07/01/2022 for right hip pain and multiple, repeated falls over the past 10 days. Patient has required EMS assistance for falls and to getout of her chairs. In the emergency department patient did have a fever of 38 C. She was hemodynamically stable and initially required O2 via nasal cannula at 4 L. She had no leukocytosis. White blood cell count was 8000. Urinalysis was negative for nitrates and leukocyte esterase. Glucose elevatedat 285. Lactic acid 2.4. Troponin 11.6. X-ray chest showed emphysema and mild atelectasis. X-ray hip showed no acute fracture. Patient received 3 L of normal saline in the emergency department. Bloodcultures obtained in the emergency department. Decision was made to admit for observation and therapy evaluation. Patient has been persistently hypomagnesemic. Suspect this is related to diuretic use and poorly controlled diabetes. Patient is participating with therapy services. She has been approved to go to [facility] and has been accepted by SNF however awaiting state evaluation for depression. On exam today, pt denies any fever or chills. No headache or dizziness. Denies chest pain, palpitations. No cough, dyspnea, sputum production. Denies N/V/D/C. No melena/hematochezia. Chronically incontinent. Chronic peripheral neuropathy BLE. Objective Vitals and Measurements T: 36.5 C (Oral) TMIN: 36.5 C (Oral) TMAX: 37.0 C (Oral) HR: 61(Monitored) RR: 18 BP: 177/91 SpO2: 96% Intake and Output 7AM Yesterday to 7AM Today Intake and Output (Last 24 hours) Intake Oral Intake 240.00 Output Stool Count 1.00 Urine Count 6.00 Diaper Count 2.00 Total Summary Total Intake 240.00 Total Output 0.00 Fluid Balance 240.00 Physical Exam GEN: Appears chronically ill CHEST: Normal S1 and S2. Rhythm is regular. Clear to auscultation, without rales, rhonchi, wheezing. ABD: Positive bowel sounds x 4 quads. Soft, obese, nondistended, nontender. EXT: No significant deformity or joint abnormality. Trace BLE edema. Peripheral pulses intact. NEURO: Sensation grossly intact SKIN: Skin color normal. Left foot, 4th toe erythematous. Not warm. Present on admission. Good cap refill. PSYCH: The mental examination revealed the patient was alert and oriented x 4 Weight Dosing Weight: 143.6 kg (07/02/22) Dosing Weight: 147.2 kg (07/01/22) Medications Medications (25) Active Scheduled: (19) atenolol 50 mg tablet 50 mg 1 tab(s), Oral, qAM atorvastatin 40 mg tablet 40 mg 1 tab(s), Oral, qHS colestipol 1 gm tablet 2 gram(s) 2 tab(s), Oral, BID desvenlafaxine 25 mg ER tablet 100 mg 4 tab(s), Oral, qAM diclofenac sodium 75 mg oral delayed release tablet 75 mg, Oral, BID doxepin 100 mg Capsule 100 mg 1 cap(s), Oral, qHS furosemide 20 mg tablet 20 mg 1 tab(s), Oral, qDay insulin glargine 100 units/ml solution 52 unit(s) 0.52 mL, Subcutaneous, qHS insulin lispro 100 units/mL Soln (3 mL) Give 0-5 units/dose, Subcutaneous, achs insulin lispro 100 units/mL Soln (3 mL) 12 unit(s) 0.12 mL, Subcutaneous, TIDAC lamoTRIgine 100 mg tablet 150 mg 1.5 tab(s), Oral, qDay latanoprost ophthalmic 0.005% Solution 1 drop(s), Eyes, both, qHS lidocaine patch REMOVAL 1 EA, Miscellaneous, q24h lidocaine topical 4% patch 2 patch(es), Transdermal, q24h losartan 50 mg tablet 50 mg 1 tab(s), Oral, qDay magnesium oxide 400 mg Tablet 400 mg 1 tab(s), Oral, BID metformin 500 mg Tablet 1,000 mg 2 tab(s), Oral, BIDM [id number]-[id number] ethyl esters 1000 mg capsule 2,000 mg 2 cap(s), Oral, BID pantoprazole 20 mg EC tablet 40 mg 2 tab(s), Oral, qDayAC Continuous: (0) PRN: (6) acetaminophen 325 mg Tablet 650 mg 2 tab(s), Oral, q4h acetaminophen 325 mg Tablet 650 mg 2 tab(s), Oral, q4h albuterol - ipratropium 2.5 mg-0.5 mg/3 mL Inhal Elba UD 3 mL, Inhalation, q2hRT diphenhyDRAMINE 50 mg/mL (1 mL) INJ 25 mg 0.5 mL, IV Push, Once melatonin 3 mg tablet 6 mg 2 tab(s), Oral, qHS ondansetron 2 mg/ 1 mL 2 mL INJ 4 mg 2 mL, IV Push, q4h Lab Results 07/06 08:03 WBC: 6.0 Hgb: 10.7 L Hct: 32.2 L Platelet: 189 Neutrophil %: 58.3 Glucose Level: 220 H Sodium Level: 136 Potassium Level: 4.1 BUN: 23 H Creatinine Lvl (s): 1.02 07/05 05:33 Glucose Level: 223 H Sodium Level: 139 Potassium Level: 4.0 BUN: 27 H Creatinine Lvl (s): 1.11 H Imaging Results and Diagnostics XR Chest 2 Views Result Date: July 01, 2022 Verified By: KERON BLACK MD CLINICAL STATEMENT: IMPRESSION: Emphysematous changes and mild atelectasis. XR Hip Minimum 2 Views Right Result Date: July 01, 2022 Verified By: KERON BLACK MD CLINICAL STATEMENT: IMPRESSION: No acute fracture. Assessment/Plan 1. Asthenia 2. Fever 3. Lactic acidosis 4. Diabetes mellitus type 2 5. COPD 6. Hypertension 7. Hypomagnesemia 8. Osteoarthritis 9. MARGARETTE (obstructive sleep apnea) Asthenia- PT and OT consulted, recommending SNF for therapy. Patient's depression screening completed and now she requires evaluation by the state. This is supposed to happen today. Patient unable andie transferred to SNF until this occurs. Fever-resolved. Urine culture showed multiple bacterial morphotypes suggesting contamination. 1 blood culture came back with gram-positive cocci in clusters. Possible contamination. Repeat blood cultures collected. 1 blood culture is showing NGTD, the other blood culture is growing gram-positive cocci in 1 and the other shows no growth to date. Suspect contamination again. Patient has no fevers or leukocytosis. Lactic acidosis-Likely related to metformin. This is resolved with fluid administration. Type 2 diabetes mellitus- Glucose goal 180 or less and avoid hypoglycemia. Continue home insulin. Continue corrective sliding scale insulin. ADA diet. Restart home dose of metformin. Blood sugars have been elevated. A1c is 8.9%. Will make adjustment in patient's insulin. Discontinue home coverage. Lantus 52 units nightly and Humalog 12 units 3 times daily AC. COPD- Not in acute exacerbation. As needed duonebs. Pt does not use any maintenance inhalers at home. HTN- SBP goal 140 or less. Furosemide 20mg qam. Hypomagnesemia continue magnesium oxide 400 mg twice daily. Magnesium level 1.7 today. It has been persistently low despite IV replacements. Will give magnesium sulfate 6 g IV today. Repeat magnesiumlevel tomorrow. Suspect this is related to too much diuretic use. Patient is prescribed Lasix 20 mgtwice daily. She admits to taking this sometimes 3 times daily. She is also prescribed HCTZ. Additionally patient's blood sugars are not well controlled. Believe that both of these are contributors to persistent hypomagnesemia. Patient also has been having diarrhea. She has not received MiraLAX. Wewill add Colestid. Osteoarthritis- Chronic hip pain. Continue lidocaine patches. History of depression- Continue home medications. No suicidal ideations. DVT prophylaxis: SCDs Labs, diagnostics, and progress notes reviewed as noted in HPI Code Status: Full code Plan of care discussed with patient. All questions answered. Patient verbalizes understanding is agreeable to plan of care. This dictation was performed using voice recognition software and may include grammatical and/or spelling errors. Digitally Signed by MAKI TOUSSAINT on 07/06/2022 12:17 PM [facility]03-17-2023 Evaluation + Plan noteExtracted from: Title:History and Physical Author:Deja Hicks Student Date:07/02/22 1. Asthenia Worsening symptoms resulting in inability to get up off mattress or toileting. Lactic acidosis of 2.4 that quickly resolved with IV fluids. Negative urinalysis with no leukocytes or nitrates in urine. Troponin negative at 11.6. Depression has played a role in generalized debility anhedonism. PT and OT to evaluate and treat. Will likely need placement for rehabilitation. 2. Fever Chest X-ray without infiltrates. Urine without leukocytes and nitrates. ECG with Left BBB but troponin normal 11.6. Likely related to lactic acidosis. Follow CBC. WBC only 6.100. Respiratory panel pending. Tiny area of redness on dorsal aspect left 4th toe, no open lesion or drainage noted. 3. Lactic acidosis Resulted from patient not being able to get up off the mattress positioned on the floor. 4. Diabetes mellitus type 2 Coverage with sliding scale insulin and NPH. Hold metformin. 5. COPD Quit tobacco ten years ago. Smoked about 1 ppd for 45 years. Lungs auscultate clear. Chest X-ray note emphysema with mild atelectasis. SAO2 93% on room air. 6. Hypertension Continue atenolol. 7. Hypomagnesemia Replaced with magnesium sulfate IV. Benadryl if needed for allergic reaction but she is tolerant of IV magnesium replacement. Check Magnesium level and BMP tomorrow. 8. Osteoarthritis Ongoing. Acetaminophen ordered. Given one dose of Dilaudid. Lidocaine patch ordered. Patient remains a full code. SCDs ordered for patient. Diclofenac held. 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 Asthenia 2. Fever 3. Lactic acidosis 4. Diabetes mellitus type 2 Ordered: 5. COPD 6. Hypertension 7. Hypomagnesemia 8. Osteoarthritis Asthenia- PT and OT consulted, recommending SNF for therapy. Fever- Fever of 38 degrees Celsius on admission. Lat night low grade temp of 37.4. No leukocytosis. Will check respiratory panel. Urinalysis unremarkable, CXR unremarkable. Lactic acidosis-Likely related to metformin. This is resolved with fluid administration. No clear evidence of infectious process. Type 2 diabetes mellitus- Glucose goal 180 or less and avoid hypoglycemia. Resume home insulin. Add corrective sliding scale insulin. ADA diet. COPD- Not in acute exacerbation. As needed duonebs. Pt does not use any maintenance inhalers at home. HTN- SBP goal 140 or less. Continue home antihypertensives. Hypomagnesemia Mag sulfate allergy listed but pt does not believe this to be accurate. Mag Sulfate 4G given with no adverse effects. Osteoarthritis- Chronic hip pain. Will add lidocaine patches. DVT prophylaxis: SCDs Labs, diagnostics, and progress notes reviewed as noted in HPI Code Status: Full code Plan of care discussed with patient. All questions answered. Patient verbalizes understanding is agreeable to plan of care. This dictation was performed using voice recognition software and may include grammatical and/or spelling errors. [facility] 03-17-2023 Note Date of Service 07/02/22 Chief Complaint weakness and falls History of Present Illness Patient was unable to get out of bed on Tuesday. She sleeps on a mattress on the floor. Symptoms started on Tuesday but by Tuesday, she was lying in a large amount of urine and unable to get out of bed to ambulate. She notes a moderate amount of edema in all extremities that is new. She has not beenable to hold her urine for several years. She also notes depression that has increased recently. Ithas affected her ADLs and IADLs. She states she was resistant to call an ambulance because she knewthat she would end up in a fpc. EMS was called Tuesday. In the emergency room, and ECG was done noting a left bundle branch block. Troponin was 11.6. She was febrile at 38 C. Lactic acid level was elevated at 2.4 but normalized with fluids. WBC was 8,000. Urine negative for nitrates and leukocytes. Chest X-ray showed emphysema and mild atelectasis. Patient has been complaining of righthip pain. X-ray of right hip showed only mild osteoarthritis. An X-ray was done to evaluate right hand swelling, no fracture. Severe first digit proximal osteoarthritis was noted. Review of Systems GEN: 66 yr old female is who is morbidly obese, suffers from chronic and worsening depression HEENT: denies headache, blurred or double vision, no dysphagia CV: denies chest pain, denies palpitations, c/o edema in hands and feet since Tuesday, denies PND or orthopnea PULM: denies SOB, cough, or wheeze GI: denies GERD, always loose stool, maybe some diarrhea, never constipation : incontinent of urine, wears depends MUSCULO: generalized weakness that has been progressive with inability to get out of bed, frequent falls INTEG: denies rashes, itching or sores NEURO: denies seizures, CVA, or tremors ENDO: + DM, denies thyroid trouble HEMO: denies clotting or bleeding trouble Physical Exam Vitals and Measurements T: 37.3 C (Oral) TMIN: 37.0 C (Oral) TMAX: 37.5 C (Oral) HR: 85(Monitored) RR: 18 BP: 136/73 SpO2: 94% HT: 175.3 cm WT: 143.6 kg BMI: 47.9 Weight Dosing Weight: 143.6 kg (07/02/22) Dosing Weight: 147.2 kg (07/01/22) GEN: Morbidly obese female who is weak, lying in bed. She remains incontinent of urine by refused moisture barriers offered by nursing. HEENT: head is normocephalic, PEARLLA, neck is thick- full, no audible bruit. CV: S1S2, diminished at apex, third spacing fluid collections in hands and feet (left foot > right foot). Right lower extremities is always a little larger. No pitting. PULM: CTA, chest rise & fall symmetrical ABD: rounded, soft, + MIRA : incontinent of urine and excoriated MUSCULO: wide spread debility, strength 2/5 all extremities INTEG: perineal excoriation due to poor hygiene due to chronic urinary incontinence; right forth toe red dorsal aspect Lab Results 07/02 05:20 WBC: 6.1 Hgb: 10.6 L Hct: 31.6 L Platelet: 128 L Neutrophil %: 67.5 Glucose Level: 258 H Sodium Level: 139 Potassium Level: 4.1 BUN: 16 Creatinine Lvl (s): 0.91 07/01 10:00 WBC: 8.3 Hgb: 11.6 L Hct: 34.7 L Platelet: 138 Neutrophil %: 79.4 Glucose Level: 285 H Sodium Level: 139 Potassium Level: 4.7 BUN: 18 Creatinine Lvl (s): 0.95 Imaging Results and Diagnostics XR Chest 2 Views Result Date: July 01, 2022 Verified By: KERON BLACK MD CLINICAL STATEMENT: IMPRESSION: Emphysematous changes and mild atelectasis. XR Hip Minimum 2 Views Right Result Date: July 01, 2022 Verified By: KERON BLACK MD CLINICAL STATEMENT: IMPRESSION: No acute fracture. EKG Left bundle branch block, poor R wave progression Assessment/Plan 1. Asthenia Worsening symptoms resulting in inability to get up off mattress or toileting. Lactic acidosis of 2.4 that quickly resolved with IV fluids. Negative urinalysis with no leukocytes or nitrates in urine. Troponin negative at 11.6. Depression has played a role in generalized debility anhedonism. PT andOT to evaluate and treat. Will likely need placement for rehabilitation. 2. Fever Chest X-ray without infiltrates. Urine without leukocytes and nitrates. ECG with Left BBB but troponin normal 11.6. Likely related to lactic acidosis. Follow CBC. WBC only 6.100. Respiratory panel pending. Tiny area of redness on dorsal aspect left 4th toe, no open lesion or drainage noted. 3. Lactic acidosis Resulted from patient not being able to get up off the mattress positioned on the floor. 4. Diabetes mellitus type 2 Coverage with sliding scale insulin and NPH. Hold metformin. 5. COPD Quit tobacco ten years ago. Smoked about 1 ppd for 45 years. Lungs auscultate clear. Chest X-ray note emphysema with mild atelectasis. SAO2 93% on room air. 6. Hypertension Continue atenolol. 7. Hypomagnesemia Replaced with magnesium sulfate IV. Benadryl if needed for allergic reaction but she is tolerant ofIV magnesium replacement. Check Magnesium level and BMP tomorrow. 8. Osteoarthritis Ongoing. Acetaminophen ordered. Given one dose of Dilaudid. Lidocaine patch ordered. Patient remains a full code. SCDs ordered for patient. Diclofenac held. 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 Historical Breast cancer Procedure/Surgical History Cholecystectomy: 2013 Lumpectomy of breast: 2012 Eye surgery: 1968 Suspension of bladder Cystoscopy Colonoscopy Medications Home Medications (21) Active albuterol MDI (90 mcg/inh) CFC free inhalation aerosol 2 puff(s), PRN, Inhalation, q4h atenolol 50 mg oral tablet 50 mg = 1 tab(s), Oral, qAM atorvastatin 40 mg oral tablet 40 mg = 1 tab(s), Oral, qHS benzonatate 200 mg oral capsule 200 mg = 1 cap(s), PRN, Oral, TID calcium-vitamin D 600 mg-5 mcg (200 intl units) oral capsule 1 cap(s), Oral, with lunch desvenlafaxine 100 mg oral tablet, extended release 100 mg = 1 tab(s), Oral, qAM diclofenac sodium 75 mg oral delayed release tablet 75 mg = 1 tab(s), Oral, BID doxepin 100 mg oral capsule 100 mg = 1 cap(s), Oral, qHS Fish Oil 1000 mg oral capsule 2,000 mg = 2 cap(s), Oral, BID furosemide 20 mg oral tablet 20 mg = 1 tab(s), Oral, BID HumuLIN 70/30 KwikPen 70 units-30 units/mL subcutaneous suspension 35 unit(s), Subcutaneous, BIDAC Januvia 50 mg oral tablet 50 mg = 1 tab(s), Oral, qAM lidocaine 5% topical patch 1 patch(es), Topical, Daily Lumigan 0.01% ophthalmic solution 1 drop(s), Eyes, both, qHS metFORMIN 500 mg oral tablet EXTENDED RELEASE 500 mg = 1 tab(s), Oral, BID omeprazole 40 mg oral delayed release capsule 40 mg = 1 cap(s), Oral, qAM oxybutynin 10 mg/24 hr oral tablet, extended release 10 mg = 1 tab(s), Oral, qAM Pen needles See Instructions predniSONE 50 mg oral tablet 50 mg = 1 tab(s), Oral, qDayM Therems M oral tablet 1 tab(s), Oral, with lunch Tylenol 325 mg oral capsule 650 mg, PRN, Oral, q4h Allergies Bee Stings (Difficulty breathing) morphine (Anaphylaxis) Eggs (Nausea and vomiting) Brintellix HYDROcodone aspirin calcium carbonate (Unknown) codeine (Amnesia, Altered mental status) flu vaccines (Unknown) gabapentin (Abnormal muscle function) influenza virus vaccine, inactivated penicillin propoxyphene Social History Smoking Status - 11/05/2017 Never smoker Alcohol - No Risk, 02/19/2017 Use: Current. Frequency: 1-2 times per year., 09/14/2018 Home/Environment Domestic Concerns: None. Living situation: Home with assistance. Lives In: Single level home. Current Home Treatments Blood glucose monitoring, BIPAP. 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 Marital Status: Unmarried., 02/02/2021 Nutrition/Health Type of diet: Regular. Appetite Good. Eating Difficulties No teeth, DENTURES UPPERS. Caffeine intake amount: 1 CAN SODA/DAY., 02/02/2021 Substance Abuse - No Risk, 02/19/2017 Use: Never., 09/14/2018 Tobacco - High Risk, 02/24/2020 Tobacco Use: Former smoker, quit more than 30 days ago., 09/14/2018 Family History Breast cancer: Mother. Diabetes mellitus type 2: Mother. Heart attack: Father. Heart disease: Father. Skin cancer: Sister. Sister: History is negative Immunizations hepatitis B adult vaccine: 0 unknown unit (01/23/97) hepatitis B adult vaccine: 0 unknown unit (06/27/96) hepatitis B adult vaccine: 0 unknown unit (05/09/96) pneumococcal 13-valent conjugate vaccine: 0.5 unknown unit (07/27/21) SARS-CoV-2 (COVID-19) mRNA-1273 vaccine: 0.5 unknown unit (11/15/20) SARS-CoV-2 (COVID-19) mRNA-1273 vaccine: 0.5 unknown unit (10/17/20) tetanus/diphth/pertuss (Tdap) adult/adol: 0.5 unknown unit (02/02/22) tetanus/diphth/pertuss (Tdap) adult/adol: 0.5 mL (06/19/20) zoster vaccine, inactivated: 1 unknown unit (02/02/22) Code Status Code Status - Ordered -- 07/01/22 18:04:00 EDT, Full Code, Constant Order Digitally Signed by Joseline Hicks Student on 07/02/2022 01:17 PM [facility]03-17-2023 Note Date of Service 07/02/2022 Chief Complaint squad brings her in from home because of weakness and right hip pain History of Present Illness 66-year-old female with past medical history significant for COPD, type 2 diabetes mellitus, GERD, hypertension, hyperlipidemia, IBS, breast cancer, lLung Cancer s/p left upper lobe lobectomy. Patient presented to [facility] emergency department on 07/01/2022 for right hip pain and multiple, repeated falls over the past 10 days. Patient has required EMS assistance for falls and to getout of her chairs. In the emergency department patient did have a fever of 38 C. She was hemodynamically stable and initially required O2 via nasal cannula at 4 L. She had no leukocytosis. White blood cell count was 8000. Urinalysis was negative for nitrates and leukocyte esterase. Glucose elevatedat 285. Lactic acid 2.4. Troponin 11.6. X-ray chest showed emphysema and mild atelectasis. X-ray hip showed no acute fracture. Patient received 3 L of normal saline in the emergency department. Bloodcultures obtained in the emergency department. Decision was made to admit for observation and therapy evaluation. On exam today, pt denies any fever or chills. No headache or dizziness. Denies chest pain, palpitations. No cough, dyspnea, sputum production. Denies N/V/D/C. No melena/hematochezia.Chronic urinary incontinence. No new paresthesias. Chronic hip pain from arthritis. Review of Systems See HPI for specific ROS. All other systems reviewed and negative. Physical Exam Vitals and Measurements T: 37.2 C (Oral) TMIN: 37.0 C (Oral) TMAX: 37.4 C (Oral) HR: 99(Apical) RR: 18 BP: 166/68 SpO2: 92%HT: 175.3 cm WT: 143.6 kg BMI: 47.9 Weight Dosing Weight: 143.6 kg (07/02/22) Dosing Weight: 147.2 kg (07/01/22) GEN: Appears chronically ill EYES: No conjunctival erythema, drainage. EOMI EARS: Hearing grossly intact. NOSE: No nasal discharge. THROAT: Oral cavity and pharynx pink and dry CHEST: Normal S1 and S2. Rhythm is regular. Clear to auscultation, without rales, rhonchi, wheezing. ABD: Positive bowel sounds x 4 quads. Soft, obese, nondistended, nontender. EXT: No significant deformity or joint abnormality. Trace BLE edema. Peripheral pulses intact. NEURO: Sensation grossly intact SKIN: Skin color normal. Left foot, 4th toe erythematous. Not warm. PSYCH: The mental examination revealed the patient was alert and oriented x 4 Lab Results 07/02 05:20 WBC: 6.1 Hgb: 10.6 L Hct: 31.6 L Platelet: 128 L Neutrophil %: 67.5 Glucose Level: 258 H Sodium Level: 139 Potassium Level: 4.1 BUN: 16 Creatinine Lvl (s): 0.91 07/01 10:00 WBC: 8.3 Hgb: 11.6 L Hct: 34.7 L Platelet: 138 Neutrophil %: 79.4 Glucose Level: 285 H Sodium Level: 139 Potassium Level: 4.7 BUN: 18 Creatinine Lvl (s): 0.95 Imaging Results and Diagnostics XR Chest 2 Views Result Date: July 01, 2022 Verified By: KERON BLACK MD CLINICAL STATEMENT: IMPRESSION: Emphysematous changes and mild atelectasis. XR Hip Minimum 2 Views Right Result Date: July 01, 2022 Verified By: KERON BLACK MD CLINICAL STATEMENT: IMPRESSION: No acute fracture. Assessment/Plan 1. Asthenia 2. Fever 3. Lactic acidosis 4. Diabetes mellitus type 2 Ordered: 5. COPD 6. Hypertension 7. Hypomagnesemia 8. Osteoarthritis Asthenia- PT and OT consulted, recommending SNF for therapy. Fever- Fever of 38 degrees Celsius on admission. Lat night low grade temp of 37.4. No leukocytosis.Will check respiratory panel. Urinalysis unremarkable, CXR unremarkable. Lactic acidosis-Likely related to metformin. This is resolved with fluid administration. No clear evidence of infectious process. Type 2 diabetes mellitus- Glucose goal 180 or less and avoid hypoglycemia. Resume home insulin. Addcorrective sliding scale insulin. ADA diet. COPD- Not in acute exacerbation. As needed duonebs. Pt does not use any maintenance inhalers at home. HTN- SBP goal 140 or less. Continue home antihypertensives. Hypomagnesemia Mag sulfate allergy listed but pt does not believe this to be accurate. Mag Sulfate 4G given with no adverse effects. Osteoarthritis- Chronic hip pain. Will add lidocaine patches. DVT prophylaxis: SCDs Labs, diagnostics, and progress notes reviewed as noted in HPI Code Status: Full code Plan of care discussed with patient. All questions answered. Patient verbalizes understanding is agreeable to plan of care. This dictation was performed using voice recognition software and may include grammatical and/or spelling errors. 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 Historical Breast cancer Procedure/Surgical History Cholecystectomy: 2013 Lumpectomy of breast: 2012 Eye surgery: 1969 Suspension of bladder Cystoscopy Colonoscopy Medications Home Medications (21) Active albuterol MDI (90 mcg/inh) CFC free inhalation aerosol 2 puff(s), PRN, Inhalation, q4h atenolol 50 mg oral tablet 50 mg = 1 tab(s), Oral, qAM atorvastatin 40 mg oral tablet 40 mg = 1 tab(s), Oral, qHS benzonatate 200 mg oral capsule 200 mg = 1 cap(s), PRN, Oral, TID calcium-vitamin D 600 mg-5 mcg (200 intl units) oral capsule 1 cap(s), Oral, with lunch desvenlafaxine 100 mg oral tablet, extended release 100 mg = 1 tab(s), Oral, qAM diclofenac sodium 75 mg oral delayed release tablet 75 mg = 1 tab(s), Oral, BID doxepin 100 mg oral capsule 100 mg = 1 cap(s), Oral, qHS Fish Oil 1000 mg oral capsule 2,000 mg = 2 cap(s), Oral, BID furosemide 20 mg oral tablet 20 mg = 1 tab(s), Oral, BID HumuLIN 70/30 KwikPen 70 units-30 units/mL subcutaneous suspension 35 unit(s), Subcutaneous, BIDAC Januvia 50 mg oral tablet 50 mg = 1 tab(s), Oral, qAM lidocaine 5% topical patch 1 patch(es), Topical, Daily Lumigan 0.01% ophthalmic solution 1 drop(s), Eyes, both, qHS metFORMIN 500 mg oral tablet EXTENDED RELEASE 500 mg = 1 tab(s), Oral, BID omeprazole 40 mg oral delayed release capsule 40 mg = 1 cap(s), Oral, qAM oxybutynin 10 mg/24 hr oral tablet, extended release 10 mg = 1 tab(s), Oral, qAM Pen needles See Instructions predniSONE 50 mg oral tablet 50 mg = 1 tab(s), Oral, qDayM Therems M oral tablet 1 tab(s), Oral, with lunch Tylenol 325 mg oral capsule 650 mg, PRN, Oral, q4h Allergies Bee Stings (Difficulty breathing) morphine (Anaphylaxis) Eggs (Nausea and vomiting) Brintellix HYDROcodone aspirin calcium carbonate (Unknown) codeine (Amnesia, Altered mental status) flu vaccines (Unknown) gabapentin (Abnormal muscle function) influenza virus vaccine, inactivated penicillin propoxyphene Social History Smoking Status - 11/05/2017 Never smoker Alcohol - No Risk, 02/19/2017 Use: Current. Frequency: 1-2 times per year., 09/14/2018 Home/Environment Domestic Concerns: None. Living situation: Home with assistance. Lives In: Single level home. Current Home Treatments Blood glucose monitoring, BIPAP. 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 Marital Status: Unmarried., 02/02/2021 Nutrition/Health Type of diet: Regular. Appetite Good. Eating Difficulties No teeth, DENTURES UPPERS. Caffeine intake amount: 1 CAN SODA/DAY., 02/02/2021 Substance Abuse - No Risk, 02/19/2017 Use: Never., 09/14/2018 Tobacco - High Risk, 02/24/2020 Tobacco Use: Former smoker, quit more than 30 days ago., 09/14/2018 Family History Breast cancer: Mother. Diabetes mellitus type 2: Mother. Heart attack: Father. Heart disease: Father. Skin cancer: Sister. Sister: History is negative Immunizations hepatitis B adult vaccine: 0 unknown unit (01/23/97) hepatitis B adult vaccine: 0 unknown unit (06/27/96) hepatitis B adult vaccine: 0 unknown unit (05/09/96) pneumococcal 13-valent conjugate vaccine: 0.5 unknown unit (07/27/21) SARS-CoV-2 (COVID-19) mRNA-1273 vaccine: 0.5 unknown unit (11/15/20) SARS-CoV-2 (COVID-19) mRNA-1273 vaccine: 0.5 unknown unit (10/17/20) tetanus/diphth/pertuss (Tdap) adult/adol: 0.5 unknown unit (02/02/22) tetanus/diphth/pertuss (Tdap) adult/adol: 0.5 mL (06/19/20) zoster vaccine, inactivated: 1 unknown unit (02/02/22) Code Status Code Status - Ordered -- 07/01/22 18:04:00 EDT, Full Code, Constant Order Digitally Signed by MAKI TOUSSAINT on 07/02/2022 11:18 AM [facility]03-17-2023 HCoV 229E RNA VARSHA+non-probe Ql (Nph) Not Detected *NA* (07/02/22 8:20 AM) [facility] [id number] Note Discharge Instructions Thank you for allowing [facility] to assist you with your healthcare needs. The following is importantdischarge information regarding your hospital visit. Diagnosis from Today's Visit Contusion, hip Dehydration Hip pain-swelling Weakness or fatigue What to Do Next Instructions from Your Care Team No qualifying data available. Post Acute Orders No qualifying data available. You Need to Schedule the Following Appointments Follow Up with AGNES HERNANDEZ DO When Within 2-4 days Where: [address] [place] [address] [place] [address]- Allergies Bee Stings (Difficulty breathing) morphine (Anaphylaxis) Eggs (Nausea and vomiting) Brintellix HYDROcodone Magnesium (Unknown) aspirin calcium carbonate (Unknown) codeine (Amnesia, Altered mental status) flu vaccines (Unknown) gabapentin (Abnormal muscle function) influenza virus vaccine, inactivated penicillin propoxyphene Medications Please ask your primary doctor or pharmacist before taking any other medication not listed, including over the counter drugs, herbal medications, vitamins and or supplements as they may interact withur home medications. What How Much When Why Instructions Last Dose Unchanged acetaminophen (Tylenol 325 mg oral capsule) 650 Milligram by mouth Every 4 hours as needed for Pain, scale 1-3 Unchanged albuterol (albuterol MDI (90 mcg/ inh) CFC free inhalation aerosol) 2 puff(s) by inhalation Every 4 hours as needed for as needed for wheezing Unchanged atenolol (atenolol 50 mg oral tablet) 1 tab(s) by mouth Once a day (in the morning) Unchanged atorvastatin (atorvastatin 40 mg oral tablet) 1 tab(s) by mouth Daily at bedtime Unchanged benzonatate (benzonatate 200 mg oral capsule) 1 cap by mouth Three (3) times a day as needed for as needed for cough Unchanged bimatoprost ophthalmic (Lumigan 0.01% ophthalmic solution) 1 Drops Both eyes Daily at bedtime Unchanged calcium-vitamin D (calcium-vitamin D 600 mg-5 mcg (200 intl units) oral capsule) 1 cap by mouth With lunch Unchanged desvenlafaxine (desvenlafaxine 100 mg oral tablet, extended release) 1 tab(s) by mouth Once a day (in the morning) Unchanged diclofenac (diclofenac sodium 75 mg oral delayed release tablet) 1 tab(s) by mouth Two (2) times a day Unchanged DME (Pen needles) See instructions Diabetes mellitus type 2 #100 Re: BID dosing Unchanged doxepin (doxepin 100 mg oral capsule) 1 cap by mouth Daily at bedtime Unchanged furosemide (furosemide 20 mg oral tablet) 1 tab(s) by mouth Two (2) times a day Unchanged insulin isophane (NPH) - insulin regular (HumuLIN 70/ 30 KwikPen 70 units-30 units/ mL subcutaneous suspension) 35 unit(s) Subcutaneous Two (2) times daily before meals Diabetes mellitus type 2 Do not take if you do not eat Unchanged lidocaine topical (lidocaine 5% topical patch) 1 patch(es) Topical Every day Duration: 10 Days Unchanged metFORMIN (metFORMIN 500 mg oral tablet EXTENDED RELEASE) 1 tab(s) by mouth Two (2) times a day Diabetes mellitus type 2 CKD (chronic kidney disease), stage III Unchanged multivitamin with minerals (Therems M oral tablet) 1 tab(s) by mouth With lunch Unchanged omega-3 polyunsaturated fatty acids (Fish Oil 1000 mg oral capsule) 2 cap by mouth Two (2) times a day Unchanged omeprazole (omeprazole 40 mg oral delayed release capsule) 1 cap by mouth Once a day (in the morning) Unchanged oxybutynin (oxybutynin 10 mg/ 24 hr oral tablet, extended release) 1 tab(s) by mouth Once a day (in the morning) Unchanged predniSONE (predniSONE 50 mg oral tablet) 1 tab(s) by mouth Once a day with a meal Acute exacerbation of COPD Bronchitis Duration: 5 Days Unchanged SITagliptin (Januvia 50 mg oral tablet) 1 tab(s) by mouth Once a day (in the morning) Please take this list to your next doctor s visit. Bring all medications you take, including over the counter medications, herbals and other supplements with you to your doctor s visit. Patients and families are reminded to discard old lists and to update any records with all medication providers or retail pharmacies. Education Materials Dehydration (Adult) Dehydration occurs when your body loses too much fluid. This may be the result of vomiting a lot orfrom diarrhea, sweating a lot, or a high fever. It may also happen if you don t drink enough fluid when you re sick. Misuse of diuretics (water pills) can also be a cause. Symptoms include thirst and feeling dizzy, weak, fatigued, or very drowsy. The diet described belowis usually enough to treat most cases. Sometimes you may need medicine. Home care Follow these guidelines for home care: Drink at least 12 8-ounce glasses of fluid every day to overcome the dehydration. Fluid may includewater; orange juice; lemonade; apple, grape, and cranberry juice; clear fruit drinks; electrolyte replacement and sports drinks; and teas and coffee without caffeine. If you have been diagnosed with a kidney disease, ask your doctor how much and what types of fluids you should drink to prevent dehydration. If you have kidney disease, drinking too much fluid can cause it build up in the your body and be dangerous to your health. If you have fever, muscle aching, or headache from a viral syndrome, you may use acetaminophen or ibuprofen, unless another medicine was prescribed for this. If you have chronic liver or kidney disease or ever had a stomach ulcer or GI bleeding, talk with your doctor before using these medicines. Don't take aspirin if you are younger than 18 and are ill with a fever. Aspirin raises the chance forsevere liver injury. Follow-up care Follow up with your health care provider if you don't get better in the next 24 to 48 hours. When to seek medical advice Call your health care provider right away if any of these occur: Continued vomiting (can t keep liquids down) Frequent diarrhea (more than 5 times a day); blood (red or black color) or mucus in diarrhea Blood in vomit or stool Swollen abdomen or increasing abdominal pain Weakness, dizziness, or fainting Unusually drowsy or confused Reduced urine output or extreme thirst Fever of 100.4 F (38 C) oral or higher that does not get better with fever medication [id number] [employer]. [address] [place] [address]. All rights reserved. This information is not intended as a substitute for professional medical care. Always follow yourhealthcare professional's instructions. Hip Contusion A contusion is another word for a bruise. It happens when small blood vessels break open and leak blood into the nearby area. A hip contusion can result from a bump, hit, or fall. Symptoms of a contusion often include changes in skin color (bruising), swelling, and pain. It may take several hours for a deep bruise to show up. If the injury is severe, you may need an X-ray to check for broken bones. Swelling should decrease in a few days. Bruising and pain may take several weeks to go away. Home care Unless another medicine was prescribed, you may take acetaminophen, ibuprofen, or naproxen to help relieve pain and swelling. If needed, stronger pain medicines may be prescribed. Take all medicines as directed. Ice the bruised area to help reduce pain and swelling. Wrap a cold source (ice pack or ice cubes fede plastic bag) in a thin towel. Apply the cold source to the bruised area for 20 minutes every 1 to2 hours the first day. Continue this 3 to 4 times a day until the pain and swelling goes away. If walking causes pain, use crutches or a walker until you can walk without pain. These items can be rented at most pharmacies and orthopedic supply stores. If your injury is keeping you from moving around or caring for yourself properly, you may qualify for services such as home healthcare. Check with your doctor and insurance company to see if this type of care is covered. Follow-up Follow up with your healthcare provider as advised. When to seek medical advice Call your healthcare provider right away if any of these occur: Increased pain, bruising, or swelling near the injured area Decreased ability to bear weight on the injured side Pain or swelling develops below the knee Chest pain or shortness of breath [id number] [employer]. [address] [place] [address]. All rights reserved. This information is not intended as a substitute for professional medical care. Always follow yourhealthcare professional's instructions. Additional Information VACCINATE! IT SAVES LIVES! Members of the community who have not yet received the COVID-19 vaccine and would like to receive it can visit one of [facility] vaccine clinics. There are many vaccine clinic locations within the [facility]. For locations and available times, please visit www.gettheshot.coronavirus.[place].gov/. It is important to note that some COVID mobile vaccine clinics are held outdoors and may be canceled in rainy or stormy conditions. To learn more about pediatric vaccinations (ages 5-11), we invite you to visit the [facility] webpage. [email or web address]/[email or web address] [email or web address] learn more about the COVID-19 vaccine, we invite you to visit the CDC website for a list of frequently asked questions. https://www.cdc.gov/coronavirus/2019-ncov/vaccines/faq.html [facility] Patient Portal Access Instructions: Stay connected with your healthcare team and access your personal medical information anytime with the [facility] Patient Portal. If you would like a full copy of your medical records please contact the [facility] Medical Records Department Tuesday through Tuesday between 8a.m. and 4:30p.m. Please follow the directions below to access the portal: 1.Access the email account you provided upon registration to the [facility].2.Look for an invitation email from [facility].3.Open the email and access the invitation link: [facility] to [facility].Fill in the required rodriges to create your account. Sign into [email or web address] with your username and password that you created in the above steps to stay up to date. You can then view a summary of results, a summary of your visits, and the ability to download your summaries to your computer or send the information securely to a physician. Remember that your healthcare information is confidential, so carefully consider who you will allow to register on the [facility] Patient Portal for access to your information. You can also access the [facility] Patient Portal on the [employer]. Simply click on Health Records under HealthData and then click on the [employer] logo. HOW TO SAFELY DISPOSE OF PRESCRIPTION MEDICATIONS Please use one of the following methods to safely dispose of your unused medications. 1.Use a drug disposal kit: the drug disposal pouch allows you to safely discard your old and unuseddrugs. Ask your nurse to give you one when you are discharged.2.Visit a local take-back location: Many local pharmacies and police departments have programs that collect old and unwanted prescriptiondrugs. Call your local pharmacy or go to http://bit.[employer]7V0Yx7g to find one close to you.3.Make use of household items: Use cat litter or old coffee grounds to dispose medications if other options arenot available. Mix your drugs with these household products, seal them in an airtight container andthrow it into the garbage. Call [facility]: [phone] to be sure your drugs can be disposed of in this way. Some medicines may require a different approach.4.Never flush your medications down the toilet. IF YOU HAVE BEEN PRESCRIBED AN OPIOIDS FOR PAIN If you have been prescribed an opioid (such as hydrocodone, oxycodone or morphine), it is critical to understand the possible side effects and risks of opioid pain medications. Even when taken as directed, opioids can have several side effects including: Tolerance, meaning you might need to take more of a medication for the same pain relief. Nausea, vomiting and/or constipation. Sleepiness, dizziness, dry mouth, confusion, depression or itching. Physical dependence, meaning you have withdrawal symptoms when a medication is stopped ? this can develop within a few days. KNOW YOUR RESPONSIBILITIES It is important to know exactly how much and how often to take the opioid pain medications you are prescribed. Never take opioids in higher amounts or more often than prescribed. Do not combine opioids with alcohol or other drugs that cause drowsiness, such as benzodiazepines, also known as benzos,including diazepam and alprazolam, muscle relaxants or sleep aids. Never sell or share prescriptionopioids. This is illegal. Store opioids in a secure place and out of reach of others (including children, family, friends and visitors). The last page(s) of this document has been signed and retained as a CHART COPY Signatures Patient Education Materials DEHYDRATION (6y-Adult) Hip Contusion Medication Leaflets My discharge plan and instructions have been reviewed and explained to me and IJENNIFER PAMELA A understand my current condition and have read and understand these discharge instructions. I have received a written copy of the plan/instructions. If I have questions, I am aware that I should contact my doctor. Patient/Vault Person Signature: Date/Time: Relationship to Patient: Witness Name/Signature: Date/Time: [place] [id number] Note ORIGINAL HISTORY: Cough COMPARISON: 08 June 2022 FINDINGS: The AP view is rotated. There is hyperinflation. There are mild streaky airspace opacities in the lung bases. The pulmonary vasculature is unremarkable in appearance. IMPRESSION: Emphysematous changes and mild atelectasis. Interpreted by: Keron Black MD Preliminary Report By: Keron Black MD Electronically signed By Keron Black MD Dictated Date: 07/01/2022 11:12:22 AM Prelim Date: 07/01/2022 11:13:11 AM Sign Date: 07/01/2022 11:13:11 AM Ordering Provider: [address]16-2023 Note ORIGINAL HISTORY: Cough COMPARISON: 08 June 2022 FINDINGS: The AP view is rotated. There is hyperinflation. There are mild streaky airspace opacities in the lung bases. The pulmonary vasculature is unremarkable in appearance. IMPRESSION: Emphysematous changes and mild atelectasis. Interpreted by: Keron Black MD Preliminary Report By: Keron Black MD Electronically signed By Keron Black MD Dictated Date: 07/01/2022 11:12:22 AM Prelim Date: 07/01/2022 11:13:11 AM Sign Date: 07/01/2022 11:13:11 AM Ordering Provider: [address]16-2023 Note ORIGINAL HISTORY: Pain COMPARISON: 29 November 2019 FINDINGS: No acute fractures or dislocations are seen. Alignment of the hip is within normal limits. There is mild joint space narrowing. The soft tissues are unremarkable. IMPRESSION: No acute fracture. Interpreted by: Keron Black MD Preliminary Report By: Keron Black MD Electronically signed By Keron Black MD Dictated Date: 07/01/2022 11:02:14 AM Prelim Date: 07/01/2022 11:02:53 AM Sign Date: 07/01/2022 11:02:53 AM Ordering Provider: [address]16-2023 Note ORIGINAL HISTORY: Pain COMPARISON: 29 November 2019 FINDINGS: No acute fractures or dislocations are seen. Alignment of the hip is within normal limits. There is mild joint space narrowing. The soft tissues are unremarkable. IMPRESSION: No acute fracture. Interpreted by: Keron Black MD Preliminary Report By: Keron Black MD Electronically signed By Keron Black MD Dictated Date: 07/01/2022 11:02:14 AM Prelim Date: 07/01/2022 11:02:53 AM Sign Date: 07/01/2022 11:02:53 AM [facility] Discharge instructions Patient Education 06/30/2022 02:20:07 Osteoarthritis Osteoarthritis Osteoarthritis (also called degenerative joint disease) happens when the cartilage in a joint becomes damaged and worn. This may be due to age, wear and tear, overuse of the joint, or other problems.Osteoarthritis can affect any joint. But it is most common in hands, knees, spine, hips, and feet. Symptoms include joint stiffness, pain, and swelling. Home care When a joint is more sore than usual, rest it for a day or two. Heat can help relieve stiffness. Take a hot bath or apply a heating pad for up to 30 minutes at a time. If symptoms are worse in the morning, using heat just after awakening can help relax the muscleand soothe the joints. Ice helps relieve pain and swelling. It is often used after activity. Use a cold pack wrapped in a thin cloth on the joint for 10 to 15 minutes at a time. Alternating hot and cold can also help relieve pain. Try this for 20 minutes at a time, several times per day. Exercise helps prevent the muscles and ligaments around the joint from becoming weak. It also helpsmaintain function in the joint. Be as active as you can. Talk to your healthcare provider about what activity program is best for you. Excess weight puts a lot of extra strain on weight-bearing joints of the lower back, hips, knees, feet and ankles. If you are overweight, talk to your healthcare provider about a safe and effective weight loss program. Use anti-inflammatory medicines as prescribed for pain. This includes acetaminophen or NSAIDs such as ibuprofen or naproxen. If needed, topical or injected medicines may be recommended. Talk to your healthcare provider if these options are not enough to manage your pain. Talk with your healthcare provider about devices that might help improve your function and reduce pain. Follow-up care Follow up with your healthcare provider as advised by our staff. When to seek medical advice Call your healthcare provider right away if any of these occur: Redness or swelling of a painful joint Discharge or pus from a painful joint Fever of 100.4 F (38 C) or higher, or as directed by your healthcare provider Worsening joint pain Decreased ability to move the joint or bear weight on the joint [id number] [employer]. [address] [place] [address]. All rights reserved. This information is not intended as a substitute for professional medical care. Always follow yourhealthcare professional's instructions. Follow Up Care 06/30/2022 01:30:30 With:AGNES HERNANDEZ Address: [address] [place] [id number] Business (1) When:2-4 days [facility] 03-15-2023 Emergency department Discharge summary Discharge Instructions Thank you for allowing [facility] to assist you with your healthcare needs. The following is importantdischarge information regarding your hospital visit. Diagnosis from Today's Visit Arthritis Hand pain Hand pain-swelling What to Do Next Instructions from Your Care Team Discharge Home Equipment - Ordered -- Splint, wrist, 99 month(s), 06/30/22 2:20:00 EDT Post Acute Orders No qualifying data available. You Need to Schedule the Following Appointments Follow Up with AGNES HERNANDEZ When Within 2-4 days Where: [address] [place] [id number] [facility] (1) Allergies Bee Stings (Difficulty breathing) morphine (Anaphylaxis) Eggs (Nausea and vomiting) Brintellix HYDROcodone Magnesium (Unknown) aspirin calcium carbonate (Unknown) codeine (Amnesia, Altered mental status) flu vaccines (Unknown) gabapentin (Abnormal muscle function) influenza virus vaccine, inactivated penicillin propoxyphene Medications Please ask your primary doctor or pharmacist before taking any other medication not listed, including over the counter drugs, herbal medications, vitamins and or supplements as they may interact withyour home medications. What How Much When Why Instructions Last Dose New lidocaine topical (lidocaine 5% topical patch) 1 patch(es) Topical Every day Duration: 10 Days Printed Prescription Unchanged acetaminophen (Tylenol 325 mg oral capsule) 650 Milligram by mouth Every 4 hours as needed for Pain, scale 1-3 Unchanged albuterol (albuterol MDI (90 mcg/ inh) CFC free inhalation aerosol) 2 puff(s) by inhalation Every 4 hours as needed for as needed for wheezing Unchanged atenolol (atenolol 50 mg oral tablet) 1 tab(s) by mouth Once a day (in the morning) Unchanged atorvastatin (atorvastatin 40 mg oral tablet) 1 tab(s) by mouth Daily at bedtime Unchanged benzonatate (benzonatate 200 mg oral capsule) 1 cap by mouth Three (3) times a day as needed for as needed for cough Unchanged bimatoprost ophthalmic (Lumigan 0.01% ophthalmic solution) 1 Drops Both eyes Daily at bedtime Unchanged calcium-vitamin D (calcium-vitamin D 600 mg-5 mcg (200 intl units) oral capsule) 1 cap by mouth With lunch Unchanged desvenlafaxine (desvenlafaxine 100 mg oral tablet, extended release) 1 tab(s) by mouth Once a day (in the morning) Unchanged diclofenac (diclofenac sodium 75 mg oral delayed release tablet) 1 tab(s) by mouth Two (2) times a day Unchanged DME (Pen needles) See instructions Diabetes mellitus type 2 #100 Re: BID dosing Unchanged doxepin (doxepin 100 mg oral capsule) 1 cap by mouth Daily at bedtime Unchanged furosemide (furosemide 20 mg oral tablet) 1 tab(s) by mouth Two (2) times a day Unchanged insulin isophane (NPH) - insulin regular (HumuLIN 70/ 30 KwikPen 70 units-30 units/ mL subcutaneous suspension) 35 unit(s) Subcutaneous Two (2) times daily before meals Diabetes mellitus type 2 Do not take if you do not eat Unchanged metFORMIN (metFORMIN 500 mg oral tablet EXTENDED RELEASE) 1 tab(s) by mouth Two (2) times a day Diabetes mellitus type 2 CKD (chronic kidney disease), stage III Unchanged multivitamin with minerals (Therems M oral tablet) 1 tab(s) by mouth With lunch Unchanged omega-3 polyunsaturated fatty acids (Fish Oil 1000 mg oral capsule) 2 cap by mouth Two (2) times a day Unchanged omeprazole (omeprazole 40 mg oral delayed release capsule) 1 cap by mouth Once a day (in the morning) Unchanged oxybutynin (oxybutynin 10 mg/ 24 hr oral tablet, extended release) 1 tab(s) by mouth Once a day (in the morning) Unchanged predniSONE (predniSONE 50 mg oral tablet) 1 tab(s) by mouth Once a day with a meal Acute exacerbation of COPD Bronchitis Duration: 5 Days Unchanged SITagliptin (Januvia 50 mg oral tablet) 1 tab(s) by mouth Once a day (in the morning) Please take this list to your next doctor s visit. Bring all medications you take, including over the counter medications, herbals and other supplements with you to your doctor s visit. Patients and families are reminded to discard old lists and to update any records with all medication providers or retail pharmacies. Medication Leaflets lidocaine topical (LYE noel acevedo TOP i rikki) AneCream, Bactine, Glydo, LidaMantle, Lidoderm, LidoRx, Medi-Quik Aurora, RadiaGuard, RectiCare, Regenecare GUILLEN Aurora, Solarcaine Cool Aloe What is the most important information I should know about lidocaine topical? An overdose of numbing medicine can cause fatal side effects if too much of the medicine is absorbed through your skin. Do not use large amounts of lidocaine topical, or cover treated skin areas with a bandage or plastic wrap without medical advice. Keep both used and unused lidocaine skin patches out of the reach of children or pets. The amount of lidocaine in the skin patches could be harmful to a child or pet who accidentally sucks on or swallows the patch. What is lidocaine topical? Lidocaine is a local anesthetic (numbing medication). There are many brands and forms of lidocaine available. Not all brands are listed on this leaflet. Lidocaine topical (for use on the skin) is used to reduce pain or discomfort caused by skin irritations such as sunburn, insect bites, poison pearl, poison oak, poison sumac, and minor cuts, scratches,or moe. Lidocaine topical is also used to treat rectal discomfort caused by hemorrhoids. Lidocaine intradermal device can be used in minor medical procedures such as venipuncture or peripheral intravenous cannulation. Lidocaine topical may also be used for purposes not listed in this medication guide. What should I discuss with my healthcare provider before using lidocaine topical? You should not use lidocaine topical if you are allergic to any type of numbing medicine. Fatal overdoses have occurred when numbing medicines were used without the advice of a medical doctor (such as during a cosmetic procedure like laser hair removal). However, overdose has also occurred in women treated with a numbing medicine before having a mammography. Be aware that many cosmetic procedures are performed without a medical doctor present. Tell your doctor if you have ever had: a blood cell disorder called methemoglobinemia (in you or a family member); liver disease; or if you take a heart rhythm medicine. Tell your doctor if you are or . If you apply lidocaine topical to your chest, avoid areas that may come into contact with the baby's mouth. How should I use lidocaine topical? Use this medicine exactly as directed on the label, or as it has been prescribed by your doctor. Donot apply this medicine in larger amounts than recommended. Improper use of lidocaine topical may result in . Lidocaine topical comes in many different forms (gel, spray, cream, lotion, ointment, liquid, skin patch, and others). Do not take by mouth. Topical medicine is for use only on the skin. If this medicine gets in your eyes, nose, mouth, rectum, or vagina, rinse with water. Read and carefully follow any Instructions for Use provided with your medicine. Ask your doctor or pharmacist if you do not understand these instructions. Use the smallest amount of medicine needed to numb the skin or relieve pain. Your body may absorb too much of this medicine if you use too much, if you apply it over large skin areas, or if you applyheat, bandages, or plastic wrap to treated skin areas. Skin that is cut or irritated may also absorb more topical medication than healthy skin. Do not apply this medicine to swollen skin areas or deep puncture wounds. Avoid using the medicine on skin that is raw or blistered, such as a severe burn or abrasion. Do not cover treated skin unless your doctor has told you to. Lidocaine topical may be applied with your finger tips or a cotton swab. Lidocaine intradermal device is applied by a healthcare provider. Store at room temperature away from moisture and heat. Keep both used and unused lidocaine topical skin patches out of the reach of children or pets. The amount of lidocaine in the skin patches could be harmful to a child or pet who accidentally sucks onor swallows the patch. Seek emergency medical attention if this happens. What happens if I miss a dose? Since lidocaine topical is used when needed, you may not be on a dosing schedule. Skip any missed dose if it's almost time for your next dose. Do not use two doses at one time. What happens if I overdose? Seek emergency medical attention or call the Poison Help line at . An overdose of numbing medicine can cause fatal side effects if too much of the medicine is absorbed through your skinand into your blood. Overdose symptoms may include uneven heartbeats, seizure (convulsions), slowed breathing, coma, or respiratory failure (breathing stops). Lidocaine applied to the skin is not likely to cause an overdose unless you apply more than the recommended dose. What should I avoid while using lidocaine topical? Avoid touching the sticky side of a lidocaine skin patch while applying it. Avoid accidentally injuring treated skin areas while they are numb. Avoid coming into contact with very hot or very cold surfaces. What are the possible side effects of lidocaine topical? Get emergency medical help if you have signs of an allergic reaction: hives; difficulty breathing; swelling of your face, lips, tongue, or throat. Call your doctor at once if you have: severe headache or vomiting; severe burning, stinging, or irritation where the medicine was applied; swelling or redness; sudden dizziness or drowsiness after medicine is applied; confusion, problems with speech or vision, ringing in your ears; or unusual sensations of temperature. Common side effects include: mild irritation where the medication is applied; or numbness in places where the medicine is accidentally applied. This is not a complete list of side effects and others may occur. Call your doctor for medical advice about side effects. You may report side effects to FDA at 6-236-OUT-7906. What other drugs will affect lidocaine topical? Medicine used on the skin is not likely to be affected by other drugs you use. But many drugs can interact with each other. Tell each of your health care providers about all medicines you use, including prescription and onla-ahp-netjzge medicines, vitamins, and herbal products. Where can I get more information? Your pharmacist can provide more information about lidocaine topical. Remember, keep this and all other medicines out of the reach of children, never share your medicines with others, and use this medication only for the indication prescribed. Every effort has been made to ensure that the information provided by [employer]. ('[employer]') is accurate, up-to-date, and complete, but no guarantee is made to that effect. Drug information contained herein may be time sensitive. [employer] information has been compiled for use by healthcare practitioners and consumers in the [place] and therefore [employer] does not warrant that uses outside of the [place] are appropriate, unless specifically indicated otherwise. [employer] drug information does not endorse drugs, diagnose patients or recommend therapy. [employer] drug information isan informational resource designed to assist licensed healthcare practitioners in caring for their p atients and/or to serve consumers viewing this service as a supplement to, and not a substitute for, the expertise, skill, knowledge and judgment of healthcare practitioners. The absence of a warningfor a given drug or drug combination in no way should be construed to indicate that the drug or drug combination is safe, effective or appropriate for any given patient. [facility] does not assume any responsibility for any aspect of healthcare administered with the aid of information [employer] provides. The information contained herein is not intended to cover all possible uses, directions, precautions, warnings, drug interactions, allergic reactions, or adverse effects. If you have questions about the drugs you are taking, check with your doctor, nurse or pharmacist. Copyright 4737-1570 [employer]. Version: 9.02. Revision Date: 09/01/2021. Education Materials Osteoarthritis Osteoarthritis (also called degenerative joint disease) happens when the cartilage in a joint becomes damaged and worn. This may be due to age, wear and tear, overuse of the joint, or other problems.Osteoarthritis can affect any joint. But it is most common in hands, knees, spine, hips, and feet. Symptoms include joint stiffness, pain, and swelling. Home care When a joint is more sore than usual, rest it for a day or two. Heat can help relieve stiffness. Take a hot bath or apply a heating pad for up to 30 minutes at a time. If symptoms are worse in the morning, using heat just after awakening can help relax the muscleand soothe the joints. Ice helps relieve pain and swelling. It is often used after activity. Use a cold pack wrapped in a thin cloth on the joint for 10 to 15 minutes at a time. Alternating hot and cold can also help relieve pain. Try this for 20 minutes at a time, several times per day. Exercise helps prevent the muscles and ligaments around the joint from becoming weak. It also helpsmaintain function in the joint. Be as active as you can. Talk to your healthcare provider about what activity program is best for you. Excess weight puts a lot of extra strain on weight-bearing joints of the lower back, hips, knees, feet and ankles. If you are overweight, talk to your healthcare provider about a safe and effective weight loss program. Use anti-inflammatory medicines as prescribed for pain. This includes acetaminophen or NSAIDs such as ibuprofen or naproxen. If needed, topical or injected medicines may be recommended. Talk to your healthcare provider if these options are not enough to manage your pain. Talk with your healthcare provider about devices that might help improve your function and reduce pain. Follow-up care Follow up with your healthcare provider as advised by our staff. When to seek medical advice Call your healthcare provider right away if any of these occur: Redness or swelling of a painful joint Discharge or pus from a painful joint Fever of 100.4 F (38 C) or higher, or as directed by your healthcare provider Worsening joint pain Decreased ability to move the joint or bear weight on the joint [id number] [employer]. [address] [place] [address]. All rights reserved. This information is not intended as a substitute for professional medical care. Always follow yourhealthcare professional's instructions. Additional Information VACCINATE! IT SAVES LIVES! Members of the community who have not yet received the COVID-19 vaccine and would like to receive it can visit one of [facility] vaccine clinics. There are many vaccine clinic locations within the [facility]. For locations and available times, please visit www.gettheshot.coronavirus.[place].gov/. It is important to note that some COVID mobile vaccine clinics are held outdoors and may be canceled in rainy or stormy conditions. To learn more about pediatric vaccinations (ages 5-11), we invite you to visit the [facility] webpage. [email or web address]/pages/[email or web address] [email or web address] learn more about the COVID-19 vaccine, we invite you to visit the CDC website for a list of frequently asked questions. https://www.cdc.gov/coronavirus/2019-ncov/vaccines/faq.html [facility] Patient Portal Access Instructions: Stay connected with your healthcare team and access your personal medical information anytime with the [facility] Patient Portal. If you would like a full copy of your medical records please contact the [facility] Medical Records Department Tuesday through Tuesday between 8a.m. and 4:30p.m. Please follow the directions below to access the portal: 1.Access the email account you provided upon registration to the [facility].2.Look for an invitation email from [facility].3.Open the email and access the invitation link: Accept Invitation to [facility]4.Fill in the required rodriges to create your account. Sign into [email or web address] with your username and password that you created in the above steps to stay up to date. You can then view a summary of results, a summary of your visits, and the ability to download your summaries to your computer or send the information securely to a physician. Remember that your healthcare information is confidential, so carefully consider who you will allow to register on the [facility] Patient Portal for access to your information. You can also access the [facility] Patient Portal on the TeamLINKS. Simply click on Health Records under [employer] and then click on the [employer] logo. HOW TO SAFELY DISPOSE OF PRESCRIPTION MEDICATIONS Please use one of the following methods to safely dispose of your unused medications. 1.Use a drug disposal kit: the drug disposal pouch allows you to safely discard your old and unuseddrugs. Ask your nurse to give you one when you are discharged.2.Visit a local take-back location: Many local pharmacies and police departments have programs that collect old and unwanted prescriptiondrugs. Call your local pharmacy or go to http://[employer]6Z7Fw4x to find one close to you.3.Make use of household items: Use cat litter or old coffee grounds to dispose medications if other options arenot available. Mix your drugs with these household products, seal them in an airtight container andthrow it into the garbage. Call [facility]: [phone] to be sure your drugs can be disposed of in this way. Some medicines may require a different approach.4.Never flush your medications down the toilet. IF YOU HAVE BEEN PRESCRIBED AN OPIOIDS FOR PAIN If you have been prescribed an opioid (such as hydrocodone, oxycodone or morphine), it is critical to understand the possible side effects and risks of opioid pain medications. Even when taken as directed, opioids can have several side effects including: Tolerance, meaning you might need to take more of a medication for the same pain relief. Nausea, vomiting and/or constipation. Sleepiness, dizziness, dry mouth, confusion, depression or itching. Physical dependence, meaning you have withdrawal symptoms when a medication is stopped ? this can develop within a few days. KNOW YOUR RESPONSIBILITIES It is important to know exactly how much and how often to take the opioid pain medications you are prescribed. Never take opioids in higher amounts or more often than prescribed. Do not combine opioids with alcohol or other drugs that cause drowsiness, such as benzodiazepines, also known as benzos,including diazepam and alprazolam, muscle relaxants or sleep aids. Never sell or share prescriptionopioids. This is illegal. Store opioids in a secure place and out of reach of others (including children, family, friends and visitors). The last page(s) of this document has been signed and retained as a CHART COPY Signatures Patient Education Materials Osteoarthritis Medication Leaflets lidocaine topical My discharge plan and instructions have been reviewed and explained to me and IJENNIFER PAMELA A understand my current condition and have read and understand these discharge instructions. I have received a written copy of the plan/instructions. If I have questions, I am aware that I should contact my doctor. Patient/Vault Person Signature: Date/Time: Relationship to Patient: Witness Name/Signature: Date/Time: [facility]03-15-2023 Note ORIGINAL EXAMINATION: THREE XRAY VIEWS OF THE RIGHT HAND 06/30/2022 2:02 am COMPARISON: None. HISTORY: ORDERING SYSTEM PROVIDED HISTORY: Reason for Exam: And pain, no injury. FINDINGS: No acute fracture or dislocation. There are severe degenerative changes at the radiocarpal joint. Moderate carpocarpal joint degenerative change. Severe degenerative change at the proximal interphalangeal joint of the 2nd digit. Bfzf-qw-[id number] additional interphalangeal joint degenerative change. No significant soft tissue swelling. IMPRESSION: No acute fracture or dislocation. Moderate to severe degenerative changes as described above. I have personally reviewed the images of this examination, and agree with the resident's findings and interpretation. Interpreted by: Demarco Gardner MD Preliminary Report By: Quincy Soto Electronically signed By Demarco Gardner MD Dictated Date: 06/30/2022 2:06:56 AM Prelim Date: 06/30/2022 2:13:26 AM Sign Date: 06/30/2022 2:19:18 AM Ordering Provider: [facility]03-15-2023 Note ORIGINAL EXAMINATION: THREE XRAY VIEWS OF THE RIGHT HAND 06/30/2022 2:02 am COMPARISON: None. HISTORY: ORDERING SYSTEM PROVIDED HISTORY: Reason for Exam: And pain, no injury. FINDINGS: No acute fracture or dislocation. There are severe degenerative changes at the radiocarpal joint. Moderate carpocarpal joint degenerative change. Severe degenerative change at the proximal interphalangeal joint of the 2nd digit. Htjv-fu-yfinwohm additional interphalangeal joint degenerative change. No significant soft tissue swelling. IMPRESSION: No acute fracture or dislocation. Moderate to severe degenerative changes as described above. I have personally reviewed the images of this examination, and agree with the resident's findings and interpretation. Interpreted by: Demarco Gardner MD Preliminary Report By: Quincy Soto Electronically signed By Demarco Gardner MD Dictated Date: 06/30/2022 2:06:56 AM Prelim Date: 06/30/2022 2:13:26 AM Sign Date: 06/30/2022 2:19:18 AM Ordering Provider: [facility]04-05-2022 Hospital Discharge instructions Patient Education 07/21/2021 19:44:04 COPD Flare COPD Flare You have had a flare-up of your COPD. COPD (chronic obstructive pulmonary disease) is a common lung disease. It causes your airways to get irritated and narrower. This makes it harder for you to breathe. Emphysema and chronic bronchitis are both types of COPD. This is a long-term (chronic) condition. This means you always have it. Sometimes it gets worse. When this happens, it is called a flare-up. Symptoms of COPD People with COPD may have symptoms most of the time. In a flare-up, your symptoms get worse. These symptoms may mean you are having a flare-up: Shortness of breath, shallow or rapid breathing, or wheezing that gets worse Lung infection Cough that gets worse More mucus, thicker mucus or mucus of a different color Tiredness, less energy, or trouble doing your normal activities Fever Chest tightness Your symptoms don t get better even when you use your normal medicines, inhalers, and nebulizer Trouble talking You feel confused Causes of flare-ups Unfortunately, a flare-up can happen even if you did everything right. And even if you followed your healthcare provider s instructions. Some causes of flare- ups are: Smoking or secondhand smoke Colds, the flu, or respiratory infections Air pollution Sudden change in the weather Dust, irritating chemicals, or strong fumes Not taking your medicines as prescribed Home care Here are some things you can do at home to treat a flare-up: Try not to panic. This makes it harder to breathe, and keeps you from doing the right things. Don t smoke or be around others who are smoking. Try to drink more fluids than normal during a flare-up, unless your healthcare provider has told you not to because of heart and kidney problems. More fluids can help loosen the mucus. Use your inhalers and nebulizer, if you have one, as you have been told to. If you were given antibiotics, take them until they are used up or your provider tells you to stop.It s important to finish the antibiotics, even though you feel better. This will make sure the infection has cleared. If you were given prednisone or another steroid, finish it even if you feel better. Preventing a flare-up Flare-ups happen. But the best way to treat one is to prevent it before it starts. Here are some pointers: Don t smoke or be around others who are smoking. Take your medicines as discussed with your healthcare provider. Talk with your provider about getting a flu shot every year. Also find out if you need a pneumonia shot. If there is a weather advisory warning to stay indoors, try to stay inside when possible. Try to eat healthy, exercise, and get plenty of sleep. Try to stay away from things that normally set you off. These include dust, chemical fumes, hairsprays, or strong perfumes. Follow-up care Follow up with your healthcare provider, or as advised. If a culture was done, you will be told if your treatment needs to be changed. You can call as directed for the results. If X-rays were done, you will be told of any new findings that may affect your care. Call 911 Call 911 if any of these occur: You have trouble breathing You feel confused or it s hard to wake you up You faint or lose consciousness You have a rapid heart rate You have new pain in your chest, arm, shoulder, neck, or upper back When to seek medical advice Call your healthcare provider right away if any of these occur: Wheezing or shortness of breath gets worse You need to use your inhalers more often than normal without relief Fever of 100.4 F (38 C) or higher, or as directed by your healthcare provider Coughing up lots of dark-colored or bloody mucus (sputum) Chest pain with each breath You don't start to get better within 24 hours Swelling of your ankles gets worse Dizziness or weakness [id number] [employer]. [address] [place] [address], [place] [address]. All rights reserved. This information is not intended as a substitute for professional medical care. Always follow yourhealthcare professional's instructions. 07/21/2021 19:43:56 BRONCHITIS w/ Wheezing (Adult) Bronchitis With Wheezing (Viral Or Bacterial: Adult) Bronchitis is an infection of the air passages. It often occurs during the common cold and is usually caused by a virus. Symptoms include cough with mucus (phlegm) and low-grade fever. If there is a lot of inflammation, air flow is restricted. The air passages may also go into spasm,especially if you are an asthmatic. This causes wheezing and difficulty breathing even in persons who do not have asthma. Bronchitis usually lasts 7-14 days. The wheezing should improve with treatment during the first week. An inhaler is often prescribed to relax the air passages and stop wheezing. Antibiotics will be prescribed if your doctor thinks there is also a secondary bacterial infection. Home Care: If symptoms are severe, rest at home for the first 2-3 days. When resuming activity, don't let yourself become overly tired. Do not smoke and avoid exposure to the smoke of others. You may use acetaminophen (Tylenol) or ibuprofen (Motrin, Advil) to control fever, unless another medicine was prescribed. [NOTE: If you have chronic liver or kidney disease or ever had a stomach ulcer or GI bleeding, talk with your doctor before using these medicines.] (Aspirin should never be used in anyone under 18 years of age who is ill with a fever. It may cause severe liver damage.) Your appetite may be poor so a light diet is fine. Avoid dehydration by drinking 6-8 glasses of fluids per day (water, soft, drinks, juices, tea, soup, etc.). Extra fluids will help loosen secretionsin the lungs. Fmlq-gcz-mexhsrj cough medicines that contain dextromethorphan (such as Robitussin DM) and decongestants (Actifed or Sudafed) may help relieve cough and congestion. [NOTE: Do not use decongestants ifyou have high blood pressure.] If you were given an inhaler, use it exactly as directed. If you need to use it more often than prescribed, your condition may be worsening. Contact your doctor or this facility. If prescribed, finish all antibiotic medicine, even if you are feeling better after only a few days. Follow Up With Your Doctor Or As Directed If You Are Not Starting To Feel Better After Three Days. [NOTE: If you are age 65 or older, or if you have chronic asthma or COPD, we recommend a pneumococcal vaccination every five years and a yearly influenza vaccination (flu shot) every . Ask yourdoctor about this. If you had an x- ray or EKG (electrocardiogram), it will be reviewed by a specialist. You will be notified of any new findings that may affect your care.] Get Prompt Medical Attention If Any Of The Following Occur: Increased wheezing, shortness of breath or pain with breathing Fever of 100.4 F (38 C) oral or higher, not better with fever medication Coughing up blood or increasing amounts of colored sputum Weakness, drowsiness, headache, facial pain, ear pain or a stiff neck Lower leg swelling, tenderness, redness or pain [phone] [employer]. [address] [place] [address], [place] [address]. All rights reserved. This information is not intended as a substitute for professional medical care. Always follow yourhealthcare professional's instructions. Follow Up Care 07/21/2021 15:32:39 With:AGNES HERNANDEZ Address: [address] [place] [phone]- Business (1) When:2-4 days Comments:Return to ED if symptoms worsen [facility] 03-26-2022 Hospital Discharge instructions Patient Education 07/11/2021 15:44:57 Muscle Strain, Extremity Muscle Strain in the Extremities A muscle strain is a stretching and tearing of muscle fibers. This causes pain, especially when youmove that muscle. There may also be some swelling and bruising. Home care Keep the hurt area raised above heart level to reduce pain and swelling. This is especially important during the first 48 hours. Apply an ice pack over the injured area for 15 to 20 minutes every 3 to 6 hours. You should do thisfor the first 24 to 48 hours. You can make an ice pack by filling a plastic bag that seals at the top with ice cubes and then wrapping it with a thin towel. Be careful not to injure your skin with the ice treatments. Ice should never be applied directly to skin. Continue the use of ice packs for relief of pain and swelling as needed. After 48 hours, apply heat (warm shower or warm bath) for 15 to20 minutes several times a day, or alternate ice and heat. You may use jkxn-eys-icivnew pain medicine to control pain, unless another medicine was prescribed.If you have chronic liver or kidney disease or ever had a stomach ulcer or gastrointestinal bleeding, talk with your healthcare provider before using these medicines. For leg strains: If crutches have been recommended, don t put full weight on the hurt leg until youcan do so without pain. You can return to sports when you are able to hop and run on the injured leg without pain. Follow-up care Follow up with your healthcare provider, or as advised. When to seek medical advice Call your healthcare provider right away if any of these occur: The toes of the injured leg become swollen, cold, blue, numb, or tingly Pain or swelling increases [phone] [employer]. [address] [place] [address], [place] [address]. All rights reserved. This information is not intended as a substitute for professional medical care. Always follow yourhealthcare professional's instructions. Follow Up Care 07/11/2021 14:50:24 With:AGNES HERNANDEZ DO Address: [address] [place] [phone]- When:2-4 days With:Go to emergency room if symptoms worsen Address:Unknown When:2-4 days [facility] 01-12-2022 Hospital Discharge instructions Patient Education 04/29/2021 18:29:51 COVID-19 Prevent the Spread of COVID-19 If You Are Sick (09/04/2019) (CUSTOM) Prevent the Spread of COVID-19 If You Are Sick Accessible version: https://www.cdc.gov/coronavirus/2019-ncov/xi-vwe-xun-sick/fqldv-kpeb-iayw.html If you are sick with COVID-19 or think you might have COVID-19, follow the steps below to help protect other people in your home and community. Stay home except to get medical care. Stay home. Most people with COVID-19 have mild illness and are able to recover at home without medical care. Do not leave your home, except to get medical care. Do not visit public areas. Take care of yourself. Get rest and stay hydrated. Get medical care when needed. Call your doctor before you go to their office for care. But, if you have trouble breathing or other concerning symptoms, call 911 for immediate help. Avoid public transportation, ride-sharing, or taxis. Separate yourself from other people and pets in your home. As much as possible, stay in a specific room and away from other people and pets in your home. Also, you should use a separate bathroom, if available. If you need to be around other people or animalsin or outside of the home, wear a cloth face covering. See COVID-19 and Animals if you have questions about pets: https://www.cdc.gov/coronavirus/2019ncov/faq.html#IJAQR39ezejbju Monitor your symptoms. Common symptoms of COVID-19 include fever and cough. Trouble breathing is a more serious symptom that means you should get medical attention. Follow care instructions from your healthcare provider and local health department. Your local health authorities will give instructions on checking your symptoms and reporting information. If you develop emergency warning signs for COVID-19 get medical attention immediately. Emergency warning signs include*: Trouble breathing Persistent pain or pressure in the chest New confusion or not able to be woken Bluish lips or face *This list is not all inclusive. Please consult your medical provider for any other symptoms that are severe or concerning to you. Call 911 if you have a medical emergency. If you have a medical emergency and need to call 911, notify the nuclear control room operator that you have or think you might have, COVID-19. If possible, put on a facemask before medical help arrives Call ahead before visiting your doctor. Call ahead. Many medical visits for routine care are being postponed or done by phone or telemedicine. If you have a medical appointment that cannot be postponed, call your doctor s office. This will help the office protect themselves and other patients. If you are sick, wear a cloth covering over your nose and mouth. You should wear a cloth face covering over your nose and mouth if you must be around other people or animals, including pets (even at home). You don t need to wear the cloth face covering if you are alone. If you can t put on a cloth face covering (because of trouble breathing for example), cover your coughs and sneezes in some other way.Try to stay at least 6 feet away from other people. This will help protect the people around you. Note: During the COVID-19 pandemic, medical grade facemasks are reserved for healthcare workers andsome first responders. You may need to make a cloth face covering using a scarf or bandana. Cover your coughs and sneezes. Cover your mouth and nose with a tissue when you cough or sneeze. Throw used tissues in a lined trash can. Immediately wash your hands with soap and water for at least 20 seconds. If soap and water are not available, clean your hands with an alcohol-based hand topstitcher lockstitch that contains at least 60% alcohol. Clean your hands often. Wash your hands often with soap and water for at least 20 seconds. This is especially important after blowing your nose, coughing, or sneezing; going to the bathroom; and before eating or preparing food. Use hand topstitcher lockstitch if soap and water are not available. Use an alcohol-based hand topstitcher lockstitch with atleast 60% alcohol, covering all surfaces of your hands and rubbing them together until they feel dry. Soap and water are the best option, especially if your hands are visibly dirty. \ Avoid touching your eyes, nose, and mouth with unwashed hands. Avoid sharing personal household items. Do not share dishes, drinking glasses, cups, eating utensils, towels, or bedding with other people in your home. Wash these items thoroughly after using them with soap and water or put them in the card writer hand. Clean all high-touch surfaces everyday. Clean and disinfect high-touch surfaces in your sick room and bathroom. Let someone else clean and disinfect surfaces in common areas, but not your bedroom and bathroom. If a caregiver or other person needs to clean and disinfect a sick person s bedroom or bathroom, they should do so on an as-needed basis. The caregiver/other person should wear a mask and wait as long as possible after the sick person has used the bathroom High-touch surfaces include phones, remote controls, counters, tabletops, doorknobs, bathroom fixtures, toilets, keyboards, tablets, and bedside tables. Clean and disinfect areas that may have blood, stool, or body fluids on them. Use household wool mixer and disinfectants. Clean the area or item with soap and water or another detergent if it is dirty. Then use a household disinfectant. Be sure to follow the instructions on the label to ensure safe and effective use of the product. Many products recommend keeping the surface wet for several minutes to ensure germs are killed. Many also recommend precautions such as wearing gloves and making sure you have good ventilation during use of the product. Most EPA-registered household disinfectants should be effective. How to discontinue home isolation. People with COVID-19 who have stayed home (home isolated) can stop home isolation under the following conditions: If you will not have a test to determine if you are still contagious, you can leave home after these three things have happened: You have had no fever for at least 72 hours (that is three full days of no fever without the use ofmedicine that reduces fevers) AND other symptoms have improved (for example, when your cough or shortness of breath has improved) AND at least 10 days have passed since your symptoms first appeared. If you will be tested to determine if you are still contagious, you can leave home after these three things have happened: You no longer have a fever (without the use of medicine that reduces fevers) AND other symptoms have improved (for example, when your cough or shortness of breath has improved) AND you received two negative tests in a row, 24 hours apart. Your doctor will follow CDC guidelines. In all cases, follow the guidance of your healthcare provider and local health department. The decision to stop home isolation should be made in consultation with your healthcare provider and state and local health departments. Local decisions depend on local circumstances. cdc.gov/coronavirus Follow Up Care 04/29/2021 15:01:28 With:AGNES HERNANDEZ DO Address: [address] [place] [phone]- When:2-4 days [facility] 01-06-2022 Hospital Discharge instructions Patient Education 04/23/2021 13:11:07 COVID-19 Prevent the Spread of COVID-19 If You Are Sick (09/04/2019)(CUSTOM) Prevent the Spread of COVID-19 If You Are Sick Accessible version: https://www.cdc.gov/coronavirus/2019-ncov/gc-emc-jpm-sick/fmefv-jszs-dbaj.html If you are sick with COVID-19 or think you might have COVID-19, follow the steps below to help protect other people in your home and community. Stay home except to get medical care. Stay home. Most people with COVID-19 have mild illness and are able to recover at home without medical care. Do not leave your home, except to get medical care. Do not visit public areas. Take care of yourself. Get rest and stay hydrated. Get medical care when needed. Call your doctor before you go to their office for care. But, if you have trouble breathing or other concerning symptoms, call 911 for immediate help. Avoid public transportation, ride-sharing, or taxis. Separate yourself from other people and pets in your home. As much as possible, stay in a specific room and away from other people and pets in your home. Also, you should use a separate bathroom, if available. If you need to be around other people or animalsin or outside of the home, wear a cloth face covering. See COVID-19 and Animals if you have questions about pets: https://www.cdc.gov/coronavirus/2019ncov/faq.html#SBXKZ06ifgdudm Monitor your symptoms. Common symptoms of COVID-19 include fever and cough. Trouble breathing is a more serious symptom that means you should get medical attention. Follow care instructions from your healthcare provider and local health department. Your local health authorities will give instructions on checking your symptoms and reporting information. If you develop emergency warning signs for COVID-19 get medical attention immediately. Emergency warning signs include*: Trouble breathing Persistent pain or pressure in the chest New confusion or not able to be woken Bluish lips or face *This list is not all inclusive. Please consult your medical provider for any other symptoms that are severe or concerning to you. Call 911 if you have a medical emergency. If you have a medical emergency and need to call 911, notify the nuclear control room operator that you have or think you might have, COVID-19. If possible, put on a facemask before medical help arrives Call ahead before visiting your doctor. Call ahead. Many medical visits for routine care are being postponed or done by phone or telemedicine. If you have a medical appointment that cannot be postponed, call your doctor s office. This will help the office protect themselves and other patients. If you are sick, wear a cloth covering over your nose and mouth. You should wear a cloth face covering over your nose and mouth if you must be around other people or animals, including pets (even at home). You don t need to wear the cloth face covering if you are alone. If you can t put on a cloth face covering (because of trouble breathing for example), cover your coughs and sneezes in some other way.Try to stay at least 6 feet away from other people. This will help protect the people around you. Note: During the COVID-19 pandemic, medical grade facemasks are reserved for healthcare workers andsome first responders. You may need to make a cloth face covering using a scarf or bandana. Cover your coughs and sneezes. Cover your mouth and nose with a tissue when you cough or sneeze. Throw used tissues in a lined trash can. Immediately wash your hands with soap and water for at least 20 seconds. If soap and water are not available, clean your hands with an alcohol-based hand topstitcher lockstitch that contains at least 60% alcohol. Clean your hands often. Wash your hands often with soap and water for at least 20 seconds. This is especially important after blowing your nose, coughing, or sneezing; going to the bathroom; and before eating or preparing food. Use hand topstitcher lockstitch if soap and water are not available. Use an alcohol-based hand topstitcher lockstitch with atleast 60% alcohol, covering all surfaces of your hands and rubbing them together until they feel dry. Soap and water are the best option, especially if your hands are visibly dirty. \ Avoid touching your eyes, nose, and mouth with unwashed hands. Avoid sharing personal household items. Do not share dishes, drinking glasses, cups, eating utensils, towels, or bedding with other people in your home. Wash these items thoroughly after using them with soap and water or put them in the card writer hand. Clean all high-touch surfaces everyday. Clean and disinfect high-touch surfaces in your sick room and bathroom. Let someone else clean and disinfect surfaces in common areas, but not your bedroom and bathroom. If a caregiver or other person needs to clean and disinfect a sick person s bedroom or bathroom, they should do so on an as-needed basis. The caregiver/other person should wear a mask and wait as long as possible after the sick person has used the bathroom High-touch surfaces include phones, remote controls, counters, tabletops, doorknobs, bathroom fixtures, toilets, keyboards, tablets, and bedside tables. Clean and disinfect areas that may have blood, stool, or body fluids on them. Use household wool mixer and disinfectants. Clean the area or item with soap and water or another detergent if it is dirty. Then use a household disinfectant. Be sure to follow the instructions on the label to ensure safe and effective use of the product. Many products recommend keeping the surface wet for several minutes to ensure germs are killed. Many also recommend precautions such as wearing gloves and making sure you have good ventilation during use of the product. Most EPA-registered household disinfectants should be effective. How to discontinue home isolation. People with COVID-19 who have stayed home (home isolated) can stop home isolation under the following conditions: If you will not have a test to determine if you are still contagious, you can leave home after these three things have happened: You have had no fever for at least 72 hours (that is three full days of no fever without the use ofmedicine that reduces fevers) AND other symptoms have improved (for example, when your cough or shortness of breath has improved) AND at least 10 days have passed since your symptoms first appeared. If you will be tested to determine if you are still contagious, you can leave home after these three things have happened: You no longer have a fever (without the use of medicine that reduces fevers) AND other symptoms have improved (for example, when your cough or shortness of breath has improved) AND you received two negative tests in a row, 24 hours apart. Your doctor will follow CDC guidelines. In all cases, follow the guidance of your healthcare provider and local health department. The decision to stop home isolation should be made in consultation with your healthcare provider and state and local health departments. Local decisions depend on local circumstances. cdc.gov/coronavirus Follow Up Care 04/23/2021 12:48:27 With:AGNES HERNANDEZ DO Address: [address] [place] [phone] When:2-4 days only if needed [facility] 11-09-2021 Hospital Discharge instructions Patient Education 02/24/2021 12:37:38 Form - Daily Diabetes Record Daily Diabetes Record Week of Date: BREAKFAST, BG/Medications: / LUNCH, BG/Medications: / DINNER, BG/Medications: / BEDTIME, BG/Medications: / Date: BREAKFAST, BG/Medications: / LUNCH, BG/Medications: / DINNER, BG/Medications: / BEDTIME, BG/Medications: / Date: BREAKFAST, BG/Medications: / LUNCH, BG/Medications: / DINNER, BG/Medications: / BEDTIME, BG/Medications: / Date: BREAKFAST, BG/Medications: / LUNCH, BG/Medications: / DINNER, BG/Medications: / BEDTIME, BG/Medications: / Date: BREAKFAST, BG/Medications: / LUNCH, BG/Medications: / DINNER, BG/Medications: / BEDTIME, BG/Medications: / Date: BREAKFAST, BG/Medications: / LUNCH, BG/Medications: / DINNER, BG/Medications: / BEDTIME, BG/Medications: / Date: BREAKFAST, BG/Medications: / LUNCH, BG/Medications: / DINNER, BG/Medications: / BEDTIME, BG/Medications: / Notes: Document Released: 03/08/2005 Document Revised: 06/26/2012 Document Reviewed: 12/31/2009 [employer] Patient Information 2015 [employer]. This information is not intended to replace advicegiven to you by your health care provider. Make sure you discuss any questions you have with your health care provider. 02/24/2021 12:37:00 Blood Glucose Monitoring, Adult Blood Glucose Monitoring, Adult Monitoring your blood sugar (glucose) is an important part of managing your diabetes (diabetes mellitus). Blood glucose monitoring involves checking your blood glucose as often as directed and keeping a record (log) of your results over time. Checking your blood glucose regularly and keeping a blood glucose log can: Help you and your health care provider adjust your diabetes management plan as needed, including your medicines or insulin. Help you understand how food, exercise, illnesses, and medicines affect your blood glucose. Let you know what your blood glucose is at any time. You can quickly find out if you have low bloodglucose (hypoglycemia) or high blood glucose (hyperglycemia). Your health care provider will set individualized treatment goals for you. Your goals will be basedon your age, other medical conditions you have, and how you respond to diabetes treatment. Generally, the goal of treatment is to maintain the following blood glucose levels: Before meals (preprandial): 80 130 mg/dL (4.4 7.2 mmol/L). After meals (postprandial): below 180 mg/dL (10 mmol/L). A1c level: less than 7%. Supplies needed: Blood glucose meter. Test strips for your meter. Each meter has its own strips. You must use the strips that came with your meter. A needle to prick your finger (lancet). Do not use a lancet more than one time. A device that holds the lancet (lancing device). A journal or log book to write down your results. How to check your blood glucose 1.Wash your hands with soap and water. 2.Prick the side of your finger (not the tip) with the lancet. Use a different finger each time. 3.Gently rub the finger until a small drop of blood appears. 4.Follow instructions that come with your meter for inserting the test strip, applying blood to thestrip, and using your blood glucose meter. 5.Write down your result and any notes. Some meters allow you to use areas of your body other than your finger (alternative sites) to test your blood. The most common alternative sites are: Forearm. Thigh. Palm of the hand. If you think you may have hypoglycemia, or if you have a history of not knowing when your blood glucose is getting low (hypoglycemia unawareness), do not use alternative sites. Use your finger instead. Alternative sites may not be as accurate as the fingers, because blood flow is slower in these areas. This means that the result you get may be delayed, and it may be different from the result thatyou would get from your finger. Follow these instructions at home: Blood glucose log Every time you check your blood glucose, write down your result. Also write down any notes about things that may be affecting your blood glucose, such as your diet and exercise for the day. This information can help you and your health care provider: ?Look for patterns in your blood glucose over time. ?Adjust your diabetes management plan as needed. Check if your meter allows you to download your records to a computer. Most glucose meters store a record of glucose readings in the meter. If you have type 1 diabetes: Check your blood glucose 2 or more times a day. Also check your blood glucose: ?Before every insulin injection. ?Before and after exercise. ?Before meals. ?2 hours after a meal. ?Occasionally between 2:00 a.m. and 3:00 a.m., as directed. ?Before potentially dangerous tasks, like driving or using heavy machinery. ?At bedtime. You may need to check your blood glucose more often, up to 6 10 times a day, if you: ?Use an insulin pump. ?Need multiple daily injections (MDI). ?Have diabetes that is not well-controlled. ?Are ill. ?Have a history of severe hypoglycemia. ?Have hypoglycemia unawareness. If you have type 2 diabetes: If you take insulin or other diabetes medicines, check your blood glucose 2 or more times a day. If you are on intensive insulin therapy, check your blood glucose 4 or more times a day. Occasionally, you may also need to check between 2:00 a.m. and 3:00 a.m., as directed. Also check your blood glucose: ?Before and after exercise. ?Before potentially dangerous tasks, like driving or using heavy machinery. You may need to check your blood glucose more often if: ?Your medicine is being adjusted. ?Your diabetes is not well-controlled. ?You are ill. General tips Always keep your supplies with you. If you have questions or need help, all blood glucose meters have a 24-hour hotline phone number that you can call. You may also contact your health care provider. After you use a few boxes of test strips, adjust (calibrate) your blood glucose meter by following instructions that came with your meter. Contact a health care provider if: Your blood glucose is at or above 240 mg/dL (13.3 mmol/L) for 2 days in a row. You have been sick or have had a fever for 2 days or longer, and you are not getting better. You have any of the following problems for more than 6 hours: ?You cannot eat or drink. ?You have nausea or vomiting. ?You have diarrhea. Get help right away if: Your blood glucose is lower than 54 mg/dL (3 mmol/L). You become confused or you have trouble thinking clearly. You have difficulty breathing. You have moderate or large ketone levels in your urine. Summary Monitoring your blood sugar (glucose) is an important part of managing your diabetes (diabetes mellitus). Blood glucose monitoring involves checking your blood glucose as often as directed and keeping a record (log) of your results over time. Your health care provider will set individualized treatment goals for you. Your goals will be basedon your age, other medical conditions you have, and how you respond to diabetes treatment. Every time you check your blood glucose, write down your result. Also write down any notes about things that may be affecting your blood glucose, such as your diet and exercise for the day. This information is not intended to replace advice given to you by your health care provider. Make sure you discuss any questions you have with your health care provider. Document Released: 04/06/2004 Document Revised: 01/26/2019 Document Reviewed: 09/13/2016 [employer] Patient Education 2020 [employer]. 02/24/2021 12:15:02 Insulin Injection Instructions, Using Insulin Pens, Adult Insulin Injection Instructions, Using Insulin Pens, Adult A subcutaneous injection is a shot of medicine that is injected into the layer of fat and tissue between skin and muscle. People with type 1 diabetes must take insulin because their bodies do not make it. People with type 2 diabetes may need to take insulin. There are many different types of insulin. The type of insulin that you take may determine how manyinjections you give yourself and when you need to give the injections. Supplies needed: Soap and water to wash hands. Your insulin pen. A new, unused needle. Alcohol wipes. A disposal container that is meant for sharp items (sharps container), such as an empty plastic bottle with a cover. How to choose a site for injection The body absorbs insulin differently, depending on where the insulin is injected (injection site). It is best to inject insulin into the same body area each time (for example, always in the abdomen),but you should use a different spot in that area for each injection. Do not inject the insulin in the same spot each time. There are five main areas that can be used for injecting. These areas include: Abdomen. This is the preferred area. Front of thigh. Upper, outer side of thigh. Upper, outer side of arm. Upper, outer part of buttock. How to use an insulin pen First, follow the steps for Get ready, then continue with the steps for Inject the insulin. Get ready 1.Wash your hands with soap and water. If soap and water are not available, use hand topstitcher lockstitch. 2.Before you give yourself an insulin injection, be sure to test your blood sugar level (blood glucose level) and write down that number. Follow any instructions from your health care provider about what to do if your blood glucose level is higher or lower than your normal range. 3.Check the expiration date and the type of insulin that is in the pen. 4.If you are using CLEAR insulin, check to see that it is clear and free of clumps. 5.If you are using CLOUDY insulin, do not shake the pen to get the injection ready. Instead, get itready in one of these ways: Gently roll the pen between your palms several times. Tip the pen up and down several times. 6.Remove the cap from the insulin pen. 7.Use an alcohol wipe to clean the rubber tip of the pen. 8.Remove the protective paper tab from the disposable needle. Do not let the needle touch anything. 9.Screw a new, unused needle onto the pen. 10.Remove the outer plastic needle cover. Do not throw away the outer plastic cover yet. If the pen uses a special safety needle, leave the inner needle shield in place. If the pen does not use a special safety needle, remove the inner plastic cover from the needle. 11.Follow the cmo & president's instructions to prime the insulin pen with the volume of insulin needed. Hold the pen with the needle pointing up, and push the button on the opposite end of the pen until a drop of insulin appears at the needle tip. If no insulin appears, repeat this step. 12.Turn the button (dial) to the number of units of insulin that you will be injecting. Inject the insulin 1.Use an alcohol wipe to clean the site where you will be injecting the needle. Let the site air-dry. 2.Hold the pen in the palm of your writing hand like a pencil. 3.If directed by your health care provider, use your other hand to pinch and hold about an inch (2.5 cm) of skin at the injection site. Do not directly touch the cleaned part of the skin. 4.Gently but quickly, use your writing hand to put the needle straight into the skin. The needle should be at a 90-degree angle (perpendicular) to the skin. 5.When the needle is completely inserted into the skin, use your thumb or index finger of your writing hand to push the top button of the pen down all the way to inject the insulin. 6.Let go of the skin that you are pinching. Continue to hold the pen in place with your writing hand. 7.Wait 10 seconds, then pull the needle straight out of the skin. This will allow all of the insulin to go from the pen and needle into your body. 8.Carefully put the larger (outer) plastic cover of the needle back over the needle, then unscrew the capped needle and discard it in a sharps container, such as an empty plastic bottle with a cover. 9.Put the plastic cap back on the insulin pen. How to throw away supplies Discard all used needles in a puncture-proof sharps disposal container. You can ask your local pharmacy about where you can get this kind of disposal container, or you can use an empty plastic liquidlaundry detergent bottle that has a cover. Follow the disposal regulations for the area where you live. Do not use any needle more than one time. Throw away empty disposable pens in the regular trash. Questions to ask your health care provider How often should I be taking insulin? How often should I check my blood glucose? What amount of insulin should I be taking at each time? What are the side effects? What should I do if my blood glucose is too high? What should I do if my blood glucose is too low? What should I do if I forget to take my insulin? What number should I call if I have questions? Where to find more information [place] [employer] (ADA): www.diabetes.org [place] [employer] (AADE) Patient Resources: https://www.diabeteseducator.org Summary A subcutaneous injection is a shot of medicine that is injected into the layer of fat and tissue between skin and muscle. Before you give yourself an insulin injection, be sure to test your blood sugar level (blood glucose level) and write down that number. Check the expiration date and the type of insulin that is in the pen. The type of insulin that you take may determine how many injections you give yourself and when you need to give the injections. It is best to inject insulin into the same body area each time (for example, always in the abdomen), but you should use a different spot in that area for each injection. This information is not intended to replace advice given to you by your health care provider. Make sure you discuss any questions you have with your health care provider. Document Released: 05/07/2016 Document Revised: 04/24/2018 Document Reviewed: 05/07/2016 [employer] Patient Education 2020 [employer]. 02/24/2021 12:14:58 How to Avoid Diabetes Problems How to Avoid Diabetes Problems You can do a lot to prevent or slow down diabetes problems. Following your diabetes plan and takingcare of yourself can reduce your risk of serious or life-threatening complications. Below, you willfind certain things you can do to prevent diabetes problems. MANAGE YOUR DIABETES Follow your caregiver's, nurse educator's, and dietitian's instructions for managing your diabetes.They will teach you the basics of diabetes care. They can help answer questions you may have. Learnabout diabetes and make healthy choices regarding eating and physical activity. Monitor your blood glucose level regularly. Your caregiver will help you decide how often to check your blood glucose level depending on your treatment goals and how well you are meeting them. DO NOT SMOKE Smoking and diabetes are a dangerous combination. Smoking raises your risk for diabetes problems. If you quit smoking, you will lower your risk for heart attack, stroke, nerve disease, and kidney disease. Your cholesterol and your blood pressure levels may improve. Your blood circulation will also improve. If you smoke, ask your caregiver for help in quitting. KEEP YOUR BLOOD PRESSURE UNDER CONTROL Keeping your blood pressure under control will help prevent damage to your eyes, kidneys, heart, and blood vessels. Blood pressure consists of two numbers. The top number should be below 120, and thebottom number should be below 80 (120/80). Keep your blood pressure as close to these numbers as you can. If you already have kidney disease, you may want even lower blood pressure to protect your kidneys. Talk to your caregiver to make sure that your blood pressure goal is right for your needs. Meal planning, medicines, and exercise can help you reach your blood pressure target. Have your blood pressure checked at every visit with your caregiver. KEEP YOUR CHOLESTEROL UNDER CONTROL Normal cholesterol levels will help prevent heart disease and stroke. These are the biggest health problems for people with diabetes. Keeping cholesterol levels under control can also help with bloodflow. Have your cholesterol level checked at least once a year. Meal planning, exercise, and medicines can help you reach your cholesterol targets. SCHEDULE AND KEEP YOUR ANNUAL PHYSICAL EXAMS AND EYE EXAMS Your caregiver will tell you how often he or she wants to see you depending on your plan of treatment. It is important that you keep these appointments so that possible problems can be identified early and complications can be avoided or treated. Every visit with your caregiver should include your weight, blood pressure, and an evaluation of your blood glucose control. Your hemoglobin A1c should be checked: ? At least twice a year if you are at your goal. ? Every 3 months if there are changes in treatment. ? If you are not meeting your goals. Your blood lipids should be checked yearly. You should also be checked yearly to see if you have protein in your urine (microalbumin). Schedule a dilated eye exam if you have type 1 diabetes within 5 years of your diagnosis and then yearly. Schedule a dilated eye exam if you have type 2 diabetes at diagnosis and then yearly. All exams thereafter can be extended to every 2 to 3 years if one or more exams have been normal. KEEP YOUR VACCINES CURRENT The flu vaccine is recommended yearly. The formula for the vaccine changes every year and needs to be updated for the best protection against current viruses. In addition, you should get a vaccination against pneumonia at least once in your life. However, there are some instances where another vaccine is recommended. Check with your caregiver. TAKE CARE OF YOUR FEET Diabetes may cause you to have a poor blood supply (circulation) to your legs and feet. Because of this, the skin may be thinner, break easier, and heal more slowly. You also may have nerve damage inyour legs and feet causing decreased feeling. You may not notice minor injuries to your feet that could lead to serious problems or infections. Taking care of your feet is very important. Visual foot exams are performed at every routine medical visit. The exams check for cuts, injuries,or other problems with the feet. A comprehensive foot exam should be done yearly. This includes visual inspection as well as assessing foot pulses and testing for loss of sensation. You should also do the following: Inspect your feet daily for cuts, calluses, blisters, ingrown toenails, and signs of infection, such as redness, swelling, or pus. Wash and dry your feet thoroughly, especially between the toes. Avoid soaking your feet regularly in hot water baths. Moisturize dry skin with lotion, avoiding areas between your toes. Cut toenails straight across and file the edges. Avoid shoes that do not fit well or have areas that irritate your skin. Avoid going barefooted or wearing only socks. Your feet need protection. TAKE CARE OF YOUR TEETH People with poorly controlled diabetes are more likely to have gum (periodontal) disease. These infections make diabetes harder to control. Periodontal diseases, if left untreated, can lead to tooth loss. Moran your teeth twice a day, floss, and see your dentist for checkups and cleaning every 6 months, or 2 times a year. ASK YOUR CAREGIVER ABOUT TAKING ASPIRIN Taking aspirin daily is recommended to help prevent cardiovascular disease in people with and without diabetes. Ask your caregiver if this would benefit you and what dose he or she would recommend. DRINK RESPONSIBLY Moderate amounts of alcohol (less than 1 drink per day for adult women and less than 2 drinks per day for adult men) have a minimal effect on blood glucose if ingested with food. It is important to eat food with alcohol to avoid hypoglycemia. People should avoid alcohol if they have a history of alcohol abuse or dependence, if they are , and if they have liver disease, pancreatitis, advanced neuropathy, or severe hypertriglyceridemia. LESSEN STRESS Living with diabetes can be stressful. When you are under stress, your blood glucose may be affected in two ways: Stress hormones may cause your blood glucose to rise. You may be distracted from taking good care of yourself. It is a good idea to be aware of your stress level and make changes that are necessary to help you better manage challenging situations. Support groups, planned relaxation, a hobby you enjoy, meditation, healthy relationships, and exercise all work to lower your stress level. If your efforts do notseem to be helping, get help from your caregiver or a trained mental health professional. Document Released: 12/21/2011 Document Revised: 03/21/2013 Document Reviewed: 12/21/2011 [facility] Patient Information 2015 [employer]. This information is not intended to replace advicegiven to you by your health care provider. Make sure you discuss any questions you have with your health care provider. 02/24/2021 10:29:36 Video-Assisted Thoracic Surgery, Iggf-bq-Zdno Video-Assisted Thoracic Surgery Video-assisted thoracic surgery (VATS) is a procedure that lets your doctor look inside your chest and do small procedures. Your thoracic area is between your neck and belly. VATS may be done to: Study or find chest problems. Take out a sample of tissue for a test (biopsy). Put medicines in your chest. Take out fluid, pus, or blood. Take out lumps (tumors). Take out part of a lung (lobectomy). Treat some backbone (spine) problems. VATS is done by putting a thin tube (thoracoscope) in your chest. The tube has a light and camera on the end. The tube sends pictures to a TV screen. This lets your doctor see inside your chest. What happens before the procedure? Medicines Ask your doctor about: ?Changing or stopping your normal medicines. This is important if you take diabetes medicines or blood thinners. ?Taking medicines such as aspirin and ibuprofen. These medicines can thin your blood. Do not take these medicines before your procedure if your doctor tells you not to. You may be given antibiotic medicine. Staying hydrated Follow instructions from your doctor about hydration. Instructions may include: Up to 2 hours before the procedure you may continue to drink clear liquids. These include water, clear fruit juice, black coffee, and plain tea. Eating and drinking restrictions Follow instructions from your doctor about eating and drinking. Instructions may include: 8 hours before the procedure stop eating heavy meals or foods. This includes meat, fried foods, or fatty foods. 6 hours before the procedure stop eating light meals or foods. This includes toast or cereal. 6 hours before the procedure stop drinking milk or drinks that contain milk. 2 hours before the procedure stop drinking clear liquids. General instructions Ask how your surgical site will be marked or identified. You may be asked to shower with a germ-killing soap. You may have a blood or pee (urine) sample taken. You may have tests, such as: ?Chest X-ray. ?Electrocardiogram (ECG). ?Ultrasound. ?CT scan. Do not use any products that have nicotine or tobacco. These include cigarettes and e-cigarettes. If you need help quitting, ask your doctor. Plan to have someone take you home. If you will be going home right after the procedure, plan to have someone with you for 24 hours. What happens during the procedure? To lower your risk of infection: ?Your health care team will wash or sanitize their hands. ?Your skin will be washed with soap. An IV tube will be placed into one of your veins. You may be given: ?A medicine to make you fall asleep (general anesthetic). ?A medicine to help you relax (sedative). ?A medicine that is injected into an area of your body to numb everything below the injection site (regional anesthetic). A thin tube (catheter) will be placed into your bladder and in your tube that carries pee (urine) out of your body. The catheter will drain your pee. 1 4 small cuts will be made in your chest. A tube with a camera on it will be placed into a cut. This helps your surgeon see inside your chest. One of your lungs will have air taken out of it (will be deflated). This helps your surgeon see thearea. Any procedures that you need will be done. Air will be put back into your lung (it will be inflated). A chest tube may be placed through a cut. This drains fluid. Other cuts will be closed with stitches (sutures) or benjamin. A bandage (dressing) may be placed over your cut(s). The procedure may vary. What happens after the procedure? You will be monitored until your medicines have worn off. You may have a chest tube. It will be watched for signs of fluid or air buildup. You may get fluids and medicines through an IV tube. You may have to wear stockings to help prevent blood clots and reduce swelling (compression stockings). Do not drive for 24 hours if you were given a medicine to help you relax. Summary Video-assisted thoracic surgery (VATS) is a procedure that lets your doctor look inside your chest and do small procedures. VATS is done to study or find problems in your chest. After the procedure, you may have a tube draining fluid from your chest. This information is not intended to replace advice given to you by your health care provider. Make sure you discuss any questions you have with your health care provider. Document Released: 07/30/2013 Document Revised: 03/17/2018 Document Reviewed: 03/21/2017 [employer] Patient Education 2020 [employer]. 02/24/2021 10:29:28 Video-Assisted Thoracic Surgery, Care After, [id number]-[id number] Video-Assisted Thoracic Surgery, Care After This sheet gives you information about how to care for yourself after your procedure. Your doctor may also give you more specific instructions. If you have problems or questions, contact your doctor. What can I expect after the procedure? After the procedure, it is common to have: Some pain and soreness in your chest. Pain when you breathe in (inhale) and cough. Trouble pooping (constipation). Tiredness (fatigue). Trouble sleeping. Follow these instructions at home: Preventing lung infection (pneumonia) Take deep breaths or do breathing exercises as told by your doctor. Cough often. Coughing is important to clear thick spit (phlegm) and open your lungs. You can make coughing hurt less if you try supporting (splinting) your chest. Try one of these whenyou cough: ?Hold a pillow against your chest. ?Place both hands flat on top of your cut. Use an incentive spirometer as told by your doctor. This is a tool that measures how well you can fill your lungs with each breath. Do lung therapy (pulmonary rehabilitation) as told. Medicines Take fjwx-grx-dvjdzxm or prescription medicines only as told by your doctor. If you have pain, take pain-relieving medicine before your pain gets very bad. Doing this will helpyou breathe and cough more comfortably. If you were prescribed an antibiotic medicine, take it as told by your doctor. Do not stop taking the antibiotic even if you start to feel better. Activity Ask your doctor what activities are safe for you. Avoid activities that use your chest muscles for 3 4 weeks or longer. Do not lift anything that is heavier than 10 lb (4.5 kg), or the limit that your doctor tells you, until he or she says that it is safe. Cut (incision) care Follow instructions from your doctor about how to take care of your cut(s) from surgery. Make sure you: ?Wash your hands with soap and water before you change your bandage (dressing). If you cannot use soap and water, use hand topstitcher lockstitch. ?Change your bandage as told by your doctor. ?Leave stitches (sutures), skin glue, or skin tape (adhesive) strips in place. They may need to stay in place for 2 weeks or longer. If tape strips get loose and curl up, you may trim the loose edges. Do not remove tape strips completely unless your doctor says it is okay. Keep your bandage dry until it has been removed. Every day, check the area around your cut(s) for signs of infection. Check for: ?Redness, swelling, or pain. ?Fluid or blood. ?Warmth. ?Pus or a bad smell. Bathing Do not take baths, swim, or use a hot tub until your doctor approves. You may take showers. After your bandage is removed, use soap and water to gently wash the your cut(s) from surgery. Do not use anything else to clean your cut(s) unless your doctor tells you to do this. Driving Do not drive until your doctor approves. Do not drive or use heavy machinery while taking prescription pain medicine. Eating and drinking Eat a healthy diet as told by your doctor. A healthy diet includes: ?Lots of fresh fruits and vegetables. ?Whole grains. ?Low-fat (lean) proteins. Limit foods that are high in fat and processed sugars. These include fried and sweet foods. Drink enough fluid to keep your pee (urine) clear or light yellow. General instructions To prevent or treat trouble pooping while you are taking prescription pain medicine, your doctor may recommend that you: ?Take djbc-jat-mfaqeps or prescription medicines. ?Eat foods that have a lot of fiber. These include beans, fresh fruits and vegetables, and whole grains. Do not use any products that contain nicotine or tobacco. These include cigarettes and e-cigarettes. If you need help quitting, ask your doctor. Avoid being where people are smoking (avoid secondhand smoke). Wear compression stockings as told by your doctor. These stockings help you: ?Not get blood clots in your legs. ?Have less swelling in your legs. If you have a chest tube, care for it as told by your doctor. Do not travel by airplane during the 2 weeks after your chest tube is removed, or until your doctorsays that this is safe. Keep all follow-up visits as told by your doctor. This is important. Contact a doctor if: You have redness, swelling, or pain around a cut from surgery. You have fluid or blood coming from a cut from surgery. Your cut(s) from surgery feel warm to the touch. You have pus or a bad smell coming from a cut from surgery. You have a fever or chills. You feel sick to your stomach (nauseous). You throw up (vomit). You have pain that does not get better with medicine. Get help right away if: You have chest pain. Your heart is fluttering or beating fast. You start to have a rash. You have shortness of breath. You have trouble breathing. You are confused. You have trouble talking or understanding. You feel weak, light-headed, or dizzy. You faint. Summary To help prevent lung infection (pneumonia), take deep breaths or do breathing exercises as told by your doctor. Cough often. This is important for clearing chest fluid (phlegm). You can make coughing hurt less if you hold a pillow to your chest or put your hands flat on the cut(s) when you cough (do splinting). Do not drive until your doctor approves. Every day, check your cut(s) for signs of infection. These signs can be redness, swelling, pain, fluid, blood, warmth, pus, or a bad smell. Eat a healthy diet. This includes lots of fresh fruits and vegetables, whole grains, and low-fat (lean) proteins. This information is not intended to replace advice given to you by your health care provider. Make sure you discuss any questions you have with your health care provider. Document Released: 07/30/2013 Document Revised: 03/17/2018 Document Reviewed: 03/14/2017 [employer] Patient Education 2020 [employer] Follow Up Care 01/16/2021 13:52:02 With:JENNI MARCUS MD, [facility] Address: [address] [place] [address]- [phone] When:1-2 days Comments:Call debbi for follow-up appointment in 4-6 weeks. Check blood sugar twice daily; bring record with you to this appointment. Call prior to your appointment with any questions or concerns. With:AGNES HERNANDEZ DO Address: [address] [place] [address] [place] [address]- When:02/25/2021 11:10:00 Comments:This will be with Dr. Alfonso With:EVENS MCGARRY APRN-SONOGRAPHY TECHNOLOGIST Address: [address] [place] [address] [address] [facility] [address] [facility] [place] [address]- When:03/09/2021 13:30:00 Comments:Have a PA and lateral chest x-ray done here at [place] 1 hour prior to your office visit [facility] Evaluation + Plan note Future Appointments [facility] Evaluation + Plan note Future Appointments Appointment Date:03/09/2021 01:30:00 PM Scheduled Provider:EVENS MCGARRY APRN-SONOGRAPHY TECHNOLOGIST Location:[facility] Appointment Type:[facility] Post Op [facility] Evaluation + Plan note Future Appointments Appointment Date:04/23/2021 02:30:00 PM Scheduled Provider:JENNI MARCUS MD Location:[facility] Appointment Type:ENDO OV [facility] Evaluation + Plan note Future Appointments Appointment Date:02/03/2023 02:15:00 PM Scheduled Provider:JENNI MARCUS MD Location:[facility] Appointment Type:[facility] [employer] [facility] Evaluation + Plan note Future Appointments Appointment Date:05/26/2023 01:30:00 PM Scheduled Provider:JENNI MARCUS MD Location:[facility] Appointment Type:ENDO OV Future Scheduled Tests Laboratory* Complete Blood Count 02/03/23 * Albumin/Creatinine Ratio, Random Urine 02/03/23 [facility] Evaluation + Plan note Future Appointments Appointment Date:07/07/2023 08:00:00 AM Scheduled Provider:JENNI MARCUS MD Location:[facility] Appointment Type:ENDO OV Future Scheduled Tests Laboratory* Thyroid Stimulating Hormone 06/23/23 * Free T4 06/23/23 * Complete Blood Count 02/03/23 * Complete Blood Count 06/23/23 * Free T3 06/23/23 * Lipid Profile 06/23/23 * Albumin/Creatinine Ratio, Random Urine 02/03/23 * Albumin/Creatinine Ratio, Random Urine 06/23/23 * Complete Metabolic Panel 06/23/23 [facility] Evaluation + Plan note Future Appointments Appointment Date:04/26/2024 02:15:00 PM Scheduled Provider:JENNI MARCUS MD Location:[facility] Appointment Type:ENDO OV Future Scheduled Tests Laboratory* Thyroid Stimulating Hormone 04/13/24 * Thyroid Stimulating Hormone 06/23/23 * Free T4 04/13/24 * A1C Hemoglobin 04/13/24 * Complete Blood Count 02/03/23 * Complete Blood Count 06/23/23 * Free T3 04/13/24 * Lipid Profile 04/13/24 * Lipid Profile 06/23/23 * Albumin/Creatinine Ratio, Random Urine 12/09/23 * Albumin/Creatinine Ratio, Random Urine 07/07/23 * Albumin/Creatinine Ratio, Random Urine 04/13/24 * Albumin/Creatinine Ratio, Random Urine 02/03/23 * Albumin/Creatinine Ratio, Random Urine 06/23/23 * Vitamin D Level 04/13/24 * Complete Metabolic Panel 04/13/24 * Complete Metabolic Panel 06/23/23 [facility] Evaluation + Plan note Future Appointments Appointment Date:04/02/2024 11:00:00 AM Scheduled Provider: Location:[facility] Appointment Type:MRI Spine Lumbar w/ + w/o Contrast Appointment Date:04/06/2024 08:00:00 AM Scheduled Provider:AMALIA BARRERA MD Location:[facility] Appointment Type:NS OV Appointment Date:04/26/2024 02:15:00 PM Scheduled Provider:JENNI MARCUS MD Location:[facility] Appointment Type:ENDO OV Future Scheduled Tests Laboratory* Thyroid Stimulating Hormone 04/13/24 * Thyroid Stimulating Hormone 06/23/23 * Free T4 04/13/24 * A1C Hemoglobin 04/13/24 * Complete Blood Count 06/23/23 * Free T3 04/13/24 * Lipid Profile 04/13/24 * Lipid Profile 06/23/23 * Albumin/Creatinine Ratio, Random Urine 12/09/23 * Albumin/Creatinine Ratio, Random Urine 07/07/23 * Albumin/Creatinine Ratio, Random Urine 04/13/24 * Albumin/Creatinine Ratio, Random Urine 06/23/23 * Vitamin D Level 04/13/24 * Complete Metabolic Panel 04/13/24 * Complete Metabolic Panel 06/23/23 Radiology* MRI Spine Lumbar w/ + w/o Contrast 04/02/24 [facility] Evaluation + Plan note Future Appointments Appointment Date:04/02/2024 11:00:00 AM Scheduled Provider: Location:[facility] Appointment Type:MRI Spine Lumbar w/ + w/o Contrast Appointment Date:04/06/2024 10:00:00 AM Scheduled Provider:AMALIA BARRERA MD Location:[facility] Appointment Type:NS OV Appointment Date:04/26/2024 02:15:00 PM Scheduled Provider:JENNI MARCUS MD Location:[facility] Appointment Type:ENDO OV Future Scheduled Tests Laboratory* Thyroid Stimulating Hormone 04/13/24 * Thyroid Stimulating Hormone 06/23/23 * Free T4 04/13/24 * A1C Hemoglobin 04/13/24 * Complete Blood Count 06/23/23 * Free T3 04/13/24 * Lipid Profile 04/13/24 * Lipid Profile 06/23/23 * Albumin/Creatinine Ratio, Random Urine 12/09/23 * Albumin/Creatinine Ratio, Random Urine 07/07/23 * Albumin/Creatinine Ratio, Random Urine 04/13/24 * Albumin/Creatinine Ratio, Random Urine 06/23/23 * Vitamin D Level 04/13/24 * Complete Metabolic Panel 04/13/24 * Complete Metabolic Panel 06/23/23 Radiology* MRI Spine Lumbar w/ + w/o Contrast 04/02/24 [facility] Evaluation + Plan note Future Appointments Appointment Date:04/02/2024 11:00:00 AM Scheduled Provider: Location:[facility] Appointment Type:MRI Spine Lumbar w/ + w/o Contrast Appointment Date:04/04/2024 01:45:00 PM Scheduled Provider:AMALIA BARRERA MD Location:[facility] Appointment Type:NS OV Appointment Date:04/26/2024 02:15:00 PM Scheduled Provider:JENNI MARCUS MD Location:[facility] Appointment Type:ENDO OV Future Scheduled Tests Laboratory* Thyroid Stimulating Hormone 04/13/24 * Thyroid Stimulating Hormone 06/23/23 * Free T4 04/13/24 * A1C Hemoglobin 04/13/24 * Complete Blood Count 06/23/23 * Free T3 04/13/24 * Lipid Profile 04/13/24 * Lipid Profile 06/23/23 * Albumin/Creatinine Ratio, Random Urine 12/09/23 * Albumin/Creatinine Ratio, Random Urine 07/07/23 * Albumin/Creatinine Ratio, Random Urine 04/13/24 * Albumin/Creatinine Ratio, Random Urine 06/23/23 * Vitamin D Level 04/13/24 * Complete Metabolic Panel 04/13/24 * Complete Metabolic Panel 06/23/23 Radiology* MRI Spine Lumbar w/ + w/o Contrast 04/02/24 [facility] Evaluation + Plan note Future Appointments Appointment Date:04/04/2024 01:45:00 PM Scheduled Provider:AMALIA BARRERA MD Location:[facility] Appointment Type:NS OV Appointment Date:04/26/2024 02:15:00 PM Scheduled Provider:JENNI MARCUS MD Location:[facility] Appointment Type:ENDO OV Future Scheduled Tests Laboratory* Thyroid Stimulating Hormone 04/13/24 * Thyroid Stimulating Hormone 06/23/23 * Free T4 04/13/24 * A1C Hemoglobin 04/13/24 * Complete Blood Count 06/23/23 * Free T3 04/13/24 * Lipid Profile 04/13/24 * Lipid Profile 06/23/23 * Albumin/Creatinine Ratio, Random Urine 12/09/23 * Albumin/Creatinine Ratio, Random Urine 07/07/23 * Albumin/Creatinine Ratio, Random Urine 04/13/24 * Albumin/Creatinine Ratio, Random Urine 06/23/23 * Vitamin D Level 04/13/24 * Complete Metabolic Panel 04/13/24 * Complete Metabolic Panel 06/23/23 [facility] Evaluation + Plan note Future Appointments Appointment Date:04/26/2024 02:15:00 PM Scheduled Provider:JENNI MARCUS MD Location:[facility] Appointment Type:ENDO OV Future Scheduled Tests Laboratory* Thyroid Stimulating Hormone 04/13/24 * Thyroid Stimulating Hormone 06/23/23 * Free T4 04/13/24 * A1C Hemoglobin 04/13/24 * Complete Blood Count 06/23/23 * Free T3 04/13/24 * Lipid Profile 04/13/24 * Lipid Profile 06/23/23 * Albumin/Creatinine Ratio, Random Urine 12/09/23 * Albumin/Creatinine Ratio, Random Urine 07/07/23 * Albumin/Creatinine Ratio, Random Urine 04/13/24 * Albumin/Creatinine Ratio, Random Urine 06/23/23 * Vitamin D Level 04/13/24 * Complete Metabolic Panel 04/13/24 * Complete Metabolic Panel 06/23/23 [facility] Evaluation + Plan note Future Appointments Appointment Date:04/26/2024 02:15:00 PM Scheduled Provider:JENNI MARCUS MD Location:[facility] Appointment Type:ENDO OV Future Scheduled Tests Laboratory* Thyroid Stimulating Hormone 06/23/23 * Complete Blood Count 06/23/23 * Lipid Profile 06/23/23 * Albumin/Creatinine Ratio, Random Urine 12/09/23 * Albumin/Creatinine Ratio, Random Urine 07/07/23 * Albumin/Creatinine Ratio, Random Urine 04/13/24 * Albumin/Creatinine Ratio, Random Urine 06/23/23 * Vitamin D Level 04/13/24 * Complete Metabolic Panel 06/23/23 [facility] Evaluation + Plan note Future Appointments Appointment Date:08/09/2024 03:00:00 PM Scheduled Provider:AGNES AWAD DO Location:[facility] Appointment Type:PC OV Future Scheduled Tests Laboratory* Albumin/Creatinine Ratio, Random Urine 12/09/23 * Albumin/Creatinine Ratio, Random Urine 04/13/24 * Albumin/Creatinine Ratio, Random Urine 06/24/24 [facility] Evaluation noteNo assessment information available [facility] Work Phone: Evaluation note* Diagnosis Onset Date Resolution Status Carcinoid tumor acute History of left breast cancer chronic MGUS (monoclonal gammopathy of unknown significance) chronic [facility] Work Phone: Hospital course Narrative No data available for this section [facility] Hospital Discharge instructions No data available for this section [facility] Discharge instructions Additional Instructions Implant Used?: [facility] Work Phone[facility] Progress note No data available for this section [facility] Summary note* JEAN PIERRE Johnson: PERFORM Event Display: Patient Summary Documents Authored Date: [id number] [facility] Chief Complaint and Reason for Visit Chief Complaint AXONICS STAGE 1 Chief Complaint AXONICS STAGE 1 F/U LABS PRIOR SCREENING Reason for Visit Carcinoid tumor History of left breast cancer MGUS (monoclonal gammopathy of unknown significance) Chief Complaint AXONICS STAGE 1 F/U LABS PRIOR SCREENING AXONICS STAGE 1 Reason for Visit Carcinoid tumor History of left breast cancer MGUS (monoclonal gammopathy of unknown significance) Chief Complaint F/U LABS PRIOR SCREENING AXONICS STAGE 1 Reason for Visit Carcinoid tumor History of left breast cancer MGUS (monoclonal gammopathy of unknown significance) Chief Complaint AXONICS STAGE 1 HIP PAIN Family History No Family History Records Found Relationship Condition Age at Onset Recorded Date/T jovanna mother Malignant neoplasm of breast 65 Disorder of thyroid Unknown Glaucoma Unknown Diabetes mellitus Unknown Hypertension Unknown father Coronary artery disease Unknown Myocardial infarction 48 uncle Coronary artery disease Unknown Myocardial infarction Unknown grandmother Cerebrovascular accident (CVA) Unknown Advance Directives No Advanced Directives Records Found Advance Directive Response Recorded Date/ Time Advance Directives Yes November 21 10:47am Living Will Yes October 01, 2021 3:07pm Power of Electronics Specialist Yes October 01 3:07pm Name of Medical Power of Electronics Specialist KACI CALL October 01, 2021 3:07pm Advance Directive Response Recorded Date/ Time Name of Medical Power of Electronics Specialist KACI CALL October 01, 2021 3:07pm Advance Directives Yes November 21 10:47am Living Will Yes October 01, 2021 3:07pm Power of Electronics Specialist Yes October 01 3:07pm Advance Directive Response Recorded Date/ Time Name of Medical Power of Electronics Specialist KACI CALL October 01, 2021 3:07pm Name of Medical Power of Electronics Specialist FRIEND December 09, 2021 12:53pm Advance Directives Yes November 21 10:47am Living Will Yes December 09 12:53pm Power of Electronics Specialist Yes December 09 12:53pm Advance Directive Response Recorded Date/ Time Name of Medical Power of Electronics Specialist FRIEND December 09, 2021 12:53pm Advance Directives Yes November 21 10:47am Living Will Yes December 09 12:53pm Power of Electronics Specialist Yes December 09 12:53pm Advance Directive Response Recorded Date/ Time Name of Medical Power of Electronics Specialist FRIEND December 09, 2021 11:53am Advance Directives Yes February 8:24am Living Will Yes March 03 8:24am Power of Electronics Specialist Yes March 03, 2022 8:24am Summary Purpose Additional Source Comments Care Team (unrecognized sect ion and content) Personnel Name: AGNES HERNANDEZ DO Address: [address] [place] [id number]- Name: Elodia Scott Clergarfield Alarcon PT Care Team Personnel Name: Elodia Scott PT Position: P3 Scheduling - Newborn Photographer Advanced Member Role: Other Name: DAYLIN COOK MD Member Role: Cardiothoracic Surgeon Address: Address: [address] Cardiothoracic Surgery [place], [place] [address] Name: AGNES HERNANDEZ DO Member Role: Primary Care Physician Address: Address: [address] [place] [address] Name: Karla Harrington RN Position: AO RN Member Role: RN Name: XANDER GRIFFIN MD Position: ED Physician Member Role: ED Physician Address: Address: [address] [place] [address] [address]- Care Team Related Persons Name: CYNDI DUNLAP Care Team Personnel Name: Elodia Scott Clerk Agnes PT Position: P3 Scheduling - Newborn Photographer Advanced Member Role: Other Name: DAYLIN COOK MD Member Role: Cardiothoracic Surgeon Address: Address: [address] [place] [address] Cardiothoracic Surgery [address] Name: AGNES HERNANDEZ DO Member Role: Primary Care Physician Address: Address: [address] [place] [address] Name: Lesvia Diehl Coder Position: HIM: Coders Member Role: HIM: Coders Name: MD LOGAN, GIFTY CORDOBA Position: ED Physician Member Role: ED Physician Address: Address: [address] [place] [address] Care Team Related Persons Name: CYNDI DUNLAP Care Team Personnel Name: Elodia Scott Clergarfield Alarcon PT Position: P3 Scheduling - Newborn Photographer Advanced Member Role: Other Name: DAYLIN COOK MD Member Role: Cardiothoracic Surgeon Address: Address: [address] [place] [address] [place] [address]- Name: AGNES HERNANDEZ DO Member Role: Primary Care Physician Address: Address: [address] [place] [address] Name: Karla Harrington RN Position: AO RN Member Role: RN Name: CARMELA PAZ DO Position: ED Physician Member Role: ED Physician Address: Address: [facility] [address] [place], [place] [id number]- Name: Malathi Antony RN Position: AO RN Member Role: RN Care Team Related Persons Name: FABI, CYNDI Care Team Personnel Name: [place], Refinery Process Engineer Agnes PT Position: P3 Scheduling - Newborn Photographer Advanced Member Role: Other Name: DAYLIN COOK MD Member Role: Cardiothoracic Surgeon Address: Address: [address] [place] [address] Cardiothor[facility] Surgery [address] Name: AGNES HERNANDEZ DO Member Role: Primary Care Physician Address: Address: [address] [place] [address] Care Team Related Persons Name: CYNDI DUNLAP Care Team Personnel Name: Sonia, Refinery Process Engineer Agnes PT Position: P3 Scheduling - Newborn Photographer Advanced Member Role: Other Name: DAYLIN COOK MD Member Role: Cardiothoracic Surgeon Address: Address: [address] [place] [address] Cardiothor[facility] Surgery [address] Name: AGNES HERNANDEZ DO Member Role: Primary Care Physician Address: Address: [address] [place] [address] Care Team Related Persons Name: CYNDI DUNLAP Care Team Personnel Name: Sonia, Refinery Process Engineer Agnes PT Position: P3 Scheduling - Newborn Photographer Advanced Member Role: Other Name: DAYLIN COOK MD Member Role: Cardiothoracic Surgeon Address: Address: [address] [place] [address] Cardiothor[facility] Surgery [address] Name: AGNES HERNANDEZ DO Member Role: Primary Care Physician Address: Address: [address] [place] [address] Care Team Related Persons Name: CYNDI DUNLAP Care Team Personnel Name: Sonia, Refinery Process Engineer Agnes PT Position: P3 Scheduling - Newborn Photographer Advanced Member Role: Other Name: DAYLIN COOK MD Member Role: Cardiothoracic Surgeon Address: Address: [address] [place] [address] Name: AGNES HERNANDEZ DO Member Role: Primary Care Physician Address: Address: [address] [place] [address] Name: JESÚS HOUSTON DO Position: ED Physician Member Role: ED Physician Address: Address: [address] [place] [address] [facility] [address] Name: Lesvia Diehl pigment presser Position: DEMETRIA HIM: Coders Member Role: HIM: Coders Name: Gaby Dawn RN Position: AO RN Member Role: ED RN Care Team Related Persons Name: SHIMON DUNLAPINE Care Team Personnel Name: Sonia, Refinery Process Engineer Agnes PT Position: P3 Scheduling - Newborn Photographer Advanced Member Role: Other Name: DAYLIN COOK MD Member Role: Cardiothoracic Surgeon Address: Address: [address] [place] [address] Cardi[facility]or[facility] Surgery [address] Name: AGNES HERNANDEZ DO Member Role: Primary Care Physician Address: Address: [address] [place] [address] Care Team Related Persons Name: SHIMON DUNLAPINE Care Team Personnel Name: Sonia, Refinery Process Engineer Agnes PT Position: P3 Scheduling - Newborn Photographer Advanced Member Role: Other Name: DAYLIN COOK MD Member Role: Cardiothoracic Surgeon Address: Address: [address] [place] [address] Cardi[facility]or[facility] Surgery [address] Name: AGNES HERNANDEZ DO Member Role: Primary Care Physician Address: Address: [address] [place] [address] Care Team Related Persons Name: SHIMON DUNLAPINE Care Team Personnel Name: Sonia, Refinery Process Engineer Agnes PT Position: P3 Scheduling - Newborn Photographer Advanced Member Role: Other Name: DAYLIN COOK MD Member Role: Cardiothoracic Surgeon Address: Address: [address] [place] [address] Cardi[facility] [address] Name: AGNES HERNANDEZ DO Member Role: Primary Care Physician Address: Address: [address] [place] [address] Care Team Related Persons Name: FABI, CYNDI Care Team Personnel Name: Sonia, Refinery Process Engineer Agnes PT Position: P3 Scheduling - Newborn Photographer Advanced Member Role: Other Name: Alissa Mc Position: Bed Management Member Role: Other Name: DAYLIN COOK MD Member Role: Cardiothoracic Surgeon Address: Address: [address] [place] [address] Cardiothor[facility] Surgery [address] Name: AGNES HERNANDEZ DO Member Role: Primary Care Physician Address: Address: [address] [place] [address] Care Team Related Persons Name: CYNDI DUNLAP Care Team Personnel Name: Sonia Refinery Process Engineer Agnes PT Position: P3 Scheduling - Newborn Photographer Advanced Member Role: Other Name: Alissa Mc Position: Bed Management Member Role: Other Name: DAYLIN COOK MD Member Role: Cardiothoracic Surgeon Address: Address: [address] [place] [address] Name: AGNES HERNANDEZ DO Member Role: Primary Care Physician Address: Address: [address] [place] [address] Care Team Related Persons Name: CYNDI DUNLAP Care Team Personnel Name: Sonia Refinery Process Engineer Agnes PT Position: P3 Scheduling - Newborn Photographer Advanced Member Role: Other Name: Alissa Mc Position: Bed Management Member Role: Other Name: DAYLIN COOK MD Member Role: Cardiothoracic Surgeon Address: Address: [address] [place] [address] Cardiothor[facility] Surgery [address] Name: AGNES HERNANDEZ DO Member Role: Primary Care Physician Address: Address: [address] [place] [address] Care Team Related Persons Name: CYNDI DUNLAP Care Team Personnel Name: Sonia Refinery Process Engineer Agnes PT Position: P3 Scheduling - Newborn Photographer Advanced Member Role: Other Name: Alissa Mc Position: Bed Management Member Role: Other Name: DAYLIN COOK MD Member Role: Cardiothoracic Surgeon Address: Address: [address] [place] [address] Cardiothor[facility] Surgery [address] Name: AGNES HERNANDEZ DO Member Role: Primary Care Physician Address: Address: [address] [place] [address] Care Team Related Persons Name: CYNDI DUNLAP Care Team Personnel Name: Sonia Refinery Process Engineer Agnes PT Position: P3 Scheduling - Newborn Photographer Advanced Member Role: Other Name: Alissa Mc Position: Bed Management Member Role: Other Name: DAYLIN COOK MD Member Role: Cardiothoracic Surgeon Address: Address: [address] [place] [address] Name: AGNES HERNANDEZ DO Member Role: Primary Care Physician Address: Address: [address] [place] [address] Care Team Related Persons Name: SHIMON DUNLAPINE Care Team Personnel Name: Sonia Refinery Process Engineer Agnes PT Position: P3 Scheduling - Newborn Photographer Advanced Member Role: Other Name: Alissa Mc Position: Bed Management Member Role: Other Name: DAYLIN COOK MD Member Role: Cardiothoracic Surgeon Address: Address: [address] [place] [address] Name: AGNES HERNANDEZ DO Member Role: Primary Care Physician Address: Address: [address] [place] [address] Care Team Related Persons Name: CYNDI DUNLAP Care Team Personnel Name: Sonia Refinery Process Engineer Agnes PT Position: P3 Scheduling - Newborn Photographer Advanced Member Role: Other Name: Alissa Mc Position: Bed Management Member Role: Other Name: DAYLIN COOK MD Member Role: Cardiothoracic Surgeon Address: Address: [address] [place] [address] Cardiothoracic Surgery [address] Name: AGNES HERNANDEZ DO Member Role: Primary Care Physician Address: Address: [address] [place] [address] Care Team Related Persons Name: SHIMON DUNLAPINE Care Team Personnel Name: Sonia Refinery Process Engineer Agnes PT Position: P3 Scheduling - Newborn Photographer Advanced Member Role: Other Name: Alissa Mc Position: Bed Management Member Role: Other Name: DAYLIN COOK MD Member Role: Cardiothoracic Surgeon Address: Address: [address] [place] [address] Cardiothoracic Surgery [address] Name: AGNES HERNANDEZ DO Member Role: Primary Care Physician Address: Address: [address] [place] [address] Care Team Related Persons Name: CYNDI DUNLAP Care Team Personnel Name: Sonia Refinery Process Engineer Agnes PT Position: P3 Scheduling - Newborn Photographer Advanced Member Role: Other Name: Alissa Mc Position: Bed Management Member Role: Other Name: DAYLIN COOK MD Member Role: Cardiothoracic Surgeon Address: Address: [address] [place] [address] Cardiothoracic Surgery [address] Name: AGNES HERNANDEZ DO Member Role: Primary Care Physician Address: Address: [address] [place] [address] Care Team Related Persons Name: CYNDI DUNLAP Care Team Personnel Name: Sonia Refinery Process Engineer Agnes PT Position: P3 Scheduling - Newborn Photographer Advanced Member Role: Other Name: Alissa Mc Position: Bed Management Member Role: Other Name: DAYLIN COOK MD Member Role: Cardiothoracic Surgeon Address: Address: [address] [place] [address] [address] Name: AGNES HERNANDEZ DO Member Role: Primary Care Physician Address: Address: [address] [place] [address] Care Team Related Persons Name: CYNDI DUNLAP Care Team Personnel Name: Sonia Refinery Process Engineer Agnes PT Position: P3 Scheduling - Newborn Photographer Advanced Member Role: Other Name: Alissa Mc Position: Bed Management Member Role: Other Name: DAYLIN COOK MD Member Role: Cardiothoracic Surgeon Address: [address] [place] [address] Telecom: Name: AGNES HERNANDEZ DO Member Role: Primary Care Physician Address: [address] [place] [address] Telecom: Care Team Related Persons Name: CYNDI DUNLAP Care Team Personnel Name: Sonia Refinery Process Engineer Agnes PT Position: P3 Scheduling - Newborn Photographer Advanced Member Role: Other Name: Alissa Mc Position: Bed Management Member Role: Other Name: DAYLIN COOK MD Member Role: Cardiothoracic Surgeon Address: [address] [place] [address] Telecom: Name: AGNES HERNANDEZ DO Member Role: Primary Care Physician Address: [address] [place] [address] Telecom: Care Team Related Persons Name: CYNDI DUNLAP Care Team Personnel Name: Elodia Scott Clerk Agnes PT Position: P3 Scheduling - Newborn Photographer Advanced Member Role: Other Name: Alissa Mc Position: Bed Management Member Role: Other Name: DAYLIN COOK MD Member Role: Cardiothoracic Surgeon Address: [address] [place] [address] Telecom: Name: AGNES HERNANDEZ DO Member Role: Primary Care Physician Address: [address] [place] [address] Telecom: Care Team Related Persons Name: CYNDI DUNLAP Care Team Personnel Name: Elodia Scott Clerk Agnes PT Position: P3 Scheduling - Newborn Photographer Advanced Member Role: Other Name: Alissa Mc Position: Bed Management Member Role: Other Name: DAYLIN COOK MD Member Role: Cardiothoracic Surgeon Address: [address] [place] [address] Telecom: Name: AGNES HERNANDEZ DO Member Role: Primary Care Physician Address: [address] [place] [address] Telecom: Care Team Related Persons Name: CYNDI DUNLAP Care Team Personnel Name: Sonia Refinery Process Engineer Agnes PT Position: P3 Scheduling - Newborn Photographer Advanced Member Role: Other Name: Alissa Mc Position: Bed Management Member Role: Other Name: DAYLIN COOK MD Member Role: Cardiothoracic Surgeon Address: [address] [place] [address] [address] [facility] [place] [address]- Telecom: Name: AGNES AWAD DO Position: P4 Physician - Primary Care Member Role: Primary Care Physician Address: [address] [place] [address] Telecom: Name: AMALIA BARRERA MD Position: P4 Physician - Neurosurgery Member Role: Neurosurgeon Address: [address] [facility] [address] [place] [address]- Telecom: Name: AMELIE RUBY APRN-SONOGRAPHY TECHNOLOGIST Member Role: Boatbuilder Supervisor Address: [address] [place] [address] [address] [place] [address] [place] Telecom: Care Team Related Persons Name: CYNDI DUNLAP Care Team (unrecognized sect ion and content) Care Team Personnel Name: Elodia Scott Clelamine Alarcon PT Position: P3 Scheduling - Newborn Photographer Advanced Member Role: Other Name: DAYLIN COOK MD Position: P4 Physician - Cardiothoracic Surgery Med Service: Active Provider Member Role: Cardiothoracic Surgeon Address: Address: [address] [place] [address] [address] [facility] Cardiothoracic Surgery [place] [id number]- Name: AGNES HERNANDEZ DO Member Role: Primary Care Physician Address: Address: [address] [place] [address]- Care Team Related Persons Name: CYNDI DUNLAP Care Team Personnel Name: Elodia Scott PT Position: P3 Scheduling - Newborn Photographer Advanced Member Role: Other Name: AGNES HERNANDEZ DO Member Role: Primary Care Physician Address: Address: [address] [place] [address] Care Team Related Persons Name: CYNDI DUNLAP INFORMATION SOURCE (unrecogn ized section and content) DATE CREATED AUTHOR 12/11/2023 [facility] ([place]) DATE CREATED AUTHOR AUTHOR'S ORGANIZ ATION 07/18/2024 [facility] DATE CREATED AUTHOR AUTHOR'S ORGANIZ ATION 08/13/2024 [facility] DATE CREATED AUTHOR AUTHOR'S ORGANIZ ATION 09/26/2024 [facility] FOR RECORDS PERTAINING TO PATIENTS WHO ARE OR HAVE BEEN ENROLLED IN A CHEMICAL DEPENDENCY/SUBSTANCEABUSE PROGRAM, SOME INFORMATION MAY BE OMITTED. This clinical summary was aggregated from multiple sources. Caution should be exercised in using it in the provision of clinical care. This summary normalizes information from multiple sources, and as a consequence, information in this document may materially change the coding, format and clinical context of patient data. In addition, data may be omitted in some cases. CLINICAL DECISIONS SHOULD BE BASED ON THE PRIMARY CLINICAL RECORDS. [facility] [employer], [facility]. provides no warranty or guarantee of the accuracy or completeness of information in this document.
--- OUTSIDE RECORDS SUMMARY | 2024-09-27 21:12 | XMS RPT_ITS | CCD ---
Author Organization [facility] Care Team Providers Care Greens Or Grounds Superintendent Name Role Phone KENTRELL DEAN MD Primary Care Physician [phone] Milam Agnes CRANE Unavailable Unavailable CHELSEA TOSCANO, DR AGNES Cantrell Primary Care Physician DR AGNES HERNANDEZ DO Primary Care Physician Dr. Agnes Hernandez Primary Care Provider Dr. Agnse Hernandez Referring Provider [phone] Kentrell Dean Attending Provider [facility] Attending Unavailable CHELSEA TOSCANO, DR AGNES [...] , DR AGNES Cantrell Primary Care Unavailable [facility] DO Attending Unavailable MALYS , DR AGNES Cantrell Primary Care Unavailable Alissa Roman Unavailable Unavailable MALYS DO, DR AGNES Cantrell Primary Care Unavailable [facility], [facility] Attending Unavailable CHELSEA TOSCANO, DR AGNES [...] Ditchey, Agnes M Primary Care Unavailable Ruby LOG HAULER, Amelie Attending Unavailable Ruby LOG HAULER, Amelie Referring Unavailable Malys, Agnes Primary Care Unavailable Prah, Kentrell Attending Unavailable Prah, Kentrell Referring Unavailable Malys, Agnes Primary Care Unavailable Malys, Agnes Referring Unavailable Ruby LOG HAULER, Amelie Attending Unavailable Malys, Agnes Referring Unavailable Prah, Kentrell Attending Unavailable Malys, Agnes Primary Care Unavailable Malys, Agnes Primary Care Unavailable Malys, Agnes Referring Unavailable Clover Kc Attending Unavailable Malys, Agnes Primary Care Unavailable Malys, Agnes Referring Unavailable Ruby LOG HAULER, Amelie Attending Unavailable Malys, Agnes Primary Care Unavailable Malys, Agnes Referring Unavailable Loretta LOG HAULER, Alex Castillo Attending Unavailable Malys, Agnes Primary Care Unavailable Malys, Agnes Referring Unavailable Heidi Tan Attending Unavailable Mj Mc Attending Unavailable Ditchey, Agnes M Primary Care Unavailable Ruby LOG HAULER, Amelie Consulting Unavailable Ruby LOG HAULER, Amelie Referring Unavailable Ditchey, Agnes M Primary Care Unavailable Ruby LOG HAULER, Amelie Attending Unavailable Ruby LOG HAULER, Amelie Referring Unavailable Ditchey, Agnes M Primary Care Unavailable Ruby LOG HAULER, Amelie Attending Unavailable Ruby LOG HAULER, Amelie Referring Unavailable Malys, Agnes Primary Care Unavailable BobBasim Attending Unavailable Ditchey, Agnes M Primary Care Unavailable Ruby LOG HAULER, Amelie Attending Unavailable Ruby LOG HAULER, Amelie Referring Unavailable Ean Alfonso Referring Unavailable Ean Alfonso Attending Unavailable Malys, Agnes Primary Care Unavailable Malys, Agnes Primary Care Unavailable Jake Montalvo Attending Unavailable Allergies Allergy Classification Reported Allergen(s) Allergy Type Date of Onset Reaction(s) Facility (9 sources) Acetaminophen; Translations: [acetaminophen] Drug Allergy Unknown (qualifier value) [facility] (20 sources) Aspirin; Translations: [aspirin] Drug Allergy 2 Unknown [facility] (20 sources) Bee/Wasp/Ant venom Propensity to adverse reactions to substance Difficulty breathing (finding) [facility] (20 sources) Calcium Carbonate; Translations: [calcium carbonate] Drug Allergy 2 Unknown (qualifier value) [facility] (20 sources) Codeine; Translations: [codeine] Drug Allergy 2 Amnesia (finding) [facility] (20 sources) Egg Propensity to adverse reactions to food Nausea and vomiting (disorder) [facility] (20 sources) gabapentin; Translations: [gabapentin] Drug Allergy Abnormal muscle function (finding) [facility] (20 sources) HYDROcodone; Translations: [hydrocodone] Drug Allergy 2 [place] DOES NOT REMEMBER [facility] (20 sources) influenza A virus A/[facility] 11/2014 (H1N1) antigen / influenza A virus A/[facility] (H3N2) antigen / influenza B virus B/[facility] antigen / influenza B virus B/ antigen; Translations: [influenza virus vaccine] Drug Allergy [facility] (20 sources) MAGNESIUM GLUCONATE; Translations: [magnesium gluconate] Drug Allergy Unknown (qualifier value) [facility] Comment on above: patient denies react ion to magnesium (20 sources) Morphine; Translations: [morphine] Drug Allergy 2 Anaphylaxis (disorder) [facility] Comment on above: was on a MS drip aft er surgery in 1999 and coded (20 sources) Penicillin; Translations: [penicillins] Drug Allergy [facility] (20 sources) Propoxyphene; Translations: [propoxyphene] Drug Allergy [facility] (20 sources) vortioxetine; Translations: [vortioxetine] Drug Allergy [facility] (20 sources) flu vaccines; Translations: [flu vaccines] Drug allergy Unknown (qualifier value) [facility] (5 sources) egg extract Drug Allergy 2 FLU SYMTOPMS, WEEKNESS [facility] Work Phone: (6 sources) HYDROcodone; Translations: [hydrocodone bitartrate] Drug Allergy 2 PATIENT DOES NOT REMEMBER [facility] Repository (5 sources) Magnesium Drug Allergy 2 PT UNSURE OF REACTION [facility] Work Phone: (6 sources) Penicillins; Translations: [Penicillins] Allergy to substance 2 Hives [facility] Repository (6 sources) Propoxyphene; Translations: [propoxyphene napsylate] Drug Allergy 2 [place] DOES NOT REMEMBER [facility] Repository (5 sources) vortioxetine Drug Allergy 2 LEGS FELT ON FIRE [facility] Work Phone: (5 sources) venom-honey bee Allergy to substance 2 STOP BREATHING [facility] Work Phone: (3 sources) FLU SHOT Allergy to substance 2 BECARE DEHYDRATED [facility] Work Phone: (2 sources) Influenza Vaccines Propensity to adverse reactions 2 DEHYDRATION [facility] Work Phone: (1 source) Aspirin Drug Allergy 5 [facility] Repository (1 source) Calcium Carbonate Drug Allergy 5 [facility] Rep[facility] (1 source) Calcium Carbonate Drug Allergy 5 [facility] Repository (1 source) Codeine Drug Allergy 5 [facility] Rep[facility] (1 source) egg extract Drug Allergy 5 [facility] (1 source) gabapentin Drug Allergy 5 [facility] Rep[facility] (1 source) HYDROcodone Drug Allergy 5 [facility] Rep[facility] (1 source) Magnesium Drug Allergy 5 [facility] Repository (1 source) Morphine Drug Allergy 5 [facility] Repository (1 source) vortioxetine Drug Allergy 5 [facility] Repository (1 source) Influenza Virus Vaccines Drug allergy (disorder) 5 [facility] Repository (1 source) venom-honey bee Drug allergy (disorder) 5 [facility] Repository Medications Current Medications Medication Drug Class(es) Dates Sig (Normalized) Sig (Original) 3 ML semaglutide 1.34 MG/ML Pen Injector [Ozempic] (1 source) Start: 06-23-2023 inject 1 dose by subcutaneous injection every week Ozempic 4 mg/3 mL (1 mg dose) subcutaneous solution Dose : 1 mg =, Subcutaneous, qWeek, # 3 mL, 3 Refill(s), Pharmacy: [facility] [id number], 175, cm, 06/23/23 14:14:00 EST, Height, kg, [...] arm, # 3 mL, 3 Refill(s), Pharmacy: [facility], 175.3, cm, 06/15/24 9:31:00 EST, Height, kg, [...] arm, # 3 mL, 3 Refill(s), Pharmacy: [facility] [address], 175, cm, 09/08/23 15:18:00 EDT, Height, kg, [...] arm, # 3 mL, 3 Refill(s), Pharmacy: [place] [id number], 175, cm, 09/08/23 15:18:00 EDT, Height, kg, [...] tab(s), 0 Refill(s), [facility]: [facility], Carcinoid tumor of lung s/p LVAT, SARAY [...] q4h, # 18 gram(s), 1 Refill(s), Pharmacy: [facility]/pharmacy #[id number], COPD, 175.3, cm, 06/15/24 9:31:00 EST, [...] qDay, # 180 tab(s), 1 Refill(s), Pharmacy: [place] [address], 174.5, cm, 05/17/24 13:33:00 EST, Height, kg, [...] qAM, # 90 tab(s), 1 Refill(s), Pharmacy: [place] [address], 174.5, cm, 05/17/24 13:33:00 EST, Height, kg, [...] month, # 90 tab(s), 3 Refill(s), Pharmacy: [place] [address], 175, cm, 09/08/23 15:18:00 EDT, Height, kg, [...] q4h, # 120 mL, 0 Refill(s), [id number], 175.3, cm, 09/20/22 0:36:00 EDT, Height Start [...] Start: 04-26-2024 DME MISCellane ous See Instructions, [employer] Jose Raul 3 plus Sensors. 1 sensor every 15 days. 2 sensors per 30 days. 3 refills. E11.65, # 2 EA, 3 Refill(s), Pharmacy: [facility] - [address], 175.3, cm, 04/26/24 14:13:00 EST, Height, 126.7, kg, 04/26/24 14:13:00 EST, Dosing Weight Start Date: 04/26/24 Status: Ordered Quantity: 2.0 Unit: EA Repeat number: 4 Start: 04-26-2024 DME MISCellane ous See Instructions, [employer] Jose Raul 3 [place]. 1 every 12 months. 0 refills. E11.65, # 1 EA, 0 Refill(s), Pharmacy: [place] [address], 175.3, cm, 04/26/24 14:13:00 EST, Height, 126.7, kg, 04/26/24 14:13:00 EST, Dosing Weight Start Date: 04/26/24 Status: Ordered Quantity: 1.0 Unit: EA Repeat number: 1 Start: 04-01-2024 DME MISCellane ous See Instructions, freestyle jose raul 2 sensors 1 sensor every 14 days #2 sensors for 28 days and 3 refills E11.65., # 2 EA, 3 Refill(s), Pharmacy: [place] [address], 175.3, cm, 02/01/24 20:01:00 EDT, Height, 134.1, kg, 02/01/24 20:01:00 EDT, Dosing Weight Start Date: 04/01/24 Status: Ordered Quantity: 2.0 Unit: EA Repeat number: 4 Start: 04-01-2024 DME MISCellane ous See Instructions, freestyle jose raul 2 sensors 1 sensor every 14 days #2 sensors for 28 days and 3 refills E11.65., # 2 EA, 3 Refill(s), Pharmacy: [place] [address], 175.3, cm, 02/01/24 20:01:00 EDT, Height, 134.1, [...] BID, # 360 cap(s), 1 Refill(s), Pharmacy: [place] [address], 174.5, cm, 05/17/24 13:33:00 EST, Height, kg, [...] FREESTYLE LIBR E 2 SENSOR FREESTYLE JOSE RALU 2 SENSOR, use as directed Start Date: [...] BID, # 180 tab(s), 1 Refill(s), Pharmacy: [place] [address], 174.5, cm, 05/17/24 13:33:00 EST, Height, kg, [...] eat, # 30 mL, 1 Refill(s), Pharmacy: [address], Diabetes mellitus type 2, 175.3, cm, [...] qDay, # 45 tab(s), 1 Refill(s), Pharmacy: [place] [address], 174.5, cm, 05/17/24 13:33:00 EST, Height, kg, [...] qDay, # 9 mL, 3 Refill(s), [facility], 175.3, cm, 04/26/24 14:13:00 EST, Height, kg, [...] qDay, # 18 mL, 3 Refill(s), Pharmacy: [facility] [address], 175, cm, 09/08/23 15:18:00 EDT, Height, kg, 09/08/23 15:18:00 EDT, Dosing Weight Start Date: 09/08/23 Status: Ordered Start: 06-23-2023 inject 1 dose by sub cutaneous injection once daily Tresiba FlexTouch 200 units/mL 3 mL subcutaneous solution Dose : 100 unit(s) =, Subcutaneous, qDay, # 9 mL, 3 Refill(s), Pharmacy: [facility] [address], 175, cm, 06/23/23 14:14:00 EST, Height, kg, [...] eat, # 30 mL, 1 Refill(s), Pharmacy: [facility], Diabetes mellitus type 2, 175.3, cm, 02/18/21 6:13:00 EDT, Height, kg, 02/18/21 6:13:00 EDT, Dosing Weight Start Date: 02/24/21 Status: Ordered 3 ml insulin lispro 100 unt/ml pen injector (20 sources) Insulin Analog Start: 07-19-2024 HumaLOG KwikPe n 100 units/mL injectable PEN Dose : 25 unit(s) =, Subcutaneous, TIDAC, # 15 mL, 3 Refill(s), Pharmacy: [place] [address], 175.3, cm, 06/15/24 9:31:00 EST, Height, kg, 06/26/24 15:05:00 EDT, Dosing Weight Start Date: 07/19/24 Status: Ordered Quantity: 15.0 Unit: mL Repeat number: 4 Start: 11-07-2023 HumaLOG KwikPe n 100 units/mL injectable PEN Dose : 35 unit(s) =, Subcutaneous, TIDAC, # 15 mL, 3 Refill(s), Pharmacy: [place] [id number], 175, cm, 09/08/23 15:18:00 EDT, Height, kg, 09/08/23 15:18:00 EDT, Dosing Weight Start Date: 11/07/23 Status: Ordered Quantity: 15.0 Unit: mL Repeat number: 4 Start: 06-23-2023 HumaLOG KwikPe n 100 units/mL injectable PEN Dose : 35 unit(s) =, Subcutaneous, TIDAC, # 15 mL, 3 Refill(s), Pharmacy: [place] [id number], 175, cm, 06/23/23 14:14:00 EST, Height, kg, [...] Refill(s) Start Date: 07/05/22 Status: Ordered Insulin [place] (Disposable) (5 sources) Start: 03-10-2021 Insulin Needle [...] tab(s), 0 Refill(s), 09/27/22 16:01:00 EDT, Pharmacy: [facility] #[id number], 175.3, cm, 09/20/22 0:36:00 EDT, Height, 160.5 [...] # 60 tab(s), 1 Refill(s), Pharmacy: [facility] [address], Diabetes mellitus type 2 CKD (chronic [...] 11, 2013 11:00pm July 21, 2017 12:07pm Rnzskfic-Ieav-Ts-Calcium-Min s (Therems-M) 9 mg iron-400 mcg tablet (5 sources) Start: 10-01-2021 Otjhnttl-Agjo-Yx-Calcium-Min s (Therems-M) 9 mg iron-400 mcg tablet Active 1 TABLET PO DAILY September 30, 2021 11:00pm Start: 10-01-2021 Multivit-Iron- Ys-Vmjflbg-Ajsm (Therems-M) 9 mg iron-400 mcg tablet Active 1 TABLET PO DAILY October 01, 2021 12:00am nystatin [id number] unt/ml oral suspension (1 source) Polyene Antifungal Start: 09-20-2022 End: 10-04-2022 take 1 dose by mouth four times daily nystatin 100,000 units/mL oral suspension Dose : 500,000 unit(s) = 5 mL, Swish & Swallow, QID, X 14 day(s), # 280 mL, 0 Refill(s), 10/04/22 16:01:00 EDT, Pharmacy: [facility] #[id number], 175.3, cm, 09/20/22 0:36:00 EDT, Height Start Date: 09/20/22 Stop Date: 10/04/22 Status: Ordered Providence-3 Fatty Acids-Fish Oil (5 sources) Start: 01-27-2016 Providence-3 Fatty Acids-Fish Oil Active 2 EACH PO TWICE A DAY January 26, 2016 11:00pm Start: 01-27-2016 Providence-3 Fatty Acids-Fish Oil Active 2 EACH PO TWICE A DAY January 27, 2016 12:00am omeprazole 40 mg delayed release oral capsule (20 sources) Proton Pump Inhibitor Start: 06-07-2024 omeprazo le 40 mg oral delayed release capsule Dose : 40 mg = 1 cap(s), Oral, qAM, # 90 cap(s), 1 Refill(s), Pharmacy: [facility] [address], 174.5, cm, 05/17/24 13:33:00 EST, Height, kg, [...] dosing, # 1 EA, 0 Refill(s), Pharmacy: [facility], Diabetes mellitus type 2, 175.3, cm, [...] qHS, # 120 cap(s), 2 Refill(s), Pharmacy: [place] [address], Diabetic neuropathy, 174.5, cm, 05/17/24 13:33:00 EST, [...] qWeek, # 12 cap(s), 1 Refill(s), Pharmacy: [place] [address], 174.5, cm, 05/17/24 13:33:00 EST, Height, kg, 05/17/24 13:33:00 EST, Dosing Weight Start Date: 05/23/24 Status: Ordered Quantity: 12.0 Unit: cap(s) Repeat number: 2 Start: 12-13-2023 Vitamin D3 125 0 mcg (50,000 intl units) oral capsule Dose : 1,250 mcg = 1 cap(s), Oral, qWeek, # 12 cap(s), 1 Refill(s), Pharmacy: [place] [address], 175, cm, 12/13/23 14:55:00 EDT, Height, kg, 12/13/23 14:55:00 EDT, Dosing Weight Start Date: 12/13/23 Status: Ordered Quantity: 12.0 Unit: cap(s) Repeat number: 2 Start: 12-13-2023 Vitamin D3 125 0 mcg (50,000 intl units) oral capsule Dose : 1,250 mcg = 1 cap(s), Oral, qWeek, # 12 cap(s), 1 Refill(s), Pharmacy: [place] [address], 175, cm, 12/13/23 14:55:00 EDT, Height, kg, [...] sites, # 1 EA, 2 Refill(s), Pharmacy: [facility] [address], 175, cm, 02/17/23 14:16:00 EDT, Height, kg, [...] Walk Teston 025 6 Minute Walk Test [facility]Neurology [address] [place] [address] MR#: [id number] Acct: [id number] Name: GLORIA RODRIGUEZ Rep #: [id number] : 1955 68 From: Mj Mc DO Referring Dr: Amelie Ruby LOG HAULER LOG HAULER-C Status: REG CLI Location: PSN Date: Sex: F C PSN 6 Minute Walk Test 6 Minute Walk Test 6 Minute Walk Test: 6 Minute Walk Test PSN:6-Minute Walk Test Start: 09/20/24 14:16 Freq: Status: Active Protocol: RESP.6MINW Document 09/20/24 14:16 [facility] (Rec: 09/20/24 14:21 [facility] [id number]) 6 Minute Walk Test Date Performed 09/20/24 Time Performed 13:45 Height 5 ft 9 in Weight: 274 lb Weight in Pounds 274.[address]: Amelie Ruby LOG HAULER Assistive device Walker used: Pre-test Oxygen Delivery [...] Date Dictated: 09/21/24 1302 Date Transcribed: 09/21/241301 Immigration Paralegal: Dr. Mj Mc DO Signed Normal [facility] Pulmonary Visit Reporton Pulmonary Visit Report [facility] [place] [address] [place] [address] OFFICE VISIT Date of Service: 08/22/24 MR#: [id number] Acct: [id number] Name: GLORIA RODRIGUEZ Óscar Rep #: [id number] : 1955 Provider: ADAM Ruby Age/Sex: 68/F Location: [facility] Status: Signed Assessment and Plan Assessment and [...] Additional Comments: This note was generated with [employer] dictation software. It may contain incorrect words, [...] Visit Reasons: Surgery clearance Chief Complaint: F/U Child'S Nurse Required: No Accompanied by: Self Allergies codeine Allergy (Severe, Verified 08/22/24 11:04) MEMORY LOSS egg Allergy (Severe, Verified 08/22/24 11:04) FLU SYMTOPMS, WEEKNESS morphine Allergy (Severe, Verified 08/22/24 11:04) CARDIAC ARREST venom-honey bee (bee venom (ho (more content not included)... Normal [facility] .Auto Diffon 06-22-2024 Basophil, Absolute 0.0 10 3/mcL Normal 0.0-0.[address] [facility] Comment on above: Performed By: #### C NATI, EB, ANNT, ANEU, GFR, CMP, ESR #### [place] [address] [place], [place] [address] Basophils/100 WBC (Bld) 0.4 % Normal 0.0-2.5 [facility] Comment on above: Performed By: #### C NATI, ANN PARSONT, ANEU, GFR, CMP, ESR #### [place] [address] [place], [place] [address] Eosinophil, Absolute 0.1 10 3/mcL Normal 0.0-0.7 [facility] Comment on above: Performed By: #### C NATI, CHAR PARSON, ANEU, GFR, CMP, ESR #### [place] [address] [place], [place] [address] Eosinophils/100 WBC (Bld) 1.6 % Normal 0.0-7.0 [facility] Comment on above: Performed By: #### C BC, ADIFF, VANCT, ANEU, GFR, CMP, ESR #### [address] [address] Lymphocyte, Absolute 1.3 10 3/mcL Normal 0.9-4.3 [facility] Comment on above: Performed By: #### C BC, ADIFF, VANCT, ANEU, GFR, CMP, ESR #### [address] [address] Lymphocytes/100 WBC (Bld) 20.3 % Normal 20.0-40.0 [facility] Comment on above: Performed By: #### C BC, ADIFF, VANCT, ANEU, GFR, CMP, ESR #### [address] [address] Monocyte, Absolute 0.7 10 3/mcL Normal 0.1-1.[address] [facility] Comment on above: Performed By: #### C BC, ADIFF, VANCT, ANEU, GFR, CMP, ESR #### [address] [address] Monocytes/100 WBC (Bld) 10.9 % Normal 2.0-13.0 [facility] Comment on above: Performed By: #### C BC, ADIFF, VANCT, ANEU, GFR, CMP, ESR #### [address] [address] Neutrophils/100 WBC (Bld) 66.8 % Normal 50.0-75.0 [facility] Comment on above: Performed By: #### C BC, ADIFF, VANCT, ANEU, GFR, CMP, ESR #### [address] [address] .GFRon 06-22-2024 Estimated Glomerular Filtration Rate 36 ml/min/1.73sqm Normal [facility] Comment on above: Result Comment: Stages of [...] ADIFF, VANCT, ANEU, GFR, CMP, ESR #### [place] [address] [place], [place] [address] Estimated Glomerular Filtration Rate 38 ml/min/1.73sqm Normal [facility] Comment on above: Result Comment: Stages of [...] ADIFF, VANCT, ANEU, GFR, CMP, ESR #### [place] [address] [place], [place] [address] .NEUABSon 06-22-2024 Neutrophil, Absolute 4.1 10 3/mcL Normal 2.3-8.1 [facility] Comment on above: Performed By: #### C BC, ADIFF, VANCT, ANEU, GFR, CMP, ESR #### [place] [address] [place], [place] [address] A1Con 06-22-2024 Glucose [Mass/Vol] 105 mg/dL Normal [facility] Comment on above: Result Comment: Ly mated Average Glucose calculated by equation ((28.7xA1C)-46.7) Estimated average glucose (eAG) is a calculated value from Hemoglobin A1C and is new accounts banking representative of the average blood glucose level in the last 2-3 month period. Normal range: less than 114 mg/dL Performed By: #### C BC, ADIFF, VANCT, ANEU, GFR, CMP, ESR #### [place] [address] HbA1c (Bld) [Mass fraction] 5.3 % Normal 4.3-6.4 [facility] Comment on above: Performed By: #### C BC, ADIFF, VANCT, ANEU, GFR, CMP, ESR #### [place] [address] CBCon 06-22-2024 Erythrocyte distribution width (RBC) [Ratio] 15.7 % High 11.5-15.5 [facility] Comment on above: Performed By: #### C BC, ADIFF, VANCT, ANEU, GFR, CMP, ESR #### [place] [address] Hematocrit (Bld) [Volume fraction] 35.3 % Normal 34.0-46.0 [facility] Comment on above: Performed By: #### C BC, ADIFF, VANCT, ANEU, GFR, CMP, ESR #### [place] [address] Hgb 12.3 G/dL Normal 12.0-16.0 [facility] Comment on above: Performed By: #### C BC, ADIFF, VANCT, ANEU, GFR, CMP, ESR #### [place] [address] MCH (RBC) [Entitic mass] 31.9 pg Normal 27.0-33.0 [facility] Comment on above: Performed By: #### C BC, ADIFF, VANCT, ANEU, GFR, CMP, ESR #### [place] [address] MCHC 34.8 G/dL Normal 32.0-36.0 [facility] Comment on above: Performed By: #### C BC, ADIFF, VANCT, ANEU, GFR, CMP, ESR #### [place] [address] MCV (RBC) [Entitic vol] 91.5 fL Normal 80.0-99.0 [facility] Comment on above: Performed By: #### C BC, ADIFF, VANCT, ANEU, GFR, CMP, ESR #### [address] [address] Platelet 135 10 3/mcL Low 150-450 [facility] Comment on above: Performed By: #### C BC, ADIFF, VANCT, ANEU, GFR, CMP, ESR #### [address] [address] Platelet mean volume (Bld) [Entitic vol] 8.8 fL Normal 6.6-10.5 [facility] Comment on above: Performed By: #### C BC, ADIFF, VANCT, ANEU, GFR, CMP, ESR #### [address] [address] RBC 3.86 10 6/mcL Low 4.10-5.30 [facility] Comment on above: Performed By: #### C BC, ADIFF, VANCT, ANEU, GFR, CMP, ESR #### [address] [address] WBC 6.2 10 3/mcL Normal 4.5-10.8 [facility] Comment on above: Performed By: #### C BC, ADIFF, VANCT, ANEU, GFR, CMP, ESR #### [address] [address] CMPon 06-22-2024 Albumin Level 2.9 G/dL Low 3.4-4.8 [facility] Comment on above: Performed By: #### C BC, ADIFF, VANCT, ANEU, GFR, CMP, ESR #### [address] [address] Albumin/Globulin [Mass ratio] 0.7 {ratio} Low 1.1-2.5 [facility] Comment on above: Performed By: #### C BC, ADIFF, VANCT, ANEU, GFR, CMP, ESR #### [address] [address] ALP [Catalytic activity/Vol] 95 U/L Normal 40-135 [facility] Comment on above: Performed By: #### C BC, ADIFF, VANCT, ANEU, GFR, CMP, ESR #### [address] [address] ALT [Catalytic activity/Vol] 37 U/L Normal 14-59 [facility] Comment on above: Performed By: #### C BC, ADIFF, VANCT, ANEU, GFR, CMP, ESR #### [address] [address] AST [Catalytic activity/Vol] 49 U/L High 10-40 [facility] Comment on above: Performed By: #### C BC, ADIFF, VANCT, ANEU, GFR, CMP, ESR #### [address] [address] Bili Total 0.5 mg/dL Normal 0.2-1.0 [facility] Comment on above: Result Comment: Use of this assay is not recommended for patients undergoing treatment with eltrombopag due to the potential for falsely elevated results. Performed By: #### C BC, ADIFF, VANCT, ANEU, GFR, CMP, ESR #### [address] [address] BUN/Creatinine Ratio 22 ratio Normal 7-[address] [facility] Comment on above: Performed By: #### C BC, ADIFF, VANCT, ANEU, GFR, CMP, ESR #### [address] [address] Calcium [Mass/Vol] 10.6 mg/dL High 8.4-10.2 [facility] Comment on above: Performed By: #### C BC, ADIFF, VANCT, ANEU, GFR, CMP, ESR #### [address] [address] Chloride [Moles/Vol] 97 mmol/L Low 98-[address] [facility] Comment on above: Performed By: #### C BC, ADIFF, VANCT, ANEU, GFR, CMP, ESR #### [address] [address] CO2 [Moles/Vol] 28 mmol/L Normal 23-31 [facility] Comment on above: Performed By: #### C BC, ADIFF, VANCT, ANEU, GFR, CMP, ESR #### [address] [address] Creatinine [Mass/Vol] 1.57 mg/dL High 0.55-1.02 [facility] Comment on above: Result Comment: Test ing performed on [employer] Dimension EXL analyzer using a modified kinetic Gagandeep technique. Performed By: #### C BC, ADIFF, VANCT, ANEU, GFR, CMP, ESR #### [address] [address] Electrolyte Balance 9.0 mEq/L Normal 4.0-15.0 [facility] Comment on above: Performed By: #### C BC, ADIFF, VANCT, ANEU, GFR, CMP, ESR #### [address] [address] Globulin 4.0 G/dL High 1.5-3.8 [facility] Comment on above: Performed By: #### C BC, ADIFF, VANCT, ANEU, GFR, CMP, ESR #### [address] [address] Glucose [Mass/Vol] 212 mg/dL High 80-115 [facility] Comment on above: Performed By: #### C BC, ADIFF, VANCT, ANEU, GFR, CMP, ESR #### [address] [address] Potassium [Moles/Vol] 5.0 mmol/L Normal 3.5-5.1 [facility] Comment on above: Performed By: #### C BC, ADIFF, VANCT, ANEU, GFR, CMP, ESR #### [address] [address] Sodium [Moles/Vol] 134 mmol/L Low 136-145 [facility] Comment on above: Performed By: #### C BC, ADIFF, VANCT, ANEU, GFR, CMP, ESR #### [address] [address] Total Protein 6.9 G/dL Normal 6.4-8.2 [facility] Comment on above: Performed By: #### C BC, ADIFF, VANCT, ANEU, GFR, CMP, ESR #### [address] [address] Urea nitrogen [Mass/Vol] 34 mg/dL High 7-18 [facility] Comment on above: Performed By: #### C BC, ADIFF, VANCT, ANEU, GFR, CMP, ESR #### [address] [address] DLDLon 06-22-2024 Direct LDL Cholesterol 56 mg/dL Normal 0-99 [facility] Comment on above: Result Comment: Dire ct LDL Cholesterol Reference Interval: Optimal: <100 mg/dL Near Optimal/above optimal: 100-129 mg/dL Borderline high: 130-159 mg/dL High: 160-189 mg/dL Very high: >=190 mg/dL Performed By: #### C BC, ADIFF, VANCT, ANEU, GFR, CMP, ESR #### [address] [address] LIPIDon 06-22-2024 Cholesterol [Mass/Vol] 173 mg/dL Normal 0-200 [facility] Comment on above: Result Comment: Chol esterol Reference Interval: Less than 200 Desirable 200-239 Borderline high risk 240 and above High risk Performed By: #### C BC, ADIFF, VANCT, ANEU, GFR, CMP, ESR #### [address] [address] Cholesterol in HDL [Mass/Vol] 43 mg/dL Normal 40-60 [facility] Comment on above: Performed By: #### C BC, ADIFF, VANCT, ANEU, GFR, CMP, ESR #### [place] [address] [place], [place] [address] LDL Cholesterol Not Valid Normal 0-130 [facility] Comment on above: Result Comment: Trig lyceride >400 invalidates the calculated LDL. Performed By: #### C BC, ADIFF, VANCT, ANEU, GFR, CMP, ESR #### [address] [address] Triglyceride [Mass/Vol] 577 mg/dL High 0-150 [facility] Comment on above: Result Comment: Trig lyceride Reference Interval: Less than 150 Normal 150-199 Borderline high risk 200-499 High risk 500 or higher Very high risk Performed By: #### C BC, ADIFF, VANCT, ANEU, GFR, CMP, ESR #### [address] [address] RFPon 06-22-2024 Albumin Level 3.0 G/dL Low 3.4-4.8 [facility] Comment on above: Performed By: #### C BC, ADIFF, VANCT, ANEU, GFR, CMP, ESR #### [address] [address] BUN/Creatinine Ratio 21 ratio Normal 7-[address] [facility] Comment on above: Performed By: #### C BC, ADIFF, VANCT, ANEU, GFR, CMP, ESR #### [address] [address] Calcium [Mass/Vol] 10.6 mg/dL High 8.4-10.2 [facility] Comment on above: Performed By: #### C BC, ADIFF, VANCT, ANEU, GFR, CMP, ESR #### [address] [address] Chloride [Moles/Vol] 99 mmol/L Normal 98-[address] [facility] Comment on above: Performed By: #### C BC, ADIFF, VANCT, ANEU, GFR, CMP, ESR #### [address] [address] CO2 [Moles/Vol] 28 mmol/L Normal 23-31 [facility] Comment on above: Performed By: #### C BC, ADIFF, VANCT, ANEU, GFR, CMP, ESR #### [address] [place] [address] Creatinine [Mass/Vol] 1.50 mg/dL High 0.55-1.02 [facility] Comment on above: Result Comment: Test ing performed on Siemens Dimension EXL analyzer using a modified kinetic Gagandeep technique. Performed By: #### C BC, ADIFF, VANCT, ANEU, GFR, CMP, ESR #### [address] [address] Electrolyte Balance 8.0 mEq/L Normal 4.0-15.0 [facility] Comment on above: Performed By: #### C BC, ADIFF, VANCT, ANEU, GFR, CMP, ESR #### [address] [address] Glucose [Mass/Vol] 212 mg/dL High 80-115 [facility] Comment on above: Performed By: #### C BC, ADIFF, VANCT, ANEU, GFR, CMP, ESR #### [address] [address] Phosphate [Mass/Vol] 2.4 mg/dL Normal 2.3-4.[address] [facility] Comment on above: Performed By: #### C BC, ADIFF, VANCT, ANEU, GFR, CMP, ESR #### [address] [address] Potassium [Moles/Vol] 4.9 mmol/L Normal 3.5-5.1 [facility] Comment on above: Performed By: #### C BC, ADIFF, VANCT, ANEU, GFR, CMP, ESR #### [address] [address] Sodium [Moles/Vol] 135 mmol/L Low 136-145 [facility] Comment on above: Performed By: #### C BC, ADIFF, VANCT, ANEU, GFR, CMP, ESR #### [address] [address] Urea nitrogen [Mass/Vol] 32 mg/dL High 7-18 [facility] Comment on above: Performed By: #### C BC, ADIFF, VANCT, ANEU, GFR, CMP, ESR #### [address] [address] TSHon 06-22-2024 TSH Qn 1.20 m[IU]/L Normal 0.36-3.74 [facility] Comment on above: Performed By: #### C BC, ADIFF, VANCT, ANEU, GFR, CMP, ESR #### [address] [address] VIDHon 06-22-2024 Vit. D 25-Hydroxy 42.1 ng/mL Normal [facility] Comment on above: Result Comment: Inte rpretive Values Based on Total 25([place]) Vitamin D: Deficient <20 ng/mL Insufficient 20 - <30 ng/mL Sufficient 30-100 ng/mL Performed By: #### C BC, ADIFF, VANCT, ANEU, GFR, CMP, ESR #### [address] [address] VIDHon 04-19-2024 Vit. D 25-Hydroxy 52.5 ng/mL Normal [facility] Comment on above: Result Comment: Inte rpretive Values Based on Total 25([place]) Vitamin D: Deficient <20 ng/mL Insufficient 20 - <30 ng/mL Sufficient 30-100 ng/mL Performed By: #### C BC, ADIFF, VANCT, ANEU, GFR, CMP, ESR #### [address] [address] .GFRon 04-17-2024 GFR Non- 24 ml/min/1.73sqm Normal [facility] Comment on above: Result Comment: GFR Population [...] ADKAHLIL, ANNT, ANEU, GFR, CMP, ESR #### [address] [address] GFR 29 ml/min/1.73sqm [facility] Comment on above: Result Comment: GFR Population [...] EB, ANNT, ANEU, GFR, CMP, ESR #### [address] [address] GFR Non- 24 ml/min/1.73sqm [facility] Comment on above: Result Comment: GFR Population [...] meters Performed By: #### U A #### [address] [address] GFR 29 ml/min/1.73sqm Normal [facility] Comment on above: Result Comment: GFR Population [...] meters Performed By: #### U A #### [address] [address] A1Con 04-17-2024 Glucose [Mass/Vol] 126 mg/dL Normal [facility] Comment on above: Result Comment: Ly mated Average Glucose calculated by equation ((28.7xA1C)-46.7) Estimated average glucose (eAG) is a calculated value from Hemoglobin A1C and is new accounts banking representative of the average blood glucose level in the last 2-3 month period. Normal range: less than 114 mg/dL Performed By: #### C BC, ADKAHLIL, VANCT, ANEU, GFR, CMP, ESR #### [place] [address] [place], [place] [address] HbA1c (Bld) [Mass fraction] 6.0 % Normal 4.3-6.4 [facility] Comment on above: Performed By: #### C BC, ADIFF, VANCT, ANEU, GFR, CMP, ESR #### [address] [place] [address] [place], [place] [address] CMPon 04-17-2024 Albumin Level 3.1 G/dL Low 3.4-4.8 [facility] Comment on above: Performed By: #### C BC, ADKAHLIL, VANCT, ANEU, GFR, CMP, ESR #### [place] [place], [place] [address] Albumin/Globulin [Mass ratio] 0.8 {ratio} Low 1.1-2.5 [facility] Comment on above: Performed By: #### C BC, ADIFF, VANCT, ANEU, GFR, CMP, ESR #### [address] [address] ALP [Catalytic activity/Vol] 94 U/L Normal 40-135 [facility] Comment on above: Performed By: #### C BC, ADIFF, VANCT, ANEU, GFR, CMP, ESR #### [address] [address] ALT [Catalytic activity/Vol] 27 U/L Normal 14-59 [facility] Comment on above: Performed By: #### C BC, ADIFF, VANCT, ANEU, GFR, CMP, ESR #### [place] [address] AST [Catalytic activity/Vol] 29 U/L Normal 10-40 [facility] Comment on above: Performed By: #### C BC, ADIFF, VANCT, ANEU, GFR, CMP, ESR #### [address] [address] Bili Total 0.7 mg/dL Normal 0.2-1.0 [facility] Comment on above: Result Comment: Use of this assay is not recommended for patients undergoing treatment with eltrombopag due to the potential for falsely elevated results. Performed By: #### C BC, ADIFF, VANCT, ANEU, GFR, CMP, ESR #### [address] [address] BUN/Creatinine Ratio 21 ratio Normal 7-[address] [facility] Comment on above: Performed By: #### C BC, ADIFF, VANCT, ANEU, GFR, CMP, ESR #### [address] [address] Calcium [Mass/Vol] 9.9 mg/dL Normal 8.4-10.2 [facility] Comment on above: Performed By: #### C BC, ADIFF, VANCT, ANEU, GFR, CMP, ESR #### [address] [place] [address] Chloride [Moles/Vol] 101 mmol/L Normal 98-[address] [facility] Comment on above: Performed By: #### C BC, ADIFF, VANCT, ANEU, GFR, CMP, ESR #### [address] [address] CO2 [Moles/Vol] 29 mmol/L Normal 23-31 [facility] Comment on above: Performed By: #### C BC, ADIFF, VANCT, ANEU, GFR, CMP, ESR #### [address] [address] Creatinine [Mass/Vol] 2.06 mg/dL High 0.55-1.02 [facility] Comment on above: Result Comment: Test ing performed on [employer] Dimension EXL analyzer using a modified kinetic Gagandeep technique. Performed By: #### C BC, ADIFF, VANCT, ANEU, GFR, CMP, ESR #### [place] [address] Electrolyte Balance 10.0 mEq/L Normal 4.0-15.0 [facility] Comment on above: Performed By: #### C BC, ADIFF, VANCT, ANEU, GFR, CMP, ESR #### [place] [address] Globulin 3.7 G/dL Normal [facility] Comment on above: Performed By: #### C BC, ADIFF, VANCT, ANEU, GFR, CMP, ESR #### [address] [address] Glucose [Mass/Vol] 128 mg/dL High 80-115 [facility] Comment on above: Performed By: #### C BC, ADIFF, VANCT, ANEU, GFR, CMP, ESR #### [address] [address] Potassium [Moles/Vol] 4.1 mmol/L Normal 3.5-5.1 [facility] Comment on above: Performed By: #### C BC, ADIFF, VANCT, ANEU, GFR, CMP, ESR #### [address] [address] Sodium [Moles/Vol] 140 mmol/L Normal 136-145 [facility] Comment on above: Performed By: #### C BC, ADIFF, VANCT, ANEU, GFR, CMP, ESR #### [address] [address] Total Protein 6.8 G/dL Normal 6.4-8.2 [facility] Comment on above: Performed By: #### C BC, ADIFF, VANCT, ANEU, GFR, CMP, ESR #### [address] [address] Urea nitrogen [Mass/Vol] 44 mg/dL High 7-18 [facility] Comment on above: Performed By: #### C BC, ADIFF, VANCT, ANEU, GFR, CMP, ESR #### [address] [address] FT3on 04-17-2024 Free T3 [Mass/Vol] 2.39 pg/mL Normal 2.30-4.00 [facility] Comment on above: Performed By: #### C BC, ADIFF, VANCT, ANEU, GFR, CMP, ESR #### [address] [address] FT4on 04-17-2024 Free T4 [Mass/Vol] 1.11 ng/dL Normal 0.76-1.46 [facility] Comment on above: Performed By: #### C BC, ADIFF, VANCT, ANEU, GFR, CMP, ESR #### [address] [address] LABORATORYOrdered By: SYSTEM SYSTEM on 04-17-2024 Albumin [...] calculated value from Hemoglobin A1C and is new accounts banking representative of the average blood glucose level [...] 04-17-2024 Cholesterol [Mass/Vol] 106 mg/dL Normal 0-200 [facility] Comment on above: Result Comment: Chol esterol Reference Interval: Less than 200 Desirable 200-239 Borderline high risk 240 and above High risk Performed By: #### C EB DAMIAN VANCT, ANEU, GFR, CMP, ESR #### [facility] [address] [place], [place] [address] Cholesterol in HDL [Mass/Vol] 38 mg/dL Low 40-60 [facility] Comment on above: Performed By: #### C EB DAMIAN VANCT, ANEU, GFR, CMP, ESR #### [address] [address] Cholesterol in LDL [Mass/Vol] 17 mg/dL Normal 0-130 [facility] Comment on above: Performed By: #### C BC, ADKAHLIL, VANCT, ANEU, GFR, CMP, ESR #### [address] [address] Triglyceride [Mass/Vol] 253 mg/dL High 0-150 [facility] Comment on above: Result Comment: Trig lyceride Reference Interval: Less than 150 Normal 150-199 Borderline high risk 200-499 High risk 500 or higher Very high risk Performed By: #### C BC, EB, VANCT, ANEU, GFR, CMP, ESR #### [address] [address] PTHon 04-17-2024 PTH, Intact 99.2 pg/mL High 18.5-88.0 [facility] Comment on above: Performed By: #### U A #### [address] [address] RFPon 04-17-2024 Albumin Level 3.1 G/dL Low 3.4-4.8 [facility] Comment on above: Performed By: #### U A #### [address] [address] BUN/Creatinine Ratio 21 ratio Normal 7-[address] [facility] Comment on above: Performed By: #### U A #### [address] [address] Calcium [Mass/Vol] 9.7 mg/dL Normal 8.4-10.2 [facility] Comment on above: Performed By: #### U A #### [address] [address] Chloride [Moles/Vol] 101 mmol/L Normal 98-[address] [facility] Comment on above: Performed By: #### U A #### [address] [address] CO2 [Moles/Vol] 29 mmol/L Normal 23-31 [facility] Comment on above: Performed By: #### U A #### [address] [address] Creatinine [Mass/Vol] 2.09 mg/dL High 0.55-1.02 [facility] Comment on above: Result Comment: Test ing performed on Siemens Dimension EXL analyzer using a modified kinetic Gagandeep technique. Performed By: #### U A #### [address] [address] Electrolyte Balance 11.0 mEq/L Normal 4.0-15.0 [facility] Comment on above: Performed By: #### U A #### [address] [address] Glucose [Mass/Vol] 125 mg/dL High 80-115 [facility] Comment on above: Performed By: #### U A #### [address] [address] Phosphate [Mass/Vol] 3.8 mg/dL Normal 2.3-4.[address] [facility] Comment on above: Performed By: #### U A #### [address] [address] Potassium [Moles/Vol] 4.2 mmol/L Normal 3.5-5.1 [facility] Comment on above: Performed By: #### U A #### [address] [address] Sodium [Moles/Vol] 141 mmol/L Normal 136-145 [facility] Comment on above: Performed By: #### U A #### [address] [address] Urea nitrogen [Mass/Vol] 43 mg/dL High 7-18 [facility] Comment on above: Performed By: #### U A #### [address] [address] TSHon 04-17-2024 TSH Qn 0.97 m[IU]/L Normal 0.36-3.74 [facility] Comment on above: Performed By: #### C BC, ADIFF, VANCT, ANEU, GFR, CMP, ESR #### [facility] [address] [place], [place] [address] MRI SPINE LUMBAR W/ + W/O CO [...] 04/02/2024 7:32:29 PM Ordering Provider: AMALIA Moss [facility] Cardiology Visit Reporton Cardiology Visit Report [facility] [address] [place] [address] OFFICE VISIT Date of Service: 03/20/24 MR#: [id number] Acct: [id number] Name: GLORIA RODRIGUEZ Rep #: [id number] : 1955 Provider: ADAM power Age/Sex: 68/F [place] [facility] [place] Status: Signed HPI HPI History of Present [...] room air Intake Visit Reasons: 6 M Child'S Nurse Required: No Is patient in pain?: No [...] KwikPen ([id number]) (more content not included)... Normal [facility] .Auto Diffon 03-19-2024 Basophil, Absolute 0.0 10 3/mcL Normal 0.0-0.[address] [facility] Comment on above: Performed By: #### V ANCT, ANEU, GFR, ADIFF, CMP, ESR, CBC #### [facility] [address] [place], [place] [address] Basophils/100 WBC (Bld) 0.2 % Normal 0.0-2.5 [facility] Comment on above: Performed By: #### V ANCT, ANEU, GFR, ADIFF, CMP, ESR, CBC #### [address] [address] Eosinophil, Absolute 0.2 10 3/mcL Normal 0.0-0.7 [facility] Comment on above: Performed By: #### V ANCT, ANEU, GFR, ADIFF, CMP, ESR, CBC #### [address] [address] Eosinophils/100 WBC (Bld) 2.3 % Normal 0.0-7.0 [facility] Comment on above: Performed By: #### V ANCT, ANEU, GFR, ADIFF, CMP, ESR, CBC #### [address] [address] Lymphocyte, Absolute 3.7 10 3/mcL Normal 0.9-4.3 [facility] Comment on above: Performed By: #### V ANCT, ANEU, GFR, ADIFF, CMP, ESR, CBC #### [address] [address] Lymphocytes/100 WBC (Bld) 36.3 % Normal 20.0-40.0 [facility] Comment on above: Performed By: #### V ANCT, ANEU, GFR, ADIFF, CMP, ESR, CBC #### [address] [address] Monocyte, Absolute 0.6 10 3/mcL Normal 0.1-1.[address] [facility] Comment on above: Performed By: #### V ANCT, ANEU, GFR, ADIFF, CMP, ESR, CBC #### [address] [address] Monocytes/100 WBC (Bld) 6.2 % Normal 2.0-13.0 [facility] Comment on above: Performed By: #### V ANCT, ANEU, GFR, ADIFF, CMP, ESR, CBC #### [address] [address] Neutrophils/100 WBC (Bld) 55.0 % Normal 50.0-75.0 [facility] Comment on above: Performed By: #### V ANCT, ANEU, GFR, ADIFF, CMP, ESR, CBC #### [address] [address] .GFRon 03-19-2024 GFR 30 ml/min/1.73sqm Normal [facility] Comment on above: Result Comment: GFR Population [...] ADIFF, VANCT, ANEU, GFR, CMP, ESR #### [address] [address] GFR Non- 24 ml/min/1.73sqm Normal [facility] Comment on above: Result Comment: GFR Population [...] ADIFF, VANCT, ANEU, GFR, CMP, ESR #### [address] [address] .NEUABSon 03-19-2024 Neutrophil, Absolute 5.6 10 3/mcL Normal 2.3-8.1 [facility] Comment on above: Performed By: #### C BC, ADIFF, VANCT, ANEU, GFR, CMP, ESR #### [address] [address] CBCon 03-19-2024 Erythrocyte distribution width (RBC) [Ratio] 14.7 % Normal 11.5-15.5 [facility] Comment on above: Performed By: #### V ANCT, ANEU, GFR, ADIFF, CMP, ESR, CBC #### [place] [address] Hematocrit (Bld) [Volume fraction] 38.0 % Normal 34.0-46.0 [facility] Comment on above: Performed By: #### V ANCT, ANEU, GFR, ADIFF, CMP, ESR, CBC #### [place] [address] Hgb 12.8 G/dL Normal 12.0-16.0 [facility] Comment on above: Performed By: #### V ANCT, ANEU, GFR, ADIFF, CMP, ESR, CBC #### [place] [address] MCH (RBC) [Entitic mass] 31.0 pg Normal 27.0-33.0 [facility] Comment on above: Performed By: #### V ANCT, ANEU, GFR, ADIFF, CMP, ESR, CBC #### [place] [address] MCHC 33.7 G/dL Normal 32.0-36.0 [facility] Comment on above: Performed By: #### V ANCT, ANEU, GFR, ADIFF, CMP, ESR, CBC #### [place] [address] MCV (RBC) [Entitic vol] 92.0 fL Normal 80.0-99.0 [facility] Comment on above: Performed By: #### V ANCT, ANEU, GFR, ADIFF, CMP, ESR, CBC #### [address] [place] [address] Platelet 128 10 3/mcL Low 150-450 [facility] Comment on above: Performed By: #### V ANCT, ANEU, GFR, ADIFF, CMP, ESR, CBC #### [address] [address] Platelet mean volume (Bld) [Entitic vol] 9.3 fL Normal 6.6-10.5 [facility] Comment on above: Performed By: #### V ANCT, ANEU, GFR, ADIFF, CMP, ESR, CBC #### [address] [address] RBC 4.13 10 6/mcL Normal 4.10-5.30 [facility] Comment on above: Performed By: #### V ANCT, ANEU, GFR, ADIFF, CMP, ESR, CBC #### [address] [address] WBC 10.2 10 3/mcL Normal 4.5-10.8 [facility] Comment on above: Performed By: #### V ANCT, ANEU, GFR, ADIFF, CMP, ESR, CBC #### [address] [address] CMPon 03-19-2024 Albumin Level 2.9 G/dL Low 3.4-4.8 [facility] Comment on above: Performed By: #### C BC, ADIFF, VANCT, ANEU, GFR, CMP, ESR #### [address] [address] Albumin/Globulin [Mass ratio] 0.8 {ratio} Low 1.1-2.5 [facility] Comment on above: Performed By: #### C BC, ADIFF, VANCT, ANEU, GFR, CMP, ESR #### [address] [address] ALP [Catalytic activity/Vol] 93 U/L Normal 40-135 [facility] Comment on above: Performed By: #### C BC, ADIFF, VANCT, ANEU, GFR, CMP, ESR #### [address] [address] ALT [Catalytic activity/Vol] 26 U/L Normal 14-59 [facility] Comment on above: Performed By: #### C BC, ADIFF, VANCT, ANEU, GFR, CMP, ESR #### [address] [address] AST [Catalytic activity/Vol] 25 U/L Normal 10-40 [facility] Comment on above: Performed By: #### C BC, ADIFF, VANCT, ANEU, GFR, CMP, ESR #### [address] [address] Bili Total 0.3 mg/dL Normal 0.2-1.0 [facility] Comment on above: Result Comment: Use of this assay is not recommended for patients undergoing treatment with eltrombopag due to the potential for falsely elevated results. Performed By: #### C BC, ADIFF, VANCT, ANEU, GFR, CMP, ESR #### [address] [address] BUN/Creatinine Ratio 17 ratio Normal 7-[address] [facility] Comment on above: Performed By: #### C BC, ADIFF, VANCT, ANEU, GFR, CMP, ESR #### [address] [address] Calcium [Mass/Vol] 9.9 mg/dL Normal 8.4-10.2 [facility] Comment on above: Performed By: #### C BC, ADIFF, VANCT, ANEU, GFR, CMP, ESR #### [address] [address] Chloride [Moles/Vol] 103 mmol/L Normal 98-[address] [facility] Comment on above: Performed By: #### C BC, ADIFF, VANCT, ANEU, GFR, CMP, ESR #### [address] [address] CO2 [Moles/Vol] 24 mmol/L Normal 23-31 [facility] Comment on above: Performed By: #### C BC, ADIFF, VANCT, ANEU, GFR, CMP, ESR #### [address] [address] Creatinine [Mass/Vol] 2.03 mg/dL High 0.55-1.02 [facility] Comment on above: Result Comment: Test ing performed on Siemens Dimension EXL analyzer using a modified kinetic Gagandeep technique. Performed By: #### C BC, ADIFF, VANCT, ANEU, GFR, CMP, ESR #### [address] [address] Electrolyte Balance 13.0 mEq/L Normal 4.0-15.0 [facility] Comment on above: Performed By: #### C BC, ADIFF, VANCT, ANEU, GFR, CMP, ESR #### [address] [address] Globulin 3.8 G/dL Normal [facility] Comment on above: Performed By: #### C BC, ADIFF, VANCT, ANEU, GFR, CMP, ESR #### [address] [address] Glucose [Mass/Vol] 141 mg/dL High 80-115 [facility] Comment on above: Performed By: #### C BC, ADIFF, VANCT, ANEU, GFR, CMP, ESR #### [address] [address] Potassium [Moles/Vol] 4.1 mmol/L Normal 3.5-5.1 [facility] Comment on above: Performed By: #### C BC, ADIFF, VANCT, ANEU, GFR, CMP, ESR #### [address] [address] Sodium [Moles/Vol] 140 mmol/L Normal 136-145 [facility] Comment on above: Performed By: #### C BC, ADIFF, VANCT, ANEU, GFR, CMP, ESR #### [address] [address] Total Protein 6.7 G/dL Normal 6.4-8.2 [facility] Comment on above: Performed By: #### C BC, ADIFF, VANCT, ANEU, GFR, CMP, ESR #### [place] [facility] [address] [place], [place] [address] Urea nitrogen [Mass/Vol] 35 mg/dL High 7-18 [facility] Comment on above: Performed By: #### C BC, ADIFF, VANCT, ANEU, GFR, CMP, ESR #### [place] [facility] [address] [place], [place] [address] ESRon 03-19-2024 Erythrocyte Sed Rate 51 mm/hr High 0-[address] [facility] Comment on above: Performed By: #### C BC, ADIFF, VANCT, ANEU, GFR, CMP, ESR #### [place] [phone] [place], [place] [address] LABORATORYOrdered By: SYSTEM SYSTEM on 03-19-2024 Albumin [...] (03/19/24 12:54 PM) Normal AO Chemistry S [facility] 03-19-2024 Vancomycin Tr 10.7 mcg/mL Normal 5.0-20.0 [facility] Comment on above: Performed By: #### C BC, ADIFF, VANCT, ANEU, GFR, CMP, ESR #### [address] [address] LDose Vancomycin:(trough) Unknown Normal [facility] Comment on above: Performed By: #### C BC, ADIFF, VANCT, ANEU, GFR, CMP, ESR #### [address] [address] .Auto Diffon 03-12-2024 Basophil, Absolute 0.0 10 3/mcL Normal 0.0-0.[address] [facility] Comment on above: Performed By: #### C BC, ADIFF, VANCT, ANEU, GFR, CMP, ESR #### [address] [address] Basophils/100 WBC (Bld) 0.3 % Normal 0.0-2.5 [facility] Comment on above: Performed By: #### C BC, ADIFF, VANCT, ANEU, GFR, CMP, ESR #### [address] [place] [address] Eosinophil, Absolute 0.3 10 3/mcL Normal 0.0-0.7 [facility] Comment on above: Performed By: #### C BC, ADIFF, VANCT, ANEU, GFR, CMP, ESR #### [address] [address] Eosinophils/100 WBC (Bld) 2.4 % Normal 0.0-7.0 [facility] Comment on above: Performed By: #### C BC, ADIFF, VANCT, ANEU, GFR, CMP, ESR #### [address] [address] Lymphocyte, Absolute 2.2 10 3/mcL Normal 0.9-4.3 [facility] Comment on above: Performed By: #### C BC, ADIFF, VANCT, ANEU, GFR, CMP, ESR #### [address] [address] Lymphocytes/100 WBC (Bld) 18.2 % Low 20.0-40.0 [facility] Comment on above: Performed By: #### C BC, ADIFF, VANCT, ANEU, GFR, CMP, ESR #### [address] [address] Monocyte, Absolute 0.8 10 3/mcL Normal 0.1-1.[address] [facility] Comment on above: Performed By: #### C BC, ADIFF, VANCT, ANEU, GFR, CMP, ESR #### [address] [address] Monocytes/100 WBC (Bld) 7.0 % Normal 2.0-13.0 [facility] Comment on above: Performed By: #### C BC, ADIFF, VANCT, ANEU, GFR, CMP, ESR #### [address] [address] Neutrophils/100 WBC (Bld) 72.1 % Normal 50.0-75.0 [facility] Comment on above: Performed By: #### C BC, ADIFF, VANCT, ANEU, GFR, CMP, ESR #### [address] [address] .GFRon 03-12-2024 GFR Non- 27 ml/min/1.73sqm Normal [facility] Comment on above: Result Comment: GFR Population [...] DAMIAN VANCT, ANEU, GFR, CMP, ESR #### [address] [address] GFR 33 ml/min/1.73sqm [facility] Comment on above: Result Comment: GFR Population [...] DAMIAN VANCT, ANEU, GFR, CMP, ESR #### [place] [phone] [place], [place] [address] .NEUABSon 03-12-2024 Neutrophil, Absolute 8.7 10 3/mcL High 2.3-8.1 [facility] Comment on above: Performed By: #### C BC, ADIFF, VANCT, ANEU, GFR, CMP, ESR #### [address] [address] CBCon 03-12-2024 Erythrocyte distribution width (RBC) [Ratio] 14.6 % Normal 11.5-15.5 [facility] Comment on above: Performed By: #### C BC, ADIFF, VANCT, ANEU, GFR, CMP, ESR #### [place] [phone] Hematocrit (Bld) [Volume fraction] 36.8 % Normal 34.0-46.0 [facility] Comment on above: Performed By: #### C BC, ADIFF, VANCT, ANEU, GFR, CMP, ESR #### [address] [address] Hgb 12.4 G/dL Normal 12.0-16.0 [facility] Comment on above: Performed By: #### C BC, ADIFF, VANCT, ANEU, GFR, CMP, ESR #### [address] [address] MCH (RBC) [Entitic mass] 30.7 pg Normal 27.0-33.0 [facility] Comment on above: Performed By: #### C BC, ADIFF, VANCT, ANEU, GFR, CMP, ESR #### [place] [phone] MCHC 33.6 G/dL Normal 32.0-36.0 [facility] Comment on above: Performed By: #### C BC, ADIFF, VANCT, ANEU, GFR, CMP, ESR #### [address] [address] MCV (RBC) [Entitic vol] 91.3 fL Normal 80.0-99.0 [facility] Comment on above: Performed By: #### C BC, ADIFF, VANCT, ANEU, GFR, CMP, ESR #### [place] [id number] Platelet 139 10 3/mcL Low 150-450 [facility] Comment on above: Performed By: #### C BC, ADIFF, VANCT, ANEU, GFR, CMP, ESR #### [address] [address] Platelet mean volume (Bld) [Entitic vol] 9.2 fL Normal 6.6-10.5 [facility] Comment on above: Performed By: #### C BC, ADIFF, VANCT, ANEU, GFR, CMP, ESR #### [address] [address] RBC 4.03 10 6/mcL Low 4.10-5.30 [facility] Comment on above: Performed By: #### C BC, ADIFF, VANCT, ANEU, GFR, CMP, ESR #### [address] [address] WBC 12.0 10 3/mcL High 4.5-10.8 [facility] Comment on above: Performed By: #### C BC, ADIFF, VANCT, ANEU, GFR, CMP, ESR #### [address] [address] CMPon 03-12-2024 Albumin Level 2.9 G/dL Low 3.4-4.8 [facility] Comment on above: Performed By: #### C BC, ADIFF, VANCT, ANEU, GFR, CMP, ESR #### [place] [phone] Albumin/Globulin [Mass ratio] 0.8 {ratio} Low 1.1-2.5 [facility] Comment on above: Performed By: #### C BC, ADIFF, VANCT, ANEU, GFR, CMP, ESR #### [place] [phone] ALP [Catalytic activity/Vol] 102 U/L Normal 40-135 [facility] Comment on above: Performed By: #### C BC, ADIFF, VANCT, ANEU, GFR, CMP, ESR #### [place] [address] [place], [place] [address] ALT [Catalytic activity/Vol] 29 U/L Normal 14-59 [facility] Comment on above: Performed By: #### C BC, ADIFF, VANCT, ANEU, GFR, CMP, ESR #### [address] [address] AST [Catalytic activity/Vol] 19 U/L Normal 10-40 [facility] Comment on above: Performed By: #### C BC, ADIFF, VANCT, ANEU, GFR, CMP, ESR #### [address] [address] Bili Total 0.4 mg/dL Normal 0.2-1.0 [facility] Comment on above: Result Comment: Use of this assay is not recommended for patients undergoing treatment with eltrombopag due to the potential for falsely elevated results. Performed By: #### C BC, ADIFF, VANCT, ANEU, GFR, CMP, ESR #### [place] [phone] BUN/Creatinine Ratio 20 ratio Normal 7-[address] [facility] Comment on above: Performed By: #### C BC, ADIFF, VANCT, ANEU, GFR, CMP, ESR #### [address] [address] Calcium [Mass/Vol] 10.0 mg/dL Normal 8.4-10.2 [facility] Comment on above: Performed By: #### C BC, ADIFF, VANCT, ANEU, GFR, CMP, ESR #### [address] [address] Chloride [Moles/Vol] 102 mmol/L Normal 98-[address] [facility] Comment on above: Performed By: #### C BC, ADIFF, VANCT, ANEU, GFR, CMP, ESR #### [address] [address] CO2 [Moles/Vol] 25 mmol/L Normal 23-31 [facility] Comment on above: Performed By: #### C BC, ADIFF, VANCT, ANEU, GFR, CMP, ESR #### [address] [address] Creatinine [Mass/Vol] 1.84 mg/dL High 0.55-1.02 [facility] Comment on above: Result Comment: Test ing performed on Siemens Dimension EXL analyzer using a modified kinetic Gagandeep technique. Performed By: #### C BC, ADIFF, VANCT, ANEU, GFR, CMP, ESR #### [address] [address] Electrolyte Balance 13.0 mEq/L Normal 4.0-15.0 [facility] Comment on above: Performed By: #### C BC, ADIFF, VANCT, ANEU, GFR, CMP, ESR #### [address] [address] Globulin 3.8 G/dL Normal [facility] Comment on above: Performed By: #### C BC, ADIFF, VANCT, ANEU, GFR, CMP, ESR #### [address] [address] Glucose [Mass/Vol] 118 mg/dL High 80-115 [facility] Comment on above: Performed By: #### C BC, ADIFF, VANCT, ANEU, GFR, CMP, ESR #### [address] [address] Potassium [Moles/Vol] 4.0 mmol/L Normal 3.5-5.1 [facility] Comment on above: Performed By: #### C BC, ADIFF, VANCT, ANEU, GFR, CMP, ESR #### [address] [address] Sodium [Moles/Vol] 140 mmol/L Normal 136-145 [facility] Comment on above: Performed By: #### C BC, ADIFF, VANCT, ANEU, GFR, CMP, ESR #### [address] [address] Total Protein 6.7 G/dL Normal 6.4-8.2 [facility] Comment on above: Performed By: #### C BC, ADIFF, VANCT, ANEU, GFR, CMP, ESR #### [facility] [address] [place], [place] [address] Urea nitrogen [Mass/Vol] 36 mg/dL High 7-18 [facility] Comment on above: Performed By: #### C BC, ADIFF, VANCT, ANEU, GFR, CMP, ESR #### [facility] [address] [place], [place] [address] ESRon 03-12-2024 Erythrocyte Sed Rate 41 mm/hr High 0-[address] [facility] Comment on above: Performed By: #### C BC, ADIFF, VANCT, ANEU, GFR, CMP, ESR #### [place] [phone] [place], [place] [address] LABORATORYOrdered By: SYSTEM SYSTEM on 03-12-2024 Albumin [...] (03/12/24 12:02 PM) Normal AO Chemistry S [facility] 03-12-2024 Vancomycin Tr 18.3 mcg/mL Normal 5.0-20.0 [facility] Comment on above: Performed By: #### C BC, EB, VANCT, ANEU, GFR, CMP, ESR #### [place] [address] [place], [place] [address] LDose Vancomycin:(trough) Unknown Normal [facility] Comment on above: Performed By: #### C BC, ADIFF, VANCT, ANEU, GFR, CMP, ESR #### [place] [id number] [place], [place] [address] .GFRon 03-08-2024 GFR 39 ml/min/1.73sqm Normal [facility] Comment on above: Result Comment: GFR Population [...] ADIFF, VANCT, ANEU, GFR, CMP, ESR #### [address] [address] GFR Non- 32 ml/min/1.73sqm Normal [facility] Comment on above: Result Comment: GFR Population [...] ADIFF, VANCT, ANEU, GFR, CMP, ESR #### [address] [address] BMPon 03-08-2024 BUN/Creatinine Ratio 22 ratio Normal 7-[address] [facility] Comment on above: Performed By: #### C BC, ADIFF, VANCT, ANEU, GFR, CMP, ESR #### [address] [address] Calcium [Mass/Vol] 9.9 mg/dL Normal 8.4-10.2 [facility] Comment on above: Performed By: #### C BC, ADIFF, VANCT, ANEU, GFR, CMP, ESR #### [address] [address] Chloride [Moles/Vol] 105 mmol/L Normal 98-[address] [facility] Comment on above: Performed By: #### C BC, ADIFF, VANCT, ANEU, GFR, CMP, ESR #### [address] [address] CO2 [Moles/Vol] 23 mmol/L Normal 23-31 [facility] Comment on above: Performed By: #### C BC, ADIFF, VANCT, ANEU, GFR, CMP, ESR #### [address] [address] Creatinine [Mass/Vol] 1.59 mg/dL High 0.55-1.02 [facility] Comment on above: Result Comment: Test ing performed on Siemens Dimension EXL analyzer using a modified kinetic Gagandeep technique. Performed By: #### C BC, ADIFF, VANCT, ANEU, GFR, CMP, ESR #### [address] [address] Electrolyte Balance 13.0 mEq/L Normal 4.0-15.0 [facility] Comment on above: Performed By: #### C BC, ADIFF, VANCT, ANEU, GFR, CMP, ESR #### [address] [address] Glucose [Mass/Vol] 109 mg/dL Normal 80-115 [facility] Comment on above: Performed By: #### C BC, ADIFF, VANCT, ANEU, GFR, CMP, ESR #### [address] [address] Potassium [Moles/Vol] 4.0 mmol/L Normal 3.5-5.1 [facility] Comment on above: Performed By: #### C BC, ADIFF, VANCT, ANEU, GFR, CMP, ESR #### [address] [address] Sodium [Moles/Vol] 141 mmol/L Normal 136-145 [facility] Comment on above: Performed By: #### C BC, ADIFF, VANCT, ANEU, GFR, CMP, ESR #### [address] [address] Urea nitrogen [Mass/Vol] 35 mg/dL High 7-18 [facility] Comment on above: Performed By: #### C BC, ADIFF, VANCT, ANEU, GFR, CMP, ESR #### [facility] [address] [place], [place] [address] LABORATORYOrdered By: SYSTEM SYSTEM on 03-08-2024 Calcium [...] (03/08/24 10:10 AM) Normal AO Chemistry S [facility] 03-08-2024 LDose Vancomycin:(trough) Unknown Normal [facility] Comment on above: Performed By: #### C NATI, CHAR PARSON, ANEU, GFR, CMP, ESR #### [place] [id number] [place], [place] [address] Vancomycin Tr 20.8 mcg/mL High 5.0-20.0 [facility] Comment on above: Performed By: #### C EB DAMIAN VANCT, ANEU, GFR, CMP, ESR #### [place] [address] [place], [place] [address] .Auto Diffon 03-05-2024 Basophil, Absolute 0.0 10 3/mcL Normal 0.0-0.[address] [facility] Comment on above: Performed By: #### C EB DAMIAN, ANNT, ANEU, GFR, CMP, ESR #### [place] [address] [place], [place] [address] Basophils/100 WBC (Bld) 0.3 % Normal 0.0-2.5 [facility] Comment on above: Performed By: #### C BC, ADIFF, VANCT, ANEU, GFR, CMP, ESR #### [address] [address] Eosinophil, Absolute 0.3 10 3/mcL Normal 0.0-0.7 [facility] Comment on above: Performed By: #### C BC, ADIFF, VANCT, ANEU, GFR, CMP, ESR #### [address] [address] Eosinophils/100 WBC (Bld) 3.3 % Normal 0.0-7.0 [facility] Comment on above: Performed By: #### C BC, ADIFF, VANCT, ANEU, GFR, CMP, ESR #### [address] [address] Lymphocyte, Absolute 2.8 10 3/mcL Normal 0.9-4.3 [facility] Comment on above: Performed By: #### C BC, ADIFF, VANCT, ANEU, GFR, CMP, ESR #### [address] [address] Lymphocytes/100 WBC (Bld) 31.5 % Normal 20.0-40.0 [facility] Comment on above: Performed By: #### C BC, ADIFF, VANCT, ANEU, GFR, CMP, ESR #### [address] [address] Monocyte, Absolute 0.7 10 3/mcL Normal 0.1-1.[address] [facility] Comment on above: Performed By: #### C BC, ADIFF, VANCT, ANEU, GFR, CMP, ESR #### [address] [address] Monocytes/100 WBC (Bld) 7.8 % Normal 2.0-13.0 [facility] Comment on above: Performed By: #### C BC, ADIFF, VANCT, ANEU, GFR, CMP, ESR #### [address] [address] Neutrophils/100 WBC (Bld) 57.1 % Normal 50.0-75.0 [facility] Comment on above: Performed By: #### C BC, ADIFF, VANCT, ANEU, GFR, CMP, ESR #### [address] [address] .GFRon 03-05-2024 GFR 39 ml/min/1.73sqm Normal [facility] Comment on above: Result Comment: GFR Population [...] ADIFF, VANCT, ANEU, GFR, CMP, ESR #### [address] [address] GFR Non- 32 ml/min/1.73sqm Normal [facility] Comment on above: Result Comment: GFR Population [...] ADIFF, VANCT, ANEU, GFR, CMP, ESR #### [address] [address] .NEUABSon 03-05-2024 Neutrophil, Absolute 5.1 10 3/mcL Normal 2.3-8.1 [facility] Comment on above: Performed By: #### C BC, ADIFF, VANCT, ANEU, GFR, CMP, ESR #### [address] [address] CBCon 03-05-2024 Erythrocyte distribution width (RBC) [Ratio] 14.3 % Normal 11.5-15.5 [facility] Comment on above: Performed By: #### C BC, ADIFF, VANCT, ANEU, GFR, CMP, ESR #### [place] [address] Hematocrit (Bld) [Volume fraction] 35.5 % Normal 34.0-46.0 [facility] Comment on above: Performed By: #### C BC, ADIFF, VANCT, ANEU, GFR, CMP, ESR #### [place] [phone] Hgb 12.2 G/dL Normal 12.0-16.0 [facility] Comment on above: Performed By: #### C BC, ADIFF, VANCT, ANEU, GFR, CMP, ESR #### [address] [address] MCH (RBC) [Entitic mass] 31.3 pg Normal 27.0-33.0 [facility] Comment on above: Performed By: #### C BC, ADIFF, VANCT, ANEU, GFR, CMP, ESR #### [address] [address] MCHC 34.4 G/dL Normal 32.0-36.0 [facility] Comment on above: Performed By: #### C BC, ADIFF, VANCT, ANEU, GFR, CMP, ESR #### [place] [phone] MCV (RBC) [Entitic vol] 91.1 fL Normal 80.0-99.0 [facility] Comment on above: Performed By: #### C BC, ADIFF, VANCT, ANEU, GFR, CMP, ESR #### [address] [address] Platelet 137 10 3/mcL Low 150-450 [facility] Comment on above: Performed By: #### C BC, ADIFF, VANCT, ANEU, GFR, CMP, ESR #### [address] [address] Platelet mean volume (Bld) [Entitic vol] 9.3 fL Normal 6.6-10.5 [facility] Comment on above: Performed By: #### C BC, ADIFF, VANCT, ANEU, GFR, CMP, ESR #### [address] [address] RBC 3.89 10 6/mcL Low 4.10-5.30 [facility] Comment on above: Performed By: #### C BC, ADIFF, VANCT, ANEU, GFR, CMP, ESR #### [address] [address] WBC 8.8 10 3/mcL Normal 4.5-10.8 [facility] Comment on above: Performed By: #### C BC, ADIFF, VANCT, ANEU, GFR, CMP, ESR #### [address] [address] CMPon 03-05-2024 Albumin Level 2.9 G/dL Low 3.4-4.8 [facility] Comment on above: Performed By: #### C BC, ADIFF, VANCT, ANEU, GFR, CMP, ESR #### [address] [address] Albumin/Globulin [Mass ratio] 0.8 {ratio} Low 1.1-2.5 [facility] Comment on above: Performed By: #### C BC, ADIFF, VANCT, ANEU, GFR, CMP, ESR #### [address] [address] ALP [Catalytic activity/Vol] 91 U/L Normal 40-135 [facility] Comment on above: Performed By: #### C BC, ADIFF, VANCT, ANEU, GFR, CMP, ESR #### [place] [id number] [place], [place] [address] ALT [Catalytic activity/Vol] 35 U/L Normal 14-59 [facility] Comment on above: Performed By: #### C BC, ADIFF, VANCT, ANEU, GFR, CMP, ESR #### [place] [address] [place], [place] [address] AST [Catalytic activity/Vol] 29 U/L Normal 10-40 [facility] Comment on above: Performed By: #### C BC, ADIFF, VANCT, ANEU, GFR, CMP, ESR #### [address] [address] Bili Total 0.6 mg/dL Normal 0.2-1.0 [facility] Comment on above: Result Comment: Use of this assay is not recommended for patients undergoing treatment with eltrombopag due to the potential for falsely elevated results. Performed By: #### C BC, ADIFF, VANCT, ANEU, GFR, CMP, ESR #### [address] [address] BUN/Creatinine Ratio 25 ratio Normal 7-[address] [facility] Comment on above: Performed By: #### C BC, ADIFF, VANCT, ANEU, GFR, CMP, ESR #### [address] [address] Calcium [Mass/Vol] 10.1 mg/dL Normal 8.4-10.2 [facility] Comment on above: Performed By: #### C BC, ADIFF, VANCT, ANEU, GFR, CMP, ESR #### [address] [address] Chloride [Moles/Vol] 101 mmol/L Normal 98-[address] [facility] Comment on above: Performed By: #### C BC, ADIFF, VANCT, ANEU, GFR, CMP, ESR #### [address] [address] CO2 [Moles/Vol] 27 mmol/L Normal 23-31 [facility] Comment on above: Performed By: #### C BC, ADIFF, VANCT, ANEU, GFR, CMP, ESR #### [address] [address] Creatinine [Mass/Vol] 1.60 mg/dL High 0.55-1.02 [facility] Comment on above: Result Comment: Test ing performed on Siemens Dimension EXL analyzer using a modified kinetic Gagandeep technique. Performed By: #### C BC, ADIFF, VANCT, ANEU, GFR, CMP, ESR #### [address] [address] Electrolyte Balance 9.0 mEq/L Normal 4.0-15.0 [facility] Comment on above: Performed By: #### C BC, ADIFF, VANCT, ANEU, GFR, CMP, ESR #### [address] [address] Globulin 3.6 G/dL Normal [facility] Comment on above: Performed By: #### C BC, ADIFF, VANCT, ANEU, GFR, CMP, ESR #### [address] [address] Glucose [Mass/Vol] 131 mg/dL High 80-115 [facility] Comment on above: Performed By: #### C BC, ADIFF, VANCT, ANEU, GFR, CMP, ESR #### [address] [address] Potassium [Moles/Vol] 4.1 mmol/L Normal 3.5-5.1 [facility] Comment on above: Performed By: #### C BC, ADIFF, VANCT, ANEU, GFR, CMP, ESR #### [address] [address] Sodium [Moles/Vol] 137 mmol/L Normal 136-145 [facility] Comment on above: Performed By: #### C BC, ADIFF, VANCT, ANEU, GFR, CMP, ESR #### [address] [address] Total Protein 6.5 G/dL Normal 6.4-8.2 [facility] Comment on above: Performed By: #### C BC, ADIFF, VANCT, ANEU, GFR, CMP, ESR #### [place] [address] [place], [place] [address] Urea nitrogen [Mass/Vol] 40 mg/dL High 7-18 [facility] Comment on above: Performed By: #### C BC, ADIFF, VANCT, ANEU, GFR, CMP, ESR #### [place] [address] [place], [place] [address] ESRon 03-05-2024 Erythrocyte Sed Rate 50 mm/hr High 0-[address] [facility] Comment on above: Performed By: #### C BC, ADIFF, VANCT, ANEU, GFR, CMP, ESR #### [place] [address] [place], [place] [address] LABORATORYOrdered By: SYSTEM SYSTEM on 03-05-2024 Albumin [...] (03/05/24 10:20 AM) Normal AO Chemistry S [facility] 03-05-2024 Vancomycin Tr 23.4 mcg/mL High 5.0-20.0 [facility] Comment on above: Performed By: #### C BC, ADIFF, VANCT, ANEU, GFR, CMP, ESR #### [address] [address] LDose Vancomycin:(trough) Unknown Normal [facility] Comment on above: Performed By: #### C BC, ADIFF, VANCT, ANEU, GFR, CMP, ESR #### [address] [address] .Auto Diffon 02-28-2024 Basophil, Absolute 0.0 10 3/mcL Normal 0.0-0.[address] [facility] Comment on above: Performed By: #### C BC, ADIFF, VANCT, ANEU, GFR, CMP, ESR #### [address] [address] Basophils/100 WBC (Bld) 0.3 % Normal 0.0-2.5 [facility] Comment on above: Performed By: #### C BC, ADIFF, VANCT, ANEU, GFR, CMP, ESR #### [address] [address] Eosinophil, Absolute 0.3 10 3/mcL Normal 0.0-0.7 [facility] Comment on above: Performed By: #### C BC, ADIFF, VANCT, ANEU, GFR, CMP, ESR #### [address] [address] Eosinophils/100 WBC (Bld) 4.3 % Normal 0.0-7.0 [facility] Comment on above: Performed By: #### C BC, ADIFF, VANCT, ANEU, GFR, CMP, ESR #### [address] [address] Lymphocyte, Absolute 2.7 10 3/mcL Normal 0.9-4.3 [facility] Comment on above: Performed By: #### C BC, ADIFF, VANCT, ANEU, GFR, CMP, ESR #### [address] [address] Lymphocytes/100 WBC (Bld) 34.8 % Normal 20.0-40.0 [facility] Comment on above: Performed By: #### C BC, ADIFF, VANCT, ANEU, GFR, CMP, ESR #### [address] [address] Monocyte, Absolute 0.7 10 3/mcL Normal 0.1-1.[address] [facility] Comment on above: Performed By: #### C BC, ADIFF, VANCT, ANEU, GFR, CMP, ESR #### [address] [address] Monocytes/100 WBC (Bld) 9.6 % Normal 2.0-13.0 [facility] Comment on above: Performed By: #### C BC, ADIFF, VANCT, ANEU, GFR, CMP, ESR #### [address] [address] Neutrophils/100 WBC (Bld) 51.0 % Normal 50.0-75.0 [facility] Comment on above: Performed By: #### C BC, EB, ANNT, ANEU, GFR, CMP, ESR #### [address] [address] .GFRon 02-28-2024 GFR 73 ml/min/1.73sqm [facility] Comment on above: Result Comment: GFR Population [...] EB, ANNT, ANEU, GFR, CMP, ESR #### [address] [address] GFR Non- 60 ml/min/1.73sqm [facility] Comment on above: Result Comment: GFR Population [...] EB, ANNT, ANEU, GFR, CMP, ESR #### [place] [id number] [place], [place] [address] .NEUABSon 02-28-2024 Neutrophil, Absolute 3.9 10 3/mcL Normal 2.3-8.1 [facility] Comment on above: Performed By: #### C BC, ADIFF, VANCT, ANEU, GFR, CMP, ESR #### [address] [address] CBCon 02-28-2024 Erythrocyte distribution width (RBC) [Ratio] 14.7 % Normal 11.5-15.5 [facility] Comment on above: Performed By: #### C BC, ADIFF, VANCT, ANEU, GFR, CMP, ESR #### [place] [id number] Hematocrit (Bld) [Volume fraction] 37.2 % Normal 34.0-46.0 [facility] Comment on above: Performed By: #### C BC, ADIFF, VANCT, ANEU, GFR, CMP, ESR #### [place] [id number] Hgb 12.7 G/dL Normal 12.0-16.0 [facility] Comment on above: Performed By: #### C BC, ADIFF, VANCT, ANEU, GFR, CMP, ESR #### [place] [phone] MCH (RBC) [Entitic mass] 31.4 pg Normal 27.0-33.0 [facility] Comment on above: Performed By: #### C BC, ADIFF, VANCT, ANEU, GFR, CMP, ESR #### [place] [id number] MCHC 34.1 G/dL Normal 32.0-36.0 [facility] Comment on above: Performed By: #### C BC, ADIFF, VANCT, ANEU, GFR, CMP, ESR #### [place] [phone] MCV (RBC) [Entitic vol] 92.3 fL Normal 80.0-99.0 [facility] Comment on above: Performed By: #### C BC, ADIFF, VANCT, ANEU, GFR, CMP, ESR #### [address] [address] Platelet 122 10 3/mcL Low 150-450 [facility] Comment on above: Performed By: #### C BC, ADIFF, VANCT, ANEU, GFR, CMP, ESR #### [address] [address] Platelet mean volume (Bld) [Entitic vol] 8.6 fL Normal 6.6-10.5 [facility] Comment on above: Performed By: #### C BC, ADIFF, VANCT, ANEU, GFR, CMP, ESR #### [address] [address] RBC 4.03 10 6/mcL Low 4.10-5.30 [facility] Comment on above: Performed By: #### C BC, ADIFF, VANCT, ANEU, GFR, CMP, ESR #### [place] [id number] WBC 7.7 10 3/mcL Normal 4.5-10.8 [facility] Comment on above: Performed By: #### C BC, ADIFF, VANCT, ANEU, GFR, CMP, ESR #### [address] [address] CMPon 02-28-2024 Albumin Level 3.1 G/dL Low 3.4-4.8 [facility] Comment on above: Performed By: #### C BC, ADIFF, VANCT, ANEU, GFR, CMP, ESR #### [address] [address] Albumin/Globulin [Mass ratio] 0.9 {ratio} Low 1.1-2.5 [facility] Comment on above: Performed By: #### C BC, ADIFF, VANCT, ANEU, GFR, CMP, ESR #### [address] [address] ALP [Catalytic activity/Vol] 83 U/L Normal 40-135 [facility] Comment on above: Performed By: #### C BC, ADIFF, VANCT, ANEU, GFR, CMP, ESR #### [address] [address] ALT [Catalytic activity/Vol] 32 U/L Normal 14-59 [facility] Comment on above: Performed By: #### C BC, ADIFF, VANCT, ANEU, GFR, CMP, ESR #### [address] [address] AST [Catalytic activity/Vol] 33 U/L Normal 10-40 [facility] Comment on above: Performed By: #### C BC, ADIFF, VANCT, ANEU, GFR, CMP, ESR #### [address] [address] Bili Total 0.6 mg/dL Normal 0.2-1.0 [facility] Comment on above: Result Comment: Use of this assay is not recommended for patients undergoing treatment with eltrombopag due to the potential for falsely elevated results. Performed By: #### C BC, ADIFF, VANCT, ANEU, GFR, CMP, ESR #### [address] [address] BUN/Creatinine Ratio 24 ratio Normal 7-[address] [facility] Comment on above: Performed By: #### C BC, ADIFF, VANCT, ANEU, GFR, CMP, ESR #### [address] [address] Calcium [Mass/Vol] 10.2 mg/dL Normal 8.4-10.2 [facility] Comment on above: Performed By: #### C BC, ADIFF, VANCT, ANEU, GFR, CMP, ESR #### [address] [address] Chloride [Moles/Vol] 103 mmol/L Normal 98-[address] [facility] Comment on above: Performed By: #### C BC, ADIFF, VANCT, ANEU, GFR, CMP, ESR #### [address] [address] CO2 [Moles/Vol] 30 mmol/L Normal 23-31 [facility] Comment on above: Performed By: #### C BC, ADIFF, VANCT, ANEU, GFR, CMP, ESR #### [address] [address] Creatinine [Mass/Vol] 0.93 mg/dL Normal 0.55-1.02 [facility] Comment on above: Result Comment: Test ing performed on Siemens Dimension EXL analyzer using a modified kinetic Gagandeep technique. Performed By: #### C BC, ADIFF, VANCT, ANEU, GFR, CMP, ESR #### [address] [address] Electrolyte Balance 5.0 mEq/L Normal 4.0-15.0 [facility] Comment on above: Performed By: #### C BC, ADIFF, VANCT, ANEU, GFR, CMP, ESR #### [address] [address] Globulin 3.5 G/dL Normal [facility] Comment on above: Performed By: #### C BC, ADIFF, VANCT, ANEU, GFR, CMP, ESR #### [address] [address] Glucose [Mass/Vol] 121 mg/dL High 80-115 [facility] Comment on above: Performed By: #### C BC, ADIFF, VANCT, ANEU, GFR, CMP, ESR #### [address] [address] Potassium [Moles/Vol] 4.1 mmol/L Normal 3.5-5.1 [facility] Comment on above: Performed By: #### C BC, ADIFF, VANCT, ANEU, GFR, CMP, ESR #### [address] [address] Sodium [Moles/Vol] 138 mmol/L Normal 136-145 [facility] Comment on above: Performed By: #### C BC, ADIFF, VANCT, ANEU, GFR, CMP, ESR #### [address] [address] Total Protein 6.6 G/dL Normal 6.4-8.2 [facility] Comment on above: Performed By: #### C BC, ADIFF, VANCT, ANEU, GFR, CMP, ESR #### [place] [phone] [place], [place] [address] Urea nitrogen [Mass/Vol] 22 mg/dL High 7-18 [facility] Comment on above: Performed By: #### C BC, ADIFF, VANCT, ANEU, GFR, CMP, ESR #### [place] [address] [place], [place] [address] ESRon 02-28-2024 Erythrocyte Sed Rate 41 mm/hr High 0-[address] [facility] Comment on above: Performed By: #### C BC, ADIFF, VANCT, ANEU, GFR, CMP, ESR #### [place] [phone] [place], [place] [address] LABORATORYOrdered By: SYSTEM SYSTEM on 02-28-2024 Albumin [...] (02/28/24 8:58 AM) Normal AO Chemistry S [facility] 02-28-2024 Vancomycin Tr 12.7 mcg/mL Normal 5.0-20.0 [facility] Comment on above: Performed By: #### C BC, ADIFF, VANCT, ANEU, GFR, CMP, ESR #### [address] [address] LDose Vancomycin:(trough) Unknown Normal [facility] Comment on above: Performed By: #### C BC, ADIFF, VANCT, ANEU, GFR, CMP, ESR #### [address] [address] .Auto Diffon 02-20-2024 Basophil, Absolute 0.0 10 3/mcL Normal 0.0-0.[address] [facility] Comment on above: Performed By: #### U A #### [address] [address] Basophils/100 WBC (Bld) 0.3 % Normal 0.0-2.5 [facility] Comment on above: Performed By: #### U A #### [address] [address] Eosinophil, Absolute 0.2 10 3/mcL Normal 0.0-0.7 [facility] Comment on above: Performed By: #### U A #### [address] [address] Eosinophils/100 WBC (Bld) 3.4 % Normal 0.0-7.0 [facility] Comment on above: Performed By: #### U A #### [address] [address] Lymphocyte, Absolute 2.5 10 3/mcL Normal 0.9-4.3 [facility] Comment on above: Performed By: #### U A #### [address] [address] Lymphocytes/100 WBC (Bld) 36.7 % Normal 20.0-40.0 [facility] Comment on above: Performed By: #### U A #### [address] [address] Monocyte, Absolute 0.4 10 3/mcL Normal 0.1-1.[address] [facility] Comment on above: Performed By: #### U A #### [address] [address] Monocytes/100 WBC (Bld) 6.0 % Normal 2.0-13.0 [facility] Comment on above: Performed By: #### U A #### [address] [address] Neutrophils/100 WBC (Bld) 53.6 % Normal 50.0-75.0 [facility] Comment on above: Performed By: #### U A #### [address] [address] .GFRon 02-20-2024 GFR 77 ml/min/1.73sqm Normal [facility] Comment on above: Result Comment: GFR Population [...] meters Performed By: #### U A #### [address] [address] GFR Non- 64 ml/min/1.73sqm Normal [facility] Comment on above: Result Comment: GFR Population [...] meters Performed By: #### U A #### [address] [address] .NEUABSon 02-20-2024 Neutrophil, Absolute 3.6 10 3/mcL Normal 2.3-8.1 [facility] Comment on above: Performed By: #### U A #### [address] [address] CBCon 02-20-2024 Erythrocyte distribution width (RBC) [Ratio] 14.5 % Normal 11.5-15.5 [facility] Comment on above: Performed By: #### C BC, EB, ANNT, ANEU, GFR, CMP, ESR #### [address] [address] Hematocrit (Bld) [Volume fraction] 36.4 % Normal 34.0-46.0 [facility] Comment on above: Performed By: #### C BC, ADIFF, VANCT, ANEU, GFR, CMP, ESR #### [place] [address] Hgb 12.6 G/dL Normal 12.0-16.0 [facility] Comment on above: Performed By: #### C BC, ADIFF, VANCT, ANEU, GFR, CMP, ESR #### [place] [address] MCH (RBC) [Entitic mass] 31.5 pg Normal 27.0-33.0 [facility] Comment on above: Performed By: #### C BC, ADIFF, VANCT, ANEU, GFR, CMP, ESR #### [place] [address] MCHC 34.5 G/dL Normal 32.0-36.0 [facility] Comment on above: Performed By: #### C BC, ADIFF, VANCT, ANEU, GFR, CMP, ESR #### [place] [address] MCV (RBC) [Entitic vol] 91.3 fL Normal 80.0-99.0 [facility] Comment on above: Performed By: #### C BC, ADIFF, VANCT, ANEU, GFR, CMP, ESR #### [place] [address] Platelet 135 10 3/mcL Low 150-450 [facility] Comment on above: Performed By: #### C BC, ADIFF, VANCT, ANEU, GFR, CMP, ESR #### [address] [address] Platelet mean volume (Bld) [Entitic vol] 8.8 fL Normal 6.6-10.5 [facility] Comment on above: Performed By: #### C BC, ADIFF, VANCT, ANEU, GFR, CMP, ESR #### [place] [address] RBC 3.98 10 6/mcL Low 4.10-5.30 [facility] Comment on above: Performed By: #### C BC, ADIFF, VANCT, ANEU, GFR, CMP, ESR #### [address] [address] WBC 6.7 10 3/mcL Normal 4.5-10.8 [facility] Comment on above: Performed By: #### C BC, ADIFF, VANCT, ANEU, GFR, CMP, ESR #### [address] [address] CMPon 02-20-2024 Albumin Level 3.0 G/dL Low 3.4-4.8 [facility] Comment on above: Performed By: #### U A #### [place] [phone] Albumin/Globulin [Mass ratio] 0.8 {ratio} Low 1.1-2.5 [facility] Comment on above: Performed By: #### U A #### [place] [phone] ALP [Catalytic activity/Vol] 84 U/L Normal 40-135 [facility] Comment on above: Performed By: #### U A #### [place] [phone] ALT [Catalytic activity/Vol] 30 U/L Normal 14-59 [facility] Comment on above: Performed By: #### U A #### [place] [phone] AST [Catalytic activity/Vol] 29 U/L Normal 10-40 [facility] Comment on above: Performed By: #### U A #### [place] [phone] Bili Total 0.8 mg/dL Normal 0.2-1.0 [facility] Comment on above: Result Comment: Use of this assay is not recommended for patients undergoing treatment with eltrombopag due to the potential for falsely elevated results. Performed By: #### U A #### [place] [phone] BUN/Creatinine Ratio 15 ratio Normal 7-[address] [facility] Comment on above: Performed By: #### U A #### [address] [address] Calcium [Mass/Vol] 10.0 mg/dL Normal 8.4-10.2 [facility] Comment on above: Performed By: #### U A #### [address] [address] Chloride [Moles/Vol] 103 mmol/L Normal 98-[address] [facility] Comment on above: Performed By: #### U A #### [place] [phone] CO2 [Moles/Vol] 28 mmol/L Normal 23-31 [facility] Comment on above: Performed By: #### U A #### [address] [address] Creatinine [Mass/Vol] 0.88 mg/dL Normal 0.55-1.02 [facility] Comment on above: Result Comment: Test ing performed on Siemens Dimension EXL analyzer using a modified kinetic Gagandeep technique. Performed By: #### U A #### [address] [address] Electrolyte Balance 8.0 mEq/L Normal 4.0-15.0 [facility] Comment on above: Performed By: #### U A #### [address] [address] Globulin 3.6 G/dL Normal [facility] Comment on above: Performed By: #### U A #### [address] [address] Glucose [Mass/Vol] 107 mg/dL Normal 80-115 [facility] Comment on above: Performed By: #### U A #### [address] [address] Potassium [Moles/Vol] 3.7 mmol/L Normal 3.5-5.1 [facility] Comment on above: Performed By: #### U A #### [place] [address] [place], [place] [address] Sodium [Moles/Vol] 139 mmol/L Normal 136-145 [facility] Comment on above: Performed By: #### U A #### [place] [phone] [place], [place] [address] Total Protein 6.6 G/dL Normal 6.4-8.2 [facility] Comment on above: Performed By: #### U A #### [address] [address] Urea nitrogen [Mass/Vol] 13 mg/dL Normal 7-18 [facility] Comment on above: Performed By: #### U A #### [address] [address] ESRon 02-20-2024 Erythrocyte Sed Rate 36 mm/hr High 0-[address] [facility] Comment on above: Performed By: #### U A #### [address] [address] LABORATORYOrdered By: SYSTEM SYSTEM on 02-20-2024 Albumin [...] (02/20/24 10:53 AM) Normal AO Chemistry S [facility] 02-20-2024 Vancomycin Tr 10.7 mcg/mL Normal 5.0-20.0 [facility] Comment on above: Performed By: #### U A #### [address] [address] LDose Vancomycin:(trough) Unknown Normal [facility] Comment on above: Performed By: #### U A #### [place] [phone] [place], [place] [address] Pulmonary Visit Reporton Pulmonary Visit Report [facility] Medicine of [address] [place], [place] [id number] OFFICE VISIT Date of Service: 02/15/24 MR#: [id number] Acct: [id number] Name: GLORIA RODRIGUEZ Óscar Rep #: [id number] : 1955 Provider: ADAM Ruby Age/Sex: 68/F [place] [facility] [place] Status: Signed Assessment and Plan Assessment and [...] 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 She does have shortness of breath [...] recall. She states that very recently a new accounts banking representative from the [employer] checked her machine out and made her [...] 02/15/24 History (more content not included)... Normal [facility] .Auto Diffon 02-13-2024 Basophil, Absolute 0.0 10 3/mcL Normal 0.0-0.[address] [facility] Comment on above: Performed By: #### C BC, ADIFF, VANCT, ANEU, GFR, CMP, ESR #### [address] [address] Basophils/100 WBC (Bld) 0.3 % Normal 0.0-2.5 [facility] Comment on above: Performed By: #### C BC, ADIFF, VANCT, ANEU, GFR, CMP, ESR #### [address] [address] Eosinophil, Absolute 0.2 10 3/mcL Normal 0.0-0.7 [facility] Comment on above: Performed By: #### C BC, ADIFF, VANCT, ANEU, GFR, CMP, ESR #### [address] [address] Eosinophils/100 WBC (Bld) 2.0 % Normal 0.0-7.0 [facility] Comment on above: Performed By: #### C BC, ADIFF, VANCT, ANEU, GFR, CMP, ESR #### [address] [address] Lymphocyte, Absolute 2.7 10 3/mcL Normal 0.9-4.3 [facility] Comment on above: Performed By: #### C BC, ADIFF, VANCT, ANEU, GFR, CMP, ESR #### [address] [address] Lymphocytes/100 WBC (Bld) 35.5 % Normal 20.0-40.0 [facility] Comment on above: Performed By: #### C BC, ADIFF, VANCT, ANEU, GFR, CMP, ESR #### [place] [address] [place], [place] [address] Monocyte, Absolute 0.6 10 3/mcL Normal 0.1-1.[address] [facility] Comment on above: Performed By: #### C BC, ADIFF, VANCT, ANEU, GFR, CMP, ESR #### [place] [address] [place], [place] [address] Monocytes/100 WBC (Bld) 7.9 % Normal 2.0-13.0 [facility] Comment on above: Performed By: #### C BC, ADIFF, VANCT, ANEU, GFR, CMP, ESR #### [address] [address] Neutrophils/100 WBC (Bld) 54.3 % Normal 50.0-75.0 [facility] Comment on above: Performed By: #### C BC, ADIFF, VANCT, ANEU, GFR, CMP, ESR #### [address] [address] .GFRon 02-13-2024 GFR 75 ml/min/1.73sqm Normal [facility] Comment on above: Result Comment: GFR Population [...] ADIFF, VANCT, ANEU, GFR, CMP, ESR #### [place] [address] [place], [place] [address] GFR Non- 61 ml/min/1.73sqm Normal [facility] Comment on above: Result Comment: GFR Population [...] ADIFF, VANCT, ANEU, GFR, CMP, ESR #### [place] [phone] .NEUABSon 02-13-2024 Neutrophil, Absolute 4.1 10 3/mcL Normal 2.3-8.1 [facility] Comment on above: Performed By: #### C BC, ADIFF, VANCT, ANEU, GFR, CMP, ESR #### [place] [phone] CBCon 02-13-2024 Erythrocyte distribution width (RBC) [Ratio] 14.4 % Normal 11.5-15.5 [facility] Comment on above: Performed By: #### C BC, ADIFF, VANCT, ANEU, GFR, CMP, ESR #### [place] [phone] Hematocrit (Bld) [Volume fraction] 38.6 % Normal 34.0-46.0 [facility] Comment on above: Performed By: #### C BC, ADIFF, VANCT, ANEU, GFR, CMP, ESR #### [place] [phone] Hgb 13.1 G/dL Normal 12.0-16.0 [facility] Comment on above: Performed By: #### C BC, ADIFF, VANCT, ANEU, GFR, CMP, ESR #### [place] [phone] MCH (RBC) [Entitic mass] 31.5 pg Normal 27.0-33.0 [facility] Comment on above: Performed By: #### C BC, ADIFF, VANCT, ANEU, GFR, CMP, ESR #### [address] [address] MCHC 33.8 G/dL Normal 32.0-36.0 [facility] Comment on above: Performed By: #### C BC, ADIFF, VANCT, ANEU, GFR, CMP, ESR #### [place] [address] MCV (RBC) [Entitic vol] 93.0 fL Normal 80.0-99.0 [facility] Comment on above: Performed By: #### C BC, ADIFF, VANCT, ANEU, GFR, CMP, ESR #### [place] [phone] Platelet 114 10 3/mcL Low 150-450 [facility] Comment on above: Performed By: #### C BC, ADIFF, VANCT, ANEU, GFR, CMP, ESR #### [place] [address] Platelet mean volume (Bld) [Entitic vol] 8.7 fL Normal 6.6-10.5 [facility] Comment on above: Performed By: #### C BC, ADIFF, VANCT, ANEU, GFR, CMP, ESR #### [place] [phone] RBC 4.15 10 6/mcL Normal 4.10-5.30 [facility] Comment on above: Performed By: #### C BC, ADIFF, VANCT, ANEU, GFR, CMP, ESR #### [place] [phone] WBC 7.5 10 3/mcL Normal 4.5-10.8 [facility] Comment on above: Performed By: #### C BC, ADIFF, VANCT, ANEU, GFR, CMP, ESR #### [address] [place] [address] CMPon 02-13-2024 Albumin Level 3.0 G/dL Low 3.4-4.8 [facility] Comment on above: Performed By: #### C BC, ADIFF, VANCT, ANEU, GFR, CMP, ESR #### [place] [address] Albumin/Globulin [Mass ratio] 0.9 {ratio} Low 1.1-2.5 [facility] Comment on above: Performed By: #### C BC, ADIFF, VANCT, ANEU, GFR, CMP, ESR #### [place] [address] ALP [Catalytic activity/Vol] 80 U/L Normal 40-135 [facility] Comment on above: Performed By: #### C BC, ADIFF, VANCT, ANEU, GFR, CMP, ESR #### [place] [address] ALT [Catalytic activity/Vol] 34 U/L Normal 14-59 [facility] Comment on above: Performed By: #### C BC, ADIFF, VANCT, ANEU, GFR, CMP, ESR #### [place] [address] AST [Catalytic activity/Vol] 30 U/L Normal 10-40 [facility] Comment on above: Performed By: #### C BC, ADIFF, VANCT, ANEU, GFR, CMP, ESR #### [place] [phone] Bili Total 0.6 mg/dL Normal 0.2-1.0 [facility] Comment on above: Result Comment: Use of this assay is not recommended for patients undergoing treatment with eltrombopag due to the potential for falsely elevated results. Performed By: #### C BC, ADIFF, VANCT, ANEU, GFR, CMP, ESR #### [place] [address] BUN/Creatinine Ratio 18 ratio Normal 7-[address] [facility] Comment on above: Performed By: #### C BC, ADIFF, VANCT, ANEU, GFR, CMP, ESR #### [place] [address] Calcium [Mass/Vol] 9.8 mg/dL Normal 8.4-10.2 [facility] Comment on above: Performed By: #### C BC, ADIFF, VANCT, ANEU, GFR, CMP, ESR #### [place] [address] Chloride [Moles/Vol] 102 mmol/L Normal 98-[address] [facility] Comment on above: Performed By: #### C BC, ADIFF, VANCT, ANEU, GFR, CMP, ESR #### [place] [address] CO2 [Moles/Vol] 28 mmol/L Normal 23-31 [facility] Comment on above: Performed By: #### C BC, ADIFF, VANCT, ANEU, GFR, CMP, ESR #### [place] [address] Creatinine [Mass/Vol] 0.91 mg/dL Normal 0.55-1.02 [facility] Comment on above: Result Comment: Test ing performed on Siemens Dimension EXL analyzer using a modified kinetic Gagandeep technique. Performed By: #### C BC, ADIFF, VANCT, ANEU, GFR, CMP, ESR #### [place] [address] Electrolyte Balance 9.0 mEq/L Normal 4.0-15.0 [facility] Comment on above: Performed By: #### C BC, ADIFF, VANCT, ANEU, GFR, CMP, ESR #### [place] [address] Globulin 3.3 G/dL Normal [facility] Comment on above: Performed By: #### C BC, ADIFF, VANCT, ANEU, GFR, CMP, ESR #### [place] [address] Glucose [Mass/Vol] 125 mg/dL High 80-115 [facility] Comment on above: Performed By: #### C BC, ADIFF, VANCT, ANEU, GFR, CMP, ESR #### [place] [address] Potassium [Moles/Vol] 4.1 mmol/L Normal 3.5-5.1 [facility] Comment on above: Performed By: #### C BC, ADIFF, VANCT, ANEU, GFR, CMP, ESR #### [place] [address] Sodium [Moles/Vol] 139 mmol/L Normal 136-145 [facility] Comment on above: Performed By: #### C BC, ADIFF, VANCT, ANEU, GFR, CMP, ESR #### [place] [address] Total Protein 6.3 G/dL Low 6.4-8.2 [facility] Comment on above: Performed By: #### C BC, ADIFF, VANCT, ANEU, GFR, CMP, ESR #### [place] [address] Urea nitrogen [Mass/Vol] 16 mg/dL Normal 7-18 [facility] Comment on above: Performed By: #### C BC, ADIFF, VANCT, ANEU, GFR, CMP, ESR #### [place] [address] CRPon 02-13-2024 C-Reactive Protein 0.2 mg/dL Normal 0.0-0.3 [facility] Comment on above: Performed By: #### C BC, ADIFF, VANCT, ANEU, GFR, CMP, ESR #### [place] [address] ESRon 02-13-2024 Erythrocyte Sed Rate 33 mm/hr High 0-[address] [facility] Comment on above: Performed By: #### C BC, ADIFF, VANCT, ANEU, GFR, CMP, ESR #### [place] [address] LABORATORYOrdered By: SYSTEM SYSTEM on 02-13-2024 Albumin [...] 02-13-2024 Vancomycin Lvl (random) 13 mcg/mL Normal [facility] Comment on above: Result Comment: No n ormal reference range reported for random vancomycin testing. Performed By: #### C BC, ADIFF, VANCT, ANEU, GFR, CMP, ESR #### [place] [id number] [place], [place] [address] LDose Vancomycin: (random) Unknown Normal [facility] Comment on above: Performed By: #### C BC, ADIFF, VANCT, ANEU, GFR, CMP, ESR #### [place] [id number] [place], [place] [address] .Auto Diffon 02-10-2024 Basophil, Absolute 0.0 10 3/mcL Normal 0.0-0.3 [facility] Comment on above: Performed By: #### A DIFF, ANEU, CMP, GFR, CBC, MG ####[address] [address] Basophils/100 WBC (Bld) 0.3 % Normal 0.0-2.5 [facility] Comment on above: Performed By: #### A DIFF, ANEU, CMP, GFR, CBC, MG ####[address] [address] Eosinophil, Absolute 0.1 10 3/mcL Normal 0.0-0.7 [facility] Comment on above: Performed By: #### A DIFF, ANEU, CMP, GFR, CBC, MG ####[address] [address] Eosinophils/100 WBC (Bld) 2.2 % Normal 0.0-6.0 [facility] Comment on above: Performed By: #### A DIFF, ANEU, CMP, GFR, CBC, MG ####[address] [address] Lymphocyte, Absolute 2.5 10 3/mcL Normal 0.9-4.3 [facility] Comment on above: Performed By: #### A DIFF, ANEU, CMP, GFR, CBC, MG ####[address] [address] Lymphocytes/100 WBC (Bld) 39.6 % Normal 20.0-40.0 [facility] Comment on above: Performed By: #### A DIFF, ANEU, CMP, GFR, CBC, MG ####[address] [address] Monocyte, Absolute 0.6 10 3/mcL Normal 0.1-1.4 [facility] Comment on above: Performed By: #### A DIFF, ANEU, CMP, GFR, CBC, MG ####[address] [address] Monocytes/100 WBC (Bld) 9.0 % Normal 2.0-13.0 [facility] Comment on above: Performed By: #### A DIFF, ANEU, CMP, GFR, CBC, MG ####[address] [address] Neutrophils/100 WBC (Bld) 48.9 % Low 50.0-75.0 [facility] Comment on above: Performed By: #### A DIFF, ANEU, CMP, GFR, CBC, MG ####[address] [address] .GFRon 02-10-2024 GFR Non- >60 Normal [facility] Comment on above: Result Comment: GFR [...] A DIFF, ANEU, CMP, GFR, CBC, MG ####[address] [address] GFR >60 Normal [facility] [facility] Comment on above: Result Comment: [...] A DIFF, ANEU, CMP, GFR, CBC, MG ####[address] [address] .NEUABSon 02-10-2024 Neutrophil, Absolute 3.0 10 3/mcL Normal 2.3-8.1 [facility] MAIN Comment on above: Performed By: #### A DIFF, ANEU, CMP, GFR, CBC, MG ####[place] [address] CBCon 02-10-2024 Erythrocyte distribution width (RBC) [Ratio] 14.1 % Normal 11.5-15.5 [facility] MAIN Comment on above: Performed By: #### A DIFF, ANEU, CMP, GFR, CBC, MG ####[place] [address] Hematocrit (Bld) [Volume fraction] 38.7 % Normal 34.0-46.0 [facility] MAIN Comment on above: Performed By: #### A DIFF, ANEU, CMP, GFR, CBC, MG ####[place] [address] Hgb 12.9 G/dL Normal 12.0-16.0 [facility] MAIN Comment on above: Performed By: #### A DIFF, ANEU, CMP, GFR, CBC, MG ####[place] [address] MCH (RBC) [Entitic mass] 30.9 pg Normal 27.0-33.0 [facility] MAIN Comment on above: Performed By: #### A DIFF, ANEU, CMP, GFR, CBC, MG ####[place] [address] MCHC 33.5 G/dL Normal 32.0-36.0 [facility] MAIN Comment on above: Performed By: #### A DIFF, ANEU, CMP, GFR, CBC, MG ####[place] [address] MCV (RBC) [Entitic vol] 92.2 fL Normal 80.0-99.0 [facility] MAIN Comment on above: Performed By: #### A DIFF, ANEU, CMP, GFR, CBC, MG ####[place] [address] Platelet 101 10 3/mcL Low 150-450 [facility] MAIN Comment on above: Performed By: #### A DIFF, ANEU, CMP, GFR, CBC, MG ####[place] [address] Platelet mean volume (Bld) [Entitic vol] 8.6 fL Normal 6.6-10.5 [facility] MAIN Comment on above: Performed By: #### A DIFF, ANEU, CMP, GFR, CBC, MG ####[place] [address] RBC 4.19 10 6/mcL Normal 4.10-5.30 [facility] MAIN Comment on above: Performed By: #### A DIFF, ANEU, CMP, GFR, CBC, MG ####[place] [address] WBC 6.2 10 3/mcL Normal 4.5-10.8 [facility] MAIN Comment on above: Performed By: #### A DIFF, ANEU, CMP, GFR, CBC, MG ####[place] [address] CMPon 02-10-2024 Albumin Level 2.8 G/dL Low 3.2-4.8 [facility] MAIN Comment on above: Performed By: #### A DIFF, ANEU, CMP, GFR, CBC, MG ####[address] [address] Albumin/Globulin [Mass ratio] 0.8 {ratio} Low 0.9-1.6 [facility] MAIN Comment on above: Performed By: #### A DIFF, ANEU, CMP, GFR, CBC, MG ####[address] [address] ALP [Catalytic activity/Vol] 72 U/L Normal 38-126 [facility] MAIN Comment on above: Performed By: #### A DIFF, ANEU, CMP, GFR, CBC, MG ####[address] [address] ALT [Catalytic activity/Vol] 30 U/L Normal 10-49 [facility] MAIN Comment on above: Performed By: #### A DIFF, ANEU, CMP, GFR, CBC, MG ####[address] [address] AST [Catalytic activity/Vol] 37 U/L High 8-34 [facility] MAIN Comment on above: Performed By: #### A DIFF, ANEU, CMP, GFR, CBC, MG ####[address] [address] Bili Total 0.60 mg/dL Normal 0.20-1.20 [facility] MAIN Comment on above: Result Comment: Use of this assay is not recommended for patients undergoing treatment with eltrombopag due to the potential for falsely elevated results. Performed By: #### A DIFF, ANEU, CMP, GFR, CBC, MG ####[place] [address] BUN/Creatinine Ratio 24.1 ratio High 10.0-22.0 [facility] MAIN Comment on above: Performed By: #### A DIFF, ANEU, CMP, GFR, CBC, MG ####[address] [address] Calcium [Mass/Vol] 10.3 mg/dL Normal 8.7-10.4 [facility] MAIN Comment on above: Performed By: #### A DIFF, ANEU, CMP, GFR, CBC, MG ####[address] [address] Chloride [Moles/Vol] 106 mmol/L Normal 98-110 [facility] MAIN Comment on above: Performed By: #### A DIFF, ANEU, CMP, GFR, CBC, MG ####[address] [address] CO2 [Moles/Vol] 28 mmol/L Normal 22-32 [facility] MAIN Comment on above: Performed By: #### A DIFF, ANEU, CMP, GFR, CBC, MG ####[place] [address] Creatinine [Mass/Vol] 0.79 mg/dL Normal 0.50-1.20 [facility] MAIN Comment on above: Result Comment: Test ing performed on Fondeadora analyzer using enzymatic creatinine methodology. Performed By: #### A DIFF, ANEU, CMP, GFR, CBC, MG ####[place] [address] Electrolyte Balance 7.0 mEq/L Normal 4.0-15.0 [facility] MAIN Comment on above: Performed By: #### A DIFF, ANEU, CMP, GFR, CBC, MG ####[place] [address] Globulin 3.5 G/dL Normal 1.5-3.8 [facility] MAIN Comment on above: Performed By: #### A DIFF, ANEU, CMP, GFR, CBC, MG ####[place] [address] Glucose [Mass/Vol] 128 mg/dL High 82-115 [facility] MAIN Comment on above: Performed By: #### A DIFF, ANEU, CMP, GFR, CBC, MG ####[place] [address] Potassium [Moles/Vol] 4.0 mmol/L Normal 3.5-5.0 [facility] MAIN Comment on above: Performed By: #### A DIFF, ANEU, CMP, GFR, CBC, MG ####[place] [address] Sodium [Moles/Vol] 141 mmol/L Normal 136-145 [facility] MAIN Comment on above: Performed By: #### A DIFF, ANEU, CMP, GFR, CBC, MG ####[facility] [place] [address] Total Protein 6.3 G/dL Normal 5.7-8.2 [facility] MAIN Comment on above: Performed By: #### A DIFF, ANEU, CMP, GFR, CBC, MG ####[facility] [place] [address] Urea nitrogen [Mass/Vol] 19.0 mg/dL Normal 8.0-22.0 [facility] MAIN Comment on above: Performed By: #### A DIFF, ANEU, CMP, GFR, CBC, MG ####[facility] [place] [address] LABORATORYOrdered By: Emi delgadillo on 02-10-2024 Glucose [Mass/Vol] 151 mg/dL High 82 - 115 mg/dL [facility] LABORATORYOrdered By: Lenora Sal on 02-10-2024 Glucose [Mass/Vol] 121 mg/dL High 82 - 115 mg/dL [facility] LABORATORYOrdered By: Rhonda Flores on 02-10-2024 Glucose [Mass/Vol] 152 mg/dL High 82 - 115 mg/dL [facility] LABORATORYOrdered By: SYSTEM SYSTEM on 02-10-2024 Albumin [...] above: Interpretive Data: T esting performed on Fondeadora analyzer using enzymatic creatinine methodology. Electrolyte Balance [...] 02-10-2024 Magnesium [Mass/Vol] 1.7 mg/dL Normal 1.6-2.4 [facility] MAIN Comment on above: Performed By: #### A DIFF, ANEU, CMP, GFR, CBC, MG ####[address] [address] .Auto Diffon 02-09-2024 Basophil, Absolute 0.0 10 3/mcL Normal 0.0-0.3 [facility] MAIN Comment on above: Performed By: #### A DIFF, BMP, ANEU, CBC, GFR ####[address] [address] Basophils/100 WBC (Bld) 0.3 % Normal 0.0-2.5 [facility] MAIN Comment on above: Performed By: #### A DIFF, BMP, ANEU, CBC, GFR ####[address] [address] Eosinophil, Absolute 0.1 10 3/mcL Normal 0.0-0.7 [facility] MAIN Comment on above: Performed By: #### A DIFF, BMP, ANEU, CBC, GFR ####[address] [address] Eosinophils/100 WBC (Bld) 2.0 % Normal 0.0-6.0 [facility] MAIN Comment on above: Performed By: #### A DIFF, BMP, ANEU, CBC, GFR ####[address] [address] Lymphocyte, Absolute 2.2 10 3/mcL Normal 0.9-4.3 [facility] MAIN Comment on above: Performed By: #### A DIFF, BMP, ANEU, CBC, GFR ####[address] [address] Lymphocytes/100 WBC (Bld) 36.2 % Normal 20.0-40.0 [facility] MAIN Comment on above: Performed By: #### A DIFF, BMP, ANEU, CBC, GFR ####[address] [address] Monocyte, Absolute 0.5 10 3/mcL Normal 0.1-1.4 [facility] MAIN Comment on above: Performed By: #### A DIFF, BMP, ANEU, CBC, GFR ####[address] [address] Monocytes/100 WBC (Bld) 8.7 % Normal 2.0-13.0 [facility] MAIN Comment on above: Performed By: #### A DIFF, BMP, ANEU, CBC, GFR ####[address] [address] Neutrophils/100 WBC (Bld) 52.8 % Normal 50.0-75.0 [facility] MAIN Comment on above: Performed By: #### A DIFF, BMP, ANEU, CBC, GFR ####[address] [address] .GFRon 02-09-2024 GFR >60 Normal [facility] MAIN Comment on above: Result Comment: [...] #### A DIFF, BMP, ANEU, CBC, GFR ####[place] [address] [place] [address] GFR Non- >60 Normal [facility] MAIN Comment on above: Result Comment: GFR [...] #### A DIFF, BMP, ANEU, CBC, GFR ####[address] [address] .NEUABSon 02-09-2024 Neutrophil, Absolute 3.2 10 3/mcL Normal 2.3-8.1 [facility] MAIN Comment on above: Performed By: #### A DIFF, BMP, ANEU, CBC, GFR ####[address] [address] BMPon 02-09-2024 BUN/Creatinine Ratio 24.3 ratio High 10.0-22.0 [facility] MAIN Comment on above: Performed By: #### A DIFF, BMP, ANEU, CBC, GFR ####[address] [address] Calcium [Mass/Vol] 10.3 mg/dL Normal 8.7-10.4 [facility] MAIN Comment on above: Performed By: #### A DIFF, BMP, ANEU, CBC, GFR ####[address] [address] Chloride [Moles/Vol] 105 mmol/L Normal 98-110 [facility] MAIN Comment on above: Performed By: #### A DIFF, BMP, ANEU, CBC, GFR ####[address] [address] CO2 [Moles/Vol] 28 mmol/L Normal 22-32 [facility] MAIN Comment on above: Performed By: #### A DIFF, BMP, ANEU, CBC, GFR ####[address] [address] Creatinine [Mass/Vol] 0.74 mg/dL Normal 0.50-1.20 [facility] MAIN Comment on above: Result Comment: Test ing performed on Fondeadora analyzer using enzymatic creatinine methodology. Performed By: #### A DIFF, BMP, ANEU, CBC, GFR ####[address] [address] Electrolyte Balance 6.0 mEq/L Normal 4.0-15.0 [facility] MAIN Comment on above: Performed By: #### A DIFF, BMP, ANEU, CBC, GFR ####[address] [address] Glucose [Mass/Vol] 126 mg/dL High 82-115 [facility] MAIN Comment on above: Performed By: #### A DIFF, BMP, ANEU, CBC, GFR ####[address] [address] Potassium [Moles/Vol] 4.3 mmol/L Normal 3.5-5.0 [facility] MAIN Comment on above: Performed By: #### A DIFF, BMP, ANEU, CBC, GFR ####[address] [address] Sodium [Moles/Vol] 139 mmol/L Normal 136-145 [facility] MAIN Comment on above: Performed By: #### A DIFF, BMP, ANEU, CBC, GFR ####[place] [address] Urea nitrogen [Mass/Vol] 18.0 mg/dL Normal 8.0-22.0 [facility] MAIN Comment on above: Performed By: #### A DIFF, BMP, ANEU, CBC, GFR ####[place] [address] CBCon 02-09-2024 Erythrocyte distribution width (RBC) [Ratio] 14.6 % Normal 11.5-15.5 [facility] MAIN Comment on above: Performed By: #### A DIFF, BMP, ANEU, CBC, GFR ####[place] [address] Hematocrit (Bld) [Volume fraction] 40.1 % Normal 34.0-46.0 [facility] MAIN Comment on above: Performed By: #### A DIFF, BMP, ANEU, CBC, GFR ####[place] [address] Hgb 13.4 G/dL Normal 12.0-16.0 [facility] MAIN Comment on above: Performed By: #### A DIFF, BMP, ANEU, CBC, GFR ####[place] [address] MCH (RBC) [Entitic mass] 31.1 pg Normal 27.0-33.0 [facility] MAIN Comment on above: Performed By: #### A DIFF, BMP, ANEU, CBC, GFR ####[place] [address] MCHC 33.5 G/dL Normal 32.0-36.0 [facility] MAIN Comment on above: Performed By: #### A DIFF, BMP, ANEU, CBC, GFR ####[place] [address] MCV (RBC) [Entitic vol] 92.9 fL Normal 80.0-99.0 [facility] MAIN Comment on above: Performed By: #### A DIFF, BMP, ANEU, CBC, GFR ####[place] [address] Platelet 106 10 3/mcL Low 150-450 [facility] MAIN Comment on above: Performed By: #### A DIFF, BMP, ANEU, CBC, GFR ####[place] [address] [place] [address] Platelet mean volume (Bld) [Entitic vol] 8.4 fL Normal 6.6-10.5 [facility] MAIN Comment on above: Performed By: #### A DIFF, BMP, ANEU, CBC, GFR ####[place] [address] [place] [address] RBC 4.31 10 6/mcL Normal 4.10-5.30 [facility] MAIN Comment on above: Performed By: #### A DIFF, BMP, ANEU, CBC, GFR ####[place] [address] [place] [address] WBC 6.1 10 3/mcL Normal 4.5-10.8 [facility] MAIN Comment on above: Performed By: #### A DIFF, BMP, ANEU, CBC, GFR ####[place] [id number] LABORATORYOrdered By: Shawna Ovalles on 02-09-2024 Blood Glucose Testing Reason Routine (02/09/24 11:39 AM) [facility] Blood Glucose Testing Reason Routine (02/09/24 7:39 AM) [facility] LABORATORYOrdered By: SYSTEM SYSTEM on 02-09-2024 Basophils [...] above: Interpretive Data: T esting performed on Fondeadora analyzer using enzymatic creatinine methodology. Electrolyte Balance [...] (S/P/Bld) [Vol rate/Area] ml/min/1.73sqm Invalid Interpretation Code [facility] Comment on above: Interpretive Data: [...] (S/P/Bld) [Vol rate/Area] ml/min/1.73sqm Invalid Interpretation Code [facility] Comment on above: Interpretive Data: [...] Basophil, Absolute 0.0 10 3/mcL Normal 0.0-0.3 [facility] MAIN Comment on above: Performed By: #### A DIFF, MG, CMP, CBC, GFR, ANEU ####[address] [address] Basophils/100 WBC (Bld) 0.4 % Normal 0.0-2.5 [facility] MAIN Comment on above: Performed By: #### A DIFF, MG, CMP, CBC, GFR, ANEU ####[address] [address] Eosinophil, Absolute 0.1 10 3/mcL Normal 0.0-0.7 [facility] MAIN Comment on above: Performed By: #### A DIFF, MG, CMP, CBC, GFR, ANEU ####[address] [address] Eosinophils/100 WBC (Bld) 1.7 % Normal 0.0-6.0 [facility] MAIN Comment on above: Performed By: #### A DIFF, MG, CMP, CBC, GFR, ANEU ####[address] [address] Lymphocyte, Absolute 2.8 10 3/mcL Normal 0.9-4.3 [facility] MAIN Comment on above: Performed By: #### A DIFF, MG, CMP, CBC, GFR, ANEU ####[address] [address] Lymphocytes/100 WBC (Bld) 40.1 % High 20.0-40.0 [facility] MAIN Comment on above: Performed By: #### A DIFF, MG, CMP, CBC, GFR, ANEU ####[address] [address] Monocyte, Absolute 0.6 10 3/mcL Normal 0.1-1.4 [facility] MAIN Comment on above: Performed By: #### A DIFF, MG, CMP, CBC, GFR, ANEU ####[address] [address] Monocytes/100 WBC (Bld) 8.4 % Normal 2.0-13.0 [facility] MAIN Comment on above: Performed By: #### A DIFF, MG, CMP, CBC, GFR, ANEU ####[place] [address] [place] [address] Neutrophils/100 WBC (Bld) 49.4 % Low 50.0-75.0 [facility] MAIN Comment on above: Performed By: #### A DIFF, MG, CMP, CBC, GFR, ANEU ####[address] [address] .GFRon 02-08-2024 GFR Non- >60 Normal [facility] MAIN Comment on above: Result Comment: GFR [...] A DIFF, MG, CMP, CBC, GFR, ANEU ####[address] [address] GFR >60 Normal [facility] MAIN Comment on above: Result Comment: [...] A DIFF, MG, CMP, CBC, GFR, ANEU ####[place] [address] .NEUABSon 02-08-2024 Neutrophil, Absolute 3.4 10 3/mcL Normal 2.3-8.1 [facility] MAIN Comment on above: Performed By: #### A DIFF, MG, CMP, CBC, GFR, ANEU ####[place] [address] CBCon 02-08-2024 Erythrocyte distribution width (RBC) [Ratio] 14.4 % Normal 11.5-15.5 [facility] MAIN Comment on above: Performed By: #### A DIFF, MG, CMP, CBC, GFR, ANEU ####[place] [address] Hematocrit (Bld) [Volume fraction] 41.1 % Normal 34.0-46.0 [facility] MAIN Comment on above: Performed By: #### A DIFF, MG, CMP, CBC, GFR, ANEU ####[place] [address] Hgb 14.0 G/dL Normal 12.0-16.0 [facility] MAIN Comment on above: Performed By: #### A DIFF, MG, CMP, CBC, GFR, ANEU ####[place] [address] MCH (RBC) [Entitic mass] 31.6 pg Normal 27.0-33.0 [facility] MAIN Comment on above: Performed By: #### A DIFF, MG, CMP, CBC, GFR, ANEU ####[place] [address] MCHC 34.0 G/dL Normal 32.0-36.0 [facility] MAIN Comment on above: Performed By: #### A DIFF, MG, CMP, CBC, GFR, ANEU ####[place] [address] MCV (RBC) [Entitic vol] 92.8 fL Normal 80.0-99.0 [facility] MAIN Comment on above: Performed By: #### A DIFF, MG, CMP, CBC, GFR, ANEU ####[place] [address] Platelet 111 10 3/mcL Low 150-450 [facility] MAIN Comment on above: Performed By: #### A DIFF, MG, CMP, CBC, GFR, ANEU ####[place] [address] Platelet mean volume (Bld) [Entitic vol] 8.6 fL Normal 6.6-10.5 [facility] MAIN Comment on above: Performed By: #### A DIFF, MG, CMP, CBC, GFR, ANEU ####[place] [address] RBC 4.43 10 6/mcL Normal 4.10-5.30 [facility] MAIN Comment on above: Performed By: #### A DIFF, MG, CMP, CBC, GFR, ANEU ####[place] [address] WBC 6.9 10 3/mcL Normal 4.5-10.8 [facility] MAIN Comment on above: Performed By: #### A DIFF, MG, CMP, CBC, GFR, ANEU ####[place] [address] CMPon 02-08-2024 Albumin Level 3.0 G/dL Low 3.2-4.8 [facility] MAIN Comment on above: Performed By: #### A DIFF, MG, CMP, CBC, GFR, ANEU ####[place] [address] Albumin/Globulin [Mass ratio] 0.8 {ratio} Low 0.9-1.6 [facility] MAIN Comment on above: Performed By: #### A DIFF, MG, CMP, CBC, GFR, ANEU ####[place] [address] ALP [Catalytic activity/Vol] 74 U/L Normal 38-126 [facility] MAIN Comment on above: Performed By: #### A DIFF, MG, CMP, CBC, GFR, ANEU ####[place] [address] ALT [Catalytic activity/Vol] 33 U/L Normal 10-49 [facility] MAIN Comment on above: Performed By: #### A DIFF, MG, CMP, CBC, GFR, ANEU ####[address] [address] AST [Catalytic activity/Vol] 43 U/L High 8-34 [facility] MAIN Comment on above: Performed By: #### A DIFF, MG, CMP, CBC, GFR, ANEU ####[address] [address] Bili Total 0.60 mg/dL Normal 0.20-1.20 [facility] MAIN Comment on above: Result Comment: Use of this assay is not recommended for patients undergoing treatment with eltrombopag due to the potential for falsely elevated results. Performed By: #### A DIFF, MG, CMP, CBC, GFR, ANEU ####[place] [address] BUN/Creatinine Ratio 23.9 ratio High 10.0-22.0 [facility] MAIN Comment on above: Performed By: #### A DIFF, MG, CMP, CBC, GFR, ANEU ####[place] [address] Calcium [Mass/Vol] 10.5 mg/dL High 8.7-10.4 [facility] MAIN Comment on above: Performed By: #### A DIFF, MG, CMP, CBC, GFR, ANEU ####[address] [address] Chloride [Moles/Vol] 104 mmol/L Normal 98-110 [facility] MAIN Comment on above: Performed By: #### A DIFF, MG, CMP, CBC, GFR, ANEU ####[place] [address] CO2 [Moles/Vol] 29 mmol/L Normal 22-32 [facility] MAIN Comment on above: Performed By: #### A DIFF, MG, CMP, CBC, GFR, ANEU ####[place] [id number] Creatinine [Mass/Vol] 0.71 mg/dL Normal 0.50-1.20 [facility] MAIN Comment on above: Result Comment: Test ing performed on Fondeadora analyzer using enzymatic creatinine methodology. Performed By: #### A DIFF, MG, CMP, CBC, GFR, ANEU ####[address] [address] Electrolyte Balance 6.0 mEq/L Normal 4.0-15.0 [facility] MAIN Comment on above: Performed By: #### A DIFF, MG, CMP, CBC, GFR, ANEU ####[address] [address] Globulin 3.6 G/dL Normal 1.5-3.8 [facility] MAIN Comment on above: Performed By: #### A DIFF, MG, CMP, CBC, GFR, ANEU ####[address] [address] Glucose [Mass/Vol] 119 mg/dL High 82-115 [facility] MAIN Comment on above: Performed By: #### A DIFF, MG, CMP, CBC, GFR, ANEU ####[address] [address] Potassium [Moles/Vol] 4.0 mmol/L Normal 3.5-5.0 [facility] Comment on above: Performed By: #### A DIFF, MG, CMP, CBC, GFR, ANEU ####[address] [address] Sodium [Moles/Vol] 139 mmol/L Normal 136-145 [facility] MAIN Comment on above: Performed By: #### A DIFF, MG, CMP, CBC, GFR, ANEU ####[address] [address] Total Protein 6.6 G/dL Normal 5.7-8.2 [facility] Comment on above: Performed By: #### A DIFF, MG, CMP, CBC, GFR, ANEU ####[address] [address] Urea nitrogen [Mass/Vol] 17.0 mg/dL Normal 8.0-22.0 [facility] Comment on above: Performed By: #### A DIFF, MG, CMP, CBC, GFR, ANEU ####[address] [address] Final Surgical Pathology Rep [facility] 02-08-2024 Final Surgical Pathology Report . Pathology Reports Accession: Collected Date/Time: Received Date/Time: Pathologist: [id number] 02/06/2024 13:30 EDT 02/07/2024 07:47 EDT ROYER FOSTER MD Final Surgical Pathology Report DIAGNOSIS: INTERVERTEBRAL DISC -L3: - CARTILAGE TISSUE WITH NONSPECIFIC DEGENERATIVE CHANGES - NO SIGNIFICANT INFLAMMATION IDENTIFIED CLINICAL INFORMATION: DISCITIS VS OSTEO Procedure: L2-L3 DISC SPECIMEN: A L2-L3 GROSS DESCRIPTION: All parts labelled with patient name and [id number] Received in formalin labeled bone are multiple jenkins-white bone fragments ranging in size from less than 0.1 to 0.6 cm. Specimen submitted in biopsy bag for processing. TS-1 Modesta Zhang, Grossing Manager Zone/ Dr. Quincy Ramires, Pathologist Performed by Modesta Zhang MICROSCOPIC DESCRIPTION: The microscopic examination is performed, except in the case of Gross Only. Electronically Signed by Pathology Report verified by [facility] ROYER FOSTER Sign out Date: 02/08/2024 15:31 Performing Lab: [facility], [address] [place] [address] Pathology Dept Disclaimer If ancillary studies were utilized, the following Laboratory Developed Test (LDT) disclaimer will apply: Under CLIA requirements, [facility] is qualified to perform high complexity testing. For all ancillary stains, positive and negative controls stain appropriately. Performance characteristics of immunohistochemical and chromogenic in-situ hybridization tests have been determined by [facility]. These tests are used for clinical purposes, They should not be regarded as investigational or for research. Normal [facility] LABORATORYOrdered By: Laury Ching on 02-08-2024 [...] above: Interpretive Data: T esting performed on Fondeadora analyzer using enzymatic creatinine methodology. Electrolyte Balance [...] Glucose Testing Reason Routine (02/08/24 11:41 AM) [facility] MGon 02-08-2024 Magnesium [Mass/Vol] 1.4 mg/dL Low 1.6-2.4 [facility] Comment on above: Performed By: #### A DIFF, MG, CMP, CBC, GFR, ANEU ####[address] 02-08-2024 LDose Vancomycin:(trough) See eMAR Normal [facility] Comment on above: Performed By: #### V ANCT ####[place] [address] Vancomycin Tr 11.7 mcg/mL Normal 5.0-20.0 [facility] Comment on above: Performed By: #### V ANCT ####[place] [address] .Auto Diffon 02-07-2024 Basophil, Absolute 0.0 10 3/mcL Normal 0.0-0.3 [facility] Comment on above: Performed By: #### C BC, GFR, ANEU, ADIFF, BMP ####[place] [address] Basophils/100 WBC (Bld) 0.3 % Normal 0.0-2.5 [facility] Comment on above: Performed By: #### C BC, GFR, ANEU, ADIFF, BMP ####[place] [address] Eosinophil, Absolute 0.1 10 3/mcL Normal 0.0-0.7 [facility] MA[facility] Comment on above: Performed By: #### C BC, GFR, ANEU, ADIFF, BMP ####[place] [address] Eosinophils/100 WBC (Bld) 2.1 % Normal 0.0-6.0 [facility] Comment on above: Performed By: #### C BC, GFR, ANEU, ADIFF, BMP ####[place] [address] Lymphocyte, Absolute 2.1 10 3/mcL Normal 0.9-4.3 [facility] Comment on above: Performed By: #### C BC, GFR, ANEU, ADIFF, BMP ####[place] [address] Lymphocytes/100 WBC (Bld) 38.5 % Normal 20.0-40.0 [facility] Comment on above: Performed By: #### C BC, GFR, ANEU, ADIFF, BMP ####[address] [address] Monocyte, Absolute 0.5 10 3/mcL Normal 0.1-1.4 [facility] MAIN Comment on above: Performed By: #### C BC, GFR, ANEU, ADIFF, BMP ####[address] [address] Monocytes/100 WBC (Bld) 8.8 % Normal 2.0-13.0 [facility] Comment on above: Performed By: #### C BC, GFR, ANEU, ADIFF, BMP ####[address] [address] Neutrophils/100 WBC (Bld) 50.3 % Normal 50.0-75.0 [facility] Comment on above: Performed By: #### C BC, GFR, ANEU, ADIFF, BMP ####[address] [address] .GFRon 02-07-2024 GFR Non- >60 [facility] MAIN Comment on above: Result [...] #### C BC, GFR, ANEU, ADIFF, BMP ####[address] [address] GFR >60 Normal [facility] MAIN Comment on above: Result Comment: [...] #### C BC, GFR, ANEU, ADIFF, BMP ####[address] [address] .NEUABSon 02-07-2024 Neutrophil, Absolute 2.8 10 3/mcL Normal 2.3-8.1 [facility] MAIN Comment on above: Performed By: #### C BC, GFR, ANEU, ADIFF, BMP ####[address] [address] BMPon 02-07-2024 BUN/Creatinine Ratio 15.8 ratio Normal 10.0-22.0 [facility] MAIN Comment on above: Performed By: #### C BC, GFR, ANEU, ADIFF, BMP ####[address] [address] Calcium [Mass/Vol] 10.4 mg/dL Normal 8.7-10.4 [facility] MAIN Comment on above: Performed By: #### C BC, GFR, ANEU, ADIFF, BMP ####[address] [address] Chloride [Moles/Vol] 105 mmol/L Normal 98-110 [facility] MAIN Comment on above: Performed By: #### C BC, GFR, ANEU, ADIFF, BMP ####[address] [address] CO2 [Moles/Vol] 30 mmol/L Normal 22-32 [facility] MAIN Comment on above: Performed By: #### C BC, GFR, ANEU, ADIFF, BMP ####[address] [address] Creatinine [Mass/Vol] 0.76 mg/dL Normal 0.50-1.20 [facility] MAIN Comment on above: Result Comment: Test ing performed on Fondeadora analyzer using enzymatic creatinine methodology. Performed By: #### C BC, GFR, ANEU, ADIFF, BMP ####[place] [address] Electrolyte Balance 5.0 mEq/L Normal 4.0-15.0 [facility] MAIN Comment on above: Performed By: #### C BC, GFR, ANEU, ADIFF, BMP ####[place] [address] Glucose [Mass/Vol] 128 mg/dL High 82-115 [facility] MAIN Comment on above: Performed By: #### C BC, GFR, ANEU, ADIFF, BMP ####[place] [address] Potassium [Moles/Vol] 4.3 mmol/L Normal 3.5-5.0 [facility] MAIN Comment on above: Performed By: #### C BC, GFR, ANEU, ADIFF, BMP ####[place] [address] Sodium [Moles/Vol] 140 mmol/L Normal 136-145 [facility] MAIN Comment on above: Performed By: #### C BC, GFR, ANEU, ADIFF, BMP ####[place] [address] Urea nitrogen [Mass/Vol] 12.0 mg/dL Normal 8.0-22.0 [facility] MAIN Comment on above: Performed By: #### C BC, GFR, ANEU, ADIFF, BMP ####[place] [address] CBCon 02-07-2024 Erythrocyte distribution width (RBC) [Ratio] 14.3 % Normal 11.5-15.5 [facility] MAIN Comment on above: Performed By: #### C BC, GFR, ANEU, ADIFF, BMP ####[place] [address] Hematocrit (Bld) [Volume fraction] 39.0 % Normal 34.0-46.0 [facility] MAIN Comment on above: Performed By: #### C BC, GFR, ANEU, ADIFF, BMP ####[place] [address] Hgb 13.3 G/dL Normal 12.0-16.0 [facility] MAIN Comment on above: Performed By: #### C BC, GFR, ANEU, ADIFF, BMP ####[place] [address] MCH (RBC) [Entitic mass] 31.3 pg Normal 27.0-33.0 [facility] MAIN Comment on above: Performed By: #### C BC, GFR, ANEU, ADIFF, BMP ####[place] [address] MCHC 34.2 G/dL Normal 32.0-36.0 [facility] MAIN Comment on above: Performed By: #### C BC, GFR, ANEU, ADIFF, BMP ####[place] [address] MCV (RBC) [Entitic vol] 91.7 fL Normal 80.0-99.0 [facility] MAIN Comment on above: Performed By: #### C BC, GFR, ANEU, ADIFF, BMP ####[place] [address] Platelet 119 10 3/mcL Low 150-450 [facility] MAIN Comment on above: Performed By: #### C BC, GFR, ANEU, ADIFF, BMP ####[place] [address] Platelet mean volume (Bld) [Entitic vol] 8.4 fL Normal 6.6-10.5 [facility] MAIN Comment on above: Performed By: #### C BC, GFR, ANEU, ADIFF, BMP ####[place] [address] RBC 4.26 10 6/mcL Normal 4.10-5.30 [facility] MAIN Comment on above: Performed By: #### C BC, GFR, ANEU, ADIFF, BMP ####[place] [address] WBC 5.5 10 3/mcL Normal 4.5-10.8 [facility] MAIN Comment on above: Performed By: #### C BC, GFR, ANEU, ADIFF, BMP ####[address] [address] .Auto Diffon 02-06-2024 Basophil, Absolute 0.0 10 3/mcL Normal 0.0-0.3 [facility] MAIN Comment on above: Performed By: #### B MP, GFR, CBC, ADIFF, ANEU ####[address] [address] Basophils/100 WBC (Bld) 0.3 % Normal 0.0-2.5 [facility] MAIN Comment on above: Performed By: #### B MP, GFR, CBC, ADIFF, ANEU ####[address] [address] Eosinophil, Absolute 0.1 10 3/mcL Normal 0.0-0.7 [facility] MAIN Comment on above: Performed By: #### B MP, GFR, CBC, ADIFF, ANEU ####[address] [address] Eosinophils/100 WBC (Bld) 2.3 % Normal 0.0-6.0 [facility] MAIN Comment on above: Performed By: #### B MP, GFR, CBC, ADIFF, ANEU ####[address] [address] Lymphocyte, Absolute 2.7 10 3/mcL Normal 0.9-4.3 [facility] MAIN Comment on above: Performed By: #### B MP, GFR, CBC, ADIFF, ANEU ####[address] [address] Lymphocytes/100 WBC (Bld) 41.4 % High 20.0-40.0 [facility] MAIN Comment on above: Performed By: #### B MP, GFR, CBC, ADIFF, ANEU ####[address] [address] Monocyte, Absolute 0.5 10 3/mcL Normal 0.1-1.4 [facility] MAIN Comment on above: Performed By: #### B MP, GFR, CBC, ADIFF, ANEU ####[address] [address] Monocytes/100 WBC (Bld) 7.8 % Normal 2.0-13.0 [facility] MAIN Comment on above: Performed By: #### B MP, GFR, CBC, ADIFF, ANEU ####[place] [address] [place] [address] Neutrophils/100 WBC (Bld) 48.2 % Low 50.0-75.0 [facility] MAIN Comment on above: Performed By: #### B MP, GFR, CBC, ADIFF, ANEU ####[address] [address] .GFRon 02-06-2024 GFR Non- >60 Normal [facility] MAIN Comment on above: Result Comment: GFR [...] #### B MP, GFR, CBC, ADIFF, ANEU ####[address] [address] GFR >60 Normal [facility] MAIN Comment on above: Result Comment: [...] #### B MP, GFR, CBC, ADIFF, ANEU ####[address] [address] .NEUABSon 02-06-2024 Neutrophil, Absolute 3.1 10 3/mcL Normal 2.3-8.1 [facility] MAIN Comment on above: Performed By: #### B MP, GFR, CBC, ADIFF, ANEU ####[place] [id number] BMPon 02-06-2024 BUN/Creatinine Ratio 15.8 ratio Normal 10.0-22.0 [facility] MAIN Comment on above: Performed By: #### B MP, GFR, CBC, ADIFF, ANEU ####[place] [address] Calcium [Mass/Vol] 10.6 mg/dL High 8.7-10.4 [facility] MAIN Comment on above: Performed By: #### B MP, GFR, CBC, ADIFF, ANEU ####[place] [address] Chloride [Moles/Vol] 105 mmol/L Normal 98-110 [facility] MAIN Comment on above: Performed By: #### B MP, GFR, CBC, ADIFF, ANEU ####[place] [address] CO2 [Moles/Vol] 30 mmol/L Normal 22-32 [facility] MAIN Comment on above: Performed By: #### B MP, GFR, CBC, ADIFF, ANEU ####[place] [address] Creatinine [Mass/Vol] 0.76 mg/dL Normal 0.50-1.20 [facility] MAIN Comment on above: Result Comment: Test ing performed on Fondeadora analyzer using enzymatic creatinine methodology. Performed By: #### B MP, GFR, CBC, ADIFF, ANEU ####[place] [address] Electrolyte Balance 5.0 mEq/L Normal 4.0-15.0 [facility] MAIN Comment on above: Performed By: #### B MP, GFR, CBC, ADIFF, ANEU ####[address] [address] Glucose [Mass/Vol] 121 mg/dL High 82-115 [facility] MAIN Comment on above: Performed By: #### B MP, GFR, CBC, ADIFF, ANEU ####[address] [address] Potassium [Moles/Vol] 4.6 mmol/L Normal 3.5-5.0 [facility] MAIN Comment on above: Performed By: #### B MP, GFR, CBC, ADIFF, ANEU ####[place] [phone] Sodium [Moles/Vol] 140 mmol/L Normal 136-145 [facility] MAIN Comment on above: Performed By: #### B MP, GFR, CBC, ADIFF, ANEU ####[place] [address] Urea nitrogen [Mass/Vol] 12.0 mg/dL Normal 8.0-22.0 [facility] MAIN Comment on above: Performed By: #### B MP, GFR, CBC, ADIFF, ANEU ####[place] [address] CBCon 02-06-2024 Erythrocyte distribution width (RBC) [Ratio] 14.4 % Normal 11.5-15.5 [facility] MAIN Comment on above: Performed By: #### B MP, GFR, CBC, ADIFF, ANEU ####[place] [address] Hematocrit (Bld) [Volume fraction] 40.1 % Normal 34.0-46.0 [facility] MAIN Comment on above: Performed By: #### B MP, GFR, CBC, ADIFF, ANEU ####[address] [address] Hgb 13.8 G/dL Normal 12.0-16.0 [facility] MAIN Comment on above: Performed By: #### B MP, GFR, CBC, ADIFF, ANEU ####[address] [address] MCH (RBC) [Entitic mass] 31.6 pg Normal 27.0-33.0 [facility] MAIN Comment on above: Performed By: #### B MP, GFR, CBC, ADIFF, ANEU ####[place] [address] MCHC 34.5 G/dL Normal 32.0-36.0 [facility] MAIN Comment on above: Performed By: #### B MP, GFR, CBC, ADIFF, ANEU ####[place] [address] MCV (RBC) [Entitic vol] 91.4 fL Normal 80.0-99.0 [facility] MAIN Comment on above: Performed By: #### B MP, GFR, CBC, ADIFF, ANEU ####[place] [address] Platelet 130 10 3/mcL Low 150-450 [facility] MAIN Comment on above: Performed By: #### B MP, GFR, CBC, ADIFF, ANEU ####[place] [address] Platelet mean volume (Bld) [Entitic vol] 8.2 fL Normal 6.6-10.5 [facility] MAIN Comment on above: Performed By: #### B MP, GFR, CBC, ADIFF, ANEU ####[place] [address] RBC 4.38 10 6/mcL Normal 4.10-5.30 [facility] MAIN Comment on above: Performed By: #### B MP, GFR, CBC, ADIFF, ANEU ####[place] [address] WBC 6.4 10 3/mcL Normal 4.5-10.8 [facility] MAIN Comment on above: Performed By: #### B MP, GFR, CBC, ADIFF, ANEU ####[place] [address] No Panel Informationon 02-05 AFS Acid Fast Smear from Concentrated Specimen: Negative [facility] Culture Fungus No fungus isolated t o date. Final report to follow. [facility] Culture Wound Deep Panel No growth to date [facility] FUNSM No fungal elements observed by calcofluor white stain. [facility] GS No organisms seen. [facility] .Auto Diffon 02-05-2024 Basophil, Absolute 0.1 10 3/mcL Normal 0.0-0.3 [facility] MAIN Comment on above: Performed By: #### B MP, CBC, GFR, ANEU, ADIFF ####[address] [address] Basophils/100 WBC (Bld) 1.1 % Normal 0.0-2.5 [facility] MAIN Comment on above: Performed By: #### B MP, CBC, GFR, ANEU, ADIFF ####[address] [address] Eosinophil, Absolute 0.1 10 3/mcL Normal 0.0-0.7 [facility] MAIN Comment on above: Performed By: #### B MP, CBC, GFR, ANEU, ADIFF ####[address] [address] Eosinophils/100 WBC (Bld) 2.2 % Normal 0.0-6.0 [facility] MAIN Comment on above: Performed By: #### B MP, CBC, GFR, ANEU, ADIFF ####[address] [address] Lymphocyte, Absolute 2.4 10 3/mcL Normal 0.9-4.3 [facility] MAIN Comment on above: Performed By: #### B MP, CBC, GFR, ANEU, ADIFF ####[address] [address] Lymphocytes/100 WBC (Bld) 39.8 % Normal 20.0-40.0 [facility] MAIN Comment on above: Performed By: #### B MP, CBC, GFR, ANEU, ADIFF ####[address] [address] Monocyte, Absolute 0.5 10 3/mcL Normal 0.1-1.4 [facility] MAIN Comment on above: Performed By: #### B MP, CBC, GFR, ANEU, ADIFF ####[place] [address] [place] [address] Monocytes/100 WBC (Bld) 8.9 % Normal 2.0-13.0 [facility] MAIN Comment on above: Performed By: #### B MP, CBC, GFR, ANEU, ADIFF ####[place] [address] [place] [address] Neutrophils/100 WBC (Bld) 48.0 % Low 50.0-75.0 [facility] MAIN Comment on above: Performed By: #### B MP, CBC, GFR, ANEU, ADIFF ####[address] [address] .GFRon 02-05-2024 GFR Non- >60 [facility] MAIN Comment on above: Result [...] #### B MP, CBC, GFR, ANEU, ADIFF ####[address] [address] GFR >60 Normal [facility] MAIN Comment on above: Result Comment: [...] #### B MP, CBC, GFR, ANEU, ADIFF ####[place] [phone] .NEUABSon 02-05-2024 Neutrophil, Absolute 3.0 10 3/mcL Normal 2.3-8.1 [facility] MAIN Comment on above: Performed By: #### B MP, CBC, GFR, ANEU, ADIFF ####[place] [address] BMPon 02-05-2024 BUN/Creatinine Ratio 19.7 ratio Normal 10.0-22.0 [facility] MAIN Comment on above: Performed By: #### B MP, CBC, GFR, ANEU, ADIFF ####[place] [address] Calcium [Mass/Vol] 10.1 mg/dL Normal 8.7-10.4 [facility] MAIN Comment on above: Performed By: #### B MP, CBC, GFR, ANEU, ADIFF ####[place] [address] Chloride [Moles/Vol] 107 mmol/L Normal 98-110 [facility] MAIN Comment on above: Performed By: #### B MP, CBC, GFR, ANEU, ADIFF ####[place] [address] CO2 [Moles/Vol] 25 mmol/L Normal 22-32 [facility] MAIN Comment on above: Performed By: #### B MP, CBC, GFR, ANEU, ADIFF ####[place] [address] Creatinine [Mass/Vol] 0.71 mg/dL Normal 0.50-1.20 [facility] MAIN Comment on above: Result Comment: Test ing performed on Fondeadora analyzer using enzymatic creatinine methodology. Performed By: #### B MP, CBC, GFR, ANEU, ADIFF ####[place] [address] Electrolyte Balance 8.0 mEq/L Normal 4.0-15.0 [facility] MAIN Comment on above: Performed By: #### B MP, CBC, GFR, ANEU, ADIFF ####[place] [address] Glucose [Mass/Vol] 136 mg/dL High 82-115 [facility] MAIN Comment on above: Performed By: #### B MP, CBC, GFR, ANEU, ADIFF ####[place] [phone] Potassium [Moles/Vol] 4.4 mmol/L Normal 3.5-5.0 [facility] MAIN Comment on above: Result Comment: Spec imen slightly hemolyzed. Performed By: #### B MP, CBC, GFR, ANEU, ADIFF ####[place] [address] Sodium [Moles/Vol] 140 mmol/L Normal 136-145 [facility] MAIN Comment on above: Performed By: #### B MP, CBC, GFR, ANEU, ADIFF ####[place] [address] Urea nitrogen [Mass/Vol] 14.0 mg/dL Normal 8.0-22.0 [facility] MAIN Comment on above: Performed By: #### B MP, CBC, GFR, ANEU, ADIFF ####[place] [address] CBCon 02-05-2024 Erythrocyte distribution width (RBC) [Ratio] 14.4 % Normal 11.5-15.5 [facility] MAIN Comment on above: Order Comment: clott ed please recollect - called no answer 02/05/2024 07:06:20 EDT Performed By: #### B MP, CBC, GFR, ANEU, ADIFF ####[place] [address] Hematocrit (Bld) [Volume fraction] 39.0 % Normal 34.0-46.0 [facility] MAIN Comment on above: Order Comment: clott ed please recollect - called no answer 02/05/2024 07:06:20 EDT Performed By: #### B MP, CBC, GFR, ANEU, ADIFF ####[place] [address] Hgb 13.3 G/dL Normal 12.0-16.0 [facility] MAIN Comment on above: Order Comment: clott ed please recollect - called no answer 02/05/2024 07:06:20 EDT Performed By: #### B MP, CBC, GFR, ANEU, ADIFF ####[address] [address] MCH (RBC) [Entitic mass] 31.2 pg Normal 27.0-33.0 [facility] MAIN Comment on above: Order Comment: clott ed please recollect - called no answer 02/05/2024 07:06:20 EDT Performed By: #### B MP, CBC, GFR, ANEU, ADIFF ####[place] [address] MCHC 34.1 G/dL Normal 32.0-36.0 [facility] MAIN Comment on above: Order Comment: clott ed please recollect - called no answer 02/05/2024 07:06:20 EDT Performed By: #### B MP, CBC, GFR, ANEU, ADIFF ####[place] [address] MCV (RBC) [Entitic vol] 91.4 fL Normal 80.0-99.0 [facility] MAIN Comment on above: Order Comment: clott ed please recollect - called no answer 02/05/2024 07:06:20 EDT Performed By: #### B MP, CBC, GFR, ANEU, ADIFF ####[place] [address] Platelet 123 10 3/mcL Low 150-450 [facility] MAIN Comment on above: Order Comment: clott ed please recollect - called no answer 02/05/2024 07:06:20 EDT Performed By: #### B MP, CBC, GFR, ANEU, ADIFF ####[place] [address] Platelet mean volume (Bld) [Entitic vol] 9.0 fL Normal 6.6-10.5 [facility] MAIN Comment on above: Order Comment: clott ed please recollect - called no answer 02/05/2024 07:06:20 EDT Performed By: #### B MP, CBC, GFR, ANEU, ADIFF ####[facility] [place] [address] RBC 4.26 10 6/mcL Normal 4.10-5.30 [facility] MAIN Comment on above: Order Comment: clott ed please recollect - called no answer 02/05/2024 07:06:20 EDT Performed By: #### B MP, CBC, GFR, ANEU, ADIFF ####[facility] [place] [address] WBC 6.1 10 3/mcL Normal 4.5-10.8 [facility] MAIN Comment on above: Order Comment: clott ed please recollect - called no answer 02/05/2024 07:06:20 EDT Performed By: #### B MP, CBC, GFR, ANEU, ADIFF ####[address] [address] .Auto Diffon 02-04-2024 Basophil, Absolute 0.0 10 3/mcL Normal 0.0-0.3 [facility] MAIN Comment on above: Performed By: #### A DIFF, GFR, CBC, ANEU, BMP #### [address] [address] Basophils/100 WBC (Bld) 0.3 % Normal 0.0-2.5 [facility] MAIN Comment on above: Performed By: #### A DIFF, GFR, CBC, ANEU, BMP #### [address] [address] Eosinophil, Absolute 0.1 10 3/mcL Normal 0.0-0.7 [facility] MAIN Comment on above: Performed By: #### A DIFF, GFR, CBC, ANEU, BMP #### [address] [address] Eosinophils/100 WBC (Bld) 1.7 % Normal 0.0-6.0 [facility] MAIN Comment on above: Performed By: #### A DIFF, GFR, CBC, ANEU, BMP #### [address] [address] Lymphocyte, Absolute 1.8 10 3/mcL Normal 0.9-4.3 [facility] MAIN Comment on above: Performed By: #### A DIFF, GFR, CBC, ANEU, BMP #### [address] [address] Lymphocytes/100 WBC (Bld) 27.3 % Normal 20.0-40.0 [facility] MAIN Comment on above: Performed By: #### A DIFF, GFR, CBC, ANEU, BMP #### [address] [address] Monocyte, Absolute 0.4 10 3/mcL Normal 0.1-1.4 [facility] MAIN Comment on above: Performed By: #### A DIFF, GFR, CBC, ANEU, BMP #### [address] [address] Monocytes/100 WBC (Bld) 6.6 % Normal 2.0-13.0 [facility] MAIN Comment on above: Performed By: #### A DIFF, GFR, CBC, ANEU, BMP #### [address] [address] Neutrophils/100 WBC (Bld) 64.1 % Normal 50.0-75.0 [facility] MAIN Comment on above: Performed By: #### A DIFF, GFR, CBC, ANEU, BMP #### [address] [address] .GFRon 02-04-2024 GFR >60 Normal [facility] MAIN Comment on above: Result Comment: [...] #### A DIFF, GFR, CBC, ANEU, BMP ####[address] [address] GFR Non- >60 Normal [facility] MAIN Comment on above: Result Comment: GFR [...] #### A DIFF, GFR, CBC, ANEU, BMP ####[address] [address] .NEUABSon 02-04-2024 Neutrophil, Absolute 4.1 10 3/mcL Normal 2.3-8.1 [facility] MAIN Comment on above: Performed By: #### A DIFF, GFR, CBC, ANEU, BMP ####[address] [address] BMPon 02-04-2024 BUN/Creatinine Ratio 21.7 ratio Normal 10.0-22.0 [facility] MAIN Comment on above: Performed By: #### A DIFF, GFR, CBC, ANEU, BMP ####[address] [address] Calcium [Mass/Vol] 10.1 mg/dL Normal 8.7-10.4 [facility] MAIN Comment on above: Performed By: #### A DIFF, GFR, CBC, ANEU, BMP ####[address] [address] Chloride [Moles/Vol] 108 mmol/L Normal 98-110 [facility] MAIN Comment on above: Performed By: #### A DIFF, GFR, CBC, ANEU, BMP ####[address] [address] CO2 [Moles/Vol] 22 mmol/L Normal 22-32 [facility] MAIN Comment on above: Performed By: #### A DIFF, GFR, CBC, ANEU, BMP ####[place] [address] Creatinine [Mass/Vol] 0.69 mg/dL Normal 0.50-1.20 [facility] MAIN Comment on above: Result Comment: Test ing performed on Fondeadora analyzer using enzymatic creatinine methodology. Performed By: #### A DIFF, GFR, CBC, ANEU, BMP ####[place] [address] Electrolyte Balance 9.0 mEq/L Normal 4.0-15.0 [facility] MAIN Comment on above: Performed By: #### A DIFF, GFR, CBC, ANEU, BMP ####[place] [address] Glucose [Mass/Vol] 143 mg/dL High 82-115 [facility] MAIN Comment on above: Performed By: #### A DIFF, GFR, CBC, ANEU, BMP ####[place] [address] Potassium [Moles/Vol] 4.1 mmol/L Normal 3.5-5.0 [facility] MAIN Comment on above: Performed By: #### A DIFF, GFR, CBC, ANEU, BMP ####[place] [address] Sodium [Moles/Vol] 139 mmol/L Normal 136-145 [facility] MAIN Comment on above: Performed By: #### A DIFF, GFR, CBC, ANEU, BMP ####[place] [address] Urea nitrogen [Mass/Vol] 15.0 mg/dL Normal 8.0-22.0 [facility] MAIN Comment on above: Performed By: #### A DIFF, GFR, CBC, ANEU, BMP ####[place] [address] CBCon 02-04-2024 Erythrocyte distribution width (RBC) [Ratio] 14.5 % Normal 11.5-15.5 [facility] MAIN Comment on above: Performed By: #### A DIFF, GFR, CBC, ANEU, BMP #### [address] [address] Hematocrit (Bld) [Volume fraction] 39.3 % Normal 34.0-46.0 [facility] MAIN Comment on above: Performed By: #### A DIFF, GFR, CBC, ANEU, BMP #### [address] [address] Hgb 13.3 G/dL Normal 12.0-16.0 [facility] MAIN Comment on above: Performed By: #### A DIFF, GFR, CBC, ANEU, BMP #### [place] [id number] MCH (RBC) [Entitic mass] 31.3 pg Normal 27.0-33.0 [facility] MAIN Comment on above: Performed By: #### A DIFF, GFR, CBC, ANEU, BMP #### [place] [address] MCHC 33.8 G/dL Normal 32.0-36.0 [facility] MAIN Comment on above: Performed By: #### A DIFF, GFR, CBC, ANEU, BMP #### [place] [id number] MCV (RBC) [Entitic vol] 92.9 fL Normal 80.0-99.0 [facility] MAIN Comment on above: Performed By: #### A DIFF, GFR, CBC, ANEU, BMP #### [place] [id number] Platelet 123 10 3/mcL Low 150-450 [facility] MAIN Comment on above: Performed By: #### A DIFF, GFR, CBC, ANEU, BMP #### [place] [address] Platelet mean volume (Bld) [Entitic vol] 8.6 fL Normal 6.6-10.5 [facility] MAIN Comment on above: Performed By: #### A DIFF, GFR, CBC, ANEU, BMP #### [place] [id number] RBC 4.23 10 6/mcL Normal 4.10-5.30 [facility] MAIN Comment on above: Performed By: #### A DIFF, GFR, CBC, ANEU, BMP #### [place] [id number] [place] [address] WBC 6.5 10 3/mcL Normal 4.5-10.8 [facility] MAIN Comment on above: Performed By: #### A DIFF, GFR, CBC, ANEU, BMP #### [place] [id number] [place] [address] .Auto Diffon 02-03-2024 Basophil, Absolute 0.0 10 3/mcL Normal 0.0-0.3 [facility] MAIN Comment on above: Performed By: #### G FR, ANEU, ADIFF, BMP, CBC ####[address] [address] Basophils/100 WBC (Bld) 0.2 % Normal 0.0-2.5 [facility] MAIN Comment on above: Performed By: #### G FR, ANEU, ADIFF, BMP, CBC ####[address] [address] Eosinophil, Absolute 0.1 10 3/mcL Normal 0.0-0.7 [facility] MAIN Comment on above: Performed By: #### G FR, ANEU, ADIFF, BMP, CBC ####[address] [address] Eosinophils/100 WBC (Bld) 2.3 % Normal 0.0-6.0 [facility] MAIN Comment on above: Performed By: #### G FR, ANEU, ADIFF, BMP, CBC ####[address] [address] Lymphocyte, Absolute 2.6 10 3/mcL Normal 0.9-4.3 [facility] MAIN Comment on above: Performed By: #### G FR, ANEU, ADIFF, BMP, CBC ####[address] [address] Lymphocytes/100 WBC (Bld) 40.9 % High 20.0-40.0 [facility] Comment on above: Performed By: #### G FR, ANEU, ADIFF, BMP, CBC ####[address] [address] Monocyte, Absolute 0.5 10 3/mcL Normal 0.1-1.4 [facility] Comment on above: Performed By: #### G FR, ANEU, ADIFF, BMP, CBC ####[place] [id number] [place] [id number] Monocytes/100 WBC (Bld) 8.2 % Normal 2.0-13.0 [facility] Comment on above: Performed By: #### G FR, ANEU, ADIFF, BMP, CBC ####[place] [id number] [place] [id number] Neutrophils/100 WBC (Bld) 48.4 % Low 50.0-75.0 [facility] Comment on above: Performed By: #### G FR, ANEU, ADIFF, BMP, CBC ####[place] [id number] [place] [id number] .GFRon 02-03-2024 GFR >60 Normal [facility] Comment on above: Result Comment: [...] #### G FR, ANEU, ADIFF, BMP, CBC ####[address] [address] GFR Non- >60 Normal [facility] Comment on above: Result Comment: GFR [...] #### G FR, ANEU, ADIFF, BMP, CBC ####[address] [address] .NEUABSon 02-03-2024 Neutrophil, Absolute 3.1 10 3/mcL Normal 2.3-8.1 [facility] Comment on above: Performed By: #### G FR, ANEU, ADIFF, BMP, CBC ####[place] [address] BMPon 02-03-2024 BUN/Creatinine Ratio 25.9 ratio High 10.0-22.0 [facility] Comment on above: Performed By: #### G FR, ANEU, ADIFF, BMP, CBC ####[place] [address] Calcium [Mass/Vol] 9.8 mg/dL Normal 8.7-10.4 [facility] MA[facility] Comment on above: Performed By: #### G FR, ANEU, ADIFF, BMP, CBC ####[place] [address] Chloride [Moles/Vol] 109 mmol/L Normal 98-110 [facility] MAIN Comment on above: Performed By: #### G FR, ANEU, ADIFF, BMP, CBC ####[place] [address] CO2 [Moles/Vol] 27 mmol/L Normal 22-32 [facility]IN Comment on above: Performed By: #### G FR, ANEU, ADIFF, BMP, CBC ####[place] [address] Creatinine [Mass/Vol] 0.85 mg/dL Normal 0.50-1.20 [facility] Comment on above: Result Comment: Test ing performed on Fondeadora analyzer using enzymatic creatinine methodology. Performed By: #### G FR, ANEU, ADIFF, BMP, CBC ####[place] [address] Electrolyte Balance 5.0 mEq/L Normal 4.0-15.0 [facility]IN Comment on above: Performed By: #### G FR, ANEU, ADIFF, BMP, CBC ####[place] [address] Glucose [Mass/Vol] 127 mg/dL High 82-115 [facility] Comment on above: Performed By: #### G FR, ANEU, ADIFF, BMP, CBC ####[place] [address] Potassium [Moles/Vol] 3.7 mmol/L Normal 3.5-5.0 [facility] Comment on above: Performed By: #### G FR, ANEU, ADIFF, BMP, CBC ####[place] [address] Sodium [Moles/Vol] 141 mmol/L Normal 136-145 [facility] Comment on above: Performed By: #### G FR, ANEU, ADIFF, BMP, CBC ####[place] [address] Urea nitrogen [Mass/Vol] 22.0 mg/dL Normal 8.0-22.0 [facility] Comment on above: Performed By: #### G FR, ANEU, ADIFF, BMP, CBC ####[place] [address] CBCon 02-03-2024 Erythrocyte distribution width (RBC) [Ratio] 14.3 % Normal 11.5-15.5 [facility] Comment on above: Performed By: #### G FR, ANEU, ADIFF, BMP, CBC ####[place] [address] Hematocrit (Bld) [Volume fraction] 38.9 % Normal 34.0-46.0 [facility] Comment on above: Performed By: #### G FR, ANEU, ADIFF, BMP, CBC ####[place] [address] Hgb 13.1 G/dL Normal 12.0-16.0 [facility] Comment on above: Performed By: #### G FR, ANEU, ADIFF, BMP, CBC ####[place] [address] MCH (RBC) [Entitic mass] 31.2 pg Normal 27.0-33.0 [facility] Comment on above: Performed By: #### G FR, ANEU, ADIFF, BMP, CBC ####[place] [address] MCHC 33.7 G/dL Normal 32.0-36.0 [facility] MA[facility] Comment on above: Performed By: #### G FR, ANEU, ADIFF, BMP, CBC ####[place] [address] MCV (RBC) [Entitic vol] 92.5 fL Normal 80.0-99.0 [facility] Comment on above: Performed By: #### G FR, ANEU, ADIFF, BMP, CBC ####[place] [address] Platelet 124 10 3/mcL Low 150-450 [facility] MA[facility] Comment on above: Performed By: #### G FR, ANEU, ADIFF, BMP, CBC ####[place] [address] Platelet mean volume (Bld) [Entitic vol] 8.7 fL Normal 6.6-10.5 [facility] Comment on above: Performed By: #### G FR, ANEU, ADIFF, BMP, CBC ####[place] [address] RBC 4.20 10 6/mcL Normal 4.10-5.30 [facility] Comment on above: Performed By: #### G FR, ANEU, ADIFF, BMP, CBC ####[place] [address] WBC 6.5 10 3/mcL Normal 4.5-10.8 [facility] Comment on above: Performed By: #### G FR, ANEU, ADIFF, BMP, CBC ####[place] [address] LABORATORYOrdered By: Laury Ching on 02-03-2024 LDose [...] 02/03/2024 5:05:50 PM Ordering Provider: FABI REYES [facility] 02-03-2024 LDose Vancomycin:(trough) See eMAR [facility] MAIN Comment on above: Performed By: #### V ANCT ####[place] [address] Vancomycin Tr 12.1 mcg/mL Normal 5.0-20.0 [facility] Comment on above: Performed By: #### V ANCT ####[place] [address] .Auto Diffon 02-02-2024 Basophil, Absolute 0.0 10 3/mcL Normal 0.0-0.3 [facility] Comment on above: Performed By: #### A DIFF, ANEU, CBC, BMP, GFR ####[place] [address] Basophils/100 WBC (Bld) 0.3 % Normal 0.0-2.5 [facility] Comment on above: Performed By: #### A DIFF, ANEU, CBC, BMP, GFR ####[place] [address] Eosinophil, Absolute 0.2 10 3/mcL Normal 0.0-0.7 [facility] MAIN Comment on above: Performed By: #### A DIFF, ANEU, CBC, BMP, GFR ####[address] [address] Eosinophils/100 WBC (Bld) 1.9 % Normal 0.0-6.0 [facility] Comment on above: Performed By: #### A DIFF, ANEU, CBC, BMP, GFR ####[address] [address] Lymphocyte, Absolute 3.3 10 3/mcL Normal 0.9-4.3 [facility] MAIN Comment on above: Performed By: #### A DIFF, ANEU, CBC, BMP, GFR ####[address] [address] Lymphocytes/100 WBC (Bld) 34.6 % Normal 20.0-40.0 [facility] Comment on above: Performed By: #### A DIFF, ANEU, CBC, BMP, GFR ####[address] [address] Monocyte, Absolute 0.7 10 3/mcL Normal 0.1-1.4 [facility] Comment on above: Performed By: #### A DIFF, ANEU, CBC, BMP, GFR ####[address] [address] Monocytes/100 WBC (Bld) 6.9 % Normal 2.0-13.0 [facility] Comment on above: Performed By: #### A DIFF, ANEU, CBC, BMP, GFR ####[address] [address] Neutrophils/100 WBC (Bld) 56.3 % Normal 50.0-75.0 [facility] Comment on above: Performed By: #### A DIFF, ANEU, CBC, BMP, GFR ####[address] [address] .GFRon 02-02-2024 GFR Non- 58 ml/min/1.73sqm Normal [facility] MAIN Comment on above: Result Comment: GFR [...] #### A DIFF, ANEU, CBC, BMP, GFR ####[address] [address] GFR >60 Normal [facility] MAIN Comment on above: Result Comment: [...] #### A DIFF, ANEU, CBC, BMP, GFR ####[address] [address] .NEUABSon 02-02-2024 Neutrophil, Absolute 5.4 10 3/mcL Normal 2.3-8.1 [facility] MAIN Comment on above: Performed By: #### A DIFF, ANEU, CBC, BMP, GFR ####[address] [address] BMPon 02-02-2024 BUN/Creatinine Ratio 26.0 ratio High 10.0-22.0 [facility] Comment on above: Performed By: #### A DIFF, ANEU, CBC, BMP, GFR ####[address] [address] Calcium [Mass/Vol] 10.2 mg/dL Normal 8.7-10.4 [facility] Comment on above: Performed By: #### A DIFF, ANEU, CBC, BMP, GFR ####[address] [address] Chloride [Moles/Vol] 108 mmol/L Normal 98-110 [facility] Comment on above: Performed By: #### A DIFF, ANEU, CBC, BMP, GFR ####[address] [address] CO2 [Moles/Vol] 24 mmol/L Normal 22-32 [facility] Comment on above: Performed By: #### A DIFF, ANEU, CBC, BMP, GFR ####[address] [address] Creatinine [Mass/Vol] 0.96 mg/dL Normal 0.50-1.20 [facility] Comment on above: Result Comment: Test ing performed on Fondeadora analyzer using enzymatic creatinine methodology. Performed By: #### A DIFF, ANEU, CBC, BMP, GFR ####[address] [address] Electrolyte Balance 9.0 mEq/L Normal 4.0-15.0 [facility]IN Comment on above: Performed By: #### A DIFF, ANEU, CBC, BMP, GFR ####[address] [address] Glucose [Mass/Vol] 108 mg/dL Normal 82-115 [facility] Comment on above: Performed By: #### A DIFF, ANEU, CBC, BMP, GFR ####[address] [address] Potassium [Moles/Vol] 3.6 mmol/L Normal 3.5-5.0 [facility] Comment on above: Performed By: #### A DIFF, ANEU, CBC, BMP, GFR ####[address] [address] Sodium [Moles/Vol] 141 mmol/L Normal 136-145 [facility] Comment on above: Performed By: #### A DIFF, ANEU, CBC, BMP, GFR ####[address] [address] Urea nitrogen [Mass/Vol] 25.0 mg/dL High 8.0-22.0 [facility] Comment on above: Performed By: #### A DIFF, ANEU, CBC, BMP, GFR ####[place] [address] CBCon 02-02-2024 Erythrocyte distribution width (RBC) [Ratio] 14.7 % Normal 11.5-15.5 [facility] Comment on above: Performed By: #### A DIFF, ANEU, CBC, BMP, GFR ####[place] [address] Hematocrit (Bld) [Volume fraction] 41.4 % Normal 34.0-46.0 [facility] Comment on above: Performed By: #### A DIFF, ANEU, CBC, BMP, GFR ####[place] [address] Hgb 13.9 G/dL Normal 12.0-16.0 [facility] Comment on above: Performed By: #### A DIFF, ANEU, CBC, BMP, GFR ####[place] [address] MCH (RBC) [Entitic mass] 31.0 pg Normal 27.0-33.0 [facility]IN Comment on above: Performed By: #### A DIFF, ANEU, CBC, BMP, GFR ####[place] [address] MCHC 33.5 G/dL Normal 32.0-36.0 [facility] Comment on above: Performed By: #### A DIFF, ANEU, CBC, BMP, GFR ####[place] [address] MCV (RBC) [Entitic vol] 92.4 fL Normal 80.0-99.0 [facility] Comment on above: Performed By: #### A DIFF, ANEU, CBC, BMP, GFR ####[place] [address] Platelet 136 10 3/mcL Low 150-450 [facility] MAIN Comment on above: Performed By: #### A DIFF, ANEU, CBC, BMP, GFR ####[place] [address] Platelet mean volume (Bld) [Entitic vol] 8.6 fL Normal 6.6-10.5 [facility] Comment on above: Performed By: #### A DIFF, ANEU, CBC, BMP, GFR ####[place] [address] RBC 4.48 10 6/mcL Normal 4.10-5.30 [facility] Comment on above: Performed By: #### A DIFF, ANEU, CBC, BMP, GFR ####[place] [address] WBC 9.6 10 3/mcL Normal 4.5-10.8 [facility] Comment on above: Performed By: #### A DIFF, ANEU, CBC, BMP, GFR ####[place] [address] CRPon 02-02-2024 CRP [Mass/Vol] mg/L Normal 0.0-1.0 [facility] MA[facility] Comment on above: Result Comment: No te - New Reference Range in effect 19 Performed By: #### E SR, CRP ####[place] [address] ESRon 02-02-2024 Erythrocyte Sed Rate 33 mm/hr High 0-30 [facility] Comment on above: Performed By: #### E SR, CRP ####[place] [address] LABORATORYOrdered By: SYSTEM SYSTEM on 02-02-2024 CRP [Mass/Vol] mg/dL Normal 0.0 - 1.0 mg/dL AH ADM SS Comment on above: Interpretive Data: * *Note - New Reference Range in effect 19 LABORATORYOrdered By: [employer] Supervisor on 02-02-2024 ESR 15 minute reading (Bld) [Velocity] 33 mm/hr High 0 - 30 mm/hr AH Auto Heme SS No Panel Informationon 02-01 Microscopic examination of blood, culture Blood Culture: No Growth at 5 days. [facility] .Auto Diffon 02-01-2024 Basophil, Absolute 0.0 10 3/mcL Normal 0.0-0.3 [facility] Comment on above: Performed By: #### A CYNDI, ADIFF, MG, CBC, GFR, BMP ####[address] [address] Basophils/100 WBC (Bld) 0.2 % Normal 0.0-2.5 [facility] Comment on above: Performed By: #### A CYNDI, ADIFF, MG, CBC, GFR, BMP ####[address] [address] Eosinophil, Absolute 0.2 10 3/mcL Normal 0.0-0.7 [facility] Comment on above: Performed By: #### A CYNDI, ADIFF, MG, CBC, GFR, BMP ####[address] [address] Eosinophils/100 WBC (Bld) 2.2 % Normal 0.0-6.0 [facility] Comment on above: Performed By: #### A CYNDI, ADIFF, MG, CBC, GFR, BMP ####[address] [address] Lymphocyte, Absolute 2.8 10 3/mcL Normal 0.9-4.3 [facility] MAIN Comment on above: Performed By: #### A CYNDI, ADIFF, MG, CBC, GFR, BMP ####[address] [address] Lymphocytes/100 WBC (Bld) 29.0 % Normal 20.0-40.0 [facility] Comment on above: Performed By: #### A CYNDI, ADIFF, MG, CBC, GFR, BMP ####[address] [address] Monocyte, Absolute 0.8 10 3/mcL Normal 0.1-1.4 [facility] Comment on above: Performed By: #### A CYNDI, ADIFF, MG, CBC, GFR, BMP ####[address] [address] Monocytes/100 WBC (Bld) 8.2 % Normal 2.0-13.0 [facility] Comment on above: Performed By: #### A CYNDI, ADIFF, MG, CBC, GFR, BMP ####[address] [address] Neutrophils/100 WBC (Bld) 60.4 % Normal 50.0-75.0 [facility] Comment on above: Performed By: #### A CYNDI, ADIFF, MG, CBC, GFR, BMP ####[address] [address] Basophil, Absolute 0.1 10 3/mcL Normal 0.0-0.[address] [facility] Comment on above: Performed By: #### C BC, ADIFF, VANCT, ANEU, GFR, CMP, ESR #### [address] [address] Basophils/100 WBC (Bld) 1.1 % Normal 0.0-2.5 [facility] Comment on above: Performed By: #### C BC, ADIFF, VANCT, ANEU, GFR, CMP, ESR #### [address] [address] Eosinophil, Absolute 0.2 10 3/mcL Normal 0.0-0.7 [facility] Comment on above: Performed By: #### C BC, ADIFF, VANCT, ANEU, GFR, CMP, ESR #### [address] [address] Eosinophils/100 WBC (Bld) 2.6 % Normal 0.0-7.0 [facility] Comment on above: Performed By: #### C BC, ADIFF, VANCT, ANEU, GFR, CMP, ESR #### [address] [address] Lymphocyte, Absolute 2.7 10 3/mcL Normal 0.9-4.3 [facility] Comment on above: Performed By: #### C BC, ADIFF, VANCT, ANEU, GFR, CMP, ESR #### [address] [address] Lymphocytes/100 WBC (Bld) 34.0 % Normal 20.0-40.0 [facility] Comment on above: Performed By: #### C BC, ADIFF, VANCT, ANEU, GFR, CMP, ESR #### [address] [address] Monocyte, Absolute 0.6 10 3/mcL Normal 0.1-1.[address] [facility] Comment on above: Performed By: #### C BC, ADIFF, VANCT, ANEU, GFR, CMP, ESR #### [address] [address] Monocytes/100 WBC (Bld) 7.9 % Normal 2.0-13.0 [facility] Comment on above: Performed By: #### C BC, ADIFF, VANCT, ANEU, GFR, CMP, ESR #### [address] [address] Neutrophils/100 WBC (Bld) 54.4 % Normal 50.0-75.0 [facility] Comment on above: Performed By: #### C BC, ADIFF, VANCT, ANEU, GFR, CMP, ESR #### [address] [address] .GFRon 02-01-2024 GFR 59 ml/min/1.73sqm [facility] MAIN Comment on above: Result [...] A CYNDI, ELENIIFF, MG, CBC, GFR, BMP ####[address] [address] GFR Non- 48 ml/min/1.73sqm [facility] MAIN Comment on above: Result [...] A CYNDI, ADIFF, MG, CBC, GFR, BMP ####[place] [address] [address] [place] [address] GFR 69 ml/min/1.73sqm [facility] Comment on above: Result Comment: GFR Population [...] ADIFF, VANCT, ANEU, GFR, CMP, ESR #### [facility] [address] [place], [place] [address] GFR Non- 57 ml/min/1.73sqm [facility] Comment on above: Result Comment: GFR Population [...] ADIFF, VANCT, ANEU, GFR, CMP, ESR #### [address] [address] .MDWon 02-01-2024 Monocyte Distribution Width 22.13 High 0.00-20.00 [facility] Comment on above: Result Comment: For adults in ED, MDW>20.0 may be associated with a higher risk of sepsis during the first 12hrs of hospital admission Performed By: #### C BC, ADIFF, VANCT, ANEU, GFR, CMP, ESR #### [address] [address] .NEUABSon 02-01-2024 Neutrophil, Absolute 5.7 10 3/mcL Normal 2.3-8.1 [facility] Comment on above: Performed By: #### A CYNDI, ADIFF, MG, CBC, GFR, BMP ####[address] [address] Neutrophil, Absolute 4.4 10 3/mcL Normal 2.3-8.1 [facility] Comment on above: Performed By: #### C BC, ADIFF, VANCT, ANEU, GFR, CMP, ESR #### [address] [address] BMPon 02-01-2024 BUN/Creatinine Ratio 22.3 ratio High 10.0-22.0 [facility] Comment on above: Performed By: #### A CYNDI, ADIFF, MG, CBC, GFR, BMP ####[address] [address] Calcium [Mass/Vol] 10.1 mg/dL Normal 8.7-10.4 [facility]IN Comment on above: Performed By: #### A CYNDI, ADIFF, MG, CBC, GFR, BMP ####[address] [address] Chloride [Moles/Vol] 105 mmol/L Normal 98-110 [facility] MAIN Comment on above: Performed By: #### A CYNDI, ADIFF, MG, CBC, GFR, BMP ####[address] [address] CO2 [Moles/Vol] 25 mmol/L Normal 22-32 [facility]IN Comment on above: Performed By: #### A CYNDI, ADIFF, MG, CBC, GFR, BMP ####[address] [address] Creatinine [Mass/Vol] 1.12 mg/dL Normal 0.50-1.20 [facility] Comment on above: Result Comment: Test ing performed on Fondeadora analyzer using enzymatic creatinine methodology. Performed By: #### A CYNDI, ADIFF, MG, CBC, GFR, BMP ####[address] [address] Electrolyte Balance 10.0 mEq/L Normal 4.0-15.0 [facility]IN Comment on above: Performed By: #### A CYNDI, ADIFF, MG, CBC, GFR, BMP ####[address] [address] Glucose [Mass/Vol] 113 mg/dL Normal 82-115 [facility] MAIN Comment on above: Performed By: #### A CYNDI, ADIFF, MG, CBC, GFR, BMP ####[address] [address] Potassium [Moles/Vol] 3.6 mmol/L Normal 3.5-5.0 [facility] Comment on above: Performed By: #### A CYNDI, ADIFF, MG, CBC, GFR, BMP ####[address] [address] Sodium [Moles/Vol] 140 mmol/L Normal 136-145 [facility] Comment on above: Performed By: #### A CYNDI, ADIFF, MG, CBC, GFR, BMP ####[address] [address] Urea nitrogen [Mass/Vol] 25.0 mg/dL High 8.0-22.0 [facility] Comment on above: Performed By: #### A CYNDI, ADIFF, MG, CBC, GFR, BMP ####[place] [address] CBCon 02-01-2024 Erythrocyte distribution width (RBC) [Ratio] 14.6 % Normal 11.5-15.5 [facility] Comment on above: Performed By: #### A CYNDI, ADIFF, MG, CBC, GFR, BMP ####[place] [address] Hematocrit (Bld) [Volume fraction] 42.0 % Normal 34.0-46.0 [facility] Comment on above: Performed By: #### A CYNDI, ADIFF, MG, CBC, GFR, BMP ####[place] [address] Hgb 14.2 G/dL Normal 12.0-16.0 [facility] Comment on above: Performed By: #### A CYNDI, ADIFF, MG, CBC, GFR, BMP ####[place] [address] MCH (RBC) [Entitic mass] 31.2 pg Normal 27.0-33.0 [facility] Comment on above: Performed By: #### A CYNDI, ADIFF, MG, CBC, GFR, BMP ####[place] [address] MCHC 33.8 G/dL Normal 32.0-36.0 [facility] Comment on above: Performed By: #### A CYNDI, ADIFF, MG, CBC, GFR, BMP ####[place] [address] MCV (RBC) [Entitic vol] 92.3 fL Normal 80.0-99.0 [facility] Comment on above: Performed By: #### A CYNDI, ADIFF, MG, CBC, GFR, BMP ####[place] [address] Platelet 149 10 3/mcL Low 150-450 [facility] Comment on above: Performed By: #### A CYNDI, ADIFF, MG, CBC, GFR, BMP ####[address] [address] Platelet mean volume (Bld) [Entitic vol] 8.3 fL Normal 6.6-10.5 [facility] Comment on above: Performed By: #### A CYNDI, ADIFF, MG, CBC, GFR, BMP ####[address] [address] RBC 4.56 10 6/mcL Normal 4.10-5.30 [facility] Comment on above: Performed By: #### A CYNDI, ADIFF, MG, CBC, GFR, BMP ####[address] [address] WBC 9.5 10 3/mcL Normal 4.5-10.8 [facility] Comment on above: Performed By: #### A CYNDI, ADIFF, MG, CBC, GFR, BMP ####[address] [address] Erythrocyte distribution width (RBC) [Ratio] 14.3 % Normal 11.5-15.5 [facility] Comment on above: Performed By: #### C BC, ADIFF, VANCT, ANEU, GFR, CMP, ESR #### [address] [address] Hematocrit (Bld) [Volume fraction] 40.6 % Normal 34.0-46.0 [facility] Comment on above: Performed By: #### C BC, ADIFF, VANCT, ANEU, GFR, CMP, ESR #### [address] [address] Hgb 13.7 G/dL Normal 12.0-16.0 [facility] Comment on above: Performed By: #### C BC, ADIFF, VANCT, ANEU, GFR, CMP, ESR #### [address] [address] MCH (RBC) [Entitic mass] 31.5 pg Normal 27.0-33.0 [facility] Comment on above: Performed By: #### C BC, ADIFF, VANCT, ANEU, GFR, CMP, ESR #### [address] [address] MCHC 33.8 G/dL Normal 32.0-36.0 [facility] Comment on above: Performed By: #### C BC, ADIFF, VANCT, ANEU, GFR, CMP, ESR #### [address] [address] MCV (RBC) [Entitic vol] 93.1 fL Normal 80.0-99.0 [facility] Comment on above: Performed By: #### C BC, ADIFF, VANCT, ANEU, GFR, CMP, ESR #### [address] [address] Platelet 149 10 3/mcL Low 150-450 [facility] Comment on above: Performed By: #### C BC, ADIFF, VANCT, ANEU, GFR, CMP, ESR #### [address] [address] Platelet mean volume (Bld) [Entitic vol] 8.1 fL Normal 6.6-10.5 [facility] Comment on above: Performed By: #### C BC, ADIFF, VANCT, ANEU, GFR, CMP, ESR #### [address] [address] RBC 4.36 10 6/mcL Normal 4.10-5.30 [facility] Comment on above: Performed By: #### C BC, ADIFF, VANCT, ANEU, GFR, CMP, ESR #### [address] [address] WBC 8.1 10 3/mcL Normal 4.5-10.8 [facility] Comment on above: Performed By: #### C BC, ADIFF, VANCT, ANEU, GFR, CMP, ESR #### [address] [address] CMPon 02-01-2024 Albumin Level 3.2 G/dL Low 3.4-4.8 [facility] Comment on above: Performed By: #### C BC, ADIFF, VANCT, ANEU, GFR, CMP, ESR #### [address] [address] Albumin/Globulin [Mass ratio] 0.9 {ratio} Low 1.1-2.5 [facility] Comment on above: Performed By: #### C BC, ADIFF, VANCT, ANEU, GFR, CMP, ESR #### [address] [address] ALP [Catalytic activity/Vol] 82 U/L Normal 40-135 [facility] Comment on above: Performed By: #### C BC, ADIFF, VANCT, ANEU, GFR, CMP, ESR #### [address] [address] ALT [Catalytic activity/Vol] 45 U/L Normal 14-59 [facility] Comment on above: Performed By: #### C BC, ADIFF, VANCT, ANEU, GFR, CMP, ESR #### [address] [address] AST [Catalytic activity/Vol] 59 U/L High 10-40 [facility] Comment on above: Performed By: #### C BC, ADIFF, VANCT, ANEU, GFR, CMP, ESR #### [address] [address] Bili Total 0.8 mg/dL Normal 0.2-1.0 [facility] Comment on above: Result Comment: Use of this assay is not recommended for patients undergoing treatment with eltrombopag due to the potential for falsely elevated results. Performed By: #### C BC, ADIFF, VANCT, ANEU, GFR, CMP, ESR #### [address] [address] BUN/Creatinine Ratio 23 ratio Normal 7-[address] [facility] Comment on above: Performed By: #### C BC, ADIFF, VANCT, ANEU, GFR, CMP, ESR #### [address] [address] Calcium [Mass/Vol] 9.8 mg/dL Normal 8.4-10.2 [facility] Comment on above: Performed By: #### C BC, ADIFF, VANCT, ANEU, GFR, CMP, ESR #### [address] [address] Chloride [Moles/Vol] 101 mmol/L Normal 98-[address] [facility] Comment on above: Performed By: #### C BC, ADIFF, VANCT, ANEU, GFR, CMP, ESR #### [address] [address] CO2 [Moles/Vol] 27 mmol/L Normal 23-31 [facility] Comment on above: Performed By: #### C BC, ADIFF, VANCT, ANEU, GFR, CMP, ESR #### [place] [address] Creatinine [Mass/Vol] 0.97 mg/dL Normal 0.55-1.02 [facility] Comment on above: Result Comment: Test ing performed on Siemens Dimension EXL analyzer using a modified kinetic Gagandeep technique. Performed By: #### C BC, ADIFF, VANCT, ANEU, GFR, CMP, ESR #### [address] [address] Electrolyte Balance 8.0 mEq/L Normal 4.0-15.0 [facility] Comment on above: Performed By: #### C BC, ADIFF, VANCT, ANEU, GFR, CMP, ESR #### [address] [address] Globulin 3.6 G/dL Normal [facility] Comment on above: Performed By: #### C BC, ADIFF, VANCT, ANEU, GFR, CMP, ESR #### [address] [address] Glucose [Mass/Vol] 133 mg/dL High 80-115 [facility] Comment on above: Performed By: #### C BC, ADIFF, VANCT, ANEU, GFR, CMP, ESR #### [address] [address] Potassium [Moles/Vol] 4.0 mmol/L Normal 3.5-5.1 [facility] Comment on above: Performed By: #### C BC, ADIFF, VANCT, ANEU, GFR, CMP, ESR #### [place] [id number] [place], [place] [address] Sodium [Moles/Vol] 136 mmol/L Normal 136-145 [facility] Comment on above: Performed By: #### C BC, ADIFF, VANCT, ANEU, GFR, CMP, ESR #### [place] [address] [place], [place] [address] Total Protein 6.8 G/dL Normal 6.4-8.2 [facility] Comment on above: Performed By: #### C BC, ADIFF, VANCT, ANEU, GFR, CMP, ESR #### [place] [id number] [place], [place] [address] Urea nitrogen [Mass/Vol] 22 mg/dL High 7-18 [facility] Comment on above: Performed By: #### C BC, ADIFF, VANCT, ANEU, GFR, CMP, ESR #### [place] [address] [place], [place] [address] CT ABD/PELVIS W/ IV CONTRAST ONLYon 02-01-2024 [...] 02/01/2024 1:58:29 PM Ordering Provider: LAURA Moss [facility] LABORATORYOrdered By: SYSTEM SYSTEM on 02-01-2024 Magnesium [...] Glucose Testing Reason Routine (02/01/24 3:23 PM) [facility] Glucose [Mass/Vol] 138 mg/dL High 82 - 115 mg/dL [facility] LABORATORYOrdered By: Jose Garrett on 02-01-2024 Appearance [...] Glucose Testing Reason Routine (02/01/24 2:33 PM) [facility] Glucose [Mass/Vol] 133 mg/dL High 82 - 115 mg/dL [facility] LIPon 02-01-2024 Lipase Level 26 U/L Normal 16-77 [facility] Comment on above: Performed By: #### C BC, ADIFF, VANCT, ANEU, GFR, CMP, ESR #### [address] [address] MGon 02-01-2024 Magnesium [Mass/Vol] 1.4 mg/dL Low 1.6-2.4 [facility] Comment on above: Performed By: #### A CYNDI, ADIFF, MG, CBC, GFR, BMP ####[address] [address] UAon 02-01-2024 Color (U) Yellow Normal [facility] Comment on above: Performed By: #### U A #### [address] [address] Glucose (U) [Mass/Vol] Negative Normal Negative [facility] Comment on above: Performed By: #### U A #### [address] [address] Ketones Ql (U) Negative Normal Negative [facility] Comment on above: Performed By: #### U A #### [address] [address] UA Appear Clear Normal Clear [facility] Comment on above: Performed By: #### U A #### [address] [address] UA Blood Negative Normal Negative [facility] Comment on above: Performed By: #### U A #### [place] [address] UA Leuk Est Negative Normal Negative [facility] Comment on above: Performed By: #### U A #### [place] [address] UA Nitrite Negative Normal Negative [facility] Comment on above: Performed By: #### U A #### [place] [address] UA pH 5.5 Normal 5.0 - 8.0 [facility] Comment on above: Performed By: #### U A #### [place] [address] UA Protein Negative Normal Negative [facility] Comment on above: Performed By: #### U A #### [place] [address] UA Spec Grav 1.015 Normal 1.015-1.025 [facility] Comment on above: Performed By: #### U A #### [place] [address] UA Specimen Type Clean Catch Normal [facility] Comment on above: Performed By: #### U A #### [place] [address] UA Urobilinogen 0.2 E.U./dL Normal 0.2-1.0 [facility] Comment on above: Performed By: #### U A #### [place] [address] Urobilinogen (U) [Mass/Vol] Negative Normal Negative [facility] Comment on above: Performed By: #### U A #### [facility] [address] [place], [place] [address] Gastroenterology Visit Repor ton 01-05-2024 Gastroenterology Visit Report [facility] Gastroenterology [address] [place] [address] OFFICE VISIT Date of Service: 01/05/24 MR#: [id number] Acct: [id number] Name: GLORIA RODRIGUEZ Rep #: [id number] : 1955 Provider: PENNIE Chambers Age/Sex: 68/F Location: [facility] [place] Status: Signed Intake Vital Signs 11/22/23 14:13 [...] Pt last [facility] about 20 years ago. [facility] Medical History Pneumonia Cough Anxiety disorder, [...] to the office today for establishment with [facility]. Patient has a PMHx of [...] Const Co (more content not included)... Normal [facility] Urine Cultureon 12-11-2023 URC #1,2 Below infection level. Bacteria Ur Cult #1 PROBABLE PROTEUS SPECIES Gram negative anam [place] Count <1000 GNR lactose platform stapler [place] Count <1000 Normal [facility] Comment on above: Performed By: #### M 100.2200 ####[facility] [address] [facility] [place], [place], [address] Abdomen/Pelvis W IV Cont ONL Yon 12-10-2023 Abdomen/Pelvis W IV Cont ONLY [facility] Imaging Services [address] [place], [place] [address] Abdomen/Pelvis W IV Cont ONLY MR#: [id number] Acct: [id number] Name: GLORIA RODRIGUEZ Rep #: [id number] : 1955 F 67 From: Ron Mcintosh PCP: Dr. Agnes Hernandez DO Status: REG ER Study: Abdomen/Pelvis W IV Cont ONLY Date of Exam: Exam# [id number] Ordering Dr: Jake Montalvo DO [id number] STUDY: CT ABDOMEN AND PELVIS WITH CONTRAST [...] Jake Montalvo, DO; Dr. Agnes Hernandez DO Immigration Paralegal: Signed Normal [facility] CBC W/Diff, Automatedon 11-17 Absolute Lymph 2.17 X10 3/uL Normal 0.83-4.51 [facility] Comment on above: Performed By: #### L 100.0100, L500.4050 ####[facility] [address] [place], [address] Absolute Neut 2.9 X10 3/uL Normal 2.0-7.7 [facility] Comment on above: Performed By: #### L 100.0100, L500.4050 ####[facility] [address] [place], [address] Basophils/100 WBC (Bld) 0.3 % Normal 0-1 [facility] Comment on above: Performed By: #### L 100.0100, L500.4050 ####[facility] [address] [place], [address] Eosinophils/100 WBC (Bld) 5.6 % High 0-5 [facility] Comment on above: Performed By: #### L 100.0100, L500.4050 ####[facility] [address] [place], [address] Erythrocyte distribution width (RBC) [Ratio] 14.4 % Normal 11.6-14.6 [facility] Comment on above: Performed By: #### L 100.0100, L500.4050 ####[facility] [address] [place], [address] Hematocrit (Bld) [Volume fraction] 37.1 % Normal 37-47 [facility] Comment on above: Performed By: #### L 100.0100, L500.4050 ####[facility] [address] [place], [address] Hemoglobin (Bld) [Mass/Vol] 12.5 g/dL Normal 12.0-15.0 [facility] Comment on above: Performed By: #### L 100.0100, L500.4050 ####[facility] [address] [place], [address] IG% 0.200 Normal 0.0-0.9 [facility] Comment on above: Result Comment: IG% - Immature Granulocytes (promyelocytes, myelocytes and metamyelocytes) > 1% indicates that a LEFT SHIFT is Present. Performed By: #### L 100.0100, L500.4050 ####[facility] [address] [place], [address] Lymphocytes/100 WBC (Bld) 36.8 % Normal 19-41 [facility] Comment on above: Performed By: #### L 100.0100, L500.4050 ####[facility] [address] [place], [address] MCH (RBC) [Entitic mass] 31.1 pg Normal 27.0-32.0 [facility] Comment on above: Performed By: #### L 100.0100, L500.4050 ####[facility] [address] [place], [address] MCHC (RBC) [Mass/Vol] 33.7 g/dL Normal 32-36 [facility] Comment on above: Performed By: #### L 100.0100, L500.4050 ####[facility] [address] [place], [address] MCV (RBC) [Entitic vol] 92.3 fL Normal 81-99 [facility] Comment on above: Performed By: #### L 100.0100, L500.4050 ####[facility] [address] [place], [address] Monocytes/100 WBC (Bld) 7.1 % Normal 0-10 [facility] Comment on above: Performed By: #### L 100.0100, L500.4050 ####[facility] [address] [place], [address] Neutrophils/100 WBC (Bld) 50.0 % Normal 47-70 [facility] Comment on above: Performed By: #### L 100.0100, L500.4050 ####[facility] [address] [place], [address] Nucleated RBC (Bld) [#/Vol] 0 10*3/uL Normal 0-5 [facility] Comment on above: Performed By: #### L 100.0100, L500.4050 ####[facility] [address] [place], [address] Platelet mean volume (Bld) [Entitic vol] 10.0 fL Normal 6.2-12.0 [facility] Comment on above: Performed By: #### L 100.0100, L500.4050 ####[facility] [address] [place], [address] Platelets (Bld) [#/Vol] 132 10*3/uL Low 150-450 [facility] Comment on above: Performed By: #### L 100.0100, L500.4050 ####[facility] [address] [place], [address] RBC (Bld) [#/Vol] 4.02 10*6/uL Low 4.2-5.4 [facility] Comment on above: Performed By: #### L 100.0100, L500.4050 ####[facility] [address] [place], [address] RDW SD 48.0 fl High 35.1-43.9 [facility] Comment on above: Performed By: #### L 100.0100, L500.4050 ####[facility] [address] [place], [address] WBC (Bld) [#/Vol] 5.9 10*3/uL Normal 4.4-11.0 [facility] Comment on above: Performed By: #### L 100.0100, L500.4050 ####[facility] [address] [place], [address] Comprehensive Metabolic Prof ilon 12-10-2023 Albumin [Mass/Vol] 3.0 g/dL Low 3.2-5.0 [facility] Comment on above: Performed By: #### L 100.0100, L500.4050 ####[facility] [address] [place], [address] Albumin/Globulin [Mass ratio] 0.7 {ratio} Low 0.9-2.4 [facility] Comment on above: Performed By: #### L 100.0100, L500.4050 ####[facility] [address] [place], [address] ALK P 79 U/L Normal 45-117 [facility] Comment on above: Performed By: #### L 100.0100, L500.4050 ####[facility] [address] [place], [address] ALT [Catalytic activity/Vol] 38 U/L Normal 13-56 [facility] Comment on above: Performed By: #### L 100.0100, L500.4050 ####[facility] [address] [place], [address] AST [Catalytic activity/Vol] 44 U/L High 15-37 [facility] Comment on above: Performed By: #### L 100.0100, L500.4050 ####[facility] [address] [place], [address] Bilirubin [Mass/Vol] 0.60 mg/dL Normal 0.20-1.00 [facility] Comment on above: Result Comment: For patients on eltrombopag therapy, use of Dimension [place] TBIL is not recommended. Performed By: #### L 100.0100, L500.4050 ####[facility] [address] [place], [address] BUN/CRE 20.4 RATIO High 10-20 [facility] Comment on above: Performed By: #### L 100.0100, L500.4050 ####[facility] [address] [place], [address] CA,Total 10.1 mg/dL Normal 8.5-10.1 [facility] Comment on above: Performed By: #### L 100.0100, L500.4050 ####[facility] [address] [place], [address] Chloride [Moles/Vol] 105 mmol/L Normal 98-107 [facility] Comment on above: Performed By: #### L 100.0100, L500.4050 ####[facility] [address] [place], [address] CO2 [Moles/Vol] 27.0 mmol/L Normal 21.0-32.0 [facility] Comment on above: Performed By: #### L 100.0100, L500.4050 ####[facility] [address] [place], [address] Creatinine [Mass/Vol] 1.03 mg/dL High 0.55-1.02 [facility] Comment on above: Result Comment: The validity of the calculated GFR GFRAA in patients over 70 years has not been determined. Clinical correlation is essential. Performed By: #### L 100.0100, L500.4050 ####[facility] [address] [place], [address] ECRCL 80.22 ml/min Normal [facility] Comment on above: Performed By: #### L 100.0100, L500.4050 ####[facility] [address] [place], [address] EST GFR - AA 69 mL/min Normal >60 [facility] Comment on above: Result Comment: Afri can Cypriot GFR Calc Performed By: #### L 100.0100, L500.4050 ####[facility] [address] [place], [address] GAP 6 Normal 5-15 [facility] Comment on above: Performed By: #### L 100.0100, L500.4050 ####[facility] [address] [place], [address] GFR/1.73 sq M.predicted among non-blacks MDRD (S/P/Bld) [Vol rate/Area] 57 mL/min/{1.73_m2} Low >60 [facility] Comment on above: Result Comment: Non- GFR Calc Performed By: #### L 100.0100, L500.4050 ####[facility] [address] [place], [address] Globulin (S) [Mass/Vol] 4.3 g/dL High 2.2-4.2 [facility] Comment on above: Performed By: #### L 100.0100, L500.4050 ####[facility] [address] [place], [address] Glucose [Mass/Vol] 141 mg/dL High 74-106 [facility] Comment on above: Result Comment: Fast ing Glucose result greater than or equal to 126 mg/dL suggests DIABETES MELLITUS per A.D.A. criteria. Performed By: #### L 100.0100, L500.4050 ####[facility] [address] [place], [address] Potassium [Moles/Vol] 4.1 mmol/L Normal 3.5-5.1 [facility] Comment on above: Performed By: #### L 100.0100, L500.4050 ####[facility] [address] [place], [address] Sodium [Moles/Vol] 138 mmol/L Normal 136-145 [facility] Comment on above: Performed By: #### L 100.0100, L500.4050 ####[facility] [address] [place], [address] T PROT 7.3 g/dL Normal 6.4-8.2 [facility] Comment on above: Performed By: #### L 100.0100, L500.4050 ####[facility] [address] [place], [address] Urea nitrogen [Mass/Vol] 21 mg/dL High 7-18 [facility] Comment on above: Performed By: #### L 100.0100, L500.4050 ####[facility] [address] [place], [address] Emergency Department Summary on 12-10-2023 Emergency Department Summary [facility] Medical Records Department [address] [place] [address] Emergency Department Summary 12/10/23 MR#: [id number] Acct: [id number] Name: GLORIA RODRIGUEZ Rep #: [id number] : 1955 67 From: Jake Montalvo DO [...] has been taking acetaminophen with no relief. [facility] Medical History Pneumonia Cough Anxiety [...] OF REACTION (more content not included)... Normal [facility] Urinalysis, Completeon 12-09 BACTERIA 1+ /hpf Normal None Seen [facility] Comment on above: Order Comment: CLEAN CATCH Performed By: #### L 400.0001 #### [facility] Laboratory [address] [place], [place], [id number] EPI,SQUAMOUS 0-5 SEEN Normal 5-10 [facility] Comment on above: Order Comment: CLEAN CATCH Performed By: #### L 400.0001 #### [facility] [address] [place], [address] WBC 10-25 SEEN Normal 0-5 [facility] Comment on above: Order Comment: CLEAN CATCH Performed By: #### L 400.0001 #### [facility] [address] [place], [address] BILIRUBIN URINE Negative Normal Negative [facility] Comment on above: Order Comment: CLEAN CATCH Performed By: #### L 400.0001 #### [facility] [address] [place], [address] Clarity (U) Clear Normal Clear [facility] Comment on above: Order Comment: CLEAN CATCH Performed By: #### L 400.0001 #### [facility] [address] [place], [address] Color (U) Yellow Normal Yellow [facility] Comment on above: Order Comment: CLEAN CATCH Performed By: #### L 400.0001 #### [facility] [address] [place], [address] GLUCOSE, UR Normal Normal Normal [facility] Comment on above: Order Comment: CLEAN CATCH Performed By: #### L 400.0001 #### [facility] [address] [place], [address] KETONE UR Negative Normal Negative [facility] Comment on above: Order Comment: CLEAN CATCH Performed By: #### L 400.0001 #### [facility] [address] [place], [address] LEUK ESTERASE 100 /ul Abnormal Negative [facility] Comment on above: Order Comment: CLEAN CATCH Performed By: #### L 400.0001 #### [facility] [address] [place], [address] Nitrite Ql (U) Negative Normal Negative [facility] Comment on above: Order Comment: CLEAN CATCH Performed By: #### L 400.0001 #### [facility] [address] [place], [address] OCCULT BLOOD-UR Negative Normal Negative [facility] Comment on above: Order Comment: CLEAN CATCH Performed By: #### L 400.0001 #### [facility] [address] [place], [address] pH UR 6.5 Normal 5.0 - 8.0 [facility] Comment on above: Order Comment: CLEAN CATCH Performed By: #### L 400.0001 #### [facility] [address] [place], [address] PROT DIPSTX 15 mg/dl Abnormal Negative [facility] Comment on above: Order Comment: CLEAN CATCH Performed By: #### L 400.0001 #### [facility] [address] [place], [address] SP.GR. DIPSTX 1.010 Normal 1.002-1.030 [facility] Comment on above: Order Comment: CLEAN CATCH Performed By: #### L 400.0001 #### [facility] [address] [place], [address] UROBILI Normal Normal Normal [facility] Comment on above: Order Comment: CLEAN CATCH Performed By: #### L 400.0001 #### [facility] [address] [place], [address] Mucus Ql (Urine sed) 0 SEEN Normal [facility] Comment on above: Order Comment: CLEAN CATCH Performed By: #### L 400.0001 #### [facility] [address] [place], [address] RBC 0 SEEN Normal 0-5 [facility] Comment on above: Order Comment: CLEAN CATCH Performed By: #### L 400.0001 #### [facility] [address] [place], [address] .Auto Diffon 12-06-2023 Basophil, Absolute 0.1 10 3/mcL Normal 0.0-0.2 [facility] ([place]) Comment on above: Performed By: #### V IDH, CBC, LIPID, ANEU, FT4, CMP, TSH, GFR, ADIFF, A1C, FT3 ####[address] [address] [place], [place] [address] Basophils/100 WBC (Bld) 0.7 % Normal 0.0-2.5 [facility] ([place]) Comment on above: Performed By: #### V IDH, CBC, LIPID, ANEU, FT4, CMP, TSH, GFR, ADIFF, A1C, FT3 ####[facility] [address] [place], [place] [address] Eosinophil, Absolute 0.5 10 3/mcL High 0.0-0.4 Replaced by [facility] ([place]) Comment on above: Performed By: #### V IDH, CBC, LIPID, ANEU, FT4, CMP, TSH, GFR, ADIFF, A1C, FT3 ####[facility] [address] [place], [place] [address] Eosinophils/100 WBC (Bld) 6.6 % Normal 0.0-7.0 [facility] ([place] Comment on above: Performed By: #### V IDH, CBC, LIPID, ANEU, FT4, CMP, TSH, GFR, ADIFF, A1C, FT3 ####[facility] [address] [place], [place] [address] Lymphocyte, Absolute 2.6 10 3/mcL Normal 0.8-3.9 Replaced by [facility] ([place] Comment on above: Performed By: #### V IDH, CBC, LIPID, ANEU, FT4, CMP, TSH, GFR, ADIFF, A1C, FT3 ####[facility] [address] [place], [place] [address] Lymphocytes/100 WBC (Bld) 34.8 % Normal 10.0-50.0 [facility] ([place] Comment on above: Performed By: #### V IDH, CBC, LIPID, ANEU, FT4, CMP, TSH, GFR, ADIFF, A1C, FT3 ####[facility] [address] [place], [place] [address] Monocyte, Absolute 0.6 10 3/mcL Normal 0.2-1.0 [facility] ([place] Comment on above: Performed By: #### V IDH, CBC, LIPID, ANEU, FT4, CMP, TSH, GFR, ADIFF, A1C, FT3 ####[address] [place], [place] [address] Monocytes/100 WBC (Bld) 7.6 % Normal 1.7-13.0 [facility] ([place] Comment on above: Performed By: #### V IDH, CBC, LIPID, ANEU, FT4, CMP, TSH, GFR, ADIFF, A1C, FT3 ####[address] [place], [place] [address] Neutrophils/100 WBC (Bld) 50.3 % Normal 37.0-80.0 [facility] ([place] Comment on above: Performed By: #### V IDH, CBC, LIPID, ANEU, FT4, CMP, TSH, GFR, ADIFF, A1C, FT3 ####[address] [address] [place], [place] [address] .GFRon 12-06-2023 GFR Non- 45 ml/min/1.73sqm Normal [facility] ([place]) Comment on above: Result Comment: GFR Population [...] CMP, TSH, GFR, ADIFF, A1C, FT3 ####[address] [place], [place] [address] GFR 54 ml/min/1.73sqm Normal [facility] ([place] Comment on above: Result Comment: GFR Population [...] FT4, CMP, TSH, GFR, ADIFF, A1C, FT3 ####[facility] [address] [place], [place] [address] .NEUABSon 12-06-2023 Neutrophil, Absolute 3.8 10 3/mcL Normal 2.9-6.2 Replaced by [facility] ([place] Comment on above: Performed By: #### V IDH, CBC, LIPID, ANEU, FT4, CMP, TSH, GFR, ADIFF, A1C, FT3 ####[facility] [address] [place], [place] [address] A1Con 12-06-2023 Glucose [Mass/Vol] 143 mg/dL Normal [facility] ([place] Comment on above: Result Comment: Ly mated Average Glucose calculated by equation ((28.7xA1C)-46.7) Estimated average glucose (eAG) is a calculated value from Hemoglobin A1C and is new accounts banking representative of the average blood glucose level in the last 2-3 month period. Normal range: less than 114 mg/dL Performed By: #### V IDH, CBC, LIPID, ANEU, FT4, CMP, TSH, GFR, ADIFF, A1C, FT3 ####[facility] [address] [place], [place] [address] HbA1c (Bld) [Mass fraction] 6.6 % High 4.3-6.4 [facility] ([place]) Comment on above: Performed By: #### V IDH, CBC, LIPID, ANEU, FT4, CMP, TSH, GFR, ADIFF, A1C, FT3 ####[address] [place], [place] [address] CBCon 12-06-2023 Erythrocyte distribution width (RBC) [Ratio] 15.0 % High 11.5-14.5 [facility] ([place]) Comment on above: Performed By: #### V IDH, CBC, LIPID, ANEU, FT4, CMP, TSH, GFR, ADIFF, A1C, FT3 ####[address] [place], [place] [address] Hematocrit (Bld) [Volume fraction] 37.9 % Normal 37.0-47.0 [facility] ([place] Comment on above: Performed By: #### V IDH, CBC, LIPID, ANEU, FT4, CMP, TSH, GFR, ADIFF, A1C, FT3 ####[address] [place], [place] [address] Hgb 13.0 G/dL Normal 12.0-16.0 [facility] ([place] Comment on above: Performed By: #### V IDH, CBC, LIPID, ANEU, FT4, CMP, TSH, GFR, ADIFF, A1C, FT3 ####[address] [place], [place] [address] MCH (RBC) [Entitic mass] 32.1 pg High 27.0-31.2 [facility] ([place] Comment on above: Performed By: #### V IDH, CBC, LIPID, ANEU, FT4, CMP, TSH, GFR, ADIFF, A1C, FT3 ####[address] [place], [place] [address] MCHC 34.2 G/dL Normal 33.0-37.0 [facility] ([place] Comment on above: Performed By: #### V IDH, CBC, LIPID, ANEU, FT4, CMP, TSH, GFR, ADIFF, A1C, FT3 ####[address] [place], [place] [address] MCV (RBC) [Entitic vol] 93.7 fL Normal 80.0-94.0 [facility] ([place] Comment on above: Performed By: #### V IDH, CBC, LIPID, ANEU, FT4, CMP, TSH, GFR, ADIFF, A1C, FT3 ####[address] [place], [place] [address] Platelet 169 10 3/mcL Normal 130-400 [facility] ([place]) Comment on above: Performed By: #### V IDH, CBC, LIPID, ANEU, FT4, CMP, TSH, GFR, ADIFF, A1C, FT3 ####[address] [place], [place] [address] Platelet mean volume (Bld) [Entitic vol] 8.6 fL Normal 7.4-10.4 [facility] ([place]) Comment on above: Performed By: #### V IDH, CBC, LIPID, ANEU, FT4, CMP, TSH, GFR, ADIFF, A1C, FT3 ####[address] [place], [place] [address] RBC 4.05 10 6/mcL Low 4.20-5.40 [facility] ([place]) Comment on above: Performed By: #### V IDH, CBC, LIPID, ANEU, FT4, CMP, TSH, GFR, ADIFF, A1C, FT3 ####[address] [place], [place] [address] WBC 7.5 10 3/mcL Normal 4.6-10.8 [facility] ([place]) Comment on above: Performed By: #### V IDH, CBC, LIPID, ANEU, FT4, CMP, TSH, GFR, ADIFF, A1C, FT3 ####[address] [place], [place] [address] CMPon 12-06-2023 Albumin Level 3.2 G/dL Low 3.4-4.8 [facility] ([place]) Comment on above: Performed By: #### V IDH, CBC, LIPID, ANEU, FT4, CMP, TSH, GFR, ADIFF, A1C, FT3 ####[address] [place], [place] [address] Albumin/Globulin [Mass ratio] 0.8 {ratio} Low 1.1-2.5 [facility] ([place]) Comment on above: Performed By: #### V IDH, CBC, LIPID, ANEU, FT4, CMP, TSH, GFR, ADIFF, A1C, FT3 ####[address] [place], [place] [address] ALP [Catalytic activity/Vol] 85 U/L Normal 40-135 [facility] ([place]) Comment on above: Performed By: #### V IDH, CBC, LIPID, ANEU, FT4, CMP, TSH, GFR, ADIFF, A1C, FT3 ####[address] [place], [place] [address] ALT [Catalytic activity/Vol] 50 U/L Normal 14-59 [facility] ([place] Comment on above: Performed By: #### V IDH, CBC, LIPID, ANEU, FT4, CMP, TSH, GFR, ADIFF, A1C, FT3 ####[address] [place], [place] [address] AST [Catalytic activity/Vol] 53 U/L High 10-40 [facility] ([place] Comment on above: Performed By: #### V IDH, CBC, LIPID, ANEU, FT4, CMP, TSH, GFR, ADIFF, A1C, FT3 ####[address] [place], [place] [address] Bili Total 0.7 mg/dL Normal 0.2-1.0 [facility] ([place] Comment on above: Result Comment: Use of this assay is not recommended for patients undergoing treatment with eltrombopag due to the potential for falsely elevated results. Performed By: #### V IDH, CBC, LIPID, ANEU, FT4, CMP, TSH, GFR, ADIFF, A1C, FT3 ####[address] [place], [place] [address] BUN/Creatinine Ratio 18 ratio Normal 7-27 [facility] ([place]) Comment on above: Performed By: #### V IDH, CBC, LIPID, ANEU, FT4, CMP, TSH, GFR, ADIFF, A1C, FT3 ####[address] [place], [place] [address] Calcium [Mass/Vol] 9.9 mg/dL Normal 8.4-10.2 [facility] [place] Comment on above: Performed By: #### V IDH, CBC, LIPID, ANEU, FT4, CMP, TSH, GFR, ADIFF, A1C, FT3 ####[address] [place], [place] [address] Chloride [Moles/Vol] 101 mmol/L Normal 98-107 [facility] ([place] Comment on above: Performed By: #### V IDH, CBC, LIPID, ANEU, FT4, CMP, TSH, GFR, ADIFF, A1C, FT3 ####[address] [place], [place] [address] CO2 [Moles/Vol] 30 mmol/L Normal 23-31 [facility] ([place]) Comment on above: Performed By: #### V IDH, CBC, LIPID, ANEU, FT4, CMP, TSH, GFR, ADIFF, A1C, FT3 ####[address] [place], [place] [address] Creatinine [Mass/Vol] 1.20 mg/dL High 0.55-1.02 [facility] ([place]) Comment on above: Performed By: #### V IDH, CBC, LIPID, ANEU, FT4, CMP, TSH, GFR, ADIFF, A1C, FT3 ####[address] [place], [place] [address] Electrolyte Balance 7.0 mEq/L Normal 4.0-15.0 [facility] ([place]) Comment on above: Performed By: #### V IDH, CBC, LIPID, ANEU, FT4, CMP, TSH, GFR, ADIFF, A1C, FT3 ####[address] [place], [place] [address] Globulin 3.9 G/dL Normal [facility] ([place]) Comment on above: Performed By: #### V IDH, CBC, LIPID, ANEU, FT4, CMP, TSH, GFR, ADIFF, A1C, FT3 ####[address] [place], [place] [address] Glucose [Mass/Vol] 162 mg/dL High 80-115 [facility] [place] Comment on above: Performed By: #### V IDH, CBC, LIPID, ANEU, FT4, CMP, TSH, GFR, ADIFF, A1C, FT3 ####[address] [place], [place] [address] Potassium [Moles/Vol] 4.3 mmol/L Normal 3.5-5.1 [facility] ([place] Comment on above: Performed By: #### V IDH, CBC, LIPID, ANEU, FT4, CMP, TSH, GFR, ADIFF, A1C, FT3 ####[address] [place], [place] [address] Sodium [Moles/Vol] 138 mmol/L Normal 136-145 [facility] [place] Comment on above: Performed By: #### V IDH, CBC, LIPID, ANEU, FT4, CMP, TSH, GFR, ADIFF, A1C, FT3 ####[address] [place], [place] [address] Total Protein 7.1 G/dL Normal 6.4-8.2 [facility] ([place]) Comment on above: Performed By: #### V IDH, CBC, LIPID, ANEU, FT4, CMP, TSH, GFR, ADIFF, A1C, FT3 ####[address] [place], [place] [address] Urea nitrogen [Mass/Vol] 22 mg/dL High 7-18 [facility] ([place] Comment on above: Performed By: #### V IDH, CBC, LIPID, ANEU, FT4, CMP, TSH, GFR, ADIFF, A1C, FT3 ####[address] [place], [place] [address] FT3on 12-06-2023 Free T3 [Mass/Vol] 2.52 pg/mL Normal 2.30-4.00 [facility] [place] Comment on above: Performed By: #### V IDH, CBC, LIPID, ANEU, FT4, CMP, TSH, GFR, ADIFF, A1C, FT3 ####[address] [place], [place] [address] FT4on 12-06-2023 Free T4 [Mass/Vol] 1.07 ng/dL Normal 0.76-1.46 [facility] [place] Comment on above: Performed By: #### V IDH, CBC, LIPID, ANEU, FT4, CMP, TSH, GFR, ADIFF, A1C, FT3 ####[address] [place], [place] [address] LIPIDon 12-06-2023 Cholesterol [Mass/Vol] 99 mg/dL Normal 0-200 [facility] ([place]) Comment on above: Result Comment: Chol esterol Reference Interval: Less than 200 Desirable 200-239 Borderline high risk 240 and above High risk Performed By: #### V IDH, CBC, LIPID, ANEU, FT4, CMP, TSH, GFR, ADIFF, A1C, FT3 ####[address] [place], [place] [address] Cholesterol in HDL [Mass/Vol] 37 mg/dL Low 40-60 [facility] ([place]) Comment on above: Performed By: #### V IDH, CBC, LIPID, ANEU, FT4, CMP, TSH, GFR, ADIFF, A1C, FT3 ####[address] [place], [place] [address] Cholesterol in LDL [Mass/Vol] 6 mg/dL Normal 0-130 [facility] ([place]) Comment on above: Performed By: #### V IDH, CBC, LIPID, ANEU, FT4, CMP, TSH, GFR, ADIFF, A1C, FT3 ####[address] [place], [place] [address] Triglyceride [Mass/Vol] 282 mg/dL High 0-150 [facility] ([place]) Comment on above: Result Comment: Trig lyceride Reference Interval: Less than 150 Normal 150-199 Borderline high risk 200-499 High risk 500 or higher Very high risk Performed By: #### V IDH, CBC, LIPID, ANEU, FT4, CMP, TSH, GFR, ADIFF, A1C, FT3 ####[address] [place], [place] [address] TSHon 12-06-2023 TSH Qn 0.87 m[IU]/L Normal 0.36-3.74 [facility] ([place]) Comment on above: Performed By: #### V IDH, CBC, LIPID, ANEU, FT4, CMP, TSH, GFR, ADIFF, A1C, FT3 ####[address] [place], [place] [address] VIDHon 12-06-2023 Vit. D 25-Hydroxy 27.4 ng/mL Normal [facility] ([place]) Comment on above: Result Comment: Inte rpretive Values Based on Total 25([place]) Vitamin D: Deficient <20 ng/mL Insufficient 20 - <30 ng/mL Sufficient 30-100 ng/mL Performed By: #### V IDH, CBC, LIPID, ANEU, FT4, CMP, TSH, GFR, ADIFF, A1C, FT3 ####[address] [place], [place] [address] XR SPINE LUMBOSACRAL 2 OR 3 VIEWSon [...] 12/06/2023 10:18:09 AM Ordering Provider: CAIN Moss [facility]) Abdomen/Pelvis WITH Contrast on 11-22-2023 Abdomen/Pelvis WITH Contrast [facility] Imaging Services [address] [place] [address] Abdomen/Pelvis WITH Contrast MR#: [id number] Acct: [id number] Name: GLORIA RODRIGUEZ Rep #: [id number] : 1955 F 67 From: Tima du MD PCP: Dr. Agnes Hernandez DO Status: REG CLI Study: Abdomen/Pelvis WITH Contrast Date of Exam: 10/09 Exam# [id number] Ordering Dr: Ean Alfonso DO [id number] STUDY: CT ABDOMEN AND PELVIS WITH CONTRAST [...] Agnes Hernandez, DO; Dr. Ean Alfonso DO Immigration Paralegal: Signed Normal [facility] Oncology Visit Reporton Oncology Visit Report [facility] [address] [place] [address] OFFICE VISIT Date of Service: 11/22/23 1403 MR#: [id number] Acct: [id number] Name: GLORIA RODRIGUEZ Rep #: [id number] : 1955 From: Kentrell Dean MD Age/Sex: 67/F Location: [facility] Status: Signed HPI Subjective Date of Service [...] 1.5 cm. Lymph nodes, 02/26, were negative. ER/WI positive, HER2 negative by FISH, stage I [...] small nodules. She is on observation. Her clinical social worker found out that she had a high chromogranin A level 868 on 02/03/2023 and also has loose stools. CT a/p done on 03/16/2023 showed 7mm RLL nodule, no evidence of metastatic. Chromogranin A was 1158 on . Had Dotatate PET/CT done on 05/18/2023 was negative. She is on observation and comes for follow up. She has had black stools for the last week. [facility] Medical History Pneumonia Cough Anxiety disorder, unspecified [...] Maria Luisa (more content not included)... Normal [facility] Stool Occult Blood iFOBon STOB Negative Normal [facility] Comment on above: Performed By: #### M 100.7900 #### [facility] [address] [place], [address] LYNN + Protein Elect, Serumon 11-19-2023 Albumin [Mass/Vol] 3.3 g/dL Normal 2.9-4.4 [facility] Comment on above: Order Comment: Test( s) 209478-Kvsbzgbke, Serum was developed and its performance characteristics determined by [employer]. It has not been cleared or approved by the Food and Drug Administration. N Performed By: #### L 3100.3425, L3100.4810, L3800.1800 #### [facility] [address] [place], [address] Albumin/Globulin [Mass ratio] 1.1 {ratio} Normal 0.7-1.7 [facility] Comment on above: Order Comment: Test( s) 524079-Ctkrxfkvo, Serum was developed and its performance characteristics determined by [facility]. It has not been cleared or approved by the Food and Drug Administration. N Performed By: #### L 3100.3425, L3100.4810, L3800.1800 #### [facility] [address] [place], [address] KMSYU-6-OBWW 0.2 g/dL Normal 0.0-0.4 [facility] Comment on above: Order Comment: Test( s) 242098-Bgbmkybuy, Serum was developed and its performance characteristics determined by [facility]. It has not been cleared or approved by the Food and Drug Administration. N Performed By: #### L 3100.3425, L3100.4810, L3800.1800 #### [facility] [address] [place], [address] TEFVJ-3-REAF 0.9 g/dL Normal 0.4-1.0 [facility] Comment on above: Order Comment: Test( s) 506307-Okhmitqnf, Serum was developed and its performance characteristics determined by [facility]. It has not been cleared or approved by the Food and Drug Administration. N Performed By: #### L 3100.3425, L3100.4810, L3800.1800 #### [facility] [address] [place], [address] BETA GLOBULIN 1.2 g/dL Normal 0.7-1.3 [facility] Comment on above: Order Comment: Test( s) 681288-Lridjbntt, Serum was developed and its performance characteristics determined by [facility]. It has not been cleared or approved by the Food and Drug Administration. N Performed By: #### L 3100.3425, L3100.4810, L3800.1800 #### [facility] [address] [facility] [place], [place], [id number] GAMMA GLOBULIN 0.9 g/dL Normal 0.4-1.8 [facility] Comment on above: Order Comment: Test( s) 762253-Uhcuzolsd, Serum was developed and its performance characteristics determined by [facility]. It has not been cleared or approved by the Food and Drug Administration. N Performed By: #### L 3100.3425, L3100.4810, L3800.1800 #### [facility] [address] [place], [place], [address] Globulin (S) [Mass/Vol] 3.2 g/dL Normal 2.2-3.9 [facility] Comment on above: Order Comment: Test( s) 503312-Xbbdcdyrx, Serum was developed and its performance characteristics determined by [facility]. It has not been cleared or approved by the Food and Drug Administration. N Performed By: #### L 3100.3425, L3100.4810, L3800.1800 #### [facility] [address] [place], [place], [address] LYNN RESULT,S Comment Abnormal . [facility] Comment on above: Order Comment: Test( s) 330543-Fqjalgqmq, Serum was developed and its performance characteristics determined by [facility]. It has not been cleared or approved by the Food and Drug Administration. 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 PLEASE NOTE: Samples from patients receiving DARZALEX(R) (daratumumab) or SARCLISA(R)(isatuximab-[facility]) treatment can appear as an IgG kappa and mask a complete response (CR). If this patient is receiving these therapies, this LYNN assay interference can be removed by ordering test number [id number]-Yhbuetuuldciql, Daratumumab-Specific, Serum or 761308-Tzuuydpqiwobnb, Isatuximab-Specific, Serum and submitting a new sample for testing or by calling the lab to add this test to the current sample. Performed By: #### L 3100.3425, L3100.4810, L3800.1800 #### [facility] [address] [place], [place], [id number] [phone] IMMUNOGLOB A QN 519 mg/dL High 87-352 [facility] Comment on above: Order Comment: Test( s) 541730-Gkoehvmhj, Serum was developed and its performance characteristics determined by [facility]. It has not been cleared or approved by the Food and Drug Administration. N Performed By: #### L 3100.3425, L3100.4810, L3800.1800 #### [facility] [address] [place], [address] IMMUNOGLOB G QN 946 mg/dL Normal 586-1602 [facility] Comment on above: Order Comment: Test( s) 378978-Iyaltmhvu, Serum was developed and its performance characteristics determined by [facility]. It has not been cleared or approved by the Food and Drug Administration. N Performed By: #### L 3100.3425, L3100.4810, L3800.1800 #### [facility] [address] [place], [address] IMMUNOGLOB M QN 30 mg/dL Normal 26-217 [facility] Comment on above: Order Comment: Test( s) 787215-Irjtsxgym, Serum was developed and its performance characteristics determined by [facility]. It has not been cleared or approved by the Food and Drug Administration. N Performed By: #### L 3100.3425, L3100.4810, L3800.1800 #### [facility] [address] [place], [address] M-Baltazar 0.3 g/dL Abnormal Not Observed [facility] Comment on above: Order Comment: Test( s) 210530-Kunvnovmm, Serum was developed and its performance characteristics determined by [facility]. It has not been cleared or approved by the Food and Drug Administration. N Performed By: #### L 3100.3425, L3100.4810, L3800.1800 #### [facility] [address] [place], [address] NOTE: Comment Normal . [facility] Comment on above: Order Comment: Test( s) 058848-Nlucjxfkq, Serum was developed and its performance characteristics determined by [facility]. It has not been cleared or approved by the Food and Drug Administration. N Result Comment: Prot ein electrophoresis scan will follow via computer, mail, or storeroom keeper delivery. Performed By: #### L 3100.3425, L3100.4810, L3800.1800 #### [facility] [address] [place], [address] Protein [Mass/Vol] 6.5 g/dL Normal 6.0-8.5 [facility] Comment on above: Order Comment: Test( s) 150688-Ypdeufzjf, Serum was developed and its performance characteristics determined by [facility]. It has not been cleared or approved by the Food and Drug Administration. N Performed By: #### L 3100.3425, L3100.4810, L3800.1800 #### [facility] [address] [place], [address] L3100.4810on 4 Chromogranin A 1553.0 ng/mL Abnormal 0.0-101.8 [facility] Comment on above: Order Comment: Test( s) 601204-Cfspzdnwj, Serum was developed and its performance characteristics determined by [facility]. It has not been cleared or approved by the Food and Drug Administration. N Result Comment: Electrotyper Helper mogranin A performed by [employer]RY[employer] methodology Values obtained with different assay methods or kits cannot be used interchangeably. Performed By: #### L 3100.3425, L3100.4810, L3800.1800 #### [facility] [address] [place], [address] Serotonin, Serumon 4 SEROTONIN,SERUM 13 ng/mL Normal 8-217 [facility] Comment on above: Order Comment: Test( s) 216542-Bkioqwiae, Serum was developed and its performance characteristics determined by [facility]. It has not been cleared or approved by the Food and Drug Administration. N Result Comment: Perf ormed at: - [address] [id number] Curbing Stonecutter: Leodan Savage PhD, Phone: [phone] Performed at: [facility] [id number] Curbing Stonecutter: Francy Blanco MD, Phone: [phone] Performed By: #### L 3100.3425, L3100.4810, L3800.1800 #### [facility] [address] [place], [address] Immunoglobulins G/A/Mon 08-0 IMMUNOGLOB A QN 508 mg/dL High 87-352 [facility] Comment on above: Order Comment: N Performed By: #### L 3130.0010, L504.2610, L500.4050, L3200.1200, L100.0100 ####[facility] [address] [place], [address] IMMUNOGLOB G QN 957 mg/dL Normal 586-1602 [facility] Comment on above: Order Comment: N Performed By: #### L 3130.0010, L504.2610, L500.4050, L3200.1200, L100.0100 ####[facility] [address] [place], [address] IMMUNOGLOB M QN 32 mg/dL Normal 26-217 [facility] Comment on above: Order Comment: N Performed By: #### L 3130.0010, L504.2610, L500.4050, L3200.1200, L100.0100 ####[facility] [address] [place], [address] [place] Lambda Light Chainson 11-17-2023 FR KAPPA LT CHN 45.2 mg/L Abnormal 3.3-19.4 [facility] Comment on above: Order Comment: N Performed By: #### L 3130.0010, L504.2610, L500.4050, L3200.1200, L100.0100 ####[facility] [address] [place], [address] FR LAMBDA LT CH 51.5 mg/L Abnormal 5.7-26.3 [facility] Comment on above: Order Comment: N Performed By: #### L 3130.0010, L504.2610, L500.4050, L3200.1200, L100.0100 ####[facility] [address] [place], [address] KAPPA/LAMBDA % 0.88 Normal 0.26-1.65 [facility] Comment on above: Order Comment: N Result Comment: Perf ormed at: [facility] [address] [id number] Curbing Stonecutter: Leodan Savage PhD, Phone: [phone] Performed By: #### L 3130.0010, L504.2610, L500.4050, L3200.1200, L100.0100 ####[facility] [address] [place], [address] CBC W/Diff, Automatedon 07-3 0-2024 Absolute Lymph 1.80 X10 3/uL Normal 0.83-4.51 [facility] Comment on above: Performed By: #### L 3130.0010, L504.2610, L500.4050, L3200.1200, L100.0100 ####[facility] [address] [place], [address] Absolute Neut 4.5 X10 3/uL Normal 2.0-7.7 [facility] Comment on above: Performed By: #### L 3130.0010, L504.2610, L500.4050, L3200.1200, L100.0100 ####[facility] [address] [place], [address] Basophils/100 WBC (Bld) 0.3 % Normal 0-1 [facility] Comment on above: Performed By: #### L 3130.0010, L504.2610, L500.4050, L3200.1200, L100.0100 ####[facility] [address] [place], [address] Eosinophils/100 WBC (Bld) 1.6 % Normal 0-5 [facility] Comment on above: Performed By: #### L 3130.0010, L504.2610, L500.4050, L3200.1200, L100.0100 ####[facility] [address] [place], [address] Erythrocyte distribution width (RBC) [Ratio] 13.7 % Normal 11.6-14.6 [facility] Comment on above: Performed By: #### L 3130.0010, L504.2610, L500.4050, L3200.1200, L100.0100 ####[facility] [address] [place], [address] Hematocrit (Bld) [Volume fraction] 36.1 % Low 37-47 [facility] Comment on above: Performed By: #### L 3130.0010, L504.2610, L500.4050, L3200.1200, L100.0100 ####[facility] [address] [place], [address] Hemoglobin (Bld) [Mass/Vol] 12.5 g/dL Normal 12.0-15.0 [facility] Comment on above: Performed By: #### L 3130.0010, L504.2610, L500.4050, L3200.1200, L100.0100 ####[facility] [address] [place], [address] IG% 0.300 Normal 0.0-0.9 [facility] Comment on above: Result Comment: IG% - Immature Granulocytes (promyelocytes, myelocytes and metamyelocytes) > 1% indicates that a LEFT SHIFT is Present. Performed By: #### L 3130.0010, L504.2610, L500.4050, L3200.1200, L100.0100 ####[facility] [address] [place], [address] Lymphocytes/100 WBC (Bld) 26.0 % Normal 19-41 [facility] Comment on above: Performed By: #### L 3130.0010, L504.2610, L500.4050, L3200.1200, L100.0100 ####[facility] [address] [place], [address] MCH (RBC) [Entitic mass] 31.3 pg Normal 27.0-32.0 [facility] Comment on above: Performed By: #### L 3130.0010, L504.2610, L500.4050, L3200.1200, L100.0100 ####[facility] [address] [place], [address] MCHC (RBC) [Mass/Vol] 34.6 g/dL Normal 32-36 [facility] Comment on above: Performed By: #### L 3130.0010, L504.2610, L500.4050, L3200.1200, L100.0100 ####[facility] [address] [place], [address] MCV (RBC) [Entitic vol] 90.3 fL Normal 81-99 [facility] Comment on above: Performed By: #### L 3130.0010, L504.2610, L500.4050, L3200.1200, L100.0100 ####[facility] [address] [place], [address] Monocytes/100 WBC (Bld) 6.5 % Normal 0-10 [facility] Comment on above: Performed By: #### L 3130.0010, L504.2610, L500.4050, L3200.1200, L100.0100 ####[facility] [address] [place], [address] Neutrophils/100 WBC (Bld) 65.3 % Normal 47-70 [facility] Comment on above: Performed By: #### L 3130.0010, L504.2610, L500.4050, L3200.1200, L100.0100 ####[facility] [address] [place], [address] Nucleated RBC (Bld) [#/Vol] 0 10*3/uL Normal 0-5 [facility] Comment on above: Performed By: #### L 3130.0010, L504.2610, L500.4050, L3200.1200, L100.0100 ####[facility] [address] [place], [address] Platelet mean volume (Bld) [Entitic vol] 10.3 fL Normal 6.2-12.0 [facility] Comment on above: Performed By: #### L 3130.0010, L504.2610, L500.4050, L3200.1200, L100.0100 ####[facility] [address] [place], [address] Platelets (Bld) [#/Vol] 120 10*3/uL Low 150-450 [facility] Comment on above: Performed By: #### L 3130.0010, L504.2610, L500.4050, L3200.1200, L100.0100 ####[facility] [address] [place], [address] RBC (Bld) [#/Vol] 4.00 10*6/uL Low 4.2-5.4 [facility] Comment on above: Performed By: #### L 3130.0010, L504.2610, L500.4050, L3200.1200, L100.0100 ####[facility] [address] [place], [address] RDW SD 44.9 fl High 35.1-43.9 [facility] Comment on above: Performed By: #### L 3130.0010, L504.2610, L500.4050, L3200.1200, L100.0100 ####[facility] [address] [place], [address] WBC (Bld) [#/Vol] 6.9 10*3/uL Normal 4.4-11.0 [facility] Comment on above: Performed By: #### L 3130.0010, L504.2610, L500.4050, L3200.1200, L100.0100 ####[facility] [address] [place], [address] Comprehensive Metabolic Prof [facility] 11-15-2023 Albumin [Mass/Vol] 3.0 g/dL Low 3.2-5.0 [facility] Comment on above: Order Comment: 1 Performed By: #### L 3130.0010, L504.2610, L500.4050, L3200.1200, L100.0100 ####[facility] [address] [place], [address] Albumin/Globulin [Mass ratio] 0.8 {ratio} Low 0.9-2.4 [facility] Comment on above: Order Comment: 1 Performed By: #### L 3130.0010, L504.2610, L500.4050, L3200.1200, L100.0100 ####[facility] [address] [place], [address] ALK P 82 U/L Normal 45-117 [facility] Comment on above: Order Comment: 1 Performed By: #### L 3130.0010, L504.2610, L500.4050, L3200.1200, L100.0100 ####[facility] [address] [place], [address] ALT [Catalytic activity/Vol] 68 U/L High 13-56 [facility] Comment on above: Order Comment: 1 Performed By: #### L 3130.0010, L504.2610, L500.4050, L3200.1200, L100.0100 ####[facility] [address] [place], [address] AST [Catalytic activity/Vol] 59 U/L High 15-37 [facility] Comment on above: Order Comment: 1 Performed By: #### L 3130.0010, L504.2610, L500.4050, L3200.1200, L100.0100 ####[facility] [address] [place], [address] Bilirubin [Mass/Vol] 0.70 mg/dL Normal 0.20-1.00 [facility] Comment on above: Order Comment: 1 Result Comment: For patients on eltrombopag therapy, use of Dimension [place] TBIL is not recommended. Performed By: #### L 3130.0010, L504.2610, L500.4050, L3200.1200, L100.0100 ####[facility] [address] [place], [address] BUN/CRE 31.0 RATIO High 10-20 [facility] Comment on above: Order Comment: 1 Performed By: #### L 3130.0010, L504.2610, L500.4050, L3200.1200, L100.0100 ####[facility] [address] [place], [address] CA,Total 10.1 mg/dL Normal 8.5-10.1 [facility] Comment on above: Order Comment: 1 Performed By: #### L 3130.0010, L504.2610, L500.4050, L3200.1200, L100.0100 ####[facility] [address] [place], [address] Chloride [Moles/Vol] 103 mmol/L Normal 98-107 [facility] Comment on above: Order Comment: 1 Performed By: #### L 3130.0010, L504.2610, L500.4050, L3200.1200, L100.0100 ####[facility] [address] [place], [address] CO2 [Moles/Vol] 26.0 mmol/L Normal 21.0-32.0 [facility] Comment on above: Order Comment: 1 Performed By: #### L 3130.0010, L504.2610, L500.4050, L3200.1200, L100.0100 ####[facility] [address] [place], [address] Creatinine [Mass/Vol] 1.16 mg/dL High 0.55-1.02 [facility] Comment on above: Order Comment: 1 Result Comment: The validity of the calculated GFR GFRAA in patients over 70 years has not been determined. Clinical correlation is essential. Performed By: #### L 3130.0010, L504.2610, L500.4050, L3200.1200, L100.0100 ####[facility] [address] [place], [address] ECRCL 72.28 ml/min Normal [facility] Comment on above: Order Comment: 1 Performed By: #### L 3130.0010, L504.2610, L500.4050, L3200.1200, L100.0100 ####[facility] [address] [place], [address] EST GFR - AA 60 mL/min Normal >60 [facility] Comment on above: Order Comment: 1 Result Comment: Afri can Cypriot GFR Calc Performed By: #### L 3130.0010, L504.2610, L500.4050, L3200.1200, L100.0100 ####[facility] [address] [place], [address] GAP 9 Normal 5-15 [facility] Comment on above: Order Comment: 1 Performed By: #### L 3130.0010, L504.2610, L500.4050, L3200.1200, L100.0100 ####[facility] [address] [place], [address] GFR/1.73 sq M.predicted among non-blacks MDRD (S/P/Bld) [Vol rate/Area] 49 mL/min/{1.73_m2} Low >60 [facility] Comment on above: Order Comment: 1 Result Comment: Non- GFR Calc Performed By: #### L 3130.0010, L504.2610, L500.4050, L3200.1200, L100.0100 ####[facility] [address] [place], [address] Globulin (S) [Mass/Vol] 4.0 g/dL Normal 2.2-4.2 [facility] Comment on above: Order Comment: 1 Performed By: #### L 3130.0010, L504.2610, L500.4050, L3200.1200, L100.0100 ####[facility] [address] [place], [address] Glucose [Mass/Vol] 165 mg/dL High 74-106 [facility] Comment on above: Order Comment: 1 Result Comment: Fast ing Glucose result greater than or equal to 126 mg/dL suggests DIABETES MELLITUS per A.D.A. criteria. Performed By: #### L 3130.0010, L504.2610, L500.4050, L3200.1200, L100.0100 ####[facility] [address] [place], [address] Potassium [Moles/Vol] 4.0 mmol/L Normal 3.5-5.1 [facility] Comment on above: Order Comment: 1 Performed By: #### L 3130.0010, L504.2610, L500.4050, L3200.1200, L100.0100 ####[facility] [address] [place], [address] Sodium [Moles/Vol] 138 mmol/L Normal 136-145 [facility] Comment on above: Order Comment: 1 Performed By: #### L 3130.0010, L504.2610, L500.4050, L3200.1200, L100.0100 ####[facility] [address] [place], [address] T PROT 7.0 g/dL Normal 6.4-8.2 [facility] Comment on above: Order Comment: 1 Performed By: #### L 3130.0010, L504.2610, L500.4050, L3200.1200, L100.0100 ####[facility] [address] [place], [address] Urea nitrogen [Mass/Vol] 36 mg/dL High 7-18 [facility] Comment on above: Order Comment: 1 Performed By: #### L 3130.0010, L504.2610, L500.4050, L3200.1200, L100.0100 ####[facility] [address] [place], [address] LDHon 11-15-2023 LDH 152 U/L Normal 84-246 [facility] Comment on above: Order Comment: 1 Performed By: #### L 3130.0010, L504.2610, L500.4050, L3200.1200, L100.0100 ####[facility] [address] [place], [address] Bedside Glucoseon 10-03-2023 FINGERSTICK GLU 141 mg/dL High 74-106 [facility] Comment on above: Result Comment: ESSENCE PHELPS OF PATIENT CARE PER NURSING PROTOCOL Performed By: #### L 501.080 ####[facility] [address] [place], [address] Fluor Guidance for Spine Inj on 10-03-2023 Fluor Guidance for Spine Inj [facility] Imaging Services [address] [place] [address] Fluor Guidance for Spine Inj MR#: [id number] Acct: [id number] Name: GLORIA RODRIGUEZ Rep #: [id number] : 1955 F 67 From: Ron Mcintosh PCP: Dr. Agnes Hernandez DO Status: [facility] Study: Fluor Guidance for Spine Inj Date of Exam: Exam# [id number] Ordering Dr: Basim Rojas [place] [id number] STUDY: LATERAL VIEW OF THE SACRUM REASON [...] Basim Rojas MD; Dr. Agnes Hernandez DO Immigration Paralegal: Signed [facility] MR/POSTOP.[facility] 10-03-2023 MR/POSTOP.[facility] Medical Records Department [address] [place] [address] Anesthesia Postop Eval I 10/03/23 1124 MR#: [id number] Acct: [id number] Name: GLORIA RODRIGUEZ Rep #: [id number] : 1955 67 From: Tyrone Rodriguez COMPUTERIZED MILL MILL RECORDER PCP: Dr. Agnes Hernandez, DO Status:REG SDC Y Race: C Location: [place] [address] Anesthesia: Postop Eval I Current Vital Signs [...] completed: Yes 10/03/23 1125 Date Tyrone Rodriguez COMPUTERIZED MILL MILL RECORDER Cosigner Signature: Date CC: Signed Normal [facility] MR/[id number] 10-03-2023 [facility] Medical Records Department [address] [place] [address] Anesthesia Postop Eval II 10/03/23 1240 MR#: [id number] Acct: [id number] Name: GLORIA RODRIGUEZ Rep #: [id number] : 1955 67 From: Dameon Kline MD PCP: Dr. Agnes Hernandez, DO Status:REG SDC Y Race: C Location: [place] [address] Anesthesia Postop Eval I Sum Postop Eval Completion status Anesthesia document: Postop Eval 1 completed: Yes Anesthesia Postop Eval I Summary Anesthesia Postop Eval I Summary: Anesthesia Postop Eval I: Assessment Summary Airway patent Yes 10/03/23 11:25 COMPUTERIZED MILL MILL RECORDER.JBLOU Spontaneous unlabored Yes 10/03/23 11:25 COMPUTERIZED MILL MILL RECORDER.JBLOU respirations Mental status Awake,Calm 10/03/23 11:25 COMPUTERIZED MILL MILL RECORDER.JBLOU nausea No 10/03/23 11:25 COMPUTERIZED MILL MILL RECORDER.JBLOU Vomiting No 10/03/23 11:25 COMPUTERIZED MILL MILL RECORDER.JBLOU Anesthesia Postop Eval I: Fluid Summary Crystalloid volume administer 200 10/03/23 11:25 COMPUTERIZED MILL MILL RECORDER.JBLOU (ml) Colloids volume administered ( ml) Blood Product volume administered (ml) Total IV fluid infused 200 10/03/23 11:25 COMPUTERIZED MILL MILL RECORDER.JBLOU Anesthesia Postop Eval I: Summary Notes Anesthesia Complication No 10/03/23 11:25 COMPUTERIZED MILL MILL RECORDER.JBLOU Anesthesia Complication Comment: Post-operative progress note Anesthesia: Postop Eval II Evaluation Mental status: Awake Pain Level: 0 nausea: No Vomiting: No Complications Anesthesia Complication: No 10/03/23 1241 Date Dameon Eliud Clark Signature: Date CC: Signed Normal [facility] Operative Reporton 4 Operative Report [facility] Medical Records Department [address] [place] [address] Operative Report 10/03/23 1133 MR#: [id number] Acct: [id number] Name: GLORIA RODRIGUEZ Rep #: [id number] : 1955 67 From: Basim Rojas MD PCP: Dr. Agnes Hernandez, DO Status:[facility] Location: [place] [address] Report of Operation Date of Procedure: 10/03/23 [...] MD; Dr. Agnes Hernandez DO Signed Normal [facility] .Auto Diffon 07-07-2023 Basophil, Absolute 0.0 10 3/mcL Normal 0.0-0.2 [facility] Comment on above: Performed By: #### T BELTRAN KILGORE, ANEU, BMP, GFR, PBNP, ADIFF, CBC #### [place] [address] [place], [place] [address] Basophils/100 WBC (Bld) 0.3 % Normal 0.0-2.5 [facility] ([place]) Comment on above: Performed By: #### T BELTRAN KILGORE, ANEU, BMP, GFR, PBNP, ADIFF, CBC #### [address] [address] Eosinophil, Absolute 0.2 10 3/mcL Normal 0.0-0.4 Replaced by [facility] ([place]) Comment on above: Performed By: #### BELTRAN LEUNG, ANEU, BMP, GFR, PBNP, ADIFF, CBC #### [address] [address] Eosinophils/100 WBC (Bld) 1.8 % Normal 0.0-7.0 [facility] ([place]) Comment on above: Performed By: #### T BELTRAN KILGORE, JAY, BMP, GFR, PBNP, ADIFF, CBC #### [address] [address] Lymphocyte, Absolute 2.9 10 3/mcL Normal 0.8-3.9 Replaced by [facility] ([place] Comment on above: Performed By: #### BELTRAN LEUNG, JAY, BMP, GFR, PBNP, ADIFF, CBC #### [address] [address] Lymphocytes/100 WBC (Bld) 32.5 % Normal 10.0-50.0 [facility] ([place]) Comment on above: Performed By: #### BELTRAN LEUNG, JAY, BMP, GFR, PBNP, ADIFF, CBC #### [address] [address] Monocyte, Absolute 0.7 10 3/mcL Normal 0.2-1.0 [facility] ([place]) Comment on above: Performed By: #### BELTRAN LEUNG, ANEU, BMP, GFR, PBNP, ADIFF, CBC #### [address] [address] Monocytes/100 WBC (Bld) 7.4 % Normal 1.7-13.0 [facility] ([place] Comment on above: Performed By: #### T BELTRAN KILGORE, ANEU, BMP, GFR, PBNP, ADIFF, CBC #### [address] [address] Neutrophils/100 WBC (Bld) 58.0 % Normal 37.0-80.0 [facility] ([place] Comment on above: Performed By: #### T BELTRAN KILGORE, ANEU, BMP, GFR, PBNP, ADIFF, CBC #### [address] [address] .GFRon 07-07-2023 GFR 46 ml/min/1.73sqm Normal [facility] ([place] Comment on above: Result Comment: GFR Population [...] ANEU, BMP, GFR, PBNP, ADIFF, CBC #### [address] [address] GFR Non- 38 ml/min/1.73sqm Normal [facility] ([place] Comment on above: Result Comment: GFR Population [...] ANEU, BMP, GFR, PBNP, ADIFF, CBC #### [place] [address] .NEUABSon 07-07-2023 Neutrophil, Absolute 5.2 10 3/mcL Normal 2.9-6.2 Replaced by [facility] ([place] Comment on above: Performed By: #### T BELTRAN KILGORE, ANEU, BMP, GFR, PBNP, ADIFF, CBC #### [place] [address] CBCon 07-07-2023 Erythrocyte distribution width (RBC) [Ratio] 16.7 % High 11.5-14.5 [facility] ([place] Comment on above: Performed By: #### T BELTRAN KILGORE, JAY, BMP, GFR, PBNP, ADIFF, CBC #### [place] [address] Hematocrit (Bld) [Volume fraction] 37.5 % Normal 37.0-47.0 [facility] ([place] Comment on above: Performed By: #### T BELTRAN KILGORE, JAY, BMP, GFR, PBNP, ADIFF, CBC #### [place] [address] Hgb 12.7 G/dL Normal 12.0-16.0 [facility] ([place] Comment on above: Performed By: #### T BELTRAN KILGORE, JAY, BMP, GFR, PBNP, ADIFF, CBC #### [place] [address] MCH (RBC) [Entitic mass] 28.8 pg Normal 27.0-31.2 [facility] ([place] Comment on above: Performed By: #### T BELTRAN KILGORE, JAY, BMP, GFR, PBNP, ADIFF, CBC #### [place] [address] MCHC 34.0 G/dL Normal 33.0-37.0 [facility] ([place] Comment on above: Performed By: #### T BELTRAN KILGORE, ANEU, BMP, GFR, PBNP, ADIFF, CBC #### [address] [address] MCV (RBC) [Entitic vol] 84.7 fL Normal 80.0-94.0 [facility] ([place] Comment on above: Performed By: #### T BELTRAN KILGORE, JAY, BMP, GFR, PBNP, ADIFF, CBC #### [address] [address] Platelet 147 10 3/mcL Normal 130-400 [facility] ([place]) Comment on above: Performed By: #### T BELTRAN KILGORE, ANEU, BMP, GFR, PBNP, ADIFF, CBC #### [facility] [address] [address] Platelet mean volume (Bld) [Entitic vol] 8.6 fL Normal 7.4-10.4 [facility] ([place]) Comment on above: Performed By: #### T BELTRAN KILGORE, JAY, BMP, GFR, PBNP, ADIFF, CBC #### [address] [address] RBC 4.42 10 6/mcL Normal 4.20-5.40 [facility] ([place]) Comment on above: Performed By: #### T BELTRAN KILGORE, JAY, BMP, GFR, PBNP, ADIFF, CBC #### [facility] [address] [address] WBC 9.0 10 3/mcL Normal 4.6-10.8 [facility] ([place] Comment on above: Performed By: #### T BELTRAN KILGORE, JAY, BMP, GFR, PBNP, ADIFF, CBC #### [facility] [address] [address] CMPon 07-07-2023 Albumin Level 3.2 G/dL Low 3.4-4.8 [facility] ([place]) Comment on above: Performed By: #### T BELTRAN KILGORE, ANEU, BMP, GFR, PBNP, ADIFF, CBC #### [address] [address] Albumin/Globulin [Mass ratio] 0.8 {ratio} Low 1.1-2.5 [facility] ([place] Comment on above: Performed By: #### T BELTRAN KILGORE, JAY, BMP, GFR, PBNP, ADIFF, CBC #### [address] [address] ALP [Catalytic activity/Vol] 100 U/L Normal 40-135 [facility] ([place] Comment on above: Performed By: #### T BELTRAN KILGORE, ANEU, BMP, GFR, PBNP, ADIFF, CBC #### [address] [address] ALT [Catalytic activity/Vol] 52 U/L Normal 14-59 [facility] ([place] Comment on above: Performed By: #### T BELTRAN KILGORE, JAY, BMP, GFR, PBNP, ADIFF, CBC #### [address] [address] AST [Catalytic activity/Vol] 44 U/L High 10-40 [facility] ([place] Comment on above: Performed By: #### T BELTRAN KILGORE, JAY, BMP, GFR, PBNP, ADIFF, CBC #### [address] [address] Bili Total 0.5 mg/dL Normal 0.2-1.0 [facility] ([place] Comment on above: Result Comment: Use of this assay is not recommended for patients undergoing treatment with eltrombopag due to the potential for falsely elevated results. Performed By: #### T BELTRAN KILGORE, ANEU, BMP, GFR, PBNP, ADIFF, CBC #### [address] [address] BUN/Creatinine Ratio 22 ratio Normal 7-27 [facility] ([place]) Comment on above: Performed By: #### T BELTRAN KILGORE, JAY, BMP, GFR, PBNP, ADIFF, CBC #### [address] [address] Calcium [Mass/Vol] 9.5 mg/dL Normal 8.4-10.2 [facility] ([place] Comment on above: Performed By: #### T BELTRAN KILGORE, ANEU, BMP, GFR, PBNP, ADIFF, CBC #### [address] [address] Chloride [Moles/Vol] 102 mmol/L Normal 98-107 [facility] ([place] Comment on above: Performed By: #### T BELTRAN KILGORE, ANEU, BMP, GFR, PBNP, ADIFF, CBC #### [address] [address] CO2 [Moles/Vol] 27 mmol/L Normal 23-31 [facility] ([place]) Comment on above: Performed By: #### T BELTRAN KILGORE, JAY, BMP, GFR, PBNP, ADIFF, CBC #### [address] [address] Creatinine [Mass/Vol] 1.39 mg/dL High 0.55-1.02 [facility] ([place] Comment on above: Performed By: #### T BELTRAN KILGORE, ANEU, BMP, GFR, PBNP, ADIFF, CBC #### [address] [address] Electrolyte Balance 5.0 mEq/L Normal 4.0-15.0 [facility] ([place]) Comment on above: Performed By: #### T BELTRAN KILGORE, JAY, BMP, GFR, PBNP, ADIFF, CBC #### [address] [address] Globulin 3.9 G/dL Normal [facility] ([place] Comment on above: Performed By: #### T BELTRAN KILGORE, JAY, BMP, GFR, PBNP, ADIFF, CBC #### [address] [address] Glucose [Mass/Vol] 176 mg/dL High 80-115 [facility] [place] Comment on above: Performed By: #### T BELTRAN KILGORE, JAY, BMP, GFR, PBNP, ADIFF, CBC #### [address] [address] Potassium [Moles/Vol] 4.3 mmol/L Normal 3.5-5.1 [facility] ([place] Comment on above: Performed By: #### T BELTRAN KILGORE, JAY, BMP, GFR, PBNP, ADIFF, CBC #### [address] [address] Sodium [Moles/Vol] 134 mmol/L Low 136-145 [facility] [place] Comment on above: Performed By: #### T BELTRAN KILGORE, JAY, BMP, GFR, PBNP, ADIFF, CBC #### [address] [address] Total Protein 7.1 G/dL Normal 6.4-8.2 [facility] ([place]) Comment on above: Performed By: #### BELTRAN LEUNG, JAY, BMP, GFR, PBNP, ADIFF, CBC #### [address] [address] Urea nitrogen [Mass/Vol] 30 mg/dL High 7-18 [facility] ([place] Comment on above: Performed By: #### BELTRAN LEUNG, JAY, BMP, GFR, PBNP, ADIFF, CBC #### [address] [address] FT3on 07-07-2023 Free T3 [Mass/Vol] 1.73 pg/mL Low 2.30-4.00 [facility] [place] Comment on above: Performed By: #### BELTRAN LEUNG, JAY, BMP, GFR, PBNP, ADIFF, CBC #### [address] [address] FT4on 07-07-2023 Free T4 [Mass/Vol] 0.98 ng/dL Normal 0.76-1.46 [facility] [place] Comment on above: Performed By: #### T BELTRAN KILGORE, ANEU, BMP, GFR, PBNP, ADIFF, CBC #### [address] [address] LIPIDon 07-07-2023 Cholesterol [Mass/Vol] 175 mg/dL Normal 0-200 [facility] ([place] Comment on above: Result Comment: Chol esterol Reference Interval: Less than 200 Desirable 200-239 Borderline high risk 240 and above High risk Performed By: #### T BELTRAN KILGORE, ANEU, BMP, GFR, PBNP, ADIFF, CBC #### [address] [address] Cholesterol in HDL [Mass/Vol] 39 mg/dL Low 40-60 [facility] ([place] Comment on above: Performed By: #### T BELTRAN KILGORE, JAY, BMP, GFR, PBNP, ADIFF, CBC #### [address] [address] LDL Cholesterol Not Valid Normal 0-130 [facility] ([place]) Comment on above: Result Comment: Trig lyceride >400 invalidates the calculated LDL. Performed By: #### T BELTRAN KILGORE, JAY, BMP, GFR, PBNP, ADIFF, CBC #### [address] [address] Triglyceride [Mass/Vol] 441 mg/dL High 0-150 [facility] ([place] Comment on above: Result Comment: Trig lyceride Reference Interval: Less than 150 Normal 150-199 Borderline high risk 200-499 High risk 500 or higher Very high risk Performed By: #### T BELTRAN KILGORE, JAY, BMP, GFR, PBNP, ADIFF, CBC #### [address] [address] TSHon 07-07-2023 TSH Qn 1.03 m[IU]/L Normal 0.36-3.74 [facility] ([place] Comment on above: Performed By: #### T BELTRAN KILGORE, JAY, BMP, GFR, PBNP, ADIFF, CBC #### [address] [address] VIDHon 07-07-2023 Vit. D 25-Hydroxy 21.9 ng/mL Normal [facility] ([place]) Comment on above: Result Comment: Inte rpretive Values Based on Total 25(OH) Vitamin D: Deficient <20 ng/mL Insufficient 20 - <30 ng/mL Sufficient 30-100 ng/mL Performed By: #### BELTRAN LEUNG, JAY, BMP, GFR, PBNP, ADIFF, CBC #### [address] [address] .Auto Diffon 06-23-2023 Basophil, Absolute 0.0 10 3/mcL Normal 0.0-0.2 [facility] ([place] Comment on above: Performed By: #### BELTRAN LEUNG, JAY, BMP, GFR, PBNP, ADIFF, CBC #### [address] [address] Basophils/100 WBC (Bld) 0.4 % Normal 0.0-2.5 [facility] ([place] Comment on above: Performed By: #### BELTRAN LEUNG, JAY, BMP, GFR, PBNP, ADIFF, CBC #### [address] [address] Eosinophil, Absolute 0.2 10 3/mcL Normal 0.0-0.4 Replaced by [facility] ([place] Comment on above: Performed By: #### BELTRAN LEUNG, JAY, BMP, GFR, PBNP, ADIFF, CBC #### [address] [address] Eosinophils/100 WBC (Bld) 3.4 % Normal 0.0-7.0 [facility] ([place] Comment on above: Performed By: #### BELTRAN LEUNG, JAY, BMP, GFR, PBNP, ADIFF, CBC #### [address] [address] Lymphocyte, Absolute 2.2 10 3/mcL Normal 0.8-3.9 Replaced by [facility] ([place] Comment on above: Performed By: #### T BELTRAN KILGORE, ANEU, BMP, GFR, PBNP, ADIFF, CBC #### [address] [address] Lymphocytes/100 WBC (Bld) 35.6 % Normal 10.0-50.0 [facility] ([place] Comment on above: Performed By: #### T BELTRAN KILGORE, ANEU, BMP, GFR, PBNP, ADIFF, CBC #### [address] [address] Monocyte, Absolute 0.4 10 3/mcL Normal 0.2-1.0 [facility] ([place] Comment on above: Performed By: #### T BELTRAN KILGORE, ANEU, BMP, GFR, PBNP, ADIFF, CBC #### [address] [address] Monocytes/100 WBC (Bld) 7.1 % Normal 1.7-13.0 [facility] ([place] Comment on above: Performed By: #### T BELTRAN KILGORE, ANEU, BMP, GFR, PBNP, ADIFF, CBC #### [address] [address] Neutrophils/100 WBC (Bld) 53.5 % Normal 37.0-80.0 [facility] ([place] Comment on above: Performed By: #### T BELTRAN KILGORE, ANEU, BMP, GFR, PBNP, ADIFF, CBC #### [address] [address] .GFRon 06-23-2023 GFR 50 ml/min/1.73sqm Normal [facility] ([place]) Comment on above: Result Comment: [...] ANEU, BMP, GFR, PBNP, ADIFF, CBC #### [address] [address] GFR Non- 41 ml/min/1.73sqm Normal [facility] ([place] Comment on above: Result Comment: GFR Population [...] ANEU, BMP, GFR, PBNP, ADIFF, CBC #### [address] [address] .MDWon 06-23-2023 Monocyte Distribution Width 19.20 Normal 0.00-20.00 [facility] ([place]) Comment on above: Result Comment: For ED adult patients suspected of sepsis, MDW<=20.0 does not rule out sepsis or risk of sepsis Performed By: #### T BELTRAN KILGORE, ANEU, BMP, GFR, PBNP, ADIFF, CBC #### [address] [address] .NEUABSon 06-23-2023 Neutrophil, Absolute 3.3 10 3/mcL Normal 2.9-6.2 Replaced by [facility] ([place] Comment on above: Performed By: #### T BELTRAN KILGORE, ANEU, BMP, GFR, PBNP, ADIFF, CBC #### [address] [address] BMPon 06-23-2023 BUN/Creatinine Ratio 22 ratio Normal 7-27 [facility] ([place] Comment on above: Performed By: #### T BELTRAN KILGORE, ANEU, BMP, GFR, PBNP, ADIFF, CBC #### [address] [address] Calcium [Mass/Vol] 9.4 mg/dL Normal 8.4-10.2 [facility] [place] Comment on above: Performed By: #### T BELTRAN KILGORE, ANEU, BMP, GFR, PBNP, ADIFF, CBC #### [address] [address] Chloride [Moles/Vol] 101 mmol/L Normal 98-107 [facility] ([place]) Comment on above: Performed By: #### T BELTRAN KILGORE, JAY, BMP, GFR, PBNP, ADIFF, CBC #### [address] [address] CO2 [Moles/Vol] 25 mmol/L Normal 23-31 [facility] ([place]) Comment on above: Performed By: #### T BELTRAN KILGORE, JAY, BMP, GFR, PBNP, ADIFF, CBC #### [address] [address] Creatinine [Mass/Vol] 1.30 mg/dL High 0.55-1.02 [facility] ([place]) Comment on above: Performed By: #### T BELTRAN KILGORE, ANEU, BMP, GFR, PBNP, ADIFF, CBC #### [address] [address] Electrolyte Balance 11.0 mEq/L Normal 4.0-15.0 [facility] ([place]) Comment on above: Performed By: #### T BELTRAN KILGORE, ANEU, BMP, GFR, PBNP, ADIFF, CBC #### [address] [address] Glucose [Mass/Vol] 276 mg/dL High 80-115 [facility] [place] Comment on above: Performed By: #### T BELTRAN KILGORE, JAY, BMP, GFR, PBNP, ADIFF, CBC #### [address] [address] Potassium [Moles/Vol] 4.8 mmol/L Normal 3.5-5.1 [facility] ([place]) Comment on above: Performed By: #### T BELTRAN KILGORE, JAY, BMP, GFR, PBNP, ADIFF, CBC #### [address] [address] Sodium [Moles/Vol] 137 mmol/L Normal 136-145 [facility] [place] Comment on above: Performed By: #### T BELTRAN KILGORE, JAY, BMP, GFR, PBNP, ADIFF, CBC #### [address] [address] Urea nitrogen [Mass/Vol] 29 mg/dL High 7-18 [facility] ([place]) Comment on above: Performed By: #### BELTRAN LEUNG, JAY, BMP, GFR, PBNP, ADIFF, CBC #### [address] [address] CBCon 06-23-2023 Erythrocyte distribution width (RBC) [Ratio] 17.4 % High 11.5-14.5 [facility] ([place]) Comment on above: Performed By: #### BELTRAN LEUNG, JAY, BMP, GFR, PBNP, ADIFF, CBC #### [address] [address] Hematocrit (Bld) [Volume fraction] 34.6 % Low 37.0-47.0 [facility] ([place]) Comment on above: Performed By: #### T BELTRAN KILGORE, JAY, BMP, GFR, PBNP, ADIFF, CBC #### [address] [address] Hgb 11.9 G/dL Low 12.0-16.0 [facility] ([place]) Comment on above: Performed By: #### BELTRAN LEUNG, ANEU, BMP, GFR, PBNP, ADIFF, CBC #### [address] [address] MCH (RBC) [Entitic mass] 29.0 pg Normal 27.0-31.2 [facility] ([place]) Comment on above: Performed By: #### T BELTRAN KILGORE, ANEU, BMP, GFR, PBNP, ADIFF, CBC #### [address] [address] MCHC 34.4 G/dL Normal 33.0-37.0 [facility] ([place]) Comment on above: Performed By: #### T BELTRAN KILGORE, ANEU, BMP, GFR, PBNP, ADIFF, CBC #### [address] [address] MCV (RBC) [Entitic vol] 84.3 fL Normal 80.0-94.0 [facility] ([place]) Comment on above: Performed By: #### T BELTRAN KILGORE, ANEU, BMP, GFR, PBNP, ADIFF, CBC #### [address] [address] Platelet 162 10 3/mcL Normal 130-400 [facility] ([place]) Comment on above: Performed By: #### T BELTRAN KILGORE, JAY, BMP, GFR, PBNP, ADIFF, CBC #### [address] [address] Platelet mean volume (Bld) [Entitic vol] 7.6 fL Normal 7.4-10.4 [facility] ([place]) Comment on above: Performed By: #### BELTRAN LEUNG, ANEU, BMP, GFR, PBNP, ADIFF, CBC #### [address] [address] RBC 4.11 10 6/mcL Low 4.20-5.40 [facility] ([place]) Comment on above: Performed By: #### BELTRAN LEUNG, ANEU, BMP, GFR, PBNP, ADIFF, CBC #### [address] [place], [place] [address] WBC 6.1 10 3/mcL Normal 4.6-10.8 [facility] ([place]) Comment on above: Performed By: #### T JAME, BELTRAN, ANEU, BMP, GFR, PBNP, ADIFF, CBC #### [place] [address] [place], [place] [address] LABORATORYOrdered By: Maria Elena Phan on 06-23-2023 Glucose [Mass/Vol] 268 mg/dL High 82 - 115 mg/dL [facility] LABORATORYOrdered By: SYSTEM SYSTEM on 06-23-2023 Basophil, [...] (Bld) [Mass/Vol] 183 pg/mL High 0-125 [facility] ([place]) Comment on above: Result Comment: NT-p roBNP results of less than 300 pg/mL effectively rules out acute congestive heart failure with 99% negative predictive value. Performed By: #### T BELTRAN KILGORE, ANEU, BMP, GFR, PBNP, ADIFF, CBC ####[address] [place], [place] [address] TROPHSon 06-23-2023 Troponin I High Sensitivity 7.0 ng/L Normal 0.0-51.4 [facility] ([place]) Comment on above: Performed By: #### T BELTRAN KILGORE, ANEU, BMP, GFR, PBNP, ADIFF, CBC #### [address] [place], [place] [address] XR CHEST 1 VIEWon 06-23-2023 XR CHEST [...] 06/23/2023 7:23:32 PM Ordering Provider: LAURA Moss [facility] ([place]) PET/CT CU64 DETECTNET SB-MTo n 05-18-2023 PET/CT [...] with low-dose CT at the workstation. Dose csirafqiq-[id number] time: 54 min COMPARISON: CT cervical spine [...] 05/18/2023 3:32:17 PM Ordering Provider: KENTRELL DEAN [facility] ([place]) CHROMAon 02-08-2023 Chromogranin A 868 ng/mL High <98 [facility] ([place]) Comment on above: Result Comment: This test is performed using the MRO [id number]. Results obtained with different methods or kits cannot be used interchangeably. This test was developed and its performance characteristics determined by [facility]'s [facility] Pathology and Laboratory Medicine [place] ([facility]). It has not been cleared or approved by the FDA. [facility] is regultaed under CLIA as qualified to perform high-complexity testing. This test is used for clinical purposes. It should not be regarded as investigational or for research. Performed By: [facility] [address] [place] [address] Curbing Stonecutter: Bandar Haq III, M.D. CLIA#: [id number] Performed By: #### T BELTRAN KILGORE, ANEU, BMP, GFR, PBNP, ADIFF, CBC #### [address] [place], [place] [address] [facility] 02-04-2023 TTG Ab (IgA) <4.0 Normal <=3.9 [facility] ([place]) Comment on above: Result Comment: Effe ctive [...] These test results were obtained with the [employer] QUANTA Lite R-tTG IgA DUGLAS. R-tTG IgA values obtained with different manufacturers' assay methods may not be used interchangeably. Performed By: #### T BELTRAN KILGORE, ANEU, BMP, GFR, PBNP, ADIFF, CBC #### [address] [place], [place] [address] GLIADon 02-04-2023 Gliadin Ab IgA 37 High <=19 [facility] ([place]) Comment on above: Result Comment: Glia din [...] These test results were obtained with the [employer] QUANTA Lite Gliadin IgG II and Gliadin IgA II. Gliadin values obtained with different manufacturers' assay methods may not be used interchangeably. Performed By: #### T JAME, BELTRAN, ANEU, BMP, GFR, PBNP, ADIFF, CBC #### [address] [place], [place] [address] Gliadin Ab IgG <20 Normal <=19 [facility] ([place]) Comment on above: Result Comment: Glia din [...] These test results were obtained with the [employer] QUANTA Lite Gliadin IgG II and Gliadin IgA II. Gliadin values obtained with different manufacturers' assay methods may not be used interchangeably. Performed By: #### T JAME, BELTRAN, ANEU, BMP, GFR, PBNP, ADIFF, CBC #### All[address] [address] .GFRon 02-03-2023 GFR 52 ml/min/1.73sqm Normal [facility] ([place]) Comment on above: Result Comment: GFR Population [...] TSH, FE, LIPID, IBC, CHROMA, VIDH ####[address] [address]#### CPEP, IGA, FOL, B12, ENDO, GLIAD ####[address] [address] GFR Non- 43 ml/min/1.73sqm Normal [facility] ([place]) Comment on above: Result Comment: GFR Population [...] TSH, FE, LIPID, IBC, CHROMA, VIDH ####[address] [address]#### CPEP, IGA, FOL, B12, ENDO, GLIAD ####[address] [address] B12on 02-03-2023 Cobalamin (Vitamin B12) [Mass/Vol] 461 pg/mL Normal 211-911 [facility] ([place]) Comment on above: Performed By: #### T JAME, BELTRAN, ANEU, BMP, GFR, PBNP, ADIFF, CBC #### [address] [place] [address] CMPon 02-03-2023 Albumin Level 3.2 G/dL Low 3.4-4.8 [facility] ([place]) Comment on above: Performed By: #### G FR, CMP, FERR, TSH, FE, LIPID, IBC, CHROMA, VIDH ####[address] [place] [address]#### CPEP, IGA, FOL, B12, ENDO, GLIAD ####[address] [address] Albumin/Globulin [Mass ratio] 0.7 {ratio} Low 1.1-2.5 [facility] ([place]) Comment on above: Performed By: #### G FR, CMP, FERR, TSH, FE, LIPID, IBC, CHROMA, VIDH ####[place] [address]#### CPEP, IGA, FOL, B12, ENDO, GLIAD ####[place] [address] ALP [Catalytic activity/Vol] 105 U/L Normal 40-135 [facility] ([place]) Comment on above: Performed By: #### G FR, CMP, FERR, TSH, FE, LIPID, IBC, CHROMA, VIDH ####[place] [address]#### CPEP, IGA, FOL, B12, ENDO, GLIAD ####[place] [address] ALT [Catalytic activity/Vol] 46 U/L Normal 14-59 [facility] ([place]) Comment on above: Performed By: #### G FR, CMP, FERR, TSH, FE, LIPID, IBC, CHROMA, VIDH ####[place] [address]#### CPEP, IGA, FOL, B12, ENDO, GLIAD ####[place] [address] AST [Catalytic activity/Vol] 47 U/L High 10-40 [facility] ([place]) Comment on above: Performed By: #### G FR, CMP, FERR, TSH, FE, LIPID, IBC, CHROMA, VIDH ####[place] [address]#### CPEP, IGA, FOL, B12, ENDO, GLIAD ####[place] [address] Bili Total 0.4 mg/dL Normal 0.2-1.0 [facility] ([place]) Comment on above: Result Comment: Use of this assay is not recommended for patients undergoing treatment with eltrombopag due to the potential for falsely elevated results. Performed By: #### G FR, CMP, FERR, TSH, FE, LIPID, IBC, CHROMA, VIDH ####[place] [address]#### CPEP, IGA, FOL, B12, ENDO, GLIAD ####[address] [address] BUN/Creatinine Ratio 22 ratio Normal 7-27 [facility] ([place]) Comment on above: Performed By: #### G FR, CMP, FERR, TSH, FE, LIPID, IBC, CHROMA, VIDH ####[place] [address]#### CPEP, IGA, FOL, B12, ENDO, GLIAD ####[place] [address] Calcium [Mass/Vol] 9.6 mg/dL Normal 8.4-10.2 [facility] Comment on above: Performed By: #### G FR, CMP, FERR, TSH, FE, LIPID, IBC, CHROMA, VIDH ####[place] [address]#### CPEP, IGA, FOL, B12, ENDO, GLIAD ####[place] [address] Chloride [Moles/Vol] 100 mmol/L Normal 98-107 [facility] ([place]) Comment on above: Performed By: #### G FR, CMP, FERR, TSH, FE, LIPID, IBC, CHROMA, VIDH ####[place] [address]#### CPEP, IGA, FOL, B12, ENDO, GLIAD ####[place] [address] CO2 [Moles/Vol] 28 mmol/L Normal 23-31 [facility] ([place]) Comment on above: Performed By: #### G FR, CMP, FERR, TSH, FE, LIPID, IBC, CHROMA, VIDH ####[place] [address]#### CPEP, IGA, FOL, B12, ENDO, GLIAD ####[place] [address] Creatinine [Mass/Vol] 1.25 mg/dL High 0.55-1.02 [facility] ([place]) Comment on above: Performed By: #### G FR, CMP, FERR, TSH, FE, LIPID, IBC, CHROMA, VIDH ####[place] [address]#### CPEP, IGA, FOL, B12, ENDO, GLIAD ####[place] [address] Electrolyte Balance 8.0 mEq/L Normal 4.0-15.0 [facility] ([place]) Comment on above: Performed By: #### G FR, CMP, FERR, TSH, FE, LIPID, IBC, CHROMA, VIDH ####[place] [address]#### CPEP, IGA, FOL, B12, ENDO, GLIAD ####[place] [address] Globulin 4.5 G/dL Normal [facility] ([place]) Comment on above: Performed By: #### G FR, CMP, FERR, TSH, FE, LIPID, IBC, CHROMA, VIDH ####[place] [address]#### CPEP, IGA, FOL, B12, ENDO, GLIAD ####[place] [address] Glucose [Mass/Vol] 213 mg/dL High 80-115 [facility] [place] Comment on above: Performed By: #### G FR, CMP, FERR, TSH, FE, LIPID, IBC, CHROMA, VIDH ####[place] [address]#### CPEP, IGA, FOL, B12, ENDO, GLIAD ####[place] [address] Potassium [Moles/Vol] 4.9 mmol/L Normal 3.5-5.1 [facility] ([place]) Comment on above: Performed By: #### G FR, CMP, FERR, TSH, FE, LIPID, IBC, CHROMA, VIDH ####[place] [address]#### CPEP, IGA, FOL, B12, ENDO, GLIAD ####[address] [address] Sodium [Moles/Vol] 136 mmol/L Normal 136-145 [facility] [place] Comment on above: Performed By: #### G FR, CMP, FERR, TSH, FE, LIPID, IBC, CHROMA, VIDH ####[place] [address]#### CPEP, IGA, FOL, B12, ENDO, GLIAD ####[address] [address] Total Protein 7.7 G/dL Normal 6.4-8.2 [facility] ([place]) Comment on above: Performed By: #### G FR, CMP, FERR, TSH, FE, LIPID, IBC, CHROMA, VIDH ####[place] [address]#### CPEP, IGA, FOL, B12, ENDO, GLIAD ####[address] [address] Urea nitrogen [Mass/Vol] 28 mg/dL High 7-18 [facility] ([place]) Comment on above: Performed By: #### G FR, CMP, FERR, TSH, FE, LIPID, IBC, CHROMA, VIDH ####[place] [address]#### CPEP, IGA, FOL, B12, ENDO, GLIAD ####[address] [address] CPEPon 02-03-2023 C-Peptide 11.09 ng/mL High 0.81-3.85 [facility] ([place]) Comment on above: Performed By: #### T BELTRAN KILGORE, ANEU, BMP, GFR, PBNP, ADIFF, CBC #### [address] [address] FEon 02-03-2023 Iron [Mass/Vol] 52 ug/dL Normal 50-170 [facility] ([place]) Comment on above: Performed By: #### G FR, CMP, FERR, TSH, FE, LIPID, IBC, CHROMA, VIDH ####[address] [address]#### CPEP, IGA, FOL, B12, ENDO, GLIAD ####[address] [address] Asad 02-03-2023 Ferritin [Mass/Vol] 23.0 ng/mL Normal 8.0-252.0 [facility] ([place]) Comment on above: Performed By: #### G FR, CMP, FERR, TSH, FE, LIPID, IBC, CHROMA, VIDH ####[place] [id number]#### CPEP, IGA, FOL, B12, ENDO, GLIAD ####[place] [address] FOLon 02-03-2023 Folate 29.23 ng/mL High 5.38-24.00 [facility] ([place] Comment on above: Performed By: #### BELTRAN LEUNG, ANEU, BMP, GFR, PBNP, ADIFF, CBC #### [address] [place], [place] [address] IBCon 02-03-2023 TIBC 414 mcg/dL Normal 250-450 [facility] ([place]) Comment on above: Performed By: #### G FR, CMP, FERR, TSH, FE, LIPID, IBC, CHROMA, VIDH ####[place] [id number]#### CPEP, IGA, FOL, B12, ENDO, GLIAD ####[place] [address] IGAon 02-03-2023 IgA [Mass/Vol] 584 mg/dL High 40-350 [facility] ([place]) Comment on above: Result Comment: No te - New Reference Range in effect 19 Performed By: #### T ROPHS, MDW, ANEU, BMP, GFR, PBNP, ADIFF, CBC #### [address] [place], [place] [address] LIPIDon 02-03-2023 Cholesterol [Mass/Vol] 159 mg/dL Normal 0-200 [facility] ([place]) Comment on above: Result Comment: Chol esterol Reference Interval: Less than 200 Desirable 200-239 Borderline high risk 240 and above High risk Performed By: #### G FR, CMP, FERR, TSH, FE, LIPID, IBC, CHROMA, VIDH ####[place] [address]#### CPEP, IGA, FOL, B12, ENDO, GLIAD ####[address] [address] Cholesterol in HDL [Mass/Vol] 39 mg/dL Low 40-60 [facility] ([place]) Comment on above: Performed By: #### G FR, CMP, FERR, TSH, FE, LIPID, IBC, CHROMA, VIDH ####[place] [address]#### CPEP, IGA, FOL, B12, ENDO, GLIAD ####[address] [address] Cholesterol in LDL [Mass/Vol] 43 mg/dL Normal 0-130 [facility] ([place] Comment on above: Performed By: #### G FR, CMP, FERR, TSH, FE, LIPID, IBC, CHROMA, VIDH ####[place] [address]#### CPEP, IGA, FOL, B12, ENDO, GLIAD ####[address] [address] Triglyceride [Mass/Vol] 385 mg/dL High 0-150 [facility] ([place] Comment on above: Result Comment: Trig lyceride Reference Interval: Less than 150 Normal 150-199 Borderline high risk 200-499 High risk 500 or higher Very high risk Performed By: #### G FR, CMP, FERR, TSH, FE, LIPID, IBC, CHROMA, VIDH ####[place] [address]#### CPEP, IGA, FOL, B12, ENDO, GLIAD ####[place] [address] TSHon 02-03-2023 TSH Qn 1.05 m[IU]/L Normal 0.36-3.74 [facility] ([place]) Comment on above: Performed By: #### G FR, CMP, FERR, TSH, FE, LIPID, IBC, CHROMA, VIDH ####[place] [address] [place] [address]#### CPEP, IGA, FOL, B12, ENDO, GLIAD ####[place] [address] VIDHon 02-03-2023 Vit. D 25-Hydroxy 21.8 ng/mL Normal [facility] ([place]) Comment on above: Result Comment: Inte rpretive Values Based on Total 25(OH) Vitamin D: Deficient <20 ng/mL Insufficient 20 - <30 ng/mL Sufficient 30-100 ng/mL Performed By: #### G FR, CMP, FERR, TSH, FE, LIPID, IBC, CHROMA, VIDH ####[place] [address]#### CPEP, IGA, FOL, B12, ENDO, GLIAD ####[place] [address] LABORATORYOrdered By: Deion Cleveland on 11-04-2022 Blood Glucose Testing Reason Routine (11/04/22 5:10 PM) [facility] Glucose [Mass/Vol] 170 mg/dL Invalid Interpretation Code 82 - 115 mg/dL [facility] Blood Glucose Testing Reason Routine (11/04/22 12:24 PM) [facility] Glucose [Mass/Vol] 258 mg/dL Invalid Interpretation Code 82 - 115 mg/dL [facility] LABORATORYOrdered By: Charmaine clancy on 11-04-2022 Blood Glucose Testing Reason Routine (11/04/22 4:39 PM) [facility] Glucose [Mass/Vol] 246 mg/dL Invalid Interpretation Code 82 - 115 mg/dL [facility] LABORATORYOrdered By: SYSTEM SYSTEM on 11-03-2022 Basophil, [...] Glucose Interventions Notify physician (11/02/22 2:09 AM) [facility] Blood Glucose Interventions Notify physician (11/02/22 1:15 AM) [facility] Blood Glucose Interventions Notify physician (11/02/22 12:31 AM) [facility] Blood Glucose, Capillary Out of Range Critical High (11/02/22 12:31 AM) [facility] LABORATORYOrdered By: Anastacio Kowalski on 11-01-2022 Blood Glucose, Capillary Out of Range Critical High (11/01/22 11:30 PM) [facility] Blood Glucose, Capillary Out of Range Critical High (11/01/22 10:18 PM) [facility] LABORATORYOrdered By: SYSTEM SYSTEM on 11-01-2022 Calcium [...] serogroups and species may also cause disease. [facility] LABORATORYOrdered By: SYSTEM SYSTEM on 10-27-2022 Calcium [...] Invalid Interpretation Code 82 - 115 mg/dL [facility] Glucose [Mass/Vol] 219 mg/dL Invalid Interpretation Code 82 - 115 mg/dL [facility] LABORATORYOrdered By: Aubrey Mukherjee on 09-20-2022 Blood Glucose Testing Reason Routine (09/20/22 7:48 AM) [facility] Glucose [Mass/Vol] 242 mg/dL Invalid Interpretation Code 82 - 115 mg/dL [facility] LABORATORYOrdered By: SYSTEM SYSTEM on 09-20-2022 Basophils [...] Glucose Testing Reason Routine (09/19/22 11:46 PM) [facility] LABORATORYOrdered By: Quinton Antony on 09-19-2022 Blood Glucose Testing Reason Routine (09/19/22 10:06 PM) [facility] Glucose [Mass/Vol] 306 mg/dL Invalid Interpretation Code 82 - 115 mg/dL [facility] LABORATORYOrdered By: SYSTEM SYSTEM on 09-19-2022 Lactate [...] Glucose Testing Reason Routine (09/19/22 3:29 PM) [facility] Glucose [Mass/Vol] 346 mg/dL Invalid Interpretation Code 82 - 115 mg/dL [facility] LABORATORYOrdered By: Tari Escobedo on 09-19-2022 Appearance [...] Glucose Testing Reason Routine (07/09/22 12:15 PM) [facility] Glucose [Mass/Vol] 160 mg/dL Invalid Interpretation Code 82 - 115 mg/dL [facility] LABORATORYOrdered By: Hi Velazquez on 07-09-2022 Blood Glucose Testing Reason Routine (07/09/22 8:14 AM) [facility] Glucose [Mass/Vol] 147 mg/dL Invalid Interpretation Code 82 - 115 mg/dL [facility] LABORATORYOrdered By: SYSTEM SYSTEM on 07-09-2022 Calcium [...] Glucose Testing Reason Routine (07/08/22 9:34 PM) [facility] Glucose [Mass/Vol] 127 mg/dL Invalid Interpretation Code 82 - 115 mg/dL [facility] LABORATORYOrdered By: Rissa Craven on 07-06-2022 Basophil, [...] 07-03 GSAER Gram Positive Cocci in clusters [facility] Microscopic examination of blood, culture Staphylococcus coagulase negative Isolated from aerobe bottle only. 1 of 2 sets positive Organism is a potential contaminant. Clinical Significance undetermined. Please contact Microbiology if further work-up is required. [facility] Microscopic examination of blood, culture Blood Culture: No Growth at 5 days. [facility] LABORATORYOrdered By: Vianney Cavazos on 07-02-2022 Adenovirus DNA VARSHA+non-probe Ql (Nph) Not Detected *NA* (07/02/22 8:20 AM) Invalid Interpretation Code Not Detected AH Auto Viro/Sero SS B. parapertussis [id number] DNA VARSHA+non-probe Ql (Nph) Not Detected *NA* [...] Detected AH Auto Viro/Sero SS hMPV RNA VARSHA+non-probe Ql (Nph) Not Detected *NA* [...] 07-01 GSAER Gram Positive Cocci in clusters [facility] Microscopic examination of blood, culture Staphylococcus coagulase negative Isolated from aerobe bottle only. Staphylococcus coagulase negative #2 Isolated from aerobe bottle only. 1 of 2 sets positive Organism is a potential contaminant. Clinical Significance undetermined. Please contact Microbiology if further work-up is required. [facility] Microscopic examination of blood, culture Blood Culture: No Growth at 5 days. [facility] Basophil percentageon 2021 Chloride [Moles/Vol] 98 mmol/L 98-107 [facility] Work Phone: Glucose [Mass/Vol] 238 mg/dL 74-106 [facility] Work Phone: Comment on above: Glucose result great er than or equal to 200 mg/dLsuggests DIABETES MELLITUS per A.D.A. criteria. Potassium [Moles/Vol] 4.5 mmol/L 3.5-5.1 [facility] Work Phone: Sodium [Moles/Vol] 135 mmol/L 136-145 [facility] Work Phone: Laboratory - Chemistry and C hemistry - challengeon 02-11-2022 CO2 [Moles/Vol] 25.0 mmol/L 21.0-32.0 [facility] Work Phone: Urea nitrogen/Creatinine [Mass ratio] 18.7 mg/mg 02-04 [facility] Work Phone: No Panel Informationon 02-11 Estimated GFR (MDRD) Amer 49 mL/min >60 [facility] Work Phone: Comment on above: GFR Calc Estimated GFR (MDRD) Non-Af Amer 40 mL/min >60 [facility] Work Phone: Comment on above: Non- GFR Calc Vitamin D 25-Hydroxy 34.7 ng/mL [facility] Work Phone: Comment on above: Vitamin D 25(OH) Sta tus Range Deficiency <20 ng/mL (50nmol/L) Insufficiency 20 - 30 ng/mL (50 - 75 nmol/L) Sufficiency 30 - 100 ng/mL (75 - 250 nmol/L) Toxicity >100 ng/mL (>250 nmol/L) Serum or plasma calcium jesus urement (mass/volume)on 02-11-2022 Calcium [Mass/Vol] 10.0 mg/dL 8.5-10.1 [facility] Work Phone: Serum or plasma creatinine m easurement (mass/volume)on 02-11-2022 Creatinine [Mass/Vol] 1.39 mg/dL 0.55-1.02 [facility] Work Phone: Comment on above: The validity of the calculated GFR & GFRAA in patients over 70 years has not been determined. Clinical correlation is essential. Serum or plasma urea nitroge n measurement (mass/volume)on 02-11-2022 Urea nitrogen [Mass/Vol] 26 mg/dL 7-18 [facility] Work Phone: Thin prep Papanicolaou smear with manual screeningon 02-11-2022 Thin prep Papanicolaou smear with manual screening 12 5-15 [facility] Work Phone: Glucose Glucometer (BldC) [M ass/Vol]on 12-10-2021 Glucose [Mass/Vol] 180 mg/dL 74-106 [facility] Work Phone: Comment on above: MANAGEMENT OF [...] ass/Vol]on 10-08-2021 Glucose [Mass/Vol] 169 mg/dL 74-106 [facility] Work Phone: Comment on above: MANAGEMENT OF [...] 27 ratio AO ADM SS LABORATORYOrdered By: [employer] SYSTEM on 04-29-2021 GFR 72 ml/min/1.73sqm Invalid Interpretation Code AO Chemistry S GFR Non- 60 ml/min/1.73sqm Invalid Interpretation Code AO Chemistry S LABORATORYOrdered By: Darlene Mckeon on 02-24-2021 Blood Glucose Testing Reason Routine (02/24/21 11:18 AM) [facility] Glucose [Mass/Vol] 189 mg/dL Invalid Interpretation Code 82 - 115 mg/dL [facility] Blood Glucose Testing Reason Routine (02/24/21 7:23 AM) [facility] Glucose [Mass/Vol] 180 mg/dL Invalid Interpretation Code 82 - 115 mg/dL [facility] LABORATORYOrdered By: Andreas Mata on 02-23-2021 Blood Glucose Testing Reason Routine (02/23/21 9:08 PM) [facility] Glucose [Mass/Vol] 119 mg/dL Invalid Interpretation Code 82 - 115 mg/dL [facility] LABORATORYOrdered By: [employer] on 02-22-2021 Albumin [Mass/Vol] 2.5 G/dL Invalid [...] 4.780 mIU/mL AH ADM SS LABORATORYOrdered By: [employer] SYSTEM on 02-19-2021 Base excess Calc (BldMV) [...] seconds AH Auto Coag SS LABORATORYOrdered By: [employer] SYSTEM on 02-18-2021 Platelets (Bld) [#/Vol] 172 [...] Code AH BB Auto SS LABORATORYOrdered By: [employer] SYSTEM on 02-02-2021 Albumin BCP dye [Mass/Vol] [...] height 175.[address] JULIO NICHOLAS DO [facility] 04-16-2024 09:27-0500 Body temperature 97.16 [degF] DR JULIO NICHOLAS DO [facility] 04-16-2024 09:27-0500 Body weight [address] JULIO NICHOLAS DO [facility] 04-16-2024 09:27-0500 Diastolic Blood Pressure Non-Invasive 60 mm[Hg] DR JULIO NICHOLAS DO [facility] 04-16-2024 09:27-0500 Heart rate 67 /min DR JULIO NICHOLAS DO [facility] 04-16-2024 09:27-0500 Respiratory rate 20 /min DR JULIO NICHOLAS DO [facility] 04-16-2024 09:27-0500 Systolic Blood Pressure Non-Invasive 122 mm[Hg] DR JULIO NICHOLAS DO [facility] 02-10-2024 15:44-0400 Blood Pressure Cuff Size DR JASON AZAR MD [facility] 02-10-2024 15:44-[address] JASON AZAR MD [facility] 02-10-2024 15:44-[address] JASON Baldwin MD [facility] 02-10-2024 15:44-0400 Body temperature 97.7 [degF] DR JASON AZAR MD [facility] 02-10-2024 15:44-0400 Diastolic Blood Pressure Non-Invasive 65 mm[Hg] DR JASON AZAR MD [facility] 02-10-2024 15:44-0400 Heart rate 84 /min DR JASON AZAR MD [address] [place] [address] 02-10-2024 15:44-0400 Respiratory rate 18 /min DR JASON AZAR MD [address] [place] [address] 02-10-2024 15:44-0400 Systolic Blood Pressure Non-Invasive 118 mm[Hg] DR JASON AZAR MD [address] [place] [address] 02-10-2024 10:02-0400 Heart rate 80 /min DR JASON AZAR MD [address] [place] [address] 02-10-2024 09:56-0400 Diastolic Blood Pressure Non-Invasive 59 mm[Hg] DR JASON AZAR MD [address] [place] [address] 02-10-2024 09:56-0400 Heart rate 86 /min DR JASON AZAR MD [address] [place] [address] 02-10-2024 09:56-0400 Systolic Blood Pressure Non-Invasive 131 mm[Hg] DR JASON AZAR MD [address] [place] [address] 02-10-2024 09:55-0400 Body temperature 97.52 [degF] DR JASON AZAR MD [address] [place] [address] 02-10-2024 09:55-0400 Diastolic Blood Pressure Non-Invasive 59 mm[Hg] DR JASON AZAR MD [address] [place] [address] 02-10-2024 09:55-0400 Heart rate 86 /min DR JASON AZAR MD [address] [place] [address] 02-10-2024 09:55-0400 Respiratory rate 18 /min DR JASON AZAR MD [address] [place] [address] 02-10-2024 09:55-0400 Systolic Blood Pressure Non-Invasive 131 mm[Hg] DR JASON AZAR MD [facility] 02-10-2024 07:13-0400 Body temperature 97.7 [degF] DR JASON AZAR MD [address] [place] [address] 02-10-2024 07:13-0400 Respiratory rate 18 /min DR JASON AZAR MD [address] [place] [address] 02-09-2024 21:58-0400 Blood Pressure Cuff Size DR JASON AZAR MD [address] [place] [address] 02-09-2024 21:58-[address] JASON AZAR MD [address] 02-09-2024 21:58-[address] JASON Baldwin MD [address] 02-09-2024 14:56-0400 Blood Pressure Cuff Size DR JASON AZAR MD [address] [place] [address] 02-09-2024 14:56-[address] JASON AZAR MD [address] [place] [address] 02-09-2024 14:56-[address] JASON Baldwin MD [address] [place] [address] 02-08-2024 10:01-0400 Heart rate 76 /min DR JASON AZAR MD [address] [place] [address] 02-07-2024 13:15-0400 Reason For Taking VItal Signs DR JASON AZAR MD [address] [place] [address] 02-07-2024 08:24-0400 Heart rate 76 /min DR JASON AZAR MD [address] [place] [address] 02-07-2024 07:13-0400 Reason For Taking VItal Signs DR JASON AZAR MD [address] [place] [address] 02-06-2024 21:45-0400 Reason For Taking VItal Signs DR JASON AZAR MD [facility] 02-06-2024 13:31-0400 Heart rate 81 /min DR JASON AZAR MD [facility] 02-06-2024 13:25-0400 Heart rate 83 /min DR JASON AZAR MD [facility] 02-06-2024 13:20-0400 Heart rate 86 /min DR JASON AZAR MD [address] [place] [address] 02-02-2024 11:51-0400 Body weight 43.64 kg/m2 DR JASON AZAR MD [address] [place] [address] 02-01-2024 20:01-0400 Body height 175.[address] JASON AZAR MD [address] [place] [address] 02-01-2024 20:01-0400 Body weight 134.[address] JASON AZAR MD [facility] 02-01-2024 20:01-0400 Body weight 43.64 kg/m2 DR JASON AZAR MD [facility] 02-01-2024 18:50-0400 Body temperature 98.24 [degF] LAURA NICKT DO [facility] 02-01-2024 18:50-0400 Diastolic Blood Pressure Non-Invasive 72 mm[Hg] LAURA FROMMELT DO [facility] 02-01-2024 18:50-0400 Heart rate 74 /min [facility] 02-01-2024 18:50-0400 Respiratory rate 18 /min LAURA FROMNIYAHT DO [facility] 02-01-2024 18:50-0400 Systolic Blood Pressure Non-Invasive 105 mm[Hg] LAURA FROMMELT DO [facility] 02-01-2024 15:22-0400 Diastolic Blood Pressure Non-Invasive 62 mm[Hg] LAURA FROMMELT DO [facility] 02-01-2024 15:22-0400 Heart rate 74 /min LAURA FROMMELT DO [facility] 02-01-2024 15:22-0400 Respiratory rate 16 /min LAURA FROMMELT DO [facility] 02-01-2024 15:22-0400 Systolic Blood Pressure Non-Invasive 104 mm[Hg] LAURA FROMMELT DO [facility] 02-01-2024 11:27-0400 Body height 175 cm LAURA FROMMELT DO [facility] 02-01-2024 11:27-0400 Body temperature 97.16 [degF] LAURA FROMMELT DO [facility] 02-01-2024 11:27-0400 Body weight 134 kg LAURA FROMMELT DO [facility] 02-01-2024 11:27-0400 Diastolic Blood Pressure Non-Invasive 57 mm[Hg] LAURA FROMMELT DO [facility] 02-01-2024 11:27-0400 Heart rate 76 /min LAURA FROMMELT DO [facility] 02-01-2024 11:27-0400 Respiratory rate 16 /min LAURA FROMMELT DO [facility] 02-01-2024 11:27-0400 Systolic Blood Pressure Non-Invasive 108 mm[Hg] LAURA FROMMELT DO [facility] 01-30-2024 10:46-[address] GIFTY FORD MD [facility] 01-30-2024 10:46-[address] GIFTY FORD MD [facility] 01-30-2024 10:46-0400 Body temperature 97.88 [degF] DR GIFTY FORD MD [facility] 01-30-2024 10:46-0400 Diastolic Blood Pressure Non-Invasive 81 mm[Hg] DR GIFTY FORD MD [facility] 01-30-2024 10:46-0400 Heart rate 66 /min DR GIFTY FORD MD [facility] 01-30-2024 10:46-0400 Respiratory rate 18 /min DR GIFTY FORD MD [facility] 01-30-2024 10:46-0400 Systolic Blood Pressure Non-Invasive 129 mm[Hg] DR GIFTY FORD MD [facility] 06-23-2023 19:02-0500 Diastolic Blood Pressure Non-Invasive 55 mm[Hg] LAURA ARRIAZA DO [facility] 06-23-2023 19:02-0500 Heart rate 79 /min LAURA FROMMELT DO [facility] 06-23-2023 19:02-0500 Respiratory rate 16 /min LAURA FROMNIYAHT DO [facility] 06-23-2023 19:02-0500 Systolic Blood Pressure Non-Invasive 110 mm[Hg] LAURA NICKT [facility] 06-23-2023 17:27-0500 Diastolic Blood Pressure Non-Invasive 62 mm[Hg] LAURA FROMMELT DO [facility] 06-23-2023 17:27-0500 Heart rate 79 /min LAURA FROMMELT DO [facility] 06-23-2023 17:27-0500 Mean blood pressure 75 mm[Hg] LAURA FROMMELT DO [facility] 06-23-2023 17:27-0500 Systolic Blood Pressure Non-Invasive 112 mm[Hg] LAURA FROMMELT DO [facility] 06-23-2023 16:23-0500 Heart rate 74 /min LAURA FROMMELT DO [facility] 06-23-2023 16:23-0500 Respiratory rate 18 /min LAURA FROMMELT DO [facility] 06-23-2023 16:14-0500 Respiratory rate 20 /min LAURA FROMMELT DO [facility] 06-23-2023 15:31-0500 Body temperature 97.88 [degF] LAURA FROMMELT DO [facility] 06-23-2023 15:31-0500 Body weight 146.3 kg LAURA FROMMELT DO [facility] 06-23-2023 15:31-0500 Diastolic Blood Pressure Non-Invasive 70 mm[Hg] LAURA FROMMELT DO [facility] 06-23-2023 15:31-0500 Systolic Blood Pressure Non-Invasive 126 mm[Hg] LAURA FROMMELT DO [facility] 11-04-2022 11:35-0400 Body temperature 97.88 [degF] AGNES PERLAER 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 [facility] 11-04-2022 11:35-0400 Diastolic Blood Pressure Non-Invasive 66 1 AGNES PERLAER 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 [facility] 11-04-2022 11:35-0400 Heart rate 64 /min AGNES PERLAER 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 [facility] 11-04-2022 11:35-0400 Reason For Taking VItal Signs AGNES PERLAER 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 [facility] 11-04-2022 11:35-0400 Respiratory rate 18 /min AGNES PERLAER 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 [facility] 11-04-2022 11:35-0400 Systolic Blood Pressure Non-Invasive 117 1 AGNES PERLAER 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 [facility] 11-04-2022 08:41-0400 Heart rate 72 /min AGNES PERLAER 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 [facility] 11-04-2022 08:04-0400 Body weight 140 kg AGNES PERLAER 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 [facility] 11-04-2022 06:04-0400 Body temperature 97.52 [degF] AGNES PERLAER 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 [facility] 11-04-2022 06:04-0400 Diastolic Blood Pressure Non-Invasive 65 1 AGNES PERLAER 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 [facility] 11-04-2022 06:04-0400 Heart rate 78 /min AGNES PERLAER 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 [facility] 11-04-2022 06:04-0400 Reason For Taking VItal Signs AGNES PERLAER 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 [facility] 11-04-2022 06:04-0400 Respiratory rate 18 /min AGNES PERLAER 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 [facility] 11-04-2022 06:04-0400 Systolic Blood Pressure Non-Invasive 148 1 AGNES PERLAER 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 [facility] 11-04-2022 05:00-0400 Body height 175.3 cm AGNES DUNCAN 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 [facility] 11-04-2022 05:00-0400 Body weight 138.4 kg AGNES DUNCAN 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 [facility] 11-04-2022 05:00-0400 Body weight 45.04 kg/m2 AGNES PERLAER 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 [facility] 11-04-2022 04:33-0400 Body temperature 98.06 [degF] AGNES PERLAER 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 [facility] 11-04-2022 04:33-0400 Diastolic Blood Pressure Non-Invasive 84 1 AGNES PERLAER 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 [facility] 11-04-2022 04:33-0400 Heart rate 70 /min AGNES PERLAER 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 [facility] 11-04-2022 04:33-0400 Respiratory rate 18 /min AGNES PERLAER 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 [facility] 11-04-2022 04:33-0400 Systolic Blood Pressure Non-Invasive 150 1 AGNES PERLAER 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 [facility] 11-04-2022 03:36-0400 Body weight 141.1 kg AGNES KAPPER 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 [facility] 11-03-2022 23:08-0400 Heart rate 73 /min AGNES KAPPER 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 [facility] 11-03-2022 23:08-0400 Reason For Taking VItal Signs AGNES KAPPER 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 [facility] 11-03-2022 19:32-0400 Heart rate 75 /min AGNES KAPPER 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 [facility] 11-03-2022 16:21-0400 Heart rate 82 /min AGNES KAPPER 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 [facility] 11-03-2022 11:25-0400 Heart rate 68 /min AGNES KAPPER 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 [facility] 11-03-2022 07:05-0400 Heart rate 75 /min AGNES KAPPER 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 [facility] 11-01-2022 20:35-0400 Blood Pressure Location AGNES KAPPER 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 [facility] 11-01-2022 20:35-0400 Blood Pressure Method AGNES KAPPER 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 [facility] 11-01-2022 18:40-0400 Blood Pressure Location AGNES KAPPER 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 [facility] 11-01-2022 18:40-0400 Blood Pressure Method AGNES KAPPER 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 [facility] 09-20-2022 14:28-0400 Blood Pressure Location EVAN BURT MD [facility] 09-20-2022 14:28-0400 Blood Pressure Method EVAN BURT MD [address] [place] [address] 09-20-2022 14:28-0400 Body temperature 97.88 [degF] EVAN BURT MD [address] [place] [address] 09-20-2022 14:28-0400 Diastolic Blood Pressure Non-Invasive 58 1 EVAN BURT MD [address] [place] [address] 09-20-2022 14:28-0400 Heart rate 90 /min EVAN BURT MD [address] [place] [address] 09-20-2022 14:28-0400 Respiratory rate 17 /min EVAN BURT MD [address] [place] [address] 09-20-2022 14:28-0400 Systolic Blood Pressure Non-Invasive 128 1 EVAN BURT MD [address] [place] [address] 09-20-2022 10:58-0400 Blood Pressure Location EVAN BURT MD [address] [place] [address] 09-20-2022 10:58-0400 Blood Pressure Method EVAN BURT MD [address] [place] [address] 09-20-2022 10:58-0400 Body temperature 97.7 [degF] EVAN BURT MD [address] [place] [address] 09-20-2022 10:58-0400 Diastolic Blood Pressure Non-Invasive 75 1 EVAN BURT MD [address] [place] [address] 09-20-2022 10:58-0400 Heart rate 95 /min EVAN BURT MD [address] [place] [address] 09-20-2022 10:58-0400 Respiratory rate 18 /min EVAN BURT MD [address] [place] [address] 09-20-2022 10:58-0400 Systolic Blood Pressure Non-Invasive 130 1 EVAN BURT MD [address] [place] [address] 09-20-2022 08:00-0400 Diastolic Blood Pressure Non-Invasive 88 1 EVAN BURT MD [facility] 09-20-2022 08:00-0400 Heart rate 104 /min EVAN BURT MD [facility] 09-20-2022 08:00-0400 Respiratory rate 16 /min EVAN BURT MD [facility] 09-20-2022 08:00-0400 Systolic Blood Pressure Non-Invasive 105 1 EVAN BURT MD [facility] 09-20-2022 00:36-0400 Body height 175.3 cm EVAN BURT MD [address] [place] [address] 09-20-2022 00:36-0400 Body weight 160.5 kg EVAN BUTR MD [address] 09-20-2022 00:36-0400 Body weight 52.23 kg/m2 EVAN BURT MD [facility] 09-19-2022 22:21-0400 Body temperature 98.24 [degF] DR XANDER GRIFFIN MD [facility] 09-19-2022 22:21-0400 diastolic 60 mm[Hg] DR XANDER GRIFFIN MD [facility] 09-19-2022 22:21-0400 Heart rate 91 /min DR XANDER GRIFFIN MD [facility] 09-19-2022 22:21-0400 Respiratory rate 16 /min DR XANDER GRIFFIN MD [facility] 09-19-2022 22:21-0400 systolic 129 mm[Hg] DR XANDER GRIFFIN MD [facility] 09-19-2022 22:06-0400 Diastolic Blood Pressure Non-Invasive [address] XANDER GRIFFIN MD [facility] 09-19-2022 22:06-0400 Heart rate 93 /min DR XANDER GRIFFIN MD [facility] 09-19-2022 22:06-0400 Respiratory rate 18 /min DR XANDER GRIFFIN MD [facility] 09-19-2022 22:06-0400 Systolic Blood Pressure Non-Invasive [address] XANDER GRIFFIN MD [facility] 09-19-2022 21:20-0400 Diastolic Blood Pressure Non-Invasive [address] XANDER GRIFFIN MD [facility] 09-19-2022 21:20-0400 Heart rate 91 /min DR XANDER GRIFFIN MD [facility] 09-19-2022 21:20-0400 Respiratory rate 16 /min DR XANDER GRIFFIN MD [facility] 09-19-2022 21:20-0400 Systolic Blood Pressure Non-Invasive [address] XANDER GRIFFIN MD [facility] 09-19-2022 20:30-0400 Body temperature 98.24 [degF] DR XANDER GRIFFIN MD [facility] 09-19-2022 19:50-0400 Reason For Taking VItal Signs DR XANDER GRIFFIN MD [facility] 09-19-2022 18:08-0400 Mean blood pressure 70 mm[Hg] DR XANDER GRIFFIN MD [facility] 09-19-2022 16:56-0400 Heart rate 82 /min DR XANDER GRIFFIN MD [facility] 09-19-2022 16:56-0400 Mean blood pressure 68 mm[Hg] DR XANDER GRIFFIN MD [facility] 09-19-2022 16:56-0400 Reason For Taking VItal Signs DR XANDER GRIFFIN MD [facility] 09-19-2022 15:45-0400 Mean blood pressure 56 mm[Hg] DR XANDER GRIFFIN MD [facility] 09-19-2022 15:27-0400 Heart rate 78 /min DR XANDER GRIFFIN MD [facility] 09-19-2022 15:27-0400 Reason For Taking VItal Signs DR XANDER GRIFFIN MD [facility] 09-19-2022 12:03-[address] XANDER GRIFFIN MD [facility] 09-19-2022 12:03-0400 Body temperature 98.78 [degF] DR XANDER GRIFFIN MD [facility] 09-19-2022 12:03-0400 Heart rate 91 /min DR XANDER GRIFFIN MD [facility] 07-09-2022 11:15-0400 Body temperature 97.52 [degF] 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 [facility] 07-09-2022 11:15-0400 Diastolic Blood Pressure Non-Invasive 82 1 MAKIJEFFREY TOUSSAINT 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 [facility] 07-09-2022 11:15-0400 Heart rate 58 /min 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 [facility] 07-09-2022 11:15-0400 Respiratory rate 20 /min 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 [facility] 07-09-2022 11:15-0400 Systolic Blood Pressure Non-Invasive 164 1 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 [facility] 07-09-2022 09:33-0400 Heart rate 88 /min 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 [facility] 07-09-2022 06:09-0400 Body temperature 97.7 [degF] MAKI GARCIAN 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 [facility] 07-09-2022 06:09-0400 Diastolic Blood Pressure Non-Invasive 70 1 MAKI GARCIAN 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 [facility] 07-09-2022 06:09-0400 Heart rate 74 /min MAKI GARCIAN 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 [facility] 07-09-2022 06:09-0400 Respiratory rate 20 /min 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 [facility] 07-09-2022 06:09-0400 Systolic Blood Pressure Non-Invasive 173 1 MAKI GARCIAN 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 [facility] 07-09-2022 03:36-0400 Body temperature 98.06 [degF] 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 [facility] 07-09-2022 03:36-0400 Diastolic Blood Pressure Non-Invasive 70 1 MAKI GARCIAN 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 [facility] 07-09-2022 03:36-0400 Heart rate 61 /min MAKI GARCIAN 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 [facility] 07-09-2022 03:36-0400 Respiratory rate 20 /min MAKI GARCIAJackeline 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 [facility] 07-09-2022 03:36-0400 Systolic Blood Pressure Non-Invasive 138 1 MAKIJEFFREY MCCLAINNEN 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 [facility] 07-08-2022 23:23-0400 Heart rate 70 /min MAKIJEFFREY GARCIAN 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 [facility] 07-08-2022 19:40-0400 Heart rate 70 /min MAKIJEFFREY MCCLAINNEN 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 [facility] 07-08-2022 15:39-0400 Heart rate 112 /min MAKI JOHNYNEN 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 [facility] 07-08-2022 12:20-0400 Heart rate 108 /min MAKI JOHNYNEN 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 [facility] 07-07-2022 15:20-0400 Heart rate 58 /min MAKIJEFFREY MCCLAINNEN 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 [facility] 07-06-2022 00:43-0400 Blood Pressure Cuff Size MAKIJEFFREY MCCLAINNEN 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 [facility] 07-06-2022 00:43-0400 Blood Pressure Location MAKIJEFFREY MCCLAINNEN 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 [facility] 07-06-2022 00:43-0400 Blood Pressure Method MAKIJEFFREY MCCLAINNEN 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 [facility] 07-05-2022 11:45-0400 Blood Pressure Cuff Size MAKI JOHNYNEN 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 [facility] 07-05-2022 11:45-0400 Blood Pressure Location MAKI JOHNYNEN 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 [facility] 07-05-2022 11:45-0400 Blood Pressure Method 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 [facility] 07-05-2022 11:45-0400 Body temperature 97.88 [degF] 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 [facility] 07-03-2022 14:24-0400 Reason For Taking VItal Signs 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 [facility] 07-03-2022 11:06-0400 Reason For Taking VItal Signs 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 [facility] 07-03-2022 06:54-0400 Blood Pressure Location 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 [facility] 07-03-2022 06:54-0400 Blood Pressure Method 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 [facility] 07-03-2022 06:54-0400 Reason For Taking VItal Signs 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 [facility] 07-02-2022 05:17-0400 Body weight 143.6 kg 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 [facility] 07-01-2022 20:58-0400 Body height 175.3 cm 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 [facility] 07-01-2022 20:58-0400 Body weight 147.2 kg 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 [facility] 07-01-2022 20:58-0400 Body weight 47.9 kg/m2 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 [facility] 07-01-2022 09:43-0400 Body height 175.3 cm 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 [facility] 07-01-2022 09:43-0400 Body weight 145 kg 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 [facility] 06-30-2022 02:29-0400 Diastolic Blood Pressure Non-Invasive [address] XANDER GRIFFIN MD [facility] 06-30-2022 02:29-0400 Heart rate 87 /min DR XANDER GRIFFIN MD [facility] 06-30-2022 02:29-0400 Respiratory rate 16 /min DR XANDER GRIFFIN MD [facility] 06-30-2022 02:29-0400 Systolic Blood Pressure Non-Invasive [address] XANDER GRIFFIN MD [facility] 06-30-2022 01:37-[address] XANDER GRIFFIN MD [facility] 06-30-2022 01:37-0400 Body temperature 100.4 [degF] DR XANDER GRIFFIN MD [facility] 06-30-2022 01:37-0400 Diastolic Blood Pressure Non-Invasive [address] XANDER GRIFFIN MD [facility] 06-30-2022 01:37-0400 Heart rate 94 /min DR XANDER GRIFFIN MD [facility] 06-30-2022 01:37-0400 Respiratory rate 16 /min DR XANDER GRIFFIN MD [facility] 06-30-2022 01:37-0400 Systolic Blood Pressure Non-Invasive [address] XANDER GRIFFIN MD [facility] 12-10-2021 11:09-0400 Body temperature 97.8 [degF] Dr. Agnes Hernandez Work Phone: [facility] Work Phone: 12-10-2021 11:09-0400 Diastolic blood pressure 46 mm[Hg] Dr. Agnes Hernandez Work Phone: [facility] Work Phone: 12-10-2021 11:09-0400 Heart rate 78 /min Dr. Agnes Hernandez Work Phone: [facility] Work Phone: 12-10-2021 11:09-0400 Inhaled oxygen flow rate 3 L/min Dr. Agnes Hernandez Work Phone: [facility] Work Phone: 12-10-2021 11:09-0400 Respiratory rate 16 /min Dr. Agnes Hernandez Work Phone: [facility] Work Phone: 12-10-2021 11:09-0400 SaO2% (BldA) [Mass fraction] 95 % Dr. Agnes Hernandez Work Phone: [facility] Work Phone: 12-10-2021 11:09-0400 Systolic blood pressure 108 mm[Hg] Dr. Agnes Hernandez Work Phone: [facility] Work Phone: 12-10-2021 08:04-0400 Body height 175.[address] Agnes Hernandez Work Phone: [facility] Work Phone: 12-10-2021 08:04-0400 Body mass index (BMI) [Ratio] 47.5 kg/m2 Dr. Agnes Hernandez Work Phone: [facility] Work Phone: 12-10-2021 08:04-0400 Body weight [address] Agnes Hernandez Work Phone: [facility] Work Phone: 11-03-2021 15:10-0400 Body height 175.[address] Agnes Hernandez Work Phone: [facility] Work Phone: 11-03-2021 15:10-0400 Body mass index (BMI) [Ratio] 48.4 kg/m2 Dr. Agnes Hernandez Work Phone: [facility] Work Phone: 11-03-2021 15:10-0400 Body temperature 97.7 [degF] Dr. Agnes Hernandez Work Phone: [facility] Work Phone: 11-03-2021 15:10-0400 Body weight 148.[address] Agnes Hernandez Work Phone: [facility] Work Phone: 11-03-2021 15:10-0400 Diastolic blood pressure 79 mm[Hg] Dr. Agnes Hernandez Work Phone: [facility] Work Phone: 11-03-2021 15:10-0400 Heart rate 70 /min Dr. Agnes Hernandez Work Phone: [facility] Work Phone: 11-03-2021 15:10-0400 Respiratory rate 18 /min Dr. Agnes Hernandez Work Phone: [facility] Work Phone: 11-03-2021 15:10-0400 SaO2% (BldA) [Mass fraction] 95 % Dr. Agnes Hernandez Work Phone: [facility] Work Phone: 11-03-2021 15:10-0400 Systolic blood pressure 137 mm[Hg] Dr. Agnes Hernandez Work Phone: [facility] Work Phone: 10-08-2021 11:50-0400 Body temperature 97.7 [degF] [facility] Work Phone: 10-08-2021 11:50-0400 Diastolic blood pressure 55 mm[Hg] [facility] Work Phone: 10-08-2021 11:50-0400 Heart rate 71 /min [facility] Work Phone: 10-08-2021 11:50-0400 Inhaled oxygen flow rate 2 L/min Dr. Agnes Hernandez Work Phone: [facility] Work Phone: 10-08-2021 11:50-0400 Respiratory rate 18 /min [facility] Work Phone: 10-08-2021 11:50-0400 SaO2% (BldA) [Mass fraction] 96 % [facility] Work Phone: 10-08-2021 11:50-0400 Systolic blood pressure 82 mm[Hg] [facility] Work Phone: 10-08-2021 08:49-0400 Body height 175.26 cm [facility] Work Phone: 10-08-2021 08:49-0400 Body mass index (BMI) [Ratio] 47.7 kg/m2 [facility] Work Phone: 10-08-2021 08:49-0400 Body weight 146.7 kg [facility] Work Phone: 07-21-2021 20:41-0400 Diastolic blood pressure 83 mm[Hg] DR ABDIFATAH ARANDA MD [facility] 07-21-2021 20:41-0400 Heart rate 82 /min DR ABDIFATAH ARANDA MD [facility] 07-21-2021 20:41-0400 Respiratory rate 18 /min DR ABDIFATAH ARANDA MD [facility] 07-21-2021 20:41-0400 Systolic blood pressure 152 mm[Hg] DR ABDIFATAH ARANDA MD [facility] 07-21-2021 19:15-0400 Heart rate 78 /min DR ABDIFATAH ARANDA MD [facility] 07-21-2021 19:15-0400 Respiratory rate 20 /min DR ABDIFATAH ARANDA MD [facility] 07-21-2021 19:03-0400 Heart rate 76 /min DR ABDIFATAH ARANDA MD [facility] 07-21-2021 19:03-0400 Respiratory rate 20 /min DR ABDIFATAH ARANDA MD [facility] 07-21-2021 15:36-0400 Body temperature 98.42 [degF] DR ABDIFATAH ARANDA MD [facility] 07-21-2021 15:36-0400 Diastolic blood pressure 75 mm[Hg] DR ABDIFATAH ARANDA MD [facility] 07-21-2021 15:36-0400 Mean blood pressure 102 mm[Hg] DR ABDIFATAH ARANDA MD [facility] 07-21-2021 15:36-0400 Systolic blood pressure 156 mm[Hg] DR ABDIFATAH ARANDA MD [facility] 07-11-2021 14:52-0400 Body temperature 98.06 [degF] SHABBIR MART MD [facility] 07-11-2021 14:52-0400 Diastolic blood pressure 81 mm[Hg] SHABBIR MART MD [facility] 07-11-2021 14:52-0400 Heart rate 83 /min SHABBIR MRAT MD [facility] 07-11-2021 14:52-0400 Respiratory rate 20 /min SHABBIR MART MD [facility] 07-11-2021 14:52-0400 Systolic blood pressure 163 mm[Hg] SHABBIR MART MD [facility] 04-30-2021 06:52-0500 Diastolic blood pressure 90 mm[Hg] EDIE HOUSTON MD [facility] 04-30-2021 06:52-0500 Heart rate 79 /min EDIE HOUSTON MD [facility] 04-30-2021 06:52-0500 Respiratory rate 22 /min EDIE HOUSTON MD [facility] 04-30-2021 06:52-0500 Systolic blood pressure 182 mm[Hg] EDIE HOUSTON MD [facility] 04-30-2021 05:45-0500 Diastolic blood pressure 94 mm[Hg] EDIE HOUSTON MD [facility] 04-30-2021 05:45-0500 Heart rate 86 /min EDIE HOUSTON MD [facility] 04-30-2021 05:45-0500 Respiratory rate 24 /min EDIE HOUSTON MD [facility] 04-30-2021 05:45-0500 Systolic blood pressure 164 mm[Hg] EDIE HOUSTON MD [facility] 04-30-2021 04:15-0500 Diastolic blood pressure 97 mm[Hg] EDIE HOUSTON MD [facility] 04-30-2021 04:15-0500 Heart rate 83 /min EDIE HOUSTON MD [facility] 04-30-2021 04:15-0500 Respiratory rate 20 /min EDIE HOUSTON MD [facility] 04-30-2021 04:15-0500 Systolic blood pressure 174 mm[Hg] EDIE HOUSTON MD [facility] 04-29-2021 22:23-0500 Reason For Taking VItal Signs EDIE HOUSTON MD [facility] 04-29-2021 19:30-0500 Reason For Taking VItal Signs EDIE HOUSTON MD [facility] 04-29-2021 17:17-0500 Heart rate 93 /min EDIE HOUSTON MD [facility] 04-29-2021 17:17-0500 Reason For Taking VItal Signs EDIE HOUSTON MD [facility] 04-29-2021 15:58-0500 Heart rate 94 /min EDIE HOUSTON MD [facility] 04-29-2021 15:08-0500 Body temperature 98.06 [degF] EDIE HOUSTON MD [facility] 04-29-2021 15:08-0500 Heart rate 87 /min EDIE HOUSTON MD [facility] 04-23-2021 13:04-0500 Body temperature 98.6 [degF] DR JULIO NICHOLAS DO [facility] 04-23-2021 13:04-0500 Diastolic blood pressure 84 mm[Hg] DR JULIO NICHOLAS DO [facility] 04-23-2021 13:04-0500 Heart rate 66 /min DR JULIO NICHOLAS DO [facility] 04-23-2021 13:04-0500 Mean blood pressure 113 mm[Hg] DR JULIO NICHOLAS DO [facility] 04-23-2021 13:04-0500 Respiratory rate 18 /min DR JULIO NICHOLAS DO [facility] 04-23-2021 13:04-0500 Systolic blood pressure 171 mm[Hg] DR JULIO NICHOLAS DO [facility] 02-24-2021 11:18-0500 Body temperature 97.88 [degF] DR DAYLIN COOK MD [facility] 02-24-2021 11:18-0500 Diastolic Blood Pressure NBP [address] DAYLIN COOK MD [facility] 02-24-2021 11:18-0500 Heart rate 78 /min DR DAYLIN COOK MD [facility] 02-24-2021 11:18-0500 Mean blood pressure 107 mm[Hg] DR DAYLIN COOK MD [facility] 02-24-2021 11:18-0500 Reason For Taking VItal Signs DR DAYLIN COOK MD [facility] 02-24-2021 11:18-0500 Respiratory rate 18 /min DR DAYLIN COOK MD [facility] 02-24-2021 11:18-0500 Systolic Blood Pressure NBP [address] DAYLIN COOK MD [facility] 02-24-2021 08:32-0500 Heart rate 91 /min DR DAYLIN COOK MD [facility] 02-24-2021 08:03-0500 Heart rate 95 /min DR DAYLIN COOK MD [facility] 02-24-2021 08:03-0500 Reason For Taking VItal Signs DR DAYLIN COOK MD [facility] 02-24-2021 07:23-0500 Body temperature 98.24 [degF] DR DAYLIN COOK MD [facility] 02-24-2021 07:23-0500 Diastolic Blood Pressure NBP [address] DAYLIN COOK MD [facility] 02-24-2021 07:23-0500 Heart rate 88 /min DR DAYLIN COOK MD [facility] 02-24-2021 07:23-0500 Mean blood pressure 95 mm[Hg] DR DAYLIN COOK MD [facility] 02-24-2021 07:23-0500 Reason For Taking VItal Signs DR DAYLIN COOK MD [facility] 02-24-2021 07:23-0500 Respiratory rate 18 /min DR DAYLIN COOK MD [facility] 02-24-2021 07:23-0500 Systolic Blood Pressure NBP [address] DAYLIN COOK MD [facility] 02-24-2021 04:11-0500 Body temperature 98.06 [degF] DR DAYLIN COOK MD [facility] 02-24-2021 04:11-0500 Diastolic Blood Pressure NBP [address] DAYLIN COOK MD [facility] 02-24-2021 04:11-0500 Mean blood pressure 86 mm[Hg] DR DAYLIN COOK MD [facility] 02-24-2021 04:11-0500 Respiratory rate 18 /min DR DAYLIN COOK MD [facility] 02-24-2021 04:11-0500 Systolic Blood Pressure NBP [address] DAYLIN COOK MD [facility] 02-23-2021 20:15-0500 Heart rate 96 /min DR DAYLIN COOK MD [facility] 02-23-2021 08:57-0500 Heart rate 93 /min DR DAYLIN COOK MD [facility] 02-23-2021 07:50-0500 Heart rate 98 /min DR DAYLIN COOK MD [facility] 02-23-2021 04:15-0500 Heart rate 90 /min DR DAYLIN COOK MD [facility] 02-22-2021 07:15-0500 Heart rate 77 /min DR DAYLIN COOK MD [facility] 02-22-2021 04:41-0500 Body temperature 96.98 [degF] DR DAYLIN COOK MD [facility] 02-21-2021 05:03-0400 Body temperature 97.7 [degF] DR DAYLIN COOK MD [facility] 02-18-2021 17:45-0400 Diastolic blood pressure 59 mm[Hg] DR DAYLIN COOK MD [facility] 02-18-2021 17:45-0400 Mean blood pressure 71 mm[Hg] DR DAYLIN COOK MD [facility] 02-18-2021 17:45-0400 Systolic blood pressure 92 mm[Hg] DR DAYLIN COOK MD [facility] 02-18-2021 17:30-0400 Diastolic blood pressure 62 mm[Hg] DR DAYLIN COOK MD [facility] 02-18-2021 17:30-0400 Mean blood pressure 73 mm[Hg] DR DAYLIN COOK MD [facility] 02-18-2021 17:30-0400 Systolic blood pressure 92 mm[Hg] DR DAYLIN COOK MD [facility] 02-18-2021 17:00-0400 Diastolic blood pressure 56 mm[Hg] DR DAYLIN COOK MD [facility] 02-18-2021 17:00-0400 Mean blood pressure 72 mm[Hg] DR DAYLIN COOK MD [facility] 02-18-2021 17:00-0400 Systolic blood pressure 109 mm[Hg] DR DAYLIN COOK MD [facility] 02-18-2021 11:50-0400 Body temperature 98.24 [degF] DR DAYLIN COOK MD [facility] 02-18-2021 11:45-0400 Body temperature 98.19 [degF] DR DAYLIN COOK MD [facility] 02-18-2021 11:40-0400 Body temperature 98.13 [degF] DR DAYLIN COOK MD [facility] 02-18-2021 06:10-0400 Body height 175.[address] DAYLIN COOK MD [facility] 02-18-2021 06:10-0400 Body weight 141.[address] DAYLIN COOK MD [facility] 02-18-2021 06:10-0400 Body weight 46.05 kg/m2 DR DAYLIN COOK MD [facility] 02-18-2021 06:10-0400 diastolic 79 mm[Hg] DR DAYLIN COOK MD [facility] 02-18-2021 06:10-0400 systolic 120 mm[Hg] DR DAYLIN COOK MD [facility] 02-02-2021 13:23-0400 Body height [address] DAYILN COOK MD [facility] 02-02-2021 13:23-0400 Body temperature 98.06 [degF] DR DAYLIN COOK MD [facility] 02-02-2021 13:23-0400 Body weight 139.[address] DAYLIN COOK MD [facility] 02-02-2021 13:23-0400 Body weight 48.81 kg/m2 DR DAYLIN COOK MD [facility] 02-02-2021 13:23-0400 diastolic 69 mm[Hg] DR DAYLIN COOK MD [facility] 02-02-2021 13:23-0400 Heart rate 65 /min DR DAYLIN COOK MD [facility] 02-02-2021 13:23-0400 systolic 109 mm[Hg] DR DAYLIN COOK MD [facility] Encounters Encounter Date Encounter Type Care Provider Facility Start: 09-27-2024 ambulatory Agnes Pepperkurt Facility :[facility] Start: 09-21-2024 ambulatory Mj Mc Facility:[facility] Start: 09-20-2024 ambulatory Agnes Awad Facility :[facility] Start: 08-24-2024 End: 08-24-2024 ambulatory Agnes M Anmol Facility:[facility] Start: 08-22-2024 End: 08-22-2024 ambulatory Agnes Hernandez Facility:[facility] Start: 08-10-2024 ambulatory AGNES AWAD DO Facil ity:A Start: 08-08-2024 ambulatory AGNES AWAD DO Facil ity:[facility] Start: 08-01-2024 End: 08-01-2024 ambulatory AGNES AWAD DO Facility:[facility] Start: 08-01-2024 End: 08-01-2024 Patient encounter procedure AMALIA BARRERA MD [facility] Start: 06-22-2024 End: 06-22-[address] AGNES HERNANDEZ DO Facility:[facility] Start: 05-15-2024 ambulatory Agnes Hernandez Facility:[facility] Start: 04-17-2024 End: 04-17-[address] AGNES HERNANDEZ DO Facility:[facility] Start: 04-17-2024 End: 04-17-2024 Patient encounter procedure JENNI MRACUS MD [facility] Start: 04-16-2024 End: 04-16-2024 Emergency department patient visit DR JULIO NICHOLAS DO [facility] Start: 04-04-2024 End: 04-04-2024 ambulatory AMALIA BARRERA MD Facility:[facility] Start: 04-04-2024 End: 04-04-2024 Patient encounter procedure AMALIA BARRERA MD [facility] Start: 04-02-2024 End: 04-02-2024 ambulatory AMALIA BARRERA MD Facility:[facility] Start: 04-02-2024 End: 04-02-2024 Patient encounter procedure AMALIA BARRERA MD [facility] Start: 03-20-2024 End: 03-20-2024 ambulatory Agnes Hernandez [facility] Start: 03-19-2024 End: 03-23-[address] AGNES HERNANDEZ DO Facility:[facility] Start: 03-19-2024 End: 03-23-[address] CESAR WOO MD [facility] Start: 03-12-2024 End: 03-16-[address] AGNES HERNANDEZ DO Facility:[facility] Start: 03-12-2024 End: 03-16-[address] CESAR WOO MD [facility] Start: 03-08-2024 End: 03-12-[address] AGNES HERNANDEZ DO Facility:[facility] Start: 03-08-2024 End: 03-12-[address] CESAR WOO MD [facility] Start: 03-05-2024 End: 03-09-[address] AGNES HERNANDEZ DO Facility:[facility] Start: 03-05-2024 End: 03-09-[address] CESAR WOO MD [facility] Start: 02-28-2024 End: 03-03-[address] AGNES HERNANDEZ DO Facility:[facility] Start: 02-28-2024 End: 03-03-[address] CESAR WOO MD [facility] Start: 02-20-2024 End: 02-24-[address] AGNES HERNANDEZ DO Facility:[facility] Start: 02-20-2024 End: 02-24-[address] CESAR WOO MD [facility] Start: 02-15-2024 End: 02-15-2024 ambulatory Agnes Malys Facility:[facility] Start: 02-13-2024 End: 02-17-[address] AGNES HERNANDEZ DO Facility:[facility] Start: 02-13-2024 End: 02-17-[address] CESAR WOO MD [facility] Start: 02-11-2024 End: 03-28-[address] AGNES HERNANDEZ DO Facility:[facility] Start: 02-06-2024 ambulatory Agnes Malys Facility:[facility] Start: 02-01-2024 End: 02-10-2024 Evaluation and management of inpatient DR JASON AZAR MD [facility] Start: 02-01-2024 End: 02-01-2024 Emergency department patient visit LAURA ARRIAZA [facility] Start: 01-30-2024 End: 01-30-2024 Emergency department patient visit DR GIFTY FORD MD [facility] Start: 01-05-2024 End: 01-05-2024 ambulatory Agnes Malys Facility:[facility] Start: 12-10-2023 End: 12-10-2023 Emergency department patient visit Agnes Malys Facility:[facility] Start: 12-06-2023 End: 12-06-2023 ambulatory JENNI MARCUS MD Facility:[facility] Start: 11-22-2023 ambulatory Agnes Malys Facility:[facility] Start: 11-22-2023 End: 11-22-2023 ambulatory Agnes Malys Facility:[facility] Start: 11-22-2023 End: 11-22-2023 ambulatory Ean Alfonso Facility:[facility] Start: 10-03-2023 End: 10-03-2023 ambulatory Agnes Dagojesse Facility:[facility] Start: 07-07-2023 End: 07-07-2023 ambulatory JENNI MARCUS MD Facility:[facility] Start: 06-23-2023 End: 06-23-2023 Emergency department patient visit LAURA ARRIAZA DO [facility] Start: 05-18-2023 End: 05-18-2023 ambulatory KENTRELL DEAN MD Facility:[facility] Start: 05-18-2023 End: 05-18-2023 Patient encounter procedure KENTRELL DEAN MD [facility] Start: 02-03-2023 End: 02-03-2023 ambulatory JENNI MARCUS MD Facility:[facility] Start: 11-01-2022 End: 11-04-2022 Evaluation and management of inpatient AGNES Papo DUNCAN 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 [facility] Start: 10-27-2022 End: 10-27-2022 Patient encounter procedure STEPHANIE ORTIZ 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 [facility] Start: 10-07-2022 End: 10-07-[address] AGNES HERNANDEZ DO [facility] Start: 09-19-2022 End: 09-20-2022 Observation EVNA BURT MD [facility] Start: 09-19-2022 End: 09-19-2022 Emergency department patient visit DR XANDER GRIFFIN MD [facility] Start: 07-01-2022 End: 07-09-2022 Evaluation and management of inpatient 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 Agnes Hernandez Work Phone: [facility] Work Phone: Start: 02-11-2022 End: 02-11-[address] Agens Hernandez Work Phone: [facility] Start: 12-10-2021 End: 12-10-2021 Admission to same day surgery center Dr. Agnes Hernandez Work Phone: [facility] Start: 12-10-2021 End: 12-10-[address] Agnes Hernandez Work Phone: [facility] Work Phone: Start: 11-16-2021 End: 11-16-[address] Agnes Hernandez Work Phone: [facility]-Outpatient Breast Imaging Start: 11-03-2021 End: 11-03-[address] Agnes Hernandez Work Phone: [facility] Start: 10-21-2021 End: 10-21-[address] AGNES HERNANDEZ DO [facility] Start: 10-08-2021 End: 10-08-2021 [facility] Start: 07-21-2021 End: 07-21-2021 Emergency department patient visit DR ABDIFATAH ARANDA MD [facility] Start: 07-11-2021 End: 07-11-2021 Emergency department patient visit SHABBIR MART MD [facility] Start: 04-29-2021 End: 04-30-2021 Emergency department patient visit EDIE HOUSTON MD [facility] Start: 04-23-2021 End: 04-23-2021 Emergency department patient visit DR JULIO NICHOLAS DO [facility] Start: 03-09-2021 End: 03-09-2021 Patient encounter procedure EVENS MCGARRY 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 [facility] Start: 02-18-2021 End: 02-24-2021 Evaluation and management of inpatient DR DAYLIN COOK MD [facility] Start: 02-02-2021 End: 02-02-[address] DAYLIN COOK MD [facility] Start: 02-02-2021 End: 02-02-[address] DAYLIN COOK MD [facility] Procedures Date Procedure Procedure Detail Performing Clinician [...] & nrv head neck&posterior trunk ANESTH HEAD/NECK/PTRUNK [facility] Work Phone: Start: 12-10-2021 Prq impltj neurostim eltrd sacral nrve w/imaging IMPLANT NEUROELECTRODES [facility] Work Phone: Start: 12-10-2021 Patient discharge [facility] Work Phone: Start: 10-08-2021 Anesthesia lumbar region nos ANESTH SPINE CORD SURGERY [facility] Work Phone: Start: 10-08-2021 Prq impltj neurostim eltrd sacral nrve w/imaging IMPLANT NEUROELECTRODES [facility] Work Phone: Start: 10-08-2021 Patient discharge [facility] Work Phone: Patient referral [facility] Work Phone: Immunizations Immunization Date Immunization Notes Care Provider Fa brittaney 01-12-2023 RSV vaccine preF3, recombinant AMALIA BARRERA MD [facility] 01-12-2023 SARS-CoV-2 (COVID-19 ) [id number] AMALIA BARRERA MD [facility] 02-02-2022 tetanus toxoid, redu maida diphtheria toxoid, and acellular pertussis vaccine, adsorbed 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 [facility] 02-02-2022 zoster vaccine recombinant 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 [facility] 07-27-2021 pneumococcal conjuga te vaccine, 13 valent 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 [facility] 11-15-2020 SARS-CoV-2 (COVID-19 ) mRNA-[address] DAYLIN COOK MD [facility] 10-17-2020 SARS-CoV-2 (COVID-19 ) mRNA-[address] DAYLIN COOK MD [facility] 06-19-2020 tetanus toxoid, redu maida diphtheria toxoid, and acellular pertussis vaccine, adsorbed; Translations: [Boostrix (Tdap)] DR DAYLIN COOK MD [facility] 01-23-1997 hepatitis B vaccine, adult dosage DR DAYLIN COOK MD [facility] 06-27-1996 hepatitis B vaccine, adult dosage DR DAYLIN COOK MD [facility] 05-09-1996 hepatitis B vaccine, adult dosage DR DAYLIN COOK MD [facility] Payers Date Payer Category Payer Unknown [id number] 2024 Unknown [id number] 2023 Medicaid [id number] 2022 Medicaid [id number] 2b [id number] 2016 Self-pay [id number] 2016 Unknown [id number] [facility] [id number] 2010 Medicare [id number] 405 [id number] 1955 Unknown [id number] 2.16.8 40.1.626489.3.579.2. 1955 Unknown [id number] 2.16.8 40.1.082156.3.579.2. 1955 Unknown [id number] 2.16.8 40.1.780856.3.579.2. 1955 Unknown [id number] 2.16.8 40.1.247216.3.579.2. 1955 Unknown [id number] 2.16.8 40.1.226905.3.579.2. 1955 Unknown [id number] 2.16.8 40.1.473218.3.579.2. 1955 Unknown [id number] 2.16.8 40.1.449387.3.579.2. 1955 Unknown [id number] 2.16.8 40.1.273639.3.579.2. 1955 Unknown [id number] 2.16.8 40.1.302519.3.579.2. 1955 Unknown [id number] 2.16.8 40.1.346250.3.579.2. 1955 Unknown [id number] 2.16.8 40.1.245150.3.579.2. 1955 Unknown [id number] 2.16.8 40.1.766312.3.579.2. 1955 Unknown [id number] 2.16.8 40.1.838125.3.579.2. 1955 Unknown [id number] 2.16.8 40.1.020673.3.579.2. 1955 Unknown [id number] 2.16.8 40.1.725760.3.579.2. 1955 Unknown [id number] 2.16.8 40.1.413799.3.579.2. 1955 Unknown [id number] 2.16.8 40.1.711488.3.579.2. 1955 Unknown [id number] 2.16.8 40.1.684503.3.579.2. 1955 Unknown [id number] 2.16.8 40.1.883995.3.579.2. 1955 Unknown [id number] 2.16.8 40.1.148591.3.579.2. 1955 Unknown [id number] 2.16.8 40.1.007393.3.579.2.627 1955 Unknown [id number] 2.16.8 40.1.481800.3.579.2.627 1955 Unknown [id number] 2.16.8 40.1.792055.3.579.2.627 1955 Unknown [id number] 2.16.8 40.1.000432.3.579.2.62 1955 Unknown [id number] 2.16.8 40.1.577083.3.579.2.62 1955 Unknown [id number] 2.16.8 40.1.475075.3.579.2.62 1955 Unknown [id number] 2.16.8 40.1.238324.3.579.2.627 1955 Unknown [id number] 2.16.8 40.1.798195.3.579.2.627 Unknown [id number] 2.16.8 40.1.436459.3.579.2.462 Unknown [id number] 2.16.8 40.1.924653.3.579.2.462 Unknown [id number] 2.16.8 40.1.022892.3.579.2.462 Unknown [id number] 2.16.8 40.1.629682.3.579.2.462 Unknown [id number] 2.16.8 40.1.947558.3.579.2.462 Unknown [id number] 2.16.8 40.1.238009.3.579.2.462 Unknown [id number] 2.16.8 40.1.971951.3.579.2.462 Unknown [id number] 2.16.8 40.1.792883.3.579.2.462 Unknown [id number] 2.16.8 40.1.309979.3.579.2.462 Unknown [id number] 2.16.8 40.1.046028.3.579.2.462 Unknown [id number] 2.16.8 40.1.050474.3.579.2.462 Unknown [id number] 2.16.8 40.1.440168.3.579.2.462 Unknown [id number] 2.16.8 40.1.407311.3.579.2.462 Unknown [id number] 2.16.8 40.1.982525.3.579.2.462 Unknown [id number] 2.16.8 40.1.627915.3.579.2.462 Unknown [id number] 2.16.8 40.1.981442.3.579.2.462 Social History Date Type Detail Facility Start: 09-14-2018 Ex-smoker (finding) [facility] Sex Assigned At [facility] Start: 10-01-2021 End: 03-03-2022 Tobacco smoking status ARIS Unknown if ever smoked [facility] Work Phone: Start: 07-01-2020 None [facility] Work Phone: Start: 07-01-2020 With Family [facility] Work Phone: Start: 07-01-2020 Non-smoker [facility] Work Phone: Start: 1955 Sex Assigned At Female [facility] Work Phone: Start: 06-08-2013 Sex Female (finding) [facility] Start: 05-17-2024 Tobacco smoking status Light t obacco smoker (finding) [facility] [place] [facility] Procedure Code Equipment Code Equipment Origin al Text Equipment Identifier Dates BD UF MINI PEN NEEDLE [id number], use five times a day with INSULIN and if needed Start: 02-03-2023 FREESTYLE LITE T EST STRIP, use 1 TEST STRIP to TEST BLOOD SUGAR four times a day Start: 02-03-2023 BD UF MINI PEN NEEDLE [id number], use five times a day with INSULIN and if needed Start: 02-03-2023 FREESTYLE LITE T EST STRIP, use 1 TEST STRIP to TEST BLOOD SUGAR four times a day Start: 02-03-2023 BD UF MINI PEN NEEDLE [id number], use five times a day with INSULIN and if needed Start: 02-03-2023 FREESTYLE LITE T EST STRIP, use 1 TEST STRIP to TEST BLOOD SUGAR four times a day Start: 02-03-2023 BD UF MINI PEN NEEDLE [id number], use five times a day with INSULIN and if needed Start: 02-03-2023 FREESTYLE LITE T EST STRIP, use 1 TEST STRIP to TEST BLOOD SUGAR four times a day Start: 02-03-2023 BD UF MINI PEN NEEDLE [id number], use five times a day with INSULIN and if needed Start: 02-03-2023 FREESTYLE LITE T EST STRIP, use 1 TEST STRIP to TEST BLOOD SUGAR four times a day Start: 02-03-2023 BD UF MINI PEN NEEDLE [id number], use five times a day with INSULIN and if needed Start: 02-03-2023 FREESTYLE LITE T EST STRIP, use 1 TEST STRIP to TEST BLOOD SUGAR four times a day Start: 02-03-2023 BD UF MINI PEN NEEDLE [id number], use five times a day with INSULIN and if needed Start: 02-03-2023 FREESTYLE LITE T EST STRIP, use 1 TEST STRIP to TEST BLOOD SUGAR four times a day Start: 02-03-2023 BD UF MINI PEN NEEDLE [id number], use five times a day with INSULIN and if needed Start: 02-03-2023 FREESTYLE LITE T EST STRIP, use 1 TEST STRIP to TEST BLOOD SUGAR four times a day Start: 02-03-2023 BD UF MINI PEN NEEDLE [id number], use five times a day with INSULIN and if needed Start: 02-03-2023 FREESTYLE LITE T EST STRIP, use 1 TEST STRIP to TEST BLOOD SUGAR four times a day Start: 02-03-2023 BD UF MINI PEN NEEDLE [id number], use five times a day with INSULIN and if needed Start: 02-03-2023 FREESTYLE LITE T EST STRIP, use 1 TEST STRIP to TEST BLOOD SUGAR four times a day Start: 02-03-2023 BD UF MINI PEN NEEDLE [id number], use five times a day with INSULIN and if needed Start: 02-03-2023 FREESTYLE LITE T EST STRIP, use 1 TEST STRIP to TEST BLOOD SUGAR four times a day Start: 02-03-2023 BD UF MINI PEN NEEDLE [id number], use five times a day with INSULIN and if needed Start: 02-03-2023 FREESTYLE LITE T EST STRIP, use 1 TEST STRIP to TEST BLOOD SUGAR four times a day Start: 02-03-2023 BD UF MINI PEN NEEDLE [id number], use five times a day with INSULIN and if needed Start: 02-03-2023 FREESTYLE LITE T EST STRIP, use 1 TEST STRIP to TEST BLOOD SUGAR four times a day Start: 02-03-2023 BD UF MINI PEN NEEDLE [id number], use five times a day with INSULIN and if needed Start: 02-03-2023 FREESTYLE LITE T EST STRIP, use 1 TEST STRIP to TEST BLOOD SUGAR four times a day Start: 02-03-2023 BD UF MINI PEN NEEDLE [id number], use five times a day with INSULIN and if needed Start: 02-03-2023 FREESTYLE LITE T EST STRIP, use 1 TEST STRIP to TEST BLOOD SUGAR four times a day Start: 02-03-2023 BD UF MINI PEN NEEDLE [id number], use five times a day with INSULIN and if needed Start: 02-03-2023 FREESTYLE LITE T EST STRIP, use 1 TEST STRIP to TEST BLOOD SUGAR four times a day Start: 02-03-2023 BD UF MINI PEN NEEDLE [id number], use five times a day with INSULIN and if needed Start: 02-03-2023 FREESTYLE LITE T EST STRIP, use 1 TEST STRIP to TEST BLOOD SUGAR four times a day Start: 02-03-2023 BD UF MINI PEN NEEDLE [id number], use five times a day with INSULIN and if needed Start: 02-03-2023 FREESTYLE LITE T EST STRIP, use 1 TEST STRIP to TEST BLOOD SUGAR four times a day Start: 02-03-2023 Goals Date Patient Goal Desired Activity /State Functional Status Date Assessment Result Facility 04-16-2024 Functional Status Up ad sarah [facility] 02-10-2024 Functional Status Room check performed [facility] 02-10-2024 Functional Status [facility] 02-10-2024 Functional Status [facility] 02-10-2024 Functional Status [facility] 02-10-2024 Functional Status CHG bath [facility] 02-10-2024 Functional Status 7am-7pm [facility] 02-10-2024 Functional Status [facility] 02-10-2024 Functional Status Sequential Com pression Device bilateral knee high applied/on [facility] 02-10-2024 [facility] Functional Status Activity [facility] 02-09-2024 Functional Status [facility] 02-09-2024 Functional Status [facility] 02-09-2024 Functional Status [facility] 02-09-2024 Functional Status [facility] 02-09-2024 Functional Status [facility] 02-09-2024 Functional Status [facility] 02-08-2024 Functional Status [facility] 02-08-2024 Functional Status [facility] 02-08-2024 Functional Status Reason SCD Rem braulio/Off Patient refused [facility] 02-08-2024 Functional Status Done [facility] 02-08-2024 Functional Status Hospital bed [facility] 02-07-2024 Functional Status [facility] 02-07-2024 Functional Status Supervision [facility] 02-07-2024 Functional Status [facility] 02-07-2024 Functional Status Done [facility] 02-07-2024 Functional Status aide assist 2- 3 hrs MWF for housekeeping and showers [facility] 02-06-2024 Functional Status NPO Status Maintained [facility] 02-06-2024 Functional Status [facility] 02-05-2024 Functional Status [facility] 02-05-2024 Functional Status [facility] 02-04-2024 Functional Status [facility] 02-03-2024 Functional Status [facility] 02-02-2024 Functional Status heel(s)s elevated [facility] 02-01-2024 Functional Status Sensory Defici ts Hearing deficit, left ear, Hearing deficit, right ear [facility] 02-01-2024 Functional Status Standard Safet y ID band on, Allergy Band on, Call device within reach, Bed in low position, Wheels locked, Upper/Half-Length side-rails up, Phone within reach, personal items within reach [facility] 01-30-2024 Functional Status ID band on, Allergy Band on, Call device within reach, Bed in low position, Wheels locked, Upper/Half-Length side-rails up, Safety level maintained [facility] 06-23-2023 Functional Status Assistive Device None A [facility] 06-23-2023 Functional Status Independent [facility] 11-04-2022 Functional Status Safety Checks q2hrs Performed Other: 7am-6pm [facility] 11-04-2022 Functional Status Supervised 1 [facility] 11-04-2022 Functional Status Identified as high risk, Fall ID band on, Room located near nursing station, Door open, Non-Slip footwear [facility] 11-04-2022 Functional Status [facility] 11-04-2022 Functional Status [facility] 11-03-2022 Functional Status Mod I [facility] 11-02-2022 Functional Status Dinner Percent 100 [facility] 11-02-2022 Functional Status Single level home [facility] 11-02-2022 Functional Status Mod I [facility] 11-02-2022 Functional Status Demonstrates C orrect Call Light Use Yes [facility] 11-01-2022 Functional Status Independent [facility] 09-20-2022 Functional Status Repositions self [facility] 09-20-2022 Functional Status [facility] 09-20-2022 Functional Status Supervised [facility] 09-20-2022 Functional Status [facility] 09-20-2022 Functional Status Sensory Deficits None A [facility] 09-19-2022 Functional Status Room check performed [facility] 09-19-2022 Functional Status [facility] Functional Status Room check performed [facility] 07-09-2022 Functional Status [place] [facility] 07-09-2022 Functional Status SCD Removed/Of f bilateral knee high [facility] 07-09-2022 Functional Status [place] telles [facility] 07-08-2022 Functional Status [place] [facility] 07-08-2022 Functional Status [place] [facility] 07-08-2022 Functional Status Reason SCD Rem braulio/Off Patient refused [facility] 07-08-2022 Functional [facility] 07-08-20[facility] Functional Status [place] [facility] 07-07-2022 Functional Status Moderate assistance 1 A [facility] 07-06-2022 Functional Status [facility] [place] 07-05-2022 Functional Status Supervised 7 [place] benavid[facility]al [facility] [place] 07-05-2022 Functional Status 75 [facility] [place] 07-05-2022 Functional Status Independent [facility] [place] 07-05-2022 Functional Status [facility] [place] 07-04-2022 Functional Status [facility] [place] 07-04-2022 Functional Status [facility] [place] 07-04-2022 Functional Status 100 [facility] benavidestal [facility] [place] 07-03-2022 Functional Status [facility] [place] 07-03-2022 Functional Status [facility] [place] 07-02-2022 Functional Status [facility] [place] 07-02-2022 Functional Status [facility] [place] 07-02-2022 Functional Status Apartment [facility]Ala [facility] [place] 07-02-2022 Functional Status [facility] [place] 07-01-2022 Functional Status Sensory Deficits None A [facility] 07-01-2022 Functional Status Poor [facility] 06-30-2022 Functional Status Independent [facility] [place] 06-30-2022 Functional Status Awake [facility] 07-21-2021 Functional Status [facility] [place] [facility] [place] [facility] 07-21-2021 Functional Status [facility] [facility] [place] [facility] Mental Status Date Assessment Result Facility 04-16-2024 Mental Status Oriented x 4 [facility] 02-10-2024 Mental Status Oriented x 4 [facility] 02-10-2024 [facility] 02-09-[facility]24 [facility]09[facility] Status [facility] 02-01-2024 Mental Status Orientation Oriented x 4 [facility] 01-30-2024 Mental Status Oriented x 4 [facility] 06-23-2023 Mental Status Orientation Oriented x 4 [facility] 06-23-2023 Mental Status [facility] 11-04-2022 Mental Status Orientation Asse ssment Oriented x 4 [facility] 11-04-2022 Mental Status Oriented x 4 [facility] 11-03-2022 Mental Status [facility] 11-03-2022 [facility] Status [facility] 09-20-2022 Mental Status Orientation Oriented x 4 [facility] 09-20-2022 Mental Status [facility] 09-20-2022 Mental Status [facility] 09-19-2022 Mental Status Orientation Asse ssment Oriented x 4 [facility] 09-19-2022 Mental Status Oriented x 4, Follows simple commands [facility] 09-19-2022 Mental Status [facility] 07-09-2022 Mental Status Orientation Oriented x 4 [facility] 07-09-2022 Mental Status [facility] 07-08-2022 Mental Status [facility] 07-08-2022 Mental Status [facility] 07-08-2022 Mental Status [facility] 06-30-2022 Mental Status Orientation Oriented x 4 [facility] 06-30-2022 Mental Status [facility] 12-10-2021 Cognitive function Voice/Name [facility] Work Phone: 10-08-2021 Cognitive function Voice/Name [facility] Work Phone: 07-21-2021 Mental Status [facility] 07-21-2021 Mental Status [facility] Clinical Notes 02-24-2021 to 04-16-2024 Note Date [...] relieve symptoms. These may include: Prescription and nrnz-bvb-zczbaqu pain medicines. These help relieve pain, swelling, [...] foot Problems controlling your bladder or bowel 9944-16[address] [employer] [address] [place] [address]. All rights reserved. This information is not [...] or swelling over your back or spine 1409-57[address] [employer] [address] [place] [address], [place] [address]. All rights reserved. This information is not intended as a substitute for professional medical care. Always follow your healthcare professional's instructions. Follow Up Care 04/16/2024 09:14:55 With:Pain management as scheduled Address: When: Unknown [facility] 04-16-2024 Note Discharge Instructions Thank you for allowing [facility] to assist you with your healthcare needs. [...] Misc Medication (BD UF MINI PEN NEEDLE [id number]) use five times a day with INSULIN [...] may report side effects to FDA at 1-198-NOL-0196. What other drugs will affect diclofenac topical? [...] may affect diclofenac. This includes prescription and kuof-vwf-mijxrkn medicines, vitamins, and herbal products. Not all [...] to ensure that the information provided by [employer] ('[employer]') is accurate, up-to-date, and complete, but no guarantee is made to that effect. Drug information contained herein may be time sensitive. judge.me information has been compiled for use by healthcare practitioners and consumers in the [place] and therefore judge.me does not warrant that uses outside of the [place] are appropriate, unless specifically indicated otherwise. judge.me's drug information does not endorse drugs, diagnose patients or recommend therapy. [employer] drug information is an informational resource designed [...] effective or appropriate for any given patient. judge.me does not assume any responsibility for any aspect of healthcare administered with the aid of information judge.me provides. The information contained herein is not intended to cover all possible uses, directions, precautions, warnings, drug interactions, allergic reactions, or adverse effects. If you have questions about the drugs you are taking, check with your doctor, nurse or pharmacist. Copyright 0688-8916 [employer]. Version: 15.. Revision Date: 06/13/2023. Education Materials [...] relieve symptoms. These may include: Prescription and tgkj-tvq-xphdkkc pain medicines. These help relieve pain, swelling, [...] foot Problems controlling your bladder or bowel 8445-4974 [employer] [address] [place] [address], [place] [address]. All rights reserved. This information is not [...] or swelling over your back or spine 0087-3150 [employer] [address] [place] [address]. All rights reserved. This information is not intended as a substitute for professional medical care. Always follow your healthcare professional's instructions. Additional Information VACCINATE! IT SAVES LIVES! Members of the community who have not yet received the COVID-19 vaccine and would like to receive it can visit one of [facility] vaccine clinics. There are many vaccine clinic locations within the [facility]. For locations and available times, please visit [email or web address] [email or web address] It is important to note that some COVID mobile vaccine clinics are held outdoors and may be canceled in rainy or stormy conditions. To learn more about pediatric vaccinations (ages 5-11), we invite you to visit the [facility] webpage. https://www.[facility].org/pag es/5037-Ubqge-Unjfpunbrid-Frequent uh-Etngp-Cmqgnkohn.html To learn more about the COVID-19 vaccine, we invite you to visit the CDC website for a list of frequently asked questions. https://www.cdc.gov/coronavirus/-ncov/vaccines/faq.html [facility] Patient Portal Access Instructions: Stay connected with your healthcare team and access your personal medical information anytime with the [facility] Patient Portal. If you would like a full copy of your medical records please contact the [facility] Medical Records Department Tuesday through Tuesday between 8a.m. and 4:30p.m. Please follow the directions below to access the portal: 1.Access the email account you provided upon registration to the [facility].2.Look for an invitation email from [facility].3.Open the email and access the invitation link: Accept Invitation to [facility].Fill in the required rodriges to create your account. Sign into [email or web address] with your username and password that you [...] you will allow to register on the [facility] Patient Portal for access to your information. You can also access the [facility] Patient Portal on the [employer] trudy. Simply click on Health Records under Health Data and then click on the [employer] logo. HOW TO SAFELY DISPOSE OF PRESCRIPTION [...] Call your local pharmacy or go to http://bit.ly/1P8Lr4d to find one close to you.3.Make use of household items: Use cat litter or old coffee grounds to dispose medications if other options are not available. Mix your drugs with these household products, seal them in an airtight container and throw it into the garbage. Call [facility]: [phone] to be sure your drugs can be [...] aware that I should contact my doctor. 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 MICRO - Microbiology PROCEDURE: [...] Locations *1: This test was performed at: [facility], [address] [place] [address], [id number] , [facility] 04-02-2024 Note ORIGINAL EXAMINATION: MRI OF THE [...] Sign Date: 04/02/2024 7:32:29 PM Ordering Provider: [facility] 03-06-2024 Note . MICRO - Microbiology [...] Locations *1: This test was performed at: [facility], [address] [place] [address], [facility] , [place] [id number] Note . MICRO - Microbiology PROCEDURE: Culture [...] Locations *1: This test was performed at: [facility], [address] [place] [address], [facility] , [facility] 02-10-2024 Discharge summary Date of Service 02/10/2024 [...] (one day only), Blood, Once, Preferred Lab: [facility], Stop date 02/10/24 5:00:00 EDT(Complete) Other status: CMP,02/10/24 5:00:00 EDT, Next AM Draw (one day only), Blood, Once, Preferred Lab: [facility], Stop date 02/10/24 5:00:00 EDT(Complete) Ordered: Discharge,02/10/24 11:35:00 EDT, Discharged to: Home Ordered: Discharge Activity,NO activity restrictions, Be careful lifting, 02/10/24 11:35:00 EDT Ordered: Discharge Diet,Type of Diet: Regular, Calories Permitted: 1800 kcal, 02/10/24 11:35:00 EDT Other status: Magnesium Level,02/10/24 5:01:00 EDT, Next AM Draw (one day only), Blood, Once, Preferred Lab: [facility], Stop date 02/10/24 5:01:00 EDT(Complete) Ordered: Maxipime,Dose [...] the lumbar spine has been scheduled at [facility] on 04/02/2024 at 10:45 AM. This will be completed in the radiology department which is located on the ground floor. Hospital follow-up visit scheduled with Dr. Barrera of [facility] on 04/06/2024 at 8 AM. [facility] office is located in the physicians [...] Misc Medication (BD UF MINI PEN NEEDLE [id number])use five times a day with INSULIN and [...] every 6 hours as needed for pain. [id number] Milligram by mouth three (3) times a [...] with AGNES MALYS When:Within 1-2 days Where:[address] [facility] [place] [address]- Business (1) Additional Information: Please call the office to schedule a hospital follow-up appointment. Follow Up with [facility] Additional Information: This is your home healthcare provider. Please call if you have questions related to home healthcare. Follow Up with [facility] will be providing your IV antibiotics and supplies. Call [phone] for questions or concerns. When:Within 1-2 days Follow Up with Please return balance of HOME MED upon discharge When:Within 1-2 days Follow Up with AMALIA BARRERA MD, Neurosurgery When:04/06/2024 08:00 AM EST Where:[address] [facility] [address] [facility] [place] [phone] Follow Up Appointments No qualifying data available. [...] MARCIN SAXENA MD on 02/10/2024 04:18 PM [facility] 02-10-2024 Hospital Discharge instructions Patient Education 02/10/2024 [...] a bath or a shower. Medicines Take xygx-eek-dlcczig and prescription medicines only as told by [...] as fried or sweet foods. ?Take an akuf-hiq-emsmejb or prescription medicine for constipation. General instructions [...] 03/05/2005 Document Revised: 03/20/2018 Document Reviewed: 03/20/2018 [employer] Patient Education 2020 [place]. Follow Up Care 02/01/2024 16:02:52 With:DO NOT LEAVE THE HOSPITAL WITHOUT YOUR ANTIBIOTICS AND SUPPLIES Address: When: Unknown With:AGNES HERNANDEZ Address: [address] [place] [address]- Business (1) When:1-2 days Comments:Please call the office to schedule a hospital follow-up appointment. With:[facility] Address: When: Unknown Comments:This is your home healthcare provider. Please call if you have questions related to home healthcare. With:[facility] will be providing your IV antibiotics and supplies. Call [phone] for questions or concerns. Address: When:1-2 days With:Please return balance of HOME MED upon discharge Address:Unknown When:1-2 days With:AMALIA BARRERA MD, Neurosurgery Address: [address] [place] [address] [phone] When:04/06/2024 08:00:00 [facility] 02-10-2024 Note Discharge Instructions Thank you for allowing [facility] to assist you with your healthcare needs. The following is important discharge information regarding your hospital visit. Your Care Team AGNES HERNANDEZ DO What to do next Instructions From Your Doctor MRI of the lumbar spine has been scheduled at [facility] on 04/02/2024 at 10:45 AM. This will be completed in the radiology department which is located on the ground floor. Hospital follow-up visit scheduled with Dr. Barrera of [facility] on 04/06/2024 at 8 AM. [facility] is located in the physicians office building on the fifth floor. Scheduled Follow-Up Appointments Appointment Type When With Where Contact Information StatusMRI Spine Lumbar w/ + w/o Contrast 04/02/2024 11:00 AM [facility] Radiology [phone] Confirmed NS OV 04/06/2024 08:00 AM AMALIA WANG MD Neurosurgery [address] [place] [phone] Confirmed ENDO OV 04/26/2024 02:15 PM JENNI BENAVIDEZ MD [facility] Endo [address] [facility] [address] [place] [address]- [phone] Confirmed Follow Up Appointments Follow Up with AGNES HERNANDEZ When:Within 1-2 days Where:[address] [place] [address] [place] [address]- Business (1) Additional Information: Please call the office to schedule a hospital follow-up appointment. Follow Up with [facility] Additional Information: This is your home healthcare provider. Please call if you have questions related to home healthcare. Follow Up with [facility] will be providing your IV antibiotics and supplies. Call [phone] for questions or concerns. When:Within 1-2 days Follow Up with Please return balance of HOME MED upon discharge When:Within 1-2 days Follow Up with AMALIA BARRERA MD, Neurosurgery When:04/06/2024 08:00 AM EST Where:[address] [facility] [address] [facility] [place] [address]- [phone] The Following Activity and Diet Have Been [...] Misc Medication (BD UF MINI PEN NEEDLE [id number]) use five times a day with INSULIN [...] a bath or a shower. Medicines Take ylgx-cga-kjhfjde and prescription medicines only as told by [...] fried or sweet foods. ? Take an vinw-irl-dvubhgh or prescription medicine for constipation. General instructions [...] 03/05/2005 Document Revised: 03/20/2018 Document Reviewed: 03/20/2018 [employer] Patient Education 2020 [place]. Additional Information VACCINATE! IT SAVES LIVES! Members of the community who have not yet received the COVID-19 vaccine and would like to receive it can visit one of [facility] vaccine clinics. There are many vaccine clinic locations within the [facility]. For locations and available times, please visit [email or web address].[place].gov/. It is important to note that some COVID mobile vaccine clinics are held outdoors and may be canceled in rainy or stormy conditions. To learn more about pediatric vaccinations (ages 5-11), we invite you to visit the [facility] webpage. https://www.[facility].org/pag es/9245-Fmyee-Vqjwwjxjtft-Frequent ax-Qpmhr-Ybltjhsnj.html To learn more about the COVID-19 vaccine, we invite you to visit the CDC website for a list of frequently asked questions.https://www.cdc.gov/argelia navirus/2019-ncov/vaccines/faq.htm [facility] Patient Portal Access Instructions: Stay connected with your healthcare team and access your personal medical information anytime with the [facility] Patient Portal. Please follow the directions below to create your [employer] account: 1.Access the email account you provided upon registration to the hospital/physician office.2.Look for an invitation email from [facility].3.Open the email and access the invitation link: Accept Invitation to [employer].4.Fill in the required rodriges to create your account. To access your account, visit [email or web address]. Click the blue button labeled Access Patient [...] you will allow to register on the [facility] [employer] Patient Portal for access to your information. You can also access the [facility] [employer] Patient Portal on the [facility] trudy. Simply click on Patient Portal and then log into your account. If you would like to receive a full copy of your medical records, please contact the [facility] Medical Records Department by calling [phone], Tuesday through Tuesday between 8 a.m. and [...] Call your local pharmacy or go to http://bit.ly/8V4Nw8v to find one close to you.3.Make use of household items: Use cat litter or old coffee grounds to dispose medications if other options are not available. Mix your drugs with these household products, seal them in an airtight container and throw it into the garbage. Call [facility]: [phone] to be sure your drugs can be [...] aware that I should contact my doctor. 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 [...] LENGTH: 0cm ARM CIRCUMFRENCE: 46cm Lot #: [id number] COMPLICATIONS: None INSERTED BY: Delmy Ponce RN BSN PLAN: PICC placement confirmed in lower SVC per ECG technology with Maximum-P wave and absence of negative deflection.Flushes easily with good blood return. Ok to use PICC now. Primary RN notified of PICC placement. Digitally Signed by Delmy Ponce RN on 02/09/2024 05:18 PM [facility] 02-09-2024 Note Date of Service 02/09/2024 Subjective [...] Minerals Tablet 1 tab(s), Oral, with lunch slxig-6-uhzq ethyl esters 1000 mg capsule 2,000 mg [...] MARCIN SAXENA MD on 02/09/2024 04:35 PM [facility] 02-09-2024 Infectious disease Progress note Date of [...] Minerals Tablet 1 tab(s), Oral, with lunch mbnwr-8-muru ethyl esters 1000 mg capsule 2,000 mg [...] CT-guided percutaneous 18-G core biopsy of the L2/Z3gghnijmvcxvvym disc. MRI Spine Lumbar w/ + w/o [...] Sandra Chapman RN on 02/09/2024 10:22 AM [facility] 02-09-2024 Infectious disease Progress note Date of [...] Minerals Tablet 1 tab(s), Oral, with lunch ilmae-1-hmqx ethyl esters 1000 mg capsule 2,000 mg [...] CT-guided percutaneous 18-G core biopsy of the L2/J0wfgstmkmgvztpm disc. MRI Spine Lumbar w/ + w/o [...] Sandra Chapman RN on 02/09/2024 10:22 AM [facility] 02-08-2024 Note Date of Service 02/08/2024 Subjective [...] Minerals Tablet 1 tab(s), Oral, with lunch ornol-8-xvjy ethyl esters 1000 mg capsule 2,000 mg [...] MARCIN SAXENA MD on 02/08/2024 04:16 PM [facility] 02-08-2024 Note If ancillary studies were utilized, the following Laboratory Developed Test (LDT) disclaimer will apply: Under CLIA requirements, [facility] is qualified to perform high complexity testing. For all ancillary stains, positive and negative controls stain appropriately. Performance characteristics of immunohistochemical and chromogenic in-situ hybridization tests have been determined by [facility]. These tests are used for clinical purposes, They should not be regarded as investigational or for research. [facility] 02-08-2024 Infectious disease Progress note Date of [...] Minerals Tablet 1 tab(s), Oral, with lunch zxrtv-2-rfxg ethyl esters 1000 mg capsule 2,000 mg [...] CT-guided percutaneous 18-G core biopsy of the L2/K6tygnxokzumkskl disc. MRI Spine Lumbar w/ + w/o [...] Sandra Chapman RN on 02/08/2024 10:48 AM [facility] 02-08-2024 Infectious disease Progress note Date of [...] Minerals Tablet 1 tab(s), Oral, with lunch gzycg-9-zycf ethyl esters 1000 mg capsule 2,000 mg [...] CT-guided percutaneous 18-G core biopsy of the L2/Q9dsyvyqsyokennq disc. MRI Spine Lumbar w/ + w/o [...] Sandra Chapman RN on 02/08/2024 10:48 AM [facility] 02-07-2024 Note Date of Service 02/07/2024 Subjective [...] Minerals Tablet 1 tab(s), Oral, with lunch qyggy-4-uztb ethyl esters 1000 mg capsule 2,000 mg [...] MARCIN SAXENA MD on 02/07/2024 12:18 PM [facility] 02-07-2024 Note If ancillary studies were utilized, the following Laboratory Developed Test (LDT) disclaimer will apply: Under CLIA requirements, [facility] is qualified to perform high complexity testing. For all ancillary stains, positive and negative controls stain appropriately. Performance characteristics of immunohistochemical and chromogenic in-situ hybridization tests have been determined by [facility]. These tests are used for clinical purposes, They should not be regarded as investigational or for research. [facility] 02-07-2024 Note If ancillary studies were utilized, the following Laboratory Developed Test (LDT) disclaimer will apply: Under CLIA requirements, [facility] is qualified to perform high complexity testing. For all ancillary stains, positive and negative controls stain appropriately. Performance characteristics of immunohistochemical and chromogenic in-situ hybridization tests have been determined by [facility]. These tests are used for clinical purposes, They should not be regarded as investigational or for research. [facility] 02-07-2024 Note If ancillary studies were utilized, the following Laboratory Developed Test (LDT) disclaimer will apply: Under CLIA requirements, [facility] is qualified to perform high complexity testing. For all ancillary stains, positive and negative controls stain appropriately. Performance characteristics of immunohistochemical and chromogenic in-situ hybridization tests have been determined by [facility]. These tests are used for clinical purposes, They should not be regarded as investigational or for research. [facility] 02-07-2024 Note If ancillary studies were utilized, the following Laboratory Developed Test (LDT) disclaimer will apply: Under CLIA requirements, [facility] is qualified to perform high complexity testing. For all ancillary stains, positive and negative controls stain appropriately. Performance characteristics of immunohistochemical and chromogenic in-situ hybridization tests have been determined by [facility]. These tests are used for clinical purposes, They should not be regarded as investigational or for research. [facility] 02-07-2024 Note If ancillary studies were utilized, the following Laboratory Developed Test (LDT) disclaimer will apply: Under CLIA requirements, [facility] is qualified to perform high complexity testing. For all ancillary stains, positive and negative controls stain appropriately. Performance characteristics of immunohistochemical and chromogenic in-situ hybridization tests have been determined by [facility]. These tests are used for clinical purposes, They should not be regarded as investigational or for research. [facility] 02-07-2024 Note If ancillary studies were utilized, the following Laboratory Developed Test (LDT) disclaimer will apply: Under CLIA requirements, [facility] is qualified to perform high complexity testing. For all ancillary stains, positive and negative controls stain appropriately. Performance characteristics of immunohistochemical and chromogenic in-situ hybridization tests have been determined by [facility]. These tests are used for clinical purposes, They should not be regarded as investigational or for research. [facility] 02-07-2024 Note . MICRO - Microbiology PROCEDURE: [...] Locations *1: This test was performed at: [address], [address] [place] [address] 02-07-2024 Note . MICRO - Microbiology PROCEDURE: [...] Locations *1: This test was performed at: [address], [address] [place] [address] 02-07-2024 Infectious disease Progress note Date of [...] Minerals Tablet 1 tab(s), Oral, with lunch rwmtr-1-rgtg ethyl esters 1000 mg capsule 2,000 mg [...] CT-guided percutaneous 18-G core biopsy of the L2/S5gueivcrhqncjju disc. MRI Spine Lumbar w/ + w/o [...] to the hospital as a transfer from [place] on 02/01/[address] of [...] by MOMO GARLAND on 02/07/2024 02:20 PM [facility] 02-06-2024 Note ORIGINAL PROCEDURE: CT guided percutaneous [...] Sign Date: 02/06/2024 2:31:04 PM Ordering Provider: [facility] 02-06-2024 Note ORIGINAL PROCEDURE: CT guided [...] Sign Date: 02/06/2024 2:31:04 PM Ordering Provider: [facility] 02-06-2024 Note IR Procedure Record Summary Primary Physician: KERON DUNAWAY MD Finalized Date/Time: 02/06/24 13:44:22 Pt. Name: JENNIFERGLORIA D.O.B./Sex: 1955 Female Med Rec #: [id number] Physician: JASON AZAR MD Financial #: [id number] Pt. Type: I Room/Bed: [facility]/ Admit/Disch: 02/01/24 19:44:00 - Institution: Allergies identified [...] Snider, RN Corey Role Performed Primary Surgeon Fig Washer Procedure Nurse Details Time In 02/06/24 12:42:00 [...] and site marked, Present for Time Out [employer], Relevant images and HILARIO Vega results are properly labeled and appropriately displayed, Alcohol based prep dry, Double verification of sterility indicators complete Instrument Sterility Team Members KERON DUNAWAY MD, Verifying Sterility Tie Society [employer] Procedure IR Aspiration Lumbar Disc W/Guide SN [...] Radiology - Action Plan Outcomes Met? 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 HILARIO Vega Completing Procedure Plan Last Modified By: HILARIO Vega 02/06/24 13:11:05 Case Comments Finalized By: HILARIO Vega Document Signatures Signed By: HILARIO Vega 02/06/24 13:44 [facility] 02-04-2024 Neurological surgery Consult note Date of [...] 3 refills BD UF MINI PEN NEEDLE [id number] calcium-vitamin D 600 mg-5 mcg (200 intl [...] Member(s) Relationship: Father, Age: 49 Years, Cause: MS Immunizations hepatitis B adult vaccine: 0 unknown [...] AMALIA BARRERA MD on 02/04/2024 07:01 AM [facility] 02-03-2024 Note ORIGINAL EXAMINATION: MRI OF THE [...] 02/03/2024 5:05:50 PM Ordering Provider: FABI REYES [facility] 02-02-2024 Infectious disease Consult note Date of Service 02/02/2024 Reason for Consultation Concern for lumbar osteomyelitis/discitis Referring Physician Dr. 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 Recently had [...] for pain relief in October. Transferred to [facility] for further evaluation for discitis/osteomyelitis. Patient [...] to the hospital as a transfer from [place] on 02/01/2024 with back pain. Recently had outpatient CT abdomen/pelvis for chronic abdominal pain, back pain with last 4 months which was concerning for discitis/osteomyelitis at L2-L3. Transferred to [facility] for further evaluation. ID on board [...] 3 refills BD UF MINI PEN NEEDLE [id number] calcium-vitamin D 600 mg-5 mcg (200 intl [...] Member(s) Relationship: Father, Age: 49 Years, Cause: MS Immunizations hepatitis B adult vaccine: 0 unknown [...] by MOMO GARLAND on 02/02/2024 12:51 PM [facility] 02-02-2024 Infectious disease Consult note Date of Service 02/02/2024 Reason for Consultation Concern for lumbar osteomyelitis/discitis Referring Physician Dr. 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 Recently had [...] for pain relief in October. Transferred to [facility] for further evaluation for discitis/osteomyelitis. Patient [...] to the hospital as a transfer from [place] on 02/01/2024 with back pain. Recently had outpatient CT abdomen/pelvis for chronic abdominal pain, back pain with last 4 months which was concerning for discitis/osteomyelitis at L2-L3. Transferred to [facility] for further evaluation. ID on board [...] 3 refills BD UF MINI PEN NEEDLE [id number] calcium-vitamin D 600 mg-5 mcg (200 intl [...] Member(s) Relationship: Father, Age: 49 Years, Cause: MS Immunizations hepatitis B adult vaccine: 0 unknown [...] by MOMO GARLAND on 02/02/2024 12:51 PM [facility] 02-01-2024 History and physical note Date of [...] Oral, Daily BD UF MINI PEN NEEDLE [id number] calcium-vitamin D 600 mg-5 mcg (200 intl [...] Member(s) Relationship: Father, Age: 49 Years, Cause: MS Immunizations hepatitis B adult vaccine: 0 unknown [...] FABI REYES DO on 02/01/2024 10:46 PM [facility] 02-01-2024 Hospital Discharge instructions Patient Education 02/01/2024 [...] or water and you are getting dehydrated [id number] [employer]. [address] [place] [address]. All rights reserved. This information is not intended as a substitute for professional medical care. Always follow your healthcare professional's instructions. Follow Up Care 02/01/2024 11:23:18 With:LEODAN GODOY MD Address: [address] [place] [phone] [phone] When:2-4 days [facility] 02-01-2024 Evaluation + Plan note Extrac delphine [...] Date:04/26/2024 02:15:00 PM Scheduled Provider:JENNI MARCUS MD Location:[facility] Appointment Type:ENDO OV Future Scheduled [...] Spine Lumbar w/ + w/o Contrast 04/02/24 [facility] 10-16-2024 Note ORIGINAL EXAMINATION: CT OF THE [...] Sign Date: 02/01/2024 1:58:29 PM Ordering Provider: [facility] Hospital Discharge instructions Patient Education 01/30/2024 11:47:47 [...] or water and you are getting dehydrated [id number] [employer]. [address] [place] [address]. All rights reserved. This information is not [...] foods again, start with small amounts of kqdo-pt-zeggae, low- fat foods. These include apple sauce, [...] increase stomach acid. Don't use aspirin or xwde-fsg-omfmgxc pain and fever medicines, if possible. This includes nonsteroidal anti-inflammatory drugs (NSAIDs). Lose excess weight. Finish eating at least 2 hours before you go to bed or lie down. Raise the head of your bed. [phone] [employer]. [address] [place] [address], [place] [address]. All rights reserved. This information is not intended as a substitute for professional medical care. Always follow yourhealthcare professional's instructions. Follow Up Care 01/30/2024 10:34:29 With:Pain management Address: When:2-4 days Comments:Since you are a patient that pain management, pain management needs to be the only one prescribing medication to control your pain at this point. [facility] 10-14-2024 Note Discharge Instructions Thank [...] Misc Medication (BD UF MINI PEN NEEDLE [id number]) use five times a day with INSULIN [...] or water and you are getting dehydrated 8595-4907 [employer]. [address] [place] [address], [place] [address]. All rights reserved. This information is not [...] foods again, start with small amounts of vgrb-hi-jccxor, low- fat foods. These include apple sauce, [...] increase stomach acid. Don't use aspirin or mkor-ihz-ymqlyrx pain and fever medicines, if possible. This includes nonsteroidal anti-inflammatory drugs (NSAIDs). Lose excess weight. Finish eating at least 2 hours before you go to bed or lie down. Raise the head of your bed. [phone] [employer]. [address] [place] [address]. All rights reserved. This information is not intended as a substitute for professional medical care. Always follow yourhealthcare professional's instructions. Additional Information VACCINATE! IT SAVES LIVES! Members of the community who have not yet received the COVID-19 vaccine and would like to receive it can visit one of [facility] vaccine clinics. There are many vaccine clinic locations within the [facility]. For locations and available times, please visit www.gettheshot.coronavirus.[place].gov/. It is important to note that some COVID mobile vaccine clinics are held outdoors and may be canceled in rainy or stormy conditions. To learn more about pediatric vaccinations (ages 5-11), we invite you to visit the [facility] webpage. https://www.[facility].org/pages/3943-Rakfq-Ogwvichddlg-Dydcuextpg-Bmgtj-Oie stions.htmlTo learn more about the COVID-19 vaccine, we invite you to visit the CDC website for a list of frequently asked questions. https://www.cdc.gov/coronavirus/2019-ncov/vaccines/faq.html [facility] Patient Portal Access Instructions: Stay connected with your healthcare team and access your personal medical information anytime with the [facility]O Patient Portal. If you would like a full copy of your medical records please contact the [facility] Medical Records Department Tuesday through Tuesday between 8a.m. and 4:30p.m. Please follow the directions below to access the portal: 1.Access the email account you provided upon registration to the [facility].2.Look for an invitation email from [facility].3.Open the email and access the invitation link: Accept Invitation to [facility] H2O4.Fill in the required rodriges to create your account. Sign into [email or web address] with your username and password that you [...] you will allow to register on the [employer] H2O Patient Portal for access to your information. You can also access the [facility] Patient Portal on the Toothpick. Simply click on Health Records under CambridgeSoftta and then click on the Alla logo. [...] Call your local pharmacy or go to [email or web address].[email or web address] to find one close to you.3.Make use of household items: Use cat litter or old coffee grounds to dispose medications if other options arenot available. Mix your drugs with these household products, seal them in an airtight container andthrow it into the garbage. Call [facility]: [phone] to be sure your drugs can be [...] aware that I should contact my doctor. Patient/Associate Field Service Engineer Signature: Date/Time: Relationship to Patient: Witness Name/Signature: Date/Time: [facility]03-07-2024 Hospital Discharge instructions Patient Education 06/23/2023 18:38:45 [...] your ankles gets worse Dizziness or weakness [phone] [employer]. [address] [place] [address]. All rights reserved. This information is not intended as a substitute for professional medical care. Always follow yourhealthcare professional's instructions. Follow Up Care 06/23/2023 15:22:30 With:AGNES HERNANDEZ DO Address: [address] [place] [address]- When:2-4 days [facility] 03-07-2024 Note Discharge Instructions Thank you for allowing [facility] to assist you with your healthcare needs. [...] A DO When Within 2-4 days Where: [address] [place] [address] [place] [address]- Allergies Bee Stings (Difficulty breathing) morphine (Anaphylaxis) [...] Misc Medication (BD UF MINI PEN NEEDLE [id number]) use five times a day with INSULIN [...] your ankles gets worse Dizziness or weakness [phone] [employer]. [address] [place] [address]. All rights reserved. This information is not intended as a substitute for professional medical care. Always follow yourhealthcare professional's instructions. Additional Information VACCINATE! IT SAVES LIVES! Members of the community who have not yet received the COVID-19 vaccine and would like to receive it can visit one of [facility] vaccine clinics. There are many vaccine clinic locations within the [facility]. For locations and available times, please visit www.gettheshot.coronavirus.[place].gov/. It is important to note that some COVID mobile vaccine clinics are held outdoors and may be canceled in rainy or stormy conditions. To learn more about pediatric vaccinations (ages 5-11), we invite you to visit the [facility] webpage. https://www.[facility].org/pages/0172-Lyidy-Utrvqdvdafz-Hqvmdocqta-Rcdhk-Hyp stions.htmlTo learn more about the COVID-19 vaccine, we invite you to visit the CDC website for a list of frequently asked questions. https://www.cdc.gov/coronavirus/2019-ncov/vaccines/faq.html [facility] Patient Portal Access Instructions: Stay connected with your healthcare team and access your personal medical information anytime with the [employer] H2O Patient Portal. If you would like a full copy of your medical records please contact the [facility] Medical Records Department Tuesday through Tuesday between 8a.m. and 4:30p.m. Please follow the directions below to access the portal: 1.Access the email account you provided upon registration to the [facility].2.Look for an invitation email from [facility].3.Open the email and access the invitation link: Accept Invitation to [facility] H2O4.Fill in the required rodriges to create your account. Sign into [email or web address] with your username and password that you [...] you will allow to register on the [facility] H2O Patient Portal for access to your information. You can also access the [facility] Patient Portal on the [employer] trudy. Simply click on Health Records under CambridgeSoftta and then click on the DormNoise logo. HOW TO SAFELY DISPOSE OF PRESCRIPTION [...] Call your local pharmacy or go to http://bit.JobSync/2N8Lg2a to find one close to you.3.Make use of household items: Use cat litter or old coffee grounds to dispose medications if other options arenot available. Mix your drugs with these household products, seal them in an airtight container andthrow it into the garbage. Call [facility]: [phone] to be sure your drugs can be [...] aware that I should contact my doctor. Patient/Associate Field Service Engineer Signature: Date/Time: Relationship to Patient: Witness Name/Signature: Date/Time: [facility]03-07-2024 Note ORIGINAL EXAMINATION: ONE XRAY VIEW OF [...] Date: 06/23/2023 7:23:32 PM [facility] NoteSinus rhythm Left bundle branch block Compared to ECG at 11/01/2022 15:28:09 BORDERLINE ECG Electronic Signature: LAURA ARRIAZA DO 06/23/2023 16:43:23[facility] 01-31-2024 Note ORIGINAL EXAMINATION: PET/CT CU64 DETECTNET SB-05/18/2023 10:55 am TECHNIQUE: Intravenous injection of 4.4 mCi IV Copper-64 Dotatate was performed, followed by acquisition of positron emission tomographic images from the skull base to mid thigh, with concurrent low-dose CT for attenuation correction and anatomic localization utilizing a combined PET/CT scanner. PET images were fused with low-dose CT at the workstation. Dose cmlpgyrqk-pn-obed time: 54 min COMPARISON: CT cervical spine [...] Sign Date: 05/18/2023 3:32:17 PM Ordering Provider: [facility]07-20-2023 Hospital Discharge instructions Patient Education 11/04/2022 15:31:04 Hyperglycemia, Grdt-rj-Psjb Hyperglycemia Hyperglycemia is when the sugar (glucose) [...] these instructions at home: General instructions Take omxq-lnz-hlkftlv and prescription medicines only as told by [...] 01/30/2010 Document Revised: 12/20/2016 Document Reviewed: 12/20/2016 MediaLAB Patient Education 2020 [employer]em. Follow Up Care 11/01/2022 14:53:31 With:AGNES HERNANDEZ DO Address: [address] [place] [address]- When:2-4 days [facility] 07-20-2023 Note Discharge Instructions Thank you for allowing [facility] to assist you with your healthcare needs. [...] PM EDT JENNI MARCUS MD [facility] [place] Follow Up Appointments Follow Up with AGNES HERNANDEZ DO When Within 2-4 days Where: [address] [place] [address] [place] [address]- The Following Activity and Diet Have Been [...] may report side effects to FDA at 6-325-VBL-5221. What other drugs will affect magnesium oxide? [...] interact with magnesium oxide, including prescription and nutv-eoj-mvtxcjw medicines, vitamins, and herbal products. Not all [...] to ensure that the information provided by [employer]. ('Multum') is accurate, up-to-date, and complete, but no guarantee is made to that effect. Drug information contained herein may be time sensitive. judge.me information has been compiled for use by healthcare practitioners and consumers in the [place] and therefore judge.me does not warrant that uses outside of the [place] are appropriate, unless specifically indicated otherwise. [employer]ass drug information does not endorse drugs, diagnose patients or recommend therapy. A-Gass drug information isan informational resource designed to [...] effective or appropriate for any given patient. judge.me does not assume any responsibility for any aspect of healthcare administered with the aid of information judge.me provides. The information contained herein is not intended to cover all possible uses, directions, precautions, warnings, drug interactions, allergic reactions, or adverse effects. If you have questions about the drugs you are taking, check with your doctor, nurse or pharmacist. Copyright 9662-7831 [employer]. Version: 4.01. Revision Date: 08/13/2016. Education Materials [...] these instructions at home: General instructions Take pvcc-azm-pkzgkxf and prescription medicines only as told by [...] 01/30/2010 Document Revised: 12/20/2016 Document Reviewed: 12/20/2016 MediaLAB Patient Education 2020 MediaLAB Inc. Additional Information VACCINATE! IT SAVES LIVES! Members of the community who have not yet received the COVID-19 vaccine and would like to receive it can visit one of [facility] vaccine clinics. There are many vaccine clinic locations within the [facility]. For locations and available times, please visit https://gettheshot.coronavirus.[place].gov/. It is important to note that some COVID mobile vaccine clinics are held outdoors and may be canceled in rainy or stormy conditions. To learn more about pediatric vaccinations (ages 5-11), we invite you to visit the [facility] webpage. https://www.[facility].org/pages/8179-Nlxxu-Vtcgmkphfms-Jnxnxqhdvh-Btqqi-Gcl stions.htmlTo learn more about the COVID-19 vaccine, we invite you to visit the CDC website for a list of frequently asked questions.https://www.cdc.gov/coronavirus/2019-ncov/vaccines/faq.html [facility] Patient Portal Access Instructions: Stay connected with your healthcare team and access your personal medical information anytime with the [facility] Patient Portal. Please follow the directions below to create your [facility] [facility]2O account: 1.Access the email account you provided upon registration to the hospital/physician office.2.Look for an invitation email from [facility].3.Open the email and access the invitation link: AcceptInvitation to [facility] H2O.4.Fill in the required rodriges to create your account. To access your account, visit [email or web address]. Click the blue button labeled Access Patient Portal and then log in with the username and password that you created in the steps above. You will be able to view your test results, lab results, a summary of your visits, upcoming appointments and more. There is also a convenient messaging option where you can send secure messages to your p Wound Care Technologiesvider. In addition, you will have the ability to download any documents or summaries to your computer and/or send the information securely to a physician. Remember that your healthcare information is confidential, so carefully consider who you will allowto register on the [facility] Patient Portal for access to your information. You can also access the [facility] Patient Portal on the [facility] CybEyewhere trudy. Simply click on Patient Portal and then log into your account. If you would like to receive a full copy of your medical records, please contact the [facility] Medical Records Department by calling [phone], Tuesday through Tuesday between 8 a.m. and [...] Call your local pharmacy or go to [email or web address].[email or web address] to find one close to you.3.Make use of household items: Use cat litter or old coffee grounds to dispose medications if other options arenot available. Mix your drugs with these household products, seal them in an airtight container andthrow it into the garbage. Call [facility]: [phone] to be sure your drugs can be [...] CHART COPY. Signatures Patient Education Materials Hyperglycemia, Txdu-mx-Scxf Medication Leaflets magnesium oxide My discharge plan and instructions have been reviewed and explained to me and IJENNIFER PAMELA A understand my current condition and have read and understand these discharge instructions. I have received a written copy of the plan/instructions. If I have questions, I am aware that I should contact my doctor. Patient/Associate Field Service Engineer Signature: Date/Time: Relationship to Patient: Witness Name/Signature: Date/Time: [facility]07-19-2023 Note Date of Service 11/03/2022 Chief Complaint [...] endocrinology. Sheis seeing Dr. Marcus here at [facility]. Per pharmacy, patient could get a one-time teaching appointment with [facility]. Pharmacy, nursing and mat maker have been giving patient information but she [...] early September 2022). *Continue diabetic diet. *Pharmacist, mat maker and nursing providing diabetic teaching. 4. Bipolar [...] by AGNES DUNCAN on 11/03/2022 03:13 PM [facility]07-18-2023 Evaluation + Plan noteExtracted from: Title:History and Physical Author:DAKOTA AGNES M 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 Date:11/02/22 1. Shortness of breath Acute on [...] in the am. *Continue diabetic diet. *Pharmacist, mat maker and nursing providing diabetic teaching. 4. Bipolar [...] ordering home medications, discussing case with pharmacy, mat maker, nursing, therapy and social worker clinical, examining patient, collaborating with physician, and documenting in chart. Future Appointments Appointment Date:02/03/2023 02:15:00 PM Scheduled Provider:JENNI MARCUS MD Location:[facility] Appointment Type:[facility] POLANCO [facility] 07-18-2023 Note Date of Service 11/02/2022 Chief Complaint Patient complains of not feeling well. Patient states that she is short of breath and feels achy. History of Present Illness Patient is a 66-year-old female, who follows with Dr. Agnes Hernandez with a past medical history significant for hypertension, MARGARETTE on CPAP, lung cancer s/p left upper lobectomy, and IBS, presented to [facility] emergency department with the chief complaint of [...] using it correctly. We will have the mat maker talk to her today about meal choices. [...] in the am. *Continue diabetic diet. *Pharmacist, mat maker and nursing providing diabetic teaching. 4. Bipolar [...] ordering home medications, discussing case with pharmacy, mat maker, nursing, therapy and social worker clinical, examining patient, collaborating with physician, and docum [...] by AGNES DUNCAN on 11/02/2022 03:07 PM [place] [id number] Note ORIGINAL EXAMINATION: ONE XRAY VIEW OF [...] Date: 11/01/2022 4:33:53 PM [facility]ing [facility] Note Sinus rhythm Left bundle branch block Compared to ECG at 09/19/2022 12:24:38 Compared to ECG at 07/21/2021 19:00:38 Electronic Signature: JESÚS HOUSTON DO 11/01/2022 15:35:49[facility] 06-05-2023 Hospital Discharge instructions Patient Education 09/20/2022 16:52:32 Community-Acquired Pneumonia, Adult, Tdvs-cn-Unpb Community-Acquired Pneumonia, Adult Pneumonia is an infection [...] Follow these instructions at home: Medicines Take ibev-own-towstnb and prescription medicines only as told by [...] cannot use soap and water, use hand laborer wharf. Contact a doctor if: You have a [...] 09/20/2008 Document Revised: 07/25/2019 Document Reviewed: 11/30/2018 MediaLAB Patient Education 2020 Deem. Follow Up Care 09/19/2022 23:44:01 With:AGNES HERNANDEZ DO Address: [address] [place] [address]- When:1-2 days With:[facility] will be supplying your oxygen at discharge. Please call [phone] when you arrive home and they will deliver your concentrator. They will bring a portable tank to your room. Address: When:1-2 days With:[facility] will be providing your home healthcare services at home. They should be contacting you soon. If you do not hear from them within 24 hours after discharge, please give them a call at the provided number. Address: When:1-2 days [facility] 06-05-2023 Discharge summary Date of Service 09.20.22 [...] tab(s), 0 Refill(s), 09/27/22 16:01:00 EDT, Pharmacy: [id number], 175.3, cm, 09/20/22 0:36:00 EDT, [facility], 160.5 Ordered: nystatin 100,000 units/mL oral suspension,Dose : 500,000 unit(s) = 5 mL, Swish & Swallow, QID, X 14 day(s), # 280 mL, 0 Refill(s), 10/04/22 16:01:00 EDT, [facility]: [id number], 175.3, cm, 09/20/22 0:36:00 EDT, [facility] [...] three (3) times a day before meals. [id number] Milligram by mouth once a day. multivitamin [...] release)1 tab(s) by mouth once a day. amekzszirq29 Milligram by mouth three (3) times a [...] HERNANDEZ DO When Within 1-2 days Where: [address] [facility] [place] [address]- Follow Up with [facility] will be supplying your oxygen at discharge. Please call [phone] when you arrive home and they will deliver your concentrator. They will bring a portable tank to your room. When Within 1-2 days Where: Follow Up with [facility] will be providing your home [...] by ARACELI SCHERER on 09/20/2022 04:14 PM [id number] Note Discharge Instructions Thank you for allowing [facility] to assist you with your healthcare needs. The following is importantdischarge information regarding your hospital visit. Your Care Team AGNES HERNANDEZ DO Your Diagnosis LINDA (acute kidney injury) [place] [facility] Community acquired pneumonia COPD Diabetes mellitus type 2 Hypertension What to do next Follow Up Appointments Follow Up with AGNES HERNANDEZ DO When Within 1-2 days Where: [address] [facility] [place] [address]- Follow Up with [facility] will be supplying your oxygen at discharge. Please call [phone] when you arrive home and they will deliver your concentrator. They will bring a portable tank to your room. When Within 1-2 days Where: Follow Up with [facility] will be providing your home [...] by mouth Every 4 hours Pickup at [facility] #12339 New levoFLOXacin (levoFLOXacin 750 mg oral tablet) 1 tab(s) by mouth Every 24 hours Duration: 7 Days Pickup at [facility] #40542 New nystatin (nystatin 100,000 units/ mL oral suspension) 5 Milliliter Swish in mouth and swallow Four (4) times a day Duration: 14 Days Pickup at [facility] #86702 Changed furosemide (furosemide 20 mg oral tablet) [...] Once a day Pharmacy Information [id number]: [address], [place] [id number] [phone] What How Much When Comments Stop Taking [...] Follow these instructions at home: Medicines Take lthk-rvd-gcvcgoz and prescription medicines only as told by [...] cannot use soap and water, use hand laborer wharf. Contact a doctor if: You have a [...] 09/20/2008 Document Revised: 07/25/2019 Document Reviewed: 11/30/2018 MediaLAB Patient Education 2020 MediaLAB Inc. Additional Information VACCINATE! IT SAVES LIVES! Members of the community who have not yet received the COVID-19 vaccine and would like to receive it can visit one of [facility] vaccine clinics. There are many vaccine clinic locations within the [facility]. For locations and available times, please visit https://[email or web address].[place].gov/. It is important to note that some COVID mobile vaccine clinics are held outdoors and may be canceled in rainy or stormy conditions. To learn more about pediatric vaccinations (ages 5-11), we invite you to visit the [facility] webpage. https://www.[facility].org/pages/3057-Mnqdk-Myiovqvgvlo-Nxqjqxctzb-Iltny-Jok stions.htmlTo learn more about the COVID-19 vaccine, we invite you to visit the CDC website for a list of frequently asked questions.https://www.cdc.gov/coronavirus/2019-ncov/vaccines/faq.html [facility] Patient Portal Access Instructions: Stay connected with your healthcare team and access your personal medical information anytime with the All[employer] H2O Patient Portal. Please follow the directions below to create your [facility] H2O account: 1.Access the email account you provided upon registration to the hospital/physician office.2.Look for an invitation email from [facility].3.Open the email and access the invitation link: AcceptInvitation to [facility].4.Fill in the required rodriges to create your account. To access your account, visit [email or web address]. Click the blue button labeled Access Patient Portal and then log in with the username and password that you created in the steps above. You will be able to view your test results, lab results, a summary of your visits, upcoming appointments and more. There is also a convenient messaging option where you can send secure messages to your p Wound Care Technologiesvider. In addition, you will have the ability to download any documents or summaries to your computer and/or send the information securely to a physician. Remember that your healthcare information is confidential, so carefully consider who you will allowto register on the [facility] Patient Portal for access to your information. You can also access the [facility]go[facility] Patient Portal on the [facility] CybEyewhere trudy. Simply click on Patient Portal and then log into your account. If you would like to receive a full copy of your medical records, please contact the [facility] Medical Records Department by calling [phone], Tuesday through Tuesday between 8 a.m. and [...] Call your local pharmacy or go to http://Algolux.JobSync/[email or web address] to find one close to you.3.Make use of household items: Use cat litter or old coffee grounds to dispose medications if other options arenot available. Mix your drugs with these household products, seal them in an airtight container andthrow it into the garbage. Call [facility]: [phone] to be sure your drugs can be [...] Signatures Patient Education Materials Community-Acquired Pneumonia, Adult, Ddob-ys-Fdyw Medication Leaflets My discharge plan and instructions have been reviewed and explained to me and IJENNIFER PAMELA A understand my current condition and have read and understand these discharge instructions. I have received a written copy of the plan/instructions. If I have questions, I am aware that I should contact my doctor. Patient/Associate Field Service Engineer Signature: Date/Time: Relationship to Patient: Witness Name/Signature: Date/Time: [id number] Discharge summary Date of Service 6.09.07 Discharge [...] Refill(s), 09/27/22 16:01:00 EDT, [id number], 175.3, cm, 09/20/22 0:36:00 EDT, [facility], 160.5 Ordered: nystatin 100,000 units/mL oral suspension,Dose : 500,000 unit(s) = 5 mL, Swish & Swallow, QID, X 14 day(s), # 280 mL, 0 Refill(s), 10/04/22 16:01:00 EDT, [facility]acy: [facility] #[id number], 175.3, cm, 09/20/22 0:36:00 EDT, [facility] [...] three (3) times a day before meals. blkxkvqaoc40 Milligram by mouth once a day. multivitamin [...] release)1 tab(s) by mouth once a day. sozsgjzrgx13 Milligram by mouth three (3) times a [...] HERNANDEZ DO When Within 1-2 days Where: [address] [facility] [place] [address]- Follow Up with [facility] will be supplying your oxygen at discharge. Please call [phone] when you arrive home and they will deliver your concentrator. They will bring a portable tank to your room. When Within 1-2 days Where: Follow Up with [facility] will be providing your home healthcare services [...] by ARACELI SCHERER on 09/20/2022 04:14 PM [facility] [id number] Note ORIGINAL EXAMINATION: TWO XRAY VIEWS OF [...] Sign Date: 09/20/2022 4:05:10 PM Ordering Provider: [facility]06-05-2023 Note ORIGINAL EXAMINATION: TWO XRAY VIEWS OF [...] Sign Date: 09/20/2022 4:05:10 PM Ordering Provider: Grace [facility] + Plan noteExtracted from: Title:History and [...] Patient was hypotensive during her course at [place] emergency department. DM 2. She was hyperglycemic in [place] emergency department and given 10 units insulin. [...] recognition software and may contain typographical errors. [facility] 06-05-2023 History and physical note Date of Service 09/20/22 Chief Complaint Weakness History of Present Illness 66-year-old female with PMHx COPD, HTN, DM 2, MARGARETTE presents to the hospital as a transfer from [place] ED for weakness and falls. History is obtained by my colleague who accepted the patient, patient, chart review. The patient endorses a male you of chronic complaints. However, most recently presented to [place] due to increased weakness and falls. She [...] 3 months ago she was admitted to [facility] and states that she has had [...] for infection. Initial BMP showed In the [place] emergency department she is hypotensive at 84/56. [...] Patient was hypotensive during her course at [place] emergency department. DM 2. She was hyperglycemic in [place] emergency department and given 10 units insulin. [...] HIRAM WANG MD on 09/20/2022 01:02 AM [id number] Note ORIGINAL EXAMINATION: CT OF THE HEAD [...] 09/19/2022 9:08:48 PM Ordering Provider: XANDER GRIFFIN [facility]06-04-2023 Note ORIGINAL EXAMINATION: CT OF THE HEAD [...] Date: 09/19/2022 9:08:48 PM Ordering Provider: [facility] Evaluation + Plan note Diagnostic Tests Pending * COVID-19 Only (AO) 09/19/22 * Urine Culture 09/19/22 * Blood Culture (bacterial) 09/19/22 * Blood Culture (bacterial) 09/19/22 [facility] 06-04-2023 Hospital Discharge instructions Follow Up Care 09/19/2022 11:49:38 With:AGNES HERNANDEZ DO Address: [address] [place] [id number]- When:2-4 days [facility] 06-04-2023 Note ORIGINAL EXAMINATION: ONE XRAY VIEW [...] Sign Date: 09/19/2022 12:56:01 PM Ordering Provider: [facility]06-04-2023 Note ORIGINAL EXAMINATION: ONE XRAY VIEW OF [...] Sign Date: 09/19/2022 12:56:01 PM Ordering Provider: [facility]03-24-2023 Nurse Discharge summary Discharged to [facility]. Escorted to the exit via w/c per myself. Left at 1325. [facility]03-24-2023 Note Discharge Instructions Thank you for allowing [facility] to assist you with your healthcare needs. The following is importantdischarge information regarding your hospital visit. 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 General instructions Take roph-lzd-joblhch and prescription medicines only as told by [...] 04/04/2006 Document Revised: 11/08/2018 Document Reviewed: 11/08/2018 Media[employer] Patient Education 2020 [employer]. Dehydration (Adult) Dehydration occurs when your [...] does not get better with fever medication 6725-2904 [employer]. [address] [place] [address], [place] [address]. All rights reserved. This information is not [...] knee Chest pain or shortness of breath 5676-6872 [employer]. [address] [place] [address], [place] [address]. All rights reserved. This information is not intended as a substitute for professional medical care. Always follow yourhealthcare professional's instructions. Additional Information VACCINATE! IT SAVES LIVES! Members of the community who have not yet received the COVID-19 vaccine and would like to receive it can visit one of [facility] vaccine clinics. There are many vaccine clinic locations within the State. For locations and available times, please visit [email or web address]/. It is important to note that some COVID mobile vaccine clinics are held outdoors and may be canceled in rainy or stormy conditions. To learn more about pediatric vaccinations (ages 5-11), we invite you to visit the [facility] webpage. https://www.[facility].org/pages/5232-Heamf-Plvpxihcmfj-Qvelxonqqu-Xhtmo-Gom stions.htmlTo learn more about the COVID-19 vaccine, we invite you to visit the CDC website for a list of frequently asked questions. https://www.cdc.gov/coronavirus/2019-ncov/vaccines/faq.html [facility] Patient Portal Access Instructions: Stay connected with your healthcare team and access your personal medical information anytime with the [facility] Patient Portal.If you would like a full copy of your medical records, please contact the [facility] Medical Records Department, Tuesday through Tuesday between 8a.m. and 4:30p.m. Please follow the directions below to access the portal: 1.Access the email account you provided upon registration to the hospital.2.Look for an invitation email from [facility].3.Open the email and access the invitation link: Accept Invitation to [facility]4.Fill in the required rodriges to create your account. Sign into [email or web address] with your username and password that you [...] you will allow to register on the [facility] Patient Portal for access to your information. You can also access the [facility] Patient Portal on the [employer] trudy. Simply click on Health Records under OKKAM and then click on the DormNoise logo. HOW TO SAFELY DISPOSE OF PRESCRIPTION [...] Call your local pharmacy or go to http://Algolux.JobSync/5R0Sy7a to find one close to you.3.Make use of household items: Use cat litter or old coffee grounds to dispose medications if other options arenot available. Mix your drugs with these household products, seal them in an airtight container andthrow it into the garbage. Call [facility]: [phone] to be sure your drugs can be [...] aware that I should contact my doctor. 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 General instructions Take bnyb-byw-qtigvvo and prescription medicines only as told by [...] 04/04/2006 Document Revised: 11/08/2018 Document Reviewed: 11/08/2018 [employer] Patient Education 2020 [employer]. 07/01/2022 17:28:17 DEHYDRATION (6y-Adult) Dehydration (Adult) Dehydration [...] does not get better with fever medication 0055-8993 [employer]. [address] [place] [address]. All rights reserved. This information is not [...] knee Chest pain or shortness of breath 0256-9231 [employer]. [address] [place] [address]. All rights reserved. This information is not intended as a substitute for professional medical care. Always follow yourhealthcare professional's instructions. Follow Up Care 07/01/2022 09:30:16 With:AGNES HERNANDEZ DO Address: [address] [place] [address]- When:2-4 days [facility] 03-24-2023 Discharge summary Date of Service 07/09/2022 [...] stage III (N18.30 - ICD-10-CM) Hip pain-swelling ([id number] - PNED) Neuropathy (G62.9 - ICD-10-CM) Weakness or fatigue ([id number] - PNED) Additional Orders: Other status: BMP,07/09/22 5:00:00 EDT, Next AM Draw (one day only), Blood, Once, Preferred Lab: [facility], Stop date 07/09/22 5:00:00 EDT(Complete) Ordered: Colestid [...] (one day only), Blood, Once, Preferred Lab: [facility], Stop date 07/09/22 5:01:00 EDT(Complete) Hospital Course 66-year-old female with past medical history significant for COPD, type 2 diabetes mellitus, GERD, hypertension, hyperlipidemia, IBS, breast cancer, lLung Cancer s/p left upper lobe lobectomy. Patient presented to [facility] emergency department on 07/01/2022 for right [...] state - done yesterday and cleared by [facility]. *Patient accepted by [facility] - awaiting on approval again from [facility]. 2. Fever Resolved *Urine culture showing multiple [...] she has been cleared to go to [facility] today. We are awaitingreapproval by [facility] to proceed with transfer. She denies any fever, chills, cough, shortness of breath, chest pain, abdominal pain, nausea or dysuria. All questions answered. account services coordinator will update patient when they get final [...] Date: July 01, 2022 Verified By: KERON BLCAK MD CLINICAL STATEMENT: IMPRESSION: Emphysematous changes and [...] DO When Within 2-4 days Where: [address] [facility] [place] [address] [place] [address]- Follow Up Appointments No qualifying data available. Follow Up Labs/Studies Discharge Labs No Follow-up Labs Discharge Studies No Follow-up Studies Discharge Diet No qualifying data available. Discharge Activity No qualifying data available. Condition on Discharge Stable Discharge Disposition [facility] Information Provided To Caregiver Time Spent 30 minutes Digitally Signed by AGNES DUNCAN on 07/09/2022 12:01 PM [facility]03-23-2023 Note Date of Service 07/08/2022 Chief Complaint [...] Tablet 1,000 mg 2 tab(s), Oral, BIDM ccrpu-6-kvht ethyl esters 1000 mg capsule 2,000 mg [...] and patient now requires evaluation by the [facility]. *Patient accepted by a SNF - awaiting mental health assessment by [facility]. 2. Fever Resolved *Urine culture showing [...] when PAS-R submitted. Mental health evaluation by [facility] pending. DVT prophylaxis with SCDs, ambulation. Labs, diagnostic test and progress notes reviewed as noted in HPI. Plan of care discussed with patient. All questions answered. Patient verbalizes understanding and is agreeable with plan of care. This case was discussed with collaborating physician, Dr. Dell Branch. Time Spent 35 minutes Digitally Signed by AGNES DUNCAN on 07/08/2022 12:11 PM [facility]03-22-2023 Note Date of Service 07/07/2022 Chief Complaint [...] Tablet 1,000 mg 2 tab(s), Oral, BIDM snixf-6-fzxt ethyl esters 1000 mg capsule 2,000 mg [...] and patient now requires evaluation by the [facility]. *Patient accepted by a SNF. 2. [...] by AGNES DUNCAN on 07/07/2022 01:45 PM [facility]03-21-2023 Note Date of Service 07/06/2022 Subjective 66-year-old female with past medical history significant for COPD, type 2 diabetes mellitus, GERD, hypertension, hyperlipidemia, IBS, breast cancer, lLung Cancer s/p left upper lobe lobectomy. Patient presented to [facility] emergency department on 07/01/2022 for right [...] She has been approved to go to [facility] and has been accepted by SNF however [...] Tablet 1,000 mg 2 tab(s), Oral, BIDM ngxil-7-benl ethyl esters 1000 mg capsule 2,000 mg [...] by MAKI TOUSSAINT on 07/06/2022 12:17 PM [facility]03-17-2023 Evaluation + Plan noteExtracted from: Title:History and [...] Extracted from: Title:History and Physical Author: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 Date:07/02/22 1. Asthenia 2. Fever 3. Lactic [...] and may include grammatical and/or spelling errors. [facility] 03-17-2023 Note Date of Service 07/02/22 Chief [...] knewthat she would end up in a fci. EMS was called Tuesday. In the emergency [...] Date: July 01, 2022 Verified By: KERON BLCAK MD CLINICAL STATEMENT: IMPRESSION: No acute fracture. [...] Joseline Hicks Student on 07/02/2022 01:17 PM [facility]03-17-2023 Note Date of Service 07/02/2022 Chief Complaint squad brings her in from home because of weakness and right hip pain History of Present Illness 66-year-old female with past medical history significant for COPD, type 2 diabetes mellitus, GERD, hypertension, hyperlipidemia, IBS, breast cancer, lLung Cancer s/p left upper lobe lobectomy. Patient presented to [facility] emergency department on 07/01/2022 for right [...] by MAKI TOUSSAINT on 07/02/2022 11:18 AM [facility]03-17-2023 HCoV 229E RNA VARSHA+non-probe Ql (Nph) Not Detected *NA* (07/02/22 8:20 AM) Auto Viro/Sero [id number] Note Discharge Instructions Thank you for allowing [...] HERNANDEZ DO When Within 2-4 days Where: [address] [place] [address] [place] [address]- Allergies Bee Stings (Difficulty breathing) morphine (Anaphylaxis) [...] does not get better with fever medication 9301-6074 [employer]. [address] [place] [address]. All rights reserved. This information is not [...] knee Chest pain or shortness of breath 1131-7529 [employer]. [address] [place] [address]. All rights reserved. This information is not intended as a substitute for professional medical care. Always follow yourhealthcare professional's instructions. Additional Information VACCINATE! IT SAVES LIVES! Members of the community who have not yet received the COVID-19 vaccine and would like to receive it can visit one of [facility] vaccine clinics. There are many vaccine clinic locations within the [facility]. For locations and available times, please visit www.[email or web address].[place].gov/. It is important to note that some COVID mobile vaccine clinics are held outdoors and may be canceled in rainy or stormy conditions. To learn more about pediatric vaccinations (ages 5-11), we invite you to visit the [facility] webpage. https://www.[facility].org/pages/1490-Fbyqa-Bikjckjofje-Zysqcabpks-Eqdbg-Vdy stions.htmlTo learn more about the COVID-19 vaccine, we invite you to visit the CDC website for a list of frequently asked questions. https://www.cdc.gov/coronavirus/2019-ncov/vaccines/faq.html [facility] Patient Portal Access Instructions: Stay connected with your healthcare team and access your personal medical information anytime with the [facility] Patient Portal. If you would like a full copy of your medical records please contact the [facility] Medical Records Department Tuesday through Tuesday between 8a.m. and 4:30p.m. Please follow the directions below to access the portal: 1.Access the email account you provided upon registration to the [facility].2.Look for an invitation email from [facility].3.Open the email and access the invitation link: Accept Invitation to [facility]4.Fill in the required rodriges to create your account. Sign into [email or web address] with your username and password that you [...] you will allow to register on the [facility] Patient Portal for access to your information. You can also access the [facility] Patient Portal on the Toothpick. Simply click on Health Records under HealthData and then click on the DormNoise logo. HOW TO SAFELY DISPOSE OF PRESCRIPTION [...] Call your local pharmacy or go to http://bit.JobSync/1M4Vm7l to find one close to you.3.Make use of household items: Use cat litter or old coffee grounds to dispose medications if other options arenot available. Mix your drugs with these household products, seal them in an airtight container andthrow it into the garbage. Call [facility]: [phone] to be sure your drugs can be [...] aware that I should contact my doctor. 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 There is hyperinflation. There are mild streaky airspace opacities in the lung bases. The pulmonary vasculature is unremarkable in appearance. IMPRESSION: Emphysematous changes and mild atelectasis. Interpreted by: Keron Black MD Preliminary Report By: Kreon Black MD Electronically signed By Keron Black MD Dictated Date: 07/01/2022 11:12:22 AM Prelim Date: 07/01/2022 11:13:11 AM Sign Date: 07/01/2022 11:13:11 AM Ordering Provider: [address]16-2023 Note ORIGINAL HISTORY: Cough COMPARISON: 08 [...] Sign Date: 07/01/2022 11:13:11 AM Ordering Provider: [address]16-2023 Note ORIGINAL HISTORY: Pain COMPARISON: 29 [...] Sign Date: 07/01/2022 11:02:53 AM Ordering Provider: [address]16-2023 Note ORIGINAL HISTORY: Pain COMPARISON: 29 [...] Date: 07/01/2022 11:02:53 AM [facility] Discharge instructions Patient Education 06/30/2022 02:20:07 [...] joint or bear weight on the joint 7697-8406 [employer]. [address] [place] [address]. All rights reserved. This information is not intended as a substitute for professional medical care. Always follow yourhealthcare professional's instructions. Follow Up Care 06/30/2022 01:30:30 With:AGNES HERNANDEZ Address: [address] [place] [id number] Business (1) When:2-4 days [facility] 03-15-2023 Emergency department Discharge summary Discharge Instructions Thank you for allowing [facility] to assist you with your healthcare needs. [...] AGNES HERNANDEZ When Within 2-4 days Where: [address] [place] [address] [facility] (1) Allergies Bee Stings (Difficulty breathing) morphine [...] AneCream, Bactine, Glydo, LidaMantle, Lidoderm, LidoRx, Medi-Quik Valentine, RadiaGuard, RectiCare, Regenecare GUILLEN Valentine, Solarcaine Cool Aloe What is the most [...] may report side effects to FDA at 7-473-GFG-4778. What other drugs will affect lidocaine topical? Medicine used on the skin is not likely to be affected by other drugs you use. But many drugs can interact with each other. Tell each of your health care providers about all medicines you use, including prescription and kypl-mcy-kzpnihm medicines, vitamins, and herbal products. Where can I get more information? Your pharmacist can provide more information about lidocaine topical. Remember, keep this and all other medicines out of the reach of children, never share your medicines with others, and use this medication only for the indication prescribed. Every effort has been made to ensure that the information provided by [employer]. ('[employer]') is accurate, up-to-date, and complete, but no guarantee is made to that effect. Drug information contained herein may be time sensitive. judge.me information has been compiled for use by healthcare practitioners and consumers in the [place] and therefore judge.me does not warrant that uses outside of the [place] are appropriate, unless specifically indicated otherwise. [employer] drug information does not endorse drugs, diagnose patients or recommend therapy. [employer] drug information isan informational resource designed to [...] effective or appropriate for any given patient. [facility] does not assume any responsibility for any aspect of healthcare administered with the aid of information judge.me provides. The information contained herein is not intended to cover all possible uses, directions, precautions, warnings, drug interactions, allergic reactions, or adverse effects. If you have questions about the drugs you are taking, check with your doctor, nurse or pharmacist. Copyright 1038-3991 [employer]. Version: 9.02. Revision Date: 09/01/2021. Education Materials [...] joint or bear weight on the joint 2149-3125 [employer]. [address] [place] [address]. All rights reserved. This information is not intended as a substitute for professional medical care. Always follow yourhealthcare professional's instructions. Additional Information VACCINATE! IT SAVES LIVES! Members of the community who have not yet received the COVID-19 vaccine and would like to receive it can visit one of [facility] vaccine clinics. There are many vaccine clinic locations within the [facility]. For locations and available times, please visit www.gettheshot.coronavirus.[place].gov/. It is important to note that some COVID mobile vaccine clinics are held outdoors and may be canceled in rainy or stormy conditions. To learn more about pediatric vaccinations (ages 5-11), we invite you to visit the [facility] webpage. https://www.[facility].org/pages/3424-Rstbu-Akihvswfffj-Advoilxkwl-Ueeen-Hfl stions.htmlTo learn more about the COVID-19 vaccine, we invite you to visit the CDC website for a list of frequently asked questions. https://www.cdc.gov/coronavirus/2019-ncov/vaccines/faq.html [facility] Patient Portal Access Instructions: Stay connected with your healthcare team and access your personal medical information anytime with the [facility] Patient Portal. If you would like a full copy of your medical records please contact the [facility] Medical Records Department Tuesday through Tuesday between 8a.m. and 4:30p.m. Please follow the directions below to access the portal: 1.Access the email account you provided upon registration to the [facility].2.Look for an invitation email from [facility].3.Open the email and access the invitation link: Accept Invitation to [facility]4.Fill in the required rodriges to create your account. Sign into [email or web address] with your username and password that you [...] you will allow to register on the [facility] Patient Portal for access to your information. You can also access the [facility] Patient Portal on the Toothpick. Simply click on Health Records under OKKAM and then click on the DormNoise logo. HOW TO SAFELY DISPOSE OF PRESCRIPTION [...] Call your local pharmacy or go to http://Algolux.JobSync/7X8Ny4f to find one close to you.3.Make use of household items: Use cat litter or old coffee grounds to dispose medications if other options arenot available. Mix your drugs with these household products, seal them in an airtight container andthrow it into the garbage. Call [facility]: [phone] to be sure your drugs can be [...] aware that I should contact my doctor. 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 HISTORY: ORDERING SYSTEM PROVIDED HISTORY: Reason for Exam: And pain, no injury. FINDINGS: No acute fracture or dislocation. There are severe degenerative changes at the radiocarpal joint. Moderate carpocarpal joint degenerative change. Severe degenerative change at the proximal interphalangeal joint of the 2nd digit. Ucci-vv-aaiglbjg additional interphalangeal joint degenerative change. No significant [...] Sign Date: 06/30/2022 2:19:18 AM Ordering Provider: [facility]03-15-2023 Note ORIGINAL EXAMINATION: THREE XRAY VIEWS OF THE RIGHT HAND 06/30/2022 2:02 am COMPARISON: None. HISTORY: ORDERING SYSTEM PROVIDED HISTORY: Reason for Exam: And pain, no injury. FINDINGS: No acute fracture or dislocation. There are severe degenerative changes at the radiocarpal joint. Moderate carpocarpal joint degenerative change. Severe degenerative change at the proximal interphalangeal joint of the 2nd digit. Wrzr-ar-eoslzwcr additional interphalangeal joint degenerative change. No significant [...] Sign Date: 06/30/2022 2:19:18 AM Ordering Provider: [facility]04-05-2022 Hospital Discharge instructions Patient Education 07/21/2021 19:44:04 [...] your ankles gets worse Dizziness or weakness [id number] [employer]. [address] [place] [address], [place] [address]. All rights reserved. This information is not [...] fluids will help loosen secretionsin the lungs. Xxts-wsx-gjyqlfs cough medicines that contain dextromethorphan (such as [...] Lower leg swelling, tenderness, redness or pain 6585-1683 [employer]. [address] [place] [address], [place] [address]. All rights reserved. This information is not intended as a substitute for professional medical care. Always follow yourhealthcare professional's instructions. Follow Up Care 07/21/2021 15:32:39 With:AGNES HERNANDEZ Address: [address] [place] [phone]- Business (1) When:2-4 days Comments:Return to ED if symptoms worsen [facility] 03-26-2022 Hospital Discharge instructions Patient Education 07/11/2021 [...] alternate ice and heat. You may use sxgc-gtv-heyuubn pain medicine to control pain, unless another [...] numb, or tingly Pain or swelling increases 7856-2993 [employer]. [address] [place] [address], [place] [address]. All rights reserved. This information is not intended as a substitute for professional medical care. Always follow yourhealthcare professional's instructions. Follow Up Care 07/11/2021 14:50:24 With:AGNES HERNANDEZ DO Address: [address] [place] [phone]- When:2-4 days With:Go to emergency room if symptoms worsen Address:Unknown When:2-4 days [facility] 01-12-2022 Hospital Discharge instructions Patient Education 04/29/2021 18:29:51 COVID-19 Prevent the Spread of COVID-19 If You Are Sick (09/04/2019) (CUSTOM) Prevent the Spread of COVID-19 If You Are Sick Accessible version: https://www.cdc.gov/coronavirus/2019-ncov/xe-ftg-bsa-sick/kmvim-hure-lrmn.html If you are sick with COVID-19 or [...] Animals if you have questions about pets: https://www.cdc.gov/coronavirus/2019ncov/faq.html#OYZAW85jplfxrl Monitor your symptoms. Common symptoms of COVID-19 [...] and need to call 911, notify the chucking and boring machine operator that you have or think you [...] clean your hands with an alcohol-based hand laborer wharf that contains at least 60% alcohol. Clean your hands often. Wash your hands often with soap and water for at least 20 seconds. This is especially important after blowing your nose, coughing, or sneezing; going to the bathroom; and before eating or preparing food. Use hand laborer wharf if soap and water are not available. Use an alcohol-based hand laborer wharf with atleast 60% alcohol, covering all surfaces [...] and water or put them in the digital strategist senior manager. Clean all high-touch surfaces everyday. Clean and [...] or body fluids on them. Use household gleason operator and disinfectants. Clean the area or item [...] Care 04/29/2021 15:01:28 With:AGNES HERNANDEZ DO Address: [address] [place] [phone]- When:2-4 days [facility] 01-06-2022 Hospital Discharge instructions Patient Education 04/23/2021 13:11:07 COVID-19 Prevent the Spread of COVID-19 If You Are Sick (09/04/2019)(CUSTOM) Prevent the Spread of COVID-19 If You Are Sick Accessible version: https://www.cdc.gov/coronavirus/2019-ncov/dc-wdt-mow-sick/dxdca-zmnd-ukbh.html If you are sick with COVID-19 or [...] Animals if you have questions about pets: https://www.cdc.gov/coronavirus/2019ncov/faq.html#DXWRG32xaduubh Monitor your symptoms. Common symptoms of COVID-19 [...] and need to call 911, notify the chucking and boring machine operator that you have or think you [...] clean your hands with an alcohol-based hand laborer wharf that contains at least 60% alcohol. Clean your hands often. Wash your hands often with soap and water for at least 20 seconds. This is especially important after blowing your nose, coughing, or sneezing; going to the bathroom; and before eating or preparing food. Use hand laborer wharf if soap and water are not available. Use an alcohol-based hand laborer wharf with atleast 60% alcohol, covering all surfaces [...] and water or put them in the digital strategist senior manager. Clean all high-touch surfaces everyday. Clean and [...] or body fluids on them. Use household gleason operator and disinfectants. Clean the area or item [...] Care 04/23/2021 12:48:27 With:AGNES HERNANDEZ DO Address: [address] [place] [phone]- When:2-4 days only if needed [facility] 11-09-2021 Hospital Discharge instructions Patient Education 02/24/2021 [...] 04/06/2004 Document Revised: 01/26/2019 Document Reviewed: 09/13/2016 [employer] Patient Education 2020 [employer]. 02/24/2021 12:15:02 Insulin Injection Instructions, Using Insulin [...] and water are not available, use hand laborer wharf. 2.Before you give yourself an insulin injection, [...] plastic cover from the needle. 11.Follow the hand tufter's instructions to prime the insulin pen with [...] have questions? Where to find more information [place] [employer] Association (ADA): www.diabetes.org [place] [employer] Educ[employer] (AADE) Patient Resources: [...] 05/07/2016 Document Revised: 04/24/2018 Document Reviewed: 05/07/2016 [employer] Patient Education 2020 [employer]. 02/24/2021 12:14:58 How to Avoid Diabetes Problems [...] left untreated, can lead to tooth loss. [place] your teeth twice a day, floss, and [...] 12/21/2011 Document Revised: 03/21/2013 Document Reviewed: 12/21/2011 [facility] [place] Patient Information 2015 [employer]. This information is not intended to replace advicegiven to you by your health care provider. Make sure you discuss any questions you have with your health care provider. 02/24/2021 10:29:36 Video-Assisted Thoracic Surgery, Zidq-dy-Pmdu Video-Assisted Thoracic Surgery Video-assisted thoracic surgery (VATS) [...] 07/30/2013 Document Revised: 03/17/2018 Document Reviewed: 03/21/2017 [employer] Patient Education 2020 [employer]em. 02/24/2021 10:29:28 Video-Assisted Thoracic Surgery, Care After, Eqpl-bm-Nufh Video-Assisted Thoracic Surgery, Care After This sheet [...] therapy (pulmonary rehabilitation) as told. Medicines Take ztql-xhw-swaruzc or prescription medicines only as told by [...] cannot use soap and water, use hand laborer wharf. ?Change your bandage as told by your [...] your doctor may recommend that you: ?Take bnpr-nwh-vrqoqnj or prescription medicines. ?Eat foods that have [...] 07/30/2013 Document Revised: 03/17/2018 Document Reviewed: 03/14/2017 [employer] Patient Education 2020 [employer] Follow Up Care 01/16/2021 13:52:02 With:JENNI MARCUS MD, [facility] Address: [address] [facility] [address] [place] [phone] When:1-2 days Comments:Call debbi for follow-up appointment in 4-6 weeks. Check blood sugar twice daily; bring record with you to this appointment. Call prior to your appointment with any questions or concerns. With:AGNES HERNANDEZ DO Address: [address] [place] [address] [place] [address]- When:02/25/2021 11:10:00 Comments:This will be with Dr. Alfonso With:EVENS MCGARRY APRN-HOME ECONOMIST Address: [address] [place] [address] A-[address] [facility] [address] [facility] [place] [address]- When:03/09/2021 13:30:00 Comments:Have a PA and lateral chest x-ray done here at [facility] 1 hour prior to your office visit [facility] Evaluation + Plan note Future Appointments [facility] Evaluation + Plan note Future Appointments Appointment Date:03/09/2021 01:30:00 PM Scheduled Provider:EVENS MCGARRY APRN-HOME ECONOMIST Location:[facility] Appointment Type:CTS OV Post Op [facility] Evaluation + Plan note Future Appointments Appointment Date:04/23/2021 02:30:00 PM Scheduled Provider:JENNI MARCUS MD Location:[facility] Appointment Type:ENDO OV [facility] Evaluation + Plan note Future Appointments Appointment Date:02/03/2023 02:15:00 PM Scheduled Provider:JENNI MARCUS MD Location:[facility] Appointment Type:ENDO LOG [facility]ER [facility] Evaluation + Plan note Future Appointments Appointment Date:05/26/2023 01:30:00 PM Scheduled Provider:JENNI MARCUS MD Location:[facility] Appointment Type:ENDO OV Future Scheduled Tests Laboratory* Complete Blood Count 02/03/23 * Albumin/Creatinine Ratio, Random Urine 02/03/23 [facility] Evaluation + Plan note Future Appointments Appointment Date:07/07/2023 08:00:00 AM Scheduled Provider:JENNI MARCUS MD Location:[facility] Appointment Type:ENDO OV Future Scheduled Tests Laboratory* Thyroid Stimulating Hormone 06/23/23 * Free T4 06/23/23 * Complete Blood Count 02/03/23 * Complete Blood Count 06/23/23 * Free T3 06/23/23 * Lipid Profile 06/23/23 * Albumin/Creatinine Ratio, Random Urine 02/03/23 * Albumin/Creatinine Ratio, Random Urine 06/23/23 * Complete Metabolic Panel 06/23/23 [facility] Evaluation + Plan note Future Appointments Appointment Date:04/26/2024 02:15:00 PM Scheduled Provider:JENNI MARCUS MD Location:[facility] Appointment Type:ENDO OV Future Scheduled Tests Laboratory* [...] * Complete Metabolic Panel 06/23/23 [facility] Evaluation + Plan note Future Appointments Appointment Date:04/02/2024 11:00:00 AM Scheduled Provider: Location:[facility] Appointment Type:MRI Spine Lumbar w/ + w/o Contrast Appointment Date:04/06/2024 08:00:00 AM Scheduled Provider:AMALIA BARRERA MD Location:[facility] Appointment Type:NS OV Appointment Date:04/26/2024 02:15:00 PM Scheduled Provider:JENNI MARCUS MD Location:[facility] Appointment Type:ENDO OV Future Scheduled Tests Laboratory* [...] w/ + w/o Contrast 04/02/24 [facility] Evaluation + Plan note Future Appointments Appointment Date:04/02/2024 11:00:00 AM Scheduled Provider: Location:[facility] Appointment Type:MRI Spine Lumbar w/ + w/o Contrast Appointment Date:04/06/2024 10:00:00 AM Scheduled Provider:AMALIA BARRERA MD Location:[facility] Appointment Type:NS OV Appointment Date:04/26/2024 02:15:00 PM Scheduled Provider:JENNI MARCUS MD Location:[facility] Appointment Type:ENDO OV Future Scheduled Tests Laboratory* [...] w/ + w/o Contrast 04/02/24 [facility] Evaluation + Plan note Future Appointments Appointment Date:04/02/2024 11:00:00 AM Scheduled Provider: Location:[facility] Appointment Type:MRI Spine Lumbar w/ + w/o Contrast Appointment Date:04/04/2024 01:45:00 PM Scheduled Provider:AMALIA BARRERA MD Location:[facility] Appointment Type:NS OV Appointment Date:04/26/2024 02:15:00 PM Scheduled Provider:JENNI MARCUS MD Location:[facility] [place] Appointment Type:ENDO OV Future Scheduled Tests [...] w/ + w/o Contrast 04/02/24 [facility] Evaluation + Plan note Future Appointments Appointment Date:04/04/2024 01:45:00 PM Scheduled Provider:AMALIA BARRERA MD Location:[facility] Appointment Type:NS OV Appointment Date:04/26/2024 02:15:00 PM Scheduled Provider:JENNI MARCUS MD Location:[facility] [place] Appointment Type:ENDO OV Future Scheduled [...] * Complete Metabolic Panel 06/23/23 [facility] Evaluation + Plan note Future Appointments Appointment Date:04/26/2024 02:15:00 PM Scheduled Provider:JENNI MARCUS MD Location:[facility] Appointment Type:ENDO OV Future Scheduled Tests Laboratory* [...] Panel 04/13/24 * Complete Metabolic Panel 06/23/23 [facility] Evaluation + Plan note Future Appointments Appointment Date:04/26/2024 02:15:00 PM Scheduled Provider:JENNI MARCUS MD Location:[facility] Appointment Type:ENDO OV Future Scheduled Tests Laboratory* Thyroid Stimulating Hormone 06/23/23 * Complete Blood Count 06/23/23 * Lipid Profile 06/23/23 * Albumin/Creatinine Ratio, Random Urine 12/09/23 * Albumin/Creatinine Ratio, Random Urine 07/07/23 * Albumin/Creatinine Ratio, Random Urine 04/13/24 * Albumin/Creatinine Ratio, Random Urine 06/23/23 * Vitamin D Level 04/13/24 * Complete Metabolic Panel 06/23/23 [facility] Evaluation + Plan note Future Appointments Appointment Date:08/09/2024 03:00:00 PM Scheduled Provider:AGNES AWAD DO Location:[facility] Appointment Type:PC OV Future Scheduled Tests Laboratory* Albumin/Creatinine Ratio, Random Urine 12/09/23 * Albumin/Creatinine Ratio, Random Urine 04/13/24 * Albumin/Creatinine Ratio, Random Urine 06/24/24 [facility] Evaluation noteNo assessment information available [facility] Work Phone: Evaluation note* Diagnosis Onset Date Resolution Status Carcinoid tumor acute History of left breast cancer chronic MGUS (monoclonal gammopathy of unknown significance) chronic [facility] Work Phone: Hospital course Narrative No data available for this section [facility] Hospital Discharge instructions No data available for this section [facility] Hospital Discharge instructions Additional Instructions Implant Used?: [facility] Work Phone: [facility] Work Phone: Progress note No data available for this section [facility] Summary note* JEAN PIERRE Johnson: PERFORM Event Display: Patient Summary Documents Authored Date: [id number] [facility] Chief Complaint and Reason for Visit Chief [...] Yes October 01, 2021 3:07pm Power of Crystal Machining Coordinator Yes October 01 3:07pm Name of Medical Power of Crystal Machining Coordinator KACI CALL October 01, 2021 3:07pm Advance Directive Response Recorded Date/ Time Name of Medical Power of Crystal Machining Coordinator KACI CALL October 01, 2021 3:07pm Advance Directives Yes November 21 10:47am Living Will Yes October 01, 2021 3:07pm Power of Crystal Machining Coordinator Yes October 01 3:07pm Advance Directive Response Recorded Date/ Time Name of Medical Power of Crystal Machining Coordinator KACI CALL October 01, 2021 3:07pm Name of Medical Power of Crystal Machining Coordinator FRIEND December 09, 2021 12:53pm Advance Directives Yes November 21 10:47am Living Will Yes December 09 12:53pm Power of Crystal Machining Coordinator Yes December 09 12:53pm Advance Directive Response Recorded Date/ Time Name of Medical Power of Crystal Machining Coordinator FRIEND December 09, 2021 12:53pm Advance Directives Yes November 21 10:47am Living Will Yes December 09 12:53pm Power of Crystal Machining Coordinator Yes December 09 12:53pm Advance Directive Response Recorded Date/ Time Name of Medical Power of Crystal Machining Coordinator FRIEND December 09, 2021 11:53am Advance Directives Yes February 8:24am Living Will Yes March 03 8:24am Power of Crystal Machining Coordinator Yes March 03, 2022 8:24am Summary Purpose Additional Source Comments Care Team (unrecognized sect ion and content) Personnel Name: AGNES HERNANDEZ DO Address: [address] [place] [address]- Name: Elodia Scott Clergarfield Alarcon PT Care Team Personnel Name: Elodia Scott PT 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 Helper Marine Advanced Member Role: Other Name: DAYLIN COOK MD Member Role: Cardiothoracic Surgeon Address: Address: [address] Cardiothoracic Surgery [place], [place] [address] Name: AGNES HERNANDEZ DO Member Role: Primary Care Physician Address: Address: [address] [place] [address] Name: Karla Harrington RN Position: AO RN Member Role: RN Name: XANDER GRIFFIN MD Position: ED Physician Member Role: ED Physician Address: Address: [address] [place] [address] [address]- Care Team Related Persons Name: CYNDI DUNLAP Care Team Personnel Name: Elodia Scott Clerk Agnes PT 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 Helper Marine Advanced Member Role: Other Name: DAYLIN COOK MD Member Role: Cardiothoracic Surgeon Address: Address: [address] [place] [address] [address] Name: AGNES HERNANDEZ DO Member Role: Primary Care Physician Address: Address: [address] [place] [address] Name: Lesvia Diehl Coder Position: HIM: Coders Member Role: HIM: Coders Name: MD LOGAN, GIFTY CORDOBA Position: ED Physician Member Role: ED Physician Address: Address: [address] [place] [address] Care Team Related Persons Name: CYNDI DUNLAP Care Team Personnel Name: Elodia Scott Clergarfield Alarcon PT 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 Helper Marine Advanced Member Role: Other Name: DAYLIN COOK MD Member Role: Cardiothoracic Surgeon Address: Address: [address] [place] [address] [place] [address]- Name: AGNES HERNANDEZ DO Member Role: Primary Care Physician Address: Address: [address] [place] [address] Name: Karla Harrington RN Position: AO RN Member Role: RN Name: CARMELA PAZ DO Position: ED Physician Member Role: ED Physician Address: Address: [facility] [address] [place], [place] [id number]- Name: Malathi Antony RN Position: AO RN Member Role: RN Care Team Related Persons Name: FABI, CYNDI Care Team Personnel Name: [facility] Sales Representative Agnes PT 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 Helper Marine Advanced Member Role: Other Name: DAYLIN COOK MD Member Role: Cardiothoracic Surgeon Address: Address: [address] [place] [address] Cardi[address] Name: AGNES HERNANDEZ DO Member Role: Primary Care Physician Address: Address: [address] [place] [address] Care Team Related Persons Name: CYNDI DUNLAP Care Team Personnel Name: [facility], [facility] Sales Representative Agnes PT 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 Helper Marine Advanced Member Role: Other Name: DAYLIN COOK MD Member Role: Cardiothoracic Surgeon Address: Address: [address] [place] [address] Cardi[address] Name: AGNES HERNANDEZ DO Member Role: Primary Care Physician Address: Address: [address] [place] [address] Care Team Related Persons Name: CYNDI DUNLAP Care Team Personnel Name: [facility], [facility] Sales Representative Agnes PT 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 Helper Marine Advanced Member Role: Other Name: DAYLIN COOK MD Member Role: Cardiothoracic Surgeon Address: Address: [address] [place] [address] Cardi[address] Name: AGNES HERNANDEZ DO Member Role: Primary Care Physician Address: Address: [address] [place] [address] Care Team Related Persons Name: CYNDI DUNLAP Care Team Personnel Name: [facility], [facility] Sales Representative Agnes PT 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 Helper Marine Advanced Member Role: Other Name: DAYLIN COOK MD Member Role: Cardiothoracic Surgeon Address: Address: [address] [place] [address] Name: AGNES HERNANDEZ DO Member Role: Primary Care Physician Address: Address: [address] [place] [address] Name: JESÚS HOUSTON DO Position: ED Physician Member Role: ED Physician Address: Address: [address] [place] [address] [facility] [address] Name: Lesvia Diehl segmental paver installer Position: DEMETRIA HIM: Coders Member Role: HIM: Coders Name: Gaby Dawn RN Position: AO RN Member Role: ED RN Care Team Related Persons Name: SHIMON DUNLAPINE Care Team Personnel Name: [facility], [facility] Sales Representative Agnes PT 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 Helper Marine Advanced Member Role: Other Name: DAYLIN COOK MD Member Role: Cardiothoracic Surgeon Address: Address: [address] [place] [address] Cardiothoracic Surgery [address] Name: AGNES HERNANDEZ DO Member Role: Primary Care Physician Address: Address: [address] [place] [address] Care Team Related Persons Name: SHIMON DUNLAPINE Care Team Personnel Name: [facility], [facility] Sales Representative Agnes PT 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 Helper Marine Advanced Member Role: Other Name: DAYLIN COOK MD Member Role: Cardiothoracic Surgeon Address: Address: [address] [place] [address] Cardiothor[address] Surgery [address] Name: AGNES HERNANDEZ DO Member Role: Primary Care Physician Address: Address: [address] [place] [address] Care Team Related Persons Name: SHIMON DUNLAPINE Care Team Personnel Name: [facility], [facility] Sales Representative Agnes PT 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 Helper Marine Advanced Member Role: Other Name: DAYLIN COOK MD Member Role: Cardiothoracic Surgeon Address: Address: [address] [place] [address] Cardiothor[address] Surgery [address] Name: AGNES HERNANDEZ DO Member Role: Primary Care Physician Address: Address: [address] [place] [address] Care Team Related Persons Name: FABI, CYNDI Care Team Personnel Name: [facility], [facility] Sales Representative Agnes PT 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 Helper Marine Advanced Member Role: Other Name: Alissa Mc Position: Bed Management Member Role: Other Name: DAYLIN COOK MD Member Role: Cardiothoracic Surgeon Address: Address: [address] [place] [address] Cardiothor[facility] Surgery [address] Name: AGNES HERNANDEZ DO Member Role: Primary Care Physician Address: Address: [address] [place] [address] Care Team Related Persons Name: CYNDI DUNLAP Care Team Personnel Name: [facility] Sales Representative Agnes PT 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 Helper Marine Advanced Member Role: Other Name: Alissa Mc Position: Bed Management Member Role: Other Name: DAYLIN COOK MD Member Role: Cardiothoracic Surgeon Address: Address: [address] [place] [address] Name: AGNES HERNANDEZ DO Member Role: Primary Care Physician Address: Address: [address] [place] [address] Care Team Related Persons Name: CYNDI DUNLAP Care Team Personnel Name: [facility] Sales Representative Agnes PT 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 Helper Marine Advanced Member Role: Other Name: Alissa Mc Position: Bed Management Member Role: Other Name: DAYLIN COOK MD Member Role: Cardiothoracic Surgeon Address: Address: [address] [place] [address] Cardiothor[address] Surgery [address] Name: AGNES HERNANDEZ DO Member Role: Primary Care Physician Address: Address: [address] [place] [address] Care Team Related Persons Name: CYNDI DUNLAP Care Team Personnel Name: [facility] Sales Representative Agnes PT 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 Helper Marine Advanced Member Role: Other Name: Alissa Mc Position: Bed Management Member Role: Other Name: DAYLIN COOK MD Member Role: Cardiothoracic Surgeon Address: Address: [address] [place] [address] Cardiothoracic Surgery [address] Name: AGNES HERNANDEZ DO Member Role: Primary Care Physician Address: Address: [address] [place] [address] Care Team Related Persons Name: CYNDI DUNLAP Care Team Personnel Name: [facility] Sales Representative Agnes PT 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 Helper Marine Advanced Member Role: Other Name: Alissa Mc Position: Bed Management Member Role: Other Name: DAYLIN COOK MD Member Role: Cardiothoracic Surgeon Address: Address: [address] [place] [address] Name: AGNES HERNANDEZ DO Member Role: Primary Care Physician Address: Address: [address] [place] [address] Care Team Related Persons Name: SHIMON DUNLAPINE Care Team Personnel Name: [facility] Sales Representative Agnes PT 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 Helper Marine Advanced Member Role: Other Name: Alissa Mc Position: Bed Management Member Role: Other Name: DAYLIN COOK MD Member Role: Cardiothoracic Surgeon Address: Address: [address] [place] [address] Name: AGNES HERNANDEZ DO Member Role: Primary Care Physician Address: Address: [address] [place] [address] Care Team Related Persons Name: CYNDI DUNLAP Care Team Personnel Name: [facility] Sales Representative Agnes PT 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 Helper [employer] Advanced Member Role: Other Name: Alissa Mc Position: Bed Management Member Role: Other Name: DAYLIN COOK MD Member Role: Cardiothoracic Surgeon Address: Address: [address] [place] [address] Cardiothoracic Surgery [address] Name: AGNES HERNANDEZ DO Member Role: Primary Care Physician Address: Address: [address] [place] [address] Care Team Related Persons Name: SHIMON DUNLAPINE Care Team Personnel Name: [facility] Sales Representative Agnes PT 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 [employer] Advanced Member Role: Other Name: Alissa Mc Position: Bed Management Member Role: Other Name: DAYLIN COOK MD Member Role: Cardiothoracic Surgeon Address: Address: [address] [place] [address] Cardiothoracic Surgery [address] Name: AGNES HERNANDEZ DO Member Role: Primary Care Physician Address: Address: [address] [place] [address] Care Team Related Persons Name: CYNDI DUNLAP Care Team Personnel Name: [facility] Sales Representative Agnes PT 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 [employer]per [employer] Advanced Member Role: Other Name: Alissa Mc Position: Bed Management Member Role: Other Name: DAYLIN COOK MD Member Role: Cardiothoracic Surgeon Address: Address: [address] [place] [address] Cardiothoracic Surgery [address] Name: AGNES HERNANDEZ DO Member Role: Primary Care Physician Address: Address: [address] [place] [address] Care Team Related Persons Name: CYNDI DUNLAP Care Team Personnel Name: [facility] Sales Representative Agnes PT 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 [employer] Advanced Member Role: Other Name: Alissa Mc Position: Bed Management Member Role: Other Name: DAYLIN COOK MD Member Role: Cardiothoracic Surgeon Address: Address: [address] [place] [address] [address] Name: AGNES HERNANDEZ DO Member Role: Primary Care Physician Address: Address: [address] [place] [address] Care Team Related Persons Name: CYNDI DUNLAP Care Team Personnel Name: [facility] Sales Representative Agnes PT 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 [employer] Advanced Member Role: Other Name: Alissa Mc Position: Bed Management Member Role: Other Name: DAYLIN COOK MD Member Role: Cardiothoracic Surgeon Address: [address] [place] [address] Telecom: Name: AGNES HERNANDEZ DO Member Role: Primary Care Physician Address: [address] [place] [address] Telecom: Care Team Related Persons Name: CYNDI DUNLAP Care Team Personnel Name: [facility] Sales Representative Agnes PT 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 [employer] Advanced Member Role: Other Name: Alissa Mc Position: Bed Management Member Role: Other Name: DAYLIN COOK MD Member Role: Cardiothoracic Surgeon Address: [address] [place] [address] Telecom: Name: AGNES HERNANDEZ DO Member Role: Primary Care Physician Address: [address] [place] [address] Telecom: Care Team Related Persons Name: CYNDI DUNLAP Care Team Personnel Name: Elodia Scott Clerk Agnes PT 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 [employer] Advanced Member Role: Other Name: Alissa Mc Position: Bed Management Member Role: Other Name: DAYLIN COOK MD Member Role: Cardiothoracic Surgeon Address: [address] [place] [address] [address] Telecom: Name: AGNES HERNANDEZ DO Member Role: Primary Care Physician Address: [address] [place] [address] Telecom: Care Team Related Persons Name: CYNDI DUNLAP Care Team Personnel Name: Elodia Scott Clerk Agnes PT 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 [employer]per [employer] Advanced Member Role: Other Name: Alissa Mc Position: Bed Management Member Role: Other Name: DAYLIN COOK MD Member Role: Cardiothoracic Surgeon Address: [address] [place] [address] [address] Telecom: Name: AGNES HERNANDEZ DO Member Role: Primary Care Physician Address: [address] [place] [address] Telecom: Care Team Related Persons Name: CYNDI DUNLAP Care Team Personnel Name: [facility] Sales Representative Agnes PT 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 [employer] Advanced Member Role: Other Name: Alissa Mc Position: Bed Management Member Role: Other Name: DAYLIN COOK MD Member Role: Cardiothoracic Surgeon Address: [address] [place] [address] [address] [facility] [place] [address]- Telecom: Name: AGNES AWAD DO Position: P4 Physician - Primary Care Member Role: Primary Care Physician Address: [address] [place] [address] Telecom: Name: AMALIA BARRERA MD Position: P4 Physician - Neurosurgery Member Role: Neurosurgeon Address: [address] [facility] [address] [place] [place] [address]- Telecom: Name: AMELIE RUBY APRN-HOME ECONOMIST Member Role: Life Skills Consultant Address: [address] [place] [address] [address] [place] [address] [place] Telecom: Care Team Related Persons Name: CYNDI DUNLAP Care Team (unrecognized sect ion and content) Care Team Personnel Name: Elodia Scott Clelamine Alarcon PT 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 [employer]per [employer] Advanced Member Role: Other Name: DAYLIN COOK MD Position: P4 Physician - Cardiothoracic Surgery Med Service: Active Provider Member Role: Cardiothoracic Surgeon Address: Address: [address] [place] [address] [address] [facility] Cardiothoracic Surgery [place] [id number]- Name: AGNES HERNANDEZ DO Member Role: Primary Care Physician Address: Address: [address] [place] [address]- Care Team Related Persons Name: CYNDI DUNLAP Care Team Personnel Name: Elodia Scott PT 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 Helper [employer] Advanced Member Role: Other Name: AGNES HERNANDEZ DO Member Role: Primary Care Physician Address: Address: [address] [place] [id number] Care Team Related Persons Name: CYNDI DUNLAP INFORMATION SOURCE (unrecogn ized section and content) DATE CREATED AUTHOR 12/11/2023 [facility] ([place]) DATE CREATED AUTHOR AUTHOR'S ORGANIZ ATION 07/18/2024 [facility] DATE CREATED AUTHOR AUTHOR'S ORGANIZ ATION 08/13/2024 [facility] DATE CREATED AUTHOR AUTHOR'S ORGANIZ ATION 09/26/2024 [facility] FOR RECORDS PERTAINING TO PATIENTS WHO ARE [...] BE BASED ON THE PRIMARY CLINICAL RECORDS. [facility] [employer], [facility]. provides no warranty or guarantee of the accuracy or completeness of information in this document.
== END | disposition home or self-care (01) ==
LOC: CVS 13:57 → CT 13:57
PROVIDERS: PCP Student in an Organized Health Care Education/Training Program; Referring Provider Nurse Practitioner Acute Care; Visit Provider Nurse Practitioner Acute Care
DX: F17.210 Nicotine dependence, cigarettes, uncomplicated (principal)
CPT/HCPCS: 71271

== ENCOUNTER → 2024-10-01 | Outpatient (CLI) | payer MEDICARE, MEDICAID, SELFPAY ==
--- NOTE | 2024-10-01 10:43 | ECHOLC_ITS ---
Reason For Study Reason For Study: SOB Procedure This was a limited 2D transthoracic echocardiogram. The study was technically difficult. Contrast injection was performed. Exam performed in department. Left Ventricle Normal LV size. The left ventricular ejection fraction is 55 %. No regional wall motion abnormalities noted. Right Ventricle Normal RV size. Normal systolic function. Atria Normal left atrium. Normal right atrium. Mitral Valve Normal mitral valve. Great Vessels Normal aortic root. Pericardium/Pleural No pericardial effusion. Medication 22 gauge I.V. with prn adaptor inserted into right arm. Diluted definity 1.5ml given slow IV push to enhance endocardial definition. MMode/2D Measurements & Calculations LVIDd: 4.5 cm IVSd: 1.2 cm LAV(MOD- bp): 49.3 ml LVIDs: 3.6 cm LVPWd: 0.93 cm LAV(MOD- bp) Indexed: 20.9 ml/m2 RVDd: 3.3 cm FS: 19.0 % LAV(MOD- sp2): 46.1 ml LAV(MOD- sp4): 47.9 ml LVAd ap4: 39.6 cm2 SV(MOD-sp4): 81.9 ml SV(sp4- el): 86.1 ml LVLd ap4: 8.5 cm SI(MOD-sp4): 34.7 ml/m2 EDV(MOD-sp4): 149.6 ml EDV(sp4-el): 157.4 ml LVAs ap4: 25.2 cm2 LVLs ap4: 7.6 cm ESV(MOD-sp4): 67.7 ml ESV(sp4-el): 71.3 ml EF(MOD-sp4): 54.7 % EF(sp4-el): 54.7 % LA A4 area: 17.7 cm2 RA A4 area: 15.8 cm2 TAPSE: 1.0 cm Doppler Measurements & Calculations PA V2 max: 111.5 cm/sec PA V2 mean: 79.2 cm/sec ECHO/Echo Limited w/Contrast Interpretation Summary Normal LV size. The left ventricular ejection fraction is 55 %. Contrast injection was performed. Ordering Physician: Amelie Ruby Referring Physician: Amelie Ruby Performed By: Quintin Haddad RCS
== END | disposition home or self-care (01) ==
LOC: CVS 10:41
PROVIDERS: PCP Student in an Organized Health Care Education/Training Program; Referring Provider Nurse Practitioner Acute Care; Visit Provider Nurse Practitioner Acute Care
DX: R06.02 Shortness of breath (principal)
CPT/HCPCS: 93308; Q9957; A4216; C8924

== ENCOUNTER → 2024-12-04 | Outpatient (CLI) | payer MEDICARE, MEDICAID, SELFPAY ==
--- NOTE | 2024-12-04 15:00 | CT_ITS ---
PROCEDURE: CHEST WITH CONTRAST 12/04/2024 REASON FOR EXAM: LUNG CARCINOID TECHNIQUE: CHEST WITH CONTRAST Coronal and Sagittal reconstruction series were provided. CONTRAST: Isovue-300 VOLUME: 100 mL One or more dose reduction techniques were used (e.g., Automated exposure control, adjustment of the mA and/or kV according to patient size, use of iterative reconstruction technique). RADIATION DOSE SUMMARY: CTDlvol: 18.35 mGy DLP: 758.5 mGycm COMPARISON: Prior study dated September 27, 2024. FINDINGS: Hardware: None Heterogeneous enlargement of the right lobe of the thyroid gland with a substernal extension. Lymph nodes: No suspicious mediastinal or axillary lymphadenopathy. Heart and Vasculature: The heart is nonenlarged. There is evidence of coronary artery calcification. Atherosclerotic calcifications of the thoracic aorta. Pulmonary arteries are unremarkable. Lungs and Airways: Stable volume loss in the left hemithorax with shift of the heart and mediastinal structures towards the left side of the midline. Stable 4 mm nodular density in the lateral aspect of the right upper lobe as seen on axial image number 42 stable 3 mm nodule in the posterior aspect of the left upper lobe as well as a 3 mm nodule in the posterior left lower lobe. Stable 6 mm nodule in the right lower lobe. No new nodular densities are seen. Pleura: No pleural effusion. Upper Abdomen: Unremarkable Bones: Degenerative changes of the thoracic spine. CT/Chest WITH Contrast IMPRESSION: Coronary artery calcification (CAC) is is present Stable examination. Reading Location: [id number]
[2024-12-04 15:39] LABS: CREATININE FINGERSTICK 1.4 mg/dL (0.55-1.02); EGFR FINGERSTICK 40.0000 mL/min (>60)
== END | disposition home or self-care (01) ==
LOC: CT 14:18
PROVIDERS: PCP Student in an Organized Health Care Education/Training Program; Visit Provider Internal Medicine Medical Oncology
DX: D3A.090 Benign carcinoid tumor of the bronchus and lung (principal); D47.2 Monoclonal gammopathy; Z85.3 Personal history of malignant neoplasm of breast
CPT/HCPCS: 71260; Q9967; A4216